=== PATIENT | female | born 1970 | race Two or more races ===

== ENCOUNTER 2020-01-30 10:09 | Outpatient (REF) | payer OTHER, SELFPAY | END 2020-01-30 10:10 | disposition home or self-care (01) | LOC: HO.LAB 10:09 | PROVIDERS: PCP Internal Medicine; Visit Provider Internal Medicine | DX: Z20.828 Contact with and (suspected) exposure to other viral communicable diseases (principal) | CPT/HCPCS: 36415; 87635 ==

== ENCOUNTER 2020-02-19 15:07 | Outpatient (REF) | payer OTHER, SELFPAY | END 2020-02-19 15:08 | disposition home or self-care (01) | LOC: HO.LAB 15:07 | PROVIDERS: Visit Provider Nurse Practitioner Family | DX: N39.0 Urinary tract infection, site not specified (principal); R30.0 Dysuria | CPT/HCPCS: 87086; 87088; 87186 ==

== ENCOUNTER 2020-02-25 12:39 | Outpatient (REF) | payer OTHER, SELFPAY ==
--- NOTE | 2020-02-25 | US_ITS ---
EXAMINATION: US RETROPERITONEAL LIMITED (RENAL ONLY) CLINICAL INFORMATION: Renal stone, renal cyst. COMPARISON: CT abdomen and pelvis 12/18/2019. Renal ultrasound 10/10/2019 and 03/12/2019. TECHNIQUE: Real-time imaging of the kidneys. FINDINGS: RIGHT KIDNEY: 12.4 x 6.3 x 5.4 cm (SAG x AP x TRV). The kidney is normal in size, contour, and echogenicity. Renal cortical thickness is normal. There is mild pelvic fullness. There are numerous anechoic cysts. The largest cyst in the upper pole measuring 4.4 x 3.6 x 3.7 cm and a midpole measures 3.6 x 3.3 x 3.3 cm. There is a complex cyst in the [id number] pole measuring 3.0 x 2.2 x 2.8 cm. There are a few echogenic stones nonobstructive measuring 0.4 x 0.2 cm in midpole and 0.5 x 0.3 cm in the upper pole. LEFT KIDNEY: Surgically absent. US/US renal BI IMPRESSION: Multiple right renal cysts with a complex renal cyst [id number] pole.
== END 2020-02-25 12:40 | disposition home or self-care (01) ==
LOC: HO.US 12:39
PROVIDERS: PCP Internal Medicine; Visit Provider Urology
DX: N20.0 Calculus of kidney (principal); N28.1 Cyst of kidney, acquired
CPT/HCPCS: 76775

== ENCOUNTER → 2020-03-11 08:01 | Outpatient (BNVA) | payer OTHER, SELFPAY | PROVIDERS: PCP Internal Medicine; Referring Provider Internal Medicine; Visit Provider Surgery | DX: Z76.89 Persons encountering health services in other specified circumstances (principal) ==

== ENCOUNTER → 2020-03-13 08:34 | Outpatient (BNVA) | payer OTHER, SELFPAY | PROVIDERS: PCP Internal Medicine; Referring Provider Internal Medicine; Visit Provider Dietitian, Registered | DX: Z76.89 Persons encountering health services in other specified circumstances (principal) ==

== ENCOUNTER 2020-04-17 11:18 | Outpatient (REF) | payer OTHER, SELFPAY ==
[2020-04-17 11:38] LABS: Basophils Absolute Auto 0.1 X10*3/uL (0.0-0.2); Eosinophils Absolute Auto 0.1 X10*3/uL (0.0-0.4); Eosinophils Percent Auto 1.7 % (0-4); Hematocrit 44.2 % (37-47); Hemoglobin 14.9 g/dl (12.0-16.0); Imm Gran Abs Auto 0.01 X10*3/uL (0.00-0.03); Imm Gran Pct Auto 0.2 % (0.0-0.4); Lymphocytes Absolute Auto 2.1 X10*3/uL (1.2-4.9); Lymphocytes Percent Auto 35.2 % (20-40); MANUAL DIFF FLAG NO; Mean Corpuscular HGB Conc 33.7 g/dl (31.0-35.0); Mean Corpuscular Hemoglobin 33.3 pg (27.0-33.0); Mean Corpuscular Volume 98.9 fL (80-98); Mean Platelet Volume 9.6 fL (9.4-12.3); Monocytes Absolute Auto 0.3 X10*3/uL (0.1-1.2); Monocytes Percent Auto 5.5 % (2-11); Neutrophils Absolute Auto 3.3 X10*3/uL (2.0-8.3); Neutrophils Percent Auto 56.4 % (45-73); Platelet Count 278 X10*3/uL (160-400); Red Blood Count 4.47 X10*6/uL (4.20-5.50); Red Cell Distribution Width 11.5 % (11.0-16.0); White Blood Count 5.9 X10*3/uL (4.8-10.8)
[2020-04-17 12:04] LABS: Albumin Level 3.8 g/dL (3.5-5.0); Anion Gap 13 (12-20); Blood Urea Nitrogen 13 mg/dL (9-16); Carbon Dioxide 27 mmol/L (22-29); Chloride 105 mmol/L (96-108); Estimated Glomerular Filt Rate 56; Magnesium 1.8 mg/dL (1.6-2.6); Phosphorus 4.4 mg/dL (2.7-4.5); Potassium 4.6 mmol/l (3.3-5.1); Sodium 140 mmol/L (135-145)
[2020-04-17 12:23] LABS: Glucose Urine UA NEG (NEG); Leukocyte Esterase Urine 1+ (NEG); Nitrite Urine POS (NEG); PH 6.5 (5.0-8.0); Urine Blood TRACE (NEG); Urine Ketones NEG (NEG); Urine Protein NEG (NEG-TRACE)
[2020-04-17 12:25] LABS: Appearance Urine CLOUDY; Color Urine YELLOW
[2020-04-17 12:27] LABS: Vitamin D 25-OH Total 38.2 ng/mL (>30)
[2020-04-17 12:30] LABS: Creatinine Urine 108.79 mg/dL; Microalbum/Creatinine Ratio Ur 21.1 ug/mg cr; Protein/Creatinine Ratio, Ur 0.12 (<0.2); Total Protein Urine Random 13 mg/dL (<12)
[2020-04-17 12:40] LABS: Bacteria Urine 3+ /LPF; Squamous Epithelial Cell Urine 1+ /LPF
[2020-04-17 13:13] LABS: Renal w Reflex Lab Use Only Order verified
[2020-04-20 16:03] LABS: Calcium (PTHI) 9.3 mg/dL (8.6-10.4); PTHI 53 pg/mL (14-64)
== END 2020-04-17 11:19 | disposition home or self-care (01) ==
LOC: HO.LAB 11:18
PROVIDERS: PCP Internal Medicine; Visit Provider Internal Medicine Nephrology
DX: N20.0 Calculus of kidney (principal); I12.9 Hypertensive chronic kidney disease with stage 1 through stage 4 chronic kidney disease, or unspecified chronic kidney disease; N18.30 Chronic kidney disease, stage 3 unspecified
CPT/HCPCS: 36415; 80051; 81001; 81003; 82040; 82043; 82306; 82310; 82565; 83735; 83970; 84100; 84156; 84520; 85025; 87086; 87088; 87186

== ENCOUNTER → 2020-05-07 12:54 | Outpatient (BNVA) | payer OTHER, SELFPAY | PROVIDERS: PCP Internal Medicine; Visit Provider Surgery | DX: L57.4 Cutis laxa senilis (principal) | CPT/HCPCS: 99202 ==

== ENCOUNTER 2020-05-14 10:06 | Outpatient (REF) | payer OTHER, SELFPAY ==
--- NOTE | 2020-05-14 10:10 | US_ITS ---
EXAMINATION: US RETROPERITONEAL LIMITED (RENAL ONLY) CLINICAL INFORMATION: Tubulointerstitial nephritis, not specified is acute or chronic. COMPARISON: Renal ultrasound dated 02/25/2020 and 10/10/2019. CT abdomen and pelvis without contrast dated 12/18/2019. KUB dated 01/26/2017. X-ray abdomen dated 03/05/2013. TECHNIQUE: Real-time imaging of the kidneys. FINDINGS: RIGHT KIDNEY: 12.5 x 4.6 x 5.2 cm (SAG x AP x TRV). The kidney is normal in size, contour, and echogenicity. Renal cortical thickness is normal. No hydronephrosis. There are multiple anechoic cysts. The largest cyst upper pole measures 4.7 x 3.5 x 4.1 cm, midpole cyst measures 3.6 x 3.2 x 3.3 cm. There is a complex lower pole cyst measuring 2.7 x 2.4 x 2.5 cm. There is a central septation within. There are 2 echogenic stones measuring 0.7 in the midpole and 0.3 cm in the lower pole. No caliectasis seen. LEFT KIDNEY: Surgically removed. US/US renal BI IMPRESSION: 1. Multiple renal cysts. There is a lower pole cyst which appears complex with central septation. 2. Nonobstructive echogenic stones in the right kidney. 3. The left kidney has been surgically removed.
== END 2020-05-14 10:07 | disposition home or self-care (01) ==
LOC: HO.US 10:06
PROVIDERS: PCP Internal Medicine; Visit Provider Internal Medicine
DX: N12 Tubulo-interstitial nephritis, not specified as acute or chronic (principal)
CPT/HCPCS: 76775

== ENCOUNTER 2020-05-15 13:22 | Outpatient (REF) | payer OTHER, SELFPAY ==
[2020-05-15 13:29] LABS: MANUAL DIFF FLAG NO
[2020-05-15 14:27] LABS: Basophils Percent Auto 0.8 % (0-2); Eosinophils Percent Auto 0.8 % (0-4); Hematocrit 41.4 % (37-47); Hemoglobin 13.7 g/dl (12.0-16.0); Imm Gran Abs Auto 0.02 X10*3/uL (0.00-0.03); Imm Gran Pct Auto 0.4 % (0.0-0.4); Lymphocytes Absolute Auto 1.7 X10*3/uL (1.2-4.9); Lymphocytes Percent Auto 32.4 % (20-40); Mean Corpuscular HGB Conc 33.1 g/dl (31.0-35.0); Mean Corpuscular Hemoglobin 33.3 pg (27.0-33.0); Mean Corpuscular Volume 100.7 fL (80-98); Mean Platelet Volume 9.5 fL (9.4-12.3); Monocytes Absolute Auto 0.4 X10*3/uL (0.1-1.2); Monocytes Percent Auto 6.8 % (2-11); Neutrophils Percent Auto 58.8 % (45-73); Platelet Count 267 X10*3/uL (160-400); Red Blood Count 4.11 X10*6/uL (4.20-5.50); Red Cell Distribution Width 11.5 % (11.0-16.0); White Blood Count 5.2 X10*3/uL (4.8-10.8)
[2020-05-15 14:29] LABS: Glucose Urine UA NEG (NEG); Leukocyte Esterase Urine 1+ (NEG); Nitrite Urine POS (NEG); Specific Gravity - Urine 1.025 (1.005-1.025); Urine Blood 1+ (NEG); Urine Ketones NEG (NEG); Urine Protein NEG (NEG-TRACE)
[2020-05-15 14:34] LABS: Appearance Urine CLOUDY; Color Urine YELLOW
[2020-05-15 14:55] LABS: Alanine Aminotransferase 28 U/L (0-31); Albumin Level 3.6 g/dL (3.5-5.0); Alkaline Phosphatase 101 U/L (39-117); Anion Gap 13 (12-20); Aspartate Amino Transferase 19 U/L (5-31); Bilirubin Total 0.8 mg/dL (0.0-1.0); Blood Urea Nitrogen 16 mg/dL (9-16); Calcium 8.8 mg/dL (8.4-10.2); Carbon Dioxide 29 mmol/L (22-29); Chloride 106 mmol/L (96-108); Cholesterol 163 mg/dL; Estimated Glomerular Filt Rate 50; Glucose Fasting 98 mg/dL (60-99); HDL Cholesterol 52 mg/dL; LDL Cholesterol Calculated 96 mg/dl; Potassium 4.9 mmol/l (3.3-5.1); Sodium 143 mmol/L (135-145); Total Protein 6.1 g/dL (6.5-8.0); Triglycerides 75 mg/dL
[2020-05-15 15:17] LABS: TSH reflex Free T4 0.82 mIU/mL (0.32-4.0); Vitamin D 25-OH Total 31.3 ng/mL (>30)
[2020-05-15 15:22] LABS: Bacteria Urine 2+ /LPF; RBC Urine 0-2 /HPF (0); Squamous Epithelial Cell Urine TRACE /LPF
[2020-05-15 15:24] LABS: Calcium Oxalate Crystals Urine 1+ /LPF
[2020-05-15 15:45] LABS: Folate 6.5 ng/mL (> or = 4.0)
[2020-05-15 16:38] LABS: Vitamin B12 > 2000 pg/mL (200-900)
== END 2020-05-15 13:23 | disposition home or self-care (01) ==
LOC: HO.LAB 13:22
PROVIDERS: PCP Internal Medicine; Visit Provider Internal Medicine
DX: I10 Essential (primary) hypertension (principal); E78.5 Hyperlipidemia, unspecified; E66.3 Overweight; G57.30 Lesion of lateral popliteal nerve, unspecified lower limb; E55.9 Vitamin D deficiency, unspecified
CPT/HCPCS: 36415; 80053; 80061; 81001; 81003; 82306; 82607; 82746; 84443; 85025; 87086; 87088; 87186

== ENCOUNTER 2020-05-25 15:04 | Outpatient (REF) | payer OTHER, SELFPAY ==
[2020-05-25 16:06] LABS: Glucose Urine UA NEG (NEG); Leukocyte Esterase Urine 1+ (NEG); Nitrite Urine NEG (NEG); UACC Culture Trigger YES; Urine Blood 1+ (NEG); Urine Ketones NEG (NEG); Urine Protein NEG (NEG-TRACE)
[2020-05-25 16:19] LABS: Albumin Level 3.8 g/dL (3.5-5.0); Anion Gap 11 (12-20); Blood Urea Nitrogen 16 mg/dL (9-16); Calcium 8.6 mg/dL (8.4-10.2); Carbon Dioxide 29 mmol/L (22-29); Chloride 106 mmol/L (96-108); Estimated Glomerular Filt Rate > 60; Phosphorus 3.7 mg/dL (2.7-4.5); Potassium 4.8 mmol/l (3.3-5.1); Sodium 141 mmol/L (135-145)
[2020-05-25 16:39] LABS: Appearance Urine CLOUDY; Color Urine YELLOW
[2020-05-25 16:39] LABS: Renal w Reflex Lab Use Only Order verified
[2020-05-25 16:45] LABS: Bacteria Urine 4+ /LPF; Squamous Epithelial Cell Urine 1+ /LPF; WBC Urine 50-75 /HPF (0-4)
== END 2020-05-25 15:05 | disposition home or self-care (01) ==
LOC: HO.LAB 15:04
PROVIDERS: PCP Internal Medicine; Visit Provider Internal Medicine Nephrology
DX: N20.0 Calculus of kidney (principal); I12.9 Hypertensive chronic kidney disease with stage 1 through stage 4 chronic kidney disease, or unspecified chronic kidney disease; N18.30 Chronic kidney disease, stage 3 unspecified; N13.30 Unspecified hydronephrosis; R30.0 Dysuria
CPT/HCPCS: 36415; 80051; 81001; 81003; 82040; 82306; 82310; 82565; 83735; 84100; 84520; 87086; 87088; 87186

== ENCOUNTER 2020-05-27 09:56 | Outpatient (REF) | payer OTHER, SELFPAY ==
[2020-05-27 10:26] LABS: Total Volume 24 Hour Urine 1025 mL
[2020-05-27 11:32] LABS: Creatinine, mg/dL 93.29; Phosphorus mg/dL 44.8 mg/dL; Phosphorus, 24 Hr Urine 0.5 G/Day (0.4-1.3); Sodium 24 Hr Urine 109.7 mmol/Day (40-220)
[2020-05-27 11:54] LABS: Creatinine, mg/dL 93.83; Uric Acid, 24 Hr Urine 324.9 mg/Day (250-750); Uric Acid, mg/dL 31.7 mg/dL
[2020-05-28 16:47] LABS: Calcium, 24 Hr Urine 174 mg/24 h; Calcium/Creatinine Ratio 168 mg/g creat (30-275); Creatinine 24Hr Urine 1.04 g/24 h (0.50-2.15)
[2020-05-31 10:28] LABS: 24hr Urine Total Volume 1025 mL/24 h; Oxalic Acid 24 Urine 18.5 mg/24 h (3.6-38.0)
[2020-06-04 14:22] LABS: 24hr Urine Total Volume 1025 mL; Citric Acid, 24hr Urine 55 mg/24 h (100-1300); Citric Acid/Creat Ratio 24U 53 mg/g creat (180-1070); Creatinine, 24U 1.05 g/24 h (0.50-2.15)
== END 2020-05-27 09:57 | disposition home or self-care (01) ==
LOC: HO.LNP 09:56
PROVIDERS: Visit Provider Internal Medicine Nephrology
DX: I12.9 Hypertensive chronic kidney disease with stage 1 through stage 4 chronic kidney disease, or unspecified chronic kidney disease (principal); N18.30 Chronic kidney disease, stage 3 unspecified; N13.2 Hydronephrosis with renal and ureteral calculous obstruction
CPT/HCPCS: 82340; 82507; 83945; 84105; 84300; 84560

== ENCOUNTER → 2020-06-12 08:34 | Outpatient (BNVA) | payer OTHER, SELFPAY | PROVIDERS: PCP Internal Medicine; Visit Provider Physician Assistant ==

== ENCOUNTER → 2020-06-25 09:56 | Outpatient (BNVA) | payer OTHER, SELFPAY | PROVIDERS: Visit Provider Urology | DX: N20.0 Calculus of kidney (principal) | CPT/HCPCS: 99202 ==

== ENCOUNTER 2020-07-06 11:04 | Day surgery (SDC) | payer OTHER, SELFPAY ==
[2020-07-01 12:39] VITALS: BMI 25.3
--- NOTE | ~2020-07-06 | FL_ITS ---
EXAMINATION: XR FLUOROSCOPY WITH IMAGES CLINICAL INFORMATION: Right retrograde pyelogram COMPARISON: CT 12/18/2019. Ultrasound 05/14/2020. TECHNIQUE: Fluoroscopy performed by Dr. Tomy Richter. Fluoroscopy time: 44.6 seconds Images: 2 FINDINGS: On the provided images there is a right ureteral stent in place. Left pelvic phlebolith. Small amount of contrast in the bladder noted. Right abdominal surgical clips. FL/FL guidance in OR IMPRESSION: Right ureteral stent in place. Please refer to procedural report for further information.
[2020-07-06 13:05] LABS: UPreg QC Valid YES; Urine Pregnancy NEGATIVE (NEGATIVE)
[2020-07-06 13:17] VITALS: BP 115/79; PULSE 63; RESP 18; TEMP 36.2; O2SAT 98
[2020-07-06] MEDS: levoFLOXacin 500 MG TABLET PO (13:25)
[2020-07-06] MEDS: Acetaminophen 325 MG TABLET 650 MG PO (13:25)
[2020-07-06] MEDS: Lactated Ringers 1,000 ML 50 ML IV (13:44)
--- NOTE | 2020-07-06 14:54 | MHC.SHP ---
Pre-Procedural Eval Section A The patient is an INPATIENT: No Changes since office visit: No Cold of Flu in the past 2 weeks, No New Medical Problems, No Changes in Medication and No Patient answered all questions The History & Physical has been completed within 30 days and I have reviewed it.: Yes Section B Chief Complaint: kidney stone Allergies: Allergies Allergy/AdvReac Type Severity Reaction Status Date / Time No Known Allergies Allergy Verified 06/30/20 16:03 Plan Diagnosis/Plan: Unchanged I have reviewed the history and physical and performed a pertinent physical examination on my patient. No changes have occurred unless specified. Right retrograde, ureteroscopy, laser lithotripsy, stent placement
--- NOTE | 2020-07-06 14:54 | HO.ANESPROP2 ---
[facility] Active Problems Active Problems: All Active Problems (Updated 07/01/20 @ 12:35 by Elisabeth Membreno) Urinary tract infection (Acute) Dysuria (Acute) Skin laxity (Acute) Nephrolithiasis (Acute) History of gastric bypass (Acute ~2008) Dyspareunia, female (Acute) Painful sexual intercourse (Acute) Dyspareunia (Acute) Pyelonephritis (Acute) Ingrown toenail (Acute) Iron deficiency anemia (Acute) Overweight (BMI 25.0-29.9) (Acute) Major depression, recurrent (Acute) Anxiety (Acute) Insomnia (Acute) Tremor (Acute) Orthostatic hypotension (Acute) Incisional hernia without obstruction or gangrene (Acute) Avascular necrosis of femoral head (Acute) Bilateral carpal tunnel syndrome (Acute) Peroneal neuropathy (Acute) Lumbar degenerative disc disease (Acute) Vitamin D deficiency (Acute) GERD (gastroesophageal reflux disease) (Acute) Migraine (Acute) Hyperlipidemia (Acute) Past Medical History Medical History (Updated 07/01/20 @ 12:35 by Elisabeth Membreno) Anxiety Avascular necrosis of femoral head Bilateral carpal tunnel syndrome Dyspareunia Dyspareunia, female GERD (gastroesophageal reflux disease) Hx of schizophrenia Hyperlipidemia Incisional hernia without obstruction or gangrene Ingrown toenail Insomnia Iron deficiency anemia Lumbar degenerative disc disease Major depression, recurrent Migraine Orthostatic hypotension MIGUEL (obstructive sleep apnea) Overweight (BMI 25.0-29.9) Painful sexual intercourse Panic attacks Peroneal neuropathy PTSD (post-traumatic stress disorder) Pyelonephritis Tremor Vitamin D deficiency Family History Family History Father Gastric cancer Mother Breast cancer Maternal Grandmother Breast cancer Maternal Aunt Breast cancer Surgical History Surgical History (Updated 07/01/20 @ 12:33 by Elisabeth Membreno) H/O left nephrectomy History of bilateral breast reduction surgery History of bladder repair surgery (~03/2015) History of bladder surgery (~10/2009) History of cholecystectomy History of endoscopy (~06/2016) History of gastric bypass (~2008) History of hernia repair (~03/29/10) History of hysterectomy History of incisional hernia repair (~1999) Hx of umbilical hernia repair (~1999) S/P cystoscopy (~07/30/12) S/P laparoscopic sleeve gastrectomy S/P panniculectomy Social History Social History Alcohol intake: never Smoking Status: Never smoker Advance Directives: No Advance Directives Information Provided: No Advance Directives on File: No Meds Allergies Allergy/AdvReac Type Severity Reaction Status Date / Time No Known Allergies Allergy Verified 06/30/20 16:03 Active Medications: Current Medications Generic Name Dose Route Start Last Admin Trade Name Freq PRN Reason Stop Dose Admin Fentanyl 50 mcg 07/06/20 13:32 Fentanyl Citrate/Pf 100 Mcg/2 Ml Vial IVPUSH Q5M PRN Pain, Severe (Pain Scale 7-10) Lactated Ringer's 1,000 mls @ 50 mls/hr 07/06/20 13:45 07/06/20 13:44 Lr IV 50 mls/hr .Q20H JYOTHI Administration Promethazine HCl 12.5 mg/ 50.5 mls @ 202 mls/hr 07/06/20 13:32 Sodium Chloride IV ONCE PRN Nausea and Vomiting Oxycodone HCl 5 mg 07/06/20 13:32 Oxycodone Hcl Immed Release 5 Mg Tablet PO ONCE PRN Pain, Severe (Pain Scale 7-10) Home Medications Medication Instructions Recorded Confirmed Last Taken Type albuterol sulfate 2.5 mg/0.5 mL 5 mg INHALATION Q4H 02/06/20 06/30/20 Unknown History solution for nebulization benztropine 1 mg tablet 1 mg PO BID PRN 02/06/20 06/30/20 Unknown History calcium citrate 250 mg PO DAILY 02/06/20 06/30/20 Unknown History cholecalciferol (vitamin D3) 25 25 mcg PO DAILY 02/06/20 06/30/20 Unknown History mcg (1,000 unit) capsule clonazepam 0.5 mg tablet 0.5 mg PO TID PRN 02/06/20 06/30/20 07/06/20 History duloxetine 60 mg capsule,delayed 60 mg PO DAILY 02/06/20 06/30/20 Unknown History release fludrocortisone 0.1 mg tablet 0.2 mg PO DAILY 02/06/20 06/30/20 Unknown History haloperidol 10 mg tablet 10 mg PO BEDTIME 02/06/20 06/30/20 07/06/20 History lactulose 10 gram/15 mL oral See Rx Instructions PO BEDTIME PRN 02/06/20 06/30/20 Unknown History solution mecobalamin (vitamin B12) 1,000 1,000 mcg SUBLINGUAL DAILY 02/06/20 06/30/20 Unknown History mcg disintegrating tablet,sublingual trazodone 100 mg tablet 100 mg PO BEDTIME PRN 02/06/20 06/30/20 Unknown History multivitamin 1 tab PO DAILY 06/12/20 06/30/20 Unknown History gabapentin 100 mg capsule 100 mg PO TID 06/25/20 06/30/20 07/06/20 History haloperidol 5 mg tablet 5 mg PO BID 06/25/20 06/30/20 Unknown History midodrine 5 mg tablet 5 mg PO TID 06/25/20 06/30/20 07/06/20 History prazosin 1 mg capsule 1 mg PO BEDTIME 06/25/20 06/30/20 Unknown History sumatriptan succinate 50 mg tablet 50 mg PO BID PRN 06/25/20 06/30/20 Unknown History Exam Exam Date and Time: July 06, 2020 1454 Height,Weight and Vital Signs: Height 5 ft 3 in Weight 64.864 kg Last Vital Signs Temp 97.1 F 07/06/20 13:17 Pulse 63 07/06/20 13:17 Resp 18 07/06/20 13:17 BP 115/79 07/06/20 13:17 Pulse Ox 98 07/06/20 13:17 Pertinent Lab Results Pertinent Lab Results: Laboratory Tests 07/06/20 12:45 Urine Test NEGATIVE Airway Mallampati Class: II TM Dist: >3cm Neck ROM: Full Heart: RRR Lungs: CTA BL Assessment and Plan Assessment Anesthesia Assessment: Anesthesia Plan Discussed and Chart Reviewed Final Anesthetic Review NPO: Yes ASA Class: II Final Preanesthetic Review: No Changes in Pt Med Stat and Consent Obtained/Reviewed Patient Risk: Intermediate Procedure Risk: Intermediate Anesthetic Plan Anesthetic Plan: GA Disposition: Standard PACU
--- NOTE | 2020-07-06 15:28 | PM.OP ---
Brief Operative Note Date of Service: 07/06/20 Pre-op diagnosis: Renal stone Post-op diagnosis: same Procedure: Cystoscopy, right retrograde, dilatation right ureteric orifice under fluoroscopy, right flexible ureteroscopy with stone basketing, right stent placement Implants: Right 6 x 22 cm double-J ureteric stent Surgeon: Tomy Richter MD Anesthesia: GLMA and MAC Estimated blood loss (mL): 0 Pathology: other (stone) Condition: stable Disposition: same day
--- NOTE | 2020-07-06 15:32 | W.PM.OPN ---
Operative Note Operative Note Date of Service: 07/06/20 Narrative: PreOperative Diagnosis: Right renal stone Post Operative Diagnosis: Right renal stone Procedure: - right cystoscopy, retrograde - right dilatation of ureteric orifice under fluoroscopy - right ureteroscopy, stone basketing - stent placement Surgeon: Dr Tomy Richter Anesthesia: General Indications for procedure: The pleasant 49-year-old female. Has stone in her right renal pelvis. Solitary right kidney. Left kidney had been removed previously for stones many years ago. She is aware the risks and benefits. Procedure: After informed consent was verified patient was brought to the operating placed in supine position. Anesthesia was administered per protocol. Patient was placed in modified dorsal lithotomy position and prepped and draped in a sterile fashion. Safety pause time-out and side of surgery confirmed. Antibiotics confirmed. A 22 Mongolian cystoscope was placed per urethra. The bladder was emptied. The right ureteric orifice was seen in normal position. Right ureteric orifice was cannulated retrograde examination performed. No filling defects seen of the ureter or the kidney. A Sensor wire was placed up to the right renal pelvis. The cystoscope was removed. The ureteric orifice cannulated with the inner cannula from a ureteric access sheath. The ureteric access sheath was then placed. The inner cannula was removed. A flexible ureteral scope was placed. The kidney was examined it is entirety. Stone was found in the mid to lower pole. This was able to be basketed out directly without need for laser. Two passes were made in the majority of the stone fragment pieces were removed. After this was completed sensor guidewire was placed back in the renal pelvis. The flexible ureteral scope was removed. The ureteric access sheath was removed. A 6 Mongolian by 22 cm stent with double-J was placed. Good coil was seen within the bladder. The bladder was emptied. She tolerated procedure well was extubated in the operating room and transferred in a stable condition to the recovery area. Pathology: Stone Drains: Ureteric double-J stent
[2020-07-06 15:39] VITALS: BP 122/61; PULSE 70; RESP 16; TEMP 36.5; O2SAT 100
[2020-07-06 15:45] VITALS: BP 113/59; BP 118/66; PULSE 72; PULSE 74; RESP 16; O2SAT 100
[2020-07-06 15:50] VITALS: BP 119/81; PULSE 77; RESP 16; O2SAT 99
[2020-07-06] MEDS: Phenazopyridine HCL 100 MG TABLET PO (15:52)
[2020-07-06 16:10] VITALS: BP 128/70; PULSE 58; RESP 16; TEMP 36.3; O2SAT 99
== END 2020-07-06 16:31 ==
LOC: HO.SSS 11:04
PROVIDERS: Anesthesiology; PCP Internal Medicine; Visit Provider Urology
PROC: (CPT 52356; principal; 2020-07-06 12:00)
DX: N20.0 Calculus of kidney (principal); Z90.5 Acquired absence of kidney; D50.9 Iron deficiency anemia, unspecified; I95.1 Orthostatic hypotension; F32.9 Major depressive disorder, single episode, unspecified; Z98.84 Bariatric surgery status; G47.33 Obstructive sleep apnea (adult) (pediatric); Z79.899 Other long term (current) drug therapy
CPT/HCPCS: 52356; 81025; 82365; 88300; C1758; C1769; C1894; J1100; J2250; J2405; J3010; Q9967

== ENCOUNTER → 2020-07-14 12:50 | Outpatient (BNVA) | payer OTHER, SELFPAY | PROVIDERS: PCP Internal Medicine; Visit Provider Urology | DX: Z46.6 Encounter for fitting and adjustment of urinary device (principal) | CPT/HCPCS: 52310; 99212 ==

== ENCOUNTER → 2020-08-03 07:46 | Outpatient (BNVA) | payer OTHER, SELFPAY | PROVIDERS: PCP Internal Medicine; Visit Provider Advanced Practice Midwife ==

== ENCOUNTER 2020-11-09 08:48 | Outpatient (REF) | payer OTHER, SELFPAY ==
[2020-11-09 09:31] LABS: MANUAL DIFF FLAG NO
[2020-11-09 09:38] LABS: Basophils Percent Auto 0.7 % (0-2); Eosinophils Absolute Auto 0.1 X10*3/uL (0.0-0.4); Eosinophils Percent Auto 1.7 % (0-4); Hematocrit 43.2 % (37-47); Hemoglobin 14.1 g/dl (12.0-16.0); Imm Gran Abs Auto 0.01 X10*3/uL (0.00-0.03); Imm Gran Pct Auto 0.2 % (0.0-0.4); Lymphocytes Absolute Auto 2.1 X10*3/uL (1.2-4.9); Lymphocytes Percent Auto 34.8 % (20-40); Mean Corpuscular HGB Conc 32.6 g/dl (31.0-35.0); Mean Corpuscular Hemoglobin 32.9 pg (27.0-33.0); Mean Corpuscular Volume 100.9 fL (80-98); Mean Platelet Volume 9.5 fL (9.4-12.3); Monocytes Absolute Auto 0.5 X10*3/uL (0.1-1.2); Monocytes Percent Auto 7.7 % (2-11); Neutrophils Absolute Auto 3.3 X10*3/uL (2.0-8.3); Neutrophils Percent Auto 54.9 % (45-73); Platelet Count 242 X10*3/uL (160-400); Red Blood Count 4.28 X10*6/uL (4.20-5.50); Red Cell Distribution Width 12.4 % (11.0-16.0)
[2020-11-09 09:57] LABS: Alanine Aminotransferase 26 U/L (0-31); Albumin Level 3.7 g/dL (3.5-5.0); Alkaline Phosphatase 115 U/L (39-117); Anion Gap 12 (12-20); Aspartate Amino Transferase 23 U/L (5-31); Bilirubin Total 0.6 mg/dL (0.0-1.0); Blood Urea Nitrogen 16 mg/dL (9-16); Carbon Dioxide 28 mmol/L (22-29); Chloride 108 mmol/L (96-108); Cholesterol 183 mg/dL; Estimated Glomerular Filt Rate 53; Glucose Fasting 96 mg/dL (60-99); HDL Cholesterol 70 mg/dL; LDL Cholesterol Calculated 97 mg/dl; Potassium 4.5 mmol/L (3.3-5.1); Sodium 143 mmol/L (135-145); Total Protein 6.4 g/dL (6.5-8.0); Triglycerides 84 mg/dL
[2020-11-09 10:10] LABS: Glucose Urine UA NEG (NEG); Leukocyte Esterase Urine TRACE (NEG); Nitrite Urine POS (NEG); Specific Gravity - Urine 1.025 (1.005-1.025); UACC Culture Trigger YES; Urine Blood NEG (NEG); Urine Ketones NEG (NEG); Urine Protein NEG (NEG-TRACE)
[2020-11-09 10:11] LABS: Color Urine YELLOW
[2020-11-09 10:12] LABS: Appearance Urine HAZY
[2020-11-09 10:19] LABS: TSH reflex Free T4 0.94 uIU/mL (0.32-4.0); Vitamin D 25-OH Total 31.3 ng/mL (>30)
[2020-11-09 10:27] LABS: Bacteria Urine 4+ /LPF; Calcium Oxalate Crystals Urine 1+ /LPF; RBC Urine 0 /HPF (0); Squamous Epithelial Cell Urine 2+ /LPF
== END 2020-11-09 08:49 | disposition home or self-care (01) ==
LOC: HO.LAB 08:48
PROVIDERS: PCP Internal Medicine; Visit Provider Internal Medicine
DX: Z00.00 Encounter for general adult medical examination without abnormal findings (principal); E55.9 Vitamin D deficiency, unspecified; E78.00 Pure hypercholesterolemia, unspecified; E66.3 Overweight; K21.9 Gastro-esophageal reflux disease without esophagitis; K59.00 Constipation, unspecified; M51.36 Other intervertebral disc degeneration, lumbar region
CPT/HCPCS: 36415; 80053; 80061; 81001; 81003; 82306; 84443; 85025; 87086

== ENCOUNTER → 2020-11-11 14:35 | Outpatient (BNVA) | payer OTHER, SELFPAY | PROVIDERS: PCP Internal Medicine; Referring Provider Internal Medicine; Visit Provider Physician Assistant | DX: E66.3 Overweight (principal); Z98.84 Bariatric surgery status; Z68.27 Body mass index [BMI] 27.0-27.9, adult | CPT/HCPCS: 99212 ==

== ENCOUNTER 2020-11-19 12:24 | Outpatient (REF) | payer OTHER, SELFPAY ==
--- NOTE | ~2020-11-19 | MM_ITS ---
EXAMINATION: MM DIAGNOSTIC DIGITAL BREAST TOMOSYNTHESIS, BILATERAL CLINICAL INFORMATION: Due for yearly. Also follow-up probable benign decreasing calcifications 1:00 right breast mid depth. Remote history reduction mammoplasty. Family history breast cancer, sister. The lifetime risk of breast cancer based on the Tyrer-Cuzick Model is 18%. COMPARISON: Mammography: 11/19/2019, 02/01/2019, 08/03/2018, 07/26/2018 (BI-RADS 0), 07/13/2017 TECHNIQUE: Digital breast tomosynthesis is performed in both the craniocaudal and mediolateral oblique views along with computer-aided detection (CAD). Synthesized 2D images are generated from the tomosynthesis. Additional views are obtained: Right CC, magnification right CC, magnification right LM. FINDINGS: There are scattered areas of fibroglandular density (ACR BI-RADS breast composition Category b). Parenchymal pattern is similar to prior exams. No developing density or interval mass or architectural abnormality. Small benign nodule 1:00 right breast is stable. The axilla and skin contours are unremarkable. The right breast calcifications for follow-up 1:00 position are resolved. They were decreasing on prior diagnostic mammography. Other coarse calcifications just posterior to this group are also resolved. There are no suspicious calcifications remaining. Results are provided to the patient at time of visit by the technologist. MM/MM tomosynthesis diagnostic BI IMPRESSION: 1. No mammographic evidence of malignancy. 2. The right breast calcifications under surveillance show continued decrease and are benign. ASSESSMENT: BI-RADS 2: Benign RECOMMENDATION: Routine annual mammography screening. This patient's information was entered into a reminder system with a target due date for their next mammogram.
== END 2020-11-19 12:25 | disposition home or self-care (01) ==
LOC: HO.MAMMO 12:24
PROVIDERS: Visit Provider Internal Medicine
DX: R92.1 Mammographic calcification found on diagnostic imaging of breast (principal)
CPT/HCPCS: 77062; 77066

== ENCOUNTER 2020-12-02 15:13 | Outpatient (REF) | payer OTHER, SELFPAY ==
--- NOTE | ~2020-12-02 | US_ITS ---
EXAMINATION: US RETROPERITONEAL LIMITED (RENAL ONLY) CLINICAL INFORMATION: Calculus of kidney. COMPARISON: Ultrasound renal 05/14/2020 and 02/25/2020. TECHNIQUE: Real-time imaging of the kidneys. FINDINGS: RIGHT KIDNEY: 13.7 x 4.8 x 6.0 cm (SAG x AP x TRV). The kidney is normal in size, contour, and echogenicity. Renal cortical thickness is normal. No renal hydronephrosis. There are multiple anechoic cysts seen. An upper pole cyst measures 4.7 x 3.8 x 4.3 cm. The midpole cyst medially measures 3.8 x 3.6 x 3.5 cm. There is a septated cyst in the lower pole measuring 3.4 x 2.5 x 2.5 cm. A nonobstructive echogenic stone is seen in lower pole measuring 0.8 x 0.5 x 0.9 cm LEFT KIDNEY: Removed. US/US renal BI IMPRESSION: Multiple right renal cysts. There is an echogenic nonobstructive stone lower pole. The right kidney has been surgically removed.
== END 2020-12-02 15:14 | disposition home or self-care (01) ==
LOC: HO.US 15:13
PROVIDERS: Visit Provider Urology
DX: N20.0 Calculus of kidney (principal)
CPT/HCPCS: 76775

== ENCOUNTER → 2020-12-14 13:59 | Outpatient (BNVA) | payer OTHER, SELFPAY | PROVIDERS: PCP Internal Medicine | DX: N20.0 Calculus of kidney (principal) | CPT/HCPCS: 99212 ==

== ENCOUNTER → 2020-12-23 13:37 | Outpatient (BNVA) | payer OTHER, SELFPAY | PROVIDERS: Referring Provider Internal Medicine; Visit Provider Dietitian, Registered | DX: E66.3 Overweight (principal); Z68.26 Body mass index [BMI] 26.0-26.9, adult | CPT/HCPCS: 97803 ==

== ENCOUNTER → 2020-12-30 13:00 | Outpatient (BNVA) | payer OTHER, SELFPAY | PROVIDERS: PCP Internal Medicine; Visit Provider Nurse Practitioner Family | DX: M53.3 Sacrococcygeal disorders, not elsewhere classified (principal); M54.16 Radiculopathy, lumbar region | CPT/HCPCS: 99212 ==

== ENCOUNTER 2021-01-12 12:09 | Outpatient (REF) | payer OTHER, SELFPAY ==
[2021-01-12 13:03] LABS: Appearance Urine HAZY; Color Urine YELLOW; Glucose Urine UA NEG (NEG); Leukocyte Esterase Urine 1+ (NEG); Nitrite Urine NEG (NEG); Specific Gravity - Urine 1.025 (1.005-1.025); UACC Culture Trigger YES; Urine Blood NEG (NEG); Urine Ketones NEG (NEG); Urine Protein NEG (NEG-TRACE)
[2021-01-12 13:19] LABS: Bacteria Urine 4+ /LPF; RBC Urine 0 /HPF (0); Squamous Epithelial Cell Urine 1+ /LPF
== END 2021-01-12 12:10 | disposition home or self-care (01) ==
LOC: HO.LAB 12:09
PROVIDERS: PCP Internal Medicine; Visit Provider Internal Medicine
DX: R82.90 Unspecified abnormal findings in urine (principal)
CPT/HCPCS: 81001; 87086

== ENCOUNTER → 2021-01-13 11:46 | Outpatient (BNVA) | payer OTHER, SELFPAY | PROVIDERS: PCP Internal Medicine; Visit Provider Nurse Practitioner Family | DX: Z12.11 Encounter for screening for malignant neoplasm of colon (principal); K59.03 Drug induced constipation; K21.9 Gastro-esophageal reflux disease without esophagitis | CPT/HCPCS: 99202 ==

== ENCOUNTER → 2021-02-19 12:29 | Outpatient (BNVA) | payer OTHER, SELFPAY | PROVIDERS: PCP Internal Medicine; Referring Provider Internal Medicine; Visit Provider Nurse Practitioner Family | DX: K59.03 Drug induced constipation (principal); R10.13 Epigastric pain; K21.9 Gastro-esophageal reflux disease without esophagitis; D50.9 Iron deficiency anemia, unspecified; E78.5 Hyperlipidemia, unspecified; E55.9 Vitamin D deficiency, unspecified; I10 Essential (primary) hypertension; E78.00 Pure hypercholesterolemia, unspecified; Z90.49 Acquired absence of other specified parts of digestive tract; Z90.3 Acquired absence of stomach [part of] | CPT/HCPCS: 99212 ==

== ENCOUNTER 2021-03-08 08:23 | Outpatient (REF) | payer OTHER, SELFPAY ==
--- NOTE | ~2021-03-08 | US_ITS ---
EXAMINATION: US RETROPERITONEAL LIMITED (RENAL ONLY) CLINICAL INFORMATION: Calculus of kidney. COMPARISON: Renal ultrasound 12/02/2020 and 05/14/2020. CT abdomen and pelvis 12/18/2019. TECHNIQUE: Real-time imaging of the kidneys. FINDINGS: RIGHT KIDNEY: 13.3 x 5.0 x 5.2 cm (SAG x AP x TRV). The kidney is normal in size, contour, and echogenicity. Renal cortical thickness is normal. There are multiple right renal cysts. There is a 3 x 2.5 x 2.9 cm complex cyst in the lower pole with several septations. This was not appreciated on most recent ultrasound November 2020. This measured 2.7 x 2.4 x 2.5 cm on previous ultrasound May 2020 and septations may have increased as well. The remainder of the cysts represent simple cysts. Largest simple cyst measures 4.9 x 3.5 x 1.4 cm in the upper pole. No renal calculi or hydronephrosis. The previously identified right lower pole renal stone(s) is not appreciated on the current exam. LEFT KIDNEY: Surgically absent. US/US renal BI IMPRESSION: Innumerable right renal cysts. There is a 3.0 x 2.5 x 2.9 cm complex cyst in the midpole with several septations. This appears increased in size and septations appear increased compared to previous exam May 2020. The remainder of the cysts represent simple cysts. The previously identified right renal stone(s) is not appreciated.
== END 2021-03-08 08:24 | disposition home or self-care (01) ==
LOC: HO.US 08:23
PROVIDERS: PCP Internal Medicine
DX: N20.0 Calculus of kidney (principal)
CPT/HCPCS: 76775

== ENCOUNTER → 2021-04-02 08:15 | Outpatient (BNVA) | payer OTHER, SELFPAY | PROVIDERS: PCP Internal Medicine | DX: N20.0 Calculus of kidney (principal); N28.1 Cyst of kidney, acquired | CPT/HCPCS: 99212 ==

== ENCOUNTER → 2021-04-14 10:42 | Outpatient (BNVA) | payer OTHER, SELFPAY | PROVIDERS: PCP Internal Medicine; Referring Provider Physician Assistant; Visit Provider Dietitian, Registered | DX: E66.3 Overweight (principal); E63.8 Other specified nutritional deficiencies | CPT/HCPCS: 97803 ==

== ENCOUNTER 2021-04-14 12:54 | Outpatient (REF) | payer OTHER, SELFPAY ==
[2021-04-14 13:31] LABS: COVID-19 Test Negative (Negative)
== END 2021-04-14 12:55 | disposition home or self-care (01) ==
LOC: HO.LAB 12:54
PROVIDERS: Visit Provider Internal Medicine
DX: Z20.822 Contact with and (suspected) exposure to COVID-19 (principal)
CPT/HCPCS: 36415; 87635; C9803

== ENCOUNTER → 2021-04-16 10:49 | Outpatient (BNVA) | payer OTHER, SELFPAY | PROVIDERS: PCP Internal Medicine; Referring Provider Internal Medicine; Visit Provider Nurse Practitioner Family | DX: Z12.11 Encounter for screening for malignant neoplasm of colon (principal); K59.03 Drug induced constipation; K21.9 Gastro-esophageal reflux disease without esophagitis | CPT/HCPCS: 99212 ==

== ENCOUNTER 2021-04-20 11:35 | Outpatient (REF) | payer OTHER, SELFPAY | END 2021-04-20 11:36 | disposition home or self-care (01) | LOC: HO.LNP 11:35 | PROVIDERS: Visit Provider Nurse Practitioner Family | DX: K21.9 Gastro-esophageal reflux disease without esophagitis (principal) | CPT/HCPCS: 87338 ==

== ENCOUNTER 2021-04-20 14:00 | Outpatient (RCR) | payer OTHER, SELFPAY ==
--- NOTE | 2021-05-05 14:49 | MHC.PT.DC ---
[facility] Portal Office [place] Office [place] Office [address] Dimitrios Chandler [address] [phone] F: [phone] F: [phone] F: [phone] F: [phone] Physical Therapy Discharge Report Diagnosis: RIGHT HIP PAIN Date of Surgery: na Date of Evaluation: 03/15/21 Date of Discharge: 05/05/21 Treatments to Date: 10 Cancellations to Date: 0 No Shows to Date: 0 Discharge Status: Patient Elected to Stop Discharge Summary: JEREMÍAS HAD MINIMAL SYMPTOM REDUCTION IN THERAPY. AT LAST ATTENDED VISIT SHE WAS VERY SHAKY, ANXIOUS AND THE TREATING THERAPIST WAS UNABLE TO PROGRESS TREATMENT. JEREMÍAS CHOSE TO NOT SCHEDULE FURTHER VISITS AT THAT TIME. SHE DOES HAVE A HOME PROGRAM OF GENTLE STRETCHES AND STRENGTHENING EXERCISES WHICH SHE MAY CONTINUE INDEPENDENTLY. Electronically signed by: CEZAR DE LOS SANTOS PT, DPT Please sign and return to therapist. Thank you for your referral.
== END 2021-05-05 14:49 | disposition home or self-care (01) ==
LOC: HO.PT 14:00
PROVIDERS: PCP Internal Medicine; Visit Provider Internal Medicine
DX: M51.36 Other intervertebral disc degeneration, lumbar region (principal)
CPT/HCPCS: 97110; 97140; 97162; 97530

== ENCOUNTER → 2021-05-10 14:27 | Outpatient (BNVA) | payer OTHER, SELFPAY | PROVIDERS: PCP Internal Medicine; Visit Provider Anesthesiology | DX: M46.1 Sacroiliitis, not elsewhere classified (principal); M47.816 Spondylosis without myelopathy or radiculopathy, lumbar region | CPT/HCPCS: 99212 ==

== ENCOUNTER → 2021-05-12 10:45 | Outpatient (BNVA) | payer OTHER, SELFPAY | PROVIDERS: PCP Internal Medicine; Referring Provider Physician Assistant; Visit Provider Dietitian, Registered | DX: E66.3 Overweight (principal) | CPT/HCPCS: 97803 ==

== ENCOUNTER → 2021-05-21 10:43 | Outpatient (BNVA) | payer OTHER, SELFPAY | PROVIDERS: PCP Internal Medicine; Referring Provider Internal Medicine; Visit Provider Nurse Practitioner Family | DX: K21.9 Gastro-esophageal reflux disease without esophagitis (principal); K59.09 Other constipation; K64.9 Unspecified hemorrhoids | CPT/HCPCS: 99212 ==

== ENCOUNTER 2021-06-03 10:13 | Outpatient (REF) | payer OTHER, SELFPAY ==
[2021-06-03 10:31] LABS: MANUAL DIFF FLAG NO
[2021-06-03 10:45] LABS: Basophils Absolute Auto 0.1 X10*3/uL (0.0-0.2); Basophils Percent Auto 0.9 % (0-2); Eosinophils Absolute Auto 0.1 X10*3/uL (0.0-0.4); Eosinophils Percent Auto 1.1 % (0-4); Hematocrit 46.6 % (37.0-47.0); Hemoglobin 15.4 g/dl (12.0-16.0); Imm Gran Abs Auto 0.01 X10*3/uL (0.00-0.03); Imm Gran Pct Auto 0.2 % (0.0-0.4); Lymphocytes Absolute Auto 1.7 X10*3/uL (1.2-4.9); Lymphocytes Percent Auto 30.4 % (20-40); Mean Corpuscular Hemoglobin 32.8 pg (27.0-33.0); Mean Corpuscular Volume 99.4 fL (80.0-98.0); Mean Platelet Volume 9.5 fL (9.4-12.3); Monocytes Absolute Auto 0.4 X10*3/uL (0.1-1.2); Neutrophils Absolute Auto 3.3 x10*3/uL (2.0-8.3); Neutrophils Percent Auto 60.4 % (45-73); Platelet Count 269 X10*3/uL (160-400); Red Blood Count 4.69 X10*6/uL (4.20-5.50); Red Cell Distribution Width 11.7 % (11.0-16.0); White Blood Count 5.5 X10*3/uL (4.8-10.8)
[2021-06-03 11:12] LABS: Alanine Aminotransferase 210 U/L (0-31); Albumin Level 4.1 g/dL (3.5-5.0); Alkaline Phosphatase 205 U/L (39-117); Anion Gap 12 (12-20); Aspartate Amino Transferase 118 U/L (5-31); Bilirubin Total 0.7 mg/dL (0.0-1.0); Blood Urea Nitrogen 17 mg/dL (9-16); Calcium 9.5 mg/dL (8.4-10.2); Carbon Dioxide 30 mmol/L (22-29); Chloride 102 mmol/L (96-108); Cholesterol 172 mg/dL; Estimated Glomerular Filt Rate 42; Glucose Fasting 99 mg/dL (60-99); HDL Cholesterol 60 mg/dL; LDL Cholesterol Calculated 93 mg/dl; Potassium 4.4 mmol/L (3.3-5.1); Sodium 140 mmol/L (135-145); Total Protein 7.1 g/dL (6.5-8.0); Triglycerides 95 mg/dL
[2021-06-03 11:18] LABS: Appearance Urine CLOUDY; Color Urine YELLOW; Glucose Urine UA NEG (NEG); Leukocyte Esterase Urine 1+ (NEG); Nitrite Urine NEG (NEG); PH 5.5 (5.0-8.0); Specific Gravity - Urine 1.025 (1.005-1.025); UACC Culture Trigger YES; Urine Blood NEG (NEG); Urine Ketones NEG (NEG); Urine Protein NEG (NEG-TRACE)
[2021-06-03 11:29] LABS: Erythrocyte Sedimentation Rate 7 MM/HR (0-20); Vitamin D 25-OH Total 36.9 ng/mL (>30)
[2021-06-03 11:51] LABS: Bacteria Urine 3+ /LPF; Mucus Urine 1+ /LPF; RBC Urine 0 /HPF (0); Squamous Epithelial Cell Urine 2+ /LPF
[2021-06-03 11:51] LABS: Folate 6.2 ng/mL (> or = 4.0); Vitamin B12 961 pg/mL (200-900)
== END 2021-06-03 10:14 | disposition home or self-care (01) ==
LOC: HO.LAB 10:13
PROVIDERS: Visit Provider Internal Medicine
DX: E78.00 Pure hypercholesterolemia, unspecified (principal); I10 Essential (primary) hypertension; G57.30 Lesion of lateral popliteal nerve, unspecified lower limb; R41.3 Other amnesia; M51.36 Other intervertebral disc degeneration, lumbar region; E55.9 Vitamin D deficiency, unspecified
CPT/HCPCS: 36415; 80053; 80061; 81001; 82306; 82607; 82746; 84443; 85025; 85652; 87086

== ENCOUNTER 2021-06-07 15:21 | Outpatient (REF) | payer OTHER, SELFPAY ==
[2021-06-07 16:41] LABS: Appearance Urine CLEAR; Color Urine YELLOW; Glucose Urine UA NEG (NEG); Leukocyte Esterase Urine TRACE (NEG); Nitrite Urine NEG (NEG); PH 5.5 (5.0-8.0); Specific Gravity - Urine 1.025 (1.005-1.025); UACC Culture Trigger YES; Urine Blood NEG (NEG); Urine Ketones NEG (NEG); Urine Protein NEG (NEG-TRACE)
[2021-06-07 16:59] LABS: Bacteria Urine 3+ /LPF; Hyaline Casts Urine 0-2 /LPF; RBC Urine 0-2 /HPF (0); Squamous Epithelial Cell Urine TRACE /LPF
[2021-06-08 10:08] LABS: HBS Num1 1.81 mIU/mL (0-7.99); HBc Num1 0.11 S/CO (0.00-0.79); HBsAGNum1 0.19 S/CO (0.00-0.99); Hepatitis B Core Antibody Nonreactive (Nonreactive); Hepatitis B Surface Antigen Negative (Negative); ~HepC Num1 0.14 S/CO (0.00-0.79); ~Hepatitis B Surface Antibody NONREACTIVE (Nonreactive); ~Hepatitis C Antibody Nonreactive (Nonreactive)
[2021-06-11 09:17] LABS: Hepatitis A Antibody IgM 0.22 Index (0-0.79); ~Hepatitis A Antibody IgM Nonreactive (Nonreactive)
== END 2021-06-07 15:22 | disposition home or self-care (01) ==
LOC: HO.LAB 15:21
PROVIDERS: PCP Internal Medicine; Visit Provider Internal Medicine
DX: R74.01 Elevation of levels of liver transaminase levels (principal)
CPT/HCPCS: 36415; 81001; 86704; 86706; 86709; 86803; 87086; 87340

== ENCOUNTER → 2021-06-16 08:10 | Outpatient (BNVA) | payer OTHER, SELFPAY | PROVIDERS: Visit Provider Physician Assistant ==

== ENCOUNTER 2021-06-25 09:38 | Outpatient (REF) | payer OTHER, SELFPAY ==
[2021-06-25 12:03] LABS: C Reactive Protein 0.11 mg/dL (< or = 0.50)
[2021-06-25 12:23] LABS: HIV AB/AG Nonreactive (Nonreactive); HIV Num 1 0.13 S/CO (0.00-0.99)
[2021-06-25 12:25] LABS: Ferritin 370 ng/mL (10-250)
[2021-06-28 13:31] LABS: Ceruloplasmin 33 mg/dL (18-53)
[2021-06-29 15:06] LABS: Mitochondrial Antibodies NEGATIVE (NEGATIVE)
[2021-06-30 00:16] LABS: Smooth Muscle Antibody <20 U (<20)
[2021-06-30 00:32] LABS: FIB-ALT 28 U/L (6-29); FIB-Alpha-2-Macroglobulin 216 mg/dL (106-279); FIB-Apolipoprotein A1 175 mg/dL (101-198); FIB-GGT 51 U/L (3-70); FIB-Haptoglobin 140 mg/dL (43-212); FIB-Total Bilirubin 0.5 mg/dL (0.2-1.2); Liver Fibrosis Score 0.18; Liver Fibrosis Stage F0; Nec Inflam Act Grade A0; Nec Inflam Act Score 0.11
[2021-06-30 22:01] LABS: Alk.Phos Iso. Macrohepatic 0 % (<=0); Alk.Phos Isoenzymes Bone 67 % (28-66); Alk.Phos Isoenzymes Intest 0 % (1-24); Alk.Phos Isoenzymes Liver 33 % (25-69); Alk.Phos Isoenzymes Placental 0 % (<=0); Alk.Phos Isoenzymes Total 123 U/L (37-153)
== END 2021-06-25 09:39 | disposition home or self-care (01) ==
LOC: HO.LAB 09:38
PROVIDERS: PCP Internal Medicine; Referring Provider Internal Medicine; Visit Provider Nurse Practitioner Family
DX: Z11.4 Encounter for screening for human immunodeficiency virus [HIV] (principal); R79.89 Other specified abnormal findings of blood chemistry; R74.8 Abnormal levels of other serum enzymes; K58.9 Irritable bowel syndrome, unspecified; K59.03 Drug induced constipation; R74.01 Elevation of levels of liver transaminase levels; K21.9 Gastro-esophageal reflux disease without esophagitis; K58.1 Irritable bowel syndrome with constipation
CPT/HCPCS: 36415; 81596; 82105; 82390; 82728; 84080; 86015; 86140; 86255; 86256; 87389; 99212

== ENCOUNTER 2021-07-08 12:42 | Outpatient (REF) | payer OTHER, SELFPAY ==
--- NOTE | ~2021-07-08 | US_ITS ---
EXAMINATION: US ABDOMEN COMPLETE CLINICAL INFORMATION: Elevation of levels of liver transaminase levels. COMPARISON: US retroperitoneal limited (renal only) 03/08/2021 and 12/02/2020. CT abdomen and pelvis without contrast 12/18/2019. XR abdomen KUB 01/26/2017. X-ray abdomen 03/05/2013. TECHNIQUE: Real-time imaging of the abdominal viscera. FINDINGS: PANCREAS: Normal. ABDOMINAL AORTA: The proximal, mid, and distal segments are normal in caliber. INFERIOR VENA CAVA: Visualized portions are normal. LIVER: The liver is normal in size. The liver contour is normal. Parenchymal echogenicity is normal. In the left lobe there is a septated cyst versus 2 abutting cysts. Together these measure up to 1.3 cm. No suspicious features. There is no intrahepatic biliary duct dilatation seen. GALLBLADDER: Surgically absent. COMMON BILE DUCT: Normal in caliber measuring 0.14 cm in diameter. RIGHT KIDNEY: Multiple cysts are present. Exophytic upper pole cyst measures up to 3.9 cm. Midpole cyst has a septation. This cyst measures 2.9 cm. The septation is thin without Doppler vascularity. Multiple calculi are present. At least 4 stones measuring up to 0.6 cm at the lower pole. No hydronephrosis. The kidney measures 13.6 cm in maximum dimension. LEFT KIDNEY: Surgically removed. SPLEEN: Normal. The spleen measures 9.3 cm in maximum dimension. FREE FLUID: None. US/US abdomen complete IMPRESSION: No suspicious finding of the liver. Hepatic cyst noted. Absent left kidney. Multiple right renal cysts which appear similar to prior. Multiple nonobstructing right renal calculi.
== END 2021-07-08 12:43 | disposition home or self-care (01) ==
LOC: HO.US 12:42
PROVIDERS: PCP Internal Medicine; Visit Provider Internal Medicine
DX: R74.01 Elevation of levels of liver transaminase levels (principal)
CPT/HCPCS: 76700

== ENCOUNTER 2021-07-09 12:24 | Day surgery (SDC) | payer OTHER, SELFPAY ==
[2021-07-05 11:18] VITALS: BMI 25.3
--- NOTE | ~2021-07-09 | FL_ITS ---
EXAMINATION: XR FLUOROSCOPY WITH IMAGES CLINICAL INFORMATION: Right SI joint injection. COMPARISON: None. TECHNIQUE: Fluoroscopy performed by Dr. Brando Smith. Fluoroscopy time: 0.3 minutes DAP: 2.77 mGycm2 Images: 1 FINDINGS: There is needle positioned overlying the right SI joint with contrast opacifying the soft tissues. This second image reveals FL/FL guidance in OR IMPRESSION: Fluoroscopy guidance was provided to referring physician for right SI joint injection.
--- NOTE | 2021-07-09 12:47 | P.CONAN_ITS ---
[facility] Active Problems Active Problems: All Active Problems (Updated 07/09/21 @ 12:38 by Gloria Anna RN) Urinary tract infection (Acute) Dysuria (Acute) Skin laxity (Acute) Nephrolithiasis (Acute) Overweight (Acute) Sacroiliac joint pain (Acute) Left lumbar radiculopathy (Acute) Memory impairment (Acute) Transaminitis (Acute) Spondylosis of lumbar spine (Acute) Sacroiliitis (Acute) Renal cyst (Acute) Dizziness of unknown etiology (Acute) Colon cancer screening (Acute) Chronic constipation (Acute) Constipation (Acute) History of gastric bypass (Acute ~2008) Dyspareunia, female (Acute) Painful sexual intercourse (Acute) Dyspareunia (Acute) Pyelonephritis (Acute) Ingrown toenail (Acute) Iron deficiency anemia (Acute) Overweight (BMI 25.0-29.9) (Acute) Major depression, recurrent (Acute) Anxiety (Acute) Insomnia (Acute) Tremor (Acute) Orthostatic hypotension (Acute) Incisional hernia without obstruction or gangrene (Acute) Avascular necrosis of femoral head (Acute) Bilateral carpal tunnel syndrome (Acute) Peroneal neuropathy (Acute) Lumbar degenerative disc disease (Acute) Vitamin D deficiency (Acute) GERD (gastroesophageal reflux disease) (Acute) Migraine (Acute) Hyperlipidemia (Acute) Past Medical History Medical History (Updated 07/09/21 @ 12:38 by Gloria Anna RN) Anxiety Asthma Avascular necrosis of femoral head Bilateral carpal tunnel syndrome Chronic constipation Colon cancer screening Constipation Dizziness of unknown etiology Dyspareunia Dyspareunia, female GERD (gastroesophageal reflux disease) Hx of schizophrenia Hyperlipidemia Incisional hernia without obstruction or gangrene Ingrown toenail Insomnia Iron deficiency anemia Lumbar degenerative disc disease Major depression, recurrent Migraine Orthostatic hypotension MIGUEL (obstructive sleep apnea) Overweight (BMI 25.0-29.9) Painful sexual intercourse Panic attacks Peroneal neuropathy PTSD (post-traumatic stress disorder) Pyelonephritis Renal cyst Sacroiliitis Spondylosis of lumbar spine Tremor Vitamin D deficiency Family History Family History Father Gastric cancer Mother Breast cancer Maternal Grandmother Breast cancer Maternal Aunt Breast cancer Other Mental health problem Family history of problems with anesthesia: No Surgical History Surgical History H/O left nephrectomy History of bilateral breast reduction surgery History of bladder repair surgery (~03/2015) History of bladder surgery (~10/2009) History of cholecystectomy History of endoscopy (~06/2016) History of gastric bypass (~2008) History of hernia repair (~03/29/10) History of hysterectomy History of incisional hernia repair (~1999) Hx of cystoscopy Hx of umbilical hernia repair (~1999) S/P cystoscopy (~07/30/12) S/P laparoscopic sleeve gastrectomy S/P panniculectomy History of Problems with Anesthesia: No Social History Social History Housing: Apartment Alcohol intake: never Patient Tobacco Use Status: Never used Tobacco Second Hand Smoke Exposure: No Use of substances other than those prescribed or required for medical reasons: No Are you DNR?: No Advance Directives: No Advance Directives Information Provided: Yes service: No Current occupational status: disabled Meds Allergies Allergy/AdvReac Type Severity Reaction Status Date / Time No Known Allergies Allergy Verified 07/09/21 12:43 Active Medications: Current Medications Lactated Ringer's (Lr) 1,000 mls @ 50 mls/hr IVCONT .Q20H JYOTHI Lactated Ringer's (Lr) 1,000 mls @ 50 mls/hr IVCONT .Q20H [facility] Home Medications Medication Instructions Recorded Confirmed Last Taken Type albuterol sulfate 2.5 mg/0.5 mL 5 mg INHALATION Q4H 02/06/20 06/16/21 Unknown History solution for nebulization benztropine 1 mg tablet 1 mg PO BID PRN 02/06/20 06/16/21 Unknown History duloxetine 60 mg capsule,delayed 60 mg PO DAILY 02/06/20 06/16/21 07/09/21 10:00 History release haloperidol 10 mg tablet 10 mg PO BEDTIME 02/06/20 06/07/21 07/06/20 History multivitamin 1 tab PO DAILY 06/12/20 06/16/21 Unknown History prazosin 1 mg capsule 1 mg PO BEDTIME 06/25/20 06/16/21 Unknown History Exam Exam Date and Time: July 09, 2021 1247 Height,Weight and Vital Signs: Height 5 ft 3 in Weight 64.864 kg Airway Mallampati Class: II TM Dist: >3cm Neck ROM: Full Heart: rrr Lungs: cta Assessment and Plan Assessment Anesthesia Assessment: Anesthesia Plan Discussed and Chart Reviewed Final Anesthetic Review Family History of Problems with Anesthesia: No History of Problems with Anesthesia: No NPO: Yes ASA Class: III Final Preanesthetic Review: No Changes in Pt Med Stat, Meds/Allgs Chart Reviewed and Consent Obtained/Reviewed Patient Risk: Intermediate Procedure Risk: Intermediate Anesthetic Plan Anesthetic Plan: MAC: Disposition: Standard PACU
[2021-07-09 12:53] VITALS: BP 128/82; PULSE 66; RESP 16; TEMP 36.4; O2SAT 97
[2021-07-09] MEDS: Lactated Ringers 1,000 ML 50 ML IVCONT (13:06)
--- NOTE | 2021-07-09 13:43 | MHC.SHP ---
Pre-Procedural Eval Section A Date of Service: 07/09/21 Section B Chief Complaint: Sacroiliitis Details of Present Illness: as above Relevant Family History (Specify if Yes): No Relevant Social History: None Present Medications: see Short Stay Collaborative assessment Medical History: No relevant PMH History of Previous Operations: No relevant previous surgery Allergies: Allergies Allergy/AdvReac Type Severity Reaction Status Date / Time No Known Allergies Allergy Verified 07/09/21 12:43 Review of Systems Sugical H&P ROS: Negative: Constitution, Cardiovascular, Respiratory, Neurological, Psychiatric, Hem-Onc, Allergic/Immunologic, Gastrointestinal, Genitourinary, Musculoskeletal, Integumentary, Endocrine and Eyes/Ears/Nose/Throat Exam Surgical H&P Exam: Normal: HEENT, Normal: Heart, Normal: Lungs, Normal: Extremities, Normal: Abdomen, Normal: Skin and Normal: Neurological Plan Diagnosis/Plan: Unchanged I have reviewed the history and physical and performed a pertinent physical examination on my patient. No changes have occurred unless specified.
--- NOTE | 2021-07-09 13:54 | W.PM.OPN ---
Operative Note Operative Note Date of Service: 07/09/21 Narrative: Right SI joint therapeutic injection Informed consent was explained thoroughly to the patient.? All questions about benefits and risks for the procedure were answered. ? ?Patient came to the operating room she was positioned prone on the operating table with the pillow under her pelvis.?ASA monitors were applied and patient was sedated. Her lower back and buttocks was prepped with ChloraPrep and draped with sterile towels.? Sterilely draped C-arm was brought over the operating field and sq picture of patient's pelvis was demonstrated on the screen.? For the right joint tilting C-arm contralateral to the site of the joint and 5? to the foot of the patient the most posterior portion of the joints were clearly delineated on the screen.? Skin was injected in the projection of the joint slightly medial to the location of the joint with 25 gauge 1/2 inch needle using local lidocaine 2% without epinephrine. ? ? ? After that 22 gauge 3 and 1/2 inch needle was driven to the point of interest in tunnel vision fashion.?Thee attempts were made to bring the tip of the needle into the SI joint. When needle entered the joint capsule injection of the contrast was performed demonstrating intra-articular and minimally periarticular spread of the contrast.? After that 4 cc. of bupivacaine 0.5% mixed with kenalog 40 mg was injected into the right joint.? Upon completion of the injections the needle was removed.? Sterile dressing was applied.? Upon completion of the injection patient was taken outside of the operating room to the recovery room where she recovered uneventfully.?
--- NOTE | 2021-07-09 14:22 | PM.OP ---
Brief Operative Note Date of Service: 07/09/21 Pre-op diagnosis: sacroiliitis Post-op diagnosis: same Procedure: Right SI joint steroid injection Surgeon: Brando Smith MD Anesthesia: MAC Was an Beef Cattle Farmer used for this Procedure?: No Estimated blood loss (mL): 2 Pathology: none sent Condition: stable Disposition: PACU
[2021-07-09 14:25] VITALS: BP 105/66; PULSE 72; RESP 10; TEMP 37.7; O2SAT 95
[2021-07-09 14:40] VITALS: BP 121/73; PULSE 60; RESP 16; O2SAT 98
[2021-07-09 14:55] VITALS: BP 117/78; PULSE 70; RESP 16; TEMP 36.7; O2SAT 97
== END 2021-07-09 15:20 | disposition home or self-care (01) ==
PROVIDERS: PCP Internal Medicine; Visit Provider Anesthesiology
PROC: 3E0U33Z Introduction of Anti-inflammatory into Joints, Percutaneous Approach (ICD-10-PCS; CPT 27096; principal; 2021-07-09 13:50)
DX: M46.1 Sacroiliitis, not elsewhere classified (principal); M47.816 Spondylosis without myelopathy or radiculopathy, lumbar region; M54.50 Low back pain, unspecified; G89.29 Other chronic pain; R20.2 Paresthesia of skin; M16.0 Bilateral primary osteoarthritis of hip; D50.9 Iron deficiency anemia, unspecified; G47.33 Obstructive sleep apnea (adult) (pediatric); F32.9 Major depressive disorder, single episode, unspecified; F41.1 Generalized anxiety disorder; E55.9 Vitamin D deficiency, unspecified; Z90.5 Acquired absence of kidney; Z79.899 Other long term (current) drug therapy; Z98.84 Bariatric surgery status; Z98.890 Other specified postprocedural states
CPT/HCPCS: 27096; J2250; J3010; J3300; Q9967

== ENCOUNTER 2021-07-19 08:29 | Day surgery (SDC) | payer OTHER, SELFPAY ==
[2021-07-15 10:19] VITALS: BMI 25.3
--- NOTE | 2021-07-15 13:29 | HO.ANESPROP2 ---
Documented by User: Yanet Brunner NP 07/15/21 13:30 HPI - Anesthesia Eval Consult details Narrative: 50yo F for Upper Endoscopy and Colonoscopy [facility] Active Problems Active Problems: All Active Problems (Updated 07/09/21 @ 12:38 by Gloria Anna, DALILA) Urinary tract infection (Acute) Dysuria (Acute) Skin laxity (Acute) Nephrolithiasis (Acute) Overweight (Acute) Sacroiliac joint pain (Acute) Left lumbar radiculopathy (Acute) Memory impairment (Acute) Transaminitis (Acute) Spondylosis of lumbar spine (Acute) Sacroiliitis (Acute) Renal cyst (Acute) Dizziness of unknown etiology (Acute) Colon cancer screening (Acute) Chronic constipation (Acute) Constipation (Acute) History of gastric bypass (Acute ~2008) Dyspareunia, female (Acute) Painful sexual intercourse (Acute) Dyspareunia (Acute) Pyelonephritis (Acute) Ingrown toenail (Acute) Iron deficiency anemia (Acute) Overweight (BMI 25.0-29.9) (Acute) Major depression, recurrent (Acute) Anxiety (Acute) Insomnia (Acute) Tremor (Acute) Orthostatic hypotension (Acute) Incisional hernia without obstruction or gangrene (Acute) Avascular necrosis of femoral head (Acute) Bilateral carpal tunnel syndrome (Acute) Peroneal neuropathy (Acute) Lumbar degenerative disc disease (Acute) Vitamin D deficiency (Acute) GERD (gastroesophageal reflux disease) (Acute) Migraine (Acute) Hyperlipidemia (Acute) Past Medical History Medical History Anxiety Asthma Avascular necrosis of femoral head Bilateral carpal tunnel syndrome Chronic constipation Colon cancer screening Constipation Dizziness of unknown etiology Dyspareunia Dyspareunia, female GERD (gastroesophageal reflux disease) Hx of schizophrenia Hyperlipidemia Incisional hernia without obstruction or gangrene Ingrown toenail Insomnia Iron deficiency anemia Lumbar degenerative disc disease Major depression, recurrent Migraine Orthostatic hypotension MIGUEL (obstructive sleep apnea) Overweight (BMI 25.0-29.9) Painful sexual intercourse Panic attacks Peroneal neuropathy PTSD (post-traumatic stress disorder) Pyelonephritis Renal cyst Sacroiliitis Spondylosis of lumbar spine Tremor Vitamin D deficiency Family History Family History Father Gastric cancer Mother Breast cancer Maternal Grandmother Breast cancer Maternal Aunt Breast cancer Other Mental health problem Family history of problems with anesthesia: No Surgical History Surgical History (Updated 07/15/21 @ 10:23 by Deneen Bunn RN) H/O left nephrectomy History of bilateral breast reduction surgery History of bladder repair surgery (~03/2015) History of bladder surgery (~10/2009) History of cholecystectomy History of endoscopy (~06/2016) History of gastric bypass (~2008) History of hernia repair (~03/29/10) History of hysterectomy History of incisional hernia repair (~1999) History of surgery Hx of cystoscopy Hx of umbilical hernia repair (~1999) S/P cystoscopy (~07/30/12) S/P laparoscopic sleeve gastrectomy S/P panniculectomy History of Problems with Anesthesia: No Social History Social History Housing: Apartment Alcohol intake: never Patient Tobacco Use Status: Never used Tobacco Second Hand Smoke Exposure: No Use of substances other than those prescribed or required for medical reasons: No Are you DNR?: No Advance Directives: No Advance Directives Information Provided: Yes service: No Current occupational status: disabled Meds Allergies Allergy/AdvReac Type Severity Reaction Status Date / Time No Known Allergies Allergy Verified 07/19/21 09:24 Home Medications Medication Instructions Recorded Confirmed Last Taken Type albuterol sulfate 2.5 mg/0.5 mL 5 mg INHALATION Q4H 02/06/20 07/15/21 Unknown History solution for nebulization benztropine 1 mg tablet 1 mg PO BID PRN 02/06/20 07/15/21 Unknown History duloxetine 60 mg capsule,delayed 60 mg PO DAILY 02/06/20 07/15/21 07/09/21 10:00 History release haloperidol 10 mg tablet 10 mg PO BEDTIME 02/06/20 07/15/21 07/06/20 History multivitamin 1 tab PO DAILY 06/12/20 07/15/21 Unknown History prazosin 1 mg capsule 1 mg PO BEDTIME 06/25/20 07/15/21 Unknown History Exam Exam Date and Time: July 15, 2021 1329 Height,Weight and Vital Signs: Height 5 ft 3 in Weight 64.864 kg Pertinent Lab Results Pertinent Lab Results: Laboratory Tests 06/03/21 06/03/21 10:30 10:30 WBC 5.5 Hgb 15.4 Hct 46.6 Plt Count 269 Sodium 140 Potassium 4.4 Chloride 102 Carbon Dioxide 30 H BUN 17 H Creatinine 1.32 Assessment and Plan Assessment Anesthesia Assessment: Chart Reviewed Final Anesthetic Review Family History of Problems with Anesthesia: No History of Problems with Anesthesia: No Documented by User: Lamar Brown MD 07/19/21 10:01 [facility] Past Medical History Medical History Anxiety Asthma Avascular necrosis of femoral head Bilateral carpal tunnel syndrome Chronic constipation Colon cancer screening Constipation Dizziness of unknown etiology Dyspareunia Dyspareunia, female GERD (gastroesophageal reflux disease) Hx of schizophrenia Hyperlipidemia Incisional hernia without obstruction or gangrene Ingrown toenail Insomnia Iron deficiency anemia Lumbar degenerative disc disease Major depression, recurrent Migraine Orthostatic hypotension MIGUEL (obstructive sleep apnea) Overweight (BMI 25.0-29.9) Painful sexual intercourse Panic attacks Peroneal neuropathy PTSD (post-traumatic stress disorder) Pyelonephritis Renal cyst Sacroiliitis Spondylosis of lumbar spine Tremor Vitamin D deficiency Family History Family History Father Gastric cancer Mother Breast cancer Maternal Grandmother Breast cancer Maternal Aunt Breast cancer Other Mental health problem Surgical History Surgical History (Updated 07/15/21 @ 10:23 by Deneen Bunn RN) H/O left nephrectomy History of bilateral breast reduction surgery History of bladder repair surgery (~03/2015) History of bladder surgery (~10/2009) History of cholecystectomy History of endoscopy (~06/2016) History of gastric bypass (~2008) History of hernia repair (~03/29/10) History of hysterectomy History of incisional hernia repair (~1999) History of surgery Hx of cystoscopy Hx of umbilical hernia repair (~1999) S/P cystoscopy (~07/30/12) S/P laparoscopic sleeve gastrectomy S/P panniculectomy Social History Social History Housing: Apartment Alcohol intake: never Patient Tobacco Use Status: Never used Tobacco Second Hand Smoke Exposure: No Use of substances other than those prescribed or required for medical reasons: No Are you DNR?: No Advance Directives: No Advance Directives Information Provided: Yes service: No Current occupational status: disabled Meds Allergies Allergy/AdvReac Type Severity Reaction Status Date / Time No Known Allergies Allergy Verified 07/19/21 09:24 Home Medications Medication Instructions Recorded Confirmed Last Taken Type albuterol sulfate 2.5 mg/0.5 mL 5 mg INHALATION Q4H 02/06/20 07/15/21 Unknown History solution for nebulization benztropine 1 mg tablet 1 mg PO BID PRN 02/06/20 07/15/21 Unknown History duloxetine 60 mg capsule,delayed 60 mg PO DAILY 02/06/20 07/15/21 07/09/21 10:00 History release haloperidol 10 mg tablet 10 mg PO BEDTIME 02/06/20 07/15/21 07/06/20 History multivitamin 1 tab PO DAILY 06/12/20 07/15/21 Unknown History prazosin 1 mg capsule 1 mg PO BEDTIME 06/25/20 07/15/21 Unknown History Exam Airway Mallampati Class: II TM Dist: >3cm Neck ROM: Full Heart: rrr Lungs: cta Assessment and Plan Assessment Anesthesia Assessment: Anesthesia Plan Discussed and Chart Reviewed Final Anesthetic Review NPO: Yes ASA Class: III Final Preanesthetic Review: No Changes in Pt Med Stat, Meds/Allgs Chart Reviewed and Consent Obtained/Reviewed Patient Risk: Intermediate Procedure Risk: Intermediate Anesthetic Plan Anesthetic Plan: MAC: Disposition: Standard PACU
[2021-07-19 09:42] VITALS: BP 125/84; PULSE 64; RESP 18; TEMP 36.8; O2SAT 99
--- NOTE | 2021-07-19 09:57 | MHC.SHP ---
Pre-Procedural Eval Section A Date of Service: 07/19/21 The patient is an INPATIENT: No Changes since office visit: Yes Patient answered all questions; No Cold of Flu in the past 2 weeks, No New Medical Problems and No Changes in Medication The History & Physical has been completed within 30 days and I have reviewed it.: Yes Section B Chief Complaint: Chronic Constipation, GERD Allergies: Allergies Allergy/AdvReac Type Severity Reaction Status Date / Time No Known Allergies Allergy Verified 07/19/21 09:24 Plan I have reviewed the history and physical and performed a pertinent physical examination on my patient. No changes have occurred unless specified.
--- NOTE | 2021-07-19 09:58 | PM.OP ---
Brief Operative Note Date of Service: 07/19/21 Pre-op diagnosis: Colon cancer screening, GERD, family history of gastric cancer Post-op diagnosis: other (Colon polyps, diverticulosis, hemorrhoids, GERD, Gastritis, Gastric Bypass surgery status) Procedure: FLEXIBLE TRANSORAL UPPER GASTROINTESTINAL ENDOSCOPY WITH BIOPSIES AND COLONOSCOPY TILL CECUM WITH BIOPSIES AND SNARE POLYPECTOMY UPPER ENDOSCOPY Consent: Indications for the procedure and potential complications of bleeding, perforation, reaction to medications and missed diagnosis were discussed with the patient and informed consent was obtained. Instrument: Olympus GIF H 190 mid size upper endoscope Monitoring: Vital signs and clinical assessment, continuous EKG monitoring, Pulse oximetry, Carbon Dioxide monitoring and blood pressure monitoring were done throughout the procedure. Procedure: The patient was placed in the left lateral decubitis position and pre-procedure medications were administered and a bite block was placed. The endoscope was inserted into the mouth and advanced under direct vision to the third part of duodenum. A careful inspection was made as the upper endoscope was withdrawn including a retroflexed examination of the proximal stomach; Findings and interventions are described below. Findings: Larynx: Normal Esophagus: GE junction at 35 cms. No esophagitis or Phillips's. Stomach: Eileen en Y Gastric Bypass anatomy. Normal appearing gastro-jejunal anastomosis at 40 cms. Mild gastric erythema. Biopsies were obtained. Grade 2 flap valve on retroflexed examination of the cardia. Jejunum: Normal mucosa in efferent limb of jejunum Intervention: Biopsies as noted above COLONOSCOPY PROCEDURE NOTE Consent: Indications for the procedure and potential complications of bleeding, perforation, reaction to medications and missed diagnosis were discussed with the patient and informed consent was obtained. Instrument: Olympus PCF H 190 L variable stiffness pediatric colonoscope Monitoring: Vital signs and clinical assessment, intermittent blood pressure monitoring, continuous EKG monitoring, Pulse oximetry and Carbon Dioxide monitoring were done throughout the procedure. Colon withdrawl time was 31 minutes. Procedure: The patient was placed in the left lateral decubitis position and pre-procedure medications were administered. After a digital rectal examination of the ano-rectum, the video colonoscope was inserted into the rectum and advanced through the colon to the cecum. The colonoscope was slowly withdrawn in a retrograde panoramic fashion and the colon mucosa was carefully examined including a retroflexed view of the rectum. Findings and interventions are described below. Procedure Difficulty: : Without difficulty Findings: Terminal Ileum: Not evaluated Cecum: Normal Ascending Colon: Normal Transverse Colon: Two 8 - 10 mm sessile polyps removed with a cold snare Descending Colon: Moderate diverticulosis Sigmoid Colon: Moderate diverticulosis Rectum: Normal Ano-rectum: Moderate internal hemorrhoids Colon preparation: Good after copious irrigation Impression and Post Procedure Diagnosis: Endoscopy Findings: STOMACH: Eileen en Y Gastric Bypass anatomy. Normal appearing gastro-jejunal anastomosis at 40 cms. Mild gastric erythema. Biopsies were obtained. JEJUNUM: Normal efferent limb Colonoscopy Findings: Two medium sized polyps removed Random biopsies were obtained from the right colon to check for microscopic colitis Moderate diverticulosis seen in the left colon Moderate hemorrhoids on retroflexed exam. Plan: Await pathology results Patient has an appointment on 08/03/21 in the GI Clinic with Baylee Gaming FNP-BC. Repeat Colonoscopy interval based on path results - in 3 years if polyps are adenomatous and 10 years if polyps are hyperplastic. GERD, colon polyps and diverticulosis handouts were given in the discharge area Surgeon: Hi Henning MD Anesthesia: MAC (Denisse Pulido CRNA) Was an Director Of Online Education used for this Procedure?: Yes Director Of Online Education: Yovanny Livingston Estimated blood loss (mL): 0 Pathology: other (A- GASTRIC BXS R/O H. B- RIGHT COLON BXS R/O MICROSCOPIC COLITIS C- TRANSVERSE COLON POLYPS) Condition: stable Disposition: PACU
--- NOTE | 2021-07-19 09:59 | P.OP_ITS ---
Operative Note Operative Note Date of Service: 07/19/21 Narrative: Pre-op diagnosis: Colon cancer screening, GERD, family history of gastric cancer Post-op diagnosis:?other (Colon polyps, diverticulosis, hemorrhoids, GERD, Gastritis, Gastric Bypass surgery status) Procedure: FLEXIBLE TRANSORAL UPPER GASTROINTESTINAL ENDOSCOPY WITH BIOPSIES AND COLONOSCOPY TILL CECUM WITH BIOPSIES AND SNARE POLYPECTOMY UPPER ENDOSCOPY Consent:?Indications for the procedure and potential complications of bleeding, perforation, reaction to medications and missed diagnosis were discussed with the patient and informed consent was obtained. Instrument:?Olympus GIF H 190 mid size upper endoscope Monitoring: Vital signs and clinical assessment, continuous EKG monitoring, Pulse oximetry, Carbon Dioxide monitoring and blood pressure monitoring were done throughout the procedure. Procedure:?The patient was placed in the left lateral decubitis position and pre-procedure medications were administered and a bite block was placed. The endoscope was inserted into the mouth and advanced under direct vision to the third part of duodenum. A careful inspection was made as the upper endoscope was withdrawn including a retroflexed examination of the proximal stomach; Findings and interventions are described below. Findings: Larynx:? Normal Esophagus:?GE junction at 35 cms.? No esophagitis or Phillips's. Stomach:?Eileen en Y Gastric Bypass anatomy.? Normal appearing gastro-jejunal anastomosis at 40 cms. Mild gastric erythema. Biopsies were obtained. Grade 2 flap valve on retroflexed examination of the cardia. Jejunum:?Normal mucosa in efferent limb of jejunum Intervention:?Biopsies as noted above COLONOSCOPY PROCEDURE NOTE Consent:?Indications for the procedure and potential complications of bleeding, perforation, reaction to medications and missed diagnosis were discussed with the patient and informed consent was obtained. Instrument:?Olympus PCF H 190 L variable stiffness pediatric colonoscope Monitoring:?Vital signs and clinical assessment, intermittent blood pressure monitoring, continuous EKG monitoring, Pulse oximetry and Carbon Dioxide monitoring were done throughout the procedure. Colon withdrawl time was 31 minutes. Procedure:?The patient was placed in the left lateral decubitis position and pre-procedure medications were administered. After a digital rectal examination of the ano-rectum, the video colonoscope was inserted into the rectum and advanced through the colon to the cecum. The colonoscope was slowly withdrawn in a retrograde panoramic fashion and the colon mucosa was carefully examined including a retroflexed view of the rectum. Findings and interventions are described below. Procedure Difficulty:?: Without difficulty Findings: Terminal Ileum: Not evaluated Cecum:? Normal Ascending Colon:??Normal Transverse Colon:??Two 8 - 10 mm sessile polyps removed with a cold snare Descending Colon:? Moderate diverticulosis Sigmoid Colon:??Moderate diverticulosis Rectum:??Normal Ano-rectum:??Moderate internal hemorrhoids Colon preparation:? Good after copious irrigation Impression and Post Procedure Diagnosis: Endoscopy Findings: STOMACH: Eileen en Y Gastric Bypass anatomy.? Normal appearing gastro-jejunal anastomosis at 40 cms. Mild gastric erythema. Biopsies were obtained. JEJUNUM:? Normal efferent limb Colonoscopy Findings: Two medium sized polyps removed Random biopsies were obtained from the right colon to check for microscopic colitis Moderate diverticulosis seen in the left colon Moderate hemorrhoids on retroflexed exam. Plan: Await pathology results Patient has an appointment on 08/03/21 in the GI Clinic with Baylee Gaming FNP- BC. Repeat Colonoscopy interval based on path results - in 3 years if polyps are adenomatous and 10 years if polyps are hyperplastic. Above findings were reviewed with the patient and GERD, colon polyps and diverticulosis handouts were given in the discharge area Surgeon: Hi Henning MD Anesthesia:?MAC (Denisse Pulido CRNA) Was an Bull Ladle Tender used for this Procedure?:?Yes Bull Ladle Tender:?Yovanny Livingston Estimated blood loss (mL):?0 Pathology:?other (A- GASTRIC BXS? R/O H.? B- RIGHT COLON BXS? R/O MICROSCOPIC COLITIS? C- TRANSVERSE COLON POLYPS) Condition:?stable Disposition:?PACU
[2021-07-19] MEDS: Lactated Ringers 1,000 ML 100 ML IVCONT (10:10)
[2021-07-19 11:17] VITALS: BP 110/65; PULSE 59; RESP 16; TEMP 36.3; O2SAT 100
[2021-07-19 11:32] VITALS: BP 118/72; PULSE 58; RESP 18; TEMP 37.5; O2SAT 100
== END 2021-07-19 12:11 | disposition home or self-care (01) ==
PROVIDERS: PCP Internal Medicine; Visit Provider Internal Medicine Gastroenterology
PROC: (CPT 45385; principal; 2021-07-19 10:00)
DX: Z12.11 Encounter for screening for malignant neoplasm of colon (principal); D12.3 Benign neoplasm of transverse colon; K57.30 Diverticulosis of large intestine without perforation or abscess without bleeding; K64.8 Other hemorrhoids; K58.1 Irritable bowel syndrome with constipation; K59.09 Other constipation; K21.9 Gastro-esophageal reflux disease without esophagitis; Z80.0 Family history of malignant neoplasm of digestive organs; K29.50 Unspecified chronic gastritis without bleeding; Z98.84 Bariatric surgery status; E78.5 Hyperlipidemia, unspecified; D50.9 Iron deficiency anemia, unspecified; G47.33 Obstructive sleep apnea (adult) (pediatric); F33.9 Major depressive disorder, recurrent, unspecified; E55.9 Vitamin D deficiency, unspecified; R25.1 Tremor, unspecified; Z79.899 Other long term (current) drug therapy
CPT/HCPCS: 45385; 45380; 43239; 88305; 88342

== ENCOUNTER 2021-07-21 15:54 | Outpatient (REF) | payer OTHER, SELFPAY ==
[2021-07-21 17:08] LABS: Alanine Aminotransferase 31 U/L (0-31); Albumin Level 3.8 g/dL (3.5-5.0); Alkaline Phosphatase 119 U/L (39-117); Aspartate Amino Transferase 26 U/L (5-31); Bilirubin Direct 0.2 mg/dL (0.0-0.5); Bilirubin Total 0.6 mg/dL (0.0-1.0); Total Protein 6.4 g/dL (6.5-8.0)
== END 2021-07-21 15:55 | disposition home or self-care (01) ==
LOC: HO.LAB 15:54
PROVIDERS: PCP Internal Medicine; Visit Provider Internal Medicine
DX: R79.89 Other specified abnormal findings of blood chemistry (principal)
CPT/HCPCS: 36415; 80076

== ENCOUNTER → 2021-08-03 14:04 | Outpatient (BNVA) | payer OTHER, SELFPAY | PROVIDERS: PCP Internal Medicine; Referring Provider Internal Medicine; Visit Provider Nurse Practitioner Family | DX: K21.9 Gastro-esophageal reflux disease without esophagitis (principal); K59.09 Other constipation; R74.01 Elevation of levels of liver transaminase levels; K57.30 Diverticulosis of large intestine without perforation or abscess without bleeding; K64.8 Other hemorrhoids; Z86.010 Personal history of colon polyps; Z79.899 Other long term (current) drug therapy; Z98.890 Other specified postprocedural states | CPT/HCPCS: 99212 ==

== ENCOUNTER → 2021-08-11 10:31 | Outpatient (BNVA) | payer OTHER, SELFPAY | PROVIDERS: PCP Internal Medicine; Visit Provider Anesthesiology | DX: M46.1 Sacroiliitis, not elsewhere classified (principal); M47.816 Spondylosis without myelopathy or radiculopathy, lumbar region | CPT/HCPCS: 99212 ==

== ENCOUNTER 2021-08-31 13:46 | Outpatient (REF) | payer OTHER, SELFPAY ==
[2021-08-31 15:13] LABS: Blood Urea Nitrogen 13 mg/dL (9-16); Estimated Glomerular Filt Rate 50
== END 2021-08-31 13:47 | disposition home or self-care (01) ==
LOC: HO.MRI 13:46
PROVIDERS: Radiology Diagnostic Radiology
DX: N28.1 Cyst of kidney, acquired (principal)
CPT/HCPCS: 36415; 82565; 84520

== ENCOUNTER 2021-09-02 09:07 | Outpatient (REF) | payer OTHER, SELFPAY ==
[2021-09-02 09:43] LABS: MANUAL DIFF FLAG NO
[2021-09-02 10:04] LABS: Basophils Percent Auto 0.6 % (0-2); Eosinophils Percent Auto 0.6 % (0-4); Hematocrit 43.5 % (37.0-47.0); Imm Gran Abs Auto 0.01 X10*3/uL (0.00-0.03); Imm Gran Pct Auto 0.2 % (0.0-0.4); Lymphocytes Absolute Auto 1.1 X10*3/uL (1.2-4.9); Mean Corpuscular HGB Conc 32.2 g/dl (31.0-35.0); Mean Corpuscular Hemoglobin 33.2 pg (27.0-33.0); Mean Corpuscular Volume 103.1 fL (80.0-98.0); Monocytes Absolute Auto 0.4 X10*3/uL (0.1-1.2); Monocytes Percent Auto 8.8 % (2-11); Neutrophils Absolute Auto 3.1 x10*3/uL (2.0-8.3); Neutrophils Percent Auto 65.8 % (45-73); Platelet Count 273 X10*3/uL (160-400); Red Blood Count 4.22 X10*6/uL (4.20-5.50); Red Cell Distribution Width 12.3 % (11.0-16.0); White Blood Count 4.7 X10*3/uL (4.8-10.8)
[2021-09-02 11:01] LABS: Iron 71 mcg/dL (30-160); Percent Iron Saturation 29 % (15-50); Total Iron Binding Capacity 244 mcg/dL (228-428); Unsaturated Iron Binding 173 ug/dL
[2021-09-02 11:02] LABS: Anion Gap 11 (12-20); Blood Urea Nitrogen 13 mg/dL (9-16); Calcium 8.8 mg/dL (8.4-10.2); Carbon Dioxide 29 mmol/L (22-29); Chloride 104 mmol/L (96-108); Estimated Glomerular Filt Rate 49; Potassium 4.7 mmol/L (3.3-5.1); Sodium 139 mmol/L (135-145)
[2021-09-02 11:05] LABS: Appearance Urine HAZY; Color Urine YELLOW; Glucose Urine UA NEG (NEG); Leukocyte Esterase Urine NEG (NEG); Nitrite Urine POS (NEG); Specific Gravity - Urine 1.025 (1.005-1.025); Urine Blood NEG (NEG); Urine Ketones NEG (NEG); Urine Protein NEG (NEG-TRACE)
[2021-09-02 11:23] LABS: Ferritin 923 ng/mL (10-250)
[2021-09-02 11:49] LABS: Bacteria Urine 4+ /LPF; Squamous Epithelial Cell Urine 2+ /LPF
[2021-09-02 11:50] LABS: RBC Urine 0 /HPF (0); WBC Urine 0-2 /HPF (0-4)
[2021-09-03 12:46] LABS: Calcium (PTHI) 8.5 mg/dL (8.6-10.4); PTHI 108 pg/mL (16-77)
== END 2021-09-02 09:08 | disposition home or self-care (01) ==
LOC: HO.LAB 09:07
PROVIDERS: Absent Provider Internal Medicine Nephrology; PCP Internal Medicine; Visit Provider Nurse Practitioner Family
DX: I10 Essential (primary) hypertension (principal); R74.01 Elevation of levels of liver transaminase levels; R74.8 Abnormal levels of other serum enzymes
CPT/HCPCS: 36415; 80051; 81001; 81003; 82310; 82565; 82728; 83540; 83970; 84520; 84550; 85025

== ENCOUNTER 2021-09-08 13:06 | Outpatient (REF) | payer OTHER, SELFPAY ==
--- NOTE | ~2021-09-08 | MR_ITS ---
EXAMINATION: MR KIDNEY WITHOUT AND WITH CONTRAST CLINICAL INFORMATION: Kidney cysts. COMPARISON: Previous abdominal ultrasounds most recent June [address] of the abdomen and pelvis November 2019. TECHNIQUE: Sagittal, axial and coronal sequences through the kidneys were performed with and without contrast. Patient received 7.5 mL intravenous Gadavist contrast. FINDINGS: The lung bases are clear. The liver is normal in size, shape and signal. There is a small bilobed cyst high in the dome of the liver measuring 1 cm. There is an area of signal loss in the posterior segment of the right lobe of the liver. No corresponding abnormality is seen in this region on previous CT or ultrasound. The gallbladder has been removed. There is no biliary duct dilatation. There is fatty infiltration of the pancreas. The pancreas is otherwise unremarkable. The spleen is unremarkable. The adrenal glands are unremarkable. The left kidney has been removed. There is mild right hydronephrosis. The visualized right ureter does not appear dilated. There are multiple right renal simple cysts. Largest cyst measures 4 cm in the upper pole. There is a 2.6 x 3.1 cm complex cyst in the lower pole with several thin nonenhancing septations. No solid component, mural nodule or enhancement is seen. 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 There are postsurgical changes to the stomach. Visualized bowel is unremarkable. There are postsurgical changes to the left lateral abdominal wall with a bulge. No hernia. Vascular structures are normal. No ascites or adenopathy is seen. There are degenerative changes of the spine. MR/MR kidney wo/w con IMPRESSION: Post left nephrectomy. Multiple right renal simple cysts, largest measuring 4 cm. 2.6 x 3.1 cm minimally complex right lower pole renal cyst with several thin nonenhancing septations. This is suggestive of Bosniak type II-F cyst. Small bilobed cyst in the liver.
--- NOTE | ~2021-09-08 | XR_ITS ---
EXAMINATION: XR ELBOW, BILATERAL XR KNEE AP KNEE STANDING, BILATERAL XR HIP, BILATERAL INCLUDING PELVIS CLINICAL INFORMATION: Pain right knee, right elbow and right hip. COMPARISON: None TECHNIQUE: AP pelvis and bilateral knee 5 views. AP bilateral knees standing one view. 3 views each elbow. FINDINGS: AP BILATERAL KNEE: There is minimal loss of bilateral medial and lateral compartment joint space. No visible acute fracture, dislocation or lytic process seen. RIGHT ELBOW: There is no visible acute fracture, dislocation or subluxation seen. No joint effusion. No bony erosive changes. LEFT ELBOW: There is no visible acute fracture, dislocation or subluxation seen. There is no joint effusion. No bony erosive changes. AP PELVIS AND BILATERAL HIPS: There is normal symmetry of bilateral hip joints and SI joints. No visible acute fracture, dislocation or subluxation seen. AP and frog-leg views of both hips reveal maintained hip joint space. No bony erosive changes. The soft tissues are normal. 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 Unremarkable bilateral elbow exam. Unremarkable AP pelvis and bilateral hip joints.
--- NOTE | ~2021-09-08 | XR_ITS ---
EXAMINATION: XR ELBOW, BILATERAL XR KNEE AP KNEE STANDING, BILATERAL XR HIP, BILATERAL INCLUDING PELVIS CLINICAL INFORMATION: Pain right knee, right elbow and right hip. COMPARISON: None TECHNIQUE: AP pelvis and bilateral knee 5 views. AP bilateral knees standing one view. 3 views each elbow. FINDINGS: AP BILATERAL KNEE: There is minimal loss of bilateral medial and lateral compartment joint space. No visible acute fracture, dislocation or lytic process seen. RIGHT ELBOW: There is no visible acute fracture, dislocation or subluxation seen. No joint effusion. No bony erosive changes. LEFT ELBOW: There is no visible acute fracture, dislocation or subluxation seen. There is no joint effusion. No bony erosive changes. AP PELVIS AND BILATERAL HIPS: There is normal symmetry of bilateral hip joints and SI joints. No visible acute fracture, dislocation or subluxation seen. AP and frog-leg views of both hips reveal maintained hip joint space. No bony erosive changes. The soft tissues are normal. 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 Unremarkable bilateral elbow exam. Unremarkable AP pelvis and bilateral hip joints.
--- NOTE | ~2021-09-08 | XR_ITS ---
EXAMINATION: XR ELBOW, BILATERAL XR KNEE AP KNEE STANDING, BILATERAL XR HIP, BILATERAL INCLUDING PELVIS CLINICAL INFORMATION: Pain right knee, right elbow and right hip. COMPARISON: None TECHNIQUE: AP pelvis and bilateral knee 5 views. AP bilateral knees standing one view. 3 views each elbow. FINDINGS: AP BILATERAL KNEE: There is minimal loss of bilateral medial and lateral compartment joint space. No visible acute fracture, dislocation or lytic process seen. RIGHT ELBOW: There is no visible acute fracture, dislocation or subluxation seen. No joint effusion. No bony erosive changes. LEFT ELBOW: There is no visible acute fracture, dislocation or subluxation seen. There is no joint effusion. No bony erosive changes. AP PELVIS AND BILATERAL HIPS: There is normal symmetry of bilateral hip joints and SI joints. No visible acute fracture, dislocation or subluxation seen. AP and frog-leg views of both hips reveal maintained hip joint space. No bony erosive changes. The soft tissues are normal. 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 Unremarkable bilateral elbow exam. Unremarkable AP pelvis and bilateral hip joints.
--- NOTE | ~2021-09-08 | XR_ITS ---
EXAMINATION: XR ELBOW, BILATERAL XR KNEE AP KNEE STANDING, BILATERAL XR HIP, BILATERAL INCLUDING PELVIS CLINICAL INFORMATION: Pain right knee, right elbow and right hip. COMPARISON: None TECHNIQUE: AP pelvis and bilateral knee 5 views. AP bilateral knees standing one view. 3 views each elbow. FINDINGS: AP BILATERAL KNEE: There is minimal loss of bilateral medial and lateral compartment joint space. No visible acute fracture, dislocation or lytic process seen. RIGHT ELBOW: There is no visible acute fracture, dislocation or subluxation seen. No joint effusion. No bony erosive changes. LEFT ELBOW: There is no visible acute fracture, dislocation or subluxation seen. There is no joint effusion. No bony erosive changes. AP PELVIS AND BILATERAL HIPS: There is normal symmetry of bilateral hip joints and SI joints. No visible acute fracture, dislocation or subluxation seen. AP and frog-leg views of both hips reveal maintained hip joint space. No bony erosive changes. The soft tissues are normal. 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 Unremarkable bilateral elbow exam. Unremarkable AP pelvis and bilateral hip joints.
== END 2021-09-08 13:07 | disposition home or self-care (01) ==
LOC: HO.MRI 13:06
PROVIDERS: Absent Provider Internal Medicine; PCP Internal Medicine
DX: M25.521 Pain in right elbow (principal); M25.522 Pain in left elbow; M25.551 Pain in right hip; M25.552 Pain in left hip; M25.561 Pain in right knee; M25.562 Pain in left knee; N28.1 Cyst of kidney, acquired
CPT/HCPCS: 73080; 73521; 73565; 74181; A9585

== ENCOUNTER 2021-10-01 12:37 | Outpatient (REF) | payer OTHER, SELFPAY | END 2021-10-01 12:38 | disposition home or self-care (01) | LOC: HO.LAB 12:37 | PROVIDERS: PCP Internal Medicine | DX: N39.0 Urinary tract infection, site not specified (principal); N28.1 Cyst of kidney, acquired; Z79.891 Long term (current) use of opiate analgesic; Z90.5 Acquired absence of kidney | CPT/HCPCS: 87086; 99212 ==

== ENCOUNTER → 2021-10-13 13:43 | Outpatient (BNVA) | payer OTHER, SELFPAY | PROVIDERS: PCP Internal Medicine; Visit Provider Physician Assistant Surgical | DX: E66.3 Overweight (principal); Z68.29 Body mass index [BMI] 29.0-29.9, adult; Z98.84 Bariatric surgery status | CPT/HCPCS: 99212 ==

== ENCOUNTER 2021-10-26 06:25 | Outpatient (REF) | payer OTHER, SELFPAY ==
--- NOTE | ~2021-10-26 | FL_ITS ---
EXAMINATION: XR FLUOROSCOPY WITH IMAGES CLINICAL INFORMATION: Sacrococcygeal disorder COMPARISON: July 09, 2021 TECHNIQUE: Fluoroscopy performed by Dr. Brando Smith. Fluoroscopy time: 0.1 minutes DAP: 0.0240 mGycm2 Images: 1 FINDINGS: Contrast and needle seen overlying the left sacroiliac joint. FL/FL guidance in treatment room IMPRESSION: Intraoperative fluoroscopy provided for pain management procedure.
== END 2021-10-26 06:26 | disposition home or self-care (01) ==
LOC: HO.RADIR 06:25
PROVIDERS: Visit Provider Anesthesiology
DX: M53.3 Sacrococcygeal disorders, not elsewhere classified (principal); M46.1 Sacroiliitis, not elsewhere classified; M47.816 Spondylosis without myelopathy or radiculopathy, lumbar region
CPT/HCPCS: 27096

== ENCOUNTER 2021-10-27 13:28 | Outpatient (REF) | payer OTHER, SELFPAY ==
--- NOTE | ~2021-10-27 | MM_ITS ---
EXAMINATION: MM DIAGNOSTIC DIGITAL BREAST TOMOSYNTHESIS, BILATERAL US DIAGNOSTIC ULTRASOUND BREAST, LEFT CLINICAL INFORMATION: Due for yearly. Patient notes palpable grape-size lesion left breast lower inner quadrant for approximately 2 weeks. Personal history bilateral reduction mammoplasty, 2007. Family history breast cancer, sister and mother. The lifetime risk of breast cancer based on the Tyrer-Cuzick Model is 17%. COMPARISON: Mammography: 11/19/2020, 11/19/2019, 02/01/2019, 07/26/2018, 07/13/2017 TECHNIQUE: Digital breast tomosynthesis is performed in both the craniocaudal and mediolateral oblique views along with computer-aided detection (CAD). Synthesized 2D images are generated from the tomosynthesis. Ultrasound left breast is targeted to the area of clinical concern lower inner left breast using grayscale imaging and color Doppler without and with harmonics. Patient is able to point to area of concern at time of imaging. FINDINGS: There are scattered areas of fibroglandular density (ACR BI-RADS breast composition Category b). Parenchymal pattern is similar to prior studies. There is no developing density or interval mass or architectural abnormality. There is minor scarring consistent with the reduction mammoplasty. There are no abnormal calcifications. Some coarse calcifications right breast upper inner quadrant have resolved since 2018. The axilla are unremarkable. The skin contours are smooth. No interval skin thickening. No coarsening of the Andrés's ligaments. There is no mammographic correlate for patient's symptoms lower inner left breast. Ultrasound demonstrates no cystic or solid mass, architectural abnormality, or focal duct ectasia. No skin thickening or edema tracking in the soft tissue planes. Results are discussed with the patient at time of visit, using an hotel receptionist. MM/MM tomosynthesis diagnostic BI IMPRESSION: -No mammographic evidence of malignancy or significant change from prior studies. -Unremarkable targeted left breast ultrasound.. ASSESSMENT: BI-RADS 2: Benign RECOMMENDATION: 1. Patient should be managed based on the clinical impression. If clinically indicated, further evaluation may be considered with surgical consult. Decision to proceed with biopsy should be based on clinical grounds and degree of clinical concern. 2. Otherwise, routine annual screening mammography. This patient's information was entered into a reminder system with a target due date for their next mammogram.
== END 2021-10-27 13:29 | disposition home or self-care (01) ==
LOC: HO.MAMMO 13:28
PROVIDERS: PCP Internal Medicine; Visit Provider Internal Medicine
DX: N63.24 Unspecified lump in the left breast, lower inner quadrant (principal)
CPT/HCPCS: 76642; 77062; 77066

== ENCOUNTER 2021-10-28 20:03 | Inpatient (IN) | payer OTHER, SELFPAY ==
[2021-10-28 20:12] VITALS: BP 108/80; PULSE 78; RESP 18; TEMP 36.3; O2SAT 99; BMI 28.1
[2021-10-28 20:36] LABS: Appearance Urine HAZY; Color Urine YELLOW; Glucose Urine UA NEG (NEG); Leukocyte Esterase Urine 1+ (NEG); Nitrite Urine POS (NEG); PH 5.5 (5.0-8.0); UACC Culture Trigger YES; Urine Blood NEG (NEG); Urine Ketones NEG (NEG); Urine Protein NEG (NEG-TRACE)
[2021-10-28 20:40] LABS: MANUAL DIFF FLAG NO
[2021-10-28 20:42] LABS: Bacteria Urine 4+ /LPF
[2021-10-28 20:44] LABS: Calcium Oxalate Crystals Urine TRACE /LPF; RBC Urine 0-2 /HPF (0); Squamous Epithelial Cell Urine 3+ /LPF
[2021-10-28 20:46] LABS: Basophils Percent Auto 0.6 % (0-2); Eosinophils Percent Auto 0.1 % (0-4); Hemoglobin 14.2 g/dl (12.0-16.0); Imm Gran Abs Auto 0.02 X10*3/uL (0.00-0.03); Imm Gran Pct Auto 0.3 % (0.0-0.4); Lymphocytes Absolute Auto 2.2 X10*3/uL (1.2-4.9); Lymphocytes Percent Auto 31.4 % (20-40); Mean Corpuscular Hemoglobin 32.9 pg (27.0-33.0); Mean Corpuscular Volume 99.8 fL (80.0-98.0); Mean Platelet Volume 8.9 fL (9.4-12.3); Monocytes Absolute Auto 0.7 X10*3/uL (0.1-1.2); Monocytes Percent Auto 9.9 % (2-11); Neutrophils Percent Auto 57.7 % (45-73); Platelet Count 331 X10*3/uL (160-400); Red Blood Count 4.31 X10*6/uL (4.20-5.50); Red Cell Distribution Width 11.6 % (11.0-16.0); White Blood Count 6.9 X10*3/uL (4.8-10.8)
[2021-10-28 20:46] LABS: Amphetamine Screen Urine Not Detected (Not Detect); Barbiturates, Urine Not Detected (Not Detect); Benzodiazepines Screen Urine Not Detected (Not Detect); Cannabinoid Screen Urine Not Detected (Not Detect); Cocaine Screen Urine Not Detected (Not Detect); Fentanyl, urine Not Detected (Not Detect); Opiate Screen Urine Not Detected (Not Detect); Phencyclidine Screen Urine Not Detected (Not Detect)
[2021-10-28 20:56] LABS: COVID-19 Test Negative (Negative)
[2021-10-28 20:57] LABS: Acetaminophen LAB < 1 mcg/mL (<30); Alanine Aminotransferase 161 U/L (0-31); Albumin Level 3.9 g/dL (3.5-5.0); Alkaline Phosphatase 187 U/L (39-117); Anion Gap 11 (12-20); Aspartate Amino Transferase 234 U/L (5-31); Bilirubin Total 0.4 mg/dL (0.0-1.0); Blood Urea Nitrogen 15 mg/dL (9-16); Calcium 8.8 mg/dL (8.4-10.2); Carbon Dioxide 29 mmol/L (22-29); Chloride 103 mmol/L (96-108); Creatinine Clr Calc Pharmacy 57.5; Estimated Glomerular Filt Rate 52; Ethanol < 10 mg/dL; Glucose Random 100 mg/dL (60-115); Potassium 4.8 mmol/L (3.3-5.1); Salicylate < 5.0 mg/dL (15-30); Sodium 138 mmol/L (135-145); Total Protein 6.6 g/dL (6.5-8.0)
--- NOTE | 2021-10-28 21:49 | PHA.MEDREC ---
Pharmacy Consult ? Medication Reconciliation RN has completed the medication reconciliation. Pharmacy reviewed
--- NOTE | 2021-10-28 22:42 | ED_ITS ---
HPI - Psych General Chief Complaint: Psychiatric Symptoms Stated Complaint: crisis Time Seen by Provider: 10/28/21 20:20 Source: patient Mode of arrival: ambulatory Limitations: no limitations History of Present Illness HPI Narrative: 50-year-old female past medical history significant for elevated transaminases, anxiety, anemia, GERD, hyperlipidemia presenting to the emergency department via ambulance from [facility] with suicidal ideation with plan x3 days. Patient tells she does not know what triggered her to feel this way however she tells me she has been suicidal for a while, actively suicidal for the past 3 days with plan to hang herself. Patient tells me that she is hearing voices and seeing people were telling her to kill herself and harm herself and that she should not be here. Denies drugs, alcohol and tobacco. Tells me she is taking all her medications as prescribed. She denies any medical complaints at this time MD complaint: suicidal ideation and feels depressed Related Data Home Medications Medication Instructions Recorded Confirmed atorvastatin 10 mg tablet 1 tab DAILY 10/28/21 10/28/21 benztropine 1 mg tablet 1 tab PO BID 10/28/21 10/28/21 bisacodyl 5 mg tablet,delayed 2 tab PO BEDTIME 10/28/21 10/28/21 release (Laxative (bisacodyl)) cholecalciferol (vitamin D3) 25 1 cap PO DAILY 10/28/21 10/28/21 mcg (1,000 unit) capsule (Vitamin D3) cyanocobalamin (vitamin B-12) 2 tab sublingual DAILY 10/28/21 10/28/21 1,000 mcg sublingual lozenge duloxetine 60 mg capsule,delayed 1 cap PO BEDTIME 10/28/21 10/28/21 release ferrous sulfate 325 mg (65 mg 1 tab PO DAILY 10/28/21 10/28/21 iron) tablet gabapentin 800 mg tablet 1 tab PO TID 10/28/21 10/28/21 haloperidol 5 mg tablet 1 tab PO BID 10/28/21 10/28/21 meclizine 25 mg tablet 1 tab PO TID PRN dizziness 10/28/21 10/28/21 naproxen 500 mg tablet 1 tab PO DAILY PRN Pain 10/28/21 10/28/21 omeprazole 20 mg capsule,delayed 1 cap PO DAILY 10/28/21 10/28/21 release prazosin 1 mg capsule 1 cap PO BEDTIME nightmares 10/28/21 10/28/21 sucralfate 100 mg/mL oral 10 ml PO BEDTIME 10/28/21 10/28/21 suspension sumatriptan succinate 50 mg tablet 1 tab PO BID PRN Migraine Headache 10/28/21 10/28/21 trazodone 50 mg tablet 1 - 2 tab PO BEDTIME PRN insomnia 10/28/21 10/28/21 Previous Rx's Medication Instructions Recorded tramadol 50 mg tablet 100 mg PO Q8H PRN pain (scale 07/21/21 score 4-6) 30 days #180 tabs midodrine 5 mg tablet 5 mg PO TID #270 tabs 09/28/21 albuterol sulfate 90 mcg/actuation 2 puff inhalation Q6H PRN 10/27/21 aerosol inhaler (ProAir HFA) shortness of breath or wheezing 30 days #8.5 grams cefuroxime axetil 250 mg tablet 250 mg PO BID 5 days #10 tabs 10/28/21 Allergies Allergy/AdvReac Type Severity Reaction Status Date / Time No Known Allergies Allergy Verified 10/26/21 09:55 Review of Systems Review of Systems: Constitutional : No Weight loss, No Fever, No Chills, No Fatigue, No Malaise ENT/Mouth : No sore throat, No Rhinorrhea Eyes: No Eye Pain, No Swelling, No Redness Cardiovascular : No Chest Pain, No SOB, No Dyspnea on Exertion, No Orthopnea, No Edema, No Palpitations Respiratory : No Cough, No Sputum, No Wheezing Gastrointestinal : No Nausea, No Vomiting, No Diarrhea, No Constipation, No abdominal Pain, No Hematochezia, No Melena Genitourinary : No Dysuria, No Urinary Frequency, No Hematuria, Musculoskeletal : No joint pain, No Myalgias, No Joint Swelling Skin : No Skin Lesions, No rash Neuro : No Weakness, No Numbness, No Dizziness, No Headache Psych : + Anxiety/Panic, + Depression, + SI, No HI All other systems reviewed and are negative Yes all other systems are reviewed and are negative [facility] Past Medical History Attestation statement: The following information was validated with the patient. Source: old records reviewed and nursing notes reviewed Medical History Anxiety Asthma Avascular necrosis of femoral head Bilateral carpal tunnel syndrome Chronic constipation Colon cancer screening Constipation Diverticulosis Dizziness of unknown etiology Dyspareunia Dyspareunia, female GERD (gastroesophageal reflux disease) Hx of schizophrenia Hyperlipidemia Incisional hernia without obstruction or gangrene Ingrown toenail Insomnia Iron deficiency anemia Lumbar degenerative disc disease Major depression, recurrent Migraine Orthostatic hypotension MIGUEL (obstructive sleep apnea) Overweight (BMI 25.0-29.9) Painful sexual intercourse Panic attacks Peroneal neuropathy PTSD (post-traumatic stress disorder) Pyelonephritis Renal cyst Renal cyst Sacroiliitis Spondylosis of lumbar spine Tremor Tubular adenoma UTI (urinary tract infection) Vitamin D deficiency Surgical History H/O left nephrectomy History of bilateral breast reduction surgery History of bladder repair surgery (~03/2015) History of bladder surgery (~10/2009) History of cholecystectomy History of colonoscopy History of endoscopy (~06/2016) History of gastric bypass (~2008) History of hernia repair (~03/29/10) History of hysterectomy History of incisional hernia repair (~1999) History of surgery Hx of cystoscopy Hx of umbilical hernia repair (~1999) S/P cystoscopy (~07/30/12) S/P laparoscopic sleeve gastrectomy S/P panniculectomy Family History Family History Father Liver cancer Mother Breast cancer Maternal Grandmother Breast cancer Sister Lung cancer Other Mental health problem Social History Social History Housing: Apartment Alcohol intake: never Patient Tobacco Use Status: Never used Tobacco e-Cigarette/Vaping Use: Never Used Second Hand Smoke Exposure: No Advance Directives: No Advance Directives Information Provided: No service: No Current occupational status: disabled Cognitive needs: No Hearing needs: No Vision needs: No Physical Exam Vital Signs: Vital Signs: Last Vital Signs Temp 97.3 F 10/28/21 20:12 Pulse 78 10/28/21 20:12 Resp 18 10/28/21 20:12 BP 108/80 10/28/21 20:12 Pulse Ox 99 10/28/21 20:12 O2 Del Method 10/28/21 20:12 BMI result Body Mass Index 28.1 Vital signs stable. Appearance: Alert.? Oriented X3.? No acute distress.? Head: Normocephalic, atraumatic, no step-offs or deformities Eyes: Pupils equal, round and reactive to light.? Neck: Normal inspection.? Neck supple.? CVS: Normal heart rate and rhythm.? Pulses normal.? Respiratory: No respiratory distress.? Breath sounds normal.? Abdomen: Soft and nontender.? Skin: Skin warm and dry.? Normal skin color.? Normal skin turgor.? Extremities: No lower extremity edema.? No calf ttp. 5/5 strength to bilateral upper and lower extremities Neuro: Oriented X 3.? No motor deficit.? No sensory deficit. CN 2-12 intact Course Reevaluation(s) Reevaluation #1: Patient's CBC appears to be around baseline. Chemistry with no acute electrolyte abnormalities requiring intervention. Patient's transaminases noted to be elevated, she has had elevated transaminases in the past aging back to 2018. Patient has no abdominal tenderness to palpation therefore low suspicion for intra-abdominal concerns such as cholecystitis, choledocholithiasis UA positive for infection. Urine toxicology negative. Negative salicylates, acetaminophen. Negative ethanol. Patient is COVID negative. Patient will be started on antibiotic for UTI Ceftin 250 mg p.o. b.i.d. x5 days. At this time patient will be placed in physician observation to allow more time to be evaluated by the [facility] team. At the time observation started patient common cooperative no acute distress Time: 22:48 MDM - Psych MDM Narrative Medical decision making narrative: [id number] 50-year-old female presents from [facility] with suicidal ideation with plan x3 days. No medical complaints. Physical examination benign. Plan at this time is medical clearance and evaluation by the [facility] health team. Medical Records Attestation: I reviewed the patient's medical records. Lab Data Attestation: I reviewed the patient's lab results. Result diagrams: 10/28/21 20:35 10/28/21 20:35 Labs: Lab Results 10/28/21 10/28/21 10/28/21 Range/Units 20:26 20:26 20:35 WBC 6.9 (4.8-10.8) X10*3/uL RBC 4.31 (4.20-5.50) X10*6/uL Hgb 14.2 (12.0-16.0) g/dl Hct 43.0 (37.0-47.0) % MCV 99.8 H (80.0-98.0) fL MCH 32.9 (27.0-33.0) pg MCHC 33.0 (31.0-35.0) g/dl RDW 11.6 (11.0-16.0) % Plt Count 331 (160-400) X10*3/uL MPV 8.9 L (9.4-12.3) fL Immature Gran % (Auto) 0.3 (0.0-0.4) % Neut % (Auto) 57.7 (45-73) % Lymph % (Auto) 31.4 (20-40) % Centre % (Auto) 9.9 (2-11) % Eos % (Auto) 0.1 (0-4) % Baso % (Auto) 0.6 (0-2) % Lymph # (Auto) 2.2 (1.2-4.9) X10*3/uL Centre # (Auto) 0.7 (0.1-1.2) X10*3/uL Eos # (Auto) 0.0 (0.0-0.4) X10*3/uL Baso # (Auto) 0.0 (0.0-0.2) X10*3/uL Abs Immat Gran (auto) 0.02 (0.00-0.03) X10*3/uL Absolute Neuts (auto) 4.0 (2.0-8.3) x10*3/uL Absolute Nucleated RBC 0.000 (0.0-0.012) X10*3/uL Nucleated RBC % (auto) 0.0 (0.0-0.2) /100WBC Sodium (135-145) mmol/L Potassium (3.3-5.1) mmol/L Chloride (96-108) mmol/L Carbon Dioxide (22-29) mmol/L Anion Gap (12-20) BUN (9-16) mg/dL Creatinine (0.5-1.4) mg/dL Estim Creat Clear Calc Estimated GFR Random Glucose (60-115) mg/dL Calcium (8.4-10.2) mg/dL Magnesium (1.6-2.6) mg/dL Total Bilirubin (0.0-1.0) mg/dL AST (5-31) U/L ALT (0-31) U/L Alkaline Phosphatase (39-117) U/L Total Protein (6.5-8.0) g/dL Albumin (3.5-5.0) g/dL Urine Color YELLOW Urine Appearance HAZY Urine pH 5.5 (5.0-8.0) Ur Specific [place] 1.020 (1.005-1.025) Urine Protein NEG (NEG-TRACE) MG/DL Urine Glucose (UA) NEG (NEG) MG/DL Urine Ketones NEG (NEG) MG/DL Urine Blood NEG (NEG) Urine Nitrite POS H (NEG) Ur Leukocyte Esterase 1+ H (NEG) Urine RBC 0-2 (0) /HPF Urine WBC 10-14 H (0-4) /HPF Ur Squamous Epith Cells 3+ /LPF Calcium Oxalate Crystal TRACE /LPF Urine Bacteria 4+ /LPF Salicylates (15-30) mg/dL Urine Opiates Screen Not Detected (Not Detect) Urine Fentanyl Screen Not Detected (Not Detect) Acetaminophen (<30) mcg/mL Ur Barbiturates Screen Not Detected (Not Detect) Ur Phencyclidine Scrn Not Detected (Not Detect) Ur Amphetamines Screen Not Detected (Not Detect) U Benzodiazepines Scrn Not Detected (Not Detect) Urine Cocaine Screen Not Detected (Not Detect) U Marijuana (THC) Screen Not Detected (Not Detect) Ethyl Alcohol mg/dL COVID-19 (JUANJO) (Negative) COVID-19 Clin Com 10/28/21 10/28/21 Range/Units 20:35 20:35 WBC (4.8-10.8) X10*3/uL RBC (4.20-5.50) X10*6/uL Hgb (12.0-16.0) g/dl Hct (37.0-47.0) % MCV (80.0-98.0) fL MCH (27.0-33.0) pg MCHC (31.0-35.0) g/dl RDW (11.0-16.0) % Plt Count (160-400) X10*3/uL MPV (9.4-12.3) fL Immature Gran % (Auto) (0.0-0.4) % Neut % (Auto) (45-73) % Lymph % (Auto) (20-40) % Centre % (Auto) (2-11) % Eos % (Auto) (0-4) % Baso % (Auto) (0-2) % Lymph # (Auto) (1.2-4.9) X10*3/uL Centre # (Auto) (0.1-1.2) X10*3/uL Eos # (Auto) (0.0-0.4) X10*3/uL Baso # (Auto) (0.0-0.2) X10*3/uL Abs Immat Gran (auto) (0.00-0.03) X10*3/uL Absolute Neuts (auto) (2.0-8.3) x10*3/uL Absolute Nucleated RBC (0.0-0.012) X10*3/uL Nucleated RBC % (auto) (0.0-0.2) /100WBC Sodium 138 (135-145) mmol/L Potassium 4.8 (3.3-5.1) mmol/L Chloride 103 (96-108) mmol/L Carbon Dioxide 29 (22-29) mmol/L Anion Gap 11 L (12-20) BUN 15 (9-16) mg/dL Creatinine 1.10 (0.5-1.4) mg/dL Estim Creat Clear Calc 57.5 Estimated GFR 52 Random Glucose 100 (60-115) mg/dL Calcium 8.8 (8.4-10.2) mg/dL Magnesium 2.0 (1.6-2.6) mg/dL Total Bilirubin 0.4 (0.0-1.0) mg/dL AST 234 H (5-31) U/L ALT 161 H (0-31) U/L Alkaline Phosphatase 187 H D (39-117) U/L Total Protein 6.6 (6.5-8.0) g/dL Albumin 3.9 (3.5-5.0) g/dL Urine Color Urine Appearance Urine pH (5.0-8.0) Ur Specific [place] (1.005-1.025) Urine Protein (NEG-TRACE) MG/DL Urine Glucose (UA) (NEG) MG/DL Urine Ketones (NEG) MG/DL Urine Blood (NEG) Urine Nitrite (NEG) Ur Leukocyte Esterase (NEG) Urine RBC (0) /HPF Urine WBC (0-4) /HPF Ur Squamous Epith Cells /LPF Calcium Oxalate Crystal /LPF Urine Bacteria /LPF Salicylates < 5.0 L (15-30) mg/dL Urine Opiates Screen (Not Detect) Urine Fentanyl Screen (Not Detect) Acetaminophen < 1 (<30) mcg/mL Ur Barbiturates Screen (Not Detect) Ur Phencyclidine Scrn (Not Detect) Ur Amphetamines Screen (Not Detect) U Benzodiazepines Scrn (Not Detect) Urine Cocaine Screen (Not Detect) U Marijuana (THC) Screen (Not Detect) Ethyl Alcohol < 10 mg/dL COVID-19 (JUANJO) Negative (Negative) COVID-19 Clin Com See Note Critical Care Time Critical Care Time Critical Care Time: No Discharge Plan Discharge Clinical Impression: Suicide ideation, UTI (urinary tract infection) Patient Disposition: Still a Patient Additional Instructions: Please discharge this patient on antibiotics for UTI. Was given Ceftin here in the hospital. Prescriptions: New cefuroxime axetil 250 mg tablet 250 mg PO BID 5 Days Qty: 10 0RF No Action midodrine 5 mg tablet 5 mg PO TID Qty: 270 1RF albuterol sulfate [ProAir HFA] 90 mcg/actuation HFA aerosol inhaler 2 puff inhalation Q6H PRN (Reason: shortness of breath or wheezing) 30 Days Qty: 8.5 5RF haloperidol 5 mg tablet 1 tab PO BID trazodone 50 mg tablet 1 - 2 tab PO BEDTIME PRN (Reason: insomnia) atorvastatin 10 mg tablet 1 tab DAILY prazosin 1 mg capsule 1 cap PO BEDTIME sumatriptan succinate 50 mg tablet 1 tab PO BID PRN (Reason: Migraine Headache) meclizine 25 mg tablet 1 tab PO TID PRN (Reason: dizziness) ferrous sulfate 325 mg (65 mg iron) tablet 1 tab PO DAILY benztropine 1 mg tablet 1 tab PO BID bisacodyl [Laxative (bisacodyl)] 5 mg tablet,delayed release (DR/EC) 2 tab PO BEDTIME naproxen 500 mg tablet 1 tab PO DAILY PRN (Reason: Pain) cholecalciferol (vitamin D3) [Vitamin D3] 25 mcg (1,000 unit) capsule 1 cap PO DAILY duloxetine 60 mg capsule,delayed release(DR/EC) 1 cap PO BEDTIME gabapentin 800 mg tablet 1 tab PO TID sucralfate 100 mg/mL suspension 10 ml PO BEDTIME omeprazole 20 mg capsule,delayed release(DR/EC) 1 cap PO DAILY cyanocobalamin (vitamin B-12) 1,000 mcg lozenge 2 tab sublingual DAILY tramadol 50 mg tablet 100 mg PO Q8H PRN (Reason: pain (scale score 4-6)) 30 Days Qty: 180 0RF
[2021-10-29] VITALS: BP 110/80; PULSE 64; RESP 16; TEMP 36.3; O2SAT 99
--- NOTE | 2021-10-29 | ECG_ITS ---
Test Reason : med clearance Blood Pressure : / mmHG Vent. Rate : 072 BPM Atrial Rate : 072 BPM P-R Int : 136 ms QRS Dur : 072 ms QT Int : 392 ms P-R-T Axes : 057 062 036 degrees QTc Int : 429 ms Normal sinus rhythm Low voltage QRS Borderline ECG When compared with ECG of 03-JUL-2019 11:14, No significant change was found Referred By: Halina Peraza Electronically Signed By:KATHARINA PRINGLE
--- NOTE | 2021-10-29 06:40 | PC.NURSE ---
Patient slept through the night, no distress observed/reported, med rec completed/pending provider's approval, behavior appropriate, patient is Yakut speaking mostly, Patient is + for UTI currently being treated with Ceftin 250 mg BID, medication compliant, pending M3 admission, disposition per [facility] is section 12 inpatient bed search, will continue to monitor
--- NOTE | 2021-10-29 08:54 | PC.NURSE ---
Report from Kevan, resting quietly at this time, NAD. Awaiting admission.
[2021-10-29] MEDS: LORazepam 1 MG TABLET 2 MG PO (11:11)
--- NOTE | 2021-10-29 12:45 | PHA.MEDREC ---
Pharmacy Consult ? Medication Reconciliation Pharmacy has completed the medication reconciliation. Verified med rec done by Kevan
--- NOTE | 2021-10-29 13:44 | PC.NURSE ---
Late entry: nurse to nurse given to Alka CONNER
[2021-10-29 14:00] VITALS: BP 113/71; PULSE 95; RESP 18; TEMP 36.4; O2SAT 92
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
--- NOTE | 2021-10-29 17:36 | PC.NURSE ---
Patient is a 50 YO female, admitted from [facility] ED on a CV. DX: Schizophrenia Spectrum, Moderate Depressive Disorder; PTSD. Nursing assessment was completed w/ manufacturing engineer machining present. Patient reports she hs been having command auditory hallucinations telling her to hang herself and, per patient, she attempted to overdose on her medications prior to arrival but her prevented her from doing so. Patient reports she has been medication compliant, and that typically, her medications are helpful. She reports VH of shadows. She states that she is currently having AH and has SI with plan to hang herself but states she can be safe while on the unit and will let staff know if she feels unsafe. Patient has an extensive medical history that includes: gastric bypass, nephrectomy, HTN, hyperthyroidism. Patient denies use of ETOH or other substances. On arrival, patient was dressed in a hospital zackary, affect anxious, she was rocking but able to complete assessment.
[2021-10-29] MEDS: clonazePAM 0.5 MG TABLET PO (18:35)
[2021-10-29] MEDS: DULoxetine HCl 60 MG CAPSULE.DR PO (21:22)
[2021-10-29] MEDS: Prazosin HCL 1 MG CAPSULE PO (21:22)
[2021-10-29] MEDS: Gabapentin 400 MG CAPSULE 800 MG PO (21:23)
[2021-10-29] MEDS: HaloperidoL 5 MG TABLET 10 MG PO (21:23)
[2021-10-29] MEDS: Benztropine Mesylate 1 MG TABLET PO (21:23)
[2021-10-29] MEDS: bisacodyL 5 MG TABLET.DR 10 MG PO (21:23)
[2021-10-29 21:26] VITALS: BP 104/60; PULSE 70; RESP 14; TEMP 36.3; O2SAT 95
[2021-10-30] MEDS: Omeprazole 20 MG CAPSULE.DR PO (06:41)
[2021-10-30 08:41] LABS: Estimated Average Glucose 105 mg/dL; Hemoglobin A1c % 5.3 %
[2021-10-30 08:49] LABS: Alanine Aminotransferase 75 U/L (0-31); Albumin Level 3.6 g/dL (3.5-5.0); Alkaline Phosphatase 145 U/L (39-117); Anion Gap 10 (12-20); Aspartate Amino Transferase 35 U/L (5-31); Bilirubin Total 0.5 mg/dL (0.0-1.0); Blood Urea Nitrogen 16 mg/dL (9-16); Calcium 8.5 mg/dL (8.4-10.2); Carbon Dioxide 31 mmol/L (22-29); Chloride 104 mmol/L (96-108); Cholesterol 233 mg/dL; Creatinine Clr Calc Pharmacy 65.3; Estimated Glomerular Filt Rate > 60; Glucose Fasting 88 mg/dL (60-99); HDL Cholesterol 59 mg/dL; LDL Cholesterol Calculated 154 mg/dl; Potassium 4.6 mmol/L (3.3-5.1); Sodium 140 mmol/L (135-145); Triglycerides 101 mg/dL
[2021-10-30 09:03] LABS: Thyroid Stimulating Hormone 0.77 uIU/mL (0.32-4.0)
[2021-10-30] MEDS: Midodrine HCl 5 MG TABLET PO ×3 (09:44→16:00)
[2021-10-30] MEDS: Atorvastatin Calcium 10 MG TABLET PO (09:45)
[2021-10-30] MEDS: Gabapentin 400 MG CAPSULE 800 MG PO ×3 (09:45→21:09)
[2021-10-30] MEDS: HaloperidoL 5 MG TABLET PO ×2 (09:45→13:43)
[2021-10-30] MEDS: Benztropine Mesylate 1 MG TABLET PO ×2 (09:45→21:10)
[2021-10-30] MEDS: Ferrous Sulfate 324 MG TABLET.DR PO (09:46)
[2021-10-30] MEDS: Cholecalciferol (Vitamin D3) 25 MCG TABLET PO (09:47)
[2021-10-30] MEDS: polyethylene glycoL 3350 17 GM POWD.PACK PO (09:47)
[2021-10-30] MEDS: clonazePAM 0.5 MG TABLET PO ×2 (09:51→21:09)
[2021-10-30 09:56] VITALS: BP 118/70; PULSE 72; RESP 14; O2SAT 97
--- NOTE | 2021-10-30 11:38 | P.PNPSI_ITS ---
Subjective Subjective Date of Service: 10/31/21 Reason For Visit: SI Subjective Notes: [place] Warning and Conditional Voluntary Healthcare Proxy: No Guardianship: No Medical Problems Affecting Mental Status: No Interim History: Patient seen and discussed with team. Patient evaluated today and upon interview she is found sleeping, declines to meet. Medication Compliance: Yes Side effects from medications: No Attending Groups: No Review of Systems Acute medical concerns: No Medical Review of Systems: unchanged Mental Status Exam Mental Status Exam Narrative: A&O. Overweight, in hospital attire, laying down in bed, under blanket. Poor eye contact, attentive. No Tics or Tremors. No abnormal involuntary movements. Calm, cooperative, engaged. Non-pressured speech, non-spontaneous, quiet speech. No prolonged speech latency or dysarthria. Mood is [did not state], affect is constricted. Denies SI today. Denies SIB/HI upon inquiry. Denies CAH today, denies VH or delusional thought content. Thoughts are ruminative. No known cognitive or memory impairment. Insight/ Judgment fair and adequate. Diagnostics Vital Signs (24Hr): Vital Signs - 24 hr 10/29/21 14:00 10/29/21 21:26 10/30/21 09:56 Temperature 97.5 F 97.4 F Pulse Rate 95 70 72 Respiratory Rate 18 14 14 Blood Pressure 113/71 104/60 118/70 Pulse Oximetry 92 95 97 Oxygen Delivery Method Room Air Room Air Room Air BMI result Body Mass Index 28.1 Labs Results: 10/28/21 20:35 10/30/21 07:25 Labs: Laboratory Results - last 48 hr 10/28/21 10/28/21 10/28/21 20:26 20:26 20:35 WBC 6.9 RBC 4.31 Hgb 14.2 Hct 43.0 MCV 99.8 H MCH 32.9 MCHC 33.0 RDW 11.6 Plt Count 331 MPV 8.9 L Immature Gran % (Auto) 0.3 Neut % (Auto) 57.7 Lymph % (Auto) 31.4 [place] % (Auto) 9.9 Eos % (Auto) 0.1 Baso % (Auto) 0.6 Lymph # (Auto) 2.2 [place] # (Auto) 0.7 Eos # (Auto) 0.0 Baso # (Auto) 0.0 Abs Immat Gran (auto) 0.02 Absolute Neuts (auto) 4.0 Absolute Nucleated RBC 0.000 Nucleated RBC % (auto) 0.0 Sodium Potassium Chloride Carbon Dioxide Anion Gap BUN Creatinine Estim Creat Clear Calc Estimated GFR Random Glucose Fasting Glucose Estimat Average Glucose Hemoglobin A1c % Calcium Magnesium Total Bilirubin AST ALT Alkaline Phosphatase Total Protein Albumin Triglycerides Cholesterol LDL Cholesterol, Calc HDL Cholesterol TSH Urine Color YELLOW Urine Appearance HAZY Urine pH 5.5 Ur Specific [place] 1.020 Urine Protein NEG Urine Glucose (UA) NEG Urine Ketones NEG Urine Blood NEG Urine Nitrite POS H Ur Leukocyte Esterase 1+ H Urine RBC 0-2 Urine WBC 10-14 H Ur Squamous Epith Cells 3+ Calcium Oxalate Crystal TRACE Urine Bacteria 4+ Salicylates Urine Opiates Screen Not Detected Urine Fentanyl Screen Not Detected Acetaminophen Ur Barbiturates Screen Not Detected Ur Phencyclidine Scrn Not Detected Ur Amphetamines Screen Not Detected U Benzodiazepines Scrn Not Detected Urine Cocaine Screen Not Detected U Marijuana (THC) Screen Not Detected Ethyl Alcohol COVID-19 ([facility]) COVID-19 Clin Com 10/28/21 10/28/21 10/30/21 20:35 20:35 07:25 WBC RBC Hgb Hct MCV MCH MCHC RDW Plt Count MPV Immature Gran % (Auto) Neut % (Auto) Lymph % (Auto) [place] % (Auto) Eos % (Auto) Baso % (Auto) Lymph # (Auto) [place] # (Auto) Eos # (Auto) Baso # (Auto) Abs Immat Gran (auto) Absolute Neuts (auto) Absolute Nucleated RBC Nucleated RBC % (auto) Sodium 138 140 Potassium 4.8 4.6 Chloride 103 104 Carbon Dioxide 29 31 H Anion Gap 11 L 10 L BUN 15 16 Creatinine 1.10 0.97 Estim Creat Clear Calc 57.5 65.3 Estimated GFR 52 > 60 Random Glucose 100 Fasting Glucose 88 Estimat Average Glucose Hemoglobin A1c % Calcium 8.8 8.5 Magnesium 2.0 Total Bilirubin 0.4 0.5 AST 234 H 35 H D ALT 161 H 75 H Alkaline Phosphatase 187 H D 145 H D Total Protein 6.6 6.0 L Albumin 3.9 3.6 Triglycerides 101 Cholesterol 233 D LDL Cholesterol, Calc 154 HDL Cholesterol 59 TSH 0.77 Urine Color Urine Appearance Urine pH Ur Specific [place] Urine Protein Urine Glucose (UA) Urine Ketones Urine Blood Urine Nitrite Ur Leukocyte Esterase Urine RBC Urine WBC Ur Squamous Epith Cells Calcium Oxalate Crystal Urine Bacteria Salicylates < 5.0 L Urine Opiates Screen Urine Fentanyl Screen Acetaminophen < 1 Ur Barbiturates Screen Ur Phencyclidine Scrn Ur Amphetamines Screen U Benzodiazepines Scrn Urine Cocaine Screen U Marijuana (THC) Screen Ethyl Alcohol < 10 COVID-19 ([facility]) Negative COVID-19 Clin Com See Note 10/30/21 07:25 WBC RBC Hgb Hct MCV MCH MCHC RDW Plt Count MPV Immature Gran % (Auto) Neut % (Auto) Lymph % (Auto) [place] % (Auto) Eos % (Auto) Baso % (Auto) Lymph # (Auto) [place] # (Auto) Eos # (Auto) Baso # (Auto) Abs Immat Gran (auto) Absolute Neuts (auto) Absolute Nucleated RBC Nucleated RBC % (auto) Sodium Potassium Chloride Carbon Dioxide Anion Gap BUN Creatinine Estim Creat Clear Calc Estimated GFR Random Glucose Fasting Glucose Estimat Average Glucose 105 Hemoglobin A1c % 5.3 Calcium Magnesium Total Bilirubin AST ALT Alkaline Phosphatase Total Protein Albumin Triglycerides Cholesterol LDL Cholesterol, Calc HDL Cholesterol TSH Urine Color Urine Appearance Urine pH Ur Specific [place] Urine Protein Urine Glucose (UA) Urine Ketones Urine Blood Urine Nitrite Ur Leukocyte Esterase Urine RBC Urine WBC Ur Squamous Epith Cells Calcium Oxalate Crystal Urine Bacteria Salicylates Urine Opiates Screen Urine Fentanyl Screen Acetaminophen Ur Barbiturates Screen Ur Phencyclidine Scrn Ur Amphetamines Screen U Benzodiazepines Scrn Urine Cocaine Screen U Marijuana (THC) Screen Ethyl Alcohol COVID-19 ([facility]) COVID-19 Clin Com Medications Medications Current Medications Al Hydroxide/Mg Hydroxide (Magnesium Hydrox/Alum Hydrox 30 Ml Oral.Susp) 30 ml PO Q6H PRN PRN Reason: Heartburn/Nausea Albuterol Sulfate (Albuterol Sulfate 90 Mcg 8 Gm Inhaler) 2 puff INHALE Q6H PRN PRN Reason: shortness of breath or wheezing Aripiprazole (Aripiprazole 5 Mg Tablet) 5 mg PO DAILY [facility] Atorvastatin Calcium (Atorvastatin Calcium 10 Mg Tablet) 10 mg PO DAILY [facility] Last Admin: 10/30/21 09:45 Dose: 10 mg Benztropine Mesylate (Benztropine Mesylate 1 Mg Tablet) 1 mg PO BID [facility] Last Admin: 10/30/21 09:45 Dose: 1 mg Bisacodyl (Bisacodyl 5 Mg Tablet.Dr) 10 mg PO BEDTIME [facility] Last Admin: 10/29/21 21:23 Dose: 10 mg Cefuroxime Axetil (Cefuroxime Axetil 250 Mg Tablet) 250 mg PO BID [facility] Stop: 11/02/21 23:59 Last Admin: 10/30/21 09:45 Dose: 250 mg Clonazepam (Clonazepam 0.5 Mg Tablet) 0.5 mg PO BID [facility] Duloxetine HCl (Duloxetine Hcl 60 Mg Capsule.) 60 mg PO BEDTIME [facility] Last Admin: 10/29/21 21:22 Dose: 60 mg Ferrous Sulfate (Ferrous Sulfate 324 Mg Tablet.) 324 mg PO DAILY [facility] Last Admin: 10/30/21 09:46 Dose: 324 mg Gabapentin (Gabapentin 400 Mg Capsule) 800 mg PO TID [facility] Last Admin: 10/30/21 09:45 Dose: 800 mg Haloperidol (Haloperidol 5 Mg Tablet) 5 mg PO BID@0800,1300 [facility] Last Admin: 10/30/21 09:45 Dose: 5 mg Haloperidol (Haloperidol 5 Mg Tablet) 10 mg PO BEDTIME [facility] Last Admin: 10/29/21 21:23 Dose: 10 mg Hydroxyzine HCl (Hydroxyzine Hcl 25 Mg Tablet) 25 mg PO BEDTIME PRN PRN Reason: Anxiety Magnesium Hydroxide (Milk Of Magnesia 30 Ml Oral.Susp) 30 ml PO DAILY PRN PRN Reason: Constipation Meclizine HCl (Meclizine Hcl 25 Mg Tablet) 25 mg PO TID PRN PRN Reason: dizziness Midodrine (Midodrine Hcl 5 Mg Tablet) 5 mg PO TIDWM [facility] Last Admin: 10/30/21 09:44 Dose: 5 mg Non-Formulary Medication (Lubiprostone) 8 mcg PO BID [facility] Omeprazole (Omeprazole 20 Mg Capsule.) 20 mg PO DAILY@0630 [facility] Last Admin: 10/30/21 06:41 Dose: 20 mg Polyethylene Glycol (Polyethylene Glycol 3350 17 Gm Powd.Pack) 17 gm PO DAILY [facility] Last Admin: 10/30/21 09:47 Dose: 17 gm Prazosin HCl (Prazosin Hcl 1 Mg Capsule) 2 mg PO BEDTIME [facility]; Protocol Sucralfate (Sucralfate Oral Suspension 1 Gm/10 Ml Oral.Susp) 1 gm PO BEDTIME [facility] Last Admin: 10/29/21 21:22 Dose: Not Given Sumatriptan Succinate (Sumatriptan Succinate 50 Mg Tablet) 50 mg PO BID PRN PRN Reason: Migraine Headache Tramadol HCl (Tramadol Hcl 50 Mg Tablet) 100 mg PO Q8H PRN PRN Reason: pain (scale score 4-6) Trazodone HCl (Trazodone Hcl 50 Mg Tablet) 50 mg PO BEDTIME PRN PRN Reason: Insomnia Vitamin D (Cholecalciferol (Vitamin D3) 25 Mcg Tablet) 25 mcg PO DAILY [facility] Last Admin: 10/30/21 09:47 Dose: 25 mcg Allergies Allergies Allergy/AdvReac Type Severity Reaction Status Date / Time No Known Allergies Allergy Verified 10/26/21 09:55 Assessment & Plan Assessment & Plan (1) MDD (major depressive disorder), recurrent, severe, with psychosis: Status: Acute Code(s): F33.3 - Major depressive disorder, recurrent, severe with psychotic symptoms (2) Post traumatic stress disorder (PTSD): Status: Acute Code(s): F43.10 - Post-traumatic stress disorder, unspecified Plan Xenia is a 50 y.o. female who carries a dx of MDD with psychotic features and PTSD. Pt presented to [facility] on 10/28/21 via ambulance after her psychiatrist (Dr. Maya Kathleen) sent her for evaluation due to SI with a plan to hang herself or cut herself. She disclosed she held a razor to her wrists but did not cut herself as her took it out of her hands. She endorses CAH telling her to kill herself. Denies illicit substance use, no alcohol abuse. Pt is med adherent. Plan: Consulted with OP psychiatrist who reports pt has reported benefit on haldol for AH and had been stable for some time. She reports concern for pt's depression. Will start lamictal 25 mg QHS for sx of depression, reviewed risks including s/s of SJS or rash. Pt has multiple medical co-morbidities, has hx of simple nephrectomy and transaminase (fatty liver disease? hx of hyperlipidemia). Consideration for choosing med with low SE profile. Q15 min safety checks, CV Monitor response to medications. Monitor for safety in the milieu. Discharge on stabilization. Patient seen. Chart reviewed. Discussed with team. Obtain collateral contact info?as needed I spent minutes with the patient and/or on the patient floor today, great er than?50% of which was spent counseling/coordinating care. Patient educated on: other Reason for contiued inpatient stay Substantial Risk for: harm to self and med/psych decompensation
[2021-10-30 21:07] VITALS: BP 105/65; PULSE 67; TEMP 36.4; O2SAT 93
[2021-10-30] MEDS: lamoTRIgine 25 MG TABLET PO (21:09)
[2021-10-30] MEDS: DULoxetine HCl 60 MG CAPSULE.DR PO (21:09)
[2021-10-30] MEDS: Prazosin HCL 1 MG CAPSULE 2 MG PO (21:09)
[2021-10-30] MEDS: bisacodyL 5 MG TABLET.DR 10 MG PO (21:10)
[2021-10-30] MEDS: HaloperidoL 5 MG TABLET 10 MG PO (21:10)
[2021-10-31] MEDS: Omeprazole 20 MG CAPSULE.DR PO (06:50)
[2021-10-31 09:15] VITALS: BP 107/62; PULSE 73; RESP 16; TEMP 36.4; O2SAT 98
[2021-10-31] MEDS: Gabapentin 400 MG CAPSULE 800 MG PO ×3 (09:29→21:16)
[2021-10-31] MEDS: Midodrine HCl 5 MG TABLET PO ×3 (09:29→17:42)
[2021-10-31] MEDS: Cholecalciferol (Vitamin D3) 25 MCG TABLET PO (09:30)
[2021-10-31] MEDS: Ferrous Sulfate 324 MG TABLET.DR PO (09:30)
[2021-10-31] MEDS: Benztropine Mesylate 1 MG TABLET PO ×2 (09:30→21:16)
[2021-10-31] MEDS: HaloperidoL 5 MG TABLET PO ×2 (09:31→12:56)
[2021-10-31] MEDS: clonazePAM 0.5 MG TABLET PO ×2 (09:31→21:16)
[2021-10-31] MEDS: Atorvastatin Calcium 10 MG TABLET PO (09:31)
--- NOTE | 2021-10-31 11:50 | P.PNPSI_ITS ---
Subjective Subjective Date of Service: 10/31/21 Reason For Visit: SI Subjective Notes: [place] Warning and Conditional Voluntary Healthcare Proxy: No Guardianship: No Medical Problems Affecting Mental Status: No Interim History: Patient seen and discussed with team. Patient evaluated today and upon interview she is found laying down in bed, had been anxious today and utilized PRN hydroxyzine. Says she is sleeping well. Currently denies voices. Mood is regular. Denies having questions or concerns. No s/s of rash. In the milieu, patient is mostly laying down in her room. Says she feels safe. Medication Compliance: Yes Side effects from medications: No Attending Groups: No Review of Systems Acute medical concerns: No Medical Review of Systems: unchanged Mental Status Exam Mental Status Exam Narrative: A&O. Overweight, in hospital attire, laying down in bed, under blanket. Poor eye contact, attentive. No Tics or Tremors. No abnormal involuntary movements. Calm, cooperative, engaged. Non-pressured speech, non-spontaneous, quiet speech. No prolonged speech latency or dysarthria. Mood is ?regular,? affect is constricted. Denies SI today. Denies SIB/HI upon inquiry. Denies CAH today, denies VH or delusional thought content. Thoughts are ruminative. No known cognitive or memory impairment. Insight/ Judgment fair and adequate. Diagnostics Vital Signs (24Hr): Vital Signs - 24 hr 10/30/21 21:07 10/31/21 09:15 Temperature 97.6 F 97.5 F Pulse Rate 67 73 Respiratory Rate 16 Blood Pressure 105/65 107/62 Pulse Oximetry 93 98 Oxygen Delivery Method Room Air Room Air BMI result Body Mass Index 28.1 Labs Results: 10/28/21 20:35 10/30/21 07:25 Labs: Laboratory Results - last 48 hr 10/30/21 10/30/21 07:25 07:25 Sodium 140 Potassium 4.6 Chloride 104 Carbon Dioxide 31 H Anion Gap 10 L BUN 16 Creatinine 0.97 Estim Creat Clear Calc 65.3 Estimated GFR > 60 Fasting Glucose 88 Estimat Average Glucose 105 Hemoglobin A1c % 5.3 Calcium 8.5 Total Bilirubin 0.5 AST 35 H D ALT 75 H Alkaline Phosphatase 145 H D Total Protein 6.0 L Albumin 3.6 Triglycerides 101 Cholesterol 233 D LDL Cholesterol, Calc 154 HDL Cholesterol 59 TSH 0.77 Medications Medications Current Medications Al Hydroxide/Mg Hydroxide (Magnesium Hydrox/Alum Hydrox 30 Ml Oral.Susp) 30 ml PO Q6H PRN PRN Reason: Heartburn/Nausea Albuterol Sulfate (Albuterol Sulfate 90 Mcg 8 Gm Inhaler) 2 puff INHALE Q6H PRN PRN Reason: shortness of breath or wheezing Atorvastatin Calcium (Atorvastatin Calcium 10 Mg Tablet) 10 mg PO DAILY [facility] Last Admin: 10/31/21 09:31 Dose: 10 mg Benztropine Mesylate (Benztropine Mesylate 1 Mg Tablet) 1 mg PO BID [facility] Last Admin: 10/31/21 09:30 Dose: 1 mg Bisacodyl (Bisacodyl 5 Mg Tablet.) 10 mg PO BEDTIME [facility] Last Admin: 10/30/21 21:10 Dose: 10 mg Cefuroxime Axetil (Cefuroxime Axetil 250 Mg Tablet) 250 mg PO BID [facility] Stop: 11/02/21 23:59 Last Admin: 10/31/21 09:29 Dose: 250 mg Clonazepam (Clonazepam 0.5 Mg Tablet) 0.5 mg PO BID [facility] Last Admin: 10/31/21 09:31 Dose: 0.5 mg Duloxetine HCl (Duloxetine Hcl 60 Mg Capsule.) 60 mg PO BEDTIME [facility] Last Admin: 10/30/21 21:09 Dose: 60 mg Ferrous Sulfate (Ferrous Sulfate 324 Mg Tablet.) 324 mg PO DAILY [facility] Last Admin: 10/31/21 09:30 Dose: 324 mg Gabapentin (Gabapentin 400 Mg Capsule) 800 mg PO TID [facility] Last Admin: 10/31/21 09:29 Dose: 800 mg Haloperidol (Haloperidol 5 Mg Tablet) 5 mg PO BID@0800,1300 [facility] Last Admin: 10/31/21 09:31 Dose: 5 mg Haloperidol (Haloperidol 5 Mg Tablet) 10 mg PO BEDTIME [facility] Last Admin: 10/30/21 21:10 Dose: 10 mg Hydroxyzine HCl (Hydroxyzine Hcl 25 Mg Tablet) 25 mg PO BEDTIME PRN PRN Reason: Anxiety Lamotrigine (Lamotrigine 25 Mg Tablet) 25 mg PO BEDTIME [facility] Last Admin: 10/30/21 21:09 Dose: 25 mg Magnesium Hydroxide (Milk Of Magnesia 30 Ml Oral.Susp) 30 ml PO DAILY PRN PRN Reason: Constipation Meclizine HCl (Meclizine Hcl 25 Mg Tablet) 25 mg PO TID PRN PRN Reason: dizziness Midodrine (Midodrine Hcl 5 Mg Tablet) 5 mg PO TIDWM [facility] Last Admin: 10/31/21 09:29 Dose: 5 mg Non-Formulary Medication (Lubiprostone) 8 mcg PO BID [facility] Omeprazole (Omeprazole 20 Mg Capsule.) 20 mg PO DAILY@0630 [facility] Last Admin: 10/31/21 06:50 Dose: 20 mg Polyethylene Glycol (Polyethylene Glycol 3350 17 Gm Powd.Pack) 17 gm PO DAILY [facility] Last Admin: 10/31/21 09:32 Dose: Not Given Prazosin HCl (Prazosin Hcl 1 Mg Capsule) 2 mg PO BEDTIME [facility]; Protocol Last Admin: 10/30/21 21:09 Dose: 2 mg Sucralfate (Sucralfate Oral Suspension 1 Gm/10 Ml Oral.Susp) 1 gm PO BEDTIME [facility] Last Admin: 10/30/21 22:55 Dose: Not Given Sumatriptan Succinate (Sumatriptan Succinate 50 Mg Tablet) 50 mg PO BID PRN PRN Reason: Migraine Headache Tramadol HCl (Tramadol Hcl 50 Mg Tablet) 100 mg PO Q8H PRN PRN Reason: pain (scale score 4-6) Trazodone HCl (Trazodone Hcl 50 Mg Tablet) 50 mg PO BEDTIME PRN PRN Reason: Insomnia Vitamin D (Cholecalciferol (Vitamin D3) 25 Mcg Tablet) 25 mcg PO DAILY [facility] Last Admin: 10/31/21 09:30 Dose: 25 mcg Allergies Allergies Allergy/AdvReac Type Severity Reaction Status Date / Time No Known Allergies Allergy Verified 10/26/21 09:55 Assessment & Plan Assessment & Plan (1) Post traumatic stress disorder (PTSD): Status: Acute Code(s): F43.10 - Post-traumatic stress disorder, unspecified (2) MDD (major depressive disorder), recurrent, severe, with psychosis: Status: Acute Code(s): F33.3 - Major depressive disorder, recurrent, severe with psychotic symptoms Elle Michaels is a 50 y.o. female who carries a dx of MDD with psychotic features and PTSD. Pt presented to [facility] on 10/28/21 via ambulance after her psychiatrist ( Dr. Maya Kathleen) sent her for evaluation due to SI with a plan to hang herself or cut herself. She disclosed she held a razor to her wrists but did not cut herself as her took it out of her hands. She endorses CAH telling her to kill herself. Denies illicit substance use, no alcohol abuse. Pt is med adherent. Plan: Consulted with OP psychiatrist who reports pt has reported benefit on haldol for AH and had been stable for some time. She reports concern for pt's depression. Will start lamictal 25 mg QHS for sx of depression, reviewed risks including s/s of SJS or rash. Pt has multiple medical co-morbidities, has hx of simple nephrectomy and transaminase (fatty liver disease? hx of hyperlipidemia). Consideration for choosing med with low SE profile. Q15 min safety checks, CV Monitor response to medications. Monitor for safety in the milieu. Discharge on stabilization. Patient seen. Chart reviewed. Discussed with team. Obtain collateral contact info?as needed I spent minutes with the patient and/or on the patient floor today, greater than?50% of which was spent counseling/coordinating care. Patient educated on: medication risk/benefits Reason for contiued inpatient stay Substantial Risk for: harm to self, rapid decompensation and med/psych decompensation
[2021-10-31] MEDS: bisacodyL 5 MG TABLET.DR 10 MG PO (12:55)
[2021-10-31] MEDS: hydrOXYzine HCL 25 MG TABLET PO (18:19)
[2021-10-31 21:06] VITALS: BP 119/89; PULSE 70; TEMP 36.3; O2SAT 98
[2021-10-31] MEDS: lamoTRIgine 25 MG TABLET PO (21:15)
[2021-10-31] MEDS: HaloperidoL 5 MG TABLET 10 MG PO (21:15)
[2021-10-31] MEDS: Prazosin HCL 1 MG CAPSULE 2 MG PO (21:15)
[2021-10-31] MEDS: DULoxetine HCl 60 MG CAPSULE.DR PO (21:16)
[2021-11-01] MEDS: Omeprazole 20 MG CAPSULE.DR PO (09:11)
[2021-11-01] MEDS: Cholecalciferol (Vitamin D3) 25 MCG TABLET PO (09:11)
[2021-11-01] MEDS: Atorvastatin Calcium 10 MG TABLET PO (09:12)
[2021-11-01] MEDS: clonazePAM 0.5 MG TABLET PO ×2 (09:12→20:54)
[2021-11-01] MEDS: bisacodyL 5 MG TABLET.DR 10 MG PO (09:12)
[2021-11-01] MEDS: Ferrous Sulfate 324 MG TABLET.DR PO (09:12)
[2021-11-01] MEDS: Benztropine Mesylate 1 MG TABLET PO ×2 (09:13→20:55)
[2021-11-01] MEDS: HaloperidoL 5 MG TABLET PO ×2 (09:14→12:34)
[2021-11-01] MEDS: Gabapentin 400 MG CAPSULE 800 MG PO ×3 (09:14→20:55)
[2021-11-01 09:15] VITALS: BP 110/51; PULSE 74; RESP 18; TEMP 36.6; O2SAT 96
[2021-11-01] MEDS: Midodrine HCl 5 MG TABLET PO ×3 (09:16→17:56)
[2021-11-01] MEDS: HaloperidoL 5 MG TABLET 10 MG PO (20:55)
[2021-11-01] MEDS: Prazosin HCL 1 MG CAPSULE 2 MG PO (20:55)
[2021-11-01] MEDS: DULoxetine HCl 60 MG CAPSULE.DR PO (20:55)
[2021-11-01] MEDS: lamoTRIgine 25 MG TABLET PO (20:55)
[2021-11-01] MEDS: bisacodyL 10 MG SUPP.RECT PR (20:57)
[2021-11-01 21:00] VITALS: BP 110/64; PULSE 81; RESP 16; TEMP 36.3
--- NOTE | 2021-11-01 23:41 | HO.PSYCHPN ---
Subjective Subjective Date of Service: 11/01/21 Reason For Visit: SI Subjective Notes: [place] Warning Interim History: Patient seen and discussed with team. Pt reported issues with constipation, hx of gastric bypass, has had benefit on ducolax [place], will prescribe. Denies pain. Able to eat. Patient evaluated today and upon interview she reports her mood is good, she denies AH. Says her energy is down but her sleep is good. In the milieu, patient is safe but isolative and withdrawn in behavior (per chart, this is baseline for when she is inpatient). Says she feels safe. Medication Compliance: Yes Side effects from medications: No Attending Groups: No Review of Systems Acute medical concerns: No Medical Review of Systems: unchanged Mental Status Exam Mental Status Exam Narrative: A&O. Overweight, in hospital attire, laying down in bed, under blanket. Poor eye contact, attentive. No Tics or Tremors. No abnormal involuntary movements. Calm, cooperative, engaged. Non-pressured speech, non-spontaneous, quiet speech. No prolonged speech latency or dysarthria. Mood is ?good,? affect is constricted. Denies SI today. Denies SIB/HI upon inquiry. Denies CAH today, denies VH or delusional thought content. Thoughts are ruminative. No known cognitive or memory impairment. Insight/ Judgment fair and adequate. Diagnostics Vital Signs (24Hr): Vital Signs - 24 hr 11/01/21 21:00 Temperature 97.3 F Pulse Rate 81 Respiratory Rate 16 Blood Pressure 110/64 BMI result Body Mass Index 28.1 Labs Results: 10/28/21 20:35 10/30/21 07:25 Labs: Laboratory Results - last 48 hr 10/30/21 07:25 Vitamin B12 579 Medications Medications Current Medications Al Hydroxide/Mg Hydroxide (Magnesium Hydrox/Alum Hydrox 30 Ml Oral.Susp) 30 ml PO Q6H PRN PRN Reason: Heartburn/Nausea Albuterol Sulfate (Albuterol Sulfate 90 Mcg 8 Gm Inhaler) 2 puff INHALE Q6H PRN PRN Reason: shortness of breath or wheezing Atorvastatin Calcium (Atorvastatin Calcium 10 Mg Tablet) 10 mg PO DAILY [facility] Last Admin: 11/02/21 09:18 Dose: 10 mg Benztropine Mesylate (Benztropine Mesylate 1 Mg Tablet) 1 mg PO BID [facility] Last Admin: 11/02/21 09:18 Dose: 1 mg Bisacodyl (Bisacodyl 5 Mg Tablet.) 10 mg PO DAILY [facility] Last Admin: 11/02/21 09:17 Dose: 10 mg Bisacodyl (Bisacodyl 10 Mg Supp.Rect) 10 mg [place] DAILY PRN PRN Reason: Constipation Last Admin: 11/01/21 20:57 Dose: 10 mg Cefuroxime Axetil (Cefuroxime Axetil 250 Mg Tablet) 250 mg PO BID JYOT[facility] Stop: 11/02/21 23:59 Last Admin: 11/02/21 09:17 Dose: 250 mg Clonazepam (Clonazepam 0.5 Mg Tablet) 0.5 mg PO BID [facility] Last Admin: 11/02/21 09:18 Dose: 0.5 mg Duloxetine HCl (Duloxetine Hcl 60 Mg Capsule.) 60 mg PO BEDTIME [facility] Last Admin: 11/01/21 20:55 Dose: 60 mg Ferrous Sulfate (Ferrous Sulfate 324 Mg Tablet.) 324 mg PO DAILY [facility] Last Admin: 11/02/21 09:19 Dose: 324 mg Gabapentin (Gabapentin 400 Mg Capsule) 800 mg PO TID [facility] Last Admin: 11/02/21 09:16 Dose: 800 mg Haloperidol (Haloperidol 5 Mg Tablet) 5 mg PO BID@0800,1300 [facility] Last Admin: 11/02/21 09:18 Dose: 5 mg Haloperidol (Haloperidol 5 Mg Tablet) 10 mg PO BEDTIME [facility] Last Admin: 11/01/21 20:55 Dose: 10 mg Hydroxyzine HCl (Hydroxyzine Hcl 25 Mg Tablet) 25 mg PO Q6H PRN PRN Reason: Anxiety Last Admin: 10/31/21 18:19 Dose: 25 mg Lamotrigine (Lamotrigine 25 Mg Tablet) 25 mg PO BEDTIME [facility] Last Admin: 11/01/21 20:55 Dose: 25 mg Magnesium Hydroxide (Milk Of Magnesia 30 Ml Oral.Susp) 30 ml PO DAILY PRN PRN Reason: Constipation Meclizine HCl (Meclizine Hcl 25 Mg Tablet) 25 mg PO TID PRN PRN Reason: dizziness Midodrine (Midodrine Hcl 5 Mg Tablet) 5 mg PO TIDWM [facility] Last Admin: 11/02/21 09:17 Dose: 5 mg Non-Formulary Medication (Lubiprostone) 8 mcg PO BID [facility] Omeprazole (Omeprazole 20 Mg Capsule.) 20 mg PO DAILY@0630 [facility] Last Admin: 11/02/21 09:19 Dose: 20 mg Prazosin HCl (Prazosin Hcl 1 Mg Capsule) 2 mg PO BEDTIME [facility]; Protocol Last Admin: 11/01/21 20:55 Dose: 2 mg Sucralfate (Sucralfate Oral Suspension 1 Gm/10 Ml Oral.Susp) 1 gm PO BEDTIME [facility] Last Admin: 11/01/21 21:03 Dose: Not Given Sumatriptan Succinate (Sumatriptan Succinate 50 Mg Tablet) 50 mg PO BID PRN PRN Reason: Migraine Headache Tramadol HCl (Tramadol Hcl 50 Mg Tablet) 100 mg PO Q8H PRN PRN Reason: pain (scale score 4-6) Trazodone HCl (Trazodone Hcl 50 Mg Tablet) 50 mg PO BEDTIME PRN PRN Reason: Insomnia Vitamin D (Cholecalciferol (Vitamin D3) 25 Mcg Tablet) 25 mcg PO DAILY [facility] Last Admin: 11/02/21 09:17 Dose: 25 mcg Allergies Allergies Allergy/AdvReac Type Severity Reaction Status Date / Time No Known Allergies Allergy Verified 10/26/21 09:55 Assessment & Plan Assessment & Plan (1) MDD (major depressive disorder), recurrent, severe, with psychosis: Status: Acute Code(s): F33.3 - Major depressive disorder, recurrent, severe with psychotic symptoms (2) Post traumatic stress disorder (PTSD): Status: Acute Code(s): F43.10 - Post-traumatic stress disorder, unspecified Plan Xenia is a 50 y.o. female who carries a dx of MDD with psychotic features and PTSD. Pt presented to [facility] [place] [facility] on 10/28/21 via ambulance after her psychiatrist (Dr. Maya Kathleen) sent her for evaluation due to SI with a plan to hang herself or cut herself. She disclosed she held a razor to her wrists but did not cut herself as her took it out of her hands. She endorses CAH telling her to kill herself. Denies illicit substance use, no alcohol abuse. Pt is med adherent. Plan: Consulted with OP psychiatrist who reports pt has reported benefit on haldol for AH and had been stable for some time. She reports concern for pt's depression. Will start lamictal 25 mg QHS for sx of depression, reviewed risks including s/s of SJS or rash. Pt has multiple medical co-morbidities, has hx of simple nephrectomy and transaminase (fatty liver disease? hx of hyperlipidemia). Consideration for choosing med with low SE profile. Q15 min safety checks, CV Monitor response to medications. Monitor for safety in the milieu. Discharge on stabilization. Patient seen. Chart reviewed. Discussed with team. Obtain collateral contact info?as needed I spent minutes with the patient and/or on the patient floor today, greater than?50% of which was spent counseling/coordinating care. Patient educated on: medication risk/benefits Reason for contiued inpatient stay Substantial Risk for: harm to self and med/psych decompensation
[2021-11-02 06:08] LABS: Vitamin B12 579 pg/mL (200-900)
[2021-11-02 09:05] VITALS: BP 119/75; PULSE 82; RESP 18; TEMP 36.6; O2SAT 99
[2021-11-02] MEDS: Gabapentin 400 MG CAPSULE 800 MG PO ×3 (09:16→20:21)
[2021-11-02] MEDS: bisacodyL 5 MG TABLET.DR 10 MG PO (09:17)
[2021-11-02] MEDS: Cholecalciferol (Vitamin D3) 25 MCG TABLET PO (09:17)
[2021-11-02] MEDS: Midodrine HCl 5 MG TABLET PO ×3 (09:17→17:47)
[2021-11-02] MEDS: Benztropine Mesylate 1 MG TABLET PO ×2 (09:18→20:21)
[2021-11-02] MEDS: HaloperidoL 5 MG TABLET PO ×2 (09:18→13:18)
[2021-11-02] MEDS: Atorvastatin Calcium 10 MG TABLET PO (09:18)
[2021-11-02] MEDS: clonazePAM 0.5 MG TABLET PO ×2 (09:18→20:21)
[2021-11-02] MEDS: Ferrous Sulfate 324 MG TABLET.DR PO (09:19)
[2021-11-02] MEDS: Omeprazole 20 MG CAPSULE.DR PO (09:19)
--- NOTE | 2021-11-02 11:29 | PC.NURSE ---
Patient reports no results from suppository taken last night- provider notified.
[2021-11-02] MEDS: Milk of Magnesia 30 ML ORAL.SUSP PO (15:40)
--- NOTE | 2021-11-02 15:47 | HO.PSYCHPN ---
Subjective Subjective Date of Service: 11/02/21 Reason For Visit: SI Interim History: pt seen with vp [employer]. calm, cooperative. denies psychotic Sx or SI. states she is feeling ready to return home. agreeable to allow staff to contact her to assess for nearness to baseline. has not made a BM since admission. usually dulcolax is adequate. dulcolax suppository did not work last night. will try MOM, senna, miralax today and large volume tap water enema tomorrow if that does not work. per staff, not attending groups. very constipated. had dulcolax suppository without relief. CAH to hurt self and daughter. Mental Status Exam Mental Status Exam Narrative: A&O. Overweight, in hospital attire. fair eye contact, attentive. No Tics or Tremors. cud-chewing movement of lower jaw - TD. Calm, cooperative, engaged. Non-pressured speech, non-spontaneous, quiet speech. No prolonged speech latency or dysarthria. Mood is euthymic, affect is constricted. Denies SI today. Denies CAH today, denies VH or delusional thought content. Thoughts are ruminative. No known cognitive or memory impairment. Insight/ Judgment fair and adequate. Diagnostics Vital Signs (24Hr): Vital Signs - 24 hr 11/01/21 21:00 11/02/21 09:05 Temperature 97.3 F 97.8 F Pulse Rate 81 82 Respiratory Rate 16 18 Blood Pressure 110/64 119/75 Pulse Oximetry 99 Oxygen Delivery Method Room Air BMI result Body Mass Index 28.1 Labs Results: 10/28/21 20:35 10/30/21 07:25 Labs: Laboratory Results - last 48 hr 10/30/21 07:25 Vitamin B12 579 Medications Medications Current Medications Al Hydroxide/Mg Hydroxide (Magnesium Hydrox/Alum Hydrox 30 Ml Oral.Susp) 30 ml PO Q6H PRN PRN Reason: Heartburn/Nausea Albuterol Sulfate (Albuterol Sulfate 90 Mcg 8 Gm Inhaler) 2 puff INHALE Q6H PRN PRN Reason: shortness of breath or wheezing Atorvastatin Calcium (Atorvastatin Calcium 10 Mg Tablet) 10 mg PO DAILY [facility] Last Admin: 11/02/21 09:18 Dose: 10 mg Benztropine Mesylate (Benztropine Mesylate 1 Mg Tablet) 1 mg PO BID [facility] Last Admin: 11/02/21 09:18 Dose: 1 mg Bisacodyl (Bisacodyl 5 Mg Tablet.Dr) 10 mg PO DAILY [facility] Last Admin: 11/02/21 09:17 Dose: 10 mg Bisacodyl (Bisacodyl 10 Mg Supp.Rect) 10 mg ME DAILY PRN PRN Reason: Constipation Last Admin: 11/01/21 20:57 Dose: 10 mg Cefuroxime Axetil (Cefuroxime Axetil 250 Mg Tablet) 250 mg PO BID JYOT[facility] Stop: 11/02/21 23:59 Last Admin: 11/02/21 09:17 Dose: 250 mg Clonazepam (Clonazepam 0.5 Mg Tablet) 0.5 mg PO BID [facility] Last Admin: 11/02/21 09:18 Dose: 0.5 mg Duloxetine HCl (Duloxetine Hcl 60 Mg Capsule.) 60 mg PO BEDTIME [facility] Last Admin: 11/01/21 20:55 Dose: 60 mg Ferrous Sulfate (Ferrous Sulfate 324 Mg Tablet.) 324 mg PO DAILY [facility] Last Admin: 11/02/21 09:19 Dose: 324 mg Gabapentin (Gabapentin 400 Mg Capsule) 800 mg PO TID [facility] Last Admin: 11/02/21 14:46 Dose: 800 mg Haloperidol (Haloperidol 5 Mg Tablet) 5 mg PO BID@0800,1300 [facility] Last Admin: 11/02/21 13:18 Dose: 5 mg Haloperidol (Haloperidol 5 Mg Tablet) 10 mg PO BEDTIME [facility] Last Admin: 11/01/21 20:55 Dose: 10 mg Hydroxyzine HCl (Hydroxyzine Hcl 25 Mg Tablet) 25 mg PO Q6H PRN PRN Reason: Anxiety Last Admin: 10/31/21 18:19 Dose: 25 mg Lamotrigine (Lamotrigine 25 Mg Tablet) 25 mg PO BEDTIME [facility] Last Admin: 11/01/21 20:55 Dose: 25 mg Magnesium Hydroxide (Milk Of Magnesia 30 Ml Oral.Susp) 30 ml PO DAILY PRN PRN Reason: Constipation Last Admin: 11/02/21 15:40 Dose: 30 ml Meclizine HCl (Meclizine Hcl 25 Mg Tablet) 25 mg PO TID PRN PRN Reason: dizziness Midodrine (Midodrine Hcl 5 Mg Tablet) 5 mg PO TIDWM [facility] Last Admin: 11/02/21 13:18 Dose: 5 mg Non-Formulary Medication (Lubiprostone) 8 mcg PO BID [facility] Omeprazole (Omeprazole 20 Mg Capsule.) 20 mg PO DAILY@0630 [facility] Last Admin: 11/02/21 09:19 Dose: 20 mg Polyethylene Glycol (Polyethylene Glycol 3350 17 Gm Powd.Pack) 17 gm PO BID [facility] Prazosin HCl (Prazosin Hcl 1 Mg Capsule) 2 mg PO BEDTIME [facility]; Protocol Last Admin: 11/01/21 20:55 Dose: 2 mg Senna (Sennosides 8.6 Mg Tablet) 17.2 mg PO BEDTIME [facility] Sucralfate (Sucralfate Oral Suspension 1 Gm/10 Ml Oral.Susp) 1 gm PO BEDTIME [facility] Last Admin: 11/01/21 21:03 Dose: Not Given Sumatriptan Succinate (Sumatriptan Succinate 50 Mg Tablet) 50 mg PO BID PRN PRN Reason: Migraine Headache Tramadol HCl (Tramadol Hcl 50 Mg Tablet) 100 mg PO Q8H PRN PRN Reason: pain (scale score 4-6) Trazodone HCl (Trazodone Hcl 50 Mg Tablet) 50 mg PO BEDTIME PRN PRN Reason: Insomnia Vitamin D (Cholecalciferol (Vitamin D3) 25 Mcg Tablet) 25 mcg PO DAILY [facility] Last Admin: 11/02/21 09:17 Dose: 25 mcg Allergies Allergies Allergy/AdvReac Type Severity Reaction Status Date / Time No Known Allergies Allergy Verified 10/26/21 09:55 Assessment & Plan Assessment & Plan (1) MDD (major depressive disorder), recurrent, severe, with psychosis: Status: Acute Code(s): F33.3 - Major depressive disorder, recurrent, severe with psychotic symptoms (2) Post traumatic stress disorder (PTSD): Status: Acute Code(s): F43.10 - Post-traumatic stress disorder, unspecified Plan Xenia is a 50 y.o. female who carries a dx of MDD with psychotic features and PTSD. Pt presented to [facility] ED on 10/28/21 via ambulance after her psychiatrist (Dr. Maya Kathleen) sent her for evaluation due to SI with a plan to hang herself or cut herself. She disclosed she held a razor to her wrists but did not cut herself as her took it out of her hands. She endorses CAH telling her to kill herself. Denies illicit substance use, no alcohol abuse. Pt is med adherent. Plan: Consulted with OP psychiatrist who reports pt has reported benefit on haldol for AH and had been stable for some time. She reports concern for pt's depression. Will start lamictal 25 mg QHS for sx of depression, reviewed risks including s/s of SJS or rash. Pt has multiple medical co-morbidities, has hx of simple nephrectomy and transaminase (fatty liver disease? hx of hyperlipidemia). Consideration for choosing med with low SE profile. 11/02: med-compliant, denies Sx, feeling ready for discharge. check in with re baseline. MOM, senna, dulcolax for constipation. large-volume tap water enema tomorrow if no results. I spent ___35___ minutes with the patient and/or on the patient floor today, greater than?50% of which was spent counseling/coordinating care. Reason for contiued inpatient stay Substantial Risk for: harm to self, harm to others, inability to function and rapid decompensation
[2021-11-02] MEDS: Prazosin HCL 1 MG CAPSULE 2 MG PO (20:21)
[2021-11-02] MEDS: polyethylene glycoL 3350 17 GM POWD.PACK PO (20:21)
[2021-11-02] MEDS: HaloperidoL 5 MG TABLET 10 MG PO (20:21)
[2021-11-02] MEDS: Sennosides 8.6 MG TABLET 17.2 MG PO (20:21)
[2021-11-02] MEDS: lamoTRIgine 25 MG TABLET PO (20:22)
[2021-11-02] MEDS: DULoxetine HCl 60 MG CAPSULE.DR PO (20:22)
[2021-11-02] MEDS: Sucralfate Oral Suspension 1 GM/10 ML ORAL.SUSP PO (20:22)
[2021-11-02 20:30] VITALS: BP 107/69; PULSE 65; RESP 18; TEMP 36.2; O2SAT 94
[2021-11-03] MEDS: Omeprazole 20 MG CAPSULE.DR PO (06:08)
[2021-11-03 09:18] VITALS: BP 113/57; PULSE 90; RESP 18; TEMP 36.6; O2SAT 98
[2021-11-03] MEDS: clonazePAM 0.5 MG TABLET PO (09:22)
[2021-11-03] MEDS: Ferrous Sulfate 324 MG TABLET.DR PO (09:22)
[2021-11-03] MEDS: Gabapentin 400 MG CAPSULE 800 MG PO (09:22)
[2021-11-03] MEDS: Benztropine Mesylate 1 MG TABLET PO (09:22)
[2021-11-03] MEDS: Atorvastatin Calcium 10 MG TABLET PO (09:22)
[2021-11-03] MEDS: Cholecalciferol (Vitamin D3) 25 MCG TABLET PO (09:23)
[2021-11-03] MEDS: polyethylene glycoL 3350 17 GM POWD.PACK PO (09:23)
[2021-11-03] MEDS: HaloperidoL 5 MG TABLET PO (09:23)
[2021-11-03] MEDS: bisacodyL 5 MG TABLET.DR 10 MG PO (09:23)
[2021-11-03] MEDS: Midodrine HCl 5 MG TABLET PO (09:23)
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
== END 2021-11-03 12:02 | disposition home or self-care (01) | DRG 751 ==
LOC: HO.ED 22:50 → HO.PADLT16 10-29 12:40
PROVIDERS: Physician Assistant; Social Worker; Admitting Provider Psychiatry & Neurology Psychiatry; Emergency Provider Emergency Medicine; PCP Internal Medicine; Visit Provider Psychiatry & Neurology Psychiatry
DX: F33.3 Major depressive disorder, recurrent, severe with psychotic symptoms (principal); R45.851 Suicidal ideations; N39.0 Urinary tract infection, site not specified; E78.5 Hyperlipidemia, unspecified; F43.10 Post-traumatic stress disorder, unspecified; K21.9 Gastro-esophageal reflux disease without esophagitis; G47.33 Obstructive sleep apnea (adult) (pediatric); Z20.822 Contact with and (suspected) exposure to COVID-19; Z90.5 Acquired absence of kidney; Z98.84 Bariatric surgery status; Z79.899 Other long term (current) drug therapy
CPT/HCPCS: 36415; 80053; 80061; 80143; 80179; 80307; 81001; 82077; 82607; 83036; 83735; 84443; 85025; 87086; 87088; 87186; 87635; 93005; 99285

== ENCOUNTER → 2021-12-21 12:52 | Outpatient (BNVA) | payer OTHER, SELFPAY | PROVIDERS: PCP Internal Medicine; Visit Provider Advanced Practice Midwife | DX: Z71.2 Person consulting for explanation of examination or test findings (principal) | CPT/HCPCS: 99212 ==

== ENCOUNTER 2021-12-24 11:03 | Outpatient (REF) | payer OTHER, SELFPAY ==
[2021-12-24 11:32] LABS: MANUAL DIFF FLAG NO
[2021-12-24 12:05] LABS: Basophils Absolute Auto 0.1 X10*3/uL (0.0-0.2); Basophils Percent Auto 0.9 % (0-2); Eosinophils Absolute Auto 0.1 X10*3/uL (0.0-0.4); Eosinophils Percent Auto 1.2 % (0-4); Hematocrit 44.6 % (37.0-47.0); Hemoglobin 14.5 g/dl (12.0-16.0); Imm Gran Abs Auto 0.02 X10*3/uL (0.00-0.03); Imm Gran Pct Auto 0.3 % (0.0-0.4); Lymphocytes Absolute Auto 1.9 X10*3/uL (1.2-4.9); Lymphocytes Percent Auto 28.5 % (20-40); Mean Corpuscular HGB Conc 32.5 g/dl (31.0-35.0); Mean Corpuscular Hemoglobin 32.9 pg (27.0-33.0); Mean Corpuscular Volume 101.1 fL (80.0-98.0); Mean Platelet Volume 9.1 fL (9.4-12.3); Monocytes Absolute Auto 0.5 X10*3/uL (0.1-1.2); Monocytes Percent Auto 7.4 % (2-11); Neutrophils Absolute Auto 4.2 x10*3/uL (2.0-8.3); Neutrophils Percent Auto 61.7 % (45-73); Platelet Count 320 X10*3/uL (160-400); Red Blood Count 4.41 X10*6/uL (4.20-5.50); Red Cell Distribution Width 12.4 % (11.0-16.0); White Blood Count 6.7 X10*3/uL (4.8-10.8)
[2021-12-24 12:44] LABS: Alanine Aminotransferase 177 U/L (0-31); Albumin Level 3.9 g/dL (3.5-5.0); Alkaline Phosphatase 149 U/L (39-117); Anion Gap 14 (12-20); Aspartate Amino Transferase 143 U/L (5-31); Bilirubin Total 0.5 mg/dL (0.0-1.0); Blood Urea Nitrogen 17 mg/dL (9-16); Calcium 8.6 mg/dL (8.4-10.2); Carbon Dioxide 27 mmol/L (22-29); Chloride 104 mmol/L (96-108); Cholesterol 239 mg/dL; Estimated Glomerular Filt Rate 50; Glucose Fasting 82 mg/dL (60-99); HDL Cholesterol 73 mg/dL; LDL Cholesterol Calculated 145 mg/dl; Potassium 5.1 mmol/L (3.3-5.1); Sodium 140 mmol/L (135-145); Total Protein 6.7 g/dL (6.5-8.0); Triglycerides 108 mg/dL
[2021-12-24 13:06] LABS: TSH reflex Free T4 0.79 uIU/mL (0.32-4.0); Vitamin D 25-OH Total 28.9 ng/mL (>30)
[2021-12-24 13:30] LABS: Appearance Urine Cloudy; Color Urine Yellow; Glucose Urine UA Negative (Negative); Leukocyte Esterase Urine Small (1+) (Negative); Nitrite Urine Negative (Negative); PH 5.5 (5.0-8.0); Urine Blood Negative (Negative); Urine Ketones Trace mg/dL (Negative); Urine Protein Negative (Neg-Trace)
[2021-12-24 13:40] LABS: Bacteria Urine 4+ (None Seen); Calcium Oxalate Crystals Urine Present; UACC Culture Trigger YES; WBC Urine 21-50 /HPF (0-5)
== END 2021-12-24 11:04 | disposition home or self-care (01) ==
LOC: HO.LAB 11:03
PROVIDERS: PCP Internal Medicine; Visit Provider Internal Medicine
DX: E78.00 Pure hypercholesterolemia, unspecified (principal); E55.9 Vitamin D deficiency, unspecified; I10 Essential (primary) hypertension
CPT/HCPCS: 36415; 80053; 80061; 81001; 82306; 84443; 85025; 87086

== ENCOUNTER → 2022-01-12 12:29 | Outpatient (BNVA) | payer OTHER, SELFPAY | PROVIDERS: PCP Internal Medicine; Referring Provider Internal Medicine; Visit Provider Physician Assistant Surgical | DX: E66.9 Obesity, unspecified (principal); Z98.84 Bariatric surgery status; Z68.30 Body mass index [BMI] 30.0-30.9, adult | CPT/HCPCS: 99212 ==

== ENCOUNTER → 2022-01-31 09:11 | Outpatient (BNVA) | payer OTHER, SELFPAY | PROVIDERS: PCP Internal Medicine; Visit Provider Anesthesiology | DX: M46.1 Sacroiliitis, not elsewhere classified (principal); M47.816 Spondylosis without myelopathy or radiculopathy, lumbar region | CPT/HCPCS: 99212 ==

== ENCOUNTER 2022-02-02 13:41 | Outpatient (REF) | payer OTHER, SELFPAY ==
[2022-02-02 14:58] LABS: Alanine Aminotransferase 16 U/L (0-31); Albumin Level 3.8 g/dL (3.5-5.0); Alkaline Phosphatase 107 U/L (39-117); Aspartate Amino Transferase 18 U/L (5-31); Bilirubin Direct 0.2 mg/dL (0.0-0.5); Bilirubin Total 0.4 mg/dL (0.0-1.0); Lipase 16 U/L (8-78); Total Protein 6.3 g/dL (6.5-8.0)
[2022-02-02 15:11] LABS: Ferritin 280 ng/mL (10-250)
[2022-02-04 08:22] LABS: Transglutaminase Ab IgG <1.0 U/mL; Transglutaminase IgA <1.0 U/mL
[2022-02-04 11:22] LABS: Ceruloplasmin 33 mg/dL (18-53)
[2022-02-04 13:41] LABS: Alpha Fetoprotein 1.8 ng/mL
== END 2022-02-02 13:42 | disposition home or self-care (01) ==
LOC: HO.LAB 13:41
PROVIDERS: PCP Internal Medicine; Visit Provider Nurse Practitioner Family
DX: R10.9 Unspecified abdominal pain (principal); R79.89 Other specified abnormal findings of blood chemistry; R74.8 Abnormal levels of other serum enzymes
CPT/HCPCS: 36415; 80076; 82105; 82390; 82728; 83690; 86364; 99212

== ENCOUNTER 2022-02-03 14:34 | Outpatient (REF) | payer OTHER, SELFPAY ==
[2022-02-09 21:13] LABS: Pancreatic Elastase-1 256 mcg/g
== END 2022-02-03 14:35 | disposition home or self-care (01) ==
LOC: HO.LNP 14:34
PROVIDERS: Visit Provider Nurse Practitioner Family
DX: R10.9 Unspecified abdominal pain (principal); K59.00 Constipation, unspecified
CPT/HCPCS: 82656

== ENCOUNTER → 2022-02-09 14:05 | Outpatient (BNVA) | payer OTHER, SELFPAY | PROVIDERS: PCP Internal Medicine; Visit Provider Physician Assistant Surgical | DX: E66.9 Obesity, unspecified (principal); Z68.31 Body mass index [BMI] 31.0-31.9, adult; Z98.84 Bariatric surgery status | CPT/HCPCS: 99212 ==

== ENCOUNTER → 2022-02-28 12:42 | Outpatient (BNVA) | payer OTHER, SELFPAY | PROVIDERS: PCP Internal Medicine; Visit Provider Nurse Practitioner Family | DX: R10.9 Unspecified abdominal pain (principal); R79.89 Other specified abnormal findings of blood chemistry; K59.09 Other constipation; K58.1 Irritable bowel syndrome with constipation | CPT/HCPCS: 99212 ==

== ENCOUNTER 2022-03-09 14:12 | Outpatient (REF) | payer OTHER, SELFPAY ==
--- NOTE | ~2022-03-09 | CT_ITS ---
EXAMINATION: CT ABDOMEN AND PELVIS WITHOUT CONTRAST CLINICAL INFORMATION: Unspecified abdominal pain. COMPARISON: Ultrasound abdomen 07/08/2021. CT abdomen and pelvis 12/18/2019. TECHNIQUE: Multidetector volumetric imaging was performed from the superior aspect of the liver through the pubic symphysis. Sagittal and coronal reformatted images were obtained on the technologist's workstation. This CT examination was performed using dose optimization techniques as appropriate, variously including the following: *Automated exposure control *Adjustment of mA and/or kV according to patient size (this includes techniques or standardized protocols for targeted exams where dose is matched to indication/reason for exam; i.e. extremities or head) *Use of iterative reconstruction technique DLP: 551 mGy-cm FINDINGS: LUNG BASES: The visualized lung bases are unremarkable. LIVER, GALLBLADDER, AND BILIARY TREE: The liver is normal in size, shape, and attenuation. There is a hypodense 1.2 cm lesion left hepatic lobe adjacent to the hemidiaphragm on coronal image 65/4. No additional lesions seen. No intrahepatic ductal dilatation. The gallbladder has been surgically removed. PANCREAS: Mildly atrophic pancreas with fatty replacement present. SPLEEN: Unremarkable. ADRENAL GLANDS: Bilateral adrenal glands are unremarkable. KIDNEYS AND URETERS: The left kidney has been surgically removed. The right kidney is normal size with multiple right renal cysts. The largest upper pole right renal cyst measures 4.3 cm. There is a 1.1 cm radiopaque renal calculi lower pole calyx right kidney without caliectasis. There is no hydronephrosis. BLADDER: Unremarkable. GASTROINTESTINAL TRACT: There are surgical komal surrounding the stomach likely from previous gastric reduction surgery. Oral contrast opacified colon and the small bowel loops are normal caliber. There are no inflammatory changes, free air or free fluid. The appendix is normal caliber. ABDOMINAL WALL: No significant hernia is appreciated. LYMPH NODES: Normal. VASCULAR: Unremarkable. PELVIC VISCERA: There is no free fluid or pelvic mass. The uterus and ovaries are not visualized. OSSEOUS STRUCTURES: No aggressive lytic or sclerotic process seen. CT/CT abdomen pelvis wo IV con IMPRESSION: No acute intra-abdominal process seen. Postsurgical changes in the stomach likely related to previous gastric surgery. Multiple right renal cysts. Total left nephrectomy, stable to previous CT exam 12/18/2019. Fleischner guidelines were followed.
[2022-03-09] MEDS: Barium Sulfate Oral (Berry) 450 ML ORAL.SUSP 900 ML PO (16:28)
== END 2022-03-09 14:13 | disposition home or self-care (01) ==
LOC: HO.CT 14:12
PROVIDERS: PCP Internal Medicine; Visit Provider Nurse Practitioner Family
DX: R10.9 Unspecified abdominal pain (principal)
CPT/HCPCS: 74176

== ENCOUNTER → 2022-03-30 12:51 | Outpatient (BNVA) | payer OTHER, SELFPAY | PROVIDERS: PCP Internal Medicine; Visit Provider Anesthesiology | DX: M46.1 Sacroiliitis, not elsewhere classified (principal); M47.816 Spondylosis without myelopathy or radiculopathy, lumbar region | CPT/HCPCS: 99212 ==

== ENCOUNTER 2022-04-06 13:27 | Emergency (ER) | payer OTHER, SELFPAY ==
--- NOTE | ~2022-04-06 | US_ITS ---
EXAMINATION: US ABDOMEN LIMITED CLINICAL INFORMATION: Right upper quadrant pain. COMPARISON: CT abdomen pelvis earlier today TECHNIQUE: Real-time imaging of the right upper quadrant abdominal viscera. FINDINGS: PANCREAS: Could not be seen as it was obscured by bowel LIVER: The liver is normal in size. The liver contour is normal. Parenchymal echogenicity is normal. A septated 1.2 cm cyst is noted in the left lobe of the liver along with a 1.1 cm echogenic mass suggestive of hemangioma at the tip of the right lobe of the liver. This cyst was seen on the CT scan performed earlier today. A hemangioma can be seen on a CT scan performed on 11/05/2018 measuring 0.9 cm (2:31), although not mentioned in the original report. No other liver masses are seen. There is no intrahepatic biliary duct dilatation seen. GALLBLADDER: Surgically absent. COMMON BILE DUCT: Normal in caliber measuring 0.5 cm in diameter. RIGHT KIDNEY: No hydronephrosis. Multiple renal cysts are noted the largest measuring about 4 cm in size. A single lower pole 4 mm echogenic focus seen consistent with a stone previously seen. The kidney measures 13.7 cm in maximum dimension. FREE FLUID: None. US/US abdomen limited IMPRESSION: 1. A cause for the patient's right upper quadrant pain has not been found. 2. Incidental note made of hepatic and renal cysts and nonobstructing right lower pole renal calculus.
--- NOTE | ~2022-04-06 | CT_ITS ---
EXAMINATION: CT ABDOMEN AND PELVIS WITHOUT CONTRAST CLINICAL INFORMATION: Left sided abdominal pain. History of gastric bypass. COMPARISON: 03/09/2022 TECHNIQUE: Multidetector volumetric imaging was performed from the superior aspect of the liver through the pubic symphysis. Sagittal and coronal reformatted images were obtained on the technologist's workstation. This CT examination was performed using dose optimization techniques as appropriate, variously including the following: *Automated exposure control *Adjustment of mA and/or kV according to patient size (this includes techniques or standardized protocols for targeted exams where dose is matched to indication/reason for exam; i.e. extremities or head) *Use of iterative reconstruction technique DLP: 705 mGy-cm FINDINGS: LUNG BASES: The visualized lung bases are unremarkable. LIVER, GALLBLADDER, AND BILIARY TREE: The liver is normal in size, shape, and attenuation. No focal hepatic lesion or biliary ductal dilatation is present. The gallbladder is surgically absent. PANCREAS: Unremarkable. Partially fatty replaced. SPLEEN: Unremarkable. ADRENAL GLANDS: Unremarkable. KIDNEYS AND URETERS: Left kidney is absent. Several right renal cysts which are of simple fluid density and not significantly changed. There is a 7 mm calculus at the lower pole of the right kidney, unchanged. No ureteral calculi. No hydronephrosis. BLADDER: Unremarkable. GASTROINTESTINAL TRACT: The small and large bowel are unremarkable. The appendix is unremarkable. ABDOMINAL WALL: Left lateral abdomen hernia repair/postsurgical change. Fatty atrophy of the left lateral abdominal muscles. LYMPH NODES: Normal. VASCULAR: Unremarkable. PELVIC VISCERA: Unremarkable. OSSEOUS STRUCTURES: Unremarkable. CT/CT abdomen pelvis wo IV con IMPRESSION: 1. No focal inflammatory process or obstruction. No significant change. 2. Stable right renal cysts and a 7 mm calculus at the lower pole of the right kidney. No hydronephrosis.
[2022-04-06 13:34] VITALS: BP 130/90; PULSE 76; O2SAT 98
[2022-04-06 14:21] VITALS: BP 104/52; PULSE 67; RESP 18; TEMP 36.9; O2SAT 95; BMI 32.1
--- NOTE | 2022-04-06 14:21 | ED.ABDPAIN ---
HPI - Abdominal Pain General Chief Complaint: Abdominal Pain <Ivy Bangura MD - Last Filed: 04/06/22 14:26> Stated Complaint: ABD PAIN, VOMITING <Ivy Bangura MD - Last Filed: 04/06/22 14:26> Time Seen by Provider: 04/06/22 21:20 <Ivy Bangura MD - Last Filed: 04/06/22 14:26> Source: patient <CJ Mancilla - Last Filed: 04/07/22 00:27> Mode of arrival: ambulatory <CJ Mancilla - Last Filed: 04/07/22 00:27> Limitations: no limitations <CJ Mancilla Last Filed: 04/07/22 00:27> History of Present Illness HPI narrative: 31-year-old female past pertinent medical history of hyperlipidemia, status post gastric bypass a few years ago, frequent UTIs, anxiety, pyelonephritis, chronic constipation, renal cyst, , diverticulosis presents to emergency department for two days of right lower quadrant abdominal pain with associated nausea. Patient tells me that she is having severe right lower quadrant pain that is intermittent and sharp in nature, she tells me sometimes she will even feel the pain in her left lower quadrant. Tells me this is never happened to her before. She reports some anorexia. Unable to tell me what makes pain better or worse. Patient reports she is having normal bowel movements and urinating per usual. She denies fevers, chills, chest pain, shortness of breath, vision changes, dizziness, weakness, vomiting, constipation and diarrhea. No recent sick contacts. Patient tells me she has had a hysterectomy and oophorectomy. <CJ Mancilla - Last Filed: 04/07/22 00:27> Related Data Home Medications: Home Medications Medication Instructions Recorded Confirmed benztropine 1 mg tablet 1 tab PO BID 10/28/21 02/09/22 naproxen 500 mg tablet 1 tab PO DAILY PRN Pain 10/28/21 02/09/22 omeprazole 20 mg capsule,delayed 1 cap PO DAILY 10/28/21 02/09/22 release sucralfate 100 mg/mL oral 10 ml PO BEDTIME 10/28/21 02/09/22 suspension trazodone 50 mg tablet 1 tab PO BEDTIME PRN insomnia 10/28/21 02/09/22 clonazepam 0.5 mg tablet 0.5 mg PO BID PRN Anxiety 10/29/21 02/09/22 bisacodyl 5 mg tablet,delayed 10 mg PO BEDTIME 02/02/22 02/09/22 release (Laxative (bisacodyl)) linaclotide 290 mcg capsule 290 mcg PO QAM 02/02/22 02/09/22 (Linzess) sumatriptan succinate 50 mg tablet 50 mg PO BID PRN 02/02/22 02/09/22 duloxetine 30 mg capsule,delayed 30 mg PO DAILY 02/28/22 release haloperidol 5 mg tablet 5 mg PO BID 02/28/22 risperidone 0.5 mg tablet 0.5 mg PO BEDTIME 02/28/22 Previous Rx's Medication Instructions Recorded midodrine 5 mg tablet 5 mg PO TID #270 tabs 09/28/21 albuterol sulfate 90 mcg/actuation 2 puff inhalation Q6H PRN 10/27/21 aerosol inhaler (ProAir HFA) shortness of breath or wheezing 30 days #8.5 grams lamotrigine 25 mg tablet 25 mg PO BEDTIME 30 days #30 tabs 11/03/21 polyethylene glycol 3350 17 gram 17 g PO BID 30 days #60 ea 11/03/21 oral powder packet prazosin 1 mg capsule 2 mg PO BEDTIME 30 days #60 caps 11/03/21 sennosides 8.6 mg tablet (Senna 17.2 mg PO BEDTIME 30 days #60 tabs 11/03/21 Lax) cholecalciferol (vitamin D3) 25 25 mcg PO DAILY #30 caps 11/17/21 mcg (1,000 unit) capsule (Vitamin D3) gabapentin 800 mg tablet 800 mg PO TID 30 days #90 tabs 02/11/22 meclizine 25 mg tablet 25 mg PO TID PRN dizziness #60 tabs 02/11/22 tramadol 50 mg tablet 100 mg PO Q8H PRN pain (scale 02/15/22 score 4-6) 30 days #180 tabs ferrous sulfate 325 mg (65 mg 325 mg PO DAILY #30 tabs 03/07/22 iron) tablet docusate sodium 100 mg capsule 200 mg PO BEDTIME #180 caps 03/15/22 lactulose 10 gram/15 mL oral 10 g (15 mL) PO BEDTIME PRN 03/27/22 solution (Generlac) constipation 7 days #237 mL cefuroxime axetil 250 mg tablet 250 mg PO BID 7 days #14 tabs 04/06/22 phenazopyridine 100 mg tablet 200 mg PO TID 2 days #6 tabs 04/06/22 (Pyridium) <Ivy Bangura MD - Last Filed: 04/06/22 14:26> Allergies/Adverse Reactions: Allergies Allergy/AdvReac Type Severity Reaction Status Date / Time No Known Allergies Allergy Verified 04/06/22 14:21 <Ivy Bangura MD - Last Filed: 04/06/22 14:26> Review of Systems Review of Systems Constitutional : No Weight loss, No Fever, No Chills, No Fatigue, No Malaise ENT/Mouth : No sore throat, No Rhinorrhea Eyes: No Eye Pain, No Swelling, No Redness Cardiovascular : No Chest Pain, No SOB, No Dyspnea on Exertion, No Orthopnea, No Edema, No Palpitations Respiratory : No Cough, No Sputum, No Wheezing Gastrointestinal : + Nausea, No Vomiting, No Diarrhea, No Constipation, + abdominal Pain, No Hematochezia, No Melena Genitourinary : No Dysuria, No Urinary Frequency, No Hematuria, Musculoskeletal : No joint pain, No Myalgias, No Joint Swelling Skin : No Skin Lesions, No rash Neuro : No Weakness, No Numbness, No Dizziness, No Headache Psych : No Anxiety/Panic, No Depression All other systems reviewed and are negative <CJ Mancilla - Last Filed: 04/07/22 00:27> Yes all other systems are reviewed and are negative <CJ Mancilla - Last Filed: 04/07/22 00:27> PMFSH Past Medical History Attestation statement: The following information was validated with the patient. <CJ Mancilla - Last Filed: 04/07/22 00:27> Source: old records reviewed and nursing notes reviewed <CJ Mancilla - Last Filed: 04/07/22 00:27> Medical History: Medical History Anxiety Asthma Avascular necrosis of femoral head Bilateral carpal tunnel syndrome Chronic constipation Colon cancer screening Constipation Diverticulosis Dizziness of unknown etiology Dyspareunia Dyspareunia, female GERD (gastroesophageal reflux disease) Hx of schizophrenia Hyperlipidemia Incisional hernia without obstruction or gangrene Ingrown toenail Insomnia Iron deficiency anemia Lumbar degenerative disc disease Major depression, recurrent Migraine Obesity (BMI 30-39.9) Orthostatic hypotension MIGUEL (obstructive sleep apnea) Overweight (BMI 25.0-29.9) Painful sexual intercourse Panic attacks Peroneal neuropathy PTSD (post-traumatic stress disorder) Pyelonephritis Renal cyst Renal cyst Sacroiliitis Spondylosis of lumbar spine Tremor Tubular adenoma UTI (urinary tract infection) Vitamin D deficiency <Ivy Bangura MD - Last Filed: 04/06/22 14:26> Surgical History: Surgical History H/O left nephrectomy History of bilateral breast reduction surgery History of bladder repair surgery (~03/2015) History of bladder surgery (~10/2009) History of cholecystectomy History of colonoscopy History of endoscopy (~06/2016) History of gastric bypass (~2008) History of hernia repair (~03/29/10) History of hysterectomy History of incisional hernia repair (~1999) History of surgery Hx of cystoscopy Hx of umbilical hernia repair (~1999) S/P cystoscopy (~07/30/12) S/P laparoscopic sleeve gastrectomy S/P panniculectomy <Ivy Bangura MD - Last Filed: 04/06/22 14:26> Family History Family History: Family History Father Liver cancer Mother Breast cancer Maternal Grandmother Breast cancer Sister Lung cancer Other Mental health problem <Ivy Bangura MD - Last Filed: 04/06/22 14:26> Social History Social History: Social History Household Members: Spouse Housing: House Alcohol intake: never Patient Tobacco Use Status: Never used Tobacco e-Cigarette/Vaping Use: Never Used Second Hand Smoke Exposure: No Advance Directives Date on File: 07/12/21 service: No Current occupational status: disabled Sexual orientation: Straight/Heterosexual Cognitive needs: No Hearing needs: No Vision needs: Yes <Ivy Bangura MD - Last Filed: 04/06/22 14:26> Physical Exam ED Vital Signs: Vital Signs - 24 hr 04/06/22 14:21 04/06/22 21:16 04/07/22 00:00 Temperature 98.4 F 98.1 F 98.2 F Pulse Rate 67 61 67 Respiratory Rate 18 16 16 Blood Pressure 104/52 L 125/76 91/49 L Pulse Oximetry 95 99 98 Oxygen Delivery Method Room Air Room Air Room Air BMI result Body Mass Index 32.1 <Ivy Bangura MD - Last Filed: 04/06/22 14:26> Vital Signs - 24 hr 04/06/22 14:21 04/06/22 21:16 04/07/22 00:00 Temperature 98.4 F 98.1 F 98.2 F Pulse Rate 67 61 67 Respiratory Rate 18 16 16 Blood Pressure 104/52 L 125/76 91/49 L Pulse Oximetry 95 99 98 Oxygen Delivery Method Room Air Room Air Room Air BMI result Body Mass Index 32.1 vss <CJ Mancilla - Last Filed: 04/07/22 00:27> Appearance: Alert.? Oriented X3.? No acute distress.? Head: Normocephalic, atraumatic, no step-offs or deformities Eyes: Pupils equal, round and reactive to light.? CVS: Normal heart rate and rhythm.? Pulses normal.? Respiratory: No respiratory distress.? Breath sounds normal.? Abdomen: Soft and tender to palpation in the right and left lower abdominal quadrants. Active bowel sounds all 4 quadrants. Negative Hebert's,. Skin: Skin warm and dry.? Normal skin color.? Normal skin turgor.? Extremities: No lower extremity edema.? No calf ttp. 5/5 strength to bilateral upper and lower extremities Back: No midline tenderness, no C-spine tenderness, full range of motion, no CVA tenderness bilaterally Neuro: Oriented X 3.? No motor deficit.? No sensory deficit. CN 2-12 intact <CJ Mancilla - Last Filed: 04/07/22 00:27> Course Course Course Narrative: Patient is a 51-year-old female with a history urinary tract infection a past status post gastric bypass a few years ago presents today with having abdominal pain. The abdominal pain is over the left side. Associated with nausea vomiting. There is no change in bowel movement. There is no pain on urination. Patient is from home. No cough no congestion upper respiratory symptoms. Patient has not had something similar in the past. Positive history kidney stones in the past. Positive generalized malaise <Ivy Bangura MD - Last Filed: 04/06/22 14:26> Reevaluation(s) Reevaluation #1: Ultrasound unremarkable. CBC appears to be around patient's baseline with a chronically elevated MCV. Chemistry without acute electrolyte abnormalities requiring intervention. Transaminases noted to be elevated, they have been elevated in the past as well. Pain is not localized to the right upper quadrant. Urine with infection. Patient will be given Ceftin. Patient without CVA tenderness on therefore low suspicion for pyelonephritis. CT of the abdomen and pelvis revealing stable right renal cyst and a 7 mm calculus at the lower pole of the right kidney however unlikely causing patient's symptoms as there is no hydronephrosis. It is likely that patient has passed the stone. Suspected that pain is coming from UTI as it is described as bilateral lower abdominal pain. Again low suspicion for ovarian torsion, ectopic . Will give patient medication for pain control reassess that patient will be discharged home with Urology follow-up as she gets recurrent UTIs. Educated patient on worrisome signs and symptoms and when to return. Comfortable discharge home. <CJ Mancilla - Last Filed: 04/07/22 00:27> Time: 00:27 <CJ Mancilla - Last Filed: 04/07/22 00:27> Medical Decision Making Medical Decision Making [facility] Narrative: 2200 51-year-old female presents to the emergency department today with complaints of RLQ abdominal pain associated with nausea X2 days, a/c anorexia history of gastric bypass and hysterectomy with oophorectomy. PE - tender to palpation in the right & left lower abdominal quadrants. Negative Hebert's. Concerns for possible diverticulitis, appendicitis, UTI versus cystitis. Unlikely cholecystitis, pancreatitis, pyelo, small or large bowel obstruction, peptic ulcer disease, ovarian torsion, ectopic . I do not suspect acute abdomen at this time. Plan at this time is labs, imaging, urine, urine hCG. <CJ Mancilla - Last Filed: 04/07/22 00:27> Medications Administered Discontinued Medications Generic Name Dose Route Start Last Admin Trade Name Frenicole PRN Reason Stop Dose Admin Cefuroxime Axetil 250 mg 04/06/22 23:26 04/06/22 23:44 Cefuroxime Axetil 250 Mg Tablet PO 04/06/22 23:27 250 mg ONCE ONE Administration Hydromorphone HCl 0.5 mg 04/06/22 23:22 04/06/22 23:44 Hydromorphone Hcl 0.5 Mg/0.5 Ml Syringe IVPUSH 04/06/22 23:23 0.5 mg ONCE ONE Administration Protocol Sodium Chloride 1,000 mls @ 999 mls/hr 04/06/22 14:30 04/06/22 23:47 Ns IV 04/06/22 15:30 Infused .Q1H1M JYOTHI Infusion Morphine Sulfate 4 mg 04/06/22 21:49 04/06/22 22:47 Morphine Sulfate 4 Mg/Ml Cartridge IVPUSH 04/06/22 21:50 4 mg ONCE ONE Administration Protocol Ondansetron HCl 4 mg 04/06/22 14:26 04/06/22 21:44 Ondansetron Hcl 4 Mg/2 Ml Vial IVPUSH 04/06/22 14:27 4 mg ONCE ONE Administration <Ivy Bangura MD - Last Filed: 04/06/22 14:26> Medications Administered Discontinued Medications Generic Name Dose Route Start Last Admin Trade Name Larry PRN Reason Stop Dose Admin Cefuroxime Axetil 250 mg 04/06/22 23:26 04/06/22 23:44 Cefuroxime Axetil 250 Mg Tablet PO 04/06/22 23:27 250 mg ONCE ONE Administration Hydromorphone HCl 0.5 mg 04/06/22 23:22 04/06/22 23:44 Hydromorphone Hcl 0.5 Mg/0.5 Ml Syringe IVPUSH 04/06/22 23:23 0.5 mg ONCE ONE Administration Protocol Sodium Chloride 1,000 mls @ 999 mls/hr 04/06/22 14:30 04/06/22 23:47 Ns IV 04/06/22 15:30 Infused .Q1H1M JYOTHI Infusion Morphine Sulfate 4 mg 04/06/22 21:49 04/06/22 22:47 Morphine Sulfate 4 Mg/Ml Cartridge IVPUSH 04/06/22 21:50 4 mg ONCE ONE Administration Protocol Ondansetron HCl 4 mg 04/06/22 14:26 04/06/22 21:44 Ondansetron Hcl 4 Mg/2 Ml Vial IVPUSH 04/06/22 14:27 4 mg ONCE ONE Administration <CJ Mancilla - Last Filed: 04/07/22 00:27> Critical Care Time Critical Care Time Critical Care Time: No <CJ Mancilla - Last Filed: 04/07/22 00:27> Discharge Plan Discharge Clinical Impression: Bilateral lower abdominal pain, UTI (urinary tract infection) <Ivy Bangura MD - Last Filed: 04/06/22 14:26> Patient Disposition: Home, Self-Care <Ivy Bangura MD - Last Filed: 04/06/22 14:26> Instructions: Urinary Tract Infection in Women (ED), Abdominal Pain (ED) <Ivy Bangura MD - Last Filed: 04/06/22 14:26> Additional Instructions: Take your medications as prescribed. If you were prescribed antibiotics today, it is important that you take your medication to their entirety, do not skip any doses, do not finish them early. Follow-up with your primary care provider this week. Please follow-up with urology as you get recurrent urinary tract infections. Return to the emergency department with new or worsening symptoms. Such as fevers, chills, chest pain, shortness of breath, nausea, vomiting, dizziness, headache, vision changes, lethargy, inability to eat or drink, worsening pain, changes in quality of pain, migration of pain. In case of emergency call 911 Pyridium is a medication that can make your urine a weird color, this is normal. [place]lsea medicamentos seg?n lo prescrito. Si le recetaron antibi?ticos hoy, es importante que tome wick medicamento en wick totalidad, no se salte ninguna dosis, no los termine antes de tiempo. Seguimiento con wick proveedor de atenci?n primaria esta semana. Corey un seguimiento con urolog?a a medida que tenga infecciones recurrentes del tracto urinario. Regrese al departamento de emergencias con s?ntomas nuevos o que empeoran. Tales princess fiebre, escalofr?os, dolor de pecho, dificultad para respirar, n?useas, v?mitos, mareos, dolor de cruz, cambios en la visi?n, letargo, incapacidad para comer o beber, empeoramiento del dolor, cambios en la calidad del dolor, migraci?n del dolor. En sammi de emergencia llama al 911 Pyridium es un medicamento que puede hacer que wick orina tenga un color extra?o, esto es normal. CT/CT abdomen pelvis wo IV con IMPRESSION: 1.? No focal inflammatory process or obstruction. No significant change. 2.? Stable right renal cysts and a 7 mm calculus at the lower pole of the right kidney. No hydronephrosis. US/US abdomen limited IMPRESSION: 1.? A cause for the patient's right upper quadrant pain has not been found. 2.? Incidental note made of hepatic and renal cysts and nonobstructing right lower pole renal calculus. ? <Ivy Bangura MD - Last Filed: 04/06/22 14:26> Prescriptions: New cefuroxime axetil 250 mg tablet 250 mg PO BID 7 Days Qty: 14 0RF phenazopyridine [Pyridium] 100 mg tablet 200 mg PO TID 2 Days Qty: 6 0RF No Action midodrine 5 mg tablet 5 mg PO TID Qty: 270 1RF albuterol sulfate [ProAir HFA] 90 mcg/actuation HFA aerosol inhaler 2 puff inhalation Q6H PRN (Reason: shortness of breath or wheezing) 30 Days Qty: 8.5 5RF cholecalciferol (vitamin D3) [Vitamin D3] 25 mcg (1,000 unit) capsule 25 mcg PO DAILY Qty: 30 1RF gabapentin 800 mg tablet 800 mg PO TID 30 Days Qty: 90 1RF meclizine 25 mg tablet 25 mg PO TID PRN (Reason: dizziness) Qty: 60 1RF tramadol 50 mg tablet 100 mg PO Q8H PRN (Reason: pain (scale score 4-6)) 30 Days Qty: 180 0RF ferrous sulfate 325 mg (65 mg iron) tablet 325 mg PO DAILY Qty: 30 5RF docusate sodium 100 mg capsule 200 mg PO BEDTIME Qty: 180 3RF lactulose [Generlac] 10 gram/15 mL solution 10 g PO BEDTIME PRN (Reason: constipation) 7 Days Qty: 237 0RF trazodone 50 mg tablet 1 tab PO BEDTIME PRN (Reason: insomnia) benztropine 1 mg tablet 1 tab PO BID naproxen 500 mg tablet 1 tab PO DAILY PRN (Reason: Pain) sucralfate 100 mg/mL suspension 10 ml PO BEDTIME omeprazole 20 mg capsule,delayed release(DR/EC) 1 cap PO DAILY clonazepam 0.5 mg Tablet 0.5 mg PO BID PRN (Reason: Anxiety) sennosides [Senna Lax] 8.6 mg Tablet 17.2 mg PO BEDTIME 30 Days Qty: 60 0RF polyethylene glycol 3350 17 gram Powder In Packet 17 g PO BID 30 Days Qty: 60 0RF prazosin 1 mg Capsule 2 mg PO BEDTIME 30 Days Qty: 60 0RF Protocol: Hold for SBP< HOLD for SBP < : 90 lamotrigine 25 mg Tablet 25 mg PO BEDTIME 30 Days Qty: 30 0RF bisacodyl [Laxative (bisacodyl)] 5 mg tablet,delayed release (DR/EC) 10 mg PO BEDTIME sumatriptan succinate 50 mg tablet 50 mg PO BID PRN Linzess 290 mcg capsule 290 mcg PO QAM haloperidol 5 mg tablet 5 mg PO BID duloxetine 30 mg capsule,delayed release(DR/EC) 30 mg PO DAILY risperidone 0.5 mg tablet 0.5 mg PO BEDTIME <Ivy Bangura MD - Last Filed: 04/06/22 14:26> Referrals: [facility] [Provider Group] - 2 days Hung Montelongo MD [Primary Care Provider] - 2 days <Ivy Bangura MD - Last Filed: 04/06/22 14:26> Stand Alone Forms: Work/School Release <Ivy Bangura MD - Last Filed: 04/06/22 14:26>
[2022-04-06 15:00] LABS: MANUAL DIFF FLAG NO
[2022-04-06 15:01] LABS: Basophils Absolute Auto 0.1 X10*3/uL (0.0-0.2); Basophils Percent Auto 1.2 % (0-2); Eosinophils Absolute Auto 0.1 X10*3/uL (0.0-0.4); Eosinophils Percent Auto 1.6 % (0-4); Hematocrit 42.6 % (37.0-47.0); Hemoglobin 14.3 g/dl (12.0-16.0); Lymphocytes Absolute Auto 1.7 X10*3/uL (1.2-4.9); Lymphocytes Percent Auto 33.5 % (20-40); Mean Corpuscular HGB Conc 33.6 g/dl (31.0-35.0); Mean Corpuscular Hemoglobin 33.3 pg (27.0-33.0); Mean Corpuscular Volume 99.1 fL (80.0-98.0); Mean Platelet Volume 9.1 fL (9.4-12.3); Monocytes Absolute Auto 0.4 X10*3/uL (0.1-1.2); Monocytes Percent Auto 8.4 % (2-11); Neutrophils Absolute Auto 2.8 x10*3/uL (2.0-8.3); Neutrophils Percent Auto 55.3 % (45-73); Platelet Count 278 X10*3/uL (160-400); Red Cell Distribution Width 11.8 % (11.0-16.0)
[2022-04-06 15:20] LABS: Alanine Aminotransferase 265 U/L (0-31); Albumin Level 3.7 g/dL (3.5-5.0); Alkaline Phosphatase 244 U/L (39-117); Anion Gap 13 (12-20); Aspartate Amino Transferase 188 U/L (5-31); Bilirubin Direct 0.2 mg/dL (0.0-0.5); Bilirubin Total 0.6 mg/dL (0.0-1.0); Blood Urea Nitrogen 15 mg/dL (9-16); Calcium 8.8 mg/dL (8.4-10.2); Carbon Dioxide 25 mmol/L (22-29); Chloride 107 mmol/L (96-108); Estimated Glomerular Filt Rate 58; Glucose Random 98 mg/dL (60-115); Lipase 8 U/L (8-78); Potassium 4.9 mmol/L (3.3-5.1); Sodium 140 mmol/L (135-145); Total Protein 6.5 g/dL (6.5-8.0)
[2022-04-06 21:16] VITALS: BP 125/76; PULSE 61; RESP 16; TEMP 36.7; O2SAT 99
[2022-04-06] MEDS: 0.9 % Sodium Chloride 1,000 ML 999 ML IV (21:44)
[2022-04-06] MEDS: ondansetron HCL 4 MG/2 ML VIAL IVPUSH (21:44)
[2022-04-06 21:46] LABS: Appearance Urine Clear; Color Urine Dark Yellow; Glucose Urine UA Negative (Negative); Leukocyte Esterase Urine Moderate (2+) (Negative); Nitrite Urine Positive (Negative); PH 5.5 (5.0-9.0); UMIC TRIGGER UACC YES; Urine Blood Negative (Negative); Urine Ketones Negative (Negative); Urine Protein Negative (Neg-Trace)
[2022-04-06 21:48] LABS: Bacteria Urine 4+ (None Seen); Hyaline Casts Urine 0-2 /LPF (0-2); RBC Urine 0-2 /HPF (0-2); UACC Culture Trigger YES; WBC Urine 21-50 /HPF (0-5)
[2022-04-06 22:02] LABS: HCG Quantitative < 2 mIU/mL
[2022-04-06] MEDS: Morphine Sulfate 4 MG/ML CARTRIDGE IVPUSH (22:47)
[2022-04-06] MEDS: HYDROmorphone HCl 0.5 MG/0.5 ML SYRINGE IVPUSH (23:44)
[2022-04-07] VITALS: BP 91/49; PULSE 67; RESP 16; TEMP 36.8; O2SAT 98
--- NOTE | 2022-04-07 00:37 | PC.NURSE ---
IV removed with no complications. Pt tolerated well. Discharge instructions reviewed with pt. Pt verbalizes understanding.
== END 2022-04-07 00:38 | disposition home or self-care (01) ==
PROVIDERS: Emergency Medicine Emergency Medical Services; Physician Assistant; Emergency Provider Internal Medicine; PCP Internal Medicine
DX: N39.0 Urinary tract infection, site not specified (principal); R10.30 Lower abdominal pain, unspecified; Z79.899 Other long term (current) drug therapy
CPT/HCPCS: 36415; 74176; 76705; 80048; 80076; 81001; 83690; 84702; 85025; 87086; 87088; 87186; 96361; 96374; 96375; 99284; J1170; J2270; J2405

== ENCOUNTER 2022-04-08 11:24 | Outpatient (REF) | payer OTHER, SELFPAY ==
[2022-04-08 12:07] LABS: MANUAL DIFF FLAG NO
[2022-04-08 13:14] LABS: Basophils Absolute Auto 0.1 X10*3/uL (0.0-0.2); Basophils Percent Auto 1.1 % (0-2); Eosinophils Absolute Auto 0.1 X10*3/uL (0.0-0.4); Eosinophils Percent Auto 2.3 % (0-4); Hematocrit 42.4 % (37.0-47.0); Imm Gran Abs Auto 0.02 X10*3/uL (0.00-0.03); Imm Gran Pct Auto 0.4 % (0.0-0.4); Lymphocytes Absolute Auto 1.6 X10*3/uL (1.2-4.9); Lymphocytes Percent Auto 30.6 % (20-40); Mean Corpuscular Hemoglobin 33.3 pg (27.0-33.0); Mean Corpuscular Volume 100.7 fL (80.0-98.0); Mean Platelet Volume 9.5 fL (9.4-12.3); Monocytes Absolute Auto 0.4 X10*3/uL (0.1-1.2); Monocytes Percent Auto 6.7 % (2-11); Neutrophils Absolute Auto 3.1 x10*3/uL (2.0-8.3); Neutrophils Percent Auto 58.9 % (45-73); Platelet Count 319 X10*3/uL (160-400); Red Blood Count 4.21 X10*6/uL (4.20-5.50); Red Cell Distribution Width 11.7 % (11.0-16.0); White Blood Count 5.3 X10*3/uL (4.8-10.8)
[2022-04-08 13:21] LABS: Appearance Urine Hazy; Color Urine ORANGE; Leukocyte Esterase Urine Negative (Negative); Nitrite Urine Positive (Negative); PH 5.5 (5.0-9.0); UMIC TRIGGER UACC YES; Urine Blood Negative (Negative); Urine Ketones Negative (Negative); Urine Protein 30 (1+) mg/dL (Neg-Trace)
[2022-04-08 13:28] LABS: Bacteria Urine 2+ (None Seen); Hyaline Casts Urine 0-2 /LPF (0-2); RBC Urine 0-2 /HPF (0-2); Squamous Epithelial Cell Urine 0-2 /HPF (0-2); UACC Culture Trigger YES; WBC Urine 0-5 /HPF (0-5)
[2022-04-08 13:54] LABS: Erythrocyte Sedimentation Rate 16 MM/HR (0-20)
[2022-04-08 13:55] LABS: Blood Urea Nitrogen 12 mg/dL (9-16); Estimated Glomerular Filt Rate 56; Rheumatoid Factor < 15.0 IU/mL (<15.0)
[2022-04-08 14:44] LABS: Alanine Aminotransferase 239 U/L (0-31); Albumin Level 3.6 g/dL (3.5-5.0); Alkaline Phosphatase 249 U/L (39-117); Anion Gap 9 (12-20); Aspartate Amino Transferase 94 U/L (5-31); Bilirubin Total 0.4 mg/dL (0.0-1.0); Blood Urea Nitrogen 12 mg/dL (9-16); Calcium 8.8 mg/dL (8.4-10.2); Carbon Dioxide 31 mmol/L (22-29); Chloride 103 mmol/L (96-108); Cholesterol 241 mg/dL; Estimated Glomerular Filt Rate 54; Gamma Glutamyl Transpeptidase 186 U/L (7-33); Glucose Fasting 92 mg/dL (60-99); HDL Cholesterol 57 mg/dL; LDL Cholesterol Calculated 164 mg/dl; Potassium 4.7 mmol/L (3.3-5.1); Sodium 138 mmol/L (135-145); TSH reflex Free T4 0.97 uIU/mL (0.32-4.0); Total Protein 6.1 g/dL (6.5-8.0); Triglycerides 100 mg/dL; Vitamin D 25-OH Total 29.8 ng/mL (>30)
[2022-04-11 13:38] LABS: Anti Nuclear Antibody Screen NEGATIVE (NEGATIVE)
[2022-04-11 18:02] LABS: Lyme Abs Screen <0.90 index
== END 2022-04-08 11:25 | disposition home or self-care (01) ==
LOC: HO.LAB 11:24
PROVIDERS: Nurse Practitioner Family; PCP Internal Medicine; Visit Provider Internal Medicine
DX: R10.11 Right upper quadrant pain (principal); M25.521 Pain in right elbow; M25.522 Pain in left elbow; M25.551 Pain in right hip; M25.552 Pain in left hip; M25.561 Pain in right knee; M25.562 Pain in left knee; M79.7 Fibromyalgia; E78.00 Pure hypercholesterolemia, unspecified; E55.9 Vitamin D deficiency, unspecified; R79.89 Other specified abnormal findings of blood chemistry; I10 Essential (primary) hypertension
CPT/HCPCS: 36415; 80053; 80061; 81001; 81256; 82306; 82550; 82565; 82977; 84443; 84520; 85025; 85652; 86038; 86039; 86140; 86431; 86617; 86618; 87086

== ENCOUNTER → 2022-04-15 09:41 | Outpatient (BNVA) | payer OTHER, SELFPAY | PROVIDERS: PCP Internal Medicine; Visit Provider Nurse Practitioner Family | DX: N39.0 Urinary tract infection, site not specified (principal); N20.0 Calculus of kidney; N28.1 Cyst of kidney, acquired; R35.0 Frequency of micturition; R32 Unspecified urinary incontinence | CPT/HCPCS: 51798; 99212 ==

== ENCOUNTER → 2022-04-26 13:09 | Outpatient (BNVA) | payer OTHER, SELFPAY | PROVIDERS: PCP Internal Medicine; Visit Provider Nurse Practitioner Family | DX: K21.9 Gastro-esophageal reflux disease without esophagitis (principal); K59.09 Other constipation; R79.89 Other specified abnormal findings of blood chemistry; Z79.899 Other long term (current) drug therapy | CPT/HCPCS: 99212 ==

== ENCOUNTER 2022-05-03 06:07 | Outpatient (REF) | payer OTHER, SELFPAY ==
--- NOTE | ~2022-05-03 | FL_ITS ---
EXAMINATION: XR FLUOROSCOPY WITH IMAGES CLINICAL INFORMATION: Sacrococcygeal disorder not elsewhere classified. COMPARISON: None. TECHNIQUE: Fluoroscopy Supervised By: Philomena. Fluoroscopy Time: 0.2 minutes. Cumulative Dose: 4.54 mGy. DAP: 1.23 Gycm2. Images: 2. FINDINGS: There are 2 digital images with needle positioned over the SI joints and contrast opacifying the soft tissues. The SI joints spaces maintained normal. FL/FL guidance in treatment room IMPRESSION: Fluoroscopy was provided to referrer for bilateral SI joint injection.
== END 2022-05-03 06:08 | disposition home or self-care (01) ==
LOC: CF 06:07
PROVIDERS: Visit Provider Anesthesiology
DX: M53.3 Sacrococcygeal disorders, not elsewhere classified (principal); M46.1 Sacroiliitis, not elsewhere classified; M47.816 Spondylosis without myelopathy or radiculopathy, lumbar region; E66.9 Obesity, unspecified; L98.7 Excessive and redundant skin and subcutaneous tissue; Z98.84 Bariatric surgery status
CPT/HCPCS: 27096; 99212

== ENCOUNTER → 2022-05-09 16:07 | Outpatient (BNVA) | payer OTHER, SELFPAY | PROVIDERS: PCP Internal Medicine; Visit Provider Anesthesiology | DX: Z13.89 Encounter for screening for other disorder (principal) ==

== ENCOUNTER 2022-05-19 17:17 | Inpatient (IN) | payer OTHER, SELFPAY ==
--- NOTE | ~2022-05-19 | CT_ITS ---
EXAMINATION: CT ABDOMEN WITHOUT CONTRAST CLINICAL INFORMATION: Elevated LFT. COMPARISON: 04/06/2022. TECHNIQUE: Contiguous axial thin section helical images of the abdomen were performed without contrast. The data set was reformatted in the coronal and sagittal planes and reviewed on an independent workstation. This CT examination was performed using dose optimization techniques as appropriate, variously including the following: *Automated exposure control *Adjustment of mA and/or kV according to patient size (this includes techniques or standardized protocols for targeted exams where dose is matched to indication/reason for exam; i.e. extremities or head) *Use of iterative reconstruction technique DLP: 363 mGy-cm FINDINGS: LUNG BASES: No suspicious lung nodules. LIVER, GALLBLADDER, BILIARY TREE: Noncontrast evaluation of the liver appears normal. Hepatic density is similar to splenic density. There is a water density cyst in the dome of the left lobe. No imaging follow-up is recommended. No biliary ductal dilatation. The gallbladder has been removed. The common bile duct is not dilated. No visible choledocholithiasis. PANCREAS: Largely fatty replacement of the pancreas. No discrete pancreatic mass. No ductal dilatation. SPLEEN: Surgical changes adjacent to the spleen but otherwise unremarkable. The spleen is not enlarged. ADRENAL GLANDS AND KIDNEYS: No adrenal mass. Left nephrectomy. No mass in the nephrectomy bed. Multiple simple cysts in the right kidney. No imaging follow-up is recommended. 6 mm nonobstructing calculus in the lower pole the right kidney measuring 850 HU and 9.9 cm from the posterior skin surface. No hydroureteronephrosis. BOWEL LOOPS: Left abdominal wall hernia repair. No visible hernia recurrence. Gastric bypass. No evidence of bowel obstruction. The biliopancreatic limb is not dilated. LYMPH NODES: No lymphadenopathy. VASCULAR: No aortic aneurysm. BONES: Degenerative changes in the spine. No suspicious osseous lesions. CT/CT abdomen wo IV con IMPRESSION: Noncontrast evaluation of the liver is normal. No biliary ductal dilatation. No visible choledocholithiasis. Cholecystectomy. Nonobstructing calculus lower pole right kidney. Fleischner guidelines were followed.
--- NOTE | ~2022-05-19 | XR_ITS ---
EXAMINATION: XR ABDOMEN KUB CLINICAL INDICATION: Constipation COMPARISON: None TECHNIQUE: AP view of the abdomen. FINDINGS: There is scattered stool and gas seen in the colon without distention. There is no organomegaly. There are postsurgical changes in the left epigastric region from previous intervention. Surgical komal in the right upper quadrant from previous cholecystectomy. There are left midabdomen abdominal wall hernia repair changes. Radiopaque calculi are seen in the right kidney with largest one measuring 9 mm in midpole. Bone windows reveal no lytic or sclerotic process. The SI joints are symmetrical. XR/XR KUB IMPRESSION: 1. Mild constipation. 2. Right renal calculi. 3. Postsurgical changes left epigastric region, left midabdomen abdominal wall hernia repair and cholecystectomy.
[2022-05-19 17:26] VITALS: BP 110/78; BP 124/81; PULSE 100; PULSE 58; RESP 18; TEMP 36.6; O2SAT 97; O2SAT 98; BMI 31.5
--- NOTE | 2022-05-19 17:59 | ECG_ITS ---
Test Reason : S/I Blood Pressure : / mmHG Vent. Rate : 062 BPM Atrial Rate : 062 BPM P-R Int : 146 ms QRS Dur : 080 ms QT Int : 436 ms P-R-T Axes : 032 044 020 degrees QTc Int : 442 ms Normal sinus rhythm Normal ECG When compared with ECG of 29-OCT-2021 11:59, No significant change was found Referred By: Debi Murray Electronically Signed By:MALCOLM ARTEAGA MD
[2022-05-19 18:20] LABS: Appearance Urine Cloudy; Color Urine Yellow; Glucose Urine UA Negative (Negative); Leukocyte Esterase Urine Large (3+) (Negative); Nitrite Urine Negative (Negative); Specific Gravity - Urine 1.015 (1.005-1.025); UMIC TRIGGER UACC YES; Urine Blood Small (1+) (Negative); Urine Ketones Negative (Negative); Urine Protein Negative (Neg-Trace)
[2022-05-19 18:33] LABS: Bacteria Urine 4+ (None Seen); Hyaline Casts Urine 0-2 /LPF (0-2); UACC Culture Trigger YES; WBC Urine >50 /HPF (0-5)
[2022-05-19 18:39] LABS: Amphetamine Screen Urine Not Detected (Not Detect); Barbiturates, Urine Not Detected (Not Detect); Benzodiazepines Screen Urine Not Detected (Not Detect); Cannabinoid Screen Urine Not Detected (Not Detect); Cocaine Screen Urine Not Detected (Not Detect); Fentanyl, urine Not Detected (Not Detect); Opiate Screen Urine Not Detected (Not Detect); Phencyclidine Screen Urine POSITIVE (Not Detect)
[2022-05-19 18:56] LABS: Influenza A PCR NEGATIVE (Negative); Influenza B PCR NEGATIVE (Negative); Resp Syncy Virus RNA Qual PCR NEGATIVE (Negative); SARS COV2 PCR INHOUSE NEGATIVE (Negative)
[2022-05-19 19:12] LABS: MANUAL DIFF FLAG NO
[2022-05-19 19:19] LABS: Basophils Absolute Auto 0.1 X10*3/uL (0.0-0.2); Basophils Percent Auto 0.8 % (0-2); Eosinophils Absolute Auto 0.1 X10*3/uL (0.0-0.4); Eosinophils Percent Auto 1.6 % (0-4); Hematocrit 40.3 % (37.0-47.0); Hemoglobin 13.2 g/dl (12.0-16.0); Imm Gran Abs Auto 0.01 X10*3/uL (0.00-0.03); Imm Gran Pct Auto 0.2 % (0.0-0.4); Lymphocytes Absolute Auto 2.1 X10*3/uL (1.2-4.9); Lymphocytes Percent Auto 33.6 % (20-40); Mean Corpuscular HGB Conc 32.8 g/dl (31.0-35.0); Mean Corpuscular Hemoglobin 32.5 pg (27.0-33.0); Mean Corpuscular Volume 99.3 fL (80.0-98.0); Mean Platelet Volume 9.1 fL (9.4-12.3); Monocytes Absolute Auto 0.3 X10*3/uL (0.1-1.2); Monocytes Percent Auto 5.5 % (2-11); Neutrophils Absolute Auto 3.6 x10*3/uL (2.0-8.3); Neutrophils Percent Auto 58.3 % (45-73); Platelet Count 277 X10*3/uL (160-400); Red Blood Count 4.06 X10*6/uL (4.20-5.50); Red Cell Distribution Width 11.6 % (11.0-16.0); White Blood Count 6.2 X10*3/uL (4.8-10.8)
[2022-05-19 19:27] LABS: Prothrombin Time 11.3 SEC (10.0-13.1)
[2022-05-19 19:36] LABS: Alanine Aminotransferase 13 U/L (0-31); Albumin Level 3.4 g/dL (3.5-5.0); Alkaline Phosphatase 117 U/L (39-117); Anion Gap 13 (12-20); Aspartate Amino Transferase 14 U/L (5-31); Bilirubin Total 0.6 mg/dL (0.0-1.0); Blood Urea Nitrogen 13 mg/dL (9-16); Calcium 8.8 mg/dL (8.4-10.2); Carbon Dioxide 26 mmol/L (22-29); Chloride 105 mmol/L (96-108); Creatinine Clr Calc Pharmacy 45.6; Estimated Glomerular Filt Rate 38; Ethanol < 10 mg/dL; Glucose Random 187 mg/dL (60-115); HCG Quantitative < 2 mIU/mL; Lipase 10 U/L (8-78); Magnesium 1.7 mg/dL (1.6-2.6); Potassium 4.6 mmol/L (3.3-5.1); Sodium 139 mmol/L (135-145); Total Protein 5.8 g/dL (6.5-8.0)
--- NOTE | 2022-05-19 19:41 | ED_ITS ---
HPI - Psych General Chief Complaint: Psychiatric Symptoms Stated Complaint: si Time Seen by Provider: 05/19/22 19:18 Source: patient and EMS Mode of arrival: EMS History of Present Illness HPI Narrative: 51-year-old female with a past medical history of anxiety, diverticulosis, GERD, schizophrenia, HLD, anemia, depression, MIGUEL, PTSD, presenting to the ED complaining of auditory and visual hallucinations with suicidal ideations/ increasing depression. Admits to seeing shadows and voices telling her to hurt herself. Admits one of her psych medications was recently increased. also reports dysuria. Denies illicit drugs/ EtOH, CP/SOB, abdominal pain, nausea/vomiting, decreased p.o. intake MD complaint: suicidal ideation and feels depressed Onset (ago): day(s) Related Data Home Medications Medication Instructions Recorded Confirmed benztropine 1 mg tablet 1 tab PO BID 10/28/21 05/19/22 haloperidol 5 mg tablet 5 mg PO BID 02/28/22 05/19/22 atorvastatin 10 mg tablet 10 mg PO BEDTIME 05/03/22 05/19/22 cholecalciferol (vitamin D3) 25 1 cap PO DAILY 05/19/22 05/19/22 mcg (1,000 unit) capsule (Vitamin D3) clonazepam 0.5 mg tablet 0.5 mg PO BID PRN Anxiety 05/19/22 05/19/22 gabapentin 800 mg tablet 1 tab PO TID 05/19/22 05/19/22 meclizine 25 mg tablet 25 mg PO TID PRN dizziness 05/19/22 05/19/22 Previous Rx's Medication Instructions Recorded albuterol sulfate 90 mcg/actuation 2 puff inhalation Q6H PRN 10/27/21 aerosol inhaler (ProAir HFA) shortness of breath or wheezing 30 days #8.5 grams oxybutynin chloride 5 mg 5 mg PO DAILY 90 days #90 tabs 04/15/22 tablet,extended release 24 hr sennosides 8.6 mg tablet (Senna 17.2 mg PO BEDTIME 30 days #60 tabs 04/26/22 Lax) Allergies Allergy/AdvReac Type Severity Reaction Status Date / Time No Known Allergies Allergy Verified 05/09/22 16:08 Review of Systems Review of Systems: Constitutional: No Fever, No Chills, No Fatigue, No Malaise ENT/Mouth: No Ear Pain, No Nasal Congestion, No sore throat, No Rhinorrhea, No Swallowing Difficulty Eyes: No Eye Pain, No Swelling, No Redness Cardiovascular: No Chest Pain, No SOBs Respiratory: No Cough, No Sputum, No Dyspnea Gastrointestinal: No Nausea, No Vomiting, No Diarrhea, No Constipation, No Abdominal pain Genitourinary: + Dysuria, No Urinary Frequency, No Hematuria, No Flank Pain, No Urinary Flow Changes, No Hesitancy Musculoskeletal: No joint pain, No Myalgias, No Joint Swelling Skin: No Skin Lesions, No rash Neuro: No Weakness, No Dizziness, No Headache Psych: No Anxiety/Panic, No Depression, + SI/AH/VH, No HI, No Social Issues Yes all other systems are reviewed and are negative Constitutional: Constitutional: Reports as per [facility] Past Medical History Attestation statement: The following information was validated with the patient. Medical History Anxiety Asthma Avascular necrosis of femoral head Bilateral carpal tunnel syndrome Chronic constipation Colon cancer screening Constipation Diverticulosis Dizziness of unknown etiology Dyspareunia Dyspareunia, female GERD (gastroesophageal reflux disease) Hx of schizophrenia Hyperlipidemia Incisional hernia without obstruction or gangrene Ingrown toenail Insomnia Iron deficiency anemia Lumbar degenerative disc disease Major depression, recurrent Migraine Obesity (BMI 30-39.9) Orthostatic hypotension MIGUEL (obstructive sleep apnea) Overweight (BMI 25.0-29.9) Painful sexual intercourse Panic attacks Peroneal neuropathy PTSD (post-traumatic stress disorder) Pyelonephritis Renal cyst Renal cyst Sacroiliitis Spondylosis of lumbar spine Tremor Tubular adenoma UTI (urinary tract infection) Vitamin D deficiency Surgical History H/O left nephrectomy History of bilateral breast reduction surgery History of bladder repair surgery (~03/2015) History of bladder surgery (~10/2009) History of cholecystectomy History of colonoscopy History of endoscopy (~06/2016) History of gastric bypass (~2008) History of hernia repair (~03/29/10) History of hysterectomy History of incisional hernia repair (~1999) History of surgery Hx of cystoscopy Hx of umbilical hernia repair (~1999) S/P cystoscopy (~07/30/12) S/P laparoscopic sleeve gastrectomy S/P panniculectomy Family History Family History Father Liver cancer Mother Breast cancer Maternal Grandmother Breast cancer Sister Lung cancer Other Mental health problem Social History Social History Household Members: Spouse and Family Housing: House Do you presently have visiting nurse or other home services: Yes Alcohol intake: never Patient Tobacco Use Status: Never used Tobacco e-Cigarette/Vaping Use: Never Used Second Hand Smoke Exposure: No Use of substances other than those prescribed or required for medical reasons: No Have you been hit, kicked, punched, or otherwise hurt by someone within the past year? If so, by whom?: No Do you feel safe in your current relationship?: Yes Is there a partner from a previous relationship who is making you feel unsafe now?: No Are you made to feel afraid or neglected: No Spiritual Healthcare Practices: none identified Pentecostalism Healthcare Practices: none identified Cultural Healthcare Practices: none identified Advance Directives: Yes Advance Directives on File: Yes Advance Directives Date on File: 07/12/21 Do you have thoughts of harming others: None Do you have a plan to hurt others: No Plan Recently lost weight without trying: No How much weight loss: Not applicable Eating poorly because of decreased appetite: No Nutrition screen score: 0 Nutrition Risks: No Nutritional Risk Patient : No : No Poor oral hygiene: No service: No Current occupational status: disabled Sexual orientation: Straight/Heterosexual Cognitive needs: No Hearing needs: No Vision needs: Yes Physical Exam Vital Signs: Vital Signs: Last Vital Signs Temp 97.8 F 05/19/22 17:26 Pulse 100 05/19/22 17:26 Resp 18 05/19/22 17:26 BP 124/81 05/19/22 17:26 Pulse Ox 97 05/19/22 17:26 O2 Del Method 05/19/22 17:26 BMI result Body Mass Index 31.5 Const: General: cooperative, healthy appearing, no acute distress, alert and awake Orientation/consciousness: patient oriented x3 Limitations: no limitations HEENT: Head: Yes normal to inspection and Yes atraumatic Ears: hearing grossly normal bilaterally General nose exam: Normal external nose present Face and sinus: Yes normal facial exam Eyes: General: appearance normal, both eyes and all related structures EOM: EOMs intact bilaterally Neck: Neck: Yes normal visual inspection and Yes no meningeal signs Resp: Effort & Inspection: normal respiratory effort and no respiratory distress Auscultation: clear to auscultation bilaterally, no rhonchi and no wheezes Cardio: Rate: regular rate Heart sounds: S1 normal heart sound present and S2 normal heart sound present GI: Inspection: Yes normal to inspection Palpation (GI): Soft to palpation, nontender, no guarding and not rigid : General: Yes no CVA tenderness Back/Spine/Pelvis: Back: no CVA tenderness Skin: Rashes: no rashes Wounds: no wounds Neuro: General: patient oriented x3, tone normal and no meningeal signs Cranial nerves: Yes CN's II-XII intact bilaterally Extrem: General: Yes normal to inspection Psych: Appearance: grossly normal Thought content: Suicidality present, no homicidality, Hallucination(s) present auditory and visual and Depressive thoughts present Course Course Course Narrative: -- no leukocytosis. Mild EHSAN with a creatinine of 1.45 > will encourage p.o. fluids - UA infected > patient given dose of p.o. Ceftin - tox screen positive for PCP >> patient accepted to [facility] Medications Administered Generic Name Dose Route Start Last Admin Trade Name Freq PRN Reason Stop Dose Admin Cefuroxime Axetil 250 mg 05/19/22 21:00 05/19/22 21:04 Cefuroxime Axetil 250 Mg Tablet PO 250 mg BID JYOTHI Administration Medical Decision Making Medical Decision Making MDM Narrative: 51-year-old female with a past medical history of anxiety, diverticulosis, GERD, schizophrenia, HLD, anemia, depression, MIGUEL, PTSD, presenting to the ED c omplaining of auditory and visual hallucinations with suicidal ideations/ increasing depression. On exam vital signs stable, NAD, nontoxic appearing, depressed and suicidal during evaluation. Physical exam otherwise nonfocal. will rule out organic pathology including metabolic abnormalities and infectious etiology vs Psychiatric illness plan: EKG, Labs, UA, drug screen, CARE team consult Please refer to course for remaining clinical decision making, interpretation of labs/imaging results, and discussions with consultants and/or family members. Differential Diagnosis Differential Diagnoses: The differential diagnosis associated with the presentation includes as above Admission/Observation Consideration of admission/observation: Escalation of care including admission/observation considered Consult Healthcare Provider Management of the patient was discussed with: Behavioral Health Provider Lab Data MDM Lab Attestation statement: I reviewed the patient's lab results. 05/19/22 19:06 05/19/22 19:02 Labs: Lab Results 05/19/22 05/19/22 05/19/22 Range/Units 18:08 18:08 18:08 WBC (4.8-10.8) X10*3/uL RBC (4.20-5.50) X10*6/uL Hgb (12.0-16.0) g/dl Hct (37.0-47.0) % MCV (80.0-98.0) fL MCH (27.0-33.0) pg MCHC (31.0-35.0) g/dl RDW (11.0-16.0) % Plt Count (160-400) X10*3/uL MPV (9.4-12.3) fL Immature Gran % (Auto) (0.0-0.4) % Neut % (Auto) (45-73) % Lymph % (Auto) (20-40) % [place] % (Auto) (2-11) % Eos % (Auto) (0-4) % Baso % (Auto) (0-2) % Lymph # (Auto) (1.2-4.9) X10*3/uL [place] # (Auto) (0.1-1.2) X10*3/uL Eos # (Auto) (0.0-0.4) X10*3/uL Baso # (Auto) (0.0-0.2) X10*3/uL Abs Immat Gran (auto) (0.00-0.03) X10*3/uL Absolute Neuts (auto) (2.0-8.3) x10*3/uL Absolute Nucleated RBC (0.0-0.012) X10*3/uL Nucleated RBC % (auto) (0.0-0.2) /100WBC PT (10.0-13.1) SEC INR (0.9-1.1) Sodium (135-145) mmol/L Potassium (3.3-5.1) mmol/L Chloride (96-108) mmol/L Carbon Dioxide (22-29) mmol/L Anion Gap (12-20) BUN (9-16) mg/dL Creatinine (0.5-1.4) mg/dL Estim Creat Clear Calc Estimated GFR Random Glucose (60-115) mg/dL Calcium (8.4-10.2) mg/dL Magnesium (1.6-2.6) mg/dL Total Bilirubin (0.0-1.0) mg/dL AST (5-31) U/L ALT (0-31) U/L Alkaline Phosphatase (39-117) U/L Total Protein (6.5-8.0) g/dL Albumin (3.5-5.0) g/dL Lipase (8-78) U/L Beta HCG, Quant mIU/mL Urine Color Yellow Urine Appearance Cloudy Urine pH 6.0 (5.0-9.0) Ur Specific [place] 1.015 (1.005-1.025) Urine Protein Negative (Neg-Trace) mg/dL Urine Glucose (UA) Negative (Negative) mg/dL Urine Ketones Negative (Negative) mg/dL Urine Blood Small (1+) H (Negative) Urine Nitrite Negative (Negative) Ur Leukocyte Esterase Large (3+) H (Negative) Urine RBC 3-5 H (0-2) /HPF Urine WBC >50 H (0-5) /HPF Ur Squamous Epith Cells 3-5 (0-2) /HPF Urine Bacteria 4+ (None Seen) Hyaline Casts 0-2 (0-2) /LPF Urine Opiates Screen Not Detected (Not Detect) Urine Fentanyl Screen Not Detected (Not Detect) Ur Barbiturates Screen Not Detected (Not Detect) Ur Phencyclidine Scrn POSITIVE H (Not Detect) Ur Amphetamines Screen Not Detected (Not Detect) U Benzodiazepines Scrn Not Detected (Not Detect) Urine Cocaine Screen Not Detected (Not Detect) U Marijuana (THC) Screen Not Detected (Not Detect) Ethyl Alcohol mg/dL Influenza Type A (PCR) NEGATIVE (Negative) Influenza Type B (PCR) NEGATIVE (Negative) RSV RNA Qual (PCR) NEGATIVE (Negative) SARS-CoV-2 RNA (RT-PCR) NEGATIVE (Negative) 05/19/22 05/19/22 05/19/22 Range/Units 19:02 19:06 19:06 WBC 6.2 (4.8-10.8) X10*3/uL RBC 4.06 L (4.20-5.50) X10*6/uL Hgb 13.2 (12.0-16.0) g/dl Hct 40.3 (37.0-47.0) % MCV 99.3 H (80.0-98.0) fL MCH 32.5 (27.0-33.0) pg MCHC 32.8 (31.0-35.0) g/dl RDW 11.6 (11.0-16.0) % Plt Count 277 (160-400) X10*3/uL MPV 9.1 L (9.4-12.3) fL Immature Gran % (Auto) 0.2 (0.0-0.4) % Neut % (Auto) 58.3 (45-73) % Lymph % (Auto) 33.6 (20-40) % [place] % (Auto) 5.5 (2-11) % Eos % (Auto) 1.6 (0-4) % Baso % (Auto) 0.8 (0-2) % Lymph # (Auto) 2.1 (1.2-4.9) X10*3/uL [place] # (Auto) 0.3 (0.1-1.2) X10*3/uL Eos # (Auto) 0.1 (0.0-0.4) X10*3/uL Baso # (Auto) 0.1 (0.0-0.2) X10*3/uL Abs Immat Gran (auto) 0.01 (0.00-0.03) X10*3/uL Absolute Neuts (auto) 3.6 (2.0-8.3) x10*3/uL Absolute Nucleated RBC 0.000 (0.0-0.012) X10*3/uL Nucleated RBC % (auto) 0.0 (0.0-0.2) /100WBC PT 11.3 (10.0-13.1) SEC INR 1.0 (0.9-1.1) Sodium 139 (135-145) mmol/L Potassium 4.6 (3.3-5.1) mmol/L Chloride 105 (96-108) mmol/L Carbon Dioxide 26 (22-29) mmol/L Anion Gap 13 (12-20) BUN 13 (9-16) mg/dL Creatinine 1.45 H (0.5-1.4) mg/dL Estim Creat Clear Calc 45.6 Estimated GFR 38 Random Glucose 187 H (60-115) mg/dL Calcium 8.8 (8.4-10.2) mg/dL Magnesium 1.7 (1.6-2.6) mg/dL Total Bilirubin 0.6 (0.0-1.0) mg/dL AST 14 (5-31) U/L ALT 13 (0-31) U/L Alkaline Phosphatase 117 (39-117) U/L Total Protein 5.8 L (6.5-8.0) g/dL Albumin 3.4 L (3.5-5.0) g/dL Lipase 10 (8-78) U/L Beta HCG, Quant < 2 mIU/mL Urine Color Urine Appearance Urine pH (5.0-9.0) Ur Specific [place] (1.005-1.025) Urine Protein (Neg-Trace) mg/dL Urine Glucose (UA) (Negative) mg/dL Urine Ketones (Negative) mg/dL Urine Blood (Negative) Urine Nitrite (Negative) Ur Leukocyte Esterase (Negative) Urine RBC (0-2) /HPF Urine WBC (0-5) /HPF Ur Squamous Epith Cells (0-2) /HPF Urine Bacteria (None Seen) Hyaline Casts (0-2) /LPF Urine Opiates Screen (Not Detect) Urine Fentanyl Screen (Not Detect) Ur Barbiturates Screen (Not Detect) Ur Phencyclidine Scrn (Not Detect) Ur Amphetamines Screen (Not Detect) U Benzodiazepines Scrn (Not Detect) Urine Cocaine Screen (Not Detect) U Marijuana (THC) Screen (Not Detect) Ethyl Alcohol < 10 mg/dL Influenza Type A (PCR) (Negative) Influenza Type B (PCR) (Negative) RSV RNA Qual (PCR) (Negative) SARS-CoV-2 RNA (RT-PCR) (Negative) Independent Interpretation I performed an independent interpretation of an: EKG Interpretation: my interpretation: Normal sinus rhythm at a rate of 62. OK interval 146. QTC 442. No STEMI. No significant change when compared to prior External Record Review External record reviewed: Office record, Outpatient record and Prior outpatient labs Discharge Plan Discharge Clinical Impression: Hallucinations, UTI (urinary tract infection), Suicidal ideations Patient Disposition: Admitted As Inpatient Interventions: M[place]ulloch-Suicide Risk Severity Scale Last Done: 05/19/22 17:33 Admission Worksheet (ED) Last Done: 05/19/22 22:29 Discharge Date/Time: 05/19/22 22:30
[2022-05-19 20:10] VITALS: BP 122/76; PULSE 61; TEMP 36.6; O2SAT 97
[2022-05-19 20:15] VITALS: BMI 31.9
[2022-05-20] MEDS: Benztropine Mesylate 1 MG TABLET PO ×3 (01:17→22:22)
[2022-05-20] MEDS: clonazePAM 0.5 MG TABLET PO (01:17)
[2022-05-20] MEDS: traZODone HCL 50 MG TABLET PO (01:17)
[2022-05-20] MEDS: hydrOXYzine HCL 25 MG TABLET PO ×2 (01:17→14:42)
--- NOTE | 2022-05-20 05:01 | PC.ADMIT ---
admission-this one of many inpatient psychiatric hospitalizations at [facility] for this 51 year old female. legal CV, dx: MDD, SI with psychosis. Patient was a referral from the ER after assessment was done by [facility]. nurse to nurse, collateral information obtained. Medication reconciliation and medical clearance done in the ER. No drug and alcohol issues. Presents with c/o increased AH telling patient to self harm. Reports feeling safe in hospital environment. Tolerated assessment, signed HASRH, safety tool completed and treatment plan initiated. New medical issue of UTI. Is now on antibiotic. Has had a flu shot for the season. Is not a smoker. Uses CPAP at and has notified family to bring in. Patient is Amharic speaking and an foreign language interpreter was utilized.
[2022-05-20 08:50] VITALS: BP 105/58; PULSE 56; RESP 16; O2SAT 94
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
[2022-05-20] MEDS: Gabapentin 400 MG CAPSULE 800 MG PO ×3 (09:32→22:22)
[2022-05-20] MEDS: Cholecalciferol (Vitamin D3) 25 MCG TABLET PO (09:32)
[2022-05-20] MEDS: HaloperidoL 5 MG TABLET PO ×2 (09:32→22:22)
[2022-05-20 09:41] LABS: Estimated Average Glucose 105 mg/dL; Hemoglobin A1c % 5.3 %
[2022-05-20 10:08] LABS: Alanine Aminotransferase 13 U/L (0-31); Albumin Level 3.4 g/dL (3.5-5.0); Alkaline Phosphatase 111 U/L (39-117); Anion Gap 9 (12-20); Aspartate Amino Transferase 15 U/L (5-31); Bilirubin Total 0.6 mg/dL (0.0-1.0); Blood Urea Nitrogen 13 mg/dL (9-16); Calcium 8.9 mg/dL (8.4-10.2); Carbon Dioxide 28 mmol/L (22-29); Chloride 107 mmol/L (96-108); Cholesterol 210 mg/dL; Creatinine Clr Calc Pharmacy 58.9; Estimated Glomerular Filt Rate 51; Glucose Fasting 87 mg/dL (60-99); HDL Cholesterol 46 mg/dL; LDL Cholesterol Calculated 142 mg/dl; Potassium 4.8 mmol/L (3.3-5.1); Sodium 139 mmol/L (135-145); Total Protein 5.8 g/dL (6.5-8.0); Triglycerides 112 mg/dL
[2022-05-20 10:22] LABS: Thyroid Stimulating Hormone 1.23 uIU/mL (0.32-4.0)
[2022-05-20 10:30] LABS: Folate 7.3 ng/mL (> or = 4.0); Vitamin B12 422 pg/mL (200-900)
[2022-05-20 22:16] VITALS: BP 94/58; PULSE 62; RESP 16
[2022-05-20] MEDS: Atorvastatin Calcium 10 MG TABLET PO (22:22)
[2022-05-20] MEDS: Sennosides 8.6 MG TABLET 17.2 MG PO (22:22)
[2022-05-21 09:00] VITALS: BP 102/70; PULSE 58; RESP 16; TEMP 36.6; O2SAT 95
[2022-05-21] MEDS: Gabapentin 400 MG CAPSULE 800 MG PO ×3 (09:15→20:55)
[2022-05-21] MEDS: polyethylene glycoL 3350 17 GM POWD.PACK PO (09:16)
[2022-05-21] MEDS: HaloperidoL 5 MG TABLET PO ×2 (09:16→20:55)
[2022-05-21] MEDS: Cholecalciferol (Vitamin D3) 25 MCG TABLET PO (09:16)
[2022-05-21] MEDS: Docusate Sodium 100 MG CAPSULE PO ×2 (09:16→20:55)
[2022-05-21] MEDS: Benztropine Mesylate 1 MG TABLET PO ×2 (09:16→20:55)
--- NOTE | 2022-05-21 09:43 | P.PNPSI_ITS ---
Subjective Subjective Date of Service: 05/21/22 Reason For Visit: Si Subjective Notes: Conditional Voluntary Healthcare Proxy: No Guardianship: No Medical Problems Affecting Mental Status: No Interim History: Patient was seen and discussed in rounds today. Records and labs were reviewed. She continues to be having some self-destructive urges. Eating and sleeping adequately. She is being treated for UTI. Continues to have auditory and visual hallucinations with negative connotations. No complaints or side effects. No changes were made today Medication Compliance: Yes (UTI) Side effects from medications: No Attending Groups: No Review of Systems Acute medical concerns: Yes UTI Review of Systems Review of Systems Except for urinary discomfort secondary to UTI Yes all other systems are reviewed and are negative Mental Status Exam Mental Status Exam Narrative: In today's visit she is alert, pleasant and interactive within her means. Soft- spoken speech. Moderate eye contact. Affect is constricted and subdued. Auditory and visual hallucinations present. Some command hallucinations to hurt herself. Judgment could not be assessed Diagnostics Vital Signs (24Hr): Vital Signs - 24 hr 05/20/22 22:16 05/21/22 09:00 Temperature 97.9 F Pulse Rate 62 58 Respiratory Rate 16 16 Blood Pressure 94/58 L 102/70 Pulse Oximetry 95 Oxygen Delivery Method Room Air BMI result Body Mass Index 31.9 Labs 05/19/22 19:06 05/20/22 08:46 Labs: Laboratory Results - last 48 hr 05/19/22 05/19/22 05/19/22 18:08 18:08 18:08 WBC RBC Hgb Hct MCV MCH MCHC RDW Plt Count MPV Immature Gran % (Auto) Neut % (Auto) Lymph % (Auto) [place] % (Auto) Eos % (Auto) Baso % (Auto) Lymph # (Auto) [place] # (Auto) Eos # (Auto) Baso # (Auto) Abs Immat Gran (auto) Absolute Neuts (auto) Absolute Nucleated RBC Nucleated RBC % (auto) PT INR Sodium Potassium Chloride Carbon Dioxide Anion Gap BUN Creatinine Estim Creat Clear Calc Estimated GFR Random Glucose Fasting Glucose Estimat Average Glucose Hemoglobin A1c % Calcium Magnesium Total Bilirubin AST ALT Alkaline Phosphatase Total Protein Albumin Triglycerides Cholesterol LDL Cholesterol, Calc HDL Cholesterol Lipase Vitamin B12 Folate TSH Beta HCG, Quant Urine Color Yellow Urine Appearance Cloudy Urine pH 6.0 Ur Specific [place] 1.015 Urine Protein Negative Urine Glucose (UA) Negative Urine Ketones Negative Urine Blood Small (1+) H Urine Nitrite Negative Ur Leukocyte Esterase Large (3+) H Urine RBC 3-5 H Urine WBC >50 H Ur Squamous Epith Cells 3-5 Urine Bacteria 4+ Hyaline Casts 0-2 Urine Opiates Screen Not Detected Urine Fentanyl Screen Not Detected Ur Barbiturates Screen Not Detected Ur Phencyclidine Scrn POSITIVE H Ur Amphetamines Screen Not Detected U Benzodiazepines Scrn Not Detected Urine Cocaine Screen Not Detected U Marijuana (THC) Screen Not Detected Ethyl Alcohol Influenza Type A (PCR) NEGATIVE Influenza Type B (PCR) NEGATIVE RSV RNA Qual (PCR) NEGATIVE SARS-CoV-2 RNA (RT-PCR) NEGATIVE 05/19/22 05/19/22 05/19/22 19:02 19:06 19:06 WBC 6.2 RBC 4.06 L Hgb 13.2 Hct 40.3 MCV 99.3 H MCH 32.5 MCHC 32.8 RDW 11.6 Plt Count 277 MPV 9.1 L Immature Gran % (Auto) 0.2 Neut % (Auto) 58.3 Lymph % (Auto) 33.6 [place] % (Auto) 5.5 Eos % (Auto) 1.6 Baso % (Auto) 0.8 Lymph # (Auto) 2.1 [place] # (Auto) 0.3 Eos # (Auto) 0.1 Baso # (Auto) 0.1 Abs Immat Gran (auto) 0.01 Absolute Neuts (auto) 3.6 Absolute Nucleated RBC 0.000 Nucleated RBC % (auto) 0.0 PT 11.3 INR 1.0 Sodium 139 Potassium 4.6 Chloride 105 Carbon Dioxide 26 Anion Gap 13 BUN 13 Creatinine 1.45 H Estim Creat Clear Calc 45.6 Estimated GFR 38 Random Glucose 187 H Fasting Glucose Estimat Average Glucose Hemoglobin A1c % Calcium 8.8 Magnesium 1.7 Total Bilirubin 0.6 AST 14 ALT 13 Alkaline Phosphatase 117 Total Protein 5.8 L Albumin 3.4 L Triglycerides Cholesterol LDL Cholesterol, Calc HDL Cholesterol Lipase 10 Vitamin B12 Folate TSH Beta HCG, Quant < 2 Urine Color Urine Appearance Urine pH Ur Specific [place] Urine Protein Urine Glucose (UA) Urine Ketones Urine Blood Urine Nitrite Ur Leukocyte Esterase Urine RBC Urine WBC Ur Squamous Epith Cells Urine Bacteria Hyaline Casts Urine Opiates Screen Urine Fentanyl Screen Ur Barbiturates Screen Ur Phencyclidine Scrn Ur Amphetamines Screen U Benzodiazepines Scrn Urine Cocaine Screen U Marijuana (THC) Screen Ethyl Alcohol < 10 Influenza Type A (PCR) Influenza Type B (PCR) RSV RNA Qual (PCR) SARS-CoV-2 RNA (RT-PCR) 05/20/22 05/20/22 05/20/22 08:46 08:46 08:46 WBC RBC Hgb Hct MCV MCH MCHC RDW Plt Count MPV Immature Gran % (Auto) Neut % (Auto) Lymph % (Auto) [place] % (Auto) Eos % (Auto) Baso % (Auto) Lymph # (Auto) [place] # (Auto) Eos # (Auto) Baso # (Auto) Abs Immat Gran (auto) Absolute Neuts (auto) Absolute Nucleated RBC Nucleated RBC % (auto) PT INR Sodium 139 Potassium 4.8 Chloride 107 Carbon Dioxide 28 Anion Gap 9 L BUN 13 Creatinine 1.13 Estim Creat Clear Calc 58.9 Estimated GFR 51 Random Glucose Fasting Glucose 87 Estimat Average Glucose 105 Hemoglobin A1c % 5.3 Calcium 8.9 Magnesium Total Bilirubin 0.6 AST 15 ALT 13 Alkaline Phosphatase 111 Total Protein 5.8 L Albumin 3.4 L Triglycerides 112 Cholesterol 210 LDL Cholesterol, Calc 142 HDL Cholesterol 46 Lipase Vitamin B12 422 Folate 7.3 TSH 1.23 Beta HCG, Quant Urine Color Urine Appearance Urine pH Ur Specific [place] Urine Protein Urine Glucose (UA) Urine Ketones Urine Blood Urine Nitrite Ur Leukocyte Esterase Urine RBC Urine WBC Ur Squamous Epith Cells Urine Bacteria Hyaline Casts Urine Opiates Screen Urine Fentanyl Screen Ur Barbiturates Screen Ur Phencyclidine Scrn Ur Amphetamines Screen U Benzodiazepines Scrn Urine Cocaine Screen U Marijuana (THC) Screen Ethyl Alcohol Influenza Type A (PCR) Influenza Type B (PCR) RSV RNA Qual (PCR) SARS-CoV-2 RNA (RT-PCR) Medications Medications Current Medications Acetaminophen (Acetaminophen 325 Mg Tablet) 650 mg PO Q6H PRN PRN Reason: Headache/Pain Mild Scale (1-3) Al Hydroxide/Mg Hydroxide (Magnesium Hydrox/Alum Hydrox 30 Ml Oral.Susp) 30 ml PO Q6H PRN PRN Reason: Heartburn/Nausea Albuterol Sulfate (Albuterol Sulfate 90 Mcg 8 Gm Inhaler) 2 puff INHALE RQ6H PRN PRN Reason: shortness of breath or wheezing Atorvastatin Calcium (Atorvastatin Calcium 10 Mg Tablet) 10 mg PO BEDTIME JYOTHI Last Admin: 05/20/22 22:22 Dose: 10 mg Benztropine Mesylate (Benztropine Mesylate 1 Mg Tablet) 1 mg PO BID [facility] Last Admin: 05/21/22 09:16 Dose: 1 mg Cefuroxime Axetil (Cefuroxime Axetil 250 Mg Tablet) 250 mg PO BID [facility] Last Admin: 05/21/22 09:16 Dose: 250 mg Clonazepam (Clonazepam 0.5 Mg Tablet) 0.5 mg PO BID PRN PRN Reason: Anxiety Last Admin: 05/20/22 01:17 Dose: 0.5 mg Docusate Sodium (Docusate Sodium 100 Mg Capsule) 100 mg PO BID [facility] Last Admin: 05/21/22 09:16 Dose: 100 mg Gabapentin (Gabapentin 400 Mg Capsule) 800 mg PO TID [facility] Last Admin: 05/21/22 09:15 Dose: 800 mg Haloperidol (Haloperidol 5 Mg Tablet) 5 mg PO BID [facility] Last Admin: 05/21/22 09:16 Dose: 5 mg Hydroxyzine HCl (Hydroxyzine Hcl 25 Mg Tablet) 25 mg PO Q6H PRN PRN Reason: Anxiety Last Admin: 05/20/22 14:42 Dose: 25 mg Magnesium Hydroxide (Milk Of Magnesia 30 Ml Oral.Susp) 30 ml PO DAILY PRN PRN Reason: Constipation Meclizine HCl (Meclizine Hcl 25 Mg Tablet) 25 mg PO TID PRN PRN Reason: dizziness Olanzapine (Olanzapine 5 Mg Tablet) 5 mg PO Q6H PRN PRN Reason: agitation/anxiety/psychosis Oxybutynin Chloride (Oxybutynin Chloride Er 5 Mg Tab.Er.24) 5 mg PO DAILY [facility] Last Admin: 05/21/22 09:15 Dose: 5 mg Polyethylene Glycol (Polyethylene Glycol 3350 17 Gm Powd.Pack) 17 gm PO DAILY [facility] Last Admin: 05/21/22 09:16 Dose: 17 gm Senna (Sennosides 8.6 Mg Tablet) 17.2 mg PO BEDTIME [facility] Last Admin: 05/20/22 22:22 Dose: 17.2 mg Trazodone HCl (Trazodone Hcl 50 Mg Tablet) 50 mg PO BEDTIME PRN PRN Reason: Insomnia Last Admin: 05/20/22 01:17 Dose: 50 mg Vitamin D (Cholecalciferol (Vitamin D3) 25 Mcg Tablet) 25 mcg PO DAILY [facility] Last Admin: 05/21/22 09:16 Dose: 25 mcg Allergies Allergies Allergy/AdvReac Type Severity Reaction Status Date / Time No Known Allergies Allergy Verified 05/09/22 16:08 Assessment & Plan Assessment & Plan (1) MDD (major depressive disorder), recurrent, severe, with psychosis: Status: Acute Code(s): F33.3 - Major depressive disorder, recurrent, severe with psychotic symptoms Plan Ms. Siu is a 51 year-old woman with hx of MDD with psychosis versus schizophrenia who was brought to [facility] ED via EMS after being assessed at her home by [facility] crisis team after reported finding pt with metal nail file pointing at her and reporting CAH. Pt is known to this unit and M5 through previous admission for similar presentation. Apparerntly there has not been any medication changes and pt was taking medications as prescribed. PLAN 1. Admit to M3, CV, 15 minutes checks for safety 2. Continue current medications 3. Obtain collateral information- [facility] [phone] 4. Aftercare planning. 05/23: Continue current regimen and plans Reason for contiued inpatient stay Substantial Risk for: harm to self and med/psych decompensation Time Spent With Patient Time: Total time managing care of this patient today ____ minutes.
[2022-05-21] MEDS: traMADoL HCL 50 MG TABLET PO ×2 (12:21→20:55)
[2022-05-21 18:12] VITALS: BP 106/61; PULSE 68; RESP 16; TEMP 36.6; O2SAT 95
[2022-05-21] MEDS: traZODone HCL 50 MG TABLET PO (20:55)
[2022-05-21] MEDS: Sennosides 8.6 MG TABLET 17.2 MG PO (20:55)
[2022-05-21] MEDS: Atorvastatin Calcium 10 MG TABLET PO (20:55)
[2022-05-21] MEDS: hydrOXYzine HCL 25 MG TABLET PO (20:55)
[2022-05-22 08:30] VITALS: BP 99/61; PULSE 58; RESP 16; TEMP 36.6; O2SAT 98
[2022-05-22] MEDS: Cholecalciferol (Vitamin D3) 25 MCG TABLET PO (08:41)
[2022-05-22] MEDS: Benztropine Mesylate 1 MG TABLET PO ×2 (08:41→21:06)
[2022-05-22] MEDS: Docusate Sodium 100 MG CAPSULE PO ×2 (08:42→21:06)
[2022-05-22] MEDS: Gabapentin 400 MG CAPSULE 800 MG PO ×3 (08:42→21:06)
[2022-05-22] MEDS: HaloperidoL 5 MG TABLET PO ×2 (08:42→21:07)
--- NOTE | 2022-05-22 08:59 | P.PNPSI_ITS ---
Subjective Subjective Date of Service: 05/22/22 Reason For Visit: Si Subjective Notes: Conditional Voluntary Healthcare Proxy: No Guardianship: No Medical Problems Affecting Mental Status: No Interim History: Patient was seen and discussed in rounds today. Records and labs were reviewed. She has been more visible. She is medication compliant. Eating and sleeping adequately. Still some AVH and continues to be anxious and depressed. She states that she cannot take Motrin or Tylenol for her menstrual pain. Toradol was ordered but she takes 100 mg. Toradol 100 mg q.8 hours p.r.n. ordered. No other changes were made today Medication Compliance: Yes (UTI) Side effects from medications: No Attending Groups: No Review of Systems Acute medical concerns: Yes UTI Mental Status Exam Mental Status Exam Narrative: In today's visit she is alert, pleasant and interactive within her means. Soft- spoken speech. Moderate eye contact. Affect is constricted and subdued. Auditory and visual hallucinations present. Some command hallucinations to hurt herself. Judgment could not be assessed Diagnostics Vital Signs (24Hr): Vital Signs - 24 hr 05/21/22 09:00 05/21/22 18:12 Temperature 97.9 F 97.9 F Pulse Rate 58 68 Respiratory Rate 16 16 Blood Pressure 102/70 106/61 Pulse Oximetry 95 95 Oxygen Delivery Method Room Air Room Air BMI result Body Mass Index 31.9 Labs 05/19/22 19:06 05/20/22 08:46 Labs: Laboratory Results - last 48 hr 05/20/22 05/20/22 05/20/22 08:46 08:46 08:46 Sodium 139 Potassium 4.8 Chloride 107 Carbon Dioxide 28 Anion Gap 9 L BUN 13 Creatinine 1.13 Estim Creat Clear Calc 58.9 Estimated GFR 51 Fasting Glucose 87 Estimat Average Glucose 105 Hemoglobin A1c % 5.3 Calcium 8.9 Total Bilirubin 0.6 AST 15 ALT 13 Alkaline Phosphatase 111 Total Protein 5.8 L Albumin 3.4 L Triglycerides 112 Cholesterol 210 LDL Cholesterol, Calc 142 HDL Cholesterol 46 Vitamin B12 422 Folate 7.3 TSH 1.23 Medications Medications Current Medications Acetaminophen (Acetaminophen 325 Mg Tablet) 650 mg PO Q6H PRN PRN Reason: Headache/Pain Mild Scale (1-3) Al Hydroxide/Mg Hydroxide (Magnesium Hydrox/Alum Hydrox 30 Ml Oral.Susp) 30 ml PO Q6H PRN PRN Reason: Heartburn/Nausea Albuterol Sulfate (Albuterol Sulfate 90 Mcg 8 Gm Inhaler) 2 puff INHALE RQ6H PRN PRN Reason: shortness of breath or wheezing Atorvastatin Calcium (Atorvastatin Calcium 10 Mg Tablet) 10 mg PO BEDTIME [facility] Last Admin: 05/21/22 20:55 Dose: 10 mg Benztropine Mesylate (Benztropine Mesylate 1 Mg Tablet) 1 mg PO BID [facility] Last Admin: 05/22/22 08:41 Dose: 1 mg Cefuroxime Axetil (Cefuroxime Axetil 250 Mg Tablet) 250 mg PO BID [facility] Last Admin: 05/22/22 08:42 Dose: 250 mg Clonazepam (Clonazepam 0.5 Mg Tablet) 0.5 mg PO BID PRN PRN Reason: Anxiety Last Admin: 05/20/22 01:17 Dose: 0.5 mg Docusate Sodium (Docusate Sodium 100 Mg Capsule) 100 mg PO BID [facility] Last Admin: 05/22/22 08:42 Dose: 100 mg Gabapentin (Gabapentin 400 Mg Capsule) 800 mg PO TID [facility] Last Admin: 05/22/22 08:42 Dose: 800 mg Haloperidol (Haloperidol 5 Mg Tablet) 5 mg PO BID [facility] Last Admin: 05/22/22 08:42 Dose: 5 mg Hydroxyzine HCl (Hydroxyzine Hcl 25 Mg Tablet) 25 mg PO Q6H PRN PRN Reason: Anxiety Last Admin: 05/21/22 20:55 Dose: 25 mg Magnesium Hydroxide (Milk Of Magnesia 30 Ml Oral.Susp) 30 ml PO DAILY PRN PRN Reason: Constipation Meclizine HCl (Meclizine Hcl 25 Mg Tablet) 25 mg PO TID PRN PRN Reason: dizziness Olanzapine (Olanzapine 5 Mg Tablet) 5 mg PO Q6H PRN PRN Reason: agitation/anxiety/psychosis Oxybutynin Chloride (Oxybutynin Chloride Er 5 Mg Tab.Er.24) 5 mg PO DAILY [facility] Last Admin: 05/22/22 08:42 Dose: 5 mg Polyethylene Glycol (Polyethylene Glycol 3350 17 Gm Powd.Pack) 17 gm PO DAILY [facility] Last Admin: 05/21/22 09:16 Dose: 17 gm Senna (Sennosides 8.6 Mg Tablet) 17.2 mg PO BEDTIME [facility] Last Admin: 05/21/22 20:55 Dose: 17.2 mg Tramadol HCl (Tramadol Hcl 50 Mg Tablet) 50 mg PO RQ8H PRN PRN Reason: Pain, Moderate (Pain Scale 4-6 Last Admin: 05/21/22 20:55 Dose: 50 mg Trazodone HCl (Trazodone Hcl 50 Mg Tablet) 50 mg PO BEDTIME PRN PRN Reason: Insomnia Last Admin: 05/21/22 20:55 Dose: 50 mg Vitamin D (Cholecalciferol (Vitamin D3) 25 Mcg Tablet) 25 mcg PO DAILY [facility] Last Admin: 05/22/22 08:41 Dose: 25 mcg Allergies Allergies Allergy/AdvReac Type Severity Reaction Status Date / Time No Known Allergies Allergy Verified 05/09/22 16:08 Assessment & Plan Assessment & Plan (1) MDD (major depressive disorder), recurrent, severe, with psychosis: Status: Acute Code(s): F33.3 - Major depressive disorder, recurrent, severe with psychotic symptoms Plan Ms. Siu is a 51 year-old woman with hx of MDD with psychosis versus schizophrenia who was brought to [facility] via EMS after being assessed at her home by [facility] crisis team after reported finding pt with metal nail file pointing at her and reporting CAH. Pt is known to this unit and M5 through previous admission for similar presentation. Apparerntly there has not been any medication changes and pt was taking medications as prescribed. PLAN 1. Admit to M3, CV, 15 minutes checks for safety 2. Continue current medications 3. Obtain collateral information- [facility] [phone] 4. Aftercare planning. 05/21: Continue current regimen and plans 05/22: Continue current regimen and plans. Increased Toradol to 100 mg q.8 PRN Patient educated on: medication risk/benefits Reason for contiued inpatient stay Substantial Risk for: harm to self and med/psych decompensation Time Spent With Patient Time: Total time managing care of this patient today ____ minutes.
[2022-05-22] MEDS: traMADoL HCL 50 MG TABLET 100 MG PO ×2 (09:37→17:03)
[2022-05-22] MEDS: polyethylene glycoL 3350 17 GM POWD.PACK PO (10:01)
[2022-05-22] MEDS: Atorvastatin Calcium 10 MG TABLET PO (21:06)
[2022-05-22] MEDS: Sennosides 8.6 MG TABLET 17.2 MG PO (21:06)
[2022-05-22] MEDS: traZODone HCL 50 MG TABLET PO (21:07)
[2022-05-22 21:15] VITALS: BP 98/59; PULSE 73; RESP 16; TEMP 36.5; O2SAT 94
--- NOTE | 2022-05-23 04:31 | PC.NURSE ---
0315 - pt having difficulty w/CPAP face mask, air leaking and unable to create a seal. Straps were tightened around face and straps behind head were adjusted from slipping, able to seal mask to face. No further issues.
[2022-05-23 08:30] VITALS: BP 112/70; PULSE 66; RESP 18; TEMP 36.6; O2SAT 98
[2022-05-23] MEDS: Gabapentin 400 MG CAPSULE 800 MG PO ×3 (09:10→20:28)
[2022-05-23] MEDS: Benztropine Mesylate 1 MG TABLET PO ×2 (09:11→20:28)
[2022-05-23] MEDS: HaloperidoL 5 MG TABLET PO ×2 (09:11→20:28)
[2022-05-23] MEDS: Cholecalciferol (Vitamin D3) 25 MCG TABLET PO (09:11)
[2022-05-23] MEDS: Docusate Sodium 100 MG CAPSULE PO ×2 (09:11→20:27)
--- NOTE | 2022-05-23 10:26 | HO.PSYCHPN ---
Subjective Subjective Date of Service: 05/23/22 Reason For Visit: Si Subjective Notes: Conditional Voluntary Interim History: Concern in terms of vaginal bleeding reported by nursing this morning. Pt reports blood was in urine, not vaginal nor rectal. Pt reports hx of hemorroids but states no blood from hemorroids that she has noticed. She reports less voices but these continue to be command in nature. Pt reports no plan or intent to to harm herself but still feeling tormented by AH. Pt reports voices are constant, but sometimes get worse. Per nursing, pt mostly in her room. No behavioral concerns. Review of Systems Review of Systems Except for urinary discomfort secondary to UTI Yes all other systems are reviewed and are negative Constitutional: Reports as per HPI, Reports difficulty sleeping and Reports headache(s) Eyes: Reports no additional eye complaints Reports headache(s) Cardiovascular: Denies chest pain, Denies chest pain at rest, Denies irregular heart rhythm, Denies lightheadedness and Denies dyspnea Respiratory: Denies dyspnea Gastrointestinal: Denies constipation, Denies loose stools, Denies nausea, Denies vomiting and Denies hematemesis Reports headache(s) Mental Status Exam Mental Status Exam Narrative: Appearance: wearing hospital gown, fair hyiene, in NAD behavior: cooperative Speech: clear, mild delayed in response rate, spontaneous Psychomotor: no agitation or retardation noted TP: linear TC: hearing voices, feeling overwhelmed Mood: anxious Affect: constricted, congruent SI: passive, denies any plan or intent HI: none AH: CAH telling her to hurt herself. VH: denies Delusions: paranoid delusions Insight/judgment: fair x 2. Memory/cog: alert, oriented x 3. noticeable gaps in memory, may benefit from MOCA. Diagnostics Vital Signs (24Hr): Vital Signs - 24 hr 05/22/22 21:15 05/23/22 08:30 Temperature 97.7 F 97.8 F Pulse Rate 73 66 Respiratory Rate 16 18 Blood Pressure 98/59 L 112/70 Pulse Oximetry 94 98 Oxygen Delivery Method Room Air Room Air BMI result Body Mass Index 31.9 Labs 05/19/22 19:06 05/20/22 08:46 Medications Medications Current Medications Acetaminophen (Acetaminophen 325 Mg Tablet) 650 mg PO Q6H PRN PRN Reason: Headache/Pain Mild Scale (1-3) Al Hydroxide/Mg Hydroxide (Magnesium Hydrox/Alum Hydrox 30 Ml Oral.Susp) 30 ml PO Q6H PRN PRN Reason: Heartburn/Nausea Albuterol Sulfate (Albuterol Sulfate 90 Mcg 8 Gm Inhaler) 2 puff INHALE RQ6H PRN PRN Reason: shortness of breath or wheezing Atorvastatin Calcium (Atorvastatin Calcium 10 Mg Tablet) 10 mg PO BEDTIME [facility] Last Admin: 05/22/22 21:06 Dose: 10 mg Benztropine Mesylate (Benztropine Mesylate 1 Mg Tablet) 1 mg PO BID [facility] Last Admin: 05/23/22 09:11 Dose: 1 mg Cefuroxime Axetil (Cefuroxime Axetil 250 Mg Tablet) 250 mg PO BID [facility] Last Admin: 05/23/22 09:11 Dose: 250 mg Clonazepam (Clonazepam 0.5 Mg Tablet) 0.5 mg PO BID PRN PRN Reason: Anxiety Last Admin: 05/20/22 01:17 Dose: 0.5 mg Docusate Sodium (Docusate Sodium 100 Mg Capsule) 100 mg PO BID [facility] Last Admin: 05/23/22 09:11 Dose: 100 mg Gabapentin (Gabapentin 400 Mg Capsule) 800 mg PO TID [facility] Last Admin: 05/23/22 09:10 Dose: 800 mg Haloperidol (Haloperidol 5 Mg Tablet) 5 mg PO BID [facility] Last Admin: 05/23/22 09:11 Dose: 5 mg Hydroxyzine HCl (Hydroxyzine Hcl 25 Mg Tablet) 25 mg PO Q6H PRN PRN Reason: Anxiety Last Admin: 05/21/22 20:55 Dose: 25 mg Magnesium Hydroxide (Milk Of Magnesia 30 Ml Oral.Susp) 30 ml PO DAILY PRN PRN Reason: Constipation Meclizine HCl (Meclizine Hcl 25 Mg Tablet) 25 mg PO TID PRN PRN Reason: dizziness Olanzapine (Olanzapine 5 Mg Tablet) 5 mg PO Q6H PRN PRN Reason: agitation/anxiety/psychosis Oxybutynin Chloride (Oxybutynin Chloride Er 5 Mg Tab.Er.24) 5 mg PO DAILY [facility] Last Admin: 05/23/22 09:10 Dose: 5 mg Polyethylene Glycol (Polyethylene Glycol 3350 17 Gm Powd.Pack) 17 gm PO DAILY [facility] Last Admin: 05/23/22 09:12 Dose: Not Given Senna (Sennosides 8.6 Mg Tablet) 17.2 mg PO BEDTIME [facility] Last Admin: 05/22/22 21:06 Dose: 17.2 mg Tramadol HCl (Tramadol Hcl 50 Mg Tablet) 100 mg PO RQ8H PRN PRN Reason: Pain, Moderate (Pain Scale 4-6 Last Admin: 05/22/22 17:03 Dose: 100 mg Trazodone HCl (Trazodone Hcl 50 Mg Tablet) 50 mg PO BEDTIME PRN PRN Reason: Insomnia Last Admin: 05/22/22 21:07 Dose: 50 mg Vitamin D (Cholecalciferol (Vitamin D3) 25 Mcg Tablet) 25 mcg PO DAILY [facility] Last Admin: 05/23/22 09:11 Dose: 25 mcg Allergies Allergies Allergy/AdvReac Type Severity Reaction Status Date / Time No Known Allergies Allergy Verified 05/09/22 16:08 Assessment & Plan Assessment & Plan (1) MDD (major depressive disorder), recurrent, severe, with psychosis: Status: Acute Code(s): F33.3 - Major depressive disorder, recurrent, severe with psychotic symptoms Plan Ms. Siu is a 51 year-old woman with hx of MDD with psychosis versus schizophrenia who was brought to [facility] via EMS after being assessed at her home by [facility] crisis team after reported finding pt with metal nail file pointing at her and reporting CAH. Pt is known to this unit and M5 through previous admission for similar presentation. Apparerntly there has not been any medication changes and pt was taking medications as prescribed. PLAN 1. Admit to M3, CV, 15 minutes checks for safety 2. Continue current medications 3. Obtain collateral information- [facility] [phone] 4. Aftercare planning. 05/21: Continue current regimen and plans 05/22: Continue current regimen and plans. Increased Toradol to 100 mg q.8 PRN 05/23 continue current tx. Reason for contiued inpatient stay Substantial Risk for: inability to function Time Spent With Patient Time: Total time managing care of this patient today ____ minutes.
--- NOTE | 2022-05-23 10:47 | PC.RT ---
I inspected patients home cpap unit. It appears it has some mold in the humidifier filter and also the mask is very dirty. While pt is here, she will be using the hospitals equipment and placed on a Resmed Auto-Cpap as pt does not know here settings.
[2022-05-23 20:20] VITALS: BP 111/77; PULSE 74; RESP 18; TEMP 36.6; O2SAT 96
[2022-05-23] MEDS: Sennosides 8.6 MG TABLET 17.2 MG PO (20:27)
[2022-05-23] MEDS: Atorvastatin Calcium 10 MG TABLET PO (20:27)
[2022-05-23] MEDS: traZODone HCL 50 MG TABLET PO (20:28)
[2022-05-23] MEDS: clonazePAM 0.5 MG TABLET PO (20:30)
[2022-05-23 23:40] VITALS: PULSE 74; RESP 18; O2SAT 96
[2022-05-24 08:00] VITALS: BP 121/73; PULSE 58; TEMP 36.6; O2SAT 98
[2022-05-24] MEDS: Gabapentin 400 MG CAPSULE 800 MG PO ×3 (08:29→20:20)
[2022-05-24] MEDS: Docusate Sodium 100 MG CAPSULE PO ×2 (08:31→20:20)
[2022-05-24] MEDS: HaloperidoL 5 MG TABLET PO ×2 (08:31→20:20)
[2022-05-24] MEDS: Cholecalciferol (Vitamin D3) 25 MCG TABLET PO (08:31)
[2022-05-24] MEDS: Benztropine Mesylate 1 MG TABLET PO ×2 (08:32→20:20)
[2022-05-24] MEDS: traMADoL HCL 50 MG TABLET 100 MG PO ×2 (08:38→16:50)
[2022-05-24] MEDS: LORazepam 1 MG TABLET PO ×2 (10:30→20:20)
--- NOTE | 2022-05-24 11:15 | P.PNPSI_ITS ---
Subjective Subjective Date of Service: 05/24/22 Reason For Visit: Si Subjective Notes: Conditional Voluntary Interim History: Pt reports hearing voices on and off still. She reports intermittent suicidal ideation but denies any plan or intent. She slept through the night. Per nursing, she spent most of the day in bed but was more visible in the afternoon. No behavioral concerns Medication Compliance: Yes Review of Systems Review of Systems Except for urinary discomfort secondary to UTI Yes all other systems are reviewed and are negative Constitutional: Reports as per HPI, Reports difficulty sleeping and Reports headache(s) Eyes: Reports no additional eye complaints Reports headache(s) Cardiovascular: Denies chest pain, Denies chest pain at rest, Denies irregular heart rhythm, Denies lightheadedness and Denies dyspnea Respiratory: Denies dyspnea Gastrointestinal: Denies constipation, Denies loose stools, Denies nausea, De nies vomiting and Denies hematemesis Reports headache(s) Mental Status Exam Mental Status Exam Narrative: Appearance: wearing hospital gown, fair hyiene, in NAD behavior: cooperative Speech: clear, mild delayed in response rate, spontaneous Psychomotor: no agitation or retardation noted TP: linear TC: hearing voices, feeling overwhelmed Mood: anxious Affect: constricted, congruent SI: passive, denies any plan or intent HI: none AH: CAH telling her to hurt herself. VH: denies Delusions: paranoid delusions Insight/judgment: fair x 2. Memory/cog: alert, oriented x 3. noticeable gaps in memory, may benefit from MOCA. Diagnostics Vital Signs (24Hr): Vital Signs - 24 hr 05/26/22 08:40 05/26/22 20:45 Temperature 97.6 F 97.5 F Pulse Rate 63 68 Respiratory Rate 18 18 Blood Pressure 109/62 109/53 L Pulse Oximetry 100 93 Oxygen Delivery Method Room Air Room Air BMI result Body Mass Index 31.9 Labs 05/19/22 19:06 05/20/22 08:46 Medications Medications Current Medications Acetaminophen (Acetaminophen 325 Mg Tablet) 650 mg PO Q6H PRN PRN Reason: Headache/Pain Mild Scale (1-3) Al Hydroxide/Mg Hydroxide (Magnesium Hydrox/Alum Hydrox 30 Ml Oral.Susp) 30 ml PO Q6H PRN PRN Reason: Heartburn/Nausea Albuterol Sulfate (Albuterol Sulfate 90 Mcg 8 Gm Inhaler) 2 puff INHALE RQ6H PRN PRN Reason: shortness of breath or wheezing Atorvastatin Calcium (Atorvastatin Calcium 10 Mg Tablet) 10 mg PO BEDTIME [facility] Last Admin: 05/26/22 21:15 Dose: 10 mg Benztropine Mesylate (Benztropine Mesylate 1 Mg Tablet) 1 mg PO BID [facility] Last Admin: 05/26/22 21:15 Dose: 1 mg Cefuroxime Axetil (Cefuroxime Axetil 250 Mg Tablet) 250 mg PO BID [facility] Last Admin: 05/26/22 21:15 Dose: 250 mg Docusate Sodium (Docusate Sodium 100 Mg Capsule) 100 mg PO BID [facility] Last Admin: 05/26/22 21:15 Dose: 100 mg Gabapentin (Gabapentin 400 Mg Capsule) 800 mg PO TID [facility] Last Admin: 05/26/22 21:15 Dose: 800 mg Haloperidol (Haloperidol 5 Mg Tablet) 5 mg PO BID [facility] Last Admin: 05/26/22 21:15 Dose: 5 mg Hydroxyzine HCl (Hydroxyzine Hcl 25 Mg Tablet) 25 mg PO Q6H PRN PRN Reason: Anxiety Last Admin: 05/21/22 20:55 Dose: 25 mg Lorazepam (Lorazepam 1 Mg Tablet) 1 mg PO BID [facility] Last Admin: 05/26/22 21:15 Dose: 1 mg Magnesium Hydroxide (Milk Of Magnesia 30 Ml Oral.Susp) 30 ml PO DAILY PRN PRN Reason: Constipation Last Admin: 05/25/22 09:07 Dose: 30 ml Meclizine HCl (Meclizine Hcl 25 Mg Tablet) 25 mg PO TID PRN PRN Reason: dizziness Olanzapine (Olanzapine 5 Mg Tablet) 5 mg PO Q6H PRN PRN Reason: agitation/anxiety/psychosis Last Admin: 05/24/22 13:18 Dose: 5 mg Oxybutynin Chloride (Oxybutynin Chloride Er 5 Mg Tab.Er.24) 5 mg PO DAILY [facility] Last Admin: 05/26/22 08:59 Dose: 5 mg Polyethylene Glycol (Polyethylene Glycol 3350 17 Gm Powd.Pack) 17 gm PO BID [facility] Last Admin: 05/26/22 21:18 Dose: 17 gm Pramoxine HCl (Pramoxine Hcl 1 % Rectal Foam 15 Gm) 1 appl [place] BID [facility] Last Admin: 05/27/22 00:21 Dose: Not Given Senna (Sennosides 8.6 Mg Tablet) 17.2 mg PO BEDTIME [facility] Last Admin: 05/26/22 21:15 Dose: 17.2 mg Tramadol HCl (Tramadol Hcl 50 Mg Tablet) 100 mg PO RQ8H PRN PRN Reason: Pain, Moderate (Pain Scale 4-6 Last Admin: 05/26/22 14:39 Dose: 100 mg Trazodone HCl (Trazodone Hcl 50 Mg Tablet) 50 mg PO BEDTIME PRN PRN Reason: Insomnia Last Admin: 05/26/22 21:15 Dose: 50 mg Vitamin D (Cholecalciferol (Vitamin D3) 25 Mcg Tablet) 25 mcg PO DAILY [facility] Last Admin: 05/26/22 09:01 Dose: 25 mcg Allergies Allergies Allergy/AdvReac Type Severity Reaction Status Date / Time No Known Allergies Allergy Verified 05/09/22 16:08 Assessment & Plan Assessment & Plan (1) MDD (major depressive disorder), recurrent, severe, with psychosis: Status: Acute Code(s): F33.3 - Major depressive disorder, recurrent, severe with psychotic symptoms Plan Ms. Siu is a 51 year-old woman with hx of MDD with psychosis versus schizophrenia who was brought to [facility] via EMS after being assessed at her home by [facility] crisis team after reported finding pt with metal nail file pointing at her and reporting CAH. Pt is known to this unit and M5 through previous admission for similar presentation. Apparerntly there has not been any medication changes and pt was taking medications as prescribed. PLAN 1. Admit to M3, CV, 15 minutes checks for safety 2. Continue current medications 3. Obtain collateral information- [facility] [phone] 4. Aftercare planning. 05/21: Continue current regimen and plans 05/22: Continue current regimen and plans. Increased Toradol to 100 mg q.8 PRN 05/23 continue current tx. 05/24 continue tx. Reason for contiued inpatient stay Substantial Risk for: inability to function Time Spent With Patient Time: Total time managing care of this patient today ____ minutes.
[2022-05-24] MEDS: OLANZapine 5 MG TABLET PO (13:18)
[2022-05-24 20:20] VITALS: BP 100/69; PULSE 77; RESP 16; TEMP 36.4; O2SAT 97
[2022-05-24] MEDS: Atorvastatin Calcium 10 MG TABLET PO (20:20)
[2022-05-24] MEDS: traZODone HCL 50 MG TABLET PO (20:20)
[2022-05-24] MEDS: Sennosides 8.6 MG TABLET 17.2 MG PO (20:20)
[2022-05-25] MEDS: Gabapentin 400 MG CAPSULE 800 MG PO ×3 (09:05→20:35)
[2022-05-25] MEDS: polyethylene glycoL 3350 17 GM POWD.PACK PO ×2 (09:05→20:35)
[2022-05-25] MEDS: Benztropine Mesylate 1 MG TABLET PO ×2 (09:05→20:35)
[2022-05-25] MEDS: Cholecalciferol (Vitamin D3) 25 MCG TABLET PO (09:06)
[2022-05-25] MEDS: HaloperidoL 5 MG TABLET PO ×2 (09:06→20:36)
[2022-05-25] MEDS: traMADoL HCL 50 MG TABLET 100 MG PO ×2 (09:06→20:35)
[2022-05-25] MEDS: Docusate Sodium 100 MG CAPSULE PO ×2 (09:06→20:36)
[2022-05-25] MEDS: LORazepam 1 MG TABLET PO ×2 (09:06→20:35)
[2022-05-25] MEDS: Milk of Magnesia 30 ML ORAL.SUSP PO (09:07)
[2022-05-25 09:36] VITALS: BP 113/53; PULSE 94; RESP 16; TEMP 36.2; O2SAT 94
--- NOTE | 2022-05-25 10:17 | P.PNPSI_ITS ---
Subjective Subjective Date of Service: 05/25/22 Reason For Visit: Si Subjective Notes: Conditional Voluntary Interim History: Pt voices are slightly less. She continues report intermittent suicidal ideation but denies any plan or intent. She slept through the night. Per nursing, she spent most of the day in bed but was more visible in the afternoon. No behavioral concerns. She reports feeling less anxious. Medication Compliance: Yes Review of Systems Review of Systems Except for urinary discomfort secondary to UTI Yes all other systems are reviewed and are negative Constitutional: Reports as per HPI, Reports difficulty sleeping and Reports headache(s) Eyes: Reports no additional eye complaints Reports headache(s) Cardiovascular: Denies chest pain, Denies chest pain at rest, Denies irregular heart rhythm, Denies lightheadedness and Denies dyspnea Respiratory: Denies dyspnea Gastrointestinal: Denies constipation, Denies loose stools, Denies nausea, Denies vomiting and Denies hematemesis Reports headache(s) Mental Status Exam Mental Status Exam Narrative: Appearance: wearing hospital gown, fair hyiene, in NAD behavior: cooperative Speech: clear, mild delayed in response rate, spontaneous Psychomotor: no agitation or retardation noted TP: linear TC: hearing voices, feeling overwhelmed Mood: anxious Affect: constricted, congruent SI: passive, denies any plan or intent HI: none AH: CAH telling her to hurt herself. VH: denies Delusions: paranoid delusions Insight/judgment: fair x 2. Memory/cog: alert, oriented x 3. noticeable gaps in memory, may benefit from MOCA. Diagnostics Vital Signs (24Hr): Vital Signs - 24 hr 05/26/22 08:40 05/26/22 20:45 Temperature 97.6 F 97.5 F Pulse Rate 63 68 Respiratory Rate 18 18 Blood Pressure 109/62 109/53 L Pulse Oximetry 100 93 Oxygen Delivery Method Room Air Room Air BMI result Body Mass Index 31.9 Labs 05/19/22 19:06 05/20/22 08:46 Medications Medications Current Medications Acetaminophen (Acetaminophen 325 Mg Tablet) 650 mg PO Q6H PRN PRN Reason: Headache/Pain Mild Scale (1-3) Al Hydroxide/Mg Hydroxide (Magnesium Hydrox/Alum Hydrox 30 Ml Oral.Susp) 30 ml PO Q6H PRN PRN Reason: Heartburn/Nausea Albuterol Sulfate (Albuterol Sulfate 90 Mcg 8 Gm Inhaler) 2 puff INHALE RQ6H PRN PRN Reason: shortness of breath or wheezing Atorvastatin Calcium (Atorvastatin Calcium 10 Mg Tablet) 10 mg PO BEDTIME [facility] Last Admin: 05/26/22 21:15 Dose: 10 mg Benztropine Mesylate (Benztropine Mesylate 1 Mg Tablet) 1 mg PO BID [facility] Last Admin: 05/26/22 21:15 Dose: 1 mg Cefuroxime Axetil (Cefuroxime Axetil 250 Mg Tablet) 250 mg PO BID [facility] Last Admin: 05/26/22 21:15 Dose: 250 mg Docusate Sodium (Docusate Sodium 100 Mg Capsule) 100 mg PO BID [facility] Last Admin: 05/26/22 21:15 Dose: 100 mg Gabapentin (Gabapentin 400 Mg Capsule) 800 mg PO TID [facility] Last Admin: 05/26/22 21:15 Dose: 800 mg Haloperidol (Haloperidol 5 Mg Tablet) 5 mg PO BID [facility] Last Admin: 05/26/22 21:15 Dose: 5 mg Hydroxyzine HCl (Hydroxyzine Hcl 25 Mg Tablet) 25 mg PO Q6H PRN PRN Reason: Anxiety Last Admin: 05/21/22 20:55 Dose: 25 mg Lorazepam (Lorazepam 1 Mg Tablet) 1 mg PO BID [facility] Last Admin: 05/26/22 21:15 Dose: 1 mg Magnesium Hydroxide (Milk Of Magnesia 30 Ml Oral.Susp) 30 ml PO DAILY PRN PRN Reason: Constipation Last Admin: 05/25/22 09:07 Dose: 30 ml Meclizine HCl (Meclizine Hcl 25 Mg Tablet) 25 mg PO TID PRN PRN Reason: dizziness Olanzapine (Olanzapine 5 Mg Tablet) 5 mg PO Q6H PRN PRN Reason: agitation/anxiety/psychosis Last Admin: 05/24/22 13:18 Dose: 5 mg Oxybutynin Chloride (Oxybutynin Chloride Er 5 Mg Tab.Er.24) 5 mg PO DAILY [facility] Last Admin: 05/26/22 08:59 Dose: 5 mg Polyethylene Glycol (Polyethylene Glycol 3350 17 Gm Powd.Pack) 17 gm PO BID [facility] Last Admin: 05/26/22 21:18 Dose: 17 gm Pramoxine HCl (Pramoxine Hcl 1 % Rectal Foam 15 Gm) 1 appl [place] BID [facility] Last Admin: 05/27/22 00:21 Dose: Not Given Senna (Sennosides 8.6 Mg Tablet) 17.2 mg PO BEDTIME [facility] Last Admin: 05/26/22 21:15 Dose: 17.2 mg Tramadol HCl (Tramadol Hcl 50 Mg Tablet) 100 mg PO RQ8H PRN PRN Reason: Pain, Moderate (Pain Scale 4-6 Last Admin: 05/26/22 14:39 Dose: 100 mg Trazodone HCl (Trazodone Hcl 50 Mg Tablet) 50 mg PO BEDTIME PRN PRN Reason: Insomnia Last Admin: 05/26/22 21:15 Dose: 50 mg Vitamin D (Cholecalciferol (Vitamin D3) 25 Mcg Tablet) 25 mcg PO DAILY [facility] Last Admin: 05/26/22 09:01 Dose: 25 mcg Allergies Allergies Allergy/AdvReac Type Severity Reaction Status Date / Time No Known Allergies Allergy Verified 05/09/22 16:08 Assessment & Plan Assessment & Plan (1) MDD (major depressive disorder), recurrent, severe, with psychosis: Status: Acute Code(s): F33.3 - Major depressive disorder, recurrent, severe with psychotic symptoms Plan Ms. Siu is a 51 year-old woman with hx of MDD with psychosis versus schizophrenia who was brought to [facility] via EMS after being assessed at her home by [facility] crisis team after reported finding pt with metal nail file pointing at her and reporting CAH. Pt is known to this unit and M5 through previous admission for similar presentation. Apparerntly there has not been any medication changes and pt was taking medications as prescribed. PLAN 1. Admit to M3, CV, 15 minutes checks for safety 2. Continue current medications 3. Obtain collateral information- [facility] [phone] 4. Aftercare planning. 05/21: Continue current regimen and plans 05/22: Continue current regimen and plans. Increased Toradol to 100 mg q.8 PRN 05/23 continue current tx. 05/24 continue tx. 05/25 continue tx. Reason for contiued inpatient stay Substantial Risk for: inability to function Time Spent With Patient Time: Total time managing care of this patient today ____ minutes.
[2022-05-25 20:20] VITALS: BP 106/61; PULSE 86; RESP 18; TEMP 36.2; O2SAT 96
[2022-05-25] MEDS: Sennosides 8.6 MG TABLET 17.2 MG PO (20:35)
[2022-05-25] MEDS: Atorvastatin Calcium 10 MG TABLET PO (20:36)
[2022-05-25] MEDS: traZODone HCL 50 MG TABLET PO (20:36)
[2022-05-26 08:40] VITALS: BP 109/62; PULSE 63; RESP 18; TEMP 36.4; O2SAT 100
[2022-05-26] MEDS: LORazepam 1 MG TABLET PO ×2 (09:00→21:15)
[2022-05-26] MEDS: Benztropine Mesylate 1 MG TABLET PO ×2 (09:01→21:15)
[2022-05-26] MEDS: Cholecalciferol (Vitamin D3) 25 MCG TABLET PO (09:01)
[2022-05-26] MEDS: Gabapentin 400 MG CAPSULE 800 MG PO ×3 (09:01→21:15)
[2022-05-26] MEDS: Docusate Sodium 100 MG CAPSULE PO ×2 (09:01→21:15)
[2022-05-26] MEDS: HaloperidoL 5 MG TABLET PO ×2 (09:01→21:15)
[2022-05-26] MEDS: polyethylene glycoL 3350 17 GM POWD.PACK PO ×2 (09:10→21:18)
[2022-05-26] MEDS: Pramoxine HCl 1 % Rectal Foam 15 GM 1 APPL PR (12:15)
--- NOTE | 2022-05-26 14:26 | HO.PSYCHPN ---
Subjective Subjective Date of Service: 05/26/22 Reason For Visit: Si Interim History: Pt reports she is feeling slightly better. She still reports hearing voices. She denies SI/HI. She has visible during lunch then went to her bedroom. Review of Systems Review of Systems Except for urinary discomfort secondary to UTI Yes all other systems are reviewed and are negative Constitutional: Reports as per HPI, Reports difficulty sleeping and Reports headache(s) Eyes: Reports no additional eye complaints Reports headache(s) Cardiovascular: Denies chest pain, Denies chest pain at rest, Denies irregular heart rhythm, Denies lightheadedness and Denies dyspnea Respiratory: Denies dyspnea Gastrointestinal: Denies constipation, Denies loose stools, Denies nausea, Denies vomiting and Denies hematemesis Reports headache(s) Mental Status Exam Mental Status Exam Narrative: Appearance: wearing hospital gown, fair hyiene, in NAD behavior: cooperative Speech: clear, mild delayed in response rate, spontaneous Psychomotor: no agitation or retardation noted TP: linear TC: hearing voices, feeling overwhelmed Mood: anxious Affect: constricted, congruent SI: passive, denies any plan or intent HI: none AH: CAH telling her to hurt herself. VH: denies Delusions: paranoid delusions Insight/judgment: fair x 2. Memory/cog: alert, oriented x 3. noticeable gaps in memory, may benefit from MOCA. Diagnostics Vital Signs (24Hr): Vital Signs - 24 hr 05/26/22 08:40 05/26/22 20:45 Temperature 97.6 F 97.5 F Pulse Rate 63 68 Respiratory Rate 18 18 Blood Pressure 109/62 109/53 L Pulse Oximetry 100 93 Oxygen Delivery Method Room Air Room Air BMI result Body Mass Index 31.9 Labs 05/19/22 19:06 05/20/22 08:46 Medications Medications Current Medications Acetaminophen (Acetaminophen 325 Mg Tablet) 650 mg PO Q6H PRN PRN Reason: Headache/Pain Mild Scale (1-3) Al Hydroxide/Mg Hydroxide (Magnesium Hydrox/Alum Hydrox 30 Ml Oral.Susp) 30 ml PO Q6H PRN PRN Reason: Heartburn/Nausea Albuterol Sulfate (Albuterol Sulfate 90 Mcg 8 Gm Inhaler) 2 puff INHALE RQ6H PRN PRN Reason: shortness of breath or wheezing Atorvastatin Calcium (Atorvastatin Calcium 10 Mg Tablet) 10 mg PO BEDTIME [facility] Last Admin: 05/26/22 21:15 Dose: 10 mg Benztropine Mesylate (Benztropine Mesylate 1 Mg Tablet) 1 mg PO BID [facility] Last Admin: 05/26/22 21:15 Dose: 1 mg Cefuroxime Axetil (Cefuroxime Axetil 250 Mg Tablet) 250 mg PO BID [facility] Last Admin: 05/26/22 21:15 Dose: 250 mg Docusate Sodium (Docusate Sodium 100 Mg Capsule) 100 mg PO BID [facility] Last Admin: 05/26/22 21:15 Dose: 100 mg Gabapentin (Gabapentin 400 Mg Capsule) 800 mg PO TID [facility] Last Admin: 05/26/22 21:15 Dose: 800 mg Haloperidol (Haloperidol 5 Mg Tablet) 5 mg PO BID [facility] Last Admin: 05/26/22 21:15 Dose: 5 mg Hydroxyzine HCl (Hydroxyzine Hcl 25 Mg Tablet) 25 mg PO Q6H PRN PRN Reason: Anxiety Last Admin: 05/21/22 20:55 Dose: 25 mg Lorazepam (Lorazepam 1 Mg Tablet) 1 mg PO BID [facility] Last Admin: 05/26/22 21:15 Dose: 1 mg Magnesium Hydroxide (Milk Of Magnesia 30 Ml Oral.Susp) 30 ml PO DAILY PRN PRN Reason: Constipation Last Admin: 05/25/22 09:07 Dose: 30 ml Meclizine HCl (Meclizine Hcl 25 Mg Tablet) 25 mg PO TID PRN PRN Reason: dizziness Olanzapine (Olanzapine 5 Mg Tablet) 5 mg PO Q6H PRN PRN Reason: agitation/anxiety/psychosis Last Admin: 05/24/22 13:18 Dose: 5 mg Oxybutynin Chloride (Oxybutynin Chloride Er 5 Mg Tab.Er.24) 5 mg PO DAILY [facility] Last Admin: 05/26/22 08:59 Dose: 5 mg Polyethylene Glycol (Polyethylene Glycol 3350 17 Gm Powd.Pack) 17 gm PO BID [facility] Last Admin: 05/26/22 21:18 Dose: 17 gm Pramoxine HCl (Pramoxine Hcl 1 % Rectal Foam 15 Gm) 1 appl [place] BID [facility] Last Admin: 05/27/22 00:21 Dose: Not Given Senna (Sennosides 8.6 Mg Tablet) 17.2 mg PO BEDTIME [facility] Last Admin: 05/26/22 21:15 Dose: 17.2 mg Tramadol HCl (Tramadol Hcl 50 Mg Tablet) 100 mg PO RQ8H PRN PRN Reason: Pain, Moderate (Pain Scale 4-6 Last Admin: 05/26/22 14:39 Dose: 100 mg Trazodone HCl (Trazodone Hcl 50 Mg Tablet) 50 mg PO BEDTIME PRN PRN Reason: Insomnia Last Admin: 05/26/22 21:15 Dose: 50 mg Vitamin D (Cholecalciferol (Vitamin D3) 25 Mcg Tablet) 25 mcg PO DAILY [facility] Last Admin: 05/26/22 09:01 Dose: 25 mcg Allergies Allergies Allergy/AdvReac Type Severity Reaction Status Date / Time No Known Allergies Allergy Verified 05/09/22 16:08 Assessment & Plan Assessment & Plan (1) MDD (major depressive disorder), recurrent, severe, with psychosis: Status: Acute Code(s): F33.3 - Major depressive disorder, recurrent, severe with psychotic symptoms Plan Ms. Siu is a 51 year-old woman with hx of MDD with psychosis versus schizophrenia who was brought to [facility] via EMS after being assessed at her home by [facility] crisis team after reported finding pt with metal nail file pointing at her and reporting CAH. Pt is known to this unit and M5 through previous admission for similar presentation. Apparerntly there has not been any medication changes and pt was taking medications as prescribed. PLAN 1. Admit to M3, CV, 15 minutes checks for safety 2. Continue current medications 3. Obtain collateral information- [facility] [phone] 4. Aftercare planning. 05/21: Continue current regimen and plans 05/22: Continue current regimen and plans. Increased Toradol to 100 mg q.8 PRN 05/23 continue current tx. 05/24 continue tx. 05/25 continue tx. 05/26 continue tx. Reason for contiued inpatient stay Substantial Risk for: inability to function Time Spent With Patient Time: Total time managing care of this patient today ____ minutes.
[2022-05-26] MEDS: traMADoL HCL 50 MG TABLET 100 MG PO (14:39)
[2022-05-26 20:45] VITALS: BP 109/53; PULSE 68; RESP 18; TEMP 36.4; O2SAT 93
[2022-05-26] MEDS: Atorvastatin Calcium 10 MG TABLET PO (21:15)
[2022-05-26] MEDS: Sennosides 8.6 MG TABLET 17.2 MG PO (21:15)
[2022-05-26] MEDS: traZODone HCL 50 MG TABLET PO (21:15)
[2022-05-27 08:50] VITALS: BP 118/69; PULSE 89; RESP 18; TEMP 36.7; O2SAT 97
[2022-05-27] MEDS: polyethylene glycoL 3350 17 GM POWD.PACK PO (08:59)
[2022-05-27] MEDS: Docusate Sodium 100 MG CAPSULE PO ×2 (09:00→21:07)
[2022-05-27] MEDS: Gabapentin 400 MG CAPSULE 800 MG PO ×3 (09:00→21:08)
[2022-05-27] MEDS: Benztropine Mesylate 1 MG TABLET PO ×2 (09:01→21:09)
[2022-05-27] MEDS: HaloperidoL 5 MG TABLET PO ×2 (09:01→21:09)
[2022-05-27] MEDS: LORazepam 1 MG TABLET PO ×2 (09:01→21:09)
[2022-05-27] MEDS: Cholecalciferol (Vitamin D3) 25 MCG TABLET PO (09:02)
--- NOTE | 2022-05-27 10:51 | HO.PSYCHPN ---
Subjective Subjective Date of Service: 05/27/22 Reason For Visit: Si Subjective Notes: Conditional Voluntary Interim History: Pt mostly in her room. She reports today not feeling so well. She continues to report hearing voices telling her to harm herself. She reports sleeping and eating well. She denies any plan or intent to harm herself. She reports feeling less anxious. Review of Systems Review of Systems Except for urinary discomfort secondary to UTI Yes all other systems are reviewed and are negative Constitutional: Reports as per HPI, Reports difficulty sleeping and Reports headache(s) Eyes: Reports no additional eye complaints Reports headache(s) Cardiovascular: Denies chest pain, Denies chest pain at rest, Denies irregular heart rhythm, Denies lightheadedness and Denies dyspnea Respiratory: Denies dyspnea Gastrointestinal: Denies constipation, Denies loose stools, Denies nausea, Denies vomiting and Denies hematemesis Reports headache(s) Mental Status Exam Mental Status Exam Narrative: Appearance: wearing hospital gown, fair hyiene, in NAD behavior: cooperative Speech: clear, mild delayed in response rate, spontaneous Psychomotor: no agitation or retardation noted TP: linear TC: hearing voices, feeling overwhelmed Mood: anxious Affect: constricted, congruent SI: passive, denies any plan or intent HI: none AH: CAH telling her to hurt herself. VH: denies Delusions: paranoid delusions Insight/judgment: fair x 2. Memory/cog: alert, oriented x 3. noticeable gaps in memory, may benefit from MOCA. Diagnostics Vital Signs (24Hr): Vital Signs - 24 hr 05/27/22 21:05 05/28/22 08:55 Temperature 97.9 F 98.0 F Pulse Rate 73 62 Respiratory Rate 16 18 Blood Pressure 109/66 109/70 Pulse Oximetry 95 97 Oxygen Delivery Method Room Air Room Air BMI result Body Mass Index 31.9 Labs 05/19/22 19:06 05/20/22 08:46 Medications Medications Current Medications Acetaminophen (Acetaminophen 325 Mg Tablet) 650 mg PO Q6H PRN PRN Reason: Headache/Pain Mild Scale (1-3) Al Hydroxide/Mg Hydroxide (Magnesium Hydrox/Alum Hydrox 30 Ml Oral.Susp) 30 ml PO Q6H PRN PRN Reason: Heartburn/Nausea Albuterol Sulfate (Albuterol Sulfate 90 Mcg 8 Gm Inhaler) 2 puff INHALE RQ6H PRN PRN Reason: shortness of breath or wheezing Atorvastatin Calcium (Atorvastatin Calcium 10 Mg Tablet) 10 mg PO BEDTIME [facility] Last Admin: 05/27/22 21:09 Dose: 10 mg Benztropine Mesylate (Benztropine Mesylate 1 Mg Tablet) 1 mg PO BID [facility] Last Admin: 05/28/22 08:57 Dose: 1 mg Cefuroxime Axetil (Cefuroxime Axetil 250 Mg Tablet) 250 mg PO BID [facility] Last Admin: 05/28/22 08:57 Dose: 250 mg Docusate Sodium (Docusate Sodium 100 Mg Capsule) 100 mg PO BID [facility] Last Admin: 05/28/22 08:57 Dose: 100 mg Gabapentin (Gabapentin 400 Mg Capsule) 800 mg PO TID [facility] Last Admin: 05/28/22 08:57 Dose: 800 mg Haloperidol (Haloperidol 5 Mg Tablet) 5 mg PO BID [facility] Last Admin: 05/28/22 08:57 Dose: 5 mg Hydroxyzine HCl (Hydroxyzine Hcl 25 Mg Tablet) 25 mg PO Q6H PRN PRN Reason: Anxiety Last Admin: 05/21/22 20:55 Dose: 25 mg Lactulose (Lactulose 20 Gm/30 Ml Solution) 10 gm PO DAILY [facility] Last Admin: 05/28/22 08:58 Dose: 10 gm Lorazepam (Lorazepam 1 Mg Tablet) 1 mg PO BID [facility] Last Admin: 05/28/22 08:57 Dose: 1 mg Magnesium Hydroxide (Milk Of Magnesia 30 Ml Oral.Susp) 30 ml PO DAILY PRN PRN Reason: Constipation Last Admin: 05/27/22 13:26 Dose: 30 ml Meclizine HCl (Meclizine Hcl 25 Mg Tablet) 25 mg PO TID PRN PRN Reason: dizziness Olanzapine (Olanzapine 5 Mg Tablet) 5 mg PO Q6H PRN PRN Reason: agitation/anxiety/psychosis Last Admin: 05/27/22 13:30 Dose: 5 mg Oxybutynin Chloride (Oxybutynin Chloride Er 5 Mg Tab.Er.24) 5 mg PO DAILY [facility] Last Admin: 05/28/22 08:57 Dose: 5 mg Polyethylene Glycol (Polyethylene Glycol 3350 17 Gm Powd.Pack) 17 gm PO BID [facility] Last Admin: 05/28/22 08:58 Dose: 17 gm Pramoxine HCl (Pramoxine Hcl 1 % Rectal Foam 15 Gm) 1 appl [place] BID [facility] Last Admin: 05/27/22 21:07 Dose: 1 appl Senna (Sennosides 8.6 Mg Tablet) 17.2 mg PO BEDTIME [facility] Last Admin: 05/27/22 21:08 Dose: 17.2 mg Tramadol HCl (Tramadol Hcl 50 Mg Tablet) 100 mg PO Q8H PRN PRN Reason: Pain, Moderate (Pain Scale 4-6 Last Admin: 05/27/22 15:52 Dose: 100 mg Trazodone HCl (Trazodone Hcl 50 Mg Tablet) 50 mg PO BEDTIME PRN PRN Reason: Insomnia Last Admin: 05/26/22 21:15 Dose: 50 mg Vitamin D (Cholecalciferol (Vitamin D3) 25 Mcg Tablet) 25 mcg PO DAILY [facility] Last Admin: 05/28/22 08:57 Dose: 25 mcg Allergies Allergies Allergy/AdvReac Type Severity Reaction Status Date / Time No Known Allergies Allergy Verified 05/09/22 16:08 Assessment & Plan Assessment & Plan (1) MDD (major depressive disorder), recurrent, severe, with psychosis: Status: Acute Code(s): F33.3 - Major depressive disorder, recurrent, severe with psychotic symptoms Plan Ms. Siu is a 51 year-old woman with hx of MDD with psychosis versus schizophrenia who was brought to [facility] ED via EMS after being assessed at her home by [facility] crisis team after reported finding pt with metal nail file pointing at her and reporting CAH. Pt is known to this unit and M5 through previous admission for similar presentation. Apparerntly there has not been any medication changes and pt was taking medications as prescribed. PLAN 1. Admit to M3, CV, 15 minutes checks for safety 2. Continue current medications 3. Obtain collateral information- [facility] [phone] 4. Aftercare planning. 05/21: Continue current regimen and plans 05/22: Continue current regimen and plans. Increased Toradol to 100 mg q.8 PRN 05/23 continue current tx. 05/24 continue tx. 05/25 continue tx. 05/26 continue tx. 05/27 continue tx. Reason for contiued inpatient stay Substantial Risk for: inability to function Time Spent With Patient Time: Total time managing care of this patient today ____ minutes.
[2022-05-27] MEDS: Pramoxine HCl 1 % Rectal Foam 15 GM 1 APPL PR ×2 (13:26→21:07)
[2022-05-27] MEDS: Milk of Magnesia 30 ML ORAL.SUSP PO (13:26)
[2022-05-27] MEDS: OLANZapine 5 MG TABLET PO (13:30)
[2022-05-27] MEDS: traMADoL HCL 50 MG TABLET 100 MG PO (15:52)
[2022-05-27 21:05] VITALS: BP 109/66; PULSE 73; RESP 16; TEMP 36.6; O2SAT 95
[2022-05-27] MEDS: Sennosides 8.6 MG TABLET 17.2 MG PO (21:08)
[2022-05-27] MEDS: Atorvastatin Calcium 10 MG TABLET PO (21:09)
[2022-05-27] MEDS: Lactulose 20 GM/30 ML SOLUTION 10 GM PO (21:10)
[2022-05-28 08:55] VITALS: BP 109/70; PULSE 62; RESP 18; TEMP 36.7; O2SAT 97
[2022-05-28] MEDS: LORazepam 1 MG TABLET PO ×2 (08:57→21:00)
[2022-05-28] MEDS: Gabapentin 400 MG CAPSULE 800 MG PO ×3 (08:57→21:00)
[2022-05-28] MEDS: Benztropine Mesylate 1 MG TABLET PO ×2 (08:57→21:00)
[2022-05-28] MEDS: Docusate Sodium 100 MG CAPSULE PO ×2 (08:57→21:00)
[2022-05-28] MEDS: HaloperidoL 5 MG TABLET PO ×2 (08:57→21:00)
[2022-05-28] MEDS: Cholecalciferol (Vitamin D3) 25 MCG TABLET PO (08:57)
[2022-05-28] MEDS: Lactulose 20 GM/30 ML SOLUTION 10 GM PO (08:58)
[2022-05-28] MEDS: polyethylene glycoL 3350 17 GM POWD.PACK PO (08:58)
--- NOTE | 2022-05-28 13:10 | HO.PSYCHPN ---
Subjective Subjective Date of Service: 05/28/22 Reason For Visit: Si Interim History: Pt mostly in her room. She reports today that she is fatigued and that she is still depressed. She has anxiety. Complains of AH. However, she says her symptoms are improved since admission. She says her mood is so so She denies SI. She is mostly isolative. Review of Systems Review of Systems Except for urinary discomfort secondary to UTI Yes all other systems are reviewed and are negative Constitutional: Reports as per HPI, Reports difficulty sleeping and Reports headache(s) Eyes: Reports no additional eye complaints Reports headache(s) Cardiovascular: Denies chest pain, Denies chest pain at rest, Denies irregular heart rhythm, Denies lightheadedness and Denies dyspnea Respiratory: Denies dyspnea Gastrointestinal: Denies constipation, Denies loose stools, Denies nausea, Denies vomiting and Denies hematemesis Reports headache(s) Mental Status Exam Mental Status Exam Narrative: Appearance: wearing hospital gown, fair hyiene, in NAD behavior: cooperative Speech: clear, mild delayed in response rate, spontaneous Psychomotor: no agitation or retardation noted TP: linear TC: hearing voices, feeling overwhelmed Mood: soso Affect: constricted, congruent SI: passive, denies any plan or intent HI: none AH: CAH telling her to hurt herself. VH: denies Delusions: paranoid delusions Insight/judgment: fair x 2. Memory/cog: alert, oriented x 3. noticeable gaps in memory, may benefit from MOCA. Diagnostics Vital Signs (24Hr): Vital Signs - 24 hr 05/28/22 08:55 05/28/22 21:05 Temperature 98.0 F 98 F Pulse Rate 62 82 Respiratory Rate 18 14 Blood Pressure 109/70 99/73 Pulse Oximetry 97 95 Oxygen Delivery Method Room Air Room Air BMI result Body Mass Index 31.9 Labs 05/19/22 19:06 05/20/22 08:46 Medications Medications Current Medications Acetaminophen (Acetaminophen 325 Mg Tablet) 650 mg PO Q6H PRN PRN Reason: Headache/Pain Mild Scale (1-3) Al Hydroxide/Mg Hydroxide (Magnesium Hydrox/Alum Hydrox 30 Ml Oral.Susp) 30 ml PO Q6H PRN PRN Reason: Heartburn/Nausea Albuterol Sulfate (Albuterol Sulfate 90 Mcg 8 Gm Inhaler) 2 puff INHALE RQ6H PRN PRN Reason: shortness of breath or wheezing Last Admin: 05/28/22 14:36 Dose: 2 puff Atorvastatin Calcium (Atorvastatin Calcium 10 Mg Tablet) 10 mg PO BEDTIME [facility] Last Admin: 05/28/22 21:02 Dose: 10 mg Benztropine Mesylate (Benztropine Mesylate 1 Mg Tablet) 1 mg PO BID [facility] Last Admin: 05/28/22 21:00 Dose: 1 mg Cefuroxime Axetil (Cefuroxime Axetil 250 Mg Tablet) 250 mg PO BID [facility] Stop: 05/28/22 23:59 Last Admin: 05/28/22 21:01 Dose: 250 mg Docusate Sodium (Docusate Sodium 100 Mg Capsule) 100 mg PO BID [facility] Last Admin: 05/28/22 21:00 Dose: 100 mg Gabapentin (Gabapentin 400 Mg Capsule) 800 mg PO TID [facility] Last Admin: 05/28/22 21:00 Dose: 800 mg Haloperidol (Haloperidol 5 Mg Tablet) 5 mg PO BID [facility] Last Admin: 05/28/22 21:00 Dose: 5 mg Hydroxyzine HCl (Hydroxyzine Hcl 25 Mg Tablet) 25 mg PO Q6H PRN PRN Reason: Anxiety Last Admin: 05/21/22 20:55 Dose: 25 mg Lactulose (Lactulose 20 Gm/30 Ml Solution) 10 gm PO DAILY [facility] Last Admin: 05/28/22 08:58 Dose: 10 gm Lorazepam (Lorazepam 1 Mg Tablet) 1 mg PO BID [facility] Last Admin: 05/28/22 21:00 Dose: 1 mg Magnesium Hydroxide (Milk Of Magnesia 30 Ml Oral.Susp) 30 ml PO DAILY PRN PRN Reason: Constipation Last Admin: 05/27/22 13:26 Dose: 30 ml Meclizine HCl (Meclizine Hcl 25 Mg Tablet) 25 mg PO TID PRN PRN Reason: dizziness Olanzapine (Olanzapine 5 Mg Tablet) 5 mg PO Q6H PRN PRN Reason: agitation/anxiety/psychosis Last Admin: 05/28/22 21:02 Dose: 5 mg Oxybutynin Chloride (Oxybutynin Chloride Er 5 Mg Tab.Er.24) 5 mg PO DAILY [facility] Last Admin: 05/28/22 08:57 Dose: 5 mg Polyethylene Glycol (Polyethylene Glycol 3350 17 Gm Powd.Pack) 17 gm PO BID [facility] Last Admin: 05/28/22 21:06 Dose: Not Given Pramoxine HCl (Pramoxine Hcl 1 % Rectal Foam 15 Gm) 1 appl [place] BID [facility] Last Admin: 05/28/22 21:07 Dose: Not Given Senna (Sennosides 8.6 Mg Tablet) 17.2 mg PO BEDTIME [facility] Last Admin: 05/28/22 21:01 Dose: 17.2 mg Tramadol HCl (Tramadol Hcl 50 Mg Tablet) 100 mg PO Q8H PRN PRN Reason: Pain, Moderate (Pain Scale 4-6 Last Admin: 05/28/22 18:16 Dose: 100 mg Trazodone HCl (Trazodone Hcl 50 Mg Tablet) 50 mg PO BEDTIME PRN PRN Reason: Insomnia Last Admin: 05/26/22 21:15 Dose: 50 mg Vitamin D (Cholecalciferol (Vitamin D3) 25 Mcg Tablet) 25 mcg PO DAILY [facility] Last Admin: 05/28/22 08:57 Dose: 25 mcg Allergies Allergies Allergy/AdvReac Type Severity Reaction Status Date / Time No Known Allergies Allergy Verified 05/09/22 16:08 Assessment & Plan Assessment & Plan (1) MDD (major depressive disorder), recurrent, severe, with psychosis: Status: Acute Code(s): F33.3 - Major depressive disorder, recurrent, severe with psychotic symptoms Plan Ms. Siu is a 51 year-old woman with hx of MDD with psychosis versus schizophrenia who was brought to [facility] via EMS after being assessed at her home by [facility] crisis team after reported finding pt with metal nail file pointing at her and reporting CAH. Pt is known to this unit and M5 through previous admission for similar presentation. Apparerntly there has not been any medication changes and pt was taking medications as prescribed. PLAN 1. Admit to M3, CV, 15 minutes checks for safety 2. Continue current medications 3. Obtain collateral information- [facility] [phone] 4. Aftercare planning. 05/21: Continue current regimen and plans 05/22: Continue current regimen and plans. Increased Toradol to 100 mg q.8 PRN 05/23 continue current tx. 05/24 continue tx. 05/25 continue tx. 05/26 continue tx. 05/27 continue tx. 05/28: Continue current tx plan. Reason for contiued inpatient stay Substantial Risk for: harm to self Time Spent With Patient Time: Total time managing care of this patient today ____ minutes.
[2022-05-28] MEDS: Albuterol Sulfate 90 MCG 8 GM INHALER 2 PUFF INHALE (14:36)
[2022-05-28] MEDS: traMADoL HCL 50 MG TABLET 100 MG PO (18:16)
[2022-05-28] MEDS: Sennosides 8.6 MG TABLET 17.2 MG PO (21:01)
[2022-05-28] MEDS: Atorvastatin Calcium 10 MG TABLET PO (21:02)
[2022-05-28] MEDS: OLANZapine 5 MG TABLET PO (21:02)
[2022-05-28 21:05] VITALS: BP 99/73; PULSE 82; RESP 14; TEMP 36.6; O2SAT 95
[2022-05-29] MEDS: traMADoL HCL 50 MG TABLET 100 MG PO ×3 (03:14→19:03)
[2022-05-29 06:00] VITALS: BP 109/71; PULSE 80; RESP 20; TEMP 36.7; O2SAT 95
[2022-05-29] MEDS: HaloperidoL 5 MG TABLET PO ×2 (09:27→21:49)
[2022-05-29] MEDS: Benztropine Mesylate 1 MG TABLET PO ×2 (09:27→21:48)
[2022-05-29] MEDS: Gabapentin 400 MG CAPSULE 800 MG PO ×3 (09:27→21:49)
[2022-05-29] MEDS: LORazepam 1 MG TABLET PO ×2 (09:27→21:50)
[2022-05-29] MEDS: Docusate Sodium 100 MG CAPSULE PO ×2 (09:27→21:51)
[2022-05-29] MEDS: Cholecalciferol (Vitamin D3) 25 MCG TABLET PO (09:35)
[2022-05-29] MEDS: Lactulose 20 GM/30 ML SOLUTION 10 GM PO (09:44)
[2022-05-29] MEDS: Albuterol Sulfate 90 MCG 8 GM INHALER 2 PUFF INHALE (09:50)
[2022-05-29 10:55] LABS: COVID-19 Test Negative (Negative); IDNOW Serial# 9DB6401D
--- NOTE | 2022-05-29 11:15 | HO.PSYCHPN ---
Subjective Subjective Date of Service: 05/29/22 Reason For Visit: Si Interim History: Pt mostly in her room. She reports today that she is having some sore throat. She was swabbed for COVID and was negative. Some depression and AH continue but lessened from admission. Review of Systems Review of Systems Except for urinary discomfort secondary to UTI Yes all other systems are reviewed and are negative Constitutional: Reports as per HPI, Reports difficulty sleeping and Reports headache(s) Eyes: Reports no additional eye complaints Reports headache(s) Cardiovascular: Denies chest pain, Denies chest pain at rest, Denies irregular heart rhythm, Denies lightheadedness and Denies dyspnea Respiratory: Denies dyspnea Gastrointestinal: Denies constipation, Denies loose stools, Denies nausea, Denies vomiting and Denies hematemesis Reports headache(s) Mental Status Exam Mental Status Exam Narrative: Appearance: wearing hospital gown, fair hyiene, in NAD behavior: cooperative Speech: clear, mild delayed in response rate, spontaneous Psychomotor: no agitation or retardation noted TP: linear TC: hearing voices, feeling overwhelmed Mood: soso Affect: constricted, congruent SI: passive, denies any plan or intent HI: none AH: CAH telling her to hurt herself. VH: denies Delusions: paranoid delusions Insight/judgment: fair x 2. Memory/cog: alert, oriented x 3. noticeable gaps in memory, may benefit from MOCA. Diagnostics Vital Signs (24Hr): Vital Signs - 24 hr 05/29/22 06:00 Temperature 98.0 F Pulse Rate 80 Respiratory Rate 20 Blood Pressure 109/71 Pulse Oximetry 95 Oxygen Delivery Method Room Air BMI result Body Mass Index 31.9 Labs 05/19/22 19:06 05/20/22 08:46 Labs: Laboratory Results - last 48 hr 05/29/22 05/29/22 09:52 21:59 POC Glucose 121 H COVID-19 ([facility]) Negative COVID-19 Clin Com See Note Medications Medications Current Medications Acetaminophen (Acetaminophen 325 Mg Tablet) 650 mg PO Q6H PRN PRN Reason: Headache/Pain Mild Scale (1-3) Al Hydroxide/Mg Hydroxide (Magnesium Hydrox/Alum Hydrox 30 Ml Oral.Susp) 30 ml PO Q6H PRN PRN Reason: Heartburn/Nausea Last Admin: 05/29/22 17:04 Dose: 30 ml Albuterol Sulfate (Albuterol Sulfate 90 Mcg 8 Gm Inhaler) 2 puff INHALE RQ6H PRN PRN Reason: shortness of breath or wheezing Last Admin: 05/29/22 09:50 Dose: 2 puff Atorvastatin Calcium (Atorvastatin Calcium 10 Mg Tablet) 10 mg PO BEDTIME [facility] Last Admin: 05/29/22 21:49 Dose: 10 mg Benztropine Mesylate (Benztropine Mesylate 1 Mg Tablet) 1 mg PO BID [facility] Last Admin: 05/29/22 21:48 Dose: 1 mg Docusate Sodium (Docusate Sodium 100 Mg Capsule) 100 mg PO BID [facility] Last Admin: 05/29/22 21:51 Dose: 100 mg Gabapentin (Gabapentin 400 Mg Capsule) 800 mg PO TID [facility] Last Admin: 05/29/22 21:49 Dose: 800 mg Haloperidol (Haloperidol 5 Mg Tablet) 5 mg PO BID [facility] Last Admin: 05/29/22 21:49 Dose: 5 mg Hydroxyzine HCl (Hydroxyzine Hcl 25 Mg Tablet) 25 mg PO Q6H PRN PRN Reason: Anxiety Last Admin: 05/21/22 20:55 Dose: 25 mg Lactulose (Lactulose 20 Gm/30 Ml Solution) 10 gm PO DAILY [facility] Last Admin: 05/29/22 09:44 Dose: 10 gm Lorazepam (Lorazepam 1 Mg Tablet) 1 mg PO BID [facility] Last Admin: 05/29/22 21:50 Dose: 1 mg Magnesium Hydroxide (Milk Of Magnesia 30 Ml Oral.Susp) 30 ml PO DAILY PRN PRN Reason: Constipation Last Admin: 05/27/22 13:26 Dose: 30 ml Meclizine HCl (Meclizine Hcl 25 Mg Tablet) 25 mg PO TID PRN PRN Reason: dizziness Olanzapine (Olanzapine 5 Mg Tablet) 5 mg PO Q6H PRN PRN Reason: agitation/anxiety/psychosis Last Admin: 05/29/22 19:02 Dose: 5 mg Oxybutynin Chloride (Oxybutynin Chloride Er 5 Mg Tab.Er.24) 5 mg PO DAILY [facility] Last Admin: 05/29/22 09:27 Dose: 5 mg Polyethylene Glycol (Polyethylene Glycol 3350 17 Gm Powd.Pack) 17 gm PO BID [facility] Last Admin: 05/29/22 21:53 Dose: 17 gm Pramoxine HCl (Pramoxine Hcl 1 % Rectal Foam 15 Gm) 1 appl [place] BID [facility] Last Admin: 05/29/22 09:47 Dose: Not Given Senna (Sennosides 8.6 Mg Tablet) 17.2 mg PO BEDTIME [facility] Last Admin: 05/29/22 21:50 Dose: 17.2 mg Tramadol HCl (Tramadol Hcl 50 Mg Tablet) 100 mg PO Q8H PRN PRN Reason: Pain, Moderate (Pain Scale 4-6 Last Admin: 05/29/22 19:03 Dose: 100 mg Trazodone HCl (Trazodone Hcl 50 Mg Tablet) 50 mg PO BEDTIME PRN PRN Reason: Insomnia Last Admin: 05/29/22 21:49 Dose: 50 mg Vitamin D (Cholecalciferol (Vitamin D3) 25 Mcg Tablet) 25 mcg PO DAILY [facility] Last Admin: 05/29/22 09:35 Dose: 25 mcg Allergies Allergies Allergy/AdvReac Type Severity Reaction Status Date / Time No Known Allergies Allergy Verified 05/09/22 16:08 Assessment & Plan Assessment & Plan (1) MDD (major depressive disorder), recurrent, severe, with psychosis: Status: Acute Code(s): F33.3 - Major depressive disorder, recurrent, severe with psychotic symptoms Plan Ms. Siu is a 51 year-old woman with hx of MDD with psychosis versus schizophrenia who [place] [facility] [place] [facility] [place] after being assessed at her home by [facility] crisis team after reported finding pt with metal nail file pointing at her and reporting CAH. Pt is known to this unit and [facility]5 through previous admission for similar presentation. Apparerntly there has not been any medication changes and pt was taking medications as prescribed. PLAN 1. Admit to M3, CV, 15 minutes checks for safety 2. Continue current medications 3. Obtain collateral information- [facility] [phone] 4. Aftercare planning. 05/21: Continue current regimen and plans 05/22: Continue current regimen and plans. Increased Toradol to 100 mg q.8 PRN 05/23 continue current tx. 05/24 continue tx. 05/25 continue tx. 05/26 continue tx. 05/27 continue tx. 05/28: Continue current tx plan. 05/29: Continue current tx plan. Reason for contiued inpatient stay Substantial Risk for: harm to self and rapid decompensation Time Spent With Patient Time: Total time managing care of this patient today ____ minutes.
[2022-05-29] MEDS: OLANZapine 5 MG TABLET PO ×2 (11:54→19:02)
--- NOTE | 2022-05-29 16:54 | PC.NURSE ---
Assessed with fourdrinier tender. Reports her liver is inflamed . The doctor here told me . It has been a while . Reports vomiting x1 today, does not know what time. States Pepto bismol helps, offered Mylanta. Reports voices are the same, tell her to hurt self and others. States her children keep her from acting on voices. States the doctors ran away today . Encouraged to come out into common area although states I like to be isolated .
[2022-05-29] MEDS: Magnesium Hydrox/Alum Hydrox 30 ML ORAL.SUSP PO (17:04)
[2022-05-29 18:00] VITALS: BP 116/83; PULSE 70; RESP 16; TEMP 36.4; O2SAT 93
[2022-05-29] MEDS: traZODone HCL 50 MG TABLET PO (21:49)
[2022-05-29] MEDS: Atorvastatin Calcium 10 MG TABLET PO (21:49)
[2022-05-29] MEDS: Sennosides 8.6 MG TABLET 17.2 MG PO (21:50)
[2022-05-29] MEDS: polyethylene glycoL 3350 17 GM POWD.PACK PO (21:53)
[2022-05-29 22:00] VITALS: BP 134/82; PULSE 80; RESP 16; O2SAT 98
[2022-05-29 22:07] LABS: Glucose, Whole Blood 121 mg/dL (60-115)
--- NOTE | 2022-05-30 00:05 | PC.NURSE ---
on medication pass, pt exited the bed and stood and spoke with me for several minutes. quite suddenly both her knees jolene and the pt began to fall to the floor. fortunately there was a b/p machine which she was able to grab onto and steady herself. i was within arms reached and supported her into a nearby chair. house oracle developer carlos summoned to bedside. pt states that she became dizzy and the room was spinning. at this juncture we checked vital as well serum glucose. b/p 134/82 p 80 rr 16 sao2 98%. poc 121. pt was given 240 ml of OJ and 2 gram crackers. after the snack and resting in the chair, pt stood and ambulated to her bed without incident. she verbalizes pain in her lower spine caused by an injection for pain management several weeks ago. lumbar and sacral areas inspected and no signs of trauma or infection appreciated.
[2022-05-30 08:45] VITALS: BP 118/69; PULSE 71; RESP 20; O2SAT 95
[2022-05-30] MEDS: polyethylene glycoL 3350 17 GM POWD.PACK PO (09:13)
[2022-05-30] MEDS: Lactulose 20 GM/30 ML SOLUTION 10 GM PO (09:14)
[2022-05-30] MEDS: Gabapentin 400 MG CAPSULE 800 MG PO ×3 (09:16→22:18)
[2022-05-30] MEDS: HaloperidoL 5 MG TABLET PO ×2 (09:17→22:17)
[2022-05-30] MEDS: Docusate Sodium 100 MG CAPSULE PO ×2 (09:17→22:17)
[2022-05-30] MEDS: Benztropine Mesylate 1 MG TABLET PO ×2 (09:18→22:17)
[2022-05-30] MEDS: LORazepam 1 MG TABLET PO ×2 (09:18→22:16)
[2022-05-30] MEDS: Cholecalciferol (Vitamin D3) 25 MCG TABLET PO (09:19)
[2022-05-30 10:37] LABS: MANUAL DIFF FLAG NO
[2022-05-30 10:42] LABS: Basophils Percent Auto 0.9 % (0-2); Eosinophils Absolute Auto 0.1 X10*3/uL (0.0-0.4); Eosinophils Percent Auto 2.1 % (0-4); Hematocrit 41.8 % (37.0-47.0); Hemoglobin 13.7 g/dl (12.0-16.0); Imm Gran Abs Auto 0.01 X10*3/uL (0.00-0.03); Imm Gran Pct Auto 0.3 % (0.0-0.4); Lymphocytes Absolute Auto 0.9 X10*3/uL (1.2-4.9); Lymphocytes Percent Auto 25.9 % (20-40); Mean Corpuscular HGB Conc 32.8 g/dl (31.0-35.0); Mean Corpuscular Hemoglobin 33.3 pg (27.0-33.0); Mean Corpuscular Volume 101.5 fL (80.0-98.0); Mean Platelet Volume 9.2 fL (9.4-12.3); Monocytes Absolute Auto 0.3 X10*3/uL (0.1-1.2); Monocytes Percent Auto 8.3 % (2-11); Neutrophils Absolute Auto 2.1 x10*3/uL (2.0-8.3); Neutrophils Percent Auto 62.5 % (45-73); Platelet Count 239 X10*3/uL (160-400); Red Blood Count 4.12 X10*6/uL (4.20-5.50); Red Cell Distribution Width 11.7 % (11.0-16.0); White Blood Count 3.4 X10*3/uL (4.8-10.8)
[2022-05-30 10:45] VITALS: TEMP 36.4
[2022-05-30 10:45] LABS: Ammonia 48 umol/L (13-55)
--- NOTE | 2022-05-30 10:45 | PC.NURSE ---
Late entry: 0915 Patient alert, appears disorganized and confused, not oriented to time, only oriented to person and place. Reports some chronic lower back pain. provider notified through team.
[2022-05-30 11:03] LABS: Alanine Aminotransferase 524 U/L (0-31); Albumin Level 3.3 g/dL (3.5-5.0); Alkaline Phosphatase 304 U/L (39-117); Anion Gap 12 (12-20); Aspartate Amino Transferase 602 U/L (5-31); Bilirubin Total 0.5 mg/dL (0.0-1.0); Blood Urea Nitrogen 12 mg/dL (9-16); Calcium 8.7 mg/dL (8.4-10.2); Carbon Dioxide 28 mmol/L (22-29); Chloride 106 mmol/L (96-108); Creatinine Clr Calc Pharmacy 67.3; Estimated Glomerular Filt Rate 59; Glucose Fasting 171 mg/dL (60-99); Potassium 3.9 mmol/L (3.3-5.1); Sodium 142 mmol/L (135-145); Total Protein 5.6 g/dL (6.5-8.0)
--- NOTE | 2022-05-30 11:11 | PC.NURSE ---
Provider notified of labs : LFT/WBC via priority text.
--- NOTE | 2022-05-30 11:18 | PC.NURSE ---
STAT hospitalist consult sent to [facility].
[2022-05-30 11:45] VITALS: BP 111/75; PULSE 77; RESP 18; O2SAT 94
--- NOTE | 2022-05-30 11:46 | PC.NURSE ---
CT called, pt informed that she will be having additional testing including CT scan. Pt denies nausea, reports only chronic lower back pain, denies any new symptoms at this time.
--- NOTE | 2022-05-30 11:57 | PC.NURSE ---
Pt transported to CT scan
[2022-05-30 12:02] LABS: Lipase 10 U/L (8-78)
--- NOTE | 2022-05-30 12:04 | P.PNPSI_ITS ---
Subjective Subjective Date of Service: 05/30/22 Reason For Visit: Si Subjective Notes: Conditional Voluntary Interim History: Pt in bed. She reports waking up at night, somewhat confused trying to go to the bathroom. She reports left flank pain. No vomiting/loose stool. Labs ordered, hospitalist consult place- labs show elevated LFTs. She reports voices are on and off. She reports yesterday voices were worse and she had intermittent SI. Per nursing, pt appeared increasingly more confused last night. Medication Compliance: Yes Side effects from medications: No Review of Systems Acute medical concerns: No Review of Systems Review of Systems Denies any recent fever chills or decrease in appetite respiratory denies any shortness of breath coverage production cardiovascular Denies chest pain gastrointestinal denies any dysphagia abdominal pain nausea vomiting or diarrhea, reports right flank pain genitourinary denies any dysuria frequency or hematuria musculoskeletal denies any joint pain or swelling neuropsych denies any weakness or seizures all other systems reviewed are negative Yes all other systems are reviewed and are negative Constitutional: Reports as per HPI, Reports difficulty sleeping and Reports headache(s) Eyes: Reports no additional eye complaints Reports headache(s) Cardiovascular: Denies chest pain, Denies chest pain at rest, Denies irregular heart rhythm, Denies lightheadedness and Denies dyspnea Respiratory: Denies dyspnea Gastrointestinal: Denies constipation, Denies loose stools, Denies nausea, Denies vomiting and Denies hematemesis Reports headache(s) Mental Status Exam Mental Status Exam Narrative: Appearance: wearing hospital gown, fair hyiene, in NAD behavior: cooperative Speech: clear, mild delayed in response rate, spontaneous Psychomotor: no agitation or retardation noted TP: linear TC: hearing voices, feeling overwhelmed Mood: so, so Affect: constricted, congruent SI: passive, denies any plan or intent HI: none AH: CAH telling her to hurt herself. VH: denies Delusions: paranoid delusions Insight/judgment: fair x 2. Memory/cog: alert, oriented x 3. noticeable gaps in memory, may benefit from MOCA. Diagnostics Vital Signs (24Hr): Vital Signs - 24 hr 05/30/22 10:45 05/30/22 11:45 05/31/22 02:27 Temperature 97.6 F Pulse Rate 77 Respiratory Rate 18 18 Blood Pressure 111/75 Pulse Oximetry 94 Oxygen Delivery Method Room Air 05/30/22 20:40 Temperature 97.6 F Pulse Rate 83 Respiratory Rate 18 Blood Pressure 100/56 L Pulse Oximetry 96 Oxygen Delivery Method Room Air BMI result Body Mass Index 31.9 Labs 05/30/22 10:32 05/30/22 10:32 Labs: Laboratory Results - last 48 hr 05/29/22 05/29/22 05/30/22 09:52 21:59 10:32 WBC 3.4 L RBC 4.12 L Hgb 13.7 Hct 41.8 MCV 101.5 H MCH 33.3 H MCHC 32.8 RDW 11.7 Plt Count 239 MPV 9.2 L Immature Gran % (Auto) 0.3 Neut % (Auto) 62.5 Lymph % (Auto) 25.9 [place] % (Auto) 8.3 Eos % (Auto) 2.1 Baso % (Auto) 0.9 Lymph # (Auto) 0.9 L [place] # (Auto) 0.3 Eos # (Auto) 0.1 Baso # (Auto) 0.0 Abs Immat Gran (auto) 0.01 Absolute Neuts (auto) 2.1 Absolute Nucleated RBC 0.000 Nucleated RBC % (auto) 0.0 PT INR Sodium Potassium Chloride Carbon Dioxide Anion Gap BUN Creatinine Estim Creat Clear Calc Estimated GFR POC Glucose 121 H Fasting Glucose Calcium Total Bilirubin Direct Bilirubin GGT AST ALT Alkaline Phosphatase Ammonia Lactate Dehydrogenase Total Creatine Kinase Total Protein Albumin Lipase Urine Color Urine Appearance Urine pH Ur Specific [place] Urine Protein Urine Glucose (UA) Urine Ketones Urine Blood Urine Nitrite Ur Leukocyte Esterase Urine RBC Urine WBC Ur Squamous Epith Cells Urine Bacteria Hyaline Casts Acetaminophen COVID-19 ([facility]) Negative COVID-19 Clin Com See Note 05/30/22 05/30/22 05/30/22 10:32 10:32 15:36 WBC RBC Hgb Hct MCV MCH MCHC RDW Plt Count MPV Immature Gran % (Auto) Neut % (Auto) Lymph % (Auto) [place] % (Auto) Eos % (Auto) Baso % (Auto) Lymph # (Auto) [place] # (Auto) Eos # (Auto) Baso # (Auto) Abs Immat Gran (auto) Absolute Neuts (auto) Absolute Nucleated RBC Nucleated RBC % (auto) PT 10.7 INR 0.9 Sodium 142 Potassium 3.9 Chloride 106 Carbon Dioxide 28 Anion Gap 12 BUN 12 Creatinine 0.99 Estim Creat Clear Calc 67.3 Estimated GFR 59 POC Glucose Fasting Glucose 171 H Calcium 8.7 Total Bilirubin 0.5 Direct Bilirubin GGT AST 602 H ALT 524 H Alkaline Phosphatase 304 H Ammonia 48 Lactate Dehydrogenase Total Creatine Kinase Total Protein 5.6 L Albumin 3.3 L Lipase 10 Urine Color Urine Appearance Urine pH Ur Specific [place] Urine Protein Urine Glucose (UA) Urine Ketones Urine Blood Urine Nitrite Ur Leukocyte Esterase Urine RBC Urine WBC Ur Squamous Epith Cells Urine Bacteria Hyaline Casts Acetaminophen COVID-19 ([facility]) COVID-19 [facility] Com 05/30/22 05/30/22 05/30/22 15:36 15:36 16:35 WBC RBC Hgb Hct MCV MCH MCHC RDW Plt Count MPV Immature Gran % (Auto) Neut % (Auto) Lymph % (Auto) [place] % (Auto) Eos % (Auto) Baso % (Auto) Lymph # (Auto) [place] # (Auto) Eos # (Auto) Baso # (Auto) Abs Immat Gran (auto) Absolute Neuts (auto) Absolute Nucleated RBC Nucleated RBC % (auto) PT INR Sodium Potassium Chloride Carbon Dioxide Anion Gap BUN Creatinine Estim Creat Clear Calc Estimated GFR POC Glucose Fasting Glucose Calcium Total Bilirubin 0.7 Direct Bilirubin 0.2 GGT 410 H AST 435 H ALT 530 H Alkaline Phosphatase 335 H Ammonia Lactate Dehydrogenase 514 H Total Creatine Kinase 45 Total Protein 6.5 Albumin 3.8 Lipase Urine Color Yellow Urine Appearance Clear Urine pH 6.5 Ur Specific [place] 1.010 Urine Protein Negative Urine Glucose (UA) Negative Urine Ketones Negative Urine Blood Trace H Urine Nitrite Positive H Ur Leukocyte Esterase Small (1+) H Urine RBC 3-5 H Urine WBC 0-5 Ur Squamous Epith Cells 0-2 Urine Bacteria 4+ Hyaline Casts 0-2 Acetaminophen < 17 COVID-19 ([facility]) COVID-19 Clin Com Imaging Radiology Impressions: ITS Impressions Abdomen CT 05/30/22 12:58 IMPRESSION: Noncontrast evaluation of the liver is normal. No biliary ductal dilatation. No visible choledocholithiasis. Cholecystectomy. Nonobstructing calculus lower pole right kidney. Fleischner guidelines were followed. Medications Medications Current Medications Al Hydroxide/Mg Hydroxide (Magnesium Hydrox/Alum Hydrox 30 Ml Oral.Susp) 30 ml PO Q6H PRN PRN Reason: Heartburn/Nausea Last Admin: 05/29/22 17:04 Dose: 30 ml Albuterol Sulfate (Albuterol Sulfate 90 Mcg 8 Gm Inhaler) 2 puff INHALE RQ6H PRN PRN Reason: shortness of breath or wheezing Last Admin: 05/29/22 09:50 Dose: 2 puff Benztropine Mesylate (Benztropine Mesylate 1 Mg Tablet) 1 mg PO BID [facility] Last Admin: 05/30/22 22:17 Dose: 1 mg Cefuroxime Axetil (Cefuroxime Axetil 500 Mg Tablet) 500 mg PO Q12H [facility] Stop: 06/07/22 07:59 Docusate Sodium (Docusate Sodium 100 Mg Capsule) 100 mg PO BID [facility] Last Admin: 05/30/22 22:17 Dose: 100 mg Gabapentin (Gabapentin 400 Mg Capsule) 800 mg PO TID [facility] Last Admin: 05/30/22 22:18 Dose: 800 mg Haloperidol (Haloperidol 5 Mg Tablet) 5 mg PO BID [facility] Last Admin: 05/30/22 22:17 Dose: 5 mg Hydroxyzine HCl (Hydroxyzine Hcl 25 Mg Tablet) 25 mg PO Q6H PRN PRN Reason: Anxiety Last Admin: 05/21/22 20:55 Dose: 25 mg Lactulose (Lactulose 20 Gm/30 Ml Solution) 10 gm PO DAILY [facility] Last Admin: 05/30/22 09:14 Dose: 10 gm Lorazepam (Lorazepam 1 Mg Tablet) 1 mg PO BID [facility] Last Admin: 05/30/22 22:16 Dose: 1 mg Magnesium Hydroxide (Milk Of Magnesia 30 Ml Oral.Susp) 30 ml PO DAILY PRN PRN Reason: Constipation Last Admin: 05/27/22 13:26 Dose: 30 ml Meclizine HCl (Meclizine Hcl 25 Mg Tablet) 25 mg PO TID PRN PRN Reason: dizziness Olanzapine (Olanzapine 5 Mg Tablet) 5 mg PO Q6H PRN PRN Reason: agitation/anxiety/psychosis Last Admin: 05/29/22 19:02 Dose: 5 mg Oxybutynin Chloride (Oxybutynin Chloride Er 5 Mg Tab.Er.24) 5 mg PO DAILY [facility] Last Admin: 05/30/22 09:15 Dose: 5 mg Polyethylene Glycol (Polyethylene Glycol 3350 17 Gm Powd.Pack) 17 gm PO BID [facility] Last Admin: 05/30/22 22:18 Dose: Not Given Pramoxine HCl (Pramoxine Hcl 1 % Rectal Foam 15 Gm) 1 appl [place] BID [facility] Last Admin: 05/30/22 22:18 Dose: Not Given Senna (Sennosides 8.6 Mg Tablet) 17.2 mg PO BEDTIME [facility] Last Admin: 05/30/22 22:17 Dose: 17.2 mg Tramadol HCl (Tramadol Hcl 50 Mg Tablet) 100 mg PO Q8H PRN PRN Reason: Pain, Moderate (Pain Scale 4-6 Last Admin: 05/30/22 18:57 Dose: 100 mg Trazodone HCl (Trazodone Hcl 50 Mg Tablet) 50 mg PO BEDTIME PRN PRN Reason: Insomnia Last Admin: 05/29/22 21:49 Dose: 50 mg Vitamin D (Cholecalciferol (Vitamin D3) 25 Mcg Tablet) 25 mcg PO DAILY [facility] Last Admin: 05/30/22 09:19 Dose: 25 mcg Allergies Allergies Allergy/AdvReac Type Severity Reaction Status Date / Time No Known Allergies Allergy Verified 05/09/22 16:08 Assessment & Plan Assessment & Plan (1) MDD (major depressive disorder), recurrent, severe, with psychosis: Status: Acute Code(s): F33.3 - Major depressive disorder, recurrent, severe with psychotic symptoms Plan 05/30 continue current medications. hospitalist consult. Patient educated on: diagnosis Reason for contiued inpatient stay Substantial Risk for: inability to function Time Spent With Patient Time: Total time managing care of this patient today _30___ minutes.
--- NOTE | 2022-05-30 15:28 | HO.PM.IMCN ---
History of Present Illness Data of Consult Service Date: 05/30/22 Requesting physician: Patsy Pollard Primary Care Provider: Hung Montelongo MD HPI 51 year old women admitted to adult [facility] for depression developed right flank pain with one episode of vomiting. patient denied fever, chills or recent illness although she did say she was treated for urinary tract infection with last dose being on May 05. Due to her abdominal pain labs were done and showed transaminitis. Normal labs on 05/20/2022. There does not appear to be any new medications that may be causing this or drug use as patient has been admitted for 10 days already. Due to this medical consultation was placed. Review of Systems Review of Systems: Denies any recent fever chills or decrease in appetite respiratory denies any shortness of breath coverage production cardiovascular Denies chest pain gastrointestinal denies any dysphagia abdominal pain nausea vomiting or diarrhea, reports right flank pain genitourinary denies any dysuria frequency or hematuria musculoskeletal denies any joint pain or swelling neuropsych denies any weakness or seizures all other systems reviewed are negative [facility] Medical History (Updated 05/30/22 @ 17:13 by Tiffany Le NP) Anxiety Asthma Avascular necrosis of femoral head Bilateral carpal tunnel syndrome Chronic constipation Diverticulosis Dizziness of unknown etiology Dyspareunia GERD (gastroesophageal reflux disease) Hx of schizophrenia Hyperlipidemia Incisional hernia without obstruction or gangrene Ingrown toenail Insomnia Iron deficiency anemia Lumbar degenerative disc disease Major depression, recurrent Migraine Obesity (BMI 30-39.9) Orthostatic hypotension MIGUEL (obstructive sleep apnea) Panic attacks Peroneal neuropathy PTSD (post-traumatic stress disorder) Pyelonephritis Renal cyst Sacroiliitis Spondylosis of lumbar spine Tremor Tubular adenoma Vitamin D deficiency Family History Father Liver cancer Mother Breast cancer Maternal Grandmother Breast cancer Sister Lung cancer Other Mental health problem Surgical History H/O left nephrectomy History of bilateral breast reduction surgery History of bladder repair surgery (~03/2015) History of bladder surgery (~10/2009) History of cholecystectomy History of colonoscopy History of endoscopy (~06/2016) History of gastric bypass (~2008) History of hernia repair (~03/29/10) History of hysterectomy History of incisional hernia repair (~1999) History of surgery Hx of cystoscopy Hx of umbilical hernia repair (~1999) S/P cystoscopy (~07/30/12) S/P laparoscopic sleeve gastrectomy S/P panniculectomy Social History Household Members: Spouse and Family Housing: House Do you presently have visiting nurse or other home services: Yes Alcohol intake: never Patient Tobacco Use Status: Never used Tobacco e-Cigarette/Vaping Use: Never Used Second Hand Smoke Exposure: No Use of substances other than those prescribed or required for medical reasons: No Currently Displaying Signs/Symptoms of Drug Intoxication Withdrawal: No Have you been hit, kicked, punched, or otherwise hurt by someone within the past year? If so, by whom?: No Do you feel safe in your current relationship?: Yes Is there a partner from a previous relationship who is making you feel unsafe now?: No Are you made to feel afraid or neglected: No Spiritual Healthcare Practices: none identified [facility] Practices: none identified Cultural Healthcare Practices: none identified Advance Directives: Yes Advance Directives on File: Yes Advance Directives Date on File: 07/12/21 Do you have thoughts of harming others: None Do you have a plan to hurt others: No Plan Recently lost weight without trying: No How much weight loss: Not applicable Eating poorly because of decreased appetite: No Nutrition screen score: 0 Nutrition Risks: No Nutritional Risk Patient : No : No Poor oral hygiene: No service: No Current occupational status: disabled Sexual orientation: Straight/Heterosexual Cognitive needs: No Hearing needs: No Vision needs: Yes Meds Allergies Allergy/AdvReac Type Severity Reaction Status Date / Time No Known Allergies Allergy Verified 05/09/22 16:08 Active Medications: Current Medications Al Hydroxide/Mg Hydroxide (Magnesium Hydrox/Alum Hydrox 30 Ml Oral.Susp) 30 ml PO Q6H PRN PRN Reason: Heartburn/Nausea Last Admin: 05/29/22 17:04 Dose: 30 ml Albuterol Sulfate (Albuterol Sulfate 90 Mcg 8 Gm Inhaler) 2 puff INHALE RQ6H PRN PRN Reason: shortness of breath or wheezing Last Admin: 05/29/22 09:50 Dose: 2 puff Benztropine Mesylate (Benztropine Mesylate 1 Mg Tablet) 1 mg PO BID [facility] Last Admin: 05/30/22 09:18 Dose: 1 mg Docusate Sodium (Docusate Sodium 100 Mg Capsule) 100 mg PO BID [facility] Last Admin: 05/30/22 09:17 Dose: 100 mg Gabapentin (Gabapentin 400 Mg Capsule) 800 mg PO TID [facility] Last Admin: 05/30/22 14:55 Dose: 800 mg Haloperidol (Haloperidol 5 Mg Tablet) 5 mg PO BID [facility] Last Admin: 05/30/22 09:17 Dose: 5 mg Hydroxyzine HCl (Hydroxyzine Hcl 25 Mg Tablet) 25 mg PO Q6H PRN PRN Reason: Anxiety Last Admin: 05/21/22 20:55 Dose: 25 mg Lactulose (Lactulose 20 Gm/30 Ml Solution) 10 gm PO DAILY [facility] Last Admin: 05/30/22 09:14 Dose: 10 gm Lorazepam (Lorazepam 1 Mg Tablet) 1 mg PO BID [facility] Last Admin: 05/30/22 09:18 Dose: 1 mg Magnesium Hydroxide (Milk Of Magnesia 30 Ml Oral.Susp) 30 ml PO DAILY PRN PRN Reason: Constipation Last Admin: 05/27/22 13:26 Dose: 30 ml Meclizine HCl (Meclizine Hcl 25 Mg Tablet) 25 mg PO TID PRN PRN Reason: dizziness Olanzapine (Olanzapine 5 Mg Tablet) 5 mg PO Q6H PRN PRN Reason: agitation/anxiety/psychosis Last Admin: 05/29/22 19:02 Dose: 5 mg Oxybutynin Chloride (Oxybutynin Chloride Er 5 Mg Tab.Er.24) 5 mg PO DAILY [facility] Last Admin: 05/30/22 09:15 Dose: 5 mg Polyethylene Glycol (Polyethylene Glycol 3350 17 Gm Powd.Pack) 17 gm PO BID [facility] Last Admin: 05/30/22 09:13 Dose: 17 gm Pramoxine HCl (Pramoxine Hcl 1 % Rectal Foam 15 Gm) 1 appl SD BID [facility] Last Admin: 05/30/22 12:53 Dose: Not Given Senna (Sennosides 8.6 Mg Tablet) 17.2 mg PO BEDTIME [facility] Last Admin: 05/29/22 21:50 Dose: 17.2 mg Tramadol HCl (Tramadol Hcl 50 Mg Tablet) 100 mg PO Q8H PRN PRN Reason: Pain, Moderate (Pain Scale 4-6 Last Admin: 05/29/22 19:03 Dose: 100 mg Trazodone HCl (Trazodone Hcl 50 Mg Tablet) 50 mg PO BEDTIME PRN PRN Reason: Insomnia Last Admin: 05/29/22 21:49 Dose: 50 mg Vitamin D (Cholecalciferol (Vitamin D3) 25 Mcg Tablet) 25 mcg PO DAILY [facility] Last Admin: 05/30/22 09:19 Dose: 25 mcg Home Medications Medication Instructions Recorded Confirmed Last Taken Type benztropine 1 mg tablet 1 tab PO BID 10/28/21 05/19/22 1 Day Ago History ~10/28/21 haloperidol 5 mg tablet 5 mg PO BID 02/28/22 05/19/22 Unknown History atorvastatin 10 mg tablet 10 mg PO BEDTIME 05/03/22 05/19/22 Unknown History cholecalciferol (vitamin D3) 25 1 cap PO DAILY 05/19/22 05/19/22 Unknown History mcg (1,000 unit) capsule (Vitamin D3) clonazepam 0.5 mg tablet 0.5 mg PO BID PRN Anxiety 05/19/22 05/19/22 Unknown History gabapentin 800 mg tablet 1 tab PO TID 05/19/22 05/19/22 Unknown History meclizine 25 mg tablet 25 mg PO TID PRN dizziness 05/19/22 05/19/22 Unknown History Physical Exam Vital Signs and Narrative: Vital Signs: Last Vital Signs Temp 97.6 F 05/30/22 10:45 Pulse 77 05/30/22 11:45 Resp 18 05/30/22 11:45 BP 111/75 05/30/22 11:45 Pulse Ox 94 05/30/22 11:45 O2 Del Method 05/30/22 11:45 BMI result Body Mass Index 31.9 Appearing in no acute distress head is normocephalic atraumatic eyes pupils are PERRLA sclera is anicteric mouth throat mucous membranes are intact and moist neck is supple no lymphadenopathy, no JVD noted lung sounds are clear to auscultation heart regular rate rhythm, clear S1, S2 positive bowel sounds, abdomen is soft, nontender neuro patient is alert x3, no focal deficits Cranial nerves 2-12 are grossly intact without focal deficits Results Labs 05/30/22 10:32 05/30/22 10:32 Labs: Laboratory Results - last 24 hr 05/29/22 05/30/22 05/30/22 21:59 10:32 10:32 MCV 101.5 H MCH 33.3 H MCHC 32.8 RDW 11.7 Plt Count 239 MPV 9.2 L Immature Gran % (Auto) 0.3 Neut % (Auto) 62.5 Lymph % (Auto) 25.9 [place] % (Auto) 8.3 Eos % (Auto) 2.1 Baso % (Auto) 0.9 Lymph # (Auto) 0.9 L [place] # (Auto) 0.3 Eos # (Auto) 0.1 Baso # (Auto) 0.0 Abs Immat Gran (auto) 0.01 Absolute Neuts (auto) 2.1 Absolute Nucleated RBC 0.000 Nucleated RBC % (auto) 0.0 Anion Gap 12 Estim Creat Clear Calc 67.3 Estimated GFR 59 POC Glucose 121 H Fasting Glucose 171 H Calcium 8.7 Total Bilirubin 0.5 AST 602 H ALT 524 H Alkaline Phosphatase 304 H Ammonia Total Protein 5.6 L Albumin 3.3 L Lipase 10 05/30/22 10:32 MCV MCH MCHC RDW Plt Count MPV Immature Gran % (Auto) Neut % (Auto) Lymph % (Auto) [place] % (Auto) Eos % (Auto) Baso % (Auto) Lymph # (Auto) [place] # (Auto) Eos # (Auto) Baso # (Auto) Abs Immat Gran (auto) Absolute Neuts (auto) Absolute Nucleated RBC Nucleated RBC % (auto) Anion Gap Estim Creat Clear Calc Estimated GFR POC Glucose Fasting Glucose Calcium Total Bilirubin AST ALT Alkaline Phosphatase Ammonia 48 Total Protein Albumin Lipase Imaging Radiologist's Impressions: Impressions Abdomen CT 05/30/22 12:58 IMPRESSION: Noncontrast evaluation of the liver is normal. No biliary ductal dilatation. No visible choledocholithiasis. Cholecystectomy. Nonobstructing calculus lower pole right kidney. Fleischner guidelines were followed. Assessment and Plan (1) Transaminitis: Status: Acute Plan 51 year old women admitted to adult psych for depression devloped transaminitis over the course of 10 days Transaminitis unknown etiology at this time c/o right flank pain no encephalopathy no hx of alcohol abuse No acute abnormality of abd CT, no liver process noted stopped statin and tylenol (normal tylenol level) Hep panel, EBV, CMV, UA pending AST 602, ALT 530, Alk phos 335,CK 45, LDH 514, GGT 410, tylenol >17, INR 0.9 ? viral hepatitis vs medication (statin) Repeat LFT in the morning if no improvement consider GI consult will follow Time Spent With Patient Time: Total time managing care of this patient today ____ minutes.
[2022-05-30 15:52] LABS: INTERNATIONAL NORM RATIO 0.9 (0.9-1.1); Prothrombin Time 10.7 SEC (10.0-13.1)
[2022-05-30 16:22] LABS: Acetaminophen LAB < 17 mcg/mL (<30); Gamma Glutamyl Transpeptidase 410 U/L (7-33); Lactate Dehydrogenase 514 U/L (122-220)
[2022-05-30 16:54] LABS: Appearance Urine Clear; Color Urine Yellow; Glucose Urine UA Negative (Negative); Leukocyte Esterase Urine Small (1+) (Negative); Nitrite Urine Positive (Negative); PH 6.5 (5.0-9.0); UMIC TRIGGER UACC YES; Urine Blood Trace (Negative); Urine Ketones Negative (Negative); Urine Protein Negative (Neg-Trace)
[2022-05-30 16:55] LABS: Alanine Aminotransferase 530 U/L (0-31); Albumin Level 3.8 g/dL (3.5-5.0); Alkaline Phosphatase 335 U/L (39-117); Aspartate Amino Transferase 435 U/L (5-31); Bilirubin Direct 0.2 mg/dL (0.0-0.5); Bilirubin Total 0.7 mg/dL (0.0-1.0); Total Protein 6.5 g/dL (6.5-8.0)
[2022-05-30 17:11] LABS: Bacteria Urine 4+ (None Seen); Hyaline Casts Urine 0-2 /LPF (0-2); Squamous Epithelial Cell Urine 0-2 /HPF (0-2); UACC Culture Trigger YES; WBC Urine 0-5 /HPF (0-5)
[2022-05-30] MEDS: traMADoL HCL 50 MG TABLET 100 MG PO (18:57)
[2022-05-30 20:40] VITALS: BP 100/56; PULSE 83; RESP 18; TEMP 36.4; O2SAT 96
[2022-05-30] MEDS: Sennosides 8.6 MG TABLET 17.2 MG PO (22:17)
[2022-05-31 02:27] VITALS: PULSE 78; RESP 18; O2SAT 98
--- NOTE | 2022-05-31 07:29 | PM.EVENT ---
Event Note Date of Service: 05/31/22 Event Note: 51 year old women admitted to adult psych for depression developed right flank pain with one episode of vomiting.? patient denied fever, chills or recent illness although she did say she was treated for urinary tract infection with last dose being on May 05.? Due to her abdominal pain labs were done and showed transaminitis.? Normal labs on 05/20/2022.? There does not appear to be any new medications that may be causing this or drug use as patient has been admitted for 10 days already.? Due to this medical consultation was placed. GNR UTI likely ecoli appears to have had an ecoli UTI that was untreated 05/19/22 Started on Ceftin 500mg BID for 7 days Transaminitis possibly from untreated UTI? c/o right flank pain no encephalopathy no hx of alcohol abuse No acute abnormality of abd CT, no liver process noted stopped statin and tylenol (normal tylenol level) Hep panel, EBV, CMV AST 602, ALT 530, Alk phos 335,CK 45, LDH 514, GGT 410, tylenol >17, INR 0.9 ? viral hepatitis vs medication vs untreated UTI Repeat LFT trending down Time Spent With Patient Time: Total time managing care of this patient today ____ minutes.
[2022-05-31 09:40] VITALS: BP 102/62; PULSE 70; RESP 20; TEMP 36.3; O2SAT 95
[2022-05-31] MEDS: polyethylene glycoL 3350 17 GM POWD.PACK PO (09:44)
[2022-05-31] MEDS: Lactulose 20 GM/30 ML SOLUTION 10 GM PO (09:44)
[2022-05-31] MEDS: Cholecalciferol (Vitamin D3) 25 MCG TABLET PO (09:46)
[2022-05-31] MEDS: HaloperidoL 5 MG TABLET PO ×2 (09:46→21:06)
[2022-05-31] MEDS: Gabapentin 400 MG CAPSULE 800 MG PO ×3 (09:47→21:06)
[2022-05-31] MEDS: Benztropine Mesylate 1 MG TABLET PO ×2 (09:47→21:07)
[2022-05-31] MEDS: Docusate Sodium 100 MG CAPSULE PO ×2 (09:48→21:06)
[2022-05-31] MEDS: LORazepam 1 MG TABLET PO ×2 (09:48→21:07)
[2022-05-31 10:15] LABS: Alanine Aminotransferase 313 U/L (0-31); Albumin Level 3.2 g/dL (3.5-5.0); Alkaline Phosphatase 248 U/L (39-117); Aspartate Amino Transferase 149 U/L (5-31); Bilirubin Direct 0.3 mg/dL (0.0-0.5); Bilirubin Total 0.8 mg/dL (0.0-1.0); Total Protein 5.4 g/dL (6.5-8.0)
--- NOTE | 2022-05-31 12:07 | HO.PSYCHPN ---
Subjective Subjective Date of Service: 05/31/22 Reason For Visit: Si Interim History: Pt reports still has flank pain, starting on antibiotic for UTI. LFT trending down. Pt reports sleeping better. Pt reports hearing voices on and off. She reports intermittent suicidal ideation, feeling depressed and anxious. Pt mostly in bed, followed by hospitalist. Medication Compliance: Yes Side effects from medications: No Attending Groups: No Review of Systems Review of Systems Denies any recent fever chills or decrease in appetite respiratory denies any shortness of breath coverage production cardiovascular Denies chest pain gastrointestinal denies any dysphagia abdominal pain nausea vomiting or diarrhea, reports right flank pain genitourinary denies any dysuria frequency or hematuria musculoskeletal denies any joint pain or swelling neuropsych denies any weakness or seizures all other systems reviewed are negative Yes all other systems are reviewed and are negative Constitutional: Reports as per HPI, Reports difficulty sleeping and Reports headache(s) Eyes: Reports no additional eye complaints Reports headache(s) Cardiovascular: Denies chest pain, Denies chest pain at rest, Denies irregular heart rhythm, Denies lightheadedness and Denies dyspnea Respiratory: Denies dyspnea Gastrointestinal: Denies constipation, Denies loose stools, Denies nausea, Denies vomiting and Denies hematemesis Reports headache(s) Mental Status Exam Mental Status Exam Narrative: Appearance: wearing hospital gown, fair hyiene, in NAD behavior: cooperative Speech: clear, mild delayed in response rate, spontaneous Psychomotor: no agitation or retardation noted TP: linear TC: hearing voices, feeling overwhelmed Mood: so, so Affect: constricted, congruent SI: passive, denies any plan or intent HI: none AH: CAH telling her to hurt herself. VH: denies Delusions: paranoid delusions Insight/judgment: fair x 2. Memory/cog: alert, oriented x 3. noticeable gaps in memory, may benefit from MOCA. Diagnostics Vital Signs (24Hr): Vital Signs - 24 hr 05/31/22 09:40 05/31/22 21:00 06/01/22 06:00 Temperature 97.3 F 97 F 97.8 F Pulse Rate 70 76 82 Respiratory Rate 20 16 16 Blood Pressure 102/62 114/70 112/72 Pulse Oximetry 95 93 95 Oxygen Delivery Method Room Air Room Air Room Air BMI result Body Mass Index 31.9 Labs 05/30/22 10:32 05/30/22 10:32 Labs: Laboratory Results - last 48 hr 05/30/22 05/30/22 05/30/22 10:32 10:32 10:32 WBC 3.4 L RBC 4.12 L Hgb 13.7 Hct 41.8 MCV 101.5 H MCH 33.3 H MCHC 32.8 RDW 11.7 Plt Count 239 MPV 9.2 L Immature Gran % (Auto) 0.3 Neut % (Auto) 62.5 Lymph % (Auto) 25.9 [place] % (Auto) 8.3 Eos % (Auto) 2.1 Baso % (Auto) 0.9 Lymph # (Auto) 0.9 L [place] # (Auto) 0.3 Eos # (Auto) 0.1 Baso # (Auto) 0.0 Abs Immat Gran (auto) 0.01 Absolute Neuts (auto) 2.1 Absolute Nucleated RBC 0.000 Nucleated RBC % (auto) 0.0 PT INR Sodium 142 Potassium 3.9 Chloride 106 Carbon Dioxide 28 Anion Gap 12 BUN 12 Creatinine 0.99 Estim Creat Clear Calc 67.3 Estimated GFR 59 Fasting Glucose 171 H Calcium 8.7 Total Bilirubin 0.5 Direct Bilirubin GGT AST 602 H ALT 524 H Alkaline Phosphatase 304 H Ammonia 48 Lactate Dehydrogenase Total Creatine Kinase Total Protein 5.6 L Albumin 3.3 L Lipase 10 Urine Color Urine Appearance Urine pH Ur Specific [place] Urine Protein Urine Glucose (UA) Urine Ketones Urine Blood Urine Nitrite Ur Leukocyte Esterase Urine RBC Urine WBC Ur Squamous Epith Cells Urine Bacteria Hyaline Casts Acetaminophen EBV Capsid Ag IgG Ab EBV Capsid Ag IgM Index EBV Nuclear Ag IgG Indx EBV Antibody Interp Hepatitis A IgM Ab Hep Bs Antigen Hep Bs Antibody Hep B Core Total Ab Hepatitis C Ab (EIA) 05/30/22 05/30/22 05/30/22 10:32 15:36 15:36 WBC RBC Hgb Hct MCV MCH MCHC RDW Plt Count MPV Immature Gran % (Auto) Neut % (Auto) Lymph % (Auto) [place] % (Auto) Eos % (Auto) Baso % (Auto) Lymph # (Auto) [place] # (Auto) Eos # (Auto) Baso # (Auto) Abs Immat Gran (auto) Absolute Neuts (auto) Absolute Nucleated RBC Nucleated RBC % (auto) PT 10.7 INR 0.9 Sodium Potassium Chloride Carbon Dioxide Anion Gap BUN Creatinine Estim Creat Clear Calc Estimated GFR Fasting Glucose Calcium Total Bilirubin Direct Bilirubin GGT 410 H AST ALT Alkaline Phosphatase Ammonia Lactate Dehydrogenase 514 H Total Creatine Kinase 45 Total Protein Albumin Lipase Urine Color Urine Appearance Urine pH Ur Specific [place] Urine Protein Urine Glucose (UA) Urine Ketones Urine Blood Urine Nitrite Ur Leukocyte Esterase Urine RBC Urine WBC Ur Squamous Epith Cells Urine Bacteria Hyaline Casts Acetaminophen < 17 EBV Capsid Ag IgG Ab EBV Capsid Ag IgM Index EBV Nuclear Ag IgG Indx EBV Antibody Interp Hepatitis A IgM Ab Nonreactive Hep Bs Antigen Negative Hep Bs Antibody NONREACTIVE Hep B Core Total Ab Nonreactive Hepatitis C Ab (EIA) Nonreactive 05/30/22 05/30/22 05/30/22 15:36 15:36 16:35 WBC RBC Hgb Hct MCV MCH MCHC RDW Plt Count MPV Immature Gran % (Auto) Neut % (Auto) Lymph % (Auto) [place] % (Auto) Eos % (Auto) Baso % (Auto) Lymph # (Auto) [place] # (Auto) Eos # (Auto) Baso # (Auto) Abs Immat Gran (auto) Absolute Neuts (auto) Absolute Nucleated RBC Nucleated RBC % (auto) PT INR Sodium Potassium Chloride Carbon Dioxide Anion Gap BUN Creatinine Estim Creat Clear Calc Estimated GFR Fasting Glucose Calcium Total Bilirubin 0.7 Direct Bilirubin 0.2 GGT AST 435 H ALT 530 H Alkaline Phosphatase 335 H Ammonia Lactate Dehydrogenase Total Creatine Kinase Total Protein 6.5 Albumin 3.8 Lipase Urine Color Yellow Urine Appearance Clear Urine pH 6.5 Ur Specific [place] 1.010 Urine Protein Negative Urine Glucose (UA) Negative Urine Ketones Negative Urine Blood Trace H Urine Nitrite Positive H Ur Leukocyte Esterase Small (1+) H Urine RBC 3-5 H Urine WBC 0-5 Ur Squamous Epith Cells 0-2 Urine Bacteria 4+ Hyaline Casts 0-2 Acetaminophen EBV Capsid Ag IgG Ab 202.00 H EBV Capsid Ag IgM Index <36.00 EBV Nuclear Ag IgG Indx 580.00 H EBV Antibody Interp SEE NOTE Hepatitis A IgM Ab Hep Bs Antigen Hep Bs Antibody Hep B Core Total Ab Hepatitis C Ab (EIA) 05/31/22 05/31/22 09:09 09:09 WBC RBC Hgb Hct MCV MCH MCHC RDW Plt Count MPV Immature Gran % (Auto) Neut % (Auto) Lymph % (Auto) [place] % (Auto) Eos % (Auto) Baso % (Auto) Lymph # (Auto) [place] # (Auto) Eos # (Auto) Baso # (Auto) Abs Immat Gran (auto) Absolute Neuts (auto) Absolute Nucleated RBC Nucleated RBC % (auto) PT INR Sodium Potassium Chloride Carbon Dioxide Anion Gap BUN Creatinine Estim Creat Clear Calc Estimated GFR Fasting Glucose Calcium Total Bilirubin 0.8 Cancelled Direct Bilirubin 0.3 Cancelled GGT AST 149 H Cancelled ALT 313 H Cancelled Alkaline Phosphatase 248 H Cancelled Ammonia Lactate Dehydrogenase Total Creatine Kinase Total Protein 5.4 L Cancelled Albumin 3.2 L Cancelled Lipase Urine Color Urine Appearance Urine pH Ur Specific [place] Urine Protein Urine Glucose (UA) Urine Ketones Urine Blood Urine Nitrite Ur Leukocyte Esterase Urine RBC Urine WBC Ur Squamous Epith Cells Urine Bacteria Hyaline Casts Acetaminophen EBV Capsid Ag IgG Ab EBV Capsid Ag IgM Index EBV Nuclear Ag IgG Indx EBV Antibody Interp Hepatitis A IgM Ab Hep Bs Antigen Hep Bs Antibody Hep B Core Total Ab Hepatitis C Ab (EIA) Imaging Radiology Impressions: ITS Impressions KUB X-Ray 05/30/22 10:26 IMPRESSION: 1. Mild constipation. 2. Right renal calculi. 3. Postsurgical changes left epigastric region, left midabdomen abdominal wall hernia repair and cholecystectomy. Abdomen CT 05/30/22 12:58 IMPRESSION: Noncontrast evaluation of the liver is normal. No biliary ductal dilatation. No visible choledocholithiasis. Cholecystectomy. Nonobstructing calculus lower pole right kidney. Fleischner guidelines were followed. Medications Medications Current Medications Al Hydroxide/Mg Hydroxide (Magnesium Hydrox/Alum Hydrox 30 Ml Oral.Susp) 30 ml PO Q6H PRN PRN Reason: Heartburn/Nausea Last Admin: 05/29/22 17:04 Dose: 30 ml Albuterol Sulfate (Albuterol Sulfate 90 Mcg 8 Gm Inhaler) 2 puff INHALE RQ6H PRN PRN Reason: shortness of breath or wheezing Last Admin: 05/29/22 09:50 Dose: 2 puff Benztropine Mesylate (Benztropine Mesylate 1 Mg Tablet) 1 mg PO BID [facility] Last Admin: 06/01/22 08:53 Dose: 1 mg Cefuroxime Axetil (Cefuroxime Axetil 500 Mg Tablet) 500 mg PO Q12H [facility] Stop: 06/07/22 07:59 Last Admin: 06/01/22 08:53 Dose: 500 mg Docusate Sodium (Docusate Sodium 100 Mg Capsule) 100 mg PO BID [facility] Last Admin: 06/01/22 08:52 Dose: 100 mg Gabapentin (Gabapentin 400 Mg Capsule) 800 mg PO TID [facility] Last Admin: 06/01/22 08:53 Dose: 800 mg Haloperidol (Haloperidol 5 Mg Tablet) 5 mg PO BID [facility] Last Admin: 06/01/22 08:53 Dose: 5 mg Hydroxyzine HCl (Hydroxyzine Hcl 25 Mg Tablet) 25 mg PO Q6H PRN PRN Reason: Anxiety Last Admin: 05/31/22 12:40 Dose: 25 mg Lactulose (Lactulose 20 Gm/30 Ml Solution) 10 gm PO DAILY [facility] Last Admin: 06/01/22 08:52 Dose: 10 gm Lorazepam (Lorazepam 1 Mg Tablet) 1 mg PO BID [facility] Last Admin: 06/01/22 08:52 Dose: 1 mg Magnesium Hydroxide (Milk Of Magnesia 30 Ml Oral.Susp) 30 ml PO DAILY PRN PRN Reason: Constipation Last Admin: 05/27/22 13:26 Dose: 30 ml Meclizine HCl (Meclizine Hcl 25 Mg Tablet) 25 mg PO TID PRN PRN Reason: dizziness Olanzapine (Olanzapine 5 Mg Tablet) 5 mg PO Q6H PRN PRN Reason: agitation/anxiety/psychosis Last Admin: 05/29/22 19:02 Dose: 5 mg Oxybutynin Chloride (Oxybutynin Chloride Er 5 Mg Tab.Er.24) 5 mg PO DAILY [facility] Last Admin: 06/01/22 08:53 Dose: 5 mg Polyethylene Glycol (Polyethylene Glycol 3350 17 Gm Powd.Pack) 17 gm PO BID [facility] Last Admin: 06/01/22 08:53 Dose: 17 gm Pramoxine HCl (Pramoxine Hcl 1 % Rectal Foam 15 Gm) 1 appl [place] BID [facility] Last Admin: 05/31/22 21:54 Dose: Not Given Senna (Sennosides 8.6 Mg Tablet) 17.2 mg PO BEDTIME [facility] Last Admin: 05/31/22 21:05 Dose: 17.2 mg Tramadol HCl (Tramadol Hcl 50 Mg Tablet) 100 mg PO Q8H PRN PRN Reason: Pain, Moderate (Pain Scale 4-6 Last Admin: 05/31/22 21:05 Dose: 100 mg Trazodone HCl (Trazodone Hcl 50 Mg Tablet) 50 mg PO BEDTIME PRN PRN Reason: Insomnia Last Admin: 05/31/22 21:05 Dose: 50 mg Vitamin D (Cholecalciferol (Vitamin D3) 25 Mcg Tablet) 25 mcg PO DAILY [facility] Last Admin: 06/01/22 08:53 Dose: 25 mcg Allergies Allergies Allergy/AdvReac Type Severity Reaction Status Date / Time No Known Allergies Allergy Verified 05/09/22 16:08 Assessment & Plan Assessment & Plan (1) MDD (major depressive disorder), recurrent, severe, with psychosis: Status: Acute Code(s): F33.3 - Major depressive disorder, recurrent, severe with psychotic symptoms Plan 05/30 continue current medications. hospitalist consult. 05/31 continue current medications. Reason for contiued inpatient stay Substantial Risk for: inability to function Time Spent With Patient Time: Total time managing care of this patient today ____ minutes.
[2022-05-31] MEDS: hydrOXYzine HCL 25 MG TABLET PO (12:40)
[2022-05-31] MEDS: traMADoL HCL 50 MG TABLET 100 MG PO ×2 (12:40→21:05)
--- NOTE | 2022-05-31 12:44 | PC.NURSE ---
Patient out of room, requesting AM medications, stating that he is anxious and in pain. Pt reports stent is due to be removed tomorrow. Reviewed situation w/ Dr. Sampson- patient may receive AM medications now.
[2022-05-31 21:00] VITALS: BP 114/70; PULSE 76; RESP 16; TEMP 36.1; O2SAT 93
[2022-05-31] MEDS: Sennosides 8.6 MG TABLET 17.2 MG PO (21:05)
[2022-05-31] MEDS: traZODone HCL 50 MG TABLET PO (21:05)
[2022-05-31 22:09] LABS: EBV-VCA IgM Ab <36.00 U/mL
[2022-06-01 04:55] LABS: HBS Num1 1.01 mIU/mL (0-7.99); HBc Num1 0.12 S/CO (0.00-0.79); HBsAGNum1 0.33 S/CO (0.00-0.99); Hepatitis A Antibody IgM 0.19 Index (0-0.79); Hepatitis B Core Antibody Nonreactive (Nonreactive); Hepatitis B Surface Antigen Negative (Negative); ~HepC Num1 0.11 S/CO (0.00-0.79); ~Hepatitis A Antibody IgM Nonreactive (Nonreactive); ~Hepatitis B Surface Antibody NONREACTIVE (Nonreactive); ~Hepatitis C Antibody Nonreactive (Nonreactive)
[2022-06-01 06:00] VITALS: BP 112/72; PULSE 82; RESP 16; TEMP 36.6; O2SAT 95
[2022-06-01] MEDS: Lactulose 20 GM/30 ML SOLUTION 10 GM PO (08:52)
[2022-06-01] MEDS: LORazepam 1 MG TABLET PO ×2 (08:52→20:54)
[2022-06-01] MEDS: Docusate Sodium 100 MG CAPSULE PO ×2 (08:52→20:52)
[2022-06-01] MEDS: Cholecalciferol (Vitamin D3) 25 MCG TABLET PO (08:53)
[2022-06-01] MEDS: Gabapentin 400 MG CAPSULE 800 MG PO ×3 (08:53→20:52)
[2022-06-01] MEDS: polyethylene glycoL 3350 17 GM POWD.PACK PO (08:53)
[2022-06-01] MEDS: HaloperidoL 5 MG TABLET PO ×2 (08:53→20:52)
[2022-06-01] MEDS: Benztropine Mesylate 1 MG TABLET PO ×2 (08:53→20:53)
[2022-06-01] MEDS: traMADoL HCL 50 MG TABLET 100 MG PO ×2 (09:11→18:13)
[2022-06-01 09:55] LABS: Alanine Aminotransferase 236 U/L (0-31); Albumin Level 3.2 g/dL (3.5-5.0); Alkaline Phosphatase 250 U/L (39-117); Aspartate Amino Transferase 89 U/L (5-31); Bilirubin Direct 0.2 mg/dL (0.0-0.5); Bilirubin Total 0.5 mg/dL (0.0-1.0); Total Protein 5.4 g/dL (6.5-8.0)
--- NOTE | 2022-06-01 10:10 | HO.PSYCHPN ---
Subjective Subjective Date of Service: 06/01/22 Reason For Visit: Si Subjective Notes: Conditional Voluntary Interim History: Met with PT and SW Janet. Pt reports sleeping better, still having left flank pain. She reports voices are less. No SI/HI. Seen by hospitalist, LFT trending down. No behavioral concerns. Medication Compliance: Yes Side effects from medications: No Attending Groups: No Mental Status Exam Mental Status Exam Narrative: Appearance: wearing hospital gown, fair hyiene, in NAD behavior: cooperative Speech: clear, mild delayed in response rate, spontaneous Psychomotor: no agitation or retardation noted TP: linear TC: hearing voices, feeling overwhelmed Mood: so, so Affect: constricted, congruent SI: denies any plan or intent HI: none AH: CAH telling her to hurt herself. VH: denies Delusions: paranoid delusions Insight/judgment: fair x 2. Memory/cog: alert, oriented x 3. noticeable gaps in memory, may benefit from MOCA. Diagnostics Vital Signs (24Hr): Vital Signs - 24 hr 05/31/22 21:00 06/01/22 06:00 Temperature 97 F 97.8 F Pulse Rate 76 82 Respiratory Rate 16 16 Blood Pressure 114/70 112/72 Pulse Oximetry 93 95 Oxygen Delivery Method Room Air Room Air BMI result Body Mass Index 31.9 Labs 05/30/22 10:32 05/30/22 10:32 Labs: Laboratory Results - last 48 hr 05/30/22 05/30/22 05/30/22 10:32 10:32 10:32 WBC 3.4 L RBC 4.12 L Hgb 13.7 Hct 41.8 MCV 101.5 H MCH 33.3 H MCHC 32.8 RDW 11.7 Plt Count 239 MPV 9.2 L Immature Gran % (Auto) 0.3 Neut % (Auto) 62.5 Lymph % (Auto) 25.9 Sebastian % (Auto) 8.3 Eos % (Auto) 2.1 Baso % (Auto) 0.9 Lymph # (Auto) 0.9 L Sebastian # (Auto) 0.3 Eos # (Auto) 0.1 Baso # (Auto) 0.0 Abs Immat Gran (auto) 0.01 Absolute Neuts (auto) 2.1 Absolute Nucleated RBC 0.000 Nucleated RBC % (auto) 0.0 PT INR Sodium 142 Potassium 3.9 Chloride 106 Carbon Dioxide 28 Anion Gap 12 BUN 12 Creatinine 0.99 Estim Creat Clear Calc 67.3 Estimated GFR 59 Fasting Glucose 171 H Calcium 8.7 Total Bilirubin 0.5 Direct Bilirubin GGT AST 602 H ALT 524 H Alkaline Phosphatase 304 H Ammonia 48 Lactate Dehydrogenase Total Creatine Kinase Total Protein 5.6 L Albumin 3.3 L Lipase 10 Urine Color Urine Appearance Urine pH Ur Specific [place] Urine Protein Urine Glucose (UA) Urine Ketones Urine Blood Urine Nitrite Ur Leukocyte Esterase Urine RBC Urine WBC Ur Squamous Epith Cells Urine Bacteria Hyaline Casts Acetaminophen EBV Capsid Ag IgG Ab EBV Capsid Ag IgM Index EBV Nuclear Ag IgG Indx EBV Antibody Interp Hepatitis A IgM Ab Hep Bs Antigen Hep Bs Antibody Hep B Core Total Ab Hepatitis C Ab (EIA) 05/30/22 05/30/22 05/30/22 10:32 15:36 15:36 WBC RBC Hgb Hct MCV MCH MCHC RDW Plt Count MPV Immature Gran % (Auto) Neut % (Auto) Lymph % (Auto) Sebastian % (Auto) Eos % (Auto) Baso % (Auto) Lymph # (Auto) Sebastian # (Auto) Eos # (Auto) Baso # (Auto) Abs Immat Gran (auto) Absolute Neuts (auto) Absolute Nucleated RBC Nucleated RBC % (auto) PT 10.7 INR 0.9 Sodium Potassium Chloride Carbon Dioxide Anion Gap BUN Creatinine Estim Creat Clear Calc Estimated GFR Fasting Glucose Calcium Total Bilirubin Direct Bilirubin GGT 410 H AST ALT Alkaline Phosphatase Ammonia Lactate Dehydrogenase 514 H Total Creatine Kinase 45 Total Protein Albumin Lipase Urine Color Urine Appearance Urine pH Ur Specific [place] Urine Protein Urine Glucose (UA) Urine Ketones Urine Blood Urine Nitrite Ur Leukocyte Esterase Urine RBC Urine WBC Ur Squamous Epith Cells Urine Bacteria Hyaline Casts Acetaminophen < 17 EBV Capsid Ag IgG Ab EBV Capsid Ag IgM Index EBV Nuclear Ag IgG Indx EBV Antibody Interp Hepatitis A IgM Ab Nonreactive Hep Bs Antigen Negative Hep Bs Antibody NONREACTIVE Hep B Core Total Ab Nonreactive Hepatitis C Ab (EIA) Nonreactive 05/30/22 05/30/22 05/30/22 15:36 15:36 16:35 WBC RBC Hgb Hct MCV MCH MCHC RDW Plt Count MPV Immature Gran % (Auto) Neut % (Auto) Lymph % (Auto) Sebastian % (Auto) Eos % (Auto) Baso % (Auto) Lymph # (Auto) Sebastian # (Auto) Eos # (Auto) Baso # (Auto) Abs Immat Gran (auto) Absolute Neuts (auto) Absolute Nucleated RBC Nucleated RBC % (auto) PT INR Sodium Potassium Chloride Carbon Dioxide Anion Gap BUN Creatinine Estim Creat Clear Calc Estimated GFR Fasting Glucose Calcium Total Bilirubin 0.7 Direct Bilirubin 0.2 GGT AST 435 H ALT 530 H Alkaline Phosphatase 335 H Ammonia Lactate Dehydrogenase Total Creatine Kinase Total Protein 6.5 Albumin 3.8 Lipase Urine Color Yellow Urine Appearance Clear Urine pH 6.5 Ur Specific [place] 1.010 Urine Protein Negative Urine Glucose (UA) Negative Urine Ketones Negative Urine Blood Trace H Urine Nitrite Positive H Ur Leukocyte Esterase Small (1+) H Urine RBC 3-5 H Urine WBC 0-5 Ur Squamous Epith Cells 0-2 Urine Bacteria 4+ Hyaline Casts 0-2 Acetaminophen EBV Capsid Ag IgG Ab 202.00 H EBV Capsid Ag IgM Index <36.00 EBV Nuclear Ag IgG Indx 580.00 H EBV Antibody Interp SEE NOTE Hepatitis A IgM Ab Hep Bs Antigen Hep Bs Antibody Hep B Core Total Ab Hepatitis C Ab (EIA) 05/31/22 05/31/22 06/01/22 09:09 09:09 08:43 WBC RBC Hgb Hct MCV MCH MCHC RDW Plt Count MPV Immature Gran % (Auto) Neut % (Auto) Lymph % (Auto) Sebastian % (Auto) Eos % (Auto) Baso % (Auto) Lymph # (Auto) Sebastian # (Auto) Eos # (Auto) Baso # (Auto) Abs Immat Gran (auto) Absolute Neuts (auto) Absolute Nucleated RBC Nucleated RBC % (auto) PT INR Sodium Potassium Chloride Carbon Dioxide Anion Gap BUN Creatinine Estim Creat Clear Calc Estimated GFR Fasting Glucose Calcium Total Bilirubin 0.8 Cancelled 0.5 Direct Bilirubin 0.3 Cancelled 0.2 GGT AST 149 H Cancelled 89 H ALT 313 H Cancelled 236 H Alkaline Phosphatase 248 H Cancelled 250 H Ammonia Lactate Dehydrogenase Total Creatine Kinase Total Protein 5.4 L Cancelled 5.4 L Albumin 3.2 L Cancelled 3.2 L Lipase Urine Color Urine Appearance Urine pH Ur Specific [place] Urine Protein Urine Glucose (UA) Urine Ketones Urine Blood Urine Nitrite Ur Leukocyte Esterase Urine RBC Urine WBC Ur Squamous Epith Cells Urine Bacteria Hyaline Casts Acetaminophen EBV Capsid Ag IgG Ab EBV Capsid Ag IgM Index EBV Nuclear Ag IgG Indx EBV Antibody Interp Hepatitis A IgM Ab Hep Bs Antigen Hep Bs Antibody Hep B Core Total Ab Hepatitis C Ab (EIA) Imaging Radiology Impressions: ITS Impressions KUB X-Ray 05/30/22 10:26 IMPRESSION: 1. Mild constipation. 2. Right renal calculi. 3. Postsurgical changes left epigastric region, left midabdomen abdominal wall hernia repair and cholecystectomy. Abdomen CT 05/30/22 12:58 IMPRESSION: Noncontrast evaluation of the liver is normal. No biliary ductal dilatation. No visible choledocholithiasis. Cholecystectomy. Nonobstructing calculus lower pole right kidney. Fleischner guidelines were followed. Medications Medications Current Medications Al Hydroxide/Mg Hydroxide (Magnesium Hydrox/Alum Hydrox 30 Ml Oral.Susp) 30 ml PO Q6H PRN PRN Reason: Heartburn/Nausea Last Admin: 05/29/22 17:04 Dose: 30 ml Albuterol Sulfate (Albuterol Sulfate 90 Mcg 8 Gm Inhaler) 2 puff INHALE RQ6H PRN PRN Reason: shortness of breath or wheezing Last Admin: 05/29/22 09:50 Dose: 2 puff Benztropine Mesylate (Benztropine Mesylate 1 Mg Tablet) 1 mg PO BID [facility] Last Admin: 06/01/22 08:53 Dose: 1 mg Cefuroxime Axetil (Cefuroxime Axetil 500 Mg Tablet) 500 mg PO Q12H [facility] Stop: 06/07/22 07:59 Last Admin: 06/01/22 08:53 Dose: 500 mg Docusate Sodium (Docusate Sodium 100 Mg Capsule) 100 mg PO BID [facility] Last Admin: 06/01/22 08:52 Dose: 100 mg Gabapentin (Gabapentin 400 Mg Capsule) 800 mg PO TID [facility] Last Admin: 06/01/22 08:53 Dose: 800 mg Haloperidol (Haloperidol 5 Mg Tablet) 5 mg PO BID [facility] Last Admin: 06/01/22 08:53 Dose: 5 mg Hydroxyzine HCl (Hydroxyzine Hcl 25 Mg Tablet) 25 mg PO Q6H PRN PRN Reason: Anxiety Last Admin: 05/31/22 12:40 Dose: 25 mg Lactulose (Lactulose 20 Gm/30 Ml Solution) 10 gm PO DAILY [facility] Last Admin: 06/01/22 08:52 Dose: 10 gm Lorazepam (Lorazepam 1 Mg Tablet) 1 mg PO BID [facility] Last Admin: 06/01/22 08:52 Dose: 1 mg Magnesium Hydroxide (Milk Of Magnesia 30 Ml Oral.Susp) 30 ml PO DAILY PRN PRN Reason: Constipation Last Admin: 05/27/22 13:26 Dose: 30 ml Meclizine HCl (Meclizine Hcl 25 Mg Tablet) 25 mg PO TID PRN PRN Reason: dizziness Olanzapine (Olanzapine 5 Mg Tablet) 5 mg PO Q6H PRN PRN Reason: agitation/anxiety/psychosis Last Admin: 05/29/22 19:02 Dose: 5 mg Oxybutynin Chloride (Oxybutynin Chloride Er 5 Mg Tab.Er.24) 5 mg PO DAILY [facility] Last Admin: 06/01/22 08:53 Dose: 5 mg Polyethylene Glycol (Polyethylene Glycol 3350 17 Gm Powd.Pack) 17 gm PO BID [facility] Last Admin: 06/01/22 08:53 Dose: 17 gm Pramoxine HCl (Pramoxine Hcl 1 % Rectal Foam 15 Gm) 1 appl [place] BID [facility] Last Admin: 05/31/22 21:54 Dose: Not Given Senna (Sennosides 8.6 Mg Tablet) 17.2 mg PO BEDTIME [facility] Last Admin: 05/31/22 21:05 Dose: 17.2 mg Tramadol HCl (Tramadol Hcl 50 Mg Tablet) 100 mg PO Q8H PRN PRN Reason: Pain, Moderate (Pain Scale 4-6 Last Admin: 06/01/22 09:11 Dose: 100 mg Trazodone HCl (Trazodone Hcl 50 Mg Tablet) 50 mg PO BEDTIME PRN PRN Reason: Insomnia Last Admin: 05/31/22 21:05 Dose: 50 mg Vitamin D (Cholecalciferol (Vitamin D3) 25 Mcg Tablet) 25 mcg PO DAILY [facility] Last Admin: 06/01/22 08:53 Dose: 25 mcg Allergies Allergies Allergy/AdvReac Type Severity Reaction Status Date / Time No Known Allergies Allergy Verified 05/09/22 16:08 Assessment & Plan Assessment & Plan (1) MDD (major depressive disorder), recurrent, severe, with psychosis: Status: Acute Code(s): F33.3 - Major depressive disorder, recurrent, severe with psychotic symptoms Plan 06/01/22 continue tx. Reason for contiued inpatient stay Substantial Risk for: harm to self Time Spent With Patient Time: Total time managing care of this patient today ____ minutes.
[2022-06-01] MEDS: Cyclobenzaprine HCl 10 MG TABLET PO (13:00)
[2022-06-01] MEDS: Cyanocobalamin (Vitamin B-12) 500 MCG TABLET PO (15:40)
[2022-06-01 20:50] VITALS: BP 101/58; PULSE 90; RESP 16; TEMP 36.8; O2SAT 94
[2022-06-01] MEDS: Sennosides 8.6 MG TABLET 17.2 MG PO (20:53)
[2022-06-01] MEDS: traZODone HCL 50 MG TABLET PO (20:53)
[2022-06-02 06:33] LABS: CMV DNA PCR Qn Source Whole Blood; CMV DNA Qn PCR <2.30 Detected log IU/mL; CMV DNA Qn Real Time PCR <200 Detected IU/mL
[2022-06-02 07:00] VITALS: BMI 32.5
[2022-06-02] MEDS: traMADoL HCL 50 MG TABLET 100 MG PO ×3 (07:05→23:08)
[2022-06-02 08:00] VITALS: BP 99/78; PULSE 100; RESP 18; TEMP 36.7; O2SAT 100
[2022-06-02] MEDS: HaloperidoL 5 MG TABLET PO ×2 (08:33→21:59)
[2022-06-02] MEDS: Gabapentin 400 MG CAPSULE 800 MG PO ×3 (08:34→21:59)
[2022-06-02] MEDS: LORazepam 1 MG TABLET PO ×2 (08:34→21:59)
[2022-06-02] MEDS: Benztropine Mesylate 1 MG TABLET PO ×2 (08:34→21:58)
[2022-06-02] MEDS: Cholecalciferol (Vitamin D3) 25 MCG TABLET PO (08:35)
[2022-06-02] MEDS: Cyanocobalamin (Vitamin B-12) 500 MCG TABLET PO (08:35)
--- NOTE | 2022-06-02 12:33 | P.PNPSI_ITS ---
Subjective Subjective Date of Service: 06/02/22 Reason For Visit: Si Subjective Notes: Conditional Voluntary Interim History: Pt reports sleeping on and off. She reports being worried about CPAP as she needs a new one. Pt reports hearing voices at night, no plan or intent to harm herself. Pt was more visible later in the day. No behavioral concerns. Medication Compliance: Yes Review of Systems Review of Systems Yes all other systems are reviewed and are negative Constitutional: Reports as per HPI, Reports difficulty sleeping and Reports headache(s) Eyes: Reports no additional eye complaints Reports headache(s) Cardiovascular: Denies chest pain, Denies chest pain at rest, Denies irregular heart rhythm, Denies lightheadedness and Denies dyspnea Respiratory: Denies dyspnea Gastrointestinal: Denies constipation, Denies loose stools, Denies nausea, D enies vomiting and Denies hematemesis Reports headache(s) Mental Status Exam Mental Status Exam Narrative: Appearance: wearing hospital gown, fair hyiene, in NAD behavior: cooperative Speech: clear, mild delayed in response rate, spontaneous Psychomotor: no agitation or retardation noted TP: linear TC: hearing voices, feeling overwhelmed Mood: so, so Affect: constricted, congruent SI: denies any plan or intent HI: none AH: CAH telling her to hurt herself. VH: denies Delusions: paranoid delusions Insight/judgment: fair x 2. Memory/cog: alert, oriented x 3. noticeable gaps in memory, may benefit from [place]. Diagnostics Vital Signs (24Hr): Vital Signs - 24 hr 06/02/22 21:00 06/03/22 08:00 Temperature 98.2 F 97.6 F Pulse Rate 86 76 Blood Pressure 112/62 147/69 H Pulse Oximetry 95 98 Oxygen Delivery Method Room Air Room Air BMI result Body Mass Index 32.5 Labs 05/30/22 10:32 05/30/22 10:32 Labs: Laboratory Results - last 48 hr 05/30/22 06/01/22 15:36 08:43 Total Bilirubin 0.5 Direct Bilirubin 0.2 AST 89 H ALT 236 H Alkaline Phosphatase 250 H Total Protein 5.4 L Albumin 3.2 L CMV Specimen Source Whole Blood CMV Qnt PCR IU/mL <200 Detected H CMV Qnt PCR log IU/mL <2.30 Detected H Imaging Radiology Impressions: ITS Impressions KUB X-Ray 05/30/22 10:26 IMPRESSION: 1. Mild constipation. 2. Right renal calculi. 3. Postsurgical changes left epigastric region, left midabdomen abdominal wall hernia repair and cholecystectomy. Abdomen CT 05/30/22 12:58 IMPRESSION: Noncontrast evaluation of the liver is normal. No biliary ductal dilatation. No visible choledocholithiasis. Cholecystectomy. Nonobstructing calculus lower pole right kidney. Fleischner guidelines were followed. Medications Medications Current Medications Al Hydroxide/Mg Hydroxide (Magnesium Hydrox/Alum Hydrox 30 Ml Oral.Susp) 30 ml PO Q6H PRN PRN Reason: Heartburn/Nausea Last Admin: 05/29/22 17:04 Dose: 30 ml Albuterol Sulfate (Albuterol Sulfate 90 Mcg 8 Gm Inhaler) 2 puff INHALE RQ6H PRN PRN Reason: shortness of breath or wheezing Last Admin: 05/29/22 09:50 Dose: 2 puff Benztropine Mesylate (Benztropine Mesylate 1 Mg Tablet) 1 mg PO BID REPLACED BY [facility] Last Admin: 06/03/22 08:30 Dose: 1 mg Cefuroxime Axetil (Cefuroxime Axetil 500 Mg Tablet) 500 mg PO Q12H REPLACED BY [facility] Stop: 06/07/22 07:59 Last Admin: 06/03/22 08:30 Dose: 500 mg Cyanocobalamin (Cyanocobalamin (Vitamin B-12) 500 Mcg Tablet) 500 mcg PO DAILY REPLACED BY [facility] Last Admin: 06/03/22 08:38 Dose: 500 mcg Docusate Sodium (Docusate Sodium 100 Mg Capsule) 100 mg PO BID REPLACED BY [facility] Last Admin: 06/03/22 08:38 Dose: 100 mg Gabapentin (Gabapentin 400 Mg Capsule) 800 mg PO TID REPLACED BY [facility] Last Admin: 06/03/22 08:28 Dose: 800 mg Haloperidol (Haloperidol 5 Mg Tablet) 5 mg PO BID REPLACED BY [facility] Last Admin: 06/03/22 08:38 Dose: 5 mg Hydroxyzine HCl (Hydroxyzine Hcl 25 Mg Tablet) 25 mg PO Q6H PRN PRN Reason: Anxiety Last Admin: 06/02/22 23:09 Dose: 25 mg Lactulose (Lactulose 20 Gm/30 Ml Solution) 10 gm PO DAILY REPLACED BY [facility] Last Admin: 06/03/22 08:39 Dose: Not Given Lorazepam (Lorazepam 1 Mg Tablet) 1 mg PO BID REPLACED BY [facility] Last Admin: 06/03/22 08:38 Dose: 1 mg Magnesium Hydroxide (Milk Of Magnesia 30 Ml Oral.Susp) 30 ml PO DAILY PRN PRN Reason: Constipation Last Admin: 05/27/22 13:26 Dose: 30 ml Meclizine HCl (Meclizine Hcl 25 Mg Tablet) 25 mg PO TID PRN PRN Reason: dizziness Olanzapine (Olanzapine 5 Mg Tablet) 5 mg PO Q6H PRN PRN Reason: agitation/anxiety/psychosis Last Admin: 06/03/22 09:04 Dose: 5 mg Oxybutynin Chloride (Oxybutynin Chloride Er 5 Mg Tab.Er.24) 5 mg PO DAILY REPLACED BY [facility] Last Admin: 06/03/22 08:29 Dose: 5 mg Polyethylene Glycol (Polyethylene Glycol 3350 17 Gm Powd.Pack) 17 gm PO BID REPLACED BY [facility] Last Admin: 06/03/22 08:39 Dose: Not Given Pramoxine HCl (Pramoxine Hcl 1 % Rectal Foam 15 Gm) 1 appl [place] BID REPLACED BY [facility] Last Admin: 06/03/22 08:39 Dose: Not Given Senna (Sennosides 8.6 Mg Tablet) 17.2 mg PO BEDTIME REPLACED BY [facility] Last Admin: 06/02/22 22:00 Dose: 17.2 mg Tramadol HCl (Tramadol Hcl 50 Mg Tablet) 100 mg PO Q8H PRN PRN Reason: Pain, Moderate (Pain Scale 4-6 Last Admin: 06/03/22 08:36 Dose: 100 mg Trazodone HCl (Trazodone Hcl 50 Mg Tablet) 50 mg PO BEDTIME PRN PRN Reason: Insomnia Last Admin: 06/02/22 23:09 Dose: 50 mg Vitamin D (Cholecalciferol (Vitamin D3) 25 Mcg Tablet) 25 mcg PO DAILY REPLACED BY [facility] Last Admin: 06/03/22 08:32 Dose: 25 mcg Allergies Allergies Allergy/AdvReac Type Severity Reaction Status Date / Time No Known Allergies Allergy Verified 05/09/22 16:08 Assessment & Plan Assessment & Plan (1) MDD (major depressive disorder), recurrent, severe, with psychosis: Status: Acute Code(s): F33.3 - Major depressive disorder, recurrent, severe with psychotic symptoms Plan 06/01/22 continue tx. 2/ continue tx. Reason for contiued inpatient stay Substantial Risk for: stable for discharge Time Spent With Patient Time: Total time managing care of this patient today ____ minutes.
[2022-06-02 21:00] VITALS: BP 112/62; PULSE 86; TEMP 36.8; O2SAT 95
[2022-06-02] MEDS: Docusate Sodium 100 MG CAPSULE PO (21:58)
[2022-06-02] MEDS: Sennosides 8.6 MG TABLET 17.2 MG PO (22:00)
[2022-06-02] MEDS: hydrOXYzine HCL 25 MG TABLET PO (23:09)
[2022-06-02] MEDS: traZODone HCL 50 MG TABLET PO (23:09)
[2022-06-03 08:00] VITALS: BP 147/69; PULSE 76; TEMP 36.4; O2SAT 98
[2022-06-03] MEDS: Gabapentin 400 MG CAPSULE 800 MG PO (08:28)
[2022-06-03] MEDS: Benztropine Mesylate 1 MG TABLET PO (08:30)
[2022-06-03] MEDS: Cholecalciferol (Vitamin D3) 25 MCG TABLET PO (08:32)
[2022-06-03] MEDS: traMADoL HCL 50 MG TABLET 100 MG PO (08:36)
[2022-06-03] MEDS: Docusate Sodium 100 MG CAPSULE PO (08:38)
[2022-06-03] MEDS: HaloperidoL 5 MG TABLET PO (08:38)
[2022-06-03] MEDS: Cyanocobalamin (Vitamin B-12) 500 MCG TABLET PO (08:38)
[2022-06-03] MEDS: LORazepam 1 MG TABLET PO (08:38)
[2022-06-03] MEDS: OLANZapine 5 MG TABLET PO (09:04)
--- NOTE | 2022-06-03 09:54 | PC.RT ---
pttobe discharged today per Director of Behavioral. pt has an old [facility] Cpap machine. pt cpap was inspected and was shown it had mold, therefore she was put on the [place] [facility] [employer] [facility] cpap machine. I did receive her sleep study yesterday from [facility] medical records and it showed her last sleep study was in 2014.After discussing with our DME Boby, he stated that she would need a new sleep study in order to get a new cpap machine. I gave the RN Lisa Aivna and she was going to give to Patsy Sherwood so she can fax over to the patients primary MD so they can schedule and outpatient sleep study.
--- NOTE | 2022-06-03 09:56 | PM.PSYDC ---
DS: Providers Provider Date of Service: 06/03/22 Date of admission: 05/19/22 21:20 Primary care physician: Hung Montelongo MD Consults: 05/30/22 11:12 Consult to Hospitalist Stat Consulting Provider: Hospitalist Reason For Exam: LFT elevation, L flank pain DS: Diagnosis Discharge Diagnosis (1) MDD (major depressive disorder), recurrent, severe, with psychosis: Status: Acute DS: Medications Discharge Medications Home Medications: Home Medications Medication Instructions Recorded Confirmed cholecalciferol (vitamin D3) 25 1 cap PO DAILY 05/19/22 05/19/22 mcg (1,000 unit) capsule (Vitamin D3) gabapentin 800 mg tablet 1 tab PO TID 05/19/22 05/19/22 Previous Rx's Medication Instructions Recorded albuterol sulfate 90 mcg/actuation 2 puff inhalation Q6H PRN 10/27/21 aerosol inhaler (ProAir HFA) shortness of breath or wheezing 30 days #8.5 grams benztropine 1 mg tablet 1 mg PO BID #30 tabs 06/03/22 cefuroxime axetil 500 mg tablet 500 mg PO Q12H #10 tabs 06/03/22 cyanocobalamin (vitamin B-12) 500 500 mcg PO DAILY #30 tabs 06/03/22 mcg tablet docusate sodium 100 mg capsule 100 mg PO BID #60 caps 06/03/22 gabapentin 400 mg capsule 800 mg PO TID #0 caps 06/03/22 haloperidol 5 mg tablet 5 mg PO BID #60 tabs 06/03/22 lorazepam 1 mg tablet 1 mg PO BID #60 tabs 06/03/22 polyethylene glycol 3350 17 gram 17 g PO BID #0 ea 06/03/22 oral powder packet sennosides 8.6 mg tablet (Senna 17.2 mg PO BEDTIME #30 tabs 06/03/22 Lax) tramadol 100 mg tablet 100 mg PO Q8H PRN Pain, Moderate 06/03/22 (Pain Scale 4-6 #20 tabs trazodone 50 mg tablet 50 mg PO BEDTIME PRN Insomnia #30 06/03/22 tabs Mental Status Exam Mental Status Exam Narrative: Appearance: wearing hospital gown, fair hyiene, in NAD behavior: cooperative Speech: clear, mild delayed in response rate, spontaneous Psychomotor: no agitation or retardation noted TP: linear TC: hearing voices, feeling overwhelmed Mood: so, so Affect: constricted, congruent SI: denies any plan or intent HI: none AH: CAH telling her to hurt herself. VH: denies Delusions: paranoid delusions Insight/judgment: fair x 2. Memory/cog: alert, oriented x 3. Data Data Completed and Pending Completed studies during hospitalization [Text1]: 05/29/22 05/29/22 05/30/22 09:52 21:59 10:32 WBC 3.4 L RBC 4.12 L Hgb 13.7 Hct 41.8 MCV 101.5 H MCH 33.3 H MCHC 32.8 RDW 11.7 Plt Count 239 MPV 9.2 L Immature Gran % (Auto) 0.3 Neut % (Auto) 62.5 Lymph % (Auto) 25.9 [place] % (Auto) 8.3 Eos % (Auto) 2.1 Baso % (Auto) 0.9 Lymph # (Auto) 0.9 L [place] # (Auto) 0.3 Eos # (Auto) 0.1 Baso # (Auto) 0.0 Abs Immat Gran (auto) 0.01 Absolute Neuts (auto) 2.1 Absolute Nucleated RBC 0.000 Nucleated RBC % (auto) 0.0 PT INR Sodium Potassium Chloride Carbon Dioxide Anion Gap BUN Creatinine Estim Creat Clear Calc Estimated GFR POC Glucose 121 H Fasting Glucose Calcium Total Bilirubin Direct Bilirubin GGT AST ALT Alkaline Phosphatase Ammonia Lactate Dehydrogenase Total Creatine Kinase Total Protein Albumin Lipase Urine Color Urine Appearance Urine pH Ur Specific [place] Urine Protein Urine Glucose (UA) Urine Ketones Urine Blood Urine Nitrite Ur Leukocyte Esterase Urine RBC Urine WBC Ur Squamous Epith Cells Urine Bacteria Hyaline Casts Acetaminophen COVID-19 (JUANJO) Negative COVID-19 Clin Com See Note CMV Specimen Source CMV Qnt PCR IU/mL CMV Qnt PCR log IU/mL EBV Capsid Ag IgG Ab EBV Capsid Ag IgM Index EBV Nuclear Ag IgG Indx EBV Antibody Interp Hepatitis A IgM Ab Hep Bs Antigen Hep Bs Antibody Hep B Core Total Ab Hepatitis C Ab (EIA) 05/30/22 05/30/22 05/30/22 10:32 10:32 10:32 WBC RBC Hgb Hct MCV MCH MCHC RDW Plt Count MPV Immature Gran % (Auto) Neut % (Auto) Lymph % (Auto) [place] % (Auto) Eos % (Auto) Baso % (Auto) Lymph # (Auto) [place] # (Auto) Eos # (Auto) Baso # (Auto) Abs Immat Gran (auto) Absolute Neuts (auto) Absolute Nucleated RBC Nucleated RBC % (auto) PT INR Sodium 142 Potassium 3.9 Chloride 106 Carbon Dioxide 28 Anion Gap 12 BUN 12 Creatinine 0.99 Estim Creat Clear Calc 67.3 Estimated GFR 59 POC Glucose Fasting Glucose 171 H Calcium 8.7 Total Bilirubin 0.5 Direct Bilirubin GGT AST 602 H ALT 524 H Alkaline Phosphatase 304 H Ammonia 48 Lactate Dehydrogenase Total Creatine Kinase Total Protein 5.6 L Albumin 3.3 L Lipase 10 Urine Color Urine Appearance Urine pH Ur Specific [place] Urine Protein Urine Glucose (UA) Urine Ketones Urine Blood Urine Nitrite Ur Leukocyte Esterase Urine RBC Urine WBC Ur Squamous Epith Cells Urine Bacteria Hyaline Casts Acetaminophen COVID-19 (JUANJO) COVID-19 Clin Com CMV Specimen Source CMV Qnt PCR IU/mL CMV Qnt PCR log IU/mL EBV Capsid Ag IgG Ab EBV Capsid Ag IgM Index EBV Nuclear Ag IgG Indx EBV Antibody Interp Hepatitis A IgM Ab Nonreactive Hep Bs Antigen Negative Hep Bs Antibody NONREACTIVE Hep B Core Total Ab Nonreactive Hepatitis C Ab (EIA) Nonreactive 05/30/22 05/30/22 05/30/22 15:36 15:36 15:36 WBC RBC Hgb Hct MCV MCH MCHC RDW Plt Count MPV Immature Gran % (Auto) Neut % (Auto) Lymph % (Auto) [place] % (Auto) Eos % (Auto) Baso % (Auto) Lymph # (Auto) [place] # (Auto) Eos # (Auto) Baso # (Auto) Abs Immat Gran (auto) Absolute Neuts (auto) Absolute Nucleated RBC Nucleated RBC % (auto) PT 10.7 INR 0.9 Sodium Potassium Chloride Carbon Dioxide Anion Gap BUN Creatinine Estim Creat Clear Calc Estimated GFR POC Glucose Fasting Glucose Calcium Total Bilirubin Direct Bilirubin GGT 410 H AST ALT Alkaline Phosphatase Ammonia Lactate Dehydrogenase 514 H Total Creatine Kinase 45 Total Protein Albumin Lipase Urine Color Urine Appearance Urine pH Ur Specific [place] Urine Protein Urine Glucose (UA) Urine Ketones Urine Blood Urine Nitrite Ur Leukocyte Esterase Urine RBC Urine WBC Ur Squamous Epith Cells Urine Bacteria Hyaline Casts Acetaminophen < 17 COVID-19 (JUANJO) COVID-19 Clin Com CMV Specimen Source CMV Qnt PCR IU/mL CMV Qnt PCR log IU/mL EBV Capsid Ag IgG Ab 202.00 H EBV Capsid Ag IgM Index <36.00 EBV Nuclear Ag IgG Indx 580.00 H EBV Antibody Interp SEE NOTE Hepatitis A IgM Ab Hep Bs Antigen Hep Bs Antibody Hep B Core Total Ab Hepatitis C Ab (EIA) 05/30/22 05/30/22 05/30/22 15:36 15:36 16:35 WBC RBC Hgb Hct MCV MCH MCHC RDW Plt Count MPV Immature Gran % (Auto) Neut % (Auto) Lymph % (Auto) [place] % (Auto) Eos % (Auto) Baso % (Auto) Lymph # (Auto) [place] # (Auto) Eos # (Auto) Baso # (Auto) Abs Immat Gran (auto) Absolute Neuts (auto) Absolute Nucleated RBC Nucleated RBC % (auto) PT INR Sodium Potassium Chloride Carbon Dioxide Anion Gap BUN Creatinine Estim Creat Clear Calc Estimated GFR POC Glucose Fasting Glucose Calcium Total Bilirubin 0.7 Direct Bilirubin 0.2 GGT AST 435 H ALT 530 H Alkaline Phosphatase 335 H Ammonia Lactate Dehydrogenase Total Creatine Kinase Total Protein 6.5 Albumin 3.8 Lipase Urine Color Yellow Urine Appearance Clear Urine pH 6.5 Ur Specific [place] 1.010 Urine Protein Negative Urine Glucose (UA) Negative Urine Ketones Negative Urine Blood Trace H Urine Nitrite Positive H Ur Leukocyte Esterase Small (1+) H Urine RBC 3-5 H Urine WBC 0-5 Ur Squamous Epith Cells 0-2 Urine Bacteria 4+ Hyaline Casts 0-2 Acetaminophen COVID-19 (JUANJO) COVID-19 Clin Com CMV Specimen Source Whole Blood CMV Qnt PCR IU/mL <200 Detected H CMV Qnt PCR log IU/mL <2.30 Detected H EBV Capsid Ag IgG Ab EBV Capsid Ag IgM Index EBV Nuclear Ag IgG Indx EBV Antibody Interp Hepatitis A IgM Ab Hep Bs Antigen Hep Bs Antibody Hep B Core Total Ab Hepatitis C Ab (EIA) 05/31/22 05/31/22 06/01/22 09:09 09:09 08:43 WBC RBC Hgb Hct MCV MCH MCHC RDW Plt Count MPV Immature Gran % (Auto) Neut % (Auto) Lymph % (Auto) [place] % (Auto) Eos % (Auto) Baso % (Auto) Lymph # (Auto) [place] # (Auto) Eos # (Auto) Baso # (Auto) Abs Immat Gran (auto) Absolute Neuts (auto) Absolute Nucleated RBC Nucleated RBC % (auto) PT INR Sodium Potassium Chloride Carbon Dioxide Anion Gap BUN Creatinine Estim Creat Clear Calc Estimated GFR POC Glucose Fasting Glucose Calcium Total Bilirubin 0.8 Cancelled 0.5 Direct Bilirubin 0.3 Cancelled 0.2 GGT AST 149 H Cancelled 89 H ALT 313 H Cancelled 236 H Alkaline Phosphatase 248 H Cancelled 250 H Ammonia Lactate Dehydrogenase Total Creatine Kinase Total Protein 5.4 L Cancelled 5.4 L Albumin 3.2 L Cancelled 3.2 L Lipase Urine Color Urine Appearance Urine pH Ur Specific [place] Urine Protein Urine Glucose (UA) Urine Ketones Urine Blood Urine Nitrite Ur Leukocyte Esterase Urine RBC Urine WBC Ur Squamous Epith Cells Urine Bacteria Hyaline Casts Acetaminophen COVID-19 (JUANJO) COVID-19 Clin Com CMV Specimen Source CMV Qnt PCR IU/mL CMV Qnt PCR log IU/mL EBV Capsid Ag IgG Ab EBV Capsid Ag IgM Index EBV Nuclear Ag IgG Indx EBV Antibody Interp Hepatitis A IgM Ab Hep Bs Antigen Hep Bs Antibody Hep B Core Total Ab Hepatitis C Ab (EIA) 05/30/22 17:00 Urine clean catch - Urine bautista top Urine Culture - Final Escherichia coli 05/19/22 Unknown Urine clean catch - Urine bautista top Urine Culture - Final Escherichia coli Imaging Diagnostic Imaging Impressions KUB X-Ray 05/30/22 10:26 IMPRESSION: 1. Mild constipation. 2. Right renal calculi. 3. Postsurgical changes left epigastric region, left midabdomen abdominal wall hernia repair and cholecystectomy. Abdomen CT 05/30/22 12:58 IMPRESSION: Noncontrast evaluation of the liver is normal. No biliary ductal dilatation. No visible choledocholithiasis. Cholecystectomy. Nonobstructing calculus lower pole right kidney. Fleischner guidelines were followed. DS: Summary Hospital Course Hospital Course: Subjective Notes: [place] Warning (given and shows understanding) and Conditional Voluntary Narrative: Mrs. Siu is a 51 year-old woman with hx of MDD with psychosis versus schizophrenia who was assessed in her home by [facility] after her contacted crisis after finding pt holding metal nail file pointed at herself and reporting command auditory hallucinations telling her to harm herself. In the ED- utox is negative. Pt is known to this unit and M5 through previous admission with similar presentation. Per [facility] report, pt's son recently was deployed to [place] in 03/2022 and this has been difficult for pt. On the unit, pt reports feeling very anxious. She reports voices increasing in the past few days telling her to harm herself. Pt denies any intent to do so but does note that at home she wouldn't stop herself as she just wanted the voices to stop. She reports poor sleep. She reports fair appetite. She reports taking medications as prescribed which have not been changed recently. Pt reports she can't remember what medications she takes and asks this music writer to speak with her for further information. Past Psychiatric History: -Pt has OP psych services at [facility], psychiatrist is Dr. Maya Kathleen -Hx of? multiple psych admissions since 2008. Multiple previous admissions to [facility]. -Hx of presenting to crisis due to SI, CAH -Hx of SI and SIB via superficial cutting. Her dispenses her medications due to long hx of SI with plan to OD on meds (pt has endorsed several plans in the past) -Per chart, pt has long hx of chronic CAH but she has been able to manage them with medication and support. -Past med trials: venlafaxine (d/c at hospital), Abilify (not effective), seroquel, latuda ([place] not covered) HOSPITAL COURSE On the unit, pt was admitted on a CV and placed on 15 minutes checks for safety. Pt reported hearing voices, feeling anxious, intermittent SI. No plan or intent. We discussed risks, benefits and alternative treatment options, pt was continued on haldol 5mg po BID. Clonazepam was switched to ativan. Her affect gradually presented as brighter. Pt was sleeping and eating well. No SI/HI. She reported intermittent auditory hallucinations but with less intensity. Pt had elevated LFTs, followed up by hospitalist while on the unit- it appeared could have been related to restarting atorvastatin, which apparently had been discontinued. She had UTI- started on ceftin. Also, pt used hospital CPAP as her own has mold. Pt has follow up appointment with her PCP for new sleep study. This music writer communicated this information to Dr. Montelongo. Time spent discussing smoking cessation with patient: 3 to 10 minutes Status at Discharge Cognitive/behavioral status at discharge: Pt with brighter, still constricted affect. No SI/HI. Less voices. No overt delusions. No signs of aggression towards self or others. Pt future oriented, looking forward to see family and continue OP treatment. Functional status at discharge: independent ambulation Overall status at discharge: patient is progressing back to baseline Time Spent with Patient Time attestation: Total time managing care of this patient today ____ minutes. Discharge Plan Discharge Anticipated Discharge Date/Time: 06/03/22 09:35 Patient Disposition: Home, Self-Care Discharge Diagnosis: MDD with psychosis Referrals: [facility] [Other] - 06/06/22 1:15 pm (Therapy appointment in person) [facility] [Other] - 07/04/22 1:45 pm (Psychiatry appointment in person) Hung Montelongo MD [Primary Care Provider] - 06/16/22 9:00 am Discharge Medications: New haloperidol 5 mg Tablet 5 mg PO BID Qty: 60 0RF trazodone 50 mg Tablet 50 mg PO BEDTIME PRN (Reason: Insomnia) Qty: 30 0RF gabapentin 400 mg Capsule 800 mg PO TID Qty: 0 0RF benztropine 1 mg Tablet 1 mg PO BID Qty: 30 0RF lorazepam 1 mg Tablet 1 mg PO BID Qty: 60 0RF cefuroxime axetil 500 mg Tablet 500 mg PO Q12H Qty: 10 0RF tramadol 100 mg tablet 100 mg PO Q8H PRN (Reason: Pain, Moderate (Pain Scale 4-6) Qty: 20 0RF sennosides [Senna Lax] 8.6 mg Tablet 17.2 mg PO BEDTIME Qty: 30 0RF polyethylene glycol 3350 17 gram Powder In Packet 17 g PO BID Qty: 0 0RF cyanocobalamin (vitamin B-12) 500 mcg Tablet 500 mcg PO DAILY Qty: 30 0RF docusate sodium 100 mg Capsule 100 mg PO BID Qty: 60 0RF Continued albuterol sulfate [ProAir HFA] 90 mcg/actuation HFA aerosol inhaler 2 puff inhalation Q6H PRN (Reason: shortness of breath or wheezing) 30 Days Qty: 8.5 5RF gabapentin 800 mg tablet 1 tab PO TID cholecalciferol (vitamin D3) [Vitamin D3] 25 mcg (1,000 unit) capsule 1 cap PO DAILY Discontinued benztropine 1 mg tablet 1 tab PO BID clonazepam 0.5 mg tablet 0.5 mg PO BID PRN (Reason: Anxiety) meclizine 25 mg tablet 25 mg PO TID PRN (Reason: dizziness) sennosides [Senna Lax] 8.6 mg tablet 17.2 mg PO BEDTIME 30 Days Qty: 60 4RF haloperidol 5 mg tablet 5 mg PO BID atorvastatin 10 mg tablet 10 mg PO BEDTIME oxybutynin chloride 5 mg tablet extended release 24hr 5 mg PO DAILY 90 Days Qty: 90 1RF Discharge Orders: Discharge Order (Routine); Ordered 06/03/22 Ordered By: Patsy Pollard Diet: Regular diet Activity on Discharge: As tolerated Stand Alone Forms: Patient Portal Discharge page Care Plan Goals: 1. Maintain mood 2. No SI/HI 3. Less voices. Health Concerns: Pt had elevated LFTs, trending down. UTI. Needs new CPAP, first new sleep study. This music writer sent message to Dr. Montelongo with update. Plan of Treatment: 1. Take medications as prescribed. 2. Go to nearest ED or call 911 in event of emergency. Assessment: Pt with slightly brighter, but constricted affect. No SI/HI. Less AH/VH. Pt future oriented looking forward to continue tx and see family. No signs of aggression towards self or others.
== END 2022-06-03 11:03 | disposition home or self-care (01) | DRG 751 ==
LOC: HO.ED 21:09 → HO.PADLT16 21:30
PROVIDERS: Nurse Practitioner Acute Care; Physician Assistant Medical; Psychiatry & Neurology Psychiatry; Admitting Provider Social Worker; Emergency Provider Emergency Medicine; PCP Internal Medicine; Visit Provider Social Worker
DX: F33.3 Major depressive disorder, recurrent, severe with psychotic symptoms (principal); R45.851 Suicidal ideations; B96.20 Unspecified Escherichia coli [E. coli] as the cause of diseases classified elsewhere; N39.0 Urinary tract infection, site not specified; F43.11 Post-traumatic stress disorder, acute; G47.33 Obstructive sleep apnea (adult) (pediatric); Z20.822 Contact with and (suspected) exposure to COVID-19; Z90.5 Acquired absence of kidney; Z98.84 Bariatric surgery status; Z79.899 Other long term (current) drug therapy
CPT/HCPCS: 0241U; 36415; 74018; 74150; 80053; 80061; 80076; 80143; 80307; 81001; 82077; 82140; 82550; 82607; 82746; 82947; 82977; 83036; 83615; 83690; 83735; 84443; 84702; 85025; 85610; 86664; 86665; 86704; 86706; 86709; 86803; 87086; 87088; 87186; 87340; 87497; 87635; 93005; 94660; 99285

== ENCOUNTER → 2022-06-13 13:16 | Outpatient (BNVA) | payer OTHER, SELFPAY | PROVIDERS: PCP Internal Medicine; Visit Provider Physician Assistant Surgical | DX: E66.9 Obesity, unspecified (principal); Z98.84 Bariatric surgery status; Z68.30 Body mass index [BMI] 30.0-30.9, adult | CPT/HCPCS: 99212 ==

== ENCOUNTER 2022-06-16 13:07 | Outpatient (REF) | payer OTHER, SELFPAY | END 2022-06-16 13:08 | disposition home or self-care (01) | LOC: HO.LAB 13:07 | PROVIDERS: PCP Internal Medicine; Visit Provider Nurse Practitioner Family | DX: R35.0 Frequency of micturition (principal); N39.0 Urinary tract infection, site not specified; N28.1 Cyst of kidney, acquired; N20.0 Calculus of kidney | CPT/HCPCS: 51798; 87086; 87088; 87186; 99212 ==

== ENCOUNTER 2022-06-27 12:38 | Outpatient (REF) | payer OTHER, SELFPAY ==
[2022-06-27 14:59] LABS: Ferritin 575 ng/mL (10-250); Gamma Glutamyl Transpeptidase 67 U/L (7-33)
[2022-06-27 15:06] LABS: Alanine Aminotransferase 15 U/L (0-31); Albumin Level 3.7 g/dL (3.5-5.0); Alkaline Phosphatase 116 U/L (39-117); Aspartate Amino Transferase 15 U/L (5-31); Bilirubin Direct < 0.2 mg/dL (0.0-0.5); Bilirubin Total 0.5 mg/dL (0.0-1.0); Iron 65 mcg/dL (30-160); Lipase 13 U/L (8-78); Percent Iron Saturation 32 % (15-50); Total Iron Binding Capacity 205 mcg/dL (228-428); Total Protein 6.2 g/dL (6.5-8.0); Unsaturated Iron Binding 140 ug/dL
[2022-06-27 15:14] LABS: Folate 8.5 ng/mL (> or = 4.0); Vitamin B12 1474 pg/mL (200-900); Vitamin D 25-OH Total 32.6 ng/mL (>30)
[2022-06-28 13:58] LABS: Alpha Fetoprotein 2.1 ng/mL
[2022-06-29 17:24] LABS: Zinc 55 mcg/dL (60-130)
[2022-06-30 04:34] LABS: Vitamin A 53 mcg/dL (38-98)
[2022-06-30 10:29] LABS: Ceruloplasmin 30 mg/dL (18-53)
[2022-07-01 18:59] LABS: FIB-ALT 15 U/L (6-29); FIB-Alpha-2-Macroglobulin 192 mg/dL (106-279); FIB-Apolipoprotein A1 161 mg/dL (101-198); FIB-GGT 51 U/L (3-70); FIB-Haptoglobin 163 mg/dL (43-212); FIB-Total Bilirubin 0.4 mg/dL (0.2-1.2); Liver Fibrosis Score 0.14; Liver Fibrosis Stage F0; Nec Inflam Act Grade A0; Nec Inflam Act Score 0.04
[2022-07-02 10:14] LABS: Vitamin B1 12 nmol/L (8-30)
== END 2022-06-27 12:39 | disposition home or self-care (01) ==
LOC: HO.LAB 12:38
PROVIDERS: Physician Assistant Surgical; PCP Internal Medicine; Referring Provider Internal Medicine; Visit Provider Nurse Practitioner Family
DX: R74.8 Abnormal levels of other serum enzymes (principal); R10.9 Unspecified abdominal pain; K92.2 Gastrointestinal hemorrhage, unspecified; R74.01 Elevation of levels of liver transaminase levels; K59.09 Other constipation; K21.9 Gastro-esophageal reflux disease without esophagitis; R79.89 Other specified abnormal findings of blood chemistry; Z98.84 Bariatric surgery status
CPT/HCPCS: 36415; 80076; 81596; 82105; 82306; 82390; 82607; 82728; 82746; 82977; 83540; 83690; 84134; 84425; 84590; 84630; 99212

== ENCOUNTER → 2022-07-06 14:30 | Outpatient (BNVA) | payer OTHER, SELFPAY | PROVIDERS: PCP Internal Medicine; Visit Provider Anesthesiology ==

== ENCOUNTER 2022-07-13 05:50 | Day surgery (SDC) | payer OTHER, SELFPAY ==
[2022-07-07 14:11] VITALS: BMI 31.5
--- NOTE | 2022-07-12 13:40 | HO.ANESPROP2 ---
Documented by User: Yanet Brunner NP 07/12/22 13:42 HPI - Anesthesia Eval Consult details Narrative: 51yo F for Right ESWL PMFSH Active Problems Active Problems: All Active Problems (Updated 06/16/22 @ 14:00 by ANNA Hughes) Overweight (BMI 25.0-29.9) (Acute) Urinary tract infection (Acute) Dysuria (Acute) Skin laxity (Acute) Painful sexual intercourse (Acute) Dyspareunia, female (Acute) Nephrolithiasis (Acute) Constipation (Acute) Colon cancer screening (Acute) Overweight (Acute) Sacroiliac joint pain (Acute) Left lumbar radiculopathy (Acute) Memory impairment (Acute) Renal cyst (Acute) Transaminitis (Acute) Elevated LFTs (Acute) Abdominal wall mass (Acute) Annual physical exam (Acute) Bilateral elbow joint pain (Acute) Hip pain, bilateral (Acute) Knee pain, bilateral (Acute) Arthralgia (Acute) UTI (urinary tract infection) (Acute) Post traumatic stress disorder (PTSD) (Acute) MDD (major depressive disorder), recurrent, severe, with psychosis (Acute) Encounter to discuss test results (Acute) Urinary frequency (Acute) Urinary incontinence (Acute) Excess skin (Acute) Renal calculus, right (Acute) MIGUEL (obstructive sleep apnea) (Acute) Obesity (BMI 30-39.9) (Acute) Renal cyst (Acute) Diverticulosis (Acute) Tubular adenoma (Acute) Spondylosis of lumbar spine (Acute) Sacroiliitis (Acute) Dizziness of unknown etiology (Acute) Chronic constipation (Acute) History of gastric bypass (Acute ~2008) Dyspareunia (Acute) Pyelonephritis (Acute) Ingrown toenail (Acute) Iron deficiency anemia (Acute) Major depression, recurrent (Acute) Anxiety (Acute) Insomnia (Acute) Tremor (Acute) Orthostatic hypotension (Acute) Incisional hernia without obstruction or gangrene (Acute) Avascular necrosis of femoral head (Acute) Bilateral carpal tunnel syndrome (Acute) Peroneal neuropathy (Acute) Lumbar degenerative disc disease (Acute) Vitamin D deficiency (Acute) GERD (gastroesophageal reflux disease) (Acute) Migraine (Acute) Hyperlipidemia (Acute) Past Medical History Medical History (Updated 06/16/22 @ 14:00 by ANNA Hughes) Anxiety Asthma Avascular necrosis of femoral head Bilateral carpal tunnel syndrome Chronic constipation Diverticulosis Dizziness of unknown etiology Dyspareunia GERD (gastroesophageal reflux disease) Hx of schizophrenia Hyperlipidemia Incisional hernia without obstruction or gangrene Ingrown toenail Insomnia Iron deficiency anemia Lumbar degenerative disc disease Major depression, recurrent Migraine Obesity (BMI 30-39.9) Orthostatic hypotension MIGUEL (obstructive sleep apnea) Panic attacks Peroneal neuropathy PTSD (post-traumatic stress disorder) Pyelonephritis Renal cyst Sacroiliitis Spondylosis of lumbar spine Tremor Tubular adenoma Vitamin D deficiency Family History Family History Father Liver cancer Mother Breast cancer Maternal Grandmother Breast cancer Sister Lung cancer Other Mental health problem Family history of problems with anesthesia: No Surgical History Surgical History (Updated 07/07/22 @ 14:00 by Deneen Bunn RN) H/O left nephrectomy History of bilateral breast reduction surgery History of bladder repair surgery (~03/2015) History of bladder surgery (~10/2009) History of cholecystectomy History of colonoscopy History of endoscopy (~06/2016) History of gastric bypass (~2008) History of hernia repair (~03/29/10) History of hysterectomy History of incisional hernia repair (~1999) History of surgery Hx of cystoscopy Hx of umbilical hernia repair (~1999) S/P cystoscopy (~07/30/12) S/P laparoscopic sleeve gastrectomy S/P panniculectomy History of Problems with Anesthesia: No Social History Social History Household Members: Spouse and Family Housing: House Do you presently have visiting nurse or other home services: Yes Alcohol intake: never Patient Tobacco Use Status: Never used Tobacco e-Cigarette/Vaping Use: Never Used Second Hand Smoke Exposure: No Use of substances other than those prescribed or required for medical reasons: No Are you DNR?: No Advance Directives: Yes Advance Directives Information Provided: No Advance Directives on File: Yes Advance Directives Date on File: 07/12/21 service: No Current occupational status: disabled Sexual orientation: Straight/Heterosexual Cognitive needs: No Hearing needs: No Vision needs: Yes Meds Allergies Allergy/AdvReac Type Severity Reaction Status Date / Time acetaminophen AdvReac Unknown Unknown Verified 06/27/22 12:51 Home Medications Medication Instructions Recorded Confirmed Last Taken Type cholecalciferol (vitamin D3) 25 1 cap PO DAILY 05/19/22 07/13/22 Unknown History mcg (1,000 unit) capsule (Vitamin D3) clonazepam 0.5 mg tablet 0.5 mg PO BID 06/13/22 07/13/22 07/13/22 History haloperidol 5 mg tablet 5 mg PO BID 06/27/22 07/13/22 07/13/22 History lamotrigine 25 mg tablet 25 mg PO BEDTIME 06/27/22 07/13/22 Unknown History naproxen 500 mg tablet 500 mg PO BID 06/27/22 07/13/22 Unknown History prazosin 1 mg capsule 1 mg PO BEDTIME nightmares 06/27/22 07/13/22 Unknown History risperidone 1 mg tablet 1 mg PO BEDTIME 06/27/22 07/13/22 Unknown History Exam Exam Date and Time: July 12, 2022 1340 Height,Weight and Vital Signs: Height 5 ft 3 in Weight 80.739 kg Pertinent Lab Results Pertinent Lab Results: Laboratory Tests 05/30/22 05/30/22 10:32 10:32 WBC 3.4 L Hgb 13.7 Hct 41.8 Plt Count 239 Sodium 142 Potassium 3.9 Chloride 106 Carbon Dioxide 28 BUN 12 Creatinine 0.99 Narrative Narrative: EKG 05/2022 Normal sinus rhythm Normal ECG When compared with ECG of 29-OCT-2021 11:59, No significant change was found Assessment and Plan Assessment Anesthesia Assessment: Chart Reviewed Final Anesthetic Review Family History of Problems with Anesthesia: No History of Problems with Anesthesia: No Documented by User: Ambrocio Taylor MD 07/13/22 08:00 [facility] Past Medical History Medical History (Updated 06/16/22 @ 14:00 by ANNA Hughes) Anxiety Asthma Avascular necrosis of femoral head Bilateral carpal tunnel syndrome Chronic constipation Diverticulosis Dizziness of unknown etiology Dyspareunia GERD (gastroesophageal reflux disease) Hx of schizophrenia Hyperlipidemia Incisional hernia without obstruction or gangrene Ingrown toenail Insomnia Iron deficiency anemia Lumbar degenerative disc disease Major depression, recurrent Migraine Obesity (BMI 30-39.9) Orthostatic hypotension MIGUEL (obstructive sleep apnea) Panic attacks Peroneal neuropathy PTSD (post-traumatic stress disorder) Pyelonephritis Renal cyst Sacroiliitis Spondylosis of lumbar spine Tremor Tubular adenoma Vitamin D deficiency Family History Family History Father Liver cancer Mother Breast cancer Maternal Grandmother Breast cancer Sister Lung cancer Other Mental health problem Surgical History Surgical History (Updated 07/07/22 @ 14:00 by Deneen Bunn RN) H/O left nephrectomy History of bilateral breast reduction surgery History of bladder repair surgery (~03/2015) History of bladder surgery (~10/2009) History of cholecystectomy History of colonoscopy History of endoscopy (~06/2016) History of gastric bypass (~2008) History of hernia repair (~03/29/10) History of hysterectomy History of incisional hernia repair (~1999) History of surgery Hx of cystoscopy Hx of umbilical hernia repair (~1999) S/P cystoscopy (~07/30/12) S/P laparoscopic sleeve gastrectomy S/P panniculectomy Social History Social History Household Members: Spouse and Family Housing: House Do you presently have visiting nurse or other home services: Yes Alcohol intake: never Patient Tobacco Use Status: Never used Tobacco e-Cigarette/Vaping Use: Never Used Second Hand Smoke Exposure: No Use of substances other than those prescribed or required for medical reasons: No Are you DNR?: No Advance Directives: Yes Advance Directives Information Provided: No Advance Directives on File: Yes Advance Directives Date on File: 07/12/21 service: No Current occupational status: disabled Sexual orientation: Straight/Heterosexual Cognitive needs: No Hearing needs: No Vision needs: Yes Meds Allergies Allergy/AdvReac Type Severity Reaction Status Date / Time acetaminophen AdvReac Unknown Unknown Verified 06/27/22 12:51 Home Medications Medication Instructions Recorded Confirmed Last Taken Type cholecalciferol (vitamin D3) 25 1 cap PO DAILY 05/19/22 07/13/22 Unknown History mcg (1,000 unit) capsule (Vitamin D3) clonazepam 0.5 mg tablet 0.5 mg PO BID 06/13/22 07/13/22 07/13/22 History haloperidol 5 mg tablet 5 mg PO BID 06/27/22 07/13/22 07/13/22 History lamotrigine 25 mg tablet 25 mg PO BEDTIME 06/27/22 07/13/22 Unknown History naproxen 500 mg tablet 500 mg PO BID 06/27/22 07/13/22 Unknown History prazosin 1 mg capsule 1 mg PO BEDTIME nightmares 06/27/22 07/13/22 Unknown History risperidone 1 mg tablet 1 mg PO BEDTIME 06/27/22 07/13/22 Unknown History Exam Airway Mallampati Class: II TM Dist: <=3cm Neck ROM: Full Loose/Missing/Broken Teeth: Yes Heart: ok Lungs: ok Assessment and Plan Assessment Anesthesia Assessment: Anesthesia Plan Discussed and Chart Reviewed Final Anesthetic Review NPO: Yes ASA Class: III Final Preanesthetic Review: No Changes in Pt Med Stat, Meds/Allgs Chart Reviewed, Consent Obtained/Reviewed and Anes Risks/Benef Reviewed Patient Risk: Intermediate Procedure Risk: Low Anesthetic Plan Anesthetic Plan: MAC: and Agree w/ Assess. and Plan Disposition: Standard PACU
--- NOTE | ~2022-07-13 | XR_ITS ---
EXAMINATION: XR ABDOMEN KUB CLINICAL INDICATION: Preoperative evaluation for lithotripsy. COMPARISON: CT abdomen dated 05/30/2022 TECHNIQUE: 2 views of the abdomen. FINDINGS: There is a 1.1 x 0.7 cm stone in the lower pole of the right kidney as seen on the prior CT. No additional urinary calculi are evident. Nonobstructive bowel gas pattern. Mild constipation. No acute osseous abnormalities. XR/XR KUB IMPRESSION: 1.1 x 0.7 cm stone in the lower pole of the right kidney.
[2022-07-13 06:35] VITALS: BP 112/67; PULSE 63; RESP 16; TEMP 36.3; O2SAT 97
[2022-07-13] MEDS: Lactated Ringers 1,000 ML 999 ML IV (06:43)
--- NOTE | 2022-07-13 07:50 | MHC.SHP ---
Pre-Procedural Eval Section A Date of Service: 07/13/22 The patient is an INPATIENT: No Changes since office visit: No Cold of Flu in the past 2 weeks, No New Medical Problems, No Changes in Medication and No Patient answered all questions The History & Physical has been completed within 30 days and I have reviewed it.: Yes Section B Chief Complaint: Calculus of kidney Allergies: Allergies Allergy/AdvReac Type Severity Reaction Status Date / Time acetaminophen AdvReac Unknown Unknown Verified 06/27/22 12:51 Review of Systems Sugical H&P ROS: Negative: Constitution, Cardiovascular, Respiratory, Neurological, Psychiatric, Hem-Onc, Allergic/Immunologic, Gastrointestinal, Genitourinary, Musculoskeletal, Integumentary, Endocrine and Eyes/Ears/Nose/Throat Exam Surgical H&P Exam: Normal: HEENT, Normal: Heart, Normal: Lungs, Normal: Extremities, Normal: Abdomen, Normal: Skin and Normal: Neurological Plan Diagnosis/Plan: Unchanged (right ESWL) I have reviewed the history and physical and performed a pertinent physical examination on my patient. No changes have occurred unless specified. Time Spent With Patient Time: Total time managing care of this patient today ____ minutes.
--- NOTE | 2022-07-13 07:59 | W.PM.OPN ---
Operative Note Operative Note Date of Service: 07/13/22 Narrative: PreOperative Diagnosis: right Renal stones Post Operative Diagnosis: right Renal stones Procedure: right ESWL Surgeon: Dr Tomy Richter Anesthesia: mac/sedation Indications for procedure: The patient understands ESWL may be a staged procedure and subsequent intervention may be required based on imaging after ESWL. Quoted stone clearance rates for a solitary procedure are in the 70-80% range based primarily on stone location. They also understand there is a risk of bleeding to the kidney, infection, damage to adjacent organs, and stone migration following the procedure. - Imaging 8mm right lower pole Procedure: After informed consent was verified the patient was brought to the operating room and placed in a supine position. Anesthesia was performed per protocol. Safety pause time-out was performed. Imaging was displayed in the room and laterality confirmed. ESWL was performed. The 1st 500 shocks were performed at 60 hertz. These were performed with increasing power. Once maximum power was reached the rate was increased to 180 hertz. Lasix 10mg IV given A total of 2500 shocks were given. Targeted imaging with ultrasound/fluoroscopy showed stone smudging suggestive of disintegration. The patient tolerated the procedure well and was transferred to the recovery area upon completion. Post procedure imaging will be organized. There was no evidence for flank discoloration.
[2022-07-13 08:31] VITALS: BP 109/74; PULSE 56; RESP 14; TEMP 36.1; O2SAT 97
[2022-07-13 08:45] VITALS: BP 97/59; PULSE 57; RESP 16; O2SAT 98
[2022-07-13 08:57] VITALS: BP 107/67; PULSE 57; RESP 16; TEMP 36.2; O2SAT 98
== END 2022-07-13 09:37 | disposition home or self-care (01) ==
PROVIDERS: PCP Internal Medicine; Visit Provider Urology
PROC: (CPT 50590; principal; 2022-07-13 07:30)
DX: N20.0 Calculus of kidney (principal); Z90.5 Acquired absence of kidney; Z87.442 Personal history of urinary calculi; J45.909 Unspecified asthma, uncomplicated; G47.33 Obstructive sleep apnea (adult) (pediatric); E78.5 Hyperlipidemia, unspecified; D50.9 Iron deficiency anemia, unspecified; F43.10 Post-traumatic stress disorder, unspecified; E55.9 Vitamin D deficiency, unspecified; Z99.89 Dependence on other enabling machines and devices; Z79.899 Other long term (current) drug therapy; Z88.8 Allergy status to other drugs, medicaments and biological substances; Z90.49 Acquired absence of other specified parts of digestive tract; Z98.84 Bariatric surgery status; Z98.890 Other specified postprocedural states
CPT/HCPCS: 50590; 74018; J1940; J2250; J3010

== ENCOUNTER 2022-07-19 09:33 | Outpatient (REF) | payer OTHER, SELFPAY ==
[2022-07-19 09:55] LABS: MANUAL DIFF FLAG NO
[2022-07-19 10:36] LABS: Basophils Absolute Auto 0.1 X10*3/uL (0.0-0.2); Eosinophils Absolute Auto 0.1 X10*3/uL (0.0-0.4); Eosinophils Percent Auto 1.7 % (0-4); Hematocrit 42.9 % (37.0-47.0); Hemoglobin 14.2 g/dl (12.0-16.0); Imm Gran Abs Auto 0.01 X10*3/uL (0.00-0.03); Imm Gran Pct Auto 0.2 % (0.0-0.4); Lymphocytes Absolute Auto 2.2 X10*3/uL (1.2-4.9); Lymphocytes Percent Auto 35.3 % (20-40); Mean Corpuscular HGB Conc 33.1 g/dl (31.0-35.0); Mean Corpuscular Hemoglobin 32.7 pg (27.0-33.0); Mean Corpuscular Volume 98.8 fL (80.0-98.0); Mean Platelet Volume 9.5 fL (9.4-12.3); Monocytes Absolute Auto 0.5 X10*3/uL (0.1-1.2); Monocytes Percent Auto 7.2 % (2-11); Neutrophils Absolute Auto 3.4 x10*3/uL (2.0-8.3); Neutrophils Percent Auto 54.6 % (45-73); Platelet Count 305 X10*3/uL (160-400); Red Blood Count 4.34 X10*6/uL (4.20-5.50); Red Cell Distribution Width 11.8 % (11.0-16.0); White Blood Count 6.3 X10*3/uL (4.8-10.8)
[2022-07-19 11:59] LABS: Alanine Aminotransferase 17 U/L (0-31); Albumin Level 3.6 g/dL (3.5-5.0); Alkaline Phosphatase 128 U/L (39-117); Anion Gap 12 (12-20); Aspartate Amino Transferase 14 U/L (5-31); Bilirubin Total 0.5 mg/dL (0.0-1.0); Blood Urea Nitrogen 18 mg/dL (9-16); Calcium 8.7 mg/dL (8.4-10.2); Carbon Dioxide 27 mmol/L (22-29); Chloride 106 mmol/L (96-108); Cholesterol 242 mg/dL; Estimated Glomerular Filt Rate 47; Glucose Fasting 91 mg/dL (60-99); HDL Cholesterol 52 mg/dL; LDL Cholesterol Calculated 172 mg/dl; Potassium 4.4 mmol/L (3.3-5.1); Sodium 141 mmol/L (135-145); Total Protein 6.1 g/dL (6.5-8.0); Triglycerides 90 mg/dL
[2022-07-19 12:06] LABS: TSH reflex Free T4 0.95 uIU/mL (0.32-4.0); Vitamin D 25-OH Total 35.9 ng/mL (>30)
[2022-07-19 16:25] LABS: Appearance Urine Cloudy; Color Urine Yellow; Glucose Urine UA Negative (Negative); Leukocyte Esterase Urine Large (3+) (Negative); Nitrite Urine Positive (Negative); UMIC TRIGGER UACC YES; Urine Blood Negative (Negative); Urine Ketones Negative (Negative); Urine Protein Negative (Neg-Trace)
[2022-07-19 16:49] LABS: Bacteria Urine 4+ (None Seen); Hyaline Casts Urine 0-2 /LPF (0-2); RBC Urine 0-2 /HPF (0-2); UACC Culture Trigger YES; WBC Urine >50 /HPF (0-5)
== END 2022-07-19 09:34 | disposition home or self-care (01) ==
LOC: HO.LAB 09:33
PROVIDERS: PCP Internal Medicine; Visit Provider Internal Medicine
DX: I10 Essential (primary) hypertension (principal); E78.00 Pure hypercholesterolemia, unspecified; E55.9 Vitamin D deficiency, unspecified; Z98.84 Bariatric surgery status; R30.0 Dysuria
CPT/HCPCS: 36415; 80053; 80061; 81001; 82306; 84443; 85025; 87086; 87088; 87186

== ENCOUNTER 2022-07-28 13:06 | Outpatient (REF) | payer OTHER, SELFPAY ==
--- NOTE | ~2022-07-28 | US_ITS ---
EXAMINATION: US RETROPERITONEAL LIMITED (RENAL ONLY) CLINICAL INFORMATION: Calculus of kidney. COMPARISON: X-ray abdomen KUB 07/13/2022 and 05/30/2022. CT abdomen without contrast 05/30/2022. Ultrasound abdomen limited 04/06/2022. MR kidney without and with contrast 09/08/2021. Ultrasound abdomen complete 07/08/2021. TECHNIQUE: Real-time imaging of the kidneys. FINDINGS: RIGHT KIDNEY: 13.7 x 5.8 x 6.6 cm (SAG x AP x TRV). The kidney is normal in size, contour, and echogenicity. Renal cortical thickness is normal. No hydronephrosis. Redemonstration of multiple simple cysts largest in the upper pole measuring 4.8 cm, for which no imaging follow-up is recommended. Nonobstructive 1.1 cm calculus in the lower pole. LEFT KIDNEY: Surgically absent. US/US renal BI IMPRESSION: Nonobstructive 1.1 cm calculus in the lower pole of the right kidney. Multiple simple cysts are redemonstrated in the right kidney.
== END 2022-07-28 13:07 | disposition home or self-care (01) ==
LOC: HO.US 13:06
PROVIDERS: PCP Internal Medicine; Visit Provider Urology
DX: N20.0 Calculus of kidney (principal)
CPT/HCPCS: 76775

== ENCOUNTER → 2022-08-02 12:47 | Outpatient (BNVA) | payer OTHER, SELFPAY | PROVIDERS: PCP Internal Medicine; Visit Provider Physician Assistant Surgical | DX: E66.9 Obesity, unspecified (principal); Z68.30 Body mass index [BMI] 30.0-30.9, adult; Z90.49 Acquired absence of other specified parts of digestive tract; Z90.3 Acquired absence of stomach [part of]; Z98.84 Bariatric surgery status | CPT/HCPCS: 99212 ==

== ENCOUNTER → 2022-08-10 13:44 | Outpatient (BNVA) | payer OTHER, SELFPAY | PROVIDERS: PCP Internal Medicine; Visit Provider Anesthesiology | DX: M46.1 Sacroiliitis, not elsewhere classified (principal); M47.816 Spondylosis without myelopathy or radiculopathy, lumbar region | CPT/HCPCS: 99212 ==

== ENCOUNTER → 2022-08-19 07:47 | Outpatient (BNVA) | payer OTHER, SELFPAY | PROVIDERS: PCP Internal Medicine; Visit Provider Nurse Practitioner Family | DX: E66.9 Obesity, unspecified (principal); G47.33 Obstructive sleep apnea (adult) (pediatric); Z68.30 Body mass index [BMI] 30.0-30.9, adult | CPT/HCPCS: 99202 ==

== ENCOUNTER 2022-08-23 13:04 | Outpatient (AMB) | payer OTHER, SELFPAY ==
--- NOTE | 2022-08-23 14:02 | A.OFFVIS_ITS ---
Intake Intake Visit Reasons: 6W US(set) Intake Note: Patient is present for Ultrasound Urology Med: Oxybutynin, Antibiotic Allergy: None Blood Thinner: none Urine will be sent for culture Allergies acetaminophen Adverse Reaction (Unknown, Verified 12/21/22 13:51) Unknown HPI HPI Comments History of Present Illness Details Xenia is a pleasant female. She is a patient of . She seen for the following urologic conditions - nephrolithiasis - recurrent urinary tract infections - genitourinary syndrome of menopause Cook Islander translation performed by qualified medical office technician Follow-up for ESWL Noting recurrent UTIs Initiate Vagifem Nephrolithiasis They are here for -follow-up after procedure Urolithiasis was diagnosed - a number of years ago The patient previously had kidney stones whose composition w - unknown Laboratory investigations include - no recent labs 24 Hour urine evaluation - none on file Prior treatment(s) include - June 2020 right kidney ureteroscopy laser lithotripsy - 07/21 Right ESWL Prior imaging includes - 06/[address] - stone protocol - surgically absent left kidney, right kidney multiple cysts, 2 6 mm stones Current therapeutic plan will be - imaging surveillance Recurring urinary tract infection Vagifem Surgical menopause 2017 hysterectomy with oophorectomy PFSH Medical History Anxiety Asthma Avascular necrosis of femoral head Bilateral carpal tunnel syndrome Chronic constipation Diverticulosis Dizziness of unknown etiology Dyspareunia GERD (gastroesophageal reflux disease) Hx of schizophrenia Hyperlipidemia Incisional hernia without obstruction or gangrene Ingrown toenail Insomnia Iron deficiency anemia Lumbar degenerative disc disease Major depression, recurrent Migraine Obesity (BMI 30-39.9) Orthostatic hypotension MIGUEL (obstructive sleep apnea) Panic attacks Peroneal neuropathy PTSD (post-traumatic stress disorder) Pyelonephritis Renal cyst Sacroiliitis Spondylosis of lumbar spine Tremor Tubular adenoma Vitamin D deficiency Surgical History H/O left nephrectomy History of bilateral breast reduction surgery History of bladder repair surgery (~03/2015) History of bladder surgery (~10/2009) History of cholecystectomy History of colonoscopy History of endoscopy (~06/2016) History of gastric bypass (~2008) History of hernia repair (~03/29/10) History of hysterectomy History of incisional hernia repair (~1999) History of surgery Hx of cystoscopy Hx of umbilical hernia repair (~1999) S/P cystoscopy (~07/30/12) S/P laparoscopic sleeve gastrectomy S/P panniculectomy Family History Father Liver cancer Mother Breast cancer Sister Lung cancer Other Mental health problem Social History (Updated 12/21/22 @ 13:55 by Charlette Felton CMA) Household Members: Spouse and Family Housing: House Do you presently have visiting nurse or other home services: Yes Alcohol intake: never Patient Tobacco Use Status: Never used Tobacco e-Cigarette/Vaping Use: Never Used Second Hand Smoke Exposure: No Advance Directives Date on File: 07/12/21 service: No Current occupational status: disabled Sexual orientation: Straight/Heterosexual Cognitive needs: No Hearing needs: No Vision needs: Yes Female Reproductive History Menstrual Age of Menarche: 13 Review of Systems Const Denies chills and Denies fever(s) Card Reports no additional complaints and Denies syncope Resp Denies cough GI Denies abdominal pain and Denies heartburn Reports as per HPI and Denies change in libido Neuro Denies syncope Psych Denies change in libido Endo Denies change in libido Physical Exam Const General: cooperative, healthy appearing, comfortable and no acute distress Orientation/consciousness: patient oriented x3 HEENT Face and sinus: Yes normal facial exam Mouth: moist mucous membranes Neck Neck: Yes normal visual inspection, Yes full ROM and Yes trachea midline Chest Chest palpation & inspection: normal inspection of the chest Resp Effort & Inspection: normal respiratory effort, able to speak in complete sentences and no respiratory distress GI Inspection: Yes normal to inspection Back/Spine/Pelvis Cervical Spine: normal cervical lordosis Thoracic/Lumbar Spine: thoracic and lumbar spine normal to inspection Skin General skin exam: no rashes or lesions noted Neuro General: patient oriented x3, gait normal, tone normal and moves all extremities Extrem General: Yes normal to inspection and Yes capillary refill normal Results AMB Urinalysis, Automated UA Leukoctes 125 Asad/uL Last Edit by ADONIS Howard on 08/23/22 14:10 UA Nitrite Positive Last Edit by ADONIS Howard on 08/23/22 14:10 UA Urobilinogen 0.2 mg/dL Last Edit by RUBÉN HowardA on 08/23/22 14:1 0 UA Protein 15 mg/dL Last Edit by Sandy Zarate, RMA on 08/23/22 14:10 UA pH 6.0 Last Edit by Sandy Zarate, RMA on 08/23/22 14:10 UA Blood 10 [place]/uL Last Edit by Sandy Zarate, RMA on 08/23/22 14:10 UA Specific [place] 1.015 Last Edit by Sandy Zarate, RMA on 08/23/22 14: 10 UA Ketone Negative Last Edit by Sandy Zarate, RMA on 08/23/22 14:10 UA Bilirubin 1 mg/dL Last Edit by Sandy Zarate, RMA on 08/23/22 14:10 UA Glucose 0 mg/dL Last Edit by Sandy Zarate, RMA on 08/23/22 14:10 Results Reviewed Results Reviewed: Laboratory Last Values Urine pH (Auto) 6.0 08/23/22 14:08 Specific [place] (Auto) 1.015 08/23/22 14:08 Urine Protein (Auto) 15 mg/dL 08/23/22 14:08 Glucose (UA)(Auto) 0 mg/dL 08/23/22 14:08 Urine Ketones (Auto) Negative 08/23/22 14:08 Urine Blood (Auto) 10 [place]/uL 08/23/22 14:08 Urine Nitrite (Auto) Positive 08/23/22 14:08 Urine Bilirubin (Auto) 1 mg/dL 08/23/22 14:08 Urine Urobilinogen (Auto) 0.2 mg/dL 08/23/22 14:08 Leukocyte Esterase (Auto) 125 [place]ad/uL 08/23/22 14:08 Assessment & Plan Assessment & Plan (1) Urinary tract infection: Code(s): N39.0 - Urinary tract infection, site not specified Qualifiers: Hematuria presence: without hematuria Urinary tract infection type: site unspecified Qualified Code(s): N39.0 - Urinary tract infection, site not specified Plan Initiate Vagifem Orders: Orders Urine Culture 08/23/22 N39.0 - Urinary tract infection, site not specified XR KUB 6 Months N20.0 - Calculus of kidney AMB Urinalysis Automated 04/25/23 Z13.9 - Encounter for screening, unspecified Surgical 08/23/22 N20.0 - Calculus of kidney Medications: New estradiol (Yuvafem) 10 mcg vaginal 2XW 8 tabs 6RF 28 days N20.0 - Calculus of kidney, N95.8 - Other specified menopausal and perimenopausal disorders Patient Instructions: Imaging studies, laboratory and physical exam results were discussed and reviewed in detail. No major barriers to patient understanding were identified. An opportunity to ask questions regarding the treatment plan was provided. All questions were answered. The patient expressed understanding and agreement with the above treatment plan. The patient is aware they should contact our office by phone for worsening of their current condition or the appearance of new urologic symptoms. Compliance is encouraged with any medications and followup testing that is ordered. It is a privilege to participate in the urologic care of your patient. If you have any questions or concerns regarding treatment for the above conditions, or other urologic issues, please do not hesitate to contact me. The office telephone contact is [phone]. This note is constructed using voice recognition software. While every effort has been made to ensure accuracy building coordinator errors may have been included. Yours sincerely, Dr Tomy Richter MD, [facility] - Urology Providers of Expert, Compassionate Care for the Genitourinary System Coding Level of Care Code Est Pt Level 4 (38186) Diagnoses Urinary tract infection N39.0 Hematuria presence: without hematuria Urinary tract infection type: site unspecified
== END 2022-08-23 15:08 | disposition home or self-care (01) ==
LOC: HO.HUSH 13:04
PROVIDERS: PCP Internal Medicine; Visit Provider Urology
DX: N39.0 Urinary tract infection, site not specified (principal)
CPT/HCPCS: 99024

== ENCOUNTER 2022-08-23 13:04 | Outpatient (REF) | payer OTHER, SELFPAY ==
[2022-08-31 19:08] LABS: Stone Source KIDNEY STONE
== END 2022-08-23 13:05 | disposition home or self-care (01) ==
LOC: HO.LAB 13:04
PROVIDERS: PCP Internal Medicine; Visit Provider Urology
DX: N20.0 Calculus of kidney (principal); N39.0 Urinary tract infection, site not specified
CPT/HCPCS: 82365; 87086; 87088; 87186; 88300; 99212

== ENCOUNTER → 2022-08-31 10:32 | Outpatient (REF) | payer OTHER, SELFPAY | LOC: HO.SL 10:32 | PROVIDERS: PCP Internal Medicine; Visit Provider Nurse Practitioner Family | DX: G47.33 Obstructive sleep apnea (adult) (pediatric) (principal) | CPT/HCPCS: 95806 ==

== ENCOUNTER 2022-09-05 13:31 | Outpatient (REF) | payer OTHER, SELFPAY | END 2022-09-05 13:32 | disposition home or self-care (01) | LOC: HO.LAB 13:31 | PROVIDERS: PCP Internal Medicine; Visit Provider Physician Assistant Surgical | DX: Z98.84 Bariatric surgery status (principal) | CPT/HCPCS: 36415; 82040 ==

== ENCOUNTER → 2022-09-08 14:04 | Outpatient (BNVA) | payer OTHER, SELFPAY | PROVIDERS: PCP Internal Medicine; Referring Provider Internal Medicine; Visit Provider Physician Assistant Surgical | DX: L98.7 Excessive and redundant skin and subcutaneous tissue (principal); E66.3 Overweight; R30.0 Dysuria; E55.9 Vitamin D deficiency, unspecified; Z68.29 Body mass index [BMI] 29.0-29.9, adult; Z90.49 Acquired absence of other specified parts of digestive tract; Z90.3 Acquired absence of stomach [part of]; Z98.84 Bariatric surgery status | CPT/HCPCS: 99212 ==

== ENCOUNTER 2022-09-20 07:44 | Outpatient (REF) | payer OTHER, SELFPAY ==
[2022-09-20 07:59] LABS: MANUAL DIFF FLAG NO
[2022-09-20 08:30] LABS: Basophils Absolute Auto 0.1 X10*3/uL (0.0-0.2); Basophils Percent Auto 1.1 % (0-2); Eosinophils Percent Auto 0.4 % (0-4); Hematocrit 41.8 % (37.0-47.0); Hemoglobin 13.7 g/dl (12.0-16.0); Imm Gran Abs Auto 0.02 X10*3/uL (0.00-0.03); Imm Gran Pct Auto 0.4 % (0.0-0.4); Lymphocytes Absolute Auto 1.9 X10*3/uL (1.2-4.9); Lymphocytes Percent Auto 34.2 % (20-40); Mean Corpuscular HGB Conc 32.8 g/dl (31.0-35.0); Mean Corpuscular Hemoglobin 33.6 pg (27.0-33.0); Mean Corpuscular Volume 102.5 fL (80.0-98.0); Mean Platelet Volume 8.9 fL (9.4-12.3); Monocytes Absolute Auto 0.3 X10*3/uL (0.1-1.2); Monocytes Percent Auto 5.7 % (2-11); Neutrophils Absolute Auto 3.3 x10*3/uL (2.0-8.3); Neutrophils Percent Auto 58.2 % (45-73); Platelet Count 352 X10*3/uL (160-400); Red Blood Count 4.08 X10*6/uL (4.20-5.50); Red Cell Distribution Width 12.2 % (11.0-16.0); White Blood Count 5.6 X10*3/uL (4.8-10.8)
[2022-09-20 09:02] LABS: Alanine Aminotransferase 36 U/L (0-31); Albumin Level 3.7 g/dL (3.5-5.0); Alkaline Phosphatase 114 U/L (39-117); Anion Gap 12 (12-20); Aspartate Amino Transferase 55 U/L (5-31); Bilirubin Total 0.9 mg/dL (0.0-1.0); Blood Urea Nitrogen 11 mg/dL (9-16); Carbon Dioxide 29 mmol/L (22-29); Chloride 106 mmol/L (96-108); Cholesterol 222 mg/dL; Estimated Glomerular Filt Rate 47; Glucose Fasting 91 mg/dL (60-99); HDL Cholesterol 57 mg/dL; LDL Cholesterol Calculated 145 mg/dl; Potassium 4.8 mmol/L (3.3-5.1); Sodium 142 mmol/L (135-145); Total Protein 6.3 g/dL (6.5-8.0); Triglycerides 104 mg/dL
[2022-09-20 09:21] LABS: TSH reflex Free T4 2.01 uIU/mL (0.32-4.0); Vitamin D 25-OH Total 34.6 ng/mL (>30)
[2022-09-20 09:43] LABS: Appearance Urine Cloudy; Color Urine Yellow; Glucose Urine UA Negative (Negative); Leukocyte Esterase Urine Small (1+) (Negative); Nitrite Urine Positive (Negative); UMIC TRIGGER UACC YES; Urine Blood Negative (Negative); Urine Ketones Negative (Negative); Urine Protein Negative (Neg-Trace)
[2022-09-20 09:51] LABS: Bacteria Urine 4+ (None Seen); Hyaline Casts Urine 0-2 /LPF (0-2); RBC Urine 0-2 /HPF (0-2); UACC Culture Trigger YES; WBC Urine 21-50 /HPF (0-5)
== END 2022-09-20 07:45 | disposition home or self-care (01) ==
LOC: HO.LAB 07:44
PROVIDERS: PCP Internal Medicine; Visit Provider Internal Medicine
DX: K59.03 Drug induced constipation (principal); R79.89 Other specified abnormal findings of blood chemistry; K21.9 Gastro-esophageal reflux disease without esophagitis; G24.01 Drug induced subacute dyskinesia; E78.00 Pure hypercholesterolemia, unspecified; I10 Essential (primary) hypertension; E55.9 Vitamin D deficiency, unspecified
CPT/HCPCS: 36415; 80053; 80061; 81001; 82306; 84443; 85025; 87086; 87088; 87186; 99212

== ENCOUNTER 2022-10-12 13:00 | Outpatient (RCR) | payer OTHER, SELFPAY ==
--- NOTE | 2022-11-25 13:32 | MHC.PT.DC ---
[facility] [place] Office [place] Office [place] Office [address] Dimitrios Chandler 140 [facility] [phone] F: [phone] F: [phone] F: [phone] F: [phone] Physical Therapy Discharge Report Diagnosis: bilateral leg weakness (MD Dx) low back pain with bilateral radiculopathy (PT Dx) Date of Surgery: Date of Evaluation: 09/12/22 Date of Discharge: 11/25/22 Treatments to Date: 3 Cancellations to Date: 1 No Shows to Date: 1 Discharge Status: Independent with HEP Patient Elected to Stop Discharge Summary: Patient ceased attending PT on her own accord and is discharged from PT at this time. Electronically signed by: Chelsie Hall, PT, DPT Please sign and return to therapist. Thank you for your referral.
== END 2022-11-25 13:32 | disposition home or self-care (01) ==
LOC: HO.PT 13:00
PROVIDERS: PCP Internal Medicine; Visit Provider Internal Medicine
DX: R29.898 Other symptoms and signs involving the musculoskeletal system (principal)
CPT/HCPCS: 97110; 97162

== ENCOUNTER 2022-10-25 12:32 | Emergency (ER) | payer OTHER, SELFPAY ==
--- NOTE | ~2022-10-25 | XR_ITS ---
EXAMINATION: XR CHEST CLINICAL INFORMATION: Chest pain, dyspnea. COMPARISON: 07/01/2019 chest radiographs. TECHNIQUE: 2 views of the chest were obtained. FINDINGS: No significant abnormality is noted involving the heart, lungs, mediastinum, bony thorax or soft tissues. XR/XR chest 2V IMPRESSION: No acute cardiopulmonary process.
--- NOTE | ~2022-10-25 | US_ITS ---
EXAMINATION: US ABDOMEN LIMITED CLINICAL INFORMATION: Right upper quadrant pain. COMPARISON: None available. TECHNIQUE: Real-time imaging of the right upper quadrant abdominal viscera. FINDINGS: PANCREAS: Obscured by overlying bowel gas LIVER: Limited views but where the liver as seen is grossly normal in size. The visualized liver contour is normal. Parenchymal echogenicity is normal. No focal hepatic lesion. There is no intrahepatic biliary duct dilatation seen. GALLBLADDER: Surgically absent. COMMON BILE DUCT: Normal in caliber measuring 0.4 cm in diameter. RIGHT KIDNEY: Multiple. Renal cysts are seen largest of which measures up to 4.9 cm in size in the upper pole. No further evaluation of these cysts would be needed. No hydronephrosis. No renal calculi or focal parenchymal lesions. The kidney measures 12.1 cm in maximum dimension. FREE FLUID: None. US/US abdomen limited IMPRESSION: No acute abnormality seen in the right upper quadrant.
[2022-10-25 12:48] VITALS: BP 106/73; PULSE 78; RESP 18; TEMP 35.9; O2SAT 99; BMI 29.9
--- NOTE | 2022-10-25 12:50 | ED.GENADULT ---
HPI - General Adult General Chief complaint: Chest Pain Stated complaint: L Side Pain Time Seen by Provider: 10/25/22 19:49 Source: patient and language interpreter Mode of arrival: ambulatory History of Present Illness HPI narrative: 51-year-old female with reports of chest pain yesterday while laying down that was associated with some dizziness and shortness of breath and she reports left upper extremity discomfort as well as a headache but has otherwise been tolerating food and water although she reports decrease paste appetite. Patient states she has not had chest pain like this previously and denies any falls. Related Data Home Medications Medication Instructions Recorded Confirmed haloperidol 5 mg tablet 5 mg PO BID 06/27/22 09/16/22 naproxen 500 mg tablet 500 mg PO BID 06/27/22 09/16/22 atorvastatin 10 mg tablet 10 mg PO BEDTIME 08/19/22 09/16/22 furosemide 40 mg tablet 40 mg PO QAM 08/19/22 09/16/22 haloperidol 10 mg tablet 10 mg PO BEDTIME 08/19/22 09/16/22 lactulose 10 gram/15 mL (15 mL) 10 g PO .prn 08/19/22 09/16/22 oral solution lamotrigine 25 mg tablet 50 mg PO DAILY 08/19/22 09/16/22 meclizine 25 mg tablet 25 mg PO TID 08/19/22 09/16/22 midodrine 5 mg tablet 5 mg PO TID 08/19/22 09/16/22 omeprazole 20 mg tablet,delayed 20 mg PO DAILY 08/19/22 09/16/22 release oxybutynin chloride 5 mg 5 mg PO DAILY 08/19/22 09/16/22 tablet,extended release 24 hr polyethylene glycol 3350 17 gram 17 g PO DAILY 08/19/22 09/16/22 oral powder packet (Miralax) prazosin 1 mg capsule 1 mg PO BEDTIME 08/19/22 09/16/22 risperidone 1 mg tablet 0.5 mg PO BEDTIME 08/19/22 09/16/22 sumatriptan succinate 50 mg tablet See Rx Instructions PO .COMPLEX 08/19/22 09/16/22 clonazepam 0.5 mg tablet 0.5 mg PO BID 09/15/22 09/16/22 Previous Rx's Medication Instructions Recorded albuterol sulfate 90 mcg/actuation 2 puff inhalation Q6H PRN 10/27/21 aerosol inhaler (ProAir HFA) shortness of breath or wheezing 30 days #8.5 grams CPAP device and all related #1 ea 06/03/22 supplies benztropine 1 mg tablet 1 mg PO BID #30 tabs 06/03/22 cyanocobalamin (vitamin B-12) 500 500 mcg PO DAILY #30 tabs 06/03/22 mcg tablet docusate sodium 100 mg capsule 100 mg PO BID #60 caps 06/03/22 sennosides 8.6 mg tablet (Senna 17.2 mg PO BEDTIME #30 tabs 06/03/22 Lax) trazodone 50 mg tablet 50 mg PO BEDTIME PRN Insomnia #30 06/03/22 tabs tramadol 50 mg tablet 100 mg PO Q8H PRN severe pain 30 07/01/22 days #180 tabs zinc gluconate 10 mg lozenges 10 mg PO DAILY #100 ea 07/11/22 tamsulosin 0.4 mg capsule 0.4 mg PO BEDTIME 14 days #14 caps 07/13/22 gabapentin 400 mg capsule 800 mg PO TID 30 days #180 caps 08/15/22 estradiol 10 mcg vaginal tablet 10 mcg vaginal 2XW 28 days #8 tabs 08/23/22 (Yuvafem) cholecalciferol (vitamin D3) 25 25 mcg PO DAILY 90 days #90 caps 08/24/22 mcg (1,000 unit) capsule (Vitamin D3) clotrimazole 1 % topical cream 1 appl topical BID #45 grams 09/08/22 nitrofurantoin 100 mg PO Q12H 5 days #10 caps 10/25/22 monohydrate/macrocrystals 100 mg capsule (Macrobid) Allergies Allergy/AdvReac Type Severity Reaction Status Date / Time acetaminophen AdvReac Unknown Unknown Verified 09/20/22 12:50 Review of Systems Review of Systems: Pertinent positives and negatives as stated in [facility] Past Medical History Source: nursing notes reviewed Medical History Anxiety Asthma Avascular necrosis of femoral head Bilateral carpal tunnel syndrome Chronic constipation Diverticulosis Dizziness of unknown etiology Dyspareunia GERD (gastroesophageal reflux disease) Hx of schizophrenia Hyperlipidemia Incisional hernia without obstruction or gangrene Ingrown toenail Insomnia Iron deficiency anemia Lumbar degenerative disc disease Major depression, recurrent Migraine Obesity (BMI 30-39.9) Orthostatic hypotension MIGUEL (obstructive sleep apnea) Panic attacks Peroneal neuropathy PTSD (post-traumatic stress disorder) Pyelonephritis Renal cyst Sacroiliitis Spondylosis of lumbar spine Tremor Tubular adenoma Vitamin D deficiency Surgical History H/O left nephrectomy History of bilateral breast reduction surgery History of bladder repair surgery (~03/2015) History of bladder surgery (~10/2009) History of cholecystectomy History of colonoscopy History of endoscopy (~06/2016) History of gastric bypass (~2008) History of hernia repair (~03/29/10) History of hysterectomy History of incisional hernia repair (~1999) History of surgery Hx of cystoscopy Hx of umbilical hernia repair (~1999) S/P cystoscopy (~07/30/12) S/P laparoscopic sleeve gastrectomy S/P panniculectomy Family History Family History Father Liver cancer Mother Breast cancer Sister Lung cancer Other Mental health problem Social History Social History Household Members: Spouse and Family Housing: House Do you presently have visiting nurse or other home services: Yes Alcohol intake: never Patient Tobacco Use Status: Never used Tobacco Smoked in Last 30 Days: No e-Cigarette/Vaping Use: Never Used Second Hand Smoke Exposure: No Use of substances other than those prescribed or required for medical reasons: No Advance Directives: Yes Advance Directives on File: Yes Advance Directives Date on File: 07/12/21 Patient : No service: No Current occupational status: disabled Sexual orientation: Straight/Heterosexual Cognitive needs: No Hearing needs: No Vision needs: Yes Physical Exam ED Vital Signs: Vital Signs - 24 hr 10/25/22 12:48 10/25/22 17:23 10/25/22 20:51 Temperature 96.7 F L 96.8 F 98.6 F Pulse Rate 78 65 55 Respiratory Rate 18 16 17 Blood Pressure 106/73 112/82 112/64 Pulse Oximetry 99 100 98 Oxygen Delivery Method Room Air Room Air Room Air BMI result Body Mass Index 29.9 VITAL SIGNS: Reviewed. GENERAL: Well developed, well nourished, in no acute distress. HEAD: Normocephalic/atraumatic EYES: PERRLA, EOMI EARS: Ext canals without abnormality NOSE: Nares patent bilateral OROPHARYNX: no oral lesions noted, posterior pharynx clear NECK: Supple, no adenopathy LUNGS: Normal breath sounds. No adventitious sounds or accessory muscle use. SpO2<100> CARDIOVASCULAR: Regular rate and rhythm without noted murmurs ABDOMEN: Soft, right upper quadrant discomfort on palpation, non-distended with bowel sounds. MUSCULOSKELETAL: No tenderness, deformities, or effusions noted on gross inspection. EXTREMITIES: No cyanosis, clubbing or edema. SKIN: Inspection of the skin reveals no rashes NEUROLOGIC: Alert and oriented x 4. Strength and sensation to light touch were grossly intact x 4. Course Course Course Narrative: This is an RME: Additional HPI, ROS, PE not included below will be deferred to primary provider. Patient is a 51-year-old Guatemalan-speaking female with history of HLD, symptomatic abdominal panniculus, obesity, gastric bypass, nephrolithiasis, renal cyst, left lumbar radiculopathy presenting to the emergency department with left sided chest pain for two days radiating to the left neck and head. Pain comes and goes, associated shortness of breath. Denies nausea, abdominal pain. Reports anxiety related to pain. Plan: EKG, labs, CXR Medical Decision Making Medical Decision Making MDM Narrative: 51-year-old female without focal findings, right upper quadrant discomfort and on review of all investigations although inconsistent with reports of left-sided chest discomfort there are noted derangements of the LFTs and will pursue ultrasound of the right upper quadrant. Otherwise, patient is afebrile and on review of chest x-ray no evidence to suggest underlying pneumonia, troponin and EKG without acute findings. Review of all investigations as well as imaging studies, I was notified by the zinc miner blasting that patient is status post cholecystectomy which patient had informed me she still had. There are no acute findings to better explain patient's presentation and suspect she may have component of gastritis/acid reflux. She is otherwise given a GI cocktail and discharged home in stable condition. Differential Diagnosis Please see the discussion above Lab Data Please see the discussion above 10/25/22 13:06 10/25/22 13:06 Labs: Lab Results 06/27/23 06/27/23 06/27/23 Range/Units 12:53 12:53 13:06 WBC 6.5 (4.8-10.8) X10*3/uL RBC 4.46 (4.20-5.50) X10*6/uL Hgb 14.7 (12.0-16.0) g/dl Hct 44.8 (37.0-47.0) % MCV 100.4 H (80.0-98.0) fL MCH 33.0 (27.0-33.0) pg MCHC 32.8 (31.0-35.0) g/dl RDW 12.0 (11.0-16.0) % Plt Count 268 (160-400) X10*3/uL MPV 9.5 (9.4-12.3) fL Immature Gran % (Auto) 0.2 (0.0-0.4) % Neut % (Auto) 67.0 (45-73) % Lymph % (Auto) 27.9 (20-40) % [place] % (Auto) 4.3 (2-11) % Eos % (Auto) 0.3 (0-4) % Baso % (Auto) 0.3 (0-2) % Lymph # (Auto) 1.8 (1.2-4.9) X10*3/uL [place] # (Auto) 0.3 (0.1-1.2) X10*3/uL Eos # (Auto) 0.0 (0.0-0.4) X10*3/uL Baso # (Auto) 0.0 (0.0-0.2) X10*3/uL Abs Immat Gran (auto) 0.01 (0.00-0.03) X10*3/uL Absolute Neuts (auto) 4.4 (2.0-8.3) x10*3/uL Absolute Nucleated RBC 0.000 (0.0-0.012) X10*3/uL Nucleated RBC % (auto) 0.0 (0.0-0.2) /100WBC PT 10.5 (10.0-13.1) SEC INR 0.9 (0.9-1.1) Sodium (135-145) mmol/L Potassium (3.3-5.1) mmol/L Chloride (96-108) mmol/L Carbon Dioxide (22-29) mmol/L Anion Gap (12-20) BUN (9-16) mg/dL Creatinine (0.5-1.4) mg/dL Estim Creat Clear Calc Estimated GFR Random Glucose (60-115) mg/dL Calcium (8.4-10.2) mg/dL Magnesium (1.6-2.6) mg/dL Total Bilirubin (0.0-1.0) mg/dL AST (5-31) U/L ALT (0-31) U/L Alkaline Phosphatase (39-117) U/L Troponin I High Sens (<3.5-17.0) ng/L Total Protein (6.5-8.0) g/dL Albumin (3.5-5.0) g/dL Lipase (8-78) U/L Beta HCG, Quant < 2 mIU/mL Urine Color Urine Appearance Urine pH (5.0-9.0) Ur Specific [place] (1.005-1.025) Urine Protein (Neg-Trace) mg/dL Urine Glucose (UA) (Negative) mg/dL Urine Ketones (Negative) mg/dL Urine Blood (Negative) Urine Nitrite (Negative) Ur Leukocyte Esterase (Negative) 10/25/22 10/25/22 10/25/22 Range/Units 13:06 13:06 22:26 WBC (4.8-10.8) X10*3/uL RBC (4.20-5.50) X10*6/uL Hgb (12.0-16.0) g/dl Hct (37.0-47.0) % MCV (80.0-98.0) fL MCH (27.0-33.0) pg MCHC (31.0-35.0) g/dl RDW (11.0-16.0) % Plt Count (160-400) X10*3/uL MPV (9.4-12.3) fL Immature Gran % (Auto) (0.0-0.4) % Neut % (Auto) (45-73) % Lymph % (Auto) (20-40) % [place] % (Auto) (2-11) % Eos % (Auto) (0-4) % Baso % (Auto) (0-2) % Lymph # (Auto) (1.2-4.9) X10*3/uL [place] # (Auto) (0.1-1.2) X10*3/uL Eos # (Auto) (0.0-0.4) X10*3/uL Baso # (Auto) (0.0-0.2) X10*3/uL Abs Immat Gran (auto) (0.00-0.03) X10*3/uL Absolute Neuts (auto) (2.0-8.3) x10*3/uL Absolute Nucleated RBC (0.0-0.012) X10*3/uL Nucleated RBC % (auto) (0.0-0.2) /100WBC PT (10.0-13.1) SEC INR (0.9-1.1) Sodium 141 (135-145) mmol/L Potassium 4.5 (3.3-5.1) mmol/L Chloride 108 (96-108) mmol/L Carbon Dioxide 25 (22-29) mmol/L Anion Gap 13 (12-20) BUN 16 (9-16) mg/dL Creatinine 1.09 (0.5-1.4) mg/dL Estim Creat Clear Calc 59.2 Estimated GFR 53 Random Glucose 139 H (60-115) mg/dL Calcium 9.3 (8.4-10.2) mg/dL Magnesium 1.7 (1.6-2.6) mg/dL Total Bilirubin 1.4 H (0.0-1.0) mg/dL AST 438 H (5-31) U/L ALT 129 H (0-31) U/L Alkaline Phosphatase 265 H (39-117) U/L Troponin I High Sens < 2.7 (<3.5-17.0) ng/L Total Protein 6.6 (6.5-8.0) g/dL Albumin 3.6 (3.5-5.0) g/dL Lipase 23 (8-78) U/L Beta HCG, Quant mIU/mL Urine Color Dark Yellow Urine Appearance Cloudy Urine pH 7.5 (5.0-9.0) Ur Specific [place] 1.015 (1.005-1.025) Urine Protein Trace (Neg-Trace) mg/dL Urine Glucose (UA) Negative (Negative) mg/dL Urine Ketones Negative (Negative) mg/dL Urine Blood Negative (Negative) Urine Nitrite Negative (Negative) Ur Leukocyte Esterase Large (3+) H (Negative) Independent Interpretation I performed an independent interpretation of an: EKG Interpretation: Normal sinus rhythm, HR-83, no STEMI, VA/QRS/QTC is within normal limits. Radiology Impression Radiologist Impression: My interpretation is in agreement with radiology's impression Discharge Plan Discharge Clinical Impression: Gastritis, UTI (urinary tract infection) Patient Disposition: Home, Self-Care Instructions: Gastritis (ED), Urinary Tract Infection in Women (ED), Diet for Stomach Ulcers and Gastritis (ED) Additional Instructions: 1. Reanudar todos los medicamentos caseros seg?n lo prescrito. 2. Recomiende un seguimiento con wick proveedor de atenci?n primaria en los pr?ximos 1 a 2 d?as para matesu evaluaci?n adicional del reflujo ?cido. Regrese a la nathan de emergencias si los s?ntomas empeoran. 1. Resume all home medications as prescribed. 2. Recommend follow-up with your primary care provider in the next 1-2 days for further evaluation of acid reflux. Return to the ER for any worsening symptoms. Prescriptions: New nitrofurantoin monohyd/m-cryst [Macrobid] 100 mg capsule 100 mg PO Q12H 5 Days Qty: 10 0RF Rx Instructions: must administer with a meal/food No Action albuterol sulfate [ProAir HFA] 90 mcg/actuation HFA aerosol inhaler 2 puff inhalation Q6H PRN (Reason: shortness of breath or wheezing) 30 Days Qty: 8.5 5RF (DME) CPAP device and all related supplies See Rx Instructions .Route .MEDSUPPLY Qty: 1 0RF Rx Instructions: As directed tramadol 50 mg tablet 100 mg PO Q8H PRN (Reason: severe pain) 30 Days Qty: 180 0RF zinc gluconate 10 mg lozenge 10 mg PO DAILY Qty: 100 3RF gabapentin 400 mg capsule 800 mg PO TID 30 Days Qty: 180 2RF cholecalciferol (vitamin D3) [Vitamin D3] 25 mcg (1,000 unit) capsule 25 mcg PO DAILY 90 Days Qty: 90 3RF trazodone 50 mg Tablet 50 mg PO BEDTIME PRN (Reason: Insomnia) Qty: 30 0RF benztropine 1 mg Tablet 1 mg PO BID Qty: 30 0RF sennosides [Senna Lax] 8.6 mg Tablet 17.2 mg PO BEDTIME Qty: 30 0RF cyanocobalamin (vitamin B-12) 500 mcg Tablet 500 mcg PO DAILY Qty: 30 0RF docusate sodium 100 mg Capsule 100 mg PO BID Qty: 60 0RF tamsulosin 0.4 mg capsule 0.4 mg PO BEDTIME 14 Days Qty: 14 0RF clonazepam 0.5 mg tablet 0.5 mg PO BID haloperidol 5 mg tablet 5 mg PO BID Rx Instructions: 5 mg bid and 10 mg at bedtime naproxen 500 mg tablet 500 mg PO BID risperidone 1 mg tablet 0.5 mg PO BEDTIME clotrimazole 1 % cream 1 appl topical BID Qty: 45 3RF lamotrigine 25 mg tablet 50 mg PO DAILY oxybutynin chloride 5 mg tablet extended release 24hr 5 mg PO DAILY haloperidol 10 mg tablet 10 mg PO BEDTIME prazosin 1 mg capsule 1 mg PO BEDTIME midodrine 5 mg tablet 5 mg PO TID Rx Instructions: do not give last dose of day after 6PM or within 4 hrs of bedtime meclizine 25 mg tablet 25 mg PO TID polyethylene glycol 3350 [Miralax] 17 gram powder in packet 17 g PO DAILY omeprazole 20 mg tablet,delayed release (DR/EC) 20 mg PO DAILY lactulose 10 gram/15 mL (15 mL) solution 10 g PO .prn furosemide 40 mg tablet 40 mg PO QAM atorvastatin 10 mg tablet 10 mg PO BEDTIME sumatriptan succinate 50 mg tablet See Rx Instructions PO .COMPLEX Rx Instructions: take 1 tab at onset of headache; if no relief may repeat 1 tab after at least 2 hrs; max = 4 tabs/24 hr PO estradiol [Yuvafem] 10 mcg tablet 10 mcg vaginal 2XW 28 Days Qty: 8 6RF Referrals: Hung Montelongo MD [Primary Care Provider] - Print Language: Guatemalan
--- NOTE | 2022-10-25 12:52 | ECG_ITS ---
Test Reason : cp Blood Pressure : / mmHG Vent. Rate : 083 BPM Atrial Rate : 083 BPM P-R Int : 128 ms QRS Dur : 084 ms QT Int : 386 ms P-R-T Axes : 049 055 027 degrees QTc Int : 453 ms Normal sinus rhythm Low voltage QRS Borderline ECG When compared to the previous EKG of No significant changes seen Referred By: Lee Ann Clancy Electronically Signed By:Renny Rothman
[2022-10-25 13:14] LABS: MANUAL DIFF FLAG NO
[2022-10-25 13:15] LABS: Basophils Percent Auto 0.3 % (0-2); Eosinophils Percent Auto 0.3 % (0-4); Hematocrit 44.8 % (37.0-47.0); Hemoglobin 14.7 g/dl (12.0-16.0); Imm Gran Abs Auto 0.01 X10*3/uL (0.00-0.03); Imm Gran Pct Auto 0.2 % (0.0-0.4); Lymphocytes Absolute Auto 1.8 X10*3/uL (1.2-4.9); Lymphocytes Percent Auto 27.9 % (20-40); Mean Corpuscular HGB Conc 32.8 g/dl (31.0-35.0); Mean Corpuscular Volume 100.4 fL (80.0-98.0); Mean Platelet Volume 9.5 fL (9.4-12.3); Monocytes Absolute Auto 0.3 X10*3/uL (0.1-1.2); Monocytes Percent Auto 4.3 % (2-11); Neutrophils Absolute Auto 4.4 x10*3/uL (2.0-8.3); Platelet Count 268 X10*3/uL (160-400); Red Blood Count 4.46 X10*6/uL (4.20-5.50); White Blood Count 6.5 X10*3/uL (4.8-10.8)
[2022-10-25 13:21] LABS: INTERNATIONAL NORM RATIO 0.9 (0.9-1.1); Prothrombin Time 10.5 SEC (10.0-13.1)
[2022-10-25 13:31] LABS: Alanine Aminotransferase 129 U/L (0-31); Albumin Level 3.6 g/dL (3.5-5.0); Alkaline Phosphatase 265 U/L (39-117); Anion Gap 13 (12-20); Aspartate Amino Transferase 438 U/L (5-31); Bilirubin Total 1.4 mg/dL (0.0-1.0); Blood Urea Nitrogen 16 mg/dL (9-16); Calcium 9.3 mg/dL (8.4-10.2); Carbon Dioxide 25 mmol/L (22-29); Chloride 108 mmol/L (96-108); Creatinine Clr Calc Pharmacy 59.2; Estimated Glomerular Filt Rate 53; Glucose Random 139 mg/dL (60-115); Potassium 4.5 mmol/L (3.3-5.1); Sodium 141 mmol/L (135-145); Total Protein 6.6 g/dL (6.5-8.0)
[2022-10-25 13:44] LABS: Troponin-I High Sensitivity < 2.7 ng/L (<3.5-17.0)
[2022-10-25 13:44] LABS: HCG Quantitative < 2 mIU/mL
[2022-10-25 17:23] VITALS: BP 112/82; PULSE 65; RESP 16; TEMP 36; O2SAT 100
[2022-10-25 18:02] LABS: Magnesium 1.7 mg/dL (1.6-2.6)
[2022-10-25 18:26] LABS: Lipase 23 U/L (8-78)
[2022-10-25 20:51] VITALS: BP 112/64; PULSE 55; RESP 17; TEMP 37; O2SAT 98
--- NOTE | 2022-10-25 21:44 | PC.NURSE ---
patient in the bed with eyes open patient stated she has pai9n 01/08 patient stated she has had this pain for 2 days patient stated she takes tramadol at home patient vitals are stable patient encouraged to give a urine specimen patient will continue to be monitored for safety
[2022-10-25 22:33] LABS: Appearance Urine Cloudy; Color Urine Dark Yellow; Glucose Urine UA Negative (Negative); Leukocyte Esterase Urine Large (3+) (Negative); Nitrite Urine Negative (Negative); PH 7.5 (5.0-9.0); Specific Gravity - Urine 1.015 (1.005-1.025); UMIC TRIGGER UACC YES; Urine Blood Negative (Negative); Urine Ketones Negative (Negative); Urine Protein Trace mg/dL (Neg-Trace)
[2022-10-25 22:36] LABS: Bacteria Urine 4+ (None Seen); Hyaline Casts Urine 0-2 /LPF (0-2); RBC Urine 0-2 /HPF (0-2); UACC Culture Trigger YES; WBC Urine 21-50 /HPF (0-5)
[2022-10-25] MEDS: Magnesium Hydrox/Alum Hydrox 30 ML ORAL.SUSP PO (23:09)
[2022-10-25] MEDS: Nitrofurantoin Monohyd/M-Cryst 100 MG CAPSULE PO (23:09)
--- NOTE | 2022-10-25 23:12 | PC.NURSE ---
patient in the process of being discharged patient is aware
== END 2022-10-25 23:14 | disposition home or self-care (01) ==
PROVIDERS: Registered Nurse Emergency; Emergency Provider Student in an Organized Health Care Education/Training Program; PCP Internal Medicine
DX: K29.70 Gastritis, unspecified, without bleeding (principal); N39.0 Urinary tract infection, site not specified; R07.89 Other chest pain; R06.02 Shortness of breath; R42 Dizziness and giddiness; Z79.899 Other long term (current) drug therapy
CPT/HCPCS: 36415; 71046; 76705; 80053; 81001; 83690; 83735; 84484; 84702; 85025; 85610; 87086; 87088; 87186; 93005; 99284; 99285

== ENCOUNTER 2022-10-27 15:12 | Outpatient (REF) | payer OTHER, SELFPAY | END 2022-10-27 15:13 | disposition home or self-care (01) | LOC: HO.MAMMO 15:12 | PROVIDERS: PCP Internal Medicine; Visit Provider Internal Medicine | DX: Z13.89 Encounter for screening for other disorder (principal) ==

== ENCOUNTER 2022-11-08 12:34 | Outpatient (AMB) | payer OTHER, SELFPAY ==
--- NOTE | 2022-11-08 12:38 | A.OFFVIS_ITS ---
Intake VS Expanded 11/08/22 13:00 Height 5 ft 2.5 in Weight 162 lb 9.6 oz BMI 29.3 BP 114/63 Blood Pressure Location Rt brachial Blood Pressure Position Sitting Pulse 69 Pulse Source Pulse Oximeter Temp 97.5 F Temperature Source Temporal Artery Scan Pulse Oximetry 99 Oxygen Delivery Method Room Air Body Fat 64.8 Body Fat Percentage 39.9 Free Fat Mass 97.6 Muscle Mass 92.6 Visceral Mass 9.0 Water Mass 69.4 BMR 1,354 Intake Visit Reasons: (OV) PO LRYGB 06/16/16 Allergies acetaminophen Adverse Reaction (Unknown, Verified 11/08/22 12:59) Unknown Medication List - Last Reconciled 11/08/22 by CJ Cheng albuterol sulfate 90 mcg/actuation (ProAir HFA) 2 puffs inhalation Q6H PRN 30 days atorvastatin 10 mg PO BEDTIME benztropine 1 mg PO BID cholecalciferol (vitamin D3) (Vitamin D3) 25 mcg PO DAILY 90 days clotrimazole 1% 1 appl topical BID [CPAP device and all related supplies As directed] cyanocobalamin (vitamin B-12) 500 mcg PO DAILY diphenhydramine HCl (Banophen) 25 mg PO TID PRN docusate sodium 100 mg PO BID estradiol (Yuvafem) 10 mcg vaginal 2XW 28 days ferrous sulfate 325 mg PO DAILY furosemide 40 mg PO QAM gabapentin 800 mg (2 x 400 mg) PO TID 30 days haloperidol 5 mg PO BID haloperidol 10 mg PO BEDTIME lactulose 10 grams PO .prn lamotrigine 100 mg PO DAILY lamotrigine 50 mg PO DAILY lorazepam 1 mg PO BID PRN lorazepam 1 mg PO BID PRN meclizine 25 mg PO TID PRN 30 days midodrine 5 mg PO TID naproxen 500 mg PO BID nitrofurantoin monohyd/m-cryst 100 mg (Macrobid) 100 mg PO Q12H 5 days omeprazole 20 mg PO DAILY oxybutynin chloride ER 5 mg PO DAILY 90 days polyethylene glycol 3350 (Miralax) 17 grams PO DAILY potassium citrate ER 0 mEq PO prazosin 1 mg PO BEDTIME sennosides (Senna Lax) 17.2 mg (2 x 8.6 mg) PO BEDTIME sumatriptan succinate take 1 tab at onset of headache; if no relief may repeat 1 tab after at least 2 hrs; max = 4 tabs/24 hr PO tamsulosin 0.4 mg PO BEDTIME 14 days tramadol 100 mg (2 x 50 mg) PO Q8H PRN 30 days trazodone 50 mg PO BEDTIME PRN zinc gluconate 10 mg PO DAILY HPI HPI Comments History of Present Illness Details This?is a?51?yo female who is s/p RYGB 06/16/2016. Weight at last visit on 08/11/2022 was 167 pounds with a BMI of 29.6, weight today is 162.6 pounds, representing a 3.4 pound weight loss with a BMI today of 29.3.? No complaints of nausea, emesis, abdominal pain or reflux. Pt reports her psychiatrist is adjusting her regimen to try to figure out what is causing her tardive dyskinesia. Has been having jaw movement/pain. Present meal plan includes: 1 scoop Pure Protein in 8oz 1% milk- 33g Pure Protein bar- 20g- OR has been having fish for lunch, perhaps 3oz, with salad Dinner of 3oz protein (21g)- has been having salad and salmon or chicken or beef will drink water and zero calorie flavor enhancer Goal of 70g/day. Exercise routine includes: recommended Sit and Be Fit or MM videos, trying to do 3x/week has been doing some [employer] classes still having some leg weakness Pt continues to complain of issues of excess skin of abdomen. Of note, she has had a previous panniculectomy with Dr. Barraza at [facility]. She gets rashes at scar line and has some discomfort on left side from excess skin rubbing against clothing. When moisture collects in skin fold she notices an unpleasant odor. She has to wear a binder when she exercises at the gym to prevent discomfort. She has tried clotimazole ointment but this has not completely resolved her issues. Pt reports she spoke to PCP and he was willing to clear her for surgery; reports a document was sent to us. [facility] Medical History Anxiety Asthma Avascular necrosis of femoral head Bilateral carpal tunnel syndrome Chronic constipation Diverticulosis Dizziness of unknown etiology Dyspareunia GERD (gastroesophageal reflux disease) Hx of schizophrenia Hyperlipidemia Incisional hernia without obstruction or gangrene Ingrown toenail Insomnia Iron deficiency anemia Lumbar degenerative disc disease Major depression, recurrent Migraine Obesity (BMI 30-39.9) Orthostatic hypotension MIGUEL (obstructive sleep apnea) Panic attacks Peroneal neuropathy PTSD (post-traumatic stress disorder) Pyelonephritis Renal cyst Sacroiliitis Spondylosis of lumbar spine Tremor Tubular adenoma Vitamin D deficiency Surgical History H/O left nephrectomy History of bilateral breast reduction surgery History of bladder repair surgery (~03/2015) History of bladder surgery (~10/2009) History of cholecystectomy History of colonoscopy History of endoscopy (~06/2016) History of gastric bypass (~2008) History of hernia repair (~03/29/10) History of hysterectomy History of incisional hernia repair (~1999) History of surgery Hx of cystoscopy Hx of umbilical hernia repair (~1999) S/P cystoscopy (~07/30/12) S/P laparoscopic sleeve gastrectomy S/P panniculectomy Family History Father Liver cancer Mother Breast cancer Sister Lung cancer Other Mental health problem Social History Household Members: Spouse and Family Housing: House Do you presently have visiting nurse or other home services: Yes Alcohol intake: never Patient Tobacco Use Status: Never used Tobacco e-Cigarette/Vaping Use: Never Used Second Hand Smoke Exposure: No Advance Directives Date on File: 07/12/21 service: No Current occupational status: disabled Sexual orientation: Straight/Heterosexual Cognitive needs: No Hearing needs: No Vision needs: Yes Female Reproductive History Menstrual Age of Menarche: 13 Assessment & Plan Assessment & Plan (1) Overweight (BMI 25.0-29.9): Code(s): E66.3 - Overweight (2) Symptomatic abdominal panniculus: Code(s): E65 - Localized adiposity (3) History of gastric bypass: Onset Date: ~2008 Comment: revision of GBP Jun 2016 Code(s): Z98.84 - Bariatric surgery status Plan Pt is doing well on current meal plan, getting adequate protein; has also increased exercise and is losing weight. Pt would possibly be a candidate for panniculectomy but would need to be determined after Dr. Moody reviews all records, once she meets BMI goal. Will discuss pt's case with him to determine candidacy for skin removal surgery and any other needed workup. Per pt, PCP has cleared her for skin removal surgery; will contact office for documentation. Continue clotrimazole ointment for issues of ongoing rashes of skin folds. Pt will continue to focus on weight loss with goal of additional 5-10lbs weight loss. Will set up next visit after speaking with Dr. Moody. Patient is overweight and with ongoing issues of excess skin, and is not considered stable at this time. I spent a total of 30 minutes reviewing/updating records, examining the patient and counseling the patient on weight management as detailed above. Coding Level of Care Code Est Pt Level 4 (15617) Diagnoses Overweight (BMI 25.0-29.9) E66.3 Symptomatic abdominal panniculus E65 History of gastric bypass Z98.84
[2022-11-08 13:00] VITALS: BP 114/63; PULSE 69; TEMP 36.4; O2SAT 99; BMI 29.3
== END 2022-11-08 13:18 | disposition home or self-care (01) ==
PROVIDERS: PCP Internal Medicine; Visit Provider Physician Assistant Surgical
DX: E66.3 Overweight (principal); Z68.29 Body mass index [BMI] 29.0-29.9, adult; E65 Localized adiposity; Z98.84 Bariatric surgery status
CPT/HCPCS: 99214

== ENCOUNTER → 2022-11-08 12:34 | Outpatient (BNVA) | payer OTHER, SELFPAY | PROVIDERS: PCP Internal Medicine; Visit Provider Physician Assistant Surgical | DX: E66.3 Overweight (principal); E65 Localized adiposity; Z98.84 Bariatric surgery status; Z68.29 Body mass index [BMI] 29.0-29.9, adult | CPT/HCPCS: 99212 ==

== ENCOUNTER 2022-11-24 14:55 | Outpatient (REF) | payer OTHER, SELFPAY ==
--- NOTE | ~2022-11-24 | MM_ITS ---
EXAMINATION: MM SCREENING DIGITAL BREAST TOMOSYNTHESIS, BILATERAL CLINICAL INFORMATION: Screening. Asymptomatic. The lifetime risk of breast cancer based on the Tyrer-Cuzick Model is 17.8%. COMPARISON: Mammography: 10/27/2021, and dating back to 2018. TECHNIQUE: Digital breast tomosynthesis is performed in both the craniocaudal and mediolateral oblique views along with computer-aided detection (CAD). Synthesized 2D images are generated from the tomosynthesis. In addition bilateral 3-D full-field CC nipple in profile views were obtained. FINDINGS: There are scattered areas of fibroglandular density (ACR BI-RADS breast composition Category b). There are no suspicious masses, suspicious grouped calcifications, or areas of architectural distortion. The parenchymal pattern is stable from prior exams. Area of parenchymal asymmetry in the anterior upper 12:00 right breast is unchanged from numerous exams and benign. Previously seen dystrophic breast calcifications have all resolved. Retroareolar slightly medial tiny circumscribed nodule has remained unchanged over numerous prior exams and is benign. Its position appears to change slightly when the nipple is in profile and when the nipple is not. Nevertheless, this is the same entity. Previously this was calcified, and is likely a benign fibroadenoma. MM/MM tomosynthesis screening BI IMPRESSION: No mammographic evidence of malignancy. Stable benign findings. ASSESSMENT: BI-RADS BI-RADS 2 - Benign Findings RECOMMENDATION: Routine annual mammography screening. 1 year F/U This examination should not preclude the clinical evaluation of a suspicious palpable abnormality. This patient's information was entered into a reminder system with a target due date for their next mammogram.
== END 2022-11-24 14:56 | disposition home or self-care (01) ==
LOC: HO.MAMMO 14:55
PROVIDERS: PCP Internal Medicine; Visit Provider Internal Medicine
DX: Z12.31 Encounter for screening mammogram for malignant neoplasm of breast (principal)
CPT/HCPCS: 77063; 77067

== ENCOUNTER → 2022-11-24 15:45 | Outpatient (BNV) | payer OTHER, SELFPAY | PROVIDERS: PCP Internal Medicine; Visit Provider Radiology Diagnostic Radiology | DX: Z12.31 Encounter for screening mammogram for malignant neoplasm of breast (principal) | CPT/HCPCS: 77063; 77067 ==

== ENCOUNTER 2022-12-21 13:41 | Outpatient (AMB) | payer OTHER, SELFPAY ==
--- NOTE | 2022-12-21 13:50 | MHC.OFFVIS ---
Intake Vital Signs 12/21/22 13:55 Weight 165 lb 4 oz BP 110/68 Blood Pressure Location Lt brachial Position Sitting Pulse 64 Pulse Source Pulse Oximeter Pulse Oximetry (%) 97 Oxygen Delivery Method Room Air Intake Visit Reasons: 4m f/u MIGUEL - Confirmed Inspector Packer Glass Container Required: Yes Inspector Packer Glass Container Name: Willy [id number] Allergies acetaminophen Adverse Reaction (Unknown, Verified 12/21/22 13:51) Unknown HPI HPI Comments History of Present Illness Details 52 y/o female patient presents for follow up of sleep study. 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 The home sleep study result was significant for mild degree of sleep apnea. The AHI was 5/hr and oxygen mitul was 81%. Pt started APAP [id number]. The compliance and therapy response(11/09/22-12/08/22) reviewed. The usage days 80% and the average usage hours 5 hrs and 30 min. The mean pressure is 7.7 and the AHI was 4.2/hr. Pt reports she sleeps well with CPAP, but did use CPAP every night due to nasal congestion and cold. However, she feels refreshed in the morning and has more energy during daytime. FORMERLY [facility], [facility]–1983 Medical History Anxiety Asthma Avascular necrosis of femoral head Bilateral carpal tunnel syndrome Chronic constipation Diverticulosis Dizziness of unknown etiology Dyspareunia GERD (gastroesophageal reflux disease) Hx of schizophrenia Hyperlipidemia Incisional hernia without obstruction or gangrene Ingrown toenail Insomnia Iron deficiency anemia Lumbar degenerative disc disease Major depression, recurrent Migraine Obesity (BMI 30-39.9) Orthostatic hypotension MIGUEL (obstructive sleep apnea) Panic attacks Peroneal neuropathy PTSD (post-traumatic stress disorder) Pyelonephritis Renal cyst Sacroiliitis Spondylosis of lumbar spine Tremor Tubular adenoma Vitamin D deficiency Surgical History H/O left nephrectomy History of bilateral breast reduction surgery History of bladder repair surgery (~03/2015) History of bladder surgery (~10/2009) History of cholecystectomy History of colonoscopy History of endoscopy (~06/2016) History of gastric bypass (~2008) History of hernia repair (~03/29/10) History of hysterectomy History of incisional hernia repair (~1999) History of surgery Hx of cystoscopy Hx of umbilical hernia repair (~1999) S/P cystoscopy (~07/30/12) S/P laparoscopic sleeve gastrectomy S/P panniculectomy Family History Father Liver cancer Mother Breast cancer Sister Lung cancer Other Mental health problem Social History (Updated 12/21/22 @ 13:55 by Charlette Felton CMA) Household Members: Spouse and Family Housing: House Do you presently have visiting nurse or other home services: Yes Alcohol intake: never Patient Tobacco Use Status: Never used Tobacco e-Cigarette/Vaping Use: Never Used Second Hand Smoke Exposure: No Advance Directives Date on File: 07/12/21 service: No Current occupational status: disabled Sexual orientation: Straight/Heterosexual Cognitive needs: No Hearing needs: No Vision needs: Yes Female Reproductive History Menstrual Age of Menarche: 13 Review of Systems Const All systems reviewed & are unremarkable except as noted in HPI and below ENT Reports Normal hearing present Neuro Reports Normal hearing present Physical Exam Vital Signs: Last Vital Signs Pulse 64 12/21/22 13:55 BP 110/68 12/21/22 13:55 Pulse Ox 97 12/21/22 13:55 Oxygen Delivery Method Room Air 12/21/22 13:55 Const General: cooperative Nutritional Appearance: obese Orientation/consciousness: patient oriented x3 Limitations: language barrier (Panamanian speaking only) Neck Neck: Yes full ROM and Yes supple Resp Effort & Inspection: normal respiratory effort and able to speak in complete sentences Neuro Other: mouth tardive dyskinesia General: patient oriented x3, moves all extremities and no focal motor deficits Cranial nerves: Yes Bilaterally intact EOM present, Yes Midline tongue present, Yes Symmetric palate elevation present, Yes Normal hearing present, Yes Ability to bilaterally rotate head present and Yes Ability to bilaterally elevate shoulders present Cognition (Neuro): normal cognition Psych Appearance: grossly normal Mental Status: mental status grossly normal Affect: normal affect Attitude: cooperative Assessment & Plan Assessment & Plan (1) MIGUEL (obstructive sleep apnea): Comment: mild degree of sleep apnea. The AHI was 5/hr and oxygen mitul was 81%. Code(s): G47.33 - Obstructive sleep apnea (adult) (pediatric) Plan Continue to use APAP [id number] as patient experiences good clinical effects. Stressed compliance, use CPAP nightly and more than 4hrs. Clean mask and tubing regularly. Coding Level of Care Code Est Pt Level 3 (24986) Diagnoses MIGUEL (obstructive sleep apnea) G47.33
[2022-12-21 13:55] VITALS: BP 110/68; PULSE 64; O2SAT 97
== END 2022-12-21 14:09 | disposition home or self-care (01) ==
PROVIDERS: Visit Provider Nurse Practitioner Family
DX: G47.33 Obstructive sleep apnea (adult) (pediatric) (principal)
CPT/HCPCS: 99213

== ENCOUNTER → 2022-12-21 13:41 | Outpatient (BNVA) | payer OTHER, SELFPAY | PROVIDERS: Visit Provider Nurse Practitioner Family | DX: G47.33 Obstructive sleep apnea (adult) (pediatric) (principal) | CPT/HCPCS: 99212 ==

== ENCOUNTER 2023-01-23 08:38 | Outpatient (REF) | payer OTHER, SELFPAY ==
[2023-01-23 11:39] LABS: MANUAL DIFF FLAG NO
[2023-01-23 12:13] LABS: Basophils Absolute Auto 0.1 X10*3/uL (0.0-0.2); Basophils Percent Auto 0.7 % (0-2); Eosinophils Absolute Auto 0.1 X10*3/uL (0.0-0.4); Hematocrit 47.3 % (37.0-47.0); Hemoglobin 15.6 g/dl (12.0-16.0); Imm Gran Abs Auto 0.02 X10*3/uL (0.00-0.03); Imm Gran Pct Auto 0.3 % (0.0-0.4); Lymphocytes Absolute Auto 1.9 X10*3/uL (1.2-4.9); Mean Corpuscular Hemoglobin 33.5 pg (27.0-33.0); Mean Corpuscular Volume 101.5 fL (80.0-98.0); Mean Platelet Volume 10.2 fL (9.4-12.3); Monocytes Absolute Auto 0.4 X10*3/uL (0.1-1.2); Monocytes Percent Auto 5.7 % (2-11); Neutrophils Absolute Auto 4.4 x10*3/uL (2.0-8.3); Neutrophils Percent Auto 64.3 % (45-73); Platelet Count 301 X10*3/uL (160-400); Red Blood Count 4.66 X10*6/uL (4.20-5.50); Red Cell Distribution Width 12.3 % (11.0-16.0); White Blood Count 6.8 X10*3/uL (4.8-10.8)
[2023-01-23 12:20] LABS: Estimated Average Glucose 103 mg/dL; Hemoglobin A1c % 5.2 % (<6.0)
[2023-01-23 13:06] LABS: Alanine Aminotransferase 100 U/L (0-31); Albumin Level 3.8 g/dL (3.5-5.0); Alkaline Phosphatase 161 U/L (39-117); Anion Gap 14 (12-20); Aspartate Amino Transferase 39 U/L (5-31); Bilirubin Total 0.7 mg/dL (0.0-1.0); Blood Urea Nitrogen 15 mg/dL (9-16); Calcium 9.5 mg/dL (8.4-10.2); Carbon Dioxide 22 mmol/L (22-29); Chloride 110 mmol/L (96-108); Cholesterol 259 mg/dL (<200); Estimated Glomerular Filt Rate 57; Free T4 (Free Thyroxine) 0.87 ng/dL (0.71-1.85); Glucose Random 92 mg/dL (60-115); HDL Cholesterol 60 mg/dL (>40); LDL Cholesterol Calculated 181 mg/dL (<100); Potassium 4.4 mmol/L (3.3-5.1); Sodium 142 mmol/L (135-145); Thyroid Stimulating Hormone 0.55 uIU/mL (0.32-4.0); Triglycerides 93 mg/dL (<150)
== END 2023-01-23 08:39 | disposition home or self-care (01) ==
LOC: HO.HHCL 08:38
PROVIDERS: Visit Provider Psychiatry & Neurology Psychiatry
DX: Z79.899 Other long term (current) drug therapy (principal)
CPT/HCPCS: 36415; 80053; 80061; 83036; 84439; 84443; 85025

== ENCOUNTER 2023-02-17 10:29 | Outpatient (REF) | payer OTHER, SELFPAY ==
[2023-02-18 11:56] LABS: BV Int Neg Control Negative (Negative); BV Int Pos Control Positive (Positive)
== END 2023-02-17 10:30 | disposition home or self-care (01) ==
LOC: HO.LNP 10:29
PROVIDERS: Visit Provider Advanced Practice Midwife
DX: Z01.411 Encounter for gynecological examination (general) (routine) with abnormal findings (principal); R30.0 Dysuria; N89.8 Other specified noninflammatory disorders of vagina
CPT/HCPCS: 81002; 87086; 87088; 87186; 87480; 87510; 87660; 99396

== ENCOUNTER 2023-02-17 10:29 | Outpatient (AMB) | payer OTHER, SELFPAY ==
--- NOTE | 2023-02-17 10:37 | MHC.OFFVIS ---
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 Scribed for JILL Lipscomb by Delia Ruiz remote medical coder, on 02/17/2023 at 11:03 am EST. Batteryman Required: Yes Batteryman Language: Manager Room Name: [facility] L[facility] Information Interpreted: non-clinical & clinical Fire Inspector: Fire Inspector Present (Amber LAMB) Accompanied by: Self / Same As Patient Allergies acetaminophen Adverse Reaction (Unknown, Verified 02/17/23 10:46) Unknown Post menopausal: Yes HPI HPI Comments History of Present Illness Details She is a postmenopausal woman presenting for annual exam. Doing well with no melter clerk concerns. Patient admits she tries to eat a healthy diet including Calcium and Vitamin D. She stays active with exercise. Currently not sexually active. Reports some current itching. Denies family hx of colon and ovarian cancer. Last pap smear 02/13/12 Last mammogram UTD on colonoscopy. [facility] Medical History Obesity (BMI 30-39.9) Renal cyst Diverticulosis Tubular adenoma Asthma Spondylosis of lumbar spine Sacroiliitis Dizziness of unknown etiology Chronic constipation Hx of schizophrenia Panic attacks PTSD (post-traumatic stress disorder) MIGUEL (obstructive sleep apnea) Dyspareunia Pyelonephritis Ingrown toenail Iron deficiency anemia Major depression, recurrent Anxiety Insomnia Tremor Orthostatic hypotension Incisional hernia without obstruction or gangrene Avascular necrosis of femoral head Bilateral carpal tunnel syndrome Peroneal neuropathy Lumbar degenerative disc disease Vitamin D deficiency GERD (gastroesophageal reflux disease) Migraine Hyperlipidemia Surgical History History of colonoscopy History of surgery Hx of cystoscopy History of bilateral breast reduction surgery History of hysterectomy History of cholecystectomy History of endoscopy (~06/2016) History of bladder repair surgery (~03/2015) S/P cystoscopy (~07/30/12) S/P panniculectomy History of hernia repair (~03/29/10) History of bladder surgery (~10/2009) History of gastric bypass (~2008) History of incisional hernia repair (~1999) Hx of umbilical hernia repair (~1999) H/O left nephrectomy S/P laparoscopic sleeve gastrectomy Family History Father Liver cancer Mother Breast cancer Sister Lung cancer Other Mental health problem Social History Household Members: Spouse and Family Housing: House Do you presently have visiting nurse or other home services: Yes Alcohol intake: never Patient Tobacco Use Status: Never used Tobacco e-Cigarette/Vaping Use: Never Used Second Hand Smoke Exposure: No Advance Directives Date on File: 07/12/21 service: No Current occupational status: disabled Sexual orientation: Straight/Heterosexual Cognitive needs: No Hearing needs: No Vision needs: Yes Female Reproductive History Menstrual Age of Menarche: 13 Menopause type: surgical Total pregnancies: 4 Full term: 4 Date of last pap smear: 02/13/12 Date of Mammogram: 11/24/22 Physical Exam Vital Signs: Last Vital Signs BP 114/66 02/17/23 10:38 BMI result Body Mass Index 28.9 Const General: cooperative, healthy appearing, no acute distress, well developed and alert Orientation/consciousness: patient oriented x3 HEENT Head: Yes normal to inspection Eyes General: appearance normal, both eyes and all related structures Neck Neck: Yes normal visual inspection Thyroid: Thyroid normal Chest Other: breast reduction scarring Chest palpation & inspection: normal inspection of the chest Breast/axilla inspection: normal inspection of the breasts (no puckering, dimpling, peau de orange, retraction, discharge, masses) Breast/axilla palpation: normal palpation of the breasts Resp Effort & Inspection: normal respiratory effort GI Other: abdominoplasty scarring Inspection: Yes normal to inspection Palpation (GI): Soft to palpation (to palpation) Rectal Exam - Female: deferred General: Yes bladder normal to inspection External Female Exam: normal external appearance and normal appearance of the urethra Speculum Exam - Vagina: normal appearance of the vagina, normal palpation and normal vaginal discharge Speculum Exam - Cervix: Cervix absent Bimanual exam- vagina & uterus: normal palpation, uterus absent and other (vag cuff; no lesions no nodules) Bimanual Exam- Adnexa, other: normal adnexae and no masses Skin General skin exam: no rashes or lesions noted Neuro General: patient oriented x3 Cognition (Neuro): normal cognition Extrem General: Yes normal to inspection Psych Attitude: cooperative Thought process: Normal thought process present Results AMB Urinalysis Dipstick UR Leukocytes Moderate Last Edit by Amber Bird CMA on 02/17/23 11:02 UR Nitrite Positive Last Edit by Amber Bird, HUNTER on 02/17/23 11:02 UR Urobilinogen Normal Last Edit by Amber Bird CMA on 02/17/23 11:02 UR Protein Negative Last Edit by Amber Bird, AUTO BODY REPAIR TEACHER on 02/17/23 11:02 UR Ph 6.0 Last Edit by Amber Bird, AUTO BODY REPAIR TEACHER on 02/17/23 11:02 UR Blood Negative Last Edit by Amber Bird, AUTO BODY REPAIR TEACHER on 02/17/23 11:02 UR Specific [place] 1.020 Last Edit by Amber Bird, HUNTER on 02/17/23 11:02 UR Ketone Negative Last Edit by Amber Bird, HUNTER on 02/17/23 11:02 UR Bilirubin Negative Last Edit by Amber Bird, HUNTER on 02/17/23 11:02 UR Glucose Negative Last Edit by Amber Bird CMA on 02/17/23 11:02 Results Reviewed Results Reviewed: Laboratory Last Values Urine pH (Clinic) 6.0 02/17/23 11:00 Specific [place] (Clinic) 1.020 02/17/23 11:00 Ur Protein (Clinic) Negative 02/17/23 11:00 Ur Ketones (Clinic) Negative 02/17/23 11:00 Urine Blood (Clinic) Negative 02/17/23 11:00 Urine Nitrite Positive 02/17/23 11:00 Urine Bilirubin (Clinic) Negative 02/17/23 11:00 Urobilinogen (Clinic) Normal 02/17/23 11:00 Leukocyte Esterase (Clinic) Moderate 02/17/23 11:00 Urine Glucose (Clinic) Negative 02/17/23 11:00 Assessment & Plan Assessment & Plan (1) Encounter for well woman exam: Code(s): Z01.419 - Encounter for gynecological examination (general) (routine) without abnormal findings Plan: Discussed: Current recommendations for pap smears per ASCCP guidelines. Breast awareness and periodic self breast exams. Encouraged yearly mammograms. Maintaining a healthy lifestyle including a well balanced diet including Calcium and Vitamin D and routine exercise. All of her questions and concerns were addressed to the best of my ability. RTO in 1 year for AG. (2) Dysuria: Code(s): R30.0 - Dysuria Plan: Hydrate well with water. Rx sent to pharmacy. Orders: Orders Urine Culture Today N39.0 - Urinary tract infection, site not specified, R30.0 - Dysuria AMB Urinalysis Dipstick Today N39.0 - Urinary tract infection, site not specified, R30.0 - Dysuria Bacterial Vaginosis Panel Today N89.8 - Other specified noninflammatory disorders of vagina Medications: New nitrofurantoin monohyd/m-cryst 100 mg (Macrobid) must administer with a meal/food 100 mg PO BID 10 caps 0RF UTI 5 days Coding Level of Care Code Est Pt Prev Care 40-64y(87726) Diagnoses Encounter for well woman exam Z01.419 Dysuria R30.0
[2023-02-17 10:38] VITALS: BP 114/66; BMI 28.9
== END 2023-02-17 11:14 | disposition home or self-care (01) ==
PROVIDERS: Visit Provider Advanced Practice Midwife
DX: Z01.419 Encounter for gynecological examination (general) (routine) without abnormal findings (principal); R30.0 Dysuria; N39.0 Urinary tract infection, site not specified
CPT/HCPCS: 99396

== ENCOUNTER 2023-02-20 08:27 | Outpatient (REF) | payer OTHER, SELFPAY ==
[2023-02-20 08:54] LABS: MANUAL DIFF FLAG NO
[2023-02-20 09:42] LABS: Basophils Percent Auto 0.7 % (0-2); Eosinophils Absolute Auto 0.1 X10*3/uL (0.0-0.4); Hematocrit 46.2 % (37.0-47.0); Hemoglobin 15.6 g/dl (12.0-16.0); Imm Gran Abs Auto 0.01 X10*3/uL (0.00-0.03); Imm Gran Pct Auto 0.2 % (0.0-0.4); Lymphocytes Absolute Auto 1.6 X10*3/uL (1.2-4.9); Lymphocytes Percent Auto 25.6 % (20-40); Mean Corpuscular HGB Conc 33.8 g/dl (31.0-35.0); Mean Corpuscular Hemoglobin 33.4 pg (27.0-33.0); Mean Corpuscular Volume 98.9 fL (80.0-98.0); Mean Platelet Volume 9.3 fL (9.4-12.3); Monocytes Absolute Auto 0.3 X10*3/uL (0.1-1.2); Monocytes Percent Auto 5.2 % (2-11); Neutrophils Absolute Auto 4.1 x10*3/uL (2.0-8.3); Neutrophils Percent Auto 67.3 % (45-73); Platelet Count 318 X10*3/uL (160-400); Red Blood Count 4.67 X10*6/uL (4.20-5.50); Red Cell Distribution Width 11.9 % (11.0-16.0); White Blood Count 6.1 X10*3/uL (4.8-10.8)
[2023-02-20 09:43] LABS: Appearance Urine Cloudy; Color Urine Dark Yellow; Glucose Urine UA Negative (Negative); Leukocyte Esterase Urine Trace (Negative); Nitrite Urine Negative (Negative); PH 7.5 (5.0-9.0); Specific Gravity - Urine 1.015 (1.005-1.025); UMIC TRIGGER UACC YES; Urine Blood Negative (Negative); Urine Ketones Trace mg/dL (Negative); Urine Protein Negative (Neg-Trace)
[2023-02-20 09:46] LABS: Bacteria Urine Trace (None Seen); Hyaline Casts Urine 0-2 /LPF (0-2); Squamous Epithelial Cell Urine 0-2 /HPF (0-2); WBC Urine 0-5 /HPF (0-5)
[2023-02-20 10:37] LABS: Alanine Aminotransferase 16 U/L (0-31); Alkaline Phosphatase 148 U/L (39-117); Anion Gap 13 (12-20); Aspartate Amino Transferase 16 U/L (5-31); Bilirubin Total 0.6 mg/dL (0.0-1.0); Blood Urea Nitrogen 13 mg/dL (9-16); Calcium 9.8 mg/dL (8.4-10.2); Carbon Dioxide 22 mmol/L (22-29); Chloride 110 mmol/L (96-108); Cholesterol 260 mg/dL (<200); Estimated Glomerular Filt Rate 53; Glucose Fasting 109 mg/dL (60-99); HDL Cholesterol 56 mg/dL (>40); Potassium 4.4 mmol/L (3.3-5.1); Sodium 141 mmol/L (135-145); Total Protein 7.2 g/dL (6.5-8.0)
[2023-02-20 10:46] LABS: LDL Cholesterol Calculated 184 mg/dL (<100); Triglycerides 102 mg/dL (<150)
[2023-02-20 10:53] LABS: Vitamin D 25-OH Total 43.8 ng/mL (>30)
== END 2023-02-20 08:28 | disposition home or self-care (01) ==
LOC: HO.LAB 08:27
PROVIDERS: PCP Internal Medicine; Visit Provider Internal Medicine
DX: E55.9 Vitamin D deficiency, unspecified (principal); E78.00 Pure hypercholesterolemia, unspecified; I10 Essential (primary) hypertension; R30.0 Dysuria
CPT/HCPCS: 36415; 80053; 80061; 81001; 82306; 84443; 85025

== ENCOUNTER 2023-02-21 15:15 | Outpatient (AMB) | payer OTHER, SELFPAY ==
[2023-02-21 15:20] VITALS: BP 102/86; PULSE 87; O2SAT 98; BMI 28.5
--- NOTE | 2023-02-21 15:20 | MHC.PC.OV ---
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 Accompanied by: Self / Same As Patient Allergies acetaminophen Adverse Reaction (Unknown, Verified 07/14/23 16:02) Unknown atorvastatin Adverse Reaction (Severe, Uncoded 07/14/23 16:02) elevated liver enzymes Medication List - Last Reconciled 02/21/23 by Hung Montelongo MD albuterol sulfate 90 mcg/actuation (ProAir HFA) 2 puffs inhalation Q6H PRN 30 days atorvastatin 10 mg PO BEDTIME benztropine 1 mg PO BID cholecalciferol (vitamin D3) (Vitamin D3) 25 mcg PO DAILY 90 days clotrimazole 1% 1 appl topical BID [CPAP device and all related supplies As directed] cyanocobalamin (vitamin B-12) 500 mcg PO DAILY diphenhydramine HCl (Banophen) 25 mg PO TID PRN docusate sodium 100 mg PO BID estradiol (Yuvafem) 10 mcg vaginal 2XW 28 days ferrous sulfate 325 mg PO DAILY furosemide 40 mg PO QAM gabapentin 800 mg (2 x 400 mg) PO TID 30 days haloperidol 10 mg PO BEDTIME lactulose 10 grams PO .prn lamotrigine 100 mg PO DAILY lorazepam 1 mg PO BID PRN meclizine 25 mg PO TID PRN 30 days midodrine 5 mg PO TID naproxen 500 mg PO BID nitrofurantoin monohyd/m-cryst 100 mg (Macrobid) 100 mg PO BID 5 days omeprazole 20 mg PO DAILY oxybutynin chloride ER 5 mg PO DAILY 90 days polyethylene glycol 3350 (Miralax) 17 grams PO DAILY potassium citrate ER 0 mEq PO prazosin 1 mg PO BEDTIME sennosides (Senna Lax) 17.2 mg (2 x 8.6 mg) PO BEDTIME sumatriptan succinate take 1 tab at onset of headache; if no relief may repeat 1 tab after at least 2 hrs; max = 4 tabs/24 hr PO tramadol 100 mg (2 x 50 mg) PO Q8H PRN 30 days trazodone 50 mg PO BEDTIME PRN zinc gluconate 10 mg PO DAILY Tobacco use date assessed: 02/21/23 Dental Screening Dental Screen Date: 02/21/23 Did you have a dental visit in the last 12 months?: Yes Did you have a dental problem in the last 6 months where you did not have access to dental care?: No Was dental information given to patient?: Patient has dentist HPI hyperlipidemia, elevated LFTs HPI Details Patient comes in today for her follow up visit States that she feels okay She continues to experience on and off dizziness but denies any headaches Denies any chest pains, no increased SOB (+) on and off nausea but she denies any vomiting; (+) on and off abdominal pain No change in bowel habits noted Patient continues to struggle with chronic low back pain and is seeing pain management for this regularly Had her follow up labs done yesterday - to discuss her results [facility] Medical History (Updated 07/17/23 @ 01:47 by Hung Montelongo MD) Chronic kidney disease, stage III (moderate) Obesity (BMI 30-39.9) Renal cyst Diverticulosis Tubular adenoma Asthma Spondylosis of lumbar spine Sacroiliitis Dizziness of unknown etiology Chronic constipation Hx of schizophrenia Panic attacks PTSD (post-traumatic stress disorder) MIGUEL (obstructive sleep apnea) Dyspareunia Pyelonephritis Ingrown toenail Iron deficiency anemia Major depression, recurrent Anxiety Insomnia Tremor Orthostatic hypotension Incisional hernia without obstruction or gangrene Avascular necrosis of femoral head Bilateral carpal tunnel syndrome Peroneal neuropathy Lumbar degenerative disc disease Vitamin D deficiency GERD (gastroesophageal reflux disease) Migraine Hyperlipidemia Surgical History History of left nephrectomy (~1999) History of colonoscopy History of surgery Hx of cystoscopy History of bilateral breast reduction surgery History of hysterectomy History of cholecystectomy History of endoscopy (~06/2016) History of bladder repair surgery (~03/2015) S/P cystoscopy (~07/30/12) S/P panniculectomy History of hernia repair (~03/29/10) History of bladder surgery (~10/2009) History of gastric bypass (~2008) History of incisional hernia repair (~1999) Hx of umbilical hernia repair (~1999) H/O left nephrectomy S/P laparoscopic sleeve gastrectomy Family History Father Liver cancer Mother Breast cancer Sister Lung cancer Other Mental health problem Social History Household Members: Spouse and Family Housing: House Do you presently have visiting nurse or other home services: Yes Alcohol intake: never Patient Tobacco Use Status: Never used Tobacco e-Cigarette/Vaping Use: Never Used Second Hand Smoke Exposure: No Advance Directives Date on File: 07/12/21 service: No Current occupational status: disabled Sexual orientation: Straight/Heterosexual Cognitive needs: No Hearing needs: No Vision needs: Yes Female Reproductive History Menstrual Age of Menarche: 13 Questionnaire PHQ-9 Over the last 2 weeks, how often have you been bothered by any of the following problems? 1. Little interest or pleasure in doing things: several days 2. Feeling down, depressed, or hopeless: several days 3. Trouble falling or staying asleep, or sleeping too much: several days 4. Feeling tired or having little energy: several days 5. Poor appetite or overeating: several days 6. Feeling bad about yourself - or that you are a failure or have let yourself or your family down: not at all 7. Trouble concentrating on things, such as reading the newspaper or watching television: not at all 8. Moving or speaking so slowly that other people could have noticed. Or the opposite - being so fidgety or restless that you have been moving around a lot more than usual: not at all 9. Thoughts that you would be better off or of hurting yourself in some way: not at all Total score: 5 Depression Screening Interpretation: Positive Depression Screening Follow-up: Existing condition and In treatment Depression Screening Done: Yes 87851 - PHQ-9 Billing: Yes Source: Developed by Drs. Vincenzo Mayo, Beverly Hernandez, Angel Vogel and colleagues, with an educational juan antonio from [employer]. Thrive Questionnaire Date Thrive assessed: 02/21/23 I am a: Patient What is your living situation today?: I have a steady place to live Within the past 12 months, did the food you bought not last and you didn't have the money to get more?: Never true Within the past 12 months, did you worry whether your food would run out before you got money to buy more?: Never true Do you have trouble paying for medicines?: No Do you have trouble getting transportation to medical appointments?: No Do you have trouble paying your heating and electricity bill?: No Do you have trouble taking care of your child, family member or friend?: No Do you have trouble with day-to-day activities such as bathing, preparing meals, shopping, managing finances, etc.?: No Are you currently unemployed and looking for a job?: No Are you interested in more education?: No Please select the resources that you would like help with: None Currently or been in a relationship where the following occur: no concerns reported AUDIT C Alcohol Use Questionnaire (AUDIT-C) 1. How often do you have a drink containing alcohol?: Never 3. How often do you have six or more drinks on one occasion?: Never Total Score: 0 Score Reviewed/Action Taken: Yes JAMIE-7 AMB Questionnaire JAMIE-7 Date JAMIE - 7 assessed: 02/21/23 Feeling nervous, anxious, or on edge: 0 = Not at all Not being able to stop or control worryin = Not at all Worrying too much about different things: 0 = Not at all Trouble relaxin = Not at all Being so restless that it is hard to sit still: 0 = Not at all Becoming easily annoyed or irritable: 0 = Not at all Feeling afraid as if something awful might happen: 0 = Not at all Total JAMIE-7 score (0-4 normal; 5-9 mild; 10-14 moderate; 15-21 severe): 0 Source: Developed by Drs. Vincenzo Mayo, Beverly Hernandez, Angel Vogel and colleagues, with an educational juan antonio from [employer]. Review of Systems Const Denies chills, Reports fatigue, Denies fever(s) and Denies headache(s) ENT Denies dysphagia, Reports dizziness (on and off), Denies headache(s), Denies neck pain, Denies odynophagia and Denies sore throat Card Denies chest pain, Denies palpitations and Denies dyspnea Resp Denies cough, Denies dyspnea and Denies wheezing GI Reports abdominal pain (on and off over the right upper quadrant and upper abdomen), Reports constipation (chronic - better controlled lately), Denies dysphagia, Denies heartburn, Denies diarrhea, Reports nausea (on and off), Denies odynophagia and Denies vomiting Denies nocturia, Denies dysuria and Denies urinary urgency Musc Reports back pain (over the lower back - chronic), Reports arthralgias (involving multiple joints) and Denies neck pain Skin/Breast Denies rash Neuro Reports dizziness (on and off) and Denies headache(s) Psych Denies anxiety and Reports depression Endo Reports fatigue and Denies palpitations Aller/Immun Denies wheezing Physical exam (Primary Care) Vital Signs: Last Vital Signs Pulse 87 02/21/23 15:20 BP 102/86 02/21/23 15:20 Pulse Ox 98 02/21/23 15:20 Oxygen Delivery Method Room Air 02/21/23 15:20 BMI result Body Mass Index 28.5 Tobacco/Smoking Status: Tobacco use Status Tobacco use date assessed 02/21/23 02/21/23 15:23 Patient Tobacco Use Status Never used Tobacco 02/21/23 15:23 e-Cigarette/Vaping Use Never Used 02/21/23 15:23 PHQ-9: PHQ-9 Score PHQ-9: Total score 5 07/17/23 21:12 Depression Screening Interpretation: Positive Depression Screening Follow-up: Existing condition and In treatment Thrive Assessment: Date of Thrive Assessment Date Thrive assessed 02/21/23 02/21/23 15:23 Currently or been in a relationship where the following occur: no concerns reported Const General: no acute distress and alert HENMT Ears: TM's normal bilaterally and EAC's normal Throat: Yes posterior oropharynx normal and Yes tonsils normal Neck Neck: Yes no lymphadenopathy and Yes supple Thyroid: Thyroid normal Resp Auscultation: clear to auscultation bilaterally, no rales and no wheezes Cardio Rate: regular rate Rhythm: regular rhythm Heart sounds: no murmurs GI Palpation (GI): Soft to palpation, Tenderness to palpation present (GI) (mild) in the epigastrum and in the RUQ, no guarding and No Rebound tenderness present Back/Spine/Pelvis Thoracic/Lumbar Spine: paraspinal muscle tenderness (over the lumbar region) on the right greater than left and lumbar spinal tenderness Skin Rashes: no rashes Extrem General: Yes no clubbing, cyanosis or edema Results Reviewed Results Reviewed: Laboratory Tests 02/20/23 02/20/23 02/20/23 08:53 08:53 09:30 WBC 6.1 Hgb 15.6 Hct 46.2 Plt Count 318 Sodium 141 Potassium 4.4 Creatinine 1.08 Estimated GFR 53 Fasting Glucose 109 H Calcium 9.8 AST 16 ALT 16 Triglycerides 102 Cholesterol 260 H LDL Cholesterol, Calc 184 H HDL Cholesterol 56 25-OH Vitamin D Total 43.8 TSH 0.50 Ur Specific [place] 1.015 Urine Protein Urine Glucose (UA) Urine Blood Urine Nitrite Ur Leukocyte Esterase 02/20/23 06/29/23 09:30 14:24 WBC Hgb Hct Plt Count Sodium Potassium Creatinine Estimated GFR Fasting Glucose Calcium AST ALT Triglycerides Cholesterol LDL Cholesterol, Calc HDL Cholesterol 25-OH Vitamin D Total TSH Ur Specific [place] Urine Protein Negative Urine Glucose (UA) Negative Urine Blood Negative Negative Urine Nitrite Negative Ur Leukocyte Esterase Trace H Assessment and Plan Assessment & Plan (1) Hyperlipidemia: Code(s): E78.5 - Hyperlipidemia, unspecified Qualifiers: Hyperlipidemia type: pure hypercholesterolemia Qualified Code(s): E78.00 - Pure hypercholesterolemia, unspecified Plan: Results of her labs done yesterday reviewed and discussed with patient - patient's cholesterol levels have remained elevated since she was taken off Atorvastatin a few months ago due to her elevated LFTs Advised that her numbers are still high on her recent labs and have recommended that she try some other cholesterol medications at this time as her LFTs have just now come back down to normal Reinforced low cholesterol diet Will start her on a trial of low dose Rosuvastatin 5 mg QD Will have her recheck her fasting lipids and labs in 1 month for follow up, in case her LFTs start rising again with the addition of Rosuvastatin to her medication regimen She is advised that if she also cannot tolerate low dose Rosuvastatin, then we may need to consider treating her with one of the newer PCSK9 inhibitors Will otherwise have her recheck her labs and fasting lipids again in 3 months prior to her next follow up appt (2) Transaminitis: Code(s): R74.01 - Elevation of levels of liver transaminase levels Plan: Patient's liver enzymes have finally come back down to normal on her follow up labs done yesterday Her LFTs went up again significantly on her labs done back in September 2022, with ALT at 438 and AST at 129; Alk Phos was at 265 and she was immediately taken off her Atorvastatin Abdominal ultrasound done back in June 2021 and again more recently a couple of months ago BOTH came out normal; patient also tested negative for hepatitis, CMV and EBV earlier this year (3) MIGUEL (obstructive sleep apnea): Comment: mild degree of sleep apnea. The AHI was 5/hr and oxygen mitul was 81%. Code(s): G47.33 - Obstructive sleep apnea (adult) (pediatric) Plan: Continue using her CPAP device when sleeping at night daily Follow up with Sleep Medicine as scheduled (4) Chronic constipation: Code(s): K59.09 - Other constipation Plan: Encouraged increased oral fluids and dietary fiber Continue Linzess 145 mcg QD, Docusate 100 mg BID and Miralax 17 gm QD Had EGD and colonoscopy done in 2021 - (+) tubular adenoma; colonoscopy was otherwise normal Follow up with GI as scheduled (5) GERD (gastroesophageal reflux disease): Code(s): K21.9 - Gastro-esophageal reflux disease without esophagitis Qualifiers: Esophagitis presence: without esophagitis Qualified Code(s): K21.9 - Gastro-esophageal reflux disease without esophagitis Plan: Dietary restrictions reinforced (6) Lumbar degenerative disc disease: Code(s): M51.36 - Other intervertebral disc degeneration, lumbar region Plan: Reinforced activity and weight lifting restrictions Continue Gabapentin 800 mg 3 times a day, Tramadol 50 mg 1-2 tablets every 8 hours as needed She underwent physical therapy last year without any significant relief Was seen by [facility] and had a diagnostic SI joint injection under fluoroscopic guidance back in September 2021 and started seeing them again recently; has been scheduled for bilateral therapeutic sacroiliac joint injection under sedation Follow up with [facility] as scheduled (7) Arthralgia: Code(s): M25.50 - Pain in unspecified joint Qualifiers: Joint pain location: other joint Qualified Code(s): M25.59 - Pain in other specified joint Plan: Involving multiple joints, especially over both hips, both elbows and both knees lately X-rays of the knees done back in August 2021 revealed (+) mild OA changes in both knees; hip and elbow x-rays came out normal Continue Gabapentin 800 mg TID and Tramadol 50 mg TID PRN for pain (8) Orthostatic hypotension: Code(s): I95.1 - Orthostatic hypotension Plan: She continues to complain of frequent dizzy spells especially with changes of position Will increase her Midodrine to 10 mg TID She used to see cardiology but has not been seen in a while Will refer her back to cardiology for further evaluation and continuing management of her recurrent orthostasis/hypotension (9) Migraine: Code(s): G43.909 - Migraine, unspecified, not intractable, without status migrainosus Qualifiers: Migraine type: unspecified Status migrainosus presence: without status migrainosus Intractability: not intractable Qualified Code(s): G43.909 - Migraine, unspecified, not intractable, without status migrainosus Plan: Stable lately Continue Sumatriptan 50 mg PRN (10) Vitamin D deficiency: Code(s): E55.9 - Vitamin D deficiency, unspecified Plan: Continue Vitamin D3 1000 units QD (11) Memory impairment: Code(s): R41.3 - Other amnesia Plan: Was referred to and seen by neurology - advised that her memory issues are multifactorial although she was diagnosed with frontotemporal lobe degeneration and dementia as well Follow up with neurology as scheduled (12) Insomnia: Code(s): G47.00 - Insomnia, unspecified Qualifiers: Insomnia type: primary Qualified Code(s): F51.01 - Primary insomnia Plan: Sleep hygiene reinforced Continue Trazodone 50 mg Q HS PRN and Prazosin 1 mg Q HS (13) Anxiety: Code(s): F41.9 - Anxiety disorder, unspecified Plan: Continue Lorazepam 1 mg BID PRN (14) Major depression, recurrent: Code(s): F33.9 - Major depressive disorder, recurrent, unspecified Qualifiers: Active/Remission status: currently active Major depression episode severity: unspecified Qualified Code(s): F33.9 - Major depressive disorder, recurrent, unspecified Plan: Continue Benztropine 1 mg BID, Lamictal 100 mg QD and Haldol 10 mg Q HS Follow-up with Psychiatry as scheduled (15) Overweight (BMI 25.0-29.9): Code(s): E66.3 - Overweight Plan: Reinforced diet; exercise is unrealistic given patient's multiple medical and psychiatric morbidities Plan Follow up in 3 months Orders: Orders Comprehensive [place]. Panel Fast 1 Month E78.00 - Pure hypercholesterolemia, unspecified Complete Blood Count Auto Diff 3 Months I10 - Essential (primary) hypertension Comprehensive [place]. Panel Fast 3 Months E78.00 - Pure hypercholesterolemia, unspecified Vitamin D 25-OH Total 3 Months E55.9 - Vitamin D deficiency, unspecified Lipid Panel 1 Month E78.00 - Pure hypercholesterolemia, unspecified Lipid Panel 3 Months E78.00 - Pure hypercholesterolemia, unspecified TSH reflex Free T4 3 Months E78.00 - Pure hypercholesterolemia, unspecified UA CC w/rflx Micro + Cult 3 Months R30.0 - Dysuria Referrals Cardiology Referral I95.9 - Hypotension, unspecified, R42 - Dizziness and giddiness Medications: New rosuvastatin 5 mg PO DAILY 30 tabs 2RF Changed From midodrine do not give last dose of day after 6PM or within 4 hrs of bedtime 5 mg PO TID 90 tabs 0RF To midodrine do not give last dose of day after 6PM or within 4 hrs of bedtime 10 mg PO TID 30 tabs 0RF Coding Level of Care Code Est Pt Level 4 (44919) Diagnoses Pure hypercholesterolemia E78.00 Hyperlipidemia type: pure hypercholesterolemia Transaminitis R74.01 MIGUEL (obstructive sleep apnea) G47.33 Chronic constipation K59.09 Gastroesophageal reflux disease without esophagitis K21.9 Esophagitis presence: without esophagitis Lumbar degenerative disc disease M51.36 Pain in other joint M25.59 Joint pain location: other joint Orthostatic hypotension I95.1 Migraine without status migrainosus, not intractable, unspecified migraine type G43.909 Migraine type: unspecified Status migrainosus presence: without status migrainosus Intractability: not intractable Vitamin D deficiency E55.9 Memory impairment R41.3 Primary insomnia F51.01 Insomnia type: primary Anxiety F41.9 Episode of recurrent major depressive disorder, unspecified depression episode severity F33.9 Active/Remission status: currently active Major depression episode severity: unspecified Overweight (BMI 25.0-29.9) E66.3
== END 2023-02-21 16:46 | disposition home or self-care (01) ==
PROVIDERS: PCP Internal Medicine; Visit Provider Internal Medicine
DX: E78.00 Pure hypercholesterolemia, unspecified (principal); R74.01 Elevation of levels of liver transaminase levels; G47.33 Obstructive sleep apnea (adult) (pediatric); K59.09 Other constipation; K21.9 Gastro-esophageal reflux disease without esophagitis; M51.36 Other intervertebral disc degeneration, lumbar region; M25.59 Pain in other specified joint; I95.1 Orthostatic hypotension; G43.909 Migraine, unspecified, not intractable, without status migrainosus; E55.9 Vitamin D deficiency, unspecified; F33.9 Major depressive disorder, recurrent, unspecified; R41.3 Other amnesia
CPT/HCPCS: 99214

== ENCOUNTER 2023-02-22 13:06 | Outpatient (AMB) | payer OTHER, SELFPAY ==
--- NOTE | 2023-02-22 13:31 | MHC.OFFVIS ---
Intake Vital Signs 02/22/23 13:32 Height 5 ft 2 in Weight 156 lb BMI 28.5 BP 98/68 Intake Visit Reasons: 6m follow up/KUB Educational Sign Language Interpreter Required: Yes Educational Sign Language Interpreter Name: Deb Allergies acetaminophen Adverse Reaction (Unknown, Verified 02/22/23 21:44) Unknown Medication List - Last Reconciled 02/22/23 by ANNA Hughes albuterol sulfate 90 mcg/actuation (ProAir HFA) 2 puffs inhalation Q6H PRN 30 days atorvastatin 10 mg PO BEDTIME benztropine 1 mg PO BID cholecalciferol (vitamin D3) (Vitamin D3) 25 mcg PO DAILY 90 days clotrimazole 1% 1 appl topical BID [CPAP device and all related supplies As directed] cyanocobalamin (vitamin B-12) 500 mcg PO DAILY diphenhydramine HCl (Banophen) 25 mg PO TID PRN docusate sodium 100 mg PO BID estradiol (Yuvafem) 10 mcg vaginal 2XW 28 days ferrous sulfate 325 mg PO DAILY furosemide 40 mg PO QAM gabapentin 800 mg (2 x 400 mg) PO TID 30 days haloperidol 10 mg PO BEDTIME lactulose 10 grams PO .prn lamotrigine 100 mg PO DAILY lorazepam 1 mg PO BID PRN meclizine 25 mg PO TID PRN 30 days midodrine 10 mg PO TID naproxen 500 mg PO BID nitrofurantoin monohyd/m-cryst 100 mg (Macrobid) 100 mg PO BID 5 days omeprazole 20 mg PO DAILY oxybutynin chloride ER 5 mg PO DAILY 90 days polyethylene glycol 3350 (Miralax) 17 grams PO DAILY potassium citrate ER 0 mEq PO prazosin 1 mg PO BEDTIME rosuvastatin 5 mg PO DAILY sennosides (Senna Lax) 17.2 mg (2 x 8.6 mg) PO BEDTIME sumatriptan succinate take 1 tab at onset of headache; if no relief may repeat 1 tab after at least 2 hrs; max = 4 tabs/24 hr PO tramadol 100 mg (2 x 50 mg) PO Q8H PRN 30 days trazodone 50 mg PO BEDTIME PRN zinc gluconate 10 mg PO DAILY HPI HPI Comments History of Present Illness Details Xenia is a very pleasant Amharic-speaking female patient of Dr. Montelongo. She has a past medical history of obesity, renal cysts, diverticulosis, asthma, spondylosis of lumbar spine, dizziness of unknown etiology, chronic constipation, schizophrenia, panic attacks, PTSD, obstructive sleep apnea, major depression, anxiety, insomnia, tremors, vitamin-D deficiency, GERD, migraines, and hyperlipidemia. She presents to the office today for follow-up of her nephrolithiasis and recurrent urinary tract infections. Patient reports feeling dizzy. She reports following up with her PCP yesterday as this has been an ongoing issue for her. BP taken in office 98/. Patient discusses following up with portable router operator recently amd although she did not have any UTI like symptoms at the time she states her in office urinalysis at portable router operator office noted to have an infection. She reports being prescribed antibiotic therapy and is due to complete therapy today. In review of patient's chart it appears urine culture grew out E coli and patient was prescribed Macrobid b.i.d. x5 days which per culture is sensitive. In office urinalysis results reviewed with the patient today. She currently denies any bothersome urinary issues or concerns. She reports to be compliant with Vagifem 2 times per week typically on Sundays and Wednesdays. It appears patient was to have KUB prior to appointment today however this was not completed. Most recent abdominal ultrasound from September noting right kidney with multiple renal cyst seen with largest measuring up to 4.9 cm in size in the upper pole. No further evaluation of the cyst would be needed per radiology report. No hydronephrosis or calculi noted. Patient with left kidney surgically absent. Patient discusses having had surgical menopause in 2018 with a hysterectomy with oophorectomy. When asked she denies urinary urgency, urinary frequency, incontinence, nocturia, hematuria, dysuria, foul smelling urine, changes to urinary stream, flank pain, fever, and or chills. She is happy with her current voiding parameters on 5mg of oxybutynin daily. She otherwise offers no other issues or concerns at this time. COUNT INCLUDES [facility] Medical History Obesity (BMI 30-39.9) Renal cyst Diverticulosis Tubular adenoma Asthma Spondylosis of lumbar spine Sacroiliitis Dizziness of unknown etiology Chronic constipation Hx of schizophrenia Panic attacks PTSD (post-traumatic stress disorder) MIGUEL (obstructive sleep apnea) Dyspareunia Pyelonephritis Ingrown toenail Iron deficiency anemia Major depression, recurrent Anxiety Insomnia Tremor Orthostatic hypotension Incisional hernia without obstruction or gangrene Avascular necrosis of femoral head Bilateral carpal tunnel syndrome Peroneal neuropathy Lumbar degenerative disc disease Vitamin D deficiency GERD (gastroesophageal reflux disease) Migraine Hyperlipidemia Surgical History History of colonoscopy History of surgery Hx of cystoscopy History of bilateral breast reduction surgery History of hysterectomy History of cholecystectomy History of endoscopy (~06/2016) History of bladder repair surgery (~03/2015) S/P cystoscopy (~07/30/12) S/P panniculectomy History of hernia repair (~03/29/10) History of bladder surgery (~10/2009) History of gastric bypass (~2008) History of incisional hernia repair (~1999) Hx of umbilical hernia repair (~1999) H/O left nephrectomy S/P laparoscopic sleeve gastrectomy Family History Father Liver cancer Mother Breast cancer Sister Lung cancer Other Mental health problem Social History Household Members: Spouse and Family Housing: House Do you presently have visiting nurse or other home services: Yes Alcohol intake: never Patient Tobacco Use Status: Never used Tobacco e-Cigarette/Vaping Use: Never Used Second Hand Smoke Exposure: No Advance Directives Date on File: 07/12/21 service: No Current occupational status: disabled Sexual orientation: Straight/Heterosexual Cognitive needs: No Hearing needs: No Vision needs: Yes Female Reproductive History Menstrual Age of Menarche: 13 Review of Systems Const Reports no additional complaints Eyes Reports no additional complaints ENT Reports no additional complaints Card Reports as per HPI Resp Reports as per HPI GI Reports as per HPI Reports as per HPI Musc Reports as per HPI Neuro Reports as per HPI Psych Reports as per HPI Physical Exam Vital Signs: Last Vital Signs BP 98/68 02/22/23 13:32 BMI result Body Mass Index 28.5 Const General: cooperative, comfortable, no acute distress, well developed, alert and awake Orientation/consciousness: patient oriented x3 HEENT Head: Yes normal to inspection, Yes normocephalic and Yes atraumatic Ears: hearing grossly normal bilaterally Eyes General: appearance normal, both eyes and all related structures Neck Neck: Yes normal visual inspection and Yes trachea midline Chest Chest palpation & inspection: normal inspection of the chest Resp Effort & Inspection: normal respiratory effort and able to speak in complete sentences Cardio Rate: regular rate GI Inspection: Yes normal to inspection General: Yes no CVA tenderness Back/Spine/Pelvis Back: no CVA tenderness Skin General skin exam: no rashes or lesions noted Neuro General: patient oriented x3 Extrem General: Yes normal to inspection Psych Appearance: grossly normal and well kempt Mental Status: mental status grossly normal Speech and movement: Normal speech and movement present and Clear speech present Affect: normal affect Attitude: cooperative Thought process: Normal thought process present Thought content: Normal thought content present Insight: Fair insight present (Psych) Judgement: Fair judgement present (Psych) Results AMB Urinalysis, Automated UA Leukoctes 0 Asad/uL Last Edit by Jordan Miner on 02/22/23 13:38 UA Nitrite Negative Last Edit by Jordan Miner on 02/22/23 13:38 UA Urobilinogen 0.2 mg/dL Last Edit by Jordan Miner on 02/22/23 13:38 UA Protein 15 mg/dL Last Edit by Jordan Miner on 02/22/23 13:38 UA pH 7.0 Last Edit by Jordan Miner on 02/22/23 13:38 UA Blood 0 Montrell/uL Last Edit by Jordan Miner on 02/22/23 13:38 UA Specific [place] 1.010 Last Edit by Jordan Miner on 02/22/23 13:38 UA Ketone Positive Last Edit by Jordan Miner on 02/22/23 13:38 UA Bilirubin 0 mg/dL Last Edit by Jordan Miner on 02/22/23 13:38 UA Glucose 0 mg/dL Last Edit by Jordan Miner on 02/22/23 13:38 Results Reviewed Results Reviewed: Laboratory Last Values Urine pH (Auto) 7.0 02/22/23 13:34 Specific [place] (Auto) 1.010 02/22/23 13:34 Urine Protein (Auto) 15 mg/dL 02/22/23 13:34 Glucose (UA)(Auto) 0 mg/dL 02/22/23 13:34 Urine Ketones (Auto) Positive 02/22/23 13:34 Urine Blood (Auto) 0 [place]/uL 02/22/23 13:34 Urine Nitrite (Auto) Negative 02/22/23 13:34 Urine Bilirubin (Auto) 0 mg/dL 02/22/23 13:34 Urine Urobilinogen (Auto) 0.2 mg/dL 02/22/23 13:34 Leukocyte Esterase (Auto) 0 Asad/uL 02/22/23 13:34 Assessment & Plan Assessment & Plan (1) Nephrolithiasis: Code(s): N20.0 - Calculus of kidney (2) Solitary kidney, acquired: Code(s): Z90.5 - Acquired absence of kidney (3) Renal cyst: Code(s): N28.1 - Cyst of kidney, acquired (4) Recurrent urinary tract infection: Code(s): N39.0 - Urinary tract infection, site not specified Plan In office urinalysis results reviewed with the patient today; as noted above. PVR 2 mL. Continue Vagifem as discussed and prescribed. Discussed UTI prevention with D mannose supplement, vitamin-C, increasing fluid intake, behavioral therapy with timed voiding, perineal hygiene and postcoital voiding, and management of constipation with stool softeners and increased fiber intake. Previous imaging reviewed with the patient today; as noted above. Patient denies any bothersome urinary issues or concerns at this time. KUB in 6 months Follow-up in 6 months with PVR and imaging to be completed prior; or sooner with any issues, concerns, and or questions. Orders: Orders AMB Post Void Residual by ultrasound 02/22/23 R32 - Unspecified urinary incontinence AMB Urinalysis Automated 02/22/23 Z13.9 - Encounter for screening, unspecified XR KUB 6 Months N20.0 - Calculus of kidney Medications: Discontinued nitrofurantoin monohyd/m-cryst 100 mg (Macrobid) must administer with a meal/food Discontinued Reason: Doctor's Order 100 mg PO BID 5 days 10 caps 0RF UTI Patient Instructions: The patient had an opportunity to ask questions regarding the treatment plan. All questions were answered. Physical exam, labs, and imaging were discussed and reviewed in detail. As well as risks, benefits, and discussion of treatment choices. No major barriers to understanding were identified. The patient expressed understanding and agreement with the above treatment plan. The patient was made aware they should contact our office by phone for worsening of their current condition, the appearance of new symptoms, or with any questions or concerns. Compliance is encouraged with any medications and follow up testing that is ordered. It is a privilege to be allowed the opportunity to participate in? your urological care.? Again, if you have any questions or concerns If you have any questions or concerns please do not hesitate to contact me. The office is [phone]. This note is constructed using voice recognition software. While every effort has been made to ensure accuracy rubber and pounder errors may have been included. Yours sincerely, GOOD Hughes-NAZIA Coding Level of Care Code Est Pt Level 3 (93919) Diagnoses Nephrolithiasis N20.0 Solitary kidney, acquired Z90.5 Renal cyst N28.1 Recurrent urinary tract infection N39.0
[2023-02-22 13:32] VITALS: BP 98/68; BMI 28.5
== END 2023-02-22 14:02 | disposition home or self-care (01) ==
PROVIDERS: Visit Provider Nurse Practitioner Family
DX: N20.0 Calculus of kidney (principal); Z90.5 Acquired absence of kidney; N28.1 Cyst of kidney, acquired; N39.0 Urinary tract infection, site not specified
CPT/HCPCS: 99213

== ENCOUNTER → 2023-02-22 13:06 | Outpatient (BNVA) | payer OTHER, SELFPAY | PROVIDERS: Visit Provider Nurse Practitioner Family | DX: N20.0 Calculus of kidney (principal); N28.1 Cyst of kidney, acquired; N39.0 Urinary tract infection, site not specified; Z90.5 Acquired absence of kidney | CPT/HCPCS: 81003; 99212 ==

== ENCOUNTER 2023-03-02 07:38 | Outpatient (REF) | payer OTHER, SELFPAY ==
[2023-03-02 08:25] LABS: Alanine Aminotransferase 18 U/L (0-31); Albumin Level 3.6 g/dL (3.5-5.0); Alkaline Phosphatase 137 U/L (39-117); Anion Gap 11 (12-20); Aspartate Amino Transferase 17 U/L (5-31); Bilirubin Total 0.6 mg/dL (0.0-1.0); Blood Urea Nitrogen 11 mg/dL (9-16); Carbon Dioxide 25 mmol/L (22-29); Chloride 110 mmol/L (96-108); Cholesterol 254 mg/dL (<200); Estimated Glomerular Filt Rate 56; Glucose Fasting 105 mg/dL (60-99); HDL Cholesterol 48 mg/dL (>40); LDL Cholesterol Calculated 181 mg/dL (<100); Potassium 3.9 mmol/L (3.3-5.1); Sodium 142 mmol/L (135-145); Total Protein 6.5 g/dL (6.5-8.0); Triglycerides 125 mg/dL (<150)
[2023-03-02 08:59] LABS: Appearance Urine Clear; Color Urine Yellow; Glucose Urine UA Negative (Negative); Leukocyte Esterase Urine Negative (Negative); Nitrite Urine Negative (Negative); PH 5.5 (5.0-9.0); Urine Blood Negative (Negative); Urine Ketones Negative (Negative); Urine Protein Negative (Neg-Trace)
== END 2023-03-02 07:39 | disposition home or self-care (01) ==
LOC: HO.LAB 07:38
PROVIDERS: PCP Internal Medicine; Visit Provider Internal Medicine
DX: R30.0 Dysuria (principal); E78.00 Pure hypercholesterolemia, unspecified
CPT/HCPCS: 36415; 80053; 80061; 81003

== ENCOUNTER 2023-03-22 11:47 | Outpatient (AMB) | payer OTHER, SELFPAY ==
--- NOTE | 2023-03-22 11:48 | A.OFFVIS_ITS ---
Intake Vital Signs 03/22/23 11:55 Height 5 ft 2 in Weight 152 lb 1.903 oz BMI 27.8 BP 111/73 Blood Pressure Location Lt brachial Position Sitting Pulse 80 Intake Visit Reasons: 6 mnth follow up Intake Note: Xenia presents in the office as a 6 month follow up. CC: Her BP is going down a lot she states. She was confused of the medication that she takes. Dump Truck Driver Required: Yes Dump Truck Driver Name: [id number] Chilel Allergies acetaminophen Adverse Reaction (Unknown, Verified 04/11/23 16:50) Unknown Medication List - Last Reconciled 03/22/23 by JOLIE RoyalP- albuterol sulfate 90 mcg/actuation (ProAir HFA) 2 puffs inhalation Q6H PRN 30 days benztropine 1 mg PO BID benztropine 1 mg PO BID cholecalciferol (vitamin D3) (Vitamin D3) 25 mcg PO DAILY 90 days clotrimazole 1% 1 appl topical BID [CPAP device and all related supplies As directed] cyanocobalamin (vitamin B-12) 500 mcg PO DAILY diphenhydramine HCl (Banophen) 25 mg PO TID PRN docusate sodium 100 mg PO BID estradiol (Yuvafem) 10 mcg vaginal 2XW 28 days ferrous sulfate 325 mg PO DAILY furosemide 40 mg PO QAM gabapentin 800 mg (2 x 400 mg) PO TID 30 days lorazepam 1 mg PO BID PRN meclizine 25 mg PO TID PRN 30 days melatonin 3 mg PO BEDTIME midodrine 10 mg PO TID polyethylene glycol 3350 (Miralax) 17 grams PO DAILY potassium citrate ER 0 mEq PO prazosin 1 mg PO BEDTIME sertraline 25 mg PO DAILY sumatriptan succinate take 1 tab at onset of headache; if no relief may repeat 1 tab after at least 2 hrs; max = 4 tabs/24 hr PO tramadol 100 mg (2 x 50 mg) PO Q8H PRN 30 days trazodone 50 mg PO BEDTIME PRN zinc gluconate 10 mg PO DAILY HPI 6 mnth follow up HPI Details LAST VISIT: Constipation Continue Colace and senna. Discussed with patient the importance of drinking plenty fluids. Patient currently is doing well and moving her bowels daily. Elevated LFTs Patient's LFTs continue to go up and down. Most likely related to her medications. Discussed with patient the importance of bringing her medications to her next appointment so we can go over that. Patient has appointment with her psychiatrist next Monday and she will discuss the medications with him GERD (gastroesophageal reflux disease) Continue omeprazole daily. Discussed with patient avoiding dietary triggers like the snacking. Staying upright for minimal 3 hours after meals discussed with patient. Tardive dyskinesia Patient has developed tardive dyskinesia after being placed on antipsychotic medication. Patient stopped the medications few days ago. She continues to have symptoms. Patient reports that this bothers her a lot as she is developing pain in her jaw. She will discuss and will go over her medication with her psychiatrist. I will see patient in 6 months, sooner on as needed basis he is agreeable to this plan and verbalizes understanding of instructions. She was given the opportunity to ask questions and all questions answered. ? TODAY'S VISIT: Patient is here today for follow-up. Patient reports that she has been doing better. Continues to have orofacial dyskinesia. Patient continues to be off her antipsychotic medications. Currently was diagnosed with hypertension and started on midodrine. Patient reports that she has good appetite. Denies any abdominal pain or discomfort. She continues to take Colace and MiraLax to help her move her bowels. Patient denies any dyspepsia, dysphagia or odynophagia. Patient denies any melena, hematochezia, unintentional weight loss or ribbon like stools. Patient denies any GI concerning symptoms today. [facility] Medical History Obesity (BMI 30-39.9) Renal cyst Diverticulosis Tubular adenoma Asthma Spondylosis of lumbar spine Sacroiliitis Dizziness of unknown etiology Chronic constipation Hx of schizophrenia Panic attacks PTSD (post-traumatic stress disorder) MIGUEL (obstructive sleep apnea) Dyspareunia Pyelonephritis Ingrown toenail Iron deficiency anemia Major depression, recurrent Anxiety Insomnia Tremor Orthostatic hypotension Incisional hernia without obstruction or gangrene Avascular necrosis of femoral head Bilateral carpal tunnel syndrome Peroneal neuropathy Lumbar degenerative disc disease Vitamin D deficiency GERD (gastroesophageal reflux disease) Migraine Hyperlipidemia Surgical History History of colonoscopy History of surgery Hx of cystoscopy History of bilateral breast reduction surgery History of hysterectomy History of cholecystectomy History of endoscopy (~06/2016) History of bladder repair surgery (~03/2015) S/P cystoscopy (~07/30/12) S/P panniculectomy History of hernia repair (~03/29/10) History of bladder surgery (~10/2009) History of gastric bypass (~2008) History of incisional hernia repair (~1999) Hx of umbilical hernia repair (~1999) H/O left nephrectomy S/P laparoscopic sleeve gastrectomy Family History Father Liver cancer Mother Breast cancer Sister Lung cancer Other Mental health problem Social History Household Members: Spouse and Family Housing: House Do you presently have visiting nurse or other home services: Yes Alcohol intake: never Patient Tobacco Use Status: Never used Tobacco e-Cigarette/Vaping Use: Never Used Second Hand Smoke Exposure: No Advance Directives Date on File: 07/12/21 service: No Current occupational status: disabled Sexual orientation: Straight/Heterosexual Cognitive needs: No Hearing needs: No Vision needs: Yes Female Reproductive History Menstrual Age of Menarche: 13 Review of Systems Const Denies weight gain and Denies weight loss ENT Reports no additional complaints, Denies dysphagia and Denies odynophagia Card Reports no additional complaints Resp Reports no additional complaints GI Denies abdominal pain, Denies belching, Denies melena, Denies bloating, Denies change in bowel habits, Denies dysphagia, Denies excessive flatus, Denies dyspepsia, Denies heartburn, Denies diarrhea, Denies loose stools, Denies nausea, Denies odynophagia and Denies vomiting Musc Reports no additional complaints Neuro Reports no additional complaints Psych Reports no additional complaints Endo Reports no additional complaints Physical Exam Vital Signs: Last Vital Signs Pulse 80 03/22/23 11:55 BP 111/73 03/22/23 11:55 BMI result Body Mass Index 27.8 Const General: healthy appearing, no acute distress and well developed Nutritional Appearance: well nourished Orientation/consciousness: patient oriented x3 HEENT Head: Yes normal to inspection, Yes normocephalic and Yes atraumatic Face and sinus: Yes normal facial exam Mouth: Normal oral and palatal mucosa present Throat: Yes posterior oropharynx normal, Yes tonsils normal and Yes uvula midline Eyes General: appearance normal, both eyes and all related structures Neck Neck: Yes normal visual inspection, Yes full ROM and Yes trachea midline Thyroid: Thyroid normal Resp Effort & Inspection: normal respiratory effort, able to speak in complete sentences, no tracheal deviation and symmetric chest movement Auscultation: clear to auscultation bilaterally Cardio Rate: regular rate GI Inspection: Yes normal to inspection and No distended Palpation (GI): Soft to palpation, not firm, nontender and No hepatosplenomegaly present Auscultation: normal bowel sounds General: Yes no CVA tenderness Back/Spine/Pelvis Back: no CVA tenderness Skin General skin exam: elasticity normal, turgor normal and dry skin Neuro General: patient oriented x3 Psych Other: Tremors Appearance: grossly normal Mental Status: mental status grossly normal Assessment & Plan Assessment & Plan (1) Constipation: Code(s): K59.00 - Constipation, unspecified Qualifiers: Constipation type: drug induced constipation Qualified Code(s): K59.03 - Drug induced constipation (2) Diverticulosis: Code(s): K57.90 - Diverticulosis of intestine, part unspecified, without perforation or abscess without bleeding (3) GERD (gastroesophageal reflux disease): Code(s): K21.9 - Gastro-esophageal reflux disease without esophagitis Qualifiers: Esophagitis presence: without esophagitis Qualified Code(s): K21.9 - Gastro-esophageal reflux disease without esophagitis Plan Patient will continue avoiding dietary triggers. Continue Colace and MiraLax. Patient was encouraged to increase activity to promote better bowel motility. I will see her in 6 months, sooner on as needed basis. Patient is agreeable to this plan and verbalizes understanding of instructions. She was given the opportunity to ask questions and all questions answered. Thank you for allowing me to participate in her care Medications: New benztropine 1 mg PO BID Coding Level of Care Code Est Pt Level 3 (80776) Diagnoses Drug-induced constipation K59.03 Constipation type: drug induced constipation Diverticulosis K57.90 Gastroesophageal reflux disease without esophagitis K21.9 Esophagitis presence: without esophagitis Time Spent (min) 25 Comment 15 minutes spent with patient and additional 10 minutes spent reviewing her records
[2023-03-22 11:55] VITALS: BP 111/73; PULSE 80; BMI 27.8
== END 2023-03-22 14:29 | disposition home or self-care (01) ==
PROVIDERS: PCP Internal Medicine; Visit Provider Nurse Practitioner Family
DX: K59.03 Drug induced constipation (principal); K57.90 Diverticulosis of intestine, part unspecified, without perforation or abscess without bleeding; K21.9 Gastro-esophageal reflux disease without esophagitis
CPT/HCPCS: 99213

== ENCOUNTER → 2023-03-22 11:47 | Outpatient (BNVA) | payer OTHER, SELFPAY | PROVIDERS: PCP Internal Medicine; Visit Provider Nurse Practitioner Family | DX: K59.03 Drug induced constipation (principal); K21.9 Gastro-esophageal reflux disease without esophagitis; K57.90 Diverticulosis of intestine, part unspecified, without perforation or abscess without bleeding | CPT/HCPCS: 99212 ==

== ENCOUNTER 2023-04-10 12:09 | Outpatient (AMB) | payer OTHER, SELFPAY ==
--- NOTE | 2023-04-10 12:15 | A.OFFVIS_ITS ---
Intake VS Expanded 04/10/23 12:35 BP 95/55 L Blood Pressure Location Rt brachial Blood Pressure Position Sitting Pulse 71 Pulse Source Pulse Oximeter Temp 96.9 F Temperature Source Tympanic Pulse Oximetry 93 Oxygen Delivery Method Room Air Height 5 ft 2.5 in Weight 152 lb 12.8 oz BMI 27.5 Body Fat % 37.2 Body Fat Mass 56.8 Fat Free Mass 96.0 Visceral Fat Rating 8.0 Body Water % 37.2 Body Water Mass 68.2 Muscle Mass/Score 91.0 Basal Metabolic Rate/Score 1,319 Intake Visit Reasons: (OV) PO LRYGB 06/16/16 Sexual Abuse Counsellor Required: Yes Sexual Abuse Counsellor Language: Avionics Shop Supervisor Name: [id number] Allergies acetaminophen Adverse Reaction (Unknown, Verified 03/22/23 11:55) Unknown Medication List - Last Reviewed 04/10/23 by Sandy Philip CMA albuterol sulfate 90 mcg/actuation (ProAir HFA) 2 puffs inhalation Q6H PRN 30 days benztropine 1 mg PO BID cholecalciferol (vitamin D3) (Vitamin D3) 25 mcg PO DAILY 90 days clotrimazole 1% 1 appl topical BID [CPAP device and all related supplies As directed] cyanocobalamin (vitamin B-12) 500 mcg PO DAILY diphenhydramine HCl (Banophen) 25 mg PO TID PRN docusate sodium 100 mg PO BID estradiol (Yuvafem) 10 mcg vaginal 2XW 28 days ferrous sulfate 325 mg PO DAILY furosemide 40 mg PO QAM gabapentin 800 mg (2 x 400 mg) PO TID 30 days lorazepam 1 mg PO BID PRN meclizine 25 mg PO TID PRN 30 days melatonin 3 mg PO BEDTIME midodrine 10 mg PO TID polyethylene glycol 3350 (Miralax) 17 grams PO DAILY potassium citrate ER 0 mEq PO prazosin 1 mg PO BEDTIME sertraline 25 mg PO DAILY sumatriptan succinate take 1 tab at onset of headache; if no relief may repeat 1 tab after at least 2 hrs; max = 4 tabs/24 hr PO tramadol 100 mg (2 x 50 mg) PO Q8H PRN 30 days trazodone 50 mg PO BEDTIME PRN zinc gluconate 10 mg PO DAILY HPI HPI Comments History of Present Illness Details This?is a?52?yo female who is s/p RYGB 06/16/2016. Presents for 6 year 9 month post op visit. Weight at last visit on 11/08/2022 was 162.6 pounds with a BMI of 29.3, weight today is 152.8 pounds, representing a 9.8 pound weight loss with a BMI today of 28.? No complaints of nausea, emesis, abdominal pain or reflux, or constipation. Her low BP is noted. She reports that her PCP is aware and is managing her prescriptions. Pt was unaware that I had discussed her case with Dr. Moody and he had not felt that any additional operation would be indicated for her. Present meal plan includes: 1 scoop Pure Protein in 8oz 1% milk- 33g Pure Protein bar- 20g- OR has been having fish for lunch, perhaps 3oz, with salad Dinner of 3oz protein (21g)- has been having salad and salmon or chicken or beef will drink water and zero calorie flavor enhancer Goal of 70g/day. Exercise routine includes: recommended Sit and Be Fit or MM videos, trying to do 3x/week has been doing some Kushal classes leg weakness has improved, has been walking on treadmill REPLACED BY [facility] Medical History Obesity (BMI 30-39.9) Renal cyst Diverticulosis Tubular adenoma Asthma Spondylosis of lumbar spine Sacroiliitis Dizziness of unknown etiology Chronic constipation Hx of schizophrenia Panic attacks PTSD (post-traumatic stress disorder) MIGUEL (obstructive sleep apnea) Dyspareunia Pyelonephritis Ingrown toenail Iron deficiency anemia Major depression, recurrent Anxiety Insomnia Tremor Orthostatic hypotension Incisional hernia without obstruction or gangrene Avascular necrosis of femoral head Bilateral carpal tunnel syndrome Peroneal neuropathy Lumbar degenerative disc disease Vitamin D deficiency GERD (gastroesophageal reflux disease) Migraine Hyperlipidemia Surgical History History of colonoscopy History of surgery Hx of cystoscopy History of bilateral breast reduction surgery History of hysterectomy History of cholecystectomy History of endoscopy (~06/2016) History of bladder repair surgery (~03/2015) S/P cystoscopy (~07/30/12) S/P panniculectomy History of hernia repair (~03/29/10) History of bladder surgery (~10/2009) History of gastric bypass (~2008) History of incisional hernia repair (~1999) Hx of umbilical hernia repair (~1999) H/O left nephrectomy S/P laparoscopic sleeve gastrectomy Family History Father Liver cancer Mother Breast cancer Sister Lung cancer Other Mental health problem Social History Household Members: Spouse and Family Housing: House Do you presently have visiting nurse or other home services: Yes Alcohol intake: never Patient Tobacco Use Status: Never used Tobacco e-Cigarette/Vaping Use: Never Used Second Hand Smoke Exposure: No Advance Directives Date on File: 07/12/21 service: No Current occupational status: disabled Sexual orientation: Straight/Heterosexual Cognitive needs: No Hearing needs: No Vision needs: Yes Female Reproductive History Menstrual Age of Menarche: 13 Assessment & Plan Assessment & Plan (1) Overweight (BMI 25.0-29.9): Code(s): E66.3 - Overweight (2) History of gastric bypass: Onset Date: ~2008 Comment: revision of GBP Jun 2016 Code(s): Z98.84 - Bariatric surgery status Plan Via twister hand, explained that Dr. Moody did not feel that any additional operation was indicated by our practice for her abdominal skin. I suggested contacting other plastic surgery groups to discuss the revision that she desires but cautioned that it may be considered cosmetic and not covered by insurance. Provided the phone number of [facility] as that is where pt had her previous panniculectomy by Dr. Barraza. Otherwise she will continue same meal plan and exercise regimen. Will be due for labs in June, RTC at that time. Patient is overweight and is not considered stable at this time. I spent a total of 30 minutes reviewing/updating records, examining the patient and counseling the patient on weight management as detailed above. Coding Level of Care Code Est Pt Level 4 (58884) Diagnoses Overweight (BMI 25.0-29.9) E66.3 History of gastric bypass Z98.84
[2023-04-10 12:35] VITALS: BP 95/55; PULSE 71; TEMP 36.1; O2SAT 93; BMI 27.5
== END 2023-04-10 12:57 | disposition home or self-care (01) ==
PROVIDERS: PCP Internal Medicine; Visit Provider Physician Assistant Surgical
DX: E66.3 Overweight (principal); Z68.27 Body mass index [BMI] 27.0-27.9, adult; Z98.84 Bariatric surgery status
CPT/HCPCS: 99214

== ENCOUNTER → 2023-04-10 12:09 | Outpatient (BNVA) | payer OTHER, SELFPAY | PROVIDERS: PCP Internal Medicine; Visit Provider Physician Assistant Surgical | DX: E66.3 Overweight (principal); Z98.84 Bariatric surgery status; Z68.27 Body mass index [BMI] 27.0-27.9, adult | CPT/HCPCS: 99212 ==

== ENCOUNTER 2023-04-11 16:33 | Outpatient (AMB) | payer OTHER, SELFPAY ==
--- NOTE | 2023-04-11 16:34 | MHC.PC.OV ---
Vital Signs 04/11/23 16:35 Height 5 ft 2.5 in Weight 152 lb BMI 27.4 BP 104/70 Blood Pressure Location Lt brachial Position Sitting Pulse 97 Pulse Source Pulse Oximeter Pulse Oximetry (%) 67 L Oxygen Delivery Method Room Air Intake Visit Reasons: depression Chainman Required: No Accompanied by: Self / Same As Patient Allergies acetaminophen Adverse Reaction (Unknown, Verified 04/11/23 16:50) Unknown Medication List - Last Reconciled 04/11/23 by Hung Montelongo MD albuterol sulfate 90 mcg/actuation (ProAir HFA) 2 puffs inhalation Q6H PRN 30 days benztropine 1 mg PO BID cholecalciferol (vitamin D3) (Vitamin D3) 25 mcg PO DAILY 90 days clotrimazole 1% 1 appl topical BID [CPAP device and all related supplies As directed] cyanocobalamin (vitamin B-12) 500 mcg PO DAILY diphenhydramine HCl (Banophen) 25 mg PO TID PRN docusate sodium 100 mg PO BID estradiol (Yuvafem) 10 mcg vaginal 2XW 28 days ferrous sulfate 325 mg PO DAILY furosemide 40 mg PO QAM gabapentin 800 mg (2 x 400 mg) PO TID 30 days lorazepam 1 mg PO BID PRN meclizine 25 mg PO TID PRN 30 days melatonin 3 mg PO BEDTIME midodrine 10 mg PO TID polyethylene glycol 3350 (Miralax) 17 grams PO DAILY potassium citrate ER 0 mEq PO prazosin 1 mg PO BEDTIME sertraline 25 mg PO DAILY sumatriptan succinate take 1 tab at onset of headache; if no relief may repeat 1 tab after at least 2 hrs; max = 4 tabs/24 hr PO tramadol 100 mg (2 x 50 mg) PO Q8H PRN 30 days trazodone 50 mg PO BEDTIME PRN zinc gluconate 10 mg PO DAILY Tobacco use date assessed: 04/11/23 Dental Screening Dental Screen Date: 04/11/23 Did you have a dental visit in the last 12 months?: Yes Did you have a dental problem in the last 6 months where you did not have access to dental care?: No Was dental information given to patient?: Patient has dentist HPI depression HPI Details Patient comes in today mainly to request for a medical letter to help in her request for accommodation for a 2 bedroom apartment unit States that she was advised that she needs to get letter from both PCP and her psychiatrist to help state her case as to why she needs a 2 bedroom apartment unit Patient relates that she has sleep apnea and uses a CPAP device when she sleeps at night and her has to sleep in another room has he cannot sleep with to ongoing noise from her device Adds that she was diagnosed with frontotemporal lobar degeneration by neurology and she has been experiencing some memory issues lately She also has a diagnosis of severe depression, with several suicide attempts in the past, and has been advised that she should not be left alone on her own and needs to have someone with her at all times - states that she has already requested a letter from her psychiatrist regarding this and was advised that they will provide her with one at her appointment with them tomorrow Patient states that she currently feels okay She denies any headaches or dizziness Denies any chest pains, no shortness of breath No nausea/vomiting, no abdominal pain No change in bowel habits noted Would also like to get her flu shot today [facility] Medical History Obesity (BMI 30-39.9) Renal cyst Diverticulosis Tubular adenoma Asthma Spondylosis of lumbar spine Sacroiliitis Dizziness of unknown etiology Chronic constipation Hx of schizophrenia Panic attacks PTSD (post-traumatic stress disorder) MIGUEL (obstructive sleep apnea) Dyspareunia Pyelonephritis Ingrown toenail Iron deficiency anemia Major depression, recurrent Anxiety Insomnia Tremor Orthostatic hypotension Incisional hernia without obstruction or gangrene Avascular necrosis of femoral head Bilateral carpal tunnel syndrome Peroneal neuropathy Lumbar degenerative disc disease Vitamin D deficiency GERD (gastroesophageal reflux disease) Migraine Hyperlipidemia Surgical History History of colonoscopy History of surgery Hx of cystoscopy History of bilateral breast reduction surgery History of hysterectomy History of cholecystectomy History of endoscopy (~06/2016) History of bladder repair surgery (~03/2015) S/P cystoscopy (~07/30/12) S/P panniculectomy History of hernia repair (~03/29/10) History of bladder surgery (~10/2009) History of gastric bypass (~2008) History of incisional hernia repair (~1999) Hx of umbilical hernia repair (~1999) H/O left nephrectomy S/P laparoscopic sleeve gastrectomy Family History Father Liver cancer Mother Breast cancer Sister Lung cancer Other Mental health problem Social History Household Members: Spouse and Family Housing: House Do you presently have visiting nurse or other home services: Yes Alcohol intake: never Patient Tobacco Use Status: Never used Tobacco e-Cigarette/Vaping Use: Never Used Second Hand Smoke Exposure: No Advance Directives Date on File: 07/12/21 service: No Current occupational status: disabled Sexual orientation: Straight/Heterosexual Cognitive needs: No Hearing needs: No Vision needs: Yes Female Reproductive History Menstrual Age of Menarche: 13 Questionnaire PHQ-9 Over the last 2 weeks, how often have you been bothered by any of the following problems? 1. Little interest or pleasure in doing things: several days 2. Feeling down, depressed, or hopeless: several days 3. Trouble falling or staying asleep, or sleeping too much: several days 4. Feeling tired or having little energy: several days 5. Poor appetite or overeating: several days 6. Feeling bad about yourself - or that you are a failure or have let yourself or your family down: not at all 7. Trouble concentrating on things, such as reading the newspaper or watching television: not at all 8. Moving or speaking so slowly that other people could have noticed. Or the opposite - being so fidgety or restless that you have been moving around a lot more than usual: not at all 9. Thoughts that you would be better off or of hurting yourself in some way: not at all Total score: 5 Depression Screening Interpretation: Positive Depression Screening Follow-up: Existing condition and In treatment Depression Screening Done: Yes 77350 - PHQ-9 Billing: Yes Source: Developed by Drs. Vincenzo Mayo, Beverly Hernandez, Angel Vogel and colleagues, with an educational juan antonio from [employer]. Thrive Questionnaire Date Thrive assessed: 04/11/23 I am a: Patient What is your living situation today?: I have a steady place to live Within the past 12 months, did the food you bought not last and you didn't have the money to get more?: Never true Within the past 12 months, did you worry whether your food would run out before you got money to buy more?: Never true Do you have trouble paying for medicines?: No Do you have trouble getting transportation to medical appointments?: No Do you have trouble paying your heating and electricity bill?: No Do you have trouble taking care of your child, family member or friend?: No Do you have trouble with day-to-day activities such as bathing, preparing meals, shopping, managing finances, etc.?: No Are you currently unemployed and looking for a job?: No Are you interested in more education?: No Please select the resources that you would like help with: None Currently or been in a relationship where the following occur: no concerns reported AUDIT C Alcohol Use Questionnaire (AUDIT-C) 1. How often do you have a drink containing alcohol?: Never 3. How often do you have six or more drinks on one occasion?: Never Total Score: 0 Score Reviewed/Action Taken: Yes JAMIE-7 AMB Questionnaire JAMIE-7 Date JAMIE - 7 assessed: 04/11/23 Feeling nervous, anxious, or on edge: 0 = Not at all Not being able to stop or control worryin = Not at all Worrying too much about different things: 0 = Not at all Trouble relaxin = Not at all Being so restless that it is hard to sit still: 0 = Not at all Becoming easily annoyed or irritable: 0 = Not at all Feeling afraid as if something awful might happen: 0 = Not at all Total JAMIE-7 score (0-4 normal; 5-9 mild; 10-14 moderate; 15-21 severe): 0 Source: Developed by Drs. Vincenzo Mayo, Beverly Hernandez, Angel Vogel and colleagues, with an educational juan antonio from [employer]. Review of Systems Const Denies chills, Reports difficulty sleeping, Reports fatigue, Denies fever(s) and Denies headache(s) ENT Denies dysphagia, Denies dizziness, Denies otalgia, Denies headache(s), Denies neck pain, Denies odynophagia and Denies sore throat Card Denies chest pain, Denies palpitations and Denies dyspnea Resp Denies cough, Denies dyspnea and Denies wheezing GI Reports abdominal pain (on and off over the right upper quadrant and upper abdomen), Reports constipation (chronic - better controlled lately), Denies dysphagia, Denies heartburn, Denies diarrhea, Reports nausea (occasionally), Denies odynophagia and Denies vomiting Musc Reports back pain (over the lower back - chronic), Reports arthralgias (involving multiple joints) and Denies neck pain Neuro Denies dizziness, Denies headache(s) and Reports memory loss Psych Denies anxiety, Reports depression and Reports memory loss Endo Reports fatigue and Denies palpitations Aller/Immun Denies wheezing Physical exam (Primary Care) Vital Signs: Last Vital Signs Pulse 97 04/11/23 16:35 BP 104/70 04/11/23 16:35 Pulse Ox 67 L 04/11/23 16:35 Oxygen Delivery Method Room Air 04/11/23 16:35 BMI result Body Mass Index 27.4 Tobacco/Smoking Status: Tobacco use Status Tobacco use date assessed 04/11/23 04/11/23 16:40 Patient Tobacco Use Status Never used Tobacco 04/11/23 16:40 e-Cigarette/Vaping Use Never Used 04/11/23 16:40 PHQ-9: PHQ-9 Score PHQ-9: Total score 5 04/11/23 17:11 Depression Screening Interpretation: Positive Depression Screening Follow-up: Existing condition and In treatment Thrive Assessment: Date of Thrive Assessment Date Thrive assessed 04/11/23 04/11/23 16:40 Currently or been in a relationship where the following occur: no concerns reported Const General: no acute distress and alert Neck Neck: Yes no lymphadenopathy and Yes supple Resp Auscultation: clear to auscultation bilaterally, no rales and no wheezes Cardio Rate: regular rate Rhythm: regular rhythm Heart sounds: no murmurs GI Palpation (GI): Soft to palpation, Tenderness to palpation present (GI) (mild) in the epigastrum and in the RUQ, no guarding and No Rebound tenderness present Back/Spine/Pelvis Thoracic/Lumbar Spine: paraspinal muscle tenderness (over the lumbar region) on the right greater than left and lumbar spinal tenderness Extrem General: Yes no clubbing, cyanosis or edema Office Procedures Flu Questionnaire Does the patient have a severe egg allergy?: No Does the patient have severe life threatening allergies?: No Does the patient have a fever or illness today?: No Has the patient ever had Guillain-Levelock Syndrome?: No Has the patient ever had any past reaction to a flu shot?: No Immunizations flu vacc [id number] 6mos up(PF) 60 mcg(15 mcgx4)/0.5 mL IM syringe Performing Provider: Hung Montelongo MD [facility] Administered by: Delmar Bishop on 04/11/23 17:09 Dose Route Admin Location Dispensed Lot Number Expiration Date NDC Nutrition Services Aide 0.5 mL IM Left Deltoid 0.5 mL [id number] 10/29/23 17460-248-36 [place] VIS Given Date VIS Provided VIS Publication Date 04/11/23 Single Vaccine 20 Eligibility Eligibility Date Funding Source Not [facility] Eligible 04/11/23 Private Assessment and Plan Assessment & Plan (1) Hyperlipidemia: Code(s): E78.5 - Hyperlipidemia, unspecified Qualifiers: Hyperlipidemia type: pure hypercholesterolemia Qualified Code(s): E78.00 - Pure hypercholesterolemia, unspecified Plan: Patient's cholesterol levels have remained elevated since she was taken off Atorvastatin months ago due to her elevated LFTs Reinforced low cholesterol diet Will recheck her fasting lipids as scheduled next month for follow up and if her cholesterol levels are still significantly elevated, may need to consider treating her with the newer PCSK9 inhibitors (2) MIGUEL (obstructive sleep apnea): Comment: mild degree of sleep apnea. The AHI was 5/hr and oxygen mitul was 81%. Code(s): G47.33 - Obstructive sleep apnea (adult) (pediatric) Plan: Continue using her CPAP device when sleeping at night daily Follow up with Sleep Medicine as scheduled (3) Chronic constipation: Code(s): K59.09 - Other constipation Plan: Encouraged increased oral fluids and dietary fiber States that Lactulose and Docusate have not helped much lately; is also taking OTC Miralax, which she states helps minimally Was tried by GI on Linzess and Trulance as well recently - states that both Rx did not help Had EGD and colonoscopy done a few months ago - (+) tubular adenoma; colonoscopy was otherwise normal Follow up with GI as scheduled (4) GERD (gastroesophageal reflux disease): Code(s): K21.9 - Gastro-esophageal reflux disease without esophagitis Qualifiers: Esophagitis presence: without esophagitis Qualified Code(s): K21.9 - Gastro-esophageal reflux disease without esophagitis Plan: Dietary restrictions reinforced (5) Lumbar degenerative disc disease: Code(s): M51.36 - Other intervertebral disc degeneration, lumbar region Plan: Reinforced activity and weight lifting restrictions Continue Gabapentin 800 mg 3 times a day, Tramadol 50 mg 1-2 tablets every 8 hours as needed Underwent physical therapy last year without any significant relief Was seen by [facility] and had a diagnostic SI joint injection under fluoroscopic guidance back in September 2021 and started seeing them again recently; has been scheduled for bilateral therapeutic sacroiliac joint injection under sedation Follow up with [facility] as scheduled (6) Arthralgia: Code(s): M25.50 - Pain in unspecified joint Qualifiers: Joint pain location: other joint Qualified Code(s): M25.59 - Pain in other specified joint Plan: Involving multiple joints, especially over both hips, both elbows and both knees lately X-rays of the knees done back in August 2021 revealed (+) mild OA changes in both knees; hip and elbow x-rays came out normal (7) Orthostatic hypotension: Code(s): I95.1 - Orthostatic hypotension Plan: Continue Midodrine 10 mg TID Follow up with cardiology as scheduled (8) Migraine: Code(s): G43.909 - Migraine, unspecified, not intractable, without status migrainosus Qualifiers: Migraine type: unspecified Status migrainosus presence: without status migrainosus Intractability: not intractable Qualified Code(s): G43.909 - Migraine, unspecified, not intractable, without status migrainosus Plan: Stable lately Continue Sumatriptan 50 mg PRN (9) Memory impairment: Code(s): R41.3 - Other amnesia Plan: Was referred to and seen by neurology - advised that her memory issues are multifactorial although she was diagnosed with frontotemporal lobe degeneration and dementia as well Follow up with neurology as scheduled (10) Insomnia: Code(s): G47.00 - Insomnia, unspecified Qualifiers: Insomnia type: primary Qualified Code(s): F51.01 - Primary insomnia Plan: Sleep hygiene reinforced Continue Trazodone 50 mg daily at bedtime as needed and Prazosin 1 mg Q HS (11) Anxiety: Code(s): F41.9 - Anxiety disorder, unspecified Plan: Continue Lorazepam 1 mg BID PRN (12) Major depression, recurrent: Code(s): F33.9 - Major depressive disorder, recurrent, unspecified Qualifiers: Active/Remission status: currently active Major depression episode severity: unspecified Qualified Code(s): F33.9 - Major depressive disorder, recurrent, unspecified Plan: Continue Benztropine 1 mg BID and Sertraline 25 mg QD Was admitted to [facility] a few months ago for psychiatric decompensation and suicidal ideation Follow-up with Psychiatry as scheduled (13) Overweight (BMI 25.0-29.9): Code(s): E66.3 - Overweight Plan: Reinforced diet; exercise is unrealistic given patient's multiple medical and psychiatric morbidities Plan Flu vaccine given today Requested medical letter provided to patient today Follow up as scheduled next month Orders: Orders Influenza [id number] Immunization 04/11/23 Z23 - Encounter for immunization Coding Level of Care Code Est Pt Level 3 (81364) Diagnoses Pure hypercholesterolemia E78.00 Hyperlipidemia type: pure hypercholesterolemia MIGUEL (obstructive sleep apnea) G47.33 Chronic constipation K59.09 Gastroesophageal reflux disease without esophagitis K21.9 Esophagitis presence: without esophagitis Lumbar degenerative disc disease M51.36 Pain in other joint M25.59 Joint pain location: other joint Orthostatic hypotension I95.1 Migraine without status migrainosus, not intractable, unspecified migraine type G43.909 Migraine type: unspecified Status migrainosus presence: without status migrainosus Intractability: not intractable Memory impairment R41.3 Primary insomnia F51.01 Insomnia type: primary Anxiety F41.9 Episode of recurrent major depressive disorder, unspecified depression episode severity F33.9 Active/Remission status: currently active Major depression episode severity: unspecified Overweight (BMI 25.0-29.9) E66.3
[2023-04-11 16:35] VITALS: BP 104/70; PULSE 97; O2SAT 67; BMI 27.4
== END 2023-04-11 17:10 | disposition home or self-care (01) ==
PROVIDERS: PCP Internal Medicine; Visit Provider Internal Medicine
DX: Z23 Encounter for immunization (principal)
CPT/HCPCS: 90471; 90686; 99213

== ENCOUNTER 2023-05-18 09:03 | Outpatient (REF) | payer OTHER, SELFPAY ==
[2023-05-18 10:38] LABS: MANUAL DIFF FLAG NO
[2023-05-18 11:01] LABS: Appearance Urine Clear; Color Urine Yellow; Glucose Urine UA Negative (Negative); Leukocyte Esterase Urine Negative (Negative); Nitrite Urine Negative (Negative); PH 7.5 (5.0-9.0); Urine Blood Negative (Negative); Urine Ketones Negative (Negative); Urine Protein Negative (Neg-Trace)
[2023-05-18 11:02] LABS: Basophils Absolute Auto 0.1 X10*3/uL (0.0-0.2); Basophils Percent Auto 0.7 % (0-2); Eosinophils Absolute Auto 0.1 X10*3/uL (0.0-0.4); Eosinophils Percent Auto 1.1 % (0-4); Hematocrit 42.6 % (37.0-47.0); Hemoglobin 14.5 g/dl (12.0-16.0); Imm Gran Abs Auto 0.01 X10*3/uL (0.00-0.03); Imm Gran Pct Auto 0.1 % (0.0-0.4); Lymphocytes Absolute Auto 2.3 X10*3/uL (1.2-4.9); Mean Platelet Volume 9.4 fL (9.4-12.3); Monocytes Absolute Auto 0.4 X10*3/uL (0.1-1.2); Neutrophils Absolute Auto 4.3 x10*3/uL (2.0-8.3); Neutrophils Percent Auto 60.1 % (45-73); Platelet Count 307 X10*3/uL (160-400); Red Blood Count 4.26 X10*6/uL (4.20-5.50); Red Cell Distribution Width 11.9 % (11.0-16.0); White Blood Count 7.1 X10*3/uL (4.8-10.8)
[2023-05-18 11:34] LABS: Alanine Aminotransferase 22 U/L (0-31); Albumin Level 3.7 g/dL (3.5-5.0); Alkaline Phosphatase 125 U/L (39-117); Anion Gap 10 (12-20); Aspartate Amino Transferase 18 U/L (5-31); Bilirubin Total 0.6 mg/dL (0.0-1.0); Blood Urea Nitrogen 15 mg/dL (9-16); Calcium 9.2 mg/dL (8.4-10.2); Carbon Dioxide 25 mmol/L (22-29); Chloride 111 mmol/L (96-108); Cholesterol 236 mg/dL (<200); Estimated Glomerular Filt Rate 54; Glucose Fasting 97 mg/dL (60-99); HDL Cholesterol 49 mg/dL (>40); LDL Cholesterol Calculated 166 mg/dL (<100); Potassium 4.4 mmol/L (3.3-5.1); Sodium 142 mmol/L (135-145); Total Protein 6.7 g/dL (6.5-8.0); Triglycerides 106 mg/dL (<150)
[2023-05-18 11:50] LABS: TSH reflex Free T4 0.64 uIU/mL (0.32-4.0); Vitamin D 25-OH Total 34.8 ng/mL (>30)
== END 2023-05-18 09:04 | disposition home or self-care (01) ==
LOC: HO.LAB 09:03
PROVIDERS: PCP Internal Medicine; Visit Provider Internal Medicine
DX: R30.0 Dysuria (principal); E78.00 Pure hypercholesterolemia, unspecified; E55.9 Vitamin D deficiency, unspecified; I10 Essential (primary) hypertension
CPT/HCPCS: 36415; 80053; 80061; 81003; 82306; 84443; 85025

== ENCOUNTER 2023-05-30 14:56 | Outpatient (AMB) | payer OTHER, SELFPAY ==
[2023-05-30 15:09] VITALS: BP 100/68; PULSE 77; O2SAT 97; BMI 27.9
--- NOTE | 2023-05-30 15:09 | A.OFFPC_ITS ---
Vital Signs 05/30/23 15:09 Height 5 ft 2.5 in Weight 155 lb 0.4 oz BMI 27.9 BP 100/68 Blood Pressure Location Lt brachial Position Sitting Pulse 77 Pulse Source Pulse Oximeter Pulse Oximetry (%) 97 Oxygen Delivery Method Room Air Intake Visit Reasons: 3mth f/u Other Spatial Scientist Required: Yes Accompanied by: Self / Same As Patient Allergies acetaminophen Adverse Reaction (Unknown, Verified 07/14/23 16:02) Unknown atorvastatin Adverse Reaction (Severe, Uncoded 07/14/23 16:02) elevated liver enzymes Medication List - Last Reconciled 05/30/23 by Hung Montelongo MD albuterol sulfate 90 mcg/actuation (ProAir HFA) 2 puffs inhalation Q6H PRN 30 days benztropine 1 mg PO BID cholecalciferol (vitamin D3) (Vitamin D3) 25 mcg PO DAILY 90 days clotrimazole 1% 1 appl topical BID [CPAP device and all related supplies As directed] cyanocobalamin (vitamin B-12) 500 mcg PO DAILY diphenhydramine HCl (Banophen) 25 mg PO TID PRN docusate sodium 100 mg PO BID estradiol (Yuvafem) 10 mcg vaginal 2XW 28 days ferrous sulfate 325 mg PO DAILY furosemide 40 mg PO QAM gabapentin 800 mg (2 x 400 mg) PO TID 30 days lorazepam 1 mg PO BID PRN meclizine 25 mg PO TID PRN 30 days melatonin 3 mg PO BEDTIME midodrine 10 mg PO TID oxybutynin chloride ER 5 mg PO DAILY 90 days polyethylene glycol 3350 (Miralax) 17 grams PO DAILY potassium citrate ER 0 mEq PO prazosin 1 mg PO BEDTIME sertraline 25 mg PO DAILY sumatriptan succinate take 1 tab at onset of headache; if no relief may repeat 1 tab after at least 2 hrs; max = 4 tabs/24 hr PO tramadol 100 mg (2 x 50 mg) PO Q8H PRN 30 days trazodone 50 mg PO BEDTIME PRN zinc gluconate 10 mg PO DAILY Tobacco use date assessed: 05/30/23 Dental Screening Dental Screen Date: 05/30/23 Did you have a dental visit in the last 12 months?: Yes Did you have a dental problem in the last 6 months where you did not have access to dental care?: No Was dental information given to patient?: Patient has dentist HPI 3mth f/u HPI Details Patient comes in today for her follow up visit States that she continues to experience recurrent dizziness; denies any headaches She denies any chest pains, no increased SOB (+) recurrent nausea but has not thrown up lately; still has on and off epigastric, RUQ and LUQ abdominal pain and discomfort No change in bowel habits noted Still has chronic low back pain - states that her current Rx help somewhat Needs a couple of her Rx refilled Had her follow up labs done a couple of weeks ago - to discuss her results [facility] Medical History (Updated 07/17/23 @ 01:47 by Hung Montelongo MD) Chronic kidney disease, stage III (moderate) Obesity (BMI 30-39.9) Renal cyst Diverticulosis Tubular adenoma Asthma Spondylosis of lumbar spine Sacroiliitis Dizziness of unknown etiology Chronic constipation Hx of schizophrenia Panic attacks PTSD (post-traumatic stress disorder) MIGUEL (obstructive sleep apnea) Dyspareunia Pyelonephritis Ingrown toenail Iron deficiency anemia Major depression, recurrent Anxiety Insomnia Tremor Orthostatic hypotension Incisional hernia without obstruction or gangrene Avascular necrosis of femoral head Bilateral carpal tunnel syndrome Peroneal neuropathy Lumbar degenerative disc disease Vitamin D deficiency GERD (gastroesophageal reflux disease) Migraine Hyperlipidemia Surgical History History of left nephrectomy (~1999) History of colonoscopy History of surgery Hx of cystoscopy History of bilateral breast reduction surgery History of hysterectomy History of cholecystectomy History of endoscopy (~06/2016) History of bladder repair surgery (~03/2015) S/P cystoscopy (~07/30/12) S/P panniculectomy History of hernia repair (~03/29/10) History of bladder surgery (~10/2009) History of gastric bypass (~2008) History of incisional hernia repair (~1999) Hx of umbilical hernia repair (~1999) H/O left nephrectomy S/P laparoscopic sleeve gastrectomy Family History Father Liver cancer Mother Breast cancer Sister Lung cancer Other Mental health problem Social History Household Members: Spouse and Family Housing: House Do you presently have visiting nurse or other home services: Yes Alcohol intake: never Patient Tobacco Use Status: Never used Tobacco e-Cigarette/Vaping Use: Never Used Second Hand Smoke Exposure: No Advance Directives Date on File: 07/12/21 service: No Current occupational status: disabled Sexual orientation: Straight/Heterosexual Cognitive needs: No Hearing needs: No Vision needs: Yes Female Reproductive History Menstrual Age of Menarche: 13 Questionnaire PHQ-9 Over the last 2 weeks, how often have you been bothered by any of the following problems? 1. Little interest or pleasure in doing things: several days 2. Feeling down, depressed, or hopeless: several days 3. Trouble falling or staying asleep, or sleeping too much: several days 4. Feeling tired or having little energy: several days 5. Poor appetite or overeating: several days 6. Feeling bad about yourself - or that you are a failure or have let yourself or your family down: not at all 7. Trouble concentrating on things, such as reading the newspaper or watching television: not at all 8. Moving or speaking so slowly that other people could have noticed. Or the opposite - being so fidgety or restless that you have been moving around a lot more than usual: not at all 9. Thoughts that you would be better off or of hurting yourself in some way: not at all Total score: 5 Depression Screening Interpretation: Positive Depression Screening Follow-up: Existing condition and In treatment Depression Screening Done: Yes 46244 - PHQ-9 Billing: Yes Source: Developed by Drs. Vincenzo Mayo, Beverly Hernandez, Angel Vogel and colleagues, with an educational juan antonio from [employer]. Thrive Questionnaire Date Thrive assessed: 05/30/23 I am a: Patient What is your living situation today?: I have a steady place to live Within the past 12 months, did the food you bought not last and you didn't have the money to get more?: Never true Within the past 12 months, did you worry whether your food would run out before you got money to buy more?: Never true Do you have trouble paying for medicines?: No Do you have trouble getting transportation to medical appointments?: No Do you have trouble paying your heating and electricity bill?: No Do you have trouble taking care of your child, family member or friend?: No Do you have trouble with day-to-day activities such as bathing, preparing meals, shopping, managing finances, etc.?: No Are you currently unemployed and looking for a job?: No Are you interested in more education?: No Please select the resources that you would like help with: None Currently or been in a relationship where the following occur: no concerns reported THRIVE Score: 0 AUDIT C Alcohol Use Questionnaire (AUDIT-C) 1. How often do you have a drink containing alcohol?: Never 3. How often do you have six or more drinks on one occasion?: Never Total Score: 0 Score Reviewed/Action Taken: Yes JAMIE-7 AMB Questionnaire JAMIE-7 Date JAMIE - 7 assessed: 05/30/23 Feeling nervous, anxious, or on edge: 0 = Not at all Not being able to stop or control worryin = Not at all Worrying too much about different things: 0 = Not at all Trouble relaxin = Not at all Being so restless that it is hard to sit still: 0 = Not at all Becoming easily annoyed or irritable: 0 = Not at all Feeling afraid as if something awful might happen: 0 = Not at all Total JAMIE-7 score (0-4 normal; 5-9 mild; 10-14 moderate; 15-21 severe): 0 Source: Developed by Drs. Vincenzo Mayo, Beverly Hernandez, Angel Vogel and colleagues, with an educational juan antonio from [employer]. Review of Systems Const Denies chills, Reports difficulty sleeping, Reports fatigue, Denies fever(s) and Denies headache(s) ENT Denies dysphagia, Reports dizziness (on and off), Denies headache(s), Denies neck pain, Denies odynophagia and Denies sore throat Card Denies chest pain, Denies palpitations and Denies dyspnea Resp Denies cough, Denies dyspnea and Denies wheezing GI Reports abdominal pain (on and off over the right upper quadrant and upper abdomen), Reports constipation (chronic - better controlled lately), Denies dysphagia, Denies heartburn, Denies diarrhea, Reports nausea (on and off), Denies odynophagia and Denies vomiting Denies nocturia, Denies dysuria and Denies urinary urgency Musc Reports back pain (over the lower back - chronic), Reports arthralgias (involving multiple joints), Denies neck pain, Reports numbness (generalized, on and off) and Reports tingling (on and off, generalized) Skin/Breast Denies rash Neuro Reports dizziness (on and off), Denies headache(s), Reports memory loss, Reports numbness (generalized, on and off) and Reports tingling (on and off, generalized) Psych Denies anxiety, Reports depression and Reports memory loss Endo Reports fatigue and Denies palpitations Aller/Immun Denies wheezing Physical exam (Primary Care) Vital Signs: Last Vital Signs Pulse 77 05/30/23 15:09 BP 100/68 05/30/23 15:09 Pulse Ox 97 05/30/23 15:09 Oxygen Delivery Method Room Air 05/30/23 15:09 BMI result Body Mass Index 27.9 Tobacco/Smoking Status: Tobacco use Status Tobacco use date assessed 05/30/23 05/30/23 15:12 Patient Tobacco Use Status Never used Tobacco 05/30/23 15:12 e-Cigarette/Vaping Use Never Used 05/30/23 15:12 PHQ-9: PHQ-9 Score PHQ-9: Total score 5 05/30/23 16:30 Depression Screening Interpretation: Positive Depression Screening Follow-up: Existing condition and In treatment Thrive Assessment: Date of Thrive Assessment Date Thrive assessed 05/30/23 05/30/23 15:12 Currently or been in a relationship where the following occur: no concerns reported Const General: no acute distress and alert HENMT Ears: TM's normal bilaterally and EAC's normal Throat: Yes posterior oropharynx normal and Yes tonsils normal Neck Neck: Yes no lymphadenopathy and Yes supple Thyroid: Thyroid normal Resp Auscultation: clear to auscultation bilaterally, no rales and no wheezes Cardio Rate: regular rate Rhythm: regular rhythm Heart sounds: no murmurs GI Palpation (GI): Soft to palpation, Tenderness to palpation present (GI) (mild) in the epigastrum and in the RUQ, no guarding and No Rebound tenderness present Back/Spine/Pelvis Thoracic/Lumbar Spine: paraspinal muscle tenderness (over the lumbar region) on the right greater than left and lumbar spinal tenderness Skin Rashes: no rashes Extrem General: Yes no clubbing, cyanosis or edema Results Reviewed Results Reviewed: Laboratory Tests 01/23/23 02/20/23 02/20/23 08:43 08:53 08:53 WBC 6.1 Hgb 15.6 Hct 46.2 Plt Count 318 Sodium 141 Potassium 4.4 Creatinine 1.08 Estimated GFR 53 Fasting Glucose 109 H Calcium 9.8 AST 16 ALT 16 Triglycerides 102 Cholesterol 260 H LDL Cholesterol, Calc 184 H HDL Cholesterol 56 25-OH Vitamin D Total 43.8 TSH 0.50 Free T4 0.87 Ur Specific [place] Urine Protein Urine Glucose (UA) Urine Blood Urine Nitrite Ur Leukocyte Esterase 02/20/23 05/18/23 05/18/23 09:30 10:32 10:36 WBC 7.1 Hgb 14.5 Hct 42.6 Plt Count 307 Sodium 142 Potassium 4.4 Creatinine 1.07 Estimated GFR 54 Fasting Glucose 97 Calcium 9.2 AST 18 ALT 22 Triglycerides 106 Cholesterol 236 H LDL Cholesterol, Calc 166 H HDL Cholesterol 49 25-OH Vitamin D Total 34.8 TSH 0.64 Free T4 Ur Specific [place] 1.015 1.020 Urine Protein Negative Negative Urine Glucose (UA) Negative Negative Urine Blood Negative Negative Urine Nitrite Negative Ur Leukocyte Esterase Negative 06/29/23 14:23 WBC 7.9 Hgb 13.8 Hct 39.7 Plt Count 255 Sodium Potassium Creatinine Estimated GFR Fasting Glucose Calcium AST ALT Triglycerides Cholesterol LDL Cholesterol, Calc HDL Cholesterol 25-OH Vitamin D Total TSH Free T4 Ur Specific [place] Urine Protein Urine Glucose (UA) Urine Blood Urine Nitrite Ur Leukocyte Esterase Assessment and Plan Assessment & Plan (1) Hyperlipidemia: Code(s): E78.5 - Hyperlipidemia, unspecified Qualifiers: Hyperlipidemia type: pure hypercholesterolemia Qualified Code(s): E78.00 - Pure hypercholesterolemia, unspecified Plan: Results of her labs done a couple of weeks ago reviewed and discussed with patient - patient's cholesterol levels have remained elevated since she was taken off Atorvastatin months ago due to her elevated LFTs Advised that her numbers are still high on her recent labs and recommend that she try some other cholesterol medications at this time Reinforced low cholesterol diet Will start her on a trial of low dose Rosuvastatin 5 mg QD Will recheck her fasting lipids and labs in 3 months for follow up - advised that if her cholesterol levels are still significantly elevated at her next appt OR she also could not tolerate low dose Rosuvastatin, then we may need to consider treating her with the newer PCSK9 inhibitors (2) MIGUEL (obstructive sleep apnea): Comment: mild degree of sleep apnea. The AHI was 5/hr and oxygen mitul was 81%. Code(s): G47.33 - Obstructive sleep apnea (adult) (pediatric) Plan: Continue using her CPAP device when sleeping at night daily Follow up with Sleep Medicine as scheduled (3) Chronic constipation: Code(s): K59.09 - Other constipation Plan: Encouraged increased oral fluids and dietary fiber States that Lactulose and Docusate 100 mg BID have not helped much previously; is also taking OTC Miralax, which she states helps minimally Was tried by GI on Linzess and Trulance as well recently - states that both Rx did not help Is currently on a combination regimen of Linzess 145 mcg QD, Docusate 100 mg BID and Miralax 17 gm QD Had EGD and colonoscopy done last year - (+) tubular adenoma; colonoscopy was otherwise normal Follow up with GI as scheduled (4) GERD (gastroesophageal reflux disease): Code(s): K21.9 - Gastro-esophageal reflux disease without esophagitis Qualifiers: Esophagitis presence: without esophagitis Qualified Code(s): K21.9 - Gastro-esophageal reflux disease without esophagitis Plan: Dietary restrictions reinforced (5) Lumbar degenerative disc disease: Code(s): M51.36 - Other intervertebral disc degeneration, lumbar region Plan: Reinforced activity and weight lifting restrictions Continue Gabapentin 800 mg 3 times a day, Tramadol 50 mg 1-2 tablets every 8 hours as needed Underwent physical therapy last year without any significant relief Was seen by [facility] and had a diagnostic SI joint injection under fluoroscopic guidance back in September 2021 and started seeing them again recently; has been scheduled for bilateral therapeutic sacroiliac joint injection under sedation Follow up with [facility] as scheduled (6) Arthralgia: Code(s): M25.50 - Pain in unspecified joint Qualifiers: Joint pain location: other joint Qualified Code(s): M25.59 - Pain in other specified joint Plan: Involving multiple joints, especially over both hips, both elbows and both knees lately X-rays of the knees done back in August 2021 revealed (+) mild OA changes in both knees; hip and elbow x-rays came out normal Continue Gabapentin 800 mg TID and Tramadol 50 mg TID PRN for pain (7) Orthostatic hypotension: Code(s): I95.1 - Orthostatic hypotension Plan: Continue Midodrine 10 mg TID Follow up with cardiology as scheduled (8) Migraine: Code(s): G43.909 - Migraine, unspecified, not intractable, without status migrainosus Qualifiers: Migraine type: unspecified Status migrainosus presence: without status migrainosus Intractability: not intractable Qualified Code(s): G43.909 - Migraine, unspecified, not intractable, without status migrainosus Plan: Stable lately Continue Sumatriptan 50 mg PRN (9) Memory impairment: Code(s): R41.3 - Other amnesia Plan: Was referred to and seen by neurology - advised that her memory issues are multifactorial although she was diagnosed with frontotemporal lobe degeneration and dementia as well Follow up with neurology as scheduled (10) Insomnia: Code(s): G47.00 - Insomnia, unspecified Qualifiers: Insomnia type: primary Qualified Code(s): F51.01 - Primary insomnia Plan: Sleep hygiene reinforced Was taking Trazodone 50 mg daily at bedtime as needed and Prazosin 1 mg Q HS in the past but currently appears to be only taking Melatonin 5 mg Q HS Is also on Aripiprazole 5 mg Q HS (11) Anxiety: Code(s): F41.9 - Anxiety disorder, unspecified Plan: Continue Lorazepam 1 mg BID PRN (12) Major depression, recurrent: Code(s): F33.9 - Major depressive disorder, recurrent, unspecified Qualifiers: Active/Remission status: currently active Major depression episode severity: unspecified Qualified Code(s): F33.9 - Major depressive disorder, recurrent, unspecified Plan: Continue Benztropine 1 mg BID and Sertraline 25 mg QD Was admitted to [facility] a few months ago for psychiatric decompensation and suicidal ideation Follow-up with Psychiatry as scheduled (13) Overweight (BMI 25.0-29.9): Code(s): E66.3 - Overweight Plan: Reinforced diet; exercise is unrealistic given patient's multiple medical and psychiatric morbidities Plan Follow up in 3 months Orders: Orders Complete Blood Count Auto Diff 3 Months D64.9 - Anemia, unspecified Lipid Panel 3 Months E78.00 - Pure hypercholesterolemia, unspecified Comprehensive [place]. Panel Fast 3 Months E78.00 - Pure hypercholesterolemia, unspecified Medications: New rosuvastatin 5 mg PO DAILY 30 tabs 3RF 30 days Refilled midodrine do not give last dose of day after 6PM or within 4 hrs of bedtime 10 mg PO TID 30 tabs 0RF meclizine 25 mg PO TID PRN 90 tabs 1RF dizziness 30 days Coding Level of Care Code Est Pt Level 4 (59123) Diagnoses Pure hypercholesterolemia E78.00 Hyperlipidemia type: pure hypercholesterolemia MIGUEL (obstructive sleep apnea) G47.33 Chronic constipation K59.09 Gastroesophageal reflux disease without esophagitis K21.9 Esophagitis presence: without esophagitis Lumbar degenerative disc disease M51.36 Pain in other joint M25.59 Joint pain location: other joint Orthostatic hypotension I95.1 Migraine without status migrainosus, not intractable, unspecified migraine type G43.909 Migraine type: unspecified Status migrainosus presence: without status migrainosus Intractability: not intractable Memory impairment R41.3 Primary insomnia F51.01 Insomnia type: primary Anxiety F41.9 Episode of recurrent major depressive disorder, unspecified depression episode severity F33.9 Active/Remission status: currently active Major depression episode severity: unspecified Overweight (BMI 25.0-29.9) E66.3
== END 2023-05-30 16:36 | disposition home or self-care (01) ==
PROVIDERS: PCP Internal Medicine; Visit Provider Internal Medicine
DX: E78.00 Pure hypercholesterolemia, unspecified (principal); F33.9 Major depressive disorder, recurrent, unspecified; G47.33 Obstructive sleep apnea (adult) (pediatric); K59.09 Other constipation; K21.9 Gastro-esophageal reflux disease without esophagitis; M51.36 Other intervertebral disc degeneration, lumbar region; M25.59 Pain in other specified joint; I95.1 Orthostatic hypotension; G43.909 Migraine, unspecified, not intractable, without status migrainosus; R41.3 Other amnesia; F51.01 Primary insomnia; F41.9 Anxiety disorder, unspecified
CPT/HCPCS: 99214

== ENCOUNTER 2023-06-09 09:51 | Outpatient (REF) | payer OTHER, SELFPAY ==
--- NOTE | ~2023-06-09 | XR_ITS ---
EXAMINATION: XR ABDOMEN KUB CLINICAL INDICATION: Calculus of kidney COMPARISON: Worsening abdomen from 10/25/2022, KUB radiograph from 07/13/2022 TECHNIQUE: AP view of the abdomen. FINDINGS: 3 mm calculus overlying the right renal lower pole shadow. No radiopaque patient overlying the left renal shadow or bilateral ureteral paths. Pelvic phleboliths are visualized. Bowel gas is nonobstructive. Left abdominal wall hernia mesh noted. Surgical clips in the bilateral upper abdomen and right lower abdomen. Suture material in the left upper abdomen. Degenerative changes of the thoracolumbar spine and bilateral acetabular joints. Soft tissues are unremarkable. XR/XR KUB IMPRESSION: 1. 3 mm calculus overlying the right renal lower pole shadow. 2. No radiopaque patient overlying the left renal shadow or bilateral ureteral paths.
== END 2023-06-09 09:52 | disposition home or self-care (01) ==
LOC: HO.XRAY 09:51
PROVIDERS: PCP Internal Medicine; Visit Provider Nurse Practitioner Family
DX: N20.0 Calculus of kidney (principal)
CPT/HCPCS: 74018

== ENCOUNTER 2023-06-13 08:05 | Outpatient (AMB) | payer OTHER, SELFPAY ==
--- NOTE | 2023-06-13 08:58 | A.OFFVIS_ITS ---
Intake Vital Signs 06/13/23 08:59 06/13/23 09:15 06/13/23 09:17 Height 5 ft 2.5 in Weight 152 lb 1.903 oz BMI 27.4 BP 107/74 112/78 110/86 Blood Pressure Location Lt brachial Lt brachial Lt brachial Position Supine Sitting Standing Pulse 65 67 81 Intake Visit Reasons: COYOTE HUNTER/Reginald/HoTN Intake Note: New patient for hypertension c/o blurry vision and itchiness, bruising and spinning Supervisor Shaving And Splitting Required: Yes Supervisor Shaving And Splitting Name: [facility] [place] Allergies acetaminophen Adverse Reaction (Unknown, Verified 05/30/23 16:27) Unknown atorvastatin Adverse Reaction (Severe, Uncoded 05/30/23 16:35) elevated liver enzymes Medication List - Last Reconciled 06/13/23 by Anderson Vargas MD albuterol sulfate 90 mcg/actuation (ProAir HFA) 2 puffs inhalation Q6H PRN 30 days aripiprazole 5 mg PO DAILY cholecalciferol (vitamin D3) (Vitamin D3) 25 mcg PO DAILY 90 days clotrimazole 1% 1 appl topical BID [CPAP device and all related supplies As directed] cyanocobalamin (vitamin B-12) 500 mcg PO DAILY diphenhydramine HCl (Banophen) 25 mg PO TID PRN docusate sodium 100 mg PO BID estradiol (Yuvafem) 10 mcg vaginal 2XW 28 days ferrous sulfate 325 mg PO DAILY gabapentin 800 mg (2 x 400 mg) PO TID 30 days lorazepam 1 mg PO BID PRN meclizine 25 mg PO TID PRN 30 days melatonin 3 mg PO BEDTIME midodrine 10 mg PO TID oxybutynin chloride ER 5 mg PO DAILY 90 days polyethylene glycol 3350 (Miralax) 17 grams PO DAILY potassium citrate ER 5 mEq PO DAILY rosuvastatin 5 mg PO DAILY 30 days tramadol 100 mg (2 x 50 mg) PO Q8H PRN 30 days HPI HPI Comments History of Present Illness Details Xenia was referred here for evaluation of lightheadedness. History was obtained with help of a certified associate professor of chemistry in the room. Despite the associate professor of chemistry patient is not a good historian. Patient has longstanding history and has been seen by me in the past for orthostatic lightheadedness. Patient is on multiple medication including psychotropic medications. The list of the medicines was then reconcile with help of the pharmacy. Patient is currently not on furosemide therapy and says that this was stopped about 2 years ago. Although this was still on the list. Patient status post bariatric surgery for weight loss and has lost weight. Suffers from significant anxiety disorder and and depression. Patient however is referred here because she has been having symptoms of lightheadedness. She has been on midodrine 5 mg t.i.d. in the past. She continues to have symptoms with walking of lightheadedness and feels like she is going to faint and has cloudy vision. She usually then sits down. Symptoms then resolved. She said she had a syncopal episode about 2 days ago. She had seen her PCP about 2 weeks ago and midodrine was increased to 10 mg t.i.d.. Despite that she continues to have these symptoms. She also says she gets panic attacks and associated with that she gets rapid heart rate and then feels itchy and prickly all over. She has not had a syncopal episode with that. She denies any chest pain or shortness of breath. However she is very concerned about her symptoms. She does not have adequate oral intake of water as well as does not use salt in her diet. She denies any heart failure symptoms. Patient also complains of symptoms of lightheadedness which she describes as the world spinning when she is lying down. The symptoms do not happen in upright positioning. [facility] Medical History Obesity (BMI 30-39.9) Renal cyst Diverticulosis Tubular adenoma Asthma Spondylosis of lumbar spine Sacroiliitis Dizziness of unknown etiology Chronic constipation Hx of schizophrenia Panic attacks PTSD (post-traumatic stress disorder) MIGUEL (obstructive sleep apnea) Dyspareunia Pyelonephritis Ingrown toenail Iron deficiency anemia Major depression, recurrent Anxiety Insomnia Tremor Orthostatic hypotension Incisional hernia without obstruction or gangrene Avascular necrosis of femoral head Bilateral carpal tunnel syndrome Peroneal neuropathy Lumbar degenerative disc disease Vitamin D deficiency GERD (gastroesophageal reflux disease) Migraine Hyperlipidemia Surgical History History of colonoscopy History of surgery Hx of cystoscopy History of bilateral breast reduction surgery History of hysterectomy History of cholecystectomy History of endoscopy (~06/2016) History of bladder repair surgery (~03/2015) S/P cystoscopy (~07/30/12) S/P panniculectomy History of hernia repair (~03/29/10) History of bladder surgery (~10/2009) History of gastric bypass (~2008) History of incisional hernia repair (~1999) Hx of umbilical hernia repair (~1999) H/O left nephrectomy S/P laparoscopic sleeve gastrectomy Family History Father Liver cancer Mother Breast cancer Sister Lung cancer Other Mental health problem Social History Household Members: Spouse and Family Housing: House Do you presently have visiting nurse or other home services: Yes Alcohol intake: never Patient Tobacco Use Status: Never used Tobacco e-Cigarette/Vaping Use: Never Used Second Hand Smoke Exposure: No Advance Directives Date on File: 07/12/21 service: No Current occupational status: disabled Sexual orientation: Straight/Heterosexual Cognitive needs: No Hearing needs: No Vision needs: Yes Female Reproductive History Menstrual Age of Menarche: 13 Review of Systems Const Denies chills, Denies daytime sleepiness, Denies fatigue, Denies fever(s), Denies frequent falls, Denies poor appetite, Denies snoring, Denies stops breathing during sleep, Denies weakness, Denies weight gain and Denies weight loss Eyes Denies loss of vision ENT Denies dizziness and Denies hearing loss Card Denies chest pain, Denies claudication, Denies leg edema, Denies lightheadedness, Denies palpitations, Denies dyspnea, Denies dyspnea on exertion and Denies orthopnea Resp Denies cough, Denies excessive phlegm production, Denies dyspnea, Denies dyspnea on exertion, Denies snoring and Denies wheezing GI Denies abdominal pain, Denies hematochezia, Denies change in bowel habits, Denies nausea and Denies vomiting Denies urinary frequency and Denies dysuria Musc Denies arthralgias, Denies muscle weakness, Denies numbness and Denies other (frequent falls) Skin/Breast Denies nail changes and Denies rash Neuro Denies Abnormal speech present, Denies dizziness, Denies frequent falls, Denies loss of vision, Denies memory loss, Denies numbness and Denies weakness Psych Denies depression and Denies memory loss Endo Denies fatigue and Denies palpitations Catarino/Lymph Reports easy bruising and Reports other (anemia) Aller/Immun Denies wheezing Physical Exam Vital Signs: Last Vital Signs Pulse 81 06/13/23 09:17 BP 110/86 06/13/23 09:17 BMI result Body Mass Index 27.4 Const General: cooperative, comfortable, no acute distress, alert, awake and anxious Nutritional Appearance: average body habitus Orientation/consciousness: patient oriented x3 Limitations: no limitations HEENT Head: Yes normocephalic and Yes atraumatic Neck Neck: Yes trachea midline, Yes supple and Yes no JVD Resp Effort & Inspection: normal respiratory effort Auscultation: clear to auscultation bilaterally Cardio Jugular venous distension: no JVD Palpation: normal PMI Rate: regular rate Rhythm: regular rhythm Heart sounds: S1 normal heart sound present, S2 normal heart sound present, no click, no gallops, no murmurs and no rubs GI Auscultation: normal bowel sounds Skin General skin exam: no rashes or lesions noted Neuro General: patient oriented x3 and no focal motor deficits Speech: No Abnormal speech present Extrem General: Yes no clubbing, cyanosis or edema Psych Appearance: grossly normal Affect: Anxious affect present Office Procedures EKG Details: EKG shows normal sinus rhythm with normal EKG [id number], Complete Assessment & Plan Assessment & Plan (1) Orthostatic dizziness: Code(s): R42 - Dizziness and giddiness Plan: Patient with symptoms of orthostatic dizziness, although blood pressure today appears to be well controlled and within normal range. She is on full dose of midodrine at this point time although she does not hydrate herself well and also does not have adequate salt intake. Had a very detailed discussion about nature of orthostatic lightheadedness. Although she continues to have symptoms on full-dose midodrine, will suggest her to have a tilt-table test done. Have advised her to liberalize her water and salt intake. If she continues to have symptoms and/or has orthostatic hypotension with full hydration and midodrine th kari may need to add other agents such as Florinef and/or consider compression stockings. Orthostatic precautions were discussed advised to seek sitting or supine position she says she really symptomatic. Will also obtain cardiac event monitor to assess for any arrhythmias with symptoms of palpitations although they appear to be more related to anxiety/panic attack. Also suggest echocardiogram to evaluate for cardiac structure and function. Will follow up in the clinic after above-mentioned test. Thank you for allowing me to partake in the care Coding Level of Care Code New Pt Level 4 (79534) Diagnoses Orthostatic dizziness R42 CPT Codes EKG - CPT: 47414-[id number], Complete ([id number])
[2023-06-13 08:59] VITALS: BP 107/74; PULSE 65; BMI 27.4
[2023-06-13 09:15] VITALS: BP 112/78; PULSE 67
[2023-06-13 09:17] VITALS: BP 110/86; PULSE 81
== END 2023-06-13 09:55 | disposition home or self-care (01) ==
PROVIDERS: PCP Internal Medicine; Visit Provider Internal Medicine Cardiovascular Disease
DX: R42 Dizziness and giddiness (principal)
CPT/HCPCS: 93010; 99203

== ENCOUNTER → 2023-06-13 08:05 | Outpatient (BNVA) | payer OTHER, SELFPAY | PROVIDERS: PCP Internal Medicine; Visit Provider Internal Medicine Cardiovascular Disease | DX: E66.3 Overweight (principal); R42 Dizziness and giddiness; Z98.84 Bariatric surgery status; Z68.27 Body mass index [BMI] 27.0-27.9, adult | CPT/HCPCS: 93005; 99202 ==

== ENCOUNTER 2023-06-13 12:46 | Outpatient (AMB) | payer OTHER, SELFPAY ==
--- NOTE | 2023-06-13 12:39 | MHC.OFFVISWM ---
Intake Intake Visit Reasons: (TELEPHONE) PO LRYGB 06/16/16 Automation Machine Operator Required: Yes Allergies acetaminophen Adverse Reaction (Unknown, Verified 05/30/23 16:27) Unknown atorvastatin Adverse Reaction (Severe, Uncoded 05/30/23 16:35) elevated liver enzymes Medication List - Last Reconciled 06/13/23 by CJ Cheng albuterol sulfate 90 mcg/actuation (ProAir HFA) 2 puffs inhalation Q6H PRN 30 days aripiprazole 5 mg PO DAILY cholecalciferol (vitamin D3) (Vitamin D3) 25 mcg PO DAILY 90 days clotrimazole 1% 1 appl topical BID [CPAP device and all related supplies As directed] cyanocobalamin (vitamin B-12) 500 mcg PO DAILY diphenhydramine HCl (Banophen) 25 mg PO TID PRN docusate sodium 100 mg PO BID estradiol (Yuvafem) 10 mcg vaginal 2XW 28 days ferrous sulfate 325 mg PO DAILY gabapentin 800 mg (2 x 400 mg) PO TID 30 days lorazepam 1 mg PO BID PRN meclizine 25 mg PO TID PRN 30 days melatonin 3 mg PO BEDTIME midodrine 10 mg PO TID oxybutynin chloride ER 5 mg PO DAILY 90 days polyethylene glycol 3350 (Miralax) 17 grams PO DAILY potassium citrate ER 5 mEq PO DAILY rosuvastatin 5 mg PO DAILY 30 days tramadol 100 mg (2 x 50 mg) PO Q8H PRN 30 days HPI HPI Comments History of Present Illness Details This?is a?52?yo female who is s/p RYGB 06/16/2016. Presents for 7 year post op visit. Weight has remained stable since last visit. No complaints of nausea, vomiting, abdominal pain. She asks about an area of her private part where she is experiencing some discomfort due to skin rubbing. She again asks about skin removal surgery. Present meal plan includes: 1 scoop Pure Protein in 8oz 1% milk- 33g Pure Protein bar- 20g- OR has been having fish for lunch, perhaps 3oz, with salad Dinner of 3oz protein (21g)- has been having salad and salmon or chicken or beef will drink water and zero calorie flavor enhancer Goal of 70g/day. Exercise routine includes: recommended Sit and Be Fit or MM videos, trying to do 3x/week has been doing some Kushal classes leg weakness has improved, has been walking on treadmill PFSH Medical History Obesity (BMI 30-39.9) Renal cyst Diverticulosis Tubular adenoma Asthma Spondylosis of lumbar spine Sacroiliitis Dizziness of unknown etiology Chronic constipation Hx of schizophrenia Panic attacks PTSD (post-traumatic stress disorder) MIGUEL (obstructive sleep apnea) Dyspareunia Pyelonephritis Ingrown toenail Iron deficiency anemia Major depression, recurrent Anxiety Insomnia Tremor Orthostatic hypotension Incisional hernia without obstruction or gangrene Avascular necrosis of femoral head Bilateral carpal tunnel syndrome Peroneal neuropathy Lumbar degenerative disc disease Vitamin D deficiency GERD (gastroesophageal reflux disease) Migraine Hyperlipidemia Surgical History History of colonoscopy History of surgery Hx of cystoscopy History of bilateral breast reduction surgery History of hysterectomy History of cholecystectomy History of endoscopy (~06/2016) History of bladder repair surgery (~03/2015) S/P cystoscopy (~07/30/12) S/P panniculectomy History of hernia repair (~03/29/10) History of bladder surgery (~10/2009) History of gastric bypass (~2008) History of incisional hernia repair (~1999) Hx of umbilical hernia repair (~1999) H/O left nephrectomy S/P laparoscopic sleeve gastrectomy Family History Father Liver cancer Mother Breast cancer Sister Lung cancer Other Mental health problem Social History Household Members: Spouse and Family Housing: House Do you presently have visiting nurse or other home services: Yes Alcohol intake: never Patient Tobacco Use Status: Never used Tobacco e-Cigarette/Vaping Use: Never Used Second Hand Smoke Exposure: No Advance Directives Date on File: 07/12/21 service: No Current occupational status: disabled Sexual orientation: Straight/Heterosexual Cognitive needs: No Hearing needs: No Vision needs: Yes Female Reproductive History Menstrual Age of Menarche: 13 Assessment & Plan Assessment & Plan (1) Overweight (BMI 25.0-29.9): Code(s): E66.3 - Overweight (2) History of gastric bypass: Onset Date: ~2008 Comment: revision of GBP Jun 2016 Code(s): Z98.84 - Bariatric surgery status Plan Once again provided contact info for [facility] to discuss options for soft tissue/skin procedures. Will continue same meal plan as she is happy with it. Pt recently had bloodwork done, will order vitamin labs RTC 1 year or sooner for any new issues. Patient is overweight and is not considered stable at this time. I spent a total of 30 minutes reviewing/updating records, examining the patient and counseling the patient on weight management as detailed above. Orders: Orders Vitamin B12 and Folate Today E66.3 - Overweight, Z98.84 - Bariatric surgery status Zinc Today E66.3 - Overweight, Z98.84 - Bariatric surgery status Vitamin A Today E66.3 - Overweight, Z98.84 - Bariatric surgery status Vitamin B1 Today E66.3 - Overweight, Z98.84 - Bariatric surgery status Coding Level of Care Code Tele Est Pt Level 4 (84239) Diagnoses Overweight (BMI 25.0-29.9) E66.3 History of gastric bypass Z98.84
== END 2023-06-13 12:57 | disposition home or self-care (01) ==
LOC: HO.HBS 12:46
PROVIDERS: PCP Internal Medicine; Visit Provider Physician Assistant Surgical
DX: E66.3 Overweight (principal); Z98.84 Bariatric surgery status
CPT/HCPCS: 99214

== ENCOUNTER 2023-06-21 14:49 | Outpatient (AMB) | payer OTHER, SELFPAY ==
[2023-06-21 15:08] VITALS: BP 103/63; PULSE 74; BMI 27.9
--- NOTE | 2023-06-21 15:08 | A.OFFVIS_ITS ---
Intake Vital Signs 06/21/23 15:08 Height 5 ft 2.5 in Weight 154 lb 12.232 oz BMI 27.9 BP 103/63 Blood Pressure Location Rt brachial Position Sitting Pulse 74 Pulse Source Pulse Oximeter Intake Visit Reasons: 3 month follow up Intake Note: Pt presents to the office today for a 3 month follow up for constipation. Pt states she needs to push a lot to move her bowels and states they are hard. Pt states that when she wipes there is bright red blood. She states she has about 2 bowel movements a week. Pt denies any N/V but states she does have abdominal pain when she hasnt had a bowel movement in a few days. Accompanied by: Daughter Allergies acetaminophen Adverse Reaction (Unknown, Verified 06/21/23 15:10) Unknown atorvastatin Adverse Reaction (Severe, Uncoded 06/21/23 15:10) elevated liver enzymes HPI 3 month follow up HPI Details LAST VISIT Constipation Diverticulosis GERD (gastroesophageal reflux disease) Plan Patient will continue avoiding dietary triggers. Continue Colace and MiraLax. Patient was encouraged to increase activity to promote better bowel motility. I will see her in 6 months, sooner on as needed basis. Patient is agreeable to this plan and verbalizes understanding of instructions. She was given the opportunity to ask questions and all questions answered. ? Thank you for allowing me to participate in her care Medications New benztropine 1 mg PO BID TODAY'S VISIT: Patient is here today for follow-up. Patient is accompanied by her daughter. Patient reports that she continues to have trouble moving her bowels. Patient states that she was taking senna Dulcolax in the past and it was not helping. 1-2 minutes a week. Patient states that when she is having bowel movement he she has to push in order for her to go to the bathroom. Occasional blood after bowel movement when wiping. Patient denies actual melena, hematochezia, unintentional weight loss or ribbon like stools. Patient reports occasional dyspepsia without dysphagia or odynophagia. Patient reports that her mouth feels sore especially towards the end of the day. Patient states that she saw dentist and he gave her oral rinse, however her symptoms did not get better after. Patient denies any nausea or vomiting. [facility] Medical History Obesity (BMI 30-39.9) Renal cyst Diverticulosis Tubular adenoma Asthma Spondylosis of lumbar spine Sacroiliitis Dizziness of unknown etiology Chronic constipation Hx of schizophrenia Panic attacks PTSD (post-traumatic stress disorder) MIGUEL (obstructive sleep apnea) Dyspareunia Pyelonephritis Ingrown toenail Iron deficiency anemia Major depression, recurrent Anxiety Insomnia Tremor Orthostatic hypotension Incisional hernia without obstruction or gangrene Avascular necrosis of femoral head Bilateral carpal tunnel syndrome Peroneal neuropathy Lumbar degenerative disc disease Vitamin D deficiency GERD (gastroesophageal reflux disease) Migraine Hyperlipidemia Surgical History History of colonoscopy History of surgery Hx of cystoscopy History of bilateral breast reduction surgery History of hysterectomy History of cholecystectomy History of endoscopy (~06/2016) History of bladder repair surgery (~03/2015) S/P cystoscopy (~07/30/12) S/P panniculectomy History of hernia repair (~03/29/10) History of bladder surgery (~10/2009) History of gastric bypass (~2008) History of incisional hernia repair (~1999) Hx of umbilical hernia repair (~1999) H/O left nephrectomy S/P laparoscopic sleeve gastrectomy Family History Father Liver cancer Mother Breast cancer Sister Lung cancer Other Mental health problem Social History Household Members: Spouse and Family Housing: House Do you presently have visiting nurse or other home services: Yes Alcohol intake: never Patient Tobacco Use Status: Never used Tobacco e-Cigarette/Vaping Use: Never Used Second Hand Smoke Exposure: No Advance Directives Date on File: 07/12/21 service: No Current occupational status: disabled Sexual orientation: Straight/Heterosexual Cognitive needs: No Hearing needs: No Vision needs: Yes Female Reproductive History Menstrual Age of Menarche: 13 Review of Systems Const Denies weight gain and Denies weight loss ENT Reports no additional complaints, Denies dysphagia and Denies odynophagia Card Reports no additional complaints Resp Reports no additional complaints GI Denies abdominal pain, Denies belching, Denies melena, Denies bloating, Denies change in bowel habits, Reports constipation, Denies dysphagia, Denies excessive flatus, Denies dyspepsia, Denies heartburn, Denies diarrhea, Denies loose stools, Denies nausea, Denies odynophagia, Denies vomiting and Reports other (mouth pain) Reports no additional complaints Musc Reports no additional complaints Neuro Reports no additional complaints Psych Reports no additional complaints Endo Reports no additional complaints Physical Exam Vital Signs: Last Vital Signs Pulse 74 06/21/23 15:08 BP 103/63 06/21/23 15:08 BMI result Body Mass Index 27.9 Const General: healthy appearing, no acute distress and well developed Nutritional Appearance: well nourished Orientation/consciousness: patient oriented x3 HEENT Mouth: other (Thrush) Resp Effort & Inspection: normal respiratory effort, able to speak in complete sentences, no tracheal deviation and symmetric chest movement Auscultation: clear to auscultation bilaterally Cardio Rate: regular rate GI Inspection: Yes normal to inspection and No distended Palpation (GI): Soft to palpation, not firm, nontender and No hepatosplenomegaly present Auscultation: normal bowel sounds General: Yes no CVA tenderness Back/Spine/Pelvis Back: no CVA tenderness Skin General skin exam: elasticity normal, turgor normal and dry skin Neuro General: patient oriented x3 Psych Appearance: grossly normal Mental Status: mental status grossly normal Assessment & Plan Assessment & Plan (1) Constipation: Code(s): K59.00 - Constipation, unspecified Qualifiers: Constipation type: drug induced constipation Qualified Code(s): K59.03 - Drug induced constipation (2) Diverticulosis: Code(s): K57.90 - Diverticulosis of intestine, part unspecified, without perforation or abscess without bleeding (3) GERD (gastroesophageal reflux disease): Code(s): K21.9 - Gastro-esophageal reflux disease without esophagitis Qualifiers: Esophagitis presence: without esophagitis Qualified Code(s): K21.9 - Gastro-esophageal reflux disease without esophagitis (4) Transaminitis: Code(s): R74.01 - Elevation of levels of liver transaminase levels Plan Will start patient on Linzess. Patient was encouraged to increase fluid intake and activity to promote better bowel motility. Continue taking stool softeners at night time. Will send her script for nystatin swish and swallow. Direction on how to take it given to patient and her daughter. I will see patient in 5 weeks, sooner on as needed basis. Patient is agreeable to this plan and verbalizes understanding of instructions. She was given the opportunity to ask questions and all questions answered. Thank for allowing me to participate in her care Medications: New nystatin swish and swallow 1 mL PO TID 10 days 30 mL 0RF linaclotide (Linzess) 145 mcg PO DAILY 30 caps 2RF Coding Level of Care Code Est Pt Level 4 (28690) Diagnoses Drug-induced constipation K59.03 Constipation type: drug induced constipation Diverticulosis K57.90 Gastroesophageal reflux disease without esophagitis K21.9 Esophagitis presence: without esophagitis Transaminitis R74.01 Time Spent (min) 35 Comment 25 minutes spent with patient and additional 10 minutes spent reviewing her records
== END 2023-06-21 15:43 | disposition home or self-care (01) ==
PROVIDERS: PCP Internal Medicine; Visit Provider Nurse Practitioner Family
DX: K59.03 Drug induced constipation (principal); K57.90 Diverticulosis of intestine, part unspecified, without perforation or abscess without bleeding; K21.9 Gastro-esophageal reflux disease without esophagitis; R74.01 Elevation of levels of liver transaminase levels
CPT/HCPCS: 99214

== ENCOUNTER → 2023-06-21 14:49 | Outpatient (BNVA) | payer OTHER, SELFPAY | PROVIDERS: PCP Internal Medicine; Visit Provider Nurse Practitioner Family | DX: K59.03 Drug induced constipation (principal); K57.90 Diverticulosis of intestine, part unspecified, without perforation or abscess without bleeding; K21.9 Gastro-esophageal reflux disease without esophagitis; R74.01 Elevation of levels of liver transaminase levels | CPT/HCPCS: 99212 ==

== ENCOUNTER 2023-06-26 12:41 | Outpatient (AMB) | payer OTHER, SELFPAY ==
--- NOTE | 2023-06-26 13:20 | MHC.OFFVIS ---
Intake Vital Signs 06/26/23 13:29 Height 5 ft 2.3 in Weight 156 lb 8 oz BMI 28.3 BP 115/70 Blood Pressure Location Rt brachial Position Sitting Pulse 64 Pulse Source Pulse Oximeter Pulse Oximetry (%) 100 Oxygen Delivery Method Room Air Intake Visit Reasons: 6m follow up MIGUEL-Confirmed Intake Note: Patient presents for 6 month f/u. the machine is not functioning apropiately. Water keeps flowing up the nose Allergies acetaminophen Adverse Reaction (Unknown, Verified 06/29/23 13:47) Unknown atorvastatin Adverse Reaction (Severe, Uncoded 06/29/23 13:47) elevated liver enzymes HPI HPI Comments History of Present Illness Details 52 y/o female patient presents for follow up of sleep apnea. The home sleep study result was significant for mild degree of sleep apnea. The AHI was 5/hr and oxygen mitul was 81%. Pt started APAP [id number]. The compliance and therapy response(11/24/22-02/21/23) reviewed. Pt reports she stopped using CPAP because the CPAP water reservoir broken, and water flows to the tubing and she can't use it. Her home care company is [employer]. She contacted to [facility], they send new tubing and mask, but still the water flows back to tubing. Pt reports she slept well with CPAP, and felt refreshed in the morning and has more energy during daytime. Pt wants to restart using it if she can fix the CPAP. [facility] Medical History Obesity (BMI 30-39.9) Renal cyst Diverticulosis Tubular adenoma Asthma Spondylosis of lumbar spine Sacroiliitis Dizziness of unknown etiology Chronic constipation Hx of schizophrenia Panic attacks PTSD (post-traumatic stress disorder) MIGUEL (obstructive sleep apnea) Dyspareunia Pyelonephritis Ingrown toenail Iron deficiency anemia Major depression, recurrent Anxiety Insomnia Tremor Orthostatic hypotension Incisional hernia without obstruction or gangrene Avascular necrosis of femoral head Bilateral carpal tunnel syndrome Peroneal neuropathy Lumbar degenerative disc disease Vitamin D deficiency GERD (gastroesophageal reflux disease) Migraine Hyperlipidemia Surgical History History of colonoscopy History of surgery Hx of cystoscopy History of bilateral breast reduction surgery History of hysterectomy History of cholecystectomy History of endoscopy (~06/2016) History of bladder repair surgery (~03/2015) S/P cystoscopy (~07/30/12) S/P panniculectomy History of hernia repair (~03/29/10) History of bladder surgery (~10/2009) History of gastric bypass (~2008) History of incisional hernia repair (~1999) Hx of umbilical hernia repair (~1999) H/O left nephrectomy S/P laparoscopic sleeve gastrectomy Family History Father Liver cancer Mother Breast cancer Sister Lung cancer Other Mental health problem Social History Household Members: Spouse and Family Housing: House Do you presently have visiting nurse or other home services: Yes Alcohol intake: never Patient Tobacco Use Status: Never used Tobacco e-Cigarette/Vaping Use: Never Used Second Hand Smoke Exposure: No Advance Directives: Yes Advance Directives on File: Yes Advance Directives Date on File: 07/12/21 service: No Current occupational status: disabled Sexual orientation: Straight/Heterosexual Cognitive needs: No Hearing needs: No Vision needs: Yes Female Reproductive History Menstrual Age of Menarche: 13 Review of Systems Const All systems reviewed & are unremarkable except as noted in HPI and below ENT Reports Normal hearing present Neuro Reports Normal hearing present Physical Exam Vital Signs: Last Vital Signs Pulse 64 06/26/23 13:29 BP 115/70 06/26/23 13:29 Pulse Ox 100 06/26/23 13:29 Oxygen Delivery Method Room Air 06/26/23 13:29 BMI result Body Mass Index 28.3 Const General: cooperative Nutritional Appearance: obese Orientation/consciousness: patient oriented x3 Limitations: language barrier (Congolese speaking only) Neck Neck: Yes full ROM and Yes supple Resp Effort & Inspection: normal respiratory effort and able to speak in complete sentences Neuro Other: mouth tardive dyskinesia General: patient oriented x3, moves all extremities and no focal motor deficits Cranial nerves: Yes Bilaterally intact EOM present, Yes Midline tongue present, Yes Symmetric palate elevation present, Yes Normal hearing present, Yes Ability to bilaterally rotate head present and Yes Ability to bilaterally elevate shoulders present Cognition (Neuro): normal cognition Psych Appearance: grossly normal Mental Status: mental status grossly normal Affect: normal affect Attitude: cooperative Assessment & Plan Assessment & Plan (1) MIGUEL (obstructive sleep apnea): Comment: mild degree of sleep apnea. The AHI was 5/hr and oxygen mitul was 81%. Code(s): G47.33 - Obstructive sleep apnea (adult) (pediatric) Plan Advised patient to bring her CPAP to [facility] to fix it. She will call if her CPAP can't be fixed, and I will send a new CPAP prescription. Continue to use APAP [id number] as patient experiences good clinical effects. Stressed compliance, use CPAP nightly and more than 4hrs. Coding Level of Care Code Est Pt Level 3 (74617) Diagnoses MIGUEL (obstructive sleep apnea) G47.33
[2023-06-26 13:29] VITALS: BP 115/70; PULSE 64; O2SAT 100; BMI 28.3
== END 2023-06-26 13:43 | disposition home or self-care (01) ==
PROVIDERS: PCP Internal Medicine; Visit Provider Nurse Practitioner Family
DX: G47.33 Obstructive sleep apnea (adult) (pediatric) (principal)
CPT/HCPCS: 99213

== ENCOUNTER → 2023-06-26 12:41 | Outpatient (BNVA) | payer OTHER, SELFPAY | PROVIDERS: PCP Internal Medicine; Visit Provider Nurse Practitioner Family | DX: G47.33 Obstructive sleep apnea (adult) (pediatric) (principal) | CPT/HCPCS: 99212 ==

== ENCOUNTER 2023-06-29 13:12 | Emergency (ER) | payer OTHER, SELFPAY ==
--- NOTE | ~2023-06-29 | CT_ITS ---
EXAMINATION: CT HEAD WITHOUT CONTRAST CLINICAL INFORMATION: Altered mental status. COMPARISON: 05/31/2017 TECHNIQUE: Contiguous axial imaging was performed from the skull base to vertex without intravenous administration of contrast. This CT examination was performed using dose optimization techniques as appropriate, variously including the following: *Automated exposure control *Adjustment of mA and/or kV according to patient size (this includes techniques or standardized protocols for targeted exams where dose is matched to indication/reason for exam; i.e. extremities or head) *Use of iterative reconstruction technique DLP: 602 mGy-cm FINDINGS: There is no evidence of acute intracranial hemorrhage or territorial infarction. No mass effect or midline shift is seen. Mckeon to white matter differentiation is preserved. No extra-axial fluid collections are identified. The ventricles are normal in size. The osseous structures and soft tissues are normal. The mastoid air cells and visualized portions of the paranasal sinuses are well aerated. CT/CT head/brain wo IV con IMPRESSION: No acute intracranial pathology.
--- NOTE | 2023-06-29 13:30 | ECG_ITS ---
Test Reason : Numbness Blood Pressure : / mmHG Vent. Rate : 051 BPM Atrial Rate : 051 BPM P-R Int : 130 ms QRS Dur : 074 ms QT Int : 480 ms P-R-T Axes : 027 050 036 degrees QTc Int : 442 ms Sinus bradycardia with sinus arrhythmia Otherwise normal ECG When compared with ECG of 25-OCT-2022 12:53, Vent. rate has decreased BY 32 BPM Referred By: Froylan Gaytan Electronically Signed By:KATHARINA PRINGLE
[2023-06-29 13:47] VITALS: BP 121/70; PULSE 50; RESP 18; O2SAT 99; BMI 27.1
--- NOTE | 2023-06-29 13:58 | ED.GENADULT ---
HPI - General Adult General Chief complaint: General Medical Stated complaint: WEAK PER EMS Time Seen by Provider: 06/29/23 13:29 History of Present Illness HPI narrative: The patient is a 52-year-old woman who is primarily Nepali speaking. She lives at home. She has a complex medical and psychiatric history. She has a history of major depressive disorder with psychosis. She has had multiple psychiatric hospitalizations. According to old records the patient is medical problems include anxiety, asthma, avascular necrosis of the femoral head, hyperlipidemia, migraines, obstructive sleep apnea, as well as other conditions. An ambulance was called by her family today because of altered mental status. Apparently she had been complaining of body numbness that started last night. Related Data Home Medications Medication Instructions Recorded Confirmed polyethylene glycol 3350 17 gram 17 g PO DAILY 08/19/22 06/13/23 oral powder packet (Miralax) lorazepam 1 mg tablet 1 mg PO BID PRN 11/02/22 06/13/23 ferrous sulfate 325 mg (65 mg 325 mg PO DAILY 11/08/22 06/13/23 iron) tablet melatonin 3 mg tablet 3 mg PO BEDTIME 03/22/23 06/13/23 aripiprazole 5 mg tablet 5 mg PO DAILY 06/13/23 06/13/23 potassium citrate 5 mEq (540 mg) 5 meq PO DAILY 06/13/23 06/13/23 tablet,extended release Previous Rx's Medication Instructions Recorded CPAP device and all related #1 ea 06/03/22 supplies cyanocobalamin (vitamin B-12) 500 500 mcg PO DAILY #30 tabs 06/03/22 mcg tablet docusate sodium 100 mg capsule 100 mg PO BID #60 caps 06/03/22 cholecalciferol (vitamin D3) 25 25 mcg PO DAILY 90 days #90 caps 08/24/22 mcg (1,000 unit) capsule (Vitamin D3) clotrimazole 1 % topical cream 1 appl topical BID #45 grams 09/08/22 albuterol sulfate 90 mcg/actuation 2 puff inhalation Q6H PRN 01/22/23 aerosol inhaler (ProAir HFA) shortness of breath or wheezing 30 days #8.5 grams estradiol 10 mcg vaginal tablet 10 mcg vaginal 2XW 28 days #8 tabs 02/07/23 (Yuvafem) diphenhydramine HCl 25 mg capsule 25 mg PO TID PRN allergy symptoms 04/10/23 (Banophen) #90 caps oxybutynin chloride 5 mg 5 mg PO DAILY 90 days #90 tabs 05/02/23 tablet,extended release 24 hr gabapentin 400 mg capsule 800 mg (2 x 400 mg) PO TID 30 days 05/04/23 #180 caps meclizine 25 mg tablet 25 mg PO TID PRN dizziness 30 days 05/30/23 #90 tabs midodrine 10 mg tablet 10 mg PO TID #30 tabs 05/30/23 rosuvastatin 5 mg tablet 5 mg PO DAILY 30 days #30 tabs 05/30/23 tramadol 50 mg tablet 100 mg (2 x 50 mg) PO Q8H PRN 05/30/23 severe pain 30 days #180 tabs linaclotide 145 mcg capsule 145 mcg PO DAILY #30 caps 06/21/23 (Linzess) nystatin 100,000 unit/mL oral 1 ml PO TID 10 days #30 mL 06/21/23 suspension Allergies Allergy/AdvReac Type Severity Reaction Status Date / Time acetaminophen AdvReac Unknown Unknown Verified 06/29/23 13:47 atorvastatin AdvReac Severe elevated Uncoded 06/29/23 13:47 liver enzymes [facility] Past Medical History Medical History Obesity (BMI 30-39.9) Renal cyst Diverticulosis Tubular adenoma Asthma Spondylosis of lumbar spine Sacroiliitis Dizziness of unknown etiology Chronic constipation Hx of schizophrenia Panic attacks PTSD (post-traumatic stress disorder) MIGUEL (obstructive sleep apnea) Dyspareunia Pyelonephritis Ingrown toenail Iron deficiency anemia Major depression, recurrent Anxiety Insomnia Tremor Orthostatic hypotension Incisional hernia without obstruction or gangrene Avascular necrosis of femoral head Bilateral carpal tunnel syndrome Peroneal neuropathy Lumbar degenerative disc disease Vitamin D deficiency GERD (gastroesophageal reflux disease) Migraine Hyperlipidemia Surgical History History of colonoscopy History of surgery Hx of cystoscopy History of bilateral breast reduction surgery History of hysterectomy History of cholecystectomy History of endoscopy (~06/2016) History of bladder repair surgery (~03/2015) S/P cystoscopy (~07/30/12) S/P panniculectomy History of hernia repair (~11/29/10) History of bladder surgery (~10/2009) History of gastric bypass (~2008) History of incisional hernia repair (~1999) Hx of umbilical hernia repair (~1999) H/O left nephrectomy S/P laparoscopic sleeve gastrectomy Family History Family History Father Liver cancer Mother Breast cancer Sister Lung cancer Other Mental health problem Social History Social History Household Members: Spouse and Family Housing: House Do you presently have visiting nurse or other home services: Yes Alcohol intake: never Patient Tobacco Use Status: Never used Tobacco e-Cigarette/Vaping Use: Never Used Second Hand Smoke Exposure: No Advance Directives: Yes Advance Directives on File: Yes Advance Directives Date on File: 07/12/21 service: No Current occupational status: disabled Sexual orientation: Straight/Heterosexual Cognitive needs: No Hearing needs: No Vision needs: Yes Physical Exam ED Vital Signs: Vital Signs - 24 hr 06/29/23 13:47 Pulse Rate 50 Respiratory Rate 18 Blood Pressure 121/70 Pulse Oximetry 99 Oxygen Delivery Method Room Air BMI result Body Mass Index 27.1 Const Other: I saw the patient when she first arrived. She was on the ambulance stretcher. Her eyes were closed. She did not respond to verbal stimuli. She seemed diffusely weak and only very minimally followed commands. HENMT Other: Face was symmetrical. The tongue was midline. Eyes Other: Pupils were round equal, lateral gaze was intact bilaterally. Neck Other: No JVD, the neck was supple. Resp Effort & Inspection: normal respiratory effort Auscultation: clear to auscultation bilaterally Cardio Rate: regular rate Rhythm: regular rhythm Heart sounds: S1 normal heart sound present and S2 normal heart sound present GI Other: Abdomen was soft and nontender Skin Other: Skin was dry and unremarkable Neuro Other: Initially the patient seemed almost unresponsive. She moaned in response to verbal stimuli and moves minimally in response to commands. However her movements were all symmetrical. She spoke very quietly but without dysarthria. She has not have any lateralizing findings. Later she was awake, alert, and appropriate. Cranial nerves were intact. She moved her extremities symmetrically. Extrem Other: No peripheral edema. No calf swelling or tenderness. Medications Administered Discontinued Medications Generic Name Dose Route Start Last Admin Trade Name Freq PRN Reason Stop Dose Admin Acetaminophen 975 mg 06/29/23 15:27 06/29/23 15:43 Acetaminophen 325 Mg Tablet PO 06/29/23 15:28 975 mg ONCE ONE Administration Lorazepam 1 mg 06/29/23 15:23 06/29/23 15:44 Lorazepam 1 Mg Tablet PO 06/29/23 15:24 1 mg ONCE ONE Administration Medical Decision Making Medical Decision Making [facility] Narrative: The patient is a 52-year-old with extensive psychiatric and medical problems who arrived by ambulance having complained of facial and generalized body numbness and tingling starting last night. This morning she seemed quite weak and her called 911. Paramedics said that when they found the patient. She seemed lethargic but did not seem to have any focal findings. After arriving in the emergency room they were concerned that she might have facial droop. I saw the patient promptly while still on the ambulance stretcher. I did not appreciate any facial asymmetry or any other focal neurological deficit or lateralizing finding. She seemed diffusely weak and I had an impression that there might be some volitional component to the patient's weakness. The patient's vital signs were unremarkable. A workup including a head CT, EKG, urinalysis, CBC, BMP, LFTs, VBG, BNP, troponin showed very little of concern. Her CBC was unremarkable. Venous blood gas showed a pH of 7.42, pCO2 23. Chemistries showed a mild metabolic acidosis with a carbon dioxide of 17. Her anion gap is normal at 14. BUN mildly elevated at 18. The patient's renal function is mildly abnormal. Her creatinine is 1.14. Her GFR today is 50. This is not very different from previous values. Her troponin is undetectable. Her CRP is normal at 0.10. Her BNP is mildly elevated at 128. The significance of this finding is uncertain. Urinalysis is normal. Urine tox screen is negative. ETOH is negative. Viral serologies negative for RSV, COVID, and influenza. Clinically the patient seemed to improve without specific treatment. I re-examined her quite some time after my initial evaluation on the ambulance stretcher. When I next evaluated her she was awake and alert with a normal mental status and an intact neurological exam. She was complaining of generalized body numbness. She was given a dose of acetaminophen and a dose of lorazepam. I again re-examined her sometime after that and she was feeling better and felt comfortable being discharged. The patient is renal function is somewhat chronically abnormal. She has only 1 kidney. I believe that the patient takes regular prescription naproxen. I advised her to avoid naproxen and other NSAIDs in the future. She was told to only use acetaminophen as needed for discomfort. Lab Data 06/29/23 14:23 06/29/23 14:23 Labs: Lab Results 06/29/23 06/29/23 06/29/23 Range/Units 14:23 14: 14:29 WBC 7.9 (4.8-10.8) X10*3/uL RBC 4.06 L (4.20-5.50) X10*6/uL Hgb 13.8 (12.0-16.0) g/dl Hct 39.7 (37.0-47.0) % MCV 97.8 (80.0-98.0) fL MCH 34.0 H (27.0-33.0) pg MCHC 34.8 (31.0-35.0) g/dl RDW 11.8 (11.0-16.0) % Plt Count 255 (160-400) X10*3/uL MPV 9.3 L (9.4-12.3) fL Immature Gran % (Auto) 0.3 (0.0-0.4) % Neut % (Auto) 68.6 (45-73) % Lymph % (Auto) 23.2 (20-40) % Cole % (Auto) 7.0 (2-11) % Eos % (Auto) 0.4 (0-4) % Baso % (Auto) 0.5 (0-2) % Lymph # (Auto) 1.8 (1.2-4.9) X10*3/uL Cole # (Auto) 0.6 (0.1-1.2) X10*3/uL Eos # (Auto) 0.0 (0.0-0.4) X10*3/uL Baso # (Auto) 0.0 (0.0-0.2) X10*3/uL Abs Immat Gran (auto) 0.02 (0.00-0.03) X10*3/uL Absolute Neuts (auto) 5.4 (2.0-8.3) x10*3/uL Absolute Nucleated RBC 0.000 (0.0-0.012) X10*3/uL Nucleated RBC % (auto) 0.0 (0.0-0.2) /100WBC PT 11.7 (11.1-13.3) SEC INR 1.0 (0.9-1.1) VBG pH 7.42 (7.32-7.43) VBG pCO2 23 mmHg VBG pO2 65 mmHg VBG HCO3 15 L (22-26) mmol/L VBG O2 Saturation 91.0 % VBG Base Excess -6.5 mmol/L Sodium 143 (135-145) mmol/L Potassium 3.6 (3.3-5.1) mmol/L Chloride 116 H (96-108) mmol/L Carbon Dioxide 17 L (22-29) mmol/L Anion Gap 14 (12-20) BUN 18 H (9-16) mg/dL Creatinine 1.14 (0.5-1.4) mg/dL Estim Creat Clear Calc 53.3 Estimated GFR 50 Random Glucose 103 (60-115) mg/dL Calcium 8.7 (8.4-10.2) mg/dL Magnesium 1.8 (1.6-2.6) mg/dL Total Bilirubin 0.5 (0.0-1.0) mg/dL Direct Bilirubin 0.2 (0.0-0.5) mg/dL AST 17 (5-31) U/L ALT 14 (0-31) U/L Alkaline Phosphatase 108 (39-117) U/L Troponin I High Sens < 2.7 (<3.5-17.0) ng/L C-Reactive Protein 0.10 (< or = 0.50) mg/dL B-Natriuretic Peptide 128 H (<100) pg/mL Total Protein 6.4 L (6.5-8.0) g/dL Albumin 3.6 (3.5-5.0) g/dL Beta HCG, Quant < 2 mIU/mL Urine Color Yellow Urine Appearance Cloudy Urine pH 8.0 (5.0-9.0) Ur Specific [place] 1.015 (1.005-1.025) Urine Protein Negative (Neg-Trace) mg/dL Urine Glucose (UA) Negative (Negative) mg/dL Urine Ketones 15 (Negative) mg/dL Urine Blood Negative (Negative) Urine Nitrite Negative (Negative) Ur Leukocyte Esterase Negative (Negative) Urine Opiates Screen Not Detected (Not Detect) Urine Fentanyl Screen Not Detected (Not Detect) Ur Barbiturates Screen Not Detected (Not Detect) Ur Phencyclidine Scrn Not Detected (Not Detect) Ur Amphetamines Screen Not Detected (Not Detect) U Benzodiazepines Scrn Not Detected (Not Detect) Urine Cocaine Screen Not Detected (Not Detect) U Marijuana (THC) Screen Not Detected (Not Detect) Ethyl Alcohol < 10 mg/dL Influenza Type A (PCR) NEGATIVE (Negative) Influenza Type B (PCR) NEGATIVE (Negative) RSV RNA Qual (PCR) NEGATIVE (Negative) SARS-CoV-2 RNA (RT-PCR) NEGATIVE (Negative) Discharge Plan Discharge Clinical Impression: Numbness and tingling, Weakness Patient Disposition: Home, Self-Care Additional Instructions: Your testing in the emergency room today is reassuring. No acutely dangerous process is apparent. Please plan on following up soon with your regular doctor to discuss this episode further. You have been prescribed naproxen in the past. At this point I would recommend against using naproxen in the future. Your kidney function is very mildly abnormal and naproxen can be hard on the kidneys. Return to the emergency room if you are significantly worse. Prescriptions: No Action (DME) CPAP device and all related supplies See Rx Instructions .Route .MEDSUPPLY Qty: 1 0RF Rx Instructions: As directed cholecalciferol (vitamin D3) [Vitamin D3] 25 mcg (1,000 unit) capsule 25 mcg PO DAILY 90 Days Qty: 90 3RF albuterol sulfate [ProAir HFA] 90 mcg/actuation HFA aerosol inhaler 2 puff inhalation Q6H PRN (Reason: shortness of breath or wheezing) 30 Days Qty: 8.5 5RF estradiol [Yuvafem] 10 mcg tablet 10 mcg vaginal 2XW 28 Days Qty: 8 6RF diphenhydramine HCl [Banophen] 25 mg capsule 25 mg PO TID PRN (Reason: allergy symptoms) Qty: 90 2RF oxybutynin chloride 5 mg tablet extended release 24hr 5 mg PO DAILY 90 Days Qty: 90 1RF gabapentin 400 mg capsule 800 mg PO TID 30 Days Qty: 180 0RF tramadol 50 mg tablet 100 mg PO Q8H PRN (Reason: severe pain) 30 Days Qty: 180 0RF cyanocobalamin (vitamin B-12) 500 mcg Tablet 500 mcg PO DAILY Qty: 30 0RF docusate sodium 100 mg Capsule 100 mg PO BID Qty: 60 0RF lorazepam 1 mg tablet 1 mg PO BID PRN meclizine 25 mg tablet 25 mg PO TID PRN (Reason: dizziness) 30 Days Qty: 90 1RF midodrine 10 mg tablet 10 mg PO TID Qty: 30 0RF Rx Instructions: do not give last dose of day after 6PM or within 4 hrs of bedtime rosuvastatin 5 mg tablet 5 mg PO DAILY 30 Days Qty: 30 3RF clotrimazole 1 % cream 1 appl topical BID Qty: 45 3RF polyethylene glycol 3350 [Miralax] 17 gram powder in packet 17 g PO DAILY melatonin 3 mg tablet 3 mg PO BEDTIME Linzess 145 mcg capsule 145 mcg PO DAILY Qty: 30 2RF nystatin 100,000 unit/mL suspension 1 ml PO TID 10 Days Qty: 30 0RF Rx Instructions: swish and swallow aripiprazole 5 mg tablet 5 mg PO DAILY ferrous sulfate 325 mg (65 mg iron) tablet 325 mg PO DAILY potassium citrate 5 mEq (540 mg) tablet extended release 5 meq PO DAILY Referrals: Hung Montelongo MD [Primary Care Provider] - (Episode of altered mental status, total body numbness)
[2023-06-29 14:30] LABS: MANUAL DIFF FLAG NO
[2023-06-29 14:32] LABS: Basophils Percent Auto 0.5 % (0-2); Eosinophils Percent Auto 0.4 % (0-4); Hematocrit 39.7 % (37.0-47.0); Hemoglobin 13.8 g/dl (12.0-16.0); Imm Gran Abs Auto 0.02 X10*3/uL (0.00-0.03); Imm Gran Pct Auto 0.3 % (0.0-0.4); Lymphocytes Absolute Auto 1.8 X10*3/uL (1.2-4.9); Lymphocytes Percent Auto 23.2 % (20-40); Mean Corpuscular HGB Conc 34.8 g/dl (31.0-35.0); Mean Corpuscular Volume 97.8 fL (80.0-98.0); Mean Platelet Volume 9.3 fL (9.4-12.3); Monocytes Absolute Auto 0.6 X10*3/uL (0.1-1.2); Neutrophils Absolute Auto 5.4 x10*3/uL (2.0-8.3); Neutrophils Percent Auto 68.6 % (45-73); Platelet Count 255 X10*3/uL (160-400); Red Blood Count 4.06 X10*6/uL (4.20-5.50); Red Cell Distribution Width 11.8 % (11.0-16.0); White Blood Count 7.9 X10*3/uL (4.8-10.8)
[2023-06-29 14:34] LABS: Venous Blood Gas Refer to POC result
[2023-06-29 14:34] LABS: VBG Base Excess -6.5 mmol/L; VBG HCO3 15 mmol/L (22-26); VBG pCO2 23 mmHg; VBG pH 7.42 (7.32-7.43); VBG pO2 65 mmHg
[2023-06-29 14:41] LABS: Prothrombin Time 11.7 SEC (11.1-13.3)
[2023-06-29 14:50] LABS: Amphetamine Screen Urine Not Detected (Not Detect); Barbiturates, Urine Not Detected (Not Detect); Benzodiazepines Screen Urine Not Detected (Not Detect); Cannabinoid Screen Urine Not Detected (Not Detect); Cocaine Screen Urine Not Detected (Not Detect); Fentanyl, urine Not Detected (Not Detect); Opiate Screen Urine Not Detected (Not Detect); Phencyclidine Screen Urine Not Detected (Not Detect)
[2023-06-29 14:52] LABS: B Type Natriuretic Peptide 128 pg/mL (<100)
[2023-06-29 14:54] LABS: Troponin-I High Sensitivity < 2.7 ng/L (<3.5-17.0)
[2023-06-29 14:55] LABS: Alanine Aminotransferase 14 U/L (0-31); Albumin Level 3.6 g/dL (3.5-5.0); Alkaline Phosphatase 108 U/L (39-117); Anion Gap 14 (12-20); Aspartate Amino Transferase 17 U/L (5-31); Bilirubin Direct 0.2 mg/dL (0.0-0.5); Bilirubin Total 0.5 mg/dL (0.0-1.0); Blood Urea Nitrogen 18 mg/dL (9-16); Calcium 8.7 mg/dL (8.4-10.2); Carbon Dioxide 17 mmol/L (22-29); Chloride 116 mmol/L (96-108); Creatinine Clr Calc Pharmacy 53.3; Estimated Glomerular Filt Rate 50; Ethanol < 10 mg/dL; Glucose Random 103 mg/dL (60-115); HCG Quantitative < 2 mIU/mL; Magnesium 1.8 mg/dL (1.6-2.6); Potassium 3.6 mmol/L (3.3-5.1); Sodium 143 mmol/L (135-145); Total Protein 6.4 g/dL (6.5-8.0)
[2023-06-29 15:00] LABS: Appearance Urine Cloudy; Color Urine Yellow; Glucose Urine UA Negative (Negative); Leukocyte Esterase Urine Negative (Negative); Nitrite Urine Negative (Negative); Specific Gravity - Urine 1.015 (1.005-1.025); Urine Blood Negative (Negative); Urine Ketones 15 mg/dL (Negative); Urine Protein Negative (Neg-Trace)
[2023-06-29] MEDS: Acetaminophen 325 MG TABLET 975 MG PO (15:43)
[2023-06-29] MEDS: LORazepam 1 MG TABLET PO (15:44)
[2023-06-29 15:47] LABS: Influenza A PCR NEGATIVE (Negative); Influenza B PCR NEGATIVE (Negative); Resp Syncy Virus RNA Qual PCR NEGATIVE (Negative); SARS COV2 PCR INHOUSE NEGATIVE (Negative)
[2023-06-29 16:00] VITALS: BP 122/74; PULSE 52; RESP 16; TEMP 36.7; O2SAT 96
== END 2023-06-29 17:26 | disposition home or self-care (01) ==
PROVIDERS: Emergency Provider Emergency Medicine; PCP Internal Medicine
DX: R20.0 Anesthesia of skin (principal); R41.82 Altered mental status, unspecified; F29 Unspecified psychosis not due to a substance or known physiological condition; R00.1 Bradycardia, unspecified; F33.1 Major depressive disorder, recurrent, moderate; R06.02 Shortness of breath; Z11.52 Encounter for screening for COVID-19; Z20.822 Contact with and (suspected) exposure to COVID-19; Z79.899 Other long term (current) drug therapy
CPT/HCPCS: 0241U; 70450; 80048; 80076; 80307; 81003; 82803; 83735; 83880; 84484; 84702; 85025; 85610; 86140; 93005; 99284

== ENCOUNTER → 2023-06-29 13:30 | Outpatient (BNV) | payer OTHER, SELFPAY | PROVIDERS: Emergency Provider Emergency Medicine; PCP Internal Medicine; Visit Provider Internal Medicine | DX: R00.1 Bradycardia, unspecified (principal) | CPT/HCPCS: 93010 ==

== ENCOUNTER → 2023-07-11 12:29 | Outpatient (REF) | payer OTHER, SELFPAY ==
--- NOTE | 2023-07-11 12:37 | HM_ITS ---
Cardiac event monitor Indication: Dizziness and giddiness Technique: Patient was hooked up to cardiac event monitor on 07/11/2023 for total period of 30 days with compliance rate of about 96%. 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 Peak heart rate of 131 beats per minute in his sinus tachycardia. There were no significant pauses noted. There were 2 brief episodes of PSVT noted. Rare PACs and PVCs noted. Patient reported total of 9 events where to were marked on the device which correlated with sinus tachycardia with no associated symptoms reported. Conclusion: 1. Baseline was normal sinus rhythm with no significant pauses 2. Rare PACs and PVCs noted with 2 short episodes PSVT noted 3. Patient reported 9 events, 2 of which were marked correlated with sinus tachycardia MTDD
--- NOTE | 2023-07-11 12:37 | CA_ITS ---
Transthoracic Echocardiogram Patient (Last, First, Middle): Xenia Graves E Gender: Female Date of : 1970 Age: 52 Procedure Date: 07/11/2023 Procedure Type: Transthoracic Echocardiogram Location: OP Height: 160.02 cm Weight: 68.95 kg BSA: 1.72 m2 Heart Rate: bpm BP: 110 / 70 mmHg Video Library Assistant: TO Referring MD: Anderson Vargas MD Reticle Printer: Anderson Vargas MD Symptoms: R42 - Dizziness and giddiness Study Quality: Fair/Contrast ECG Rhythm: Sinus Conclusions: - Essentially normal study Findings Procedure Information Contrast agent, definity, is being given per protocol without apparent complications. Left Ventricle Normal left ventricular size, thickness, and systolic function. The visually estimated ejection fraction is between 60-65%. Spectral Doppler is indicative of a normal filling pattern. Right Ventricle Normal right ventricular cavity size and systolic function. Atria Both atria are normal in size. There is no evidence of interatrial shunt. Aortic Valve Normal aortic valve structure and function. There is no aortic valve stenosis. There is no aortic valve regurgitation. Mitral Valve Normal mitral valve structure and function. There is trace mitral valve regurgitation. There is no mitral valve stenosis. Pulmonic Valve The pulmonic valve is likely normal. Tricuspid Valve Normal tricuspid valve structure. There is trace tricuspid valve regurgitation. The right ventricular systolic pressure is normal. The right ventricular systolic pressure is 19 mmHg. Normal right atrial pressure. There is no evidence of pulmonary hypertension. Great Vessels All visible segments of the aorta are normal in size. The pulmonary artery was not well visualized. There is no dilatation of the ascending aorta measuring 3.10 cm. Venous The inferior vena cava is normal in size and collapses greater than 50% with inspiration. Pericardium/Pleural There is no evidence of pericardial effusion. Measurements 2D Linear Measurements IVSd: 1.08 0.6-0.9/0.6-1.0 cm LVIDd: 4.32 3.9-5.3/4.2-5.9 cm LVIDd Index: 2.51 2.4-3.2/2.2-3.1 cm/m2 LVIDs: 2.40 2.0-3.6 cm LVPWd: 0.95 0.7-1.1 cm LA Diam: 3.80 2.7-3.8/3.0-4.0 cm LAIDs Index: 2.21 1.5-2.3 cm/m2 LV Mass: 182.57 67-162/88-224 g LV Mass Index: 106.14 43-95/49-115 g/m2 LVOT Diam: 2.00 3.0+(-)1.3 cm 2D Systolic Function EF 4C: 65.00 >55% EF 2C: 66.20 >55% EF BiP: 65.70 >55% Mitral Valve MV Pk E: 0.66 MV PK A: 0.48 MV Decel Time: 228.00 E/A: 1.40 E'Lateral: 10.20 E'Medial: 7.62 E/E' Med: 8.60 E/E' Lat: 6.40 PHT: 67.00 MVA PHT: 3.28 Decel [place]: 2.87 Aortic Valve AoV Pk Oscar: 1.21 AoV Mn Oscar: 0.72 AoV VTI: 0.27 AoV Pk Grad: 6.00 Aov Mn Grad: 3.00 DREW Cont.VTI: 2.31 LVOT LVOT Pk Oscar: 0.89 LVOT Mn Oscar: 0.55 LVOT VTI: 0.20 LVOT Pk Grad: 3.00 LVOT Mn Grad: 1.00 LVOT Diam: 2.00 LVOT Area: 3.14 Diastolic Function MV Pk E: 0.66 MV Pk A: 0.48 E/A: 1.40 E'Medial: 7.62 E/E' Med: 8.60 E' Laterial: 10.20 E/E' Lat: 6.40 Tricuspid Valve TR Pk Oscar: 2.00 TR Pk Grad: 16.00 RA Press: 3.00 RVSP: 19.00 Great Vessels Aorta Ao Asc: 3.10 2.1-3.4 cm Updated in Other Vendor System with Status of Final Anderson Vargas MD electronically signed on 07/12/2023 4:18:08 PM with status of Final
== END ==
LOC: HO.CARD 12:29
PROVIDERS: PCP Internal Medicine; Visit Provider Internal Medicine Cardiovascular Disease
DX: R42 Dizziness and giddiness (principal)
CPT/HCPCS: 93270; 93306; Q9957

== ENCOUNTER → 2023-07-11 12:37 | Outpatient (BNV) | payer OTHER, SELFPAY | PROVIDERS: PCP Internal Medicine; Visit Provider Internal Medicine Cardiovascular Disease | DX: R00.0 Tachycardia, unspecified (principal); I49.1 Atrial premature depolarization; I49.3 Ventricular premature depolarization | CPT/HCPCS: 93272; 93306 ==

== ENCOUNTER 2023-07-14 15:35 | Outpatient (AMB) | payer OTHER, SELFPAY ==
--- NOTE | 2023-07-14 15:36 | A.OFFPC_ITS ---
Vital Signs 07/14/23 15:39 Height 5 ft 2.5 in Weight 152 lb 6 oz BMI 27.4 BP 118/60 Blood Pressure Location Lt brachial Position Sitting Pulse 72 Pulse Source Pulse Oximeter Pulse Oximetry (%) 96 Oxygen Delivery Method Room Air Intake Visit Reasons: [facility] [place] Numbness all over body/referral Intake Note: Patient is here to follow-up after a visit the emergency department at [facility] on 06/29/23. Athletic Scout Required: Yes Athletic Scout Language: Linoleum Installer Name: Giovani Ramirez ([id number]) Information Interpreted: non-clinical & clinical Encoding Clerk: Not Required per policy Accompanied by: Self / Same As Patient Allergies acetaminophen Adverse Reaction (Unknown, Verified 07/14/23 16:02) Unknown atorvastatin Adverse Reaction (Severe, Uncoded 07/14/23 16:02) elevated liver enzymes Medication List - Last Reconciled 07/14/23 by Hung Montelongo MD albuterol sulfate 90 mcg/actuation (ProAir HFA) 2 puffs inhalation Q6H PRN 30 days aripiprazole 5 mg PO DAILY blood pressure monitor As directed cholecalciferol (vitamin D3) (Vitamin D3) 25 mcg PO DAILY 90 days clotrimazole 1% 1 appl topical BID [CPAP device and all related supplies As directed] cyanocobalamin (vitamin B-12) 500 mcg PO DAILY diphenhydramine HCl (Banophen) 25 mg PO TID PRN docusate sodium 100 mg PO BID estradiol (Yuvafem) 10 mcg vaginal 2XW 28 days ferrous sulfate 325 mg PO DAILY gabapentin 800 mg (2 x 400 mg) PO TID 30 days linaclotide (Linzess) 145 mcg PO DAILY lorazepam 1 mg PO BID PRN meclizine 25 mg PO TID PRN 30 days melatonin 5 mg PO BEDTIME PRN midodrine 10 mg PO TID nystatin 1 mL PO TID 10 days oxybutynin chloride ER 5 mg PO DAILY 90 days polyethylene glycol 3350 (Miralax) 17 grams PO DAILY potassium citrate ER 5 mEq PO DAILY rosuvastatin 5 mg PO DAILY 30 days tramadol 100 mg (2 x 50 mg) PO Q8H PRN 30 days Tobacco use date assessed: 07/14/23 Dental Screening Dental Screen Date: 07/14/23 Did you have a dental visit in the last 12 months?: Yes Did you have a dental problem in the last 6 months where you did not have access to dental care?: No Was dental information given to patient?: Patient has dentist HPI [facility] [place] Numbness all over body/referral HPI Details Patient comes in today for her HDF follow up visit She was brought to the ER by ambulance a couple of weeks ago on 06/29/2023 when her family called 911 after they noticed increased lethargy and patient appeared unresponsive when they were calling out to her Patient has apparently been experiencing increased numbness and tingling sensation that she claims affected her entire body from head to toe since the night before Physical exam and labs done at the ER all came back negative Her head CT done also came back with no acute findings Her symptoms seem to have gradually improved after she was observed in the ER for a while; she was also given some Lorazepam at one point that she felt helped with her symptoms She was also advised to stop taking Naproxen and all NSAIDs when her labs showed findings of renal insufficiency Patient states that she currently still has the sensation of on and off generalized numbness and tingling sensation She denies any increased headaches but still reports (+) on and off dizziness Denies any chest pains, no increased SOB (+) recurrent nausea but she denies any vomiting, no abdominal pain No change in bowel habits noted [facility] Medical History (Updated 07/17/23 @ 01:47 by Hung Montelongo MD) Chronic kidney disease, stage III (moderate) Obesity (BMI 30-39.9) Renal cyst Diverticulosis Tubular adenoma Asthma Spondylosis of lumbar spine Sacroiliitis Dizziness of unknown etiology Chronic constipation Hx of schizophrenia Panic attacks PTSD (post-traumatic stress disorder) MIGUEL (obstructive sleep apnea) Dyspareunia Pyelonephritis Ingrown toenail Iron deficiency anemia Major depression, recurrent Anxiety Insomnia Tremor Orthostatic hypotension Incisional hernia without obstruction or gangrene Avascular necrosis of femoral head Bilateral carpal tunnel syndrome Peroneal neuropathy Lumbar degenerative disc disease Vitamin D deficiency GERD (gastroesophageal reflux disease) Migraine Hyperlipidemia Surgical History History of left nephrectomy (~1999) History of colonoscopy History of surgery Hx of cystoscopy History of bilateral breast reduction surgery History of hysterectomy History of cholecystectomy History of endoscopy (~06/2016) History of bladder repair surgery (~03/2015) S/P cystoscopy (~07/30/12) S/P panniculectomy History of hernia repair (~03/29/10) History of bladder surgery (~10/2009) History of gastric bypass (~2008) History of incisional hernia repair (~1999) Hx of umbilical hernia repair (~1999) H/O left nephrectomy S/P laparoscopic sleeve gastrectomy Family History Father Liver cancer Mother Breast cancer Sister Lung cancer Other Mental health problem Social History Household Members: Spouse and Family Housing: House Do you presently have visiting nurse or other home services: Yes Alcohol intake: never Patient Tobacco Use Status: Never used Tobacco e-Cigarette/Vaping Use: Never Used Second Hand Smoke Exposure: No Advance Directives Date on File: 07/12/21 service: No Current occupational status: disabled Sexual orientation: Straight/Heterosexual Cognitive needs: No Hearing needs: No Vision needs: Yes Female Reproductive History Menstrual Age of Menarche: 13 Questionnaire PHQ-9 Over the last 2 weeks, how often have you been bothered by any of the following problems? Depression Screening Interpretation: Positive Depression Screening Follow-up: Existing condition and In treatment Depression Screening Done: Yes Source: Developed by Drs. Vincenzo Mayo, Angel Oneil and colleagues, with an educational juan antonio from [employer]. Thrive Questionnaire Date Thrive assessed: 05/30/23 Currently or been in a relationship where the following occur: no concerns reported THRIVE Score: 0 JAMIE-7 AMB Questionnaire JAMIE-7 Date JAMIE - 7 assessed: 05/30/23 Source: Developed by Drs. Vincenzo Mayo, Angel Oneil and colleagues, with an educational juan antonio from [employer]. Review of Systems Const Denies chills, Reports difficulty sleeping, Reports fatigue, Denies fever(s) and Denies headache(s) ENT Denies dysphagia, Reports dizziness (on and off), Denies otalgia, Denies headache(s), Denies neck pain, Denies odynophagia and Denies sore throat Card Denies chest pain, Denies palpitations and Denies dyspnea Resp Denies cough, Denies dyspnea and Denies wheezing GI Reports abdominal pain (on and off over the right upper quadrant and upper abdomen), Reports constipation (chronic - better controlled lately), Denies dysphagia, Denies heartburn, Denies diarrhea, Reports nausea (on and off), Denies odynophagia and Denies vomiting Denies nocturia, Denies dysuria and Denies urinary urgency Musc Reports back pain (over the lower back - chronic), Reports arthralgias (involving multiple joints), Denies neck pain, Reports numbness (generalized, on and off) and Reports tingling (on and off, generalized) Skin/Breast Denies rash Neuro Reports dizziness (on and off), Denies headache(s), Reports memory loss, Reports numbness (generalized, on and off) and Reports tingling (on and off, generalized) Psych Denies anxiety, Reports depression and Reports memory loss Endo Reports fatigue and Denies palpitations Aller/Immun Denies wheezing Physical exam (Primary Care) Vital Signs: Last Vital Signs Pulse 72 07/14/23 15:39 BP 118/60 07/14/23 15:39 Pulse Ox 96 07/14/23 15:39 Oxygen Delivery Method Room Air 07/14/23 15:39 BMI result Body Mass Index 27.4 Tobacco/Smoking Status: Tobacco use Status Tobacco use date assessed 07/14/23 07/14/23 15:48 Patient Tobacco Use Status Never used Tobacco 07/14/23 15:48 e-Cigarette/Vaping Use Never Used 07/14/23 15:48 Depression Screening Interpretation: Positive Depression Screening Follow-up: Existing condition and In treatment Thrive Assessment: Date of Thrive Assessment Date Thrive assessed 05/30/23 07/14/23 15:48 Currently or been in a relationship where the following occur: no concerns reported Const General: no acute distress and alert HENMT Ears: TM's normal bilaterally and EAC's normal Throat: Yes posterior oropharynx normal and Yes tonsils normal Neck Neck: Yes no lymphadenopathy and Yes supple Thyroid: Thyroid normal Resp Auscultation: clear to auscultation bilaterally, no rales and no wheezes Cardio Rate: regular rate Rhythm: regular rhythm Heart sounds: no murmurs GI Palpation (GI): Soft to palpation, Tenderness to palpation present (GI) (mild) in the epigastrum and in the RUQ, no guarding and No Rebound tenderness present Back/Spine/Pelvis Thoracic/Lumbar Spine: paraspinal muscle tenderness (over the lumbar region) on the right greater than left and lumbar spinal tenderness Skin Rashes: no rashes Extrem General: Yes no clubbing, cyanosis or edema Assessment and Plan Assessment & Plan (1) Paresthesia: Code(s): R20.2 - Paresthesia of skin Plan: She is advised that her recent work ups done in the ER, including her labs and head CT, all came back unrevealing Discussed that this may also be related to her anxiety as she did feel better after spending some time in the ER and when she was given some Lorazepam Is also advised that these may be due to her neuropathy May need to see neurology for further evaluation and management if her symptoms persist or get worse (2) Chronic kidney disease, stage III (moderate): Code(s): N18.30 - Chronic kidney disease, stage 3 unspecified Qualifiers: Chronic kidney disease stage 3 subtype: stage 3a (GFR 45-59) Qualified Code(s): N18.31 - Chronic kidney disease, stage 3a Plan: S/P total left nephrectomy sometime in 1999 - patient recalls that the surgery was done due to some kidney stones obstructing her left kidney Follow up with nephrology as scheduled (3) MIGUEL (obstructive sleep apnea): Comment: mild degree of sleep apnea. The AHI was 5/hr and oxygen mitul was 81%. Code(s): G47.33 - Obstructive sleep apnea (adult) (pediatric) Plan: Continue using her CPAP device when sleeping at night daily Follow up with Sleep Medicine as scheduled (4) GERD (gastroesophageal reflux disease): Code(s): K21.9 - Gastro-esophageal reflux disease without esophagitis Qualifiers: Esophagitis presence: without esophagitis Qualified Code(s): K21.9 - Gastro-esophageal reflux disease without esophagitis Plan: Dietary restrictions reinforced (5) Lumbar degenerative disc disease: Code(s): M51.36 - Other intervertebral disc degeneration, lumbar region Plan: Reinforced activity and weight lifting restrictions Continue Gabapentin 800 mg TID and Tramadol 50 mg 1-2 tablets Q 8 hours as needed She underwent physical therapy last year without any significant relief/improvement Was seen by [facility] Pain Management and had a diagnostic SI joint injection under f luoroscopic guidance back in September 2021 and started seeing them again recently; has been scheduled for bilateral therapeutic sacroiliac joint injection under sedation Follow up with [facility] Pain Management as scheduled (6) Arthralgia: Code(s): M25.50 - Pain in unspecified joint Qualifiers: Joint pain location: other joint Qualified Code(s): M25.59 - Pain in other specified joint Plan: Involving multiple joints, especially over both hips, both elbows and both knees lately X-rays of the knees done back in August 2021 revealed (+) mild OA changes in both knees; hip and elbow x-rays came out normal (7) Orthostatic hypotension: Code(s): I95.1 - Orthostatic hypotension Plan: Continue Midodrine 10 mg TID Follow up with cardiology as scheduled (8) Migraine: Code(s): G43.909 - Migraine, unspecified, not intractable, without status migrainosus Qualifiers: Migraine type: unspecified Status migrainosus presence: without status migrainosus Intractability: not intractable Qualified Code(s): G43.909 - Migraine, unspecified, not intractable, without status migrainosus Plan: Stable lately Continue Sumatriptan 50 mg PRN (9) Memory impairment: Code(s): R41.3 - Other amnesia Plan: Was referred to and seen by neurology - advised that her memory issues are multifactorial although she was diagnosed with frontotemporal lobe degeneration and dementia as well Follow up with neurology as scheduled Plan To return as scheduled next month for her annual physical examination Coding Level of Care Code Est Pt Level 3 (33923) Diagnoses Paresthesia R20.2 Stage 3a chronic kidney disease N18.31 Chronic kidney disease stage 3 subtype: stage 3a (GFR 45-59) MIGUEL (obstructive sleep apnea) G47.33 Gastroesophageal reflux disease without esophagitis K21.9 Esophagitis presence: without esophagitis Lumbar degenerative disc disease M51.36 Pain in other joint M25.59 Joint pain location: other joint Orthostatic hypotension I95.1 Migraine without status migrainosus, not intractable, unspecified migraine type G43.909 Migraine type: unspecified Status migrainosus presence: without status migrainosus Intractability: not intractable Memory impairment R41.3
[2023-07-14 15:39] VITALS: BP 118/60; PULSE 72; O2SAT 96; BMI 27.4
== END 2023-07-14 16:30 | disposition home or self-care (01) ==
PROVIDERS: PCP Internal Medicine; Visit Provider Internal Medicine
DX: R20.2 Paresthesia of skin (principal); N18.31 Chronic kidney disease, stage 3a; G47.33 Obstructive sleep apnea (adult) (pediatric); K21.9 Gastro-esophageal reflux disease without esophagitis; M51.36 Other intervertebral disc degeneration, lumbar region; M25.59 Pain in other specified joint; I95.1 Orthostatic hypotension; G43.909 Migraine, unspecified, not intractable, without status migrainosus; R41.3 Other amnesia
CPT/HCPCS: 99213

== ENCOUNTER 2023-07-18 10:27 | Outpatient (AMB) | payer OTHER, SELFPAY ==
--- NOTE | 2023-07-18 10:36 | A.OFFVIS_ITS ---
Intake VS Expanded 07/18/23 10:45 BP 129/69 Blood Pressure Location Rt brachial Blood Pressure Position Sitting Pulse 73 Pulse Source Pulse Oximeter Temp 96.9 F Temperature Source Tympanic Pulse Oximetry 96 Oxygen Delivery Method Room Air Height 5 ft 2.5 in Weight 147 lb 3.2 oz BMI 26.5 Body Fat % 36.7 Body Fat Mass 54.0 Fat Free Mass 93.0 Visceral Fat Rating 8.0 Body Water % 44.8 Body Water Mass 66.0 Muscle Mass/Score 88.2 Basal Metabolic Rate/Score 1,281 Intake Visit Reasons: (OV) PO LRYGB 06/16/16 Allergies acetaminophen Adverse Reaction (Unknown, Verified 07/18/23 10:49) Unknown atorvastatin Adverse Reaction (Severe, Uncoded 07/18/23 10:49) elevated liver enzymes Medication List - Last Reconciled 07/18/23 by CJ Cheng albuterol sulfate 90 mcg/actuation (ProAir HFA) 2 puffs inhalation Q6H PRN 30 days aripiprazole 5 mg PO DAILY blood pressure monitor As directed cholecalciferol (vitamin D3) (Vitamin D3) 25 mcg PO DAILY 90 days clotrimazole 1% 1 appl topical BID [CPAP device and all related supplies As directed] cyanocobalamin (vitamin B-12) 500 mcg PO DAILY diphenhydramine HCl (Banophen) 25 mg PO TID PRN docusate sodium 100 mg PO BID estradiol (Yuvafem) 10 mcg vaginal 2XW 28 days ferrous sulfate 325 mg PO DAILY gabapentin 800 mg (2 x 400 mg) PO TID 30 days linaclotide (Linzess) 145 mcg PO DAILY lorazepam 1 mg PO BID PRN meclizine 25 mg PO TID PRN 30 days melatonin 5 mg PO BEDTIME PRN midodrine 10 mg PO TID nystatin 1 mL PO TID 10 days oxybutynin chloride ER 5 mg PO DAILY 90 days polyethylene glycol 3350 (Miralax) 17 grams PO DAILY potassium citrate ER 5 mEq PO DAILY rosuvastatin 5 mg PO DAILY 30 days tramadol 100 mg (2 x 50 mg) PO Q8H PRN 30 days HPI HPI Comments History of Present Illness Details This?is a?52?yo female who is s/p RYGB 06/16/2016. Weight loss of 5.5lbs since last recorded weight 3 months ago. No complaints of nausea, vomiting, abdominal pain. She continues to have some discomfort due to skin rubbing in lower abdomen. She thinks it is larger. She again asks about skin removal surgery. She requested today's visit to be scheduled. Present meal plan includes: 1 scoop Pure Protein in 8oz 1% milk- 33g Pure Protein bar- 20g- OR has been having fish for lunch, perhaps 3oz, with salad Dinner of 3oz protein (21g)- has been having salad and salmon or chicken or beef will drink water and zero calorie flavor enhancer Goal of 70g/day. Exercise routine includes: recommended Sit and Be Fit or MM videos, trying to do 3x/week has been doing some Kushal classes leg weakness has improved, has been walking on treadmill [facility] Medical History (Updated 07/17/23 @ 01:47 by Hung Montelongo MD) Chronic kidney disease, stage III (moderate) Obesity (BMI 30-39.9) Renal cyst Diverticulosis Tubular adenoma Asthma Spondylosis of lumbar spine Sacroiliitis Dizziness of unknown etiology Chronic constipation Hx of schizophrenia Panic attacks PTSD (post-traumatic stress disorder) MIGUEL (obstructive sleep apnea) Dyspareunia Pyelonephritis Ingrown toenail Iron deficiency anemia Major depression, recurrent Anxiety Insomnia Tremor Orthostatic hypotension Incisional hernia without obstruction or gangrene Avascular necrosis of femoral head Bilateral carpal tunnel syndrome Peroneal neuropathy Lumbar degenerative disc disease Vitamin D deficiency GERD (gastroesophageal reflux disease) Migraine Hyperlipidemia Surgical History History of left nephrectomy (~1999) History of colonoscopy History of surgery Hx of cystoscopy History of bilateral breast reduction surgery History of hysterectomy History of cholecystectomy History of endoscopy (~06/2016) History of bladder repair surgery (~03/2015) S/P cystoscopy (~07/30/12) S/P panniculectomy History of hernia repair (~03/29/10) History of bladder surgery (~10/2009) History of gastric bypass (~2008) History of incisional hernia repair (~1999) Hx of umbilical hernia repair (~1999) H/O left nephrectomy S/P laparoscopic sleeve gastrectomy Family History Father Liver cancer Mother Breast cancer Sister Lung cancer Other Mental health problem Social History Household Members: Spouse and Family Housing: House Do you presently have visiting nurse or other home services: Yes Alcohol intake: never Patient Tobacco Use Status: Never used Tobacco e-Cigarette/Vaping Use: Never Used Second Hand Smoke Exposure: No Advance Directives Date on File: 07/12/21 service: No Current occupational status: disabled Sexual orientation: Straight/Heterosexual Cognitive needs: No Hearing needs: No Vision needs: Yes Female Reproductive History Menstrual Age of Menarche: 13 Assessment & Plan Assessment & Plan (1) Overweight (BMI 25.0-29.9): Code(s): E66.3 - Overweight (2) History of gastric bypass: Onset Date: ~2008 Comment: revision of GBP Jun 2016 Code(s): Z98.84 - Bariatric surgery status Plan Will investigate other plastic surgery options for pt. Her insurance seems to have changed recently so will try to find a provider in her network. Continue same meal plan. Pt recently had bloodwork done, vitamin labs still need to be drawn. RTC 1 year or sooner for any new issues. Patient is overweight and is not considered stable at this time. I spent a total of 30 minutes reviewing/updating records, examining the patient and counseling the patient on weight management as detailed above. Coding Level of Care Code Est Pt Level 4 (55550) Diagnoses Overweight (BMI 25.0-29.9) E66.3 History of gastric bypass Z98.84
[2023-07-18 10:45] VITALS: BP 129/69; PULSE 73; TEMP 36.1; O2SAT 96; BMI 26.5
== END 2023-07-18 11:05 | disposition home or self-care (01) ==
PROVIDERS: PCP Internal Medicine; Visit Provider Physician Assistant Surgical
DX: E66.3 Overweight (principal); Z68.25 Body mass index [BMI] 25.0-25.9, adult; Z98.84 Bariatric surgery status
CPT/HCPCS: 99214

== ENCOUNTER → 2023-07-18 10:27 | Outpatient (BNVA) | payer OTHER, SELFPAY | PROVIDERS: PCP Internal Medicine; Visit Provider Physician Assistant Surgical | DX: Z98.84 Bariatric surgery status (principal); E66.3 Overweight; Z68.26 Body mass index [BMI] 26.0-26.9, adult | CPT/HCPCS: 99212 ==

== ENCOUNTER 2023-07-26 11:24 | Outpatient (AMB) | payer OTHER, SELFPAY ==
--- NOTE | 2023-07-26 11:26 | MHC.OFFVIS ---
Intake Vital Signs 07/26/23 11:27 Height 5 ft 2 in Weight 142 lb BMI 26.0 BP 112/57 L Blood Pressure Location Lt brachial Position Sitting Pulse 73 Pulse Source Pulse Oximeter Pulse Oximetry (%) 99 Oxygen Delivery Method Room Air Intake Visit Reasons: 5 week follow up gerd, cic Intake Note: pt here for 5 weeks follow up gerd, pt reports still abdominal pain, dizziness and nausea, no vomiting Keying Machine Operator Required: Yes Keying Machine Operator Language: Swedish Information Interpreted: non-clinical & clinical Accompanied by: Self / Same As Patient Allergies acetaminophen Adverse Reaction (Unknown, Verified 07/26/23 11:30) Unknown atorvastatin Adverse Reaction (Severe, Uncoded 07/26/23 11:30) elevated liver enzymes HPI 5 week follow up gerd, cic HPI Details LAST VISIT Constipation Diverticulosis GERD (gastroesophageal reflux disease) Transaminitis Plan Will start patient on Linzess. Patient was encouraged to increase fluid intake and activity to promote better bowel motility. Continue taking stool softeners at night time. Will send her script for nystatin swish and swallow. Direction on how to take it given to patient and her daughter. I will see patient in 5 weeks, sooner on as needed basis. Patient is agreeable to this plan and verbalizes understanding of instructions. She was given the opportunity to ask questions and all questions answered. ? Thank for allowing me to participate in her care Medications New nystatin swish and swallow 1 mL PO TID 10 days 30 mL 0RF linaclotide (Linzess) 145 mcg PO DAILY 30 caps 2RF TODAY'S VISIT Patient is here today for follow-up. Patient reports that she is taking Linzess and is able to move her bowels. Patient continues to have postprandial epigastric discomfort with dyspepsia without dysphagia or odynophagia. Patient reports that occasionally in the morning she will wake up feeling nauseous. Patient states that she feels like she empties her bowels patient reports that oral thrush went away after using nystatin swish and swallow. Patient denies any diarrhea. Denies melena, hematochezia, unintentional weight loss or ribbon like stools. Colonoscopy will be due in June of 2024. [facility] Medical History Chronic kidney disease, stage III (moderate) Obesity (BMI 30-39.9) Renal cyst Diverticulosis Tubular adenoma Asthma Spondylosis of lumbar spine Sacroiliitis Dizziness of unknown etiology Chronic constipation Hx of schizophrenia Panic attacks PTSD (post-traumatic stress disorder) MIGUEL (obstructive sleep apnea) Dyspareunia Pyelonephritis Ingrown toenail Iron deficiency anemia Major depression, recurrent Anxiety Insomnia Tremor Orthostatic hypotension Incisional hernia without obstruction or gangrene Avascular necrosis of femoral head Bilateral carpal tunnel syndrome Peroneal neuropathy Lumbar degenerative disc disease Vitamin D deficiency GERD (gastroesophageal reflux disease) Migraine Hyperlipidemia Surgical History History of left nephrectomy (~1999) History of colonoscopy History of surgery Hx of cystoscopy History of bilateral breast reduction surgery History of hysterectomy History of cholecystectomy History of endoscopy (~06/2016) History of bladder repair surgery (~03/2015) S/P cystoscopy (~07/30/12) S/P panniculectomy History of hernia repair (~03/29/10) History of bladder surgery (~10/2009) History of gastric bypass (~2008) History of incisional hernia repair (~1999) Hx of umbilical hernia repair (~1999) H/O left nephrectomy S/P laparoscopic sleeve gastrectomy Family History Father Liver cancer Mother Breast cancer Sister Lung cancer Other Mental health problem Social History Household Members: Spouse and Family Housing: House Do you presently have visiting nurse or other home services: Yes Alcohol intake: never Patient Tobacco Use Status: Never used Tobacco e-Cigarette/Vaping Use: Never Used Second Hand Smoke Exposure: No Advance Directives Date on File: 07/12/21 service: No Current occupational status: disabled Sexual orientation: Straight/Heterosexual Cognitive needs: No Hearing needs: No Vision needs: Yes Female Reproductive History Menstrual Age of Menarche: 13 Review of Systems Const Denies weight gain and Denies weight loss ENT Reports no additional complaints, Denies dysphagia and Denies odynophagia Card Reports no additional complaints Resp Reports no additional complaints GI Reports abdominal pain (Epigastric), Denies belching, Denies melena, Reports bloating, Denies change in bowel habits, Denies dysphagia, Denies excessive flatus, Reports dyspepsia, Reports heartburn, Denies diarrhea, Denies loose stools, Reports nausea, Denies odynophagia and Denies vomiting Reports no additional complaints Musc Reports no additional complaints Neuro Reports no additional complaints Psych Reports no additional complaints Endo Reports no additional complaints Physical Exam Vital Signs: Last Vital Signs Pulse 73 07/26/23 11:27 BP 112/57 L 07/26/23 11:27 Pulse Ox 99 07/26/23 11:27 Oxygen Delivery Method Room Air 07/26/23 11:27 BMI result Body Mass Index 26.0 Const General: healthy appearing, no acute distress and well developed Nutritional Appearance: well nourished Orientation/consciousness: patient oriented x3 Resp Effort & Inspection: normal respiratory effort, able to speak in complete sentences, no tracheal deviation and symmetric chest movement Auscultation: clear to auscultation bilaterally Cardio Rate: regular rate GI Inspection: Yes normal to inspection and No distended Palpation (GI): Soft to palpation, not firm, nontender and No hepatosplenomegaly present Auscultation: normal bowel sounds General: Yes no CVA tenderness Back/Spine/Pelvis Back: no CVA tenderness Skin General skin exam: elasticity normal, turgor normal and dry skin Neuro General: patient oriented x3 Psych Appearance: grossly normal Mental Status: mental status grossly normal Assessment & Plan Assessment & Plan (1) Constipation: Code(s): K59.00 - Constipation, unspecified Qualifiers: Constipation type: drug induced constipation Qualified Code(s): K59.03 - Drug induced constipation (2) Diverticulosis: Code(s): K57.90 - Diverticulosis of intestine, part unspecified, without perforation or abscess without bleeding (3) GERD (gastroesophageal reflux disease): Code(s): K21.9 - Gastro-esophageal reflux disease without esophagitis Qualifiers: Esophagitis presence: without esophagitis Qualified Code(s): K21.9 - Gastro-esophageal reflux disease without esophagitis (4) Transaminitis: Code(s): R74.01 - Elevation of levels of liver transaminase levels (5) Nausea: Code(s): R11.0 - Nausea (6) Postprandial epigastric pain: Code(s): R10.13 - Epigastric pain Plan Will order H pylori breath test. Will treat empirically if positive. Patient can start taking omeprazole 20 mg half an hour before breakfast. Avoid dietary triggers and late night snacking. Staying upright for minimum 3 hours after meals discussed with patient. Patient will start taking Citrucel to help her bulk stools. She can take on as needed basis stool softener in the evening to help her move her bowels better. Can continue Linzess for now. Patient had normal liver enzymes and February. Patient had normal ultrasound that showed normal liver. Patient is status post cholecystectomy. Continue low fat diet. Avoid carbs. I will see patient in 5 weeks, sooner on as needed basis. Patient is agreeable to this plan and verbalizes understanding of instructions. She was given the opportunity to ask questions and all questions answered. Thank you for allowing me to participate in her care Orders: Orders H Pylori Breath Test 07/26/23 K21.9 - Gastro-esophageal reflux disease without esophagitis Lipase 07/26/23 R10.9 - Unspecified abdominal pain Medications: New methylcellulose (laxative) (Citrucel) 500 mg PO DAILY 30 tabs 2RF K59.00 - Constipation, unspecified omeprazole 20 mg PO DAILY 30 caps 3RF K21.9 - Gastro-esophageal reflux disease without esophagitis Changed From docusate sodium 100 mg PO BID 60 caps 0RF To docusate sodium 100 mg PO DAILY 30 caps 3RF Coding Level of Care Code Est Pt Level 4 (42961) Diagnoses Drug-induced constipation K59.03 Constipation type: drug induced constipation Diverticulosis K57.90 Gastroesophageal reflux disease without esophagitis K21.9 Esophagitis presence: without esophagitis Transaminitis R74.01 Nausea R11.0 Postprandial epigastric pain R10.13 Time Spent (min) 35 Comment 20 minutes spent with patient and additional 15 minutes spent reviewing her records
[2023-07-26 11:27] VITALS: BP 112/57; PULSE 73; O2SAT 99; BMI 26.0
== END 2023-07-26 12:44 | disposition home or self-care (01) ==
PROVIDERS: PCP Internal Medicine; Visit Provider Nurse Practitioner Family
DX: K59.03 Drug induced constipation (principal); K57.90 Diverticulosis of intestine, part unspecified, without perforation or abscess without bleeding; K21.9 Gastro-esophageal reflux disease without esophagitis; R74.01 Elevation of levels of liver transaminase levels; R11.0 Nausea; R10.13 Epigastric pain
CPT/HCPCS: 99214

== ENCOUNTER 2023-07-26 11:24 | Outpatient (REF) | payer OTHER, SELFPAY ==
[2023-07-27 09:32] LABS: H Pylori Breath Test Negative (Negative)
== END 2023-07-26 11:25 | disposition home or self-care (01) ==
LOC: HO.LNP 11:24
PROVIDERS: PCP Internal Medicine; Visit Provider Nurse Practitioner Family
DX: K21.9 Gastro-esophageal reflux disease without esophagitis (principal); R42 Dizziness and giddiness; R11.0 Nausea; K59.03 Drug induced constipation; K57.90 Diverticulosis of intestine, part unspecified, without perforation or abscess without bleeding; R74.01 Elevation of levels of liver transaminase levels; R10.13 Epigastric pain; Z79.899 Other long term (current) drug therapy
CPT/HCPCS: 83013; 99212

== ENCOUNTER 2023-07-27 09:20 | Outpatient (REF) | payer OTHER, SELFPAY ==
[2023-07-27 09:33] LABS: MANUAL DIFF FLAG NO
[2023-07-27 11:02] LABS: Basophils Percent Auto 0.8 % (0-2); Eosinophils Percent Auto 0.8 % (0-4); Hematocrit 42.4 % (37.0-47.0); Hemoglobin 14.1 g/dl (12.0-16.0); Imm Gran Abs Auto 0.01 X10*3/uL (0.00-0.03); Imm Gran Pct Auto 0.2 % (0.0-0.4); Lymphocytes Absolute Auto 1.5 X10*3/uL (1.2-4.9); Lymphocytes Percent Auto 31.1 % (20-40); Mean Corpuscular HGB Conc 33.3 g/dl (31.0-35.0); Mean Corpuscular Hemoglobin 33.7 pg (27.0-33.0); Mean Corpuscular Volume 101.4 fL (80.0-98.0); Mean Platelet Volume 10.1 fL (9.4-12.3); Monocytes Absolute Auto 0.3 X10*3/uL (0.1-1.2); Monocytes Percent Auto 6.4 % (2-11); Neutrophils Absolute Auto 2.9 x10*3/uL (2.0-8.3); Neutrophils Percent Auto 60.7 % (45-73); Platelet Count 265 X10*3/uL (160-400); Red Blood Count 4.18 X10*6/uL (4.20-5.50); Red Cell Distribution Width 11.9 % (11.0-16.0); White Blood Count 4.9 X10*3/uL (4.8-10.8)
[2023-07-27 11:03] LABS: Appearance Urine Clear; Color Urine Yellow; Glucose Urine UA Negative (Negative); Leukocyte Esterase Urine Negative (Negative); Nitrite Urine Negative (Negative); PH 6.5 (5.0-9.0); Specific Gravity - Urine 1.015 (1.005-1.025); Urine Blood Negative (Negative); Urine Ketones Negative (Negative); Urine Protein Negative (Neg-Trace)
[2023-07-27 11:52] LABS: Alanine Aminotransferase 19 U/L (0-31); Alkaline Phosphatase 119 U/L (39-117); Anion Gap 14 (12-20); Aspartate Amino Transferase 20 U/L (5-31); Bilirubin Total 0.7 mg/dL (0.0-1.0); Blood Urea Nitrogen 14 mg/dL (9-16); Calcium 9.2 mg/dL (8.4-10.2); Carbon Dioxide 22 mmol/L (22-29); Chloride 111 mmol/L (96-108); Cholesterol 168 mg/dL (<200); Estimated Glomerular Filt Rate 49; Glucose Fasting 87 mg/dL (60-99); HDL Cholesterol 65 mg/dL (>40); LDL Cholesterol Calculated 85 mg/dL (<100); Potassium 3.7 mmol/L (3.3-5.1); Sodium 143 mmol/L (135-145); Total Protein 6.8 g/dL (6.5-8.0); Triglycerides 91 mg/dL (<150)
[2023-07-27 12:01] LABS: TSH reflex Free T4 1.19 uIU/mL (0.32-4.0); Vitamin D 25-OH Total 32.4 ng/mL (>30)
== END 2023-07-27 09:21 | disposition home or self-care (01) ==
LOC: HO.LAB 09:20
PROVIDERS: PCP Internal Medicine; Visit Provider Internal Medicine
DX: R30.0 Dysuria (principal); E78.00 Pure hypercholesterolemia, unspecified; D64.9 Anemia, unspecified; E55.9 Vitamin D deficiency, unspecified
CPT/HCPCS: 36415; 80053; 80061; 81003; 82306; 84443; 85025

== ENCOUNTER 2023-08-14 14:25 | Outpatient (AMB) | payer OTHER, SELFPAY ==
--- NOTE | 2023-08-14 14:36 | A.OFFPC_ITS ---
Vital Signs 08/14/23 14:37 Height 5 ft 2 in Weight 150 lb 8 oz BMI 27.5 BP 110/70 Blood Pressure Location Lt brachial Position Sitting Pulse 71 Pulse Source Pulse Oximeter Pulse Oximetry (%) 70 L Oxygen Delivery Method Room Air Intake Visit Reasons: Annual exam/ Intake Note: Patient is here today for a physical. Machine Repairer Required: Yes Machine Repairer Language: Director Strategy Name: Diana ([id number]) Information Interpreted: non-clinical & clinical Senior Devops Engineer: Not Required per policy Accompanied by: Self / Same As Patient Allergies acetaminophen Adverse Reaction (Unknown, Verified 08/14/23 15:36) Unknown atorvastatin Adverse Reaction (Severe, Uncoded 08/14/23 15:36) elevated liver enzymes Medication List - Last Reconciled 08/14/23 by Hung Montelongo MD albuterol sulfate 90 mcg/actuation (ProAir HFA) 2 puffs inhalation Q6H PRN 30 days aripiprazole 5 mg PO DAILY blood pressure monitor As directed cholecalciferol (vitamin D3) (Vitamin D3) 25 mcg PO DAILY 90 days clotrimazole 1% 1 appl topical BID [CPAP device and all related supplies As directed] cyanocobalamin (vitamin B-12) 500 mcg PO DAILY diphenhydramine HCl (Banophen) 25 mg PO TID PRN docusate sodium 100 mg PO DAILY estradiol (Yuvafem) 10 mcg vaginal 2XW 28 days ferrous sulfate 325 mg PO DAILY gabapentin 800 mg (2 x 400 mg) PO TID 30 days linaclotide (Linzess) 145 mcg PO DAILY lorazepam 1 mg PO BID PRN meclizine 25 mg PO TID PRN 30 days melatonin 5 mg PO BEDTIME PRN methylcellulose (laxative) (Citrucel) 500 mg PO DAILY midodrine 10 mg PO TID nystatin 1 mL PO TID 10 days omeprazole 20 mg PO DAILY oxybutynin chloride ER 5 mg PO DAILY 90 days polyethylene glycol 3350 (Miralax) 17 grams PO DAILY potassium citrate ER 5 mEq PO DAILY rosuvastatin 5 mg PO DAILY 30 days tramadol 100 mg (2 x 50 mg) PO Q8H PRN 30 days Tobacco use date assessed: 08/14/23 Dental Screening Dental Screen Date: 07/14/23 HPI Annual exam/ HPI Details Patient comes in today for her annual physical examination Patient continues to complain of chronic low back pain and on and pain over her left side/flank area were she had previous hernia repair surgeries done She denies any increased headaches but still reports (+) on and off dizziness Denies any chest pains, no increased SOB (+) recurrent nausea but she denies any vomiting, no abdominal pain No change in bowel habits noted Patient denies any acute urinary symptoms She had her follow-up labs done a few weeks ago - to discuss her results She had her colonoscopy last done on 07/19/2021, with (+) tubular adenoma and she was recommended to have a repeat colonoscopy done in 3 years She had her (normal) mammogram last done in October 2022 and she is scheduled to see Gynecology in January 2024 for her annual gynecologic exam and Pap smear [facility] Medical History (Updated 08/15/23 @ 05:26 by Hung Montelongo MD) Chronic kidney disease, stage III (moderate) Obesity (BMI 30-39.9) Renal cyst Diverticulosis Tubular adenoma Asthma Spondylosis of lumbar spine Sacroiliitis Dizziness of unknown etiology Chronic constipation Hx of schizophrenia Panic attacks PTSD (post-traumatic stress disorder) MIGUEL (obstructive sleep apnea) Dyspareunia Pyelonephritis Ingrown toenail Iron deficiency anemia Major depression, recurrent Anxiety Insomnia Tremor Orthostatic hypotension Incisional hernia without obstruction or gangrene Avascular necrosis of femoral head Bilateral carpal tunnel syndrome Peroneal neuropathy Lumbar degenerative disc disease Vitamin D deficiency GERD (gastroesophageal reflux disease) Migraine Hyperlipidemia Surgical History (Updated 08/15/23 @ 04:23 by Hung Montelongo MD) History of left nephrectomy (~1999) History of colonoscopy History of surgery Hx of cystoscopy History of bilateral breast reduction surgery History of hysterectomy History of cholecystectomy History of endoscopy (~06/2016) History of bladder repair surgery (~03/2015) S/P cystoscopy (~07/30/12) S/P panniculectomy History of hernia repair (~03/29/10) History of bladder surgery (~10/2009) History of gastric bypass (~2008) History of incisional hernia repair (~1999) Hx of umbilical hernia repair (~1999) H/O left nephrectomy S/P laparoscopic sleeve gastrectomy Family History Father Liver cancer Mother Breast cancer Sister Lung cancer Other Mental health problem Social History Household Members: Spouse and Family Housing: House Do you presently have visiting nurse or other home services: Yes Alcohol intake: never Patient Tobacco Use Status: Never used Tobacco e-Cigarette/Vaping Use: Never Used Second Hand Smoke Exposure: No Advance Directives Date on File: 07/12/21 service: No Current occupational status: disabled Sexual orientation: Straight/Heterosexual Cognitive needs: No Hearing needs: No Vision needs: Yes Female Reproductive History Menstrual Age of Menarche: 13 Questionnaire PHQ-9 Over the last 2 weeks, how often have you been bothered by any of the following problems? Depression Screening Interpretation: Positive Depression Screening Follow-up: Existing condition and In treatment Depression Screening Done: Yes Source: Developed by Drs. Vincenzo Mayo, Beverly Hernandez, Angel Vogel and colleagues, with an educational juan antonio from [employer]. Thrive Questionnaire Date Thrive assessed: 05/30/23 Currently or been in a relationship where the following occur: no concerns reported THRIVE Score: 0 JAMIE-7 AMB Questionnaire JAMIE-7 Date JAMIE - 7 assessed: 05/30/23 Source: Developed by Drs. Vincenzo Mayo, Beverly Hernandez, Angel Vogel and colleagues, with an educational juan antonio from [employer]. Review of Systems Const Denies chills, Reports fatigue, Denies fever(s), Denies headache(s) and Denies malaise Eyes Denies blurry vision, Denies change in vision, Denies irritation and Denies itchy eyes ENT Denies dysphagia, Reports dizziness (on and off), Denies otalgia, Denies headache(s), Denies nasal congestion, Denies neck pain, Denies odynophagia, Denies sinus pain and Denies sore throat Card Denies chest pain, Denies rapid heart rate, Denies irregular heart rhythm, Denies palpitations and Denies dyspnea Resp Denies chest congestion, Denies cough, Denies dyspnea and Denies wheezing GI Denies abdominal pain, Denies bloating, Denies constipation, Denies dysphagia, Denies heartburn, Denies diarrhea, Reports nausea (on and off), Denies odynophagia and Denies vomiting Denies hematuria, Denies urinary frequency, Denies dysuria, Denies urinary incontinence and Denies urinary urgency Musc Reports back pain (over the lower back - chronic), Denies arthralgias, Denies joint swelling, Denies muscle weakness and Denies neck pain Skin/Breast Denies breast pain, Denies breast mass, Denies change in pigmentation, Denies lesions, Denies rash and Denies unusual bruising Neuro Reports dizziness (on and off), Denies headache(s) and Denies paresthesias Psych Denies anxiety and Denies depression Endo Reports fatigue and Denies palpitations Catarino/Lymph Denies easy bruising Aller/Immun Denies itchy eyes and Denies wheezing Physical exam (Primary Care) Vital Signs: Last Vital Signs Pulse 71 08/14/23 14:37 BP 110/70 08/14/23 14:37 Pulse Ox 70 L 08/14/23 14:37 Oxygen Delivery Method Room Air 08/14/23 14:37 BMI result Body Mass Index 27.5 Tobacco/Smoking Status: Tobacco use Status Tobacco use date assessed 08/14/23 08/14/23 14:40 Patient Tobacco Use Status Never used Tobacco 08/14/23 14:40 e-Cigarette/Vaping Use Never Used 08/14/23 14:40 Depression Screening Interpretation: Positive Depression Screening Follow-up: Existing condition and In treatment Thrive Assessment: Date of Thrive Assessment Date Thrive assessed 05/30/23 08/14/23 14:40 Currently or been in a relationship where the following occur: no concerns reported Const General: no acute distress and alert Orientation/consciousness: patient oriented x3 HENMT Head: Yes normocephalic and Yes atraumatic Ears: TM's normal bilaterally and EAC's normal General nose exam: No nasal discharge present Face and sinus: Yes normal facial exam and Yes sinuses nontender Teeth and gingiva: dentition normal Throat: Yes posterior oropharynx normal and Yes tonsils normal Eyes Eyelids: Yes eyelids normal Conjunctivae: conjunctivae normal Pupils: Equal, round and reactive pupils present EOM: EOMs intact bilaterally Neck Neck: Yes no lymphadenopathy and Yes supple Thyroid: Thyroid normal Resp Auscultation: clear to auscultation bilaterally, no rales and no wheezes Cardio Rate: regular rate Rhythm: regular rhythm Heart sounds: no murmurs GI Palpation (GI): Soft to palpation, nontender, no guarding and No Rebound tenderness present Auscultation: normal bowel sounds General: Yes no CVA tenderness Back/Spine/Pelvis Back: no CVA tenderness Thoracic/Lumbar Spine: paraspinal muscle tenderness (over the lumbar region) on the right greater than left and lumbar spinal tenderness Skin Lesions: no lesions Rashes: no rashes Neuro General: patient oriented x3, moves all extremities, no focal motor deficits and CN's II-XI intact bilaterally Cranial nerves: Yes Equal, round and reactive pupils present Cognition (Neuro): normal cognition Gait exam (Neuro): Normal gait present Extrem General: Yes no clubbing, cyanosis or edema Results Reviewed Results Reviewed: Laboratory Tests 07/27/23 07/27/23 09:28 09:31 WBC 4.9 Hgb 14.1 Hct 42.4 Plt Count 265 Sodium 143 Potassium 3.7 Creatinine 1.16 Estimated GFR 49 Fasting Glucose 87 Calcium 9.2 AST 20 ALT 19 Triglycerides 91 Cholesterol 168 LDL Cholesterol, Calc 85 HDL Cholesterol 65 25-OH Vitamin D Total 32.4 TSH 1.19 Ur Specific [place] 1.015 Urine Protein Negative Urine Glucose (UA) Negative Urine Blood Negative Urine Nitrite Negative Ur Leukocyte Esterase Negative Assessment and Plan Assessment & Plan (1) Annual physical exam: Code(s): Z00.00 - Encounter for general adult medical examination without abnormal findings Plan: Results of her labs done a few weeks ago reviewed and discussed with patient She is up-to-date with all of her cancer screenings - she had her colonoscopy last done on 07/19/2021, with (+) tubular adenoma and she was recommended to have a repeat colonoscopy done in 3 years She had her (normal) mammogram last done in October 2022 and she is scheduled to see Gynecology in January 2024 for her annual gynecologic exam and Pap smear (2) Hyperlipidemia: Code(s): E78.5 - Hyperlipidemia, unspecified Qualifiers: Hyperlipidemia type: pure hypercholesterolemia Qualified Code(s): E78.00 - Pure hypercholesterolemia, unspecified Plan: She is advised that her cholesterol levels have improved significantly from previous Reinforced low cholesterol diet Continue Rosuvastatin 5 mg QD - she has been able to tolerate the medication without any problems so far (LFTs went up significantly while on Atorvastatin in the past) Will recheck her fasting lipids and labs in 3 months for follow up (3) MIGUEL (obstructive sleep apnea): Comment: mild degree of sleep apnea. The AHI was 5/hr and oxygen mitul was 81%. Code(s): G47.33 - Obstructive sleep apnea (adult) (pediatric) Plan: Continue using her CPAP device when sleeping at night daily Follow up with Sleep Medicine as scheduled (4) Chronic constipation: Code(s): K59.09 - Other constipation Plan: Encouraged increased oral fluids and dietary fiber States that Lactulose and Docusate 100 mg BID have not helped much previously; is also taking OTC Miralax, which she states helps minimally Was tried by GI on Linzess and Trulance as well recently - states that both Rx did not help Is currently on a combination regimen of Linzess 145 mcg QD, Docusate 100 mg BID and Miralax 17 gm QD Had EGD and colonoscopy done a couple of years ago - (+) tubular adenoma; colonoscopy was otherwise normal Follow up with GI as scheduled (5) GERD (gastroesophageal reflux disease): Code(s): K21.9 - Gastro-esophageal reflux disease without esophagitis Qualifiers: Esophagitis presence: without esophagitis Qualified Code(s): K21.9 - Gastro-esophageal reflux disease without esophagitis Plan: Dietary restrictions reinforced (6) Lumbar degenerative disc disease: Code(s): M51.36 - Other intervertebral disc degeneration, lumbar region Plan: Reinforced activity and weight lifting restrictions Continue Gabapentin 800 mg 3 times a day, Tramadol 50 mg 1-2 tablets every 8 h ours as needed Underwent physical therapy last year without any significant relief Was seen by [facility] and had a diagnostic SI joint injection under fluoroscopic guidance back in September 2021 and started seeing them again recently; has been scheduled for bilateral therapeutic sacroiliac joint injection under sedation Follow up with [facility] as scheduled (7) Arthralgia: Code(s): M25.50 - Pain in unspecified joint Qualifiers: Joint pain location: other joint Qualified Code(s): M25.59 - Pain in other specified joint Plan: Involving multiple joints, especially over both hips, both elbows and both knees lately X-rays of the knees done back in August 2021 revealed (+) mild OA changes in both knees; hip and elbow x-rays came out normal Continue Gabapentin 800 mg TID and Tramadol 50 mg TID PRN for pain (8) Orthostatic hypotension: Code(s): I95.1 - Orthostatic hypotension Plan: Continue Midodrine 10 mg TID - Rx refilled Follow up with cardiology as scheduled (9) Migraine: Code(s): G43.909 - Migraine, unspecified, not intractable, without status migrainosus Qualifiers: Intractability: not intractable Migraine type: unspecified Status migrainosus presence: without status migrainosus Qualified Code(s): G43.909 - Migraine, unspecified, not intractable, without status migrainosus Plan: Stable lately Continue Sumatriptan 50 mg PRN (10) Memory impairment: Code(s): R41.3 - Other amnesia Plan: Was referred to and seen by neurology - advised that her memory issues are multifactorial although she was diagnosed with frontotemporal lobe degeneration and dementia as well Follow up with neurology as scheduled (11) Insomnia: Code(s): G47.00 - Insomnia, unspecified Qualifiers: Insomnia type: primary Qualified Code(s): F51.01 - Primary insomnia Plan: Sleep hygiene reinforced Was taking Trazodone 50 mg daily at bedtime as needed and Prazosin 1 mg Q HS in the past but currently appears to be only taking Melatonin 5 mg Q HS Is also on Aripiprazole 5 mg Q HS (12) Anxiety: Code(s): F41.9 - Anxiety disorder, unspecified Plan: Continue Lorazepam 1 mg BID PRN (13) Major depression, recurrent: Code(s): F33.9 - Major depressive disorder, recurrent, unspecified Qualifiers: Active/Remission status: currently active Major depression episode severity: unspecified Qualified Code(s): F33.9 - Major depressive disorder, recurrent, unspecified Plan: Continue Benztropine 1 mg BID and Sertraline 25 mg QD and Aripiprazole 5 mg Q HS Was admitted to [facility] a few months ago for psychiatric decompensation and suicidal ideation Follow-up with Psychiatry as scheduled (14) Overweight (BMI 25.0-29.9): Code(s): E66.3 - Overweight Plan: Reinforced diet; exercise is unrealistic given patient's multiple medical and psychiatric morbidities (15) Osteoporosis screening: Code(s): Z13.820 - Encounter for screening for osteoporosis Plan: Will send patient for BMD for osteoporosis screening Plan Follow up in 3 months Orders: Orders Complete Blood Count Auto Diff 3 Months D64.9 - Anemia, unspecified Comprehensive [place]. Panel Fast 3 Months E78.00 - Pure hypercholesterolemia, unspecified TSH reflex Free T4 3 Months E78.00 - Pure hypercholesterolemia, unspecified XR DEXA axial skeleton 24 Z78.0 - Asymptomatic menopausal state Lipid Panel 3 Months E78.00 - Pure hypercholesterolemia, unspecified UA CC w/rflx Micro + Cult 3 Months R30.0 - Dysuria Vitamin D 25-OH Total 3 Months E55.9 - Vitamin D deficiency, unspecified Medications: Refilled midodrine do not give last dose of day after 6PM or within 4 hrs of bedtime 10 mg PO TID 30 tabs 1RF Coding Level of Care Code Est Pt Prev Care 40-64y([id number]) Diagnoses Annual physical exam Z00.00 Pure hypercholesterolemia E78.00 Hyperlipidemia type: pure hypercholesterolemia MIGUEL (obstructive sleep apnea) G47.33 Chronic constipation K59.09 Gastroesophageal reflux disease without esophagitis K21.9 Esophagitis presence: without esophagitis Lumbar degenerative disc disease M51.36 Pain in other joint M25.59 Joint pain location: other joint Orthostatic hypotension I95.1 Migraine without status migrainosus, not intractable, unspecified migraine type G43.909 Intractability: not intractable Migraine type: unspecified Status migrainosus presence: without status migrainosus Memory impairment R41.3 Primary insomnia F51.01 Insomnia type: primary Anxiety F41.9 Episode of recurrent major depressive disorder, unspecified depression episode severity F33.9 Active/Remission status: currently active Major depression episode severity: unspecified Overweight (BMI 25.0-29.9) E66.3 Osteoporosis screening Z13.820
[2023-08-14 14:37] VITALS: BP 110/70; PULSE 71; O2SAT 70; BMI 27.5
== END 2023-08-14 15:50 | disposition home or self-care (01) ==
PROVIDERS: PCP Internal Medicine; Visit Provider Internal Medicine
DX: Z00.00 Encounter for general adult medical examination without abnormal findings (principal); F33.9 Major depressive disorder, recurrent, unspecified; E78.00 Pure hypercholesterolemia, unspecified; G47.33 Obstructive sleep apnea (adult) (pediatric); K59.09 Other constipation; K21.9 Gastro-esophageal reflux disease without esophagitis; M51.36 Other intervertebral disc degeneration, lumbar region; M25.59 Pain in other specified joint; I95.1 Orthostatic hypotension; G43.909 Migraine, unspecified, not intractable, without status migrainosus; R41.3 Other amnesia; F51.01 Primary insomnia
CPT/HCPCS: 99396

== ENCOUNTER 2023-08-24 13:09 | Outpatient (REF) | payer OTHER, SELFPAY | END 2023-08-24 13:10 | disposition home or self-care (01) | LOC: HO.LAB 13:09 | PROVIDERS: PCP Internal Medicine; Visit Provider Nurse Practitioner Family | DX: N39.0 Urinary tract infection, site not specified (principal); N20.0 Calculus of kidney; R39.9 Unspecified symptoms and signs involving the genitourinary system | CPT/HCPCS: 51798; 81003; 87086; 87088; 87186; 99212 ==

== ENCOUNTER 2023-08-24 13:09 | Outpatient (AMB) | payer OTHER, SELFPAY ==
--- NOTE | 2023-08-24 13:37 | MHC.OFFVIS ---
Intake Visit Reasons: 6 month pvr/xray Intake Note: Patient is Present for PVR/ Urology Med: Patient states she is not taking any urological medications Antibiotic Allergy: None Blood Thinner: None Todays PVR: 0 Table Games Manager Required: Yes Table Games Manager Name: TARA GAMEZLADY Allergies acetaminophen Adverse Reaction (Unknown, Verified 08/24/23 21:23) Unknown atorvastatin Adverse Reaction (Severe, Uncoded 08/24/23 21:23) elevated liver enzymes Medication List - Last Reconciled 08/24/23 by ANNA Hughes albuterol sulfate 90 mcg/actuation (ProAir HFA) 2 puffs inhalation Q6H PRN 30 days aripiprazole 5 mg PO DAILY blood pressure monitor As directed cholecalciferol (vitamin D3) (Vitamin D3) 25 mcg PO DAILY 90 days clotrimazole 1% 1 appl topical BID [CPAP device and all related supplies As directed] cyanocobalamin (vitamin B-12) 500 mcg PO DAILY diphenhydramine HCl (Banophen) 25 mg PO TID PRN diphenhydramine HCl (Banophen) 50 mg PO BEDTIME docusate sodium 100 mg PO DAILY estradiol 0.01%(0.1mg/gram) vaginally 3 times a week; pea sized amount to urethra 3 times a week 30 days ferrous sulfate 325 mg PO DAILY gabapentin 800 mg (2 x 400 mg) PO TID 30 days linaclotide (Linzess) 145 mcg PO DAILY lorazepam 1 mg PO BID PRN meclizine 25 mg PO TID PRN 30 days melatonin 5 mg PO BEDTIME PRN methylcellulose (laxative) (Citrucel) 500 mg PO DAILY midodrine 10 mg PO TID mirtazapine 7.5 mg PO BEDTIME nitrofurantoin monohyd/m-cryst 100 mg (Macrobid) 100 mg PO Q12H 10 days nystatin 1 mL PO TID 10 days omeprazole 20 mg PO DAILY polyethylene glycol 3350 (Miralax) 17 grams PO DAILY potassium citrate ER 5 mEq PO DAILY rosuvastatin 5 mg PO DAILY 30 days topiramate 50 mg PO DAILY tramadol 100 mg (2 x 50 mg) PO Q8H PRN 30 days HPI Comments Details: Xenia is a very pleasant 52-year-old Beninese-speaking female patient of Dr. Montelongo. She has a past medical history of obesity, renal cysts, diverticulosis, asthma, spondylosis of lumbar spine, dizziness of unknown etiology, chronic constipation, schizophrenia, stage 3 chronic kidney disease, panic attacks, PTSD, obstructive sleep apnea, major depression, anxiety, insomnia, tremors, vitamin-D deficiency, GERD, migraines, and hyperlipidemia. She presents to the office today for follow-up of her nephrolithiasis and recurrent urinary tract infections. Recent KUB results reviewed with the patient today. 3 mm stone overlying the right renal lower pole shadow. No radiopaque calculi noted overlying the left renal kidney or bilateral ureteral path. When asked she reports noting urinary urgency, urinary frequency, and foul-smelling urine over the last 4-6 weeks. When asked she otherwise denies incontinence, nocturia, hematuria, dysuria, urine, changes to urinary stream, flank pain, fever, and or chills. In office urinalysis results reviewed with the patient today positive nitrates. PVR 0ml's. When asked she reports compliance with vitamin B6 and drinking plenty of water daily. When asked she denies above taking oxybutynin and Vagifem as ordered. Discussed and stressed the importance of taking medications as prescribed. Patient with a history of surgical menopause in 2018 with a hysterectomy with oophorectomy. In review of patient's chart it appears last urinary tract infection/positive urine culture 02/20. She otherwise offers no other issues or concerns at this time. [facility] Medical History Chronic kidney disease, stage III (moderate) Obesity (BMI 30-39.9) Renal cyst Diverticulosis Tubular adenoma Asthma Spondylosis of lumbar spine Sacroiliitis Dizziness of unknown etiology Chronic constipation Hx of schizophrenia Panic attacks PTSD (post-traumatic stress disorder) MIGUEL (obstructive sleep apnea) Dyspareunia Pyelonephritis Ingrown toenail Iron deficiency anemia Major depression, recurrent Anxiety Insomnia Tremor Orthostatic hypotension Incisional hernia without obstruction or gangrene Avascular necrosis of femoral head Bilateral carpal tunnel syndrome Peroneal neuropathy Lumbar degenerative disc disease Vitamin D deficiency GERD (gastroesophageal reflux disease) Migraine Hyperlipidemia Surgical History (Updated 08/15/23 @ 04:23 by Hung Montelongo MD) History of left nephrectomy (~1999) History of colonoscopy History of surgery Hx of cystoscopy History of bilateral breast reduction surgery History of hysterectomy History of cholecystectomy History of endoscopy (~06/2016) History of bladder repair surgery (~03/2015) S/P cystoscopy (~07/30/12) S/P panniculectomy History of hernia repair (~03/29/10) History of bladder surgery (~10/2009) History of gastric bypass (~2008) History of incisional hernia repair (~1999) Hx of umbilical hernia repair (~1999) H/O left nephrectomy S/P laparoscopic sleeve gastrectomy Family History Father Liver cancer Mother Breast cancer Sister Lung cancer Other Mental health problem Social History Household Members: Spouse and Family Housing: House Do you presently have visiting nurse or other home services: Yes Alcohol intake: never Patient Tobacco Use Status: Never used Tobacco e-Cigarette/Vaping Use: Never Used Second Hand Smoke Exposure: No Advance Directives Date on File: 07/12/21 service: No Current occupational status: disabled Sexual orientation: Straight/Heterosexual Cognitive needs: No Hearing needs: No Vision needs: Yes Female Reproductive History Menstrual Age of Menarche: 13 Review of Systems Const Reports no additional complaints Eyes Reports no additional complaints ENT Reports no additional complaints Card Reports as per [facility] Resp Reports as per [facility] GI Reports as per [facility] Reports as per [facility] Musc Reports as per [facility] Neuro Reports as per [facility] Psych Reports as per [facility] Office Procedures Post Void Residual Post Residual Void Post Void Residual (PVR): 2 [id number] Void Residual by ultrasound Results AMB Urinalysis, Automated UA Leukoctes 0 Asad/uL Last Edit by ADONIS Howard on 08/24/23 13:47 UA Nitrite Positive Last Edit by ADONIS Howard on 08/24/23 13:47 UA Urobilinogen 0.2 mg/dL Last Edit by ADONIS Howard on 08/24/23 13:47 UA Protein 0 mg/dL Last Edit by ADONIS Howard on 08/24/23 13:47 UA pH 6.0 Last Edit by ADONIS Howard on 08/24/23 13:47 UA Blood 0 Montrell/uL Last Edit by RUBÉN HowardA on 08/24/23 13:47 UA Specific [place] 1.010 Last Edit by Sandy Zarate RMA on 08/24/23 13:47 UA Ketone Negative Last Edit by Sandy Zarate, RMA on 08/24/23 13:47 UA Bilirubin 0 mg/dL Last Edit by Sandy Zarate, RMA on 08/24/23 13:47 UA Glucose 0 mg/dL Last Edit by Sandy Zarate A on 08/24/23 13:47 Results Reviewed Results Reviewed: Laboratory Last Values Urine pH (Auto) 6.0 08/24/23 13:44 Specific [place] (Auto) 1.010 08/24/23 13:44 Urine Protein (Auto) 0 mg/dL 08/24/23 13:44 Glucose (UA)(Auto) 0 mg/dL 08/24/23 13:44 Urine Ketones (Auto) Negative 08/24/23 13:44 Urine Blood (Auto) 0 Montrell/uL 08/24/23 13:44 Urine Nitrite (Auto) Positive 08/24/23 13:44 Urine Bilirubin (Auto) 0 mg/dL 08/24/23 13:44 Urine Urobilinogen (Auto) 0.2 mg/dL 08/24/23 13:44 Leukocyte Esterase (Auto) 0 Asad/uL 08/24/23 13:44 Date of Service: 06/09/23 EXAMINATION: XR ABDOMEN KUB FINDINGS: 3 mm calculus overlying the right renal lower pole shadow. No radiopaque patient overlying the left renal shadow or bilateral ureteral paths. Pelvic phleboliths are visualized. Bowel gas is nonobstructive. Left abdominal wall hernia mesh noted. Surgical clips in the bilateral upper abdomen and right lower abdomen. Suture material in the left upper abdomen. Degenerative changes of the thoracolumbar spine and bilateral acetabular joints. Soft tissues are unremarkable. IMPRESSION: 1. 3 mm calculus overlying the right renal lower pole shadow. 2. No radiopaque patient overlying the left renal shadow or bilateral ureteral paths. Assessment & Plan Assessment & Plan (1) Recurrent urinary tract infection: Code(s): N39.0 - Urinary tract infection, site not specified Category: Medical (2) Complicated urinary tract infection: Code(s): N39.0 - Urinary tract infection, site not specified Category: Medical (3) Nephrolithiasis: Code(s): N20.0 - Calculus of kidney Category: Medical (4) Lower urinary tract symptoms: Code(s): R39.9 - Unspecified symptoms and signs involving the genitourinary system Category: Medical Plan In office urinalysis results reviewed with the patient today; as noted above; will send for urine culture. Recent KUB results reviewed with the patient today; as noted above. Discussed, educated, and stressed the importance of taking medications as prescribed. Discussed, educated, and stressed the importance of drinking plenty of water daily. Discussed UTI prevention with D mannose supplement, vitamin-C, increasing fluid intake, behavioral therapy with timed voiding, perineal hygiene and postcoital voiding, and management of constipation with stool softeners and increased fiber intake. Start Estrace cream as discussed and prescribed. PVR 0 mL. Start Macrobid as discussed and prescribed. Discussed possible near future in office cystoscopy for further assessment evaluation. Discussed sending urine for possible microgen. Follow-up in 1 month with PVR; or sooner with any issues, concerns, and or questions. Orders: Orders AMB Urinalysis Automated Today Z13.9 - Encounter for screening, unspecified AMB Post Void Residual by ultrasound Today N39.0 - Urinary tract infection, site not specified Urine Culture Today N39.0 - Urinary tract infection, site not specified Medications: New nitrofurantoin monohyd/m-cryst 100 mg (Macrobid) must administer with a meal/food 100 mg PO Q12H 10 days 20 caps 0RF estradiol 0.01%(0.1mg/gram) vaginally 3 times a week; pea sized amount to urethra 3 times a week 30 days 42.5 grams 0RF Discontinued oxybutynin chloride ER Discontinued Reason: Patient no longer taking 5 mg PO DAILY 90 days 90 tabs 1RF estradiol (Yuvafem) Discontinued Reason: Doctor's Order 10 mcg vaginal 2XW 28 days 8 tabs 6RF N20.0 - Calculus of kidney, N95.8 - Other specified menopausal and perimenopausal disorders Patient Instructions: The patient had an opportunity to ask questions regarding the treatment plan. All questions were answered. Physical exam, labs, and imaging were discussed and reviewed in detail. As well as risks, benefits, and discussion of treatment choices. No major barriers to understanding were identified. The patient expressed understanding and agreement with the above treatment plan. The patient was made aware they should contact our office by phone for worsening of their current condition, the appearance of new symptoms, or with any questions or concerns. Compliance is encouraged with any medications and follow up testing that is ordered. It is a privilege to be allowed the opportunity to participate in? your urological care.? Again, if you have any questions or concerns If you have any questions or concerns please do not hesitate to contact me. The office is [phone]. This note is constructed using voice recognition software. While every effort has been made to ensure accuracy clay maker errors may have been included. Yours sincerely, ANNA Hughes Coding Level of Care Code Est Pt Level 4 (77863) Diagnoses Recurrent urinary tract infection N39.0 Complicated urinary tract infection N39.0 Nephrolithiasis N20.0 Lower urinary tract symptoms R39.9 CPT Codes Post Residual Void - PVR CPT Code: 66110-Cgma Void Residual by ultrasound ([id number])
== END 2023-08-24 14:17 | disposition home or self-care (01) ==
PROVIDERS: PCP Internal Medicine; Visit Provider Nurse Practitioner Family
DX: N39.0 Urinary tract infection, site not specified (principal); N20.0 Calculus of kidney; R39.9 Unspecified symptoms and signs involving the genitourinary system
CPT/HCPCS: 99214

== ENCOUNTER 2023-08-29 08:04 | Outpatient (REF) | payer OTHER, SELFPAY ==
[2023-08-29 09:21] LABS: Lipase 15 U/L (8-78)
== END 2023-08-29 08:05 | disposition home or self-care (01) ==
LOC: HO.LAB 08:04
PROVIDERS: PCP Internal Medicine; Visit Provider Nurse Practitioner Family
DX: R10.9 Unspecified abdominal pain (principal)
CPT/HCPCS: 36415; 83690

== ENCOUNTER 2023-08-30 11:27 | Outpatient (AMB) | payer OTHER, SELFPAY ==
--- NOTE | 2023-08-30 12:03 | MHC.OFFVIS ---
Vital Signs 08/30/23 12:09 Height 5 ft 2 in Weight 149 lb BMI 27.2 BP 119/61 Blood Pressure Location Lt brachial Position Sitting Pulse 49 L Intake Visit Reasons: 5 week follow up Intake Note: Patient 5 week follow up for abdominal pain and lab results Patient cc: dizziness, abdominal pain,GERD, constipation with hemorrhoids and poor appetite. Chief Diversity Officer Required: Yes Chief Diversity Officer Name: Deya GRIFFIN Accompanied by: Self / Same As Patient Allergies acetaminophen Adverse Reaction (Unknown, Verified 08/30/23 12:02) Unknown atorvastatin Adverse Reaction (Severe, Uncoded 08/24/23 21:23) elevated liver enzymes HPI HPI 5 week follow up: Details: LAST VISIT: Constipation Diverticulosis GERD (gastroesophageal reflux disease) Transaminitis Nausea Postprandial epigastric pain Plan Will order H pylori breath test. Will treat empirically if positive. Patient can start taking omeprazole 20 mg half an hour before breakfast. Avoid dietary triggers and late night snacking. Staying upright for minimum 3 hours after meals discussed with patient. Patient will start taking Citrucel to help her bulk stools. She can take on as needed basis stool softener in the evening to help her move her bowels better. Can continue Linzess for now. Patient had normal liver enzymes and February. Patient had normal ultrasound that showed normal liver. Patient is status post cholecystectomy. Continue low fat diet. Avoid carbs. I will see patient in 5 weeks, sooner on as needed basis. Patient is agreeable to this plan and verbalizes understanding of instructions. She was given the opportunity to ask questions and all questions answered. ? Thank you for allowing me to participate in her care Orders Orders H Pylori Breath Test 07/26/23 K21.9 Lipase 07/26/23 R10.9 Medications New methylcellulose (laxative) (Citrucel) 500 mg PO DAILY 30 tabs 2RF K59.00 omeprazole 20 mg PO DAILY 30 caps 3RF K21.9 Changed Changed From docusate sodium 100 mg PO BID 60 caps 0RF Changed To docusate sodium 100 mg PO DAILY 30 caps 3RF TODAY'S VISIT Patient is here today for follow-up. Patient reports that she continues to be constipated. She takes Linzess in the morning and she does not have a bowel movement sometimes for 2-3 days. Patient tried using Colace without much of results. Patient states that she is drinking water. Denies any melena, hematochezia, unintentional weight loss or ribbon like stools. Patient reports occasional dyspepsia. Lipase normal and negative H pylori. Patient is taking omeprazole daily and for the most part reports that her symptoms are suppressed. Patient does admit that she does not have much appetite. Patient is following up with her psychiatrist. Patient denies any dyspepsia, dysphagia or odynophagia [facility] Medical History Chronic kidney disease, stage III (moderate) Obesity (BMI 30-39.9) Renal cyst Diverticulosis Tubular adenoma Asthma Spondylosis of lumbar spine Sacroiliitis Dizziness of unknown etiology Chronic constipation Hx of schizophrenia Panic attacks PTSD (post-traumatic stress disorder) MIGUEL (obstructive sleep apnea) Dyspareunia Pyelonephritis Ingrown toenail Iron deficiency anemia Major depression, recurrent Anxiety Insomnia Tremor Orthostatic hypotension Incisional hernia without obstruction or gangrene Avascular necrosis of femoral head Bilateral carpal tunnel syndrome Peroneal neuropathy Lumbar degenerative disc disease Vitamin D deficiency GERD (gastroesophageal reflux disease) Migraine Hyperlipidemia Surgical History History of left nephrectomy (~1999) History of colonoscopy History of surgery Hx of cystoscopy History of bilateral breast reduction surgery History of hysterectomy History of cholecystectomy History of endoscopy (~06/2016) History of bladder repair surgery (~03/2015) S/P cystoscopy (~07/30/12) S/P panniculectomy History of hernia repair (~03/29/10) History of bladder surgery (~10/2009) History of gastric bypass (~2008) History of incisional hernia repair (~1999) Hx of umbilical hernia repair (~1999) H/O left nephrectomy S/P laparoscopic sleeve gastrectomy Family History Father Liver cancer Mother Breast cancer Sister Lung cancer Other Mental health problem Social History Household Members: Spouse and Family Housing: House Do you presently have visiting nurse or other home services: Yes Alcohol intake: never Patient Tobacco Use Status: Never used Tobacco e-Cigarette/Vaping Use: Never Used Second Hand Smoke Exposure: No Advance Directives Date on File: 07/12/21 service: No Current occupational status: disabled Sexual orientation: Straight/Heterosexual Cognitive needs: No Hearing needs: No Vision needs: Yes Female Reproductive History Menstrual Age of Menarche: 13 Review of Systems Const Denies weight gain and Denies weight loss ENT Reports no additional complaints, Denies dysphagia and Denies odynophagia Card Reports no additional complaints Resp Reports no additional complaints GI Reports abdominal pain (Occasional, epigastric and LLQ), Denies belching, Denies melena, Reports bloating, Denies change in bowel habits, Reports constipation, Denies dysphagia, Denies excessive flatus, Denies dyspepsia, Reports heartburn (Occasional), Denies diarrhea, Denies loose stools, Denies nausea, Denies odynophagia and Denies vomiting Reports no additional complaints Musc Reports no additional complaints Neuro Reports no additional complaints Psych Reports no additional complaints Endo Reports no additional complaints Physical Exam Vital Signs: Last Vital Signs Pulse 49 L 08/30/23 12:09 BP 119/61 08/30/23 12:09 BMI result Body Mass Index 27.2 Const General: healthy appearing, no acute distress and well developed Nutritional Appearance: well nourished Orientation/consciousness: patient oriented x3 Resp Effort & Inspection: normal respiratory effort, able to speak in complete sentences, no tracheal deviation and symmetric chest movement Auscultation: clear to auscultation bilaterally Cardio Rate: regular rate (58 apical, checked with stethoscope) GI Inspection: Yes normal to inspection and No distended Palpation (GI): Soft to palpation, not firm, nontender and No hepatosplenomegaly present Auscultation: normal bowel sounds General: Yes no CVA tenderness Back/Spine/Pelvis Back: no CVA tenderness Skin General skin exam: elasticity normal, turgor normal and dry skin Neuro General: patient oriented x3 Psych Appearance: grossly normal Mental Status: mental status grossly normal Results Reviewed Results Reviewed: Laboratory Tests 07/26/23 08/29/23 12:43 08:23 Lipase 15 H. pylori Breath Test Negative Assessment & Plan Assessment & Plan (1) Constipation: Code(s): K59.00 - Constipation, unspecified Category: Medical Qualifiers: Constipation type: drug induced constipation Qualified Code(s): K59.03 - Drug induced constipation (2) Diverticulosis: Code(s): K57.90 - Diverticulosis of intestine, part unspecified, without perforation or abscess without bleeding Category: Medical (3) GERD (gastroesophageal reflux disease): Code(s): K21.9 - Gastro-esophageal reflux disease without esophagitis Category: Medical Qualifiers: Esophagitis presence: without esophagitis Qualified Code(s): K21.9 - Gastro-esophageal reflux disease without esophagitis (4) Transaminitis: Code(s): R74.01 - Elevation of levels of liver transaminase levels Category: Medical (5) Nausea: Code(s): R11.0 - Nausea (6) Postprandial epigastric pain: Code(s): R10.13 - Epigastric pain Plan Continue omeprazole daily. Avoid dietary triggers and late night snacking. Staying upright for minimal 3 hours after meals discussed with patient. Patient will increase fluid intake and activity to promote better bowel motility. Continue Linzess in the morning and Dulcolax in the evening. Patient will return to the office in 3 months, sooner on as needed basis. Patient is agreeable to this plan and verbalizes understanding of instructions. She was given the opportunity to ask questions and all questions answered. Thank you for allowing me to participate in her care Medications: New bisacodyl (Dulcolax (bisacodyl)) 10 mg (2 x 5 mg) PO BEDTIME 180 tabs 4RF Coding Level of Care Code Est Pt Level 3 (83168) Diagnoses Drug-induced constipation K59.03 Constipation type: drug induced constipation Diverticulosis K57.90 Gastroesophageal reflux disease without esophagitis K21.9 Esophagitis presence: without esophagitis Transaminitis R74.01 Nausea R11.0 Postprandial epigastric pain R10.13 Time Spent (min) 30 Comment 20 minutes spent with patient and additional 10 minutes spent reviewing her records
[2023-08-30 12:09] VITALS: BP 119/61; PULSE 49; BMI 27.2
== END 2023-08-30 12:21 | disposition home or self-care (01) ==
PROVIDERS: PCP Internal Medicine; Visit Provider Nurse Practitioner Family
DX: K59.03 Drug induced constipation (principal); K57.90 Diverticulosis of intestine, part unspecified, without perforation or abscess without bleeding; K21.9 Gastro-esophageal reflux disease without esophagitis; R74.01 Elevation of levels of liver transaminase levels; R11.0 Nausea; R10.13 Epigastric pain
CPT/HCPCS: 99213

== ENCOUNTER → 2023-08-30 11:27 | Outpatient (BNVA) | payer OTHER, SELFPAY | PROVIDERS: PCP Internal Medicine; Visit Provider Nurse Practitioner Family | DX: K64.9 Unspecified hemorrhoids (principal); K21.9 Gastro-esophageal reflux disease without esophagitis; K59.03 Drug induced constipation; K57.90 Diverticulosis of intestine, part unspecified, without perforation or abscess without bleeding; R10.9 Unspecified abdominal pain; R42 Dizziness and giddiness; R74.01 Elevation of levels of liver transaminase levels; R11.0 Nausea; R10.13 Epigastric pain | CPT/HCPCS: 99212 ==

== ENCOUNTER 2023-09-05 10:19 | Outpatient (REF) | payer OTHER, SELFPAY ==
[2023-09-05 10:37] LABS: MANUAL DIFF FLAG NO
[2023-09-05 11:08] LABS: Basophils Absolute Auto 0.1 X10*3/uL (0.0-0.2); Eosinophils Absolute Auto 0.1 X10*3/uL (0.0-0.4); Eosinophils Percent Auto 1.1 % (0-4); Hematocrit 42.2 % (37.0-47.0); Hemoglobin 13.9 g/dl (12.0-16.0); Imm Gran Abs Auto 0.01 X10*3/uL (0.00-0.03); Imm Gran Pct Auto 0.2 % (0.0-0.4); Lymphocytes Absolute Auto 1.9 X10*3/uL (1.2-4.9); Lymphocytes Percent Auto 36.6 % (20-40); Mean Corpuscular HGB Conc 32.9 g/dl (31.0-35.0); Mean Corpuscular Hemoglobin 33.7 pg (27.0-33.0); Mean Corpuscular Volume 102.2 fL (80.0-98.0); Mean Platelet Volume 9.8 fL (9.4-12.3); Monocytes Absolute Auto 0.3 X10*3/uL (0.1-1.2); Monocytes Percent Auto 6.3 % (2-11); Neutrophils Absolute Auto 2.9 x10*3/uL (2.0-8.3); Neutrophils Percent Auto 54.8 % (45-73); Platelet Count 253 X10*3/uL (160-400); Red Blood Count 4.13 X10*6/uL (4.20-5.50); White Blood Count 5.2 X10*3/uL (4.8-10.8)
[2023-09-05 11:52] LABS: Parathyroid Hormone Intact 115.6 pg/mL (8.7-77.1)
[2023-09-05 11:54] LABS: Anion Gap 13 (12-20); Blood Urea Nitrogen 13 mg/dL (9-16); Calcium 9.2 mg/dL (8.4-10.2); Carbon Dioxide 22 mmol/L (22-29); Chloride 113 mmol/L (96-108); Estimated Glomerular Filt Rate > 60; Potassium 4.1 mmol/L (3.3-5.1); Sodium 144 mmol/L (135-145)
[2023-09-05 12:19] LABS: Appearance Urine Turbid; Color Urine Yellow; Glucose Urine UA Negative (Negative); Leukocyte Esterase Urine Negative (Negative); Nitrite Urine Negative (Negative); Specific Gravity - Urine 1.015 (1.005-1.025); Urine Blood Negative (Negative); Urine Ketones Negative (Negative); Urine Protein Negative (Neg-Trace)
[2023-09-05 12:54] LABS: Creatinine Urine 105.89 mg/dL; Microalbum/Creatinine Ratio Ur 9.4 ug/mg cr (<30); Total Protein Urine Random < 7 mg/dL (<12)
== END 2023-09-05 10:20 | disposition home or self-care (01) ==
LOC: HO.LAB 10:19
PROVIDERS: PCP Internal Medicine; Visit Provider Internal Medicine
DX: N18.2 Chronic kidney disease, stage 2 (mild) (principal)
CPT/HCPCS: 36415; 80051; 81003; 82043; 82306; 82310; 82565; 82570; 83970; 84156; 84520; 84550; 85025

== ENCOUNTER 2023-10-19 14:06 | Outpatient (AMB) | payer OTHER, SELFPAY ==
--- NOTE | 2023-10-19 14:27 | MHC.OFFVIS ---
Intake Visit Reasons: 8W Follow-up Intake Note: Patient presents today for follow up on: Recurrent UTI Urology Medications: Estrace Cream Antibiotic Allergy: None Blood Thinner: None PVR: 0ml's Communication Consultant Required: Yes Communication Consultant Name: Dequan [id number] Allergies acetaminophen Adverse Reaction (Unknown, Verified 10/19/23 14:45) Unknown atorvastatin Adverse Reaction (Severe, Uncoded 10/19/23 14:45) elevated liver enzymes Medication List - Last Reconciled 10/19/23 by ANNA Hughes albuterol sulfate 90 mcg/actuation (ProAir HFA) 2 puffs inhalation Q6H PRN 30 days aripiprazole 5 mg PO DAILY bisacodyl (Dulcolax (bisacodyl)) 10 mg (2 x 5 mg) PO BEDTIME blood pressure monitor As directed cholecalciferol (vitamin D3) (Vitamin D3) 25 mcg PO DAILY 90 days clotrimazole 1% 1 appl topical BID [CPAP device and all related supplies As directed] cyanocobalamin (vitamin B-12) 500 mcg PO DAILY diphenhydramine HCl (Banophen) 25 mg PO TID PRN diphenhydramine HCl (Banophen) 50 mg PO BEDTIME docusate sodium 100 mg PO DAILY estradiol 0.01%(0.1mg/gram) vaginally 3 times a week; pea sized amount to urethra 3 times a week 30 days ferrous sulfate 325 mg PO DAILY gabapentin 800 mg (2 x 400 mg) PO TID 30 days linaclotide (Linzess) 145 mcg PO DAILY lorazepam 1 mg PO BID PRN lurasidone 20 mg PO DAILY meclizine 25 mg PO TID PRN 30 days melatonin 5 mg PO BEDTIME PRN methylcellulose (laxative) (Citrucel) 500 mg PO DAILY midodrine 10 mg PO TID mirtazapine 7.5 mg PO BEDTIME nystatin 1 mL PO TID 10 days omeprazole 20 mg PO DAILY polyethylene glycol 3350 (Miralax) 17 grams PO DAILY potassium citrate ER 5 mEq PO DAILY rosuvastatin 5 mg PO DAILY topiramate 50 mg PO DAILY 30 days tramadol 100 mg (2 x 50 mg) PO Q8H PRN 30 days HPI Comments Details: Xenia is a very pleasant 52-year-old Irish-speaking female patient of Dr. Montelongo. She has a past medical history of obesity, renal cysts, diverticulosis, asthma, spondylosis of lumbar spine, dizziness of unknown etiology, chronic constipation, schizophrenia, stage 3 chronic kidney disease, panic attacks, PTSD, obstructive sleep apnea, major depression, anxiety, insomnia, tremors, vitamin-D deficiency, GERD, migraines, and hyperlipidemia. She presents to the office today for follow-up of her nephrolithiasis and recurrent urinary tract infections. Of note, patient was seen approximately 2 months ago at which time she was treated for a positive urine culture of Klebsiella pneumoniae. In discussion with the patient today she reports having completed antibiotic therapy as prescribed. She currently denies any bothersome urinary issues or concerns. She reports urinary urgency, urinary frequency, and follow smelling urine has since subsided. She currently denies urinary urgency, urinary frequency, incontinence, nocturia, hematuria, dysuria, foul smelling urine, changes to urinary stream, flank pain, fever, and or chills. She is happy with her current voiding parameters. In office urinalysis results reviewed with the patient today. PVR 0 mL. Previous workup has included a KUB 06/24 that noted 3 mm stone overlying the right renal lower pole shadow. When asked she reports compliance with vitamin B6 and drinking plenty of water daily. She also reports compliance with Vagifem as prescribed. She otherwise offers no other issues or concerns at this time. [facility] Medical History Chronic kidney disease, stage III (moderate) Obesity (BMI 30-39.9) Renal cyst Diverticulosis Tubular adenoma Asthma Spondylosis of lumbar spine Sacroiliitis Dizziness of unknown etiology Chronic constipation Hx of schizophrenia Panic attacks PTSD (post-traumatic stress disorder) MIGUEL (obstructive sleep apnea) Dyspareunia Pyelonephritis Ingrown toenail Iron deficiency anemia Major depression, recurrent Anxiety Insomnia Tremor Orthostatic hypotension Incisional hernia without obstruction or gangrene Avascular necrosis of femoral head Bilateral carpal tunnel syndrome Peroneal neuropathy Lumbar degenerative disc disease Vitamin D deficiency GERD (gastroesophageal reflux disease) Migraine Hyperlipidemia Surgical History History of left nephrectomy (~1999) History of colonoscopy History of surgery Hx of cystoscopy History of bilateral breast reduction surgery History of hysterectomy History of cholecystectomy History of endoscopy (~06/2016) History of bladder repair surgery (~03/2015) S/P cystoscopy (~07/30/12) S/P panniculectomy History of hernia repair (~03/29/10) History of bladder surgery (~10/2009) History of gastric bypass (~2008) History of incisional hernia repair (~1999) Hx of umbilical hernia repair (~1999) H/O left nephrectomy S/P laparoscopic sleeve gastrectomy Family History Father Liver cancer Mother Breast cancer Sister Lung cancer Other Mental health problem Social History Household Members: Spouse and Family Housing: House Do you presently have visiting nurse or other home services: Yes Alcohol intake: never Patient Tobacco Use Status: Never used Tobacco e-Cigarette/Vaping Use: Never Used Second Hand Smoke Exposure: No Advance Directives Date on File: 07/12/21 service: No Current occupational status: disabled Sexual orientation: Straight/Heterosexual Cognitive needs: No Hearing needs: No Vision needs: Yes Female Reproductive History Menstrual Age of Menarche: 13 Review of Systems Const Reports no additional complaints Eyes Reports no additional complaints ENT Reports no additional complaints Card Reports as per HPI Resp Reports as per HPI GI Reports as per HPI Reports as per HPI Musc Reports as per HPI Neuro Reports as per HPI Psych Reports as per HPI Physical Exam Const General: cooperative, healthy appearing, comfortable, no acute distress, well developed, alert and awake Orientation/consciousness: patient oriented x3 Limitations: no limitations HEENT Head: Yes normal to inspection, Yes normocephalic and Yes atraumatic Ears: hearing grossly normal bilaterally Eyes General: appearance normal, both eyes and all related structures Neck Neck: Yes normal visual inspection and Yes trachea midline Chest Chest palpation & inspection: normal inspection of the chest Resp Effort & Inspection: normal respiratory effort and able to speak in complete sentences Cardio Rate: regular rate GI Inspection: Yes normal to inspection General: Yes no CVA tenderness Back/Spine/Pelvis Back: no CVA tenderness Skin General skin exam: no rashes or lesions noted Neuro General: patient oriented x3 Extrem General: Yes normal to inspection Psych Appearance: grossly normal and well kempt Mental Status: mental status grossly normal Speech and movement: Normal speech and movement present and Clear speech present Affect: normal affect Attitude: cooperative Thought process: Normal thought process present Thought content: Normal thought content present Insight: Fair insight present (Psych) Judgement: Fair judgement present (Psych) Office Procedures Post Void Residual Post Residual Void Post Void Residual (PVR): 0 [id number]-[id number] Void Residual by ultrasound Results AMB Urinalysis, Automated UA Leukoctes 0 Asad/uL Last Edit by [employer] on 10/19/23 14:42 UA Nitrite Negative Last Edit by [employer] on 10/19/23 14:42 UA Urobilinogen 0.2 mg/dL Last Edit by [employer] on 10/19/23 14:42 UA Protein 0 mg/dL Last Edit by [employer] on 10/19/23 14:42 UA pH 6.0 Last Edit by [employer] on 10/19/23 14:42 UA Blood 0 Montrell/uL Last Edit by [employer] on 10/19/23 14:42 UA Specific Mellott 1.015 Last Edit by [employer] on 10/19/23 14:42 UA Ketone Negative Last Edit by [employer] on 10/19/23 14:42 UA Bilirubin 0 mg/dL Last Edit by [employer] on 10/19/23 14:42 UA Glucose 0 mg/dL Last Edit by [employer] on 10/19/23 14:42 Results Reviewed Results Reviewed: Laboratory Last Values Urine pH (Auto) 6.0 10/19/23 14:40 Specific Mellott (Auto) 1.015 10/19/23 14:40 Urine Protein (Auto) 0 mg/dL 10/19/23 14:40 Glucose (UA)(Auto) 0 mg/dL 10/19/23 14:40 Urine Ketones (Auto) Negative 10/19/23 14:40 Urine Blood (Auto) 0 Montrell/uL 10/19/23 14:40 Urine Nitrite (Auto) Negative 10/19/23 14:40 Urine Bilirubin (Auto) 0 mg/dL 10/19/23 14:40 Urine Urobilinogen (Auto) 0.2 mg/dL 10/19/23 14:40 Leukocyte Esterase (Auto) 0 Asad/uL 10/19/23 14:40 Assessment & Plan Assessment & Plan (1) Recurrent urinary tract infection: Code(s): N39.0 - Urinary tract infection, site not specified Category: Medical (2) Solitary kidney, acquired: Code(s): Z90.5 - Acquired absence of kidney Category: Medical (3) Nephrolithiasis: Code(s): N20.0 - Calculus of kidney Category: Medical Plan In office urinalysis results reviewed with the patient today; as noted above. PVR 0 mL. Patient currently denies any bothersome urinary issues or concerns. She reports be happy with current voiding parameters. Discussed UTI prevention with D mannose supplement, vitamin-C, increasing fluid intake, behavioral therapy with timed voiding, perineal hygiene and postcoital voiding, and management of constipation with stool softeners and increased fiber intake. Continue Vagifem as discussed and prescribed. Continue vitamin B6 as discussed and prescribed. Follow-up in 3 months with PVR; or sooner with any issues, concerns, and or questions. Orders: Orders AMB Urinalysis Automated Today Z13.9 - Encounter for screening, unspecified AMB Post Void Residual by ultrasound Today R39.9 - Unspecified symptoms and signs involving the genitourinary system Patient Instructions: The patient had an opportunity to ask questions regarding the treatment plan. All questions were answered. Physical exam, labs, and imaging were discussed and reviewed in detail. As well as risks, benefits, and discussion of treatment choices. No major barriers to understanding were identified. The patient expressed understanding and agreement with the above treatment plan. The patient was made aware they should contact our office by phone for worsening of their current condition, the appearance of new symptoms, or with any questions or concerns. Compliance is encouraged with any medications and follow up testing that is ordered. It is a privilege to be allowed the opportunity to participate in? your urological care.? Again, if you have any questions or concerns If you have any questions or concerns please do not hesitate to contact me. The office is [phone]. This note is constructed using voice recognition software. While every effort has been made to ensure accuracy refrigeration brazer/solderer errors may have been included. Yours sincerely, ANNA Hughes Coding Level of Care Code Est Pt Level 3 (61480) Complex EM visit Add On G2211 Diagnoses Recurrent urinary tract infection N39.0 Solitary kidney, acquired Z90.5 Nephrolithiasis N20.0 CPT Codes Post Residual Void - PVR CPT Code: 18228-[id number] Void Residual by ultrasound ([id number])
== END 2023-10-19 14:45 | disposition home or self-care (01) ==
PROVIDERS: PCP Internal Medicine; Visit Provider Nurse Practitioner Family
DX: N39.0 Urinary tract infection, site not specified (principal); Z90.5 Acquired absence of kidney; N20.0 Calculus of kidney; Z13.9 Encounter for screening, unspecified
CPT/HCPCS: 99213; G2211

== ENCOUNTER → 2023-10-19 14:06 | Outpatient (BNVA) | payer OTHER, SELFPAY | PROVIDERS: PCP Internal Medicine; Visit Provider Nurse Practitioner Family | DX: N39.0 Urinary tract infection, site not specified (principal); N20.0 Calculus of kidney; Z90.5 Acquired absence of kidney | CPT/HCPCS: 51798; 81003; 99212 ==

== ENCOUNTER 2023-10-23 14:41 | Outpatient (AMB) | payer OTHER, SELFPAY ==
--- NOTE | 2023-10-23 14:42 | A.OFFVIS_ITS ---
Vital Signs 10/23/23 14:43 Height 5 ft 2 in Weight 160 lb 14.999 oz BMI 29.4 BP 90/62 Blood Pressure Location Lt brachial Position Sitting Pulse 76 Pulse Source Pulse Oximeter Intake Visit Reasons: F/U after Tilt / Testing Tieing Machine Operator Required: Yes Tieing Machine Operator Language: House Principal Name: isidro ernandez [id number] Allergies acetaminophen Adverse Reaction (Unknown, Verified 10/23/23 14:46) Unknown atorvastatin Adverse Reaction (Severe, Uncoded 10/23/23 14:46) elevated liver enzymes Medication List - Last Reconciled 10/23/23 by ALISE Bauman albuterol sulfate 90 mcg/actuation (ProAir HFA) 2 puffs inhalation Q6H PRN 30 days aripiprazole 5 mg PO DAILY bisacodyl (Dulcolax (bisacodyl)) 10 mg (2 x 5 mg) PO BEDTIME blood pressure monitor As directed cholecalciferol (vitamin D3) (Vitamin D3) 25 mcg PO DAILY 90 days clotrimazole 1% 1 appl topical BID [CPAP device and all related supplies As directed] cyanocobalamin (vitamin B-12) 500 mcg PO DAILY diphenhydramine HCl (Banophen) 25 mg PO TID PRN diphenhydramine HCl (Banophen) 50 mg PO BEDTIME docusate sodium 100 mg PO DAILY estradiol 0.01%(0.1mg/gram) vaginally 3 times a week; pea sized amount to urethra 3 times a week 30 days ferrous sulfate 325 mg PO DAILY gabapentin 800 mg (2 x 400 mg) PO TID 30 days linaclotide (Linzess) 145 mcg PO DAILY lorazepam 1 mg PO BID PRN lurasidone 20 mg PO DAILY meclizine 25 mg PO TID PRN 30 days melatonin 5 mg PO BEDTIME PRN methylcellulose (laxative) (Citrucel) 500 mg PO DAILY midodrine 10 mg PO TID mirtazapine 7.5 mg PO BEDTIME nystatin 1 mL PO TID 10 days omeprazole 20 mg PO DAILY polyethylene glycol 3350 (Miralax) 17 grams PO DAILY potassium citrate ER 5 mEq PO DAILY rosuvastatin 5 mg PO DAILY topiramate 50 mg PO DAILY 30 days tramadol 100 mg (2 x 50 mg) PO Q8H PRN 30 days HPI HPI F/U after Tilt / Testing: Details: Xenia as a 52-year-old female with past medical history of obesity status post bariatric surgery, anxiety/depression, orthostatic hypotension, syncope who presents for follow-up after cardiac evaluation including cardiac event monitor, echocardiogram and tilt-table test. Today she reports that she continues to have lightheadedness when standing. She describes having 2-3 syncopal episodes since her last visit here in very. She tells me that her vision becomes cloudy and head is spinning then her body goes week. She says this has happened with her standing as well as sitting. She reports taking the midodrine 3 times daily as directed. She drinks 4-5 water bottles per day. She is not wearing compression stockings. She has not increase the salt in her diet. She has no chest discomfort, shortness of breath, PND, orthopnea, edema. She reports only light activities in the home. Her helps her climb the stairs. [facility] Medical History Chronic kidney disease, stage III (moderate) Obesity (BMI 30-39.9) Renal cyst Diverticulosis Tubular adenoma Asthma Spondylosis of lumbar spine Sacroiliitis Dizziness of unknown etiology Chronic constipation Hx of schizophrenia Panic attacks PTSD (post-traumatic stress disorder) MIGUEL (obstructive sleep apnea) Dyspareunia Pyelonephritis Ingrown toenail Iron deficiency anemia Major depression, recurrent Anxiety Insomnia Tremor Orthostatic hypotension Incisional hernia without obstruction or gangrene Avascular necrosis of femoral head Bilateral carpal tunnel syndrome Peroneal neuropathy Lumbar degenerative disc disease Vitamin D deficiency GERD (gastroesophageal reflux disease) Migraine Hyperlipidemia Surgical History History of left nephrectomy (~1999) History of colonoscopy History of surgery Hx of cystoscopy History of bilateral breast reduction surgery History of hysterectomy History of cholecystectomy History of endoscopy (~06/2016) History of bladder repair surgery (~03/2015) S/P cystoscopy (~07/30/12) S/P panniculectomy History of hernia repair (~03/29/10) History of bladder surgery (~10/2009) History of gastric bypass (~2008) History of incisional hernia repair (~1999) Hx of umbilical hernia repair (~1999) H/O left nephrectomy S/P laparoscopic sleeve gastrectomy Family History Father Liver cancer Mother Breast cancer Sister Lung cancer Other Mental health problem Social History Household Members: Spouse and Family Housing: House Do you presently have visiting nurse or other home services: Yes Alcohol intake: never Patient Tobacco Use Status: Never used Tobacco e-Cigarette/Vaping Use: Never Used Second Hand Smoke Exposure: No Advance Directives Date on File: 07/12/21 service: No Current occupational status: disabled Sexual orientation: Straight/Heterosexual Cognitive needs: No Hearing needs: No Vision needs: Yes Female Reproductive History Menstrual Age of Menarche: 13 Review of Systems Const All systems reviewed & are unremarkable except as noted in HPI and below ENT Reports dizziness Card Denies chest pain, Denies chest pain at rest, Denies chest pain with activity, Denies rapid heart rate, Denies pedal edema, Denies edema, Denies leg edema, Reports lightheadedness, Denies palpitations, Denies dyspnea, Denies dyspnea on exertion and Denies orthopnea Resp Denies cough, Denies dyspnea and Denies dyspnea on exertion GI Denies hematochezia and Denies change in stool character Musc Denies abnormal gait, Denies limited range of motion, Denies muscle cramps, Denies muscle weakness, Denies numbness, Denies radiating pain into limb, Denies stiffness and Denies tingling Neuro Denies abnormal gait, Reports dizziness, Denies numbness and Denies tingling Endo Denies palpitations Physical Exam Vital Signs: Last Vital Signs Pulse 76 10/23/23 14:43 BP 90/62 10/23/23 14:43 BMI result Body Mass Index 29.4 Const General: cooperative, healthy appearing, comfortable and no acute distress Orientation/consciousness: patient oriented x3 Neck Neck: Yes normal visual inspection and Yes no JVD Resp Effort & Inspection: normal respiratory effort Auscultation: clear to auscultation bilaterally, no crackles, no rales, no rhonchi and no wheezes Cardio Jugular venous distension: no JVD Rate: regular rate Rhythm: regular rhythm Heart sounds: S1 normal heart sound present, S2 normal heart sound present, no murmurs and no rubs Neuro General: patient oriented x3 Extrem General: Yes normal to inspection and No no pedal edema Psych Appearance: grossly normal Mental Status: mental status grossly normal Speech and movement: Normal speech and movement present Assessment & Plan Assessment & Plan (1) Orthostatic dizziness: Code(s): R42 - Dizziness and giddiness Category: Medical Plan: Reports of orthostatic lightheadedness. She does run a low blood pressure and midodrine was added then dose increased due to ongoing hypotension. She is currently on 10 mg t.i.d. and reports compliance. She states she has had 2-3 syncopal episodes since her last visit in June. A cardiac event monitor was done on 07/11/2023 for 30 days showing sinus rhythm with heart rate range 36 to 131, 2 brief paroxysmal SVT episodes, rare PACs and PVCs. Two symptom events correlated with sinus tach. An echocardiogram was done 07/11/2023 which was normal study. An tilt-table test done on 10/17/2023 showed appropriate heart rate and blood pressure response to tilt. Blood pressures today are not orthostatic when checked by me. Blood pressure sitting and standing are both 98/62. She currently reports drinking 4-5 water bottles per day. She has not increased her salt and is not using compression stockings. Will have her increase the salt in her diet. Suggested chicken soup, Gatorade, potato chips as food items with salt. I gave her a pair of compression stockings from our office stock. Instructed on physical activity as tolerated and using caution when going sitting to standing. Sit or lay down if she becomes symptomatic. She will continue midodrine 3 times daily. If blood pressures remain low and symptomatic with increased salt in her diet and compression stocking use then will add Florinef going forward. (2) Hypotension: Code(s): I95.9 - Hypotension, unspecified Category: Medical Plan: As above Plan Time spent on chart review, documentation, interview and assessment Coding Level of Care Code Est Pt Level 3 (20130) Diagnoses Orthostatic dizziness R42 Hypotension I95.9 Time Spent (min) 24
[2023-10-23 14:43] VITALS: BP 90/62; PULSE 76; BMI 29.4
== END 2023-10-23 15:14 | disposition home or self-care (01) ==
PROVIDERS: PCP Internal Medicine; Visit Provider Nurse Practitioner Family
DX: R42 Dizziness and giddiness (principal); I95.9 Hypotension, unspecified
CPT/HCPCS: 99213

== ENCOUNTER → 2023-10-23 14:41 | Outpatient (BNVA) | payer OTHER, SELFPAY | PROVIDERS: PCP Internal Medicine; Visit Provider Nurse Practitioner Family | DX: R42 Dizziness and giddiness (principal); I95.9 Hypotension, unspecified; Z79.899 Other long term (current) drug therapy | CPT/HCPCS: 99212 ==

== ENCOUNTER 2023-10-24 12:29 | Outpatient (AMB) | payer OTHER, SELFPAY ==
--- NOTE | 2023-10-24 12:51 | A.OFFVIS_ITS ---
Vital Signs 10/24/23 13:03 Height 5 ft 2 in Weight 160 lb BMI 29.3 BP 100/64 Blood Pressure Location Rt brachial Position Sitting Pulse 55 Pulse Source Pulse Oximeter Pulse Oximetry (%) 100 Oxygen Delivery Method Room Air Intake Visit Reasons: 4 mo f/u-CONF Intake Note: Patient presents for 4 months f/u. Hot air is coming out the CPAP machine. Watch Dial Printer Required: Yes Watch Dial Printer Services: Watch Dial Printer Present Watch Dial Printer Name: Ivana Rey Allergies acetaminophen Adverse Reaction (Unknown, Verified 10/24/23 13:02) Unknown atorvastatin Adverse Reaction (Severe, Uncoded 10/23/23 14:46) elevated liver enzymes Medication List - Last Reconciled 10/24/23 by GOOD Fuentes albuterol sulfate 90 mcg/actuation (ProAir HFA) 2 puffs inhalation Q6H PRN 30 days aripiprazole 5 mg PO DAILY bisacodyl (Dulcolax (bisacodyl)) 10 mg (2 x 5 mg) PO BEDTIME blood pressure monitor As directed cholecalciferol (vitamin D3) (Vitamin D3) 25 mcg PO DAILY 90 days clotrimazole 1% 1 appl topical BID [CPAP device and all related supplies As directed] cyanocobalamin (vitamin B-12) 500 mcg PO DAILY diphenhydramine HCl (Banophen) 25 mg PO TID PRN diphenhydramine HCl (Banophen) 50 mg PO BEDTIME docusate sodium 100 mg PO DAILY estradiol 0.01%(0.1mg/gram) vaginally 3 times a week; pea sized amount to urethra 3 times a week 30 days ferrous sulfate 325 mg PO DAILY gabapentin 800 mg (2 x 400 mg) PO TID 30 days linaclotide (Linzess) 145 mcg PO DAILY lorazepam 1 mg PO BID PRN lurasidone 20 mg PO DAILY meclizine 25 mg PO TID PRN 30 days melatonin 5 mg PO BEDTIME PRN methylcellulose (laxative) (Citrucel) 500 mg PO DAILY midodrine 10 mg PO TID mirtazapine 7.5 mg PO BEDTIME nystatin 1 mL PO TID 10 days omeprazole 20 mg PO DAILY polyethylene glycol 3350 (Miralax) 17 grams PO DAILY potassium citrate ER 5 mEq PO DAILY rosuvastatin 5 mg PO DAILY topiramate 50 mg PO DAILY 30 days tramadol 100 mg (2 x 50 mg) PO Q8H PRN 30 days HPI Comments Details: 52-yr-old female presents for f/u visit for mild obstructive sleep apnea Pt denies any significant interval medical changes. During the visit, pt became teary and visibly saddened, which only subsided momentarily during physical exam. States that she is depressed, worried about her family. Endorses SI a veces . States no specific reason for feeling so sad and depressed right now. Denies any specific health concern of her own or any specific thing topic we addressed today. Her partner drove her here, but she declined allowing us to update him on he rstatus. She did agree to us calling her [facility] therapist, Wilber. However we could not reach her therapist and was directed towards [facility] crisis. Pt did consent to having crisis call her cell phone once she returned home- around 4-:4:30pm. Pt states she has not been able to use her APAP machine, as it is blowing hot air. She did speak w/ [employer], who made some adjustments to her machine however the air is still blowing hot air. She would like to use her PAP machine as she states she sleeps better with use. While reviewing pt's interval history- pt noted that she does have orthostatic lightheadedness, had recent tilt table test- which was normal, however pt states she did take all of her medications the morning of the study. She also reports tremor over the last 6 months and poor memory. She also endorses a h/o talking/crying in her sleep, leg cramps, drooling, neck tightness- prone to right laterocollis, falls d/t tripping or losing ehr balance She denies h/o hypsomia, rigiidty. [facility] Medical History Chronic kidney disease, stage III (moderate) Obesity (BMI 30-39.9) Renal cyst Diverticulosis Tubular adenoma Asthma Spondylosis of lumbar spine Sacroiliitis Dizziness of unknown etiology Chronic constipation Hx of schizophrenia Panic attacks PTSD (post-traumatic stress disorder) MIGUEL (obstructive sleep apnea) Dyspareunia Pyelonephritis Ingrown toenail Iron deficiency anemia Major depression, recurrent Anxiety Insomnia Tremor Orthostatic hypotension Incisional hernia without obstruction or gangrene Avascular necrosis of femoral head Bilateral carpal tunnel syndrome Peroneal neuropathy Lumbar degenerative disc disease Vitamin D deficiency GERD (gastroesophageal reflux disease) Migraine Hyperlipidemia Surgical History History of left nephrectomy (~1999) History of colonoscopy History of surgery Hx of cystoscopy History of bilateral breast reduction surgery History of hysterectomy History of cholecystectomy History of endoscopy (~06/2016) History of bladder repair surgery (~03/2015) S/P cystoscopy (~07/30/12) S/P panniculectomy History of hernia repair (~03/29/10) History of bladder surgery (~10/2009) History of gastric bypass (~2008) History of incisional hernia repair (~1999) Hx of umbilical hernia repair (~1999) H/O left nephrectomy S/P laparoscopic sleeve gastrectomy Family History Father Liver cancer Mother Breast cancer Sister Lung cancer Other Mental health problem Social History Household Members: Spouse and Family Housing: House Do you presently have visiting nurse or other home services: Yes Alcohol intake: never Patient Tobacco Use Status: Never used Tobacco e-Cigarette/Vaping Use: Never Used Second Hand Smoke Exposure: No Advance Directives Date on File: 07/12/21 service: No Current occupational status: disabled Sexual orientation: Straight/Heterosexual Cognitive needs: No Hearing needs: No Vision needs: Yes Female Reproductive History Menstrual Age of Menarche: 13 Physical Exam Vital Signs: Last Vital Signs Pulse 55 10/24/23 13:03 BP 100/64 10/24/23 13:03 Pulse Ox 100 10/24/23 13:03 Oxygen Delivery Method Room Air 10/24/23 13:03 BMI result Body Mass Index 29.3 Const General: cooperative and no acute distress Orientation/consciousness: patient oriented x3 Resp Effort & Inspection: normal respiratory effort and able to speak in complete sentences Neuro Other: A&O w/ STM lapses. Decreased expression. Sad affect. Teary. Right laterocolllis. Bilateral posterior cervical tightness BUE L > R postural tremor. Very slight decrease in LUE ARA, Left FFM and foot taps. No arm swing, but steady gait. General: patient oriented x3 Cranial nerves: Yes CN's II-XII intact bilaterally Psych Appearance: grossly normal Mental Status: mental status grossly normal Affect: normal affect Attitude: cooperative Assessment & Plan Assessment & Plan (1) MIGUEL (obstructive sleep apnea): Comment: mild degree of sleep apnea. The AHI was 5/hr and oxygen mitul was 81%. Code(s): G47.33 - Obstructive sleep apnea (adult) (pediatric) Category: Medical (2) Depression: Code(s): F32.A - Depression, unspecified Category: Medical Plan Pt sat in exam room for extended time w/ provider and/or MA until crisis was contacted, plan made, and ride home was available. As above- reached out to [facility], transferred to [facility] crisis. Pt consented to having [facility] call her today once she has returned home. Contact numbers for [facility] and [facility] crisis centers given to pt. Pt does have a therapy appt w/ Regla on 10/30/23. Will also reach out to [facility] to ask that pt's machine be checked- as pt states it is blowing hot air. Note MIGUEL is mild, however pt feels she sleeps betetr with use, so will continue to help pt to use her APAP with goal of APAP 5-15 cmH2O. Monitor tremor. will f/u w/ pt and plan for in-clinic f/u visit in 6 months or sooner prn. Coding Level of Care Code Est Pt Level 4 (96967) Diagnoses MIGUEL (obstructive sleep apnea) G47.33 Depression F32.A Time Spent (min) 70
[2023-10-24 13:03] VITALS: BP 100/64; PULSE 55; O2SAT 100; BMI 29.3
== END 2023-10-24 14:41 | disposition home or self-care (01) ==
PROVIDERS: PCP Internal Medicine; Visit Provider Nurse Practitioner Family
DX: G47.33 Obstructive sleep apnea (adult) (pediatric) (principal); F32.A Depression, unspecified
CPT/HCPCS: 99214

== ENCOUNTER → 2023-10-24 12:29 | Outpatient (BNVA) | payer OTHER, SELFPAY | PROVIDERS: PCP Internal Medicine; Visit Provider Nurse Practitioner Family | DX: G47.33 Obstructive sleep apnea (adult) (pediatric) (principal); F32.A Depression, unspecified | CPT/HCPCS: 99212 ==

== ENCOUNTER 2023-11-15 10:28 | Outpatient (REF) | payer OTHER, SELFPAY ==
[2023-11-15 10:45] LABS: MANUAL DIFF FLAG NO
[2023-11-15 10:56] LABS: Basophils Absolute Auto 0.1 X10*3/uL (0.0-0.2); Basophils Percent Auto 1.1 % (0-2); Eosinophils Absolute Auto 0.1 X10*3/uL (0.0-0.4); Eosinophils Percent Auto 0.9 % (0-4); Hematocrit 42.2 % (37.0-47.0); Imm Gran Abs Auto 0.02 X10*3/uL (0.00-0.03); Imm Gran Pct Auto 0.4 % (0.0-0.4); Lymphocytes Absolute Auto 1.5 X10*3/uL (1.2-4.9); Lymphocytes Percent Auto 26.5 % (20-40); Mean Corpuscular HGB Conc 33.2 g/dl (31.0-35.0); Mean Corpuscular Hemoglobin 34.1 pg (27.0-33.0); Mean Corpuscular Volume 102.9 fL (80.0-98.0); Mean Platelet Volume 9.5 fL (9.4-12.3); Monocytes Absolute Auto 0.4 X10*3/uL (0.1-1.2); Monocytes Percent Auto 6.3 % (2-11); Neutrophils Absolute Auto 3.7 x10*3/uL (2.0-8.3); Neutrophils Percent Auto 64.8 % (45-73); Platelet Count 250 X10*3/uL (160-400); White Blood Count 5.7 X10*3/uL (4.8-10.8)
[2023-11-15 12:04] LABS: Alanine Aminotransferase 53 U/L (0-31); Albumin Level 3.9 g/dL (3.5-5.0); Alkaline Phosphatase 140 U/L (39-117); Anion Gap 12 (12-20); Aspartate Amino Transferase 34 U/L (5-31); Bilirubin Total 0.6 mg/dL (0.0-1.0); Blood Urea Nitrogen 14 mg/dL (9-16); Calcium 9.1 mg/dL (8.4-10.2); Carbon Dioxide 22 mmol/L (22-29); Chloride 112 mmol/L (96-108); Cholesterol 169 mg/dL (<200); Estimated Glomerular Filt Rate 54; Glucose Fasting 97 mg/dL (60-99); HDL Cholesterol 71 mg/dL (>40); LDL Cholesterol Calculated 81 mg/dL (<100); Potassium 4.7 mmol/L (3.3-5.1); Sodium 141 mmol/L (135-145); TSH reflex Free T4 1.31 uIU/mL (0.32-4.0); Total Protein 6.8 g/dL (6.5-8.0); Triglycerides 89 mg/dL (<150); Vitamin D 25-OH Total 31.4 ng/mL (>30)
== END 2023-11-15 10:29 | disposition home or self-care (01) ==
LOC: HO.LAB 10:28
PROVIDERS: PCP Internal Medicine; Visit Provider Internal Medicine
DX: D64.9 Anemia, unspecified (principal); E78.00 Pure hypercholesterolemia, unspecified; E55.9 Vitamin D deficiency, unspecified
CPT/HCPCS: 36415; 80053; 80061; 82306; 84443; 85025

== ENCOUNTER 2023-11-17 15:31 | Outpatient (AMB) | payer OTHER, SELFPAY ==
--- NOTE | 2023-11-17 15:34 | A.OFFPC_ITS ---
Vital Signs 11/17/23 15:36 Height 5 ft 2 in Weight 159 lb 8 oz BMI 29.2 BP 90/68 Blood Pressure Location Lt brachial Position Sitting Pulse 70 Pulse Source Pulse Oximeter Pulse Oximetry (%) 96 Oxygen Delivery Method Room Air Intake Visit Reasons: 3mth f/u Intake Note: Patient is here to follow up on CKD, MDD, HLD, MIGUEL . Director Of Career Resources Required: Yes Director Of Career Resources Language: Administrative Assistant Front Desk Name: Ryan ([id number]) Information Interpreted: non-clinical & clinical Community Service Aide: Not Required per policy Accompanied by: Self / Same As Patient Allergies acetaminophen Adverse Reaction (Unknown, Verified 11/17/23 16:23) Unknown atorvastatin Adverse Reaction (Severe, Uncoded 11/17/23 16:23) elevated liver enzymes Medication List - Last Reconciled 11/17/23 by Hung Montelongo MD albuterol sulfate 90 mcg/actuation (ProAir HFA) 2 puffs inhalation Q6H PRN 30 days aripiprazole 5 mg PO DAILY bisacodyl (Dulcolax (bisacodyl)) 10 mg (2 x 5 mg) PO BEDTIME blood pressure monitor As directed cholecalciferol (vitamin D3) (Vitamin D3) 25 mcg PO DAILY 90 days clotrimazole 1% 1 appl topical BID [CPAP device and all related supplies As directed] cyanocobalamin (vitamin B-12) 500 mcg PO DAILY diphenhydramine HCl (Banophen) 25 mg PO TID PRN diphenhydramine HCl (Banophen) 50 mg PO BEDTIME docusate sodium 100 mg PO DAILY estradiol 0.01%(0.1mg/gram) vaginally 3 times a week; pea sized amount to urethra 3 times a week 30 days ferrous sulfate 325 mg PO DAILY gabapentin 800 mg (2 x 400 mg) PO TID 30 days linaclotide (Linzess) 145 mcg PO DAILY lorazepam 1 mg PO BID PRN lurasidone 20 mg PO DAILY meclizine 25 mg PO TID PRN 30 days melatonin 5 mg PO BEDTIME PRN methylcellulose (laxative) (Citrucel) 500 mg PO DAILY midodrine 10 mg PO TID mirtazapine 7.5 mg PO BEDTIME nystatin 1 mL PO TID 10 days omeprazole 20 mg PO DAILY polyethylene glycol 3350 (Miralax) 17 grams PO DAILY potassium citrate ER 5 mEq PO DAILY rosuvastatin 5 mg PO DAILY topiramate 50 mg PO DAILY 30 days tramadol 100 mg (2 x 50 mg) PO Q8H PRN 30 days Tobacco use date assessed: 11/17/23 Dental Screening Dental Screen Date: 07/14/23 HPI 3mth f/u HPI Details Patient comes in today for her follow up visit She continues to complain of increased chronic pains over her lower back and is again asking for something more effective than she is currently on for pain She is also requesting for a referral to see Dr. Yariel Corey, plastic surgeon, to see about getting corrective surgery done - states that she has redundant skin folds over her lower abdomen that is encroaching often into her suprapubic area and is causing her to experience frequent pain and irritation there She relates still (+) on and off headaches; denies any dizziness lately She denies any chest pains, no increased SOB Still (+) on and off nausea but no vomiting, no abdominal pain No change in bowel habits noted She had her follow up labs done a couple of days ago - to discuss her results [facility] Medical History Chronic kidney disease, stage III (moderate) Obesity (BMI 30-39.9) Renal cyst Diverticulosis Tubular adenoma Asthma Spondylosis of lumbar spine Sacroiliitis Dizziness of unknown etiology Chronic constipation Hx of schizophrenia Panic attacks PTSD (post-traumatic stress disorder) MIGUEL (obstructive sleep apnea) Dyspareunia Pyelonephritis Ingrown toenail Iron deficiency anemia Major depression, recurrent Anxiety Insomnia Tremor Orthostatic hypotension Incisional hernia without obstruction or gangrene Avascular necrosis of femoral head Bilateral carpal tunnel syndrome Peroneal neuropathy Lumbar degenerative disc disease Vitamin D deficiency GERD (gastroesophageal reflux disease) Migraine Hyperlipidemia Surgical History History of left nephrectomy (~1999) History of colonoscopy History of surgery Hx of cystoscopy History of bilateral breast reduction surgery History of hysterectomy History of cholecystectomy History of endoscopy (~06/2016) History of bladder repair surgery (~03/2015) S/P cystoscopy (~07/30/12) S/P panniculectomy History of hernia repair (~03/29/10) History of bladder surgery (~10/2009) History of gastric bypass (~2008) History of incisional hernia repair (~1999) Hx of umbilical hernia repair (~1999) H/O left nephrectomy S/P laparoscopic sleeve gastrectomy Family History Father Liver cancer Mother Breast cancer Sister Lung cancer Other Mental health problem Social History Household Members: Spouse and Family Housing: House Do you presently have visiting nurse or other home services: Yes Alcohol intake: never Patient Tobacco Use Status: Never used Tobacco e-Cigarette/Vaping Use: Never Used Second Hand Smoke Exposure: No Advance Directives Date on File: 07/12/21 service: No Current occupational status: disabled Sexual orientation: Straight/Heterosexual Cognitive needs: No Hearing needs: No Vision needs: Yes Female Reproductive History Menstrual Age of Menarche: 13 Questionnaire Thrive Questionnaire Date Thrive assessed: 05/30/23 JAMIE-7 AMB Questionnaire JAMIE-7 Date JAMIE - 7 assessed: 05/30/23 Source: Developed by Drs. Vincenzo Mayo, Beverly Hernandez, Angel Vogel and colleagues, with an educational juan antonio from [employer]. Review of Systems Const Denies chills, Reports fatigue, Denies fever(s) and Denies headache(s) ENT Denies dysphagia, Reports dizziness (on and off), Denies otalgia, Denies headache(s), Denies neck pain, Denies odynophagia and Denies sore throat Card Denies chest pain, Denies irregular heart rhythm, Denies palpitations and Denies dyspnea Resp Denies chest congestion, Denies cough, Denies dyspnea and Denies wheezing GI Denies abdominal pain, Denies constipation, Denies dysphagia, Denies heartburn, Denies diarrhea, Reports nausea (on and off), Denies odynophagia and Denies vomiting Denies hematuria, Denies urinary frequency, Denies dysuria and Denies urinary incontinence Musc Reports back pain (over the lower back - chronic), Denies arthralgias and Denies neck pain Skin/Breast Denies rash Neuro Reports dizziness (on and off), Denies headache(s) and Denies paresthesias Psych Reports anxiety and Reports depression Endo Reports fatigue and Denies palpitations Catarino/Lymph Denies easy bruising Aller/Immun Denies wheezing Physical exam (Primary Care) Vital Signs: Last Vital Signs Pulse 70 11/17/23 15:36 BP 90/68 11/17/23 15:36 Pulse Ox 96 11/17/23 15:36 Oxygen Delivery Method Room Air 11/17/23 15:36 BMI result Body Mass Index 29.2 Tobacco/Smoking Status: Tobacco use Status Tobacco use date assessed 11/17/23 11/17/23 15:41 Patient Tobacco Use Status Never used Tobacco 11/17/23 15:41 e-Cigarette/Vaping Use Never Used 11/17/23 15:41 Thrive Assessment: Date of Thrive Assessment Date Thrive assessed 05/30/23 11/17/23 15:41 Const General: no acute distress and alert HENMT Ears: TM's normal bilaterally and EAC's normal Throat: Yes posterior oropharynx normal and Yes tonsils normal Neck Neck: Yes no lymphadenopathy and Yes supple Thyroid: Thyroid normal Resp Auscultation: clear to auscultation bilaterally, no rales and no wheezes Cardio Rate: regular rate Rhythm: regular rhythm Heart sounds: no murmurs GI Palpation (GI): Soft to palpation and nontender Auscultation: normal bowel sounds General: Yes no CVA tenderness Back/Spine/Pelvis Back: no CVA tenderness Thoracic/Lumbar Spine: paraspinal muscle tenderness (over the lumbar region) on the right greater than left and lumbar spinal tenderness Skin Rashes: no rashes Extrem General: Yes no clubbing, cyanosis or edema Results Reviewed Results Reviewed: Laboratory Tests 09/05/23 11/15/23 10:36 10:43 WBC 5.7 Hgb 14.0 Hct 42.2 Plt Count 250 Sodium 141 Potassium 4.7 Creatinine 1.07 Estimated GFR 54 Fasting Glucose 97 Calcium 9.1 AST 34 H ALT 53 H Triglycerides 89 Cholesterol 169 LDL Cholesterol, Calc 81 HDL Cholesterol 71 25-OH Vitamin D Total 31.4 TSH 1.31 PTH Intact 115.6 H Assessment and Plan Assessment & Plan (1) Hyperlipidemia: Code(s): E78.5 - Hyperlipidemia, unspecified Qualifiers: Hyperlipidemia type: pure hypercholesterolemia Qualified Code(s): E78.00 - Pure hypercholesterolemia, unspecified Plan: Results of her labs done a couple of days ago reviewed and discussed with patient Reinforced low cholesterol diet Continue Rosuvastatin 5 mg QD - she has been able to tolerate the medication without any problems so far (LFTs went up significantly while on Atorvastatin in the past) Will recheck her fasting lipids and labs in 3 months for follow up (2) MIGUEL (obstructive sleep apnea): Comment: mild degree of sleep apnea. The AHI was 5/hr and oxygen mitul was 81%. Code(s): G47.33 - Obstructive sleep apnea (adult) (pediatric) Plan: Continue using her CPAP device when sleeping at night daily Follow up with Sleep Medicine as scheduled (3) Solitary kidney, acquired: Code(s): Z90.5 - Acquired absence of kidney Plan: Follow up with nephrology as scheduled (4) Chronic constipation: Code(s): K59.09 - Other constipation Plan: Encouraged increased oral fluids and dietary fiber States that Lactulose and Docusate 100 mg BID have not helped much previously; is also taking OTC Miralax, which she states helps minimally Was tried by GI on Linzess and Trulance as well recently - states that both Rx did not help Is currently on a combination regimen of Linzess 145 mcg QD, Docusate 100 mg BID and Miralax 17 gm QD Had EGD and colonoscopy done a couple of years ago - (+) tubular adenoma; colonoscopy was otherwise normal Follow up with GI as scheduled (5) GERD (gastroesophageal reflux disease): Code(s): K21.9 - Gastro-esophageal reflux disease without esophagitis Qualifiers: Esophagitis presence: without esophagitis Qualified Code(s): K21.9 - Gastro-esophageal reflux disease without esophagitis Plan: Dietary restrictions reinforced Continue Omeprazole 20 mg QD (6) Lumbar degenerative disc disease: Code(s): M51.36 - Other intervertebral disc degeneration, lumbar region Plan: Reinforced activity and weight lifting restrictions Continue Gabapentin 800 mg 3 times a day, Tramadol 50 mg 1-2 tablets every 8 hours as needed She went to physical therapy last year without any significant relief She was seen by [facility] and had a diagnostic SI joint injection under fluoroscopic guidance back in September 2021 and started seeing them again recently; has been scheduled for bilateral therapeutic sacroiliac joint injection under sedation but it looks like she stopped going to pain management afterwards - unclear at this time why and patient herself cannot recall the reason she stopped going - thinks the she was never given any follow up appts since Will refer her back to [facility] Pain management for interventional Tx to help with her chronic pain Have reminded patient that we are not going to be prescribing her any opioids for her chronic pain (7) Arthralgia: Code(s): M25.50 - Pain in unspecified joint Qualifiers: Joint pain location: other joint Qualified Code(s): M25.59 - Pain in other specified joint Plan: Involving multiple joints, especially over both hips, both elbows and both knees lately X-rays of the knees done back in August 2021 revealed (+) mild OA changes in both knees; hip and elbow x-rays came out normal Continue Gabapentin 800 mg TID and Tramadol 50 mg TID PRN for pain (8) Orthostatic hypotension: Code(s): I95.1 - Orthostatic hypotension Plan: Continue Midodrine 10 mg TID Follow up with cardiology as scheduled (9) Migraine: Code(s): G43.909 - Migraine, unspecified, not intractable, without status migrainosus Qualifiers: Intractability: not intractable Migraine type: unspecified Status migrainosus presence: without status migrainosus Qualified Code(s): G43.909 - Migraine, unspecified, not intractable, without status migrainosus Plan: Stable lately Continue Topiramate 50 mg QD for LANZA prophylaxis and Sumatriptan 50 mg PRN (10) Vitamin D deficiency: Code(s): E55.9 - Vitamin D deficiency, unspecified Plan: Continue Vitamin D3 1000 units QD (11) Abdominal pannus: Code(s): E65 - Localized adiposity Plan: Per request, will refer her to plastic surgery (Dr. Yariel Corey) for consideration for panniculectomy (12) Memory impairment: Code(s): R41.3 - Other amnesia Plan: She was referred to and seen by neurology and was advised that her memory issues are multifactorial although she was diagnosed with frontotemporal lobe degeneration and dementia as well Follow up with neurology as scheduled (13) Insomnia: Code(s): G47.00 - Insomnia, unspecified Qualifiers: Insomnia type: primary Qualified Code(s): F51.01 - Primary insomnia Plan: Sleep hygiene reinforced She was taking Trazodone 50 mg daily at bedtime as needed and Prazosin 1 mg Q HS in the past but currently appears to be only taking Melatonin 5 mg Q HS Is also on Aripiprazole 5 mg Q HS (14) Anxiety: Code(s): F41.9 - Anxiety disorder, unspecified Plan: Continue Lorazepam 1 mg BID PRN adn Diphenhydramine 50 mg Q HS (15) Major depression, recurrent: Code(s): F33.9 - Major depressive disorder, recurrent, unspecified Qualifiers: Active/Remission status: currently active Major depression episode severity: unspecified Qualified Code(s): F33.9 - Major depressive disorder, recurrent, unspecified Plan: Continue Lurasidone 20 mg QD, Mirtazapine 7.5 mg Q HS and Aripiprazole 5 mg Q HS Was admitted to [facility] a few months ago for psychiatric decompensation and suicidal ideation Follow-up with Psychiatry as scheduled (16) Overweight (BMI 25.0-29.9): Code(s): E66.3 - Overweight Plan: Reinforced diet; exercise is unrealistic given patient's multiple medical and psychiatric morbidities Plan Follow up in 3 months Orders: Orders Lipid Panel 3 Months E78.00 - Pure hypercholesterolemia, unspecified UA CC w/rflx Micro + Cult 3 Months R30.0 - Dysuria Complete Blood Count Auto Diff 3 Months D64.9 - Anemia, unspecified Comprehensive [place]. Panel Fast 3 Months E78.00 - Pure hypercholesterolemia, unspecified TSH reflex Free T4 3 Months E78.00 - Pure hypercholesterolemia, unspecified Vitamin D 25-OH Total 3 Months E55.9 - Vitamin D deficiency, unspecified Referrals 2 Plastic Surgery Referral E65 - Localized adiposity Pain Management Referral M46.1 - Sacroiliitis, not elsewhere classified, M47.816 - Spondylosis without myelopathy or radiculopathy, lumbar region, M54.50 - Low back pain, unspecified Coding Level of Care Code Est Pt Level 4 (98612) Diagnoses Pure hypercholesterolemia E78.00 Hyperlipidemia type: pure hypercholesterolemia MIGUEL (obstructive sleep apnea) G47.33 Solitary kidney, acquired Z90.5 Chronic constipation K59.09 Gastroesophageal reflux disease without esophagitis K21.9 Esophagitis presence: without esophagitis Lumbar degenerative disc disease M51.36 Pain in other joint M25.59 Joint pain location: other joint Orthostatic hypotension I95.1 Migraine without status migrainosus, not intractable, unspecified migraine type G43.909 Intractability: not intractable Migraine type: unspecified Status migrainosus presence: without status migrainosus Vitamin D deficiency E55.9 Abdominal pannus E65 Memory impairment R41.3 Primary insomnia F51.01 Insomnia type: primary Anxiety F41.9 Episode of recurrent major depressive disorder, unspecified depression episode severity F33.9 Active/Remission status: currently active Major depression episode severity: unspecified Overweight (BMI 25.0-29.9) E66.3
[2023-11-17 15:36] VITALS: BP 90/68; PULSE 70; O2SAT 96; BMI 29.2
== END 2023-11-17 16:35 | disposition home or self-care (01) ==
PROVIDERS: PCP Internal Medicine; Visit Provider Internal Medicine
DX: E78.00 Pure hypercholesterolemia, unspecified (principal); F33.9 Major depressive disorder, recurrent, unspecified; G47.33 Obstructive sleep apnea (adult) (pediatric); Z90.5 Acquired absence of kidney; K59.09 Other constipation; K21.9 Gastro-esophageal reflux disease without esophagitis; M51.36 Other intervertebral disc degeneration, lumbar region; M25.59 Pain in other specified joint; I95.1 Orthostatic hypotension; G43.909 Migraine, unspecified, not intractable, without status migrainosus; E55.9 Vitamin D deficiency, unspecified; E65 Localized adiposity; R41.3 Other amnesia
CPT/HCPCS: 99214

== ENCOUNTER 2023-11-27 14:40 | Outpatient (AMB) | payer OTHER, SELFPAY ==
[2023-11-27 14:41] VITALS: BP 114/80; PULSE 62; O2SAT 98; BMI 29.6
--- NOTE | 2023-11-27 14:41 | MHC.OFFVIS ---
Vital Signs 11/27/23 14:41 Height 5 ft 2 in Weight 162 lb BMI 29.6 BP 114/80 Blood Pressure Location Rt brachial Position Sitting Pulse 62 Pulse Source Pulse Oximeter Pulse Oximetry (%) 98 Oxygen Delivery Method Room Air Intake Visit Reasons: M54.50 - Low back pain, unspecified Science Faculty Member Required: Yes Science Faculty Member Name: [id number] Allergies acetaminophen Adverse Reaction (Unknown, Verified 11/27/23 14:47) Unknown atorvastatin Adverse Reaction (Severe, Uncoded 11/27/23 14:47) elevated liver enzymes HPI Comments Details: Xenia is very pleasant 53 years old female who presents today in my office after 1 year of absence. She was under care of Joanna with sacroiliac joint problem and after that she was under my care, she received therapeutic sacroiliac joint injection on the right which gave her 50% pain improvement in 2021. After that she received diagnostic bilateral sacroiliac joint injection and unfortunately she was lost for the follow-up. Due to mental health crisis she was admitted to psychiatric facility and was not able to receive any injections. Now she is back requesting me to perform therapeutic sacroiliac joint injection. I will schedule her for therapeutic sacroiliac joint injection under sedation. This will be a bilateral procedure. [facility] Medical History Chronic kidney disease, stage III (moderate) Obesity (BMI 30-39.9) Renal cyst Diverticulosis Tubular adenoma Asthma Spondylosis of lumbar spine Sacroiliitis Dizziness of unknown etiology Chronic constipation Hx of schizophrenia Panic attacks PTSD (post-traumatic stress disorder) MIGUEL (obstructive sleep apnea) Dyspareunia Pyelonephritis Ingrown toenail Iron deficiency anemia Major depression, recurrent Anxiety Insomnia Tremor Orthostatic hypotension Incisional hernia without obstruction or gangrene Avascular necrosis of femoral head Bilateral carpal tunnel syndrome Peroneal neuropathy Lumbar degenerative disc disease Vitamin D deficiency GERD (gastroesophageal reflux disease) Migraine Hyperlipidemia Surgical History History of left nephrectomy (~1999) History of colonoscopy History of surgery Hx of cystoscopy History of bilateral breast reduction surgery History of hysterectomy History of cholecystectomy History of endoscopy (~06/2016) History of bladder repair surgery (~03/2015) S/P cystoscopy (~07/30/12) S/P panniculectomy History of hernia repair (~03/29/10) History of bladder surgery (~10/2009) History of gastric bypass (~2008) History of incisional hernia repair (~1999) Hx of umbilical hernia repair (~1999) H/O left nephrectomy S/P laparoscopic sleeve gastrectomy Family History Father Liver cancer Mother Breast cancer Sister Lung cancer Other Mental health problem Social History Household Members: Spouse and Family Housing: House Do you presently have visiting nurse or other home services: Yes Alcohol intake: never Patient Tobacco Use Status: Never used Tobacco e-Cigarette/Vaping Use: Never Used Second Hand Smoke Exposure: No Advance Directives Date on File: 07/12/21 service: No Current occupational status: disabled Sexual orientation: Straight/Heterosexual Cognitive needs: No Hearing needs: No Vision needs: Yes Female Reproductive History Menstrual Age of Menarche: 13 Review of Systems Const All systems reviewed & are unremarkable except as noted in HPI and below Physical Exam Vital Signs: Last Vital Signs Pulse 62 11/27/23 14:41 BP 114/80 11/27/23 14:41 Pulse Ox 98 11/27/23 14:41 Oxygen Delivery Method Room Air 11/27/23 14:41 BMI result Body Mass Index 29.6 Const General: comfortable, no acute distress, well developed, alert and awake Eyes Pupils: Equal, round and reactive pupils present EOM: EOMs intact bilaterally Chest Chest palpation & inspection: normal inspection of the chest Resp Effort & Inspection: normal respiratory effort, able to speak in complete sentences, normal respiratory pattern, no audible wheezes and no cough Cardio Jugular venous distension: no JVD Back/Spine/Pelvis Other: ? SACROILIAC JOINT?tenderness to palpation right SIJ, + glenny, Delphine finger,Gaenslen's,Compression/distraction positive on right.? INSPECTION:?normal curvature of spine.? RANGE OF MOTION?decreased side bending on right.? PALPATION:?no vertebral spine tenderness,sacroiliac joint tenderness on right.? STRAIGHT LEG RAISING TEST:?positive at 45 degrees on right in L4/5 distribution.? MOTOR SYSTEM:?5/5 bilateral lower extremities.? SENSORY EXAM:?normal to light touch and pinprick in C5-T1 and L2-S1,no dysethesias, reported paresthesias right L4/5 distribution.? REFLEXES:?symmetrical 2+.? GAIT:?favoring affected side.? Neuro Cranial nerves: Yes Equal, round and reactive pupils present Assessment & Plan Assessment & Plan (1) Sacroiliitis: Code(s): M46.1 - Sacroiliitis, not elsewhere classified Category: Medical (2) Spondylosis of lumbar spine: Code(s): M47.816 - Spondylosis without myelopathy or radiculopathy, lumbar region Category: Medical (3) Sacroiliac joint dysfunction of both sides: Code(s): M53.3 - Sacrococcygeal disorders, not elsewhere classified Category: Medical Plan The plan of care as above. I will schedule this patient for bilateral therapeutic sacroiliac joint injection under sedation. Next appointment is after the procedure for the follow-up. Coding Level of Care Code Est Pt Level 3 (47805) Diagnoses Sacroiliitis M46.1 Spondylosis of lumbar spine M47.816 Sacroiliac joint dysfunction of both sides M53.3
== END 2023-11-27 15:08 | disposition home or self-care (01) ==
PROVIDERS: PCP Internal Medicine; Visit Provider Anesthesiology
DX: M46.1 Sacroiliitis, not elsewhere classified (principal); M47.816 Spondylosis without myelopathy or radiculopathy, lumbar region; M53.3 Sacrococcygeal disorders, not elsewhere classified
CPT/HCPCS: 99214

== ENCOUNTER → 2023-11-27 14:40 | Outpatient (BNVA) | payer OTHER, SELFPAY | PROVIDERS: PCP Internal Medicine; Visit Provider Anesthesiology | DX: M46.1 Sacroiliitis, not elsewhere classified (principal); M47.816 Spondylosis without myelopathy or radiculopathy, lumbar region; M53.3 Sacrococcygeal disorders, not elsewhere classified | CPT/HCPCS: 99212 ==

== ENCOUNTER 2023-11-30 09:52 | Outpatient (REF) | payer OTHER, SELFPAY ==
--- NOTE | ~2023-11-30 | MM_ITS ---
EXAMINATION: MM SCREENING DIGITAL BREAST TOMOSYNTHESIS, BILATERAL CLINICAL INFORMATION: Screening. Asymptomatic. COMPARISON: Mammography: This study is compared with prior exams dating back to 2020. TECHNIQUE: Digital breast tomosynthesis is performed in both the craniocaudal and mediolateral oblique views along with computer-aided detection (CAD). Synthesized 2D images are generated from the tomosynthesis. FINDINGS: The breasts are almost entirely fatty (ACR BI-RADS breast composition Category a). There are no significant masses, abnormal calcifications, or other abnormalities. MM/MM tomosynthesis screening BI IMPRESSION: No mammographic evidence of malignancy. ASSESSMENT: BI-RADS BI-RADS 1 - Negative RECOMMENDATION: Routine annual mammography screening. 1 year F/U This examination should not preclude the clinical evaluation of a suspicious palpable abnormality. This patient's information was entered into a reminder system with a target due date for their next mammogram. Electronically signed by: Shu Roque MD 12/27/2023 11:59 AM EDT
--- NOTE | ~2023-11-30 | MM_ITS ---
EXAMINATION: BONE DENSITOMETRY CLINICAL INDICATION: Asymptomatic menopausal state. COMPARISON: This is the patient's baseline examination. TECHNIQUE: Using a [employer]fe DXA System (software version: 13.1) manufactured by [employer], dual-energy x-ray absorptiometry was performed of the lumbar spine and left hip. The images are of good technical quality. Summary results are attached. FINDINGS: LEFT FEMUR, NECK: BMD 0.637 g/cm2, Z-score -2.0, T-score -2.9, osteoporosis. LEFT FEMUR, TOTAL: BMD 0.693 g/cm2, Z-score -2.0, T-score -2.5, osteoporosis. AP SPINE L1-L4: BMD 0.827 g/cm2, Z-score -2.4, T-score -2.9, osteoporosis. IDENTIFIED RISK FACTORS: Menopause, hysterectomy, bilateral oophorectomy, dementia, parental hip fracture, glucocorticoids, low calcium intake, recurrent falls, secondary osteoporosis (partial gastrectomy). HISTORY OF FRACTURE: None listed. MEDICATIONS: Vitamin D. MM/XR DEXA axial skeleton IMPRESSION: 1. DIAGNOSIS: Osteoporosis based on the lowest T-score value of -2.9 in the lumbar spine and femoral neck applying World Health Organization criteria. 2. 10-YEAR FRACTURE RISK PREDICTION, FRAX: According to the guidelines, FRAX calculation should only be performed on patients in the osteopenia bone density category. Therefore, FRAX was not performed on this patient. 3. Treatment Recommendations: NOF guidelines recommend consideration for treatment in postmenopausal women and men age 50 and older presenting with the following: -A hip or vertebral (clinical or morphometric) fracture. -T-score less than or equal to -2.5 at the femoral neck or spine after appropriate evaluation to exclude secondary causes. -Low bone mass at the hip or spine and a 10-year fracture probability by FRAX of greater than or equal to 3% for hip fracture or greater than or equal to 20% for major osteoporotic fracture based on the [place] adapted WHO algorithm. 4. Other Recommendations: All treatment decisions require clinical judgment and consideration of individual patient factors, including patient preferences, comorbidities, previous drug use, risk factors not captured in the FRAX model (e.g. frailty, falls, vitamin D deficiency, increased bone turnover, interval significant decline in bone density) and possible under or overestimation of fracture risk by FRAX. Additional medical evaluation for secondary cause of low bone mineral density may be appropriate. FUTURE SCAN RECOMMENDATION: People with diagnosed cases of osteoporosis or at high risk for fracture should have regular bone mineral density tests. For patients eligible for Medicare, routine testing is allowed once every 2 years. The testing frequency can be increased to one year for patients who have rapidly progressing disease, those who are receiving or discontinuing medical therapy to restore bone mass, or have additional risk factors.
== END 2023-11-30 09:53 | disposition home or self-care (01) ==
LOC: HO.MAMMO 09:52
PROVIDERS: PCP Internal Medicine; Visit Provider Internal Medicine
DX: Z12.31 Encounter for screening mammogram for malignant neoplasm of breast (principal); Z13.820 Encounter for screening for osteoporosis; Z78.0 Asymptomatic menopausal state
CPT/HCPCS: 77063; 77067; 77080

== ENCOUNTER → 2023-11-30 10:45 | Outpatient (BNV) | payer OTHER, SELFPAY | PROVIDERS: PCP Internal Medicine; Visit Provider Radiology Diagnostic Radiology | DX: Z12.31 Encounter for screening mammogram for malignant neoplasm of breast (principal) | CPT/HCPCS: 77063; 77067 ==

== ENCOUNTER 2023-12-05 11:22 | Outpatient (AMB) | payer OTHER, SELFPAY ==
--- NOTE | 2023-12-05 11:41 | MHC.OFFVIS ---
Vital Signs 12/05/23 11:44 Height 5 ft 2 in Weight 160 lb BMI 29.3 BP 106/55 L Blood Pressure Location Rt radial Position Sitting Pulse 47 L Intake Visit Reasons: 3 month follow up Intake Note: Xenia presents in the office as a 3 month follow up. CC: She states that she is having pains in the stomach and she is having constipation. Insurance Law Specialist Required: Yes Insurance Law Specialist Name: Mariusz Landry Allergies acetaminophen Adverse Reaction (Unknown, Verified 12/05/23 11:45) Unknown atorvastatin Adverse Reaction (Severe, Uncoded 12/05/23 11:45) elevated liver enzymes HPI HPI 3 month follow up: Details: LAST VISIT: Constipation Diverticulosis GERD (gastroesophageal reflux disease) Transaminitis Nausea Postprandial epigastric pain Plan Continue omeprazole daily. Avoid dietary triggers and late night snacking. Staying upright for minimal 3 hours after meals discussed with patient. Patient will increase fluid intake and activity to promote better bowel motility. Continue Linzess in the morning and Dulcolax in the evening. Patient will return to the office in 3 months, sooner on as needed basis. Patient is agreeable to this plan and verbalizes understanding of instructions. She was given the opportunity to ask questions and all questions answered. ? Thank you for allowing me to participate in her care Medications New bisacodyl (Dulcolax (bisacodyl)) 10 mg (2 x 5 mg) PO BEDTIME 180 tabs 4RF TODAY'S VISIT Patient is here today for follow-up. Patient reports that she continues to have acid reflux and abdominal pain and bloating. Patient reports that she is moving her bowels, however she does not feel like she empties her bowels completely. Postprandial epigastric pain. Currently on omeprazole feels like it is not working. Patient denies any nausea or vomiting. Reports occasional dyspepsia without dysphagia or odynophagia. Patient denies any melena, hematochezia. Patient reports that she notice increased pain in the middle of her abdomen just around the umbilical area. Patient denies any fever or chills. Denies any other GI concerning symptoms. [facility] Medical History Chronic kidney disease, stage III (moderate) Obesity (BMI 30-39.9) Renal cyst Diverticulosis Tubular adenoma Asthma Spondylosis of lumbar spine Sacroiliitis Dizziness of unknown etiology Chronic constipation Hx of schizophrenia Panic attacks PTSD (post-traumatic stress disorder) MIGUEL (obstructive sleep apnea) Dyspareunia Pyelonephritis Ingrown toenail Iron deficiency anemia Major depression, recurrent Anxiety Insomnia Tremor Orthostatic hypotension Incisional hernia without obstruction or gangrene Avascular necrosis of femoral head Bilateral carpal tunnel syndrome Peroneal neuropathy Lumbar degenerative disc disease Vitamin D deficiency GERD (gastroesophageal reflux disease) Migraine Hyperlipidemia Surgical History History of left nephrectomy (~1999) History of colonoscopy History of surgery Hx of cystoscopy History of bilateral breast reduction surgery History of hysterectomy History of cholecystectomy History of endoscopy (~06/2016) History of bladder repair surgery (~03/2015) S/P cystoscopy (~07/30/12) S/P panniculectomy History of hernia repair (~03/29/10) History of bladder surgery (~10/2009) History of gastric bypass (~2008) History of incisional hernia repair (~1999) Hx of umbilical hernia repair (~1999) H/O left nephrectomy S/P laparoscopic sleeve gastrectomy Family History Father Liver cancer Mother Breast cancer Sister Lung cancer Other Mental health problem Social History Household Members: Spouse and Family Housing: House Do you presently have visiting nurse or other home services: Yes Alcohol intake: never Patient Tobacco Use Status: Never used Tobacco e-Cigarette/Vaping Use: Never Used Second Hand Smoke Exposure: No Advance Directives Date on File: 07/12/21 service: No Current occupational status: disabled Sexual orientation: Straight/Heterosexual Cognitive needs: No Hearing needs: No Vision needs: Yes Female Reproductive History Menstrual Age of Menarche: 13 Review of Systems Const Denies weight gain and Denies weight loss ENT Reports no additional complaints, Denies dysphagia and Denies odynophagia Card Reports no additional complaints Resp Reports no additional complaints GI Reports abdominal pain (Occasional, epigastric and LLQ periumbilical), Denies belching, Denies melena, Reports bloating, Denies change in bowel habits, Reports constipation, Denies dysphagia, Denies excessive flatus, Denies dyspepsia, Reports heartburn (Occasional), Denies diarrhea, Denies loose stools, Denies nausea, Denies odynophagia and Denies vomiting Reports no additional complaints Musc Reports no additional complaints Neuro Reports no additional complaints Psych Reports no additional complaints Endo Reports no additional complaints Physical Exam Vital Signs: Last Vital Signs Pulse 47 L 12/05/23 11:44 BP 106/55 L 12/05/23 11:44 BMI result Body Mass Index 29.3 Const General: healthy appearing, no acute distress and well developed Nutritional Appearance: well nourished Orientation/consciousness: patient oriented x3 Resp Effort & Inspection: normal respiratory effort, able to speak in complete sentences, no tracheal deviation and symmetric chest movement Auscultation: clear to auscultation bilaterally Cardio Rate: regular rate (58 apical, checked with stethoscope) GI Inspection: Yes normal to inspection and No distended Palpation (GI): Soft to palpation, not firm, Tenderness to palpation present (GI) (Periumbilical area) and Hernia present umbilical Auscultation: normal bowel sounds General: Yes no CVA tenderness Back/Spine/Pelvis Back: no CVA tenderness Skin General skin exam: elasticity normal, turgor normal and dry skin Neuro General: patient oriented x3 Psych Appearance: grossly normal Mental Status: mental status grossly normal Assessment & Plan Assessment & Plan (1) Constipation: Code(s): K59.00 - Constipation, unspecified Category: Medical Qualifiers: Constipation type: drug induced constipation Qualified Code(s): K59.03 - Drug induced constipation (2) Diverticulosis: Code(s): K57.90 - Diverticulosis of intestine, part unspecified, without perforation or abscess without bleeding Category: Medical (3) GERD (gastroesophageal reflux disease): Code(s): K21.9 - Gastro-esophageal reflux disease without esophagitis Category: Medical Qualifiers: Esophagitis presence: without esophagitis Qualified Code(s): K21.9 - Gastro-esophageal reflux disease without esophagitis (4) Transaminitis: Code(s): R74.01 - Elevation of levels of liver transaminase levels Category: Medical (5) Nausea: Code(s): R11.0 - Nausea (6) Postprandial epigastric pain: Code(s): R10.13 - Epigastric pain (7) Umbilical hernia: Code(s): K42.9 - Umbilical hernia without obstruction or gangrene Qualifiers: Obstruction and gangrene presence: without obstruction or gangrene Qualified Code(s): K42.9 - Umbilical hernia without obstruction or gangrene Plan Patient will stop taking omeprazole. Will start pantoprazole half an hour before breakfast. Avoid dietary triggers and late night snacking. Staying upright for minimum 3 hours after meals discussed with patient. Continue Linzess and Dulcolax. Increase fluid intake and activity to promote better bowel motility. Patient has small umbilical hernia referral to General surgery. Patient will call the office if she will have increase pain nausea or vomiting. Orders: Referrals General Surgery Referral K42.9 - Umbilical hernia without obstruction or gangrene Medications: New pantoprazole take one tablet half an hour before breakfast 40 mg PO DAILY 90 tabs 2RF K21.9 - Gastro-esophageal reflux disease without esophagitis Discontinued omeprazole Discontinued Reason: Doctor's Order 20 mg PO DAILY 90 caps 3RF K21.9 - Gastro-esophageal reflux disease without esophagitis Coding Level of Care Code Est Pt Level 4 (56319) Diagnoses Drug-induced constipation K59.03 Constipation type: drug induced constipation Diverticulosis K57.90 Gastroesophageal reflux disease without esophagitis K21.9 Esophagitis presence: without esophagitis Transaminitis R74.01 Nausea R11.0 Postprandial epigastric pain R10.13 Umbilical hernia without obstruction and without gangrene K42.9 Obstruction and gangrene presence: without obstruction or gangrene Time Spent (min) 35 Comment 20 minutes spent with patient and additional 15 minutes spent reviewing her records
[2023-12-05 11:44] VITALS: BP 106/55; PULSE 47; BMI 29.3
== END 2023-12-05 12:24 | disposition home or self-care (01) ==
PROVIDERS: PCP Internal Medicine; Visit Provider Nurse Practitioner Family
DX: K59.03 Drug induced constipation (principal); K57.90 Diverticulosis of intestine, part unspecified, without perforation or abscess without bleeding; K21.9 Gastro-esophageal reflux disease without esophagitis; R74.01 Elevation of levels of liver transaminase levels; R11.0 Nausea; R10.13 Epigastric pain; K42.9 Umbilical hernia without obstruction or gangrene
CPT/HCPCS: 99214

== ENCOUNTER → 2023-12-05 11:22 | Outpatient (BNVA) | payer OTHER, SELFPAY | PROVIDERS: PCP Internal Medicine; Visit Provider Nurse Practitioner Family | DX: K59.03 Drug induced constipation (principal); K57.90 Diverticulosis of intestine, part unspecified, without perforation or abscess without bleeding; K21.9 Gastro-esophageal reflux disease without esophagitis; K42.9 Umbilical hernia without obstruction or gangrene; R74.01 Elevation of levels of liver transaminase levels; R11.0 Nausea; R10.13 Epigastric pain | CPT/HCPCS: 99212 ==

== ENCOUNTER 2023-12-13 08:45 | Outpatient (AMB) | payer OTHER, SELFPAY ==
--- NOTE | 2023-12-13 08:47 | A.OFFVIS_ITS ---
Vital Signs 12/13/23 08:53 Height 5 ft 2 in Weight 163 lb BMI 29.8 BP 112/70 Blood Pressure Location Rt brachial Position Sitting Pulse 59 Intake Visit Reasons: umbilical hernia w/o obstruction or gangrene Intake Note: Patient referred by Baylee CARRERO for umbilical hernia. Present for months. Patient c/o: painful to touch. 2nd concern big mass on lt flank area present for yrs. Becoming painful, enlarging. Technician Support Association Required: Yes Technician Support Association Name: Anusha LAMB Accompanied by: Self / Same As Patient Allergies acetaminophen Adverse Reaction (Unknown, Verified 12/13/23 08:51) Unknown atorvastatin Adverse Reaction (Severe, Uncoded 12/13/23 08:51) elevated liver enzymes Medication List - Last Reconciled 12/13/23 by Gary Mcgill MD albuterol sulfate 90 mcg/actuation (ProAir HFA) 2 puffs inhalation Q6H PRN 30 days aripiprazole 5 mg PO DAILY bisacodyl (Dulcolax (bisacodyl)) 10 mg (2 x 5 mg) PO BEDTIME blood pressure monitor As directed cholecalciferol (vitamin D3) (Vitamin D3) 25 mcg PO DAILY 90 days clotrimazole 1% 1 appl topical BID [CPAP device and all related supplies As directed] cyanocobalamin (vitamin B-12) 500 mcg PO DAILY diphenhydramine HCl (Banophen) 25 mg PO TID PRN diphenhydramine HCl (Banophen) 50 mg PO BEDTIME docusate sodium 100 mg PO DAILY estradiol 0.01%(0.1mg/gram) vaginally 3 times a week; pea sized amount to urethra 3 times a week 30 days ferrous sulfate 325 mg PO DAILY gabapentin 800 mg (2 x 400 mg) PO TID 30 days linaclotide (Linzess) 145 mcg PO DAILY lorazepam 1 mg PO BID PRN lurasidone 20 mg PO DAILY meclizine 25 mg PO TID PRN 30 days melatonin 5 mg PO BEDTIME PRN methylcellulose (laxative) (Citrucel) 500 mg PO DAILY midodrine 10 mg PO TID mirtazapine 15 mg PO BEDTIME mometasone 0.1% 1 appl topical DAILY PRN naproxen 500 mg PO DAILY nystatin 1 mL PO TID 10 days pantoprazole 40 mg PO DAILY polyethylene glycol 3350 (Miralax) 17 grams PO DAILY potassium citrate ER 5 mEq PO DAILY rosuvastatin 5 mg PO DAILY sumatriptan succinate mg PO topiramate 100 mg PO DAILY tramadol 100 mg (2 x 50 mg) PO Q8H PRN 30 days HPI Comments Details: Patient presents for evaluation of what she thinks are a ventral and left flank hernia. She has had longstanding history of pain and discomfort in these areas. Because of progression of symptoms, patient presents here for further evaluation. She has no other GI issues or complaints. She is tolerating diet. Having regular bowel habits. No significant heavy lifting. Chart was reviewed and patient evaluated [facility] Medical History Chronic kidney disease, stage III (moderate) Obesity (BMI 30-39.9) Renal cyst Diverticulosis Tubular adenoma Asthma Spondylosis of lumbar spine Sacroiliitis Dizziness of unknown etiology Chronic constipation Hx of schizophrenia Panic attacks PTSD (post-traumatic stress disorder) MIGUEL (obstructive sleep apnea) Dyspareunia Pyelonephritis Ingrown toenail Iron deficiency anemia Major depression, recurrent Anxiety Insomnia Tremor Orthostatic hypotension Incisional hernia without obstruction or gangrene Avascular necrosis of femoral head Bilateral carpal tunnel syndrome Peroneal neuropathy Lumbar degenerative disc disease Vitamin D deficiency GERD (gastroesophageal reflux disease) Migraine Hyperlipidemia Surgical History History of left nephrectomy (~1999) History of colonoscopy History of surgery Hx of cystoscopy History of bilateral breast reduction surgery History of hysterectomy History of cholecystectomy History of endoscopy (~06/2016) History of bladder repair surgery (~03/2015) S/P cystoscopy (~07/30/12) S/P panniculectomy History of hernia repair (~03/29/10) History of bladder surgery (~10/2009) History of gastric bypass (~2008) History of incisional hernia repair (~1999) Hx of umbilical hernia repair (~1999) H/O left nephrectomy S/P laparoscopic sleeve gastrectomy Family History Father Liver cancer Mother Breast cancer Sister Lung cancer Other Mental health problem Social History Household Members: Spouse and Family Housing: House Do you presently have visiting nurse or other home services: Yes Alcohol intake: never Patient Tobacco Use Status: Never used Tobacco e-Cigarette/Vaping Use: Never Used Second Hand Smoke Exposure: No Advance Directives Date on File: 07/12/21 service: No Current occupational status: disabled Sexual orientation: Straight/Heterosexual Cognitive needs: No Hearing needs: No Vision needs: Yes Female Reproductive History Menstrual Age of Menarche: 13 Physical Exam Vital Signs: Last Vital Signs Pulse 59 12/13/23 08:53 BP 112/70 12/13/23 08:53 BMI result Body Mass Index 29.8 GI Other: Patient was examined both supine and standing with Valsalva. Very corpulent abdomen. Proximally 2-3 cm irreducible umbilical hernia. ?question of a small left flank hernia. Exam is somewhat limited because of the patient's large size. Assessment & Plan Assessment & Plan (1) Ventral hernia: Code(s): K43.9 - Ventral hernia without obstruction or gangrene Category: Surgical Plan: Ever current plan is to arrange for CT scan of the abdomen pelvis to look for any hernias and direct further interventions studies based on these. Patient understands and all questions answered. Patient will see me after the above- mentioned radiological study. (2) Flank hernia: Code(s): K45.8 - Other specified abdominal hernia without obstruction or gangrene Category: Surgical Plan: See above Orders: Orders CT abdomen pelvis wo/w IV con Today K43.9 - Ventral hernia without obstruction or gangrene, K45.8 - Other specified abdominal hernia without obstruction or gangrene Coding Level of Care Code New Pt Level 4 (26218) Diagnoses Ventral hernia K43.9 Flank hernia K45.8
[2023-12-13 08:53] VITALS: BP 112/70; PULSE 59; BMI 29.8
== END 2023-12-13 08:57 | disposition home or self-care (01) ==
PROVIDERS: PCP Internal Medicine; Referring Provider Nurse Practitioner Family; Visit Provider Surgery
DX: K43.9 Ventral hernia without obstruction or gangrene (principal); K45.8 Other specified abdominal hernia without obstruction or gangrene
CPT/HCPCS: 99203

== ENCOUNTER → 2023-12-13 08:45 | Outpatient (BNVA) | payer OTHER, SELFPAY | PROVIDERS: PCP Internal Medicine; Referring Provider Nurse Practitioner Family; Visit Provider Surgery | DX: K43.9 Ventral hernia without obstruction or gangrene (principal); K45.8 Other specified abdominal hernia without obstruction or gangrene | CPT/HCPCS: 99202 ==

== ENCOUNTER 2023-12-28 12:35 | Outpatient (REF) | payer OTHER, SELFPAY ==
[2023-12-28 13:41] LABS: Blood Urea Nitrogen 19 mg/dL (9-16); Estimated Glomerular Filt Rate 49
== END 2023-12-28 12:36 | disposition home or self-care (01) ==
LOC: HO.LAB 12:35
PROVIDERS: PCP Internal Medicine; Visit Provider Surgery
DX: K43.9 Ventral hernia without obstruction or gangrene (principal)
CPT/HCPCS: 36415; 82565; 84520

== ENCOUNTER 2024-01-04 16:13 | Emergency (ER) | payer OTHER, SELFPAY ==
--- NOTE | ~2024-01-04 | CT_ITS ---
EXAMINATION: CT HEAD WITHOUT CONTRAST CLINICAL INFORMATION: Change in mental status. COMPARISON: CT head dated 06/29/2023. TECHNIQUE: Contiguous axial imaging was performed from the skull base to vertex without intravenous administration of contrast. This CT examination was performed using dose optimization techniques as appropriate, variously including the following: *Automated exposure control *Adjustment of mA and/or kV according to patient size (this includes techniques or standardized protocols for targeted exams where dose is matched to indication/reason for exam; i.e. extremities or head) *Use of iterative reconstruction technique DLP: 604 mGy-cm FINDINGS: There is no acute intracranial hemorrhage. There is no evidence of acute/subacute cerebral or cerebellar infarction. There is no midline shift or mass effect. No extra-axial fluid collection. The ventricles are normal in size. The orbits are symmetric and within normal limits. The calvarium is intact. The mastoid air cells are clear. Visualized paranasal sinuses are clear. CT/CT head/brain wo IV con IMPRESSION: No acute intracranial pathology. Electronically signed by: Felipe Marroquin DO 01/04/2024 06:14 PM EDT
[2024-01-04 16:25] VITALS: BP 118/82; BP 123/72; PULSE 60; PULSE 68; RESP 22; TEMP 36.8; O2SAT 100; O2SAT 99; BMI 26.0
--- NOTE | 2024-01-04 16:29 | ECG_ITS ---
Test Reason : ams Blood Pressure : / mmHG Vent. Rate : 049 BPM Atrial Rate : 049 BPM P-R Int : 124 ms QRS Dur : 078 ms QT Int : 490 ms P-R-T Axes : 057 068 046 degrees QTc Int : 442 ms Sinus bradycardia Low voltage QRS Borderline ECG When compared with ECG of 29-JUN-2023 14:15, No significant change was found Referred By: Deneen Boothe Electronically Signed By:TRISTAN NAM
[2024-01-04 16:34] LABS: Glucose, Whole Blood 77 mg/dL (60-115)
--- NOTE | 2024-01-04 16:38 | PC.NURSE ---
patient alert now, responding appropriately to questions. complaining of dizziness and numbness in her fingers. assisted onto the bedpan w/out incident, patient able to roll onto her side without assistance
[2024-01-04 16:50] LABS: MANUAL DIFF FLAG NO
[2024-01-04 16:53] LABS: Basophils Absolute Auto 0.1 X10*3/uL (0.0-0.2); Basophils Percent Auto 0.6 % (0-2); Eosinophils Absolute Auto 0.1 X10*3/uL (0.0-0.4); Eosinophils Percent Auto 0.8 % (0-4); Hematocrit 44.2 % (37.0-47.0); Hemoglobin 15.1 g/dl (12.0-16.0); Imm Gran Abs Auto 0.02 X10*3/uL (0.00-0.03); Imm Gran Pct Auto 0.2 % (0.0-0.4); Lymphocytes Absolute Auto 2.9 X10*3/uL (1.2-4.9); Lymphocytes Percent Auto 33.3 % (20-40); Mean Corpuscular HGB Conc 34.2 g/dl (31.0-35.0); Mean Corpuscular Hemoglobin 33.7 pg (27.0-33.0); Mean Corpuscular Volume 98.7 fL (80.0-98.0); Mean Platelet Volume 9.3 fL (9.4-12.3); Monocytes Absolute Auto 0.6 X10*3/uL (0.1-1.2); Monocytes Percent Auto 6.6 % (2-11); Neutrophils Absolute Auto 5.1 x10*3/uL (2.0-8.3); Neutrophils Percent Auto 58.5 % (45-73); Platelet Count 269 X10*3/uL (160-400); Red Blood Count 4.48 X10*6/uL (4.20-5.50); Red Cell Distribution Width 11.4 % (11.0-16.0); White Blood Count 8.8 X10*3/uL (4.8-10.8)
[2024-01-04 17:03] LABS: Ethanol < 10 mg/dL
[2024-01-04 17:13] LABS: Alanine Aminotransferase 28 U/L (0-31); Albumin Level 3.9 g/dL (3.5-5.0); Alkaline Phosphatase 129 U/L (39-117); Anion Gap 16 (12-20); Aspartate Amino Transferase 24 U/L (5-31); Bilirubin Total 0.6 mg/dL (0.0-1.0); Blood Urea Nitrogen 16 mg/dL (9-16); Calcium 9.5 mg/dL (8.4-10.2); Carbon Dioxide 16 mmol/L (22-29); Chloride 115 mmol/L (96-108); Creatinine Clr Calc Pharmacy 55.2; Estimated Glomerular Filt Rate 51; Glucose Random 88 mg/dL (60-115); Magnesium 2.1 mg/dL (1.6-2.6); Potassium 4.6 mmol/L (3.3-5.1); Sodium 142 mmol/L (135-145); Total Protein 6.8 g/dL (6.5-8.0)
--- NOTE | 2024-01-04 17:42 | PC.NURSE ---
unable to obtain urine sample d/t patient being unable to urinate in the bedpan and incontinence of urine.
[2024-01-04 18:04] VITALS: BP 113/46; PULSE 53; RESP 18; TEMP 36.9; O2SAT 100
[2024-01-04 18:12] LABS: Appearance Urine Cloudy; Color Urine Yellow; Glucose Urine UA Negative (Negative); Leukocyte Esterase Urine Small (1+) (Negative); Nitrite Urine Positive (Negative); PH 7.5 (5.0-9.0); Specific Gravity - Urine 1.015 (1.005-1.025); UMIC TRIGGER UACC YES; Urine Blood Negative (Negative); Urine Ketones 80 mg/dL (Negative); Urine Protein Negative (Neg-Trace)
[2024-01-04 18:18] LABS: Bacteria Urine 4+ (None Seen); Hyaline Casts Urine 0-2 /LPF (0-2); RBC Urine 0-2 /HPF (0-2); Squamous Epithelial Cell Urine 0-2 /HPF (0-2); UACC Culture Trigger YES
--- NOTE | 2024-01-04 18:25 | ED.AMS ---
HPI - Altered Mental Status General Chief Complaint: Altered Mental Status Stated Complaint: BI LAT WEAKNESS, LKWT 8PM LAST NIGHT, STROKE ALERT Time Seen by Provider: 01/04/24 16:19 Source: patient, family and EMS Limitations: language barrier History of Present Illness ED Provider: Deneen Boothe PA-C HPI narrative: 53-year-old female with history of HLD, Chronic kidney disease, chronic pain, anxiety, depression, PTSD, prior psychosis requiring psychiatric admission, presents as a stroke alert. Patient began to complain of dizziness at home. She stated, ?my whole body is numb and tingly?. Family called EMS to the scene. EMS states that when they arrived, the patient stopped talking and would not engage in conversation. Upon arrival, patient continues to not engage in conversation, she will not speak, she will shake her head yes and no, she will not look at me directly. Construction Contractor is at bedside, she will look at the state wildlife officer and answer their questions, by shaking her head ?yes and no?. The daughter is here as well, she denies that her mother is under any new psychosocial stressors, has not been recently ill, no fevers, no cough or cold symptoms. They deny that she has an alcohol abuse history, she does not use illicit substances. Related Data Home Medications ?Medication ?Instructions ?Recorded ?Confirmed polyethylene glycol 3350 17 gram 17 g PO DAILY 08/19/22 12/13/23 oral powder packet (Miralax) lorazepam 1 mg tablet 1 mg PO BID PRN 11/02/22 12/13/23 aripiprazole 5 mg tablet 5 mg PO DAILY 06/13/23 12/13/23 potassium citrate 5 mEq (540 mg) 5 meq PO DAILY 06/13/23 12/13/23 tablet,extended release melatonin 5 mg tablet 5 mg PO BEDTIME PRN 07/14/23 12/13/23 diphenhydramine HCl 50 mg capsule 50 mg PO BEDTIME 08/24/23 12/13/23 (Banophen) lurasidone 20 mg tablet 20 mg PO DAILY 10/19/23 12/13/23 mirtazapine 15 mg tablet 15 mg PO BEDTIME 12/05/23 12/13/23 naproxen 500 mg tablet 500 mg PO DAILY 12/05/23 12/13/23 sumatriptan succinate 50 mg tablet mg PO 12/05/23 12/13/23 topiramate 100 mg tablet 100 mg PO DAILY 12/05/23 12/13/23 Previous Rx's ?Medication ?Instructions ?Recorded CPAP device and all related #1 ea 06/03/22 supplies cyanocobalamin (vitamin B-12) 500 500 mcg PO DAILY #30 tabs 06/03/22 mcg tablet clotrimazole 1 % topical cream 1 appl topical BID #45 grams 09/08/22 albuterol sulfate 90 mcg/actuation 2 puff inhalation Q6H PRN 01/22/23 aerosol inhaler (ProAir HFA) shortness of breath or wheezing 30 days #8.5 grams linaclotide 145 mcg capsule 145 mcg PO DAILY #30 caps 06/21/23 (Linzess) nystatin 100,000 unit/mL oral 1 ml PO TID 10 days #30 mL 06/21/23 suspension blood pressure monitor #1 ea 07/13/23 docusate sodium 100 mg capsule 100 mg PO DAILY #30 caps 07/26/23 methylcellulose (laxative) 500 mg 500 mg PO DAILY #30 tabs 07/26/23 tablet (Citrucel) bisacodyl 5 mg tablet,delayed 10 mg (2 x 5 mg) PO BEDTIME #180 08/30/23 release (Dulcolax (bisacodyl)) tabs rosuvastatin 5 mg tablet 5 mg PO DAILY #90 tabs 08/31/23 cholecalciferol (vitamin D3) 25 25 mcg PO DAILY 90 days #90 caps 09/27/23 mcg (1,000 unit) capsule (Vitamin D3) diphenhydramine HCl 25 mg capsule 25 mg PO TID PRN allergy symptoms 10/03/23 (Banophen) #90 caps estradiol 0.01% (0.1 mg/gram) See Rx Instructions vaginal 3XW 30 10/04/23 vaginal cream days #42.5 grams tramadol 50 mg tablet 100 mg (2 x 50 mg) PO Q8H PRN 11/13/23 severe pain 30 days #180 tabs mometasone 0.1 % topical cream 1 appl topical DAILY PRN rash #45 11/30/23 grams pantoprazole 40 mg tablet,delayed 40 mg PO DAILY #90 tabs 12/05/23 release ferrous sulfate 325 mg (65 mg 325 mg PO DAILY #90 tabs 12/31/23 iron) tablet gabapentin 400 mg capsule 800 mg (2 x 400 mg) PO TID 30 days 01/03/24 #180 caps cephalexin 500 mg capsule 500 mg PO BID #14 caps 01/04/24 meclizine 25 mg tablet 25 mg PO TID PRN dizziness 30 days 01/04/24 #90 tabs midodrine 10 mg tablet 10 mg PO TID #30 tabs 01/04/24 Allergies Allergy/AdvReac Type Severity Reaction Status Date / Time acetaminophen AdvReac Unknown Unknown Verified 01/04/24 16:27 atorvastatin AdvReac Severe elevated Uncoded 12/13/23 08:51 liver enzymes Review of Systems Review of Systems: Yes all other systems are reviewed and are negative Constitutional: Constitutional: Denies fever(s) Cardiovascular: Cardiovascular: Denies chest pain and Denies dyspnea Respiratory: Respiratory: Denies cough and Denies dyspnea Gastrointestinal: Gastrointestinal: Denies diarrhea, Denies nausea and Denies vomiting Musculoskeletal: Musculoskeletal: Reports numbness and Reports tingling Neurologic: Reports numbness and Reports tingling PMFSH Past Medical History Attestation statement: The following information was validated with the patient. Medical History Chronic kidney disease, stage III (moderate) Obesity (BMI 30-39.9) Renal cyst Diverticulosis Tubular adenoma Asthma Spondylosis of lumbar spine Sacroiliitis Dizziness of unknown etiology Chronic constipation Hx of schizophrenia Panic attacks PTSD (post-traumatic stress disorder) MIGUEL (obstructive sleep apnea) Dyspareunia Pyelonephritis Ingrown toenail Iron deficiency anemia Major depression, recurrent Anxiety Insomnia Tremor Orthostatic hypotension Incisional hernia without obstruction or gangrene Avascular necrosis of femoral head Bilateral carpal tunnel syndrome Peroneal neuropathy Lumbar degenerative disc disease Vitamin D deficiency GERD (gastroesophageal reflux disease) Migraine Hyperlipidemia Surgical History History of left nephrectomy (~1999) History of colonoscopy History of surgery Hx of cystoscopy History of bilateral breast reduction surgery History of hysterectomy History of cholecystectomy History of endoscopy (~06/2016) History of bladder repair surgery (~03/2015) S/P cystoscopy (~07/30/12) S/P panniculectomy History of hernia repair (~03/29/10) History of bladder surgery (~10/2009) History of gastric bypass (~2008) History of incisional hernia repair (~1999) Hx of umbilical hernia repair (~1999) H/O left nephrectomy S/P laparoscopic sleeve gastrectomy Family History Family History Father Liver cancer Mother Breast cancer Sister Lung cancer Other Mental health problem Social History Social History Household Members: Spouse and Family Housing: House Do you presently have visiting nurse or other home services: Yes Alcohol intake: never Patient Tobacco Use Status: Never used Tobacco e-Cigarette/Vaping Use: Never Used Second Hand Smoke Exposure: No Advance Directives: Yes Advance Directives on File: Yes Advance Directives Date on File: 07/12/21 Do you have a plan to hurt others: No Plan service: No Current occupational status: disabled Sexual orientation: Straight/Heterosexual Cognitive needs: No Hearing needs: No Vision needs: Yes Physical Exam ED Vital Signs: Vital Signs - 24 hr 01/04/24 20:23 01/04/24 21:04 Temperature 99.1 F 99.1 F Pulse Rate 77 77 Respiratory Rate 19 19 Blood Pressure 107/63 107/63 Pulse Oximetry 97 97 Oxygen Delivery Method Room Air Room Air BMI result Body Mass Index 26.0 Const Other: Alert Orientation/consciousness: patient oriented x3 Eyes Other: Extraocular eye movements intact, no gaze deviation Resp Other: Nonlabored respiration Cardio Other: Normal peripheral perfusion Skin Other: Warm dry no rash Neuro Other: Patient began interacting with staff and state wildlife officer completely shortly after being placed into a room. Strength 5/5 bilateral upper and lower extremities, she is ambulating with normal steady gait, no ataxia noted General: patient oriented x3, gait normal, tone normal, no focal motor deficits and CN's II-XI intact bilaterally Psych Other: Flat affect Medications Administered Discontinued Medications Generic Name Dose Route Start Last Admin Trade Name Freq PRN Reason Stop Dose Admin Cephalexin HCl 500 mg 01/04/24 18:28 01/04/24 18:45 Cephalexin 500 Mg Capsule PO 01/04/24 18:29 500 mg ONCE ONE Administration Medical Decision Making Medical Decision Making MDM Narrative: 53-year-old female with history of HLD, Chronic kidney disease, chronic pain, anxiety, depression, PTSD, prior psychosis requiring psychiatric admission, presents as a stroke alert. Patient began to complain of dizziness at home. She stated, ?my whole body is numb and tingly?. Family called EMS to the scene. EMS states that when they arrived, the patient stopped talking and would not engage in conversation. Upon arrival, patient continues to not engage in conversation, she will not speak, she will shake her head yes and no, she will not look at me directly. Construction Contractor is at bedside, she will look at the state wildlife officer and answer their questions, by shaking her head ?yes and no?. The daughter is here as well, she denies that her mother is under any new psychosocial stressors, has not been recently ill, no fevers, no cough or cold symptoms. They deny that she has an alcohol abuse history, she does not use illicit substances. Problem: Psychiatric illness, age, hyperlipidemia and chronic kidney disease History: Per patient's daughter and EMS I have considered the following differential diagnoses: CVA, conversion disorder, new psychosis, drug/alcohol intoxication Plan: This is not a stroke. When patient arrives, she is purposely not making eye contact with me, she will look at the state wildlife officer and engage in conversation by shaking her head. Furthermore, when I attempt to move her extremities, she is tensing against each activity I attempt to perform. She then spontaneously returned to her baseline. I feel that this is completely behavioral. I will obtain a CT of the brain, I am considering this more of an altered mental status, it will rule out tumor burden, I have absolutely no suspicion for intracranial hemorrhage. We will screen basic labs, serum ethanol and U tox, this may be substance induced. We will obtain a urinalysis as well, perhaps she has a UTI. I have independently reviewed the following tests: Labs: No leukocytosis, not anemic, no electrolyte abnormality, serum ethanol negative, urine infected .... We will treat with Keflex EKG: Sinus bradycardia, rate of 59, no ischemic changes no ectopy, QTC 442, CT brain:ECHNIQUE: Contiguous axial imaging was performed from the skull base to vertex without intravenous administration of contrast. This CT examination was performed using dose optimization techniques as appropriate, variously including the following: *Automated exposure control *Adjustment of mA and/or kV according to patient size (this includes techniques or standardized protocols for targeted exams where dose is matched to indication/reason for exam; i.e. extremities or head) *Use of iterative reconstruction technique DLP: 604 mGy-cm FINDINGS: There is no acute intracranial hemorrhage. There is no evidence of acute/subacute cerebral or cerebellar infarction. There is no midline shift or mass effect. No extra-axial fluid collection. The ventricles are normal in size. The orbits are symmetric and within normal limits. The calvarium is intact. The mastoid air cells are clear. Visualized paranasal sinuses are clear. CT/CT head/brain wo IV con IMPRESSION: No acute intracranial pathology. Electronically signed by: Felipe Marroquin DO 01/04/2024 06:14 PM EDT RP Lab Data 01/04/24 16:46 01/04/24 16:46 Labs: Lab Results 01/04/24 01/04/24 01/04/24 Range/Units 16:29 16:46 18:00 WBC 8.8 (4.8-10.8) X10*3/uL RBC 4.48 (4.20-5.50) X10*6/uL Hgb 15.1 (12.0-16.0) g/dl Hct 44.2 (37.0-47.0) % MCV 98.7 H (80.0-98.0) fL MCH 33.7 H (27.0-33.0) pg MCHC 34.2 (31.0-35.0) g/dl RDW 11.4 (11.0-16.0) % Plt Count 269 (160-400) X10*3/uL MPV 9.3 L (9.4-12.3) fL Immature Gran % (Auto) 0.2 (0.0-0.4) % Neut % (Auto) 58.5 (45-73) % Lymph % (Auto) 33.3 (20-40) % [place] % (Auto) 6.6 (2-11) % Eos % (Auto) 0.8 (0-4) % Baso % (Auto) 0.6 (0-2) % Lymph # (Auto) 2.9 (1.2-4.9) X10*3/uL [place] # (Auto) 0.6 (0.1-1.2) X10*3/uL Eos # (Auto) 0.1 (0.0-0.4) X10*3/uL Baso # (Auto) 0.1 (0.0-0.2) X10*3/uL Abs Immat Gran (auto) 0.02 (0.00-0.03) X10*3/uL Absolute Neuts (auto) 5.1 (2.0-8.3) x10*3/uL Absolute Nucleated RBC 0.000 (0.0-0.012) X10*3/uL Nucleated RBC % (auto) 0.0 (0.0-0.2) /100WBC Sodium 142 (135-145) mmol/L Potassium 4.6 (3.3-5.1) mmol/L Chloride 115 H (96-108) mmol/L Carbon Dioxide 16 L (22-29) mmol/L Anion Gap 16 (12-20) BUN 16 (9-16) mg/dL Creatinine 1.11 (0.5-1.4) mg/dL Estim Creat Clear Calc 55.2 Estimated GFR 51 POC Glucose 77 (60-115) mg/dL Random Glucose 88 (60-115) mg/dL Calcium 9.5 (8.4-10.2) mg/dL Magnesium 2.1 (1.6-2.6) mg/dL Total Bilirubin 0.6 (0.0-1.0) mg/dL AST 24 (5-31) U/L ALT 28 (0-31) U/L Alkaline Phosphatase 129 H (39-117) U/L Total Protein 6.8 (6.5-8.0) g/dL Albumin 3.9 (3.5-5.0) g/dL TSH 0.90 (0.32-4.0) uIU/mL Urine Color Yellow Urine Appearance Cloudy Urine pH 7.5 (5.0-9.0) Ur Specific [place] 1.015 (1.005-1.025) Urine Protein Negative (Neg-Trace) mg/dL Urine Glucose (UA) Negative (Negative) mg/dL Urine Ketones 80 (Negative) mg/dL Urine Blood Negative (Negative) Urine Nitrite Positive H (Negative) Ur Leukocyte Esterase Small (1+) H (Negative) Urine RBC 0-2 (0-2) /HPF Urine WBC 6-10 H (0-5) /HPF Ur Squamous Epith Cells 0-2 (0-2) /HPF Urine Bacteria 4+ (None Seen) Hyaline Casts 0-2 (0-2) /LPF Urine Opiates Screen Not Detected (Not Detect) Ur Buprenorphine Scrn Not Detected (Not Detect) ng/mL Ur Oxycodone Screen Not Detected (Not Detect) ng/mL Urine Methadone Screen Not Detected (Not Detect) ng/mL Urine Fentanyl Screen Not Detected (Not Detect) Ur Barbiturates Screen Not Detected (Not Detect) Ur Phencyclidine Scrn Not Detected (Not Detect) Ur Amphetamines Screen Not Detected (Not Detect) U Benzodiazepines Scrn Not Detected (Not Detect) Urine Cocaine Screen Not Detected (Not Detect) U Marijuana (THC) Screen Not Detected (Not Detect) Ethyl Alcohol < 10 mg/dL Discharge Plan Discharge Clinical Impression: Urinary tract infection Patient Disposition: Home, Self-Care Instructions: Urinary Tract Infection in Women (ED) Additional Instructions: You were found to have a urinary tract infection. The remainder of your labs were normal, there were no abnormalities noted on the CT scan of your brain. I do feel that your anxiety is contributing to your symptoms, if you do not already have a therapist, you should seek counseling. Follow up with your primary care provider as needed. Take the cephalexin as directed, you do not require any additional antibiotic until tomorrow. Prescriptions: New cephalexin 500 mg capsule 500 mg PO BID Qty: 14 0RF No Action (DME) CPAP device and all related supplies See Rx Instructions .Route .MEDSUPPLY Qty: 1 0RF Rx Instructions: As directed albuterol sulfate [ProAir HFA] 90 mcg/actuation HFA aerosol inhaler 2 puff inhalation Q6H PRN (Reason: shortness of breath or wheezing) 30 Days Qty: 8.5 5RF (DME) blood pressure monitor Kit See Rx Instructions .ROUTE .MEDSUPPLY Qty: 1 0RF Rx Instructions: As directed rosuvastatin 5 mg tablet 5 mg PO DAILY Qty: 90 1RF cholecalciferol (vitamin D3) [Vitamin D3] 25 mcg (1,000 unit) capsule 25 mcg PO DAILY 90 Days Qty: 90 3RF diphenhydramine HCl [Banophen] 25 mg capsule 25 mg PO TID PRN (Reason: allergy symptoms) Qty: 90 2RF estradiol 0.01 % (0.1 mg/gram) cream See Rx Instructions vaginal 3XW 30 Days Qty: 42.5 0RF Rx Instructions: vaginally 3 times a week; pea sized amount to urethra 3 times a week tramadol 50 mg tablet 100 mg PO Q8H PRN (Reason: severe pain) 30 Days Qty: 180 0RF mometasone 0.1 % cream 1 appl topical DAILY PRN (Reason: rash) Qty: 45 1RF ferrous sulfate 325 mg (65 mg iron) tablet 325 mg PO DAILY Qty: 90 0RF gabapentin 400 mg capsule 800 mg PO TID 30 Days Qty: 180 0RF midodrine 10 mg tablet 10 mg PO TID Qty: 30 1RF Rx Instructions: do not give last dose of day after 6PM or within 4 hrs of bedtime meclizine 25 mg tablet 25 mg PO TID PRN (Reason: dizziness) 30 Days Qty: 90 1RF cyanocobalamin (vitamin B-12) 500 mcg Tablet 500 mcg PO DAILY Qty: 30 0RF melatonin 5 mg tablet 5 mg PO BEDTIME PRN lorazepam 1 mg tablet 1 mg PO BID PRN clotrimazole 1 % cream 1 appl topical BID Qty: 45 3RF polyethylene glycol 3350 [Miralax] 17 gram powder in packet 17 g PO DAILY diphenhydramine HCl [Banophen] 50 mg capsule 50 mg PO BEDTIME Linzess 145 mcg capsule 145 mcg PO DAILY Qty: 30 2RF nystatin 100,000 unit/mL suspension 1 ml PO TID 10 Days Qty: 30 0RF Rx Instructions: swish and swallow aripiprazole 5 mg tablet 5 mg PO DAILY Citrucel 500 mg tablet 500 mg PO DAILY Qty: 30 2RF docusate sodium 100 mg capsule 100 mg PO DAILY Qty: 30 3RF bisacodyl [Dulcolax (bisacodyl)] 5 mg tablet,delayed release (DR/EC) 10 mg PO BEDTIME Qty: 180 4RF lurasidone 20 mg tablet 20 mg PO DAILY topiramate 100 mg tablet 100 mg PO DAILY mirtazapine 15 mg tablet 15 mg PO BEDTIME sumatriptan succinate 50 mg tablet PO naproxen 500 mg tablet 500 mg PO DAILY pantoprazole 40 mg tablet,delayed release (DR/EC) 40 mg PO DAILY Qty: 90 2RF Rx Instructions: take one tablet half an hour before breakfast potassium citrate 5 mEq (540 mg) tablet extended release 5 meq PO DAILY Interventions: ED Discharge Assessment Last Done: 01/04/24 21:04 Discharge Date/Time: 01/04/24 21:04 Print Language: Moroccan
--- NOTE | 2024-01-04 18:35 | PC.NURSE ---
previously ambulated w/ pct to the bathroom to provide urine sample, one assist needed
[2024-01-04] MEDS: cephALEXin 500 MG CAPSULE PO (18:45)
[2024-01-04 19:54] LABS: Amphetamine Screen Urine Not Detected (Not Detect); Barbiturates, Urine Not Detected (Not Detect); Benzodiazepines Screen Urine Not Detected (Not Detect); Buprenorphine Scr Not Detected (Not Detect); Cannabinoid Screen Urine Not Detected (Not Detect); Cocaine Screen Urine Not Detected (Not Detect); Fentanyl, urine Not Detected (Not Detect); Methadone Screen, Urine Not Detected (Not Detect); Opiate Screen Urine Not Detected (Not Detect); Oxycodone Screen Urine Not Detected (Not Detect); Phencyclidine Screen Urine Not Detected (Not Detect)
[2024-01-04 20:23] VITALS: BP 107/63; PULSE 77; RESP 19; TEMP 37.3; O2SAT 97
[2024-01-04 21:04] VITALS: BP 107/63; PULSE 77; RESP 19; TEMP 37.3; O2SAT 97
== END 2024-01-04 21:04 | disposition home or self-care (01) ==
PROVIDERS: Physician Assistant Medical; Emergency Provider Emergency Medicine; PCP Internal Medicine
DX: N39.0 Urinary tract infection, site not specified (principal); B96.20 Unspecified Escherichia coli [E. coli] as the cause of diseases classified elsewhere; R00.1 Bradycardia, unspecified; Z79.899 Other long term (current) drug therapy
CPT/HCPCS: 36415; 51701; 70450; 80053; 80307; 81001; 82947; 83735; 84443; 85025; 87086; 87088; 87186; 93005; 99284; 99285

== ENCOUNTER 2024-01-09 08:02 | Outpatient (REF) | payer OTHER, SELFPAY ==
[2024-01-09 09:54] LABS: Folate 6.9 ng/mL (> or = 4.0); Vitamin B12 311 pg/mL (200-900)
[2024-01-12 05:08] LABS: Zinc 63 mcg/dL (60-130)
[2024-01-13 12:09] LABS: Vitamin B1 10 nmol/L (8-30)
[2024-01-13 17:54] LABS: Vitamin A 53 mcg/dL (38-98)
== END 2024-01-09 08:03 | disposition home or self-care (01) ==
LOC: HO.LAB 08:02
PROVIDERS: PCP Internal Medicine; Visit Provider Physician Assistant Surgical
DX: E66.3 Overweight (principal); Z98.84 Bariatric surgery status
CPT/HCPCS: 36415; 82607; 82746; 84425; 84590; 84630

== ENCOUNTER 2024-01-15 15:02 | Outpatient (REF) | payer OTHER, SELFPAY | END 2024-01-15 15:03 | disposition home or self-care (01) | LOC: HO.LNP 15:02 | PROVIDERS: PCP Internal Medicine; Visit Provider Nurse Practitioner Family | DX: N39.0 Urinary tract infection, site not specified (principal); N20.0 Calculus of kidney; R39.9 Unspecified symptoms and signs involving the genitourinary system; N18.30 Chronic kidney disease, stage 3 unspecified; Z79.899 Other long term (current) drug therapy | CPT/HCPCS: 51798; 81003; 99212 ==

== ENCOUNTER 2024-01-15 15:02 | Outpatient (AMB) | payer OTHER, SELFPAY ==
--- NOTE | 2024-01-15 15:28 | A.OFFVIS_ITS ---
Intake Visit Reasons: 3m/PVR Intake Note: Patient presents today for follow up on: Recurrent UTI Urology Medications: Estrace Cream Antibiotic Allergy: None Blood Thinner: None PVR: 16ml's Spray Operator Required: Yes Spray Operator Name: Karina [id number] Accompanied by: Self / Same As Patient Allergies acetaminophen Adverse Reaction (Unknown, Verified 01/15/24 16:13) Unknown atorvastatin Adverse Reaction (Severe, Uncoded 01/15/24 16:13) elevated liver enzymes Medication List - Last Reconciled 01/15/24 by ANNA Hughes albuterol sulfate 90 mcg/actuation (ProAir HFA) 2 puffs inhalation Q6H PRN 30 days aripiprazole 5 mg PO DAILY bisacodyl (Dulcolax (bisacodyl)) 10 mg (2 x 5 mg) PO BEDTIME blood pressure monitor As directed cholecalciferol (vitamin D3) (Vitamin D3) 25 mcg PO DAILY 90 days clotrimazole 1% 1 appl topical BID [CPAP device and all related supplies As directed] cyanocobalamin (vitamin B-12) 500 mcg PO DAILY diphenhydramine HCl (Banophen) 25 mg PO TID PRN diphenhydramine HCl (Banophen) 50 mg PO BEDTIME docusate sodium 100 mg PO DAILY estradiol 0.01%(0.1mg/gram) vaginally 3 times a week; pea sized amount to urethra 3 times a week 30 days ferrous sulfate 325 mg PO DAILY gabapentin 800 mg (2 x 400 mg) PO TID 30 days linaclotide (Linzess) 145 mcg PO DAILY lorazepam 1 mg PO BID PRN lurasidone 20 mg PO DAILY meclizine 25 mg PO TID PRN 30 days melatonin 5 mg PO BEDTIME PRN methylcellulose (laxative) (Citrucel) 500 mg PO DAILY midodrine 10 mg PO TID mirtazapine 15 mg PO BEDTIME mometasone 0.1% 1 appl topical DAILY PRN naproxen 500 mg PO DAILY nitrofurantoin monohyd/m-cryst 100 mg (Macrobid) 100 mg PO Q12H 14 days nystatin 1 mL PO TID 10 days pantoprazole 40 mg PO DAILY polyethylene glycol 3350 (Miralax) 17 grams PO DAILY potassium citrate ER 5 mEq PO DAILY rosuvastatin 5 mg PO DAILY sumatriptan succinate mg PO topiramate 100 mg PO DAILY tramadol 100 mg (2 x 50 mg) PO Q8H PRN 30 days HPI Comments Details: Xenia is a very pleasant 53-year-old Thai-speaking female patient of Dr. Montelongo. She has a past medical history of obesity, renal cysts, diverticulosis, asthma, spondylosis of lumbar spine, dizziness of unknown etiology, chronic constipation, schizophrenia, stage 3 chronic kidney disease, panic attacks, PTSD, obstructive sleep apnea, major depression, anxiety, insomnia, tremors, vitamin-D deficiency, GERD, migraines, and hyperlipidemia. She presents to the office today for follow-up of her nephrolithiasis and recurrent urinary tract infections. She reports recently seeking emergency room care approximately approximately 2 weeks ago for body numbness and tingling at which time she was noted to have a urinary tract infection and has since completed antibiotic therapy as prescribed by ER physician. In office urinalysis results reviewed with the patient today. 1+ leukocytes positive nitrates. She has a longstanding history of recurrent urinary tract infections. 02/17, 04/19, 05/21, 10/20, 04/21, 05/23, 06/23, 08/21, 10/21, and 02/20: Positive for E coli 08/22: Positive for Klebsiella pneumoniae 01/22: Posisitve for E.Coli When asked she does report compliance with Estrace cream as prescribed. During last office visit approximately 3 months ago patient was started on methenamine and vitamin-C. She reports compliance with this as prescribed. We discussed gap in urinary tract infection from July to December. When asked she does reports a longstanding history of constipation with hemorrhoids. She does report being on a bowel regimen however does continue with constipation. We discussed at length correlation of constipation and recurrent urinary tract infections as well as lower urinary tract symptoms. She continue with bladder pressure, urinary urgency, and urinary frequency. She otherwise denies incontinence, nocturia, hematuria, dysuria, foul smelling urine, changes to urinary stream, flank pain, fever, and or chills. PVR 16 mL. Discussed obtaining retroperitoneal ultrasound for further assessment evaluation as well as sending urine for microgen for further assessment evaluation. Discussed possible near future in office cystoscopy for further assessment evaluation. She otherwise offers no other issues or concerns at this time. [facility] Medical History Chronic kidney disease, stage III (moderate) Obesity (BMI 30-39.9) Renal cyst Diverticulosis Tubular adenoma Asthma Spondylosis of lumbar spine Sacroiliitis Dizziness of unknown etiology Chronic constipation Hx of schizophrenia Panic attacks PTSD (post-traumatic stress disorder) MIGUEL (obstructive sleep apnea) Dyspareunia Pyelonephritis Ingrown toenail Iron deficiency anemia Major depression, recurrent Anxiety Insomnia Tremor Orthostatic hypotension Incisional hernia without obstruction or gangrene Avascular necrosis of femoral head Bilateral carpal tunnel syndrome Peroneal neuropathy Lumbar degenerative disc disease Vitamin D deficiency GERD (gastroesophageal reflux disease) Migraine Hyperlipidemia Surgical History History of left nephrectomy (~1999) History of colonoscopy History of surgery Hx of cystoscopy History of bilateral breast reduction surgery History of hysterectomy History of cholecystectomy History of endoscopy (~06/2016) History of bladder repair surgery (~03/2015) S/P cystoscopy (~07/30/12) S/P panniculectomy History of hernia repair (~03/29/10) History of bladder surgery (~10/2009) History of gastric bypass (~2008) History of incisional hernia repair (~1999) Hx of umbilical hernia repair (~1999) H/O left nephrectomy S/P laparoscopic sleeve gastrectomy Family History Father Liver cancer Mother Breast cancer Sister Lung cancer Other Mental health problem Social History Household Members: Spouse and Family Housing: House Do you presently have visiting nurse or other home services: Yes Alcohol intake: never Patient Tobacco Use Status: Never used Tobacco e-Cigarette/Vaping Use: Never Used Second Hand Smoke Exposure: No Advance Directives Date on File: 07/12/21 service: No Current occupational status: disabled Sexual orientation: Straight/Heterosexual Cognitive needs: No Hearing needs: No Vision needs: Yes Female Reproductive History Menstrual Age of Menarche: 13 Review of Systems Const Reports no additional complaints Eyes Reports no additional complaints ENT Reports no additional complaints Card Reports as per HPI Resp Reports as per HPI GI Reports as per HPI Reports as per HPI Musc Reports as per HPI Neuro Reports as per HPI Psych Reports as per HPI Physical Exam Const General: cooperative, healthy appearing, comfortable, no acute distress, well developed, alert and awake Orientation/consciousness: patient oriented x3 Limitations: no limitations HEENT Head: Yes normal to inspection, Yes normocephalic and Yes atraumatic Ears: hearing grossly normal bilaterally Eyes General: appearance normal, both eyes and all related structures Neck Neck: Yes normal visual inspection and Yes trachea midline Chest Chest palpation & inspection: normal inspection of the chest Resp Effort & Inspection: normal respiratory effort and able to speak in complete sentences Cardio Rate: regular rate GI Inspection: Yes normal to inspection General: Yes no CVA tenderness Back/Spine/Pelvis Back: no CVA tenderness Skin General skin exam: no rashes or lesions noted Neuro General: patient oriented x3 Extrem General: Yes normal to inspection Psych Appearance: grossly normal and well kempt Mental Status: mental status grossly normal Speech and movement: Normal speech and movement present and Clear speech present Affect: normal affect Attitude: cooperative Thought process: Normal thought process present Thought content: Normal thought content present Insight: Fair insight present (Psych) Judgement: Fair judgement present (Psych) Office Procedures Post Void Residual Post Residual Void Post Void Residual (PVR): 16 [id number] Void Residual by ultrasound Results AMB Urinalysis, Automated UA Leukoctes 70 Asad/uL Last Edit by [employer] on 01/15/24 15:45 UA Nitrite Positive Last Edit by [employer] on 01/15/24 15:45 UA Urobilinogen 0.2 mg/dL Last Edit by [employer] on 01/15/24 15:45 UA Protein 0 mg/dL Last Edit by [employer] on 01/15/24 15:45 UA pH 6.0 Last Edit by [employer] on 01/15/24 15:45 UA Blood 25 Montrell/uL Last Edit by [employer] on 01/15/24 15:45 UA Specific Sawyer 1.025 Last Edit by [employer] on 01/15/24 15:45 UA Ketone Last Edit by [employer] on 01/15/24 15:45 UA Bilirubin 0 mg/dL Last Edit by [employer] ElizabethYoomba on 01/15/24 15:45 UA Glucose 0 mg/dL Last Edit by [employer] on 01/15/24 15:45 Results Reviewed Results Reviewed: Laboratory Last Values Urine pH (Auto) 6.0 01/15/24 15:33 Specific Sawyer (Auto) 1.025 01/15/24 15:33 Urine Protein (Auto) 0 mg/dL 01/15/24 15:33 Glucose (UA)(Auto) 0 mg/dL 01/15/24 15:33 Urine Blood (Auto) 25 Montrell/uL 01/15/24 15:33 Urine Nitrite (Auto) Positive 01/15/24 15:33 Urine Bilirubin (Auto) 0 mg/dL 01/15/24 15:33 Urine Urobilinogen (Auto) 0.2 mg/dL 01/15/24 15:33 Leukocyte Esterase (Auto) 70 Asad/uL 01/15/24 15:33 Assessment & Plan Assessment & Plan (1) Recurrent urinary tract infection: Code(s): N39.0 - Urinary tract infection, site not specified Category: Medical (2) Lower urinary tract symptoms: Code(s): R39.9 - Unspecified symptoms and signs involving the genitourinary system Category: Medical (3) Complicated urinary tract infection: Code(s): N39.0 - Urinary tract infection, site not specified Category: Medical Plan In office urinalysis results reviewed with the patient today; will send for microgen; will await results. PVR 16 mL. Start Macrobid as discussed and prescribed. Will obtain retroperitoneal ultrasound for further assessment evaluation. Discussed UTI prevention with D mannose supplement, vitamin-C, increasing fluid intake, behavioral therapy with timed voiding, perineal hygiene and postcoital voiding, and management of constipation with stool softeners and increased fiber intake. Discussed holding methenamine and vitamin-C while on treatment for urinary tract infection. Continue Estrace cream as discussed and prescribed. Discussed possible near future in office cystoscopy if symptoms continue for further assessment evaluation. Follow-up in 3 months with imaging and PVR; or sooner with any issues, concerns, and or questions. Orders: Orders Urine Culture Today R39.9 - Unspecified symptoms and signs involving the genitourinary system US retroperitoneal comp Today N39.0 - Urinary tract infection, site not specified AMB Urinalysis Automated Today Z13.9 - Encounter for screening, unspecified AMB Post Void Residual by ultrasound Today R39.9 - Unspecified symptoms and signs involving the genitourinary system Medications: New nitrofurantoin monohyd/m-cryst 100 mg (Macrobid) must administer with a meal/food 100 mg PO Q12H 14 days 28 caps 0RF Patient Instructions: The patient had an opportunity to ask questions regarding the treatment plan. All questions were answered. Physical exam, labs, and imaging were discussed and reviewed in detail. As well as risks, benefits, and discussion of treatment choices. No major barriers to understanding were identified. The patient expressed understanding and agreement with the above treatment plan. The patient was made aware they should contact our office by phone for worsening of their current condition, the appearance of new symptoms, or with any questions or concerns. Compliance is encouraged with any medications and follow up testing that is ordered. It is a privilege to be allowed the opportunity to participate in? your urological care.? Again, if you have any questions or concerns If you have any questions or concerns please do not hesitate to contact me. The office is [phone]. This note is constructed using voice recognition software. While every effort has been made to ensure accuracy home appliance tech errors may have been included. Yours sincerely, ANNA Hughes Coding Level of Care Code Est Pt Level 4 (66389) Complex EM visit Add On G2211 Diagnoses Recurrent urinary tract infection N39.0 Lower urinary tract symptoms R39.9 Complicated urinary tract infection N39.0 CPT Codes Post Residual Void - PVR CPT Code: 86429-Vtog Void Residual by ultrasound ([id number])
== END 2024-01-15 16:13 | disposition home or self-care (01) ==
PROVIDERS: PCP Internal Medicine; Visit Provider Nurse Practitioner Family
DX: N39.0 Urinary tract infection, site not specified (principal); R39.9 Unspecified symptoms and signs involving the genitourinary system; Z13.9 Encounter for screening, unspecified
CPT/HCPCS: 99214; G2211

== ENCOUNTER 2024-01-16 13:18 | Outpatient (AMB) | payer OTHER, SELFPAY ==
--- NOTE | 2024-01-16 14:00 | MHC.OFFVIS ---
Vital Signs 01/16/24 14:01 Height 5 ft 4 in Weight 160 lb 7.944 oz BMI 27.5 BP 100/72 Blood Pressure Location Lt brachial Position Sitting Pulse 58 Pulse Source Pulse Oximeter Intake Visit Reasons: 3 mth f/up Motion Picture Actor Required: Yes Motion Picture Actor Name: isidro [id number] kemar Allergies acetaminophen Adverse Reaction (Unknown, Verified 01/16/24 14:02) Unknown atorvastatin Adverse Reaction (Severe, Uncoded 01/16/24 14:02) elevated liver enzymes Medication List - Last Reconciled 01/16/24 by ALISE Bauman albuterol sulfate 90 mcg/actuation (ProAir HFA) 2 puffs inhalation Q6H PRN 30 days aripiprazole 5 mg PO DAILY bisacodyl (Dulcolax (bisacodyl)) 10 mg (2 x 5 mg) PO BEDTIME blood pressure monitor As directed cholecalciferol (vitamin D3) (Vitamin D3) 25 mcg PO DAILY 90 days clotrimazole 1% 1 appl topical BID [CPAP device and all related supplies As directed] cyanocobalamin (vitamin B-12) 500 mcg PO DAILY diphenhydramine HCl (Banophen) 25 mg PO TID PRN diphenhydramine HCl (Banophen) 50 mg PO BEDTIME docusate sodium 100 mg PO DAILY estradiol 0.01%(0.1mg/gram) vaginally 3 times a week; pea sized amount to urethra 3 times a week 30 days ferrous sulfate 325 mg PO DAILY gabapentin 800 mg (2 x 400 mg) PO TID 30 days linaclotide (Linzess) 145 mcg PO DAILY lorazepam 1 mg PO BID PRN lurasidone 20 mg PO DAILY meclizine 25 mg PO TID PRN 30 days melatonin 5 mg PO BEDTIME PRN methylcellulose (laxative) (Citrucel) 500 mg PO DAILY midodrine 10 mg PO TID mirtazapine 15 mg PO BEDTIME mometasone 0.1% 1 appl topical DAILY PRN naproxen 500 mg PO DAILY nitrofurantoin monohyd/m-cryst 100 mg (Macrobid) 100 mg PO Q12H 14 days nystatin 1 mL PO TID 10 days pantoprazole 40 mg PO DAILY potassium citrate ER 5 mEq PO DAILY rosuvastatin 5 mg PO DAILY sumatriptan succinate mg PO topiramate 100 mg PO DAILY tramadol 100 mg (2 x 50 mg) PO Q8H PRN 30 days HPI HPI 3 mth f/up: Details: Xenia as a 53-year-old female with past medical history of obesity status post bariatric surgery, anxiety/depression, orthostatic hypotension, syncope who presents for follow-up. Today she reports that she continues to have lightheadedness at times when standing. She has not had any recurrent syncopal events since her last visit here in September. She tells me that she does not drink much liquid. She has not increase the salt in her diet. She reports taking the midodrine 3 times daily as directed. She is not wearing compression stockings. She has no chest discomfort, shortness of breath, PND, orthopnea, edema. She reports only light activities in the home. Her helps her climb the stairs. Certified site interpreter used. [facility] Medical History Chronic kidney disease, stage III (moderate) Obesity (BMI 30-39.9) Renal cyst Diverticulosis Tubular adenoma Asthma Spondylosis of lumbar spine Sacroiliitis Dizziness of unknown etiology Chronic constipation Hx of schizophrenia Panic attacks PTSD (post-traumatic stress disorder) MIGUEL (obstructive sleep apnea) Dyspareunia Pyelonephritis Ingrown toenail Iron deficiency anemia Major depression, recurrent Anxiety Insomnia Tremor Orthostatic hypotension Incisional hernia without obstruction or gangrene Avascular necrosis of femoral head Bilateral carpal tunnel syndrome Peroneal neuropathy Lumbar degenerative disc disease Vitamin D deficiency GERD (gastroesophageal reflux disease) Migraine Hyperlipidemia Surgical History History of left nephrectomy (~1999) History of colonoscopy History of surgery Hx of cystoscopy History of bilateral breast reduction surgery History of hysterectomy History of cholecystectomy History of endoscopy (~06/2016) History of bladder repair surgery (~03/2015) S/P cystoscopy (~07/30/12) S/P panniculectomy History of hernia repair (~03/29/10) History of bladder surgery (~10/2009) History of gastric bypass (~2008) History of incisional hernia repair (~1999) Hx of umbilical hernia repair (~1999) H/O left nephrectomy S/P laparoscopic sleeve gastrectomy Family History Father Liver cancer Mother Breast cancer Sister Lung cancer Other Mental health problem Social History Household Members: Spouse and Family Housing: House Do you presently have visiting nurse or other home services: Yes Alcohol intake: never Patient Tobacco Use Status: Never used Tobacco e-Cigarette/Vaping Use: Never Used Second Hand Smoke Exposure: No Advance Directives Date on File: 07/12/21 service: No Current occupational status: disabled Sexual orientation: Straight/Heterosexual Cognitive needs: No Hearing needs: No Vision needs: Yes Female Reproductive History Menstrual Age of Menarche: 13 Review of Systems Const All systems reviewed & are unremarkable except as noted in HPI and below ENT Reports dizziness Card Denies chest pain, Denies chest pain at rest, Denies chest pain with activity, Denies rapid heart rate, Denies pedal edema, Denies edema, Denies leg edema, Denies lightheadedness, Denies palpitations, Denies dyspnea, Denies dyspnea on exertion and Denies orthopnea Resp Denies cough, Denies dyspnea and Denies dyspnea on exertion GI Denies hematochezia and Denies change in stool character Musc Denies abnormal gait, Denies limited range of motion, Denies muscle cramps, Denies muscle weakness, Denies numbness, Denies radiating pain into limb, Denies stiffness and Denies tingling Neuro Denies abnormal gait, Reports dizziness, Denies numbness and Denies tingling Endo Denies palpitations Physical Exam Vital Signs: Last Vital Signs Pulse 58 01/16/24 14:01 BP 100/72 01/16/24 14:01 BMI result Body Mass Index 27.5 Const General: cooperative, healthy appearing, comfortable and no acute distress Orientation/consciousness: patient oriented x3 Neck Neck: Yes normal visual inspection and Yes no JVD Resp Effort & Inspection: normal respiratory effort Auscultation: clear to auscultation bilaterally, no crackles, no rales, no rhonchi and no wheezes Cardio Jugular venous distension: no JVD Rate: regular rate Rhythm: regular rhythm Heart sounds: S1 normal heart sound present, S2 normal heart sound present, no murmurs and no rubs Neuro General: patient oriented x3 Extrem General: Yes normal to inspection and No no pedal edema Psych Appearance: grossly normal Mental Status: mental status grossly normal Speech and movement: Normal speech and movement present Assessment & Plan Assessment & Plan (1) Orthostatic dizziness: Code(s): R42 - Dizziness and giddiness Category: Medical Plan: Reports of orthostatic lightheadedness. She does run a low blood pressure and midodrine was added then dose increased due to ongoing hypotension. She is currently on 10 mg t.i.d. and reports compliance. She has had syncope in the past however none since June 2023. A cardiac event monitor was done on 07/11/2023 for 30 days showing sinus rhythm with heart rate range 36 to 131, 2 brief paroxysmal SVT episodes, rare PACs and PVCs. Two symptom events correlated with sinus tach. An echocardiogram was done 07/11/2023 which was normal study. An tilt-table test done on 10/17/2023 showed appropriate heart rate and blood pressure response to tilt. Today she is still reporting episodes of lightheadedness in a standing position. Her blood pressure today is 100/72. On last visit she reported drinking 4-5 water bottles per day. Today she tells me she does not drink much liquid at all. She has a small amount with each meal and that is it. She did not increase her salt as previously directed. Spent time again going over the benefits of increasing her fluids recommending at least 48 -60 oz daily. Increase the salt in her diet by eating foods such as chicken soup, Gatorade, potato chips as food items with salt. She was previously given a pair of compression stockings from our office stock. I again instructed her on their use. Instructed on physical activity as tolerated and using caution when going sitting to standing. Sit or lay down if she becomes symptomatic. She will continue midodrine 3 times daily. Will plan follow-up in 4 months, sooner if needed. (2) Hypotension: Code(s): I95.9 - Hypotension, unspecified Category: Medical Plan: As above Plan Time spent on chart review, documentation, interview and assessment Coding Level of Care Code Est Pt Level 3 (87439) Diagnoses Orthostatic dizziness R42 Hypotension I95.9 Time Spent (min) 24
[2024-01-16 14:01] VITALS: BP 100/72; PULSE 58; BMI 27.5
== END 2024-01-16 14:55 | disposition home or self-care (01) ==
PROVIDERS: PCP Internal Medicine; Visit Provider Nurse Practitioner Family
DX: R42 Dizziness and giddiness (principal); I95.9 Hypotension, unspecified
CPT/HCPCS: 99213

== ENCOUNTER → 2024-01-16 13:18 | Outpatient (BNVA) | payer OTHER, SELFPAY | PROVIDERS: PCP Internal Medicine; Visit Provider Nurse Practitioner Family | DX: I95.9 Hypotension, unspecified (principal); R42 Dizziness and giddiness; Z98.84 Bariatric surgery status | CPT/HCPCS: 99212 ==

== ENCOUNTER 2024-01-22 08:40 | Inpatient (IN) | payer OTHER, SELFPAY ==
[2024-01-22] VITALS (9 sets, daily range): BP systolic 105–164; BP diastolic 64–102; PULSE 50–93; RESP 16–24; TEMP 36.4–36.9; O2SAT 98–100; BMI 30.6
--- NOTE | ~2024-01-22 | CT_ITS ---
EXAMINATION: CT HEAD WITHOUT CONTRAST (STROKE PROTOCOL) CLINICAL INFORMATION: Stroke protocol. Sided weakness COMPARISON: Head CT January 04, 2024 TECHNIQUE: Contiguous axial imaging was performed from the skull base to vertex without intravenous administration of contrast. This CT examination was performed using dose optimization techniques as appropriate, variously including the following: *Automated exposure control *Adjustment of mA and/or kV according to patient size (this includes techniques or standardized protocols for targeted exams where dose is matched to indication/reason for exam; i.e. extremities or head) *Use of iterative reconstruction technique DLP: 590 mGy-cm FINDINGS: There is no evidence of acute intracranial hemorrhage or territorial infarction. No abnormal mass effect or midline shift is appreciated. Mckeon-white differentiation is well preserved. No extra-axial fluid collections. The ventricular system and cortical sulci are normal in size. The osseous structures and soft tissues are normal. There is mild mucosal thickening of the sphenoid sinus. The other visualized paranasal sinuses and mastoid air cells are well aerated. CT/CT head for stroke IMPRESSION: No acute intracranial pathology. Attempts were made to urgently contact the ordering clinician about this stroke CT starting at 2:36 PM, however, the physician computer support specialist was placed on hold until 2:48 PM, despite relaying the urgency of this communication. This critical result was ultimately discussed with Trudy at 2:48 PM hours on February 04, 2024. It was ascertained that the content and urgency of the report was understood at the time of direct communication. Electronically signed by: Pedro Astudillo MD 02/04/2024 02:49 PM EDT
--- NOTE | ~2024-01-22 | CT_ITS ---
Clear. Bones: No acute osseous abnormality. No lytic or blastic osseous lesions. EXAMINATION: CTA head and neck with and without contrast CLINICAL INFORMATION: Dizziness, numbness to face, lower extremity weakness COMPARISON: None available. TECHNIQUE: Test bolus sequences followed by intravenous administration of 70 mL of Omnipaque 350 contrast. Helical imaging was performed in the axial plane from the skull vertex to the thoracic inlet. Delayed postcontrast imaging of the head was also performed. The data was processed at the robotics technologist workstation for generation of MIP sequences. Angled MIPs and volume rendered reformatted images were also generated at an offline 3D workstation. Stenoses are assessed in accordance with NASCET criteria unless otherwise indicated. This CT examination was performed using dose optimization techniques as appropriate, variously including the following: *Automated exposure control *Adjustment of mA and/or kV according to patient size (this includes techniques or standardized protocols for targeted exams where dose is matched to indication/reason for exam; i.e. extremities or head) *Use of iterative reconstruction technique DLP: 2109 mGy-cm FINDINGS: BRAIN: No acute intracranial hemorrhage or infarct. The bautista-white matter differentiation is preserved. No midline shift or hydrocephalus. No acute extra-axial fluid collections. The osseous structures are unremarkable. No orbital pathology. Partially empty sella. Mild mucosal thickening of the bilateral maxillary and right sphenoid sinuses. The mastoid air cells are clear. CTA NECK: Common origin of the innominate and left common carotid artery, normal variant. Aberrant right subclavian artery, also normal variant. The innominate and bilateral subclavian arteries are patent. The origins and cervical segments of the common carotid arteries as well as the common carotid artery bifurcations are patent bilaterally. The cervical segments of the internal carotid arteries are also patent bilaterally. The origins and cervical segments of the vertebral arteries are patent bilaterally. No hemodynamically significant stenosis, dissection, or aneurysm. The visualized branches of the external carotid arteries are unremarkable. CTA HEAD: Anterior circulation: The petrous, cavernous, and supraclinoid segments of the internal carotid arteries are patent bilaterally. The major branches of the anterior and middle cerebral arteries as well as anterior communicating artery complex are patent. No large vessel occlusion, saccular aneurysm, dissection. Posterior circulation: The intracranial vertebral arteries are patent bilaterally. The basilar artery is normal in course and caliber. The posterior cerebral and superior cerebellar arteries arise normally from the basilar summit. No aneurysm. On delayed imaging, the venous structures demonstrate normal contrast opacification. No filling defect. No abnormal intraparenchymal enhancement. Soft tissues: There is a hypoattenuating nodule in the left thyroid lobe measuring up to 1.9 cm. There is thinning of the bony coverage of the superior semicircular canals bilaterally, worse on the right. No suspicious neck mass or cervical adenopathy. Lungs: Clear. Bones: No acute osseous abnormality. No lytic or blastic osseous lesions. CT/CT angio head neck IMPRESSION: -No acute intracranial hemorrhage or edematous infarct. -No hemodynamically significant stenosis in the major arteries of the neck or intracranial circulation. -Incidentally noted thinning of the superior semicircular canals bilaterally, worse on the right with suggestion of dehiscence. If there is concern for semicircular canal dehiscence, recommend further characterization with dedicated CT of the temporal bones. -A 1.9 cm hypoattenuating nodule in the left thyroid lobe. Based on the recommendations of the ACR Incidental Thyroid Findings Committee (JACR 2015 Jun; 12(2):143-50), further evaluation by thyroid ultrasound is recommended for solitary incidental thyroid nodules greater than or equal to 1.5 cm in largest axial dimension in patients age 35 years and older who do not have limited life expectancy or significant morbidities, unless clinically warranted. Electronically signed by: Luis Armando Smith MD 01/22/2024 02:45 PM EDT
--- NOTE | ~2024-01-22 | CT_ITS ---
EXAMINATION: CT CHEST WITHOUT CONTRAST CLINICAL INFORMATION: Chest pain COMPARISON: Chest radiograph 10/25/2022 TECHNIQUE: Multidetector volumetric CT imaging of the chest was done. Axial MIP volume rendering provided. Sagittal and coronal reformatted images were obtained. This CT examination was performed using dose optimization techniques as appropriate, variously including the following: *Automated exposure control *Adjustment of mA and/or kV according to patient size (this includes techniques or standardized protocols for targeted exams where dose is matched to indication/reason for exam; i.e. extremities or head) *Use of iterative reconstruction technique DLP: 152 mGy-cm FINDINGS: LUNGS: There is mild emphysema and bronchial thickening. There is a groundglass nodular density in the right middle lobe abutting the fissure measuring 3.2 x 1.3 x 1.1 cm (5:279 and 7:78). There is a right lower lobe perifissural nodular density measuring 7.1 x 2.4 x 3.6 mm (5:319 and 7:84). This has increased in size when compared to the 01/25/2024 study (prior 4:34). A few tiny punctate granulomas are present (see saved lyons images). The lungs are otherwise clear. MEDIASTINUM: The mediastinum is normal. CORONARY ARTERY CALCIFICATION: None visualized on this study. PLEURA: There is no pleural effusion. No pleural mass or thickening. AXILLA: No lymphadenopathy. UPPER ABDOMEN: There is been surgery at the GE junction with gastric bypass. A tiny hiatal hernia is present . Status post cholecystectomy. Left kidney absent. A benign right upper pole 5.2 cm Bosniak class I renal cyst is noted which requires no additional imaging or follow up. There is subcortical splenic granulomas. There is evidence of a left lateral abdominal wall hernia repair OSSEOUS STRUCTURES: Unremarkable. CT/CT chest wo IV con IMPRESSION: 1. There is a 3.2 cm groundglass nodular density in the right middle lobe. 2. There is a 7.1 mm right lower lobe perifissural nodule which has increased in size when compared to the 01/25/2024 study. 3. Other incidental findings as described above. 6. A 6 months follow-up chest CT scan recommended to document the stability of the pulmonary nodules. This is what would be recommended if the patient was in a lung screening program. Fleischner guidelines were followed. Electronically signed by: Diego Oconnell MD 02/01/2024 11:30 AM EDT RP
--- NOTE | ~2024-01-22 | CT_ITS ---
EXAMINATION: CT ANGIOGRAM OF THE CHEST WITH AND WITHOUT CONTRAST (CT PULMONARY ANGIOGRAM FOR PE) CLINICAL INFORMATION: Chest pain. COMPARISON: CT chest performed earlier at 8:53 AM. TECHNIQUE: Prior to contrast administration, noncontrast localization images were obtained. Subsequently, multidetector volumetric imaging was performed of the chest following the administration of 65 mL Omnipaque 350 intravenous contrast. No contrast reaction reported Sagittal, coronal, and MIP oblique sagittal (through the chest only) reformatted images were obtained on the CT workstation, uploaded to PACS, and reviewed. Total exam dose-length product 327 mGy-cm This CT examination was performed using dose optimization techniques as appropriate, variously including the following: *Automated exposure control *Adjustment of mA and/or kV according to patient size (this includes techniques or standardized protocols for targeted exams where dose is matched to indication/reason for exam; i.e. extremities or head) *Use of iterative reconstruction technique FINDINGS: QUALITY OF STUDY/CONTRAST BOLUS: Suboptimal. PULMONARY ARTERIES: Limited evaluation secondary to motion. Pulmonary emboli are noted in the right main pulmonary artery and segmental branches of the right lower lobe. THORACIC AORTA: Aberrant right subclavian artery. Normal caliber of the thoracic aorta. LUNG: Limited evaluation due to respiratory motion. Low lung volumes. Increased mosaic attenuation of lung parenchyma compared to earlier today. No dense consolidation. Central airways are patent. Pulmonary nodules are better visualized on the CT chest from earlier today in view of the limitations of motion of the current study, please refer to the prior examination for management recommendations. PLEURA: No pleural effusion or pneumothorax. MEDIASTINUM: Normal heart size. No pericardial effusion. No evidence of septal bowing. No mediastinal or hilar lymphadenopathy. Asymmetric enlargement of the left lobe of the thyroid along with mild heterogeneity. CHEST WALL/AXILLA: Simple fluid attenuating 0.9 cm nodule in the right breast (6:235). No axillary lymphadenopathy. UPPER ABDOMEN: Mild reflux of contrast into the hepatic veins. Partially seen postsurgical changes from gastric bypass. Cholecystectomy. OSSEOUS STRUCTURES: No acute or suspicious osseous abnormality. CT/CT angio chest PE protocol IMPRESSION: 1. Pulmonary emboli in the right main pulmonary artery and segmental branches of the right lower lobe. 2. Mild reflux of contrast into the hepatic veins that could indicate elevated right-sided heart pressures. 3. Increased mosaic attenuation of the lung parenchyma compared to earlier today which could be related with air trapping in the setting of small airways disease. 4. Pulmonary nodules are better visualized on the CT chest from earlier today in view of the limitations of motion of the current study, please refer to the prior examination for management recommendations. 5. Simple fluid attenuating 0.9 cm nodule in the right breast, possibly a cyst. Recommend correlation with recent priors dedicated breast imaging and if the patient is due further evaluation with outpatient dedicated breast imaging. 6. Asymmetric enlargement of the left lobe of the thyroid with mild heterogeneity. Recommend further evaluation with outpatient thyroid ultrasound. VTE: positive. This critical result was discussed with Dr. Simms at 02/01/2024 7:27 PM CDT and it was ascertained that the content and urgency of the report was understood at the time of direct communication. Electronically signed by: Ivory Titus MD 02/01/2024 08:27 PM EDT
--- NOTE | ~2024-01-22 | US_ITS ---
EXAMINATION: US TRIPLEX LOWER EXTREMITY, BILATERAL CLINICAL INFORMATION: PE, rule out DVT COMPARISON: None available. TECHNIQUE: Color-flow triplex imaging with spectral analysis and compression Doppler were performed on the bilateral lower extremities. FINDINGS: Respiratory variation, normal compression and augmented flow are noted throughout the bilateral lower extremities. The visualized common femoral vein, superficial femoral vein, profunda femoral vein, popliteal vein and midcalf peroneal and posterior tibial venous segments show no evidence of deep venous thrombosis bilaterally. Solid hypoechoic nodule in the left groin measuring 0.5 x 0.3 x 0.4 cm with no internal vascularity, likely a sebaceous cyst. US/US venous duplex LE BI IMPRESSION: No evidence of deep venous thrombosis involving the bilateral lower extremities. Electronically signed by: French Gore MD 02/02/2024 02:48 PM EDT
--- NOTE | ~2024-01-22 | CT_ITS ---
EXAMINATION: CT ABDOMEN AND PELVIS WITHOUT CONTRAST CLINICAL INFORMATION: Right abdominal pain. Question constipation. COMPARISON: CT scans dating between May 30, 2022 and December 30, 2011. TECHNIQUE: Multidetector volumetric imaging was performed from the superior aspect of the liver through the pubic symphysis. Sagittal and coronal reformatted images were obtained on the technologist's workstation. This CT examination was performed using dose optimization techniques as appropriate, variously including the following: *Automated exposure control *Adjustment of mA and/or kV according to patient size (this includes techniques or standardized protocols for targeted exams where dose is matched to indication/reason for exam; i.e. extremities or head) *Use of iterative reconstruction technique DLP: 615 mGy-cm FINDINGS: LUNG BASES: The lung bases appear clear, with no evidence of inflammation or nodules. LIVER, GALLBLADDER, AND BILIARY TREE: The liver appears unremarkable in size, shape, and attenuation. No focal hepatic lesion or biliary ductal dilatation is appreciated. Status post cholecystectomy. PANCREAS: Unremarkable SPLEEN: Unremarkable ADRENAL GLANDS: Unremarkable KIDNEYS AND URETERS: Status post left nephrectomy, unchanged. Multiple, approximately 5.5 cm or less, round, smooth, hypodense right renal lesions, not otherwise characterized on this noncontrast study. There is a question of an internal septations involving an approximately 3.8 x 2.8 cm right lower pole such lesion. On May 30, 2022 this lesion may have measured approximately 3.7 x 2.5 cm, therefore probably benign. The right kidney otherwise appears unremarkable in size, shape, and attenuation. Approximately 0.7 cm, nonobstructing right lower pole collecting system stone. No evidence of hydronephrosis or hydroureter. BLADDER: Unremarkable GASTROINTESTINAL TRACT: Status post gastric bypass. Question small hiatus hernia. Small amount of fluid within the esophagus, raising suspicion for an element of reflux and/or dysmotility. Fluid throughout distal small bowel as well as the ascending and transverse colon. Small to moderate amount of stool within the descending and sigmoid colon. Normal-appearing distal ileum. ABDOMINAL WALL: Postsurgical changes and surgical mesh placement associated with presumed partial resection of the left lateral abdominal wall, not significantly changed compared with most recent prior. No significant hernia is appreciated. LYMPH NODES: No evidence of adenopathy by size criteria. VASCULAR: Unremarkable PELVIC VISCERA: Status post hysterectomy. OSSEOUS STRUCTURES: Unremarkable CT/CT abdomen pelvis wo IV con IMPRESSION: Fluid throughout distal small bowel as well as the ascending and transverse colon, suggesting an element of hypersecretion. Small to moderate amount of stool within the descending and sigmoid colon. Postsurgical changes as above. Additional findings as above. Electronically signed by: Shravan Slaughter MD 01/26/2024 07:38 AM EDT
--- NOTE | ~2024-01-22 | CT_ITS ---
EXAMINATION: CT angio head neck stroke CLINICAL INFORMATION: Left-sided weakness. COMPARISON: CT head 02/04/2024. CT angiogram head and neck 01/22/2024. TECHNIQUE: [employer] images were obtained. A CT angiogram of the head and neck was performed in the arterial phase after the intravenous administration of 70 mL Omnipaque 350. Pre and delayed postcontrast images of the head were also obtained. 3D images were processed on an independent workstation under concurrent supervision. Arterial stenoses are measured in accordance with NASCET criteria or similar method if applicable. This CT examination was performed using dose optimization techniques as appropriate, including one or more of the following: Automated exposure control, iterative reconstruction, and adjustment of technique factors (mA and/or kVp) according to patient size (this includes techniques or standardized protocols for targeted exams where dose is matched to indication/reason for exam). Fleischner Society criteria for the followup of incidental pulmonary nodules was implemented if appropriate. Total exam dose-length product 1408 mGy-cm FINDINGS: Head: There is a tiny developmental venous anomaly traversing the left frontal lobe. Postcontrast images reveal no abnormal intracranial mass or enhancement. There is no intracranial mass effect or midline shift. Lateral and third ventricles are normal. No hydrocephalus. Mckeon-white matter differentiation is preserved and there is no evidence of acute territorial infarct. The calvarium and skull base are intact. No mastoid or middle ear effusion. No active paranasal sinus disease. CT angiogram neck: There is an aberrant right subclavian artery. Origins of the major aortic branches are otherwise patent. Common carotid arteries are normal and the carotid bifurcations are normal. No stenosis of the extracranial internal carotid arteries. The cervical segments of the vertebral arteries are widely patent. CT angiogram head: The intracranial internal carotid arteries are normal. The intradural vertebral artery segments and basilar artery are normal. Anterior, middle, and posterior cerebral artery complexes are normal. No intracranial large vessel occlusion. No identifiable aneurysm or high flow vascular lesion. Other: There is a multinodular thyroid gland. Soft tissues of the neck are otherwise unremarkable. Grossly no pathologically enlarged cervical lymph nodes. Visualized lung apices are clear. No acute osseous finding. CT/CT angio head neck stroke IMPRESSION: Unremarkable examination in that there is no stenosis of the cervical carotid or vertebral arteries. No intracranial large vessel occlusion. No evidence of acute territorial infarct or hemorrhage. No abnormal intracranial mass or enhancement. This critical result was discussed with Dr. Obregon at 3:02 PM on 02/04/2024 and it was ascertained that the content and urgency of the report was understood at the time of direct communication. Electronically signed by: Vincenzo Brizuela MD 02/04/2024 03:04 PM EDT
--- NOTE | 2024-01-22 09:04 | ECG_ITS ---
Test Reason : dizzy Blood Pressure : / mmHG Vent. Rate : 046 BPM Atrial Rate : 046 BPM P-R Int : 136 ms QRS Dur : 086 ms QT Int : 510 ms P-R-T Axes : 034 050 042 degrees QTc Int : 446 ms Sinus bradycardia Otherwise normal ECG When compared with ECG of 04-JAN-2024 16:46, No significant change was found Referred By: Generic ED Physician Electronically Signed By:TRISTAN NAM
[2024-01-22 09:19] LABS: MANUAL DIFF FLAG NO
[2024-01-22 09:26] LABS: Basophils Percent Auto 0.4 % (0-2); Eosinophils Percent Auto 0.2 % (0-4); Hematocrit 40.1 % (37.0-47.0); Hemoglobin 13.9 g/dl (12.0-16.0); Imm Gran Abs Auto 0.01 X10*3/uL (0.00-0.03); Imm Gran Pct Auto 0.2 % (0.0-0.4); Lymphocytes Absolute Auto 1.1 X10*3/uL (1.2-4.9); Lymphocytes Percent Auto 25.2 % (20-40); Mean Corpuscular HGB Conc 34.7 g/dl (31.0-35.0); Mean Corpuscular Hemoglobin 34.3 pg (27.0-33.0); Mean Platelet Volume 9.4 fL (9.4-12.3); Monocytes Absolute Auto 0.2 X10*3/uL (0.1-1.2); Monocytes Percent Auto 5.1 % (2-11); Neutrophils Absolute Auto 3.1 x10*3/uL (2.0-8.3); Neutrophils Percent Auto 68.9 % (45-73); Platelet Count 261 X10*3/uL (160-400); Red Blood Count 4.05 X10*6/uL (4.20-5.50); Red Cell Distribution Width 11.7 % (11.0-16.0); White Blood Count 4.5 X10*3/uL (4.8-10.8)
[2024-01-22 09:35] LABS: Alanine Aminotransferase 28 U/L (0-31); Albumin Level 3.9 g/dL (3.5-5.0); Alkaline Phosphatase 119 U/L (39-117); Anion Gap 14 (12-20); Aspartate Amino Transferase 21 U/L (5-31); Bilirubin Total 0.8 mg/dL (0.0-1.0); Blood Urea Nitrogen 11 mg/dL (9-16); Calcium 9.1 mg/dL (8.4-10.2); Carbon Dioxide 16 mmol/L (22-29); Chloride 116 mmol/L (96-108); Creatinine Clr Calc Pharmacy 69.3; Estimated Glomerular Filt Rate > 60; Glucose Random 118 mg/dL (60-115); Magnesium 1.8 mg/dL (1.6-2.6); Potassium 3.5 mmol/L (3.3-5.1); Sodium 142 mmol/L (135-145)
[2024-01-22 10:06] LABS: Influenza A PCR NEGATIVE (Negative); Influenza B PCR NEGATIVE (Negative); Resp Syncy Virus RNA Qual PCR NEGATIVE (Negative); SARS COV2 PCR INHOUSE NEGATIVE (Negative)
--- NOTE | 2024-01-22 11:58 | ED.GENADULT ---
HPI - General Adult General Chief complaint: General Medical Stated complaint: flu symptons Time Seen by Provider: 01/22/24 11:34 Source: patient and family Mode of arrival: ambulatory Limitations: language barrier History of Present Illness ED Provider: Margarita HPI narrative: 53yo F PMHx nephrectomy, orthostatic hypotension, panniculitis, b/l leg weakness, MILI, gastric bypass, GERD, HLD presenting with a 4-day history of weakness, dizziness ( room spinning), dry cough, chills, nausea, and diarrhea. Symptoms have been progressively worsening. At home COVID test was negative. Reports shes on Macrobid but doesnt know why. Denies fevers, chills, nausea, vomiting, cp, sob, sick contacts, recent travel. Related Data Home Medications ?Medication ?Instructions ?Recorded ?Confirmed lorazepam 1 mg tablet 1 mg PO BID PRN Anxiety 11/02/22 01/23/24 potassium citrate 5 mEq (540 mg) 5 meq PO DAILY 06/13/23 01/23/24 tablet,extended release melatonin 5 mg tablet 5 mg PO BEDTIME PRN Insomnia 07/14/23 01/23/24 mirtazapine 15 mg tablet 15 mg PO BEDTIME 12/05/23 01/23/24 naproxen 500 mg tablet 500 mg PO DAILY 12/05/23 01/23/24 topiramate 100 mg tablet 100 mg PO DAILY 12/05/23 01/23/24 nitrofurantoin 1 cap PO BID 01/22/24 01/23/24 monohydrate/macrocrystals 100 mg capsule albuterol sulfate 90 mcg/actuation 2 puff inhalation Q6H PRN wheezing 01/23/24 01/23/24 aerosol inhaler (Ventolin HFA) diphenhydramine HCl 25 mg capsule 25 mg PO TID PRN allergies 01/23/24 01/23/24 (Banophen) lurasidone 40 mg tablet 40 mg PO DAILY 01/23/24 01/23/24 pantoprazole 40 mg tablet,delayed 40 mg PO DAILY@0630 01/23/24 01/23/24 release sumatriptan succinate 50 mg tablet 50 mg PO BID PRN Migraine Headache 01/23/24 01/23/24 Previous Rx's ?Medication ?Instructions ?Recorded CPAP device and all related #1 ea 06/03/22 supplies cyanocobalamin (vitamin B-12) 500 500 mcg PO DAILY #30 tabs 06/03/22 mcg tablet nystatin 100,000 unit/mL oral 1 ml PO TID 10 days #30 mL 06/21/23 suspension blood pressure monitor #1 ea 07/13/23 docusate sodium 100 mg capsule 100 mg PO DAILY #30 caps 07/26/23 bisacodyl 5 mg tablet,delayed 10 mg (2 x 5 mg) PO BEDTIME #180 08/30/23 release (Dulcolax (bisacodyl)) tabs rosuvastatin 5 mg tablet 5 mg PO DAILY #90 tabs 08/31/23 cholecalciferol (vitamin D3) 25 25 mcg PO DAILY 90 days #90 caps 09/27/23 mcg (1,000 unit) capsule (Vitamin D3) tramadol 50 mg tablet 100 mg (2 x 50 mg) PO Q8H PRN 11/13/23 severe pain 30 days #180 tabs mometasone 0.1 % topical cream 1 appl topical DAILY PRN rash #45 11/30/23 grams ferrous sulfate 325 mg (65 mg 325 mg PO DAILY #90 tabs 12/31/23 iron) tablet gabapentin 400 mg capsule 800 mg (2 x 400 mg) PO TID 30 days 01/03/24 #180 caps meclizine 25 mg tablet 25 mg PO TID PRN dizziness 30 days 01/04/24 #90 tabs midodrine 10 mg tablet 10 mg PO TID #30 tabs 01/04/24 Allergies Allergy/AdvReac Type Severity Reaction Status Date / Time acetaminophen AdvReac Unknown Unknown Verified 01/22/24 09:01 atorvastatin AdvReac Severe elevated Uncoded 01/22/24 09:01 liver enzymes Review of Systems Review of Systems: Yes all other systems are reviewed and are negative PMFSH Past Medical History Attestation statement: The following information was validated with the patient. Source: old records reviewed, obtained from family and nursing notes reviewed Medical History Chronic kidney disease, stage III (moderate) Obesity (BMI 30-39.9) Renal cyst Diverticulosis Tubular adenoma Asthma Spondylosis of lumbar spine Sacroiliitis Dizziness of unknown etiology Chronic constipation Hx of schizophrenia Panic attacks PTSD (post-traumatic stress disorder) MIGUEL (obstructive sleep apnea) Dyspareunia Pyelonephritis Ingrown toenail Iron deficiency anemia Major depression, recurrent Anxiety Insomnia Tremor Orthostatic hypotension Incisional hernia without obstruction or gangrene Avascular necrosis of femoral head Bilateral carpal tunnel syndrome Peroneal neuropathy Lumbar degenerative disc disease Vitamin D deficiency GERD (gastroesophageal reflux disease) Migraine Hyperlipidemia Surgical History History of left nephrectomy (~1999) History of colonoscopy History of surgery Hx of cystoscopy History of bilateral breast reduction surgery History of hysterectomy History of cholecystectomy History of endoscopy (~06/2016) History of bladder repair surgery (~03/2015) S/P cystoscopy (~07/30/12) S/P panniculectomy History of hernia repair (~03/29/10) History of bladder surgery (~10/2009) History of gastric bypass (~2008) History of incisional hernia repair (~1999) Hx of umbilical hernia repair (~1999) H/O left nephrectomy S/P laparoscopic sleeve gastrectomy Family History Family History Father Liver cancer Mother Breast cancer Sister Lung cancer Other Mental health problem Social History Social History Household Members: Family Housing: House Do you presently have visiting nurse or other home services: No Alcohol intake: never Patient Tobacco Use Status: Never used Tobacco Smoked in Last 30 Days: No e-Cigarette/Vaping Use: Never Used Second Hand Smoke Exposure: No Use of substances other than those prescribed or required for medical reasons: No Have you been hit, kicked, punched, or otherwise hurt by someone within the past year? If so, by whom?: No Do you feel safe in your current relationship?: Yes Is there a partner from a previous relationship who is making you feel unsafe now?: No Are you made to feel afraid or neglected: No Advance Directives: Yes Advance Directives on File: Yes Advance Directives Date on File: 07/12/21 Do you have a plan to hurt others: No Plan Recently lost weight without trying: No Patient : No : No Poor oral hygiene: No service: No Current occupational status: disabled Sexual orientation: Straight/Heterosexual Cognitive needs: No Hearing needs: No Vision needs: Yes Physical Exam ED Vital Signs: Vital Signs - 24 hr 01/22/24 22:55 01/23/24 00:00 01/23/24 02:00 Temperature 97.6 F 99.0 F 98.1 F Pulse Rate 73 71 52 Respiratory Rate 18 19 19 Blood Pressure 105/64 107/62 128/71 Pulse Oximetry 99 100 100 Oxygen Delivery Method Room Air Room Air Room Air 01/23/24 04:06 01/23/24 06:15 01/23/24 07:05 Temperature 98.3 F Pulse Rate 65 85 Respiratory Rate 16 16 18 Blood Pressure 125/79 116/70 Pulse Oximetry 97 Oxygen Delivery Method Room Air BMI result Body Mass Index 30.6 VSS Appearance: Alert.? Oriented X3.? No acute distress.?Appears fatigued and weak Head: Normocephalic, atraumatic Eyes: Pupils equal, round and reactive to light.? CVS: Bradycardic in the 50s with regular rhythm? Pulses normal.? Respiratory: No respiratory distress.? Breath sounds normal.? Abdomen: Soft and nontender.?Hypoactive bowel sounds Skin: Skin warm and dry.? Normal skin color.? Normal skin turgor.? Extremities: No lower extremity edema.? No calf ttp. 4/5 strength to bilateral upper and lower extremities Neuro: Oriented X 3.? No motor deficit.? No sensory deficit. CN 2-12 intact . Normal finger to nose, ambulating w/ slow steady gait normal coordination. Course Reevaluation(s) Reevaluation #1: CBC with slight leukopenia this is likely nonspecific or could be secondary to viral illness. Chemistry no acute findings necessitating intervention. Trop negative, EKG non ischemic. UA, imaging pending as well as orthostatic vitals. Time: 13:30 Reevaluation #2: Patient began hyperventilating and telling me she is anxious, depressed and suicidal. No particular plan. Time: 14:24 Reevaluation #3: ENT Dr. Ruiz states that dehiscence of semilunar canal is likely transient, unlikely causing patient's symptoms. NIHSS- 0 i do not suspect posterior stroke, her symptoms have improved in terms of dizziness. Time: 15:37 Additional Reevaluation(s): 1545 UA, orthostats, revaluation pending. Sign out to Oumar GUZMAN Medications Administered Generic Name Dose Route Start Last Admin Trade Name Freq PRN Reason Stop Dose Admin Al Hydroxide/Mg Hydroxide 30 ml 01/23/24 14:18 01/23/24 20:02 Magnesium Hydrox/Alum Hydrox 30 Ml Oral.Susp PO 30 ml Q6H PRN Administration Heartburn/Nausea Aripiprazole 5 mg 01/23/24 09:00 01/23/24 09:05 Aripiprazole 5 Mg Tablet PO 5 mg DAILY JYOTHI Administration Bisacodyl 10 mg 01/23/24 01:30 01/23/24 19:58 Bisacodyl 5 Mg Tablet. PO 10 mg BEDTIME JYOTHI Administration Cyanocobalamin 500 mcg 01/23/24 09:00 01/23/24 09:20 Cyanocobalamin (Vitamin B-12) 500 Mcg Tablet PO 500 mcg DAILY JYOTHI Administration Diphenhydramine HCl 50 mg 01/23/24 01:30 01/23/24 19:58 Diphenhydramine Hcl 25 Mg Capsule PO 50 mg BEDTIME JYOTHI Administration Docusate Sodium 100 mg 01/23/24 09:00 01/23/24 09:12 Docusate Sodium 100 Mg Capsule PO Not Given DAILY JYOTHI Ferrous Sulfate 324 mg 01/23/24 09:00 01/23/24 09:05 Ferrous Sulfate 324 Mg Tablet. PO 324 mg DAILY JYOTHI Administration Gabapentin 800 mg 01/23/24 01:30 01/23/24 19:58 Gabapentin 400 Mg Capsule PO 800 mg TID JYOTHI Administration Lurasidone HCl 20 mg 01/23/24 08:00 01/23/24 09:20 Lurasidone Hcl 20 Mg Tablet PO 20 mg DAILY@0800 JYOTHI Administration Meclizine HCl 25 mg 01/23/24 01:21 01/23/24 17:23 Meclizine Hcl 25 Mg Tablet PO 25 mg TID PRN Administration dizziness Melatonin 6 mg 01/23/24 01:21 01/23/24 20:07 Melatonin 3 Mg Tablet PO 6 mg BEDTIME PRN Administration Insomnia Midodrine 10 mg 01/23/24 01:30 01/23/24 18:41 Midodrine Hcl 10 Mg Tablet PO Not Given TID@0800,1300,1800 JYOTHI Mirtazapine 15 mg 01/23/24 01:30 09/24/24 19:58 Mirtazapine 15 Mg Tablet PO 15 mg BEDTIME JYOTHI Administration Nitrofurantoin Macrocrystals 100 mg 01/22/24 21:45 01/23/24 19:58 Nitrofurantoin Monohyd/M-Cryst 100 Mg Capsule PO 100 mg BID JYOTHI Administration Psyllium Hydrophilic Mucilloid 3.7 gm 01/23/24 09:00 01/23/24 09:26 Psyllium Seed 3.7 Gm Packet PO Not Given DAILY JYOTHI Topiramate 100 mg 01/23/24 09:00 01/23/24 09:05 Topiramate 100 Mg Tablet PO 100 mg DAILY JYOTHI Administration Trazodone HCl 50 mg 01/23/24 14:18 01/23/24 20:07 Trazodone Hcl 50 Mg Tablet PO 50 mg BEDTIME MRX1 PRN Administration Insomnia Vitamin D 25 mcg 01/23/24 09:00 01/23/24 09:05 Cholecalciferol (Vitamin D3) 25 Mcg Tablet PO 25 mcg DAILY JYOTHI Administration Discontinued Medications Generic Name Dose Route Start Last Admin Trade Name Gerardoq PRN Reason Stop Dose Admin Sodium Chloride 1,000 mls @ 999 mls/hr 01/22/24 15:45 01/22/24 19:17 Ns IV 01/22/24 16:45 Infused .Q1H1M JYOTHI Infusion Iohexol 100 ml 01/22/24 13:02 01/22/24 13:03 Iohexol 350 Mg/Ml 100 Ml Infus..Btl IV 01/22/24 13:03 70 ml ONCE ONE Administration Lorazepam 0.5 mg 01/22/24 14:14 01/22/24 14:24 Lorazepam 0.5 Mg Tablet PO 01/22/24 14:15 Not Given ONCE ONE Lorazepam 1 mg 01/22/24 14:20 01/22/24 14:24 Lorazepam 2 Mg/Ml Vial IVPUSH 01/22/24 14:21 1 mg ONCE ONE Administration Lorazepam 1 mg 01/22/24 15:14 01/22/24 15:17 Lorazepam 2 Mg/Ml Vial IVPUSH 01/22/24 15:15 1 mg STAT STA Administration Lorazepam 1 mg 01/22/24 19:16 01/22/24 19:19 Lorazepam 2 Mg/Ml Vial IVPUSH 01/22/24 19:17 1 mg STAT STA Administration Lorazepam 1 mg 01/23/24 08:50 01/23/24 09:05 Lorazepam 1 Mg Tablet PO 01/23/24 08:51 1 mg ONCE ONE Administration Meclizine HCl 25 mg 01/22/24 12:31 01/22/24 13:15 Meclizine Hcl 25 Mg Tablet PO 01/22/24 12:32 25 mg ONCE ONE Administration Melatonin 6 mg 01/23/24 00:38 01/23/24 01:03 Melatonin 3 Mg Tablet PO 01/23/24 00:39 Not Given ONCE ONE Melatonin 6 mg 01/23/24 02:14 01/23/24 02:55 Melatonin 3 Mg Tablet PO 01/23/24 02:15 6 mg ONCE ONE Administration Midodrine 5 mg 01/23/24 18:38 01/23/24 18:46 Midodrine Hcl 5 Mg Tablet PO 01/23/24 18:39 5 mg ONCE ONE Administration Ondansetron HCl 4 mg 01/23/24 10:05 01/23/24 10:09 Ondansetron Odt 4 Mg Tab.Rapdis TRANSLINGU 01/23/24 10:06 4 mg ONCE ONE Administration Medical Decision Making Medical Decision Making MDM Narrative: 53yo F presents with a 4-day history of weakness, dizziness, cough, chills, nausea, and diarrhea. PE: Bradycardic in the 50s with regular rhythm. 3/5 strength to bilateral upper and lower extremities Hx and PE concerning for viral illness vs dehydration vs gi bleed vs metabolic derangement. Less likely, CVA, [place], arrhythmia, multiple myeloma, posterior stroke, ich Plan: orthostatics, labs, serology 5:54pm: Orthostatics negative. Patient had normal gait walked to the bathroom with walker which is baseline. 2:29am; patient is awaiting evaluation by care team for SI severe anxiety. Patient states when she has panic attacks usually gets contraction of the hands and feet. Patient takes Ativan at home. Reconcile med started. Physician observation began. 01/03/2024, 16:34: The patient has been stable in physician observation in our psychiatric unit in the emergency department. The patient has been accepted for psychiatric hospitalization on an inpatient unit. The patient therefore be taken out of physician observation and admitted as an inpatient. The patient has been stable. Froylan Gaytan Differential Diagnosis Differential Diagnoses: The differential diagnosis associated with the presentation includes (Hx and PE concerning for viral illness vs dehydration vs GIB vs metabolic derangement. Less likely, CVA, [place], arrhythmia, multiple myeloma. ) Admission/Observation Consideration of admission/observation: Escalation of care including admission/observation considered Possible Lab Data MDM Lab Attestation statement: I reviewed the patient's lab results. 01/22/24 09:14 01/22/24 09:14 Labs: Lab Results 01/22/24 01/22/24 01/23/24 Range/Units 09:14 17:51 01:26 WBC 4.5 L (4.8-10.8) X10*3/uL RBC 4.05 L (4.20-5.50) X10*6/uL Hgb 13.9 (12.0-16.0) g/dl Hct 40.1 (37.0-47.0) % MCV 99.0 H (80.0-98.0) fL MCH 34.3 H (27.0-33.0) pg MCHC 34.7 (31.0-35.0) g/dl RDW 11.7 (11.0-16.0) % Plt Count 261 (160-400) X10*3/uL MPV 9.4 (9.4-12.3) fL Immature Gran % (Auto) 0.2 (0.0-0.4) % Neut % (Auto) 68.9 (45-73) % Lymph % (Auto) 25.2 (20-40) % [place] % (Auto) 5.1 (2-11) % Eos % (Auto) 0.2 (0-4) % Baso % (Auto) 0.4 (0-2) % Lymph # (Auto) 1.1 L (1.2-4.9) X10*3/uL [place] # (Auto) 0.2 (0.1-1.2) X10*3/uL Eos # (Auto) 0.0 (0.0-0.4) X10*3/uL Baso # (Auto) 0.0 (0.0-0.2) X10*3/uL Abs Immat Gran (auto) 0.01 (0.00-0.03) X10*3/uL Absolute Neuts (auto) 3.1 (2.0-8.3) x10*3/uL Absolute Nucleated RBC 0.000 (0.0-0.012) X10*3/uL Nucleated RBC % (auto) 0.0 (0.0-0.2) /100WBC Sodium 142 (135-145) mmol/L Potassium 3.5 D (3.3-5.1) mmol/L Chloride 116 H (96-108) mmol/L Carbon Dioxide 16 L (22-29) mmol/L Anion Gap 14 (12-20) BUN 11 (9-16) mg/dL Creatinine 0.92 (0.5-1.4) mg/dL Estim Creat Clear Calc 69.3 Estimated GFR > 60 Random Glucose 118 H (60-115) mg/dL Calcium 9.1 (8.4-10.2) mg/dL Magnesium 1.8 (1.6-2.6) mg/dL Total Bilirubin 0.8 (0.0-1.0) mg/dL AST 21 (5-31) U/L ALT 28 (0-31) U/L Alkaline Phosphatase 119 H (39-117) U/L Troponin I High Sens < 2.7 (<3.5-17.0) ng/L Total Protein 7.0 (6.5-8.0) g/dL Albumin 3.9 (3.5-5.0) g/dL Urine Color Yellow Urine Appearance Clear Urine pH 7.0 (5.0-9.0) Ur Specific [place] >= 1.030 H (1.005-1.025) Urine Protein Negative (Neg-Trace) mg/dL Urine Glucose (UA) Negative (Negative) mg/dL Urine Ketones 40 (Negative) mg/dL Urine Blood Small (1+) H (Negative) Urine Nitrite Negative (Negative) Ur Leukocyte Esterase Negative (Negative) Urine RBC >20 H (0-2) /HPF Urine WBC 0-5 (0-5) /HPF Ur Squamous Epith Cells 0-2 (0-2) /HPF Urine Bacteria None Seen (None Seen) Hyaline Casts 0-2 (0-2) /LPF Urine Opiates Screen Not Detected (Not Detect) Ur Buprenorphine Scrn Not Detected (Not Detect) ng/mL Ur Oxycodone Screen Not Detected (Not Detect) ng/mL Urine Methadone Screen Not Detected (Not Detect) ng/mL Urine Fentanyl Screen Not Detected (Not Detect) Ur Barbiturates Screen Not Detected (Not Detect) Ur Phencyclidine Scrn Not Detected (Not Detect) Ur Amphetamines Screen Not Detected (Not Detect) U Benzodiazepines Scrn Not Detected (Not Detect) Urine Cocaine Screen Not Detected (Not Detect) U Marijuana (THC) Screen Not Detected (Not Detect) Influenza Type A (PCR) NEGATIVE (Negative) Influenza Type B (PCR) NEGATIVE (Negative) RSV RNA Qual (PCR) NEGATIVE (Negative) SARS-CoV-2 RNA (RT-PCR) NEGATIVE (Negative) Independent Interpretation I performed an independent interpretation of an: EKG (Vent. Rate : 046 BPM Atrial Rate : 046 BPM P-R Int : 136 ms QRS Dur : 086 ms QT Int : 510 ms P-R-T Axes : 034 050 042 degrees QTc Int : 446 ms Sinus bradycardia Otherwise normal ECG When compared with ECG of 04-JAN-2024 16:46, No significant change was found) Radiology Impression Discussion of test interpretation with radiology: I have reviewed the radiologist's reading. External Record Review External record reviewed: Inpatient record, Office record, Outpatient record, Prior outpatient labs, Prior outpatient radiology, Primary care record and Outside ED record Chronic Conditions Patient?s care impacted by: Other (see hpi ) Critical Care Time Critical Care Time Critical Care Time: Yes Total Critical Care Time: 35 Attestation: I attest to this time spent taking care of the patient, obtaining history, physical, reviewing labs, imaging, treatment of patients condition +/- specialist/hospitalist consult Discharge Plan Discharge Clinical Impression: URI (upper respiratory infection), Dizziness, Depression with suicidal ideation Patient Disposition: Still a Patient Interventions: Admission Worksheet (ED) Last Done: 01/23/24 16:20 Discharge Date/Time: 01/23/24 16:34
[2024-01-22 12:15] LABS: Troponin-I High Sensitivity < 2.7 ng/L (<3.5-17.0)
[2024-01-22] MEDS: iohexoL 350 MG/ML 100 ML INFUS..BTL IV (13:03)
[2024-01-22] MEDS: Meclizine HCl 25 MG TABLET PO (13:15)
[2024-01-22] MEDS: LORazepam 2 MG/ML VIAL 1 MG IVPUSH ×3 (14:24→19:19)
--- NOTE | 2024-01-22 14:25 | PC.NURSE ---
patient reports panic attack and hyperventilating and hands contracted and feet stiff. Pt alert and oriented anwsering questions. Pt endorses severe depression and anxiety. MD at bedside to re-assess.
--- NOTE | 2024-01-22 15:54 | MHC.EDTECH ---
Walked patient to bathroom with walker
[2024-01-22] MEDS: 0.9 % Sodium Chloride 1,000 ML 999 ML IV (16:03)
[2024-01-22 18:01] LABS: Appearance Urine Clear; Color Urine Yellow; Glucose Urine UA Negative (Negative); Leukocyte Esterase Urine Negative (Negative); Nitrite Urine Negative (Negative); Specific Gravity - Urine >= 1.030 (1.005-1.025); UMIC TRIGGER UACC YES; Urine Blood Small (1+) (Negative); Urine Ketones 40 mg/dL (Negative); Urine Protein Negative (Neg-Trace)
[2024-01-22 18:06] LABS: Bacteria Urine None Seen (None Seen); Hyaline Casts Urine 0-2 /LPF (0-2); RBC Urine >20 /HPF (0-2); Squamous Epithelial Cell Urine 0-2 /HPF (0-2); WBC Urine 0-5 /HPF (0-5)
--- NOTE | 2024-01-22 19:22 | PC.NURSE ---
Patient reports numbness to face and contractures to hands and feet. Pt alert and oriented and speaking through epsiodes. MD made aware and reassess at bedside. vitals wnl
[2024-01-22] MEDS: Nitrofurantoin Monohyd/M-Cryst 100 MG CAPSULE PO (22:17)
[2024-01-23] VITALS (9 sets, daily range): BP systolic 107–140; BP diastolic 62–87; PULSE 52–85; RESP 14–20; TEMP 36.7–37.2; O2SAT 97–100; BMI 27.8
--- NOTE | 2024-01-23 00:39 | PC.NURSE ---
Addendum entered by Tasneem Aleman 01/23/24 03:06: Pt upset that provider will not give her IV ativan. Pt redirected and educated on reasons. Original Note: This automobile and property underwriter assumed care of this Pt at 2300. Pt A&Ox3, reports having a panic attack, hand noted to be contracted. Provider Zen made aware, no new orders at this time. Pt speaking in full sentences. Med rec done, Pt able to verbalize home meds.
--- NOTE | 2024-01-23 00:54 | PC.NURSE ---
Pt reports increase depression, more life stresses and SI with plan of jumping out in front of car. Pt changed over by t/w and medical dermatologist, belonging in C6.
[2024-01-23 01:55] LABS: Amphetamine Screen Urine Not Detected (Not Detect); Barbiturates, Urine Not Detected (Not Detect); Benzodiazepines Screen Urine Not Detected (Not Detect); Buprenorphine Scr Not Detected (Not Detect); Cannabinoid Screen Urine Not Detected (Not Detect); Cocaine Screen Urine Not Detected (Not Detect); Fentanyl, urine Not Detected (Not Detect); Methadone Screen, Urine Not Detected (Not Detect); Opiate Screen Urine Not Detected (Not Detect); Oxycodone Screen Urine Not Detected (Not Detect); Phencyclidine Screen Urine Not Detected (Not Detect)
--- NOTE | 2024-01-23 02:38 | PC.NURSE ---
Pt ambulated to the BR with steady gait, no assistive devices.
[2024-01-23] MEDS: Melatonin 3 MG TABLET 6 MG PO ×2 (02:55→20:07)
[2024-01-23] MEDS: diphenhydrAMINE HCL 25 MG CAPSULE 50 MG PO ×2 (02:55→19:58)
--- NOTE | 2024-01-23 03:10 | PC.NURSE ---
Report given to RN. Pt will be brought over to pod. Pt aware of plan.
[2024-01-23] MEDS: Meclizine HCl 25 MG TABLET PO ×3 (04:07→17:23)
--- NOTE | 2024-01-23 07:10 | PC.NURSE ---
Addendum entered by Cecil Mullen RN 01/23/24 07:27: MD with orders. Give another dose of Meclizine 25mg PO now. Original Note: Assumed care of patient at 0645. At this time the patient is resting quietly in their bed. No signs of distress observed. Patient did c/o of dizziness. Patient received Meclizine 25mg PO at 0407. VS signs obtained and WNL. made aware.
[2024-01-23] MEDS: ARIPiprazole 5 MG TABLET PO (09:05)
[2024-01-23] MEDS: Gabapentin 400 MG CAPSULE 800 MG PO ×3 (09:05→19:58)
[2024-01-23] MEDS: Nitrofurantoin Monohyd/M-Cryst 100 MG CAPSULE PO ×2 (09:05→19:58)
[2024-01-23] MEDS: Midodrine HCl 10 MG TABLET PO ×2 (09:05→14:59)
[2024-01-23] MEDS: Topiramate 100 MG TABLET PO (09:05)
[2024-01-23] MEDS: Cholecalciferol (Vitamin D3) 25 MCG TABLET PO (09:05)
[2024-01-23] MEDS: LORazepam 1 MG TABLET PO (09:05)
[2024-01-23] MEDS: Ferrous Sulfate 324 MG TABLET.DR PO (09:05)
[2024-01-23] MEDS: Cyanocobalamin (Vitamin B-12) 500 MCG TABLET PO (09:20)
[2024-01-23] MEDS: Lurasidone HCl 20 MG TABLET PO (09:20)
[2024-01-23] MEDS: Ondansetron ODT 4 MG TAB.RAPDIS TRANSLINGU (10:09)
--- NOTE | 2024-01-23 11:18 | PHA.MEDREC ---
Addendum entered by Jude Pollack RPh 01/23/24 11:48: Reviewed by [facility]. Original Note: Pharmacy Consult ? Medication Reconciliation Pharmacy has completed the medication reconciliation. Spoke to patients Daughter over the phone and she was able to confirm with her mother. daughter states she is on bot Omeprazole 20 , last fill 10/23/23 for 90 days mg and Pantoprazole 40 mg 12/05/23 for 90 days , left on most recent fill. Lurasidone is 40 mg .
--- NOTE | 2024-01-23 18:09 | PC.ADMIT ---
Pt is a 53-year-old, Cymro speaking, female admitted to on a CV at 1625 from [facility] for increased anxiety/depression, and AH/VH. 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 Pt has a history of schizophrenia, depression, and anxiety. Pt reported she stopped taking her medications approximately one month ago after not being able to refill medications. Pt also complained of dizziness and URI symptoms that began several days ago. COVID/RSV/Flu negative in ED. CT head/neck obtained in ED. Pt has lengthy medical hx that includes CPAP at , as well as currently on antibiotic for UTI. Pt lives with , who pt reported is a good support. Pt stated she was doing well, but over past few weeks she has experienced command AH to harm self, as well as VH of a man and shadow figures. Pt reported AVH was frightening to her, and became tearful when she discussed it during the admission process. Pt was actively hallucinating during admission assessment, telling creative writer ?I see him standing right behind you.? Pt denied any thoughts/desires to harm self, and reported feeling very bothered by the command AH.? Pt help seeking, and hopeful to get back to baseline. Pt struggles with high anxiety with reported frequent panic attacks that cause temporary ?paralysis? of limbs. Pt is connected to mental health providers at [facility]/ [facility]. Pt denied nicotine use, denied ETOH use, and denied substance. UTOX negative. Pt placed on 15 minutes checks.
[2024-01-23] MEDS: Midodrine HCl 5 MG TABLET PO (18:46)
[2024-01-23] MEDS: Mirtazapine 15 MG TABLET PO (19:58)
[2024-01-23] MEDS: bisacodyL 5 MG TABLET.DR 10 MG PO (19:58)
[2024-01-23] MEDS: Magnesium Hydrox/Alum Hydrox 30 ML ORAL.SUSP PO (20:02)
[2024-01-23] MEDS: traZODone HCL 50 MG TABLET PO (20:07)
[2024-01-24 08:00] VITALS: BP 111/61; PULSE 60; RESP 14; TEMP 36.5; O2SAT 98
[2024-01-24 08:17] VITALS: BP 111/61
[2024-01-24] MEDS: Psyllium seed 3.7 GM PACKET PO (08:17)
[2024-01-24] MEDS: Midodrine HCl 10 MG TABLET PO ×3 (08:17→17:26)
[2024-01-24] MEDS: Docusate Sodium 100 MG CAPSULE PO (08:18)
[2024-01-24] MEDS: Cyanocobalamin (Vitamin B-12) 500 MCG TABLET PO (08:18)
[2024-01-24] MEDS: Topiramate 100 MG TABLET PO (08:18)
[2024-01-24] MEDS: Ferrous Sulfate 324 MG TABLET.DR PO (08:18)
[2024-01-24] MEDS: Gabapentin 400 MG CAPSULE 800 MG PO ×3 (08:18→20:42)
[2024-01-24] MEDS: ARIPiprazole 5 MG TABLET PO (08:18)
[2024-01-24] MEDS: Nitrofurantoin Monohyd/M-Cryst 100 MG CAPSULE PO ×2 (08:18→20:42)
[2024-01-24] MEDS: Cholecalciferol (Vitamin D3) 25 MCG TABLET PO (08:18)
[2024-01-24] MEDS: Lurasidone HCl 20 MG TABLET PO (08:18)
[2024-01-24 08:48] LABS: Estimated Average Glucose 103 mg/dL; Hemoglobin A1C 113.6196 umol/L; Hemoglobin A1c % 5.2 % (<6.0); Total Hemoglobin (HGBA1C) 3401.2593 umol/L
[2024-01-24] MEDS: Meclizine HCl 25 MG TABLET PO ×2 (08:50→14:29)
[2024-01-24 09:07] LABS: Cholesterol 208 mg/dL (<200); HDL Cholesterol 62 mg/dL (>40); LDL Cholesterol Calculated 129 mg/dL (<100); Triglycerides 85 mg/dL (<150)
[2024-01-24 09:21] LABS: TSH reflex Free T4 0.82 uIU/mL (0.32-4.0)
[2024-01-24] MEDS: Flu Vacc TS2024-25(6mos up)/PF 0.5 ML SYRINGE IM (09:27)
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
[2024-01-24 13:26] VITALS: BP 136/78
[2024-01-24] MEDS: hydrOXYzine HCL 25 MG TABLET PO (15:25)
[2024-01-24 17:26] VITALS: BP 141/73
[2024-01-24] MEDS: Cariprazine HCl 1.5 MG CAPSULE PO (19:53)
[2024-01-24 20:00] VITALS: BP 124/58; PULSE 58; TEMP 36.7; O2SAT 100
[2024-01-24] MEDS: bisacodyL 5 MG TABLET.DR 10 MG PO (20:39)
[2024-01-24] MEDS: diphenhydrAMINE HCL 25 MG CAPSULE 50 MG PO (20:42)
[2024-01-24] MEDS: ROSUVASTATIN 5 MG 5 EACH PO (20:42)
[2024-01-24] MEDS: Mirtazapine 15 MG TABLET PO (20:43)
[2024-01-24] MEDS: Melatonin 3 MG TABLET 6 MG PO (20:48)
[2024-01-24] MEDS: traZODone HCL 50 MG TABLET PO (20:48)
[2024-01-25] VITALS (7 sets, daily range): BP systolic 112–142; BP diastolic 62–78; PULSE 58–65; RESP 14–18; TEMP 36.6–36.9; O2SAT 96–99
[2024-01-25] MEDS: Gabapentin 400 MG CAPSULE 800 MG PO ×3 (08:55→20:57)
[2024-01-25] MEDS: Cariprazine HCl 1.5 MG CAPSULE PO (08:55)
[2024-01-25] MEDS: Topiramate 100 MG TABLET PO (08:55)
[2024-01-25] MEDS: Cyanocobalamin (Vitamin B-12) 500 MCG TABLET PO (08:55)
[2024-01-25] MEDS: Midodrine HCl 10 MG TABLET PO ×3 (08:56→17:56)
[2024-01-25] MEDS: Docusate Sodium 100 MG CAPSULE PO (08:56)
[2024-01-25] MEDS: Cholecalciferol (Vitamin D3) 25 MCG TABLET PO (08:56)
[2024-01-25] MEDS: Nitrofurantoin Monohyd/M-Cryst 100 MG CAPSULE PO ×2 (08:56→20:57)
[2024-01-25] MEDS: Meclizine HCl 25 MG TABLET PO ×2 (08:56→14:37)
[2024-01-25] MEDS: Psyllium seed 3.7 GM PACKET PO (08:56)
[2024-01-25] MEDS: Ferrous Sulfate 324 MG TABLET.DR PO (08:56)
[2024-01-25] MEDS: Magnesium Hydrox/Alum Hydrox 30 ML ORAL.SUSP PO (09:02)
--- NOTE | 2024-01-25 11:12 | HO.ECTCONS_ITS ---
History of Present Illness Data of Consult Service Date: 01/25/24 Primary Care Provider: Hung Montelongo MD [facility] Reason for consult: ECT risk stratification Patient is a 53-year-old female with a PMH significant for as asthma, HLD, orthostatic hypotension, hx of nephrectomy, gastric bypass, hernia repair, migraines, GERD, anxiety, depression, and schizophrenia who was admitted to Psychiatric unit for increasing depression and SI. Hospitalist consult for ECT risk stratification. Patient initially presented to the ED here at [facility] with a 4-day history of multiple complaints, including weakness, dizziness, cough, chills, nausea, and diarrhea. Patient had a CTA of head and neck which was negative for stroke, but did show thinning of superior semicircular canals bilaterally, worse on right with suggestion of dehiscence. ED contacted ENT provider who said was likely transient and not responsible for patient's symptoms. Patient seen and evaluated on the unit where she continues to endorse multiple complaints, including continued lightheadedness and dizziness, nausea, lower abdominal pain, constipation, chest tightness, occasional shaking, blurriness of vision, chest tightness, constipation, and shortness a breath. Patient is overall a rather vague and imprecise historian and sometimes it is unclear as to the duration of symptoms. However patient states she has been experiencing lightheadedness and dizziness for many years, appears around baseline. Reports she has not been using her albuterol inhaler while on the unit, though previously was using usually once a a day/night. States he has not had a bowel movement in the past 5 days. No fever, chills. Denies chest pain/pressure, palpitations. Patient denies history of stroke, TBI, or intracranial mass. Denies history of smoking, COPD, or ILD. No past difficulties with anesthesia. No known bleeding disorders or issues with uncontrolled bleeding. Denies any significant cardiac history. Denies ever undergoing ECT in the past. EKG reviewed showing sinus bradycardia 46c with QT of 446 and no evidence of ST elevations or depressions. Current vitals stable and WNL. Review of Systems 2 Review of Systems: Negative except for that stated in the HPI [facility] Medical History Chronic kidney disease, stage III (moderate) Obesity (BMI 30-39.9) Renal cyst Diverticulosis Tubular adenoma Asthma Spondylosis of lumbar spine Sacroiliitis Dizziness of unknown etiology Chronic constipation Hx of schizophrenia Panic attacks PTSD (post-traumatic stress disorder) Dyspareunia Pyelonephritis Ingrown toenail Iron deficiency anemia Major depression, recurrent Anxiety Insomnia Tremor Orthostatic hypotension Incisional hernia without obstruction or gangrene Avascular necrosis of femoral head Bilateral carpal tunnel syndrome Peroneal neuropathy Lumbar degenerative disc disease Vitamin D deficiency GERD (gastroesophageal reflux disease) Migraine Hyperlipidemia Family History Father Liver cancer Mother Breast cancer Sister Lung cancer Other Mental health problem Surgical History History of left nephrectomy (~1999) History of colonoscopy History of surgery Hx of cystoscopy History of bilateral breast reduction surgery History of hysterectomy History of cholecystectomy History of endoscopy (~06/2016) History of bladder repair surgery (~03/2015) S/P cystoscopy (~07/30/12) S/P panniculectomy History of hernia repair (~03/29/10) History of bladder surgery (~10/2009) History of gastric bypass (~2008) History of incisional hernia repair (~1999) Hx of umbilical hernia repair (~1999) H/O left nephrectomy S/P laparoscopic sleeve gastrectomy Social History Household Members: Family Housing: House Do you presently have visiting nurse or other home services: No Alcohol intake: never Patient Tobacco Use Status: Never used Tobacco e-Cigarette/Vaping Use: Never Used Second Hand Smoke Exposure: No Advance Directives Date on File: 07/12/21 service: No Current occupational status: disabled Sexual orientation: Straight/Heterosexual Cognitive needs: No Hearing needs: No Vision needs: Yes Meds Allergies Allergy/AdvReac Type Severity Reaction Status Date / Time acetaminophen AdvReac Unknown Unknown Verified 01/22/24 09:01 atorvastatin AdvReac Severe elevated Uncoded 01/22/24 09:01 liver enzymes Active Medications: Current Medications Al Hydroxide/Mg Hydroxide (Magnesium Hydrox/Alum Hydrox 30 Ml Oral.Susp) 30 ml PO Q6H PRN PRN Reason: Heartburn/Nausea Last Admin: 01/25/24 09:02 Dose: 30 ml Albuterol Sulfate (Albuterol Sulfate 90 Mcg 8 Gm Inhaler) 2 puff INHALE Q6H PRN PRN Reason: Shortness of Breath/Wheezing Bisacodyl (Bisacodyl 5 Mg Tablet.Dr) 10 mg PO BEDTIME [facility] Last Admin: 01/24/24 20:39 Dose: 10 mg Cariprazine (Cariprazine Hcl 1.5 Mg Capsule) 1.5 mg PO DAILY [facility] Last Admin: 01/25/24 08:55 Dose: 1.5 mg Cyanocobalamin (Cyanocobalamin (Vitamin B-12) 500 Mcg Tablet) 500 mcg PO DAILY [facility] Last Admin: 01/25/24 08:55 Dose: 500 mcg Diphenhydramine HCl (Diphenhydramine Hcl 25 Mg Capsule) 50 mg PO BEDTIME [facility] Last Admin: 01/24/24 20:42 Dose: 50 mg Docusate Sodium (Docusate Sodium 100 Mg Capsule) 100 mg PO DAILY [facility] Last Admin: 01/25/24 08:56 Dose: 100 mg Ferrous Sulfate (Ferrous Sulfate 324 Mg Tablet.) 324 mg PO DAILY [facility] Last Admin: 01/25/24 08:56 Dose: 324 mg Gabapentin (Gabapentin 400 Mg Capsule) 800 mg PO TID [facility] Last Admin: 01/25/24 08:55 Dose: 800 mg Hydroxyzine HCl (Hydroxyzine Hcl 25 Mg Tablet) 25 mg PO Q6H PRN PRN Reason: Anxiety Last Admin: 01/24/24 15:25 Dose: 25 mg Magnesium Hydroxide (Milk Of Magnesia 30 Ml Oral.Susp) 30 ml PO DAILY PRN PRN Reason: Constipation Meclizine HCl (Meclizine Hcl 25 Mg Tablet) 25 mg PO TID PRN PRN Reason: dizziness Last Admin: 01/25/24 08:56 Dose: 25 mg Melatonin (Melatonin 3 Mg Tablet) 6 mg PO BEDTIME PRN PRN Reason: Insomnia Last Admin: 01/24/24 20:48 Dose: 6 mg Midodrine (Midodrine Hcl 10 Mg Tablet) 10 mg PO TID@0800,1300,1800 [facility] Last Admin: 01/25/24 08:56 Dose: 10 mg Mirtazapine (Mirtazapine 15 Mg Tablet) 15 mg PO BEDTIME [facility] Last Admin: 01/24/24 20:43 Dose: 15 mg Nicotine (Nicotine 21 Mg Patch.Td24) 21 mg TRANSDERMA DAILY PRN PRN Reason: smoking cessation Nicotine Polacrilex (Nicotine Polacrilex 2 Mg Gum) 4 mg BUCCAL Q2H PRN PRN Reason: Nicotine Cravings Nitrofurantoin Macrocrystals (Nitrofurantoin Monohyd/M-Cryst 100 Mg Capsule) 100 mg PO BID [facility] Last Admin: 01/25/24 08:56 Dose: 100 mg Pt Own (Rosuvastatin (5 Mg Tablet)) 5 mg PO BEDTIME [facility] Last Admin: 01/24/24 20:42 Dose: 5 mg Psyllium Hydrophilic Mucilloid (Psyllium Seed 3.7 Gm Packet) 3.7 gm PO DAILY [facility] Last Admin: 01/25/24 08:56 Dose: 3.7 gm Topiramate (Topiramate 100 Mg Tablet) 100 mg PO DAILY [facility] Last Admin: 01/25/24 08:55 Dose: 100 mg Trazodone HCl (Trazodone Hcl 50 Mg Tablet) 50 mg PO BEDTIME MRX1 PRN PRN Reason: Insomnia Last Admin: 01/24/24 20:48 Dose: 50 mg Vitamin D (Cholecalciferol (Vitamin D3) 25 Mcg Tablet) 25 mcg PO DAILY [facility] Last Admin: 01/25/24 08:56 Dose: 25 mcg Home Medications ?Medication ?Instructions ?Recorded ?Confirmed ?Last Taken ?Type lorazepam 1 mg tablet 1 mg PO BID PRN Anxiety 11/02/22 01/23/24 Unknown History potassium citrate 5 mEq (540 mg) 5 meq PO DAILY 06/13/23 01/23/24 01/21/24 History tablet,extended release melatonin 5 mg tablet 5 mg PO BEDTIME PRN Insomnia 07/14/23 01/23/24 Unknown History mirtazapine 15 mg tablet 15 mg PO BEDTIME 12/05/23 01/23/24 01/21/24 History naproxen 500 mg tablet 500 mg PO DAILY 12/05/23 01/23/24 01/21/24 History topiramate 100 mg tablet 100 mg PO DAILY 12/05/23 01/23/24 Unknown History nitrofurantoin 1 cap PO BID 01/22/24 01/23/24 01/21/24 History monohydrate/macrocrystals 100 mg 100 mg capsule albuterol sulfate 90 mcg/actuation 2 puff inhalation Q6H PRN wheezing 01/23/24 01/23/24 Unknown History aerosol inhaler (Ventolin HFA) diphenhydramine HCl 25 mg capsule 25 mg PO TID PRN allergies 01/23/24 01/23/24 Unknown History (Banophen) lurasidone 40 mg tablet 40 mg PO DAILY 01/23/24 01/23/24 01/21/24 History pantoprazole 40 mg tablet,delayed 40 mg PO DAILY@0630 01/23/24 01/23/24 01/21/24 History release sumatriptan succinate 50 mg tablet 50 mg PO BID PRN Migraine Headache 01/23/24 01/23/24 Unknown History Physical Exam 2 Vital Signs and Narrative: Vital Signs: Last Vital Signs Temp 97.8 F 01/25/24 08:00 Pulse 58 01/25/24 08:00 Resp 16 01/25/24 08:00 BP 112/62 01/25/24 08:56 Pulse Ox 98 01/25/24 08:00 O2 Del Method Room Air 01/24/24 20:00 BMI result Body Mass Index 27.8 General: AOx3, no acute distress Resp: CTA bilaterally CVS: S1, S2, RRR GI: +BS, no distention, suprapubic tenderness Skin: Warm, dry Neuro: Cranial nerves II-XII grossly intact bilaterally. Motor grossly intact bilaterally. Symmetric global weakness of upper and lower extremities noted Extremities: No edema Results Labs 01/22/24 09:14 01/22/24 09:14 Assessment and Plan (1) Preoperative examination: Status: Acute Plan Patient is a 53-year-old female with a PMH significant for as asthma, HLD, orthostatic hypotension, hx of nephrectomy, gastric bypass, hernia repair, migraines, GERD, anxiety, depression, and schizophrenia who was admitted to [facility] Psychiatric unit for increasing depression and SI. Hospitalist consult for ECT risk stratification. ECT risk stratification Based on stated PMH and exam, there are no apparent medical contraindications to the planned procedure Patient with negative stroke workup in the ED prior to admission EKG without ischemic changes or prolonged QTc No previous problems with anesthesia, multiple surgeries in the past RCRI class 1 risk with 0 point Orthostatic hypotension Pt with continued, lightheadedness and dizziness, ongoing for many years Continue midodrine CTA showing possible with thinning of semicircular canals bilaterally with question of dehiscence ED contacted ENT who said is likely transient No additional workup or treatment necessary at this time Can follow up outpatient with ENT Thyroid nodule CTA found 1.9 cm left thyroid nodule Outpatient follow-up with thyroid ultrasound Constipation Reports last bowel movement 5 days ago Will give lactulose 30 mg p.o. x1 dose Continue current bowel regimen Thank you for allowing us to participate in the care of this patient. Will sign off for now. Please re-consult if any acute issue or need arises.
[2024-01-25] MEDS: Ondansetron ODT 4 MG TAB.RAPDIS TRANSLINGU (13:00)
[2024-01-25] MEDS: Lactulose 20 GM/30 ML SOLUTION 30 GM PO (14:37)
--- NOTE | 2024-01-25 14:39 | P.PNPSI_ITS ---
Subjective Subjective Date of Service: 01/25/24 Reason For Visit: depression Subjective Notes: Conditional Voluntary Interim History: Pt slept most of the night. She complaints of severe abdominal pain on right side. she has also been constipated. discuss with hospitalist order CT of abdomen/pelvis r/o acute pathology. Diagnostics Vital Signs (24Hr): Vital Signs - 24 hr 01/24/24 17:26 01/24/24 20:00 01/25/24 00:02 Temperature 98.1 F Pulse Rate 58 Respiratory Rate 14 Blood Pressure 141/73 H 124/58 L Pulse Oximetry 100 Oxygen Delivery Method Room Air 01/25/24 08:00 01/25/24 08:56 01/25/24 13:00 Temperature 97.8 F Pulse Rate 58 Respiratory Rate 16 Blood Pressure 112/62 112/62 118/74 Pulse Oximetry 98 Oxygen Delivery Method BMI result Body Mass Index 27.8 Labs 01/22/24 09:14 01/22/24 09:14 Labs: Laboratory Results - last 48 hr 01/24/24 08:14 Estimat Average Glucose 103 Hemoglobin A1c % 5.2 Triglycerides 85 Cholesterol 208 H LDL Cholesterol, Calc 129 H HDL Cholesterol 62 TSH 0.82 Hold Yellow Top See Note Imaging Radiology Impressions: ITS Impressions Head/Neck CTA 01/22/24 12:43 IMPRESSION: -No acute intracranial hemorrhage or edematous infarct. -No hemodynamically significant stenosis in the major arteries of the neck or intracranial circulation. -Incidentally noted thinning of the superior semicircular canals bilaterally, worse on the right with suggestion of dehiscence. If there is concern for semicircular canal dehiscence, recommend further characterization with dedicated CT of the temporal bones. -A 1.9 cm hypoattenuating nodule in the left thyroid lobe. Based on the recommendations of the ACR Incidental Thyroid Findings Committee (JACR 2015 Jun; 12(2):143-50), further evaluation by thyroid ultrasound is recommended for solitary incidental thyroid nodules greater than or equal to 1.5 cm in largest axial dimension in patients age 35 years and older who do not have limited life expectancy or significant morbidities, unless clinically warranted. Electronically signed by: Luis Armando Smith MD 01/22/2024 02:45 PM EDT Medications Medications Current Medications Al Hydroxide/Mg Hydroxide (Magnesium Hydrox/Alum Hydrox 30 Ml Oral.Susp) 30 ml PO Q6H PRN PRN Reason: Heartburn/Nausea Last Admin: 01/25/24 09:02 Dose: 30 ml Albuterol Sulfate (Albuterol Sulfate 90 Mcg 8 Gm Inhaler) 2 puff INHALE Q6H PRN PRN Reason: Shortness of Breath/Wheezing Albuterol Sulfate (Albuterol Sulfate 90 Mcg 8 Gm Inhaler) 2 puff INHALE RQ6H PRN PRN Reason: wheeze Bisacodyl (Bisacodyl 5 Mg Tablet.Dr) 10 mg PO BEDTIME [facility] Last Admin: 01/24/24 20:39 Dose: 10 mg Cariprazine (Cariprazine Hcl 1.5 Mg Capsule) 1.5 mg PO DAILY [facility] Last Admin: 01/25/24 08:55 Dose: 1.5 mg Cyanocobalamin (Cyanocobalamin (Vitamin B-12) 500 Mcg Tablet) 500 mcg PO DAILY [facility] Last Admin: 01/25/24 08:55 Dose: 500 mcg Diphenhydramine HCl (Diphenhydramine Hcl 25 Mg Capsule) 50 mg PO BEDTIME [facility] Last Admin: 01/24/24 20:42 Dose: 50 mg Docusate Sodium (Docusate Sodium 100 Mg Capsule) 100 mg PO DAILY [facility] Last Admin: 01/25/24 08:56 Dose: 100 mg Ferrous Sulfate (Ferrous Sulfate 324 Mg Tablet.Dr) 324 mg PO DAILY [facility] Last Admin: 01/25/24 08:56 Dose: 324 mg Gabapentin (Gabapentin 400 Mg Capsule) 800 mg PO TID [facility] Last Admin: 01/25/24 08:55 Dose: 800 mg Hydroxyzine HCl (Hydroxyzine Hcl 25 Mg Tablet) 25 mg PO Q6H PRN PRN Reason: Anxiety Last Admin: 01/24/24 15:25 Dose: 25 mg Magnesium Hydroxide (Milk Of Magnesia 30 Ml Oral.Susp) 30 ml PO DAILY PRN PRN Reason: Constipation Meclizine HCl (Meclizine Hcl 25 Mg Tablet) 25 mg PO TID PRN PRN Reason: dizziness Last Admin: 01/25/24 08:56 Dose: 25 mg Melatonin (Melatonin 3 Mg Tablet) 6 mg PO BEDTIME PRN PRN Reason: Insomnia Last Admin: 01/24/24 20:48 Dose: 6 mg Midodrine (Midodrine Hcl 10 Mg Tablet) 10 mg PO TID@0800,1300,1800 [facility] Last Admin: 01/25/24 13:00 Dose: 10 mg Mirtazapine (Mirtazapine 15 Mg Tablet) 15 mg PO BEDTIME [facility] Last Admin: 01/24/24 20:43 Dose: 15 mg Nicotine (Nicotine 21 Mg Patch.Td24) 21 mg TRANSDERMA DAILY PRN PRN Reason: smoking cessation Nicotine Polacrilex (Nicotine Polacrilex 2 Mg Gum) 4 mg BUCCAL Q2H PRN PRN Reason: Nicotine Cravings Nitrofurantoin Macrocrystals (Nitrofurantoin Monohyd/M-Cryst 100 Mg Capsule) 100 mg PO BID [facility] Last Admin: 01/25/24 08:56 Dose: 100 mg Pt Own (Rosuvastatin (5 Mg Tablet)) 5 mg PO BEDTIME [facility] Last Admin: 01/24/24 20:42 Dose: 5 mg Ondansetron HCl (Ondansetron Odt 4 Mg Tab.Rapdis) 4 mg TRANSLINGU Q8H PRN PRN Reason: Nausea and Vomiting Last Admin: 01/25/24 13:00 Dose: 4 mg Psyllium Hydrophilic Mucilloid (Psyllium Seed 3.7 Gm Packet) 3.7 gm PO DAILY [facility] Last Admin: 01/25/24 08:56 Dose: 3.7 gm Topiramate (Topiramate 100 Mg Tablet) 100 mg PO DAILY [facility] Last Admin: 01/25/24 08:55 Dose: 100 mg Trazodone HCl (Trazodone Hcl 50 Mg Tablet) 50 mg PO BEDTIME MRX1 PRN PRN Reason: Insomnia Last Admin: 01/24/24 20:48 Dose: 50 mg Vitamin D (Cholecalciferol (Vitamin D3) 25 Mcg Tablet) 25 mcg PO DAILY [facility] Last Admin: 01/25/24 08:56 Dose: 25 mcg Allergies Allergies Allergy/AdvReac Type Severity Reaction Status Date / Time acetaminophen AdvReac Unknown Unknown Verified 01/22/24 09:01 atorvastatin AdvReac Severe elevated Uncoded 01/22/24 09:01 liver enzymes Assessment & Plan Assessment & Plan (1) MDD (major depressive disorder), recurrent, severe, with psychosis: Status: Acute Code(s): F33.3 - Major depressive disorder, recurrent, severe with psychotic symptoms Plan Patient is a 53-year-old female with a PMH significant for as asthma, HLD, orthostatic hypotension, hx of nephrectomy, gastric bypass, hernia repair, migraines, GERD, anxiety, depression, and schizophrenia who was admitted to [facility] for increasing depression and SI. Hospitalist consult for ECT risk stratification. ECT risk stratification Based on stated PMH and exam, there are no apparent medical contraindications to the planned procedure Patient with negative stroke workup in the ED prior to admission EKG without ischemic changes or prolonged QTc No previous problems with anesthesia, multiple surgeries in the past RCRI class 1 risk with 0 point Orthostatic hypotension Pt with continued, lightheadedness and dizziness, ongoing for many years Continue midodrine CTA showing possible with thinning of semicircular canals bilaterally with question of dehiscence ED contacted ENT who said is likely transient No additional workup or treatment necessary at this time Can follow up outpatient with ENT Thyroid nodule CTA found 1.9 cm left thyroid nodule Outpatient follow-up with thyroid ultrasound Constipation Reports last bowel movement 5 days ago Will give lactulose 30 mg p.o. x1 dose Continue current bowel regimen PSYCH 01/25 acute abdominal pain on right side, discussed with hospitalist. ordered CT abdomen/pelvic Reason for continued inpatient stay Substantial Risk for: inability to function Time Spent With Patient Time: Total time managing care of this patient today ____ minutes.
[2024-01-25] MEDS: Mineral OiL enema 133 ML ENEMA PR (18:48)
--- NOTE | 2024-01-25 19:17 | PC.NURSE ---
late entry for 1700. Xenia was in visibly crying and in pain on the toilet trying to stool. She was given a warm pack in a pillowcase for comfort with instructions to use over her pajama top. Efren Singh [employer] informed and orders placed. Naina Pollard [employer] on unit inquiring about the pain level she is having. Xenia returned to bed, no BM yet. Her abdomen is flat and soft, bowel sounds are wnl x 4quads, she has tenderness right lower quad. Reported to Naina Pollard NP, orders given. Sent for Abd CT as ordered.
[2024-01-25] MEDS: diphenhydrAMINE HCL 25 MG CAPSULE 50 MG PO (20:56)
[2024-01-25] MEDS: Mirtazapine 15 MG TABLET PO (20:56)
[2024-01-25] MEDS: bisacodyL 5 MG TABLET.DR 10 MG PO (20:57)
[2024-01-25] MEDS: traZODone HCL 50 MG TABLET PO (20:58)
[2024-01-25] MEDS: Melatonin 3 MG TABLET 6 MG PO (21:00)
[2024-01-26 08:00] VITALS: BP 126/60; PULSE 66; RESP 18; TEMP 36.8; O2SAT 99
[2024-01-26] MEDS: Psyllium seed 3.7 GM PACKET PO (09:16)
[2024-01-26] MEDS: Docusate Sodium 100 MG CAPSULE PO (09:17)
[2024-01-26] MEDS: Cholecalciferol (Vitamin D3) 25 MCG TABLET PO (09:17)
[2024-01-26] MEDS: Cariprazine HCl 1.5 MG CAPSULE PO ×2 (09:17→11:49)
[2024-01-26] MEDS: Gabapentin 400 MG CAPSULE 800 MG PO ×3 (09:17→20:32)
[2024-01-26] MEDS: Midodrine HCl 10 MG TABLET PO ×2 (09:17→16:06)
[2024-01-26] MEDS: Cyanocobalamin (Vitamin B-12) 500 MCG TABLET PO (09:17)
[2024-01-26] MEDS: Nitrofurantoin Monohyd/M-Cryst 100 MG CAPSULE PO ×2 (09:17→20:33)
[2024-01-26] MEDS: Ferrous Sulfate 324 MG TABLET.DR PO (09:18)
[2024-01-26] MEDS: Topiramate 100 MG TABLET PO (09:18)
[2024-01-26] MEDS: Meclizine HCl 25 MG TABLET PO (09:59)
[2024-01-26] MEDS: hydrOXYzine HCL 25 MG TABLET PO ×2 (09:59→20:51)
--- NOTE | 2024-01-26 10:13 | HO.PSYCHPN ---
Subjective Subjective Date of Service: 01/26/24 Reason For Visit: depression Interim History: With customs entry writer Met with patient; discussed with team Patient reports that auditory hallucinations are less however depression remains. Discussed at length ECT and gave her literature and [place]ian to review. Patient agrees with proceeding with ECT as well as increasing Vraylar. Mental Status Exam Mental Status Exam Narrative: Pt is alert and oriented; behavior is cooperative, downcast; patient is not in distress; dressed in casual attire with adequate grooming; mood is described as Depressed and affect congruent, downcast; eye contact limited but a little more improved; Speech remained soft volume, slowed rate normal rate; normal prosody; psychomotor retardation present; thought process is organized and goal directed; Thought content is on misery of symptoms, tx; otherwise pertinent to relevant topics and without any delusional content, paranoid ideations or grandiosity; currently no SI; no HI; she reports continued AH, however little less Patients insight and judgment impaired Diagnostics Vital Signs (24Hr): Vital Signs - 24 hr 01/25/24 13:00 01/25/24 17:56 01/25/24 20:30 Temperature 98.4 F Pulse Rate 65 Respiratory Rate 18 Blood Pressure 118/74 112/67 142/78 H Pulse Oximetry 99 Oxygen Delivery Method Room Air 01/25/24 23:30 01/26/24 08:00 Temperature 98.2 F Pulse Rate 66 Respiratory Rate 17 18 Blood Pressure 126/60 Pulse Oximetry 99 Oxygen Delivery Method Room Air BMI result Body Mass Index 27.8 Labs 01/26/24 10:40 01/26/24 10:41 Imaging Radiology Impressions: ITS Impressions Head/Neck CTA 01/22/24 12:43 IMPRESSION: -No acute intracranial hemorrhage or edematous infarct. -No hemodynamically significant stenosis in the major arteries of the neck or intracranial circulation. -Incidentally noted thinning of the superior semicircular canals bilaterally, worse on the right with suggestion of dehiscence. If there is concern for semicircular canal dehiscence, recommend further characterization with dedicated CT of the temporal bones. -A 1.9 cm hypoattenuating nodule in the left thyroid lobe. Based on the recommendations of the ACR Incidental Thyroid Findings Committee (JACR 2014; 12(2):143-50), further evaluation by thyroid ultrasound is recommended for solitary incidental thyroid nodules greater than or equal to 1.5 cm in largest axial dimension in patients age 35 years and older who do not have limited life expectancy or significant morbidities, unless clinically warranted. Electronically signed by: Luis Armando Smith MD 01/22/2024 02:45 PM EDT RP Abdomen/Pelvis CT 01/25/24 18:13 IMPRESSION: Fluid throughout distal small bowel as well as the ascending and transverse colon, suggesting an element of hypersecretion. Small to moderate amount of stool within the descending and sigmoid colon. Postsurgical changes as above. Additional findings as above. Electronically signed by: Shravan Slaughter MD 01/26/2024 07:38 AM EDT RP Medications Medications Current Medications Al Hydroxide/Mg Hydroxide (Magnesium Hydrox/Alum Hydrox 30 Ml Oral.Susp) 30 ml PO Q6H PRN PRN Reason: Heartburn/Nausea Last Admin: 01/25/24 09:02 Dose: 30 ml Albuterol Sulfate (Albuterol Sulfate 90 Mcg 8 Gm Inhaler) 2 puff INHALE Q6H PRN PRN Reason: Shortness of Breath/Wheezing Albuterol Sulfate (Albuterol Sulfate 90 Mcg 8 Gm Inhaler) 2 puff INHALE RQ6H PRN PRN Reason: wheeze Bisacodyl (Bisacodyl 5 Mg Tablet.) 10 mg PO BEDTIME [facility] Last Admin: 01/25/24 20:57 Dose: 10 mg Cariprazine (Cariprazine Hcl 1.5 Mg Capsule) 1.5 mg PO DAILY [facility] Last Admin: 01/26/24 09:17 Dose: 1.5 mg Cyanocobalamin (Cyanocobalamin (Vitamin B-12) 500 Mcg Tablet) 500 mcg PO DAILY [facility] Last Admin: 01/26/24 09:17 Dose: 500 mcg Diphenhydramine HCl (Diphenhydramine Hcl 25 Mg Capsule) 50 mg PO BEDTIME [facility] Last Admin: 01/25/24 20:56 Dose: 50 mg Docusate Sodium (Docusate Sodium 100 Mg Capsule) 100 mg PO DAILY [facility] Last Admin: 01/26/24 09:17 Dose: 100 mg Ferrous Sulfate (Ferrous Sulfate 324 Mg Tablet.) 324 mg PO DAILY [facility] Last Admin: 01/26/24 09:18 Dose: 324 mg Gabapentin (Gabapentin 400 Mg Capsule) 800 mg PO TID [facility] Last Admin: 01/26/24 09:17 Dose: 800 mg Hydroxyzine HCl (Hydroxyzine Hcl 25 Mg Tablet) 25 mg PO Q6H PRN PRN Reason: Anxiety Last Admin: 01/26/24 09:59 Dose: 25 mg Magnesium Hydroxide (Milk Of Magnesia 30 Ml Oral.Susp) 30 ml PO DAILY PRN PRN Reason: Constipation Meclizine HCl (Meclizine Hcl 25 Mg Tablet) 25 mg PO TID PRN PRN Reason: dizziness Last Admin: 01/26/24 09:59 Dose: 25 mg Melatonin (Melatonin 3 Mg Tablet) 6 mg PO BEDTIME PRN PRN Reason: Insomnia Last Admin: 01/25/24 21:00 Dose: 6 mg Midodrine (Midodrine Hcl 10 Mg Tablet) 10 mg PO TID@0800,1300,1800 [facility] Last Admin: 01/26/24 09:17 Dose: 10 mg Mirtazapine (Mirtazapine 15 Mg Tablet) 15 mg PO BEDTIME [facility] Last Admin: 01/25/24 20:56 Dose: 15 mg Nicotine (Nicotine 21 Mg Patch.Td24) 21 mg TRANSDERMA DAILY PRN PRN Reason: smoking cessation Nicotine Polacrilex (Nicotine Polacrilex 2 Mg Gum) 4 mg BUCCAL Q2H PRN PRN Reason: Nicotine Cravings Nitrofurantoin Macrocrystals (Nitrofurantoin Monohyd/M-Cryst 100 Mg Capsule) 100 mg PO BID [facility] Last Admin: 01/26/24 09:17 Dose: 100 mg Pt Own (Rosuvastatin (5 Mg Tablet)) 5 mg PO BEDTIME [facility] Last Admin: 01/26/24 01:23 Dose: Not Given Ondansetron HCl (Ondansetron Odt 4 Mg Tab.Rapdis) 4 mg TRANSLINGU Q8H PRN PRN Reason: Nausea and Vomiting Last Admin: 01/25/24 13:00 Dose: 4 mg Psyllium Hydrophilic Mucilloid (Psyllium Seed 3.7 Gm Packet) 3.7 gm PO DAILY [facility] Last Admin: 01/26/24 09:16 Dose: 3.7 gm Topiramate (Topiramate 100 Mg Tablet) 100 mg PO DAILY [facility] Last Admin: 01/26/24 09:18 Dose: 100 mg Trazodone HCl (Trazodone Hcl 50 Mg Tablet) 50 mg PO BEDTIME MRX1 PRN PRN Reason: Insomnia Last Admin: 01/25/24 20:58 Dose: 50 mg Vitamin D (Cholecalciferol (Vitamin D3) 25 Mcg Tablet) 25 mcg PO DAILY [facility] Last Admin: 01/26/24 09:17 Dose: 25 mcg Allergies Allergies Allergy/AdvReac Type Severity Reaction Status Date / Time acetaminophen AdvReac Unknown Unknown Verified 01/22/24 09:01 atorvastatin AdvReac Severe elevated Uncoded 01/22/24 09:01 liver enzymes Assessment & Plan Assessment & Plan (1) MDD (major depressive disorder), recurrent, severe, with psychosis: Status: Acute Code(s): F33.3 - Major depressive disorder, recurrent, severe with psychotic symptoms (2) PTSD (post-traumatic stress disorder): Status: Acute Code(s): F43.10 - Post-traumatic stress disorder, unspecified Plan Patient is a 53-year-old female with history of MDD with psychotic features (r/o schizoaffective disorder, depressed type) PTSD, borderline traits, kidney cancer (one kidney) who presents for worsening depression and AH. Patient reports that she was feeling overall good enough until about 4 months ago. Without any obvious trigger, and despite continued adherence to medication regimen, she reports that her mood started to decline and AH (which is present independent of mood) became worse. Patient said she started having bad thoughts.. At which she became tearful and would not disclose them. She said her mood got worse and worse and voices told her to hurt herself; she started seeing shadow figures and having horrific nightmares where sometimes she can tell if she was awake or asleep but saw a ball of fire and things burning. AH worsened this past week and so patient self presented. She denies any history of manic type behaviors; ongoing PTSD symptoms. Patient does not remember history of med trials Formulaton/clinical reasoning: Ingot Weigher discussed case with patient's outpatient psychiatric provider Dr. Kathleen who has known patient for years. She reports that Patient has long history of depression, frequently severe, intermixed with PTSD symptoms, emotional reactivity; although patient endorses continue AH, Dr. Kathleen does not think necessarily an organic psychotic illness and only symptom is AH (no history of delusional thinking, no disorganized speech or behavior). Pt has had numerous medication trials with only partial response. Discussed treatment approaches and provider agrees that ECT trial is warranted; no benefit from Latuda thus far and although was only at 20 mg, agree to start Vraylar instead which maybe a little more robust in dealing with AH. Patient amenable to changing medications. [place]? only one kidney so hesitant. Also considerations are OCD/JAMIE Hospital course: 01/24 acute abdominal pain on right side, discussed with hospitalist. ordered CT abdomen/pelvic 01/25 patient had bowel movement however still some right-sided abdominal pain; entry writer ordered labs and discussed with hospitalist PA who said they would follow-up -elevated LFTs/GGT -agrees with increasing Vraylar and undergoing ECT; consent signed PLAN: CV q15 min DC Latuda Increase Vraylar to 3 mg daily Proceed with ECT Topimax 100mg qhs; only used to prevent weight gain; will likely hold prior to ECT Numerous Med trials: Haldol: got tremor abilify: wt gain Medical problems: Orthostatic hypotension Pt with continued, lightheadedness and dizziness, ongoing for many years Continue midodrine CTA showing possible with thinning of semicircular canals bilaterally with question of dehiscence ED contacted ENT who said is likely transient No additional workup or treatment necessary at this time Can follow up outpatient with ENT Thyroid nodule CTA found 1.9 cm left thyroid nodule Outpatient follow-up with thyroid ultrasound Constipation Reports last bowel movement 5 days ago Will give lactulose 30 mg p.o. x1 dose Continue current bowel regimen Patient educated on: diagnosis, medication risk/benefits, ECT and medical condition Informed Consent: understands Reason for continued inpatient stay Substantial Risk for: inability to function Time Spent With Patient Time: Total time managing care of this patient today ____ minutes.
[2024-01-26 10:48] LABS: MANUAL DIFF FLAG NO
[2024-01-26] MEDS: Dicyclomine HCl 10 MG CAPSULE PO (10:52)
[2024-01-26 10:54] LABS: Basophils Percent Auto 0.8 % (0-2); Eosinophils Absolute Auto 0.1 X10*3/uL (0.0-0.4); Eosinophils Percent Auto 1.6 % (0-4); Hematocrit 41.3 % (37.0-47.0); Hemoglobin 13.5 g/dl (12.0-16.0); Imm Gran Abs Auto 0.01 X10*3/uL (0.00-0.03); Imm Gran Pct Auto 0.2 % (0.0-0.4); Lymphocytes Absolute Auto 1.2 X10*3/uL (1.2-4.9); Lymphocytes Percent Auto 24.5 % (20-40); Mean Corpuscular HGB Conc 32.7 g/dl (31.0-35.0); Mean Corpuscular Hemoglobin 33.9 pg (27.0-33.0); Mean Corpuscular Volume 103.8 fL (80.0-98.0); Mean Platelet Volume 9.5 fL (9.4-12.3); Monocytes Absolute Auto 0.4 X10*3/uL (0.1-1.2); Monocytes Percent Auto 8.2 % (2-11); Neutrophils Absolute Auto 3.3 x10*3/uL (2.0-8.3); Neutrophils Percent Auto 64.7 % (45-73); Platelet Count 246 X10*3/uL (160-400); Red Blood Count 3.98 X10*6/uL (4.20-5.50)
[2024-01-26 10:58] LABS: Ammonia 29 umol/L (13-55)
[2024-01-26 11:16] LABS: Alanine Aminotransferase 82 U/L (0-31); Albumin Level 3.9 g/dL (3.5-5.0); Alkaline Phosphatase 159 U/L (39-117); Anion Gap 11 (12-20); Aspartate Amino Transferase 72 U/L (5-31); Bilirubin Total 0.4 mg/dL (0.0-1.0); Blood Urea Nitrogen 13 mg/dL (9-16); Calcium 9.4 mg/dL (8.4-10.2); Carbon Dioxide 22 mmol/L (22-29); Chloride 115 mmol/L (96-108); Estimated Glomerular Filt Rate 48; Gamma Glutamyl Transpeptidase 131 U/L (7-33); Glucose Random 90 mg/dL (60-115); Lipase 49 U/L (8-78); Potassium 4.3 mmol/L (3.3-5.1); Sodium 144 mmol/L (135-145); Total Protein 6.8 g/dL (6.5-8.0)
[2024-01-26 11:47] LABS: Erythrocyte Sedimentation Rate 14 MM/HR (0-20)
[2024-01-26 16:06] VITALS: BP 119/66
--- NOTE | 2024-01-26 19:53 | PM.EVENT ---
Event Note Date of Service: 01/26/24 Event Note: The patient is a 53-year-old female with a PMH significant for asthma, HLD, orthostatic hypotension, IBS, GERD, migraines, hx of nephrectomy, hx of gastric bypass, hx hernia repair, anxiety, depression, and schizophrenia who was admitted to [facility] for increasing depression and SI. Follow-up for abdominal pain and constipation. CT of abdomen and pelvis from last evening found small to moderate amount of stool within the descending and sigmoid colon. Liver appeared unremarkable in shape, size, and attenuation without focal hepatic lesion or biliary ductal dilation. Patient is s/p cholecystectomy. CMP remarkable for transaminitis with GGT 131, AST 72, ALT 82, and alk-phos 159. Bilirubin WNL at 0.4. Does not appear to be an obstructing pattern. Transaminitis similar to previous labs, especially alk-phos which is chronically elevated. She follows with GI closely outpatient and has already seen them 4 times this year. According to last GI note on 12/04 she is supposed to be on Linzess 125 mcg daily for IBS constipation type, however this is not part of her med reconciliation and, unfortunately, we do not carry this on formulary. Pt did have large bowel movement yesterday, though reports none today. Continues to report RLQ pain she rates an 8/10, though improved from yesterday. Given relatively benign CT of abdomen/pelvis and the fact she had a large bowel movement yesterday, do not feel that there is any additional workup indicated at this time. Patient should continue to be treated symptomatically with analgesics and continue bowel regimen. For IBS, patient should carefully chews her diet to include more fiber, especially that found and beans, fruit, and O2 products, as well as vegetables and whole grain products. If patient's symptoms persist worsen, would recommend considering GI consult. Thank you for allowing us to participate in the care of this patient. Will sign off for now. Please re-consult if any acute issue or need arises. Time Spent With Patient Time: Total time managing care of this patient today ____ minutes.
[2024-01-26 20:00] VITALS: BP 125/68; PULSE 53; RESP 15; TEMP 36.5; O2SAT 98
[2024-01-26] MEDS: diphenhydrAMINE HCL 25 MG CAPSULE 50 MG PO (20:32)
[2024-01-26] MEDS: Mirtazapine 15 MG TABLET PO (20:33)
[2024-01-26] MEDS: bisacodyL 5 MG TABLET.DR 10 MG PO (20:33)
[2024-01-26] MEDS: traZODone HCL 50 MG TABLET PO (20:51)
[2024-01-26] MEDS: ROSUVASTATIN 5 MG 5 EACH PO (20:52)
[2024-01-26] MEDS: Melatonin 3 MG TABLET 9 MG PO (21:48)
[2024-01-26 23:48] VITALS: PULSE 77; RESP 18; O2SAT 96
[2024-01-27] MEDS: traZODone HCL 50 MG TABLET PO ×2 (01:47→21:40)
[2024-01-27 08:00] VITALS: BP 114/68; PULSE 57; RESP 16; TEMP 36.4; O2SAT 99
[2024-01-27] MEDS: Docusate Sodium 100 MG CAPSULE PO (09:52)
[2024-01-27] MEDS: Cholecalciferol (Vitamin D3) 25 MCG TABLET PO (09:52)
[2024-01-27 09:53] VITALS: BP 114/68
[2024-01-27] MEDS: Cariprazine HCl 3 MG CAPSULE PO (09:53)
[2024-01-27] MEDS: Gabapentin 400 MG CAPSULE 800 MG PO ×3 (09:53→21:16)
[2024-01-27] MEDS: Cyanocobalamin (Vitamin B-12) 500 MCG TABLET PO (09:53)
[2024-01-27] MEDS: Midodrine HCl 10 MG TABLET PO ×3 (09:53→18:08)
[2024-01-27] MEDS: hydrOXYzine HCL 25 MG TABLET PO ×2 (09:53→16:19)
[2024-01-27] MEDS: Topiramate 100 MG TABLET PO (09:53)
[2024-01-27] MEDS: Psyllium seed 3.7 GM PACKET PO (09:57)
[2024-01-27] MEDS: Nitrofurantoin Monohyd/M-Cryst 100 MG CAPSULE PO ×2 (09:57→21:16)
[2024-01-27] MEDS: Ferrous Sulfate 324 MG TABLET.DR PO (09:58)
[2024-01-27 13:28] VITALS: BP 118/66
[2024-01-27] MEDS: Ibuprofen 400 MG TABLET PO (13:34)
--- NOTE | 2024-01-27 15:26 | HO.PSYCHPN ---
Subjective Subjective Date of Service: 01/27/24 Reason For Visit: depression Interim History: With paraprofessional interpreter Met with patient; discussed with team Patient reports that auditory hallucinations are less however depression remains. She was reading information about ECT in [place] and feels she is well informed. Patient agrees with proceeding with ECT as well as increasing Vraylar. Review of Systems Review of Systems Negative except for that stated in the HPI Yes all other systems are reviewed and are negative Mental Status Exam Mental Status Exam Narrative: Pt is alert and oriented; behavior is cooperative, downcast; patient is not in distress; dressed in casual attire with adequate grooming; mood is described as Depressed and affect congruent, downcast; eye contact limited but a little more improved; Speech remained soft volume, slowed rate normal rate; normal prosody; psychomotor retardation present; thought process is organized and goal directed; Thought content is on misery of symptoms, tx; otherwise pertinent to relevant topics and without any delusional content, paranoid ideations or grandiosity; currently no SI; no HI; she reports continued AH, however little less Patients insight and judgment impaired Diagnostics Vital Signs (24Hr): Vital Signs - 24 hr 01/26/24 16:06 01/26/24 20:00 01/26/24 23:48 Temperature 97.7 F Pulse Rate 53 Respiratory Rate 15 18 Blood Pressure 119/66 125/68 Pulse Oximetry 98 Oxygen Delivery Method 01/27/24 08:00 01/27/24 09:53 01/27/24 13:28 Temperature 97.5 F Pulse Rate 57 Respiratory Rate 16 Blood Pressure 114/68 114/68 118/66 Pulse Oximetry 99 Oxygen Delivery Method Room Air BMI result Body Mass Index 27.8 Labs 01/26/24 10:40 01/26/24 10:41 Labs: Laboratory Results - last 48 hr 01/26/24 01/26/24 10:40 10:41 WBC 5.0 RBC 3.98 L Hgb 13.5 Hct 41.3 MCV 103.8 H MCH 33.9 H MCHC 32.7 RDW 12.0 Plt Count 246 MPV 9.5 Immature Gran % (Auto) 0.2 Neut % (Auto) 64.7 Lymph % (Auto) 24.5 [place] % (Auto) 8.2 Eos % (Auto) 1.6 Baso % (Auto) 0.8 Lymph # (Auto) 1.2 [place] # (Auto) 0.4 Eos # (Auto) 0.1 Baso # (Auto) 0.0 Abs Immat Gran (auto) 0.01 Absolute Neuts (auto) 3.3 Absolute Nucleated RBC 0.000 Nucleated RBC % (auto) 0.0 ESR 14 Sodium 144 Potassium 4.3 D Chloride 115 H Carbon Dioxide 22 Anion Gap 11 L BUN 13 Creatinine 1.17 Estim Creat Clear Calc 52.0 Estimated GFR 48 Random Glucose 90 Calcium 9.4 Total Bilirubin 0.4 GGT 131 H AST 72 H ALT 82 H Alkaline Phosphatase 159 H Ammonia 29 Total Protein 6.8 Albumin 3.9 Lipase 49 Imaging Radiology Impressions: ITS Impressions Head/Neck CTA 01/22/24 12:43 IMPRESSION: -No acute intracranial hemorrhage or edematous infarct. -No hemodynamically significant stenosis in the major arteries of the neck or intracranial circulation. -Incidentally noted thinning of the superior semicircular canals bilaterally, worse on the right with suggestion of dehiscence. If there is concern for semicircular canal dehiscence, recommend further characterization with dedicated CT of the temporal bones. -A 1.9 cm hypoattenuating nodule in the left thyroid lobe. Based on the recommendations of the ACR Incidental Thyroid Findings Committee (JACR 2015 Jun; 12(2):143-50), further evaluation by thyroid ultrasound is recommended for solitary incidental thyroid nodules greater than or equal to 1.5 cm in largest axial dimension in patients age 35 years and older who do not have limited life expectancy or significant morbidities, unless clinically warranted. Electronically signed by: Luis Armando Smith MD 01/22/2024 02:45 PM EDT Abdomen/Pelvis CT 01/25/24 18:13 IMPRESSION: Fluid throughout distal small bowel as well as the ascending and transverse colon, suggesting an element of hypersecretion. Small to moderate amount of stool within the descending and sigmoid colon. Postsurgical changes as above. Additional findings as above. Electronically signed by: Shravan Slaughter MD 01/26/2024 07:38 AM EDT RP Medications Medications Current Medications Al Hydroxide/Mg Hydroxide (Magnesium Hydrox/Alum Hydrox 30 Ml Oral.Susp) 30 ml PO Q6H PRN PRN Reason: Heartburn/Nausea Last Admin: 01/25/24 09:02 Dose: 30 ml Albuterol Sulfate (Albuterol Sulfate 90 Mcg 8 Gm Inhaler) 2 puff INHALE Q6H PRN PRN Reason: Shortness of Breath/Wheezing Albuterol Sulfate (Albuterol Sulfate 90 Mcg 8 Gm Inhaler) 2 puff INHALE RQ6H PRN PRN Reason: wheeze Bisacodyl (Bisacodyl 5 Mg Tablet.) 10 mg PO BEDTIME [facility] Last Admin: 01/26/24 20:33 Dose: 10 mg Cariprazine (Cariprazine Hcl 3 Mg Capsule) 3 mg PO DAILY [facility] Last Admin: 01/27/24 09:53 Dose: 3 mg Cyanocobalamin (Cyanocobalamin (Vitamin B-12) 500 Mcg Tablet) 500 mcg PO DAILY [facility] Last Admin: 01/27/24 09:53 Dose: 500 mcg Diphenhydramine HCl (Diphenhydramine Hcl 25 Mg Capsule) 50 mg PO BEDTIME [facility] Last Admin: 01/26/24 20:32 Dose: 50 mg Docusate Sodium (Docusate Sodium 100 Mg Capsule) 100 mg PO DAILY [facility] Last Admin: 01/27/24 09:52 Dose: 100 mg Ferrous Sulfate (Ferrous Sulfate 324 Mg Tablet.) 324 mg PO DAILY [facility] Last Admin: 01/27/24 09:58 Dose: 324 mg Gabapentin (Gabapentin 400 Mg Capsule) 800 mg PO TID [facility] Last Admin: 01/27/24 14:17 Dose: 800 mg Hydroxyzine HCl (Hydroxyzine Hcl 25 Mg Tablet) 25 mg PO Q6H PRN PRN Reason: Anxiety Last Admin: 01/27/24 09:53 Dose: 25 mg Ibuprofen (Ibuprofen 400 Mg Tablet) 400 mg PO Q6H PRN PRN Reason: Pain, Moderate(Pain Scale 4-6) Last Admin: 01/27/24 13:34 Dose: 400 mg Magnesium Hydroxide (Milk Of Magnesia 30 Ml Oral.Susp) 30 ml PO DAILY PRN PRN Reason: Constipation Meclizine HCl (Meclizine Hcl 25 Mg Tablet) 25 mg PO TID PRN PRN Reason: dizziness Last Admin: 01/26/24 09:59 Dose: 25 mg Melatonin (Melatonin 3 Mg Tablet) 9 mg PO BEDTIME PRN PRN Reason: Insomnia Last Admin: 01/26/24 21:48 Dose: 9 mg Midodrine (Midodrine Hcl 10 Mg Tablet) 10 mg PO TID@0800,1300,1800 [facility] Last Admin: 01/27/24 13:28 Dose: 10 mg Mirtazapine (Mirtazapine 15 Mg Tablet) 15 mg PO BEDTIME [facility] Last Admin: 01/26/24 20:33 Dose: 15 mg Nicotine (Nicotine 21 Mg Patch.Td24) 21 mg TRANSDERMA DAILY PRN PRN Reason: smoking cessation Nicotine Polacrilex (Nicotine Polacrilex 2 Mg Gum) 4 mg BUCCAL Q2H PRN PRN Reason: Nicotine Cravings Nitrofurantoin Macrocrystals (Nitrofurantoin Monohyd/M-Cryst 100 Mg Capsule) 100 mg PO BID [facility] Last Admin: 01/27/24 09:57 Dose: 100 mg Pt Own (Rosuvastatin (5 Mg Tablet)) 5 mg PO BEDTIME [facility] Last Admin: 01/26/24 20:52 Dose: 5 mg Ondansetron HCl (Ondansetron Odt 4 Mg Tab.Rapdis) 4 mg TRANSLINGU Q8H PRN PRN Reason: Nausea and Vomiting Last Admin: 01/25/24 13:00 Dose: 4 mg Psyllium Hydrophilic Mucilloid (Psyllium Seed 3.7 Gm Packet) 3.7 gm PO DAILY [facility] Last Admin: 01/27/24 09:57 Dose: 3.7 gm Topiramate (Topiramate 100 Mg Tablet) 100 mg PO DAILY [facility] Last Admin: 01/27/24 09:53 Dose: 100 mg Trazodone HCl (Trazodone Hcl 50 Mg Tablet) 50 mg PO BEDTIME MRX1 PRN PRN Reason: Insomnia Last Admin: 01/27/24 01:47 Dose: 50 mg Vitamin D (Cholecalciferol (Vitamin D3) 25 Mcg Tablet) 25 mcg PO DAILY [facility] Last Admin: 01/27/24 09:52 Dose: 25 mcg Allergies Allergies Allergy/AdvReac Type Severity Reaction Status Date / Time acetaminophen AdvReac Unknown Unknown Verified 01/22/24 09:01 atorvastatin AdvReac Severe elevated Uncoded 01/22/24 09:01 liver enzymes Assessment & Plan Assessment & Plan (1) MDD (major depressive disorder), recurrent, severe, with psychosis: Status: Acute Code(s): F33.3 - Major depressive disorder, recurrent, severe with psychotic symptoms (2) PTSD (post-traumatic stress disorder): Status: Acute Code(s): F43.10 - Post-traumatic stress disorder, unspecified Plan Patient is a 53-year-old female with history of MDD with psychotic features (r/o schizoaffective disorder, depressed type) PTSD, borderline traits, kidney cancer (one kidney) who presents for worsening depression and AH. Patient reports that she was feeling overall good enough until about 4 months ago. Without any obvious trigger, and despite continued adherence to medication regimen, she reports that her mood started to decline and AH (which is present independent of mood) became worse. Patient said she started having bad thoughts.. At which she became tearful and would not disclose them. She said her mood got worse and worse and voices told her to hurt herself; she started seeing shadow figures and having horrific nightmares where sometimes she can tell if she was awake or asleep but saw a ball of fire and things burning. AH worsened this past week and so patient self presented. She denies any history of manic type behaviors; ongoing PTSD symptoms. Patient does not remember history of med trials Formulaton/clinical reasoning: Health And Safety Advisor discussed case with patient's outpatient psychiatric provider Dr. Kathleen who has known patient for years. She reports that Patient has long history of depression, frequently severe, intermixed with PTSD symptoms, emotional reactivity; although patient endorses continue AH, Dr. Kathleen does not think necessarily an organic psychotic illness and only symptom is AH (no history of delusional thinking, no disorganized speech or behavior). Pt has had numerous medication trials with only partial response. Discussed treatment approaches and provider agrees that ECT trial is warranted; no benefit from Latuda thus far and although was only at 20 mg, agree to start Vraylar instead which maybe a little more robust in dealing with AH. Patient amenable to changing medications. [place]? only one kidney so hesitant. Also considerations are OCD/JAMIE Hospital course: 01/24 acute abdominal pain on right side, discussed with hospitalist. ordered CT abdomen/pelvic 01/25 patient had bowel movement however still some right-sided abdominal pain; commercial loan underwriter ordered labs and discussed with hospitalist CJ who said they would follow-up -elevated LFTs/GGT -agrees with increasing Vraylar and undergoing ECT; consent signed 01/26: Continue current management and treatment plan. PLAN: CV q15 min DC Latuda Increase Vraylar to 3 mg daily Proceed with ECT Topimax 100mg qhs; only used to prevent weight gain; will likely hold prior to ECT Numerous Med trials: Haldol: got tremor abilify: wt gain Medical problems: Orthostatic hypotension Pt with continued, lightheadedness and dizziness, ongoing for many years Continue midodrine CTA showing possible with thinning of semicircular canals bilaterally with question of dehiscence ED contacted ENT who said is likely transient No additional workup or treatment necessary at this time Can follow up outpatient with ENT Thyroid nodule CTA found 1.9 cm left thyroid nodule Outpatient follow-up with thyroid ultrasound Constipation Reports last bowel movement 5 days ago Will give lactulose 30 mg p.o. x1 dose Continue current bowel regimen Reason for continued inpatient stay Substantial Risk for: harm to self, inability to function and rapid decompensation Time Spent With Patient Time: Total time managing care of this patient today ____ minutes.
[2024-01-27] MEDS: Meclizine HCl 25 MG TABLET PO (16:18)
[2024-01-27 18:08] VITALS: BP 122/70
[2024-01-27 20:00] VITALS: BP 132/63; PULSE 60; RESP 16; TEMP 36.8; O2SAT 100
[2024-01-27] MEDS: Mirtazapine 15 MG TABLET PO (21:16)
[2024-01-27] MEDS: diphenhydrAMINE HCL 25 MG CAPSULE 50 MG PO (21:16)
[2024-01-27] MEDS: bisacodyL 5 MG TABLET.DR 10 MG PO (21:16)
[2024-01-27] MEDS: Milk of Magnesia 30 ML ORAL.SUSP PO (21:39)
[2024-01-27] MEDS: Melatonin 3 MG TABLET 9 MG PO (21:40)
[2024-01-27] MEDS: ROSUVASTATIN 5 MG 5 EACH PO (21:54)
[2024-01-28 00:01] VITALS: RESP 16
[2024-01-28] MEDS: traZODone HCL 50 MG TABLET PO ×2 (02:49→21:17)
[2024-01-28] MEDS: Topiramate 100 MG TABLET PO (08:38)
[2024-01-28] MEDS: Psyllium seed 3.7 GM PACKET PO (08:39)
[2024-01-28] MEDS: Gabapentin 400 MG CAPSULE 800 MG PO ×3 (08:39→21:16)
[2024-01-28] MEDS: Midodrine HCl 10 MG TABLET PO ×3 (08:39→17:04)
[2024-01-28] MEDS: Cholecalciferol (Vitamin D3) 25 MCG TABLET PO (08:39)
[2024-01-28] MEDS: Cyanocobalamin (Vitamin B-12) 500 MCG TABLET PO (08:39)
[2024-01-28] MEDS: Cariprazine HCl 3 MG CAPSULE PO (08:39)
[2024-01-28] MEDS: Ferrous Sulfate 324 MG TABLET.DR PO (08:39)
[2024-01-28] MEDS: Docusate Sodium 100 MG CAPSULE PO (08:39)
[2024-01-28] MEDS: Nitrofurantoin Monohyd/M-Cryst 100 MG CAPSULE PO ×2 (08:39→21:17)
[2024-01-28 08:52] VITALS: BP 106/62; PULSE 64; RESP 18; TEMP 36.9; O2SAT 99
[2024-01-28] MEDS: hydrOXYzine HCL 25 MG TABLET PO ×3 (09:47→21:17)
[2024-01-28] MEDS: Ibuprofen 400 MG TABLET PO (09:47)
--- NOTE | 2024-01-28 09:53 | P.PNPSI_ITS ---
Subjective Subjective Date of Service: 01/28/24 Reason For Visit: depression Interim History: With mri technologist Met with patient; discussed with team. She reports doing well. She is asking about ECT timing. Patient reports she is still depressed and sad. Auditory hallucinations are less. No SI. Review of Systems Review of Systems Negative except for that stated in the HPI Yes all other systems are reviewed and are negative Mental Status Exam Mental Status Exam Narrative: Pt is alert and oriented; behavior is cooperative, downcast; patient is not in distress; dressed in casual attire with adequate grooming; mood is described as Depressed and affect congruent, downcast; eye contact limited but a little more improved; Speech remained soft volume, slowed rate normal rate; normal prosody; psychomotor retardation present; thought process is organized and goal directed; Thought content is on misery of symptoms, tx; otherwise pertinent to relevant topics and without any delusional content, paranoid ideations or grandiosity; currently no SI; no HI; she reports continued AH, however little less Patients insight and judgment impaired Diagnostics Vital Signs (24Hr): Vital Signs - 24 hr 01/27/24 13:28 01/27/24 18:08 01/27/24 20:00 Temperature 98.2 F Pulse Rate 60 Respiratory Rate 16 Blood Pressure 118/66 122/70 132/63 Pulse Oximetry 100 Oxygen Delivery Method 01/28/24 00:01 01/28/24 08:52 Temperature 98.4 F Pulse Rate 64 Respiratory Rate 16 18 Blood Pressure 106/62 Pulse Oximetry 99 Oxygen Delivery Method Room Air BMI result Body Mass Index 27.8 Labs 01/26/24 10:40 01/26/24 10:41 Labs: Laboratory Results - last 48 hr 01/26/24 01/26/24 10:40 10:41 WBC 5.0 RBC 3.98 L Hgb 13.5 Hct 41.3 MCV 103.8 H MCH 33.9 H MCHC 32.7 RDW 12.0 Plt Count 246 MPV 9.5 Immature Gran % (Auto) 0.2 Neut % (Auto) 64.7 Lymph % (Auto) 24.5 [place] % (Auto) 8.2 Eos % (Auto) 1.6 Baso % (Auto) 0.8 Lymph # (Auto) 1.2 [place] # (Auto) 0.4 Eos # (Auto) 0.1 Baso # (Auto) 0.0 Abs Immat Gran (auto) 0.01 Absolute Neuts (auto) 3.3 Absolute Nucleated RBC 0.000 Nucleated RBC % (auto) 0.0 ESR 14 Sodium 144 Potassium 4.3 D Chloride 115 H Carbon Dioxide 22 Anion Gap 11 L BUN 13 Creatinine 1.17 Estim Creat Clear Calc 52.0 Estimated GFR 48 Random Glucose 90 Calcium 9.4 Total Bilirubin 0.4 GGT 131 H AST 72 H ALT 82 H Alkaline Phosphatase 159 H Ammonia 29 Total Protein 6.8 Albumin 3.9 Lipase 49 Imaging Radiology Impressions: ITS Impressions Head/Neck CTA 01/22/24 12:43 IMPRESSION: -No acute intracranial hemorrhage or edematous infarct. -No hemodynamically significant stenosis in the major arteries of the neck or intracranial circulation. -Incidentally noted thinning of the superior semicircular canals bilaterally, worse on the right with suggestion of dehiscence. If there is concern for semicircular canal dehiscence, recommend further characterization with dedicated CT of the temporal bones. -A 1.9 cm hypoattenuating nodule in the left thyroid lobe. Based on the recommendations of the ACR Incidental Thyroid Findings Committee (JACR 2015 Jun; 12(2):143-50), further evaluation by thyroid ultrasound is recommended for solitary incidental thyroid nodules greater than or equal to 1.5 cm in largest axial dimension in patients age 35 years and older who do not have limited life expectancy or significant morbidities, unless clinically warranted. Electronically signed by: Luis Armando Smith MD 01/22/2024 02:45 PM EDT Abdomen/Pelvis CT 01/25/24 18:13 IMPRESSION: Fluid throughout distal small bowel as well as the ascending and transverse colon, suggesting an element of hypersecretion. Small to moderate amount of stool within the descending and sigmoid colon. Postsurgical changes as above. Additional findings as above. Electronically signed by: Shravan Slaughter MD 01/26/2024 07:38 AM EDT RP Medications Medications Current Medications Al Hydroxide/Mg Hydroxide (Magnesium Hydrox/Alum Hydrox 30 Ml Oral.Susp) 30 ml PO Q6H PRN PRN Reason: Heartburn/Nausea Last Admin: 01/25/24 09:02 Dose: 30 ml Albuterol Sulfate (Albuterol Sulfate 90 Mcg 8 Gm Inhaler) 2 puff INHALE Q6H PRN PRN Reason: Shortness of Breath/Wheezing Albuterol Sulfate (Albuterol Sulfate 90 Mcg 8 Gm Inhaler) 2 puff INHALE RQ6H PRN PRN Reason: wheeze Bisacodyl (Bisacodyl 5 Mg Tablet.Dr) 10 mg PO BEDTIME [facility] Last Admin: 01/27/24 21:16 Dose: 10 mg Cariprazine (Cariprazine Hcl 3 Mg Capsule) 3 mg PO DAILY [facility] Last Admin: 01/28/24 08:39 Dose: 3 mg Cyanocobalamin (Cyanocobalamin (Vitamin B-12) 500 Mcg Tablet) 500 mcg PO DAILY [facility] Last Admin: 01/28/24 08:39 Dose: 500 mcg Diphenhydramine HCl (Diphenhydramine Hcl 25 Mg Capsule) 50 mg PO BEDTIME [facility] Last Admin: 01/27/24 21:16 Dose: 50 mg Docusate Sodium (Docusate Sodium 100 Mg Capsule) 100 mg PO DAILY [facility] Last Admin: 01/28/24 08:39 Dose: 100 mg Ferrous Sulfate (Ferrous Sulfate 324 Mg Tablet.Dr) 324 mg PO DAILY [facility] Last Admin: 01/28/24 08:39 Dose: 324 mg Gabapentin (Gabapentin 400 Mg Capsule) 800 mg PO TID [facility] Last Admin: 01/28/24 08:39 Dose: 800 mg Hydroxyzine HCl (Hydroxyzine Hcl 25 Mg Tablet) 25 mg PO Q6H PRN PRN Reason: Anxiety Last Admin: 01/28/24 09:47 Dose: 25 mg Ibuprofen (Ibuprofen 400 Mg Tablet) 400 mg PO Q6H PRN PRN Reason: Pain, Moderate(Pain Scale 4-6) Last Admin: 01/28/24 09:47 Dose: 400 mg Magnesium Hydroxide (Milk Of Magnesia 30 Ml Oral.Susp) 30 ml PO DAILY PRN PRN Reason: Constipation Last Admin: 01/27/24 21:39 Dose: 30 ml Meclizine HCl (Meclizine Hcl 25 Mg Tablet) 25 mg PO TID PRN PRN Reason: dizziness Last Admin: 01/27/24 16:18 Dose: 25 mg Melatonin (Melatonin 3 Mg Tablet) 9 mg PO BEDTIME PRN PRN Reason: Insomnia Last Admin: 01/27/24 21:40 Dose: 9 mg Midodrine (Midodrine Hcl 10 Mg Tablet) 10 mg PO TID@0800,1300,1800 [facility] Last Admin: 01/28/24 08:39 Dose: 10 mg Mirtazapine (Mirtazapine 15 Mg Tablet) 15 mg PO BEDTIME [facility] Last Admin: 01/27/24 21:16 Dose: 15 mg Nicotine (Nicotine 21 Mg Patch.Td24) 21 mg TRANSDERMA DAILY PRN PRN Reason: smoking cessation Nicotine Polacrilex (Nicotine Polacrilex 2 Mg Gum) 4 mg BUCCAL Q2H PRN PRN Reason: Nicotine Cravings Nitrofurantoin Macrocrystals (Nitrofurantoin Monohyd/M-Cryst 100 Mg Capsule) 100 mg PO BID [facility] Last Admin: 01/28/24 08:39 Dose: 100 mg Pt Own (Rosuvastatin (5 Mg Tablet)) 5 mg PO BEDTIME [facility] Last Admin: 01/27/24 21:54 Dose: 5 mg Ondansetron HCl (Ondansetron Odt 4 Mg Tab.Rapdis) 4 mg TRANSLINGU Q8H PRN PRN Reason: Nausea and Vomiting Last Admin: 01/25/24 13:00 Dose: 4 mg Psyllium Hydrophilic Mucilloid (Psyllium Seed 3.7 Gm Packet) 3.7 gm PO DAILY [facility] Last Admin: 01/28/24 08:39 Dose: 3.7 gm Topiramate (Topiramate 100 Mg Tablet) 100 mg PO DAILY [facility] Last Admin: 01/28/24 08:38 Dose: 100 mg Trazodone HCl (Trazodone Hcl 50 Mg Tablet) 50 mg PO BEDTIME MRX1 PRN PRN Reason: Insomnia Last Admin: 01/28/24 02:49 Dose: 50 mg Vitamin D (Cholecalciferol (Vitamin D3) 25 Mcg Tablet) 25 mcg PO DAILY [facility] Last Admin: 01/28/24 08:39 Dose: 25 mcg Allergies Allergies Allergy/AdvReac Type Severity Reaction Status Date / Time acetaminophen AdvReac Unknown Unknown Verified 01/22/24 09:01 atorvastatin AdvReac Severe elevated Uncoded 01/22/24 09:01 liver enzymes Assessment & Plan Assessment & Plan (1) MDD (major depressive disorder), recurrent, severe, with psychosis: Status: Acute Code(s): F33.3 - Major depressive disorder, recurrent, severe with psychotic symptoms (2) PTSD (post-traumatic stress disorder): Status: Acute Code(s): F43.10 - Post-traumatic stress disorder, unspecified Plan Patient is a 53-year-old female with history of MDD with psychotic features (r/o schizoaffective disorder, depressed type) PTSD, borderline traits, kidney cancer (one kidney) who presents for worsening depression and AH. Patient reports that she was feeling overall good enough until about 4 months ago. Without any obvious trigger, and despite continued adherence to medication regimen, she reports that her mood started to decline and AH (which is present independent of mood) became worse. Patient said she started having bad thoughts.. At which she became tearful and would not disclose them. She said her mood got worse and worse and voices told her to hurt herself; she started seeing shadow figures and having horrific nightmares where sometimes she can tell if she was awake or asleep but saw a ball of fire and things burning. AH worsened this past week and so patient self presented. She denies any history of manic type behaviors; ongoing PTSD symptoms. Patient does not remember history of med trials Formulaton/clinical reasoning: Glass Designer discussed case with patient's outpatient psychiatric provider Dr. Kathleen who has known patient for years. She reports that Patient has long history of depression, frequently severe, intermixed with PTSD symptoms, emotional reactivity; although patient endorses continue AH, Dr. Kathleen does not think necessarily an organic psychotic illness and only symptom is AH (no history of delusional thinking, no disorganized speech or behavior). Pt has had numerous medication trials with only partial response. Discussed treatment approaches and provider agrees that ECT trial is warranted; no benefit from Latuda thus far and although was only at 20 mg, agree to start Vraylar instead which maybe a little more robust in dealing with AH. Patient amenable to changing medications. [place]? only one kidney so hesitant. Also considerations are OCD/JAMIE Hospital course: 01/24 acute abdominal pain on right side, discussed with hospitalist. ordered CT abdomen/pelvic 01/25 patient had bowel movement however still some right-sided abdominal pain; insurance writer ordered labs and discussed with hospitalist CJ who said they would follow-up -elevated LFTs/GGT -agrees with increasing Vraylar and undergoing ECT; consent signed 01/26: Continue current management and treatment plan. 01/27: Continue current management and treatment plan. PLAN: CV q15 min DC Latuda Increase Vraylar to 3 mg daily Proceed with ECT Topimax 100mg qhs; only used to prevent weight gain; will likely hold prior to ECT Numerous Med trials: Haldol: got tremor abilify: wt gain Medical problems: Orthostatic hypotension Pt with continued, lightheadedness and dizziness, ongoing for many years Continue midodrine CTA showing possible with thinning of semicircular canals bilaterally with question of dehiscence ED contacted ENT who said is likely transient No additional workup or treatment necessary at this time Can follow up outpatient with ENT Thyroid nodule CTA found 1.9 cm left thyroid nodule Outpatient follow-up with thyroid ultrasound Constipation Reports last bowel movement 5 days ago Will give lactulose 30 mg p.o. x1 dose Continue current bowel regimen Reason for continued inpatient stay Substantial Risk for: harm to self, inability to function and rapid decompensation Time Spent With Patient Time: Total time managing care of this patient today ____ minutes.
[2024-01-28 13:54] VITALS: BP 118/58
[2024-01-28 17:05] VITALS: BP 107/55; PULSE 52
[2024-01-28 20:00] VITALS: BP 120/56; PULSE 55; RESP 15; TEMP 36.5; O2SAT 99
[2024-01-28] MEDS: ROSUVASTATIN 5 MG 5 EACH PO (21:16)
[2024-01-28] MEDS: Melatonin 3 MG TABLET 9 MG PO (21:17)
[2024-01-28] MEDS: diphenhydrAMINE HCL 25 MG CAPSULE 50 MG PO (21:17)
[2024-01-28] MEDS: Mirtazapine 15 MG TABLET PO (21:18)
[2024-01-28] MEDS: bisacodyL 5 MG TABLET.DR 10 MG PO (21:18)
[2024-01-28 23:23] VITALS: PULSE 75; RESP 17; O2SAT 98
[2024-01-29] MEDS: hydrOXYzine HCL 25 MG TABLET PO (04:43)
[2024-01-29 08:00] VITALS: BP 90/51; PULSE 51; RESP 18; TEMP 36.1; O2SAT 99
[2024-01-29] MEDS: Cholecalciferol (Vitamin D3) 25 MCG TABLET PO (09:19)
[2024-01-29] MEDS: Topiramate 100 MG TABLET PO (09:19)
[2024-01-29] MEDS: Docusate Sodium 100 MG CAPSULE PO (09:19)
[2024-01-29] MEDS: Ferrous Sulfate 324 MG TABLET.DR PO (09:19)
[2024-01-29] MEDS: Gabapentin 400 MG CAPSULE 800 MG PO ×3 (09:20→20:54)
[2024-01-29] MEDS: Nitrofurantoin Monohyd/M-Cryst 100 MG CAPSULE PO ×2 (09:20→20:53)
[2024-01-29] MEDS: Midodrine HCl 10 MG TABLET PO ×3 (09:20→17:21)
[2024-01-29] MEDS: Cariprazine HCl 3 MG CAPSULE PO (09:20)
[2024-01-29] MEDS: Psyllium seed 3.7 GM PACKET PO (09:20)
[2024-01-29] MEDS: Cyanocobalamin (Vitamin B-12) 500 MCG TABLET PO (09:20)
--- NOTE | 2024-01-29 10:11 | HO.PSYCHPN ---
Subjective Subjective Date of Service: 01/29/24 Reason For Visit: depression Interim History: met with patient; discussed with team\ Patient reports continued depression with congruent affect; continues with AH which remain problematic. Patient discussed ECT with radio news writer and wants to continue with this plan. Patient reporting right lower quadrant abdominal pain which she said started about 2 days ago and has been Ebbing and flowing but increasing in pain which is an 8/10. Point tenderness with some rebound tenderness as well, but no guarding. Patient is only eating a little bit but continues drinking. Also 1 bowel movement a week ago which was small and otherwise only 1 very small 1 today. -no history of appendectomy; denies any history of cholecystectomy -will order CBC and monitor progress; patient will report to staff if pain worsens -will also treat for constipation Mental Status Exam Mental Status Exam Narrative: Pt is alert and oriented; behavior is cooperative, downcast; patient is not in distress; dressed in casual attire with adequate grooming; mood is described as Depressed and affect congruent, downcast; eye contact limited but a little more improved; Speech remained soft volume, slowed rate normal rate; normal prosody; psychomotor retardation present; thought process is organized and goal directed; Thought content is on misery of symptoms, tx; otherwise pertinent to relevant topics and without any delusional content, paranoid ideations or grandiosity; currently no SI; no HI; she reports continued AH, however little less Patients insight and judgment impaired Diagnostics Vital Signs (24Hr): Vital Signs - 24 hr 01/28/24 13:54 01/28/24 17:05 01/28/24 20:00 Temperature 97.7 F Pulse Rate 52 55 Respiratory Rate 15 Blood Pressure 118/58 L 107/55 L 120/56 L Pulse Oximetry 99 Oxygen Delivery Method 01/28/24 23:23 01/29/24 08:00 Temperature 97.0 F Pulse Rate 51 Respiratory Rate 17 18 Blood Pressure 90/51 L Pulse Oximetry 99 Oxygen Delivery Method Room Air BMI result Body Mass Index 27.8 Labs 01/26/24 10:40 01/26/24 10:41 Imaging Radiology Impressions: ITS Impressions Head/Neck CTA 01/22/24 12:43 IMPRESSION: -No acute intracranial hemorrhage or edematous infarct. -No hemodynamically significant stenosis in the major arteries of the neck or intracranial circulation. -Incidentally noted thinning of the superior semicircular canals bilaterally, worse on the right with suggestion of dehiscence. If there is concern for semicircular canal dehiscence, recommend further characterization with dedicated CT of the temporal bones. -A 1.9 cm hypoattenuating nodule in the left thyroid lobe. Based on the recommendations of the ACR Incidental Thyroid Findings Committee (JACR 2014; 12(2):143-50), further evaluation by thyroid ultrasound is recommended for solitary incidental thyroid nodules greater than or equal to 1.5 cm in largest axial dimension in patients age 35 years and older who do not have limited life expectancy or significant morbidities, unless clinically warranted. Electronically signed by: Luis Armando Smith MD 01/22/2024 02:45 PM EDT RP Abdomen/Pelvis CT 01/25/24 18:13 IMPRESSION: Fluid throughout distal small bowel as well as the ascending and transverse colon, suggesting an element of hypersecretion. Small to moderate amount of stool within the descending and sigmoid colon. Postsurgical changes as above. Additional findings as above. Electronically signed by: Shravan Slaughter MD 01/26/2024 07:38 AM EDT RP Medications Medications Current Medications Al Hydroxide/Mg Hydroxide (Magnesium Hydrox/Alum Hydrox 30 Ml Oral.Susp) 30 ml PO Q6H PRN PRN Reason: Heartburn/Nausea Last Admin: 01/25/24 09:02 Dose: 30 ml Albuterol Sulfate (Albuterol Sulfate 90 Mcg 8 Gm Inhaler) 2 puff INHALE Q6H PRN PRN Reason: Shortness of Breath/Wheezing Albuterol Sulfate (Albuterol Sulfate 90 Mcg 8 Gm Inhaler) 2 puff INHALE RQ6H PRN PRN Reason: wheeze Bisacodyl (Bisacodyl 5 Mg Tablet.Dr) 10 mg PO BEDTIME JYOTHI Last Admin: 01/28/24 21:18 Dose: 10 mg Cariprazine (Cariprazine Hcl 3 Mg Capsule) 3 mg PO DAILY JYOTHI Last Admin: 01/29/24 09:20 Dose: 3 mg Cyanocobalamin (Cyanocobalamin (Vitamin B-12) 500 Mcg Tablet) 500 mcg PO DAILY JYOTHI Last Admin: 01/29/24 09:20 Dose: 500 mcg Diphenhydramine HCl (Diphenhydramine Hcl 25 Mg Capsule) 50 mg PO BEDTIME JYOTHI Last Admin: 01/28/24 21:17 Dose: 50 mg Docusate Sodium (Docusate Sodium 100 Mg Capsule) 100 mg PO DAILY [facility] Last Admin: 01/29/24 09:19 Dose: 100 mg Ferrous Sulfate (Ferrous Sulfate 324 Mg Tablet.Dr) 324 mg PO DAILY [facility] Last Admin: 01/29/24 09:19 Dose: 324 mg Gabapentin (Gabapentin 400 Mg Capsule) 800 mg PO TID [facility] Last Admin: 01/29/24 09:20 Dose: 800 mg Hydroxyzine HCl (Hydroxyzine Hcl 25 Mg Tablet) 25 mg PO Q6H PRN PRN Reason: Anxiety Last Admin: 01/29/24 04:43 Dose: 25 mg Ibuprofen (Ibuprofen 400 Mg Tablet) 400 mg PO Q6H PRN PRN Reason: Pain, Moderate(Pain Scale 4-6) Last Admin: 01/28/24 09:47 Dose: 400 mg Magnesium Hydroxide (Milk Of Magnesia 30 Ml Oral.Susp) 30 ml PO DAILY PRN PRN Reason: Constipation Last Admin: 01/27/24 21:39 Dose: 30 ml Meclizine HCl (Meclizine Hcl 25 Mg Tablet) 25 mg PO TID PRN PRN Reason: dizziness Last Admin: 01/27/24 16:18 Dose: 25 mg Melatonin (Melatonin 3 Mg Tablet) 9 mg PO BEDTIME PRN PRN Reason: Insomnia Last Admin: 01/28/24 21:17 Dose: 9 mg Midodrine (Midodrine Hcl 10 Mg Tablet) 10 mg PO TID@0800,1300,1800 [facility] Last Admin: 01/29/24 09:20 Dose: 10 mg Mirtazapine (Mirtazapine 15 Mg Tablet) 15 mg PO BEDTIME [facility] Last Admin: 01/28/24 21:18 Dose: 15 mg Nicotine (Nicotine 21 Mg Patch.Td24) 21 mg TRANSDERMA DAILY PRN PRN Reason: smoking cessation Nicotine Polacrilex (Nicotine Polacrilex 2 Mg Gum) 4 mg BUCCAL Q2H PRN PRN Reason: Nicotine Cravings Nitrofurantoin Macrocrystals (Nitrofurantoin Monohyd/M-Cryst 100 Mg Capsule) 100 mg PO BID [facility] Last Admin: 01/29/24 09:20 Dose: 100 mg Pt Own (Rosuvastatin (5 Mg Tablet)) 5 mg PO BEDTIME [facility] Last Admin: 01/28/24 21:16 Dose: 5 mg Ondansetron HCl (Ondansetron Odt 4 Mg Tab.Rapdis) 4 mg TRANSLINGU Q8H PRN PRN Reason: Nausea and Vomiting Last Admin: 01/25/24 13:00 Dose: 4 mg Psyllium Hydrophilic Mucilloid (Psyllium Seed 3.7 Gm Packet) 3.7 gm PO DAILY JYOTHI Last Admin: 01/29/24 09:20 Dose: 3.7 gm Topiramate (Topiramate 100 Mg Tablet) 100 mg PO DAILY JYOTHI Last Admin: 01/29/24 09:19 Dose: 100 mg Trazodone HCl (Trazodone Hcl 50 Mg Tablet) 50 mg PO BEDTIME MRX1 PRN PRN Reason: Insomnia Last Admin: 01/28/24 21:17 Dose: 50 mg Vitamin D (Cholecalciferol (Vitamin D3) 25 Mcg Tablet) 25 mcg PO DAILY [facility] Last Admin: 01/29/24 09:19 Dose: 25 mcg Allergies Allergies Allergy/AdvReac Type Severity Reaction Status Date / Time acetaminophen AdvReac Unknown Unknown Verified 01/22/24 09:01 atorvastatin AdvReac Severe elevated Uncoded 01/22/24 09:01 liver enzymes Assessment & Plan Assessment & Plan (1) MDD (major depressive disorder), recurrent, severe, with psychosis: Status: Acute Code(s): F33.3 - Major depressive disorder, recurrent, severe with psychotic symptoms (2) PTSD (post-traumatic stress disorder): Status: Acute Code(s): F43.10 - Post-traumatic stress disorder, unspecified Plan Patient is a 53-year-old female with history of MDD with psychotic features (r/o schizoaffective disorder, depressed type) PTSD, borderline traits, kidney cancer (one kidney) who presents for worsening depression and AH. Patient reports that she was feeling overall good enough until about 4 months ago. Without any obvious trigger, and despite continued adherence to medication regimen, she reports that her mood started to decline and AH (which is present independent of mood) became worse. Patient said she started having bad thoughts.. At which she became tearful and would not disclose them. She said her mood got worse and worse and voices told her to hurt herself; she started seeing shadow figures and having horrific nightmares where sometimes she can tell if she was awake or asleep but saw a ball of fire and things burning. AH worsened this past week and so patient self presented. She denies any history of manic type behaviors; ongoing PTSD symptoms. Patient does not remember history of med trials Formulaton/clinical reasoning: Price Economist discussed case with patient's outpatient psychiatric provider Dr. Kathleen who has known patient for years. She reports that Patient has long history of depression, frequently severe, intermixed with PTSD symptoms, emotional reactivity; although patient endorses continue AH, Dr. Kathleen does not think necessarily an organic psychotic illness and only symptom is AH (no history of delusional thinking, no disorganized speech or behavior). Pt has had numerous medication trials with only partial response. Discussed treatment approaches and provider agrees that ECT trial is warranted; no benefit from Latuda thus far and although was only at 20 mg, agree to start Vraylar instead which maybe a little more robust in dealing with AH. Patient amenable to changing medications. [place]? only one kidney so hesitant. Also considerations are OCD/JAMIE Hospital course: 01/24 acute abdominal pain on right side, discussed with hospitalist. ordered CT abdomen/pelvic 01/25 patient had bowel movement however still some right-sided abdominal pain; radio news writer ordered labs and discussed with hospitalist CJ who said they would follow-up -elevated LFTs/GGT -agrees with increasing Vraylar and undergoing ECT; consent signed 01/28 Patient reporting right lower quadrant abdominal pain which she said started about 2 days ago and has been Ebbing and flowing but increasing in pain which is an 8/10. Point tenderness with some rebound tenderness as well, but no guarding. Patient is only eating a little bit but continues drinking. Also 1 bowel movement a week ago which was small and otherwise only 1 very small 1 today. -vitals WNL and afebrile -no history of appendectomy; denies any history of cholecystectomy -will order CBC and monitor progress; patient will report to staff if pain worsens -will also treat for constipation PLAN: CV q15 min DC Latuda Continue Vraylar to 3 mg daily Proceed with ECT Topimax 100mg qhs; only used to prevent weight gain; will likely hold prior to ECT Numerous failed Med trials: Haldol: got tremor abilify: wt gain risperidone Geodon Cymbalta, Effexor, Lexapro, Pristiq mirtazapine lamictal Medical problems: Orthostatic hypotension Pt with continued, lightheadedness and dizziness, ongoing for many years Continue midodrine CTA showing possible with thinning of semicircular canals bilaterally with question of dehiscence ED contacted ENT who said is likely transient No additional workup or treatment necessary at this time Can follow up outpatient with ENT Thyroid nodule CTA found 1.9 cm left thyroid nodule Outpatient follow-up with thyroid ultrasound Constipation Reports last bowel movement 5 days ago Will give lactulose 30 mg p.o. x1 dose Continue current bowel regimen Patient educated on: diagnosis, medication risk/benefits, ECT and medical condition Informed Consent: understands Reason for continued inpatient stay Substantial Risk for: rapid decompensation Time Spent With Patient Time: Total time managing care of this patient today ____ minutes.
[2024-01-29 13:29] VITALS: BP 129/62; PULSE 62; O2SAT 98
[2024-01-29] MEDS: polyethylene glycoL 3350 17 GM POWD.PACK PO ×2 (15:13→19:32)
[2024-01-29 15:17] VITALS: BP 119/68; PULSE 62; RESP 16; TEMP 36.6; O2SAT 99
[2024-01-29 17:16] LABS: MANUAL DIFF FLAG NO
[2024-01-29 17:21] VITALS: BP 111/63
[2024-01-29] MEDS: Ibuprofen 400 MG TABLET PO (17:22)
[2024-01-29 17:23] VITALS: BP 111/63; PULSE 55; O2SAT 100
[2024-01-29 17:29] LABS: Basophils Absolute Auto 0.1 X10*3/uL (0.0-0.2); Basophils Percent Auto 0.7 % (0-2); Eosinophils Absolute Auto 0.1 X10*3/uL (0.0-0.4); Eosinophils Percent Auto 1.1 % (0-4); Hematocrit 39.5 % (37.0-47.0); Imm Gran Abs Auto 0.02 X10*3/uL (0.00-0.03); Imm Gran Pct Auto 0.3 % (0.0-0.4); Lymphocytes Absolute Auto 2.4 X10*3/uL (1.2-4.9); Mean Corpuscular HGB Conc 32.9 g/dl (31.0-35.0); Mean Corpuscular Hemoglobin 33.9 pg (27.0-33.0); Mean Corpuscular Volume 102.9 fL (80.0-98.0); Mean Platelet Volume 9.6 fL (9.4-12.3); Monocytes Absolute Auto 0.5 X10*3/uL (0.1-1.2); Monocytes Percent Auto 7.2 % (2-11); Neutrophils Absolute Auto 4.2 x10*3/uL (2.0-8.3); Neutrophils Percent Auto 57.7 % (45-73); Platelet Count 280 X10*3/uL (160-400); Red Blood Count 3.84 X10*6/uL (4.20-5.50); Red Cell Distribution Width 11.9 % (11.0-16.0); White Blood Count 7.2 X10*3/uL (4.8-10.8)
[2024-01-29 17:30] LABS: Alanine Aminotransferase 30 U/L (0-31); Albumin Level 3.7 g/dL (3.5-5.0); Alkaline Phosphatase 139 U/L (39-117); Aspartate Amino Transferase 20 U/L (5-31); Bilirubin Direct < 0.2 mg/dL (0.0-0.5); Bilirubin Total 0.2 mg/dL (0.0-1.0); Total Protein 6.5 g/dL (6.5-8.0)
[2024-01-29 20:00] VITALS: BP 121/57; PULSE 60; RESP 18; TEMP 36.4; O2SAT 97
[2024-01-29] MEDS: ROSUVASTATIN 5 MG 5 EACH PO (20:53)
[2024-01-29] MEDS: traZODone HCL 50 MG TABLET PO (20:53)
[2024-01-29] MEDS: diphenhydrAMINE HCL 25 MG CAPSULE 50 MG PO (20:54)
[2024-01-29] MEDS: Mirtazapine 15 MG TABLET PO (20:54)
[2024-01-29] MEDS: bisacodyL 5 MG TABLET.DR 10 MG PO (20:54)
[2024-01-29] MEDS: Melatonin 3 MG TABLET 9 MG PO (20:54)
[2024-01-30 00:17] VITALS: RESP 18
[2024-01-30] MEDS: traZODone HCL 50 MG TABLET PO ×2 (03:08→21:12)
[2024-01-30] MEDS: hydrOXYzine HCL 25 MG TABLET PO (03:08)
[2024-01-30 08:40] VITALS: BP 96/52; PULSE 63; RESP 16; TEMP 36.8; O2SAT 100
[2024-01-30] MEDS: Cariprazine HCl 3 MG CAPSULE PO (08:42)
[2024-01-30] MEDS: Docusate Sodium 100 MG CAPSULE PO (08:42)
[2024-01-30] MEDS: Topiramate 100 MG TABLET PO (08:42)
[2024-01-30] MEDS: Cholecalciferol (Vitamin D3) 25 MCG TABLET PO (08:42)
[2024-01-30] MEDS: Nitrofurantoin Monohyd/M-Cryst 100 MG CAPSULE PO ×2 (08:42→21:07)
[2024-01-30] MEDS: Gabapentin 400 MG CAPSULE 800 MG PO ×2 (08:42→15:07)
[2024-01-30] MEDS: Ferrous Sulfate 324 MG TABLET.DR PO (08:42)
[2024-01-30] MEDS: Midodrine HCl 10 MG TABLET PO ×3 (08:42→17:37)
[2024-01-30] MEDS: Cyanocobalamin (Vitamin B-12) 500 MCG TABLET PO (08:42)
[2024-01-30] MEDS: polyethylene glycoL 3350 17 GM POWD.PACK PO ×3 (10:36→21:12)
--- NOTE | 2024-01-30 10:58 | P.PNPSI_ITS ---
Subjective Subjective Date of Service: 01/30/24 Reason For Visit: depression Interim History: Met with patient and staff interpreter; discussed with team Patient initially says that she is doing good and that depression and AH are less. However with further inquiry, she reverts back to saying not so good and that she remains just as depressed and with bothersome AH. Patient can not say why she initially said otherwise. Patient said that voices are telling her throughout the day to hit... Hit her referring to female peers. Patient said voice repeats this over and over so she went got headphones to drown it out. She has no plans intentions or urges to hit anyone. Patient asked about clozapine; discussed medication management options and for now She agrees to increasing Vraylar and to going forward with ECT. Pain in abdomen remains but is less;WBC WNL; remains Afebrile and thus low concern for appendicitis will continue treating for constipation Mental Status Exam Mental Status Exam Narrative: Pt is alert and oriented; behavior is cooperative, downcast; patient is not in distress; dressed in casual attire with adequate grooming; mood is described as Depressed and affect congruent, downcast; eye contact limited; Speech remained soft volume, slowed rate; normal prosody; psychomotor retardation present; thought process is with thought blocking and some speech latency; otherwise goal directed; Thought content is on misery of symptoms, tx; otherwise pertinent to relevant topics and without any delusional content, paranoid ideations or grandiosity; currently no SI; no HI; patient internally preoccupied; she reports continued AH which is very problematic. Patients insight and judgment impaired Diagnostics Vital Signs (24Hr): Vital Signs - 24 hr 01/29/24 13:29 01/29/24 15:17 01/29/24 17:21 Temperature 97.8 F Pulse Rate 62 62 Respiratory Rate 16 Blood Pressure 129/62 119/68 111/63 Pulse Oximetry 98 99 Oxygen Delivery Method Room Air Room Air 01/29/24 17:23 01/29/24 20:00 01/30/24 00:17 Temperature 97.5 F Pulse Rate 55 60 Respiratory Rate 18 18 Blood Pressure 111/63 121/57 L Pulse Oximetry 100 97 Oxygen Delivery Method Room Air Room Air 01/30/24 08:40 Temperature 98.2 F Pulse Rate 63 Respiratory Rate 16 Blood Pressure 96/52 L Pulse Oximetry 100 Oxygen Delivery Method Room Air BMI result Body Mass Index 27.8 Labs 01/29/24 17:11 01/26/24 10:41 Labs: Laboratory Results - last 48 hr 01/29/24 17:11 WBC 7.2 RBC 3.84 L Hgb 13.0 Hct 39.5 MCV 102.9 H MCH 33.9 H MCHC 32.9 RDW 11.9 Plt Count 280 MPV 9.6 Immature Gran % (Auto) 0.3 Neut % (Auto) 57.7 Lymph % (Auto) 33.0 [place] % (Auto) 7.2 Eos % (Auto) 1.1 Baso % (Auto) 0.7 Lymph # (Auto) 2.4 [place] # (Auto) 0.5 Eos # (Auto) 0.1 Baso # (Auto) 0.1 Abs Immat Gran (auto) 0.02 Absolute Neuts (auto) 4.2 Absolute Nucleated RBC 0.000 Nucleated RBC % (auto) 0.0 Total Bilirubin 0.2 Direct Bilirubin < 0.2 AST 20 ALT 30 Alkaline Phosphatase 139 H Total Protein 6.5 Albumin 3.7 Imaging Radiology Impressions: ITS Impressions Head/Neck CTA 01/22/24 12:43 IMPRESSION: -No acute intracranial hemorrhage or edematous infarct. -No hemodynamically significant stenosis in the major arteries of the neck or intracranial circulation. -Incidentally noted thinning of the superior semicircular canals bilaterally, worse on the right with suggestion of dehiscence. If there is concern for semicircular canal dehiscence, recommend further characterization with dedicated CT of the temporal bones. -A 1.9 cm hypoattenuating nodule in the left thyroid lobe. Based on the recommendations of the ACR Incidental Thyroid Findings Committee (JACR 2015 b; 12(2):143-50), further evaluation by thyroid ultrasound is recommended for solitary incidental thyroid nodules greater than or equal to 1.5 cm in largest axial dimension in patients age 35 years and older who do not have limited life expectancy or significant morbidities, unless clinically warranted. Electronically signed by: Luis Armando Smith MD 01/22/2024 02:45 PM EDT RP Abdomen/Pelvis CT 01/25/24 18:13 IMPRESSION: Fluid throughout distal small bowel as well as the ascending and transverse colon, suggesting an element of hypersecretion. Small to moderate amount of stool within the descending and sigmoid colon. Postsurgical changes as above. Additional findings as above. Electronically signed by: Shravan Slaughter MD 01/26/2024 07:38 AM EDT Medications Medications Current Medications Al Hydroxide/Mg Hydroxide (Magnesium Hydrox/Alum Hydrox 30 Ml Oral.Susp) 30 ml PO Q6H PRN PRN Reason: Heartburn/Nausea Last Admin: 01/25/24 09:02 Dose: 30 ml Albuterol Sulfate (Albuterol Sulfate 90 Mcg 8 Gm Inhaler) 2 puff INHALE Q6H PRN PRN Reason: Shortness of Breath/Wheezing Bisacodyl (Bisacodyl 5 Mg Tablet.) 10 mg PO BEDTIME [facility] Last Admin: 01/29/24 20:54 Dose: 10 mg Cariprazine (Cariprazine Hcl 3 Mg Capsule) 3 mg PO DAILY [facility] Last Admin: 01/30/24 08:42 Dose: 3 mg Cyanocobalamin (Cyanocobalamin (Vitamin B-12) 500 Mcg Tablet) 500 mcg PO DAILY [facility] Last Admin: 01/30/24 08:42 Dose: 500 mcg Diphenhydramine HCl (Diphenhydramine Hcl 25 Mg Capsule) 50 mg PO BEDTIME [facility] Last Admin: 01/29/24 20:54 Dose: 50 mg Docusate Sodium (Docusate Sodium 100 Mg Capsule) 100 mg PO DAILY [facility] Last Admin: 01/30/24 08:42 Dose: 100 mg Ferrous Sulfate (Ferrous Sulfate 324 Mg Tablet.) 324 mg PO DAILY [facility] Last Admin: 01/30/24 08:42 Dose: 324 mg Gabapentin (Gabapentin 400 Mg Capsule) 800 mg PO TID [facility] Last Admin: 01/30/24 08:42 Dose: 800 mg Hydroxyzine HCl (Hydroxyzine Hcl 25 Mg Tablet) 25 mg PO Q6H PRN PRN Reason: Anxiety Last Admin: 01/30/24 03:08 Dose: 25 mg Ibuprofen (Ibuprofen 400 Mg Tablet) 400 mg PO Q6H PRN PRN Reason: Pain, Moderate(Pain Scale 4-6) Last Admin: 01/29/24 17:22 Dose: 400 mg Magnesium Hydroxide (Milk Of Magnesia 30 Ml Oral.Susp) 30 ml PO DAILY PRN PRN Reason: Constipation Last Admin: 01/27/24 21:39 Dose: 30 ml Meclizine HCl (Meclizine Hcl 25 Mg Tablet) 25 mg PO TID PRN PRN Reason: dizziness Last Admin: 01/27/24 16:18 Dose: 25 mg Melatonin (Melatonin 3 Mg Tablet) 9 mg PO BEDTIME PRN PRN Reason: Insomnia Last Admin: 01/29/24 20:54 Dose: 9 mg Midodrine (Midodrine Hcl 10 Mg Tablet) 10 mg PO TID@0800,1300,1800 [facility] Last Admin: 01/30/24 08:42 Dose: 10 mg Mirtazapine (Mirtazapine 15 Mg Tablet) 15 mg PO BEDTIME [facility] Last Admin: 01/29/24 20:54 Dose: 15 mg Nicotine (Nicotine 21 Mg Patch.Td24) 21 mg TRANSDERMA DAILY PRN PRN Reason: smoking cessation Nicotine Polacrilex (Nicotine Polacrilex 2 Mg Gum) 4 mg BUCCAL Q2H PRN PRN Reason: Nicotine Cravings Nitrofurantoin Macrocrystals (Nitrofurantoin Monohyd/M-Cryst 100 Mg Capsule) 100 mg PO BID [facility] Last Admin: 01/30/24 08:42 Dose: 100 mg Pt Own (Rosuvastatin (5 Mg Tablet)) 5 mg PO BEDTIME [facility] Last Admin: 01/29/24 20:53 Dose: 5 mg Ondansetron HCl (Ondansetron Odt 4 Mg Tab.Rapdis) 4 mg TRANSLINGU Q8H PRN PRN Reason: Nausea and Vomiting Last Admin: 01/25/24 13:00 Dose: 4 mg Polyethylene Glycol (Polyethylene Glycol 3350 17 Gm Powd.Pack) 17 gm PO QID PRN PRN Reason: Constipation Last Admin: 01/29/24 19:32 Dose: 17 gm Polyethylene Glycol (Polyethylene Glycol 3350 17 Gm Powd.Pack) 17 gm PO DAILY [facility] Last Admin: 01/30/24 10:36 Dose: 17 gm Sodium Biphosphate/Sodium Phosphate (Sodium Phosphate,[place]-Dibasic 133 Ml Enema) 133 ml CO ONCE PRN PRN Reason: continued constipation Topiramate (Topiramate 100 Mg Tablet) 100 mg PO DAILY [facility] Last Admin: 01/30/24 08:42 Dose: 100 mg Trazodone HCl (Trazodone Hcl 50 Mg Tablet) 50 mg PO BEDTIME MRX1 PRN PRN Reason: Insomnia Last Admin: 01/30/24 03:08 Dose: 50 mg Vitamin D (Cholecalciferol (Vitamin D3) 25 Mcg Tablet) 25 mcg PO DAILY [facility] Last Admin: 01/30/24 08:42 Dose: 25 mcg Allergies Allergies Allergy/AdvReac Type Severity Reaction Status Date / Time acetaminophen AdvReac Unknown Unknown Verified 01/22/24 09:01 atorvastatin AdvReac Severe elevated Uncoded 01/22/24 09:01 liver enzymes Assessment & Plan Assessment & Plan (1) MDD (major depressive disorder), recurrent, severe, with psychosis: Status: Acute Code(s): F33.3 - Major depressive disorder, recurrent, severe with psychotic symptoms (2) PTSD (post-traumatic stress disorder): Status: Acute Code(s): F43.10 - Post-traumatic stress disorder, unspecified Plan Patient is a 53-year-old female with history of MDD with psychotic features (r/o schizoaffective disorder, depressed type) PTSD, borderline traits, kidney cancer (one kidney) who presents for worsening depression and AH. Patient reports that she was feeling overall good enough until about 4 months ago. Without any obvious trigger, and despite continued adherence to medication regimen, she reports that her mood started to decline and AH (which is present independent of mood) became worse. Patient said she started having bad thoughts.. At which she became tearful and would not disclose them. She said her mood got worse and worse and voices told her to hurt herself; she started seeing shadow figures and having horrific nightmares where sometimes she can tell if she was awake or asleep but saw a ball of fire and things burning. AH worsened this past week and so patient self presented. She denies any history of manic type behaviors; ongoing PTSD symptoms. 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 Kathleen who has known patient for years. She reports that Patient has long history of depression, frequently severe, intermixed with PTSD symptoms, emotional reactivity; although patient endorses continue AH, Dr. Kathleen does not think necessarily an organic psychotic illness and only symptom is AH (no history of delusional thinking, no disorganized speech or behavior). Pt has had numerous medication trials with only partial response. Discussed treatment approaches and provider agrees that ECT trial is warranted; no benefit from Latuda thus far and although was only at 20 mg, agree to start Vraylar instead which maybe a little more robust in dealing with AH. Patient amenable to changing medications. [place]? only one kidney so hesitant. Also considerations are OCD/JAMIE Hospital course: 01/24 acute abdominal pain on right side, discussed with hospitalist. 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 Point tenderness with some rebound tenderness as well, but no guarding. Patient is only eating a little bit but continues drinking. Also 1 bowel movement a week ago which was small and otherwise only 1 very small 1 today. -vitals WNL and afebrile -no history of appendectomy; denies any history of cholecystectomy -will order CBC and monitor progress; patient will report to staff if pain worsens -will also treat for constipation 01/29with bothersome AH. Patient can not say why she initially said otherwise. Patient said that voices are telling her throughout the day to hit... Hit her referring to female peers. Patient said voice repeats this over and over so she went got headphones to drown it out. She has no plans intentions or urges to hit anyone. Patient asked about clozapine; discussed medication management options and for now She agrees to increasing Vraylar and to going forward with ECT. -Pain in abdomen remains but is less;WBC WNL; remains Afebrile and thus low concern for appendicitis will continue treating for constipation PLAN: CV q15 min DC Latuda Increase to Vraylar to 4.5 mg daily ECT #1 01/30 -NPO -hold bedtime Gabapentin -Lower Topimax to 50mg qhs (down from 100mg); only used to prevent weight gain; will lower and consider holding prior to Numerous failed Med trials: Haldol: got tremor abilify: wt gain risperidone Geodon Cymbalta, Effexor, Lexapro, Pristiq mirtazapine lamictal Medical problems: Orthostatic hypotension Pt with continued, lightheadedness and dizziness, ongoing for many years Continue midodrine CTA showing possible with thinning of semicircular canals bilaterally with question of dehiscence ED contacted ENT who said is likely transient No additional workup or treatment necessary at this time Can follow up outpatient with ENT Thyroid nodule CTA found 1.9 cm left thyroid nodule Outpatient follow-up with thyroid ultrasound Constipation Reports last bowel movement 5 days ago Will give lactulose 30 mg p.o. x1 dose Continue current bowel regimen Patient educated on: diagnosis, medication risk/benefits, ECT and medical condition Informed Consent: understands Reason for continued inpatient stay Substantial Risk for: inability to function Time Spent With Patient Time: Total time managing care of this patient today ____ minutes.
[2024-01-30 12:45] VITALS: BP 129/74; PULSE 58
[2024-01-30 17:37] VITALS: BP 126/60
[2024-01-30 20:07] VITALS: BP 127/79; PULSE 66; RESP 18; TEMP 36.5; O2SAT 99
[2024-01-30] MEDS: diphenhydrAMINE HCL 25 MG CAPSULE 50 MG PO (21:04)
[2024-01-30] MEDS: Mirtazapine 15 MG TABLET PO (21:04)
[2024-01-30] MEDS: Melatonin 3 MG TABLET 9 MG PO (21:07)
[2024-01-30] MEDS: bisacodyL 5 MG TABLET.DR 10 MG PO (21:07)
[2024-01-30] MEDS: ROSUVASTATIN 5 MG 5 EACH PO (21:15)
[2024-01-31] VITALS (10 sets, daily range): BP systolic 100–140; BP diastolic 52–78; PULSE 50–69; RESP 16–18; TEMP 36.1–37.1; O2SAT 96–100
[2024-01-31] MEDS: traZODone HCL 50 MG TABLET PO (03:11)
[2024-01-31] MEDS: Gabapentin 400 MG CAPSULE 800 MG PO ×3 (03:50→21:46)
--- NOTE | 2024-01-31 07:07 | MHC.SHP ---
Pre-Procedural Eval Section A - 24 Hr Update-Section A only Date of Service: 01/31/24 The patient is an INPATIENT: Yes Changes since office visit: No Cold of Flu in the past 2 weeks, No New Medical Problems, No Changes in Medication and No Patient answered all questions The patient has been examined within 24 hours of the surgical procedure. The History & Physical has been completed within 30 days and I have reviewed it.: Yes Section B - Complete if H&P > 30 days Chief Complaint: depression Details of Present Illness: Long hx of depression, failed several trials, currently inpatient due to exacerbation of depression. Never had ECT in the past Relevant Family History (Specify if Yes): No Relevant Social History: None Present Medications: see Short Stay Collaborative assessment Medical History: No relevant PMH History of Previous Operations: No relevant previous surgery Allergies: Allergies Allergy/AdvReac Type Severity Reaction Status Date / Time acetaminophen AdvReac Unknown Unknown Verified 01/22/24 09:01 atorvastatin AdvReac Severe elevated Uncoded 01/22/24 09:01 liver enzymes Review of Systems Sugical H&P ROS: Negative: Constitution, Cardiovascular, Respiratory, Neurological, Psychiatric, Hem-Onc, Allergic/Immunologic, Gastrointestinal, Genitourinary, Musculoskeletal, Integumentary, Endocrine and Eyes/Ears/Nose/Throat Exam Surgical H&P Exam: Normal: HEENT, Normal: Heart, Normal: Lungs, Normal: Extremities, Normal: Abdomen, Normal: Skin and Normal: Neurological Plan Diagnosis/Plan: Unchanged I have reviewed the history and physical and performed a pertinent physical examination on my patient. No changes have occurred unless specified. Time Spent With Patient Time: Total time managing care of this patient today __15__ minutes.
--- NOTE | 2024-01-31 08:07 | HO.ANESPROP2 ---
HPI - Anesthesia Eval Consult details Narrative: for ECT PMFSH Active Problems Active Problems: All Active Problems PTSD (post-traumatic stress disorder) (Acute) Depression with suicidal ideation (Acute) Dizziness (Acute) URI (upper respiratory infection) (Acute) Ventral hernia (Acute) Flank hernia (Acute) Sacroiliac joint dysfunction of both sides (Acute) Abdominal pannus (Acute) Depression (Acute) Hypotension (Acute) Lower urinary tract symptoms (Acute) Complicated urinary tract infection (Acute) Osteoporosis screening (Acute) Chronic kidney disease, stage III (moderate) (Acute) Paresthesia (Acute) Recurrent urinary tract infection (Acute) Solitary kidney, acquired (Acute) Orthostatic dizziness (Acute) Symptomatic abdominal panniculus (Acute) Panniculitis (Acute) Preoperative examination (Acute) Bilateral leg weakness (Acute) Obesity (Acute) Overweight (BMI 25.0-29.9) (Acute) Urinary tract infection (Acute) Dysuria (Acute) Skin laxity (Acute) Painful sexual intercourse (Acute) Dyspareunia, female (Acute) Nephrolithiasis (Acute) Constipation (Acute) Colon cancer screening (Acute) Overweight (Acute) Sacroiliac joint pain (Acute) Left lumbar radiculopathy (Acute) Memory impairment (Acute) Renal cyst (Acute) Transaminitis (Acute) Elevated LFTs (Acute) Abdominal wall mass (Acute) Annual physical exam (Acute) Bilateral elbow joint pain (Acute) Hip pain, bilateral (Acute) Knee pain, bilateral (Acute) Arthralgia (Acute) UTI (urinary tract infection) (Acute) Post traumatic stress disorder (PTSD) (Acute) MDD (major depressive disorder), recurrent, severe, with psychosis (Acute) Encounter to discuss test results (Acute) Urinary frequency (Acute) Urinary incontinence (Acute) Excess skin (Acute) Renal calculus, right (Acute) MIGUEL (obstructive sleep apnea) (Acute) Obesity (BMI 30-39.9) (Acute) Renal cyst (Acute) Diverticulosis (Acute) Tubular adenoma (Acute) Spondylosis of lumbar spine (Acute) Sacroiliitis (Acute) Dizziness of unknown etiology (Acute) Chronic constipation (Acute) History of gastric bypass (Acute ~2008) Dyspareunia (Acute) Pyelonephritis (Acute) Ingrown toenail (Acute) Iron deficiency anemia (Acute) Major depression, recurrent (Acute) Anxiety (Acute) Insomnia (Acute) Tremor (Acute) Orthostatic hypotension (Acute) Incisional hernia without obstruction or gangrene (Acute) Avascular necrosis of femoral head (Acute) Bilateral carpal tunnel syndrome (Acute) Peroneal neuropathy (Acute) Lumbar degenerative disc disease (Acute) Vitamin D deficiency (Acute) GERD (gastroesophageal reflux disease) (Acute) Migraine (Acute) Hyperlipidemia (Acute) Past Medical History Medical History Chronic kidney disease, stage III (moderate) Obesity (BMI 30-39.9) Renal cyst Diverticulosis Tubular adenoma Asthma Spondylosis of lumbar spine Sacroiliitis Dizziness of unknown etiology Chronic constipation Hx of schizophrenia Panic attacks PTSD (post-traumatic stress disorder) Dyspareunia Pyelonephritis Ingrown toenail Iron deficiency anemia Major depression, recurrent Anxiety Insomnia Tremor Orthostatic hypotension Incisional hernia without obstruction or gangrene Avascular necrosis of femoral head Bilateral carpal tunnel syndrome Peroneal neuropathy Lumbar degenerative disc disease Vitamin D deficiency GERD (gastroesophageal reflux disease) Migraine Hyperlipidemia Family History Family History Father Liver cancer Mother Breast cancer Sister Lung cancer Other Mental health problem Family history of problems with anesthesia: No Surgical History Surgical History History of left nephrectomy (~1999) History of colonoscopy History of surgery Hx of cystoscopy History of bilateral breast reduction surgery History of hysterectomy History of cholecystectomy History of endoscopy (~06/2016) History of bladder repair surgery (~03/2015) S/P cystoscopy (~07/30/12) S/P panniculectomy History of hernia repair (~03/29/10) History of bladder surgery (~10/2009) History of gastric bypass (~2008) History of incisional hernia repair (~1999) Hx of umbilical hernia repair (~1999) H/O left nephrectomy S/P laparoscopic sleeve gastrectomy History of Problems with Anesthesia: No Social History Social History Household Members: Family Housing: House Do you presently have visiting nurse or other home services: No Alcohol intake: never Patient Tobacco Use Status: Never used Tobacco e-Cigarette/Vaping Use: Never Used Second Hand Smoke Exposure: No Advance Directives Date on File: 07/12/21 service: No Current occupational status: disabled Sexual orientation: Straight/Heterosexual Cognitive needs: No Hearing needs: No Vision needs: Yes Meds Allergies Allergy/AdvReac Type Severity Reaction Status Date / Time acetaminophen AdvReac Unknown Unknown Verified 01/22/24 09:01 atorvastatin AdvReac Severe elevated Uncoded 01/22/24 09:01 liver enzymes Active Medications: Current Medications Al Hydroxide/Mg Hydroxide (Magnesium Hydrox/Alum Hydrox 30 Ml Oral.Susp) 30 ml PO Q6H PRN PRN Reason: Heartburn/Nausea Last Admin: 01/25/24 09:02 Dose: 30 ml Albuterol Sulfate (Albuterol Sulfate 90 Mcg 8 Gm Inhaler) 2 puff INHALE Q6H PRN PRN Reason: Shortness of Breath/Wheezing Bisacodyl (Bisacodyl 5 Mg Tablet.) 10 mg PO BEDTIME [facility] Last Admin: 01/30/24 21:07 Dose: 10 mg Cariprazine (Cariprazine Hcl 1.5 Mg Capsule) 4.5 mg PO DAILY [facility] Cyanocobalamin (Cyanocobalamin (Vitamin B-12) 500 Mcg Tablet) 500 mcg PO DAILY [facility] Last Admin: 01/30/24 08:42 Dose: 500 mcg Diphenhydramine HCl (Diphenhydramine Hcl 25 Mg Capsule) 50 mg PO BEDTIME [facility] Last Admin: 01/30/24 21:04 Dose: 50 mg Docusate Sodium (Docusate Sodium 100 Mg Capsule) 100 mg PO DAILY [facility] Last Admin: 01/30/24 08:42 Dose: 100 mg Ferrous Sulfate (Ferrous Sulfate 324 Mg Tablet.) 324 mg PO DAILY [facility] Last Admin: 01/30/24 08:42 Dose: 324 mg Gabapentin (Gabapentin 400 Mg Capsule) 800 mg PO TID [facility] Last Admin: 01/30/24 21:24 Dose: Not Given Hydroxyzine HCl (Hydroxyzine Hcl 25 Mg Tablet) 25 mg PO Q6H PRN PRN Reason: Anxiety Last Admin: 01/30/24 03:08 Dose: 25 mg Ibuprofen (Ibuprofen 400 Mg Tablet) 400 mg PO Q6H PRN PRN Reason: Pain, Moderate(Pain Scale 4-6) Last Admin: 01/29/24 17:22 Dose: 400 mg Magnesium Hydroxide (Milk Of Magnesia 30 Ml Oral.Susp) 30 ml PO DAILY PRN PRN Reason: Constipation Last Admin: 01/27/24 21:39 Dose: 30 ml Meclizine HCl (Meclizine Hcl 25 Mg Tablet) 25 mg PO TID PRN PRN Reason: dizziness Last Admin: 01/27/24 16:18 Dose: 25 mg Melatonin (Melatonin 3 Mg Tablet) 9 mg PO BEDTIME PRN PRN Reason: Insomnia Last Admin: 01/30/24 21:07 Dose: 9 mg Midodrine (Midodrine Hcl 10 Mg Tablet) 10 mg PO TID@0800,1300,1800 [facility] Last Admin: 01/30/24 17:37 Dose: 10 mg Mirtazapine (Mirtazapine 15 Mg Tablet) 15 mg PO BEDTIME [facility] Last Admin: 01/30/24 21:04 Dose: 15 mg Nicotine (Nicotine 21 Mg Patch.Td24) 21 mg TRANSDERMA DAILY PRN PRN Reason: smoking cessation Nicotine Polacrilex (Nicotine Polacrilex 2 Mg Gum) 4 mg BUCCAL Q2H PRN PRN Reason: Nicotine Cravings Nitrofurantoin Macrocrystals (Nitrofurantoin Monohyd/M-Cryst 100 Mg Capsule) 100 mg PO BID [facility] Last Admin: 01/30/24 21:07 Dose: 100 mg Pt Own (Rosuvastatin (5 Mg Tablet)) 5 mg PO BEDTIME [facility] Last Admin: 01/30/24 21:15 Dose: 5 mg Ondansetron HCl (Ondansetron Odt 4 Mg Tab.Rapdis) 4 mg TRANSLINGU Q8H PRN PRN Reason: Nausea and Vomiting Last Admin: 01/25/24 13:00 Dose: 4 mg Polyethylene Glycol (Polyethylene Glycol 3350 17 Gm Powd.Pack) 17 gm PO QID PRN PRN Reason: Constipation Last Admin: 01/29/24 19:32 Dose: 17 gm Polyethylene Glycol (Polyethylene Glycol 3350 17 Gm Powd.Pack) 17 gm PO DAILY [facility] Last Admin: 01/30/24 10:36 Dose: 17 gm Polyethylene Glycol (Polyethylene Glycol 3350 17 Gm Powd.Pack) 17 gm PO QID [facility] Last Admin: 01/30/24 21:12 Dose: 17 gm Sodium Biphosphate/Sodium Phosphate (Sodium Phosphate,[place]-Dibasic 133 Ml Enema) 133 ml UT ONCE PRN PRN Reason: continued constipation Topiramate (Topiramate 100 Mg Tablet) 100 mg PO DAILY [facility] Last Admin: 01/30/24 08:42 Dose: 100 mg Trazodone HCl (Trazodone Hcl 50 Mg Tablet) 50 mg PO BEDTIME MRX1 PRN PRN Reason: Insomnia Last Admin: 01/31/24 03:11 Dose: 50 mg Vitamin D (Cholecalciferol (Vitamin D3) 25 Mcg Tablet) 25 mcg PO DAILY [facility] Last Admin: 01/30/24 08:42 Dose: 25 mcg Home Medications ?Medication ?Instructions ?Recorded ?Confirmed ?Last Taken ?Type lorazepam 1 mg tablet 1 mg PO BID PRN Anxiety 11/02/22 01/23/24 Unknown History potassium citrate 5 mEq (540 mg) 5 meq PO DAILY 06/13/23 01/23/24 01/21/24 History tablet,extended release melatonin 5 mg tablet 5 mg PO BEDTIME PRN Insomnia 07/14/23 01/23/24 Unknown History mirtazapine 15 mg tablet 15 mg PO BEDTIME 12/05/23 01/23/24 01/21/24 History naproxen 500 mg tablet 500 mg PO DAILY 12/05/23 01/23/24 01/21/24 History topiramate 100 mg tablet 100 mg PO DAILY 12/05/23 01/23/24 Unknown History nitrofurantoin 1 cap PO BID 01/22/24 01/23/24 01/21/24 History monohydrate/macrocrystals 100 mg 100 mg capsule albuterol sulfate 90 mcg/actuation 2 puff inhalation Q6H PRN wheezing 01/23/24 01/23/24 Unknown History aerosol inhaler (Ventolin HFA) diphenhydramine HCl 25 mg capsule 25 mg PO TID PRN allergies 01/23/24 01/23/24 Unknown History (Banophen) lurasidone 40 mg tablet 40 mg PO DAILY 01/23/24 01/23/24 01/21/24 History pantoprazole 40 mg tablet,delayed 40 mg PO DAILY@0630 01/23/24 01/23/24 01/21/24 History release sumatriptan succinate 50 mg tablet 50 mg PO BID PRN Migraine Headache 01/23/24 01/23/24 Unknown History Exam Height,Weight and Vital Signs: Height 5 ft 3 in Weight 71.271 kg Last Vital Signs Temp 96.9 F 01/31/24 07:16 Pulse 50 01/31/24 07:16 Resp 16 01/31/24 07:16 BP 125/65 01/31/24 07:16 Pulse Ox 99 01/31/24 07:16 O2 Del Method Room Air 01/31/24 07:16 Pertinent Lab Results Pertinent Lab Results: Laboratory Tests 01/22/24 01/22/24 01/23/24 09:14 17:51 01:26 WBC 4.5 L RBC 4.05 L Hgb 13.9 Hct 40.1 MCV 99.0 H MCH 34.3 H MCHC 34.7 RDW 11.7 Plt Count 261 MPV 9.4 Immature Gran % (Auto) 0.2 Neut % (Auto) 68.9 Lymph % (Auto) 25.2 [place] % (Auto) 5.1 Eos % (Auto) 0.2 Baso % (Auto) 0.4 Lymph # (Auto) 1.1 L [place] # (Auto) 0.2 Eos # (Auto) 0.0 Baso # (Auto) 0.0 Abs Immat Gran (auto) 0.01 Absolute Neuts (auto) 3.1 Absolute Nucleated RBC 0.000 Nucleated RBC % (auto) 0.0 ESR Sodium 142 Potassium 3.5 D Chloride 116 H Carbon Dioxide 16 L Anion Gap 14 BUN 11 Creatinine 0.92 Estim Creat Clear Calc 69.3 Estimated GFR > 60 Random Glucose 118 H Estimat Average Glucose Hemoglobin A1c % Calcium 9.1 Magnesium 1.8 Total Bilirubin 0.8 Direct Bilirubin GGT AST 21 ALT 28 Alkaline Phosphatase 119 H Ammonia Troponin I High Sens < 2.7 Total Protein 7.0 Albumin 3.9 Triglycerides Cholesterol LDL Cholesterol, Calc HDL Cholesterol Lipase TSH Hold Yellow Top Urine Color Yellow Urine Appearance Clear Urine pH 7.0 Ur Specific [place] >= 1.030 H Urine Protein Negative Urine Glucose (UA) Negative Urine Ketones 40 Urine Blood Small (1+) H Urine Nitrite Negative Ur Leukocyte Esterase Negative Urine RBC >20 H Urine WBC 0-5 Ur Squamous Epith Cells 0-2 Urine Bacteria None Seen Hyaline Casts 0-2 Urine Opiates Screen Not Detected Ur Buprenorphine Scrn Not Detected Ur Oxycodone Screen Not Detected Urine Methadone Screen Not Detected Urine Fentanyl Screen Not Detected Ur Barbiturates Screen Not Detected Ur Phencyclidine Scrn Not Detected Ur Amphetamines Screen Not Detected U Benzodiazepines Scrn Not Detected Urine Cocaine Screen Not Detected U Marijuana (THC) Screen Not Detected Influenza Type A (PCR) NEGATIVE Influenza Type B (PCR) NEGATIVE RSV RNA Qual (PCR) NEGATIVE SARS-CoV-2 RNA (RT-PCR) NEGATIVE 01/24/24 01/26/24 01/26/24 08:14 10:40 10:41 WBC 5.0 RBC 3.98 L Hgb 13.5 Hct 41.3 MCV 103.8 H MCH 33.9 H MCHC 32.7 RDW 12.0 Plt Count 246 MPV 9.5 Immature Gran % (Auto) 0.2 Neut % (Auto) 64.7 Lymph % (Auto) 24.5 [place] % (Auto) 8.2 Eos % (Auto) 1.6 Baso % (Auto) 0.8 Lymph # (Auto) 1.2 [place] # (Auto) 0.4 Eos # (Auto) 0.1 Baso # (Auto) 0.0 Abs Immat Gran (auto) 0.01 Absolute Neuts (auto) 3.3 Absolute Nucleated RBC 0.000 Nucleated RBC % (auto) 0.0 ESR 14 Sodium 144 Potassium 4.3 D Chloride 115 H Carbon Dioxide 22 Anion Gap 11 L BUN 13 Creatinine 1.17 Estim Creat Clear Calc 52.0 Estimated GFR 48 Random Glucose 90 Estimat Average Glucose 103 Hemoglobin A1c % 5.2 Calcium 9.4 Magnesium Total Bilirubin 0.4 Direct Bilirubin GGT 131 H AST 72 H ALT 82 H Alkaline Phosphatase 159 H Ammonia 29 Troponin I High Sens Total Protein 6.8 Albumin 3.9 Triglycerides 85 Cholesterol 208 H LDL Cholesterol, Calc 129 H HDL Cholesterol 62 Lipase 49 TSH 0.82 Hold Yellow Top See Note Urine Color Urine Appearance Urine pH Ur Specific [place] Urine Protein Urine Glucose (UA) Urine Ketones Urine Blood Urine Nitrite Ur Leukocyte Esterase Urine RBC Urine WBC Ur Squamous Epith Cells Urine Bacteria Hyaline Casts Urine Opiates Screen Ur Buprenorphine Scrn Ur Oxycodone Screen Urine Methadone Screen Urine Fentanyl Screen Ur Barbiturates Screen Ur Phencyclidine Scrn Ur Amphetamines Screen U Benzodiazepines Scrn Urine Cocaine Screen U Marijuana (THC) Screen Influenza Type A (PCR) Influenza Type B (PCR) RSV RNA Qual (PCR) SARS-CoV-2 RNA (RT-PCR) 01/29/24 17:11 WBC 7.2 RBC 3.84 L Hgb 13.0 Hct 39.5 MCV 102.9 H MCH 33.9 H MCHC 32.9 RDW 11.9 Plt Count 280 MPV 9.6 Immature Gran % (Auto) 0.3 Neut % (Auto) 57.7 Lymph % (Auto) 33.0 [place] % (Auto) 7.2 Eos % (Auto) 1.1 Baso % (Auto) 0.7 Lymph # (Auto) 2.4 [place] # (Auto) 0.5 Eos # (Auto) 0.1 Baso # (Auto) 0.1 Abs Immat Gran (auto) 0.02 Absolute Neuts (auto) 4.2 Absolute Nucleated RBC 0.000 Nucleated RBC % (auto) 0.0 ESR Sodium Potassium Chloride Carbon Dioxide Anion Gap BUN Creatinine Estim Creat Clear Calc Estimated GFR Random Glucose Estimat Average Glucose Hemoglobin A1c % Calcium Magnesium Total Bilirubin 0.2 Direct Bilirubin < 0.2 GGT AST 20 ALT 30 Alkaline Phosphatase 139 H Ammonia Troponin I High Sens Total Protein 6.5 Albumin 3.7 Triglycerides Cholesterol LDL Cholesterol, Calc HDL Cholesterol Lipase TSH Hold Yellow Top Urine Color Urine Appearance Urine pH Ur Specific [place] Urine Protein Urine Glucose (UA) Urine Ketones Urine Blood Urine Nitrite Ur Leukocyte Esterase Urine RBC Urine WBC Ur Squamous Epith Cells Urine Bacteria Hyaline Casts Urine Opiates Screen Ur Buprenorphine Scrn Ur Oxycodone Screen Urine Methadone Screen Urine Fentanyl Screen Ur Barbiturates Screen Ur Phencyclidine Scrn Ur Amphetamines Screen U Benzodiazepines Scrn Urine Cocaine Screen U Marijuana (THC) Screen Influenza Type A (PCR) Influenza Type B (PCR) RSV RNA Qual (PCR) SARS-CoV-2 RNA (RT-PCR) Airway Mallampati Class: II TM Dist: <=3cm Neck ROM: Full Loose/Missing/Broken Teeth: No Heart: ok Lungs: ok Assessment and Plan Assessment Anesthesia Assessment: Anesthesia Plan Discussed and Chart Reviewed Final Anesthetic Review Family History of Problems with Anesthesia: No History of Problems with Anesthesia: No NPO: Yes ASA Class: III Final Preanesthetic Review: No Changes in Pt Med Stat, Meds/Allgs Chart Reviewed, Consent Obtained/Reviewed and Anes Risks/Benef Reviewed Patient Risk: Intermediate Procedure Risk: Intermediate Anesthetic Plan Anesthetic Plan: GA and Agree w/ Assess. and Plan Disposition: Standard PACU
--- NOTE | 2024-01-31 08:29 | HO.ECTPROC ---
ECT Procedure Note Diagnosis/Treatment Date of Service: 01/31/24 Diagnosis: Major Depressive Disorder Current Treatment Number: 1 Treatment: Series Interval Clinical Notes: The patient reported depression, no previous ECT done. ECT done right unilateral, at 0.25 at 100% with a long seizure that resolved by itself. Woke up well. Time: Total time managing care of this patient today ____ minutes. ECT Settings Device: THYMATRON DGx Electrode Placement: Right Unilateral Program/Pulse Width: 0.25 Energy Percent: 100 Seizure Duration By EEG (in seconds): 72 By Motor Observation (in seconds): 22 Medications Administration General Anesthetic: Etomidate (10) Muscle Relaxant: Succinylcholine (80) Airway Management Airway Management: Bag Mask Ventilation Treatment Recommendations Electrode Placement: Right Unilateral Program/Pulse Width: 0.25 Energy Percent: 80 Notes: Lower the stimuli next ECT Pt Tolerated Procedure w/o Issue: Yes
[2024-01-31] MEDS: Cholecalciferol (Vitamin D3) 25 MCG TABLET PO (09:38)
[2024-01-31] MEDS: Midodrine HCl 10 MG TABLET PO ×3 (09:38→17:58)
[2024-01-31] MEDS: Docusate Sodium 100 MG CAPSULE PO (09:38)
[2024-01-31] MEDS: Ferrous Sulfate 324 MG TABLET.DR PO (09:38)
[2024-01-31] MEDS: Nitrofurantoin Monohyd/M-Cryst 100 MG CAPSULE PO ×2 (09:38→21:46)
[2024-01-31] MEDS: Cyanocobalamin (Vitamin B-12) 500 MCG TABLET PO (09:39)
[2024-01-31] MEDS: Cariprazine HCl 1.5 MG CAPSULE 4.5 MG PO (09:39)
[2024-01-31] MEDS: polyethylene glycoL 3350 17 GM POWD.PACK PO ×3 (10:47→15:58)
[2024-01-31] MEDS: Topiramate 25 MG TABLET 100 MG PO (10:50)
[2024-01-31] MEDS: Ibuprofen 400 MG TABLET PO (10:51)
--- NOTE | 2024-01-31 16:57 | P.PNPSI_ITS ---
Subjective Subjective Date of Service: 01/31/24 Reason For Visit: depression Interim History: Met with patient; discussed with team; discussed with Dr. Flores Patient returns from ECT which she said was okay however has a headache; says she is allergic to Tylenol; agreed to aspirin and caffeine to increase fluid intake. She remains depressed with intermittent AH. She wants to continue with ECT Mental Status Exam Mental Status Exam Narrative: Pt is alert and oriented; behavior is cooperative, downcast; patient is not in distress; dressed in casual attire with adequate grooming; mood is described as Depressed and affect congruent, downcast; eye contact limited; Speech remained soft volume, slowed rate; normal prosody; psychomotor retardation present; thought process is with thought blocking and some speech latency; otherwise goal directed; Thought content is on misery of symptoms, tx; otherwise pertinent to relevant topics and without any delusional content, paranoid ideations or grandiosity; currently no SI; no HI; patient internally preoccupied; she reports continued AH which is very problematic. Patients insight and judgment impaired Diagnostics Vital Signs (24Hr): Vital Signs - 24 hr 01/30/24 17:37 01/30/24 20:07 01/31/24 07:16 Temperature 97.7 F 96.9 F Pulse Rate 66 50 Respiratory Rate 18 16 Blood Pressure 126/60 127/79 125/65 Pulse Oximetry 99 99 Oxygen Delivery Method Room Air Room Air Oxygen Flow Rate 01/31/24 08:40 01/31/24 08:45 01/31/24 08:50 Temperature 98.8 F Pulse Rate 69 65 61 Respiratory Rate 16 16 16 Blood Pressure 129/74 125/75 140/78 H Pulse Oximetry 96 99 100 Oxygen Delivery Method Nasal Cannula with ETCO2 Nasal Cannula with ETCO2 Nasal Cannula with ETCO2 Oxygen Flow Rate 2 2 2 01/31/24 08:55 01/31/24 09:10 01/31/24 09:22 Temperature 98.0 F 97.5 F Pulse Rate 60 66 57 Respiratory Rate 16 18 18 Blood Pressure 140/78 H 132/74 129/59 L Pulse Oximetry 100 97 97 Oxygen Delivery Method Nasal Cannula with ETCO2 Room Air Oxygen Flow Rate 35 01/31/24 13:28 Temperature Pulse Rate Respiratory Rate Blood Pressure 102/52 L Pulse Oximetry Oxygen Delivery Method Oxygen Flow Rate BMI result Body Mass Index 27.8 Labs 01/29/24 17:11 01/26/24 10:41 Labs: Laboratory Results - last 48 hr 01/29/24 17:11 WBC 7.2 RBC 3.84 L Hgb 13.0 Hct 39.5 MCV 102.9 H MCH 33.9 H MCHC 32.9 RDW 11.9 Plt Count 280 MPV 9.6 Immature Gran % (Auto) 0.3 Neut % (Auto) 57.7 Lymph % (Auto) 33.0 [place] % (Auto) 7.2 Eos % (Auto) 1.1 Baso % (Auto) 0.7 Lymph # (Auto) 2.4 [place] # (Auto) 0.5 Eos # (Auto) 0.1 Baso # (Auto) 0.1 Abs Immat Gran (auto) 0.02 Absolute Neuts (auto) 4.2 Absolute Nucleated RBC 0.000 Nucleated RBC % (auto) 0.0 Total Bilirubin 0.2 Direct Bilirubin < 0.2 AST 20 ALT 30 Alkaline Phosphatase 139 H Total Protein 6.5 Albumin 3.7 Imaging Radiology Impressions: ITS Impressions Head/Neck CTA 01/22/24 12:43 IMPRESSION: -No acute intracranial hemorrhage or edematous infarct. -No hemodynamically significant stenosis in the major arteries of the neck or intracranial circulation. -Incidentally noted thinning of the superior semicircular canals bilaterally, worse on the right with suggestion of dehiscence. If there is concern for semicircular canal dehiscence, recommend further characterization with dedicated CT of the temporal bones. -A 1.9 cm hypoattenuating nodule in the left thyroid lobe. Based on the recommendations of the ACR Incidental Thyroid Findings Committee (JACR 2015 Jun; 12(2):143-50), further evaluation by thyroid ultrasound is recommended for solitary incidental thyroid nodules greater than or equal to 1.5 cm in largest axial dimension in patients age 35 years and older who do not have limited life expectancy or significant morbidities, unless clinically warranted. Electronically signed by: Luis Armando Smith MD 01/22/2024 02:45 PM EDT Abdomen/Pelvis CT 01/25/24 18:13 IMPRESSION: Fluid throughout distal small bowel as well as the ascending and transverse colon, suggesting an element of hypersecretion. Small to moderate amount of stool within the descending and sigmoid colon. Postsurgical changes as above. Additional findings as above. Electronically signed by: Shravan Slaughter MD 01/26/2024 07:38 AM EDT Medications Medications Current Medications Al Hydroxide/Mg Hydroxide (Magnesium Hydrox/Alum Hydrox 30 Ml Oral.Susp) 30 ml PO Q6H PRN PRN Reason: Heartburn/Nausea Last Admin: 01/25/24 09:02 Dose: 30 ml Albuterol Sulfate (Albuterol Sulfate 90 Mcg 8 Gm Inhaler) 2 puff INHALE Q6H PRN PRN Reason: Shortness of Breath/Wheezing Bisacodyl (Bisacodyl 5 Mg Tablet.) 10 mg PO BEDTIME [facility] Last Admin: 01/30/24 21:07 Dose: 10 mg Cariprazine (Cariprazine Hcl 1.5 Mg Capsule) 4.5 mg PO DAILY [facility] Last Admin: 01/31/24 09:39 Dose: 4.5 mg Cyanocobalamin (Cyanocobalamin (Vitamin B-12) 500 Mcg Tablet) 500 mcg PO DAILY [facility] Last Admin: 01/31/24 09:39 Dose: 500 mcg Diphenhydramine HCl (Diphenhydramine Hcl 25 Mg Capsule) 50 mg PO BEDTIME [facility] Last Admin: 01/30/24 21:04 Dose: 50 mg Docusate Sodium (Docusate Sodium 100 Mg Capsule) 100 mg PO DAILY [facility] Last Admin: 01/31/24 09:38 Dose: 100 mg Ferrous Sulfate (Ferrous Sulfate 324 Mg Tablet.) 324 mg PO DAILY [facility] Last Admin: 01/31/24 09:38 Dose: 324 mg Gabapentin (Gabapentin 400 Mg Capsule) 800 mg PO TID [facility] Last Admin: 01/31/24 09:38 Dose: 800 mg Hydroxyzine HCl (Hydroxyzine Hcl 25 Mg Tablet) 25 mg PO Q6H PRN PRN Reason: Anxiety Last Admin: 01/30/24 03:08 Dose: 25 mg Ibuprofen (Ibuprofen 400 Mg Tablet) 400 mg PO Q6H PRN PRN Reason: Pain, Moderate(Pain Scale 4-6) Last Admin: 01/31/24 10:51 Dose: 400 mg Magnesium Hydroxide (Milk Of Magnesia 30 Ml Oral.Susp) 30 ml PO DAILY PRN PRN Reason: Constipation Last Admin: 01/27/24 21:39 Dose: 30 ml Meclizine HCl (Meclizine Hcl 25 Mg Tablet) 25 mg PO TID PRN PRN Reason: dizziness Last Admin: 01/27/24 16:18 Dose: 25 mg Melatonin (Melatonin 3 Mg Tablet) 9 mg PO BEDTIME PRN PRN Reason: Insomnia Last Admin: 01/30/24 21:07 Dose: 9 mg Midodrine (Midodrine Hcl 10 Mg Tablet) 10 mg PO TID@0800,1300,1800 [facility] Last Admin: 01/31/24 13:28 Dose: 10 mg Mirtazapine (Mirtazapine 15 Mg Tablet) 15 mg PO BEDTIME [facility] Last Admin: 01/30/24 21:04 Dose: 15 mg Naloxone HCl (Naloxone Hcl 0.4 Mg/Ml Vial) 0.04 mg IVPUSH Q5M PRN PRN Reason: Excessive sedation or RR < 8 Nicotine (Nicotine 21 Mg Patch.Td24) 21 mg TRANSDERMA DAILY PRN PRN Reason: smoking cessation Nicotine Polacrilex (Nicotine Polacrilex 2 Mg Gum) 4 mg BUCCAL Q2H PRN PRN Reason: Nicotine Cravings Nitrofurantoin Macrocrystals (Nitrofurantoin Monohyd/M-Cryst 100 Mg Capsule) 100 mg PO BID [facility] Last Admin: 01/31/24 09:38 Dose: 100 mg Pt Own (Rosuvastatin (5 Mg Tablet)) 5 mg PO BEDTIME [facility] Last Admin: 01/30/24 21:15 Dose: 5 mg Ondansetron HCl (Ondansetron Odt 4 Mg Tab.Rapdis) 4 mg TRANSLINGU Q8H PRN PRN Reason: Nausea and Vomiting Last Admin: 01/25/24 13:00 Dose: 4 mg Polyethylene Glycol (Polyethylene Glycol 3350 17 Gm Powd.Pack) 17 gm PO DAILY [facility] Last Admin: 01/31/24 09:44 Dose: Not Given Polyethylene Glycol (Polyethylene Glycol 3350 17 Gm Powd.Pack) 17 gm PO QID [facility] Last Admin: 01/31/24 15:58 Dose: 17 gm Sodium Biphosphate/Sodium Phosphate (Sodium Phosphate,Fillmore-Dibasic 133 Ml Enema) 133 ml DC ONCE PRN PRN Reason: continued constipation Sodium Biphosphate/Sodium Phosphate (Sodium Phosphate,Fill[place]-Dibasic 133 Ml Enema) 133 ml DC ONCE PRN PRN Reason: continued constipation Sodium Biphosphate/Sodium Phosphate (Sodium Phosphate,[place]-Dibasic 133 Ml Enema) 133 ml DC DAILY PRN PRN Reason: continued constipation Topiramate (Topiramate 25 Mg Tablet) 100 mg PO DAILY [facility] Last Admin: 01/31/24 10:50 Dose: 100 mg Trazodone HCl (Trazodone Hcl 50 Mg Tablet) 50 mg PO BEDTIME MRX1 PRN PRN Reason: Insomnia Last Admin: 01/31/24 03:11 Dose: 50 mg Vitamin D (Cholecalciferol (Vitamin D3) 25 Mcg Tablet) 25 mcg PO DAILY [facility] Last Admin: 01/31/24 09:38 Dose: 25 mcg Allergies Allergies Allergy/AdvReac Type Severity Reaction Status Date / Time acetaminophen AdvReac Unknown Unknown Verified 01/22/24 09:01 atorvastatin AdvReac Severe elevated Uncoded 01/22/24 09:01 liver enzymes Assessment & Plan Assessment & Plan (1) MDD (major depressive disorder), recurrent, severe, with psychosis: Status: Acute Code(s): F33.3 - Major depressive disorder, recurrent, severe with psychotic symptoms (2) PTSD (post-traumatic stress disorder): Status: Acute Code(s): F43.10 - Post-traumatic stress disorder, unspecified Plan Patient is a 53-year-old female with history of MDD with psychotic features (r/o schizoaffective disorder, depressed type) PTSD, borderline traits, kidney cancer (one kidney) who presents for worsening depression and AH. Patient reports that she was feeling overall good enough until about 4 months ago. Without any obvious trigger, and despite continued adherence to medication regimen, she reports that her mood started to decline and AH (which is present independent of mood) became worse. Patient said she started having bad thoughts.. At which she became tearful and would not disclose them. She said her mood got worse and worse and voices told her to hurt herself; she started seeing shadow figures and having horrific nightmares where sometimes she can tell if she was awake or asleep but saw a ball of fire and things burning. AH worsened this past week and so patient self presented. She denies any history of manic type behaviors; ongoing PTSD symptoms. 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 Kathleen who has known patient for years. She reports that Patient has long history of depression, frequently severe, intermixed with PTSD symptoms, emotional reactivity; although patient endorses continue AH, Dr. Kathleen does not think necessarily an organic psychotic illness and only symptom is AH (no history of delusional thinking, no disorganized speech or behavior). Pt has had numerous medication trials with only partial response. Discussed treatment approaches and provider agrees that ECT trial is warranted; no benefit from Latuda thus far and although was only at 20 mg, agree to start Vraylar instead which maybe a little more robust in dealing with AH. Patient amenable to changing medications. [place]? only one kidney so hesitant. Also considerations are OCD/JAMIE Hospital course: 01/24 acute abdominal pain on right side, discussed with hospitalist. 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 Point tenderness with some rebound tenderness as well, but no guarding. Patient is only eating a little bit but continues drinking. Also 1 bowel movement a week ago which was small and otherwise only 1 very small 1 today. -vitals WNL and afebrile -no history of appendectomy; denies any history of cholecystectomy -will order CBC and monitor progress; patient will report to staff if pain worsens -will also treat for constipation 01/29with bothersome AH. Patient can not say why she initially said otherwise. Patient said that voices are telling her throughout the day to hit... Hit her referring to female peers. Patient said voice repeats this over and over so she went got headphones to drown it out. She has no plans intentions or urges to hit anyone. Patient asked about clozapine; discussed medication management options and for now She agrees to increasing Vraylar and to going forward with ECT. -Pain in abdomen remains but is less;WBC WNL; remains Afebrile and thus low concern for appendicitis will continue treating for constipation / post ECT, patient quiet, with headache; otherwise said procedure was fine and no problems; wants to continue; remains depressed with AH PLAN: CV q15 min DC Latuda Increase to Vraylar to 4.5 mg daily ECT #2 pending 02/01 -NPO -hold bedtime Gabapentin -continue Topimax 100mg qhs (discussed with Dr. Flores who reports patient had a good seizure; although Topamax started to help with weight gain from medication side effect, it may also be helping with mood to some degree so will leave for now Numerous failed Med trials: Haldol: got tremor abilify: wt gain risperidone Geodon Cymbalta, Effexor, Lexapro, Pristiq mirtazapine lamictal Medical problems: Orthostatic hypotension Pt with continued, lightheadedness and dizziness, ongoing for many years Continue midodrine CTA showing possible with thinning of semicircular canals bilaterally with question of dehiscence ED contacted ENT who said is likely transient No additional workup or treatment necessary at this time Can follow up outpatient with ENT Thyroid nodule CTA found 1.9 cm left thyroid nodule Outpatient follow-up with thyroid ultrasound Constipation Reports last bowel movement 5 days ago Will give lactulose 30 mg p.o. x1 dose Continue current bowel regimen Patient educated on: diagnosis, medication risk/benefits, ECT and medical condition Informed Consent: understands Reason for continued inpatient stay Substantial Risk for: inability to function Time Spent With Patient Time: Total time managing care of this patient today ____ minutes.
[2024-01-31] MEDS: Aspirin Enteric Coated 325 MG TABLET.DR PO (17:58)
[2024-01-31] MEDS: Sodium Phosphate,Mono-Dibasic 133 ML ENEMA PR (18:00)
[2024-01-31] MEDS: bisacodyL 5 MG TABLET.DR 10 MG PO (21:46)
[2024-01-31] MEDS: Mirtazapine 15 MG TABLET PO (21:46)
[2024-01-31] MEDS: diphenhydrAMINE HCL 25 MG CAPSULE 50 MG PO (21:46)
[2024-01-31] MEDS: hydrOXYzine HCL 25 MG TABLET PO (21:54)
[2024-01-31] MEDS: ROSUVASTATIN 5 MG 5 EACH PO (21:59)
[2024-02-01] VITALS (7 sets, daily range): BP systolic 106–145; BP diastolic 64–71; PULSE 53–62; RESP 18–21; TEMP 36.4–36.9; O2SAT 97–100; BMI 28.0
--- NOTE | 2024-02-01 07:46 | ECG_ITS ---
Test Reason : Chest Pain Blood Pressure : / mmHG Vent. Rate : 050 BPM Atrial Rate : 050 BPM P-R Int : 142 ms QRS Dur : 078 ms QT Int : 478 ms P-R-T Axes : 044 056 061 degrees QTc Int : 435 ms Sinus bradycardia Otherwise normal ECG When compared with ECG of 22-JAN-2024 09:02, No significant change was found Referred By: Roby Flores Electronically Signed By:TRISTAN NAM
--- NOTE | 2024-02-01 07:53 | PC.NURSE ---
@ 0725 pt reports chest pain, back pain, and left shoulder pain. Upon further assessment pt having pain with inspiration and feels that the left side of face is sore and drooping. Pt also indicates hip pain. BP 112/64, HR 53, RR 20, temp 98.4 temporal. Pt denies Nausea, vomiting, dizziness, weakness, SOB. Provider contacted via [place] text, EKG and chest CT ordered over phone due to provider driving. Hospitalist aware.
--- NOTE | 2024-02-01 09:10 | P.PNPSI_ITS ---
Subjective Subjective Date of Service: 02/01/24 Reason For Visit: depression Interim History: Met with patient; discussed with team Reports continued depression, anxiety and AH which she says is a little worse today. That said, patient seems more relaxed, is smiling more and engaged more, going to groups, talking more spontaneously; no other complaints Mental Status Exam Mental Status Exam Narrative: Pt is alert and oriented; behavior is cooperative, calm, more engaged; patient is not in distress; dressed in casual attire with adequate grooming; mood is described as Depressed... More anxious though affect seems a little brighter and more relaxed; eye contact improved; Speech remains soft volume, slowed rate but is more spontaneous; normal prosody; psychomotor retardation present; thought process is goal oriented; Thought content is on symptoms, tx; otherwise pertinent to relevant topics and without any delusional content, paranoid ideations or grandiosity; no SI; no HI; patient intermittently internally preoccupied; she reports continued AH which is very problematic. Patients insight and judgment impaired Diagnostics Vital Signs (24Hr): Vital Signs - 24 hr 01/31/24 09:22 01/31/24 13:28 01/31/24 18:00 Temperature 97.5 F Pulse Rate 57 66 Respiratory Rate 18 Blood Pressure 129/59 L 102/52 L 100/61 Pulse Oximetry 97 Oxygen Delivery Method 01/31/24 21:15 02/01/24 00:31 02/01/24 07:25 Temperature 97.7 F 98.4 F Pulse Rate 57 53 Respiratory Rate 18 18 20 Blood Pressure 107/63 112/64 Pulse Oximetry 98 99 Oxygen Delivery Method Room Air Room Air BMI result Body Mass Index 27.8 Labs 02/01/24 13:18 02/01/24 13:18 Imaging Radiology Impressions: ITS Impressions Head/Neck CTA 01/22/24 12:43 IMPRESSION: -No acute intracranial hemorrhage or edematous infarct. -No hemodynamically significant stenosis in the major arteries of the neck or intracranial circulation. -Incidentally noted thinning of the superior semicircular canals bilaterally, worse on the right with suggestion of dehiscence. If there is concern for semicircular canal dehiscence, recommend further characterization with dedicated CT of the temporal bones. -A 1.9 cm hypoattenuating nodule in the left thyroid lobe. Based on the recommendations of the ACR Incidental Thyroid Findings Committee (JACR 2015 Jun; 12(2):143-50), further evaluation by thyroid ultrasound is recommended for solitary incidental thyroid nodules greater than or equal to 1.5 cm in largest axial dimension in patients age 35 years and older who do not have limited life expectancy or significant morbidities, unless clinically warranted. Electronically signed by: Luis Armando Smith MD 01/22/2024 02:45 PM EDT RP Abdomen/Pelvis CT 01/25/24 18:13 IMPRESSION: Fluid throughout distal small bowel as well as the ascending and transverse colon, suggesting an element of hypersecretion. Small to moderate amount of stool within the descending and sigmoid colon. Postsurgical changes as above. Additional findings as above. Electronically signed by: Shravan Slaughter MD 01/26/2024 07:38 AM EDT RP Medications Medications Current Medications Al Hydroxide/Mg Hydroxide (Magnesium Hydrox/Alum Hydrox 30 Ml Oral.Susp) 30 ml PO Q6H PRN PRN Reason: Heartburn/Nausea Last Admin: 01/25/24 09:02 Dose: 30 ml Albuterol Sulfate (Albuterol Sulfate 90 Mcg 8 Gm Inhaler) 2 puff INHALE Q6H PRN PRN Reason: Shortness of Breath/Wheezing Bisacodyl (Bisacodyl 5 Mg Tablet.) 10 mg PO BEDTIME [facility] Last Admin: 01/31/24 21:46 Dose: 10 mg Cariprazine (Cariprazine Hcl 1.5 Mg Capsule) 4.5 mg PO DAILY [facility] Last Admin: 01/31/24 09:39 Dose: 4.5 mg Cyanocobalamin (Cyanocobalamin (Vitamin B-12) 500 Mcg Tablet) 500 mcg PO DAILY [facility] Last Admin: 01/31/24 09:39 Dose: 500 mcg Diphenhydramine HCl (Diphenhydramine Hcl 25 Mg Capsule) 50 mg PO BEDTIME [facility] Last Admin: 01/31/24 21:46 Dose: 50 mg Docusate Sodium (Docusate Sodium 100 Mg Capsule) 100 mg PO DAILY [facility] Last Admin: 01/31/24 09:38 Dose: 100 mg Ferrous Sulfate (Ferrous Sulfate 324 Mg Tablet.) 324 mg PO DAILY [facility] Last Admin: 01/31/24 09:38 Dose: 324 mg Gabapentin (Gabapentin 400 Mg Capsule) 800 mg PO TID [facility] Last Admin: 01/31/24 21:46 Dose: 800 mg Hydroxyzine HCl (Hydroxyzine Hcl 25 Mg Tablet) 25 mg PO Q6H PRN PRN Reason: Anxiety Last Admin: 01/31/24 21:54 Dose: 25 mg Ibuprofen (Ibuprofen 400 Mg Tablet) 400 mg PO Q6H PRN PRN Reason: Pain, Moderate(Pain Scale 4-6) Last Admin: 01/31/24 10:51 Dose: 400 mg Magnesium Hydroxide (Milk Of Magnesia 30 Ml Oral.Susp) 30 ml PO DAILY PRN PRN Reason: Constipation Last Admin: 01/27/24 21:39 Dose: 30 ml Meclizine HCl (Meclizine Hcl 25 Mg Tablet) 25 mg PO TID PRN PRN Reason: dizziness Last Admin: 01/27/24 16:18 Dose: 25 mg Melatonin (Melatonin 3 Mg Tablet) 9 mg PO BEDTIME PRN PRN Reason: Insomnia Last Admin: 01/30/24 21:07 Dose: 9 mg Midodrine (Midodrine Hcl 10 Mg Tablet) 10 mg PO TID@0800,1300,1800 [facility] Last Admin: 01/31/24 17:58 Dose: 10 mg Mirtazapine (Mirtazapine 15 Mg Tablet) 15 mg PO BEDTIME [facility] Last Admin: 01/31/24 21:46 Dose: 15 mg Naloxone HCl (Naloxone Hcl 0.4 Mg/Ml Vial) 0.04 mg IVPUSH Q5M PRN PRN Reason: Excessive sedation or RR < 8 Nicotine (Nicotine 21 Mg Patch.Td24) 21 mg TRANSDERMA DAILY PRN PRN Reason: smoking cessation Nicotine Polacrilex (Nicotine Polacrilex 2 Mg Gum) 4 mg BUCCAL Q2H PRN PRN Reason: Nicotine Cravings Nitrofurantoin Macrocrystals (Nitrofurantoin Monohyd/M-Cryst 100 Mg Capsule) 100 mg PO BID [facility] Last Admin: 01/31/24 21:46 Dose: 100 mg Pt Own (Rosuvastatin (5 Mg Tablet)) 5 mg PO BEDTIME [facility] Last Admin: 01/31/24 21:59 Dose: 5 mg Ondansetron HCl (Ondansetron Odt 4 Mg Tab.Rapdis) 4 mg TRANSLINGU Q8H PRN PRN Reason: Nausea and Vomiting Last Admin: 01/25/24 13:00 Dose: 4 mg Polyethylene Glycol (Polyethylene Glycol 3350 17 Gm Powd.Pack) 17 gm PO DAILY [facility] Last Admin: 01/31/24 09:44 Dose: Not Given Polyethylene Glycol (Polyethylene Glycol 3350 17 Gm Powd.Pack) 17 gm PO QID [facility] Last Admin: 01/31/24 22:25 Dose: Not Given Sodium Biphosphate/Sodium Phosphate (Sodium Phosphate,Dewey-Dibasic 133 Ml Enema) 133 ml LA ONCE PRN PRN Reason: continued constipation Last Admin: 01/31/24 18:00 Dose: 133 ml Sodium Biphosphate/Sodium Phosphate (Sodium Phosphate,Dewey-Dibasic 133 Ml Enema) 133 ml LA ONCE PRN PRN Reason: continued constipation Sodium Biphosphate/Sodium Phosphate (Sodium Phosphate,Dewey-Dibasic 133 Ml Enema) 133 ml LA DAILY PRN PRN Reason: continued constipation Topiramate (Topiramate 25 Mg Tablet) 100 mg PO DAILY [facility] Last Admin: 01/31/24 10:50 Dose: 100 mg Trazodone HCl (Trazodone Hcl 50 Mg Tablet) 50 mg PO BEDTIME MRX1 PRN PRN Reason: Insomnia Last Admin: 01/31/24 03:11 Dose: 50 mg Vitamin D (Cholecalciferol (Vitamin D3) 25 Mcg Tablet) 25 mcg PO DAILY [facility] Last Admin: 01/31/24 09:38 Dose: 25 mcg Allergies Allergies Allergy/AdvReac Type Severity Reaction Status Date / Time acetaminophen AdvReac Unknown Unknown Verified 01/22/24 09:01 atorvastatin AdvReac Severe elevated Uncoded 01/22/24 09:01 liver enzymes Assessment & Plan Assessment & Plan (1) MDD (major depressive disorder), recurrent, severe, with psychosis: Status: Acute Code(s): F33.3 - Major depressive disorder, recurrent, severe with psychotic symptoms (2) PTSD (post-traumatic stress disorder): Status: Acute Code(s): F43.10 - Post-traumatic stress disorder, unspecified Plan Patient is a 53-year-old female with history of MDD with psychotic features (r/o schizoaffective disorder, depressed type) PTSD, borderline traits, kidney cancer (one kidney) who presents for worsening depression and AH. Patient reports that she was feeling overall good enough until about 4 months ago. Without any obvious trigger, and despite continued adherence to medication regimen, she reports that her mood started to decline and AH (which is present independent of mood) became worse. Patient said she started having bad thoughts.. At which she became tearful and would not disclose them. She said her mood got worse and worse and voices told her to hurt herself; she started seeing shadow figures and having horrific nightmares where sometimes she can tell if she was awake or asleep but saw a ball of fire and things burning. AH worsened this past week and so patient self presented. She denies any history of manic type behaviors; ongoing PTSD symptoms. Patient does not remember history of med trials Formulaton/clinical reasoning: Plaque Maker discussed case with patient's outpatient psychiatric provider Dr. Kathleen who has known patient for years. She reports that Patient has long history of depression, frequently severe, intermixed with PTSD symptoms, emotional reactivity; although patient endorses continue AH, Dr. Kathleen does not think necessarily an organic psychotic illness and only symptom is AH (no history of delusional thinking, no disorganized speech or behavior). Pt has had numerous medication trials with only partial response. Discussed treatment approaches and provider agrees that ECT trial is warranted; no benefit from Latuda thus far and although was only at 20 mg, agree to start Vraylar instead which maybe a little more robust in dealing with AH. Patient amenable to changing medications. [place]? only one kidney so hesitant. Also considerations are OCD/JAMIE Hospital course: 01/24 acute abdominal pain on right side, discussed with hospitalist. ordered CT abdomen/pelvic 01/25 patient had bowel movement however still some right-sided abdominal pain; television writer ordered labs and discussed with hospitalist CJ who said they would follow-up -elevated LFTs/GGT -agrees with increasing Vraylar and undergoing ECT; consent signed 01/28 Patient reporting right lower quadrant abdominal pain which she said started about 2 days ago and has been Ebbing and flowing but increasing in pain which is an /. Point tenderness with some rebound tenderness as well, but no guarding. Patient is only eating a little bit but continues drinking. Also 1 bowel movement a week ago which was small and otherwise only 1 very small 1 today. -vitals WNL and afebrile -no history of appendectomy; denies any history of cholecystectomy -will order CBC and monitor progress; patient will report to staff if pain worsens -will also treat for constipation 01/29with bothersome AH. Patient can not say why she initially said otherwise. Patient said that voices are telling her throughout the day to hit... Hit her referring to female peers. Patient said voice repeats this over and over so she went got headphones to drown it out. She has no plans intentions or urges to hit anyone. Patient asked about clozapine; discussed medication management options and for now She agrees to increasing Vraylar and to going forward with ECT. -Pain in abdomen remains but is less;WBC WNL; remains Afebrile and thus low concern for appendicitis will continue treating for constipation 01/30 post ECT, patient quiet, with headache; otherwise said procedure was fine and no problems; wants to continue; remains depressed with AH 01/31 Reports continued depression, anxiety and AH which she says is a little worse today. That said, patient seems more relaxed, is smiling more and engaged more, going to groups, talking more spontaneously; no other complaints. Discussed ECT and patient wants to continue. -continue current treatment plan PLAN: CV q15 min DC Latuda Increase to Vraylar to 4.5 mg daily ECT #2 pending 02/01 -NPO -hold bedtime Gabapentin -continue Topimax 100mg qhs (discussed with Dr. Flores who reports patient had a good seizure; although Topamax started to help with weight gain from medication side effect, it may also be helping with mood to some degree so will leave for now Numerous failed Med trials: Haldol: got tremor abilify: wt gain risperidone Geodon Cymbalta, Effexor, Lexapro, Pristiq mirtazapine lamictal Medical problems: Orthostatic hypotension Pt with continued, lightheadedness and dizziness, ongoing for many years Continue midodrine CTA showing possible with thinning of semicircular canals bilaterally with question of dehiscence ED contacted ENT who said is likely transient No additional workup or treatment necessary at this time Can follow up outpatient with ENT Thyroid nodule CTA found 1.9 cm left thyroid nodule Outpatient follow-up with thyroid ultrasound Constipation Reports last bowel movement 5 days ago Will give lactulose 30 mg p.o. x1 dose Continue current bowel regimen Patient educated on: diagnosis, medication risk/benefits and ECT Informed Consent: understands Reason for continued inpatient stay Substantial Risk for: inability to function Time Spent With Patient Time: Total time managing care of this patient today ____ minutes.
[2024-02-01] MEDS: Gabapentin 400 MG CAPSULE 800 MG PO ×2 (09:42→14:23)
[2024-02-01] MEDS: polyethylene glycoL 3350 17 GM POWD.PACK PO (09:42)
[2024-02-01] MEDS: Ferrous Sulfate 324 MG TABLET.DR PO (09:42)
[2024-02-01] MEDS: Nitrofurantoin Monohyd/M-Cryst 100 MG CAPSULE PO (09:42)
[2024-02-01] MEDS: Topiramate 25 MG TABLET 100 MG PO (09:42)
[2024-02-01] MEDS: Ondansetron ODT 4 MG TAB.RAPDIS TRANSLINGU (09:42)
[2024-02-01] MEDS: Cariprazine HCl 1.5 MG CAPSULE 4.5 MG PO (09:42)
[2024-02-01] MEDS: Cholecalciferol (Vitamin D3) 25 MCG TABLET PO (09:43)
[2024-02-01] MEDS: Midodrine HCl 10 MG TABLET PO ×3 (09:43→20:45)
[2024-02-01] MEDS: Cyanocobalamin (Vitamin B-12) 500 MCG TABLET PO (09:44)
--- NOTE | 2024-02-01 10:24 | P.PNIM_ITS ---
Subjective Subjective Date of Service: 02/01/24 Interval History: 53 yo F with a pmhx of asthma, HLD, orthostatic hypotension, IBS, GERD, migraines, hx of nephrectomy, hx of gastric bypass, hx hernia repair, anxiety, depression, and schizophrenia who was [facility] for increasing depression and SI c/o pleuritic chest pain starting last night. had her first ECT yesterday. pain travels to her shoulders and low back. tightness, worse with inspiration. slightly cough and nasal congestion. night sweats last night. has a hx of asthma and has not tried her albuterol inhaler, but this does not feel similar to previous asthma attacks. also pain with palpation of the chest. no constipation, diarrhea, nausea, vomiting or hx of seasonal allergies. Constitutional Constitutional: Reports body ache(s) and Reports night sweats Eyes Eyes: Denies change in vision ENT Ears, Nose, Mouth, and Throat: Reports nasal congestion and Reports sore throat Cardiovascular Cardiovascular: Reports chest pain and Reports dyspnea Respiratory Respiratory: Reports pain on inspiration, Reports pain with cough and Reports dyspnea Gastrointestinal Gastrointestinal: Denies constipation, Denies diarrhea, Denies nausea and Denies vomiting Genitourinary Genitourinary: Denies dysuria Musculoskeletal Musculoskeletal: Reports back pain Integumentary/Breasts Skin/Breast: Denies rash Physical Exam 2 Vital Signs: Vital Signs: Last Vital Signs Temp 97.8 F 02/01/24 08:50 Pulse 54 02/01/24 08:50 Resp 20 02/01/24 08:50 BP 106/69 02/01/24 08:50 Pulse Ox 99 02/01/24 08:50 O2 Del Method Room Air 02/01/24 08:50 O2 Flow Rate 35 01/31/24 08:55 BMI result Body Mass Index 27.8 General: AOx3, no acute distress Resp: CTA bilaterally, pain with inspiration CVS: S1, S2, RRR GI: +BS, NT, no distention Skin: Warm, dry Extremities: No edema Psych: Appropriate affect Objective Data Active Medications Al Hydroxide/Mg Hydroxide (Magnesium Hydrox/Alum Hydrox 30 Ml Oral.Susp) 30 ml PO Q6H PRN PRN Reason: Heartburn/Nausea Last Admin: 01/25/24 09:02 Dose: 30 ml Documented By: NICOLIM Albuterol Sulfate (Albuterol Sulfate 90 Mcg 8 Gm Inhaler) 2 puff INHALE Q6H PRN PRN Reason: Shortness of Breath/Wheezing Bisacodyl (Bisacodyl 5 Mg Tablet.) 10 mg PO BEDTIME [facility] Last Admin: 01/31/24 21:46 Dose: 10 mg Documented By: GISELLA Cariprazine (Cariprazine Hcl 1.5 Mg Capsule) 4.5 mg PO DAILY [facility] Last Admin: 02/01/24 09:42 Dose: 4.5 mg Documented By: FLORES Cyanocobalamin (Cyanocobalamin (Vitamin B-12) 500 Mcg Tablet) 500 mcg PO DAILY [facility] Last Admin: 02/01/24 09:44 Dose: 500 mcg Documented By: FLORES Diphenhydramine HCl (Diphenhydramine Hcl 25 Mg Capsule) 50 mg PO BEDTIME [facility] Last Admin: 01/31/24 21:46 Dose: 50 mg Documented By: GISELLA Docusate Sodium (Docusate Sodium 100 Mg Capsule) 100 mg PO DAILY [facility] Last Admin: 02/01/24 09:54 Dose: Not Given Documented By: FLORES Non-Admin Reason: Patient Refused Ferrous Sulfate (Ferrous Sulfate 324 Mg Tablet.) 324 mg PO DAILY [facility] Last Admin: 02/01/24 09:42 Dose: 324 mg Documented By: FLORES Gabapentin (Gabapentin 400 Mg Capsule) 800 mg PO TID [facility] Last Admin: 02/01/24 09:42 Dose: 800 mg Documented By: FLORES Hydroxyzine HCl (Hydroxyzine Hcl 25 Mg Tablet) 25 mg PO Q6H PRN PRN Reason: Anxiety Last Admin: 01/31/24 21:54 Dose: 25 mg Documented By: GISELLA Ibuprofen (Ibuprofen 400 Mg Tablet) 400 mg PO Q6H PRN PRN Reason: Pain, Moderate(Pain Scale 4-6) Last Admin: 01/31/24 10:51 Dose: 400 mg Documented By: TRACEY Magnesium Hydroxide (Milk Of Magnesia 30 Ml Oral.Susp) 30 ml PO DAILY PRN PRN Reason: Constipation Last Admin: 01/27/24 21:39 Dose: 30 ml Documented By: VALERI Meclizine HCl (Meclizine Hcl 25 Mg Tablet) 25 mg PO TID PRN PRN Reason: dizziness Last Admin: 01/27/24 16:18 Dose: 25 mg Documented By: RAVI Melatonin (Melatonin 3 Mg Tablet) 9 mg PO BEDTIME PRN PRN Reason: Insomnia Last Admin: 01/30/24 21:07 Dose: 9 mg Documented By: GISELLA Midodrine (Midodrine Hcl 10 Mg Tablet) 10 mg PO TID@0800,1300,1800 [facility] Last Admin: 02/01/24 09:43 Dose: 10 mg Documented By: FLORSE Mirtazapine (Mirtazapine 15 Mg Tablet) 15 mg PO BEDTIME [facility] Last Admin: 01/31/24 21:46 Dose: 15 mg Documented By: GISELLA Naloxone HCl (Naloxone Hcl 0.4 Mg/Ml Vial) 0.04 mg IVPUSH Q5M PRN PRN Reason: Excessive sedation or RR < 8 Nicotine (Nicotine 21 Mg Patch.Td24) 21 mg TRANSDERMA DAILY PRN PRN Reason: smoking cessation Nicotine Polacrilex (Nicotine Polacrilex 2 Mg Gum) 4 mg BUCCAL Q2H PRN PRN Reason: Nicotine Cravings Nitrofurantoin Macrocrystals (Nitrofurantoin Monohyd/M-Cryst 100 Mg Capsule) 100 mg PO BID [facility] Last Admin: 02/01/24 09:42 Dose: 100 mg Documented By: FLORES Pt Own (Rosuvastatin (5 Mg Tablet)) 5 mg PO BEDTIME [facility] Last Admin: 01/31/24 21:59 Dose: 5 mg Documented By: GISELLA Ondansetron HCl (Ondansetron Odt 4 Mg Tab.Rapdis) 4 mg TRANSLINGU Q8H PRN PRN Reason: Nausea and Vomiting Last Admin: 02/01/24 09:42 Dose: 4 mg Documented By: FLORES Polyethylene Glycol (Polyethylene Glycol 3350 17 Gm Powd.Pack) 17 gm PO DAILY [facility] Last Admin: 02/01/24 09:42 Dose: 17 gm Documented By: FLORES Polyethylene Glycol (Polyethylene Glycol 3350 17 Gm Powd.Pack) 17 gm PO QID [facility] Last Admin: 02/01/24 09:53 Dose: Not Given Documented By: FLORES Non-Admin Reason: Patient Refused Sodium Biphosphate/Sodium Phosphate (Sodium Phosphate,Yell-Dibasic 133 Ml Enema) 133 ml MO ONCE PRN PRN Reason: continued constipation Last Admin: 01/31/24 18:00 Dose: 133 ml Documented By: TRACEY Sodium Biphosphate/Sodium Phosphate (Sodium Phosphate,Yell-Dibasic 133 Ml Enema) 133 ml MO ONCE PRN PRN Reason: continued constipation Sodium Biphosphate/Sodium Phosphate (Sodium Phosphate,Yell-Dibasic 133 Ml Enema) 133 ml MO DAILY PRN PRN Reason: continued constipation Topiramate (Topiramate 25 Mg Tablet) 100 mg PO DAILY [facility] Last Admin: 02/01/24 09:42 Dose: 100 mg Documented By: FLORES Trazodone HCl (Trazodone Hcl 50 Mg Tablet) 50 mg PO BEDTIME MRX1 PRN PRN Reason: Insomnia Last Admin: 01/31/24 03:11 Dose: 50 mg Documented By: GISELLA Vitamin D (Cholecalciferol (Vitamin D3) 25 Mcg Tablet) 25 mcg PO DAILY [facility] Last Admin: 02/01/24 09:43 Dose: 25 mcg Documented By: FLORES Labs 01/29/24 17:11 01/26/24 10:[address] scan - chest: Radiologist's impression: Impressions Chest CT 02/01/24 08:51 IMPRESSION: 1. There is a 3.2 cm groundglass nodular density in the right middle lobe. 2. There is a 7.1 mm right lower lobe perifissural nodule which has increased in size when compared to the 01/25/2024 study. 3. Other incidental findings as described above. 6. A 6 months follow-up chest CT scan recommended to document the stability of the pulmonary nodules. This is what would be recommended if the patient was in a lung screening program. Fleischner guidelines were followed. Electronically signed by: Diego Oconnell MD 02/01/2024 11:30 AM EDT Assessment and Plan (1) Chest pain: Status: Acute (2) Cough: Status: Acute (3) Shortness of breath: Status: Acute Plan pleuritic chest pain starting last night with new mild cough and SOB. likely viral illness but further w/u to r/o GA, PE or electrolyte abnormality - hx of asthma - no wheezing on auscultation. encouraged pt to use PRN albuterol inhaler - EKG - sinus micheal, no acute infarction - ordered stat troponins, CMP, CBC, D dimer and respiratory panel - chest CT - 3.2 cm groundglass nodular density in the right middle lobe and 7.1 mm right lower lobe perifissural nodule which has increased in size when compared to the 01/25/2024 study. - not likely the cause for her pain. if pain persists and above w/u negative consider pulmonary consult. f/u CT in 6 months to assess stability. Quality Stroke Does the patient have a stroke diagnosis?: No VTE Prior VTE?: No VTE Risk Level:: Medical - low VTE Device Contraindication: Treatment Not Indicated VTE Drug Contraindication: Treatment Not Indicated
[2024-02-01] MEDS: hydrOXYzine HCL 25 MG TABLET PO (12:51)
[2024-02-01 13:27] LABS: MANUAL DIFF FLAG NO
[2024-02-01 13:38] LABS: Basophils Absolute Auto 0.1 X10*3/uL (0.0-0.2); Basophils Percent Auto 0.7 % (0-2); Eosinophils Absolute Auto 0.1 X10*3/uL (0.0-0.4); Hematocrit 42.1 % (37.0-47.0); Hemoglobin 13.7 g/dl (12.0-16.0); Imm Gran Abs Auto 0.03 X10*3/uL (0.00-0.03); Imm Gran Pct Auto 0.4 % (0.0-0.4); Lymphocytes Absolute Auto 1.9 X10*3/uL (1.2-4.9); Mean Corpuscular HGB Conc 32.5 g/dl (31.0-35.0); Mean Corpuscular Volume 104.5 fL (80.0-98.0); Mean Platelet Volume 9.7 fL (9.4-12.3); Monocytes Absolute Auto 0.6 X10*3/uL (0.1-1.2); Monocytes Percent Auto 6.8 % (2-11); Neutrophils Absolute Auto 5.4 x10*3/uL (2.0-8.3); Neutrophils Percent Auto 67.1 % (45-73); Platelet Count 281 X10*3/uL (160-400); Red Blood Count 4.03 X10*6/uL (4.20-5.50); White Blood Count 8.1 X10*3/uL (4.8-10.8)
[2024-02-01 13:39] LABS: D Dimer High Sensitivity 781 NG/ML
[2024-02-01 13:49] LABS: Alanine Aminotransferase 28 U/L (0-31); Albumin Level 3.9 g/dL (3.5-5.0); Alkaline Phosphatase 136 U/L (39-117); Anion Gap 11 (12-20); Aspartate Amino Transferase 20 U/L (5-31); Bilirubin Total 0.3 mg/dL (0.0-1.0); Blood Urea Nitrogen 17 mg/dL (9-16); Calcium 9.2 mg/dL (8.4-10.2); Carbon Dioxide 20 mmol/L (22-29); Chloride 117 mmol/L (96-108); Creatinine Clr Calc Pharmacy 56.4; Estimated Glomerular Filt Rate 53; Glucose Random 96 mg/dL (60-115); Potassium 3.9 mmol/L (3.3-5.1); Sodium 144 mmol/L (135-145); Total Protein 6.9 g/dL (6.5-8.0)
[2024-02-01 13:59] LABS: Troponin-I High Sensitivity < 2.7 ng/L (<3.5-17.0)
--- NOTE | 2024-02-01 14:15 | PM.EVENT ---
Event Note Date of Service: 02/01/24 Event Note: CC/HPI : 53 yo F with pleuritic chest pain back pain and left shoulder pain starting last night. Had ECT yesterday. Describes chest tightness worse with inspiration and coughing. Very mild cough. Bilateral shoulder pain and pain with palpation. Also low back pain. Complains of night sweats last night. Also feels congested. No history of previous symptoms but does have history of asthma and feels this is different. Has not used her albuterol yet. Denies any diarrhea nausea or constipation. Denies a history of seasonal allergies. Exam: General: AOx3, no acute distress Resp: CTA bilaterally, could not take deep breaths without pain CVS: S1, S2, RRR GI: +BS, NT, no distention Skin: Warm, dry Extremities: No edema Psych: Appropriate affect A/P: Likely viral illness. Consider asthma exacerbation, [place], PE, electrolyte abnormality. Pleuritic chest pain - EKG sinus bradycardia - chest CT negative aside from pulmonary nodules. No acute processes. Recommend follow-up CT in 6 months to assure stability of nodules. - troponin negative, CMP ok - D-dimer elevated - respiratory panel pending - encouraged patient to use albuterol inhaler as needed - CT angiography to rule out PE Time Spent With Patient Time: Total time managing care of this patient today ____ minutes.
[2024-02-01 15:34] LABS: Adenovirus PCR Not Detected (Not Detect.); Bordetella parapertussis PCR Not Detected (Not Detect.); Bordetella pertussis PCR Not Detected (Not Detect.); Chlamydia pneumoniae PCR Not Detected (Not Detect.); Coronavirus 229E PCR Not Detected (Not Detect.); Coronavirus HKU1 PCR Not Detected (Not Detect.); Coronavirus NL63 PCR Not Detected (Not Detect.); Coronavirus OC43 PCR Not Detected (Not Detect.); Human metapneumovirus PCR Not Detected (Not Detect.); Influenza A PCR Not Detected (Not Detect.); Influenza B PCR Not Detected (Not Detect.); Mycoplasma pneumoniae PCR Not Detected (Not Detect.); Parainfluenza 1 PCR Not Detected (Not Detect.); Parainfluenza 2 PCR Not Detected (Not Detect.); Parainfluenza 3 PCR Not Detected (Not Detect.); Parainfluenza 4 PCR Not Detected (Not Detect.); RSV PCR Not Detected (Not Detect.); Rhino/Enterovirus PCR Not Detected (Not Detect.)
[2024-02-01 16:01] LABS: SARS-CoV-2 PCR Not Detected (Not Detect.)
[2024-02-01] MEDS: iohexoL 350 MG/ML 100 ML INFUS..BTL IV (18:47)
[2024-02-01] MEDS: Melatonin 3 MG TABLET 9 MG PO (20:43)
[2024-02-01] MEDS: bisacodyL 5 MG TABLET.DR 10 MG PO (20:43)
[2024-02-01] MEDS: Ibuprofen 400 MG TABLET PO (20:44)
[2024-02-01] MEDS: ROSUVASTATIN 5 MG 5 EACH PO (20:44)
[2024-02-01] MEDS: Mirtazapine 15 MG TABLET PO (20:44)
[2024-02-01] MEDS: diphenhydrAMINE HCL 25 MG CAPSULE 50 MG PO (20:47)
[2024-02-01] MEDS: traZODone HCL 50 MG TABLET PO (20:47)
[2024-02-01] MEDS: Enoxaparin Sodium 80 MG/0.8 ML SYRINGE 70 MG SUBCUT (21:22)
--- NOTE | 2024-02-01 21:32 | PM.EVENT ---
Event Note Date of Service: 02/01/24 Event Note: 8:25 PM - contacted by radiologist to report patient's chest CTA is positive for PE. I evaluated patient and informed her about the results. She undertands and agrees with plan. She is still having some pleuritic mid-chest pain and has dypsnea w/ exertion. VS are stable (normal O2 sat on RA). It seems PE is unprovoked. We will start tx with Lovenox 70 mg SC bid and will need to be transitioned to PO anticoagulation. She was adviced to avoid NSAIDs such ibuprofen (motrin), naproxen while taking anticoagulation as this will increase her risk of bleeding. We will also obtain TTE in am. Time Spent With Patient Time: Total time managing care of this patient today ____ minutes.
[2024-02-01] MEDS: oxyCODONE HCl Immed Release 5 MG TABLET PO (23:06)
[2024-02-02] VITALS (7 sets, daily range): BP systolic 87–126; BP diastolic 50–74; PULSE 57–70; RESP 16–18; TEMP 36.4; O2SAT 96–98; BMI 28.0
[2024-02-02] MEDS: traZODone HCL 50 MG TABLET PO (02:05)
[2024-02-02] MEDS: oxyCODONE HCl Immed Release 5 MG TABLET PO ×5 (02:05→22:18)
--- NOTE | 2024-02-02 07:00 | CA_ITS ---
Transthoracic Echocardiogram Patient (Last, First, Middle): Xenia Graves E Gender: Female Date of : 1970 Age: 53 Procedure Date: 02/02/2024 Procedure Type: Transthoracic Echocardiogram Location: [address] UN[address] Height: 160.02 cm Weight: 71.67 kg BSA: 1.75 m2 Heart Rate: bpm BP: 87 / 50 mmHg Referring MD: Reese Arceo MD Symptoms: R main pulmonary artery PE Study Quality: Adequate ECG Rhythm: Sinus Conclusions: - Normal left ventricular cavity size. There is mildly increased left ventricular wall thickness. The left ventricular systolic function is hyperdynamic. The visually estimated ejection fraction is >70%. There is no evidence of regional wall motion abnormalities. Diastolic function is normal for age. - Mildly increased right ventricular cavity size. There is normal right ventricular systolic function. - Normal right atrial pressure. There is no evidence of pulmonary hypertension. Findings Left Ventricle Normal left ventricular cavity size. There is mildly increased left ventricular wall thickness. The left ventricular systolic function is hyperdynamic. The visually estimated ejection fraction is >70%. There is no evidence of regional wall motion abnormalities. Diastolic function is normal for age. Right Ventricle Mildly increased right ventricular cavity size. There is normal right ventricular systolic function. Atria The left atrium is normal in size. The right atrium is normal in size. Aortic Valve Normal aortic valve structure and function. There is no aortic valve stenosis. There is no aortic valve regurgitation. Mitral Valve Normal mitral valve structure and function. There is no mitral valve regurgitation. There is no mitral valve stenosis. Pulmonic Valve The pulmonic valve is likely normal. Tricuspid Valve Normal tricuspid valve structure. There is trace tricuspid valve regurgitation. The right ventricular systolic pressure is 32 mmHg. Normal right atrial pressure. There is no evidence of pulmonary hypertension. Great Vessels All visible segments of the aorta are normal in size. Venous The inferior vena cava is normal in size and collapses greater than 50% with inspiration. Pericardium/Pleural There is no evidence of pericardial effusion. Measurements 2D Linear Measurements IVSd: 1.05 0.6-0.9/0.6-1.0 cm LVIDd: 4.53 3.9-5.3/4.2-5.9 cm LVIDd Index: 2.59 2.4-3.2/2.2-3.1 cm/m2 LVIDs: 2.87 2.0-3.6 cm LVPWd: 1.04 0.7-1.1 cm Ao Root: 2.90 2.1-3.5 cm LA Diam: 3.70 2.7-3.8/3.0-4.0 cm LAIDs Index: 2.11 1.5-2.3 cm/m2 LV Mass: 205.04 67-162/88-224 g LV Mass Index: 117.17 43-95/49-115 g/m2 LVOT Diam: 1.90 3.0+(-)1.3 cm 2D Systolic Function EF 4C: 58.30 >55% EF 2C: 74.60 >55% EF BiP: 64.90 >55% Mitral Valve MV Pk E: 0.76 MV PK A: 0.60 MV Decel Time: 344.00 E/A: 1.30 E'Lateral: 12.30 E'Medial: 8.49 E/E' Med: 9.00 E/E' Lat: 6.20 PHT: 101.00 MVA PHT: 2.18 Decel [place]: 2.22 Aortic Valve AoV Pk Oscar: 1.41 AoV Mn Oscar: 0.91 AoV VTI: 0.35 AoV Pk Grad: 8.00 Aov Mn Grad: 4.00 DREW Cont.VTI: 2.05 LVOT LVOT Pk Oscar: 1.07 LVOT Mn Oscar: 0.67 LVOT VTI: 0.25 LVOT Pk Grad: 5.00 LVOT Mn Grad: 2.00 LVOT Diam: 1.90 LVOT Area: 2.84 Diastolic Function MV Pk E: 0.76 MV Pk A: 0.60 E/A: 1.30 E'Medial: 8.49 E/E' Med: 9.00 E' Laterial: 12.30 E/E' Lat: 6.20 Right Ventricle TAPSE (mm): 27.00 Tricuspid Valve TR Pk Oscar: 2.66 TR Pk Grad: 28.00 RA Press: 3.00 RVSP: 32.00 Great Vessels Aorta Ao Root-2D: 2.90 2.0-3.7 cm Ao Asc: 2.90 2.1-3.4 cm Pulmonary Valve PV Pk Oscar: 0.82 Peak PV Grad: 3.00 Updated in Other Vendor System with Status of Final Renny Rothman MD electronically signed on 02/02/2024 3:46:28 PM with status of Final
--- NOTE | 2024-02-02 08:48 | HO.PSYCHPN ---
Subjective Subjective Date of Service: 02/02/24 Reason For Visit: depression Interim History: Met with patient; discussed with team; discussed with hospitalist and ECT team remains depressed with AH; says continued CP last night pt c/o pleuritic chest pain back pain and left shoulder pain starting last night. Had ECT yesterday. Describes chest tightness worse with inspiration and coughing. Very mild cough. Bilateral shoulder pain and pain with palpation. Also low back pain. Complains of night sweats last night. Also feels congested. No history of previous symptoms but does have history of asthma and feels this is different. Has not used her albuterol yet. Denies any diarrhea nausea or constipation. Denies a history of seasonal allergies. patient's chest CTA is positive for PE. I evaluated patient and informed her about the results. She undertands and agrees with plan. She is still having some pleuritic mid-chest pain and has dypsnea w/ exertion. VS are stable (normal O2 sat on RA). It seems PE is unprovoked. We will start tx with Lovenox 70 mg SC bid and will need to be transitioned to PO anticoagulation. She was adviced to avoid NSAIDs such ibuprofen (motrin), naproxen while taking anticoagulation as this will increase her risk of bleeding. We will also obtain TTE in am. Mental Status Exam Mental Status Exam Narrative: Pt is alert and oriented; behavior is cooperative, calm, more engaged; patient is not in distress; dressed in casual attire with adequate grooming; mood is described as Depressed... More anxious though affect seems a little brighter and more relaxed; eye contact improved; Speech remains soft volume, slowed rate but is more spontaneous; normal prosody; psychomotor retardation present; thought process is goal oriented; Thought content is on symptoms, tx; otherwise pertinent to relevant topics and without any delusional content, paranoid ideations or grandiosity; no SI; no HI; patient intermittently internally preoccupied; she reports continued AH which is very problematic. Patients insight and judgment impaired Diagnostics Vital Signs (24Hr): Vital Signs - 24 hr 02/01/24 08:50 02/01/24 14:00 02/01/24 20:00 Temperature 97.8 F 97.8 F Pulse Rate 54 60 Respiratory Rate 20 Blood Pressure 106/69 108/66 145/71 H Pulse Oximetry 99 100 Oxygen Delivery Method Room Air 10/03/24 20:45 02/01/24 20:45 02/01/24 23:50 Temperature 97.5 F Pulse Rate 62 Respiratory Rate 21 H Blood Pressure 129/71 129/71 Pulse Oximetry 98 Oxygen Delivery Method Room Air 02/02/24 01:45 02/02/24 02:50 Temperature 97.6 F 97.6 F Pulse Rate 58 59 Respiratory Rate Blood Pressure 115/71 87/50 L Pulse Oximetry 98 98 Oxygen Delivery Method Room Air Room Air BMI result Body Mass Index 28.0 Labs 02/01/24 13:18 02/01/24 13:18 Labs: Laboratory Results - last 48 hr 02/01/24 02/01/24 13:18 Unknown WBC 8.1 RBC 4.03 L Hgb 13.7 Hct 42.1 MCV 104.5 H MCH 34.0 H MCHC 32.5 RDW 12.0 Plt Count 281 MPV 9.7 Immature Gran % (Auto) 0.4 Neut % (Auto) 67.1 Lymph % (Auto) 24.0 [place] % (Auto) 6.8 Eos % (Auto) 1.0 Baso % (Auto) 0.7 Lymph # (Auto) 1.9 [place] # (Auto) 0.6 Eos # (Auto) 0.1 Baso # (Auto) 0.1 Abs Immat Gran (auto) 0.03 Absolute Neuts (auto) 5.4 Absolute Nucleated RBC 0.000 Nucleated RBC % (auto) 0.0 D-Dimer High Sensitivty 781 Sodium 144 Potassium 3.9 Chloride 117 H Carbon Dioxide 20 L Anion Gap 11 L BUN 17 H Creatinine 1.08 Estim Creat Clear Calc 56.4 Estimated GFR 53 Random Glucose 96 Calcium 9.2 Total Bilirubin 0.3 AST 20 ALT 28 Alkaline Phosphatase 136 H Troponin I High Sens < 2.7 Total Protein 6.9 Albumin 3.9 Respiratory Panel [place] See Note Adenovirus (Rapid PCR) Not Detected B.pert (TEM-PCR) Not Detected B.parapertussis DNA PCR Not Detected C. pneumoniae DNA (PCR) Not Detected Coronavirus OC43 (PCR) Not Detected Coronavirus HKU1 (PCR) Not Detected Coronavirus 229E (PCR) Not Detected Coronavirus NL63 (PCR) Not Detected Human Metapneumovir PCR Not Detected Influenza A (RT-PCR) Not Detected Influenza B (RT-PCR) Not Detected M. pneumoniae (PCR) Not Detected Parainfluenza 1 (PCR) Not Detected Parainfluenza 2 (PCR) Not Detected Parainfluenza 3 (PCR) Not Detected Parainfluenza 4 (PCR) Not Detected RSV (PCR) Not Detected Entero/Rhino (PCR) Not Detected SARS-CoV-2 RNA (RT-PCR) Not Detected Imaging Radiology Impressions: ITS Impressions Head/Neck CTA 01/22/24 12:43 IMPRESSION: -No acute intracranial hemorrhage or edematous infarct. -No hemodynamically significant stenosis in the major arteries of the neck or intracranial circulation. -Incidentally noted thinning of the superior semicircular canals bilaterally, worse on the right with suggestion of dehiscence. If there is concern for semicircular canal dehiscence, recommend further characterization with dedicated CT of the temporal bones. -A 1.9 cm hypoattenuating nodule in the left thyroid lobe. Based on the recommendations of the ACR Incidental Thyroid Findings Committee (JACR 2014; 12(2):143-50), further evaluation by thyroid ultrasound is recommended for solitary incidental thyroid nodules greater than or equal to 1.5 cm in largest axial dimension in patients age 35 years and older who do not have limited life expectancy or significant morbidities, unless clinically warranted. Electronically signed by: Luis Armando Smith MD 01/22/2024 02:45 PM EDT RP Abdomen/Pelvis CT 01/25/24 18:13 IMPRESSION: Fluid throughout distal small bowel as well as the ascending and transverse colon, suggesting an element of hypersecretion. Small to moderate amount of stool within the descending and sigmoid colon. Postsurgical changes as above. Additional findings as above. Electronically signed by: Shravan Slaughter MD 01/26/2024 07:38 AM EDT RP Chest CT 02/01/24 08:51 IMPRESSION: 1. There is a 3.2 cm groundglass nodular density in the right middle lobe. 2. There is a 7.1 mm right lower lobe perifissural nodule which has increased in size when compared to the 01/25/2024 study. 3. Other incidental findings as described above. 6. A 6 months follow-up chest CT scan recommended to document the stability of the pulmonary nodules. This is what would be recommended if the patient was in a lung screening program. Fleischner guidelines were followed. Electronically signed by: Diego Oconnell MD 02/01/2024 11:30 AM EDT RP Chest CTA 02/01/24 18:34 IMPRESSION: 1. Pulmonary emboli in the right main pulmonary artery and segmental branches of the right lower lobe. 2. Mild reflux of contrast into the hepatic veins that could indicate elevated right-sided heart pressures. 3. Increased mosaic attenuation of the lung parenchyma compared to earlier today which could be related with air trapping in the setting of small airways disease. 4. Pulmonary nodules are better visualized on the CT chest from earlier today in view of the limitations of motion of the current study, please refer to the prior examination for management recommendations. 5. Simple fluid attenuating 0.9 cm nodule in the right breast, possibly a cyst. Recommend correlation with recent priors dedicated breast imaging and if the patient is due further evaluation with outpatient dedicated breast imaging. 6. Asymmetric enlargement of the left lobe of the thyroid with mild heterogeneity. Recommend further evaluation with outpatient thyroid ultrasound. VTE: positive. This critical result was discussed with Dr. Simms at 02/01/2024 7:27 PM CDT and it was ascertained that the content and urgency of the report was understood at the time of direct communication. Electronically signed by: Ivory Titus MD 02/01/2024 08:27 PM EDT RP Medications Medications Current Medications Al Hydroxide/Mg Hydroxide (Magnesium Hydrox/Alum Hydrox 30 Ml Oral.Susp) 30 ml PO Q6H PRN PRN Reason: Heartburn/Nausea Last Admin: 01/25/24 09:02 Dose: 30 ml Albuterol Sulfate (Albuterol Sulfate 90 Mcg 8 Gm Inhaler) 2 puff INHALE Q6H PRN PRN Reason: Shortness of Breath/Wheezing Bisacodyl (Bisacodyl 5 Mg Tablet.) 10 mg PO BEDTIME [facility] Last Admin: 02/01/24 20:43 Dose: 10 mg Cariprazine (Cariprazine Hcl 1.5 Mg Capsule) 4.5 mg PO DAILY [facility] Last Admin: 02/01/24 09:42 Dose: 4.5 mg Cyanocobalamin (Cyanocobalamin (Vitamin B-12) 500 Mcg Tablet) 500 mcg PO DAILY [facility] Last Admin: 02/01/24 09:44 Dose: 500 mcg Diphenhydramine HCl (Diphenhydramine Hcl 25 Mg Capsule) 50 mg PO BEDTIME [facility] Last Admin: 02/01/24 20:47 Dose: 50 mg Docusate Sodium (Docusate Sodium 100 Mg Capsule) 100 mg PO DAILY [facility] Last Admin: 02/01/24 09:54 Dose: Not Given Enoxaparin Sodium (Enoxaparin Sodium 80 Mg/0.8 Ml Syringe) 70 mg 1 mg/kg (70 mg) SUBCUT Q12H [facility] Last Admin: 02/01/24 21:22 Dose: 70 mg Ferrous Sulfate (Ferrous Sulfate 324 Mg Tablet.Dr) 324 mg PO DAILY [facility] Last Admin: 02/01/24 09:42 Dose: 324 mg Gabapentin (Gabapentin 400 Mg Capsule) 800 mg PO TID [facility] Last Admin: 02/01/24 20:48 Dose: Not Given Hydroxyzine HCl (Hydroxyzine Hcl 25 Mg Tablet) 25 mg PO Q6H PRN PRN Reason: Anxiety Last Admin: 02/01/24 12:51 Dose: 25 mg Magnesium Hydroxide (Milk Of Magnesia 30 Ml Oral.Susp) 30 ml PO DAILY PRN PRN Reason: Constipation Last Admin: 01/27/24 21:39 Dose: 30 ml Meclizine HCl (Meclizine Hcl 25 Mg Tablet) 25 mg PO TID PRN PRN Reason: dizziness Last Admin: 01/27/24 16:18 Dose: 25 mg Melatonin (Melatonin 3 Mg Tablet) 9 mg PO BEDTIME PRN PRN Reason: Insomnia Last Admin: 02/01/24 20:43 Dose: 9 mg Midodrine (Midodrine Hcl 10 Mg Tablet) 10 mg PO TID@0800,1300,1800 [facility] Last Admin: 02/01/24 20:45 Dose: 10 mg Mirtazapine (Mirtazapine 15 Mg Tablet) 15 mg PO BEDTIME [facility] Last Admin: 02/01/24 20:44 Dose: 15 mg Naloxone HCl (Naloxone Hcl 0.4 Mg/Ml Vial) 0.04 mg IVPUSH Q5M PRN PRN Reason: Excessive sedation or RR < 8 Nicotine (Nicotine 21 Mg Patch.Td24) 21 mg TRANSDERMA DAILY PRN PRN Reason: smoking cessation Nicotine Polacrilex (Nicotine Polacrilex 2 Mg Gum) 4 mg BUCCAL Q2H PRN PRN Reason: Nicotine Cravings Pt Own (Rosuvastatin (5 Mg Tablet)) 5 mg PO BEDTIME [facility] Last Admin: 02/01/24 20:44 Dose: 5 mg Ondansetron HCl (Ondansetron Odt 4 Mg Tab.Rapdis) 4 mg TRANSLINGU Q8H PRN PRN Reason: Nausea and Vomiting Last Admin: 02/01/24 09:42 Dose: 4 mg Oxycodone HCl (Oxycodone Hcl Immed Release 5 Mg Tablet) 5 mg PO Q4H PRN PRN Reason: Pain, Severe (Pain Scale 7-10) Last Admin: 02/02/24 02:05 Dose: 5 mg Polyethylene Glycol (Polyethylene Glycol 3350 17 Gm Powd.Pack) 17 gm PO DAILY [facility] Last Admin: 02/01/24 09:42 Dose: 17 gm Polyethylene Glycol (Polyethylene Glycol 3350 17 Gm Powd.Pack) 17 gm PO QID [facility] Last Admin: 02/01/24 20:48 Dose: Not Given Sodium Biphosphate/Sodium Phosphate (Sodium Phosphate,[place]-Dibasic 133 Ml Enema) 133 ml [place] ONCE PRN PRN Reason: continued constipation Last Admin: 01/31/24 18:00 Dose: 133 ml Sodium Biphosphate/Sodium Phosphate (Sodium Phosphate,[place]-Dibasic 133 Ml Enema) 133 ml [place] ONCE PRN PRN Reason: continued constipation Sodium Biphosphate/Sodium Phosphate (Sodium Phosphate,[place]-Dibasic 133 Ml Enema) 133 ml [place] DAILY PRN PRN Reason: continued constipation Topiramate (Topiramate 25 Mg Tablet) 100 mg PO DAILY [facility] Last Admin: 02/01/24 09:42 Dose: 100 mg Trazodone HCl (Trazodone Hcl 50 Mg Tablet) 50 mg PO BEDTIME MRX1 PRN PRN Reason: Insomnia Last Admin: 02/02/24 02:05 Dose: 50 mg Vitamin D (Cholecalciferol (Vitamin D3) 25 Mcg Tablet) 25 mcg PO DAILY [facility] Last Admin: 02/01/24 09:43 Dose: 25 mcg Allergies Allergies Allergy/AdvReac Type Severity Reaction Status Date / Time acetaminophen AdvReac Unknown Unknown Verified 01/22/24 09:01 atorvastatin AdvReac Severe elevated Uncoded 01/22/24 09:01 liver enzymes Assessment & Plan Assessment & Plan (1) MDD (major depressive disorder), recurrent, severe, with psychosis: Status: Acute Code(s): F33.3 - Major depressive disorder, recurrent, severe with psychotic symptoms (2) PTSD (post-traumatic stress disorder): Status: Acute Code(s): F43.10 - Post-traumatic stress disorder, unspecified Plan Patient is a 53-year-old female with history of MDD with psychotic features (r/o schizoaffective disorder, depressed type) PTSD, borderline traits, kidney cancer (one kidney) who presents for worsening depression and AH. Patient reports that she was feeling overall good enough until about 4 months ago. Without any obvious trigger, and despite continued adherence to medication regimen, she reports that her mood started to decline and AH (which is present independent of mood) became worse. Patient said she started having bad thoughts.. At which she became tearful and would not disclose them. She said her mood got worse and worse and voices told her to hurt herself; she started seeing shadow figures and having horrific nightmares where sometimes she can tell if she was awake or asleep but saw a ball of fire and things burning. AH worsened this past week and so patient self presented. She denies any history of manic type behaviors; ongoing PTSD symptoms. Patient does not remember history of med trials Formulaton/clinical reasoning: Manager [employer] discussed case with patient's outpatient psychiatric provider Dr. Kathleen who has known patient for years. She reports that Patient has long history of depression, frequently severe, intermixed with PTSD symptoms, emotional reactivity; although patient endorses continue AH, Dr. Kathleen does not think necessarily an organic psychotic illness and only symptom is AH (no history of delusional thinking, no disorganized speech or behavior). Pt has had numerous medication trials with only partial response. Discussed treatment approaches and provider agrees that ECT trial is warranted; no benefit from Latuda thus far and although was only at 20 mg, agree to start Vraylar instead which maybe a little more robust in dealing with AH. Patient amenable to changing medications. [place]? only one kidney so hesitant. Also considerations are OCD/JAMIE Hospital course: 01/24 acute abdominal pain on right side, discussed with hospitalist. ordered CT abdomen/pelvic 01/25 patient had bowel movement however still some right-sided abdominal pain; property underwriter ordered labs and discussed with hospitalist CJ who said they would follow-up -elevated LFTs/GGT -agrees with increasing Vraylar and undergoing ECT; consent signed 01/28 Patient reporting right lower quadrant abdominal pain which she said started about 2 days ago and has been Ebbing and flowing but increasing in pain which is an 8/10. Point tenderness with some rebound tenderness as well, but no guarding. Patient is only eating a little bit but continues drinking. Also 1 bowel movement a week ago which was small and otherwise only 1 very small 1 today. -vitals WNL and afebrile -no history of appendectomy; denies any history of cholecystectomy -will order CBC and monitor progress; patient will report to staff if pain worsens -will also treat for constipation 01/29with bothersome AH. Patient can not say why she initially said otherwise. Patient said that voices are telling her throughout the day to hit... Hit her referring to female peers. Patient said voice repeats this over and over so she went got headphones to drown it out. She has no plans intentions or urges to hit anyone. Patient asked about clozapine; discussed medication management options and for now She agrees to increasing Vraylar and to going forward with ECT. -Pain in abdomen remains but is less;WBC WNL; remains Afebrile and thus low concern for appendicitis will continue treating for constipation 01/30 post ECT, patient quiet, with headache; otherwise said procedure was fine and no problems; wants to continue; remains depressed with AH 01/31 Reports continued depression, anxiety and AH which she says is a little worse today. That said, patient seems more relaxed, is smiling more and engaged more, going to groups, talking more spontaneously; no other complaints. Discussed ECT and patient wants to continue. -continue current treatment plan 02/01 remains depressed with AH; says continued CP last night Hospitalist: pt c/o pleuritic chest pain back pain and left shoulder pain starting last night. Had ECT yesterday. Describes chest tightness worse with inspiration and coughing. Very mild cough. Bilateral shoulder pain and pain with palpation. Also low back pain. Complains of night sweats last night. Also feels congested. No history of previous symptoms but does have history of asthma and feels this is different. Has not used her albuterol yet. Denies any diarrhea nausea or constipation. Denies a history of seasonal allergies. patient's chest CTA is positive for PE. I evaluated patient and informed her about the results. She undertands and agrees with plan. She is still having some pleuritic mid-chest pain and has dypsnea w/ exertion. VS are stable (normal O2 sat on RA). It seems PE is unprovoked. We will start tx with Lovenox 70 mg SC bid and will need to be transitioned to PO anticoagulation. She was adviced to avoid NSAIDs such ibuprofen (motrin), naproxen while taking anticoagulation as this will increase her risk of bleeding. We will also obtain TTE in am. PLAN: CV q15 min DC Latuda Increased to Vraylar to 4.5 mg daily Cancelled ECT #2 due to new Onset PE Pt started on anticoag -continue Gabapentin -continue Topimax 100mg qhs (discussed with Dr. Flores who reports patient had a good seizure; although Topamax started to help with weight gain from medication side effect, it may also be helping with mood to some degree so will leave for now Numerous failed Med trials: Haldol: got tremor abilify: wt gain risperidone Geodon Cymbalta, Effexor, Lexapro, Pristiq mirtazapine lamictal Medical problems: Orthostatic hypotension Pt with continued, lightheadedness and dizziness, ongoing for many years Continue midodrine CTA showing possible with thinning of semicircular canals bilaterally with question of dehiscence ED contacted ENT who said is likely transient No additional workup or treatment necessary at this time Can follow up outpatient with ENT Thyroid nodule CTA found 1.9 cm left thyroid nodule Outpatient follow-up with thyroid ultrasound Constipation Reports last bowel movement 5 days ago Will give lactulose 30 mg p.o. x1 dose Continue current bowel regimen Patient educated on: diagnosis, medication risk/benefits and medical condition Informed Consent: understands Reason for continued inpatient stay Substantial Risk for: rapid decompensation Time Spent With Patient Time: Total time managing care of this patient today ____ minutes.
[2024-02-02] MEDS: Midodrine HCl 10 MG TABLET PO ×3 (09:03→18:30)
[2024-02-02] MEDS: Docusate Sodium 100 MG CAPSULE PO (09:03)
[2024-02-02] MEDS: Meclizine HCl 25 MG TABLET PO ×2 (09:03→14:04)
[2024-02-02] MEDS: Gabapentin 400 MG CAPSULE 800 MG PO ×3 (09:03→21:50)
[2024-02-02] MEDS: Cariprazine HCl 1.5 MG CAPSULE 4.5 MG PO (09:03)
[2024-02-02] MEDS: Ondansetron ODT 4 MG TAB.RAPDIS TRANSLINGU (09:07)
[2024-02-02] MEDS: polyethylene glycoL 3350 17 GM POWD.PACK PO (09:08)
[2024-02-02] MEDS: Topiramate 25 MG TABLET 100 MG PO (09:10)
--- NOTE | 2024-02-02 10:00 | PM.EVENT ---
Event Note Date of Service: 02/02/24 Event Note: 53 yo F with new PE dx'd yesterday due to pleuritic CP , +D-dimer and CTA with embolism in R main pulmonary artery and segmental branches. EKG, Troponin, CBC and respiratory panel normal started on lovenox last night. still with chest pain, worse with inspiration. c/o headache since ECT, taking oxycodone as ibuprofen contraindicated and no relief with tylenol. describes it as tightness in the occipital region. also with chronic dizziness but has vertigo and takes meclizine. exam: const: A+Ox3, full time staff interpreter present, no acute distress cardio: RRR, no M, no LE edema pulm: CTA bilat. no use of accessory muscles. difficult to auscultate due to pain with inspiration neuro: decreased sensation right side of face. no facial droop, tongue and uvula midline. EOM intact. pupils ERRL. CN II-XII intact. motor 5/5 throughout. speech clear. unable to perform pronator drift due to balance issues. msk: no LE edema. no significant warmth or erythema. negative guero's sign. a/p: Discussed dx of PE with pt and further w/u and treatment. Given that her neuro exam did not show any focal deficits and she complained of a LANZA after ECT will continue to monitor LANZA and and any changes neurologically. PE - continue lovenox SQ Q12H - hold ibuprofen - waiting on TTE and BLE dopplar US - consider hematology consult - hold ECT and will get pulmonary consult prior to restarting Headache - neuro exam normal - continue to monitor - oxycodone for pain relief Time Spent With Patient Time: Total time managing care of this patient today ____ minutes.
[2024-02-02] MEDS: Enoxaparin Sodium 80 MG/0.8 ML SYRINGE 70 MG SUBCUT ×2 (10:33→21:48)
--- NOTE | 2024-02-02 13:28 | PC.NURSE ---
Addendum entered by Kayla Nolen, RN 02/02/24 20:28: 1400 late entry Xenia was transported without incident to US department and Cardiology department for ordered exams. After the tests, she immediately went to sleep. She woke for dinner but returned to bed shortly afterward. Original Note: Xenia is not feeling well today. She met with the CJ Villanueva and the electronic lab technician this morning. Thorough exam done. Orders placed. She was scheduled for a LE U/S today, it was supposed to be done early this am, it will not be done untill 1400. This nurse notified Kay CORONA. She is complaining of head/neck ache, taking oxycodone with desired effect.
[2024-02-02] MEDS: diphenhydrAMINE HCL 25 MG CAPSULE 50 MG PO (21:50)
[2024-02-02] MEDS: Mirtazapine 15 MG TABLET PO (21:50)
[2024-02-02] MEDS: bisacodyL 5 MG TABLET.DR 10 MG PO (21:50)
[2024-02-02] MEDS: ROSUVASTATIN 5 MG 5 EACH PO (21:55)
[2024-02-02] MEDS: hydrOXYzine HCL 25 MG TABLET PO (22:18)
[2024-02-03 00:43] VITALS: PULSE 69; RESP 20; O2SAT 96
[2024-02-03] MEDS: oxyCODONE HCl Immed Release 5 MG TABLET PO ×5 (03:31→21:39)
[2024-02-03] MEDS: traZODone HCL 50 MG TABLET PO (03:32)
[2024-02-03] MEDS: Enoxaparin Sodium 80 MG/0.8 ML SYRINGE 70 MG SUBCUT ×2 (07:54→21:36)
[2024-02-03] MEDS: Ferrous Sulfate 324 MG TABLET.DR PO (07:56)
[2024-02-03] MEDS: Topiramate 25 MG TABLET 100 MG PO (07:56)
[2024-02-03] MEDS: Cholecalciferol (Vitamin D3) 25 MCG TABLET PO (07:57)
[2024-02-03] MEDS: Cariprazine HCl 1.5 MG CAPSULE 4.5 MG PO (07:57)
[2024-02-03] MEDS: Cyanocobalamin (Vitamin B-12) 500 MCG TABLET PO (07:57)
[2024-02-03 07:58] VITALS: BP 104/63
[2024-02-03] MEDS: Midodrine HCl 10 MG TABLET PO ×2 (07:58→12:20)
[2024-02-03] MEDS: Gabapentin 400 MG CAPSULE 800 MG PO ×3 (07:58→21:38)
[2024-02-03] MEDS: Meclizine HCl 25 MG TABLET PO ×2 (07:59→21:38)
[2024-02-03 08:00] VITALS: BP 104/63; PULSE 56; TEMP 36.8; O2SAT 97
--- NOTE | 2024-02-03 09:28 | P.PNPSI_ITS ---
Subjective Subjective Date of Service: 02/03/24 Reason For Visit: depression Interim History: Met With patient; discussed with team Patient remains depressed, however says a H is lower which is a new report. Uncomfortable with continued intermittent chest pain; has a headache Mental Status Exam Mental Status Exam Narrative: Pt is alert and oriented; behavior is cooperative, calm, more engaged; patient is not in distress; dressed in casual attire with adequate grooming; mood is described as Depressed.. though affect seems a little brighter and more relaxed; eye contact improved; Speech remains soft volume, slowed rate but is more spontaneous; normal prosody; psychomotor retardation present; thought process is goal oriented; Thought content is on symptoms, tx; otherwise pertinent to relevant topics and without any delusional content, paranoid ideations or grandiosity; no SI; no HI; reports AH is less. Patients insight and judgment impaired Diagnostics Vital Signs (24Hr): Vital Signs - 24 hr 02/02/24 13:50 02/02/24 18:30 02/02/24 20:00 Temperature 97.6 F Pulse Rate 70 Respiratory Rate 18 Blood Pressure 116/74 124/70 126/64 Pulse Oximetry 96 Oxygen Delivery Method Room Air 02/03/24 00:43 02/03/24 07:58 02/03/24 08:00 Temperature 98.2 F Pulse Rate 56 Respiratory Rate 20 Blood Pressure 104/63 104/63 Pulse Oximetry 97 Oxygen Delivery Method Room Air BMI result Body Mass Index 28.0 Labs 02/01/24 13:18 02/01/24 13:18 Labs: Laboratory Results - last 48 hr 02/01/24 02/01/24 13:18 Unknown WBC 8.1 RBC 4.03 L Hgb 13.7 Hct 42.1 MCV 104.5 H MCH 34.0 H MCHC 32.5 RDW 12.0 Plt Count 281 MPV 9.7 Immature Gran % (Auto) 0.4 Neut % (Auto) 67.1 Lymph % (Auto) 24.0 [place] % (Auto) 6.8 Eos % (Auto) 1.0 Baso % (Auto) 0.7 Lymph # (Auto) 1.9 [place] # (Auto) 0.6 Eos # (Auto) 0.1 Baso # (Auto) 0.1 Abs Immat Gran (auto) 0.03 Absolute Neuts (auto) 5.4 Absolute Nucleated RBC 0.000 Nucleated RBC % (auto) 0.0 D-Dimer High Sensitivty 781 Sodium 144 Potassium 3.9 Chloride 117 H Carbon Dioxide 20 L Anion Gap 11 L BUN 17 H Creatinine 1.08 Estim Creat Clear Calc 56.4 Estimated GFR 53 Random Glucose 96 Calcium 9.2 Total Bilirubin 0.3 AST 20 ALT 28 Alkaline Phosphatase 136 H Troponin I High Sens < 2.7 Total Protein 6.9 Albumin 3.9 Respiratory Panel [place] See Note Adenovirus (Rapid PCR) Not Detected B.pert (TEM-PCR) Not Detected B.parapertussis DNA PCR Not Detected C. pneumoniae DNA (PCR) Not Detected Coronavirus OC43 (PCR) Not Detected Coronavirus HKU1 (PCR) Not Detected Coronavirus 229E (PCR) Not Detected Coronavirus NL63 (PCR) Not Detected Human Metapneumovir PCR Not Detected Influenza A (RT-PCR) Not Detected Influenza B (RT-PCR) Not Detected M. pneumoniae (PCR) Not Detected Parainfluenza 1 (PCR) Not Detected Parainfluenza 2 (PCR) Not Detected Parainfluenza 3 (PCR) Not Detected Parainfluenza 4 (PCR) Not Detected RSV (PCR) Not Detected Entero/Rhino (PCR) Not Detected SARS-CoV-2 RNA (RT-PCR) Not Detected Imaging Radiology Impressions: ITS Impressions Head/Neck CTA 01/22/24 12:43 IMPRESSION: -No acute intracranial hemorrhage or edematous infarct. -No hemodynamically significant stenosis in the major arteries of the neck or intracranial circulation. -Incidentally noted thinning of the superior semicircular canals bilaterally, worse on the right with suggestion of dehiscence. If there is concern for semicircular canal dehiscence, recommend further characterization with dedicated CT of the temporal bones. -A 1.9 cm hypoattenuating nodule in the left thyroid lobe. Based on the recommendations of the ACR Incidental Thyroid Findings Committee (JACR 2015 Jun; 12(2):143-50), further evaluation by thyroid ultrasound is recommended for solitary incidental thyroid nodules greater than or equal to 1.5 cm in largest axial dimension in patients age 35 years and older who do not have limited life expectancy or significant morbidities, unless clinically warranted. Electronically signed by: Luis Armando Smith MD 01/22/2024 02:45 PM EDT RP Abdomen/Pelvis CT 01/25/24 18:13 IMPRESSION: Fluid throughout distal small bowel as well as the ascending and transverse colon, suggesting an element of hypersecretion. Small to moderate amount of stool within the descending and sigmoid colon. Postsurgical changes as above. Additional findings as above. Electronically signed by: Shravan Slaughter MD 01/26/2024 07:38 AM EDT RP Chest CT 02/01/24 08:51 IMPRESSION: 1. There is a 3.2 cm groundglass nodular density in the right middle lobe. 2. There is a 7.1 mm right lower lobe perifissural nodule which has increased in size when compared to the 01/25/2024 study. 3. Other incidental findings as described above. 6. A 6 months follow-up chest CT scan recommended to document the stability of the pulmonary nodules. This is what would be recommended if the patient was in a lung screening program. Fleischner guidelines were followed. Electronically signed by: Diego Oconnell MD 02/01/2024 11:30 AM EDT RP Chest CTA 02/01/24 18:34 IMPRESSION: 1. Pulmonary emboli in the right main pulmonary artery and segmental branches of the right lower lobe. 2. Mild reflux of contrast into the hepatic veins that could indicate elevated right-sided heart pressures. 3. Increased mosaic attenuation of the lung parenchyma compared to earlier today which could be related with air trapping in the setting of small airways disease. 4. Pulmonary nodules are better visualized on the CT chest from earlier today in view of the limitations of motion of the current study, please refer to the prior examination for management recommendations. 5. Simple fluid attenuating 0.9 cm nodule in the right breast, possibly a cyst. Recommend correlation with recent priors dedicated breast imaging and if the patient is due further evaluation with outpatient dedicated breast imaging. 6. Asymmetric enlargement of the left lobe of the thyroid with mild heterogeneity. Recommend further evaluation with outpatient thyroid ultrasound. VTE: positive. This critical result was discussed with Dr. Simms at 02/01/2024 7:27 PM CDT and it was ascertained that the content and urgency of the report was understood at the time of direct communication. Electronically signed by: Ivory Titus MD 02/01/2024 08:27 PM EDT RP Venous Duplex 02/02/24 14:07 IMPRESSION: No evidence of deep venous thrombosis involving the bilateral lower extremities. Electronically signed by: French Gore MD 02/02/2024 02:48 PM EDT Medications Medications Current Medications Al Hydroxide/Mg Hydroxide (Magnesium Hydrox/Alum Hydrox 30 Ml Oral.Susp) 30 ml PO Q6H PRN PRN Reason: Heartburn/Nausea Last Admin: 01/25/24 09:02 Dose: 30 ml Albuterol Sulfate (Albuterol Sulfate 90 Mcg 8 Gm Inhaler) 2 puff INHALE Q6H PRN PRN Reason: Shortness of Breath/Wheezing Bisacodyl (Bisacodyl 5 Mg Tablet.) 10 mg PO BEDTIME [facility] Last Admin: 02/02/24 21:50 Dose: 10 mg Cariprazine (Cariprazine Hcl 1.5 Mg Capsule) 4.5 mg PO DAILY [facility] Last Admin: 02/03/24 07:57 Dose: 4.5 mg Cyanocobalamin (Cyanocobalamin (Vitamin B-12) 500 Mcg Tablet) 500 mcg PO DAILY [facility] Last Admin: 02/03/24 07:57 Dose: 500 mcg Diphenhydramine HCl (Diphenhydramine Hcl 25 Mg Capsule) 50 mg PO BEDTIME [facility] Last Admin: 02/02/24 21:50 Dose: 50 mg Docusate Sodium (Docusate Sodium 100 Mg Capsule) 100 mg PO DAILY [facility] Last Admin: 02/03/24 08:47 Dose: Not Given Enoxaparin Sodium (Enoxaparin Sodium 80 Mg/0.8 Ml Syringe) 70 mg 1 mg/kg (70 mg) SUBCUT Q12H [facility] Last Admin: 02/03/24 07:54 Dose: 70 mg Ferrous Sulfate (Ferrous Sulfate 324 Mg Tablet.Dr) 324 mg PO DAILY [facility] Last Admin: 02/03/24 07:56 Dose: 324 mg Gabapentin (Gabapentin 400 Mg Capsule) 800 mg PO TID [facility] Last Admin: 02/03/24 07:58 Dose: 800 mg Hydroxyzine HCl (Hydroxyzine Hcl 25 Mg Tablet) 25 mg PO Q6H PRN PRN Reason: Anxiety Last Admin: 02/02/24 22:18 Dose: 25 mg Magnesium Hydroxide (Milk Of Magnesia 30 Ml Oral.Susp) 30 ml PO DAILY PRN PRN Reason: Constipation Last Admin: 01/27/24 21:39 Dose: 30 ml Meclizine HCl (Meclizine Hcl 25 Mg Tablet) 25 mg PO TID PRN PRN Reason: dizziness Last Admin: 02/03/24 07:59 Dose: 25 mg Melatonin (Melatonin 3 Mg Tablet) 9 mg PO BEDTIME PRN PRN Reason: Insomnia Last Admin: 02/01/24 20:43 Dose: 9 mg Midodrine (Midodrine Hcl 10 Mg Tablet) 10 mg PO TID@0800,1300,1800 [facility] Last Admin: 02/03/24 07:58 Dose: 10 mg Mirtazapine (Mirtazapine 15 Mg Tablet) 15 mg PO BEDTIME [facility] Last Admin: 02/02/24 21:50 Dose: 15 mg Naloxone HCl (Naloxone Hcl 0.4 Mg/Ml Vial) 0.04 mg IVPUSH Q5M PRN PRN Reason: Excessive sedation or RR < 8 Nicotine (Nicotine 21 Mg Patch.Td24) 21 mg TRANSDERMA DAILY PRN PRN Reason: smoking cessation Nicotine Polacrilex (Nicotine Polacrilex 2 Mg Gum) 4 mg BUCCAL Q2H PRN PRN Reason: Nicotine Cravings Pt Own (Rosuvastatin (5 Mg Tablet)) 5 mg PO BEDTIME [facility] Last Admin: 02/02/24 21:55 Dose: 5 mg Ondansetron HCl (Ondansetron Odt 4 Mg Tab.Rapdis) 4 mg TRANSLINGU Q8H PRN PRN Reason: Nausea and Vomiting Last Admin: 02/02/24 09:07 Dose: 4 mg Oxycodone HCl (Oxycodone Hcl Immed Release 5 Mg Tablet) 5 mg PO Q4H PRN PRN Reason: Pain, Severe (Pain Scale 7-10) Last Admin: 02/03/24 07:58 Dose: 5 mg Polyethylene Glycol (Polyethylene Glycol 3350 17 Gm Powd.Pack) 17 gm PO DAILY [facility] Last Admin: 02/03/24 08:48 Dose: Not Given Sodium Biphosphate/Sodium Phosphate (Sodium Phosphate,[place]-Dibasic 133 Ml Enema) 133 ml RI ONCE PRN PRN Reason: continued constipation Last Admin: 01/31/24 18:00 Dose: 133 ml Sodium Biphosphate/Sodium Phosphate (Sodium Phosphate,[place]-Dibasic 133 Ml Enema) 133 ml RI ONCE PRN PRN Reason: continued constipation Sodium Biphosphate/Sodium Phosphate (Sodium Phosphate,[place]-Dibasic 133 Ml Enema) 133 ml RI DAILY PRN PRN Reason: continued constipation Topiramate (Topiramate 25 Mg Tablet) 100 mg PO DAILY [facility] Last Admin: 02/03/24 07:56 Dose: 100 mg Trazodone HCl (Trazodone Hcl 50 Mg Tablet) 50 mg PO BEDTIME MRX1 PRN PRN Reason: Insomnia Last Admin: 02/03/24 03:32 Dose: 50 mg Vitamin D (Cholecalciferol (Vitamin D3) 25 Mcg Tablet) 25 mcg PO DAILY [facility] Last Admin: 02/03/24 07:57 Dose: 25 mcg Allergies Allergies Allergy/AdvReac Type Severity Reaction Status Date / Time acetaminophen AdvReac Unknown Unknown Verified 01/22/24 09:01 atorvastatin AdvReac Severe elevated Uncoded 01/22/24 09:01 liver enzymes Assessment & Plan Assessment & Plan (1) MDD (major depressive disorder), recurrent, severe, with psychosis: Status: Acute Code(s): F33.3 - Major depressive disorder, recurrent, severe with psychotic symptoms (2) PTSD (post-traumatic stress disorder): Status: Acute Code(s): F43.10 - Post-traumatic stress disorder, unspecified Plan Patient is a 53-year-old female with history of MDD with psychotic features (r/o schizoaffective disorder, depressed type) PTSD, borderline traits, kidney cancer (one kidney) who presents for worsening depression and AH. Patient reports that she was feeling overall good enough until about 4 months ago. Without any obvious trigger, and despite continued adherence to medication regimen, she reports that her mood started to decline and AH (which is present independent of mood) became worse. Patient said she started having bad thoughts.. At which she became tearful and would not disclose them. She said her mood got worse and worse and voices told her to hurt herself; she started seeing shadow figures and having horrific nightmares where sometimes she can tell if she was awake or asleep but saw a ball of fire and things burning. AH worsened this past week and so patient self presented. She denies any history of manic type behaviors; ongoing PTSD symptoms. Patient does not remember history of med trials Formulaton/clinical reasoning: Prizer Hand discussed case with patient's outpatient psychiatric provider Dr. Kathleen who has known patient for years. She reports that Patient has long history of depression, frequently severe, intermixed with PTSD symptoms, emotional reactivity; although patient endorses continue AH, Dr. Kathlene does not think necessarily an organic psychotic illness and only symptom is AH (no history of delusional thinking, no disorganized speech or behavior). Pt has had numerous medication trials with only partial response. Discussed treatment approaches and provider agrees that ECT trial is warranted; no benefit from Latuda thus far and although was only at 20 mg, agree to start Vraylar instead which maybe a little more robust in dealing with AH. Patient amenable to changing medications. [place]? only one kidney so hesitant. Also considerations are OCD/JAMIE Hospital course: 01/24 acute abdominal pain on right side, discussed with hospitalist. ordered CT abdomen/pelvic 01/25 patient had bowel movement however still some right-sided abdominal pain; underwriter mortgage loan ordered labs and discussed with hospitalist CJ who said they would follow-up -elevated LFTs/GGT -agrees with increasing Vraylar and undergoing ECT; consent signed 01/28 Patient reporting right lower quadrant abdominal pain which she said started about 2 days ago and has been Ebbing and flowing but increasing in pain which is an 8/10. Point tenderness with some rebound tenderness as well, but no guarding. Patient is only eating a little bit but continues drinking. Also 1 bowel movement a week ago which was small and otherwise only 1 very small 1 today. -vitals WNL and afebrile -no history of appendectomy; denies any history of cholecystectomy -will order CBC and monitor progress; patient will report to staff if pain worsens -will also treat for constipation 01/29with bothersome AH. Patient can not say why she initially said otherwise. Patient said that voices are telling her throughout the day to hit... Hit her referring to female peers. Patient said voice repeats this over and over so she went got headphones to drown it out. She has no plans intentions or urges to hit anyone. Patient asked about clozapine; discussed medication management options and for now She agrees to increasing Vraylar and to going forward with ECT. -Pain in abdomen remains but is less;WBC WNL; remains Afebrile and thus low concern for appendicitis will continue treating for constipation 01/30 post ECT, patient quiet, with headache; otherwise said procedure was fine and no problems; wants to continue; remains depressed with AH 01/31 Reports continued depression, anxiety and AH which she says is a little worse today. That said, patient seems more relaxed, is smiling more and engaged more, going to groups, talking more spontaneously; no other complaints. Discussed ECT and patient wants to continue. -continue current treatment plan 02/01 remains depressed with AH; says continued CP last night (01/31) Hospitalist: pt c/o pleuritic chest pain back pain and left shoulder pain starting last night. Had ECT yesterday. Describes chest tightness worse with inspiration and coughing. Very mild cough. Bilateral shoulder pain and pain with palpation. Also low back pain. Complains of night sweats last night. Also feels congested. No history of previous symptoms but does have history of asthma and feels this is different. Has not used her albuterol yet. Denies any diarrhea nausea or constipation. Denies a history of seasonal allergies. patient's chest CTA is positive for PE. I evaluated patient and informed her about the results. She undertands and agrees with plan. She is still having some pleuritic mid-chest pain and has dypsnea w/ exertion. VS are stable (normal O2 sat on RA). It seems PE is unprovoked. We will start tx with Lovenox 70 mg SC bid and will need to be transitioned to PO anticoagulation. She was adviced to avoid NSAIDs such ibuprofen (motrin), naproxen while taking anticoagulation as this will increase her risk of bleeding. We will also obtain TTE in am. 02/01 -of note, staff who have known patient throughout the years report that she currently seems to be doing better than she has in the past admissions. It was also explained that patient may have a very hard time acknowledging when she is doing better. 02/02 continue current treatment plan; will order ibuprofen for headache; patient understands ECT is being held for the time being PLAN: CV q15 min DC Latuda Increased to Vraylar to 4.5 mg daily Cancelled ECT #2 due to new Onset PE Pt started on anticoag -continue Gabapentin -continue Topimax 100mg qhs (discussed with Dr. Flores who reports patient had a good seizure; although Topamax started to help with weight gain from medication side effect, it may also be helping with mood to some degree so will leave for now Numerous failed Med trials: Haldol: got tremor abilify: wt gain risperidone Geodon Cymbalta, Effexor, Lexapro, Pristiq mirtazapine lamictal Medical problems: Orthostatic hypotension Pt with continued, lightheadedness and dizziness, ongoing for many years Continue midodrine CTA showing possible with thinning of semicircular canals bilaterally with question of dehiscence ED contacted ENT who said is likely transient No additional workup or treatment necessary at this time Can follow up outpatient with ENT Thyroid nodule CTA found 1.9 cm left thyroid nodule Outpatient follow-up with thyroid ultrasound Constipation Reports last bowel movement 5 days ago Will give lactulose 30 mg p.o. x1 dose Continue current bowel regimen Patient educated on: diagnosis, medication risk/benefits and ECT Informed Consent: understands Reason for continued inpatient stay Substantial Risk for: rapid decompensation Time Spent With Patient Time: Total time managing care of this patient today ____ minutes.
[2024-02-03] MEDS: Ondansetron ODT 4 MG TAB.RAPDIS TRANSLINGU (12:19)
[2024-02-03 12:20] VITALS: BP 110/68
[2024-02-03] MEDS: hydrOXYzine HCL 25 MG TABLET PO ×2 (12:21→21:40)
[2024-02-03 20:00] VITALS: BP 133/82; PULSE 71; RESP 18; TEMP 36.6; O2SAT 97
[2024-02-03] MEDS: Mirtazapine 15 MG TABLET PO (21:36)
[2024-02-03] MEDS: diphenhydrAMINE HCL 25 MG CAPSULE 50 MG PO (21:38)
[2024-02-03] MEDS: Melatonin 3 MG TABLET 9 MG PO (21:38)
[2024-02-03] MEDS: bisacodyL 5 MG TABLET.DR 10 MG PO (21:39)
[2024-02-03] MEDS: ROSUVASTATIN 5 MG 5 EACH PO (21:40)
[2024-02-04 00:05] VITALS: PULSE 59; RESP 20; O2SAT 94
[2024-02-04] MEDS: oxyCODONE HCl Immed Release 5 MG TABLET PO ×2 (02:18→12:48)
[2024-02-04] MEDS: traZODone HCL 50 MG TABLET PO (02:19)
[2024-02-04 08:43] VITALS: BP 100/59; PULSE 56; RESP 16; TEMP 36.8; O2SAT 97
[2024-02-04] MEDS: Enoxaparin Sodium 80 MG/0.8 ML SYRINGE 70 MG SUBCUT (08:45)
[2024-02-04] MEDS: Topiramate 25 MG TABLET 100 MG PO (09:00)
[2024-02-04] MEDS: Gabapentin 400 MG CAPSULE 800 MG PO (09:01)
[2024-02-04] MEDS: Ferrous Sulfate 324 MG TABLET.DR PO (09:01)
[2024-02-04] MEDS: Docusate Sodium 100 MG CAPSULE PO (09:01)
[2024-02-04] MEDS: Cariprazine HCl 1.5 MG CAPSULE 4.5 MG PO (09:01)
[2024-02-04] MEDS: Cyanocobalamin (Vitamin B-12) 500 MCG TABLET PO (09:01)
[2024-02-04] MEDS: Cholecalciferol (Vitamin D3) 25 MCG TABLET PO (09:01)
[2024-02-04] MEDS: Midodrine HCl 10 MG TABLET PO ×2 (09:02→12:49)
[2024-02-04] MEDS: polyethylene glycoL 3350 17 GM POWD.PACK PO (09:53)
--- NOTE | 2024-02-04 10:19 | P.PNPSI_ITS ---
Subjective Subjective Date of Service: 02/04/24 Reason For Visit: depression Interim History: Met with patient with manager basketball; discussed with team On approach, patient lying in bed, awake/Alert x4. She reports that she felt that her left side of her face was drooping and that she had left arm and leg weakness and decreased sensation on both left hand and leg Focused neuro exam showed No AMS EOMI; pupils equally round and reactive to accommodation facial asymetry with mild left sided facial droop reduced strength left arm/hand grasp 4/5 reduced strength left lower limb 3/5 decreased senstation to touch left arm and leg reduced strength left foot flexion 3/5 Senior Business Architect contacted hospitalist , stat head/neck CT plus angiogram ordered and patient transferred medical service Mental Status Exam Mental Status Exam Narrative: Pt is alert and oriented; behavior is cooperative, calm, more engaged; patient is not in distress; dressed in casual attire with adequate grooming; mood is described as Depressed.. affect downcast; eye contact appropriate; Speech remains soft volume, slowed rate but is more spontaneous; normal prosody; psychomotor retardation present; thought process is goal oriented; Thought content is on symptoms, tx; otherwise pertinent to relevant topics and without any delusional content, paranoid ideations or grandiosity; no SI; no HI; reports AH is less. Patients insight and judgment impaired Diagnostics Vital Signs (24Hr): Vital Signs - 24 hr 02/03/24 12:20 02/03/24 20:00 02/04/24 00:05 Temperature 97.8 F Pulse Rate 71 Respiratory Rate 18 20 Blood Pressure 110/68 133/82 Pulse Oximetry 97 Oxygen Delivery Method Room Air 02/04/24 08:43 Temperature 98.2 F Pulse Rate 56 Respiratory Rate 16 Blood Pressure 100/59 L Pulse Oximetry 97 Oxygen Delivery Method Room Air BMI result Body Mass Index 28.0 Labs 02/01/24 13:18 02/01/24 13:18 Imaging Radiology Impressions: ITS Impressions Head/Neck CTA 01/22/24 12:43 IMPRESSION: -No acute intracranial hemorrhage or edematous infarct. -No hemodynamically significant stenosis in the major arteries of the neck or intracranial circulation. -Incidentally noted thinning of the superior semicircular canals bilaterally, worse on the right with suggestion of dehiscence. If there is concern for semicircular canal dehiscence, recommend further characterization with dedicated CT of the temporal bones. -A 1.9 cm hypoattenuating nodule in the left thyroid lobe. Based on the recommendations of the ACR Incidental Thyroid Findings Committee (JACR 2015 Jun; 12(2):143-50), further evaluation by thyroid ultrasound is recommended for solitary incidental thyroid nodules greater than or equal to 1.5 cm in largest axial dimension in patients age 35 years and older who do not have limited life expectancy or significant morbidities, unless clinically warranted. Electronically signed by: Luis Armando Smith MD 01/22/2024 02:45 PM EDT RP Abdomen/Pelvis CT 01/25/24 18:13 IMPRESSION: Fluid throughout distal small bowel as well as the ascending and transverse colon, suggesting an element of hypersecretion. Small to moderate amount of stool within the descending and sigmoid colon. Postsurgical changes as above. Additional findings as above. Electronically signed by: Shravan Slaughter MD 01/26/2024 07:38 AM EDT RP Chest CT 02/01/24 08:51 IMPRESSION: 1. There is a 3.2 cm groundglass nodular density in the right middle lobe. 2. There is a 7.1 mm right lower lobe perifissural nodule which has increased in size when compared to the 01/25/2024 study. 3. Other incidental findings as described above. 6. A 6 months follow-up chest CT scan recommended to document the stability of the pulmonary nodules. This is what would be recommended if the patient was in a lung screening program. Fleischner guidelines were followed. Electronically signed by: Diego Oconnell MD 02/01/2024 11:30 AM EDT RP Chest CTA 02/01/24 18:34 IMPRESSION: 1. Pulmonary emboli in the right main pulmonary artery and segmental branches of the right lower lobe. 2. Mild reflux of contrast into the hepatic veins that could indicate elevated right-sided heart pressures. 3. Increased mosaic attenuation of the lung parenchyma compared to earlier today which could be related with air trapping in the setting of small airways disease. 4. Pulmonary nodules are better visualized on the CT chest from earlier today in view of the limitations of motion of the current study, please refer to the prior examination for management recommendations. 5. Simple fluid attenuating 0.9 cm nodule in the right breast, possibly a cyst. Recommend correlation with recent priors dedicated breast imaging and if the patient is due further evaluation with outpatient dedicated breast imaging. 6. Asymmetric enlargement of the left lobe of the thyroid with mild heterogeneity. Recommend further evaluation with outpatient thyroid ultrasound. VTE: positive. This critical result was discussed with Dr. Simms at 02/01/2024 7:27 PM CDT and it was ascertained that the content and urgency of the report was understood at the time of direct communication. Electronically signed by: Ivory Titus MD 02/01/2024 08:27 PM EDT RP Venous Duplex 02/02/24 14:07 IMPRESSION: No evidence of deep venous thrombosis involving the bilateral lower extremities. Electronically signed by: French Gore MD 02/02/2024 02:48 PM EDT RP Medications Medications Current Medications Al Hydroxide/Mg Hydroxide (Magnesium Hydrox/Alum Hydrox 30 Ml Oral.Susp) 30 ml PO Q6H PRN PRN Reason: Heartburn/Nausea Last Admin: 01/25/24 09:02 Dose: 30 ml Albuterol Sulfate (Albuterol Sulfate 90 Mcg 8 Gm Inhaler) 2 puff INHALE Q6H PRN PRN Reason: Shortness of Breath/Wheezing Bisacodyl (Bisacodyl 5 Mg Tablet.) 10 mg PO BEDTIME [facility] Last Admin: 02/03/24 21:39 Dose: 10 mg Cariprazine (Cariprazine Hcl 1.5 Mg Capsule) 4.5 mg PO DAILY [facility] Last Admin: 02/04/24 09:01 Dose: 4.5 mg Cyanocobalamin (Cyanocobalamin (Vitamin B-12) 500 Mcg Tablet) 500 mcg PO DAILY [facility] Last Admin: 02/04/24 09:01 Dose: 500 mcg Diphenhydramine HCl (Diphenhydramine Hcl 25 Mg Capsule) 50 mg PO BEDTIME [facility] Last Admin: 02/03/24 21:38 Dose: 50 mg Docusate Sodium (Docusate Sodium 100 Mg Capsule) 100 mg PO DAILY [facility] Last Admin: 02/04/24 09:01 Dose: 100 mg Enoxaparin Sodium (Enoxaparin Sodium 80 Mg/0.8 Ml Syringe) 70 mg 1 mg/kg (70 mg) SUBCUT Q12H [facility] Last Admin: 02/04/24 08:45 Dose: 70 mg Ferrous Sulfate (Ferrous Sulfate 324 Mg Tablet.Dr) 324 mg PO DAILY [facility] Last Admin: 02/04/24 09:01 Dose: 324 mg Gabapentin (Gabapentin 400 Mg Capsule) 800 mg PO TID [facility] Last Admin: 02/04/24 09:01 Dose: 800 mg Hydroxyzine HCl (Hydroxyzine Hcl 25 Mg Tablet) 25 mg PO Q6H PRN PRN Reason: Anxiety Last Admin: 02/03/24 21:40 Dose: 25 mg Magnesium Hydroxide (Milk Of Magnesia 30 Ml Oral.Susp) 30 ml PO DAILY PRN PRN Reason: Constipation Last Admin: 01/27/24 21:39 Dose: 30 ml Meclizine HCl (Meclizine Hcl 25 Mg Tablet) 25 mg PO TID PRN PRN Reason: dizziness Last Admin: 02/03/24 21:38 Dose: 25 mg Melatonin (Melatonin 3 Mg Tablet) 9 mg PO BEDTIME PRN PRN Reason: Insomnia Last Admin: 02/03/24 21:38 Dose: 9 mg Midodrine (Midodrine Hcl 10 Mg Tablet) 10 mg PO TID@0800,1300,1800 [facility] Last Admin: 02/04/24 09:02 Dose: 10 mg Mirtazapine (Mirtazapine 15 Mg Tablet) 15 mg PO BEDTIME [facility] Last Admin: 02/03/24 21:36 Dose: 15 mg Naloxone HCl (Naloxone Hcl 0.4 Mg/Ml Vial) 0.04 mg IVPUSH Q5M PRN PRN Reason: Excessive sedation or RR < 8 Nicotine (Nicotine 21 Mg Patch.Td24) 21 mg TRANSDERMA DAILY PRN PRN Reason: smoking cessation Nicotine Polacrilex (Nicotine Polacrilex 2 Mg Gum) 4 mg BUCCAL Q2H PRN PRN Reason: Nicotine Cravings Pt Own (Rosuvastatin (5 Mg Tablet)) 5 mg PO BEDTIME [facility] Last Admin: 02/03/24 21:40 Dose: 5 mg Ondansetron HCl (Ondansetron Odt 4 Mg Tab.Rapdis) 4 mg TRANSLINGU Q8H PRN PRN Reason: Nausea and Vomiting Last Admin: 02/03/24 12:19 Dose: 4 mg Oxycodone HCl (Oxycodone Hcl Immed Release 5 Mg Tablet) 5 mg PO Q4H PRN PRN Reason: Pain, Severe (Pain Scale 7-10) Last Admin: 02/04/24 02:18 Dose: 5 mg Polyethylene Glycol (Polyethylene Glycol 3350 17 Gm Powd.Pack) 17 gm PO DAILY [facility] Last Admin: 02/04/24 09:53 Dose: 17 gm Sodium Biphosphate/Sodium Phosphate (Sodium Phosphate,Sutter-Dibasic 133 Ml Enema) 133 ml OK ONCE PRN PRN Reason: continued constipation Last Admin: 01/31/24 18:00 Dose: 133 ml Sodium Biphosphate/Sodium Phosphate (Sodium Phosphate,Sutter-Dibasic 133 Ml Enema) 133 ml OK ONCE PRN PRN Reason: continued constipation Sodium Biphosphate/Sodium Phosphate (Sodium Phosphate,Sutter-Dibasic 133 Ml Enema) 133 ml OK DAILY PRN PRN Reason: continued constipation Topiramate (Topiramate 25 Mg Tablet) 100 mg PO DAILY [facility] Last Admin: 02/04/24 09:00 Dose: 100 mg Trazodone HCl (Trazodone Hcl 50 Mg Tablet) 50 mg PO BEDTIME MRX1 PRN PRN Reason: Insomnia Last Admin: 02/04/24 02:19 Dose: 50 mg Vitamin D (Cholecalciferol (Vitamin D3) 25 Mcg Tablet) 25 mcg PO DAILY [facility] Last Admin: 02/04/24 09:01 Dose: 25 mcg Allergies Allergies Allergy/AdvReac Type Severity Reaction Status Date / Time acetaminophen AdvReac Unknown Unknown Verified 01/22/24 09:01 atorvastatin AdvReac Severe elevated Uncoded 01/22/24 09:01 liver enzymes Assessment & Plan Assessment & Plan (1) MDD (major depressive disorder), recurrent, severe, with psychosis: Status: Acute Code(s): F33.3 - Major depressive disorder, recurrent, severe with psychotic symptoms (2) PTSD (post-traumatic stress disorder): Status: Acute Code(s): F43.10 - Post-traumatic stress disorder, unspecified Plan Patient is a 53-year-old female with history of MDD with psychotic features (r/o schizoaffective disorder, depressed type) PTSD, borderline traits, kidney cancer (one kidney) who presents for worsening depression and AH. Patient reports that she was feeling overall good enough until about 4 months ago. Without any obvious trigger, and despite continued adherence to medication regimen, she reports that her mood started to decline and AH (which is present independent of mood) became worse. Patient said she started having bad thoughts.. At which she became tearful and would not disclose them. She said her mood got worse and worse and voices told her to hurt herself; she started seeing shadow figures and having horrific nightmares where sometimes she can tell if she was awake or asleep but saw a ball of fire and things burning. AH worsened this past week and so patient self presented. She denies any history of manic type behaviors; ongoing PTSD symptoms. Patient does not remember history of med trials Formulaton/clinical reasoning: Senior Business Architect discussed case with patient's outpatient psychiatric provider Dr. Kathleen who has known patient for years. She reports that Patient has long history of depression, frequently severe, intermixed with PTSD symptoms, emotional reactivity; although patient endorses continue AH, Dr. Kathleen does not think necessarily an organic psychotic illness and only symptom is AH (no history of delusional thinking, no disorganized speech or behavior). Pt has had numerous medication trials with only partial response. Discussed treatment approaches and provider agrees that ECT trial is warranted; no benefit from Latuda thus far and although was only at 20 mg, agree to start Vraylar instead which maybe a little more robust in dealing with AH. Patient amenable to changing medications. [place]? only one kidney so hesitant. Also considerations are OCD/JAMIE Hospital course: 01/24 acute abdominal pain on right side, discussed with hospitalist. ordered CT abdomen/pelvic 01/25 patient had bowel movement however still some right-sided abdominal pain; bond writer ordered labs and discussed with hospitalist CJ who said they would follow-up -elevated LFTs/GGT -agrees with increasing Vraylar and undergoing ECT; consent signed 01/28 Patient reporting right lower quadrant abdominal pain which she said started about 2 days ago and has been Ebbing and flowing but increasing in pain which is an 8/10. Point tenderness with some rebound tenderness as well, but no guarding. Patient is only eating a little bit but continues drinking. Also 1 bowel movement a week ago which was small and otherwise only 1 very small 1 today. -vitals WNL and afebrile -no history of appendectomy; denies any history of cholecystectomy -will order CBC and monitor progress; patient will report to staff if pain worsens -will also treat for constipation 01/29with bothersome AH. Patient can not say why she initially said otherwise. Patient said that voices are telling her throughout the day to hit... Hit her referring to female peers. Patient said voice repeats this over and over so she went got headphones to drown it out. She has no plans intentions or urges to hit anyone. Patient asked about clozapine; discussed medication management options and for now She agrees to increasing Vraylar and to going forward with ECT. -Pain in abdomen remains but is less;WBC WNL; remains Afebrile and thus low concern for appendicitis will continue treating for constipation 01/30 post ECT, patient quiet, with headache; otherwise said procedure was fine and no problems; wants to continue; remains depressed with AH 01/31 Reports continued depression, anxiety and AH which she says is a little worse today. That said, patient seems more relaxed, is smiling more and engaged more, going to groups, talking more spontaneously; no other complaints. Discussed ECT and patient wants to continue. -continue current treatment plan 02/01 remains depressed with AH; says continued CP last night (01/31) Hospitalist: pt c/o pleuritic chest pain back pain and left shoulder pain starting last night. Had ECT yesterday. Describes chest tightness worse with inspiration and coughing. Very mild cough. Bilateral shoulder pain and pain with palpation. Also low back pain. Complains of night sweats last night. Also feels congested. No history of previous symptoms but does have history of asthma and feels this is different. Has not used her albuterol yet. Denies any diarrhea nausea or constipation. Denies a history of seasonal allergies. patient's chest CTA is positive for PE. I evaluated patient and informed her about the results. She undertands and agrees with plan. She is still having some pleuritic mid-chest pain and has dypsnea w/ exertion. VS are stable (normal O2 sat on RA). It seems PE is unprovoked. We will start tx with Lovenox 70 mg SC bid and will need to be transitioned to PO anticoagulation. She was adviced to avoid NSAIDs such ibuprofen (motrin), naproxen while taking anticoagulation as this will increase her risk of bleeding. We will also obtain TTE in am. 02/01 -of note, staff who have known patient throughout the years report that she currently seems to be doing better than she has in the past admissions. It was also explained that patient may have a very hard time acknowledging when she is doing better. 02/02 continue current treatment plan; will order ibuprofen for headache; patient understands ECT is being held for the time being 02/03 On approach, patient lying in bed, awake/Alert x4. She reports that she felt that her left side of her face was drooping and that she had left arm and leg weakness and decreased sensation on both left hand and leg. Patient said this is been happening for the past several days but thought maybe it was normal; however today she dropped a utensil while trying to eat which was worse so she decided to say something Focused neuro exam showed No AMS EOMI; pupils equally round and reactive to accommodation facial asymetry with mild left sided facial droop reduced strength left arm/hand grasp 4/5 reduced strength left lower limb 3/5 decreased senstation to touch left arm and leg Decreased sensation left side of face and forehead reduced strength left foot flexion 3/5 Senior Business Architect contacted hospitalist , stat head/neck CT plus angiogram ordered and patient transferred medical service PLAN: CV q15 min DC Latuda Increased to Vraylar to 4.5 mg daily Cancelled ECT #2 due to new Onset PE Pt started on anticoag -continue Gabapentin -continue Topimax 100mg qhs (discussed with Dr. Flores who reports patient had a good seizure; although Topamax started to help with weight gain from medication side effect, it may also be helping with mood to some degree so will leave for now Numerous failed Med trials: Haldol: got tremor abilify: wt gain risperidone Geodon Cymbalta, Effexor, Lexapro, Pristiq mirtazapine lamictal Medical problems: Orthostatic hypotension Pt with continued, lightheadedness and dizziness, ongoing for many years Continue midodrine CTA showing possible with thinning of semicircular canals bilaterally with question of dehiscence ED contacted ENT who said is likely transient No additional workup or treatment necessary at this time Can follow up outpatient with ENT Thyroid nodule CTA found 1.9 cm left thyroid nodule Outpatient follow-up with thyroid ultrasound Constipation Reports last bowel movement 5 days ago Will give lactulose 30 mg p.o. x1 dose Continue current bowel regimen Patient educated on: diagnosis, medication risk/benefits and medical condition Informed Consent: understands Reason for continued inpatient stay Substantial Risk for: inability to function Time Spent With Patient Time: Total time managing care of this patient today ____ minutes.
[2024-02-04 12:49] VITALS: BP 106/57
[2024-02-04] MEDS: hydrOXYzine HCL 25 MG TABLET PO (12:49)
--- NOTE | 2024-02-04 14:14 | P.DS_ITS ---
DS: Providers Provider Date of Service: 02/04/24 Date of admission: 01/23/24 14:18 Date of discharge: 02/04/24 Primary care physician: Hung Montelongo MD Admitting clinician: Umang Lau Consults: 01/24/24 17:56 Consult to Hospitalist Routine Comment: Consulting Provider: Hospitalist Reason For Exam: risk stratification for ECT 02/04/24 13:45 Consult to Hospitalist Routine Comment: Consulting Provider: Hospitalist Reason For Exam: new lft side factial droop/lft arm/leg weakness Attending physician on discharge: Umang Lau DS: Diagnosis Discharge Diagnosis (1) MDD (major depressive disorder), recurrent, severe, with psychosis: Status: Acute (2) PTSD (post-traumatic stress disorder): Status: Acute DS: Medications Discharge Medications Home Medications: Home Medications ?Medication ?Instructions ?Recorded ?Confirmed lorazepam 1 mg tablet 1 mg PO BID PRN Anxiety 11/02/22 01/23/24 potassium citrate 5 mEq (540 mg) 5 meq PO DAILY 06/13/23 01/23/24 tablet,extended release melatonin 5 mg tablet 5 mg PO BEDTIME PRN Insomnia 07/14/23 01/23/24 mirtazapine 15 mg tablet 15 mg PO BEDTIME 12/05/23 01/23/24 naproxen 500 mg tablet 500 mg PO DAILY 12/05/23 01/23/24 topiramate 100 mg tablet 100 mg PO DAILY 12/05/23 01/23/24 albuterol sulfate 90 mcg/actuation 2 puff inhalation Q6H PRN wheezing 01/23/24 01/23/24 aerosol inhaler (Ventolin HFA) diphenhydramine HCl 25 mg capsule 25 mg PO TID PRN allergies 01/23/24 01/23/24 (Banophen) lurasidone 40 mg tablet 40 mg PO DAILY 01/23/24 01/23/24 pantoprazole 40 mg tablet,delayed 40 mg PO DAILY@0630 01/23/24 01/23/24 release sumatriptan succinate 50 mg tablet 50 mg PO BID PRN Migraine Headache 01/23/24 01/23/24 Previous Rx's ?Medication ?Instructions ?Recorded CPAP device and all related #1 ea 06/03/22 supplies cyanocobalamin (vitamin B-12) 500 500 mcg PO DAILY #30 tabs 02/03/23 mcg tablet nystatin 100,000 unit/mL oral 1 ml PO TID 10 days #30 mL 06/21/23 suspension blood pressure monitor #1 ea 07/13/23 docusate sodium 100 mg capsule 100 mg PO DAILY #30 caps 07/26/23 bisacodyl 5 mg tablet,delayed 10 mg (2 x 5 mg) PO BEDTIME #180 08/30/23 release (Dulcolax (bisacodyl)) tabs rosuvastatin 5 mg tablet 5 mg PO DAILY #90 tabs 08/31/23 cholecalciferol (vitamin D3) 25 25 mcg PO DAILY 90 days #90 caps 09/27/23 mcg (1,000 unit) capsule (Vitamin D3) tramadol 50 mg tablet 100 mg (2 x 50 mg) PO Q8H PRN 11/13/23 severe pain 30 days #180 tabs mometasone 0.1 % topical cream 1 appl topical DAILY PRN rash #45 11/30/23 grams ferrous sulfate 325 mg (65 mg 325 mg PO DAILY #90 tabs 12/31/23 iron) tablet gabapentin 400 mg capsule 800 mg (2 x 400 mg) PO TID 30 days 01/03/24 #180 caps meclizine 25 mg tablet 25 mg PO TID PRN dizziness 30 days 01/04/24 #90 tabs midodrine 10 mg tablet 10 mg PO TID #30 tabs 01/04/24 Mental Status Exam Mental Status Exam Narrative: Pt is alert and oriented; behavior is cooperative, calm, more engaged; patient is not in distress; dressed in casual attire with adequate grooming; mood is described as Depressed.. affect downcast; eye contact appropriate; Speech remains soft volume, slowed rate but is more spontaneous; normal prosody; psychomotor retardation present; thought process is goal oriented; Thought content is on symptoms, tx; otherwise pertinent to relevant topics and without any delusional content, paranoid ideations or grandiosity; no SI; no HI; reports AH is less. Patients insight and judgment impaired Data Data Completed and Pending Completed studies during hospitalization [Text1]: 01/29/24 02/01/24 02/01/24 17:11 13:18 Unknown WBC 7.2 8.1 RBC 3.84 L 4.03 L Hgb 13.0 13.7 Hct 39.5 42.1 MCV 102.9 H 104.5 H MCH 33.9 H 34.0 H MCHC 32.9 32.5 RDW 11.9 12.0 Plt Count 280 281 MPV 9.6 9.7 Immature Gran % (Auto) 0.3 0.4 Neut % (Auto) 57.7 67.1 Lymph % (Auto) 33.0 24.0 Reeves % (Auto) 7.2 6.8 Eos % (Auto) 1.1 1.0 Baso % (Auto) 0.7 0.7 Lymph # (Auto) 2.4 1.9 Reeves # (Auto) 0.5 0.6 Eos # (Auto) 0.1 0.1 Baso # (Auto) 0.1 0.1 Abs Immat Gran (auto) 0.02 0.03 Absolute Neuts (auto) 4.2 5.4 Absolute Nucleated RBC 0.000 0.000 Nucleated RBC % (auto) 0.0 0.0 D-Dimer High Sensitivty 781 Sodium 144 Potassium 3.9 Chloride 117 H Carbon Dioxide 20 L Anion Gap 11 L BUN 17 H Creatinine 1.08 Estim Creat Clear Calc 56.4 Estimated GFR 53 Random Glucose 96 Calcium 9.2 Total Bilirubin 0.2 0.3 Direct Bilirubin < 0.2 AST 20 20 ALT 30 28 Alkaline Phosphatase 139 H 136 H Troponin I High Sens < 2.7 Total Protein 6.5 6.9 Albumin 3.7 3.9 Respiratory Panel [place]co See Note Adenovirus (Rapid PCR) Not Detected B.pert (TEM-PCR) Not Detected B.parapertussis DNA PCR Not Detected C. pneumoniae DNA (PCR) Not Detected Coronavirus OC43 (PCR) Not Detected Coronavirus HKU1 (PCR) Not Detected Coronavirus 229E (PCR) Not Detected Coronavirus NL63 (PCR) Not Detected Human Metapneumovir PCR Not Detected Influenza A (RT-PCR) Not Detected Influenza B (RT-PCR) Not Detected M. pneumoniae (PCR) Not Detected Parainfluenza 1 (PCR) Not Detected Parainfluenza 2 (PCR) Not Detected Parainfluenza 3 (PCR) Not Detected Parainfluenza 4 (PCR) Not Detected RSV (PCR) Not Detected Entero/Rhino (PCR) Not Detected SARS-CoV-2 RNA (RT-PCR) Not Detected Imaging Diagnostic Imaging Impressions Head/Neck CTA 09/23/24 12:43 IMPRESSION: -No acute intracranial hemorrhage or edematous infarct. -No hemodynamically significant stenosis in the major arteries of the neck or intracranial circulation. -Incidentally noted thinning of the superior semicircular canals bilaterally, worse on the right with suggestion of dehiscence. If there is concern for semicircular canal dehiscence, recommend further characterization with dedicated CT of the temporal bones. -A 1.9 cm hypoattenuating nodule in the left thyroid lobe. Based on the recommendations of the ACR Incidental Thyroid Findings Committee (JACR 2015 Jun; 12(2):143-50), further evaluation by thyroid ultrasound is recommended for solitary incidental thyroid nodules greater than or equal to 1.5 cm in largest axial dimension in patients age 35 years and older who do not have limited life expectancy or significant morbidities, unless clinically warranted. Electronically signed by: Luis Armando Smith MD 01/22/2024 02:45 PM EDT RP Abdomen/Pelvis CT 01/25/24 18:13 IMPRESSION: Fluid throughout distal small bowel as well as the ascending and transverse colon, suggesting an element of hypersecretion. Small to moderate amount of stool within the descending and sigmoid colon. Postsurgical changes as above. Additional findings as above. Electronically signed by: Shravan Slaughter MD 01/26/2024 07:38 AM EDT RP Chest CT 02/01/24 08:51 IMPRESSION: 1. There is a 3.2 cm groundglass nodular density in the right middle lobe. 2. There is a 7.1 mm right lower lobe perifissural nodule which has increased in size when compared to the 01/25/2024 study. 3. Other incidental findings as described above. 6. A 6 months follow-up chest CT scan recommended to document the stability of the pulmonary nodules. This is what would be recommended if the patient was in a lung screening program. Fleischner guidelines were followed. Electronically signed by: Diego Oconnell MD 02/01/2024 11:30 AM EDT RP Chest CTA 02/01/24 18:34 IMPRESSION: 1. Pulmonary emboli in the right main pulmonary artery and segmental branches of the right lower lobe. 2. Mild reflux of contrast into the hepatic veins that could indicate elevated right-sided heart pressures. 3. Increased mosaic attenuation of the lung parenchyma compared to earlier today which could be related with air trapping in the setting of small airways disease. 4. Pulmonary nodules are better visualized on the CT chest from earlier today in view of the limitations of motion of the current study, please refer to the prior examination for management recommendations. 5. Simple fluid attenuating 0.9 cm nodule in the right breast, possibly a cyst. Recommend correlation with recent priors dedicated breast imaging and if the patient is due further evaluation with outpatient dedicated breast imaging. 6. Asymmetric enlargement of the left lobe of the thyroid with mild heterogeneity. Recommend further evaluation with outpatient thyroid ultrasound. VTE: positive. This critical result was discussed with Dr. Simms at 02/01/2024 7:27 PM CDT and it was ascertained that the content and urgency of the report was understood at the time of direct communication. Electronically signed by: Ivory Titus MD 02/01/2024 08:27 PM EDT RP Venous Duplex 02/02/24 14:07 IMPRESSION: No evidence of deep venous thrombosis involving the bilateral lower extremities. Electronically signed by: French Gore MD 02/02/2024 02:48 PM EDT RP DS: Summary Hospital Course Hospital Course: Patient is a 53-year-old female with history of MDD with psychotic features (r/o schizoaffective disorder, depressed type) PTSD, borderline traits, kidney cancer (one kidney) who presents for worsening depression and AH. Patient reports that she was feeling overall good enough until about 4 months ago. Without any obvious trigger, and despite continued adherence to medication regimen, she reports that her mood started to decline and AH (which is present independent of mood) became worse. Patient said she started having bad thoughts.. At which she became tearful and would not disclose them. She said her mood got worse and worse and voices told her to hurt herself; she started seeing shadow figures and having horrific nightmares where sometimes she can tell if she was awake or asleep but saw a ball of fire and things burning. AH worsened this past week and so patient self presented. She denies any history of manic type behaviors; ongoing PTSD symptoms. Patient does not remember history of med trials Formulaton/clinical reasoning: Food Service Utility Worker discussed case with patient's outpatient psychiatric provider Dr. Kathleen who has known patient for years. She reports that Patient has long history of depression, frequently severe, intermixed with PTSD symptoms, emotional reactivity; although patient endorses continue AH, Dr. Kathleen does not think necessarily an organic psychotic illness and only symptom is AH (no history of delusional thinking, no disorganized speech or behavior). Pt has had numerous medication trials with only partial response. Discussed treatment approaches and provider agrees that ECT trial is warranted; no benefit from Latuda thus far and although was only at 20 mg, agree to start Vraylar instead which maybe a little more robust in dealing with AH. Patient amenable to changing medications. Fellows? only one kidney so hesitant. Also considerations are OCD/JAMIE Numerous failed Med trials: Haldol: got tremor abilify: wt gain risperidone Geodon Cymbalta, Effexor, Lexapro, Pristiq mirtazapine lamictal Hospital course: 01/24 acute abdominal pain on right side, discussed with hospitalist. ordered CT abdomen/pelvic 01/25 patient had bowel movement however still some right-sided abdominal pain; internal communications writer ordered labs and discussed with hospitalist CJ who said they would follow-up -elevated LFTs/GGT -agrees with increasing Vraylar and undergoing ECT; consent signed 01/28 Patient reporting right lower quadrant abdominal pain which she said started about 2 days ago and has been Ebbing and flowing but increasing in pain which is an 8/10. Point tenderness with some rebound tenderness as well, but no guarding. Patient is only eating a little bit but continues drinking. Also 1 bowel movement a week ago which was small and otherwise only 1 very small 1 today. -vitals WNL and afebrile -no history of appendectomy; denies any history of cholecystectomy -will order CBC and monitor progress; patient will report to staff if pain worsens -will also treat for constipation 01/29with bothersome AH. Patient can not say why she initially said otherwise. Patient said that voices are telling her throughout the day to hit... Hit her referring to female peers. Patient said voice repeats this over and over so she went got headphones to drown it out. She has no plans intentions or urges to hit anyone. Patient asked about clozapine; discussed medication management options and for now She agrees to increasing Vraylar and to going forward with ECT. -Pain in abdomen remains but is less;WBC WNL; remains Afebrile and thus low concern for appendicitis will continue treating for constipation 01/30 post ECT, patient quiet, with headache; otherwise said procedure was fine and no problems; wants to continue; remains depressed with AH 01/31 Reports continued depression, anxiety and AH which she says is a little worse today. That said, patient seems more relaxed, is smiling more and engaged more, going to groups, talking more spontaneously; no other complaints. Discussed ECT and patient wants to continue. -continue current treatment plan 02/01 remains depressed with AH; says continued CP Pulmonary embolism: last night (01/31) Hospitalist: pt c/o pleuritic chest pain back pain and left shoulder pain starting last night. Had ECT yesterday. Describes chest tightness worse with inspiration and coughing. Very mild cough. Bilateral shoulder pain and pain with palpation. Also low back pain. Complains of night sweats last night. Also feels congested. No history of previous symptoms but does have history of asthma and feels this is different. Has not used her albuterol yet. Denies any diarrhea nausea or constipation. Denies a history of seasonal allergies. patient's chest CTA is positive for PE. I evaluated patient and informed her about the results. She undertands and agrees with plan. She is still having some pleuritic mid-chest pain and has dypsnea w/ exertion. VS are stable (normal O2 sat on RA). It seems PE is unprovoked. We will start tx with Lovenox 70 mg SC bid and will need to be transitioned to PO anticoagulation. She was adviced to avoid NSAIDs such ibuprofen (motrin), naproxen while taking anticoagulation as this will increase her risk of bleeding. We will also obtain TTE in am. 02/01 -of note, staff who have known patient throughout the years report that she currently seems to be doing better than she has in the past admissions. It was also explained that patient may have a very hard time acknowledging when she is doing better. 02/02 continue current treatment plan; will order ibuprofen for headache; patient understands ECT is being held for the time being Transferred to medical floor: 02/03 On approach, patient lying in bed, awake/Alert x4. She reports that she felt that her left side of her face was drooping and that she had left arm and leg weakness and decreased sensation on both left hand and leg. Patient said this is been happening for the past several days but thought maybe it was normal; however today she dropped a utensil while trying to eat which was worse so she decided to say something Focused neuro exam showed No AMS EOMI; pupils equally round and reactive to accommodation facial asymetry with mild left sided facial droop reduced strength left arm/hand grasp 4/5 reduced strength left lower limb 3/5 decreased senstation to touch left arm and leg Decreased sensation left side of face and forehead reduced strength left foot flexion 3/5 Food Service Utility Worker contacted hospitalist , stat head/neck CT plus angiogram ordered and patient transferred medical service Time spent discussing smoking cessation with patient: 3 to 10 minutes Status at Discharge Functional status at discharge: independent ambulation Overall status at discharge: patient is not back to baseline Time Spent with Patient Time attestation: Total time managing care of this patient today _50___ minutes. Time spent: Greater than 30 minutes Specific discharge activities: Met with patient; discussed with team; exam, transfer patient to ED, charting Discharge Plan Discharge Anticipated Discharge Date/Time: 02/04/24 14:14 Patient Disposition: Xfer Other Discharge Diagnosis: MDD Referrals: Hung Montelongo MD [Primary Care Provider] - 1 Week Discharge Medications: Continued (DME) CPAP device and all related supplies See Rx Instructions .Route .MEDSUPPLY Qty: 1 0RF Rx Instructions: As directed (DME) blood pressure monitor Kit See Rx Instructions .ROUTE .MEDSUPPLY Qty: 1 0RF Rx Instructions: As directed rosuvastatin 5 mg tablet 5 mg PO DAILY Qty: 90 1RF cholecalciferol (vitamin D3) [Vitamin D3] 25 mcg (1,000 unit) capsule 25 mcg PO DAILY 90 Days Qty: 90 3RF tramadol 50 mg tablet 100 mg PO Q8H PRN (Reason: severe pain) 30 Days Qty: 180 0RF mometasone 0.1 % cream 1 appl topical DAILY PRN (Reason: rash) Qty: 45 1RF ferrous sulfate 325 mg (65 mg iron) tablet 325 mg PO DAILY Qty: 90 0RF gabapentin 400 mg capsule 800 mg PO TID 30 Days Qty: 180 0RF midodrine 10 mg tablet 10 mg PO TID Qty: 30 1RF Rx Instructions: do not give last dose of day after 6PM or within 4 hrs of bedtime meclizine 25 mg tablet 25 mg PO TID PRN (Reason: dizziness) 30 Days Qty: 90 1RF cyanocobalamin (vitamin B-12) 500 mcg Tablet 500 mcg PO DAILY Qty: 30 0RF pantoprazole 40 mg tablet,delayed release (DR/EC) 40 mg PO DAILY@0630 diphenhydramine HCl [Banophen] 25 mg capsule 25 mg PO TID PRN (Reason: allergies) lurasidone 40 mg tablet 40 mg PO DAILY sumatriptan succinate 50 mg tablet 50 mg PO BID PRN (Reason: Migraine Headache) albuterol sulfate [Ventolin HFA] 90 mcg/actuation HFA aerosol inhaler 2 puff inhalation Q6H PRN (Reason: wheezing) melatonin 5 mg tablet 5 mg PO BEDTIME PRN (Reason: Insomnia) lorazepam 1 mg tablet 1 mg PO BID PRN (Reason: Anxiety) nystatin 100,000 unit/mL suspension 1 ml PO TID 10 Days Qty: 30 0RF Rx Instructions: swish and swallow docusate sodium 100 mg capsule 100 mg PO DAILY Qty: 30 3RF bisacodyl [Dulcolax (bisacodyl)] 5 mg tablet,delayed release (DR/EC) 10 mg PO BEDTIME Qty: 180 4RF topiramate 100 mg tablet 100 mg PO DAILY mirtazapine 15 mg tablet 15 mg PO BEDTIME naproxen 500 mg tablet 500 mg PO DAILY potassium citrate 5 mEq (540 mg) tablet extended release 5 meq PO DAILY Discontinued nitrofurantoin monohyd/m-cryst 100 mg capsule 1 cap PO BID Patient Comments: patient took this morning. needs to take tonight Discharge Orders: Discharge Order (Routine); Ordered 02/04/24 Ordered By: Umang Lau Diet: deferred Activity on Discharge: As tolerated Stand Alone Forms: Patient Portal Discharge page Print Language: Occitan Care Plan Goals: transferred to medical floor Health Concerns: transferred to medical floor Plan of Treatment: transferred to medical floor Assessment: transferred to medical floor
[2024-02-04] MEDS: iohexoL 350 MG/ML 100 ML INFUS..BTL 65 ML IV (14:38)
--- NOTE | 2024-02-04 15:00 | PC.NURSE ---
At approximately 13:[address] Lau that she's been experiencing facial numbness and left sided weakness. Dr Lau called the covering hospitalist, Racheal Obregon. Hospitalist entered orders for Head CT for stroke STAT.
--- NOTE | 2024-02-04 15:13 | PC.NURSE ---
14:25 --Consent for IV contrast was reviewed/signed with patient and market research specialist. Patient was transported to CT Scan at approximately 14:25.
--- NOTE | 2024-02-04 15:24 | PC.NURSE ---
14:14 --electrical installation supervisor gave a name of receiving RN Nasreen on [facility]. 14:25 --This movie writer attempted to call report at 14:25 and was told they were not expecting this patient. Finisher Polisher requested that RN please call [facility] for report when they get the info. 14:50 --Director Of Marketing [employer] states that [facility] is ready for report. Report called at 14:51 to DALILA Downey on [facility].
== END 2024-02-04 14:30 | disposition other institution (70) | DRG 751 ==
LOC: HO.ED 01-23 03:10 → HO.PM5 01-23 14:44
PROVIDERS: Physician Assistant; Psychiatry & Neurology Psychiatry; Admitting Provider Psychiatry & Neurology Psychiatry; Emergency Provider Emergency Medicine Emergency Medical Services; PCP Internal Medicine; Visit Provider Psychiatry & Neurology Psychiatry
PROC: GZB4ZZZ Other Electroconvulsive Therapy (ICD-10-PCS; CPT 90870; principal; 2024-01-31 07:00)
DX: F33.3 Major depressive disorder, recurrent, severe with psychotic symptoms (principal); I26.99 Other pulmonary embolism without acute cor pulmonale; E04.1 Nontoxic single thyroid nodule; F43.10 Post-traumatic stress disorder, unspecified; G47.33 Obstructive sleep apnea (adult) (pediatric); J45.909 Unspecified asthma, uncomplicated; I95.1 Orthostatic hypotension; K59.00 Constipation, unspecified; Z98.84 Bariatric surgery status; Z90.5 Acquired absence of kidney; Z20.822 Contact with and (suspected) exposure to COVID-19; Z79.899 Other long term (current) drug therapy
CPT/HCPCS: 0241U; 36415; 70450; 70496; 70498; 71250; 71275; 74176; 80053; 80061; 80076; 80307; 81001; 82140; 82977; 83036; 83690; 83735; 84443; 84484; 85025; 85379; 85652; 87633; 90656; 90870; 93005; 93306; 93970; 94660; 99285; 99499; J0330; J1650; J2060; Q9967; S9485

== ENCOUNTER 2024-01-23 14:18 | Outpatient (BNV) | payer OTHER, SELFPAY | END 2024-02-02 07:00 | PROVIDERS: Admitting Provider Psychiatry & Neurology Psychiatry; Emergency Provider Emergency Medicine Emergency Medical Services; PCP Internal Medicine; Visit Provider Internal Medicine Cardiovascular Disease | DX: I26.99 Other pulmonary embolism without acute cor pulmonale (principal) | CPT/HCPCS: 93306 ==

== ENCOUNTER → 2024-01-23 14:18 | Outpatient (BNV) | payer OTHER, SELFPAY | PROVIDERS: Admitting Provider Psychiatry & Neurology Psychiatry; Emergency Provider Emergency Medicine Emergency Medical Services; PCP Internal Medicine; Visit Provider Psychiatry & Neurology Psychiatry | DX: F33.3 Major depressive disorder, recurrent, severe with psychotic symptoms (principal); F43.10 Post-traumatic stress disorder, unspecified | CPT/HCPCS: 90792; 90870; 99231; 99232; 99239; 99499 ==

== ENCOUNTER → 2024-01-23 14:18 | Outpatient (BNV) | payer OTHER, SELFPAY | PROVIDERS: Admitting Provider Psychiatry & Neurology Psychiatry; Emergency Provider Emergency Medicine Emergency Medical Services; PCP Internal Medicine; Visit Provider Student in an Organized Health Care Education/Training Program | DX: Z00.8 Encounter for other general examination (principal) | CPT/HCPCS: 99221; 99429; 99499 ==

== ENCOUNTER 2024-02-04 14:18 | Inpatient (IN) | payer OTHER, SELFPAY ==
--- NOTE | ~2024-02-04 | MR_ITS ---
EXAMINATION: MR BRAIN WITHOUT CONTRAST CLINICAL INFORMATION: Left-sided deficits. Cerebrovascular accident. COMPARISON: CT head and neck from 02/04/2024. TECHNIQUE: MRI of the brain was obtained using routine sequences without contrast. FINDINGS: No focal restricted diffusion is demonstrated to suggest acute or subacute cerebral ischemia. No evidence of acute or chronic hemorrhagic products on heme-sensitive imaging. Scattered periventricular and deep white matter T2 FLAIR hyperintensities most commonly seen with mild underlying microangiopathy. The ventricles are normal in morphology and size. No abnormal mass effect. No midline shift. Normal appearance of the pituitary gland. Normal positioning of the cerebellar tonsils. Normal arterial and venous vascular flow voids are present. Normal, homogeneous marrow signal. Mild mucosal thickening of the paranasal sinuses. No signal abnormalities within the mastoids. MR/MR head/brain wo con IMPRESSION: 1. No acute intracranial abnormalities. 2. Mild nonspecific white matter changes most commonly seen with mild underlying microangiopathy. Electronically signed by: Godfrey Harden DO 02/04/2024 07:18 PM EDT
--- NOTE | ~2024-02-04 | US_ITS ---
EXAMINATION: US ABDOMEN LIMITED CLINICAL INFORMATION: Elevated LFTs.. COMPARISON: Collated to CT abdomen dated January 25, 2024. TECHNIQUE: Real-time imaging of the right upper quadrant abdominal viscera using grayscale and color Doppler technique.. FINDINGS: Exam submitted for interpretation on February 26, 2024. LIVER: Liver has coarse echotexture. There is a 1 cm hyperechoic lesion in the periphery of the right hepatic lobe . The main portal vein is patent with normal hepatopedal flow direction. The interrogated hepatic veins are patent with normal hepatofugal flow direction.. Main hepatic artery is patent. Systolic velocity measures 103 cm/s. No intrahepatic biliary ductal dilatation. Spleen measures 8 cm. The interrogated main splenic vessels are patent. No ascites. There is a 5.2 cm septated the exophytic anechoic lesion, upper pole right kidney. US/US duplex arterial venous comp IMPRESSION: Normal patency and flow directions of the interlobar vessels, liver and spleen. No ascites. 5.2 cm septated exophytic cystic lesion, right kidney. Limited examination. Electronically signed by: Ta Flynn MD 02/26/2024 01:11 PM EDT
--- NOTE | ~2024-02-04 | US_ITS ---
EXAMINATION: US ABDOMEN LIMITED CLINICAL INFORMATION: Elevated LFTs.. COMPARISON: Collated to CT abdomen dated January 25, 2024. TECHNIQUE: Real-time imaging of the right upper quadrant abdominal viscera using grayscale and color Doppler technique.. FINDINGS: Exam submitted for interpretation on February 26, 2024. LIVER: Liver has coarse echotexture. There is a 1 cm hyperechoic lesion in the periphery of the right hepatic lobe . The main portal vein is patent with normal hepatopedal flow direction. The interrogated hepatic veins are patent with normal hepatofugal flow direction.. Main hepatic artery is patent. Systolic velocity measures 103 cm/s. No intrahepatic biliary ductal dilatation. Spleen measures 8 cm. The interrogated main splenic vessels are patent. No ascites. There is a 5.2 cm septated the exophytic anechoic lesion, upper pole right kidney. US/US abdomen limited IMPRESSION: Normal patency and flow directions of the interlobar vessels, liver and spleen. No ascites. 5.2 cm septated exophytic cystic lesion, right kidney. Limited examination. Electronically signed by: Ta Flynn MD 02/26/2024 01:11 PM EDT
--- NOTE | 2024-02-04 14:51 | P.HPHOSP_ITS ---
History of Present Illness Date of Service: 02/04/24 Attending physician on admission: Abhishek Yates Chief Complaint: Left-sided numbness and weakness, ?CVA Pt is a 53-year-old Dominican-speaking female with a PMH significant for asthma, HLD, orthostatic hypotension, hx of nephrectomy, gastric bypass, hernia repair, migraines, GERD, anxiety, depression, and schizophrenia who was admitted to Psychiatric unit for increasing depression and SI. Pt has been seen and evaluated by medicine multiple times since on the unit, initially for ECT risk stratification. After first ECT pt complained of chest pain and SOB, and CTA of chest was positive for pulmonary emboli in the right main pulmonary artery and segmental branches of right lower lobe on 01/31. Was started on therapeutic Lovenox 70 mg subq b.i.d. Today hospitalist consult was placed for left-sided numbness, weakness, and facial droop. Patient reports has been experiencing left-sided numbness and weakness of face, upper extremity, and lower extremity for the past 2-3 days. States yesterday she was having difficulty holding onto items such as her milk or spoon which she kept dropping. Also reports having difficulty swallowing, blurriness of vision, shortness of breath, pleuritic chest pain, nonproductive cough, chills, and occipital headache during this time period, as well as difficulty speaking and moments of confusion. Patient will be admitted to the medical services for treatment and additional workup for left-sided deficits concerning for CVA versus complex migraine. Review of Systems 2 Review of Systems: Numerous complaints as listed above [facility] Medical History Chronic kidney disease, stage III (moderate) Obesity (BMI 30-39.9) Renal cyst Diverticulosis Tubular adenoma Asthma Spondylosis of lumbar spine Sacroiliitis Dizziness of unknown etiology Chronic constipation Hx of schizophrenia Panic attacks PTSD (post-traumatic stress disorder) Dyspareunia Pyelonephritis Ingrown toenail Iron deficiency anemia Major depression, recurrent Anxiety Insomnia Tremor Orthostatic hypotension Incisional hernia without obstruction or gangrene Avascular necrosis of femoral head Bilateral carpal tunnel syndrome Peroneal neuropathy Lumbar degenerative disc disease Vitamin D deficiency GERD (gastroesophageal reflux disease) Migraine Hyperlipidemia Family History Father Liver cancer Mother Breast cancer Sister Lung cancer Other Mental health problem Surgical History History of left nephrectomy (~1999) History of colonoscopy History of surgery Hx of cystoscopy History of bilateral breast reduction surgery History of hysterectomy History of cholecystectomy History of endoscopy (~06/2016) History of bladder repair surgery (~03/2015) S/P cystoscopy (~07/30/12) S/P panniculectomy History of hernia repair (~03/29/10) History of bladder surgery (~10/2009) History of gastric bypass (~2008) History of incisional hernia repair (~1999) Hx of umbilical hernia repair (~1999) H/O left nephrectomy S/P laparoscopic sleeve gastrectomy Social History Household Members: Spouse Housing: House Do you presently have visiting nurse or other home services: No Alcohol intake: never Comment: sitter @ bedside Patient Tobacco Use Status: Never used Tobacco e-Cigarette/Vaping Use: Never Used Second Hand Smoke Exposure: No Use of substances other than those prescribed or required for medical reasons: No Currently Displaying Signs/Symptoms of Drug Intoxication Withdrawal: No Have you been hit, kicked, punched, or otherwise hurt by someone within the past year? If so, by whom?: No Do you feel safe in your current relationship?: Yes Is there a partner from a previous relationship who is making you feel unsafe now?: No Are you made to feel afraid or neglected: No Advance Directives: Yes Advance Directives on File: Yes Advance Directives Date on File: 07/12/21 Do you have a plan to hurt others: No Plan Recently lost weight without trying: No How much weight loss: Not applicable Eating poorly because of decreased appetite: No Nutrition screen score: 0 Nutrition Risks: No Nutritional Risk Patient : No : No Poor oral hygiene: No service: No Current occupational status: disabled Sexual orientation: Straight/Heterosexual Cognitive needs: No Hearing needs: No Vision needs: Yes Meds Allergies Allergy/AdvReac Type Severity Reaction Status Date / Time acetaminophen AdvReac Unknown Unknown Verified 01/22/24 09:01 atorvastatin AdvReac Severe elevated Uncoded 01/22/24 09:01 liver enzymes Active Medications: Current Medications Benzonatate (Benzonatate 100 Mg Capsule) 100 mg PO TID PRN PRN Reason: Cough Calcium Carbonate (Calcium Carbonate 750 Mg Tab.Chew) 750 mg PO Q4H PRN PRN Reason: Heartburn Magnesium Hydroxide (Milk Of Magnesia 30 Ml Oral.Susp) 30 ml PO DAILY PRN PRN Reason: Constipation Melatonin (Melatonin 3 Mg Tablet) 6 mg PO BEDTIME PRN PRN Reason: Insomnia Ondansetron HCl (Ondansetron Hcl 4 Mg/2 Ml Vial) 4 mg IVPUSH Q8H PRN PRN Reason: Nausea and Vomiting Pravastatin Sodium (Pravastatin Sodium 40 Mg Tablet) 40 mg PO DAILY [facility] Sodium Chloride (0.9 % Sodium Chloride Flush 3 Ml Syringe) 3 ml [facility]USH [facility] Medications ?Medication ?Instructions ?Recorded ?Confirmed ?Last Taken ?Type lorazepam 1 mg tablet 1 mg PO BID PRN Anxiety 11/02/22 02/04/24 Unknown History potassium citrate 5 mEq (540 mg) 5 meq PO DAILY 06/13/23 02/04/24 01/21/24 History tablet,extended release melatonin 5 mg tablet 5 mg PO BEDTIME PRN Insomnia 07/14/23 02/04/24 Unknown History mirtazapine 15 mg tablet 15 mg PO BEDTIME 12/05/23 02/04/24 01/21/24 History naproxen 500 mg tablet 500 mg PO DAILY 12/05/23 02/04/24 01/21/24 History topiramate 100 mg tablet 100 mg PO DAILY 12/05/23 02/04/24 Unknown History albuterol sulfate 90 mcg/actuation 2 puff inhalation Q6H PRN wheezing 01/23/24 02/04/24 Unknown History aerosol inhaler (Ventolin HFA) diphenhydramine HCl 25 mg capsule 25 mg PO TID PRN allergies 01/23/24 02/04/24 Unknown History (Banophen) lurasidone 40 mg tablet 40 mg PO DAILY 01/23/24 02/04/24 01/21/24 History pantoprazole 40 mg tablet,delayed 40 mg PO DAILY@0630 01/23/24 02/04/24 01/21/24 History release sumatriptan succinate 50 mg tablet 50 mg PO BID PRN Migraine Headache 01/23/24 02/04/24 Unknown History Physical Exam 2 Vital Signs and Narrative: General: AOx3, no acute distress Resp: CTA bilaterally CVS: S1, S2, RRR GI: +BS, NT, no distention Skin: Warm, dry Neuro: Motor grossly intact bilaterally, though with noted left-sided upper and lower extremity weakness. Reduced sensation to light touch of left face, upper and lower extremity. No pronator drift. No slurred speech. No clear facial droop. Extremities: No edema Psych: Flat affect Results Labs 02/04/24 17:04 02/05/24 05:35 Assessment and Plan (1) Left-sided weakness: Status: Acute Plan Pt is a 53-year-old Dominican-speaking female with a PMH significant for asthma, HLD, orthostatic hypotension, hx of nephrectomy, gastric bypass, hernia repair, migraines, GERD, anxiety, depression, and schizophrenia who was admitted to [facility] unit for increasing depression and SI. Patient will be admitted to the medical services for treatment and additional workup for left-sided deficits concerning for CVA versus complex migraine. Left-sided deficits Pt with left-sided numbness and weakness of face, upper and lower extremities x2-3 days Also complains of blurriness, difficulty swallowing and speaking, fogginess of thinking CT of head and CTA of head/neck negative for acute stenosis or intracranial abnormality Concerning for CVA vs complex migraine Will get MRI of head/brain Lipid profile from 01/23 shows mildly elevated cholesterol of 208 and LDL of 129 Pravastatin while in the hospital Echo bubble study PT/OT evaluation Neurology consult Cardiac diet Monitor on telemetry Pulmonary emboli PE in right main pulmonary artery and segmental branches of right lower lobe identified on 01/31 Continue therapeutic Lovenox b.i.d. Transaminitis AST 181, ALT 525, alk-phos 172 LFTs have been chronically elevated in the past Unclear etiology Patient currently denies abdominal pain Abd US GI consult Trend LFTs Hyperkalemia, mild Potassium 5.4 with slight hemolysis Will repeat potassium Lokelma as necessary Orthostatic hypotension Pt with continued lightheadedness and dizziness, ongoing for many years Continue midodrine CTA showing possible with thinning of semicircular canals bilaterally with question of dehiscence ED contacted ENT who said is likely transient No additional workup or treatment necessary at this time Can follow up outpatient with ENT Thyroid nodule CTA found 1.9 cm left thyroid nodule Outpatient follow-up with thyroid ultrasound Chronic constipation/IBS Continue current bowel regimen Follows with GI outpatient Asthma Not in acute exacerbation Continue home inhaler Migraines Continue sumatriptan and topiramate MIGUEL CPAP at night Mood disorder Continue home meds Full Code Attending:?Dr. Yates DVT Prophylaxis: On therapeutic Lovenox Pt will require a hospitalization of at least two nights for treatment of?left- sided deficits concerning for acute CVA versus complex migraine. Patient require additional workup and imaging, as well as close monitoring of cardiac function and specialist consultation with Neurology. Quality Stroke Does the patient have a stroke diagnosis?: No VTE Prior VTE?: No VTE Risk Level:: Medical - moderate - high VTE Device Contraindication: Treatment Not Indicated VTE Drug Contraindication: N/A - Med Ordered
[2024-02-04 15:26] VITALS: BMI 29.5
[2024-02-04 15:32] VITALS: BP 148/69; PULSE 56; RESP 12; TEMP 36.1; O2SAT 98
[2024-02-04 15:34] VITALS: BP 148/69; PULSE 56; RESP 14; TEMP 36; O2SAT 98
[2024-02-04 16:43] VITALS: BMI 29.5
[2024-02-04 16:47] LABS: Alanine Aminotransferase 525 U/L (0-31); Albumin Level 3.3 g/dL (3.5-5.0); Alkaline Phosphatase 172 U/L (39-117); Anion Gap 12 (12-20); Aspartate Amino Transferase 181 U/L (5-31); Bilirubin Total 0.3 mg/dL (0.0-1.0); Blood Urea Nitrogen 20 mg/dL (9-16); Calcium 9.1 mg/dL (8.4-10.2); Carbon Dioxide 20 mmol/L (22-29); Chloride 114 mmol/L (96-108); Creatinine Clr Calc Pharmacy 55.3; Estimated Glomerular Filt Rate 50; Glucose Random 103 mg/dL (60-115); Potassium 5.4 mmol/L (3.3-5.1); Sodium 141 mmol/L (135-145); Total Protein 6.3 g/dL (6.5-8.0)
--- NOTE | 2024-02-04 17:08 | PHA.MEDREC ---
Pharmacy Consult ? Medication Reconciliation Pharmacy has completed the medication reconciliation. UTILIZED DISCHARGE PACKET FROM TODAY (02/04/24)
[2024-02-04 17:13] LABS: Hematocrit 39.6 % (37.0-47.0); Hemoglobin 13.1 g/dl (12.0-16.0); Mean Corpuscular HGB Conc 33.1 g/dl (31.0-35.0); Mean Corpuscular Hemoglobin 34.1 pg (27.0-33.0); Mean Corpuscular Volume 103.1 fL (80.0-98.0); Mean Platelet Volume 10.4 fL (9.4-12.3); PLT CLUMP 1; Red Blood Count 3.84 X10*6/uL (4.20-5.50); Red Cell Distribution Width 12.1 % (11.0-16.0)
[2024-02-04] MEDS: Midodrine HCl 10 MG TABLET PO (17:21)
[2024-02-04] MEDS: 0.9 % Sodium Chloride Flush 3 ML SYRINGE IVFLUSH (17:22)
[2024-02-04] MEDS: SUMAtriptan succinate 50 MG TABLET PO (17:24)
[2024-02-04] MEDS: Benzonatate 100 MG CAPSULE PO (17:24)
[2024-02-04] MEDS: oxyCODONE HCl Immed Release 5 MG TABLET PO (17:27)
[2024-02-04 17:37] LABS: Platelet Count 210 X10*3/uL (160-400); White Blood Count 7.4 X10*3/uL (4.8-10.8)
[2024-02-04 18:04] LABS: INTERNATIONAL NORM RATIO 0.9 (0.9-1.1); Prothrombin Time 10.7 SEC (10.9-12.4)
--- NOTE | 2024-02-04 18:19 | PC.NURSE ---
Patient transferred from via wheelchair. Admission assessment completed with in person ironworker apprentice. sitter at bedside for thoughts of SI/HI per pt Sometimes voices in my head tell me to harm myself or other people 20G in L AC. Tele monitor ordered and on, Sinus micheal on tele. Pt complaint of migraine headache, abd pain, and cough. Pt medicated per JUN.
[2024-02-04 19:29] VITALS: BP 131/69; PULSE 54; RESP 18; TEMP 36.8; O2SAT 95
[2024-02-04] MEDS: traMADoL HCL 50 MG TABLET 100 MG PO (19:44)
[2024-02-04 20:54] LABS: Potassium 4.6 mmol/L (3.3-5.1)
[2024-02-04] MEDS: diphenhydrAMINE HCL 25 MG CAPSULE 50 MG PO (21:11)
[2024-02-04] MEDS: Gabapentin 400 MG CAPSULE 800 MG PO (21:12)
[2024-02-04] MEDS: Enoxaparin Sodium 80 MG/0.8 ML SYRINGE 70 MG SUBCUT (21:12)
[2024-02-04] MEDS: Mirtazapine 15 MG TABLET PO (21:12)
[2024-02-04] MEDS: bisacodyL 5 MG TABLET.DR 10 MG PO (21:12)
[2024-02-04] MEDS: hydrOXYzine HCL 25 MG TABLET PO (21:17)
[2024-02-04 22:27] VITALS: PULSE 56; RESP 14; O2SAT 98
[2024-02-04 23:10] VITALS: BP 105/67; PULSE 57; RESP 16; TEMP 36.5; O2SAT 98
[2024-02-05] MEDS: Meclizine HCl 25 MG TABLET PO (00:03)
[2024-02-05] MEDS: oxyCODONE HCl Immed Release 5 MG TABLET PO ×5 (02:08→21:04)
[2024-02-05] MEDS: Melatonin 3 MG TABLET 9 MG PO ×2 (02:09→21:28)
[2024-02-05] MEDS: 0.9 % Sodium Chloride Flush 3 ML SYRINGE IVFLUSH ×3 (02:09→16:13)
[2024-02-05 02:15] VITALS: BP 108/62; PULSE 55; RESP 16; TEMP 36.2; O2SAT 96
[2024-02-05] MEDS: Milk of Magnesia 30 ML ORAL.SUSP PO (06:27)
[2024-02-05] MEDS: hydrOXYzine HCL 25 MG TABLET PO ×2 (06:27→18:06)
[2024-02-05 06:46] LABS: Alanine Aminotransferase 467 U/L (0-31); Albumin Level 3.4 g/dL (3.5-5.0); Alkaline Phosphatase 183 U/L (39-117); Anion Gap 8 (12-20); Aspartate Amino Transferase 142 U/L (5-31); Bilirubin Total 0.4 mg/dL (0.0-1.0); Blood Urea Nitrogen 16 mg/dL (9-16); Calcium 8.7 mg/dL (8.4-10.2); Carbon Dioxide 24 mmol/L (22-29); Chloride 113 mmol/L (96-108); Creatinine Clr Calc Pharmacy 66.6; Estimated Glomerular Filt Rate > 60; Glucose Random 90 mg/dL (60-115); Potassium 4.3 mmol/L (3.3-5.1); Sodium 141 mmol/L (135-145); Total Protein 6.1 g/dL (6.5-8.0)
--- NOTE | 2024-02-05 07:00 | CA_ITS ---
Transthoracic Echocardiogram Patient (Last, First, Middle): Xenia Graves E Gender: Female Date of : 1970 Age: 53 Procedure Date: 02/05/2024 Procedure Type: Transthoracic Echocardiogram Location: [facility] Height: 160.02 cm Weight: 75.3 kg BSA: 1.79 m2 Heart Rate: 56 bpm BP: 148 / 69 mmHg Corporate Development Intern: JAROD Arnold MD: Racheal CORONA Fly Fishing Guide: Anderson Vargas MD Symptoms: Left-sided defecits, ?CVA, need bubble Study Quality: Fair, Limited by order ECG Rhythm: Bradycardia Conclusions: - No clear evidence of PFO on this study Findings [facility] There is no evidence of interatrial shunt by agitated saline. There is no evidence of a patent foramen ovale. Updated in Other Vendor System with Status of Final Anderson Vargas MD electronically signed on 02/05/2024 11:53:14 AM with status of Final
--- NOTE | 2024-02-05 07:09 | P.CNGI_ITS ---
History of Present Illness Data of Consult Service Date: 02/05/24 Primary Care Provider: Unknown Physician HPI Reason for consult: abn LFT 53-year-old Armenian-speaking female with a PMH significant for asthma, HLD, orthostatic hypotension, hx of nephrectomy, gastric bypass, hernia repair, migraines, GERD, anxiety, depression, and schizophrenia who I am seeing for assessment for abn LFT. Patient was initially admitted to [facility] for increasing depression and SI. she had aso been diagnosed with recent PTE 01/31 and placed on rx. Overnight she was c/o 2-3 d of worsening numbness of whole left side of body and was transferred to medical floor. Other symptoms were reported such as difficulty swallowing, blurriness of vision, shortness of breath, pleuritic chest pain, nonproductive cough, chills, and occipital headache. she also noted arthrlagia with lower back pain for 5-6 d with urine hesitancy but no dysuria. During assessment, LFT noted to be elevated with ASt, ALT in low hundreds and mild alk phos elevation. Reviewing prior results she has had waxing and waning LFT with epiosdes of nml LFT in between. denies jaundice, dark urine or itching, illicit drug use. CT and MRI head--no acute findings, nodular thyroid gland noted Review of Systems 2 Review of Systems: Constitutional : No Weight loss, No Fever, No Chills ENT/Mouth : No sore throat, No Rhinorrhea Eyes: No Swelling, No Redness Cardiovascular : No Chest Pain, No SOB, No Edema Respiratory : No Cough, No Sputum, No Wheezing Gastrointestinal : see HPI Genitourinary : NO Dysuria, No Urinary Frequency, No Hematuria, No Urgency Musculoskeletal : + joint pain, No Myalgias, No Joint Swelling Skin : No Skin Lesions, No rash Neuro : + Weakness, + Numbness, No Dizziness, + Headache Psych : No Anxiety/Panic, No Depression Heme/Lymph: No Bruising, No Lymphadenopathy Endocrine : No Polyuria, No Polydipsia All other systems reviewed and are negative. [facility] Past Medical History Medical History Chronic kidney disease, stage III (moderate) Obesity (BMI 30-39.9) Renal cyst Diverticulosis Tubular adenoma Asthma Spondylosis of lumbar spine Sacroiliitis Dizziness of unknown etiology Chronic constipation Hx of schizophrenia Panic attacks PTSD (post-traumatic stress disorder) Dyspareunia Pyelonephritis Ingrown toenail Iron deficiency anemia Major depression, recurrent Anxiety Insomnia Tremor Orthostatic hypotension Incisional hernia without obstruction or gangrene Avascular necrosis of femoral head Bilateral carpal tunnel syndrome Peroneal neuropathy Lumbar degenerative disc disease Vitamin D deficiency GERD (gastroesophageal reflux disease) Migraine Hyperlipidemia Family History Family History Father Liver cancer Mother Breast cancer Sister Lung cancer Other Mental health problem Surgical History Surgical History History of left nephrectomy (~1999) History of colonoscopy History of surgery Hx of cystoscopy History of bilateral breast reduction surgery History of hysterectomy History of cholecystectomy History of endoscopy (~06/2016) History of bladder repair surgery (~03/2015) S/P cystoscopy (~07/30/12) S/P panniculectomy History of hernia repair (~03/29/10) History of bladder surgery (~10/2009) History of gastric bypass (~2008) History of incisional hernia repair (~1999) Hx of umbilical hernia repair (~1999) H/O left nephrectomy S/P laparoscopic sleeve gastrectomy Social History Social History Household Members: Spouse Housing: House Do you presently have visiting nurse or other home services: No Alcohol intake: never Comment: sitter @ bedside Patient Tobacco Use Status: Never used Tobacco e-Cigarette/Vaping Use: Never Used Second Hand Smoke Exposure: No Use of substances other than those prescribed or required for medical reasons: No Currently Displaying Signs/Symptoms of Drug Intoxication Withdrawal: No Have you been hit, kicked, punched, or otherwise hurt by someone within the past year? If so, by whom?: No Do you feel safe in your current relationship?: Yes Is there a partner from a previous relationship who is making you feel unsafe now?: No Are you made to feel afraid or neglected: No Advance Directives: Yes Advance Directives on File: Yes Advance Directives Date on File: 07/12/21 Do you have a plan to hurt others: No Plan Recently lost weight without trying: No How much weight loss: Not applicable Eating poorly because of decreased appetite: No Nutrition screen score: 0 Nutrition Risks: No Nutritional Risk Patient : No : No Poor oral hygiene: No service: No Current occupational status: disabled Sexual orientation: Straight/Heterosexual Cognitive needs: No Hearing needs: No Vision needs: Yes Meds Allergies Allergy/AdvReac Type Severity Reaction Status Date / Time acetaminophen AdvReac Unknown Unknown Verified 01/22/24 09:01 atorvastatin AdvReac Severe elevated Uncoded 01/22/24 09:01 liver enzymes Active Medications: Current Medications Al Hydroxide/Mg Hydroxide (Magnesium Hydrox/Alum Hydrox 30 Ml Oral.Susp) 30 ml PO Q6H PRN PRN Reason: Heartburn/Nausea Albuterol Sulfate (Albuterol Sulfate 90 Mcg 8 Gm Inhaler) 2 puff INHALE Q6H PRN PRN Reason: Shortness of Breath/Wheezing Benzonatate (Benzonatate 100 Mg Capsule) 100 mg PO TID PRN PRN Reason: Cough Last Admin: 02/04/24 17:24 Dose: 100 mg Bisacodyl (Bisacodyl 5 Mg Tablet.) 10 mg PO BEDTIME [facility] Last Admin: 02/04/24 21:12 Dose: 10 mg Calcium Carbonate (Calcium Carbonate 750 Mg Tab.Chew) 750 mg PO Q4H PRN PRN Reason: Heartburn Cariprazine (Cariprazine Hcl 1.5 Mg Capsule) 4.5 mg PO DAILY [facility] Cyanocobalamin (Cyanocobalamin (Vitamin B-12) 500 Mcg Tablet) 500 mcg PO DAILY [facility] Diphenhydramine HCl (Diphenhydramine Hcl 25 Mg Capsule) 50 mg PO BEDTIME [facility] Last Admin: 02/04/24 21:11 Dose: 50 mg Diphenhydramine HCl (Diphenhydramine Hcl 25 Mg Capsule) 25 mg PO TID PRN PRN Reason: allergies Docusate Sodium (Docusate Sodium 100 Mg Capsule) 100 mg PO DAILY [facility] Enoxaparin Sodium (Enoxaparin Sodium 80 Mg/0.8 Ml Syringe) 70 mg 1 mg/kg (70 mg) SUBCUT Q12H [facility] Last Admin: 02/04/24 21:12 Dose: 70 mg Ferrous Sulfate (Ferrous Sulfate 324 Mg Tablet.) 324 mg PO DAILY [facility] Gabapentin (Gabapentin 400 Mg Capsule) 800 mg PO TID [facility] Last Admin: 02/04/24 21:12 Dose: 800 mg Hydroxyzine HCl (Hydroxyzine Hcl 25 Mg Tablet) 25 mg PO Q6H PRN PRN Reason: Anxiety Last Admin: 02/05/24 06:27 Dose: 25 mg Lorazepam (Lorazepam 1 Mg Tablet) 1 mg PO BID PRN PRN Reason: Anxiety Lurasidone HCl (Lurasidone Hcl 40 Mg Tablet) 40 mg PO DAILY [facility] Magnesium Hydroxide (Milk Of Magnesia 30 Ml Oral.Susp) 30 ml PO DAILY PRN PRN Reason: Constipation Last Admin: 02/05/24 06:27 Dose: 30 ml Meclizine HCl (Meclizine Hcl 25 Mg Tablet) 25 mg PO TID PRN PRN Reason: dizziness Last Admin: 02/05/24 00:03 Dose: 25 mg Melatonin (Melatonin 3 Mg Tablet) 9 mg PO BEDTIME PRN PRN Reason: Insomnia Last Admin: 02/05/24 02:09 Dose: 9 mg Midodrine (Midodrine Hcl 10 Mg Tablet) 10 mg PO TID@0800,1300,1800 [facility] Last Admin: 02/04/24 17:21 Dose: 10 mg Mirtazapine (Mirtazapine 15 Mg Tablet) 15 mg PO BEDTIME [facility] Last Admin: 02/04/24 21:12 Dose: 15 mg Naloxone HCl (Naloxone Hcl 0.4 Mg/Ml Vial) 0.04 mg IVPUSH Q5M PRN PRN Reason: Excessive sedation or RR < 8 Nicotine (Nicotine 21 Mg Patch.Td24) 21 mg TRANSDERMA DAILY PRN PRN Reason: smoking cessation Nicotine Polacrilex (Nicotine Polacrilex 2 Mg Gum) 4 mg BUCCAL Q2H PRN PRN Reason: Nicotine Cravings Ondansetron HCl (Ondansetron Hcl 4 Mg/2 Ml Vial) 4 mg IVPUSH Q8H PRN PRN Reason: Nausea and Vomiting Ondansetron HCl (Ondansetron Odt 4 Mg Tab.Rapdis) 4 mg TRANSLINGU Q8H PRN PRN Reason: Nausea and Vomiting Oxycodone HCl (Oxycodone Hcl Immed Release 5 Mg Tablet) 5 mg PO Q4H PRN PRN Reason: Pain, Severe (Pain Scale 7-10) Last Admin: 02/05/24 02:08 Dose: 5 mg Polyethylene Glycol (Polyethylene Glycol 3350 17 Gm Powd.Pack) 17 gm PO DAILY [facility] Sodium Biphosphate/Sodium Phosphate (Sodium Phosphate,[place]-Dibasic 133 Ml Enema) 133 ml [place] DAILY PRN PRN Reason: continued constipation Sodium Biphosphate/Sodium Phosphate (Sodium Phosphate,[place]-Dibasic 133 Ml Enema) 133 ml [place] ONCE PRN PRN Reason: continued constipation Sodium Chloride (0.9 % Sodium Chloride Flush 3 Ml Syringe) 3 ml IVFLUSH QSHIFT [facility] Last Admin: 02/05/24 02:09 Dose: 3 ml Sumatriptan Succinate (Sumatriptan Succinate 50 Mg Tablet) 50 mg PO BID PRN PRN Reason: Migraine Headache Last Admin: 02/04/24 17:24 Dose: 50 mg Topiramate (Topiramate 25 Mg Tablet) 100 mg PO DAILY [facility] Tramadol HCl (Tramadol Hcl 50 Mg Tablet) 100 mg PO Q8H PRN PRN Reason: severe pain Last Admin: 02/04/24 19:44 Dose: 100 mg Trazodone HCl (Trazodone Hcl 50 Mg Tablet) 50 mg PO BEDTIME MRX1 PRN PRN Reason: Insomnia Triamcinolone Acetonide (Triamcinolone Acet 0.1 % Cream 15 Gm Tube) 1 appl TOPICAL DAILY PRN PRN Reason: rash Vitamin D (Cholecalciferol (Vitamin D3) 25 Mcg Tablet) 25 mcg PO DAILY [facility] Home Medications ?Medication ?Instructions ?Recorded ?Confirmed ?Last Taken ?Type lorazepam 1 mg tablet 1 mg PO BID PRN Anxiety 11/02/22 02/04/24 Unknown History potassium citrate 5 mEq (540 mg) 5 meq PO DAILY 06/13/23 02/04/24 01/21/24 History tablet,extended release melatonin 5 mg tablet 5 mg PO BEDTIME PRN Insomnia 07/14/23 02/04/24 Unknown History mirtazapine 15 mg tablet 15 mg PO BEDTIME 12/05/23 02/04/24 01/21/24 History naproxen 500 mg tablet 500 mg PO DAILY 12/05/23 02/04/24 01/21/24 History topiramate 100 mg tablet 100 mg PO DAILY 12/05/23 02/04/24 Unknown History albuterol sulfate 90 mcg/actuation 2 puff inhalation Q6H PRN wheezing 01/23/24 02/04/24 Unknown History aerosol inhaler (Ventolin HFA) diphenhydramine HCl 25 mg capsule 25 mg PO TID PRN allergies 01/23/24 02/04/24 Unknown History (Banophen) lurasidone 40 mg tablet 40 mg PO DAILY 01/23/24 02/04/24 01/21/24 History pantoprazole 40 mg tablet,delayed 40 mg PO DAILY@0630 01/23/24 02/04/24 01/21/24 History release sumatriptan succinate 50 mg tablet 50 mg PO BID PRN Migraine Headache 01/23/24 02/04/24 Unknown History Physical Exam 2 Vital Signs: Vital Signs: Last Vital Signs Temp 97.1 F 02/05/24 02:15 Pulse 55 02/05/24 02:15 Resp 16 02/05/24 02:15 BP 108/62 02/05/24 02:15 Pulse Ox 96 02/05/24 02:15 O2 Del Method CPAP 02/05/24 02:15 BMI result Body Mass Index 29.5 EXAM: GENERAL: The patient is well developed and nontoxic. VITAL SIGNS:see workflow HEENT: Nonicteric sclerae, PERRLA, EOMI. Oropharynx clear. Moist mucous membranes. Conjunctivae appear well perfused. No thyroid mass. CHEST: Chest wall is nontender. HEART: Regular rate and rhythm without murmurs. LUNGS: Clear to auscultation bilaterally. ABDOMEN: Soft, positive bowel sounds, nontender, no organomegaly.no flank tenderness SKIN: No rash, no excessive bruising, petechiae, or purpura. NEUROLOGIC: Cranial nerves II-XII intact without motor/sensory deficit. reduced strength left side Psych: normal affect Results Labs 02/04/24 17:04 02/05/24 05:35 Labs: Short CBC 02/04/24 Range/Units 17:04 WBC 7.4 (4.8-10.8) X10*3/uL Hgb 13.1 (12.0-16.0) g/dl Hct 39.6 (37.0-47.0) % Plt Count 210 D (160-400) X10*3/uL BMP 02/04/24 02/04/24 02/05/24 16:25 20:22 05:35 Sodium 141 141 Potassium 5.4 H D 4.6 4.3 Chloride 114 H 113 H Carbon Dioxide 20 L 24 BUN 20 H 16 Creatinine 1.13 0.94 Calcium 9.1 8.7 Liver Function 02/04/24 02/05/24 Range/Units 16:25 05:35 Total Bilirubin 0.3 0.4 (0.0-1.0) mg/dL AST 181 H 142 H (5-31) U/L ALT 525 H 467 H (0-31) U/L Alkaline Phosphatase 172 H 183 H (39-117) U/L Albumin 3.3 L 3.4 L (3.5-5.0) g/dL Assessment and Plan (1) Abnormal LFTs: Status: Acute Plan 1/ Waxing and waning LFt over the years, with macrocytosis with left sided weakness and non specific sx, could be SOD, vs other autoimmune, metabolic process. b12 was nml, TFT were low normal, imaging with nodular goiter. LFT could also be from [facility]. PLAN: 1/ recheck serologies, CPK, TSH 2/ US liver, pending 3/ can try bentyl if no CI, can help with SOD and any abdominal component of her sx. 4/ if ongoing may need liver bx Procedures Date of Service Date of Service: 02/05/24
[2024-02-05] MEDS: polyethylene glycoL 3350 17 GM POWD.PACK PO ×2 (07:23→21:03)
[2024-02-05] MEDS: Lurasidone HCl 40 MG TABLET PO (07:23)
[2024-02-05] MEDS: Cariprazine HCl 1.5 MG CAPSULE 4.5 MG PO (07:23)
[2024-02-05] MEDS: Topiramate 25 MG TABLET 100 MG PO (07:24)
[2024-02-05] MEDS: Docusate Sodium 100 MG CAPSULE PO (07:24)
[2024-02-05] MEDS: Ferrous Sulfate 324 MG TABLET.DR PO (07:24)
[2024-02-05] MEDS: Enoxaparin Sodium 80 MG/0.8 ML SYRINGE 70 MG SUBCUT (07:24)
[2024-02-05] MEDS: Gabapentin 400 MG CAPSULE 800 MG PO ×3 (07:24→21:04)
[2024-02-05] MEDS: Midodrine HCl 10 MG TABLET PO ×3 (07:24→18:04)
[2024-02-05] MEDS: Cyanocobalamin (Vitamin B-12) 500 MCG TABLET PO (07:25)
[2024-02-05] MEDS: Cholecalciferol (Vitamin D3) 25 MCG TABLET PO (07:25)
[2024-02-05 08:00] VITALS: BP 114/58; PULSE 52; RESP 16; TEMP 36.6; O2SAT 91
--- NOTE | 2024-02-05 08:45 | P.CNNE_ITS ---
History of Present Illness Data of Consult Service Date: 02/05/24 Primary Care Provider: Unknown Physician HPI Reason for consult: Left-sided weakness 53 years old woman with complicated neuropsychiatric history including treatment for psychotic disease with ECT, pulmonary embolism being treated with Lovenox, and migraine headaches. She was on psychiatric floor when she complain of left- sided weakness that started a day or 2 before that and she was brought downstairs for possibility of stroke and had multiple investigations. She also was having a headache associated with it. Her brain imaging did not reveal any acute lesion. When I saw her she was taking her breakfast and was comfortable. She was still saying that there was some right-sided occipital headache. Review of Systems 2 Review of Systems: No recent trauma or cold or flu-like illness or seizure-like episode [facility] Past Medical History Medical History Chronic kidney disease, stage III (moderate) Obesity (BMI 30-39.9) Renal cyst Diverticulosis Tubular adenoma Asthma Spondylosis of lumbar spine Sacroiliitis Dizziness of unknown etiology Chronic constipation Hx of schizophrenia Panic attacks PTSD (post-traumatic stress disorder) Dyspareunia Pyelonephritis Ingrown toenail Iron deficiency anemia Major depression, recurrent Anxiety Insomnia Tremor Orthostatic hypotension Incisional hernia without obstruction or gangrene Avascular necrosis of femoral head Bilateral carpal tunnel syndrome Peroneal neuropathy Lumbar degenerative disc disease Vitamin D deficiency GERD (gastroesophageal reflux disease) Migraine Hyperlipidemia Family History Family History Father Liver cancer Mother Breast cancer Sister Lung cancer Other Mental health problem Surgical History Surgical History History of left nephrectomy (~1999) History of colonoscopy History of surgery Hx of cystoscopy History of bilateral breast reduction surgery History of hysterectomy History of cholecystectomy History of endoscopy (~06/2016) History of bladder repair surgery (~03/2015) S/P cystoscopy (~07/30/12) S/P panniculectomy History of hernia repair (~03/29/10) History of bladder surgery (~10/2009) History of gastric bypass (~2008) History of incisional hernia repair (~1999) Hx of umbilical hernia repair (~1999) H/O left nephrectomy S/P laparoscopic sleeve gastrectomy Social History Social History Household Members: Spouse Housing: House Do you presently have visiting nurse or other home services: No Alcohol intake: never Comment: adrianna @ bedside Patient Tobacco Use Status: Never used Tobacco e-Cigarette/Vaping Use: Never Used Second Hand Smoke Exposure: No Use of substances other than those prescribed or required for medical reasons: No Currently Displaying Signs/Symptoms of Drug Intoxication Withdrawal: No Have you been hit, kicked, punched, or otherwise hurt by someone within the past year? If so, by whom?: No Do you feel safe in your current relationship?: Yes Is there a partner from a previous relationship who is making you feel unsafe now?: No Are you made to feel afraid or neglected: No Advance Directives: Yes Advance Directives on File: Yes Advance Directives Date on File: 07/12/21 Do you have a plan to hurt others: No Plan Recently lost weight without trying: No How much weight loss: Not applicable Eating poorly because of decreased appetite: No Nutrition screen score: 0 Nutrition Risks: No Nutritional Risk Patient : No : No Poor oral hygiene: No service: No Current occupational status: disabled Sexual orientation: Straight/Heterosexual Cognitive needs: No Hearing needs: No Vision needs: Yes Meds Allergies Allergy/AdvReac Type Severity Reaction Status Date / Time acetaminophen AdvReac Unknown Unknown Verified 01/22/24 09:01 atorvastatin AdvReac Severe elevated Uncoded 01/22/24 09:01 liver enzymes Active Medications: Current Medications Al Hydroxide/Mg Hydroxide (Magnesium Hydrox/Alum Hydrox 30 Ml Oral.Susp) 30 ml PO Q6H PRN PRN Reason: Heartburn/Nausea Albuterol Sulfate (Albuterol Sulfate 90 Mcg 8 Gm Inhaler) 2 puff INHALE Q6H PRN PRN Reason: Shortness of Breath/Wheezing Benzonatate (Benzonatate 100 Mg Capsule) 100 mg PO TID PRN PRN Reason: Cough Last Admin: 02/04/24 17:24 Dose: 100 mg Bisacodyl (Bisacodyl 5 Mg Tablet.Dr) 10 mg PO BEDTIME [facility] Last Admin: 02/04/24 21:12 Dose: 10 mg Calcium Carbonate (Calcium Carbonate 750 Mg Tab.Chew) 750 mg PO Q4H PRN PRN Reason: Heartburn Cariprazine (Cariprazine Hcl 1.5 Mg Capsule) 4.5 mg PO DAILY [facility] Last Admin: 02/05/24 07:23 Dose: 4.5 mg Cyanocobalamin (Cyanocobalamin (Vitamin B-12) 500 Mcg Tablet) 500 mcg PO DAILY [facility] Last Admin: 02/05/24 07:25 Dose: 500 mcg Diphenhydramine HCl (Diphenhydramine Hcl 25 Mg Capsule) 50 mg PO BEDTIME [facility] Last Admin: 02/04/24 21:11 Dose: 50 mg Diphenhydramine HCl (Diphenhydramine Hcl 25 Mg Capsule) 25 mg PO TID PRN PRN Reason: allergies Docusate Sodium (Docusate Sodium 100 Mg Capsule) 100 mg PO DAILY [facility] Last Admin: 02/05/24 07:24 Dose: 100 mg Enoxaparin Sodium (Enoxaparin Sodium 80 Mg/0.8 Ml Syringe) 70 mg 1 mg/kg (70 mg) SUBCUT Q12H [facility] Last Admin: 02/05/24 07:24 Dose: 70 mg Ferrous Sulfate (Ferrous Sulfate 324 Mg Tablet.Dr) 324 mg PO DAILY [facility] Last Admin: 02/05/24 07:24 Dose: 324 mg Gabapentin (Gabapentin 400 Mg Capsule) 800 mg PO TID [facility] Last Admin: 02/05/24 07:24 Dose: 800 mg Hydroxyzine HCl (Hydroxyzine Hcl 25 Mg Tablet) 25 mg PO Q6H PRN PRN Reason: Anxiety Last Admin: 02/05/24 06:27 Dose: 25 mg Lorazepam (Lorazepam 1 Mg Tablet) 1 mg PO BID PRN PRN Reason: Anxiety Lurasidone HCl (Lurasidone Hcl 40 Mg Tablet) 40 mg PO DAILY [facility] Last Admin: 02/05/24 07:23 Dose: 40 mg Magnesium Hydroxide (Milk Of Magnesia 30 Ml Oral.Susp) 30 ml PO DAILY PRN PRN Reason: Constipation Last Admin: 02/05/24 06:27 Dose: 30 ml Meclizine HCl (Meclizine Hcl 25 Mg Tablet) 25 mg PO TID PRN PRN Reason: dizziness Last Admin: 02/05/24 00:03 Dose: 25 mg Melatonin (Melatonin 3 Mg Tablet) 9 mg PO BEDTIME PRN PRN Reason: Insomnia Last Admin: 02/05/24 02:09 Dose: 9 mg Midodrine (Midodrine Hcl 10 Mg Tablet) 10 mg PO TID@0800,1300,1800 [facility] Last Admin: 02/05/24 07:24 Dose: 10 mg Mirtazapine (Mirtazapine 15 Mg Tablet) 15 mg PO BEDTIME [facility] Last Admin: 02/04/24 21:12 Dose: 15 mg Naloxone HCl (Naloxone Hcl 0.4 Mg/Ml Vial) 0.04 mg IVPUSH Q5M PRN PRN Reason: Excessive sedation or RR < 8 Nicotine (Nicotine 21 Mg Patch.Td24) 21 mg TRANSDERMA DAILY PRN PRN Reason: smoking cessation Nicotine Polacrilex (Nicotine Polacrilex 2 Mg Gum) 4 mg BUCCAL Q2H PRN PRN Reason: Nicotine Cravings Ondansetron HCl (Ondansetron Hcl 4 Mg/2 Ml Vial) 4 mg IVPUSH Q8H PRN PRN Reason: Nausea and Vomiting Ondansetron HCl (Ondansetron Odt 4 Mg Tab.Rapdis) 4 mg TRANSLINGU Q8H PRN PRN Reason: Nausea and Vomiting Oxycodone HCl (Oxycodone Hcl Immed Release 5 Mg Tablet) 5 mg PO Q4H PRN PRN Reason: Pain, Severe (Pain Scale 7-10) Last Admin: 02/05/24 07:23 Dose: 5 mg Polyethylene Glycol (Polyethylene Glycol 3350 17 Gm Powd.Pack) 17 gm PO DAILY [facility] Last Admin: 02/05/24 07:23 Dose: 17 gm Sodium Biphosphate/Sodium Phosphate (Sodium Phosphate,[place]-Dibasic 133 Ml Enema) 133 ml [place] DAILY PRN PRN Reason: continued constipation Sodium Biphosphate/Sodium Phosphate (Sodium Phosphate,[place]-Dibasic 133 Ml Enema) 133 ml [place] ONCE PRN PRN Reason: continued constipation Sodium Chloride (0.9 % Sodium Chloride Flush 3 Ml Syringe) 3 ml IVFLUSH QSHIFT [facility] Last Admin: 02/05/24 07:23 Dose: 3 ml Sumatriptan Succinate (Sumatriptan Succinate 50 Mg Tablet) 50 mg PO BID PRN PRN Reason: Migraine Headache Last Admin: 02/04/24 17:24 Dose: 50 mg Topiramate (Topiramate 25 Mg Tablet) 100 mg PO DAILY [facility] Last Admin: 02/05/24 07:24 Dose: 100 mg Tramadol HCl (Tramadol Hcl 50 Mg Tablet) 100 mg PO Q8H PRN PRN Reason: severe pain Last Admin: 02/04/24 19:44 Dose: 100 mg Trazodone HCl (Trazodone Hcl 50 Mg Tablet) 50 mg PO BEDTIME MRX1 PRN PRN Reason: Insomnia Triamcinolone Acetonide (Triamcinolone Acet 0.1 % Cream 15 Gm Tube) 1 appl TOPICAL DAILY PRN PRN Reason: rash Vitamin D (Cholecalciferol (Vitamin D3) 25 Mcg Tablet) 25 mcg PO DAILY [facility] Last Admin: 02/05/24 07:25 Dose: 25 mcg Home Medications ?Medication ?Instructions ?Recorded ?Confirmed ?Last Taken ?Type lorazepam 1 mg tablet 1 mg PO BID PRN Anxiety 11/02/22 02/04/24 Unknown History potassium citrate 5 mEq (540 mg) 5 meq PO DAILY 06/13/23 02/04/24 01/21/24 History tablet,extended release melatonin 5 mg tablet 5 mg PO BEDTIME PRN Insomnia 07/14/23 02/04/24 Unknown History mirtazapine 15 mg tablet 15 mg PO BEDTIME 12/05/23 02/04/24 01/21/24 History naproxen 500 mg tablet 500 mg PO DAILY 12/05/23 02/04/24 01/21/24 History topiramate 100 mg tablet 100 mg PO DAILY 12/05/23 02/04/24 Unknown History albuterol sulfate 90 mcg/actuation 2 puff inhalation Q6H PRN wheezing 01/23/24 02/04/24 Unknown History aerosol inhaler (Ventolin HFA) diphenhydramine HCl 25 mg capsule 25 mg PO TID PRN allergies 01/23/24 02/04/24 Unknown History (Banophen) lurasidone 40 mg tablet 40 mg PO DAILY 01/23/24 02/04/24 01/21/24 History pantoprazole 40 mg tablet,delayed 40 mg PO DAILY@0630 01/23/24 02/04/24 01/21/24 History release sumatriptan succinate 50 mg tablet 50 mg PO BID PRN Migraine Headache 01/23/24 02/04/24 Unknown History Physical Exam 2 Vital Signs: Vital Signs: Last Vital Signs Temp 97.8 F 02/05/24 08:00 Pulse 52 02/05/24 08:00 Resp 16 02/05/24 08:00 BP 114/58 L 02/05/24 08:00 Pulse Ox 91 L 02/05/24 08:00 O2 Del Method Room Air 02/05/24 08:00 BMI result Body Mass Index 29.5 Neuro: Other: She is alert and awake with normal spontaneity of speech fluency comprehension and affect. Face is symmetrical. There is no focal weakness. Results Labs 02/04/24 17:04 02/05/24 05:35 Labs: Short CBC 02/04/24 Range/Units 17:04 WBC 7.4 (4.8-10.8) X10*3/uL Hgb 13.1 (12.0-16.0) g/dl Hct 39.6 (37.0-47.0) % Plt Count 210 D (160-400) X10*3/uL BMP 02/04/24 02/04/24 02/05/24 16:25 20:22 05:35 Sodium 141 141 Potassium 5.4 H D 4.6 4.3 Chloride 114 H 113 H Carbon Dioxide 20 L 24 BUN 20 H 16 Creatinine 1.13 0.94 Calcium 9.1 8.7 Liver Function 02/04/24 02/05/24 Range/Units 16:25 05:35 Total Bilirubin 0.3 0.4 (0.0-1.0) mg/dL AST 181 H 142 H (5-31) U/L ALT 525 H 467 H (0-31) U/L Alkaline Phosphatase 172 H 183 H (39-117) U/L Albumin 3.3 L 3.4 L (3.5-5.0) g/dL Noncontrast MRI of brain did not reveal any significant chronic or acute lesion. CTA of brain and neck did not reveal any vascular lesion. Assessment and Plan (1) Left-sided weakness: Status: Acute 53 years old woman who likely had migraine related left-sided numbness and weakness. Imaging did not reveal any chronic or acute significant lesion. She was having about 3 headaches in a month. My recommendation is to continue topiramate in use as needed Fioricet 2 tablets. Sumatriptan type of medicines or relatively contraindicated in this type of migraine. Procedures Date of Service Date of Service: 02/05/24
--- NOTE | 2024-02-05 11:43 | HO.PM.IMPN ---
Subjective Subjective Date of Service: 02/05/24 Interval History: R-sided LANZA improved no facial droop; c/o L leg numbness but weakness resolved no RUQ pain This history was taken in Kiswahili from the patient. Review of Systems Review of Systems: Yes all other systems are reviewed and are negative Physical Exam Vital Signs: Vital Signs: Last Vital Signs Temp 97.8 F 02/05/24 08:00 Pulse 52 02/05/24 08:00 Resp 16 02/05/24 08:00 BP 114/58 L 02/05/24 08:00 Pulse Ox 91 L 02/05/24 08:00 O2 Del Method Room Air 02/05/24 08:00 BMI result Body Mass Index 29.5 Gen: in no acute distress HEENT: sclera anicteric, moist mucus membranes Neck: supple Lungs: clear to auscultation bilaterally Heart: regular rate and rhythm, no murmurs Abd: soft, non-tender, non-distended Ext: no edema Skin: warm/well-perfused Neuro: alert and oriented x3, no focal findings Psych: appropriate affect Objective Data Active Medications Al Hydroxide/Mg Hydroxide (Magnesium Hydrox/Alum Hydrox 30 Ml Oral.Susp) 30 ml PO Q6H PRN PRN Reason: Heartburn/Nausea Albuterol Sulfate (Albuterol Sulfate 90 Mcg 8 Gm Inhaler) 2 puff INHALE Q6H PRN PRN Reason: Shortness of Breath/Wheezing Benzonatate (Benzonatate 100 Mg Capsule) 100 mg PO TID PRN PRN Reason: Cough Last Admin: 02/04/24 17:24 Dose: 100 mg Documented By: COTADILSON Bisacodyl (Bisacodyl 5 Mg Tablet.Dr) 10 mg PO BEDTIME [facility] Last Admin: 02/04/24 21:12 Dose: 10 mg Documented By: HEATHER-ZADRUvaldo Calcium Carbonate (Calcium Carbonate 750 Mg Tab.Chew) 750 mg PO Q4H PRN PRN Reason: Heartburn Cariprazine (Cariprazine Hcl 1.5 Mg Capsule) 4.5 mg PO DAILY [facility] Last Admin: 02/05/24 07:23 Dose: 4.5 mg Documented By: ABHISHEK Cyanocobalamin (Cyanocobalamin (Vitamin B-12) 500 Mcg Tablet) 500 mcg PO DAILY [facility] Last Admin: 02/05/24 07:25 Dose: 500 mcg Documented By: ABHISHEK Diphenhydramine HCl (Diphenhydramine Hcl 25 Mg Capsule) 50 mg PO BEDTIME [facility] Last Admin: 02/04/24 21:11 Dose: 50 mg Documented By: LEEANN Diphenhydramine HCl (Diphenhydramine Hcl 25 Mg Capsule) 25 mg PO TID PRN PRN Reason: allergies Docusate Sodium (Docusate Sodium 100 Mg Capsule) 100 mg PO DAILY [facility] Last Admin: 02/05/24 07:24 Dose: 100 mg Documented By: ABHISHEK Enoxaparin Sodium (Enoxaparin Sodium 80 Mg/0.8 Ml Syringe) 70 mg 1 mg/kg (70 mg) SUBCUT Q12H [facility] Last Admin: 02/05/24 07:24 Dose: 70 mg Documented By: ABHISHEK Ferrous Sulfate (Ferrous Sulfate 324 Mg Tablet.Dr) 324 mg PO DAILY [facility] Last Admin: 02/05/24 07:24 Dose: 324 mg Documented By: ABHISHEK Gabapentin (Gabapentin 400 Mg Capsule) 800 mg PO TID [facility] Last Admin: 02/05/24 07:24 Dose: 800 mg Documented By: ABHISHEK Hydroxyzine HCl (Hydroxyzine Hcl 25 Mg Tablet) 25 mg PO Q6H PRN PRN Reason: Anxiety Last Admin: 02/05/24 06:27 Dose: 25 mg Documented By: LEEANN Lorazepam (Lorazepam 1 Mg Tablet) 1 mg PO BID PRN PRN Reason: Anxiety Lurasidone HCl (Lurasidone Hcl 40 Mg Tablet) 40 mg PO DAILY [facility] Last Admin: 02/05/24 07:23 Dose: 40 mg Documented By: ABHISHEK Magnesium Hydroxide (Milk Of Magnesia 30 Ml Oral.Susp) 30 ml PO DAILY PRN PRN Reason: Constipation Last Admin: 02/05/24 06:27 Dose: 30 ml Documented By: LEEANN Meclizine HCl (Meclizine Hcl 25 Mg Tablet) 25 mg PO TID PRN PRN Reason: dizziness Last Admin: 02/05/24 00:03 Dose: 25 mg Documented By: LEEANN Melatonin (Melatonin 3 Mg Tablet) 9 mg PO BEDTIME PRN PRN Reason: Insomnia Last Admin: 02/05/24 02:09 Dose: 9 mg Documented By: LEEANN Midodrine (Midodrine Hcl 10 Mg Tablet) 10 mg PO TID@0800,1300,1800 [facility] Last Admin: 02/05/24 07:24 Dose: 10 mg Documented By: ABHISHEK Mirtazapine (Mirtazapine 15 Mg Tablet) 15 mg PO BEDTIME [facility] Last Admin: 02/04/24 21:12 Dose: 15 mg Documented By: LEEANN Naloxone HCl (Naloxone Hcl 0.4 Mg/Ml Vial) 0.04 mg IVPUSH Q5M PRN PRN Reason: Excessive sedation or RR < 8 Nicotine (Nicotine 21 Mg Patch.Td24) 21 mg TRANSDERMA DAILY PRN PRN Reason: smoking cessation Nicotine Polacrilex (Nicotine Polacrilex 2 Mg Gum) 4 mg BUCCAL Q2H PRN PRN Reason: Nicotine Cravings Ondansetron HCl (Ondansetron Hcl 4 Mg/2 Ml Vial) 4 mg IVPUSH Q8H PRN PRN Reason: Nausea and Vomiting Ondansetron HCl (Ondansetron Odt 4 Mg Tab.Rapdis) 4 mg TRANSLINGU Q8H PRN PRN Reason: Nausea and Vomiting Oxycodone HCl (Oxycodone Hcl Immed Release 5 Mg Tablet) 5 mg PO Q4H PRN PRN Reason: Pain, Severe (Pain Scale 7-10) Last Admin: 02/05/24 11:05 Dose: 5 mg Documented By: ABHISHEK Polyethylene Glycol (Polyethylene Glycol 3350 17 Gm Powd.Pack) 17 gm PO DAILY [facility] Last Admin: 02/05/24 07:23 Dose: 17 gm Documented By: ABHISHEK Sodium Biphosphate/Sodium Phosphate (Sodium Phosphate,[place]-Dibasic 133 Ml Enema) 133 ml VA DAILY PRN PRN Reason: continued constipation Sodium Biphosphate/Sodium Phosphate (Sodium Phosphate,[place]-Dibasic 133 Ml Enema) 133 ml VA ONCE PRN PRN Reason: continued constipation Sodium Chloride (0.9 % Sodium Chloride Flush 3 Ml Syringe) 3 ml IVFLUSH QSHIFT [facility] Last Admin: 02/05/24 07:23 Dose: 3 ml Documented By: ABHISHEK Sumatriptan Succinate (Sumatriptan Succinate 50 Mg Tablet) 50 mg PO BID PRN PRN Reason: Migraine Headache Last Admin: 02/04/24 17:24 Dose: 50 mg Documented By: COTADILSON Topiramate (Topiramate 25 Mg Tablet) 100 mg PO DAILY [facility] Last Admin: 02/05/24 07:24 Dose: 100 mg Documented By: ABHISHEK Tramadol HCl (Tramadol Hcl 50 Mg Tablet) 100 mg PO Q8H PRN PRN Reason: severe pain Last Admin: 02/04/24 19:44 Dose: 100 mg Documented By: HEATHER-ZADRUvaldo Trazodone HCl (Trazodone Hcl 50 Mg Tablet) 50 mg PO BEDTIME MRX1 PRN PRN Reason: Insomnia Triamcinolone Acetonide (Triamcinolone Acet 0.1 % Cream 15 Gm Tube) 1 appl TOPICAL DAILY PRN PRN Reason: rash Vitamin D (Cholecalciferol (Vitamin D3) 25 Mcg Tablet) 25 mcg PO DAILY [facility] Last Admin: 02/05/24 07:25 Dose: 25 mcg Documented By: ABHISHEK Labs 02/04/24 17:04 02/05/24 05:35 Labs: Laboratory Results - last 24 hr 02/04/24 02/04/24 02/04/24 16:25 17:04 17:50 MCV 103.1 H MCH 34.1 H MCHC 33.1 RDW 12.1 Plt Count 210 D MPV 10.4 Absolute Nucleated RBC 0.000 Nucleated RBC % (auto) 0.0 Hold Purple Top PT 10.7 L INR 0.9 Anion Gap 12 Estim Creat Clear Calc 55.3 Estimated GFR 50 Random Glucose 103 Calcium 9.1 Total Bilirubin 0.3 AST 181 H ALT 525 H Alkaline Phosphatase 172 H Total Protein 6.3 L Albumin 3.3 L 02/05/24 05:35 MCV MCH MCHC RDW Plt Count MPV Absolute Nucleated RBC Nucleated RBC % (auto) Hold Purple Top SEE NOTE PT INR Anion Gap 8 L Estim Creat Clear Calc 66.6 Estimated GFR > 60 Random Glucose 90 Calcium 8.7 Total Bilirubin 0.4 AST 142 H ALT 467 H Alkaline Phosphatase 183 H Total Protein 6.1 L Albumin 3.4 L ITS Impressions Brain MRI 02/04/24 18:14 IMPRESSION: 1. No acute intracranial abnormalities. 2. Mild nonspecific white matter changes most commonly seen with mild underlying microangiopathy. Electronically signed by: Godfrey Harden DO 02/04/2024 07:18 PM EDT RP Assessment and Plan (1) Migraine: Status: Acute Plan d2 53yo F with asthma, HLD, orthostatic hypotension, hx nephrectomy, hx gastric bypass, migraines, GERD, MIGUEL on CPAP anxiety, depression, schizophrenia admitted to for depression with SI, transferred to hospitalist service due to L-sided weakness that the pt noted 3-4d ago in association with throbbing headache L-sided weakness, transient complex migraine - Neuro consulted, likely complex migraine rather than CVA/TIA. Sumatriptan contraindicated; use Fioricet prn; continue topiramate transaminasemia - has been a recurrent problem in past; US with Dopplers + GI cosult pending; LFTs improving; repeat in AM recently diagnosed PE 01/31 [R main PA + segmental branches of RLL] - was started on therapeutic enoxaparin; transition to apixaban hyperK - was due to hemolysis, repeat normal orthostatic hypotension, chronic - continue midodrine possible thinning of semicircular canals bilaterally with question of dehiscence noted on CTA, incidental - ED contacted ENT, compa rivas, follow up as outpt, no further workup at this time thyroid nodule, incidentally noted on CTA, 1.9 cm left - outpt f/u with thyroid US IBS-C - bowel regimen, outpt GI f/u asthma not in acute exac - prn albuterol MIGUEL - CPAP at night depression with SI schizophrenia - on cariprazine, mirtazapine, lurasidone, trazodone, lorazepam; sitter dispo - anticipate return to , likely tomorrow In my clinical judgment, the patient requires continued inpatient hospitalization for the following reasons: transaminasemia, neuro workup Total time managing care of this patient today: 35 minutes. Quality Stroke Does the patient have a stroke diagnosis?: No VTE Prior VTE?: No VTE Risk Level:: Medical - moderate - high VTE Device Contraindication: Treatment Not Indicated VTE Drug Contraindication: N/A - Med Ordered
[2024-02-05 15:32] VITALS: BP 121/70; PULSE 59; RESP 20; TEMP 36.3; O2SAT 93
--- NOTE | 2024-02-05 15:34 | MHC.CM.PN ---
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 BUT SHE DOES NOT KNOW THE AGENCY PT USES A CPAP HCP ON FILE PCP: AMARILIS HERNÁNDEZ DCP: [facility] VS HOME WITH RESUMPTION OF SERVICES PENDING CARE TEAM ASSESSMENT
[2024-02-05] MEDS: LORazepam 1 MG TABLET PO (16:08)
[2024-02-05] MEDS: traMADoL HCL 50 MG TABLET 100 MG PO (16:12)
[2024-02-05 16:28] LABS: TSH reflex Free T4 0.48 uIU/mL (0.32-4.0)
[2024-02-05] MEDS: Lidocaine 4 % Patch ADH..PATCH 1 PATCH TRANSDERMA (18:04)
[2024-02-05] MEDS: Sodium Phosphate,Mono-Dibasic 133 ML ENEMA PR (18:06)
[2024-02-05 18:19] LABS: Folate 10.7 ng/mL (> or = 4.0); Vitamin B12 1193 pg/mL (200-900)
[2024-02-05 20:00] VITALS: BP 116/75; PULSE 65; RESP 16; O2SAT 98
[2024-02-05] MEDS: diphenhydrAMINE HCL 25 MG CAPSULE 50 MG PO (21:03)
[2024-02-05] MEDS: Mirtazapine 15 MG TABLET PO (21:04)
[2024-02-05] MEDS: Apixaban 5 MG TABLET 10 MG PO (21:04)
[2024-02-05] MEDS: bisacodyL 5 MG TABLET.DR 10 MG PO (21:04)
--- NOTE | 2024-02-05 21:30 | PC.NURSE ---
Reports no BM for 5 days. Received prn milk of mag this AM. Is also on scheduled miralax, colace, dulcolax. PRN fleets given pre order. No results but passing a lot of gas. Dr. Yates notified and ordered lactulose, which pt refused, and increased miralax to bid. Pt took all scheduled meds as ordered.
[2024-02-05 23:13] VITALS: BP 122/77; PULSE 62; RESP 16; TEMP 36.9; O2SAT 97
[2024-02-06 01:11] VITALS: PULSE 64; RESP 16; O2SAT 97
[2024-02-06 03:07] VITALS: BP 110/68; PULSE 55; RESP 16; TEMP 36.9; O2SAT 97
[2024-02-06 04:29] LABS: HIV AB/AG Nonreactive (Nonreactive); HIV Num 1 0.08 S/CO (0.00-0.99)
[2024-02-06 07:03] LABS: Alanine Aminotransferase 324 U/L (0-31); Albumin Level 3.3 g/dL (3.5-5.0); Alkaline Phosphatase 176 U/L (39-117); Anion Gap 9 (12-20); Aspartate Amino Transferase 79 U/L (5-31); Bilirubin Total 0.4 mg/dL (0.0-1.0); Blood Urea Nitrogen 15 mg/dL (9-16); Calcium 8.6 mg/dL (8.4-10.2); Carbon Dioxide 24 mmol/L (22-29); Chloride 113 mmol/L (96-108); Creatinine Clr Calc Pharmacy 63.2; Estimated Glomerular Filt Rate 58; Glucose Random 89 mg/dL (60-115); Sodium 142 mmol/L (135-145); Total Protein 6.2 g/dL (6.5-8.0)
[2024-02-06] MEDS: 0.9 % Sodium Chloride Flush 3 ML SYRINGE IVFLUSH ×2 (07:08→14:22)
[2024-02-06 07:09] VITALS: BP 123/64; PULSE 55; RESP 17; TEMP 36.6; O2SAT 95
[2024-02-06] MEDS: Lidocaine 4 % Patch ADH..PATCH 1 PATCH TRANSDERMA (07:16)
[2024-02-06 07:17] LABS: TSH reflex Free T4 0.97 uIU/mL (0.32-4.0)
[2024-02-06] MEDS: Cariprazine HCl 1.5 MG CAPSULE 4.5 MG PO (07:17)
[2024-02-06] MEDS: Docusate Sodium 100 MG CAPSULE PO (07:17)
[2024-02-06] MEDS: polyethylene glycoL 3350 17 GM POWD.PACK PO (07:17)
[2024-02-06] MEDS: Ferrous Sulfate 324 MG TABLET.DR PO (07:17)
[2024-02-06] MEDS: Gabapentin 400 MG CAPSULE 800 MG PO ×2 (07:17→14:21)
[2024-02-06] MEDS: Topiramate 25 MG TABLET 100 MG PO (07:18)
[2024-02-06] MEDS: Cholecalciferol (Vitamin D3) 25 MCG TABLET PO (07:18)
[2024-02-06] MEDS: Apixaban 5 MG TABLET 10 MG PO (07:18)
[2024-02-06] MEDS: Cyanocobalamin (Vitamin B-12) 500 MCG TABLET PO (07:18)
[2024-02-06] MEDS: Midodrine HCl 10 MG TABLET PO ×2 (07:19→12:07)
[2024-02-06] MEDS: Lurasidone HCl 40 MG TABLET PO (07:19)
[2024-02-06] MEDS: LORazepam 1 MG TABLET PO (08:07)
[2024-02-06] MEDS: Butalb/Acetamin/Caff 50/325/40 TABLET 2 TAB PO (08:07)
--- NOTE | 2024-02-06 10:45 | MHC.CARE ---
CARE Team met with patient. Patient will be an IPLOC.
[2024-02-06 11:28] LABS: Alpha 1 Anti-trypsin 158 mg/dL (83-199)
[2024-02-06 11:53] LABS: IgA 164 mg/dL (47-310); IgG 1038 mg/dL (600-1640); IgM 90 mg/dL (50-300)
[2024-02-06 12:00] VITALS: BP 122/66; PULSE 63; RESP 17; TEMP 37.3; O2SAT 97
--- NOTE | 2024-02-06 12:39 | P.DS_ITS ---
DS: Providers Provider Date of Service: 02/06/24 Date of admission: 02/04/24 14:18 Date of discharge: 02/06/24 Primary care physician: Hung Montelongo MD Consults: 02/04/24 14:31 Consult to Neurology Routine Consulting Provider: [facility] Reason for consultation: Left-sided deficits, ?CVA 02/04/24 17:19 Consult to Gastroenterology Routine Consulting Provider[place] [facility] Reason for consultation: elevated LFTs 02/05/24 12:04 Consult for Sitter Routine Reason for consultation: si 02/06/24 08:23 Consult to Care Team Routine Comment: Reason for consultation: Medically cleared to return to DS: Diagnosis Discharge Diagnosis (1) Abnormal LFTs: Status: Acute (2) Major depression, recurrent: Status: Acute (3) Depression with suicidal ideation: Status: Acute (4) Migraine: Status: Acute (5) Pulmonary embolism: Status: Acute DS: Summary Hospital Course Hospital Course: From the history and physical by the admitting hospitalist, CJ Yousif, 02/04/24: Pt is a 53-year-old Finnish-speaking female with a PMH significant for asthma, HLD, orthostatic hypotension, hx of nephrectomy, gastric bypass, hernia repair, migraines, GERD, anxiety, depression, and schizophrenia who was admitted to Psychiatric unit for increasing depression and SI. Pt has been seen and evaluated by medicine multiple times since on the unit, initially for ECT risk stratification. After first ECT pt complained of chest pain and SOB, and CTA of chest was positive for pulmonary emboli in the right main pulmonary artery and segmental branches of right lower lobe on 01/31. Was started on therapeutic Lovenox 70 mg subq b.i.d. Today hospitalist consult was placed for left-sided numbness, weakness, and facial droop. Patient reports has been experiencing left-sided numbness and weakness of face, upper extremity, and lower extremity for the past 2-3 days. States yesterday she was having difficulty holding onto items such as her milk or spoon which she kept dropping. Also reports having difficulty swallowing, blurriness of vision, shortness of breath, pleuritic chest pain, nonproductive cough, chills, and occipital headache during this time period, as well as difficulty speaking and moments of confusion. Patient will be admitted to the medical services for treatment and additional workup for left-sided deficits concerning for CVA versus complex migraine. 53yo F with asthma, HLD, orthostatic hypotension, hx nephrectomy, hx gastric bypass, migraines, GERD, MIGUEL on CPAP anxiety, depression, schizophrenia admitted to on 01/24/24for depression with SI. On 02/04/24, she was transferred to the hospitalist service due to L-sided weakness that the patient had noted 3-4d ago in association with throbbing headache. CT of the head and CTA of the head and neck was negative for acute stroke, bleed, or large vessel occlusion. Weakness resolved but she had persistent paresthesias on her left leg. Neurology was consulted and the patient was thought to have a complex/hemiplegic migraine rather than CVA or TIA. Sumatriptan was stopped and prn Fioricet was recommended for acute treatment. Topiramate was continued for migraine prevention. She was seen by PT and OT and home services were recommended. Transaminasemia was noted; this has been a recurrent problem in the past. GI consulted and serologies were sent and pending at the time of transfer; she can follow up with GI in 1-2 weeks. LFTs should be repeated in 1 week. As for a recently diagnosed PE on 02/01/24 involving the R main PA and segmental branches of the RLL, she had no dyspnea or hypoxic. Therapeutic enoxaparin was transitioned to apixaban and she should take 10 mg bid until 02/12/24, then change to 5 mg bid. She was transferred back to for resumption of inpatient psychiatric care. Incidental findings on her admission CTA were: possible thinning of semicircular canals bilaterally with question of dehiscence: ED contacted ENT, likely transient; to follow up as outpt, no further workup at this time left thyroid nodule, 1.9 cm: outpt f/u with thyroid US Time Attestation Discharge Coordination Time (in mins): 35 Quality: Safe Use of Opioids Does Pt have an Active Cancer Diagnosis on the Problem List?: No Quality: Stroke Does the patient have a stroke diagnosis?: No Physical Exam Vital Signs: Vital Signs: Last Vital Signs Temp 99.2 F 02/06/24 12:00 Pulse 63 02/06/24 12:00 Resp 17 02/06/24 12:00 BP 122/66 02/06/24 12:00 Pulse Ox 97 02/06/24 12:00 O2 Del Method Room Air 02/06/24 12:00 BMI result Body Mass Index 29.5 Gen: in no acute distress HEENT: sclera anicteric, moist mucus membranes Neck: supple Lungs: clear to auscultation bilaterally Heart: regular rate and rhythm, no murmurs Abd: soft, non-tender, non-distended Ext: no edema Skin: warm/well-perfused Neuro: alert and oriented x3, no focal findings Psych: appropriate affect DS: Data Data Completed and Pending Completed studies during hospitalization [Text1]: Laboratory Results WBC 7.4 X10*3/uL (4.8-10.8) 02/04/24 17:04 RBC 3.84 X10*6/uL (4.20-5.50) L 02/04/24 17:04 Hgb 13.1 g/dl (12.0-16.0) 02/04/24 17:04 Hct 39.6 % (37.0-47.0) 02/04/24 17:04 MCV 103.1 fL (80.0-98.0) H 02/04/24 17:04 MCH 34.1 pg (27.0-33.0) H 02/04/24 17:04 MCHC 33.1 g/dl (31.0-35.0) 02/04/24 17:04 RDW 12.1 % (11.0-16.0) 02/04/24 17:04 Plt Count 210 X10*3/uL (160-400) D 02/04/24 17:04 MPV 10.4 fL (9.4-12.3) 02/04/24 17:04 Absolute Nucleated RBC 0.000 X10*3/uL (0.0-0.012) 02/04/24 17:04 Nucleated RBC % (auto) 0.0 /100WBC (0.0-0.2) 02/04/24 17:04 Hold Purple Top SEE NOTE 02/06/24 05:33 PT 10.7 SEC (10.9-12.4) L 02/04/24 17:50 INR 0.9 (0.9-1.1) 02/04/24 17:50 Sodium 142 mmol/L (135-145) 02/06/24 05:33 Potassium 4.0 mmol/L (3.3-5.1) 02/06/24 05:33 Chloride 113 mmol/L (96-108) H 02/06/24 05:33 Carbon Dioxide 24 mmol/L (22-29) 02/06/24 05:33 Anion Gap 9 (12-20) L 02/06/24 05:33 BUN 15 mg/dL (9-16) 02/06/24 05:33 Creatinine 0.99 mg/dL (0.5-1.4) 02/06/24 05:33 Estim Creat Clear Calc 63.2 02/06/24 05:33 Estimated GFR 58 02/06/24 05:33 Random Glucose 89 mg/dL (60-115) 02/06/24 05:33 Calcium 8.6 mg/dL (8.4-10.2) 02/06/24 05:33 Total Bilirubin 0.4 mg/dL (0.0-1.0) 02/06/24 05:33 AST 79 U/L (5-31) H 02/06/24 05:33 ALT 324 U/L (0-31) H 02/06/24 05:33 Alkaline Phosphatase 176 U/L (39-117) H 02/06/24 05:33 Total Creatine Kinase 33 U/L (26-140) 02/05/24 15:44 Total Protein 6.2 g/dL (6.5-8.0) L 02/06/24 05:33 Albumin 3.3 g/dL (3.5-5.0) L 02/06/24 05:33 Dnysk-0-Flfxgmblmzl 158 mg/dL (83-199) 02/05/24 15:44 Vitamin B12 1193 pg/mL (200-900) H 02/05/24 15:44 Folate 10.7 ng/mL (> or = 4.0) 02/05/24 15:44 TSH 0.97 uIU/mL (0.32-4.0) 02/06/24 05:33 IgG Total 1038 mg/dL (600-1640) 02/05/24 15:44 IgA Total 164 mg/dL (47-310) 02/05/24 15:44 IgM 90 mg/dL (50-300) 02/05/24 15:44 HIV 1&2 Ab/P24 Ag 4thGn Nonreactive (Nonreactive) 02/05/24 15:44 Ref Lab Test Result Cancelled 02/05/24 15:44 Impressions Brain MRI 02/04/24 18:14 IMPRESSION: 1. No acute intracranial abnormalities. 2. Mild nonspecific white matter changes most commonly seen with mild underlying microangiopathy. Electronically signed by: Godfrey Harden DO 02/04/2024 07:18 PM EDT RP Discharge Plan Discharge Patient Disposition: Xfer Psychiatric Hosp Discharge Diagnosis: complex/hemiplegic migraine pulmonary embolism elevated liver enzymes depression Referrals: Hung Montelongo MD [Primary Care Provider] - 1 Week Seymour Rosario MD [Physician] - 2 Weeks Discharge Medications: New nicotine (polacrilex) 2 mg Gum 4 mg buccal Q2H PRN (Reason: Nicotine Cravings) Qty: 1 0RF nicotine 21 mg/24 hr Patch 24 Hour 21 mg transdermal DAILY PRN (Reason: smoking cessation) Qty: 1 0RF Eliquis 5 mg Tablet 5 mg PO BID Qty: 1 0RF Eliquis 5 mg Tablet 10 mg PO BID Qty: 1 0RF Vraylar 1.5 mg Capsule 4.5 mg PO DAILY Qty: 1 0RF eqrogucwfg-aawmmvvbddxcd-ztmy 50-325-40 mg Tablet 2 tab PO Q6H PRN (Reason: Migraine Headache) Qty: 1 0RF hydroxyzine HCl 25 mg Tablet 25 mg PO Q6H PRN (Reason: Anxiety) Qty: 1 0RF Continued (DME) CPAP device and all related supplies See Rx Instructions .Route .MEDSUPPLY Qty: 1 0RF Rx Instructions: As directed (DME) blood pressure monitor Kit See Rx Instructions .ROUTE .MEDSUPPLY Qty: 1 0RF Rx Instructions: As directed rosuvastatin 5 mg tablet 5 mg PO DAILY Qty: 90 1RF cholecalciferol (vitamin D3) [Vitamin D3] 25 mcg (1,000 unit) capsule 25 mcg PO DAILY 90 Days Qty: 90 3RF tramadol 50 mg tablet 100 mg PO Q8H PRN (Reason: severe pain) 30 Days Qty: 180 0RF mometasone 0.1 % cream 1 appl topical DAILY PRN (Reason: rash) Qty: 45 1RF ferrous sulfate 325 mg (65 mg iron) tablet 325 mg PO DAILY Qty: 90 0RF gabapentin 400 mg capsule 800 mg PO TID 30 Days Qty: 180 0RF midodrine 10 mg tablet 10 mg PO TID Qty: 30 1RF Rx Instructions: do not give last dose of day after 6PM or within 4 hrs of bedtime meclizine 25 mg tablet 25 mg PO TID PRN (Reason: dizziness) 30 Days Qty: 90 1RF cyanocobalamin (vitamin B-12) 500 mcg Tablet 500 mcg PO DAILY Qty: 30 0RF pantoprazole 40 mg tablet,delayed release (DR/EC) 40 mg PO DAILY@0630 diphenhydramine HCl [Banophen] 25 mg capsule 25 mg PO TID PRN (Reason: allergies) lurasidone 40 mg tablet 40 mg PO DAILY albuterol sulfate [Ventolin HFA] 90 mcg/actuation HFA aerosol inhaler 2 puff inhalation Q6H PRN (Reason: wheezing) melatonin 5 mg tablet 5 mg PO BEDTIME PRN (Reason: Insomnia) lorazepam 1 mg tablet 1 mg PO BID PRN (Reason: Anxiety) nystatin 100,000 unit/mL suspension 1 ml PO TID 10 Days Qty: 30 0RF Rx Instructions: swish and swallow docusate sodium 100 mg capsule 100 mg PO DAILY Qty: 30 3RF bisacodyl [Dulcolax (bisacodyl)] 5 mg tablet,delayed release (DR/EC) 10 mg PO BEDTIME Qty: 180 4RF topiramate 100 mg tablet 100 mg PO DAILY mirtazapine 15 mg tablet 15 mg PO BEDTIME naproxen 500 mg tablet 500 mg PO DAILY potassium citrate 5 mEq (540 mg) tablet extended release 5 meq PO DAILY Discontinued sumatriptan succinate 50 mg tablet 50 mg PO BID PRN (Reason: Migraine Headache) Discharge Orders: Discharge Order (Routine); Ordered 02/06/24 Ordered By: Abhishek Yates Diet: Advance to usual diet Activity on Discharge: As tolerated Stand Alone Forms: Patient Portal Discharge page Print Language: Finnish Other Ambulatory Orders: Liver Panel (Routine) Timeframe: 1 Week Facility: [facility] - Location: Laboratory Ordered By: Abhishek Yates Care Plan Goals: control of migraines mental health Health Concerns: complex/hemiplegic migraine pulmonary embolism elevated liver enzymes depression Plan of Treatment: stop sumatriptan; use Fioricet as needed for migraines; continue topiramate change from enoxaparin injection to apixaban, 10 mg twice daily until 02/11, then change to 5 mg twice daily repeat LFTs in 1 week and follow up with Dr Rosario [place] return to Psychiatry for ongoing care Assessment: See Discharge Summary.
--- NOTE | 2024-02-06 13:06 | MHC.CM.PN ---
DP: PT HAS BEEN MEDICALLY CLEARED TO RETURN TO IP PSYCH
[2024-02-06] MEDS: hydrOXYzine HCL 25 MG TABLET PO (13:55)
[2024-02-06] MEDS: traMADoL HCL 50 MG TABLET 100 MG PO (14:21)
[2024-02-06 18:09] LABS: Ceruloplasmin 32 mg/dL (14-48)
[2024-02-07 07:54] LABS: Transglutaminase Ab IgG <1.0 U/mL
[2024-02-07 11:14] LABS: Anti Nuclear Antibody Screen NEGATIVE (NEGATIVE)
[2024-02-08 18:28] LABS: Smooth Muscle Antibody <20 U (<20)
[2024-02-09 14:33] LABS: Soluble Liver Ag Autoantibody <20.1 U (0.0-20.0)
[2024-02-12 11:37] LABS: Phosphatidylethanol 16:0-18:1 NEGATIVE; Phosphatidylethanol 16:0-18:2 NEGATIVE
== END 2024-02-06 15:08 | DRG 54 ==
PROVIDERS: Internal Medicine Gastroenterology; Psychiatry & Neurology Psychiatry; Student in an Organized Health Care Education/Training Program; Admitting Provider Family Medicine; PCP Internal Medicine; Visit Provider Family Medicine
DX: G43.409 Hemiplegic migraine, not intractable, without status migrainosus (principal); R45.851 Suicidal ideations; E87.5 Hyperkalemia; F20.9 Schizophrenia, unspecified; I95.1 Orthostatic hypotension; K58.1 Irritable bowel syndrome with constipation; F32.A Depression, unspecified; J45.909 Unspecified asthma, uncomplicated; G47.33 Obstructive sleep apnea (adult) (pediatric); Z90.5 Acquired absence of kidney; Z98.84 Bariatric surgery status; Z79.899 Other long term (current) drug therapy
CPT/HCPCS: 36415; 70551; 76705; 80053; 80321; 82103; 82390; 82550; 82607; 82746; 82784; 83520; 84132; 84443; 85027; 85610; 86015; 86038; 86364; 87389; 93308; 93975; 94660; 97116; 97162; 97166; J1650; S9485

== ENCOUNTER 2024-02-04 14:18 | Outpatient (BNV) | payer OTHER, SELFPAY | END 2024-02-05 07:00 | PROVIDERS: Admitting Provider Family Medicine; PCP Internal Medicine; Visit Provider Internal Medicine Cardiovascular Disease | DX: I63.9 Cerebral infarction, unspecified (principal) | CPT/HCPCS: 93308 ==

== ENCOUNTER 2024-02-04 14:18 | Outpatient (BNV) | payer OTHER, SELFPAY | END 2024-02-05 10:19 | PROVIDERS: Admitting Provider Family Medicine; PCP Internal Medicine; Visit Provider Radiology Diagnostic Radiology | DX: R79.89 Other specified abnormal findings of blood chemistry (principal) | CPT/HCPCS: 76705; 93975 ==

== ENCOUNTER → 2024-02-04 14:18 | Outpatient (BNV) | payer OTHER, SELFPAY | PROVIDERS: Admitting Provider Family Medicine; PCP Internal Medicine; Visit Provider Internal Medicine Gastroenterology | DX: R79.89 Other specified abnormal findings of blood chemistry (principal) | CPT/HCPCS: 99222 ==

== ENCOUNTER → 2024-02-04 14:18 | Outpatient (BNV) | payer OTHER, SELFPAY | PROVIDERS: Admitting Provider Family Medicine; Visit Provider Psychiatry & Neurology Neurology | DX: G81.94 Hemiplegia, unspecified affecting left nondominant side (principal) | CPT/HCPCS: 99222 ==

== ENCOUNTER → 2024-02-04 14:18 | Outpatient (BNV) | payer OTHER, SELFPAY | PROVIDERS: Admitting Provider Family Medicine; PCP Internal Medicine; Visit Provider Student in an Organized Health Care Education/Training Program | DX: I26.99 Other pulmonary embolism without acute cor pulmonale (principal); F33.9 Major depressive disorder, recurrent, unspecified; R79.89 Other specified abnormal findings of blood chemistry; G43.909 Migraine, unspecified, not intractable, without status migrainosus | CPT/HCPCS: 99223; 99232; 99239 ==

== ENCOUNTER 2024-02-06 14:15 | Inpatient (IN) | payer OTHER, SELFPAY ==
--- NOTE | ~2024-02-06 | US_ITS ---
EXAMINATION: US ABDOMEN LIMITED CLINICAL INFORMATION: Abdominal discomfort, right lower quadrant. COMPARISON: Limited abdominal ultrasound 02/05/2024 and 10/25/2022. CT abdomen and pelvis 01/25/2024. TECHNIQUE: Real-time imaging of the right upper quadrant abdominal viscera. FINDINGS: PANCREAS: Largely obscured by overlapping bowel gas. LIVER: The liver is normal in size. The liver contour is normal. There is heterogeneous liver parenchymal echogenicity. No focal hepatic lesion. There is no intrahepatic biliary duct dilatation seen. GALLBLADDER: Not visualized. COMMON BILE DUCT: Normal in caliber measuring 0.4 cm in diameter. RIGHT KIDNEY: No hydronephrosis or renal calculi. The kidney measures 14.3 cm in maximum dimension. Multiple simple cyst is seen, the largest at the upper pole measuring 5.4 cm. These require no imaging follow-up. FREE FLUID: None. US/US abdomen limited IMPRESSION: 1. There is coarsened hepatic echotexture, consistent with fatty infiltration or hepatocellular disease. Please correlate clinically. No focal hepatic mass or intrahepatic biliary dilatation is seen. 2. The gallbladder is surgically absent. 3. Technically limited ultrasound examination of the pancreas. Electronically signed by: Alfred Jenkins MD 02/27/2024 05:57 PM EDT
[2024-02-06 16:35] VITALS: BP 119/65; PULSE 78; RESP 18; TEMP 36.3; O2SAT 97
--- NOTE | 2024-02-06 17:40 | PC.NURSE ---
called nursing jose @ [phone] to request CPAP for pt. TW spoke to Earnestine. Earnestine verified pt room# and responded OK
[2024-02-06] MEDS: LORazepam 1 MG TABLET PO (17:56)
--- NOTE | 2024-02-06 18:28 | PC.ADMIT ---
Pt re-admitted at 1530 from [place] [id number]. Pt continues to endorse high depression, anxiety, pain. Pt does not report SI at this time, but states she does not feel safe to discharge until she complete the remainder of her ECT treatments. Pt has had eliquis added to her MAR during her time on [facility] 3. Pt resigned releases. Participated in admission, no complaints at this time.
[2024-02-06 20:00] VITALS: BP 121/71; PULSE 71; RESP 16; TEMP 36.8; O2SAT 97
[2024-02-06] MEDS: bisacodyL 5 MG TABLET.DR 10 MG PO (20:59)
[2024-02-06] MEDS: Apixaban 5 MG TABLET 10 MG PO (20:59)
[2024-02-06] MEDS: Mirtazapine 15 MG TABLET PO (20:59)
[2024-02-06] MEDS: Gabapentin 400 MG CAPSULE 800 MG PO (20:59)
[2024-02-06] MEDS: Melatonin 3 MG TABLET 6 MG PO (21:18)
[2024-02-06] MEDS: diphenhydrAMINE HCL 25 MG CAPSULE PO (21:18)
[2024-02-06] MEDS: traZODone HCL 50 MG TABLET PO (21:24)
[2024-02-06] MEDS: Melatonin 3 MG TABLET 9 MG PO (21:52)
[2024-02-07] MEDS: Omeprazole 20 MG CAPSULE.DR PO (06:34)
[2024-02-07] MEDS: traMADoL HCL 50 MG TABLET 100 MG PO ×2 (06:37→20:26)
[2024-02-07] MEDS: Lurasidone HCl 40 MG TABLET PO (08:37)
[2024-02-07] MEDS: Cholecalciferol (Vitamin D3) 25 MCG TABLET PO (08:37)
[2024-02-07] MEDS: Topiramate 100 MG TABLET PO (08:37)
[2024-02-07] MEDS: Cariprazine HCl 1.5 MG CAPSULE 4.5 MG PO (08:37)
[2024-02-07] MEDS: Docusate Sodium 100 MG CAPSULE PO (08:37)
[2024-02-07] MEDS: Gabapentin 400 MG CAPSULE 800 MG PO ×3 (08:37→20:26)
[2024-02-07] MEDS: Cyanocobalamin (Vitamin B-12) 500 MCG TABLET PO (08:37)
[2024-02-07] MEDS: ROSUVASTATIN 5 MG 5 EACH PO (08:38)
[2024-02-07] MEDS: Ferrous Sulfate 324 MG TABLET.DR PO (08:38)
[2024-02-07] MEDS: Midodrine HCl 10 MG TABLET PO ×3 (08:38→17:45)
[2024-02-07] MEDS: Apixaban 5 MG TABLET 10 MG PO ×2 (08:38→20:26)
[2024-02-07 09:34] VITALS: BP 113/53; PULSE 54; RESP 18; TEMP 36.8; O2SAT 95
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
[2024-02-07] MEDS: LORazepam 1 MG TABLET PO ×2 (12:55→17:49)
[2024-02-07 12:56] VITALS: BP 109/73
[2024-02-07] MEDS: hydrOXYzine HCL 25 MG TABLET PO (14:47)
[2024-02-07 17:45] VITALS: BP 136/90
[2024-02-07 20:00] VITALS: BP 163/72; PULSE 97; RESP 16; O2SAT 97
[2024-02-07] MEDS: diphenhydrAMINE HCL 25 MG CAPSULE PO (20:26)
[2024-02-07] MEDS: bisacodyL 5 MG TABLET.DR 10 MG PO (20:26)
[2024-02-07] MEDS: Melatonin 3 MG TABLET 9 MG PO (20:26)
[2024-02-07] MEDS: traZODone HCL 50 MG TABLET PO (20:26)
[2024-02-07] MEDS: Mirtazapine 15 MG TABLET PO (20:52)
[2024-02-08] MEDS: traZODone HCL 50 MG TABLET PO ×2 (01:54→21:20)
[2024-02-08] MEDS: hydrOXYzine HCL 25 MG TABLET PO ×2 (01:59→08:25)
[2024-02-08 02:10] VITALS: RESP 16
[2024-02-08] MEDS: Omeprazole 20 MG CAPSULE.DR PO (06:45)
[2024-02-08 08:00] VITALS: BP 91/53; PULSE 58; RESP 18; TEMP 36.8; O2SAT 96
[2024-02-08] MEDS: Topiramate 100 MG TABLET PO (08:14)
[2024-02-08] MEDS: Gabapentin 400 MG CAPSULE 800 MG PO ×3 (08:15→21:16)
[2024-02-08] MEDS: Docusate Sodium 100 MG CAPSULE PO (08:15)
[2024-02-08] MEDS: Cyanocobalamin (Vitamin B-12) 500 MCG TABLET PO (08:16)
[2024-02-08] MEDS: Ferrous Sulfate 324 MG TABLET.DR PO (08:16)
[2024-02-08] MEDS: Cholecalciferol (Vitamin D3) 25 MCG TABLET PO (08:17)
[2024-02-08] MEDS: Cariprazine HCl 1.5 MG CAPSULE 4.5 MG PO (08:17)
[2024-02-08] MEDS: Apixaban 5 MG TABLET 10 MG PO ×2 (08:18→21:17)
[2024-02-08] MEDS: Midodrine HCl 10 MG TABLET PO ×3 (08:19→17:04)
[2024-02-08] MEDS: ROSUVASTATIN 5 MG 5 EACH PO (08:25)
--- NOTE | 2024-02-08 08:54 | PM.CNPUL ---
History of Present Illness History of Present Illness Consult date: 02/08/24 Chief complaint: Depression Narrative: This is an inpatient pulmonary consultation. The patient is a 53yo F with asthma, HLD, orthostatic hypotension, hx nephrectomy, hx gastric bypass, migraines, GERD, MIGUEL on CPAP anxiety, depression, schizophrenia admitted to on 01/24/24for depression with SI. On 02/04/24, she was transferred to the hospitalist service due to L-sided weakness that the patient had noted 3-4d ago in association with throbbing headache and chest pains. CT of the head and CTA of the head and neck was negative for acute stroke, bleed, or large vessel occlusion. As for a recently diagnosed PE on 02/01/24 involving the R main PA and segmental branches of the RLL, she had no dyspnea or hypoxic. Therapeutic enoxaparin was transitioned to apixaban and she should take 10 mg bid until 02/12/24, then change to 5 mg bid. She was transferred back to for resumption of inpatient psychiatric care. The patient is tolerating the anticoagulation. Review of Systems Constitutional: Constitutional: Denies fever(s) ENT: Reports system reviewed and no additional complaints, except as documented Cardiovascular: Cardiovascular: Denies chest pain and Denies dyspnea Respiratory: Respiratory: Denies dyspnea and Denies wheezing Gastrointestinal: Gastrointestinal: Reports no additional gastrointestinal complaints Genitourinary: Genitourinary: Reports no additional female genitourinary complaints Musculoskeletal: Musculoskeletal: Reports no additional musculoskeletal complaints Psychiatric: Psychiatric: Reports as per HPI Hematologic/Lymphatic: Hematologic/Lymphatic: Reports no additional hematologic/lymphatic complaints Allergic/Immunologic: Allergic/Immunologic: Denies wheezing ON LICENSE OF [facility] Past Medical History Medical History Chronic kidney disease, stage III (moderate) Obesity (BMI 30-39.9) Renal cyst Diverticulosis Tubular adenoma Asthma Spondylosis of lumbar spine Sacroiliitis Dizziness of unknown etiology Chronic constipation Hx of schizophrenia Panic attacks PTSD (post-traumatic stress disorder) Dyspareunia Pyelonephritis Ingrown toenail Iron deficiency anemia Major depression, recurrent Anxiety Insomnia Tremor Orthostatic hypotension Incisional hernia without obstruction or gangrene Avascular necrosis of femoral head Bilateral carpal tunnel syndrome Peroneal neuropathy Lumbar degenerative disc disease Vitamin D deficiency GERD (gastroesophageal reflux disease) Migraine Hyperlipidemia Family History Family History Father Liver cancer Mother Breast cancer Sister Lung cancer Other Mental health problem Surgical History Surgical History History of left nephrectomy (~1999) History of colonoscopy History of surgery Hx of cystoscopy History of bilateral breast reduction surgery History of hysterectomy History of cholecystectomy History of endoscopy (~06/2016) History of bladder repair surgery (~03/2015) S/P cystoscopy (~07/30/12) S/P panniculectomy History of hernia repair (~03/29/10) History of bladder surgery (~10/2009) History of gastric bypass (~2008) History of incisional hernia repair (~1999) Hx of umbilical hernia repair (~1999) H/O left nephrectomy S/P laparoscopic sleeve gastrectomy Social History Social History Household Members: Spouse and Family Housing: House Do you presently have visiting nurse or other home services: No Alcohol intake: never Comment: 1:1 Patient Tobacco Use Status: Never used Tobacco e-Cigarette/Vaping Use: Never Used Second Hand Smoke Exposure: No Advance Directives Date on File: 07/12/21 service: No Current occupational status: disabled Sexual orientation: Straight/Heterosexual Cognitive needs: No Hearing needs: No Vision needs: Yes Meds Allergies Allergy/AdvReac Type Severity Reaction Status Date / Time acetaminophen AdvReac Unknown Unknown Verified 01/22/24 09:01 atorvastatin AdvReac Severe elevated Uncoded 01/22/24 09:01 liver enzymes Active Medications: Current Medications Acetaminophen/Butalbital/Caffeine (Butalb/Acetamin/Caff 50/325/40 Tablet) 2 tab PO Q6H PRN PRN Reason: Migraine Headache Al Hydroxide/Mg Hydroxide (Magnesium Hydrox/Alum Hydrox 30 Ml Oral.Susp) 30 ml PO Q6H PRN PRN Reason: Heartburn/Nausea Albuterol Sulfate (Albuterol Sulfate 90 Mcg 8 Gm Inhaler) 2 puff INHALE RQ6H PRN PRN Reason: wheezing Apixaban (Apixaban 5 Mg Tablet) 5 mg PO BID JYOTHI Apixaban (Apixaban 5 Mg Tablet) 10 mg PO BID JYOTHI Stop: 02/12/24 23:59 Last Admin: 02/08/24 08:18 Dose: 10 mg Bisacodyl (Bisacodyl 5 Mg Tablet.Dr) 10 mg PO BEDTIME [facility] Last Admin: 02/07/24 20:26 Dose: 10 mg Cariprazine (Cariprazine Hcl 1.5 Mg Capsule) 4.5 mg PO DAILY [facility] Last Admin: 02/08/24 08:17 Dose: 4.5 mg Cyanocobalamin (Cyanocobalamin (Vitamin B-12) 500 Mcg Tablet) 500 mcg PO DAILY [facility] Last Admin: 02/08/24 08:16 Dose: 500 mcg Diphenhydramine HCl (Diphenhydramine Hcl 25 Mg Capsule) 25 mg PO TID PRN PRN Reason: allergies Last Admin: 02/07/24 20:26 Dose: 25 mg Docusate Sodium (Docusate Sodium 100 Mg Capsule) 100 mg PO DAILY [facility] Last Admin: 02/08/24 08:15 Dose: 100 mg Ferrous Sulfate (Ferrous Sulfate 324 Mg Tablet.Dr) 324 mg PO DAILY [facility] Last Admin: 02/08/24 08:16 Dose: 324 mg Gabapentin (Gabapentin 400 Mg Capsule) 800 mg PO TID [facility] Last Admin: 02/08/24 08:15 Dose: 800 mg Hydroxyzine HCl (Hydroxyzine Hcl 25 Mg Tablet) 25 mg PO Q6H PRN PRN Reason: Anxiety Last Admin: 02/08/24 08:25 Dose: 25 mg Lorazepam (Lorazepam 1 Mg Tablet) 1 mg PO BID PRN PRN Reason: Anxiety Last Admin: 02/07/24 17:49 Dose: 1 mg Lurasidone HCl (Lurasidone Hcl 20 Mg Tablet) 60 mg PO DAILY@1800 [facility] Magnesium Hydroxide (Milk Of Magnesia 30 Ml Oral.Susp) 30 ml PO DAILY PRN PRN Reason: Constipation Meclizine HCl (Meclizine Hcl 25 Mg Tablet) 25 mg PO TID PRN PRN Reason: dizziness Melatonin (Melatonin 3 Mg Tablet) 9 mg PO BEDTIME PRN PRN Reason: Insomnia Last Admin: 02/07/24 20:26 Dose: 9 mg Midodrine (Midodrine Hcl 10 Mg Tablet) 10 mg PO TID@0900,1300,1800 [facility] Last Admin: 02/08/24 08:19 Dose: 10 mg Mirtazapine (Mirtazapine 15 Mg Tablet) 15 mg PO BEDTIME [facility] Last Admin: 02/07/24 20:52 Dose: 15 mg Nicotine Polacrilex (Nicotine Polacrilex 2 Mg Gum) 4 mg BUCCAL Q2H PRN PRN Reason: Nicotine Cravings Non-Formulary Medication (Potassium Citrate) 5 meq PO DAILY [facility] Pt Own (Rosuvastatin (5 Mg Tablet)) 5 mg PO DAILY [facility] Last Admin: 02/08/24 08:25 Dose: 5 mg Omeprazole (Omeprazole 20 Mg Capsule.Dr) 20 mg PO DAILY@0630 [facility] Last Admin: 02/08/24 06:45 Dose: 20 mg Topiramate (Topiramate 100 Mg Tablet) 100 mg PO DAILY [facility] Last Admin: 02/08/24 08:14 Dose: 100 mg Tramadol HCl (Tramadol Hcl 50 Mg Tablet) 100 mg PO Q8H PRN PRN Reason: severe pain Last Admin: 02/07/24 20:26 Dose: 100 mg Trazodone HCl (Trazodone Hcl 50 Mg Tablet) 50 mg PO BEDTIME MRX1 PRN PRN Reason: Insomnia Last Admin: 02/08/24 01:54 Dose: 50 mg Triamcinolone Acetonide (Triamcinolone Acet 0.1 % Cream 15 Gm Tube) 1 appl TOPICAL DAILY PRN PRN Reason: rash Vitamin D (Cholecalciferol (Vitamin D3) 25 Mcg Tablet) 25 mcg PO DAILY [facility] Last Admin: 02/08/24 08:17 Dose: 25 mcg Home Medications ?Medication ?Instructions ?Recorded ?Confirmed ?Last Taken ?Type lorazepam 1 mg tablet 1 mg PO BID PRN Anxiety 11/02/22 02/06/24 Unknown History potassium citrate 5 mEq (540 mg) 5 meq PO DAILY 06/13/23 02/06/24 01/21/24 History tablet,extended release melatonin 5 mg tablet 5 mg PO BEDTIME PRN Insomnia 07/14/23 02/06/24 Unknown History mirtazapine 15 mg tablet 15 mg PO BEDTIME 12/05/23 02/06/24 01/21/24 History naproxen 500 mg tablet 500 mg PO DAILY 12/05/23 02/06/24 01/21/24 History topiramate 100 mg tablet 100 mg PO DAILY 12/05/23 02/06/24 Unknown History albuterol sulfate 90 mcg/actuation 2 puff inhalation Q6H PRN wheezing 01/23/24 02/06/24 Unknown History aerosol inhaler (Ventolin HFA) diphenhydramine HCl 25 mg capsule 25 mg PO TID PRN allergies 01/23/24 02/06/24 Unknown History (Banophen) lurasidone 40 mg tablet 40 mg PO DAILY 01/23/24 02/06/24 01/21/24 History pantoprazole 40 mg tablet,delayed 40 mg PO DAILY@0630 01/23/24 02/06/24 01/21/24 History release Physical Exam Vital Signs: Vital Signs: Last Vital Signs Temp 98.3 F 02/08/24 08:00 Pulse 58 02/08/24 08:00 Resp 18 02/08/24 08:00 BP 91/53 L 02/08/24 08:00 Pulse Ox 96 02/08/24 08:00 O2 Del Method Room Air 02/08/24 08:00 Const: General: comfortable HEENT: Head: Yes normocephalic Neck: Neck: Yes supple Chest: Chest palpation & inspection: normal inspection of the chest Resp: Effort & Inspection: normal respiratory effort and able to speak in complete sentences Cardio: Heart sounds: S1 normal heart sound present and S2 normal heart sound present Skin: General skin exam: no rashes or lesions noted Extrem: General: No edema Assessment and Plan (1) Pulmonary embolism: Qualifiers: Pulmonary embolism type: multiple subsegmental (without acute cor pulmonale) Qualified Code(s): I26.94 - Multiple subsegmental thrombotic pulmonary emboli without acute cor pulmonale Status: Acute (2) Pre-op chest exam: Status: Acute Plan The patient is presenting with acute pulmonary emboli while being hospitalized after ECT. Therefore, will be reasonable to consider to be a provoked event. She will require anticoagulation with Eliquis for 3 months. During that time the patient will be reassess as an outpatient to make sure that the clot burden scan. As of now she still has blood clots since the anticoagulation she is going to keep the clots propagating and will take her body around 6-8 weeks to really clear the clots. It will take 2-3 weeks to stabilize the clot on the medicine at this point. Therefore so close to her recent diagnosis it is still on safe to stop the Eliquis. Recommendations: Continue the Eliquis 5 mg b.i.d. for a couple more weeks without interruption. Therefore, if she needs ECT in his she needs to be off the anticoagulation for the anesthesia part then would suggest waiting couple more weeks to stabilize the clot to minimize risk of further clot propagation. Consider bridging with Lovenox after the 2 weeks for any procedures. The patient will need follow-up as an outpatient to further discuss duration of therapy risk factors Procedures Date of Service Date of Service: 02/08/24
[2024-02-08 12:28] VITALS: BP 98/57
[2024-02-08] MEDS: risperiDONE 1 MG TABLET PO ×3 (12:30→21:16)
[2024-02-08] MEDS: LORazepam 1 MG TABLET PO ×2 (16:00→21:18)
[2024-02-08] MEDS: traMADoL HCL 50 MG TABLET 100 MG PO (16:00)
--- NOTE | 2024-02-08 16:07 | HO.PSYCHPN ---
Subjective Subjective Date of Service: 02/08/24 Reason For Visit: Depression Interim History: met with pt; discussed with team; discussed case with Anesthesiologist and pulm. pt remains very depressed, tearful and struggling worsening AH that tells her to kill self. Pt crying in room alone, but willing to come into day room and be around others with writers encouragement. Pt given Risperdal PRN to see if could help w/ AH (was on in past, though not remembered to be effective). She said it did help for a few hours, but then AH returned. Agreed to have it scheduled. Pt very much wants ECT Mental Status Exam Mental Status Exam Narrative: Pt is alert and oriented; behavior is cooperative, calm, tearful; dressed in casual pajamas with adequate grooming; mood is described as Depressed.. affect downcast, tearful; eye contact appropriate; Speech remains soft volume, slowed rate; normal prosody; psychomotor retardation present; thought process is goal oriented; Thought content is on symptoms, AH, tx; otherwise pertinent to relevant topics and without any delusional content, paranoid ideations or grandiosity; no SI; no HI; reports command AH. Patients insight and judgment impaired Diagnostics Vital Signs (24Hr): Vital Signs - 24 hr 02/07/24 17:45 02/07/24 20:00 02/08/24 02:10 Temperature Pulse Rate 97 Respiratory Rate 16 16 Blood Pressure 136/90 H 163/72 H Pulse Oximetry 97 Oxygen Delivery Method Room Air 02/08/24 08:00 02/08/24 12:28 Temperature 98.3 F Pulse Rate 58 Respiratory Rate 18 Blood Pressure 91/53 L 98/57 L Pulse Oximetry 96 Oxygen Delivery Method Room Air Medications Medications Current Medications Acetaminophen/Butalbital/Caffeine (Butalb/Acetamin/Caff 50/325/40 Tablet) 2 tab PO Q6H PRN PRN Reason: Migraine Headache Al Hydroxide/Mg Hydroxide (Magnesium Hydrox/Alum Hydrox 30 Ml Oral.Susp) 30 ml PO Q6H PRN PRN Reason: Heartburn/Nausea Albuterol Sulfate (Albuterol Sulfate 90 Mcg 8 Gm Inhaler) 2 puff INHALE RQ6H PRN PRN Reason: wheezing Apixaban (Apixaban 5 Mg Tablet) 5 mg PO BID JYOTHI Apixaban (Apixaban 5 Mg Tablet) 10 mg PO BID JYOTHI Stop: 02/12/24 23:59 Last Admin: 02/08/24 08:18 Dose: 10 mg Bisacodyl (Bisacodyl 5 Mg Tablet.Dr) 10 mg PO BEDTIME [facility] Last Admin: 02/07/24 20:26 Dose: 10 mg Cariprazine (Cariprazine Hcl 1.5 Mg Capsule) 4.5 mg PO DAILY [facility] Last Admin: 02/08/24 08:17 Dose: 4.5 mg Cyanocobalamin (Cyanocobalamin (Vitamin B-12) 500 Mcg Tablet) 500 mcg PO DAILY [facility] Last Admin: 02/08/24 08:16 Dose: 500 mcg Diphenhydramine HCl (Diphenhydramine Hcl 25 Mg Capsule) 25 mg PO TID PRN PRN Reason: allergies Last Admin: 02/07/24 20:26 Dose: 25 mg Docusate Sodium (Docusate Sodium 100 Mg Capsule) 100 mg PO DAILY [facility] Last Admin: 02/08/24 08:15 Dose: 100 mg Ferrous Sulfate (Ferrous Sulfate 324 Mg Tablet.) 324 mg PO DAILY [facility] Last Admin: 02/08/24 08:16 Dose: 324 mg Gabapentin (Gabapentin 400 Mg Capsule) 800 mg PO TID [facility] Last Admin: 02/08/24 15:20 Dose: 800 mg Hydroxyzine HCl (Hydroxyzine Hcl 25 Mg Tablet) 25 mg PO Q6H PRN PRN Reason: Anxiety Last Admin: 02/08/24 08:25 Dose: 25 mg Lorazepam (Lorazepam 1 Mg Tablet) 1 mg PO BID PRN PRN Reason: Anxiety Last Admin: 02/08/24 16:00 Dose: 1 mg Lurasidone HCl (Lurasidone Hcl 20 Mg Tablet) 60 mg PO DAILY@1800 [facility] Magnesium Hydroxide (Milk Of Magnesia 30 Ml Oral.Susp) 30 ml PO DAILY PRN PRN Reason: Constipation Meclizine HCl (Meclizine Hcl 25 Mg Tablet) 25 mg PO TID PRN PRN Reason: dizziness Melatonin (Melatonin 3 Mg Tablet) 9 mg PO BEDTIME PRN PRN Reason: Insomnia Last Admin: 02/07/24 20:26 Dose: 9 mg Midodrine (Midodrine Hcl 10 Mg Tablet) 10 mg PO TID@0900,1300,1800 [facility] Last Admin: 02/08/24 12:28 Dose: 10 mg Mirtazapine (Mirtazapine 15 Mg Tablet) 15 mg PO BEDTIME [facility] Last Admin: 02/07/24 20:52 Dose: 15 mg Nicotine Polacrilex (Nicotine Polacrilex 2 Mg Gum) 4 mg BUCCAL Q2H PRN PRN Reason: Nicotine Cravings Non-Formulary Medication (Potassium Citrate) 5 meq PO DAILY [facility] Pt Own (Rosuvastatin (5 Mg Tablet)) 5 mg PO DAILY [facility] Last Admin: 02/08/24 08:25 Dose: 5 mg Omeprazole (Omeprazole 20 Mg Capsule.Dr) 20 mg PO DAILY@0630 [facility] Last Admin: 02/08/24 06:45 Dose: 20 mg Risperidone (Risperidone 1 Mg Tablet) 1 mg PO BID PRN PRN Reason: AH Last Admin: 02/08/24 12:30 Dose: 1 mg Risperidone (Risperidone 1 Mg Tablet) 1 mg PO TID [facility] Topiramate (Topiramate 100 Mg Tablet) 100 mg PO DAILY [facility] Last Admin: 02/08/24 08:14 Dose: 100 mg Tramadol HCl (Tramadol Hcl 50 Mg Tablet) 100 mg PO Q8H PRN PRN Reason: severe pain Last Admin: 02/08/24 16:00 Dose: 100 mg Trazodone HCl (Trazodone Hcl 50 Mg Tablet) 50 mg PO BEDTIME MRX1 PRN PRN Reason: Insomnia Last Admin: 02/08/24 01:54 Dose: 50 mg Triamcinolone Acetonide (Triamcinolone Acet 0.1 % Cream 15 Gm Tube) 1 appl TOPICAL DAILY PRN PRN Reason: rash Vitamin D (Cholecalciferol (Vitamin D3) 25 Mcg Tablet) 25 mcg PO DAILY [facility] Last Admin: 02/08/24 08:17 Dose: 25 mcg Allergies Allergies Allergy/AdvReac Type Severity Reaction Status Date / Time acetaminophen AdvReac Unknown Unknown Verified 01/22/24 09:01 atorvastatin AdvReac Severe elevated Uncoded 01/22/24 09:01 liver enzymes Assessment & Plan Assessment & Plan (1) MDD (major depressive disorder), recurrent, severe, with psychosis: Status: Acute Code(s): F33.3 - Major depressive disorder, recurrent, severe with psychotic symptoms (2) Post traumatic stress disorder (PTSD): Status: Acute Code(s): F43.10 - Post-traumatic stress disorder, unspecified (3) Pulmonary embolism: Qualifiers: Pulmonary embolism type: multiple subsegmental (without acute cor pulmonale) Qualified Code(s): I26.94 - Multiple subsegmental thrombotic pulmonary emboli without acute cor pulmonale Status: Acute Code(s): I26.99 - Other pulmonary embolism without acute cor pulmonale (4) Chronic kidney disease, stage III (moderate): Qualifiers: Chronic kidney disease stage 3 subtype: stage 3a (GFR 45-59) Qualified Code(s): N18.31 - Chronic kidney disease, stage 3a Status: Acute Code(s): N18.30 - Chronic kidney disease, stage 3 unspecified Plan HPI: Patient is a 53-year-old female with history of MDD with psychotic features (r/o schizoaffective disorder, depressed type) PTSD, borderline traits, kidney cancer (one kidney). She first presented for admission for worsening depression and AH. Patient was feeling overall good enough until about 4 months ago. Without any obvious trigger, and despite continued adherence to medication regimen, she reports that her mood started to decline and AH (which is present independent of mood) became worse. Patient said she started having bad thoughts.. At which she became tearful and would not disclose them. She said her mood got worse and worse and voices told her to hurt herself; she started seeing shadow figures and having horrific nightmares where sometimes she can tell if she was awake or asleep but saw a ball of fire and things burning. AH worsened this past week and so patient self presented. She denies any history of manic type behaviors; ongoing PTSD symptoms. Patient does not remember history of med trials On M5, patient was started on Vraylar and ECT. She only received 2 ECT trials when she developed a pulmonary embolism; patient started on anticoagulation however ECT held. A few days later patient reported left-sided weakness which was evident on exam; she was transferred to medical floor, with head/neck CT/angiogram and then MRI; patient was diagnosed with complex migraine that can mimic a stroke; patient was stabilized and returned to the unit. There were some incidental findings which included thyroid nodules that medical team thought could be followed up as an outpatient. Now stabilized, patient returns to for continued treatment for depression. Patient reports she remains very depressed and continues to have AH which are very bothersome. Patient adamantly requests to restart ECT which she was hopeful would be helpful. Formulaton/clinical reasoning: Kiln Transfer Operator discussed case with patient's outpatient psychiatric provider Dr. Kathleen who has known patient for years. She reports that Patient has long history of depression, frequently severe, intermixed with PTSD symptoms, emotional reactivity; although patient endorses continue AH, Dr. Kathleen does not think necessarily an organic psychotic illness and only symptom is AH (no history of delusional thinking, no disorganized speech or behavior). Pt has had numerous medication trials with only partial response. Discussed treatment approaches and provider agrees that ECT trial is warranted; no benefit from Latuda thus far and although was only at 20 mg, agree to start Vraylar instead which maybe a little more robust in dealing with AH. Patient amenable to changing medications. Foyil? only one kidney so hesitant. Also considerations are OCD/[facility]: 02/07 complaining of worsened command AH to kill self; tearfu. Risperdal worked as PRN for few hours so she agreed to restart (failed in past). 1.continues on Vraylar 4.5mg daily: maybe helped with depression some, but AH remained 2.returned from Medical floor on Latuda (which was did not seem to help in past), but since so depressed and not sure if will get ECT, left it since monotherapy has not been effective (will leave for now, but likey dc) 3.Started on Risperdal 1mg TID since prn risperdal took away AH for a few hours 4. Currently on 3 antipsychotics but will likely dc some of them. -Regarding ECT, Discussed with Binder Stripper Hand Dr. Guthrie who reports pt does not need O2 and From a pulmonary standpoint, the patient is doing well, stable. She may proceed with anesthesia and ECT at this time as long as she can the anticoagulation without interruptions. -Discussed with Anesthesiologis Dr. Willett who agrees that pulm recs are sufficient to proceed with ECT and that pt can remain on anticoagulation PLAN: CV Q 15 minute checks Will restart ECT currently on Vraylar, Latuda and recently started on Risperdal. This is temporary and will continue to fine tune. Numerous failed Med trials: Haldol: got tremor abilify: wt gain risperidone Geodon Cymbalta, Effexor, Lexapro, Pristiq mirtazapine lamictal Medical comorbidities: 1. L-sided weakness: Resolved, transient: complex migraine; Neuro consulted, likely complex migraine rather than CVA/TIA. Sumatriptan contraindicated; use Fioricet prn; continue topiramate 2. transaminasemia - has been a recurrent problem in past; US with Dopplers + GI cosult pending; LFTs improving; 3. recently diagnosed PE 01/31 [R main PA + segmental branches of RLL] - was started on therapeutic enoxaparin; transitioned to apixaban 4.orthostatic hypotension, chronic; - continue midodrine 5. Incidental finding on CTA: possible thinning of semicircular canals bilaterally with question of dehiscence noted on CTA, incidental (ED contacted ENT) likely transient, follow up as outpt, no further workup at this time 6. Incidental finding on CTA: thyroid nodule, incidentally noted on CTA, 1.9 cm left; outpt f/u with thyroid US 7. IBS-C; bowel regimen, outpt GI f/u 8. asthma not in acute exac; prn albuterol 9. MIGUEL; CPAP at night Patient educated on: diagnosis, medication risk/benefits, ECT, therapeutic strategies and medical condition Informed Consent: understands Reason for continued inpatient stay Substantial Risk for: inability to function Time Spent With Patient Time: Total time managing care of this patient today ____ minutes.
[2024-02-08] MEDS: Lurasidone HCl 20 MG TABLET 60 MG PO (17:03)
[2024-02-08 17:04] VITALS: BP 94/63
[2024-02-08 20:00] VITALS: BP 94/53; PULSE 70; TEMP 36.4; O2SAT 98
[2024-02-08] MEDS: bisacodyL 5 MG TABLET.DR 10 MG PO (21:17)
[2024-02-08] MEDS: diphenhydrAMINE HCL 25 MG CAPSULE PO (21:18)
[2024-02-08] MEDS: Melatonin 3 MG TABLET 9 MG PO (21:19)
[2024-02-08] MEDS: Mirtazapine 15 MG TABLET PO (21:19)
[2024-02-09 02:06] VITALS: RESP 18
[2024-02-09] MEDS: Omeprazole 20 MG CAPSULE.DR PO (07:25)
[2024-02-09 08:00] VITALS: BP 89/53; PULSE 58; RESP 18; TEMP 36.9; O2SAT 97
--- NOTE | 2024-02-09 08:09 | P.PNPSI_ITS ---
Documented by User: Benigno Broussard MD 02/09/24 23:21 Subjective Subjective Date of Service: 02/09/24 Reason For Visit: Depression Guardianship: No Interim History: Pt seen chart reviewed case reviewed in treatment planning patient depressed withdrawn chronic hallucinations chronic intermittent SI question some improvement with recent medication denies active SI in this setting Patient is on a combination of Latuda Vraylar and Risperdal p.r.n. Mental Status Exam Mental Status Exam Narrative: Patient seen with aid of landfill gas technician Pt is alert and oriented; behavior is cooperative, calm, flat in appearance; dressed in casual pajamas with adequate grooming; mood is described as Depressed. Affect constricted blunted; eye contact appropriate; Speech remains soft volume, slowed rate; normal prosody; psychomotor retardation present; thought process is goal oriented; some poverty of content, at times intrusive hallucinations telling her to harm herself at times to harm others does not act on this paranoid ideations or grandiosity; no SI; no HI; reports command AH. Patients insight and judgment impaired Diagnostics Vital Signs (24Hr): Vital Signs - 24 hr 02/08/24 12:28 02/08/24 17:04 02/08/24 20:00 Temperature 97.6 F Pulse Rate 70 Respiratory Rate Blood Pressure 98/57 L 94/63 94/53 L Pulse Oximetry 98 Oxygen Delivery Method Room Air 02/09/24 02:06 Temperature Pulse Rate Respiratory Rate 18 Blood Pressure Pulse Oximetry Oxygen Delivery Method Medications Medications Current Medications Acetaminophen/Butalbital/Caffeine (Butalb/Acetamin/Caff 50/325/40 Tablet) 2 tab PO Q6H PRN PRN Reason: Migraine Headache Al Hydroxide/Mg Hydroxide (Magnesium Hydrox/Alum Hydrox 30 Ml Oral.Susp) 30 ml PO Q6H PRN PRN Reason: Heartburn/Nausea Albuterol Sulfate (Albuterol Sulfate 90 Mcg 8 Gm Inhaler) 2 puff INHALE RQ6H PRN PRN Reason: wheezing Apixaban (Apixaban 5 Mg Tablet) 5 mg PO BID JYOTHI Apixaban (Apixaban 5 Mg Tablet) 10 mg PO BID JYOTHI Stop: 02/12/24 23:59 Last Admin: 02/08/24 21:17 Dose: 10 mg Bisacodyl (Bisacodyl 5 Mg Tablet.Dr) 10 mg PO BEDTIME JYOTHI Last Admin: 02/08/24 21:17 Dose: 10 mg Cariprazine (Cariprazine Hcl 1.5 Mg Capsule) 4.5 mg PO DAILY [facility] Last Admin: 02/08/24 08:17 Dose: 4.5 mg Cyanocobalamin (Cyanocobalamin (Vitamin B-12) 500 Mcg Tablet) 500 mcg PO DAILY [facility] Last Admin: 02/08/24 08:16 Dose: 500 mcg Diphenhydramine HCl (Diphenhydramine Hcl 25 Mg Capsule) 25 mg PO TID PRN PRN Reason: allergies Last Admin: 02/08/24 21:18 Dose: 25 mg Docusate Sodium (Docusate Sodium 100 Mg Capsule) 100 mg PO DAILY [facility] Last Admin: 02/08/24 08:15 Dose: 100 mg Ferrous Sulfate (Ferrous Sulfate 324 Mg Tablet.Dr) 324 mg PO DAILY [facility] Last Admin: 02/08/24 08:16 Dose: 324 mg Gabapentin (Gabapentin 400 Mg Capsule) 800 mg PO TID [facility] Last Admin: 02/08/24 21:16 Dose: 800 mg Hydroxyzine HCl (Hydroxyzine Hcl 25 Mg Tablet) 25 mg PO Q6H PRN PRN Reason: Anxiety Last Admin: 02/08/24 08:25 Dose: 25 mg Lorazepam (Lorazepam 1 Mg Tablet) 1 mg PO BID PRN PRN Reason: Anxiety Last Admin: 02/08/24 21:18 Dose: 1 mg Lurasidone HCl (Lurasidone Hcl 20 Mg Tablet) 60 mg PO DAILY@1800 [facility] Last Admin: 02/08/24 17:03 Dose: 60 mg Magnesium Hydroxide (Milk Of Magnesia 30 Ml Oral.Susp) 30 ml PO DAILY PRN PRN Reason: Constipation Meclizine HCl (Meclizine Hcl 25 Mg Tablet) 25 mg PO TID PRN PRN Reason: dizziness Melatonin (Melatonin 3 Mg Tablet) 9 mg PO BEDTIME PRN PRN Reason: Insomnia Last Admin: 02/08/24 21:19 Dose: 9 mg Midodrine (Midodrine Hcl 10 Mg Tablet) 10 mg PO TID@0900,1300,1800 [facility] Last Admin: 02/08/24 17:04 Dose: 10 mg Mirtazapine (Mirtazapine 15 Mg Tablet) 15 mg PO BEDTIME [facility] Last Admin: 02/08/24 21:19 Dose: 15 mg Nicotine Polacrilex (Nicotine Polacrilex 2 Mg Gum) 4 mg BUCCAL Q2H PRN PRN Reason: Nicotine Cravings Non-Formulary Medication (Potassium Citrate) 5 meq PO DAILY [facility] Pt Own (Rosuvastatin (5 Mg Tablet)) 5 mg PO DAILY [facility] Last Admin: 02/08/24 08:25 Dose: 5 mg Omeprazole (Omeprazole 20 Mg Capsule.Dr) 20 mg PO DAILY@0630 [facility] Last Admin: 02/09/24 07:25 Dose: 20 mg Risperidone (Risperidone 1 Mg Tablet) 1 mg PO BID PRN PRN Reason: AH Last Admin: 02/08/24 12:30 Dose: 1 mg Risperidone (Risperidone 1 Mg Tablet) 1 mg PO TID [facility] Last Admin: 02/08/24 21:16 Dose: 1 mg Topiramate (Topiramate 100 Mg Tablet) 100 mg PO DAILY [facility] Last Admin: 02/08/24 08:14 Dose: 100 mg Tramadol HCl (Tramadol Hcl 50 Mg Tablet) 100 mg PO Q8H PRN PRN Reason: severe pain Last Admin: 02/08/24 16:00 Dose: 100 mg Trazodone HCl (Trazodone Hcl 50 Mg Tablet) 50 mg PO BEDTIME MRX1 PRN PRN Reason: Insomnia Last Admin: 02/08/24 21:20 Dose: 50 mg Triamcinolone Acetonide (Triamcinolone Acet 0.1 % Cream 15 Gm Tube) 1 appl TOPICAL DAILY PRN PRN Reason: rash Vitamin D (Cholecalciferol (Vitamin D3) 25 Mcg Tablet) 25 mcg PO DAILY [facility] Last Admin: 02/08/24 08:17 Dose: 25 mcg Allergies Allergies Allergy/AdvReac Type Severity Reaction Status Date / Time acetaminophen AdvReac Unknown Unknown Verified 01/22/24 09:01 atorvastatin AdvReac Severe elevated Uncoded 01/22/24 09:01 liver enzymes Assessment & Plan Assessment & Plan (1) MDD (major depressive disorder), recurrent, severe, with psychosis: Status: Acute Code(s): F33.3 - Major depressive disorder, recurrent, severe with psychotic symptoms (2) Post traumatic stress disorder (PTSD): Status: Acute Code(s): F43.10 - Post-traumatic stress disorder, unspecified (3) Pulmonary embolism: Qualifiers: Pulmonary embolism type: multiple subsegmental (without acute cor pulmonale) Qualified Code(s): I26.94 - Multiple subsegmental thrombotic pulmonary emboli without acute cor pulmonale Status: Acute Code(s): I26.99 - Other pulmonary embolism without acute cor pulmonale (4) MIGUEL (obstructive sleep apnea): Status: Acute Code(s): G47.33 - Obstructive sleep apnea (adult) (pediatric) (5) Chronic kidney disease, stage III (moderate): Qualifiers: Chronic kidney disease stage 3 subtype: stage 3a (GFR 45-59) Qualified Code(s): N18.31 - Chronic kidney disease, stage 3a Status: Acute Code(s): N18.30 - Chronic kidney disease, stage 3 unspecified Plan HPI: Patient is a 53-year-old female with history of MDD with psychotic features (r/o schizoaffective disorder, depressed type) PTSD, borderline traits, kidney cancer (one kidney). She first presented for admission for worsening depression and AH. Patient was feeling overall good enough until about 4 months ago. Without any obvious trigger, and despite continued adherence to medication regimen, she reports that her mood started to decline and AH (which is present independent of mood) became worse. Patient said she started having bad thoughts.. At which she became tearful and would not disclose them. She said her mood got worse and worse and voices told her to hurt herself; she started seeing shadow figures and having horrific nightmares where sometimes she can tell if she was awake or asleep but saw a ball of fire and things burning. AH worsened this past week and so patient self presented. She denies any history of manic type behaviors; ongoing PTSD symptoms. Patient does not remember history of med trials On M5, patient was started on Vraylar and ECT. She only received 2 ECT trials when she developed a pulmonary embolism; patient started on anticoagulation however ECT held. A few days later patient reported left-sided weakness which was evident on exam; she was transferred to medical floor, with head/neck C T/angiogram and then MRI; patient was diagnosed with complex migraine that can mimic a stroke; patient was stabilized and returned to the unit. There were some incidental findings which included thyroid nodules that medical team thought could be followed up as an outpatient. Now stabilized, patient returns to for continued treatment for depression. Patient reports she remains very depressed and continues to have AH which are very bothersome. Patient adamantly requests to restart ECT which she was hopeful would be helpful. Formulaton/clinical reasoning: Credit Rating Inspector discussed case with patient's outpatient psychiatric provider Dr. Kathleen who has known patient for years. She reports that Patient has long history of depression, frequently severe, intermixed with PTSD symptoms, emotional reactivity; although patient endorses continue AH, Dr. Kathleen does not think necessarily an organic psychotic illness and only symptom is AH (no history of delusional thinking, no disorganized speech or behavior). Pt has had numerous medication trials with only partial response. Discussed treatment approaches and provider agrees that ECT trial is warranted; no benefit from Latuda thus far and although was only at 20 mg, agree to start Vraylar instead which maybe a little more robust in dealing with AH. Patient amenable to changing medications. [place]? only one kidney so hesitant. Also considerations are OCD/JAMIE regarding dx, although pt has AH (which IS independent of mood), she has no other psychotic symptoms HOSPITAL COURSE: 02/07 complaining of worsened command AH to kill self; tearful. Risperdal worked as PRN for few hours so she agreed to restart (failed in past). 1.continues on Vraylar 4.5mg daily: maybe helped with depression some, but AH remained 2.returned from Medical floor on Latuda (which was did not seem to help in past), but since so depressed and not sure if will get ECT, left it since monotherapy has not been effective (will leave for now, but likey dc) 3.Started on Risperdal 1mg TID since prn risperdal took away AH for a few hours 4. Currently on 3 antipsychotics but will likely dc some of them. -Regarding ECT, Discussed with Relay Tester Dr. Guthrie who reports pt does not need O2 and From a pulmonary standpoint, the patient is doing well, stable. She may proceed with anesthesia and ECT at this time as long as she can the anticoagulation without interruptions. -Discussed with Anesthesiologis Dr. Willett who agrees that pulm recs are sufficient to proceed with ECT and that pt can remain on anticoagulation dx, although pt has AH (which IS independent of mood), she has no other psychotic symptoms 02/09/24 Discussed with pt sx with interpetr hx chronic hills depression hx depression ptsd ? dissociative hills would taper latuda ect when available next few days if remains unchanged some aspects of sx are chronic with recent exacerbation pt has been able to mainsafety no sob noted PLAN: CV Q 15 minute checks Will restart ECT currently on Vraylar, Latuda and recently started on Risperdal. This is temporary and will continue to fine tune. Numerous failed Med trials: Haldol: got tremor abilify: wt gain risperidone Geodon Cymbalta, Effexor, Lexapro, Pristiq mirtazapine lamictal Medical comorbidities: 1. L-sided weakness: Resolved, transient: complex migraine; Neuro consulted, likely complex migraine rather than CVA/TIA. Sumatriptan contraindicated; use Fioricet prn; continue topiramate 2. transaminasemia - has been a recurrent problem in past; US with Dopplers + GI cosult pending; LFTs improving; 3. recently diagnosed PE 01/31 [R main PA + segmental branches of RLL] - was started on therapeutic enoxaparin; transitioned to apixaban 4.orthostatic hypotension, chronic; - continue midodrine 5. Incidental finding on CTA: possible thinning of semicircular canals bilaterally with question of dehiscence noted on CTA, incidental (ED contacted ENT) likely transient, follow up as outpt, no further workup at this time 6. Incidental finding on CTA: thyroid nodule, incidentally noted on CTA, 1.9 cm left; outpt f/u with thyroid US 7. IBS-C; bowel regimen, outpt GI f/u 8. asthma not in acute exac; prn albuterol 9. MIGUEL; CPAP at night Reason for continued inpatient stay Substantial Risk for: harm to self, inability to function and rapid decompensation Time Spent With Patient Time: Total time managing care of this patient today ____ minutes. Documented by User: Umang Lau MD 02/13/24 23:13 Subjective Subjective Reason For Visit: Depression Assessment & Plan Assessment & Plan (1) MDD (major depressive disorder), recurrent, severe, with psychosis: Status: Acute Code(s): F33.3 - Major depressive disorder, recurrent, severe with psychotic symptoms (2) Post traumatic stress disorder (PTSD): Status: Acute Code(s): F43.10 - Post-traumatic stress disorder, unspecified (3) Pulmonary embolism: Qualifiers: Pulmonary embolism type: multiple subsegmental (without acute cor pulmonale) Qualified Code(s): I26.94 - Multiple subsegmental thrombotic pulmonary emboli without acute cor pulmonale Status: Acute Code(s): I26.99 - Other pulmonary embolism without acute cor pulmonale (4) MIGUEL (obstructive sleep apnea): Status: Acute Code(s): G47.33 - Obstructive sleep apnea (adult) (pediatric) (5) Chronic kidney disease, stage III (moderate): Qualifiers: Chronic kidney disease stage 3 subtype: stage 3a (GFR 45-59) Qualified Code(s): N18.31 - Chronic kidney disease, stage 3a Status: Acute Code(s): N18.30 - Chronic kidney disease, stage 3 unspecified Plan HPI: Patient is a 53-year-old female with history of MDD with psychotic features (r/o schizoaffective disorder, depressed type) PTSD, borderline traits, kidney cancer (one kidney). She first presented for admission for worsening depression and AH. Patient was feeling overall good enough until about 4 months ago. Without any obvious trigger, and despite continued adherence to medication regimen, she reports that her mood started to decline and AH (which is present independent of mood) became worse. Patient said she started having bad thoughts.. At which she became tearful and would not disclose them. She said her mood got worse and worse and voices told her to hurt herself; she started seeing shadow figures and having horrific nightmares where sometimes she can tell if she was awake or asleep but saw a ball of fire and things burning. AH worsened this past week and so patient self presented. She denies any history of manic type behaviors; ongoing PTSD symptoms. Patient does not remember history of med trials On M5, patient was started on Vraylar and ECT. She only received 2 ECT trials when she developed a pulmonary embolism; patient started on anticoagulation [place] ECT held. A few days later patient reported left-sided weakness which was evident on exam; she was transferred to medical floor, with head/neck CT/angiogram and then MRI; patient was diagnosed with complex migraine that can mimic a stroke; patient was stabilized and returned to the unit. There were some incidental findings which included thyroid nodules that medical team thought could be followed up as an outpatient. Now stabilized, patient returns to for continued treatment for depression. Patient reports she remains very depressed and continues to have AH which are very bothersome. Patient adamantly requests to restart ECT which she was hopeful would be helpful. Formulaton/clinical reasoning: Credit Rating Inspector discussed case with patient's outpatient psychiatric provider Dr. Kathleen who has known patient for years. She reports that Patient has long history of depression, frequently severe, intermixed with PTSD symptoms, emotional reactivity; although patient endorses continue AH, Dr. Kathleen does not think necessarily an organic psychotic illness and only symptom is AH (no history of delusional thinking, no disorganized speech or behavior). Pt has had numerous medication trials with only partial response. Discussed treatment approaches and provider agrees that ECT trial is warranted; no benefit from Latuda thus far and although was only at 20 mg, agree to start Vraylar instead which maybe a little more robust in dealing with AH. Patient amenable to changing medications. [place]? only one kidney so hesitant. Also considerations are OCD/JAMIE regarding dx, although pt has AH (which IS independent of mood), she has no other psychotic symptoms HOSPITAL COURSE: 02/07 complaining of worsened command AH to kill self; tearful. Risperdal worked as PRN for few hours so she agreed to restart (failed in past). 1.continues on Vraylar 4.5mg daily: maybe helped with depression some, but AH remained 2.returned from Medical floor on Latuda (which was did not seem to help in past), but since so depressed and not sure if will get ECT, left it since monotherapy has not been effective (will leave for now, but likey dc) 3.Started on Risperdal 1mg TID since prn risperdal took away AH for a few hours 4. Currently on 3 antipsychotics but will likely dc some of them. -Regarding ECT, Discussed with Relay Tester Dr. Guthrie who reports pt does not need O2 and From a pulmonary standpoint, the patient is doing well, stable. She may proceed with anesthesia and ECT at this time as long as she can the anticoagulation without interruptions. -Discussed with Anesthesiologis Dr. Willett who agrees that pulm recs are sufficient to proceed with ECT and that pt can remain on anticoagulation dx, although pt has AH (which IS independent of mood), she has no other psychotic symptoms PLAN: CV Q 15 minute checks Will restart ECT currently on Vraylar, Latuda and recently started on Risperdal. This is temporary and will continue to fine tune. Numerous failed Med trials: Haldol: got tremor abilify: wt gain risperidone Geodon Cymbalta, Effexor, Lexapro, Pristiq mirtazapine lamictal Medical comorbidities: 1. L-sided weakness: Resolved, transient: complex migraine; Neuro consulted, likely complex migraine rather than CVA/TIA. Sumatriptan contraindicated; use Fioricet prn; continue topiramate 2. transaminasemia - has been a recurrent problem in past; US with Dopplers + GI cosult pending; LFTs improving; 3. recently diagnosed PE 01/31 [R main PA + segmental branches of RLL] - was started on therapeutic enoxaparin; transitioned to apixaban 4.orthostatic hypotension, chronic; - continue midodrine 5. Incidental finding on CTA: possible thinning of semicircular canals bilaterally with question of dehiscence noted on CTA, incidental (ED contacted ENT) likely transient, follow up as outpt, no further workup at this time 6. Incidental finding on CTA: thyroid nodule, incidentally noted on CTA, 1.9 cm left; outpt f/u with thyroid US 7. IBS-C; bowel regimen, outpt GI f/u 8. asthma not in acute exac; prn albuterol 9. MIGUEL; CPAP at night
[2024-02-09] MEDS: Docusate Sodium 100 MG CAPSULE PO (09:31)
[2024-02-09] MEDS: Apixaban 5 MG TABLET 10 MG PO ×2 (09:34→20:28)
[2024-02-09] MEDS: Midodrine HCl 10 MG TABLET PO ×3 (09:35→17:34)
[2024-02-09] MEDS: Ferrous Sulfate 324 MG TABLET.DR PO (09:36)
[2024-02-09] MEDS: Topiramate 100 MG TABLET PO (09:36)
[2024-02-09] MEDS: risperiDONE 1 MG TABLET PO ×3 (09:36→20:30)
[2024-02-09] MEDS: Gabapentin 400 MG CAPSULE 800 MG PO ×3 (09:36→20:29)
[2024-02-09] MEDS: Cyanocobalamin (Vitamin B-12) 500 MCG TABLET PO (09:36)
[2024-02-09] MEDS: Cholecalciferol (Vitamin D3) 25 MCG TABLET PO (09:36)
[2024-02-09] MEDS: Cariprazine HCl 1.5 MG CAPSULE 4.5 MG PO (09:37)
[2024-02-09] MEDS: ROSUVASTATIN 5 MG 5 EACH PO (09:40)
[2024-02-09 12:58] VITALS: BP 115/68; PULSE 84; O2SAT 99
[2024-02-09 16:40] VITALS: BP 103/62; PULSE 74; RESP 18; O2SAT 98
[2024-02-09 17:31] VITALS: BP 112/80; PULSE 74; RESP 18; O2SAT 100
[2024-02-09] MEDS: Lurasidone HCl 20 MG TABLET 60 MG PO (17:34)
[2024-02-09 20:00] VITALS: BP 121/79; PULSE 87; RESP 18; TEMP 36.4; O2SAT 96
[2024-02-09] MEDS: Melatonin 3 MG TABLET 9 MG PO (20:29)
[2024-02-09] MEDS: Mirtazapine 15 MG TABLET PO (20:29)
[2024-02-09] MEDS: diphenhydrAMINE HCL 25 MG CAPSULE PO (20:29)
[2024-02-09] MEDS: bisacodyL 5 MG TABLET.DR 10 MG PO (20:30)
[2024-02-09] MEDS: traZODone HCL 50 MG TABLET PO (20:30)
[2024-02-10 00:31] VITALS: RESP 18
[2024-02-10] MEDS: traZODone HCL 50 MG TABLET PO (02:07)
[2024-02-10 08:37] VITALS: BP 104/56; PULSE 61; RESP 20; TEMP 36.5; O2SAT 96
[2024-02-10] MEDS: Omeprazole 20 MG CAPSULE.DR PO ×2 (09:23)
[2024-02-10] MEDS: Cyanocobalamin (Vitamin B-12) 500 MCG TABLET PO (09:24)
[2024-02-10] MEDS: Cariprazine HCl 1.5 MG CAPSULE 4.5 MG PO (09:24)
[2024-02-10] MEDS: Apixaban 5 MG TABLET 10 MG PO ×2 (09:25→20:31)
[2024-02-10] MEDS: Gabapentin 400 MG CAPSULE 800 MG PO ×3 (09:26→20:31)
[2024-02-10] MEDS: Docusate Sodium 100 MG CAPSULE PO (09:26)
[2024-02-10] MEDS: Ferrous Sulfate 324 MG TABLET.DR PO (09:26)
[2024-02-10] MEDS: Midodrine HCl 10 MG TABLET PO ×3 (09:27→16:59)
[2024-02-10] MEDS: Cholecalciferol (Vitamin D3) 25 MCG TABLET PO (09:28)
[2024-02-10] MEDS: Topiramate 100 MG TABLET PO (09:30)
[2024-02-10] MEDS: ROSUVASTATIN 5 MG 5 EACH PO (09:31)
[2024-02-10] MEDS: risperiDONE 1 MG TABLET PO ×3 (09:32→20:31)
--- NOTE | 2024-02-10 10:42 | P.PNPSI_ITS ---
Subjective Subjective Date of Service: 02/10/24 Reason For Visit: Depression Subjective Notes: Conditional Voluntary Interim History: Patient was seen and discussed in rounds today. Records and plans were reviewed. She was started on Risperdal. No complaints or side effects reported. ECT is being considered. Passive suicidal ideations reported. No dangerous behaviors. Continues to have somatic complaints. Review of Systems Review of Systems Yes all other systems are reviewed and are negative Mental Status Exam Mental Status Exam Narrative: Alert, pleasant and interactive. Normal speech. Moderate eye contact. Affect is constricted and subdued. No active SI but has had passive SI. Cognitively appears grossly intact. Able to move all limbs. No abnormalities of gait Diagnostics Vital Signs (24Hr): Vital Signs - 24 hr 02/09/24 12:58 02/09/24 16:40 02/09/24 17:31 Temperature Pulse Rate 84 74 74 Respiratory Rate 18 18 Blood Pressure 115/68 103/62 112/80 Pulse Oximetry 99 98 100 Oxygen Delivery Method Room Air Room Air Room Air 02/09/24 20:00 02/10/24 00:31 02/10/24 08:37 Temperature 97.6 F 97.7 F Pulse Rate 87 61 Respiratory Rate 18 18 20 Blood Pressure 121/79 104/56 L Pulse Oximetry 96 96 Oxygen Delivery Method Room Air Room Air Medications Medications Current Medications Acetaminophen/Butalbital/Caffeine (Butalb/Acetamin/Caff 50/325/40 Tablet) 2 tab PO Q6H PRN PRN Reason: Migraine Headache Al Hydroxide/Mg Hydroxide (Magnesium Hydrox/Alum Hydrox 30 Ml Oral.Susp) 30 ml PO Q6H PRN PRN Reason: Heartburn/Nausea Albuterol Sulfate (Albuterol Sulfate 90 Mcg 8 Gm Inhaler) 2 puff INHALE RQ6H PRN PRN Reason: wheezing Apixaban (Apixaban 5 Mg Tablet) 5 mg PO BID [facility] Apixaban (Apixaban 5 Mg Tablet) 10 mg PO BID [facility] Stop: 02/12/24 23:59 Last Admin: 02/10/24 09:25 Dose: 10 mg Bisacodyl (Bisacodyl 5 Mg Tablet.) 10 mg PO BEDTIME [facility] Last Admin: 02/09/24 20:30 Dose: 10 mg Cariprazine (Cariprazine Hcl 1.5 Mg Capsule) 4.5 mg PO DAILY [facility] Last Admin: 02/10/24 09:24 Dose: 4.5 mg Cyanocobalamin (Cyanocobalamin (Vitamin B-12) 500 Mcg Tablet) 500 mcg PO DAILY [facility] Last Admin: 02/10/24 09:24 Dose: 500 mcg Diphenhydramine HCl (Diphenhydramine Hcl 25 Mg Capsule) 25 mg PO TID PRN PRN Reason: allergies Last Admin: 02/09/24 20:29 Dose: 25 mg Docusate Sodium (Docusate Sodium 100 Mg Capsule) 100 mg PO DAILY [facility] Last Admin: 02/10/24 09:26 Dose: 100 mg Ferrous Sulfate (Ferrous Sulfate 324 Mg Tablet.Dr) 324 mg PO DAILY [facility] Last Admin: 02/10/24 09:26 Dose: 324 mg Gabapentin (Gabapentin 400 Mg Capsule) 800 mg PO TID [facility] Last Admin: 02/10/24 09:26 Dose: 800 mg Hydroxyzine HCl (Hydroxyzine Hcl 25 Mg Tablet) 25 mg PO Q6H PRN PRN Reason: Anxiety Last Admin: 02/08/24 08:25 Dose: 25 mg Lorazepam (Lorazepam 1 Mg Tablet) 1 mg PO BID PRN PRN Reason: Anxiety Last Admin: 02/08/24 21:18 Dose: 1 mg Lurasidone HCl (Lurasidone Hcl 20 Mg Tablet) 60 mg PO DAILY@1800 [facility] Last Admin: 02/09/24 17:34 Dose: 60 mg Magnesium Hydroxide (Milk Of Magnesia 30 Ml Oral.Susp) 30 ml PO DAILY PRN PRN Reason: Constipation Meclizine HCl (Meclizine Hcl 25 Mg Tablet) 25 mg PO TID PRN PRN Reason: dizziness Melatonin (Melatonin 3 Mg Tablet) 9 mg PO BEDTIME PRN PRN Reason: Insomnia Last Admin: 02/09/24 20:29 Dose: 9 mg Midodrine (Midodrine Hcl 10 Mg Tablet) 10 mg PO TID@0900,1300,1800 [facility] Last Admin: 02/10/24 09:27 Dose: 10 mg Mirtazapine (Mirtazapine 15 Mg Tablet) 15 mg PO BEDTIME [facility] Last Admin: 02/09/24 20:29 Dose: 15 mg Nicotine Polacrilex (Nicotine Polacrilex 2 Mg Gum) 4 mg BUCCAL Q2H PRN PRN Reason: Nicotine Cravings Non-Formulary Medication (Potassium Citrate) 5 meq PO DAILY [facility] Pt Own (Rosuvastatin (5 Mg Tablet)) 5 mg PO DAILY [facility] Last Admin: 02/10/24 09:31 Dose: 5 mg Omeprazole (Omeprazole 20 Mg Capsule.Dr) 20 mg PO DAILY@0630 [facility] Last Admin: 02/10/24 09:23 Dose: 20 mg Risperidone (Risperidone 1 Mg Tablet) 1 mg PO BID PRN PRN Reason: AH Last Admin: 02/08/24 12:30 Dose: 1 mg Risperidone (Risperidone 1 Mg Tablet) 1 mg PO TID [facility] Last Admin: 02/10/24 09:32 Dose: 1 mg Topiramate (Topiramate 100 Mg Tablet) 100 mg PO DAILY [facility] Last Admin: 02/10/24 09:30 Dose: 100 mg Tramadol HCl (Tramadol Hcl 50 Mg Tablet) 100 mg PO Q8H PRN PRN Reason: severe pain Last Admin: 02/08/24 16:00 Dose: 100 mg Trazodone HCl (Trazodone Hcl 50 Mg Tablet) 50 mg PO BEDTIME MRX1 PRN PRN Reason: Insomnia Last Admin: 02/10/24 02:07 Dose: 50 mg Triamcinolone Acetonide (Triamcinolone Acet 0.1 % Cream 15 Gm Tube) 1 appl TOPICAL DAILY PRN PRN Reason: rash Vitamin D (Cholecalciferol (Vitamin D3) 25 Mcg Tablet) 25 mcg PO DAILY [facility] Last Admin: 02/10/24 09:28 Dose: 25 mcg Allergies Allergies Allergy/AdvReac Type Severity Reaction Status Date / Time acetaminophen AdvReac Unknown Unknown Verified 01/22/24 09:01 atorvastatin AdvReac Severe elevated Uncoded 01/22/24 09:01 liver enzymes Assessment & Plan Assessment & Plan (1) MDD (major depressive disorder), recurrent, severe, with psychosis: Status: Acute Code(s): F33.3 - Major depressive disorder, recurrent, severe with psychotic symptoms (2) Post traumatic stress disorder (PTSD): Status: Acute Code(s): F43.10 - Post-traumatic stress disorder, unspecified (3) Pulmonary embolism: Qualifiers: Pulmonary embolism type: multiple subsegmental (without acute cor pulmonale) Qualified Code(s): I26.94 - Multiple subsegmental thrombotic pulmonary emboli without acute cor pulmonale Status: Acute Code(s): I26.99 - Other pulmonary embolism without acute cor pulmonale (4) MIGUEL (obstructive sleep apnea): Status: Acute Code(s): G47.33 - Obstructive sleep apnea (adult) (pediatric) (5) Chronic kidney disease, stage III (moderate): Qualifiers: Chronic kidney disease stage 3 subtype: stage 3a (GFR 45-59) Qualified Code(s): N18.31 - Chronic kidney disease, stage 3a Status: Acute Code(s): N18.30 - Chronic kidney disease, stage 3 unspecified Plan HPI: Patient is a 53-year-old female with history of MDD with psychotic features (r/o schizoaffective disorder, depressed type) PTSD, borderline traits, kidney cancer (one kidney). She first presented for admission for worsening depression and AH. Patient was feeling overall good enough until about 4 months ago. Without any obvious trigger, and despite continued adherence to medication regimen, she reports that her mood started to decline and AH (which is present independent of mood) became worse. Patient said she started having bad thoughts.. At which she became tearful and would not disclose them. She said her mood got worse and worse and voices told her to hurt herself; she started seeing shadow figures and having horrific nightmares where sometimes she can tell if she was awake or asleep but saw a ball of fire and things burning. AH worsened this past week and so patient self presented. She denies any history of manic type behaviors; ongoing PTSD symptoms. Patient does not remember history of med trials On M5, patient was started on Vraylar and ECT. She only received 2 ECT trials when she developed a pulmonary embolism; patient started on anticoagulation however ECT held. A few days later patient reported left-sided weakness which was evident on exam; she was transferred to medical floor, with head/neck CT/angiogram and then MRI; patient was diagnosed with complex migraine that can mimic a stroke; patient was stabilized and returned to the unit. There were some incidental findings which included thyroid nodules that medical team thought could be followed up as an outpatient. Now stabilized, patient returns to for continued treatment for depression. Patient reports she remains very depressed and continues to have AH which are very bothersome. Patient adamantly requests to restart ECT which she was hopeful would be helpful. Formulaton/clinical reasoning: Insurance Claim Auditor discussed case with patient's outpatient psychiatric provider Dr. Kathleen who has known patient for years. She reports that Patient has long history of depression, frequently severe, intermixed with PTSD symptoms, emotional reactivity; although patient endorses continue AH, Dr. Kathleen does not think necessarily an organic psychotic illness and only symptom is AH (no hi story of delusional thinking, no disorganized speech or behavior). Pt has had numerous medication trials with only partial response. Discussed treatment approaches and provider agrees that ECT trial is warranted; no benefit from Latuda thus far and although was only at 20 mg, agree to start Vraylar instead which maybe a little more robust in dealing with AH. Patient amenable to changing medications. [place]? only one kidney so hesitant. Also considerations are OCD/JAMIE regarding dx, although pt has AH (which IS independent of mood), she has no other psychotic symptoms HOSPITAL COURSE: 02/07 complaining of worsened command AH to kill self; tearful. Risperdal worked as PRN for few hours so she agreed to restart (failed in past). 1.continues on Vraylar 4.5mg daily: maybe helped with depression some, but AH remained 2.returned from Medical floor on Latuda (which was did not seem to help in past), but since so depressed and not sure if will get ECT, left it since monotherapy has not been effective (will leave for now, but likey dc) 3.Started on Risperdal 1mg TID since prn risperdal took away AH for a few hours 4. Currently on 3 antipsychotics but will likely dc some of them. -Regarding ECT, Discussed with Forming Machine Operator Dr. Guthrie who reports pt does not need O2 and From a pulmonary standpoint, the patient is doing well, stable. She may proceed with anesthesia and ECT at this time as long as she can the anticoagulation without interruptions. -Discussed with Anesthesiologis Dr. Willett who agrees that pulm recs are sufficient to proceed with ECT and that pt can remain on anticoagulation dx, although pt has AH (which IS independent of mood), she has no other psychotic symptoms 02/09/24 Discussed with pt sx with interpetr hx chronic hills depression hx depression ptsd ? dissociative hills would taper latuda ect when available next few days if remains unchanged some aspects of sx are chronic with recent exacerbation pt has been able to mainsafety no sob noted 02/09: Continue current regimen and plans PLAN: CV Q 15 minute checks Will restart ECT currently on Vraylar, Latuda and recently started on Risperdal. This is temporary and will continue to fine tune. Numerous failed Med trials: Haldol: got tremor abilify: wt gain risperidone Geodon Cymbalta, Effexor, Lexapro, Pristiq mirtazapine lamictal Medical comorbidities: 1. L-sided weakness: Resolved, transient: complex migraine; Neuro consulted, likely complex migraine rather than CVA/TIA. Sumatriptan contraindicated; use Fioricet prn; continue topiramate 2. transaminasemia - has been a recurrent problem in past; US with Dopplers + GI cosult pending; LFTs improving; 3. recently diagnosed PE 01/31 [R main PA + segmental branches of RLL] - was started on therapeutic enoxaparin; transitioned to apixaban 4.orthostatic hypotension, chronic; - continue midodrine 5. Incidental finding on CTA: possible thinning of semicircular canals bilaterally with question of dehiscence noted on CTA, incidental (ED contacted ENT) likely transient, follow up as outpt, no further workup at this time 6. Incidental finding on CTA: thyroid nodule, incidentally noted on CTA, 1.9 cm left; outpt f/u with thyroid US 7. IBS-C; bowel regimen, outpt GI f/u 8. asthma not in acute exac; prn albuterol 9. MIGUEL; CPAP at night Reason for continued inpatient stay Substantial Risk for: harm to self and med/psych decompensation Time Spent With Patient Time: Total time managing care of this patient today ____ minutes.
[2024-02-10 12:23] VITALS: BP 117/60
[2024-02-10] MEDS: Hydrocortisone 2.5 % Rectal Cr 30 GM TUBE 1 APPL PR (14:21)
[2024-02-10 16:59] VITALS: BP 123/68
[2024-02-10] MEDS: Lurasidone HCl 20 MG TABLET 60 MG PO (17:05)
[2024-02-10 20:30] VITALS: BP 110/64; PULSE 66; RESP 16; TEMP 36.6; O2SAT 98
[2024-02-10] MEDS: Melatonin 3 MG TABLET 9 MG PO (20:30)
[2024-02-10] MEDS: diphenhydrAMINE HCL 25 MG CAPSULE PO (20:30)
[2024-02-10] MEDS: Mirtazapine 15 MG TABLET PO (20:31)
[2024-02-10] MEDS: bisacodyL 5 MG TABLET.DR 10 MG PO (20:31)
[2024-02-11 00:37] VITALS: RESP 16
[2024-02-11] MEDS: Docusate Sodium 100 MG CAPSULE PO (08:29)
[2024-02-11] MEDS: Omeprazole 20 MG CAPSULE.DR PO (08:29)
[2024-02-11] MEDS: Topiramate 100 MG TABLET PO (08:29)
[2024-02-11] MEDS: Ferrous Sulfate 324 MG TABLET.DR PO (08:29)
[2024-02-11] MEDS: Cariprazine HCl 1.5 MG CAPSULE 4.5 MG PO (08:29)
[2024-02-11] MEDS: Apixaban 5 MG TABLET 10 MG PO ×2 (08:29→20:42)
[2024-02-11] MEDS: Cholecalciferol (Vitamin D3) 25 MCG TABLET PO (08:29)
[2024-02-11] MEDS: Midodrine HCl 10 MG TABLET PO ×3 (08:29→16:54)
[2024-02-11] MEDS: Gabapentin 400 MG CAPSULE 800 MG PO ×3 (08:30→20:43)
[2024-02-11] MEDS: Cyanocobalamin (Vitamin B-12) 500 MCG TABLET PO (08:30)
[2024-02-11] MEDS: risperiDONE 1 MG TABLET PO ×3 (08:30→20:44)
[2024-02-11] MEDS: Hydrocortisone 2.5 % Rectal Cr 30 GM TUBE 1 APPL PR ×2 (08:35→20:43)
[2024-02-11] MEDS: ROSUVASTATIN 5 MG 5 EACH PO (08:35)
[2024-02-11 09:11] VITALS: BP 127/58; PULSE 58; RESP 16; TEMP 36.4; O2SAT 99
--- NOTE | 2024-02-11 09:38 | HO.PSYCHPN ---
Subjective Subjective Date of Service: 02/11/24 Reason For Visit: Depression Subjective Notes: Conditional Voluntary Interim History: Patient was seen and discussed in rounds today. Records and plans were reviewed. She was seen with an chargeback specialist. She has been isolative and continues to endorse depression and anxiety. Some decrease in auditory hallucinations. She states that she discovered a small blob on her right lower abdomen. To touch it appears to be a 1-2 cm hard, probably fat globule. No SI. No changes were made today Review of Systems Review of Systems Small fat globule Yes all other systems are reviewed and are negative Mental Status Exam Mental Status Exam Narrative: Alert, pleasant and interactive. Normal speech. Moderate eye contact. Affect is constricted but a little brighter. No active SI but has had passive SI. Cognitively appears grossly intact. Able to move all limbs. No abnormalities of gait Diagnostics Vital Signs (24Hr): Vital Signs - 24 hr 02/10/24 12:23 02/10/24 16:59 02/10/24 20:30 Temperature 97.9 F Pulse Rate 66 Respiratory Rate 16 Blood Pressure 117/60 123/68 110/64 Pulse Oximetry 98 Oxygen Delivery Method Room Air 02/11/24 00:37 02/11/24 09:11 Temperature 97.6 F Pulse Rate 58 Respiratory Rate 16 16 Blood Pressure 127/58 L Pulse Oximetry 99 Oxygen Delivery Method Room Air Medications Medications Current Medications Acetaminophen/Butalbital/Caffeine (Butalb/Acetamin/Caff 50/325/40 Tablet) 2 tab PO Q6H PRN PRN Reason: Migraine Headache Al Hydroxide/Mg Hydroxide (Magnesium Hydrox/Alum Hydrox 30 Ml Oral.Susp) 30 ml PO Q6H PRN PRN Reason: Heartburn/Nausea Albuterol Sulfate (Albuterol Sulfate 90 Mcg 8 Gm Inhaler) 2 puff INHALE RQ6H PRN PRN Reason: wheezing Apixaban (Apixaban 5 Mg Tablet) 5 mg PO BID JYOTHI Apixaban (Apixaban 5 Mg Tablet) 10 mg PO BID [facility] Stop: 02/12/24 23:59 Last Admin: 02/11/24 08:29 Dose: 10 mg Bisacodyl (Bisacodyl 5 Mg Tablet.Dr) 10 mg PO BEDTIME [facility] Last Admin: 02/10/24 20:31 Dose: 10 mg Cariprazine (Cariprazine Hcl 1.5 Mg Capsule) 4.5 mg PO DAILY [facility] Last Admin: 02/11/24 08:29 Dose: 4.5 mg Cyanocobalamin (Cyanocobalamin (Vitamin B-12) 500 Mcg Tablet) 500 mcg PO DAILY [facility] Last Admin: 02/11/24 08:30 Dose: 500 mcg Diphenhydramine HCl (Diphenhydramine Hcl 25 Mg Capsule) 25 mg PO TID PRN PRN Reason: allergies Last Admin: 02/10/24 20:30 Dose: 25 mg Docusate Sodium (Docusate Sodium 100 Mg Capsule) 100 mg PO DAILY [facility] Last Admin: 02/11/24 08:29 Dose: 100 mg Ferrous Sulfate (Ferrous Sulfate 324 Mg Tablet.Dr) 324 mg PO DAILY [facility] Last Admin: 02/11/24 08:29 Dose: 324 mg Gabapentin (Gabapentin 400 Mg Capsule) 800 mg PO TID [facility] Last Admin: 02/11/24 08:30 Dose: 800 mg Hydrocortisone (Hydrocortisone 2.5 % Rectal Cr 30 Gm Tube) 1 appl MN BID [facility] Last Admin: 02/11/24 08:35 Dose: 1 appl Hydroxyzine HCl (Hydroxyzine Hcl 25 Mg Tablet) 25 mg PO Q6H PRN PRN Reason: Anxiety Last Admin: 02/08/24 08:25 Dose: 25 mg Lorazepam (Lorazepam 1 Mg Tablet) 1 mg PO BID PRN PRN Reason: Anxiety Last Admin: 02/08/24 21:18 Dose: 1 mg Lurasidone HCl (Lurasidone Hcl 20 Mg Tablet) 60 mg PO DAILY@1800 [facility] Last Admin: 02/10/24 17:05 Dose: 60 mg Magnesium Hydroxide (Milk Of Magnesia 30 Ml Oral.Susp) 30 ml PO DAILY PRN PRN Reason: Constipation Meclizine HCl (Meclizine Hcl 25 Mg Tablet) 25 mg PO TID PRN PRN Reason: dizziness Melatonin (Melatonin 3 Mg Tablet) 9 mg PO BEDTIME PRN PRN Reason: Insomnia Last Admin: 02/10/24 20:30 Dose: 9 mg Midodrine (Midodrine Hcl 10 Mg Tablet) 10 mg PO TID@0900,1300,1800 [facility] Last Admin: 02/11/24 08:29 Dose: 10 mg Mirtazapine (Mirtazapine 15 Mg Tablet) 15 mg PO BEDTIME [facility] Last Admin: 02/10/24 20:31 Dose: 15 mg Nicotine Polacrilex (Nicotine Polacrilex 2 Mg Gum) 4 mg BUCCAL Q2H PRN PRN Reason: Nicotine Cravings Non-Formulary Medication (Potassium Citrate) 5 meq PO DAILY [facility] Pt Own (Rosuvastatin (5 Mg Tablet)) 5 mg PO DAILY [facility] Last Admin: 02/11/24 08:35 Dose: 5 mg Omeprazole (Omeprazole 20 Mg Capsule.Dr) 20 mg PO DAILY@0630 [facility] Last Admin: 02/11/24 08:29 Dose: 20 mg Risperidone (Risperidone 1 Mg Tablet) 1 mg PO BID PRN PRN Reason: AH Last Admin: 02/08/24 12:30 Dose: 1 mg Risperidone (Risperidone 1 Mg Tablet) 1 mg PO TID [facility] Last Admin: 02/11/24 08:30 Dose: 1 mg Topiramate (Topiramate 100 Mg Tablet) 100 mg PO DAILY [facility] Last Admin: 02/11/24 08:29 Dose: 100 mg Tramadol HCl (Tramadol Hcl 50 Mg Tablet) 100 mg PO Q8H PRN PRN Reason: severe pain Last Admin: 02/08/24 16:00 Dose: 100 mg Trazodone HCl (Trazodone Hcl 50 Mg Tablet) 50 mg PO BEDTIME MRX1 PRN PRN Reason: Insomnia Last Admin: 02/10/24 02:07 Dose: 50 mg Triamcinolone Acetonide (Triamcinolone Acet 0.1 % Cream 15 Gm Tube) 1 appl TOPICAL DAILY PRN PRN Reason: rash Vitamin D (Cholecalciferol (Vitamin D3) 25 Mcg Tablet) 25 mcg PO DAILY [facility] Last Admin: 02/11/24 08:29 Dose: 25 mcg Allergies Allergies Allergy/AdvReac Type Severity Reaction Status Date / Time acetaminophen AdvReac Unknown Unknown Verified 01/22/24 09:01 atorvastatin AdvReac Severe elevated Uncoded 01/22/24 09:01 liver enzymes Assessment & Plan Assessment & Plan (1) MDD (major depressive disorder), recurrent, severe, with psychosis: Status: Acute Code(s): F33.3 - Major depressive disorder, recurrent, severe with psychotic symptoms (2) Post traumatic stress disorder (PTSD): Status: Acute Code(s): F43.10 - Post-traumatic stress disorder, unspecified (3) Pulmonary embolism: Qualifiers: Pulmonary embolism type: multiple subsegmental (without acute cor pulmonale) Qualified Code(s): I26.94 - Multiple subsegmental thrombotic pulmonary emboli without acute cor pulmonale Status: Acute Code(s): I26.99 - Other pulmonary embolism without acute cor pulmonale (4) MIGUEL (obstructive sleep apnea): Status: Acute Code(s): G47.33 - Obstructive sleep apnea (adult) (pediatric) (5) Chronic kidney disease, stage III (moderate): Qualifiers: Chronic kidney disease stage 3 subtype: stage 3a (GFR 45-59) Qualified Code(s): N18.31 - Chronic kidney disease, stage 3a Status: Acute Code(s): N18.30 - Chronic kidney disease, stage 3 unspecified Plan HPI: Patient is a 53-year-old female with history of MDD with psychotic features (r/o schizoaffective disorder, depressed type) PTSD, borderline traits, kidney cancer (one kidney). She first presented for admission for worsening depression and AH. Patient was feeling overall good enough until about 4 months ago. Without any obvious trigger, and despite continued adherence to medication regimen, she reports that her mood started to decline and AH (which is present independent of mood) became worse. Patient said she started having bad thoughts.. At which she became tearful and would not disclose them. She said her mood got worse and worse and voices told her to hurt herself; she started seeing shadow figures and having horrific nightmares where sometimes she can tell if she was awake or asleep but saw a ball of fire and things burning. AH worsened this past week and so patient self presented. She denies any history of manic type behaviors; ongoing PTSD symptoms. Patient does not remember history of med trials On M5, patient was started on Vraylar and ECT. She only received 2 ECT trials when she developed a pulmonary embolism; patient started on anticoagulation however ECT held. A few days later patient reported left-sided weakness which was evident on exam; she was transferred to medical floor, with head/neck CT/angiogram and then MRI; patient was diagnosed with complex migraine that can mimic a stroke; patient was stabilized and returned to the unit. There were some incidental findings which included thyroid nodules that medical team thought could be followed up as an outpatient. Now stabilized, patient returns to for continued treatment for depression. Patient reports she remains very depressed and continues to have AH which are very bothersome. Patient adamantly requests to restart ECT which she was hopeful would be helpful. Formulaton/clinical reasoning: Development Technical Lead discussed case with patient's outpatient psychiatric provider Dr. Kathleen who has known patient for years. She reports that Patient has long history of depression, frequently severe, intermixed with PTSD symptoms, emotional reactivity; although patient endorses continue AH, Dr. Kathleen does not think necessarily an organic psychotic illness and only symptom is AH (no history of delusional thinking, no disorganized speech or behavior). Pt has had numerous medication trials with only partial response. Discussed treatment approaches and provider agrees that ECT trial is warranted; no benefit from Latuda thus far and although was only at 20 mg, agree to start Vraylar instead which maybe a little more robust in dealing with AH. Patient amenable to changing medications. Dunn? only one kidney so hesitant. Also considerations are OCD/JAMIE regarding dx, although pt has AH (which IS independent of mood), she has no other psychotic symptoms HOSPITAL COURSE: 02/07 complaining of worsened command AH to kill self; tearful. Risperdal worked as PRN for few hours so she agreed to restart (failed in past). 1.continues on Vraylar 4.5mg daily: maybe helped with depression some, but AH remained 2.returned from Medical floor on Latuda (which was did not seem to help in past), but since so depressed and not sure if will get ECT, left it since monotherapy has not been effective (will leave for now, but likey dc) 3.Started on Risperdal 1mg TID since prn risperdal took away AH for a few hours 4. Currently on 3 antipsychotics but will likely dc some of them. -Regarding ECT, Discussed with Supervisor [place] Dr. Guthrie who reports pt does not need O2 and From a pulmonary standpoint, the patient is doing well, stable. She may proceed with anesthesia and ECT at this time as long as she can the anticoagulation without interruptions. -Discussed with Anesthesiologis Dr. Willett who agrees that pulm recs are sufficient to proceed with ECT and that pt can remain on anticoagulation dx, although pt has AH (which IS independent of mood), she has no other psychotic symptoms 02/09/24 Discussed with pt sx with interpetr hx chronic hills depression hx depression ptsd ? dissociative hills would taper latuda ect when available next few days if remains unchanged some aspects of sx are chronic with recent exacerbation pt has been able to mainsafety no sob noted 02/09: Continue current regimen and plans 02/10: Continue current regimen and plans PLAN: CV Q 15 minute checks Will restart ECT currently on Vraylar, Latuda and recently started on Risperdal. This is temporary and will continue to fine tune. Numerous failed Med trials: Haldol: got tremor abilify: wt gain risperidone Geodon Cymbalta, Effexor, Lexapro, Pristiq mirtazapine lamictal Medical comorbidities: 1. L-sided weakness: Resolved, transient: complex migraine; Neuro consulted, likely complex migraine rather than CVA/TIA. Sumatriptan contraindicated; use Fioricet prn; continue topiramate 2. transaminasemia - has been a recurrent problem in past; US with Dopplers + GI cosult pending; LFTs improving; 3. recently diagnosed PE 01/31 [R main PA + segmental branches of RLL] - was started on therapeutic enoxaparin; transitioned to apixaban 4.orthostatic hypotension, chronic; - continue midodrine 5. Incidental finding on CTA: possible thinning of semicircular canals bilaterally with question of dehiscence noted on CTA, incidental (ED contacted ENT) likely transient, follow up as outpt, no further workup at this time 6. Incidental finding on CTA: thyroid nodule, incidentally noted on CTA, 1.9 cm left; outpt f/u with thyroid US 7. IBS-C; bowel regimen, outpt GI f/u 8. asthma not in acute exac; prn albuterol 9. MIGUEL; CPAP at night Reason for continued inpatient stay Substantial Risk for: med/psych decompensation Time Spent With Patient Time: Total time managing care of this patient today ____ minutes.
[2024-02-11 12:30] VITALS: BP 133/65
[2024-02-11] MEDS: traMADoL HCL 50 MG TABLET 100 MG PO ×2 (12:32→20:45)
[2024-02-11 16:54] VITALS: BP 116/73
[2024-02-11] MEDS: Lurasidone HCl 20 MG TABLET 60 MG PO (16:54)
[2024-02-11 20:00] VITALS: BP 109/69; PULSE 77; RESP 18; TEMP 36.6; O2SAT 97
[2024-02-11] MEDS: Apixaban 5 MG TABLET PO (20:41)
[2024-02-11] MEDS: bisacodyL 5 MG TABLET.DR 10 MG PO (20:43)
[2024-02-11] MEDS: Mirtazapine 15 MG TABLET PO (20:44)
[2024-02-11] MEDS: Melatonin 3 MG TABLET 9 MG PO (20:45)
[2024-02-11] MEDS: diphenhydrAMINE HCL 25 MG CAPSULE PO (20:45)
[2024-02-11] MEDS: traZODone HCL 50 MG TABLET PO (20:45)
[2024-02-11] MEDS: LORazepam 1 MG TABLET PO (20:45)
[2024-02-12] MEDS: hydrOXYzine HCL 25 MG TABLET PO (02:15)
[2024-02-12] MEDS: traZODone HCL 50 MG TABLET PO ×2 (02:15→21:18)
[2024-02-12] MEDS: Omeprazole 20 MG CAPSULE.DR PO (07:12)
[2024-02-12] MEDS: Topiramate 100 MG TABLET PO (08:53)
[2024-02-12] MEDS: Cholecalciferol (Vitamin D3) 25 MCG TABLET PO (08:53)
[2024-02-12] MEDS: Apixaban 5 MG TABLET 10 MG PO ×2 (08:53→21:17)
[2024-02-12] MEDS: risperiDONE 1 MG TABLET PO ×3 (08:53→21:20)
[2024-02-12] MEDS: Cariprazine HCl 1.5 MG CAPSULE 4.5 MG PO (08:53)
[2024-02-12] MEDS: Docusate Sodium 100 MG CAPSULE PO (08:53)
[2024-02-12] MEDS: Gabapentin 400 MG CAPSULE 800 MG PO ×3 (08:53→21:18)
[2024-02-12] MEDS: Midodrine HCl 10 MG TABLET PO ×3 (08:54→17:57)
[2024-02-12] MEDS: Ferrous Sulfate 324 MG TABLET.DR PO (08:54)
[2024-02-12] MEDS: Cyanocobalamin (Vitamin B-12) 500 MCG TABLET PO (08:54)
--- NOTE | 2024-02-12 09:05 | P.PNPSI_ITS ---
Subjective Subjective Date of Service: 02/12/24 Reason For Visit: Depression Subjective Notes: Conditional Voluntary Interim History: Patient was seen and discussed in rounds today. Records and plans were reviewed. She was seen with an park interpreter. She continues to have somatic preoccupations. She is isolative. Using PRNs with some benefits. Continues to have auditory hallucinations. No SI. No side effects or other complaints today. No changes were made today Review of Systems Review of Systems Yes all other systems are reviewed and are negative Mental Status Exam Mental Status Exam Narrative: Alert, pleasant and interactive. Normal speech. Moderate eye contact. Affect is constricted but a little brighter. No active SI but has had passive SI. Cognitively appears grossly intact. Able to move all limbs. No abnormalities of gait Diagnostics Vital Signs (24Hr): Vital Signs - 24 hr 02/11/24 09:11 02/11/24 12:30 02/11/24 16:54 Temperature 97.6 F Pulse Rate 58 Respiratory Rate 16 Blood Pressure 127/58 L 133/65 116/73 Pulse Oximetry 99 Oxygen Delivery Method Room Air 02/11/24 20:00 Temperature 97.8 F Pulse Rate 77 Respiratory Rate 18 Blood Pressure 109/69 Pulse Oximetry 97 Oxygen Delivery Method Room Air Medications Medications Current Medications Acetaminophen/Butalbital/Caffeine (Butalb/Acetamin/Caff 50/325/40 Tablet) 2 tab PO Q6H PRN PRN Reason: Migraine Headache Al Hydroxide/Mg Hydroxide (Magnesium Hydrox/Alum Hydrox 30 Ml Oral.Susp) 30 ml PO Q6H PRN PRN Reason: Heartburn/Nausea Albuterol Sulfate (Albuterol Sulfate 90 Mcg 8 Gm Inhaler) 2 puff INHALE RQ6H PRN PRN Reason: wheezing Apixaban (Apixaban 5 Mg Tablet) 5 mg PO BID [facility] Last Admin: 02/11/24 20:41 Dose: 5 mg Apixaban (Apixaban 5 Mg Tablet) 10 mg PO BID [facility] Stop: 02/12/24 23:59 Last Admin: 02/11/24 20:42 Dose: 10 mg Bisacodyl (Bisacodyl 5 Mg Tablet.) 10 mg PO BEDTIME [facility] Last Admin: 02/11/24 20:43 Dose: 10 mg Cariprazine (Cariprazine Hcl 1.5 Mg Capsule) 4.5 mg PO DAILY [facility] Last Admin: 02/11/24 08:29 Dose: 4.5 mg Cyanocobalamin (Cyanocobalamin (Vitamin B-12) 500 Mcg Tablet) 500 mcg PO DAILY [facility] Last Admin: 02/11/24 08:30 Dose: 500 mcg Diphenhydramine HCl (Diphenhydramine Hcl 25 Mg Capsule) 25 mg PO TID PRN PRN Reason: allergies Last Admin: 02/11/24 20:45 Dose: 25 mg Docusate Sodium (Docusate Sodium 100 Mg Capsule) 100 mg PO DAILY [facility] Last Admin: 02/11/24 08:29 Dose: 100 mg Ferrous Sulfate (Ferrous Sulfate 324 Mg Tablet.Dr) 324 mg PO DAILY [facility] Last Admin: 02/11/24 08:29 Dose: 324 mg Gabapentin (Gabapentin 400 Mg Capsule) 800 mg PO TID [facility] Last Admin: 02/11/24 20:43 Dose: 800 mg Hydrocortisone (Hydrocortisone 2.5 % Rectal Cr 30 Gm Tube) 1 appl VT BID [facility] Last Admin: 02/11/24 20:43 Dose: 1 appl Hydroxyzine HCl (Hydroxyzine Hcl 25 Mg Tablet) 25 mg PO Q6H PRN PRN Reason: Anxiety Last Admin: 02/12/24 02:15 Dose: 25 mg Lorazepam (Lorazepam 1 Mg Tablet) 1 mg PO BID PRN PRN Reason: Anxiety Last Admin: 02/11/24 20:45 Dose: 1 mg Lurasidone HCl (Lurasidone Hcl 20 Mg Tablet) 60 mg PO DAILY@1800 [facility] Last Admin: 02/11/24 16:54 Dose: 60 mg Magnesium Hydroxide (Milk Of Magnesia 30 Ml Oral.Susp) 30 ml PO DAILY PRN PRN Reason: Constipation Meclizine HCl (Meclizine Hcl 25 Mg Tablet) 25 mg PO TID PRN PRN Reason: dizziness Melatonin (Melatonin 3 Mg Tablet) 9 mg PO BEDTIME PRN PRN Reason: Insomnia Last Admin: 02/11/24 20:45 Dose: 9 mg Midodrine (Midodrine Hcl 10 Mg Tablet) 10 mg PO TID@0900,1300,1800 [facility] Last Admin: 02/11/24 16:54 Dose: 10 mg Mirtazapine (Mirtazapine 15 Mg Tablet) 15 mg PO BEDTIME [facility] Last Admin: 02/11/24 20:44 Dose: 15 mg Nicotine Polacrilex (Nicotine Polacrilex 2 Mg Gum) 4 mg BUCCAL Q2H PRN PRN Reason: Nicotine Cravings Non-Formulary Medication (Potassium Citrate) 5 meq PO DAILY [facility] Pt Own (Rosuvastatin (5 Mg Tablet)) 5 mg PO DAILY [facility] Last Admin: 02/11/24 08:35 Dose: 5 mg Omeprazole (Omeprazole 20 Mg Capsule.Dr) 20 mg PO DAILY@0630 [facility] Last Admin: 02/12/24 07:12 Dose: 20 mg Risperidone (Risperidone 1 Mg Tablet) 1 mg PO BID PRN PRN Reason: AH Last Admin: 02/08/24 12:30 Dose: 1 mg Risperidone (Risperidone 1 Mg Tablet) 1 mg PO TID [facility] Last Admin: 02/11/24 20:44 Dose: 1 mg Topiramate (Topiramate 100 Mg Tablet) 100 mg PO DAILY [facility] Last Admin: 02/11/24 08:29 Dose: 100 mg Tramadol HCl (Tramadol Hcl 50 Mg Tablet) 100 mg PO Q8H PRN PRN Reason: severe pain Last Admin: 02/11/24 20:45 Dose: 100 mg Trazodone HCl (Trazodone Hcl 50 Mg Tablet) 50 mg PO BEDTIME MRX1 PRN PRN Reason: Insomnia Last Admin: 02/12/24 02:15 Dose: 50 mg Triamcinolone Acetonide (Triamcinolone Acet 0.1 % Cream 15 Gm Tube) 1 appl TOPICAL DAILY PRN PRN Reason: rash Vitamin D (Cholecalciferol (Vitamin D3) 25 Mcg Tablet) 25 mcg PO DAILY [facility] Last Admin: 02/11/24 08:29 Dose: 25 mcg Allergies Allergies Allergy/AdvReac Type Severity Reaction Status Date / Time acetaminophen AdvReac Unknown Unknown Verified 01/22/24 09:01 atorvastatin AdvReac Severe elevated Uncoded 01/22/24 09:01 liver enzymes Assessment & Plan Assessment & Plan (1) MDD (major depressive disorder), recurrent, severe, with psychosis: Status: Acute Code(s): F33.3 - Major depressive disorder, recurrent, severe with psychotic symptoms (2) Post traumatic stress disorder (PTSD): Status: Acute Code(s): F43.10 - Post-traumatic stress disorder, unspecified (3) Pulmonary embolism: Qualifiers: Pulmonary embolism type: multiple subsegmental (without acute cor pulmonale) Qualified Code(s): I26.94 - Multiple subsegmental thrombotic pulmonary emboli without acute cor pulmonale Status: Acute Code(s): I26.99 - Other pulmonary embolism without acute cor pulmonale (4) MIGUEL (obstructive sleep apnea): Status: Acute Code(s): G47.33 - Obstructive sleep apnea (adult) (pediatric) (5) Chronic kidney disease, stage III (moderate): Qualifiers: Chronic kidney disease stage 3 subtype: stage 3a (GFR 45-59) Qualified Code(s): N18.31 - Chronic kidney disease, stage 3a Status: Acute Code(s): N18.30 - Chronic kidney disease, stage 3 unspecified Plan HPI: Patient is a 53-year-old female with history of MDD with psychotic features (r/o schizoaffective disorder, depressed type) PTSD, borderline traits, kidney cancer (one kidney). She first presented for admission for worsening depression and AH. Patient was feeling overall good enough until about 4 months ago. Without any obvious trigger, and despite continued adherence to medication regimen, she reports that her mood started to decline and AH (which is present independent of mood) became worse. Patient said she started having bad thoughts.. At which she became tearful and would not disclose them. She said her mood got worse and worse and voices told her to hurt herself; she started seeing shadow figures and having horrific nightmares where sometimes she can tell if she was awake or asleep but saw a ball of fire and things burning. AH worsened this past week and so patient self presented. She denies any history of manic type behaviors; ongoing PTSD symptoms. Patient does not remember history of med trials On M5, patient was started on Vraylar and ECT. She only received 2 ECT trials when she developed a pulmonary embolism; patient started on anticoagulation ho wever ECT held. A few days later patient reported left-sided weakness which was evident on exam; she was transferred to medical floor, with head/neck CT/angiogram and then MRI; patient was diagnosed with complex migraine that can mimic a stroke; patient was stabilized and returned to the unit. There were some incidental findings which included thyroid nodules that medical team thought could be followed up as an outpatient. Now stabilized, patient returns to for continued treatment for depression. Patient reports she remains very depressed and continues to have AH which are very bothersome. Patient adamantly requests to restart ECT which she was hopeful would be helpful. Formulaton/clinical reasoning: Cork Molder discussed case with patient's outpatient psychiatric provider Dr. Kathleen who has known patient for years. She reports that Patient has long history of depression, frequently severe, intermixed with PTSD symptoms, emotional reactivity; although patient endorses continue AH, Dr. Kathleen does not think necessarily an organic psychotic illness and only symptom is AH (no history of delusional thinking, no disorganized speech or behavior). Pt has had numerous medication trials with only partial response. Discussed treatment approaches and provider agrees that ECT trial is warranted; no benefit from Latuda thus far and although was only at 20 mg, agree to start Vraylar instead which maybe a little more robust in dealing with AH. Patient amenable to changing medications. [place]? only one kidney so hesitant. Also considerations are OCD/JAMIE regarding dx, although pt has AH (which IS independent of mood), she has no other psychotic symptoms HOSPITAL COURSE: 02/07 complaining of worsened command AH to kill self; tearful. Risperdal worked as PRN for few hours so she agreed to restart (failed in past). 1.continues on Vraylar 4.5mg daily: maybe helped with depression some, but AH remained 2.returned from Medical floor on Latuda (which was did not seem to help in past), but since so depressed and not sure if will get ECT, left it since monotherapy has not been effective (will leave for now, but likey dc) 3.Started on Risperdal 1mg TID since prn risperdal took away AH for a few hours 4. Currently on 3 antipsychotics but will likely dc some of them. -Regarding ECT, Discussed with Assistant Professor Of Sociology Dr. Guthrie who reports pt does not need O2 and From a pulmonary standpoint, the patient is doing well, stable. She may proceed with anesthesia and ECT at this time as long as she can the anticoagulation without interruptions. -Discussed with Anesthesiologis Dr. Willett who agrees that pulm recs are sufficient to proceed with ECT and that pt can remain on anticoagulation dx, although pt has AH (which IS independent of mood), she has no other psychotic symptoms 02/09/24 Discussed with pt sx with interpetr hx chronic hills depression hx depression ptsd ? dissociative hills would taper latuda ect when available next few days if remains unchanged some aspects of sx are chronic with recent exacerbation pt has been able to mainsafety no sob noted 02/09: Continue current regimen and plans 02/10: Continue current regimen and plans 02/11: Continue current plans and regimen PLAN: CV Q 15 minute checks Will restart ECT currently on Vraylar, Latuda and recently started on Risperdal. This is temporary and will continue to fine tune. Numerous failed Med trials: Haldol: got tremor abilify: wt gain risperidone Geodon Cymbalta, Effexor, Lexapro, Pristiq mirtazapine lamictal Medical comorbidities: 1. L-sided weakness: Resolved, transient: complex migraine; Neuro consulted, likely complex migraine rather than CVA/TIA. Sumatriptan contraindicated; use Fioricet prn; continue topiramate 2. transaminasemia - has been a recurrent problem in past; US with Dopplers + GI cosult pending; LFTs improving; 3. recently diagnosed PE 01/31 [R main PA + segmental branches of RLL] - was started on therapeutic enoxaparin; transitioned to apixaban 4.orthostatic hypotension, chronic; - continue midodrine 5. Incidental finding on CTA: possible thinning of semicircular canals bilaterally with question of dehiscence noted on CTA, incidental (ED contacted ENT) likely transient, follow up as outpt, no further workup at this time 6. Incidental finding on CTA: thyroid nodule, incidentally noted on CTA, 1.9 cm left; outpt f/u with thyroid US 7. IBS-C; bowel regimen, outpt GI f/u 8. asthma not in acute exac; prn albuterol 9. MIGUEL; CPAP at night Reason for continued inpatient stay Substantial Risk for: harm to self and rapid decompensation Time Spent With Patient Time: Total time managing care of this patient today ____ minutes.
[2024-02-12] MEDS: ROSUVASTATIN 5 MG 5 EACH PO (09:16)
[2024-02-12 10:20] VITALS: BP 112/57; PULSE 60; RESP 16; TEMP 36.5; O2SAT 99
[2024-02-12 13:03] VITALS: BP 116/60
[2024-02-12] MEDS: traMADoL HCL 50 MG TABLET 100 MG PO (15:04)
[2024-02-12 17:57] VITALS: BP 114/56
[2024-02-12] MEDS: Lurasidone HCl 20 MG TABLET 60 MG PO (17:58)
[2024-02-12 20:00] VITALS: BP 117/74; PULSE 71; TEMP 36.4; O2SAT 98
[2024-02-12] MEDS: bisacodyL 5 MG TABLET.DR 10 MG PO (21:18)
[2024-02-12] MEDS: Mirtazapine 15 MG TABLET PO (21:19)
[2024-02-12] MEDS: Melatonin 3 MG TABLET 9 MG PO (21:26)
[2024-02-12] MEDS: LORazepam 1 MG TABLET PO (21:26)
[2024-02-12] MEDS: diphenhydrAMINE HCL 25 MG CAPSULE PO (21:27)
[2024-02-13 00:32] VITALS: RESP 16
[2024-02-13] MEDS: hydrOXYzine HCL 25 MG TABLET PO (04:26)
[2024-02-13] MEDS: LORazepam 1 MG TABLET PO ×2 (04:27→21:24)
[2024-02-13] MEDS: Omeprazole 20 MG CAPSULE.DR PO (07:34)
[2024-02-13 08:00] VITALS: BP 102/59; PULSE 64; RESP 18; TEMP 36.9; O2SAT 97
[2024-02-13] MEDS: Cariprazine HCl 1.5 MG CAPSULE 4.5 MG PO (08:55)
[2024-02-13] MEDS: Gabapentin 400 MG CAPSULE 800 MG PO ×2 (08:55→14:26)
[2024-02-13] MEDS: Apixaban 5 MG TABLET PO ×2 (08:57→21:24)
[2024-02-13] MEDS: Topiramate 100 MG TABLET PO (08:57)
[2024-02-13] MEDS: Midodrine HCl 10 MG TABLET PO ×2 (08:57→13:22)
[2024-02-13] MEDS: Cyanocobalamin (Vitamin B-12) 500 MCG TABLET PO (08:58)
[2024-02-13] MEDS: Cholecalciferol (Vitamin D3) 25 MCG TABLET PO (08:58)
[2024-02-13] MEDS: Docusate Sodium 100 MG CAPSULE PO (08:58)
[2024-02-13] MEDS: risperiDONE 1 MG TABLET PO ×4 (08:58→21:24)
[2024-02-13] MEDS: Ferrous Sulfate 324 MG TABLET.DR PO (08:59)
[2024-02-13] MEDS: ROSUVASTATIN 5 MG 5 EACH PO (09:02)
[2024-02-13] MEDS: Hydrocortisone 2.5 % Rectal Cr 30 GM TUBE 1 APPL PR (09:02)
[2024-02-13 13:22] VITALS: BP 99/60
[2024-02-13] MEDS: Lurasidone HCl 40 MG TABLET PO (19:41)
[2024-02-13 20:00] VITALS: BP 113/78; PULSE 74; RESP 18; TEMP 36.6; O2SAT 98
[2024-02-13] MEDS: bisacodyL 5 MG TABLET.DR 10 MG PO (21:24)
[2024-02-13] MEDS: diphenhydrAMINE HCL 25 MG CAPSULE PO (21:24)
[2024-02-13] MEDS: Melatonin 3 MG TABLET 9 MG PO (21:24)
[2024-02-13] MEDS: Mirtazapine 15 MG TABLET PO (21:24)
[2024-02-13] MEDS: traZODone HCL 50 MG TABLET PO (21:24)
--- NOTE | 2024-02-13 23:13 | HO.PSYCHPN ---
Subjective Subjective Date of Service: 02/13/24 Reason For Visit: Depression Interim History: met with patient; discussed with team; reviewed chart pt remains depressed but says Risperdal helps when she takes it; says this morning, AH command, upsetting but dissipated with scheduled and prn risperdal. Discussed ECT and pt wants to continue Mental Status Exam Mental Status Exam Narrative: Pt is alert and oriented; behavior is cooperative, calm; dressed in casual pajamas with adequate grooming; mood is described as Depressed.. affect downcast; eye contact appropriate; Speech remains soft volume, slowed rate; normal prosody; psychomotor retardation present; thought process is goal oriented; Thought content is on symptoms, AH, tx; otherwise pertinent to relevant topics and without any delusional content, paranoid ideations or grandiosity; no SI; no HI; reports intermittent command AH. Patients insight and judgment impaired Diagnostics Vital Signs (24Hr): Vital Signs - 24 hr 02/13/24 00:32 02/13/24 08:00 02/13/24 13:22 Temperature 98.4 F Pulse Rate 64 Respiratory Rate 16 18 Blood Pressure 102/59 L 99/60 Pulse Oximetry 97 Oxygen Delivery Method Room Air 02/13/24 20:00 Temperature 97.9 F Pulse Rate 74 Respiratory Rate 18 Blood Pressure 113/78 Pulse Oximetry 98 Oxygen Delivery Method Room Air Medications Medications Current Medications Acetaminophen/Butalbital/Caffeine (Butalb/Acetamin/Caff 50/325/40 Tablet) 2 tab PO Q6H PRN PRN Reason: Migraine Headache Al Hydroxide/Mg Hydroxide (Magnesium Hydrox/Alum Hydrox 30 Ml Oral.Susp) 30 ml PO Q6H PRN PRN Reason: Heartburn/Nausea Albuterol Sulfate (Albuterol Sulfate 90 Mcg 8 Gm Inhaler) 2 puff INHALE RQ6H PRN PRN Reason: wheezing Apixaban (Apixaban 5 Mg Tablet) 5 mg PO BID [facility] Last Admin: 02/13/24 21:24 Dose: 5 mg Bisacodyl (Bisacodyl 5 Mg Tablet.Dr) 10 mg PO BEDTIME [facility] Last Admin: 02/13/24 21:24 Dose: 10 mg Cariprazine (Cariprazine Hcl 1.5 Mg Capsule) 4.5 mg PO DAILY [facility] Last Admin: 02/13/24 08:55 Dose: 4.5 mg Cyanocobalamin (Cyanocobalamin (Vitamin B-12) 500 Mcg Tablet) 500 mcg PO DAILY [facility] Last Admin: 02/13/24 08:58 Dose: 500 mcg Diphenhydramine HCl (Diphenhydramine Hcl 25 Mg Capsule) 25 mg PO TID PRN PRN Reason: allergies Last Admin: 02/13/24 21:24 Dose: 25 mg Docusate Sodium (Docusate Sodium 100 Mg Capsule) 100 mg PO DAILY [facility] Last Admin: 02/13/24 08:58 Dose: 100 mg Ferrous Sulfate (Ferrous Sulfate 324 Mg Tablet.Dr) 324 mg PO DAILY [facility] Last Admin: 02/13/24 08:59 Dose: 324 mg Gabapentin (Gabapentin 400 Mg Capsule) 800 mg PO TID [facility] Last Admin: 02/13/24 21:30 Dose: Not Given Hydrocortisone (Hydrocortisone 2.5 % Rectal Cr 30 Gm Tube) 1 appl MI BID [facility] Last Admin: 02/13/24 21:30 Dose: Not Given Hydroxyzine HCl (Hydroxyzine Hcl 25 Mg Tablet) 25 mg PO Q6H PRN PRN Reason: Anxiety Last Admin: 02/13/24 04:26 Dose: 25 mg Lorazepam (Lorazepam 1 Mg Tablet) 1 mg PO BID PRN PRN Reason: Anxiety Last Admin: 02/13/24 21:24 Dose: 1 mg Lurasidone HCl (Lurasidone Hcl 40 Mg Tablet) 40 mg PO DAILY@1800 [facility] Last Admin: 02/13/24 19:41 Dose: 40 mg Magnesium Hydroxide (Milk Of Magnesia 30 Ml Oral.Susp) 30 ml PO DAILY PRN PRN Reason: Constipation Meclizine HCl (Meclizine Hcl 25 Mg Tablet) 25 mg PO TID PRN PRN Reason: dizziness Melatonin (Melatonin 3 Mg Tablet) 9 mg PO BEDTIME PRN PRN Reason: Insomnia Last Admin: 02/13/24 21:24 Dose: 9 mg Midodrine (Midodrine Hcl 10 Mg Tablet) 10 mg PO TID@0900,1300,1800 [facility] Last Admin: 02/13/24 19:40 Dose: Not Given Mirtazapine (Mirtazapine 15 Mg Tablet) 15 mg PO BEDTIME [facility] Last Admin: 02/13/24 21:24 Dose: 15 mg Nicotine Polacrilex (Nicotine Polacrilex 2 Mg Gum) 4 mg BUCCAL Q2H PRN PRN Reason: Nicotine Cravings Pt Own (Rosuvastatin (5 Mg Tablet)) 5 mg PO DAILY [facility] Last Admin: 02/13/24 09:02 Dose: 5 mg Omeprazole (Omeprazole 20 Mg Capsule.Dr) 20 mg PO DAILY@0630 [facility] Last Admin: 02/13/24 07:34 Dose: 20 mg Risperidone (Risperidone 1 Mg Tablet) 1 mg PO BID PRN PRN Reason: AH Last Admin: 02/13/24 10:05 Dose: 1 mg Risperidone (Risperidone 1 Mg Tablet) 1 mg PO TID [facility] Last Admin: 02/13/24 21:24 Dose: 1 mg Topiramate (Topiramate 100 Mg Tablet) 100 mg PO DAILY [facility] Last Admin: 02/13/24 08:57 Dose: 100 mg Tramadol HCl (Tramadol Hcl 50 Mg Tablet) 100 mg PO Q8H PRN PRN Reason: severe pain Last Admin: 02/12/24 15:04 Dose: 100 mg Trazodone HCl (Trazodone Hcl 50 Mg Tablet) 50 mg PO BEDTIME MRX1 PRN PRN Reason: Insomnia Last Admin: 02/13/24 21:24 Dose: 50 mg Triamcinolone Acetonide (Triamcinolone Acet 0.1 % Cream 15 Gm Tube) 1 appl TOPICAL DAILY PRN PRN Reason: rash Vitamin D (Cholecalciferol (Vitamin D3) 25 Mcg Tablet) 25 mcg PO DAILY [facility] Last Admin: 02/13/24 08:58 Dose: 25 mcg Allergies Allergies Allergy/AdvReac Type Severity Reaction Status Date / Time acetaminophen AdvReac Unknown Unknown Verified 01/22/24 09:01 atorvastatin AdvReac Severe elevated Uncoded 01/22/24 09:01 liver enzymes Assessment & Plan Assessment & Plan (1) MDD (major depressive disorder), recurrent, severe, with psychosis: Status: Acute Code(s): F33.3 - Major depressive disorder, recurrent, severe with psychotic symptoms (2) Post traumatic stress disorder (PTSD): Status: Acute Code(s): F43.10 - Post-traumatic stress disorder, unspecified (3) Pulmonary embolism: Qualifiers: Pulmonary embolism type: multiple subsegmental (without acute cor pulmonale) Qualified Code(s): I26.94 - Multiple subsegmental thrombotic pulmonary emboli without acute cor pulmonale Status: Acute Code(s): I26.99 - Other pulmonary embolism without acute cor pulmonale (4) MIGUEL (obstructive sleep apnea): Status: Acute Code(s): G47.33 - Obstructive sleep apnea (adult) (pediatric) (5) Chronic kidney disease, stage III (moderate): Qualifiers: Chronic kidney disease stage 3 subtype: stage 3a (GFR 45-59) Qualified Code(s): N18.31 - Chronic kidney disease, stage 3a Status: Acute Code(s): N18.30 - Chronic kidney disease, stage 3 unspecified Plan HPI: Patient is a 53-year-old female with history of MDD with psychotic features (r/o schizoaffective disorder, depressed type) PTSD, borderline traits, kidney cancer (one kidney). She first presented for admission for worsening depression and AH. Patient was feeling overall good enough until about 4 months ago. Without any obvious trigger, and despite continued adherence to medication regimen, she reports that her mood started to decline and AH (which is present independent of mood) became worse. Patient said she started having bad thoughts.. At which she became tearful and would not disclose them. She said her mood got worse and worse and voices told her to hurt herself; she started seeing shadow figures and having horrific nightmares where sometimes she can tell if she was awake or asleep but saw a ball of fire and things burning. AH worsened this past week and so patient self presented. She denies any history of manic type behaviors; ongoing PTSD symptoms. Patient does not remember history of med trials On M5, patient was started on Vraylar and ECT. She only received 2 ECT trials when she developed a pulmonary embolism; patient started on anticoagulation however ECT held. A few days later patient reported left-sided weakness which was evident on exam; she was transferred to medical floor, with head/neck CT/angiogram and then MRI; patient was diagnosed with complex migraine that can mimic a stroke; patient was stabilized and returned to the unit. There were some incidental findings which included thyroid nodules that medical team thought could be followed up as an outpatient. Now stabilized, patient returns to for continued treatment for depression. Patient reports she remains very depressed and continues to have AH which are very bothersome. Patient adamantly requests to restart ECT which she was hopeful would be helpful. Formulaton/clinical reasoning: [employer]ism[employer] discussed case with patient's outpatient psychiatric provider Dr. Kathleen who has known patient for years. She reports that Patient has long history of depression, frequently severe, intermixed with PTSD symptoms, emotional reactivity; although patient endorses continue AH, Dr. Kathleen does not think necessarily an organic psychotic illness and only symptom is AH (no history of delusional thinking, no disorganized speech or behavior). Pt has had numerous medication trials with only partial response. Discussed treatment approaches and provider agrees that ECT trial is warranted; no benefit from Latuda thus far and although was only at 20 mg, agree to start Vraylar instead which maybe a little more robust in dealing with AH. Patient amenable to changing medications. [place]? only one kidney so hesitant. Also considerations are OCD/JAMIE regarding dx, although pt has AH (which IS independent of mood), she has no other psychotic symptoms HOSPITAL COURSE: 02/07 complaining of worsened command AH to kill self; tearful. Risperdal worked as PRN for few hours so she agreed to restart (failed in past). 1.continues on Vraylar 4.5mg daily: maybe helped with depression some, but AH remained 2.returned from Medical floor on Latuda (which was did not seem to help in past), but since so depressed and not sure if will get ECT, left it since monotherapy has not been effective (will leave for now, but likey dc) 3.Started on Risperdal 1mg TID since prn risperdal took away AH for a few hours 4. Currently on 3 antipsychotics but will likely dc some of them. -Regarding ECT, Discussed with Industrial Relations Officer Dr. Guthrie who reports pt does not need O2 and From a pulmonary standpoint, the patient is doing well, stable. She may proceed with anesthesia and ECT at this time as long as she can the anticoagulation without interruptions. -Discussed with Anesthesiologis Dr. Willett who agrees that pulm recs are sufficient to proceed with ECT and that pt can remain on anticoagulation dx, although pt has AH (which IS independent of mood), she has no other psychotic symptoms 02/09/24 Discussed with pt sx with interpetr hx chronic hills depression hx depression ptsd ? dissociative hills would taper latuda ect when available next few days if remains unchanged some aspects of sx are chronic with recent exacerbation pt has been able to mainsafety no sob noted 02/12 pt remains depressed but says Risperdal helps when she takes it; says this morning, AH command, upsetting but dissipated with scheduled and prn risperdal. Discussed ECT and pt wants to continue PLAN: CV Q 15 minute checks ECT #3 Taper off Latuda Continue Risperdal 1mg TID for AH continue vryaler 4.5mg for depression currently on Vraylar, Latuda and recently started on Risperdal. This is temporary and will continue to fine tune. Numerous failed Med trials: Haldol: got tremor abilify: wt gain risperidone Geodon Cymbalta, Effexor, Lexapro, Pristiq mirtazapine lamictal Medical comorbidities: 1. L-sided weakness: Resolved, transient: complex migraine; Neuro consulted, likely complex migraine rather than CVA/TIA. Sumatriptan contraindicated; use Fioricet prn; continue topiramate 2. transaminasemia - has been a recurrent problem in past; US with Dopplers + GI cosult pending; LFTs improving; 3. recently diagnosed PE 01/31 [R main PA + segmental branches of RLL] - was started on therapeutic enoxaparin; transitioned to apixaban 4.orthostatic hypotension, chronic; - continue midodrine 5. Incidental finding on CTA: possible thinning of semicircular canals bilaterally with question of dehiscence noted on CTA, incidental (ED contacted ENT) likely transient, follow up as outpt, no further workup at this time 6. Incidental finding on CTA: thyroid nodule, incidentally noted on CTA, 1.9 cm left; outpt f/u with thyroid US 7. IBS-C; bowel regimen, outpt GI f/u 8. asthma not in acute exac; prn albuterol 9. MIGUEL; CPAP at night Patient educated on: diagnosis, medication risk/benefits and ECT Informed Consent: understands Reason for continued inpatient stay Substantial Risk for: rapid decompensation Time Spent With Patient Time: Total time managing care of this patient today ____ minutes.
[2024-02-14] VITALS (14 sets, daily range): BP systolic 104–127; BP diastolic 56–88; PULSE 60–80; RESP 14–18; TEMP 36.2–36.9; O2SAT 97–100
[2024-02-14] MEDS: traZODone HCL 50 MG TABLET PO ×2 (01:26→23:01)
[2024-02-14] MEDS: hydrOXYzine HCL 25 MG TABLET PO ×2 (01:26→23:00)
--- NOTE | 2024-02-14 07:11 | P.CONAN_ITS ---
[facility] Active Problems Active Problems: All Active Problems Pre-op chest exam (Acute) Pulmonary embolism (Acute) Abnormal LFTs (Acute) Left-sided weakness (Acute) Shortness of breath (Acute) Cough (Acute) Chest pain (Acute) PTSD (post-traumatic stress disorder) (Acute) Depression with suicidal ideation (Acute) Dizziness (Acute) Ventral hernia (Acute) Flank hernia (Acute) Sacroiliac joint dysfunction of both sides (Acute) Abdominal pannus (Acute) Depression (Acute) Hypotension (Acute) Lower urinary tract symptoms (Acute) Complicated urinary tract infection (Acute) Osteoporosis screening (Acute) Chronic kidney disease, stage III (moderate) (Acute) Paresthesia (Acute) Recurrent urinary tract infection (Acute) Solitary kidney, acquired (Acute) Orthostatic dizziness (Acute) Symptomatic abdominal panniculus (Acute) Panniculitis (Acute) Bilateral leg weakness (Acute) Obesity (Acute) Overweight (BMI 25.0-29.9) (Acute) Urinary tract infection (Acute) Dysuria (Acute) Skin laxity (Acute) Painful sexual intercourse (Acute) Dyspareunia, female (Acute) Nephrolithiasis (Acute) Constipation (Acute) Colon cancer screening (Acute) Overweight (Acute) Sacroiliac joint pain (Acute) Left lumbar radiculopathy (Acute) Memory impairment (Acute) Renal cyst (Acute) Transaminitis (Acute) Elevated LFTs (Acute) Abdominal wall mass (Acute) Annual physical exam (Acute) Bilateral elbow joint pain (Acute) Hip pain, bilateral (Acute) Knee pain, bilateral (Acute) Arthralgia (Acute) UTI (urinary tract infection) (Acute) Post traumatic stress disorder (PTSD) (Acute) MDD (major depressive disorder), recurrent, severe, with psychosis (Acute) Encounter to discuss test results (Acute) Urinary frequency (Acute) Urinary incontinence (Acute) Excess skin (Acute) Renal calculus, right (Acute) MIGUEL (obstructive sleep apnea) (Acute) Obesity (BMI 30-39.9) (Acute) Renal cyst (Acute) Diverticulosis (Acute) Tubular adenoma (Acute) Spondylosis of lumbar spine (Acute) Sacroiliitis (Acute) Dizziness of unknown etiology (Acute) Chronic constipation (Acute) History of gastric bypass (Acute ~2008) Dyspareunia (Acute) Pyelonephritis (Acute) Ingrown toenail (Acute) Iron deficiency anemia (Acute) Major depression, recurrent (Acute) Anxiety (Acute) Insomnia (Acute) Tremor (Acute) Orthostatic hypotension (Acute) Incisional hernia without obstruction or gangrene (Acute) Avascular necrosis of femoral head (Acute) Bilateral carpal tunnel syndrome (Acute) Peroneal neuropathy (Acute) Lumbar degenerative disc disease (Acute) Vitamin D deficiency (Acute) GERD (gastroesophageal reflux disease) (Acute) Migraine (Acute) Hyperlipidemia (Acute) Past Medical History Medical History (Updated 02/12/24 @ 00:01 by Background Daemon) Chronic kidney disease, stage III (moderate) Obesity (BMI 30-39.9) Renal cyst Diverticulosis Tubular adenoma Asthma Spondylosis of lumbar spine Sacroiliitis Dizziness of unknown etiology Chronic constipation Hx of schizophrenia Panic attacks PTSD (post-traumatic stress disorder) Dyspareunia Pyelonephritis Ingrown toenail Iron deficiency anemia Major depression, recurrent Anxiety Insomnia Tremor Orthostatic hypotension Incisional hernia without obstruction or gangrene Avascular necrosis of femoral head Bilateral carpal tunnel syndrome Peroneal neuropathy Lumbar degenerative disc disease Vitamin D deficiency GERD (gastroesophageal reflux disease) Migraine Hyperlipidemia Family History Family History Father Liver cancer Mother Breast cancer Sister Lung cancer Other Mental health problem Family history of problems with anesthesia: No Surgical History Surgical History (Updated 02/12/24 @ 00:01 by Background Daemon) History of left nephrectomy (~1999) History of colonoscopy History of surgery Hx of cystoscopy History of bilateral breast reduction surgery History of hysterectomy History of cholecystectomy History of endoscopy (~06/2016) History of bladder repair surgery (~03/2015) S/P cystoscopy (~07/30/12) S/P panniculectomy History of hernia repair (~03/29/10) History of bladder surgery (~10/2009) History of gastric bypass (~2008) History of incisional hernia repair (~1999) Hx of umbilical hernia repair (~1999) H/O left nephrectomy S/P laparoscopic sleeve gastrectomy History of Problems with Anesthesia: No Social History Social History Household Members: Spouse and Family Housing: House Do you presently have visiting nurse or other home services: No Alcohol intake: never Comment: 1:1 Patient Tobacco Use Status: Never used Tobacco e-Cigarette/Vaping Use: Never Used Second Hand Smoke Exposure: No Use of substances other than those prescribed or required for medical reasons: No Currently Displaying Signs/Symptoms of Drug Intoxication Withdrawal: No Have you been hit, kicked, punched, or otherwise hurt by someone within the past year? If so, by whom?: No Do you feel safe in your current relationship?: Yes Is there a partner from a previous relationship who is making you feel unsafe now?: No Are you made to feel afraid or neglected: No Spiritual Healthcare Practices: n/a Adventism Healthcare Practices: n/a Cultural Healthcare Practices: n/a Advance Directives: Yes Advance Directives on File: Yes Advance Directives Date on File: 07/12/21 Do you have thoughts of harming others: None Do you have a plan to hurt others: No Plan Recently lost weight without trying: No How much weight loss: Not applicable Eating poorly because of decreased appetite: No Nutrition screen score: 0 Nutrition Risks: No Nutritional Risk Patient : No : No Poor oral hygiene: No service: No Current occupational status: disabled Sexual orientation: Straight/Heterosexual Cognitive needs: No Hearing needs: No Vision needs: Yes Meds Allergies Allergy/AdvReac Type Severity Reaction Status Date / Time acetaminophen AdvReac Unknown Unknown Verified 01/22/24 09:01 atorvastatin AdvReac Severe elevated Uncoded 01/22/24 09:01 liver enzymes Active Medications: Current Medications Acetaminophen/Butalbital/Caffeine (Butalb/Acetamin/Caff 50/325/40 Tablet) 2 tab PO Q6H PRN PRN Reason: Migraine Headache Al Hydroxide/Mg Hydroxide (Magnesium Hydrox/Alum Hydrox 30 Ml Oral.Susp) 30 ml PO Q6H PRN PRN Reason: Heartburn/Nausea Albuterol Sulfate (Albuterol Sulfate 90 Mcg 8 Gm Inhaler) 2 puff INHALE RQ6H PRN PRN Reason: wheezing Apixaban (Apixaban 5 Mg Tablet) 5 mg PO BID [facility] Last Admin: 02/13/24 21:24 Dose: 5 mg Bisacodyl (Bisacodyl 5 Mg Tablet.Dr) 10 mg PO BEDTIME [facility] Last Admin: 02/13/24 21:24 Dose: 10 mg Cariprazine (Cariprazine Hcl 1.5 Mg Capsule) 4.5 mg PO DAILY [facility] Last Admin: 02/13/24 08:55 Dose: 4.5 mg Cyanocobalamin (Cyanocobalamin (Vitamin B-12) 500 Mcg Tablet) 500 mcg PO DAILY [facility] Last Admin: 02/13/24 08:58 Dose: 500 mcg Diphenhydramine HCl (Diphenhydramine Hcl 25 Mg Capsule) 25 mg PO TID PRN PRN Reason: allergies Last Admin: 02/13/24 21:24 Dose: 25 mg Docusate Sodium (Docusate Sodium 100 Mg Capsule) 100 mg PO DAILY [facility] Last Admin: 02/13/24 08:58 Dose: 100 mg Ferrous Sulfate (Ferrous Sulfate 324 Mg Tablet.Dr) 324 mg PO DAILY [facility] Last Admin: 02/13/24 08:59 Dose: 324 mg Gabapentin (Gabapentin 400 Mg Capsule) 800 mg PO TID [facility] Last Admin: 02/13/24 21:30 Dose: Not Given Hydrocortisone (Hydrocortisone 2.5 % Rectal Cr 30 Gm Tube) 1 appl [place] BID [facility] Last Admin: 02/13/24 21:30 Dose: Not Given Hydroxyzine HCl (Hydroxyzine Hcl 25 Mg Tablet) 25 mg PO Q6H PRN PRN Reason: Anxiety Last Admin: 02/14/24 01:26 Dose: 25 mg Lorazepam (Lorazepam 1 Mg Tablet) 1 mg PO BID PRN PRN Reason: Anxiety Last Admin: 02/13/24 21:24 Dose: 1 mg Lurasidone HCl (Lurasidone Hcl 40 Mg Tablet) 40 mg PO DAILY@1800 [facility] Last Admin: 02/13/24 19:41 Dose: 40 mg Magnesium Hydroxide (Milk Of Magnesia 30 Ml Oral.Susp) 30 ml PO DAILY PRN PRN Reason: Constipation Meclizine HCl (Meclizine Hcl 25 Mg Tablet) 25 mg PO TID PRN PRN Reason: dizziness Melatonin (Melatonin 3 Mg Tablet) 9 mg PO BEDTIME PRN PRN Reason: Insomnia Last Admin: 02/13/24 21:24 Dose: 9 mg Midodrine (Midodrine Hcl 10 Mg Tablet) 10 mg PO TID@0900,1300,1800 [facility] Last Admin: 02/13/24 19:40 Dose: Not Given Mirtazapine (Mirtazapine 15 Mg Tablet) 15 mg PO BEDTIME [facility] Last Admin: 02/13/24 21:24 Dose: 15 mg Nicotine Polacrilex (Nicotine Polacrilex 2 Mg Gum) 4 mg BUCCAL Q2H PRN PRN Reason: Nicotine Cravings Pt Own (Rosuvastatin (5 Mg Tablet)) 5 mg PO DAILY [facility] Last Admin: 02/13/24 09:02 Dose: 5 mg Omeprazole (Omeprazole 20 Mg Capsule.Dr) 20 mg PO DAILY@0630 [facility] Last Admin: 02/13/24 07:34 Dose: 20 mg Risperidone (Risperidone 1 Mg Tablet) 1 mg PO BID PRN PRN Reason: AH Last Admin: 02/13/24 10:05 Dose: 1 mg Risperidone (Risperidone 1 Mg Tablet) 1 mg PO TID [facility] Last Admin: 02/13/24 21:24 Dose: 1 mg Topiramate (Topiramate 100 Mg Tablet) 100 mg PO DAILY [facility] Last Admin: 02/13/24 08:57 Dose: 100 mg Tramadol HCl (Tramadol Hcl 50 Mg Tablet) 100 mg PO Q8H PRN PRN Reason: severe pain Last Admin: 02/12/24 15:04 Dose: 100 mg Trazodone HCl (Trazodone Hcl 50 Mg Tablet) 50 mg PO BEDTIME MRX1 PRN PRN Reason: Insomnia Last Admin: 02/14/24 01:26 Dose: 50 mg Triamcinolone Acetonide (Triamcinolone Acet 0.1 % Cream 15 Gm Tube) 1 appl TOPICAL DAILY PRN PRN Reason: rash Vitamin D (Cholecalciferol (Vitamin D3) 25 Mcg Tablet) 25 mcg PO DAILY [facility] Last Admin: 02/13/24 08:58 Dose: 25 mcg Home Medications ?Medication ?Instructions ?Recorded ?Confirmed ?Last Taken ?Type lorazepam 1 mg tablet 1 mg PO BID PRN Anxiety 11/02/22 02/06/24 Unknown History potassium citrate 5 mEq (540 mg) 5 meq PO DAILY 06/13/23 02/06/24 01/21/24 History tablet,extended release melatonin 5 mg tablet 5 mg PO BEDTIME PRN Insomnia 07/14/23 02/06/24 Unknown History mirtazapine 15 mg tablet 15 mg PO BEDTIME 12/05/23 02/06/24 01/21/24 History naproxen 500 mg tablet 500 mg PO DAILY 12/05/23 02/06/24 01/21/24 History topiramate 100 mg tablet 100 mg PO DAILY 12/05/23 02/06/24 Unknown History albuterol sulfate 90 mcg/actuation 2 puff inhalation Q6H PRN wheezing 01/23/24 02/06/24 Unknown History aerosol inhaler (Ventolin HFA) diphenhydramine HCl 25 mg capsule 25 mg PO TID PRN allergies 01/23/24 02/06/24 Unknown History (Banophen) lurasidone 40 mg tablet 40 mg PO DAILY 01/23/24 02/06/24 01/21/24 History pantoprazole 40 mg tablet,delayed 40 mg PO DAILY@0630 01/23/24 02/06/24 01/21/24 History release Exam Height,Weight and Vital Signs: Weight 73.7 kg Last Vital Signs Temp 97.5 F 02/14/24 06:15 Pulse 66 02/14/24 06:15 Resp 16 02/14/24 06:15 BP 106/71 02/14/24 06:15 Pulse Ox 97 02/14/24 06:15 O2 Del Method Room Air 02/13/24 20:00 Airway Mallampati Class: II TM Dist: >3cm Neck ROM: Full Heart: rrr Lungs: cta Assessment and Plan Assessment Anesthesia Assessment: Anesthesia Plan Discussed and Chart Reviewed Final Anesthetic Review Family History of Problems with Anesthesia: No History of Problems with Anesthesia: No NPO: Yes ASA Class: III Final Preanesthetic Review: No Changes in Pt Med Stat, Meds/Allgs Chart Reviewed and Consent Obtained/Reviewed Patient Risk: Intermediate Procedure Risk: Low Anesthetic Plan Anesthetic Plan: GA Disposition: Standard PACU
--- NOTE | 2024-02-14 07:47 | MHC.SHP ---
Pre-Procedural Eval Section A - 24 Hr Update-Section A only Date of Service: 02/14/24 The patient is an INPATIENT: Yes Changes since office visit: Yes New Medical Problems, Yes Changes in Medication and Yes Patient answered all questions; No Cold of Flu in the past 2 weeks The patient has been examined within 24 hours of the surgical procedure. The History & Physical has been completed within 30 days and I have reviewed it.: Yes Section B - Complete if H&P > 30 days Chief Complaint: Depression Allergies: Allergies Allergy/AdvReac Type Severity Reaction Status Date / Time acetaminophen AdvReac Unknown Unknown Verified 01/22/24 09:01 atorvastatin AdvReac Severe elevated Uncoded 01/22/24 09:01 liver enzymes Plan I have reviewed the history and physical and performed a pertinent physical examination on my patient. No changes have occurred unless specified. Time Spent With Patient Time: Total time managing care of this patient today ____ minutes.
--- NOTE | 2024-02-14 07:48 | HO.ECTPROC ---
ECT Procedure Note Diagnosis/Treatment Date of Service: 02/14/24 Diagnosis: Major Depressive Disorder Previous ECT Date: 01/31/24 Current Treatment Number: 2 Treatment: Series Interval Clinical Notes: The patient reported depression, but burnette affect questions answered again gave consent . Hosp notes pulm reviewed , case reviewed with anesthesia prior to treatment. ECT done right unilateral, at 0.25 at 80 % Time: Total time managing care of this patient today _35___ minutes. ECT Settings Device: THYMATRON DGx Electrode Placement: Right Unilateral Program/Pulse Width: 0.25 Energy Percent: 80 Seizure Duration By EEG (in seconds): 65 Medications Administration General Anesthetic: Etomidate (10) Muscle Relaxant: Succinylcholine (80) Airway Management Airway Management: Bag Mask Ventilation Treatment Recommendations Electrode Placement: Right Unilateral Program/Pulse Width: 0.25 Energy Percent: 80 Notes: Postop headache add Toradol next treatment preop Pt Tolerated Procedure w/o Issue: Yes
[2024-02-14] MEDS: Gabapentin 400 MG CAPSULE 800 MG PO ×3 (09:03→23:01)
[2024-02-14] MEDS: Topiramate 100 MG TABLET PO (09:03)
[2024-02-14] MEDS: Apixaban 5 MG TABLET PO ×2 (09:03→23:01)
[2024-02-14] MEDS: Omeprazole 20 MG CAPSULE.DR PO (09:03)
[2024-02-14] MEDS: Docusate Sodium 100 MG CAPSULE PO (09:03)
[2024-02-14] MEDS: Ferrous Sulfate 324 MG TABLET.DR PO (09:03)
[2024-02-14] MEDS: Midodrine HCl 10 MG TABLET PO ×3 (09:03→17:56)
[2024-02-14] MEDS: Cariprazine HCl 1.5 MG CAPSULE 4.5 MG PO (09:03)
[2024-02-14] MEDS: Cyanocobalamin (Vitamin B-12) 500 MCG TABLET PO (09:04)
[2024-02-14] MEDS: risperiDONE 1 MG TABLET PO (09:04)
[2024-02-14] MEDS: Cholecalciferol (Vitamin D3) 25 MCG TABLET PO (09:04)
[2024-02-14] MEDS: ROSUVASTATIN 5 MG 5 EACH PO (09:05)
[2024-02-14] MEDS: Hydrocortisone 2.5 % Rectal Cr 30 GM TUBE 1 APPL PR (09:06)
--- NOTE | 2024-02-14 10:02 | P.PNPSI_ITS ---
Subjective Subjective Date of Service: 02/14/24 Reason For Visit: Depression Interim History: Met with patient; discussed with team Patient had ECT this morning and reports that she has a headache and asked for medication and was given another dose of Fioricet. She denies any AH today for which she is relieved. Discussed medication management and she agrees to increase Risperdal for now and wants to continue with ECT Mental Status Exam Mental Status Exam Narrative: Pt is alert and oriented; behavior is cooperative, calm; dressed in casual pajamas with adequate grooming; mood is described as Depressed.. affect downcast; eye contact appropriate; Speech remains soft volume, slowed rate; normal prosody; psychomotor retardation present; thought process is goal orie nted; Thought content is on symptoms, tx; otherwise pertinent to relevant topics and without any delusional content, paranoid ideations or grandiosity; no SI; no HI; denies AH today Patients insight and judgment impaired Diagnostics Vital Signs (24Hr): Vital Signs - 24 hr 02/13/24 13:22 02/13/24 20:00 02/14/24 00:12 Temperature 97.9 F Pulse Rate 74 Respiratory Rate 18 18 Blood Pressure 99/60 113/78 Pulse Oximetry 98 Oxygen Delivery Method Room Air Oxygen Flow Rate 02/14/24 06:15 02/14/24 07:17 02/14/24 08:00 Temperature 97.5 F 97.1 F Pulse Rate 66 60 73 Respiratory Rate 16 14 18 Blood Pressure 106/71 114/75 117/63 Pulse Oximetry 97 100 97 Oxygen Delivery Method Room Air Room Air Oxygen Flow Rate 02/14/24 08:06 02/14/24 08:10 02/14/24 08:15 Temperature 97.7 F Pulse Rate 73 80 77 Respiratory Rate 17 17 18 Blood Pressure 126/78 127/87 124/88 Pulse Oximetry 98 98 98 Oxygen Delivery Method Nasal Cannula Nasal Cannula Nasal Cannula Oxygen Flow Rate 2 2 2 02/14/24 08:20 02/14/24 08:35 02/14/24 09:03 Temperature Pulse Rate 80 71 Respiratory Rate 18 18 Blood Pressure 124/88 121/78 117/63 Pulse Oximetry 98 98 Oxygen Delivery Method Nasal Cannula Room Air Oxygen Flow Rate 2 02/14/24 09:19 Temperature Pulse Rate 73 Respiratory Rate 18 Blood Pressure 117/63 Pulse Oximetry 97 Oxygen Delivery Method Oxygen Flow Rate Medications Medications Current Medications Acetaminophen/Butalbital/Caffeine (Butalb/Acetamin/Caff 50/325/40 Tablet) 2 tab PO Q6H PRN PRN Reason: Migraine Headache Al Hydroxide/Mg Hydroxide (Magnesium Hydrox/Alum Hydrox 30 Ml Oral.Susp) 30 ml PO Q6H PRN PRN Reason: Heartburn/Nausea Albuterol Sulfate (Albuterol Sulfate 90 Mcg 8 Gm Inhaler) 2 puff INHALE RQ6H PRN PRN Reason: wheezing Apixaban (Apixaban 5 Mg Tablet) 5 mg PO BID REPLACED BY [facility] Last Admin: 02/14/24 09:03 Dose: 5 mg Bisacodyl (Bisacodyl 5 Mg Tablet.) 10 mg PO BEDTIME REPLACED BY [facility] Last Admin: 02/13/24 21:24 Dose: 10 mg Cariprazine (Cariprazine Hcl 1.5 Mg Capsule) 4.5 mg PO DAILY REPLACED BY [facility] Last Admin: 02/14/24 09:03 Dose: 4.5 mg Cyanocobalamin (Cyanocobalamin (Vitamin B-12) 500 Mcg Tablet) 500 mcg PO DAILY REPLACED BY [facility] Last Admin: 02/14/24 09:04 Dose: 500 mcg Diphenhydramine HCl (Diphenhydramine Hcl 25 Mg Capsule) 25 mg PO TID PRN PRN Reason: allergies Last Admin: 02/13/24 21:24 Dose: 25 mg Docusate Sodium (Docusate Sodium 100 Mg Capsule) 100 mg PO DAILY REPLACED BY [facility] Last Admin: 02/14/24 09:03 Dose: 100 mg Ferrous Sulfate (Ferrous Sulfate 324 Mg Tablet.) 324 mg PO DAILY REPLACED BY [facility] Last Admin: 02/14/24 09:03 Dose: 324 mg Gabapentin (Gabapentin 400 Mg Capsule) 800 mg PO TID REPLACED BY [facility] Last Admin: 02/14/24 09:03 Dose: 800 mg Hydrocortisone (Hydrocortisone 2.5 % Rectal Cr 30 Gm Tube) 1 appl IA BID REPLACED BY [facility] Last Admin: 02/14/24 09:06 Dose: 1 appl Hydroxyzine HCl (Hydroxyzine Hcl 25 Mg Tablet) 25 mg PO Q6H PRN PRN Reason: Anxiety Last Admin: 02/14/24 01:26 Dose: 25 mg Lorazepam (Lorazepam 1 Mg Tablet) 1 mg PO BID PRN PRN Reason: Anxiety Last Admin: 02/13/24 21:24 Dose: 1 mg Lurasidone HCl (Lurasidone Hcl 40 Mg Tablet) 40 mg PO DAILY@1800 REPLACED BY [facility] Last Admin: 02/13/24 19:41 Dose: 40 mg Magnesium Hydroxide (Milk Of Magnesia 30 Ml Oral.Susp) 30 ml PO DAILY PRN PRN Reason: Constipation Meclizine HCl (Meclizine Hcl 25 Mg Tablet) 25 mg PO TID PRN PRN Reason: dizziness Melatonin (Melatonin 3 Mg Tablet) 9 mg PO BEDTIME PRN PRN Reason: Insomnia Last Admin: 02/13/24 21:24 Dose: 9 mg Midodrine (Midodrine Hcl 10 Mg Tablet) 10 mg PO TID@0900,1300,1800 REPLACED BY [facility] Last Admin: 02/14/24 09:03 Dose: 10 mg Mirtazapine (Mirtazapine 15 Mg Tablet) 15 mg PO BEDTIME REPLACED BY [facility] Last Admin: 02/13/24 21:24 Dose: 15 mg Nicotine Polacrilex (Nicotine Polacrilex 2 Mg Gum) 4 mg BUCCAL Q2H PRN PRN Reason: Nicotine Cravings Pt Own (Rosuvastatin (5 Mg Tablet)) 5 mg PO DAILY REPLACED BY [facility] Last Admin: 02/14/24 09:05 Dose: 5 mg Omeprazole (Omeprazole 20 Mg Capsule.Dr) 20 mg PO DAILY@0630 REPLACED BY [facility] Last Admin: 02/14/24 09:03 Dose: 20 mg Risperidone (Risperidone 1 Mg Tablet) 1 mg PO BID PRN PRN Reason: AH Last Admin: 02/13/24 10:05 Dose: 1 mg Risperidone (Risperidone 1 Mg Tablet) 1 mg PO TID REPLACED BY [facility] Last Admin: 02/14/24 09:04 Dose: 1 mg Topiramate (Topiramate 100 Mg Tablet) 100 mg PO DAILY REPLACED BY [facility] Last Admin: 02/14/24 09:03 Dose: 100 mg Tramadol HCl (Tramadol Hcl 50 Mg Tablet) 100 mg PO Q8H PRN PRN Reason: severe pain Last Admin: 02/12/24 15:04 Dose: 100 mg Trazodone HCl (Trazodone Hcl 50 Mg Tablet) 50 mg PO BEDTIME MRX1 PRN PRN Reason: Insomnia Last Admin: 02/14/24 01:26 Dose: 50 mg Triamcinolone Acetonide (Triamcinolone Acet 0.1 % Cream 15 Gm Tube) 1 appl TOPICAL DAILY PRN PRN Reason: rash Vitamin D (Cholecalciferol (Vitamin D3) 25 Mcg Tablet) 25 mcg PO DAILY JYOTHI Last Admin: 02/14/24 09:04 Dose: 25 mcg Allergies Allergies Allergy/AdvReac Type Severity Reaction Status Date / Time acetaminophen AdvReac Unknown Unknown Verified 01/22/24 09:01 atorvastatin AdvReac Severe elevated Uncoded 01/22/24 09:01 liver enzymes Assessment & Plan Assessment & Plan (1) MDD (major depressive disorder), recurrent, severe, with psychosis: Status: Acute Code(s): F33.3 - Major depressive disorder, recurrent, severe with psychotic symptoms (2) Post traumatic stress disorder (PTSD): Status: Acute Code(s): F43.10 - Post-traumatic stress disorder, unspecified (3) Pulmonary embolism: Qualifiers: Pulmonary embolism type: multiple subsegmental (without acute cor pulmonale) Qualified Code(s): I26.94 - Multiple subsegmental thrombotic pulmonary emboli without acute cor pulmonale Status: Acute Code(s): I26.99 - Other pulmonary embolism without acute cor pulmonale (4) MIGUEL (obstructive sleep apnea): Status: Acute Code(s): G47.33 - Obstructive sleep apnea (adult) (pediatric) (5) Chronic kidney disease, stage III (moderate): Qualifiers: Chronic kidney disease stage 3 subtype: stage 3a (GFR 45-59) Qualified Code(s): N18.31 - Chronic kidney disease, stage 3a Status: Acute Code(s): N18.30 - Chronic kidney disease, stage 3 unspecified Plan HPI: Patient is a 53-year-old female with history of MDD with psychotic features (r/o schizoaffective disorder, depressed type) PTSD, borderline traits, kidney cancer (one kidney). She first presented for admission for worsening depression and AH. Patient was feeling overall good enough until about 4 months ago. Without any obvious trigger, and despite continued adherence to medication regimen, she reports that her mood started to decline and AH (which is present independent of mood) became worse. Patient said she started having bad thoughts.. At which she became tearful and would not disclose them. She said her mood got worse and worse and voices told her to hurt herself; she started seeing shadow figures and having horrific nightmares where sometimes she can tell if she was awake or asleep but saw a ball of fire and things burning. AH worsened this past week and so hema lee presented. She denies any history of manic type behaviors; ongoing PTSD symptoms. Patient does not remember history of med trials On M5, patient was started on Vraylar and ECT. She only received 2 ECT trials when she developed a pulmonary embolism; patient started on anticoagulation however ECT held. A few days later patient reported left-sided weakness which was evident on exam; she was transferred to medical floor, with head/neck CT/angiogram and then MRI; patient was diagnosed with complex migraine that can mimic a stroke; patient was stabilized and returned to the unit. There were some incidental findings which included thyroid nodules that medical team thought could be followed up as an outpatient. Now stabilized, patient returns to for continued treatment for depression. Patient reports she remains very depressed and continues to have AH which are very bothersome. Patient adamantly requests to restart ECT which she was hopeful would be helpful. Formulaton/clinical reasoning: Work From Home discussed case with patient's outpatient psychiatric provider Dr. Kathleen who has known patient for years. She reports that Patient has long history of depression, frequently severe, intermixed with PTSD symptoms, emotional reactivity; although patient endorses continue AH, Dr. Kathleen does not think necessarily an organic psychotic illness and only symptom is AH (no history of delusional thinking, no disorganized speech or behavior). Pt has had numerous medication trials with only partial response. Discussed treatment approaches and provider agrees that ECT trial is warranted; no benefit from Latuda thus far and although was only at 20 mg, agree to start Vraylar instead which maybe a little more robust in dealing with AH. Patient amenable to changing medications. [place]? only one kidney so hesitant. Also considerations are OCD/JAMIE regarding dx, although pt has AH (which IS independent of mood), she has no other psychotic symptoms HOSPITAL COURSE: 02/07 complaining of worsened command AH to kill self; tearful. Risperdal worked as PRN for few hours so she agreed to restart (failed in past). 1.continues on Vraylar 4.5mg daily: maybe helped with depression some, but AH remained 2.returned from Medical floor on Latuda (which was did not seem to help in past), but since so depressed and not sure if will get ECT, left it since monotherapy has not been effective (will leave for now, but likey dc) 3.Started on Risperdal 1mg TID since prn risperdal took away AH for a few hours 4. Currently on 3 antipsychotics but will likely dc some of them. -Regarding ECT, Discussed with Principal Law Clerk Dr. Guthrie who reports pt does not need O2 and From a pulmonary standpoint, the patient is doing well, stable. She may proceed with anesthesia and ECT at this time as long as she can the anticoagulation without interruptions. -Discussed with Anesthesiologis Dr. Willett who agrees that pulm recs are sufficient to proceed with ECT and that pt can remain on anticoagulation dx, although pt has AH (which IS independent of mood), she has no other psychotic symptoms 02/09/24 Discussed with pt sx with interpetr hx chronic hills depression hx depression ptsd ? dissociative hills would taper latuda ect when available next few days if remains unchanged some aspects of sx are chronic with recent exacerbation pt has been able to mainsafety no sob noted 02/12 pt remains depressed but says Risperdal helps when she takes it; says this morning, AH command, upsetting but dissipated with scheduled and prn risperdal. Discussed ECT and pt wants to continue 02/13 Patient had ECT this morning and reports that she has a headache and asked for medication and was given another dose of Fioricet. She denies any AH today for which she is relieved. Discussed medication management and she agrees to increase Risperdal for now and wants to continue with ECT PLAN: CV Q 15 minute checks ECT #3 pending 02/15 NPO Taper off Latuda Increased to Risperdal 2mg BID for continued AH (up from 1mg TID) continue vryaler 4.5mg for depression currently on Vraylar, Latuda and recently started on Risperdal. This is temporary and will continue to fine tune. Numerous failed Med trials: Haldol: got tremor abilify: wt gain risperidone Geodon Cymbalta, Effexor, Lexapro, Pristiq mirtazapine lamictal Medical comorbidities: 1. L-sided weakness: Resolved, transient: complex migraine; Neuro consulted, likely complex migraine rather than CVA/TIA. Sumatriptan contraindicated; use Fioricet prn; continue topiramate 2. transaminasemia - has been a recurrent problem in past; US with Dopplers + GI cosult pending; LFTs improving; 3. recently diagnosed PE 01/31 [R main PA + segmental branches of RLL] - was started on therapeutic enoxaparin; transitioned to apixaban 4.orthostatic hypotension, chronic; - continue midodrine 5. Incidental finding on CTA: possible thinning of semicircular canals bilaterally with question of dehiscence noted on CTA, incidental (ED contacted ENT) likely transient, follow up as outpt, no further workup at this time 6. Incidental finding on CTA: thyroid nodule, incidentally noted on CTA, 1.9 cm left; outpt f/u with thyroid US 7. IBS-C; bowel regimen, outpt GI f/u 8. asthma not in acute exac; prn albuterol 9. MIGUEL; CPAP at night Patient educated on: diagnosis Guardian/Caregiver educated on: medication risk/benefits, ECT and medical condition Informed Consent: understands Reason for continued inpatient stay Substantial Risk for: rapid decompensation Time Spent With Patient Time: Total time managing care of this patient today ____ minutes.
[2024-02-14] MEDS: Butalb/Acetamin/Caff 50/325/40 TABLET 2 TAB PO ×4 (11:40→23:06)
[2024-02-14] MEDS: Lurasidone HCl 40 MG TABLET PO (17:56)
[2024-02-14] MEDS: bisacodyL 5 MG TABLET.DR 10 MG PO (23:00)
[2024-02-14] MEDS: Mirtazapine 15 MG TABLET PO (23:00)
[2024-02-14] MEDS: Melatonin 3 MG TABLET 9 MG PO (23:00)
[2024-02-14] MEDS: diphenhydrAMINE HCL 25 MG CAPSULE PO (23:01)
[2024-02-14] MEDS: risperiDONE 2 MG TABLET PO (23:01)
[2024-02-15] MEDS: traMADoL HCL 50 MG TABLET 100 MG PO (05:00)
[2024-02-15] MEDS: Butalb/Acetamin/Caff 50/325/40 TABLET 2 TAB PO ×3 (07:16→20:59)
--- NOTE | 2024-02-15 08:01 | HO.POSTANES ---
Post Anesthesia Evaluation Post Anesthesia Evaluation Date of Service: 02/14/24 Vital Signs: Vital Signs Temp Pulse Resp BP Pulse Ox O2 Del Method 02/14/24 20:37 98.4 F 71 18 104/56 L 98 Room Air Anesthesia: General Mental Status: Awake Pain Control: Satisfactory Nausea/Vomiting: None Hydration: Adequate Anesthesia-Related Issues: No Anes. Related Issues
[2024-02-15] MEDS: Gabapentin 400 MG CAPSULE 800 MG PO ×2 (08:53→14:31)
[2024-02-15] MEDS: Cholecalciferol (Vitamin D3) 25 MCG TABLET PO (08:53)
[2024-02-15] MEDS: ROSUVASTATIN 5 MG 5 EACH PO (08:53)
[2024-02-15] MEDS: Omeprazole 20 MG CAPSULE.DR PO (08:53)
[2024-02-15] MEDS: Ferrous Sulfate 324 MG TABLET.DR PO (08:53)
[2024-02-15] MEDS: Cariprazine HCl 1.5 MG CAPSULE 4.5 MG PO (08:53)
[2024-02-15] MEDS: Docusate Sodium 100 MG CAPSULE PO (08:53)
[2024-02-15] MEDS: Cyanocobalamin (Vitamin B-12) 500 MCG TABLET PO (08:53)
[2024-02-15] MEDS: Apixaban 5 MG TABLET PO ×2 (08:53→20:55)
[2024-02-15] MEDS: risperiDONE 2 MG TABLET PO ×2 (08:53→20:55)
[2024-02-15] MEDS: Midodrine HCl 10 MG TABLET PO ×3 (08:53→17:48)
[2024-02-15] MEDS: Topiramate 100 MG TABLET PO (08:53)
[2024-02-15 09:04] VITALS: BP 92/52; PULSE 57; RESP 16; TEMP 35.9; O2SAT 98
--- NOTE | 2024-02-15 09:42 | P.PNPSI_ITS ---
Subjective Subjective Date of Service: 02/15/24 Reason For Visit: Depression Interim History: met with patient; discussed with team Patient reports that her mood is so-so which is the best it has been since she got here. Also says no AH which makes 2 days now enroll. Patient discussed medications and ECT and wants to continue with both. Discussed how it is unclear if AH is resolving because of ECT or Risperdal but because she is doing better will continue with this medication for now Mental Status Exam Mental Status Exam Narrative: Pt is alert and oriented; behavior is cooperative, calm; dressed in casual pajamas with adequate grooming; mood is described as so-so. affect downcast but perhaps a little brighter; eye contact appropriate; Speech remains soft vo lume, slowed rate; normal prosody; psychomotor retardation present; thought process is goal oriented; Thought content is on symptoms, tx; otherwise pertinent to relevant topics and without any delusional content, paranoid ideations or grandiosity; no SI; no HI; denies AH today Patients insight and judgment impaired Diagnostics Vital Signs (24Hr): Vital Signs - 24 hr 02/14/24 11:41 02/14/24 17:56 02/14/24 20:37 Temperature 98.4 F Pulse Rate 71 Respiratory Rate 18 Blood Pressure 108/67 105/56 L 104/56 L Pulse Oximetry 98 Oxygen Delivery Method Room Air 02/15/24 09:04 Temperature 96.6 F L Pulse Rate 57 Respiratory Rate 16 Blood Pressure 92/52 L Pulse Oximetry 98 Oxygen Delivery Method Room Air Medications Medications Current Medications Acetaminophen/Butalbital/Caffeine (Butalb/Acetamin/Caff 50/325/40 Tablet) 2 tab PO Q6H PRN PRN Reason: Migraine Headache Last Admin: 02/15/24 07:16 Dose: 2 tab Al Hydroxide/Mg Hydroxide (Magnesium Hydrox/Alum Hydrox 30 Ml Oral.Susp) 30 ml PO Q6H PRN PRN Reason: Heartburn/Nausea Albuterol Sulfate (Albuterol Sulfate 90 Mcg 8 Gm Inhaler) 2 puff INHALE RQ6H PRN PRN Reason: wheezing Apixaban (Apixaban 5 Mg Tablet) 5 mg PO BID [facility] Last Admin: 02/15/24 08:53 Dose: 5 mg Bisacodyl (Bisacodyl 5 Mg Tablet.) 10 mg PO BEDTIME [facility] Last Admin: 02/14/24 23:00 Dose: 10 mg Cariprazine (Cariprazine Hcl 1.5 Mg Capsule) 4.5 mg PO DAILY [facility] Last Admin: 02/15/24 08:53 Dose: 4.5 mg Cyanocobalamin (Cyanocobalamin (Vitamin B-12) 500 Mcg Tablet) 500 mcg PO DAILY [facility] Last Admin: 02/15/24 08:53 Dose: 500 mcg Diphenhydramine HCl (Diphenhydramine Hcl 25 Mg Capsule) 25 mg PO TID PRN PRN Reason: allergies Last Admin: 02/14/24 23:01 Dose: 25 mg Docusate Sodium (Docusate Sodium 100 Mg Capsule) 100 mg PO DAILY [facility] Last Admin: 02/15/24 08:53 Dose: 100 mg Ferrous Sulfate (Ferrous Sulfate 324 Mg Tablet.Dr) 324 mg PO DAILY [facility] Last Admin: 02/15/24 08:53 Dose: 324 mg Gabapentin (Gabapentin 400 Mg Capsule) 800 mg PO TID [facility] Last Admin: 02/15/24 08:53 Dose: 800 mg Hydrocortisone (Hydrocortisone 2.5 % Rectal Cr 30 Gm Tube) 1 appl DE BID [facility] Last Admin: 02/15/24 09:05 Dose: Not Given Hydroxyzine HCl (Hydroxyzine Hcl 25 Mg Tablet) 25 mg PO Q6H PRN PRN Reason: Anxiety Last Admin: 02/14/24 23:00 Dose: 25 mg Lorazepam (Lorazepam 1 Mg Tablet) 1 mg PO BID PRN PRN Reason: Anxiety Last Admin: 02/13/24 21:24 Dose: 1 mg Magnesium Hydroxide (Milk Of Magnesia 30 Ml Oral.Susp) 30 ml PO DAILY PRN PRN Reason: Constipation Meclizine HCl (Meclizine Hcl 25 Mg Tablet) 25 mg PO TID PRN PRN Reason: dizziness Melatonin (Melatonin 3 Mg Tablet) 9 mg PO BEDTIME PRN PRN Reason: Insomnia Last Admin: 02/14/24 23:00 Dose: 9 mg Midodrine (Midodrine Hcl 10 Mg Tablet) 10 mg PO TID@0900,1300,1800 [facility] Last Admin: 02/15/24 08:53 Dose: 10 mg Mirtazapine (Mirtazapine 15 Mg Tablet) 15 mg PO BEDTIME [facility] Last Admin: 02/14/24 23:00 Dose: 15 mg Nicotine Polacrilex (Nicotine Polacrilex 2 Mg Gum) 4 mg BUCCAL Q2H PRN PRN Reason: Nicotine Cravings Pt Own (Rosuvastatin (5 Mg Tablet)) 5 mg PO DAILY [facility] Last Admin: 02/15/24 08:53 Dose: 5 mg Omeprazole (Omeprazole 20 Mg Capsule.Dr) 20 mg PO DAILY@0630 [facility] Last Admin: 02/15/24 08:53 Dose: 20 mg Risperidone (Risperidone 1 Mg Tablet) 1 mg PO BID PRN PRN Reason: AH Last Admin: 02/13/24 10:05 Dose: 1 mg Risperidone (Risperidone 2 Mg Tablet) 2 mg PO BID [facility] Last Admin: 02/15/24 08:53 Dose: 2 mg Topiramate (Topiramate 100 Mg Tablet) 100 mg PO DAILY [facility] Last Admin: 02/15/24 08:53 Dose: 100 mg Tramadol HCl (Tramadol Hcl 50 Mg Tablet) 100 mg PO Q8H PRN PRN Reason: severe pain Last Admin: 02/15/24 05:00 Dose: 100 mg Trazodone HCl (Trazodone Hcl 50 Mg Tablet) 50 mg PO BEDTIME MRX1 PRN PRN Reason: Insomnia Last Admin: 02/14/24 23:01 Dose: 50 mg Triamcinolone Acetonide (Triamcinolone Acet 0.1 % Cream 15 Gm Tube) 1 appl TOPICAL DAILY PRN PRN Reason: rash Vitamin D (Cholecalciferol (Vitamin D3) 25 Mcg Tablet) 25 mcg PO DAILY [facility] Last Admin: 02/15/24 08:53 Dose: 25 mcg Allergies Allergies Allergy/AdvReac Type Severity Reaction Status Date / Time acetaminophen AdvReac Unknown Unknown Verified 01/22/24 09:01 atorvastatin AdvReac Severe elevated Uncoded 01/22/24 09:01 liver enzymes Assessment & Plan Assessment & Plan (1) MDD (major depressive disorder), recurrent, severe, with psychosis: Status: Acute Code(s): F33.3 - Major depressive disorder, recurrent, severe with psychotic symptoms (2) Post traumatic stress disorder (PTSD): Status: Acute Code(s): F43.10 - Post-traumatic stress disorder, unspecified (3) Pulmonary embolism: Qualifiers: Pulmonary embolism type: multiple subsegmental (without acute cor pulmonale) Qualified Code(s): I26.94 - Multiple subsegmental thrombotic pulmonary emboli without acute cor pulmonale Status: Acute Code(s): I26.99 - Other pulmonary embolism without acute cor pulmonale (4) MIGUEL (obstructive sleep apnea): Status: Acute Code(s): G47.33 - Obstructive sleep apnea (adult) (pediatric) (5) Chronic kidney disease, stage III (moderate): Qualifiers: Chronic kidney disease stage 3 subtype: stage 3a (GFR 45-59) Qualified Code(s): N18.31 - Chronic kidney disease, stage 3a Status: Acute Code(s): N18.30 - Chronic kidney disease, stage 3 unspecified Plan HPI: Patient is a 53-year-old female with history of MDD with psychotic features (r/o schizoaffective disorder, depressed type) PTSD, borderline traits, kidney cancer (one kidney). She first presented for admission for worsening depression and AH. Patient was feeling overall good enough until about 4 months ago. Without any obvious trigger, and despite continued adherence to medication regimen, she reports that her mood started to decline and AH (which is present independent of mood) became worse. Patient said she started having bad thoughts.. At which she became tearful and would not disclose them. She said her mood got worse and worse and voices told her to hurt herself; she started seeing shadow figures and having horrific nightmares where sometimes she can tell if she was awake or asleep but saw a ball of fire and things burning. AH worsened this past week and so patient self presented. She denies any history of manic type behaviors; ongoing PTSD symptoms. Patient does not remember history of med trials On M5, patient was started on Vraylar and ECT. She only received 2 ECT trials when she developed a pulmonary embolism; patient started on anticoagulation however ECT held. A few days later patient reported left-sided weakness which was evident on exam; she was transferred to medical floor, with head/neck CT/angiogram and then MRI; patient was diagnosed with complex migraine that can mimic a stroke; patient was stabilized and returned to the unit. There were some incidental findings which included thyroid nodules that medical team thought could be followed up as an outpatient. Now stabilized, patient returns to for continued treatment for depression. Patient reports she remains very depressed and continues to have AH which are very bothersome. Patient adamantly requests to restart ECT which she was hopeful would be helpful. Formulaton/clinical reasoning: [employer] discussed case with patient's outpatient psychiatric provider Dr. Kathleen who has known patient for years. She reports that Patient has long history of depression, frequently severe, intermixed with PTSD symptoms, emotional reactivity; although patient endorses continue AH, Dr. Kathleen does not think necessarily an organic psychotic illness and only symptom is AH (no history of delusional thinking, no disorganized speech or behavior). Pt has had numerous medication trials with only partial response. Discussed treatment approaches and provider agrees that ECT trial is warranted; no benefit from Latuda thus far and although was only at 20 mg, agree to start Vraylar instead which maybe a little more robust in dealing with AH. Patient amenable to changing medications. [place]ner? only one kidney so hesitant. Also considerations are OCD/JAMIE regarding dx, although pt has AH (which IS independent of mood), she has no other psychotic symptoms HOSPITAL COURSE: 02/07 complaining of worsened command AH to kill self; tearful. Risperdal worked as PRN for few hours so she agreed to restart (failed in past). 1.continues on Vraylar 4.5mg daily: maybe helped with depression some, but AH remained 2.returned from Medical floor on Latuda (which was did not seem to help in past), but since so depressed and not sure if will get ECT, left it since monotherapy has not been effective (will leave for now, but likey dc) 3.Started on Risperdal 1mg TID since prn risperdal took away AH for a few hours 4. Currently on 3 antipsychotics but will likely dc some of them. -Regarding ECT, Discussed with Manager Rehab Dr. Guthrie who reports pt does not need O2 and From a pulmonary standpoint, the patient is doing well, stable. She may proceed with anesthesia and ECT at this time as long as she can the anticoagulation without interruptions. -Discussed with Anesthesiologis Dr. Willett who agrees that pulm recs are sufficient to proceed with ECT and that pt can remain on anticoagulation dx, although pt has AH (which IS independent of mood), she has no other psychotic symptoms 02/09/24 Discussed with pt sx with interpetr hx chronic hills depression hx depression ptsd ? dissociative hills would taper latuda ect when available next few days if remains unchanged some aspects of sx are chronic with recent exacerbation pt has been able to mainsafety no sob noted 02/12 pt remains depressed but says Risperdal helps when she takes it; says this morning, AH command, upsetting but dissipated with scheduled and prn risperdal. Discussed ECT and pt wants to continue 02/13 Patient had ECT this morning and reports that she has a headache and asked for medication and was given another dose of Fioricet. She denies any AH today for which she is relieved. Discussed medication management and she agrees to increase Risperdal for now and wants to continue with ECT 02/14 Patient reports that her mood is so-so which is the best it has been since she got here. Also says no AH which makes 2 days now enroll. Patient discussed medications and ECT and wants to continue with both. 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 This is temporary and will continue to fine tune. Numerous failed Med trials: Haldol: got tremor abilify: wt gain risperidone Geodon Cymbalta, Effexor, Lexapro, Pristiq mirtazapine lamictal Medical comorbidities: 1. L-sided weakness: Resolved, transient: complex migraine; Neuro consulted, likely complex migraine rather than CVA/TIA. Sumatriptan contraindicated; use Fioricet prn; continue topiramate 2. transaminasemia - has been a recurrent problem in past; US with Dopplers + GI cosult pending; LFTs improving; 3. recently diagnosed PE 01/31 [R main PA + segmental branches of RLL] - was started on therapeutic enoxaparin; transitioned to apixaban 4.orthostatic hypotension, chronic; - continue midodrine 5. Incidental finding on CTA: possible thinning of semicircular canals bilaterally with question of dehiscence noted on CTA, incidental (ED contacted ENT) likely transient, follow up as outpt, no further workup at this time 6. Incidental finding on CTA: thyroid nodule, incidentally noted on CTA, 1.9 cm left; outpt f/u with thyroid US 7. IBS-C; bowel regimen, outpt GI f/u 8. asthma not in acute exac; prn albuterol 9. MIGUEL; CPAP at night Patient educated on: diagnosis, medication risk/benefits, ECT and medical condition Informed Consent: understands Reason for continued inpatient stay Substantial Risk for: rapid decompensation Time Spent With Patient Time: Total time managing care of this patient today ____ minutes.
[2024-02-15 12:49] VITALS: BP 109/57; PULSE 70
[2024-02-15 17:48] VITALS: BP 110/56
[2024-02-15 20:00] VITALS: BP 96/64; PULSE 73; RESP 16; TEMP 36.4; O2SAT 98
[2024-02-15] MEDS: Mirtazapine 15 MG TABLET PO (20:55)
[2024-02-15] MEDS: bisacodyL 5 MG TABLET.DR 10 MG PO (20:55)
[2024-02-15] MEDS: Melatonin 3 MG TABLET 9 MG PO (20:59)
[2024-02-15] MEDS: diphenhydrAMINE HCL 25 MG CAPSULE PO (20:59)
[2024-02-15 23:21] VITALS: RESP 16
[2024-02-16] VITALS (11 sets, daily range): BP systolic 94–172; BP diastolic 55–79; PULSE 52–81; RESP 16–21; TEMP 35.8–36.8; O2SAT 97–99
[2024-02-16] MEDS: Omeprazole 20 MG CAPSULE.DR PO (06:56)
[2024-02-16] MEDS: Midodrine HCl 10 MG TABLET PO ×3 (08:33→17:37)
--- NOTE | 2024-02-16 09:31 | MHC.SHP ---
Pre-Procedural Eval Section A - 24 Hr Update-Section A only Date of Service: 02/16/24 The patient is an INPATIENT: Yes Changes since office visit: Yes New Medical Problems, Yes Changes in Medication and Yes Patient answered all questions; No Cold of Flu in the past 2 weeks The patient has been examined within 24 hours of the surgical procedure. The History & Physical has been completed within 30 days and I have reviewed it.: Yes Section B - Complete if H&P > 30 days Chief Complaint: Depression Allergies: Allergies Allergy/AdvReac Type Severity Reaction Status Date / Time acetaminophen AdvReac Unknown Unknown Verified 01/22/24 09:01 atorvastatin AdvReac Severe elevated Uncoded 01/22/24 09:01 liver enzymes Plan I have reviewed the history and physical and performed a pertinent physical examination on my patient. No changes have occurred unless specified. Time Spent With Patient Time: Total time managing care of this patient today ____ minutes.
--- NOTE | 2024-02-16 09:34 | HO.ANESPROP2 ---
[facility] Active Problems Active Problems: All Active Problems Pre-op chest exam (Acute) Pulmonary embolism (Acute) Abnormal LFTs (Acute) Left-sided weakness (Acute) Shortness of breath (Acute) Cough (Acute) Chest pain (Acute) PTSD (post-traumatic stress disorder) (Acute) Depression with suicidal ideation (Acute) Dizziness (Acute) Ventral hernia (Acute) Flank hernia (Acute) Sacroiliac joint dysfunction of both sides (Acute) Abdominal pannus (Acute) Depression (Acute) Hypotension (Acute) Lower urinary tract symptoms (Acute) Complicated urinary tract infection (Acute) Osteoporosis screening (Acute) Chronic kidney disease, stage III (moderate) (Acute) Paresthesia (Acute) Recurrent urinary tract infection (Acute) Solitary kidney, acquired (Acute) Orthostatic dizziness (Acute) Symptomatic abdominal panniculus (Acute) Panniculitis (Acute) Bilateral leg weakness (Acute) Obesity (Acute) Overweight (BMI 25.0-29.9) (Acute) Urinary tract infection (Acute) Dysuria (Acute) Skin laxity (Acute) Painful sexual intercourse (Acute) Dyspareunia, female (Acute) Nephrolithiasis (Acute) Constipation (Acute) Colon cancer screening (Acute) Overweight (Acute) Sacroiliac joint pain (Acute) Left lumbar radiculopathy (Acute) Memory impairment (Acute) Renal cyst (Acute) Transaminitis (Acute) Elevated LFTs (Acute) Abdominal wall mass (Acute) Annual physical exam (Acute) Bilateral elbow joint pain (Acute) Hip pain, bilateral (Acute) Knee pain, bilateral (Acute) Arthralgia (Acute) UTI (urinary tract infection) (Acute) Post traumatic stress disorder (PTSD) (Acute) MDD (major depressive disorder), recurrent, severe, with psychosis (Acute) Encounter to discuss test results (Acute) Urinary frequency (Acute) Urinary incontinence (Acute) Excess skin (Acute) Renal calculus, right (Acute) MIGUEL (obstructive sleep apnea) (Acute) Obesity (BMI 30-39.9) (Acute) Renal cyst (Acute) Diverticulosis (Acute) Tubular adenoma (Acute) Spondylosis of lumbar spine (Acute) Sacroiliitis (Acute) Dizziness of unknown etiology (Acute) Chronic constipation (Acute) History of gastric bypass (Acute ~2008) Dyspareunia (Acute) Pyelonephritis (Acute) Ingrown toenail (Acute) Iron deficiency anemia (Acute) Major depression, recurrent (Acute) Anxiety (Acute) Insomnia (Acute) Tremor (Acute) Orthostatic hypotension (Acute) Incisional hernia without obstruction or gangrene (Acute) Avascular necrosis of femoral head (Acute) Bilateral carpal tunnel syndrome (Acute) Peroneal neuropathy (Acute) Lumbar degenerative disc disease (Acute) Vitamin D deficiency (Acute) GERD (gastroesophageal reflux disease) (Acute) Migraine (Acute) Hyperlipidemia (Acute) Past Medical History Medical History (Updated 02/12/24 @ 00:01 by Background Daemon) Chronic kidney disease, stage III (moderate) Obesity (BMI 30-39.9) Renal cyst Diverticulosis Tubular adenoma Asthma Spondylosis of lumbar spine Sacroiliitis Dizziness of unknown etiology Chronic constipation Hx of schizophrenia Panic attacks PTSD (post-traumatic stress disorder) Dyspareunia Pyelonephritis Ingrown toenail Iron deficiency anemia Major depression, recurrent Anxiety Insomnia Tremor Orthostatic hypotension Incisional hernia without obstruction or gangrene Avascular necrosis of femoral head Bilateral carpal tunnel syndrome Peroneal neuropathy Lumbar degenerative disc disease Vitamin D deficiency GERD (gastroesophageal reflux disease) Migraine Hyperlipidemia Family History Family History Father Liver cancer Mother Breast cancer Sister Lung cancer Other Mental health problem Family history of problems with anesthesia: No Surgical History Surgical History (Updated 02/12/24 @ 00:01 by Background Daemon) History of left nephrectomy (~1999) History of colonoscopy History of surgery Hx of cystoscopy History of bilateral breast reduction surgery History of hysterectomy History of cholecystectomy History of endoscopy (~06/2016) History of bladder repair surgery (~03/2015) S/P cystoscopy (~07/30/12) S/P panniculectomy History of hernia repair (~03/29/10) History of bladder surgery (~10/2009) History of gastric bypass (~2008) History of incisional hernia repair (~1999) Hx of umbilical hernia repair (~1999) H/O left nephrectomy S/P laparoscopic sleeve gastrectomy History of Problems with Anesthesia: No Social History Social History Household Members: Spouse and Family Housing: House Do you presently have visiting nurse or other home services: No Alcohol intake: never Comment: 1:1 Patient Tobacco Use Status: Never used Tobacco e-Cigarette/Vaping Use: Never Used Second Hand Smoke Exposure: No Advance Directives Date on File: 07/12/21 service: No Current occupational status: disabled Sexual orientation: Straight/Heterosexual Cognitive needs: No Hearing needs: No Vision needs: Yes Meds Allergies Allergy/AdvReac Type Severity Reaction Status Date / Time acetaminophen AdvReac Unknown Unknown Verified 01/22/24 09:01 atorvastatin AdvReac Severe elevated Uncoded 01/22/24 09:01 liver enzymes Active Medications: Current Medications Acetaminophen/Butalbital/Caffeine (Butalb/Acetamin/Caff 50/325/40 Tablet) 2 tab PO Q6H PRN PRN Reason: Migraine Headache Last Admin: 02/15/24 20:59 Dose: 2 tab Al Hydroxide/Mg Hydroxide (Magnesium Hydrox/Alum Hydrox 30 Ml Oral.Susp) 30 ml PO Q6H PRN PRN Reason: Heartburn/Nausea Albuterol Sulfate (Albuterol Sulfate 90 Mcg 8 Gm Inhaler) 2 puff INHALE RQ6H PRN PRN Reason: wheezing Apixaban (Apixaban 5 Mg Tablet) 5 mg PO BID [facility] Last Admin: 02/15/24 20:55 Dose: 5 mg Bisacodyl (Bisacodyl 5 Mg Tablet.) 10 mg PO BEDTIME [facility] Last Admin: 02/15/24 20:55 Dose: 10 mg Cariprazine (Cariprazine Hcl 1.5 Mg Capsule) 4.5 mg PO DAILY [facility] Last Admin: 02/15/24 08:53 Dose: 4.5 mg Cyanocobalamin (Cyanocobalamin (Vitamin B-12) 500 Mcg Tablet) 500 mcg PO DAILY [facility] Last Admin: 02/15/24 08:53 Dose: 500 mcg Diphenhydramine HCl (Diphenhydramine Hcl 25 Mg Capsule) 25 mg PO TID PRN PRN Reason: allergies Last Admin: 02/15/24 20:59 Dose: 25 mg Docusate Sodium (Docusate Sodium 100 Mg Capsule) 100 mg PO DAILY [facility] Last Admin: 02/15/24 08:53 Dose: 100 mg Ferrous Sulfate (Ferrous Sulfate 324 Mg Tablet.) 324 mg PO DAILY [facility] Last Admin: 02/15/24 08:53 Dose: 324 mg Gabapentin (Gabapentin 400 Mg Capsule) 800 mg PO TID [facility] Last Admin: 02/15/24 20:23 Dose: Not Given Hydrocortisone (Hydrocortisone 2.5 % Rectal Cr 30 Gm Tube) 1 appl DE BID [facility] Last Admin: 02/15/24 21:03 Dose: Not Given Hydroxyzine HCl (Hydroxyzine Hcl 25 Mg Tablet) 25 mg PO Q6H PRN PRN Reason: Anxiety Last Admin: 02/14/24 23:00 Dose: 25 mg Lorazepam (Lorazepam 1 Mg Tablet) 1 mg PO BID PRN PRN Reason: Anxiety Last Admin: 02/13/24 21:24 Dose: 1 mg Magnesium Hydroxide (Milk Of Magnesia 30 Ml Oral.Susp) 30 ml PO DAILY PRN PRN Reason: Constipation Meclizine HCl (Meclizine Hcl 25 Mg Tablet) 25 mg PO TID PRN PRN Reason: dizziness Melatonin (Melatonin 3 Mg Tablet) 9 mg PO BEDTIME PRN PRN Reason: Insomnia Last Admin: 02/15/24 20:59 Dose: 9 mg Midodrine (Midodrine Hcl 10 Mg Tablet) 10 mg PO TID@0900,1300,1800 [facility] Last Admin: 02/16/24 08:33 Dose: 10 mg Mirtazapine (Mirtazapine 15 Mg Tablet) 15 mg PO BEDTIME [facility] Last Admin: 02/15/24 20:55 Dose: 15 mg Naloxone HCl (Naloxone Hcl 0.4 Mg/Ml Vial) 0.04 mg IVPUSH Q5M PRN PRN Reason: Excessive sedation or RR < 8 Nicotine Polacrilex (Nicotine Polacrilex 2 Mg Gum) 4 mg BUCCAL Q2H PRN PRN Reason: Nicotine Cravings Pt Own (Rosuvastatin (5 Mg Tablet)) 5 mg PO DAILY [facility] Last Admin: 02/15/24 08:53 Dose: 5 mg Omeprazole (Omeprazole 20 Mg Capsule.Dr) 20 mg PO DAILY@0630 [facility] Last Admin: 02/16/24 06:56 Dose: 20 mg Risperidone (Risperidone 1 Mg Tablet) 1 mg PO BID PRN PRN Reason: AH Last Admin: 02/13/24 10:05 Dose: 1 mg Risperidone (Risperidone 2 Mg Tablet) 2 mg PO BID [facility] Last Admin: 02/15/24 20:55 Dose: 2 mg Topiramate (Topiramate 100 Mg Tablet) 100 mg PO DAILY [facility] Last Admin: 02/15/24 08:53 Dose: 100 mg Tramadol HCl (Tramadol Hcl 50 Mg Tablet) 100 mg PO Q8H PRN PRN Reason: severe pain Last Admin: 02/15/24 05:00 Dose: 100 mg Trazodone HCl (Trazodone Hcl 50 Mg Tablet) 50 mg PO BEDTIME MRX1 PRN PRN Reason: Insomnia Last Admin: 02/14/24 23:01 Dose: 50 mg Triamcinolone Acetonide (Triamcinolone Acet 0.1 % Cream 15 Gm Tube) 1 appl TOPICAL DAILY PRN PRN Reason: rash Vitamin D (Cholecalciferol (Vitamin D3) 25 Mcg Tablet) 25 mcg PO DAILY JYOTHI Last Admin: 02/15/24 08:53 Dose: 25 mcg Home Medications ?Medication ?Instructions ?Recorded ?Confirmed ?Last Taken ?Type lorazepam 1 mg tablet 1 mg PO BID PRN Anxiety 11/02/22 02/06/24 Unknown History potassium citrate 5 mEq (540 mg) 5 meq PO DAILY 06/13/23 02/06/24 01/21/24 History tablet,extended release melatonin 5 mg tablet 5 mg PO BEDTIME PRN Insomnia 07/14/23 02/06/24 Unknown History mirtazapine 15 mg tablet 15 mg PO BEDTIME 12/05/23 02/06/24 01/21/24 History naproxen 500 mg tablet 500 mg PO DAILY 12/05/23 02/06/24 01/21/24 History topiramate 100 mg tablet 100 mg PO DAILY 12/05/23 02/06/24 Unknown History albuterol sulfate 90 mcg/actuation 2 puff inhalation Q6H PRN wheezing 01/23/24 02/06/24 Unknown History aerosol inhaler (Ventolin HFA) diphenhydramine HCl 25 mg capsule 25 mg PO TID PRN allergies 01/23/24 02/06/24 Unknown History (Banophen) lurasidone 40 mg tablet 40 mg PO DAILY 01/23/24 02/06/24 01/21/24 History pantoprazole 40 mg tablet,delayed 40 mg PO DAILY@0630 01/23/24 02/06/24 01/21/24 History release Exam Height,Weight and Vital Signs: Weight 73.3 kg Last Vital Signs Temp 96.4 F L 02/16/24 08:52 Pulse 52 02/16/24 08:52 Resp 20 02/16/24 08:52 BP 114/63 02/16/24 08:52 Pulse Ox 99 02/16/24 08:52 O2 Del Method Room Air 02/16/24 08:52 O2 Flow Rate 2 02/14/24 08:20 Airway Mallampati Class: II TM Dist: >3cm Neck ROM: Full Heart: rrr Lungs: cta Assessment and Plan Assessment Anesthesia Assessment: Anesthesia Plan Discussed and Chart Reviewed Final Anesthetic Review Family History of Problems with Anesthesia: No History of Problems with Anesthesia: No NPO: Yes ASA Class: III Final Preanesthetic Review: No Changes in Pt Med Stat, Meds/Allgs Chart Reviewed and Consent Obtained/Reviewed Patient Risk: Intermediate Procedure Risk: Intermediate Anesthetic Plan Anesthetic Plan: GA Disposition: Standard PACU
--- NOTE | 2024-02-16 09:50 | HO.ECTPROC ---
ECT Procedure Note Diagnosis/Treatment Date of Service: 02/16/24 Diagnosis: Schizoaffective Disorder Previous ECT Date: 02/14/24 Current Treatment Number: 3 Treatment: Series Interval Clinical Notes: No significant complaints some s/e LANZA generally tolerating tx completed rul had shorter sz no toradol given since pt on eloquis Time: Total time managing care of this patient today ____ minutes. ECT Settings Device: THYMATRON DGx Electrode Placement: Right Unilateral Program/Pulse Width: 0.25 Energy Percent: 80 Seizure Duration By EEG (in seconds): 20 Medications Administration General Anesthetic: Etomidate (10) Muscle Relaxant: Succinylcholine (80) Airway Management Airway Management: Bag Mask Ventilation Treatment Recommendations Energy Percent: 100 Notes: make sure anti sz meds held nite prior avoid lorazepam nite prior
--- NOTE | 2024-02-16 10:23 | P.PNPSI_ITS ---
Subjective Subjective Date of Service: 02/16/24 Reason For Visit: Depression Interim History: Met with patient; discussed with team Less headache this time after eCT. Mood is again so-so which remains better; no AH which is 3 days now. Disccussed treatement, ECT, medications and pt wants to continue. Mental Status Exam Mental Status Exam Narrative: Pt is alert and oriented; behavior is cooperative, calm; dressed in casual pajamas with adequate grooming; mood is described as so-so. affect downcast but perhaps a little brighter; eye contact appropriate; Speech remains soft volume, slowed rate; normal prosody; psychomotor retardation present; thought process is goal oriented; Thought content is on symptoms, tx; otherwise pertinent to relevant topics and without any delusional content, paranoid ideations or grandiosity; no SI; no HI; No AH Patients insight and judgment improving Diagnostics Vital Signs (24Hr): Vital Signs - 24 hr 02/15/24 12:49 02/15/24 17:48 02/15/24 20:00 Temperature 97.6 F Pulse Rate 70 73 Respiratory Rate 16 Blood Pressure 109/57 L 110/56 L 96/64 Pulse Oximetry 98 Oxygen Delivery Method Room Air 02/15/24 23:21 02/16/24 08:29 02/16/24 08:52 Temperature 97.5 F 96.4 F L Pulse Rate 59 52 Respiratory Rate 16 16 20 Blood Pressure 94/55 L 114/63 Pulse Oximetry 99 99 Oxygen Delivery Method Room Air 02/16/24 09:52 02/16/24 09:55 02/16/24 10:00 Temperature 97.8 F Pulse Rate 81 64 61 Respiratory Rate 21 H 18 18 Blood Pressure 172/79 H 142/75 H 118/71 Pulse Oximetry 97 99 99 Oxygen Delivery Method Room Air Room Air Room Air 02/16/24 10:05 Temperature Pulse Rate 62 Respiratory Rate 18 Blood Pressure 126/71 Pulse Oximetry 99 Oxygen Delivery Method Room Air Medications Medications Current Medications Acetaminophen/Butalbital/Caffeine (Butalb/Acetamin/Caff 50/325/40 Tablet) 2 tab PO Q6H PRN PRN Reason: Migraine Headache Last Admin: 02/15/24 20:59 Dose: 2 tab Al Hydroxide/Mg Hydroxide (Magnesium Hydrox/Alum Hydrox 30 Ml Oral.Susp) 30 ml PO Q6H PRN PRN Reason: Heartburn/Nausea Albuterol Sulfate (Albuterol Sulfate 90 Mcg 8 Gm Inhaler) 2 puff INHALE RQ6H PRN PRN Reason: wheezing Apixaban (Apixaban 5 Mg Tablet) 5 mg PO BID [facility] Last Admin: 02/15/24 20:55 Dose: 5 mg Bisacodyl (Bisacodyl 5 Mg Tablet.) 10 mg PO BEDTIME [facility] Last Admin: 02/15/24 20:55 Dose: 10 mg Cariprazine (Cariprazine Hcl 1.5 Mg Capsule) 4.5 mg PO DAILY [facility] Last Admin: 02/15/24 08:53 Dose: 4.5 mg Cyanocobalamin (Cyanocobalamin (Vitamin B-12) 500 Mcg Tablet) 500 mcg PO DAILY [facility] Last Admin: 02/15/24 08:53 Dose: 500 mcg Diphenhydramine HCl (Diphenhydramine Hcl 25 Mg Capsule) 25 mg PO TID PRN PRN Reason: allergies Last Admin: 02/15/24 20:59 Dose: 25 mg Docusate Sodium (Docusate Sodium 100 Mg Capsule) 100 mg PO DAILY [facility] Last Admin: 02/15/24 08:53 Dose: 100 mg Ferrous Sulfate (Ferrous Sulfate 324 Mg Tablet.) 324 mg PO DAILY [facility] Last Admin: 02/15/24 08:53 Dose: 324 mg Gabapentin (Gabapentin 400 Mg Capsule) 800 mg PO TID [facility] Last Admin: 02/15/24 20:23 Dose: Not Given Hydrocortisone (Hydrocortisone 2.5 % Rectal Cr 30 Gm Tube) 1 appl RI BID [facility] Last Admin: 02/15/24 21:03 Dose: Not Given Hydroxyzine HCl (Hydroxyzine Hcl 25 Mg Tablet) 25 mg PO Q6H PRN PRN Reason: Anxiety Last Admin: 02/14/24 23:00 Dose: 25 mg Lactated Ringer's (Lr) 1,000 mls @ 50 mls/hr IVCONT .Q20H [facility] Lorazepam (Lorazepam 1 Mg Tablet) 1 mg PO BID PRN PRN Reason: Anxiety Last Admin: 02/13/24 21:24 Dose: 1 mg Magnesium Hydroxide (Milk Of Magnesia 30 Ml Oral.Susp) 30 ml PO DAILY PRN PRN Reason: Constipation Meclizine HCl (Meclizine Hcl 25 Mg Tablet) 25 mg PO TID PRN PRN Reason: dizziness Melatonin (Melatonin 3 Mg Tablet) 9 mg PO BEDTIME PRN PRN Reason: Insomnia Last Admin: 02/15/24 20:59 Dose: 9 mg Midodrine (Midodrine Hcl 10 Mg Tablet) 10 mg PO TID@0900,1300,1800 [facility] Last Admin: 02/16/24 08:33 Dose: 10 mg Mirtazapine (Mirtazapine 15 Mg Tablet) 15 mg PO BEDTIME [facility] Last Admin: 02/15/24 20:55 Dose: 15 mg Naloxone HCl (Naloxone Hcl 0.4 Mg/Ml Vial) 0.04 mg IVPUSH Q5M PRN PRN Reason: Excessive sedation or RR < 8 Nicotine Polacrilex (Nicotine Polacrilex 2 Mg Gum) 4 mg BUCCAL Q2H PRN PRN Reason: Nicotine Cravings Pt Own (Rosuvastatin (5 Mg Tablet)) 5 mg PO DAILY [facility] Last Admin: 02/15/24 08:53 Dose: 5 mg Omeprazole (Omeprazole 20 Mg Capsule.Dr) 20 mg PO DAILY@0630 [facility] Last Admin: 02/16/24 06:56 Dose: 20 mg Risperidone (Risperidone 1 Mg Tablet) 1 mg PO BID PRN PRN Reason: AH Last Admin: 02/13/24 10:05 Dose: 1 mg Risperidone (Risperidone 2 Mg Tablet) 2 mg PO BID [facility] Last Admin: 02/15/24 20:55 Dose: 2 mg Topiramate (Topiramate 100 Mg Tablet) 100 mg PO DAILY [facility] Last Admin: 02/15/24 08:53 Dose: 100 mg Tramadol HCl (Tramadol Hcl 50 Mg Tablet) 100 mg PO Q8H PRN PRN Reason: severe pain Last Admin: 02/15/24 05:00 Dose: 100 mg Trazodone HCl (Trazodone Hcl 50 Mg Tablet) 50 mg PO BEDTIME MRX1 PRN PRN Reason: Insomnia Last Admin: 02/14/24 23:01 Dose: 50 mg Triamcinolone Acetonide (Triamcinolone Acet 0.1 % Cream 15 Gm Tube) 1 appl TOPICAL DAILY PRN PRN Reason: rash Vitamin D (Cholecalciferol (Vitamin D3) 25 Mcg Tablet) 25 mcg PO DAILY [facility] Last Admin: 02/15/24 08:53 Dose: 25 mcg Allergies Allergies Allergy/AdvReac Type Severity Reaction Status Date / Time acetaminophen AdvReac Unknown Unknown Verified 01/22/24 09:01 atorvastatin AdvReac Severe elevated Uncoded 01/22/24 09:01 liver enzymes Assessment & Plan Assessment & Plan (1) MDD (major depressive disorder), recurrent, severe, with psychosis: Status: Acute Code(s): F33.3 - Major depressive disorder, recurrent, severe with psychotic symptoms (2) Post traumatic stress disorder (PTSD): Status: Acute Code(s): F43.10 - Post-traumatic stress disorder, unspecified (3) Pulmonary embolism: Qualifiers: Pulmonary embolism type: multiple subsegmental (without acute cor pulmonale) Qualified Code(s): I26.94 - Multiple subsegmental thrombotic pulmonary emboli without acute cor pulmonale Status: Acute Code(s): I26.99 - Other pulmonary embolism without acute cor pulmonale (4) MIGEUL (obstructive sleep apnea): Status: Acute Code(s): G47.33 - Obstructive sleep apnea (adult) (pediatric) (5) Chronic kidney disease, stage III (moderate): Qualifiers: Chronic kidney disease stage 3 subtype: stage 3a (GFR 45-59) Qualified Code(s): N18.31 - Chronic kidney disease, stage 3a Status: Acute Code(s): N18.30 - Chronic kidney disease, stage 3 unspecified Plan HPI: Patient is a 53-year-old female with history of MDD with psychotic features (r/o schizoaffective disorder, depressed type) PTSD, borderline traits, kidney cancer (one kidney). She first presented for admission for worsening depression and AH. Patient was feeling overall good enough until about 4 months ago. Without any obvious trigger, and despite continued adherence to medication regimen, she reports that her mood started to decline and AH (which is present independent of mood) became worse. Patient said she started having bad thoughts.. At which she became tearful and would not disclose them. She said her mood got worse and worse and voices told her to hurt herself; she started seeing shadow figures and having horrific nightmares where sometimes she can tell if she was awake or asleep but saw a ball of fire and things burning. AH worsened this past week and so patient self presented. She denies any history of manic type behaviors; ongoing PTSD symptoms. Patient does not remember history of med trials On M5, patient was started on Vraylar and ECT. She only received 2 ECT trials when she developed a pulmonary embolism; patient started on anticoagulation however ECT held. A few days later patient reported left-sided weakness which was evident on exam; she was transferred to medical floor, with head/neck CT/angiogram and then MRI; patient was diagnosed with complex migraine that can mimic a stroke; patient was stabilized and returned to the unit. There were some incidental findings which included thyroid nodules that medical team thought could be followed up as an outpatient. Now stabilized, patient returns to for continued treatment for depression. Patient reports she remains very depressed and continues to have AH which are very bothersome. Patient adamantly requests to restart ECT which she was hopeful would be helpful. Formulaton/clinical reasoning: Bench Scientist discussed case with patient's outpatient psychiatric provider Dr. Kathleen who has known patient for years. She reports that Patient has long history of depression, frequently severe, intermixed with PTSD symptoms, emotional reactivity; although patient endorses continue AH, Dr. Kathleen does not think necessarily an organic psychotic illness and only symptom is AH (no history of delusional thinking, no disorganized speech or behavior). Pt has had numerous medication trials with only partial response. Discussed treatment approaches and provider agrees that ECT trial is warranted; no benefit from Latuda thus far and although was only at 20 mg, agree to start Vraylar instead which maybe a little more robust in dealing with AH. Patient amenable to changing medications. [place]? only one kidney so hesitant. Also considerations are OCD/JAMEI regarding dx, although pt has AH (which IS independent of mood), she has no other psychotic symptoms HOSPITAL COURSE: 02/07 complaining of worsened command AH to kill self; tearful. Risperdal worked as PRN for few hours so she agreed to restart (failed in past). 1.continues on Vraylar 4.5mg daily: maybe helped with depression some, but AH remained 2.returned from Medical floor on Latuda (which was did not seem to help in past), but since so depressed and not sure if will get ECT, left it since monotherapy has not been effective (will leave for now, but likey dc) 3.Started on Risperdal 1mg TID since prn risperdal took away AH for a few hours 4. Currently on 3 antipsychotics but will likely dc some of them. -Regarding ECT, Discussed with Head Bellhop Captain Dr. Guthrie who reports pt does not need O2 and From a pulmonary standpoint, the patient is doing well, stable. She may proceed with anesthesia and ECT at this time as long as she can the anticoagulation without interruptions. -Discussed with Anesthesiologis Dr. Willett who agrees that pulm recs are sufficient to proceed with ECT and that pt can remain on anticoagulation dx, although pt has AH (which IS independent of mood), she has no other psychotic symptoms 02/09/24 Discussed with pt sx with interpetr hx chronic hills depression hx depression ptsd ? dissociative hills would taper latuda ect when available next few days if remains unchanged some aspects of sx are chronic with recent exacerbation pt has been able to mainsafety no sob noted 02/12 pt remains depressed but says Risperdal helps when she takes it; says this morning, AH command, upsetting but dissipated with scheduled and prn risperdal. Discussed ECT and pt wants to continue 02/13 Patient had ECT this morning and reports that she has a headache and asked for medication and was given another dose of Fioricet. She denies any AH today for which she is relieved. Discussed medication management and she agrees to increase Risperdal for now and wants to continue with ECT 02/14 Patient reports that her mood is so-so which is the best it has been since she got here. Also says no AH which makes 2 days now enroll. Patient discussed medications and ECT and wants to continue with both. Discussed how it is unclear if AH is resolving because of ECT or Risperdal but because she is doing better will continue with this medication for now -patient asked about pulmonary embolisms and contract technical writer provided education 02/15 no AH today; mood remains a little better; continue with tx plan PLAN: CV Q 15 minute checks ECT #4 pending 02/18 NPO Taper off Latuda Increased to Risperdal 2mg BID for continued AH (up from 1mg TID) continue vryaler 4.5mg for depression currently on Vraylar, Latuda and recently started on Risperdal. This is temporary and will continue to fine tune. Numerous failed Med trials: Haldol: got tremor abilify: wt gain risperidone Geodon Cymbalta, Effexor, Lexapro, Pristiq mirtazapine lamictal Medical comorbidities: 1. L-sided weakness: Resolved, transient: complex migraine; Neuro consulted, likely complex migraine rather than CVA/TIA. Sumatriptan contraindicated; use Fioricet prn; continue topiramate 2. transaminasemia - has been a recurrent problem in past; US with Dopplers + GI cosult pending; LFTs improving; 3. recently diagnosed PE 01/31 [R main PA + segmental branches of RLL] - was started on therapeutic enoxaparin; transitioned to apixaban 4.orthostatic hypotension, chronic; - continue midodrine 5. Incidental finding on CTA: possible thinning of semicircular canals bilaterally with question of dehiscence noted on CTA, incidental (ED contacted ENT) likely transient, follow up as outpt, no further workup at this time 6. Incidental finding on CTA: thyroid nodule, incidentally noted on CTA, 1.9 cm left; outpt f/u with thyroid US 7. IBS-C; bowel regimen, outpt GI f/u 8. asthma not in acute exac; prn albuterol 9. MIGUEL; CPAP at night Patient educated on: diagnosis, medication risk/benefits, ECT and medical condition Informed Consent: understands Reason for continued inpatient stay Substantial Risk for: rapid decompensation Time Spent With Patient Time: Total time managing care of this patient today ____ minutes.
[2024-02-16] MEDS: Cholecalciferol (Vitamin D3) 25 MCG TABLET PO (11:24)
[2024-02-16] MEDS: Butalb/Acetamin/Caff 50/325/40 TABLET 2 TAB PO ×2 (11:24→19:56)
[2024-02-16] MEDS: Topiramate 100 MG TABLET PO (11:24)
[2024-02-16] MEDS: Cyanocobalamin (Vitamin B-12) 500 MCG TABLET PO (11:25)
[2024-02-16] MEDS: risperiDONE 2 MG TABLET PO ×2 (11:25→21:41)
[2024-02-16] MEDS: Apixaban 5 MG TABLET PO ×2 (11:25→21:41)
[2024-02-16] MEDS: Docusate Sodium 100 MG CAPSULE PO (11:25)
[2024-02-16] MEDS: Ferrous Sulfate 324 MG TABLET.DR PO (11:25)
[2024-02-16] MEDS: Gabapentin 400 MG CAPSULE 800 MG PO ×3 (11:25→21:41)
[2024-02-16] MEDS: Cariprazine HCl 1.5 MG CAPSULE 4.5 MG PO (11:28)
[2024-02-16] MEDS: Hydrocortisone 2.5 % Rectal Cr 30 GM TUBE 1 APPL PR (11:29)
[2024-02-16] MEDS: ROSUVASTATIN 5 MG 5 EACH PO (11:29)
[2024-02-16] MEDS: Meclizine HCl 25 MG TABLET PO (13:13)
[2024-02-16] MEDS: bisacodyL 5 MG TABLET.DR 10 MG PO (21:41)
[2024-02-16] MEDS: Mirtazapine 15 MG TABLET PO (21:41)
[2024-02-16] MEDS: diphenhydrAMINE HCL 25 MG CAPSULE PO (21:41)
[2024-02-16] MEDS: Melatonin 3 MG TABLET 9 MG PO (21:41)
[2024-02-17] MEDS: Butalb/Acetamin/Caff 50/325/40 TABLET 2 TAB PO ×3 (05:53→21:04)
[2024-02-17] MEDS: Omeprazole 20 MG CAPSULE.DR PO (05:53)
[2024-02-17 08:00] VITALS: BP 105/59; PULSE 55; TEMP 36.8; O2SAT 98
--- NOTE | 2024-02-17 08:55 | HO.PSYCHPN ---
Subjective Subjective Date of Service: 02/17/24 Reason For Visit: Depression Interim History: Pt appears a bit brighter. On the phone, singing with headphones in bed, appears more interactive. No concerns about her plan of care today she reports. Next ECT 02/18. Medication Compliance: Yes Side effects from medications: No Review of Systems Medical Review of Systems: unchanged Review of Systems Review of Systems Yes all other systems are reviewed and are negative Mental Status Exam Mental Status Exam Patient Appearance: Fatigued Patient Orientation: Person, Place and Situation Level of Consciousness: Alert Patient Behavior: Appropriate Mood Description: Constricted Affect Description: Constricted Ability to Follow Directions: Good Speech Pattern: Spontaneous Speech Thought Content: positive for Circumstantial Judgement: Fair Diagnostics Vital Signs (24Hr): Vital Signs - 24 hr 02/16/24 09:52 02/16/24 09:55 02/16/24 10:00 Temperature 97.8 F Pulse Rate 81 64 61 Respiratory Rate 21 H 18 18 Blood Pressure 172/79 H 142/75 H 118/71 Pulse Oximetry 97 99 99 Oxygen Delivery Method Room Air Room Air Room Air 02/16/24 10:05 02/16/24 10:20 02/16/24 10:40 Temperature 98.2 F Pulse Rate 62 61 60 Respiratory Rate 18 18 16 Blood Pressure 126/71 121/64 133/75 Pulse Oximetry 99 98 99 Oxygen Delivery Method Room Air Room Air Room Air 02/16/24 10:40 02/16/24 13:08 02/16/24 17:37 Temperature 98.2 F Pulse Rate 60 Respiratory Rate 16 Blood Pressure 133/75 111/57 L 123/65 Pulse Oximetry 99 Oxygen Delivery Method 02/16/24 20:00 02/17/24 08:00 Temperature 98.1 F 98.2 F Pulse Rate 60 55 Respiratory Rate 16 Blood Pressure 107/63 105/59 L Pulse Oximetry 98 98 Oxygen Delivery Method Room Air Room Air Medications Medications Current Medications Acetaminophen/Butalbital/Caffeine (Butalb/Acetamin/Caff 50/325/40 Tablet) 2 tab PO Q6H PRN PRN Reason: Migraine Headache Last Admin: 02/17/24 05:53 Dose: 2 tab Al Hydroxide/Mg Hydroxide (Magnesium Hydrox/Alum Hydrox 30 Ml Oral.Susp) 30 ml PO Q6H PRN PRN Reason: Heartburn/Nausea Albuterol Sulfate (Albuterol Sulfate 90 Mcg 8 Gm Inhaler) 2 puff INHALE RQ6H PRN PRN Reason: wheezing Apixaban (Apixaban 5 Mg Tablet) 5 mg PO BID [facility] Last Admin: 02/16/24 21:41 Dose: 5 mg Bisacodyl (Bisacodyl 5 Mg Tablet.Dr) 10 mg PO BEDTIME [facility] Last Admin: 02/16/24 21:41 Dose: 10 mg Cariprazine (Cariprazine Hcl 1.5 Mg Capsule) 4.5 mg PO DAILY [facility] Last Admin: 02/16/24 11:28 Dose: 4.5 mg Cyanocobalamin (Cyanocobalamin (Vitamin B-12) 500 Mcg Tablet) 500 mcg PO DAILY [facility] Last Admin: 02/16/24 11:25 Dose: 500 mcg Diphenhydramine HCl (Diphenhydramine Hcl 25 Mg Capsule) 25 mg PO TID PRN PRN Reason: allergies Last Admin: 02/16/24 21:41 Dose: 25 mg Docusate Sodium (Docusate Sodium 100 Mg Capsule) 100 mg PO DAILY [facility] Last Admin: 02/16/24 11:25 Dose: 100 mg Ferrous Sulfate (Ferrous Sulfate 324 Mg Tablet.Dr) 324 mg PO DAILY [facility] Last Admin: 02/16/24 11:25 Dose: 324 mg Gabapentin (Gabapentin 400 Mg Capsule) 800 mg PO TID [facility] Last Admin: 02/16/24 21:41 Dose: 800 mg Hydrocortisone (Hydrocortisone 2.5 % Rectal Cr 30 Gm Tube) 1 appl [place] BID [facility] Last Admin: 02/16/24 21:13 Dose: Not Given Hydroxyzine HCl (Hydroxyzine Hcl 25 Mg Tablet) 25 mg PO Q6H PRN PRN Reason: Anxiety Last Admin: 02/14/24 23:00 Dose: 25 mg Lactated Ringer's (Lr) 1,000 mls @ 50 mls/hr IVCONT .Q20H [facility] Last Admin: 02/17/24 04:58 Dose: Not Given Lorazepam (Lorazepam 1 Mg Tablet) 1 mg PO BID PRN PRN Reason: Anxiety Last Admin: 02/13/24 21:24 Dose: 1 mg Magnesium Hydroxide (Milk Of Magnesia 30 Ml Oral.Susp) 30 ml PO DAILY PRN PRN Reason: Constipation Meclizine HCl (Meclizine Hcl 25 Mg Tablet) 25 mg PO TID PRN PRN Reason: dizziness Last Admin: 02/16/24 13:13 Dose: 25 mg Melatonin (Melatonin 3 Mg Tablet) 9 mg PO BEDTIME PRN PRN Reason: Insomnia Last Admin: 02/16/24 21:41 Dose: 9 mg Midodrine (Midodrine Hcl 10 Mg Tablet) 10 mg PO TID@0900,1300,1800 [facility] Last Admin: 02/16/24 17:37 Dose: 10 mg Mirtazapine (Mirtazapine 15 Mg Tablet) 15 mg PO BEDTIME [facility] Last Admin: 02/16/24 21:41 Dose: 15 mg Naloxone HCl (Naloxone Hcl 0.4 Mg/Ml Vial) 0.04 mg IVPUSH Q5M PRN PRN Reason: Excessive sedation or RR < 8 Nicotine Polacrilex (Nicotine Polacrilex 2 Mg Gum) 4 mg BUCCAL Q2H PRN PRN Reason: Nicotine Cravings Pt Own (Rosuvastatin (5 Mg Tablet)) 5 mg PO DAILY [facility] Last Admin: 02/16/24 11:29 Dose: 5 mg Omeprazole (Omeprazole 20 Mg Capsule.Dr) 20 mg PO DAILY@0630 [facility] Last Admin: 02/17/24 05:53 Dose: 20 mg Risperidone (Risperidone 1 Mg Tablet) 1 mg PO BID PRN PRN Reason: AH Last Admin: 02/13/24 10:05 Dose: 1 mg Risperidone (Risperidone 2 Mg Tablet) 2 mg PO BID [facility] Last Admin: 02/16/24 21:41 Dose: 2 mg Topiramate (Topiramate 100 Mg Tablet) 100 mg PO DAILY [facility] Last Admin: 02/16/24 11:24 Dose: 100 mg Tramadol HCl (Tramadol Hcl 50 Mg Tablet) 100 mg PO Q8H PRN PRN Reason: severe pain Last Admin: 02/15/24 05:00 Dose: 100 mg Trazodone HCl (Trazodone Hcl 50 Mg Tablet) 50 mg PO BEDTIME MRX1 PRN PRN Reason: Insomnia Last Admin: 02/14/24 23:01 Dose: 50 mg Triamcinolone Acetonide (Triamcinolone Acet 0.1 % Cream 15 Gm Tube) 1 appl TOPICAL DAILY PRN PRN Reason: rash Vitamin D (Cholecalciferol (Vitamin D3) 25 Mcg Tablet) 25 mcg PO DAILY [facility] Last Admin: 02/16/24 11:24 Dose: 25 mcg Allergies Allergies Allergy/AdvReac Type Severity Reaction Status Date / Time acetaminophen AdvReac Unknown Unknown Verified 01/22/24 09:01 atorvastatin AdvReac Severe elevated Uncoded 01/22/24 09:01 liver enzymes Assessment & Plan Assessment & Plan (1) MDD (major depressive disorder), recurrent, severe, with psychosis: Status: Acute Code(s): F33.3 - Major depressive disorder, recurrent, severe with psychotic symptoms (2) Post traumatic stress disorder (PTSD): Status: Acute Code(s): F43.10 - Post-traumatic stress disorder, unspecified (3) Pulmonary embolism: Qualifiers: Pulmonary embolism type: multiple subsegmental (without acute cor pulmonale) Qualified Code(s): I26.94 - Multiple subsegmental thrombotic pulmonary emboli without acute cor pulmonale Status: Acute Code(s): I26.99 - Other pulmonary embolism without acute cor pulmonale (4) MIGUEL (obstructive sleep apnea): Status: Acute Code(s): G47.33 - Obstructive sleep apnea (adult) (pediatric) (5) Chronic kidney disease, stage III (moderate): Qualifiers: Chronic kidney disease stage 3 subtype: stage 3a (GFR 45-59) Qualified Code(s): N18.31 - Chronic kidney disease, stage 3a Status: Acute Code(s): N18.30 - Chronic kidney disease, stage 3 unspecified Plan HPI: Patient is a 53-year-old female with history of MDD with psychotic features (r/o schizoaffective disorder, depressed type) PTSD, borderline traits, kidney cancer (one kidney). She first presented for admission for worsening depression and AH. Patient was feeling overall good enough until about 4 months ago. Without any obvious trigger, and despite continued adherence to medication regimen, she reports that her mood started to decline and AH (which is present independent of mood) became worse. Patient said she started having bad thoughts.. At which she became tearful and would not disclose them. She said her mood got worse and worse and voices told her to hurt herself; she started seeing shadow figures and having horrific nightmares where sometimes she can tell if she was awake or asleep but saw a ball of fire and things burning. AH worsened this past week and so patient self presented. She denies any history of manic type behaviors; ongoing PTSD symptoms. Patient does not remember history of med trials On M5, patient was started on Vraylar and ECT. She only received 2 ECT trials when she developed a pulmonary embolism; patient started on anticoagulation however ECT held. A few days later patient reported left-sided weakness which was evident on exam; she was transferred to medical floor, with head/neck CT/angiogram and then MRI; patient was diagnosed with complex migraine that can mimic a stroke; patient was stabilized and returned to the unit. There were some incidental findings which included thyroid nodules that medical team thought could be followed up as an outpatient. Now stabilized, patient returns to for continued treatment for depression. Patient reports she remains very depressed and continues to have AH which are very bothersome. Patient adamantly requests to restart ECT which she was hopeful would be helpful. Formulaton/clinical reasoning: Unified Communications Architect discussed case with patient's outpatient psychiatric provider Dr. Kathleen who has known patient for years. She reports that Patient has long history of depression, frequently severe, intermixed with PTSD symptoms, emotional reactivity; although patient endorses continue AH, Dr. Kathleen does not think necessarily an organic psychotic illness and only symptom is AH (no history of delusional thinking, no disorganized speech or behavior). Pt has had numerous medication trials with only partial response. Discussed treatment approaches and provider agrees that ECT trial is warranted; no benefit from Latuda thus far and although was only at 20 mg, agree to start Vraylar instead which maybe a little more robust in dealing with AH. Patient amenable to changing medications. [place]? only one kidney so hesitant. Also considerations are OCD/JAMIE regarding dx, although pt has AH (which IS independent of mood), she has no other psychotic symptoms HOSPITAL COURSE: 02/07 complaining of worsened command AH to kill self; tearful. Risperdal worked as PRN for few hours so she agreed to restart (failed in past). 1.continues on Vraylar 4.5mg daily: maybe helped with depression some, but AH remained 2.returned from Medical floor on Latuda (which was did not seem to help in past), but since so depressed and not sure if will get ECT, left it since monotherapy has not been effective (will leave for now, but likey dc) 3.Started on Risperdal 1mg TID since prn risperdal took away AH for a few hours 4. Currently on 3 antipsychotics but will likely dc some of them. -Regarding ECT, Discussed with Gamemaster Dr. Guthrie who reports pt does not need O2 and From a pulmonary standpoint, the patient is doing well, stable. She may proceed with anesthesia and ECT at this time as long as she can the anticoagulation without interruptions. -Discussed with Anesthesiologis Dr. Willett who agrees that pulm recs are sufficient to proceed with ECT and that pt can remain on anticoagulation dx, although pt has AH (which IS independent of mood), she has no other psychotic symptoms 02/09/24 Discussed with pt sx with interpetr hx chronic hills depression hx depression ptsd ? dissociative hills would taper latuda ect when available next few days if remains unchanged some aspects of sx are chronic with recent exacerbation pt has been able to mainsafety no sob noted 02/12 pt remains depressed but says Risperdal helps when she takes it; says this morning, AH command, upsetting but dissipated with scheduled and prn risperdal. Discussed ECT and pt wants to continue 02/13 Patient had ECT this morning and reports that she has a headache and asked for medication and was given another dose of Fioricet. She denies any AH today for which she is relieved. Discussed medication management and she agrees to increase Risperdal for now and wants to continue with ECT 02/14 Patient reports that her mood is so-so which is the best it has been since she got here. Also says no AH which makes 2 days now enroll. Patient discussed medications and ECT and wants to continue with both. Discussed how it is unclear if AH is resolving because of ECT or Risperdal but because she is doing better will continue with this medication for now -patient asked about pulmonary embolisms and policy writer sales provided education 02/16: Continue plan of care PLAN: CV Q 15 minute checks ECT #3 pending 02/15 NPO Taper off Latuda Increased to Risperdal 2mg BID for continued AH (up from 1mg TID) continue vryaler 4.5mg for depression currently on Vraylar, Latuda and recently started on Risperdal. This is temporary and will continue to fine tune. Numerous failed Med trials: Haldol: got tremor abilify: wt gain risperidone Geodon Cymbalta, Effexor, Lexapro, Pristiq mirtazapine lamictal Medical comorbidities: 1. L-sided weakness: Resolved, transient: complex migraine; Neuro consulted, likely complex migraine rather than CVA/TIA. Sumatriptan contraindicated; use Fioricet prn; continue topiramate 2. transaminasemia - has been a recurrent problem in past; US with Dopplers + GI cosult pending; LFTs improving; 3. recently diagnosed PE 01/31 [R main PA + segmental branches of RLL] - was started on therapeutic enoxaparin; transitioned to apixaban 4.orthostatic hypotension, chronic; - continue midodrine 5. Incidental finding on CTA: possible thinning of semicircular canals bilaterally with question of dehiscence noted on CTA, incidental (ED contacted ENT) likely transient, follow up as outpt, no further workup at this time 6. Incidental finding on CTA: thyroid nodule, incidentally noted on CTA, 1.9 cm left; outpt f/u with thyroid US 7. IBS-C; bowel regimen, outpt GI f/u 8. asthma not in acute exac; prn albuterol 9. MIGUEL; CPAP at night Reason for continued inpatient stay Substantial Risk for: rapid decompensation Time Spent With Patient Time: Total time managing care of this patient today ____ minutes.
[2024-02-17] MEDS: Cyanocobalamin (Vitamin B-12) 500 MCG TABLET PO (09:46)
[2024-02-17] MEDS: Cariprazine HCl 1.5 MG CAPSULE 4.5 MG PO (09:46)
[2024-02-17] MEDS: Topiramate 100 MG TABLET PO (09:47)
[2024-02-17] MEDS: Cholecalciferol (Vitamin D3) 25 MCG TABLET PO (09:47)
[2024-02-17] MEDS: Ferrous Sulfate 324 MG TABLET.DR PO (09:47)
[2024-02-17] MEDS: Docusate Sodium 100 MG CAPSULE PO (09:47)
[2024-02-17] MEDS: Apixaban 5 MG TABLET PO ×2 (09:48→20:55)
[2024-02-17] MEDS: Gabapentin 400 MG CAPSULE 800 MG PO ×3 (09:48→20:55)
[2024-02-17] MEDS: risperiDONE 2 MG TABLET PO ×2 (09:48→20:56)
[2024-02-17] MEDS: ROSUVASTATIN 5 MG 5 EACH PO (10:18)
[2024-02-17] MEDS: Midodrine HCl 10 MG TABLET PO ×3 (10:18→18:59)
[2024-02-17 14:54] VITALS: BP 116/57
[2024-02-17 20:00] VITALS: BP 127/73; PULSE 58; RESP 16; TEMP 36.4; O2SAT 99
[2024-02-17] MEDS: Mirtazapine 15 MG TABLET PO (20:55)
[2024-02-17] MEDS: bisacodyL 5 MG TABLET.DR 10 MG PO (20:56)
[2024-02-17] MEDS: Melatonin 3 MG TABLET 9 MG PO (20:56)
[2024-02-17] MEDS: diphenhydrAMINE HCL 25 MG CAPSULE PO (20:56)
[2024-02-18] MEDS: traMADoL HCL 50 MG TABLET 100 MG PO (03:46)
[2024-02-18] MEDS: Omeprazole 20 MG CAPSULE.DR PO (06:45)
[2024-02-18 08:00] VITALS: BP 91/59; PULSE 60; RESP 14; TEMP 36.6; O2SAT 95
[2024-02-18] MEDS: ROSUVASTATIN 5 MG 5 EACH PO (08:37)
[2024-02-18] MEDS: Gabapentin 400 MG CAPSULE 800 MG PO ×2 (08:38→15:26)
[2024-02-18] MEDS: Cholecalciferol (Vitamin D3) 25 MCG TABLET PO (08:38)
[2024-02-18] MEDS: Midodrine HCl 10 MG TABLET PO ×3 (08:38→17:49)
[2024-02-18] MEDS: Apixaban 5 MG TABLET PO ×2 (08:39→20:22)
[2024-02-18] MEDS: Cyanocobalamin (Vitamin B-12) 500 MCG TABLET PO (08:39)
[2024-02-18] MEDS: risperiDONE 2 MG TABLET PO ×2 (08:39→20:24)
[2024-02-18] MEDS: Topiramate 100 MG TABLET PO (08:40)
[2024-02-18] MEDS: Cariprazine HCl 3 MG CAPSULE PO (08:40)
[2024-02-18] MEDS: Cariprazine HCl 1.5 MG CAPSULE PO (08:40)
[2024-02-18] MEDS: Docusate Sodium 100 MG CAPSULE PO (08:41)
[2024-02-18] MEDS: Ferrous Sulfate 324 MG TABLET.DR PO (08:41)
[2024-02-18] MEDS: Butalb/Acetamin/Caff 50/325/40 TABLET 2 TAB PO ×2 (09:00→20:30)
--- NOTE | 2024-02-18 09:02 | HO.PSYCHPN ---
Subjective Subjective Date of Service: 02/18/24 Reason For Visit: Depression Subjective Notes: Conditional Voluntary Interim History: Reports to team UTI sx for 72 hours with pain and urgency q 1-3 hours. Urine culture ordered. Pt using fiorcet for migraine. NPO for ECT on 02/18. Spending most of her time on the telephone or in bed today. Interactive when approached. Medication Compliance: Yes Side effects from medications: No Attending Groups: No Review of Systems as noted above Review of Systems Review of Systems UTI sx Mental Status Exam Mental Status Exam Patient Appearance: Fatigued Patient Orientation: Person, Place and Situation Level of Consciousness: Alert Patient Behavior: Appropriate Mood Description: Constricted Affect Description: Constricted Ability to Follow Directions: Good Speech Pattern: Spontaneous Speech Thought Content: positive for Circumstantial Judgement: Fair Diagnostics Vital Signs (24Hr): Vital Signs - 24 hr 02/17/24 14:54 02/17/24 20:00 Temperature 97.5 F Pulse Rate 58 Respiratory Rate 16 Blood Pressure 116/57 L 127/73 Pulse Oximetry 99 Oxygen Delivery Method Room Air Medications Medications Current Medications Acetaminophen/Butalbital/Caffeine (Butalb/Acetamin/Caff 50/325/40 Tablet) 2 tab PO Q6H PRN PRN Reason: Migraine Headache Last Admin: 02/18/24 09:00 Dose: 2 tab Al Hydroxide/Mg Hydroxide (Magnesium Hydrox/Alum Hydrox 30 Ml Oral.Susp) 30 ml PO Q6H PRN PRN Reason: Heartburn/Nausea Albuterol Sulfate (Albuterol Sulfate 90 Mcg 8 Gm Inhaler) 2 puff INHALE RQ6H PRN PRN Reason: wheezing Apixaban (Apixaban 5 Mg Tablet) 5 mg PO BID [facility] Last Admin: 02/18/24 08:39 Dose: 5 mg Bisacodyl (Bisacodyl 5 Mg Tablet.Dr) 10 mg PO BEDTIME [facility] Last Admin: 02/17/24 20:56 Dose: 10 mg Cariprazine (Cariprazine Hcl 1.5 Mg Capsule) 1.5 mg PO DAILY [facility] Last Admin: 02/18/24 08:40 Dose: 1.5 mg Cariprazine (Cariprazine Hcl 3 Mg Capsule) 3 mg PO DAILY [facility] Last Admin: 02/18/24 08:40 Dose: 3 mg Cyanocobalamin (Cyanocobalamin (Vitamin B-12) 500 Mcg Tablet) 500 mcg PO DAILY [facility] Last Admin: 02/18/24 08:39 Dose: 500 mcg Diphenhydramine HCl (Diphenhydramine Hcl 25 Mg Capsule) 25 mg PO TID PRN PRN Reason: allergies Last Admin: 02/17/24 20:56 Dose: 25 mg Docusate Sodium (Docusate Sodium 100 Mg Capsule) 100 mg PO DAILY [facility] Last Admin: 02/18/24 08:41 Dose: 100 mg Ferrous Sulfate (Ferrous Sulfate 324 Mg Tablet.Dr) 324 mg PO DAILY [facility] Last Admin: 02/18/24 08:41 Dose: 324 mg Gabapentin (Gabapentin 400 Mg Capsule) 800 mg PO TID [facility] Last Admin: 02/18/24 08:38 Dose: 800 mg Hydrocortisone (Hydrocortisone 2.5 % Rectal Cr 30 Gm Tube) 1 appl FL BID [facility] Last Admin: 02/18/24 08:44 Dose: Not Given Hydroxyzine HCl (Hydroxyzine Hcl 25 Mg Tablet) 25 mg PO Q6H PRN PRN Reason: Anxiety Last Admin: 02/14/24 23:00 Dose: 25 mg Lactated Ringer's (Lr) 1,000 mls @ 50 mls/hr IVCONT .Q20H [facility] Last Admin: 02/18/24 02:56 Dose: Not Given Lorazepam (Lorazepam 1 Mg Tablet) 1 mg PO BID PRN PRN Reason: Anxiety Last Admin: 02/13/24 21:24 Dose: 1 mg Magnesium Hydroxide (Milk Of Magnesia 30 Ml Oral.Susp) 30 ml PO DAILY PRN PRN Reason: Constipation Meclizine HCl (Meclizine Hcl 25 Mg Tablet) 25 mg PO TID PRN PRN Reason: dizziness Last Admin: 02/16/24 13:13 Dose: 25 mg Melatonin (Melatonin 3 Mg Tablet) 9 mg PO BEDTIME PRN PRN Reason: Insomnia Last Admin: 02/17/24 20:56 Dose: 9 mg Midodrine (Midodrine Hcl 10 Mg Tablet) 10 mg PO TID@0900,1300,1800 [facility] Last Admin: 02/18/24 08:38 Dose: 10 mg Mirtazapine (Mirtazapine 15 Mg Tablet) 15 mg PO BEDTIME [facility] Last Admin: 02/17/24 20:55 Dose: 15 mg Naloxone HCl (Naloxone Hcl 0.4 Mg/Ml Vial) 0.04 mg IVPUSH Q5M PRN PRN Reason: Excessive sedation or RR < 8 Nicotine Polacrilex (Nicotine Polacrilex 2 Mg Gum) 4 mg BUCCAL Q2H PRN PRN Reason: Nicotine Cravings Pt Own (Rosuvastatin (5 Mg Tablet)) 5 mg PO DAILY [facility] Last Admin: 02/18/24 08:37 Dose: 5 mg Omeprazole (Omeprazole 20 Mg Capsule.Dr) 20 mg PO DAILY@0630 [facility] Last Admin: 02/18/24 06:45 Dose: 20 mg Risperidone (Risperidone 1 Mg Tablet) 1 mg PO BID PRN PRN Reason: AH Last Admin: 02/13/24 10:05 Dose: 1 mg Risperidone (Risperidone 2 Mg Tablet) 2 mg PO BID [facility] Last Admin: 02/18/24 08:39 Dose: 2 mg Topiramate (Topiramate 100 Mg Tablet) 100 mg PO DAILY [facility] Last Admin: 02/18/24 08:40 Dose: 100 mg Tramadol HCl (Tramadol Hcl 50 Mg Tablet) 100 mg PO Q8H PRN PRN Reason: severe pain Last Admin: 02/18/24 03:46 Dose: 100 mg Trazodone HCl (Trazodone Hcl 50 Mg Tablet) 50 mg PO BEDTIME MRX1 PRN PRN Reason: Insomnia Last Admin: 02/14/24 23:01 Dose: 50 mg Triamcinolone Acetonide (Triamcinolone Acet 0.1 % Cream 15 Gm Tube) 1 appl TOPICAL DAILY PRN PRN Reason: rash Vitamin D (Cholecalciferol (Vitamin D3) 25 Mcg Tablet) 25 mcg PO DAILY [facility] Last Admin: 02/18/24 08:38 Dose: 25 mcg Allergies Allergies Allergy/AdvReac Type Severity Reaction Status Date / Time acetaminophen AdvReac Unknown Unknown Verified 01/22/24 09:01 atorvastatin AdvReac Severe elevated Uncoded 01/22/24 09:01 liver enzymes Assessment & Plan Assessment & Plan (1) MDD (major depressive disorder), recurrent, severe, with psychosis: Status: Acute Code(s): F33.3 - Major depressive disorder, recurrent, severe with psychotic symptoms (2) Post traumatic stress disorder (PTSD): Status: Acute Code(s): F43.10 - Post-traumatic stress disorder, unspecified (3) Pulmonary embolism: Qualifiers: Pulmonary embolism type: multiple subsegmental (without acute cor pulmonale) Qualified Code(s): I26.94 - Multiple subsegmental thrombotic pulmonary emboli without acute cor pulmonale Status: Acute Code(s): I26.99 - Other pulmonary embolism without acute cor pulmonale (4) MIGUEL (obstructive sleep apnea): Status: Acute Code(s): G47.33 - Obstructive sleep apnea (adult) (pediatric) (5) Chronic kidney disease, stage III (moderate): Qualifiers: Chronic kidney disease stage 3 subtype: stage 3a (GFR 45-59) Qualified Code(s): N18.31 - Chronic kidney disease, stage 3a Status: Acute Code(s): N18.30 - Chronic kidney disease, stage 3 unspecified Plan HPI: Patient is a 53-year-old female with history of MDD with psychotic features (r/o schizoaffective disorder, depressed type) PTSD, borderline traits, kidney cancer (one kidney). She first presented for admission for worsening depression and AH. Patient was feeling overall good enough until about 4 months ago. Without any obvious trigger, and despite continued adherence to medication regimen, she reports that her mood started to decline and AH (which is present independent of mood) became worse. Patient said she started having bad thoughts.. At which she became tearful and would not disclose them. She said her mood got worse and worse and voices told her to hurt herself; she started seeing shadow figures and having horrific nightmares where sometimes she can tell if she was awake or asleep but saw a ball of fire and things burning. AH worsened this past week and so patient self presented. She denies any history of manic type behaviors; ongoing PTSD symptoms. Patient does not remember history of med trials On M5, patient was started on Vraylar and ECT. She only received 2 ECT trials when she developed a pulmonary embolism; patient started on anticoagulation however ECT held. A few days later patient reported left-sided weakness which was evident on exam; she was transferred to medical floor, with head/neck CT/angiogram and then MRI; patient was diagnosed with complex migraine that can mimic a stroke; patient was stabilized and returned to the unit. There were some incidental findings which included thyroid nodules that medical team thought could be followed up as an outpatient. Now stabilized, patient returns to for continued treatment for depression. Patient reports she remains very depressed and continues to have AH which are very bothersome. Patient adamantly requests to restart ECT which she was hopeful would be helpful. Formulaton/clinical reasoning: Contact Clerk discussed case with patient's outpatient psychiatric provider Dr. Kathleen who has known patient for years. She reports that Patient has long history of depression, frequently severe, intermixed with PTSD symptoms, emotional reactivity; although patient endorses continue AH, Dr. Kathleen does not think necessarily an organic psychotic illness and only symptom is AH (no history of delusional thinking, no disorganized speech or behavior). Pt has had numerous medication trials with only partial response. Discussed treatment approaches and provider agrees that ECT trial is warranted; no benefit from Latuda thus far and although was only at 20 mg, agree to start Vraylar instead which maybe a little more robust in dealing with AH. Patient amenable to changing medications. Beltrami? only one kidney so hesitant. Also considerations are OCD/JAMIE regarding dx, although pt has AH (which IS independent of mood), she has no other psychotic symptoms HOSPITAL COURSE: 02/07 complaining of worsened command AH to kill self; tearful. Risperdal worked as PRN for few hours so she agreed to restart (failed in past). 1.continues on Vraylar 4.5mg daily: maybe helped with depression some, but AH remained 2.returned from Medical floor on Latuda (which was did not seem to help in past), but since so depressed and not sure if will get ECT, left it since monotherapy has not been effective (will leave for now, but likey dc) 3.Started on Risperdal 1mg TID since prn risperdal took away AH for a few hours 4. Currently on 3 antipsychotics but will likely dc some of them. -Regarding ECT, Discussed with Stone Crusher Operator Dr. Guthrie who reports pt does not need O2 and From a pulmonary standpoint, the patient is doing well, stable. She may proceed with anesthesia and ECT at this time as long as she can the anticoagulation without interruptions. -Discussed with Anesthesiologis Dr. Willett who agrees that pulm recs are sufficient to proceed with ECT and that pt can remain on anticoagulation dx, although pt has AH (which IS independent of mood), she has no other psychotic symptoms 02/09/24 Discussed with pt sx with interpetr hx chronic hills depression hx depression ptsd ? dissociative hills would taper latuda ect when available next few days if remains unchanged some aspects of sx are chronic with recent exacerbation pt has been able to mainsafety no sob noted 02/12 pt remains depressed but says Risperdal helps when she takes it; says this morning, AH command, upsetting but dissipated with scheduled and prn risperdal. Discussed ECT and pt wants to continue 02/13 Patient had ECT this morning and reports that she has a headache and asked for medication and was given another dose of Fioricet. She denies any AH today for which she is relieved. Discussed medication management and she agrees to increase Risperdal for now and wants to continue with ECT 02/14 Patient reports that her mood is so-so which is the best it has been since she got here. Also says no AH which makes 2 days now enroll. Patient discussed medications and ECT and wants to continue with both. Discussed how it is unclear if AH is resolving because of ECT or Risperdal but because she is doing better will continue with this medication for now -patient asked about pulmonary embolisms and consumer loan underwriter provided education 02/16: Continue plan of care 02/17: Continue plan of care Urine culture pending. PLAN: CV Q 15 minute checks ECT #3 pending 02/15 NPO Taper off Latuda Increased to Risperdal 2mg BID for continued AH (up from 1mg TID) continue vryaler 4.5mg for depression currently on Vraylar, Latuda and recently started on Risperdal. This is temporary and will continue to fine tune. Numerous failed Med trials: Haldol: got tremor abilify: wt gain risperidone Geodon Cymbalta, Effexor, Lexapro, Pristiq mirtazapine lamictal Medical comorbidities: 1. L-sided weakness: Resolved, transient: complex migraine; Neuro consulted, likely complex migraine rather than CVA/TIA. Sumatriptan contraindicated; use Fioricet prn; continue topiramate 2. transaminasemia - has been a recurrent problem in past; US with Dopplers + GI cosult pending; LFTs improving; 3. recently diagnosed PE 01/31 [R main PA + segmental branches of RLL] - was started on therapeutic enoxaparin; transitioned to apixaban 4.orthostatic hypotension, chronic; - continue midodrine 5. Incidental finding on CTA: possible thinning of semicircular canals bilaterally with question of dehiscence noted on CTA, incidental (ED contacted ENT) likely transient, follow up as outpt, no further workup at this time 6. Incidental finding on CTA: thyroid nodule, incidentally noted on CTA, 1.9 cm left; outpt f/u with thyroid US 7. IBS-C; bowel regimen, outpt GI f/u 8. asthma not in acute exac; prn albuterol 9. MIGUEL; CPAP at night Informed Consent: understands Reason for continued inpatient stay Substantial Risk for: rapid decompensation and med/psych decompensation Time Spent With Patient Time: Total time managing care of this patient today ____ minutes.
[2024-02-18 12:19] VITALS: BP 106/61
[2024-02-18 17:49] VITALS: BP 129/74
[2024-02-18 20:00] VITALS: BP 106/57; PULSE 85; TEMP 36.4; O2SAT 98
[2024-02-18] MEDS: Melatonin 3 MG TABLET 9 MG PO (20:22)
[2024-02-18] MEDS: diphenhydrAMINE HCL 25 MG CAPSULE PO (20:23)
[2024-02-18] MEDS: Mirtazapine 15 MG TABLET PO (20:23)
[2024-02-18] MEDS: bisacodyL 5 MG TABLET.DR 10 MG PO (20:25)
[2024-02-19] VITALS (11 sets, daily range): BP systolic 104–124; BP diastolic 53–87; PULSE 62–81; RESP 14–18; TEMP 36.1–36.4; O2SAT 96–100; BMI 28.6
--- NOTE | 2024-02-19 09:34 | HO.PSYCHPN ---
Subjective Subjective Date of Service: 02/19/24 Reason For Visit: Depression Interim History: Met with patient; discussed with team Patient remains depressed; she has a post ECT headache. Patient remains with significant psychomotor retardation. Wants to continue with treatment Mental Status Exam Mental Status Exam Narrative: Pt is alert and oriented; behavior is cooperative, calm; dressed in casual pajamas with adequate grooming; mood is described as depressed affect downcast; eye contact avoidant; Speech remains soft volume, slowed rate; normal prosody; psychomotor retardation present; thought process is goal oriented; Thought content is on symptoms, tx; otherwise pertinent to relevant topics and without any delusional content, paranoid ideations or grandiosity; no SI; no HI; No AH Patients insight and judgment improving Diagnostics Vital Signs (24Hr): Vital Signs - 24 hr 02/18/24 12:19 02/18/24 17:49 02/18/24 20:00 Temperature 97.5 F Pulse Rate 85 Respiratory Rate Blood Pressure 106/61 129/74 106/57 L Pulse Oximetry 98 Oxygen Delivery Method Room Air 02/19/24 00:00 Temperature Pulse Rate Respiratory Rate 14 Blood Pressure Pulse Oximetry Oxygen Delivery Method Medications Medications Current Medications Acetaminophen/Butalbital/Caffeine (Butalb/Acetamin/Caff 50/325/40 Tablet) 2 tab PO Q6H PRN PRN Reason: Migraine Headache Last Admin: 02/18/24 20:30 Dose: 2 tab Al Hydroxide/Mg Hydroxide (Magnesium Hydrox/Alum Hydrox 30 Ml Oral.Susp) 30 ml PO Q6H PRN PRN Reason: Heartburn/Nausea Albuterol Sulfate (Albuterol Sulfate 90 Mcg 8 Gm Inhaler) 2 puff INHALE RQ6H PRN PRN Reason: wheezing Apixaban (Apixaban 5 Mg Tablet) 5 mg PO BID [facility] Last Admin: 02/18/24 20:22 Dose: 5 mg Bisacodyl (Bisacodyl 5 Mg Tablet.Dr) 10 mg PO BEDTIME [facility] Last Admin: 02/18/24 20:25 Dose: 10 mg Cariprazine (Cariprazine Hcl 1.5 Mg Capsule) 1.5 mg PO DAILY [facility] Last Admin: 02/18/24 08:40 Dose: 1.5 mg Cariprazine (Cariprazine Hcl 3 Mg Capsule) 3 mg PO DAILY [facility] Last Admin: 02/18/24 08:40 Dose: 3 mg Cyanocobalamin (Cyanocobalamin (Vitamin B-12) 500 Mcg Tablet) 500 mcg PO DAILY [facility] Last Admin: 02/18/24 08:39 Dose: 500 mcg Diphenhydramine HCl (Diphenhydramine Hcl 25 Mg Capsule) 25 mg PO TID PRN PRN Reason: allergies Last Admin: 02/18/24 20:23 Dose: 25 mg Docusate Sodium (Docusate Sodium 100 Mg Capsule) 100 mg PO DAILY [facility] Last Admin: 02/18/24 08:41 Dose: 100 mg Ferrous Sulfate (Ferrous Sulfate 324 Mg Tablet.Dr) 324 mg PO DAILY [facility] Last Admin: 02/18/24 08:41 Dose: 324 mg Gabapentin (Gabapentin 400 Mg Capsule) 800 mg PO TID [facility] Last Admin: 02/18/24 15:26 Dose: 800 mg Hydrocortisone (Hydrocortisone 2.5 % Rectal Cr 30 Gm Tube) 1 appl GA BID [facility] Last Admin: 02/18/24 20:27 Dose: Not Given Hydroxyzine HCl (Hydroxyzine Hcl 25 Mg Tablet) 25 mg PO Q6H PRN PRN Reason: Anxiety Last Admin: 02/14/24 23:00 Dose: 25 mg Lorazepam (Lorazepam 1 Mg Tablet) 1 mg PO BID PRN PRN Reason: Anxiety Last Admin: 02/13/24 21:24 Dose: 1 mg Magnesium Hydroxide (Milk Of Magnesia 30 Ml Oral.Susp) 30 ml PO DAILY PRN PRN Reason: Constipation Meclizine HCl (Meclizine Hcl 25 Mg Tablet) 25 mg PO TID PRN PRN Reason: dizziness Last Admin: 02/16/24 13:13 Dose: 25 mg Melatonin (Melatonin 3 Mg Tablet) 9 mg PO BEDTIME PRN PRN Reason: Insomnia Last Admin: 02/18/24 20:22 Dose: 9 mg Midodrine (Midodrine Hcl 10 Mg Tablet) 10 mg PO TID@0900,1300,1800 [facility] Last Admin: 02/18/24 17:49 Dose: 10 mg Mirtazapine (Mirtazapine 15 Mg Tablet) 15 mg PO BEDTIME [facility] Last Admin: 02/18/24 20:23 Dose: 15 mg Naloxone HCl (Naloxone Hcl 0.4 Mg/Ml Vial) 0.04 mg IVPUSH Q5M PRN PRN Reason: Excessive sedation or RR < 8 Nicotine Polacrilex (Nicotine Polacrilex 2 Mg Gum) 4 mg BUCCAL Q2H PRN PRN Reason: Nicotine Cravings Pt Own (Rosuvastatin (5 Mg Tablet)) 5 mg PO DAILY [facility] Last Admin: 02/18/24 08:37 Dose: 5 mg Omeprazole (Omeprazole 20 Mg Capsule.Dr) 20 mg PO DAILY@0630 [facility] Last Admin: 02/18/24 06:45 Dose: 20 mg Risperidone (Risperidone 1 Mg Tablet) 1 mg PO BID PRN PRN Reason: AH Last Admin: 02/13/24 10:05 Dose: 1 mg Risperidone (Risperidone 2 Mg Tablet) 2 mg PO BID [facility] Last Admin: 02/18/24 20:24 Dose: 2 mg Topiramate (Topiramate 100 Mg Tablet) 100 mg PO DAILY [facility] Last Admin: 02/18/24 08:40 Dose: 100 mg Tramadol HCl (Tramadol Hcl 50 Mg Tablet) 100 mg PO Q8H PRN PRN Reason: severe pain Last Admin: 02/18/24 03:46 Dose: 100 mg Trazodone HCl (Trazodone Hcl 50 Mg Tablet) 50 mg PO BEDTIME MRX1 PRN PRN Reason: Insomnia Last Admin: 02/14/24 23:01 Dose: 50 mg Triamcinolone Acetonide (Triamcinolone Acet 0.1 % Cream 15 Gm Tube) 1 appl TOPICAL DAILY PRN PRN Reason: rash Vitamin D (Cholecalciferol (Vitamin D3) 25 Mcg Tablet) 25 mcg PO DAILY [facility] Last Admin: 02/18/24 08:38 Dose: 25 mcg Allergies Allergies Allergy/AdvReac Type Severity Reaction Status Date / Time acetaminophen AdvReac Unknown Unknown Verified 01/22/24 09:01 atorvastatin AdvReac Severe elevated Uncoded 01/22/24 09:01 liver enzymes Assessment & Plan Assessment & Plan (1) MDD (major depressive disorder), recurrent, severe, with psychosis: Status: Acute Code(s): F33.3 - Major depressive disorder, recurrent, severe with psychotic symptoms (2) Post traumatic stress disorder (PTSD): Status: Acute Code(s): F43.10 - Post-traumatic stress disorder, unspecified (3) Pulmonary embolism: Qualifiers: Pulmonary embolism type: multiple subsegmental (without acute cor pulmonale) Qualified Code(s): I26.94 - Multiple subsegmental thrombotic pulmonary emboli without acute cor pulmonale Status: Acute Code(s): I26.99 - Other pulmonary embolism without acute cor pulmonale (4) MIGUEL (obstructive sleep apnea): Status: Acute Code(s): G47.33 - Obstructive sleep apnea (adult) (pediatric) (5) Chronic kidney disease, stage III (moderate): Qualifiers: Chronic kidney disease stage 3 subtype: stage 3a (GFR 45-59) Qualified Code(s): N18.31 - Chronic kidney disease, stage 3a Status: Acute Code(s): N18.30 - Chronic kidney disease, stage 3 unspecified Plan HPI: Patient is a 53-year-old female with history of MDD with psychotic features (r/o schizoaffective disorder, depressed type) PTSD, borderline traits, kidney cancer (one kidney). She first presented for admission for worsening depression and AH. Patient was feeling overall good enough until about 4 months ago. Without any obvious trigger, and despite continued adherence to medication regimen, she reports that her mood started to decline and AH (which is present independent of mood) became worse. Patient said she started having bad thoughts.. At which she became tearful and would not disclose them. She said her mood got worse and worse and voices told her to hurt herself; she started seeing shadow figures and having horrific nightmares where sometimes she can tell if she was awake or asleep but saw a ball of fire and things burning. AH worsened this past week and so patient self presented. She denies any history of manic type behaviors; ongoing PTSD symptoms. Patient does not remember history of med trials On M5, patient was started on Vraylar and ECT. She only received 2 ECT trials when she developed a pulmonary embolism; patient started on anticoagulation however ECT held. A few days later patient reported left-sided weakness which was evident on exam; she was transferred to medical floor, with head/neck CT/angiogram and then MRI; patient was diagnosed with complex migraine that can mimic a stroke; patient was stabilized and returned to the unit. There were some incidental findings which included thyroid nodules that medical team thought could be followed up as an outpatient. Now stabilized, patient returns to for continued treatment for depression. Patient reports she remains very depressed and continues to have AH which are very bothersome. Patient adamantly requests to restart ECT which she was hopeful would be helpful. Formulaton/clinical reasoning: Electrician'S Helper discussed case with patient's outpatient psychiatric provider Dr. Kathleen who has known patient for years. She reports that Patient has long history of depression, frequently severe, intermixed with PTSD symptoms, emotional reactivity; although patient endorses continue AH, Dr. Kathleen does not think necessarily an organic psychotic illness and only symptom is AH (no history of delusional thinking, no disorganized speech or behavior). Pt has had numerous medication trials with only partial response. Discussed treatment approaches and provider agrees that ECT trial is warranted; no benefit from Latuda thus far and although was only at 20 mg, agree to start Vraylar instead which maybe a little more robust in dealing with AH. Patient amenable to changing medications. Hamer? only one kidney so hesitant. Also considerations are OCD/JAMIE regarding dx, although pt has AH (which IS independent of mood), she has no other psychotic symptoms HOSPITAL COURSE: 02/07 complaining of worsened command AH to kill self; tearful. Risperdal worked as PRN for few hours so she agreed to restart (failed in past). 1.continues on Vraylar 4.5mg daily: maybe helped with depression some, but AH remained 2.returned from Medical floor on Latuda (which was did not seem to help in past), but since so depressed and not sure if will get ECT, left it since monotherapy has not been effective (will leave for now, but likey dc) 3.Started on Risperdal 1mg TID since prn risperdal took away AH for a few hours 4. Currently on 3 antipsychotics but will likely dc some of them. -Regarding ECT, Discussed with [facility] [employer] Dr. Guthrie who reports pt does not need O2 and From a pulmonary standpoint, the patient is doing well, stable. She may proceed with anesthesia and ECT at this time as long as she can the anticoagulation without interruptions. -Discussed with Anesthesiologis Dr. Willett who agrees that pulm recs are sufficient to proceed with ECT and that pt can remain on anticoagulation dx, although pt has AH (which IS independent of mood), she has no other psychotic symptoms 02/09/24 Discussed with pt sx with interpetr hx chronic hills depression hx depression ptsd ? dissociative hills would taper latuda ect when available next few days if remains unchanged some aspects of sx are chronic with recent exacerbation pt has been able to mainsafety no sob noted 02/12 pt remains depressed but says Risperdal helps when she takes it; says this morning, AH command, upsetting but dissipated with scheduled and prn risperdal. Discussed ECT and pt wants to continue 02/13 Patient had ECT this morning and reports that she has a headache and asked for medication and was given another dose of Fioricet. She denies any AH today for which she is relieved. Discussed medication management and she agrees to increase Risperdal for now and wants to continue with ECT 02/14 Patient reports that her mood is so-so which is the best it has been since she got here. Also says no AH which makes 2 days now enroll. Patient discussed medications and ECT and wants to continue with both. Discussed how it is unclear if AH is resolving because of ECT or Risperdal but because she is doing better will continue with this medication for now -patient asked about pulmonary embolisms and junior technical writer provided education 02/16: Continue plan of care 02/17: Continue plan of care Urine culture pending. 02/18 patient remains with significant psychomotor retardation and depression. Thankfully AH has resolved. Patient requires continue inpatient admission for continued ECT treatments. PLAN: CV Q 15 minute checks ECT #5 pending 02/20 (including ECT prior to PE) NPO Taper off Latuda Increased to Risperdal 2mg BID for continued AH (up from 1mg TID) continue vryaler 4.5mg for depression currently on Vraylar, Latuda and recently started on Risperdal. This is temporary and will continue to fine tune. Numerous failed Med trials: Haldol: got tremor abilify: wt gain risperidone Geodon Cymbalta, Effexor, Lexapro, Pristiq mirtazapine lamictal Medical comorbidities: 1. L-sided weakness: Resolved, transient: complex migraine; Neuro consulted, likely complex migraine rather than CVA/TIA. Sumatriptan contraindicated; use Fioricet prn; continue topiramate 2. transaminasemia - has been a recurrent problem in past; US with Dopplers + GI cosult pending; LFTs improving; 3. recently diagnosed PE 01/31 [R main PA + segmental branches of RLL] - was started on therapeutic enoxaparin; transitioned to apixaban 4.orthostatic hypotension, chronic; - continue midodrine 5. Incidental finding on CTA: possible thinning of semicircular canals bilaterally with question of dehiscence noted on CTA, incidental (ED contacted ENT) likely transient, follow up as outpt, no further workup at this time 6. Incidental finding on CTA: thyroid nodule, incidentally noted on CTA, 1.9 cm left; outpt f/u with thyroid US 7. IBS-C; bowel regimen, outpt GI f/u 8. asthma not in acute exac; prn albuterol 9. MIGUEL; CPAP at night Patient educated on: diagnosis, medication risk/benefits, ECT and therapeutic strategies Informed Consent: understands Reason for continued inpatient stay Substantial Risk for: rapid decompensation Time Spent With Patient Time: Total time managing care of this patient today ____ minutes.
--- NOTE | 2024-02-19 12:31 | MHC.SHP ---
Pre-Procedural Eval Section A - 24 Hr Update-Section A only Date of Service: 02/19/24 The patient is an INPATIENT: Yes Changes since office visit: No Cold of Flu in the past 2 weeks, No New Medical Problems, No Changes in Medication and No Patient answered all questions The patient has been examined within 24 hours of the surgical procedure. The History & Physical has been completed within 30 days and I have reviewed it.: Yes Section B - Complete if H&P > 30 days Chief Complaint: Depression Allergies: Allergies Allergy/AdvReac Type Severity Reaction Status Date / Time acetaminophen AdvReac Unknown Unknown Verified 01/22/24 09:01 atorvastatin AdvReac Severe elevated Uncoded 01/22/24 09:01 liver enzymes Plan I have reviewed the history and physical and performed a pertinent physical examination on my patient. No changes have occurred unless specified. Time Spent With Patient Time: Total time managing care of this patient today ____ minutes.
--- NOTE | 2024-02-19 12:53 | HO.ECTPROC ---
ECT Procedure Note Diagnosis/Treatment Date of Service: 02/19/24 Previous ECT Date: 02/16/24 Current Treatment Number: 4 Treatment: Series Interval Clinical Notes: The patient reported improvement of her mood. Denies side effects with the previous ECT. ECT done with the same perimeters, seizure optimal, resolved by itself. Woke up well, no complications. Time: Total time managing care of this patient today __30__ minutes. ECT Settings Device: THYMATRON DGx Electrode Placement: Right Unilateral Program/Pulse Width: 0.25 Energy Percent: 80 Seizure Duration By EEG (in seconds): 54 By Motor Observation (in seconds): 42 Medications Administration General Anesthetic: Etomidate (10) Muscle Relaxant: Succinylcholine (80) Ancillary Medications Analgesics: Torodol - Pre ECT Anti-emetics: Zofran - Pre ECT Airway Management Airway Management: Bag Mask Ventilation Treatment Recommendations No Changes Recommended: No change Pt Tolerated Procedure w/o Issue: Yes
[2024-02-19] MEDS: Butalb/Acetamin/Caff 50/325/40 TABLET 2 TAB PO ×2 (13:49→20:35)
[2024-02-19] MEDS: Cariprazine HCl 3 MG CAPSULE PO (13:50)
[2024-02-19] MEDS: Topiramate 100 MG TABLET PO (13:50)
[2024-02-19] MEDS: Apixaban 5 MG TABLET PO ×2 (13:50→20:34)
[2024-02-19] MEDS: Cariprazine HCl 1.5 MG CAPSULE PO (13:50)
[2024-02-19] MEDS: Midodrine HCl 10 MG TABLET PO ×2 (13:50→17:56)
[2024-02-19] MEDS: Gabapentin 400 MG CAPSULE 800 MG PO ×2 (14:30→20:34)
[2024-02-19] MEDS: traMADoL HCL 50 MG TABLET 100 MG PO (17:57)
[2024-02-19] MEDS: risperiDONE 2 MG TABLET PO (20:34)
[2024-02-19] MEDS: traZODone HCL 50 MG TABLET PO (20:34)
[2024-02-19] MEDS: bisacodyL 5 MG TABLET.DR 10 MG PO (20:34)
[2024-02-19] MEDS: Mirtazapine 15 MG TABLET PO (20:34)
[2024-02-19] MEDS: Melatonin 3 MG TABLET 9 MG PO (20:39)
[2024-02-19] MEDS: diphenhydrAMINE HCL 25 MG CAPSULE PO (20:41)
[2024-02-20] MEDS: Butalb/Acetamin/Caff 50/325/40 TABLET 2 TAB PO ×4 (03:42→20:16)
[2024-02-20] MEDS: Omeprazole 20 MG CAPSULE.DR PO (06:25)
[2024-02-20] MEDS: LORazepam 1 MG TABLET PO (06:25)
[2024-02-20 08:00] VITALS: PULSE 56; RESP 16; TEMP 36.6; O2SAT 97
[2024-02-20] MEDS: ROSUVASTATIN 5 MG 5 EACH PO (08:43)
[2024-02-20] MEDS: Cyanocobalamin (Vitamin B-12) 500 MCG TABLET PO (08:43)
[2024-02-20 08:44] VITALS: BP 105/68
[2024-02-20] MEDS: Docusate Sodium 100 MG CAPSULE PO (08:44)
[2024-02-20] MEDS: Topiramate 100 MG TABLET PO (08:44)
[2024-02-20] MEDS: Apixaban 5 MG TABLET PO ×2 (08:44→20:17)
[2024-02-20] MEDS: Cariprazine HCl 1.5 MG CAPSULE PO (08:44)
[2024-02-20] MEDS: risperiDONE 2 MG TABLET PO ×2 (08:44→20:17)
[2024-02-20] MEDS: Gabapentin 400 MG CAPSULE 800 MG PO ×3 (08:44→20:15)
[2024-02-20] MEDS: Midodrine HCl 10 MG TABLET PO ×3 (08:44→17:31)
[2024-02-20] MEDS: Ferrous Sulfate 324 MG TABLET.DR PO (08:45)
[2024-02-20] MEDS: Cariprazine HCl 3 MG CAPSULE PO (08:45)
[2024-02-20] MEDS: Cholecalciferol (Vitamin D3) 25 MCG TABLET PO (08:45)
[2024-02-20] MEDS: cefuroxime axetiL 500 MG TABLET PO ×2 (11:13→20:17)
--- NOTE | 2024-02-20 11:45 | HO.PSYCHPN ---
Subjective Subjective Date of Service: 02/20/24 Reason For Visit: Depression Interim History: Met with patient; discussed with team patient seen with translator and interpreter Patient remains depressed; significant psychomotor retardation. Patient continues to have a headache though she says it is getting less Patient anxious about medical comorbidities. Discussed patient's lab work, UTI and antibiotics; discussed again nodule on thyroid and liver function UA positive for gram-negative rods; discussed with hospitalist and patient started on Ceftin 500 mg b.i.d. for 7 days Mental Status Exam Mental Status Exam Narrative: Pt is alert and oriented; behavior is cooperative, calm; dressed in casual pajamas with adequate grooming; mood is described as depressed affect downcast; eye contact avoidant; Speech remains soft volume, slowed rate; normal prosody; psychomotor retardation present; thought process is goal oriented; Thought content is on symptoms, tx; otherwise pertinent to relevant topics and without any delusional content, paranoid ideations or grandiosity; no SI; no HI; No AH Patients insight and judgment improving Diagnostics Vital Signs (24Hr): Vital Signs - 24 hr 02/19/24 12:56 02/19/24 13:01 02/19/24 13:06 Temperature 97.6 F Pulse Rate 72 69 68 Respiratory Rate 18 18 18 Blood Pressure 109/53 L 104/86 118/62 Pulse Oximetry 100 100 100 Oxygen Delivery Method Nasal Cannula Nasal Cannula Nasal Cannula Oxygen Flow Rate 2 2 2 02/19/24 13:11 02/19/24 13:26 02/19/24 13:42 Temperature 97.6 F 97 F Pulse Rate 68 71 81 Respiratory Rate 18 16 18 Blood Pressure 122/66 114/87 123/74 Pulse Oximetry 98 98 Oxygen Delivery Method Room Air Room Air Oxygen Flow Rate 02/19/24 17:56 02/19/24 23:13 02/20/24 08:44 Temperature Pulse Rate Respiratory Rate 18 Blood Pressure 121/73 105/68 Pulse Oximetry Oxygen Delivery Method Oxygen Flow Rate BMI result Body Mass Index 28.6 Medications Medications Current Medications Acetaminophen/Butalbital/Caffeine (Butalb/Acetamin/Caff 50/325/40 Tablet) 2 tab PO Q6H PRN PRN Reason: Migraine Headache Last Admin: 02/20/24 10:14 Dose: 2 tab Al Hydroxide/Mg Hydroxide (Magnesium Hydrox/Alum Hydrox 30 Ml Oral.Susp) 30 ml PO Q6H PRN PRN Reason: Heartburn/Nausea Albuterol Sulfate (Albuterol Sulfate 90 Mcg 8 Gm Inhaler) 2 puff INHALE RQ6H PRN PRN Reason: wheezing Apixaban (Apixaban 5 Mg Tablet) 5 mg PO BID [facility] Last Admin: 02/20/24 08:44 Dose: 5 mg Bisacodyl (Bisacodyl 5 Mg Tablet.) 10 mg PO BEDTIME [facility] Last Admin: 02/19/24 20:34 Dose: 10 mg Cariprazine (Cariprazine Hcl 1.5 Mg Capsule) 1.5 mg PO DAILY [facility] Last Admin: 02/20/24 08:44 Dose: 1.5 mg Cariprazine (Cariprazine Hcl 3 Mg Capsule) 3 mg PO DAILY [facility] Last Admin: 02/20/24 08:45 Dose: 3 mg Cefuroxime Axetil (Cefuroxime Axetil 500 Mg Tablet) 500 mg PO BID [facility] Stop: 02/26/24 21:01 Last Admin: 02/20/24 11:13 Dose: 500 mg Cyanocobalamin (Cyanocobalamin (Vitamin B-12) 500 Mcg Tablet) 500 mcg PO DAILY [facility] Last Admin: 02/20/24 08:43 Dose: 500 mcg Diphenhydramine HCl (Diphenhydramine Hcl 25 Mg Capsule) 25 mg PO TID PRN PRN Reason: allergies Last Admin: 02/19/24 20:41 Dose: 25 mg Docusate Sodium (Docusate Sodium 100 Mg Capsule) 100 mg PO DAILY [facility] Last Admin: 02/20/24 08:44 Dose: 100 mg Ferrous Sulfate (Ferrous Sulfate 324 Mg Tablet.) 324 mg PO DAILY [facility] Last Admin: 02/20/24 08:45 Dose: 324 mg Gabapentin (Gabapentin 400 Mg Capsule) 800 mg PO TID [facility] Last Admin: 02/20/24 08:44 Dose: 800 mg Hydrocortisone (Hydrocortisone 2.5 % Rectal Cr 30 Gm Tube) 1 appl CO BID [facility] Last Admin: 02/20/24 10:16 Dose: Not Given Hydroxyzine HCl (Hydroxyzine Hcl 25 Mg Tablet) 25 mg PO Q6H PRN PRN Reason: Anxiety Last Admin: 02/14/24 23:00 Dose: 25 mg Lorazepam (Lorazepam 1 Mg Tablet) 1 mg PO BID PRN PRN Reason: Anxiety Last Admin: 02/20/24 06:25 Dose: 1 mg Magnesium Hydroxide (Milk Of Magnesia 30 Ml Oral.Susp) 30 ml PO DAILY PRN PRN Reason: Constipation Meclizine HCl (Meclizine Hcl 25 Mg Tablet) 25 mg PO TID PRN PRN Reason: dizziness Last Admin: 02/16/24 13:13 Dose: 25 mg Melatonin (Melatonin 3 Mg Tablet) 9 mg PO BEDTIME PRN PRN Reason: Insomnia Last Admin: 02/19/24 20:39 Dose: 9 mg Midodrine (Midodrine Hcl 10 Mg Tablet) 10 mg PO TID@0900,1300,1800 [facility] Last Admin: 02/20/24 08:44 Dose: 10 mg Mirtazapine (Mirtazapine 15 Mg Tablet) 15 mg PO BEDTIME [facility] Last Admin: 02/19/24 20:34 Dose: 15 mg Naloxone HCl (Naloxone Hcl 0.4 Mg/Ml Vial) 0.04 mg IVPUSH Q5M PRN PRN Reason: Excessive sedation or RR < 8 Nicotine Polacrilex (Nicotine Polacrilex 2 Mg Gum) 4 mg BUCCAL Q2H PRN PRN Reason: Nicotine Cravings Pt Own (Rosuvastatin (5 Mg Tablet)) 5 mg PO DAILY [facility] Last Admin: 02/20/24 08:43 Dose: 5 mg Omeprazole (Omeprazole 20 Mg Capsule.Dr) 20 mg PO DAILY@0630 [facility] Last Admin: 02/20/24 06:25 Dose: 20 mg Risperidone (Risperidone 1 Mg Tablet) 1 mg PO BID PRN PRN Reason: AH Last Admin: 02/13/24 10:05 Dose: 1 mg Risperidone (Risperidone 2 Mg Tablet) 2 mg PO BID [facility] Last Admin: 02/20/24 08:44 Dose: 2 mg Topiramate (Topiramate 100 Mg Tablet) 100 mg PO DAILY [facility] Last Admin: 02/20/24 08:44 Dose: 100 mg Tramadol HCl (Tramadol Hcl 50 Mg Tablet) 100 mg PO Q8H PRN PRN Reason: severe pain Last Admin: 02/19/24 17:57 Dose: 100 mg Trazodone HCl (Trazodone Hcl 50 Mg Tablet) 50 mg PO BEDTIME MRX1 PRN PRN Reason: Insomnia Last Admin: 02/19/24 20:34 Dose: 50 mg Triamcinolone Acetonide (Triamcinolone Acet 0.1 % Cream 15 Gm Tube) 1 appl TOPICAL DAILY PRN PRN Reason: rash Vitamin D (Cholecalciferol (Vitamin D3) 25 Mcg Tablet) 25 mcg PO DAILY [facility] Last Admin: 02/20/24 08:45 Dose: 25 mcg Allergies Allergies Allergy/AdvReac Type Severity Reaction Status Date / Time acetaminophen AdvReac Unknown Unknown Verified 01/22/24 09:01 atorvastatin AdvReac Severe elevated Uncoded 01/22/24 09:01 liver enzymes Assessment & Plan Assessment & Plan (1) MDD (major depressive disorder), recurrent, severe, with psychosis: Status: Acute Code(s): F33.3 - Major depressive disorder, recurrent, severe with psychotic symptoms (2) Post traumatic stress disorder (PTSD): Status: Acute Code(s): F43.10 - Post-traumatic stress disorder, unspecified (3) Pulmonary embolism: Qualifiers: Pulmonary embolism type: multiple subsegmental (without acute cor pulmonale) Qualified Code(s): I26.94 - Multiple subsegmental thrombotic pulmonary emboli without acute cor pulmonale Status: Acute Code(s): I26.99 - Other pulmonary embolism without acute cor pulmonale (4) MIGUEL (obstructive sleep apnea): Status: Acute Code(s): G47.33 - Obstructive sleep apnea (adult) (pediatric) (5) Chronic kidney disease, stage III (moderate): Qualifiers: Chronic kidney disease stage 3 subtype: stage 3a (GFR 45-59) Qualified Code(s): N18.31 - Chronic kidney disease, stage 3a Status: Acute Code(s): N18.30 - Chronic kidney disease, stage 3 unspecified Plan HPI: Patient is a 53-year-old female with history of MDD with psychotic features (r/o schizoaffective disorder, depressed type) PTSD, borderline traits, kidney cancer (one kidney). She first presented for admission for worsening depression and AH. Patient was feeling overall good enough until about 4 months ago. Without any obvious trigger, and despite continued adherence to medication regimen, she reports that her mood started to decline and AH (which is present independent of mood) became worse. Patient said she started having bad thoughts.. At which she became tearful and would not disclose them. She said her mood got worse and worse and voices told her to hurt herself; she started seeing shadow figures and having horrific nightmares where sometimes she can tell if she was awake or asleep but saw a ball of fire and things burning. AH worsened this past week and so patient self presented. She denies any history of manic type behaviors; ongoing PTSD symptoms. Patient does not remember history of med trials On M5, patient was started on Vraylar and ECT. She only received 2 ECT trials when she developed a pulmonary embolism; patient started on anticoagulation however ECT held. A few days later patient reported left-sided weakness which was evident on exam; she was transferred to medical floor, with head/neck CT/angiogram and then MRI; patient was diagnosed with complex migraine that can mimic a stroke; patient was stabilized and returned to the unit. There were some incidental findings which included thyroid nodules that medical team thought could be followed up as an outpatient. Now stabilized, patient returns to for continued treatment for depression. Patient reports she remains very depressed and continues to have AH which are very bothersome. Patient adamantly requests to restart ECT which she was hopeful would be helpful. Formulaton/clinical reasoning: Anesthesia Resident discussed case with patient's outpatient psychiatric provider Dr. Kathleen who has known patient for years. She reports that Patient has long history of depression, frequently severe, intermixed with PTSD symptoms, emotional reactivity; although patient endorses continue AH, Dr. Kathleen does not think necessarily an organic psychotic illness and only symptom is AH (no history of delusional thinking, no disorganized speech or behavior). Pt has had numerous medication trials with only partial response. Discussed treatment approaches and provider agrees that ECT trial is warranted; no benefit from Latuda thus far and although was only at 20 mg, agree to start Vraylar instead which maybe a little more robust in dealing with AH. Patient amenable to changing medications. [place]? only one kidney so hesitant. Also considerations are OCD/JAMIE regarding dx, although pt has AH (which IS independent of mood), she has no other psychotic symptoms HOSPITAL COURSE: 02/07 complaining of worsened command AH to kill self; tearful. Risperdal worked as PRN for few hours so she agreed to restart (failed in past). 1.continues on Vraylar 4.5mg daily: maybe helped with depression some, but AH remained 2.returned from Medical floor on Latuda (which was did not seem to help in past), but since so depressed and not sure if will get ECT, left it since monotherapy has not been effective (will leave for now, but likey dc) 3.Started on Risperdal 1mg TID since prn risperdal took away AH for a few hours 4. Currently on 3 antipsychotics but will likely dc some of them. -Regarding ECT, Discussed with Sizing Machine Operator Dr. Guthrie who reports pt does not need O2 and From a pulmonary standpoint, the patient is doing well, stable. She may proceed with anesthesia and ECT at this time as long as she can the anticoagulation without interruptions. -Discussed with Anesthesiologis Dr. Willett who agrees that pulm recs are sufficient to proceed with ECT and that pt can remain on anticoagulation dx, although pt has AH (which IS independent of mood), she has no other psychotic symptoms 02/09/24 Discussed with pt sx with interpetr hx chronic hills depression hx depression ptsd ? dissociative hills would taper latuda ect when available next few days if remains unchanged some aspects of sx are chronic with recent exacerbation pt has been able to mainsafety no sob noted 02/12 pt remains depressed but says Risperdal helps when she takes it; says this morning, AH command, upsetting but dissipated with scheduled and prn risperdal. Discussed ECT and pt wants to continue 02/13 Patient had ECT this morning and reports that she has a headache and asked for medication and was given another dose of Fioricet. She denies any AH today for which she is relieved. Discussed medication management and she agrees to increase Risperdal for now and wants to continue with ECT 02/14 Patient reports that her mood is so-so which is the best it has been since she got here. Also says no AH which makes 2 days now enroll. Patient discussed medications and ECT and wants to continue with both. Discussed how it is unclear if AH is resolving because of ECT or Risperdal but because she is doing better will continue with this medication for now -patient asked about pulmonary embolisms and va underwriter provided education 02/16: Continue plan of care 02/17: Continue plan of care Urine culture pending. 02/18 patient remains with significant psychomotor retardation and depression. Thankfully AH has resolved. Patient requires continue inpatient admission for continued ECT treatments. 02/19 Patient remains depressed; significant psychomotor retardation. AH remains resolved; not clear if it is due to ECT or Risperdal but given this improvement, va underwriter hesitant to change medication regimen; patient agrees and wants to remain on current regimen. Patient continues to have a headache though she says it is getting less Patient anxious about medical comorbidities. Discussed patient's lab work, UTI and antibiotics; discussed again nodule on thyroid and liver function -will reorder LFTs to monitor -UA positive for gram-negative rods; discussed with hospitalist and patient started on Ceftin 500 mg b.i.d. for 7 days PLAN: CV Q 15 minute checks ECT #5 pending 02/20 (including ECT prior to PE) NPO Continue Risperdal 2mg BID for continued AH (up from 1mg TID) continue vryaler 4.5mg for depression currently on Vraylar for mood and Risperdal for AH. Numerous failed Med trials: Haldol: got tremor abilify: wt gain risperidone Geodon Cymbalta, Effexor, Lexapro, Pristiq mirtazapine lamictal Medical comorbidities: 1. L-sided weakness: Resolved, transient: complex migraine; Neuro consulted, likely complex migraine rather than CVA/TIA. Sumatriptan contraindicated; use Fioricet prn; continue topiramate 2. transaminasemia - has been a recurrent problem in past; US with Dopplers + GI cosult pending; LFTs improving; 3. recently diagnosed PE 01/31 [R main PA + segmental branches of RLL] - was started on therapeutic enoxaparin; transitioned to apixaban 4.orthostatic hypotension, chronic; - continue midodrine 5. Incidental finding on CTA: possible thinning of semicircular canals bilaterally with question of dehiscence noted on CTA, incidental (ED contacted ENT) likely transient, follow up as outpt, no further workup at this time 6. Incidental finding on CTA: thyroid nodule, incidentally noted on CTA, 1.9 cm left; outpt f/u with thyroid US 7. IBS-C; bowel regimen, outpt GI f/u 8. asthma not in acute exac; prn albuterol 9. MIGUEL; CPAP at night Patient educated on: diagnosis, medication risk/benefits and ECT Informed Consent: understands Reason for continued inpatient stay Substantial Risk for: rapid decompensation Time Spent With Patient Time: Total time managing care of this patient today ____ minutes.
[2024-02-20 12:39] VITALS: BP 101/60
[2024-02-20 17:25] VITALS: BP 111/69; PULSE 69; RESP 14; TEMP 36.4; O2SAT 98
[2024-02-20 17:26] LABS: Alanine Aminotransferase 61 U/L (0-31); Albumin Level 3.7 g/dL (3.5-5.0); Alkaline Phosphatase 120 U/L (39-117); Aspartate Amino Transferase 43 U/L (5-31); Bilirubin Direct < 0.2 mg/dL (0.0-0.5); Bilirubin Total 0.2 mg/dL (0.0-1.0); Total Protein 6.6 g/dL (6.5-8.0)
[2024-02-20 17:46] LABS: TSH reflex Free T4 1.03 uIU/mL (0.32-4.0)
[2024-02-20 20:00] VITALS: BP 111/69; PULSE 72; TEMP 36.4; O2SAT 98
[2024-02-20] MEDS: bisacodyL 5 MG TABLET.DR 10 MG PO (20:15)
[2024-02-20] MEDS: Mirtazapine 15 MG TABLET PO (20:16)
[2024-02-20] MEDS: traZODone HCL 50 MG TABLET PO (20:17)
[2024-02-20] MEDS: Melatonin 3 MG TABLET 9 MG PO (20:20)
[2024-02-20] MEDS: diphenhydrAMINE HCL 25 MG CAPSULE PO (20:20)
--- NOTE | 2024-02-20 21:57 | PC.NURSE ---
Patient requested and received PRN Trazadone, Melatonin, Benadryl and Fioricet at HS with good effect.
[2024-02-20 23:21] VITALS: PULSE 58; RESP 18; O2SAT 96
[2024-02-21] VITALS (9 sets, daily range): BP systolic 113–134; BP diastolic 61–73; PULSE 57–74; RESP 13–17; TEMP 36.2–36.6; O2SAT 98–100; BMI 28.5
--- NOTE | 2024-02-21 06:33 | P.CONAN_ITS ---
HPI - Anesthesia Eval Consult details Narrative: For ECT PMFSH Active Problems Active Problems: All Active Problems Pre-op chest exam (Acute) Pulmonary embolism (Acute) Abnormal LFTs (Acute) Left-sided weakness (Acute) Shortness of breath (Acute) Cough (Acute) Chest pain (Acute) PTSD (post-traumatic stress disorder) (Acute) Depression with suicidal ideation (Acute) Dizziness (Acute) Ventral hernia (Acute) Flank hernia (Acute) Sacroiliac joint dysfunction of both sides (Acute) Abdominal pannus (Acute) Depression (Acute) Hypotension (Acute) Lower urinary tract symptoms (Acute) Complicated urinary tract infection (Acute) Osteoporosis screening (Acute) Chronic kidney disease, stage III (moderate) (Acute) Paresthesia (Acute) Recurrent urinary tract infection (Acute) Solitary kidney, acquired (Acute) Orthostatic dizziness (Acute) Symptomatic abdominal panniculus (Acute) Panniculitis (Acute) Bilateral leg weakness (Acute) Obesity (Acute) Overweight (BMI 25.0-29.9) (Acute) Urinary tract infection (Acute) Dysuria (Acute) Skin laxity (Acute) Painful sexual intercourse (Acute) Dyspareunia, female (Acute) Nephrolithiasis (Acute) Constipation (Acute) Colon cancer screening (Acute) Overweight (Acute) Sacroiliac joint pain (Acute) Left lumbar radiculopathy (Acute) Memory impairment (Acute) Renal cyst (Acute) Transaminitis (Acute) Elevated LFTs (Acute) Abdominal wall mass (Acute) Annual physical exam (Acute) Bilateral elbow joint pain (Acute) Hip pain, bilateral (Acute) Knee pain, bilateral (Acute) Arthralgia (Acute) UTI (urinary tract infection) (Acute) Post traumatic stress disorder (PTSD) (Acute) MDD (major depressive disorder), recurrent, severe, with psychosis (Acute) Encounter to discuss test results (Acute) Urinary frequency (Acute) Urinary incontinence (Acute) Excess skin (Acute) Renal calculus, right (Acute) MIGUEL (obstructive sleep apnea) (Acute) Obesity (BMI 30-39.9) (Acute) Renal cyst (Acute) Diverticulosis (Acute) Tubular adenoma (Acute) Spondylosis of lumbar spine (Acute) Sacroiliitis (Acute) Dizziness of unknown etiology (Acute) Chronic constipation (Acute) History of gastric bypass (Acute ~2008) Dyspareunia (Acute) Pyelonephritis (Acute) Ingrown toenail (Acute) Iron deficiency anemia (Acute) Major depression, recurrent (Acute) Anxiety (Acute) Insomnia (Acute) Tremor (Acute) Orthostatic hypotension (Acute) Incisional hernia without obstruction or gangrene (Acute) Avascular necrosis of femoral head (Acute) Bilateral carpal tunnel syndrome (Acute) Peroneal neuropathy (Acute) Lumbar degenerative disc disease (Acute) Vitamin D deficiency (Acute) GERD (gastroesophageal reflux disease) (Acute) Migraine (Acute) Hyperlipidemia (Acute) Past Medical History Medical History (Updated 02/12/24 @ 00:01 by Background Daemon) Chronic kidney disease, stage III (moderate) Obesity (BMI 30-39.9) Renal cyst Diverticulosis Tubular adenoma Asthma Spondylosis of lumbar spine Sacroiliitis Dizziness of unknown etiology Chronic constipation Hx of schizophrenia Panic attacks PTSD (post-traumatic stress disorder) Dyspareunia Pyelonephritis Ingrown toenail Iron deficiency anemia Major depression, recurrent Anxiety Insomnia Tremor Orthostatic hypotension Incisional hernia without obstruction or gangrene Avascular necrosis of femoral head Bilateral carpal tunnel syndrome Peroneal neuropathy Lumbar degenerative disc disease Vitamin D deficiency GERD (gastroesophageal reflux disease) Migraine Hyperlipidemia Family History Family History Father Liver cancer Mother Breast cancer Sister Lung cancer Other Mental health problem Family history of problems with anesthesia: No Surgical History Surgical History (Updated 02/12/24 @ 00:01 by Background Daemon) History of left nephrectomy (~1999) History of colonoscopy History of surgery Hx of cystoscopy History of bilateral breast reduction surgery History of hysterectomy History of cholecystectomy History of endoscopy (~06/2016) History of bladder repair surgery (~03/2015) S/P cystoscopy (~07/30/12) S/P panniculectomy History of hernia repair (~03/29/10) History of bladder surgery (~10/2009) History of gastric bypass (~2008) History of incisional hernia repair (~1999) Hx of umbilical hernia repair (~1999) H/O left nephrectomy S/P laparoscopic sleeve gastrectomy History of Problems with Anesthesia: No Social History Social History Household Members: Spouse and Family Housing: House Do you presently have visiting nurse or other home services: No Alcohol intake: never Comment: 1:1 Patient Tobacco Use Status: Never used Tobacco e-Cigarette/Vaping Use: Never Used Second Hand Smoke Exposure: No Advance Directives Date on File: 07/12/21 service: No Current occupational status: disabled Sexual orientation: Straight/Heterosexual Cognitive needs: No Hearing needs: No Vision needs: Yes Meds Allergies Allergy/AdvReac Type Severity Reaction Status Date / Time acetaminophen AdvReac Unknown Unknown Verified 01/22/24 09:01 atorvastatin AdvReac Severe elevated Uncoded 01/22/24 09:01 liver enzymes Active Medications: Current Medications Acetaminophen/Butalbital/Caffeine (Butalb/Acetamin/Caff 50/325/40 Tablet) 2 tab PO Q6H PRN PRN Reason: Migraine Headache Last Admin: 02/20/24 20:16 Dose: 2 tab Al Hydroxide/Mg Hydroxide (Magnesium Hydrox/Alum Hydrox 30 Ml Oral.Susp) 30 ml PO Q6H PRN PRN Reason: Heartburn/Nausea Albuterol Sulfate (Albuterol Sulfate 90 Mcg 8 Gm Inhaler) 2 puff INHALE RQ6H PRN PRN Reason: wheezing Apixaban (Apixaban 5 Mg Tablet) 5 mg PO BID [facility] Last Admin: 02/20/24 20:17 Dose: 5 mg Bisacodyl (Bisacodyl 5 Mg Tablet.Dr) 10 mg PO BEDTIME [facility] Last Admin: 02/20/24 20:15 Dose: 10 mg Cariprazine (Cariprazine Hcl 1.5 Mg Capsule) 1.5 mg PO DAILY [facility] Last Admin: 02/20/24 08:44 Dose: 1.5 mg Cariprazine (Cariprazine Hcl 3 Mg Capsule) 3 mg PO DAILY [facility] Last Admin: 02/20/24 08:45 Dose: 3 mg Cefuroxime Axetil (Cefuroxime Axetil 500 Mg Tablet) 500 mg PO BID [facility] Stop: 02/26/24 21:01 Last Admin: 02/20/24 20:17 Dose: 500 mg Cyanocobalamin (Cyanocobalamin (Vitamin B-12) 500 Mcg Tablet) 500 mcg PO DAILY [facility] Last Admin: 02/20/24 08:43 Dose: 500 mcg Diphenhydramine HCl (Diphenhydramine Hcl 25 Mg Capsule) 25 mg PO TID PRN PRN Reason: allergies Last Admin: 02/20/24 20:20 Dose: 25 mg Docusate Sodium (Docusate Sodium 100 Mg Capsule) 100 mg PO DAILY [facility] Last Admin: 02/20/24 08:44 Dose: 100 mg Ferrous Sulfate (Ferrous Sulfate 324 Mg Tablet.) 324 mg PO DAILY [facility] Last Admin: 02/20/24 08:45 Dose: 324 mg Gabapentin (Gabapentin 400 Mg Capsule) 800 mg PO TID [facility] Last Admin: 02/20/24 20:15 Dose: 800 mg Hydrocortisone (Hydrocortisone 2.5 % Rectal Cr 30 Gm Tube) 1 appl IA BID [facility] Last Admin: 02/20/24 20:45 Dose: Not Given Hydroxyzine HCl (Hydroxyzine Hcl 25 Mg Tablet) 25 mg PO Q6H PRN PRN Reason: Anxiety Last Admin: 02/14/24 23:00 Dose: 25 mg Lorazepam (Lorazepam 1 Mg Tablet) 1 mg PO BID PRN PRN Reason: Anxiety Last Admin: 02/20/24 06:25 Dose: 1 mg Magnesium Hydroxide (Milk Of Magnesia 30 Ml Oral.Susp) 30 ml PO DAILY PRN PRN Reason: Constipation Meclizine HCl (Meclizine Hcl 25 Mg Tablet) 25 mg PO TID PRN PRN Reason: dizziness Last Admin: 02/16/24 13:13 Dose: 25 mg Melatonin (Melatonin 3 Mg Tablet) 9 mg PO BEDTIME PRN PRN Reason: Insomnia Last Admin: 02/20/24 20:20 Dose: 9 mg Midodrine (Midodrine Hcl 10 Mg Tablet) 10 mg PO TID@0900,1300,1800 [facility] Last Admin: 02/20/24 17:31 Dose: 10 mg Mirtazapine (Mirtazapine 15 Mg Tablet) 15 mg PO BEDTIME [facility] Last Admin: 02/20/24 20:16 Dose: 15 mg Naloxone HCl (Naloxone Hcl 0.4 Mg/Ml Vial) 0.04 mg IVPUSH Q5M PRN PRN Reason: Excessive sedation or RR < 8 Nicotine Polacrilex (Nicotine Polacrilex 2 Mg Gum) 4 mg BUCCAL Q2H PRN PRN Reason: Nicotine Cravings Pt Own (Rosuvastatin (5 Mg Tablet)) 5 mg PO DAILY [facility] Last Admin: 02/20/24 08:43 Dose: 5 mg Omeprazole (Omeprazole 20 Mg Capsule.) 20 mg PO DAILY@0630 [facility] Last Admin: 02/20/24 06:25 Dose: 20 mg Risperidone (Risperidone 1 Mg Tablet) 1 mg PO BID PRN PRN Reason: AH Last Admin: 02/13/24 10:05 Dose: 1 mg Risperidone (Risperidone 2 Mg Tablet) 2 mg PO BID [facility] Last Admin: 02/20/24 20:17 Dose: 2 mg Topiramate (Topiramate 100 Mg Tablet) 100 mg PO DAILY [facility] Last Admin: 02/20/24 08:44 Dose: 100 mg Tramadol HCl (Tramadol Hcl 50 Mg Tablet) 100 mg PO Q8H PRN PRN Reason: severe pain Last Admin: 02/19/24 17:57 Dose: 100 mg Trazodone HCl (Trazodone Hcl 50 Mg Tablet) 50 mg PO BEDTIME MRX1 PRN PRN Reason: Insomnia Last Admin: 02/20/24 20:17 Dose: 50 mg Triamcinolone Acetonide (Triamcinolone Acet 0.1 % Cream 15 Gm Tube) 1 appl TOPICAL DAILY PRN PRN Reason: rash Vitamin D (Cholecalciferol (Vitamin D3) 25 Mcg Tablet) 25 mcg PO DAILY [facility] Last Admin: 02/20/24 08:45 Dose: 25 mcg Home Medications ?Medication ?Instructions ?Recorded ?Confirmed ?Last Taken ?Type lorazepam 1 mg tablet 1 mg PO BID PRN Anxiety 11/02/22 02/06/24 Unknown History potassium citrate 5 mEq (540 mg) 5 meq PO DAILY 06/13/23 02/06/24 01/21/24 History tablet,extended release melatonin 5 mg tablet 5 mg PO BEDTIME PRN Insomnia 07/14/23 02/06/24 Unknown History mirtazapine 15 mg tablet 15 mg PO BEDTIME 12/05/23 02/06/24 01/21/24 History naproxen 500 mg tablet 500 mg PO DAILY 12/05/23 02/06/24 01/21/24 History topiramate 100 mg tablet 100 mg PO DAILY 12/05/23 02/06/24 Unknown History albuterol sulfate 90 mcg/actuation 2 puff inhalation Q6H PRN wheezing 01/23/24 02/06/24 Unknown History aerosol inhaler (Ventolin HFA) diphenhydramine HCl 25 mg capsule 25 mg PO TID PRN allergies 01/23/24 02/06/24 Unknown History (Banophen) lurasidone 40 mg tablet 40 mg PO DAILY 01/23/24 02/06/24 01/21/24 History pantoprazole 40 mg tablet,delayed 40 mg PO DAILY@0630 01/23/24 02/06/24 01/21/24 History release Exam Height,Weight and Vital Signs: Height 5 ft 3 in Weight 73.3 kg Last Vital Signs Temp 97.5 F 02/20/24 20:00 Pulse 72 02/20/24 20:00 Resp 18 02/20/24 23:21 BP 111/69 02/20/24 20:00 Pulse Ox 98 02/20/24 20:00 O2 Del Method Room Air 02/20/24 20:00 O2 Flow Rate 2 02/19/24 13:06 Pertinent Lab Results Pertinent Lab Results: Laboratory Tests 02/20/24 16:33 Total Bilirubin 0.2 Direct Bilirubin < 0.2 AST 43 H ALT 61 H Alkaline Phosphatase 120 H Total Protein 6.6 Albumin 3.7 TSH 1.03 Airway Mallampati Class: II TM Dist: <=3cm Neck ROM: Full Loose/Missing/Broken Teeth: No Heart: ok Lungs: ok Assessment and Plan Assessment Anesthesia Assessment: Anesthesia Plan Discussed and Chart Reviewed Final Anesthetic Review Family History of Problems with Anesthesia: No History of Problems with Anesthesia: No NPO: Yes ASA Class: III Final Preanesthetic Review: No Changes in Pt Med Stat, Meds/Allgs Chart Reviewed, Consent Obtained/Reviewed and Anes Risks/Benef Reviewed Patient Risk: Intermediate Procedure Risk: Intermediate Anesthetic Plan Anesthetic Plan: GA and Agree w/ Assess. and Plan Disposition: Standard PACU
--- NOTE | 2024-02-21 07:30 | MHC.SHP ---
Pre-Procedural Eval Section A - 24 Hr Update-Section A only Date of Service: 02/21/24 The patient is an INPATIENT: Yes Changes since office visit: Yes Patient answered all questions; No Cold of Flu in the past 2 weeks, No New Medical Problems and No Changes in Medication The patient has been examined within 24 hours of the surgical procedure. The History & Physical has been completed within 30 days and I have reviewed it.: Yes Section B - Complete if H&P > 30 days Chief Complaint: Depression Allergies: Allergies Allergy/AdvReac Type Severity Reaction Status Date / Time acetaminophen AdvReac Unknown Unknown Verified 01/22/24 09:01 atorvastatin AdvReac Severe elevated Uncoded 01/22/24 09:01 liver enzymes Plan I have reviewed the history and physical and performed a pertinent physical examination on my patient. No changes have occurred unless specified. Time Spent With Patient Time: Total time managing care of this patient today ____ minutes.
--- NOTE | 2024-02-21 08:22 | HO.ECTPROC ---
ECT Procedure Note Diagnosis/Treatment Date of Service: 02/21/24 Previous ECT Date: 02/19/24 Current Treatment Number: 5 Treatment: Series Interval Clinical Notes: The patient reported improvement of her mood. Denies side effects with the previous ECT. ECT done with the same perimeters, seizure optimal, resolved by itself. Woke up well, no complications. Able to give continued informed consent calm cooperative less distressed Time: Total time managing care of this patient today ____ minutes. ECT Settings Device: THYMATRON DGx Electrode Placement: Right Unilateral Program/Pulse Width: 0.50 Energy Percent: 80 Seizure Duration By EEG (in seconds): 32 Medications Administration General Anesthetic: Etomidate (10) Muscle Relaxant: Succinylcholine (80) Airway Management Airway Management: Bag Mask Ventilation Treatment Recommendations No Changes Recommended: No change Pt Tolerated Procedure w/o Issue: Yes
[2024-02-21] MEDS: Midodrine HCl 10 MG TABLET PO ×2 (08:53→12:35)
[2024-02-21] MEDS: Cyanocobalamin (Vitamin B-12) 500 MCG TABLET PO (08:53)
[2024-02-21] MEDS: cefuroxime axetiL 500 MG TABLET PO ×2 (08:53→20:53)
[2024-02-21] MEDS: Apixaban 5 MG TABLET PO ×2 (08:53→20:53)
[2024-02-21] MEDS: Cariprazine HCl 1.5 MG CAPSULE PO (08:53)
[2024-02-21] MEDS: risperiDONE 2 MG TABLET PO ×2 (08:53→20:53)
[2024-02-21] MEDS: Cariprazine HCl 3 MG CAPSULE PO (08:53)
[2024-02-21] MEDS: Topiramate 100 MG TABLET PO (08:54)
[2024-02-21] MEDS: Butalb/Acetamin/Caff 50/325/40 TABLET 2 TAB PO ×3 (08:54→20:55)
[2024-02-21] MEDS: Cholecalciferol (Vitamin D3) 25 MCG TABLET PO (08:55)
[2024-02-21] MEDS: Omeprazole 20 MG CAPSULE.DR PO (08:55)
[2024-02-21] MEDS: Ferrous Sulfate 324 MG TABLET.DR PO (08:55)
[2024-02-21] MEDS: Gabapentin 400 MG CAPSULE 800 MG PO ×3 (08:55→20:53)
[2024-02-21] MEDS: Docusate Sodium 100 MG CAPSULE PO (08:58)
[2024-02-21] MEDS: ROSUVASTATIN 5 MG 5 EACH PO (09:02)
--- NOTE | 2024-02-21 10:11 | HO.PSYCHPN ---
Subjective Subjective Date of Service: 03/06/24 Reason For Visit: Depression Interim History: met with patient and autopsy pathologist; discussed with team Patient noticing that anxiety is surfacing more -pt talked about excessive worries (daughter, living situation, not being , health issues) and discussed coping strategies -reviewed Labs and LFT's improving. -continued to discuss ECT and pt wants to continue; discussed possibility of ECT from home as well Mental Status Exam Mental Status Exam Narrative: Pt is alert and oriented; behavior is cooperative, calm; dressed in casual pajamas with adequate grooming; mood is described as depressed affect downcast; eye contact avoidant; Speech remains soft volume, slowed rate; normal prosody; psychomotor retardation present; thought process is goal oriented; Thought content is on symptoms, tx; otherwise pertinent to relevant topics and without any delusional content, paranoid ideations or grandiosity; no SI; no HI; No AH Patients insight and judgment improving Diagnostics Vital Signs (24Hr): Vital Signs - 24 hr 02/20/24 12:39 02/20/24 17:25 02/20/24 20:00 Temperature 97.5 F 97.5 F Pulse Rate 69 72 Respiratory Rate 14 Blood Pressure 101/60 111/69 111/69 Pulse Oximetry 98 98 Oxygen Delivery Method Room Air Room Air Oxygen Flow Rate 02/20/24 23:21 02/21/24 06:39 02/21/24 07:55 Temperature 97.3 F 97.6 F Pulse Rate 57 70 Respiratory Rate 18 16 13 Blood Pressure 116/67 132/67 Pulse Oximetry 99 98 Oxygen Delivery Method Room Air Nasal Cannula with ETCO2 Oxygen Flow Rate 3 02/21/24 08:00 02/21/24 08:05 02/21/24 08:10 Temperature Pulse Rate 74 72 72 Respiratory Rate 13 17 17 Blood Pressure 119/73 113/71 119/65 Pulse Oximetry 100 98 100 Oxygen Delivery Method Room Air Room Air Room Air Oxygen Flow Rate 02/21/24 08:24 02/21/24 08:34 Temperature 97.4 F 97.9 F Pulse Rate 70 67 Respiratory Rate 17 16 Blood Pressure 127/61 134/67 Pulse Oximetry 99 98 Oxygen Delivery Method Room Air Oxygen Flow Rate BMI result Body Mass Index 28.5 Labs Labs: Laboratory Results - last 48 hr 02/20/24 16:33 Total Bilirubin 0.2 Direct Bilirubin < 0.2 AST 43 H ALT 61 H Alkaline Phosphatase 120 H Total Protein 6.6 Albumin 3.7 TSH 1.03 Medications Medications Current Medications Acetaminophen/Butalbital/Caffeine (Butalb/Acetamin/Caff 50/325/40 Tablet) 2 tab PO Q6H PRN PRN Reason: Migraine Headache Last Admin: 02/21/24 08:54 Dose: 2 tab Al Hydroxide/Mg Hydroxide (Magnesium Hydrox/Alum Hydrox 30 Ml Oral.Susp) 30 ml PO Q6H PRN PRN Reason: Heartburn/Nausea Albuterol Sulfate (Albuterol Sulfate 90 Mcg 8 Gm Inhaler) 2 puff INHALE RQ6H PRN PRN Reason: wheezing Apixaban (Apixaban 5 Mg Tablet) 5 mg PO BID [facility] Last Admin: 02/21/24 08:53 Dose: 5 mg Bisacodyl (Bisacodyl 5 Mg Tablet.) 10 mg PO BEDTIME [facility] Last Admin: 02/20/24 20:15 Dose: 10 mg Cariprazine (Cariprazine Hcl 1.5 Mg Capsule) 1.5 mg PO DAILY [facility] Last Admin: 02/21/24 08:53 Dose: 1.5 mg Cariprazine (Cariprazine Hcl 3 Mg Capsule) 3 mg PO DAILY [facility] Last Admin: 02/21/24 08:53 Dose: 3 mg Cefuroxime Axetil (Cefuroxime Axetil 500 Mg Tablet) 500 mg PO BID [facility] Stop: 02/26/24 21:01 Last Admin: 02/21/24 08:53 Dose: 500 mg Cyanocobalamin (Cyanocobalamin (Vitamin B-12) 500 Mcg Tablet) 500 mcg PO DAILY [facility] Last Admin: 02/21/24 08:53 Dose: 500 mcg Diphenhydramine HCl (Diphenhydramine Hcl 25 Mg Capsule) 25 mg PO TID PRN PRN Reason: allergies Last Admin: 02/20/24 20:20 Dose: 25 mg Docusate Sodium (Docusate Sodium 100 Mg Capsule) 100 mg PO DAILY [facility] Last Admin: 02/21/24 08:58 Dose: 100 mg Ferrous Sulfate (Ferrous Sulfate 324 Mg Tablet.) 324 mg PO DAILY [facility] Last Admin: 02/21/24 08:55 Dose: 324 mg Gabapentin (Gabapentin 400 Mg Capsule) 800 mg PO TID [facility] Last Admin: 02/21/24 08:55 Dose: 800 mg Hydrocortisone (Hydrocortisone 2.5 % Rectal Cr 30 Gm Tube) 1 appl [place] BID [facility] Last Admin: 02/21/24 09:03 Dose: Not Given Hydroxyzine HCl (Hydroxyzine Hcl 25 Mg Tablet) 25 mg PO Q6H PRN PRN Reason: Anxiety Last Admin: 02/14/24 23:00 Dose: 25 mg Lorazepam (Lorazepam 1 Mg Tablet) 1 mg PO BID PRN PRN Reason: Anxiety Last Admin: 02/20/24 06:25 Dose: 1 mg Magnesium Hydroxide (Milk Of Magnesia 30 Ml Oral.Susp) 30 ml PO DAILY PRN PRN Reason: Constipation Meclizine HCl (Meclizine Hcl 25 Mg Tablet) 25 mg PO TID PRN PRN Reason: dizziness Last Admin: 02/16/24 13:13 Dose: 25 mg Melatonin (Melatonin 3 Mg Tablet) 9 mg PO BEDTIME PRN PRN Reason: Insomnia Last Admin: 02/20/24 20:20 Dose: 9 mg Midodrine (Midodrine Hcl 10 Mg Tablet) 10 mg PO TID@0900,1300,1800 [facility] Last Admin: 02/21/24 08:53 Dose: 10 mg Mirtazapine (Mirtazapine 15 Mg Tablet) 15 mg PO BEDTIME [facility] Last Admin: 02/20/24 20:16 Dose: 15 mg Naloxone HCl (Naloxone Hcl 0.4 Mg/Ml Vial) 0.04 mg IVPUSH Q5M PRN PRN Reason: Excessive sedation or RR < 8 Naloxone HCl (Naloxone Hcl 0.4 Mg/Ml Vial) 0.04 mg IVPUSH Q5M PRN PRN Reason: Excessive sedation or RR < 8 Nicotine Polacrilex (Nicotine Polacrilex 2 Mg Gum) 4 mg BUCCAL Q2H PRN PRN Reason: Nicotine Cravings Pt Own (Rosuvastatin (5 Mg Tablet)) 5 mg PO DAILY [facility] Last Admin: 02/21/24 09:02 Dose: 5 mg Omeprazole (Omeprazole 20 Mg Capsule.Dr) 20 mg PO DAILY@0630 [facility] Last Admin: 02/21/24 08:55 Dose: 20 mg Risperidone (Risperidone 1 Mg Tablet) 1 mg PO BID PRN PRN Reason: AH Last Admin: 02/13/24 10:05 Dose: 1 mg Risperidone (Risperidone 2 Mg Tablet) 2 mg PO BID [facility] Last Admin: 02/21/24 08:53 Dose: 2 mg Topiramate (Topiramate 100 Mg Tablet) 100 mg PO DAILY [facility] Last Admin: 02/21/24 08:54 Dose: 100 mg Tramadol HCl (Tramadol Hcl 50 Mg Tablet) 100 mg PO Q8H PRN PRN Reason: severe pain Last Admin: 02/19/24 17:57 Dose: 100 mg Trazodone HCl (Trazodone Hcl 50 Mg Tablet) 50 mg PO BEDTIME MRX1 PRN PRN Reason: Insomnia Last Admin: 02/20/24 20:17 Dose: 50 mg Triamcinolone Acetonide (Triamcinolone Acet 0.1 % Cream 15 Gm Tube) 1 appl TOPICAL DAILY PRN PRN Reason: rash Vitamin D (Cholecalciferol (Vitamin D3) 25 Mcg Tablet) 25 mcg PO DAILY [facility] Last Admin: 02/21/24 08:55 Dose: 25 mcg Allergies Allergies Allergy/AdvReac Type Severity Reaction Status Date / Time acetaminophen AdvReac Unknown Unknown Verified 01/22/24 09:01 atorvastatin AdvReac Severe elevated Uncoded 01/22/24 09:01 liver enzymes Assessment & Plan Assessment & Plan (1) MDD (major depressive disorder), recurrent, severe, with psychosis: Status: Acute Code(s): F33.3 - Major depressive disorder, recurrent, severe with psychotic symptoms (2) Post traumatic stress disorder (PTSD): Status: Acute Code(s): F43.10 - Post-traumatic stress disorder, unspecified (3) Pulmonary embolism: Qualifiers: Pulmonary embolism type: multiple subsegmental (without acute cor pulmonale) Qualified Code(s): I26.94 - Multiple subsegmental thrombotic pulmonary emboli without acute cor pulmonale Status: Acute Code(s): I26.99 - Other pulmonary embolism without acute cor pulmonale (4) MIGUEL (obstructive sleep apnea): Status: Acute Code(s): G47.33 - Obstructive sleep apnea (adult) (pediatric) (5) Chronic kidney disease, stage III (moderate): Qualifiers: Chronic kidney disease stage 3 subtype: stage 3a (GFR 45-59) Qualified Code(s): N18.31 - Chronic kidney disease, stage 3a Status: Acute Code(s): N18.30 - Chronic kidney disease, stage 3 unspecified Plan HPI: Patient is a 53-year-old female with history of MDD with psychotic features (r/o schizoaffective disorder, depressed type) PTSD, borderline traits, kidney cancer (one kidney). She first presented for admission for worsening depression and AH. Patient was feeling overall good enough until about 4 months ago. Without any obvious trigger, and despite continued adherence to medication regimen, she reports that her mood started to decline and AH (which is present independent of mood) became worse. Patient said she started having bad thoughts.. At which she became tearful and would not disclose them. She said her mood got worse and worse and voices told her to hurt herself; she started seeing shadow figures and having horrific nightmares where sometimes she can tell if she was awake or asleep but saw a ball of fire and things burning. AH worsened this past week and so patient self presented. She denies any history of manic type behaviors; ongoing PTSD symptoms. Patient does not remember history of med trials On , patient was started on Vraylar and ECT. She only received 2 ECT trials when she developed a pulmonary embolism; patient started on anticoagulation however ECT held. A few days later patient reported left-sided weakness which was evident on exam; she was transferred to medical floor, with head/neck CT/angiogram and then MRI; patient was diagnosed with complex migraine that can mimic a stroke; patient was stabilized and returned to the unit. There were some incidental findings which included thyroid nodules that medical team thought could be followed up as an outpatient. Now stabilized, patient returns to for continued treatment for depression. Patient reports she remains very depressed and continues to have AH which are very bothersome. Patient adamantly requests to restart ECT which she was hopeful would be helpful. Formulaton/clinical reasoning: Clothes Model discussed case with patient's outpatient psychiatric provider Dr. Kathleen who has known patient for years. She reports that Patient has long history of depression, frequently severe, intermixed with PTSD symptoms, emotional reactivity; although patient endorses continue AH, Dr. Kathleen does not think necessarily an organic psychotic illness and only symptom is AH (no history of delusional thinking, no disorganized speech or behavior). Pt has had numerous medication trials with only partial response. Discussed treatment approaches and provider agrees that ECT trial is warranted; no benefit from Latuda thus far and although was only at 20 mg, agree to start Vraylar instead which maybe a little more robust in dealing with AH. Patient amenable to changing medications. [place]? only one kidney so hesitant. Also considerations are OCD/JAMIE regarding dx, although pt has AH (which IS independent of mood), she has no other psychotic symptoms HOSPITAL COURSE: 02/07 complaining of worsened command AH to kill self; tearful. Risperdal worked as PRN for few hours so she agreed to restart (failed in past). 1.continues on Vraylar 4.5mg daily: maybe helped with depression some, but AH remained 2.returned from Medical floor on Latuda (which was did not seem to help in past), but since so depressed and not sure if will get ECT, left it since monotherapy has not been effective (will leave for now, but likey dc) 3.Started on Risperdal 1mg TID since prn risperdal took away AH for a few hours 4. Currently on 3 antipsychotics but will likely dc some of them. -Regarding ECT, Discussed with Office Assistant Dr. Guthrie who reports pt does not need O2 and From a pulmonary standpoint, the patient is doing well, stable. She may proceed with anesthesia and ECT at this time as long as she can the anticoagulation without interruptions. -Discussed with Anesthesiologis Dr. Willett who agrees that pulm recs are sufficient to proceed with ECT and that pt can remain on anticoagulation dx, although pt has AH (which IS independent of mood), she has no other psychotic symptoms 02/09/24 Discussed with pt sx with interpetr hx chronic hills depression hx depression ptsd ? dissociative hills would taper latuda ect when available next few days if remains unchanged some aspects of sx are chronic with recent exacerbation pt has been able to mainsafety no sob noted 02/12 pt remains depressed but says Risperdal helps when she takes it; says this morning, AH command, upsetting but dissipated with scheduled and prn risperdal. Discussed ECT and pt wants to continue 02/13 Patient had ECT this morning and reports that she has a headache and asked for medication and was given another dose of Fioricet. She denies any AH today for which she is relieved. Discussed medication management and she agrees to increase Risperdal for now and wants to continue with ECT 02/14 Patient reports that her mood is so-so which is the best it has been since she got here. Also says no AH which makes 2 days now enroll. Patient discussed medications and ECT and wants to continue with both. Discussed how it is unclear if AH is resolving because of ECT or Risperdal but because she is doing better will continue with this medication for now -patient asked about pulmonary embolisms and data analyst report writer provided education 02/16: Continue plan of care 02/17: Continue plan of care Urine culture pending. 02/18 patient remains with significant psychomotor retardation and depression. Thankfully AH has resolved. Patient requires continue inpatient admission for continued ECT treatments. 02/19 Patient remains depressed; significant psychomotor retardation. AH remains resolved; not clear if it is due to ECT or Risperdal but given this improvement, data analyst report writer hesitant to change medication regimen; patient agrees and wants to remain on current regimen. Patient continues to have a headache though she says it is getting less Patient anxious about medical comorbidities. Discussed patient's lab work, UTI and antibiotics; discussed again nodule on thyroid and liver function -will reorder LFTs to monitor -UA positive for gram-negative rods; discussed with hospitalist and patient started on Ceftin 500 mg b.i.d. for 7 days 02/20 consider possible JAMIE diagnosis; discussed ECT and patient will continue to next week; will reassess then PLAN: CV Q 15 minute checks ECT #6 pending 02/22 (including ECT prior to PE) NPO Continue Risperdal 2mg BID for continued AH (up from 1mg TID) continue vryaler 4.5mg for depression currently on Vraylar for mood and Risperdal for AH. Numerous failed Med trials: Haldol: got tremor abilify: wt gain risperidone Geodon Cymbalta, Effexor, Lexapro, Pristiq mirtazapine lamictal Medical comorbidities: 1. L-sided weakness: Resolved, transient: complex migraine; Neuro consulted, likely complex migraine rather than CVA/TIA. Sumatriptan contraindicated; use Fioricet prn; continue topiramate 2. transaminasemia - has been a recurrent problem in past; US with Dopplers + GI cosult pending; LFTs improving; 3. recently diagnosed PE 01/31 [R main PA + segmental branches of RLL] - was started on therapeutic enoxaparin; transitioned to apixaban 4.orthostatic hypotension, chronic; - continue midodrine 5. Incidental finding on CTA: possible thinning of semicircular canals bilaterally with question of dehiscence noted on CTA, incidental (ED contacted ENT) likely transient, follow up as outpt, no further workup at this time 6. Incidental finding on CTA: thyroid nodule, incidentally noted on CTA, 1.9 cm left; outpt f/u with thyroid US 7. IBS-C; bowel regimen, outpt GI f/u 8. asthma not in acute exac; prn albuterol 9. MIGUEL; CPAP at night Patient educated on: diagnosis, medication risk/benefits, ECT and therapeutic strategies Informed Consent: understands Reason for continued inpatient stay Substantial Risk for: stable for discharge, rapid decompensation and med/psych decompensation Time Spent With Patient Time: Total time managing care of this patient today ____ minutes.
[2024-02-21] MEDS: traMADoL HCL 50 MG TABLET 100 MG PO (13:33)
[2024-02-21] MEDS: traZODone HCL 50 MG TABLET PO (20:53)
[2024-02-21] MEDS: diphenhydrAMINE HCL 25 MG CAPSULE PO (20:53)
[2024-02-21] MEDS: Mirtazapine 15 MG TABLET PO (20:54)
[2024-02-21] MEDS: Melatonin 3 MG TABLET 9 MG PO (20:54)
[2024-02-21] MEDS: bisacodyL 5 MG TABLET.DR 10 MG PO (20:54)
[2024-02-22] MEDS: Omeprazole 20 MG CAPSULE.DR PO (06:34)
[2024-02-22] MEDS: Butalb/Acetamin/Caff 50/325/40 TABLET 2 TAB PO ×3 (06:34→20:42)
[2024-02-22 07:00] VITALS: BMI 29.2
[2024-02-22 08:00] VITALS: BP 105/57; PULSE 61; RESP 18; TEMP 36.7; O2SAT 97
[2024-02-22] MEDS: Docusate Sodium 100 MG CAPSULE PO (08:20)
[2024-02-22] MEDS: Topiramate 100 MG TABLET PO (08:20)
[2024-02-22] MEDS: Gabapentin 400 MG CAPSULE 800 MG PO ×2 (08:20→14:40)
[2024-02-22 08:21] VITALS: BP 105/57
[2024-02-22] MEDS: Apixaban 5 MG TABLET PO ×2 (08:21→19:53)
[2024-02-22] MEDS: Cariprazine HCl 3 MG CAPSULE PO (08:21)
[2024-02-22] MEDS: risperiDONE 2 MG TABLET PO ×2 (08:21→19:54)
[2024-02-22] MEDS: Cholecalciferol (Vitamin D3) 25 MCG TABLET PO (08:21)
[2024-02-22] MEDS: Cariprazine HCl 1.5 MG CAPSULE PO (08:21)
[2024-02-22] MEDS: cefuroxime axetiL 500 MG TABLET PO ×2 (08:21→19:55)
[2024-02-22] MEDS: Ferrous Sulfate 324 MG TABLET.DR PO (08:21)
[2024-02-22] MEDS: Midodrine HCl 10 MG TABLET PO ×2 (08:21→14:40)
[2024-02-22] MEDS: Cyanocobalamin (Vitamin B-12) 500 MCG TABLET PO (08:21)
[2024-02-22] MEDS: traMADoL HCL 50 MG TABLET 100 MG PO ×2 (08:29→19:54)
[2024-02-22] MEDS: ROSUVASTATIN 5 MG 5 EACH PO (08:29)
--- NOTE | 2024-02-22 08:51 | HO.POSTANES ---
Post Anesthesia Evaluation Post Anesthesia Evaluation Date of Service: 02/21/24 Vital Signs: Vital Signs Temp Pulse Resp BP Pulse Ox O2 Del Method 02/22/24 08:21 105/57 L 02/22/24 08:00 98.1 F 61 18 105/57 L 97 Room Air Anesthesia: General Mental Status: Awake Pain Control: Satisfactory Nausea/Vomiting: None Hydration: Adequate
--- NOTE | 2024-02-22 10:36 | P.PNPSI_ITS ---
Subjective Subjective Date of Service: 02/22/24 Reason For Visit: Depression Subjective Notes: Conditional Voluntary Interim History: pt more stable shows clear improvement Medication Compliance: Yes Mental Status Exam Mental Status Exam Narrative: pt calm cooperative improved mood no hills no si feels better with ect no cognitive complaints logical some pov of content focused on tx Diagnostics Vital Signs (24Hr): Vital Signs - 24 hr 02/21/24 12:35 02/21/24 20:00 02/22/24 08:00 Temperature 97.1 F 98.1 F Pulse Rate 63 61 Respiratory Rate 16 18 Blood Pressure 114/66 118/68 105/57 L Pulse Oximetry 99 97 Oxygen Delivery Method Room Air Room Air 02/22/24 08:21 Temperature Pulse Rate Respiratory Rate Blood Pressure 105/57 L Pulse Oximetry Oxygen Delivery Method BMI result Body Mass Index 28.5 Labs Labs: Laboratory Results - last 48 hr 02/20/24 16:33 Total Bilirubin 0.2 Direct Bilirubin < 0.2 AST 43 H ALT 61 H Alkaline Phosphatase 120 H Total Protein 6.6 Albumin 3.7 TSH 1.03 Medications Medications Current Medications Acetaminophen/Butalbital/Caffeine (Butalb/Acetamin/Caff 50/325/40 Tablet) 2 tab PO Q6H PRN PRN Reason: Migraine Headache Last Admin: 02/22/24 06:34 Dose: 2 tab Al Hydroxide/Mg Hydroxide (Magnesium Hydrox/Alum Hydrox 30 Ml Oral.Susp) 30 ml PO Q6H PRN PRN Reason: Heartburn/Nausea Albuterol Sulfate (Albuterol Sulfate 90 Mcg 8 Gm Inhaler) 2 puff INHALE RQ6H PRN PRN Reason: wheezing Apixaban (Apixaban 5 Mg Tablet) 5 mg PO BID [facility] Last Admin: 02/22/24 08:21 Dose: 5 mg Bisacodyl (Bisacodyl 5 Mg Tablet.Dr) 10 mg PO BEDTIME [facility] Last Admin: 02/21/24 20:54 Dose: 10 mg Cariprazine (Cariprazine Hcl 1.5 Mg Capsule) 1.5 mg PO DAILY [facility] Last Admin: 02/22/24 08:21 Dose: 1.5 mg Cariprazine (Cariprazine Hcl 3 Mg Capsule) 3 mg PO DAILY [facility] Last Admin: 02/22/24 08:21 Dose: 3 mg Cefuroxime Axetil (Cefuroxime Axetil 500 Mg Tablet) 500 mg PO BID [facility] Stop: 02/26/24 21:01 Last Admin: 02/22/24 08:21 Dose: 500 mg Cyanocobalamin (Cyanocobalamin (Vitamin B-12) 500 Mcg Tablet) 500 mcg PO DAILY [facility] Last Admin: 02/22/24 08:21 Dose: 500 mcg Diphenhydramine HCl (Diphenhydramine Hcl 25 Mg Capsule) 25 mg PO TID PRN PRN Reason: allergies Last Admin: 02/21/24 20:53 Dose: 25 mg Docusate Sodium (Docusate Sodium 100 Mg Capsule) 100 mg PO DAILY [facility] Last Admin: 02/22/24 08:20 Dose: 100 mg Ferrous Sulfate (Ferrous Sulfate 324 Mg Tablet.Dr) 324 mg PO DAILY [facility] Last Admin: 02/22/24 08:21 Dose: 324 mg Gabapentin (Gabapentin 400 Mg Capsule) 800 mg PO TID [facility] Last Admin: 02/22/24 08:20 Dose: 800 mg Hydrocortisone (Hydrocortisone 2.5 % Rectal Cr 30 Gm Tube) 1 appl MA BID [facility] Last Admin: 02/22/24 08:25 Dose: Not Given Hydroxyzine HCl (Hydroxyzine Hcl 25 Mg Tablet) 25 mg PO Q6H PRN PRN Reason: Anxiety Last Admin: 02/14/24 23:00 Dose: 25 mg Lorazepam (Lorazepam 1 Mg Tablet) 1 mg PO BID PRN PRN Reason: Anxiety Last Admin: 02/20/24 06:25 Dose: 1 mg Magnesium Hydroxide (Milk Of Magnesia 30 Ml Oral.Susp) 30 ml PO DAILY PRN PRN Reason: Constipation Meclizine HCl (Meclizine Hcl 25 Mg Tablet) 25 mg PO TID PRN PRN Reason: dizziness Last Admin: 02/16/24 13:13 Dose: 25 mg Melatonin (Melatonin 3 Mg Tablet) 9 mg PO BEDTIME PRN PRN Reason: Insomnia Last Admin: 02/21/24 20:54 Dose: 9 mg Midodrine (Midodrine Hcl 10 Mg Tablet) 10 mg PO TID@0900,1300,1800 [facility] Last Admin: 02/22/24 08:21 Dose: 10 mg Mirtazapine (Mirtazapine 15 Mg Tablet) 15 mg PO BEDTIME [facility] Last Admin: 02/21/24 20:54 Dose: 15 mg Naloxone HCl (Naloxone Hcl 0.4 Mg/Ml Vial) 0.04 mg IVPUSH Q5M PRN PRN Reason: Excessive sedation or RR < 8 Naloxone HCl (Naloxone Hcl 0.4 Mg/Ml Vial) 0.04 mg IVPUSH Q5M PRN PRN Reason: Excessive sedation or RR < 8 Nicotine Polacrilex (Nicotine Polacrilex 2 Mg Gum) 4 mg BUCCAL Q2H PRN PRN Reason: Nicotine Cravings Pt Own (Rosuvastatin (5 Mg Tablet)) 5 mg PO DAILY [facility] Last Admin: 02/22/24 08:29 Dose: 5 mg Omeprazole (Omeprazole 20 Mg Capsule.Dr) 20 mg PO DAILY@0630 [facility] Last Admin: 02/22/24 06:34 Dose: 20 mg Risperidone (Risperidone 1 Mg Tablet) 1 mg PO BID PRN PRN Reason: AH Last Admin: 02/13/24 10:05 Dose: 1 mg Risperidone (Risperidone 2 Mg Tablet) 2 mg PO BID [facility] Last Admin: 02/22/24 08:21 Dose: 2 mg Topiramate (Topiramate 100 Mg Tablet) 100 mg PO DAILY [facility] Last Admin: 02/22/24 08:20 Dose: 100 mg Tramadol HCl (Tramadol Hcl 50 Mg Tablet) 100 mg PO Q8H PRN PRN Reason: severe pain Last Admin: 02/22/24 08:29 Dose: 100 mg Trazodone HCl (Trazodone Hcl 50 Mg Tablet) 50 mg PO BEDTIME MRX1 PRN PRN Reason: Insomnia Last Admin: 02/21/24 20:53 Dose: 50 mg Triamcinolone Acetonide (Triamcinolone Acet 0.1 % Cream 15 Gm Tube) 1 appl TOPICAL DAILY PRN PRN Reason: rash Vitamin D (Cholecalciferol (Vitamin D3) 25 Mcg Tablet) 25 mcg PO DAILY [facility] Last Admin: 02/22/24 08:21 Dose: 25 mcg Allergies Allergies Allergy/AdvReac Type Severity Reaction Status Date / Time acetaminophen AdvReac Unknown Unknown Verified 01/22/24 09:01 atorvastatin AdvReac Severe elevated Uncoded 01/22/24 09:01 liver enzymes Assessment & Plan Assessment & Plan (1) MDD (major depressive disorder), recurrent, severe, with psychosis: Status: Acute Code(s): F33.3 - Major depressive disorder, recurrent, severe with psychotic symptoms (2) Post traumatic stress disorder (PTSD): Status: Acute Code(s): F43.10 - Post-traumatic stress disorder, unspecified (3) Pulmonary embolism: Qualifiers: Pulmonary embolism type: multiple subsegmental (without acute cor pulmonale) Qualified Code(s): I26.94 - Multiple subsegmental thrombotic pulmonary emboli without acute cor pulmonale Status: Acute Code(s): I26.99 - Other pulmonary embolism without acute cor pulmonale (4) MIGUEL (obstructive sleep apnea): Status: Acute Code(s): G47.33 - Obstructive sleep apnea (adult) (pediatric) (5) Chronic kidney disease, stage III (moderate): Qualifiers: Chronic kidney disease stage 3 subtype: stage 3a (GFR 45-59) Qualified Code(s): N18.31 - Chronic kidney disease, stage 3a Status: Acute Code(s): N18.30 - Chronic kidney disease, stage 3 unspecified Plan HPI: Patient is a 53-year-old female with history of MDD with psychotic features (r/o schizoaffective disorder, depressed type) PTSD, borderline traits, kidney cancer (one kidney). She first presented for admission for worsening depression and AH. Patient was feeling overall good enough until about 4 months ago. Without any obvious tr igger, and despite continued adherence to medication regimen, she reports that her mood started to decline and AH (which is present independent of mood) became worse. Patient said she started having bad thoughts.. At which she became tearful and would not disclose them. She said her mood got worse and worse and voices told her to hurt herself; she started seeing shadow figures and having horrific nightmares where sometimes she can tell if she was awake or asleep but saw a ball of fire and things burning. AH worsened this past week and so patient self presented. She denies any history of manic type behaviors; ongoing PTSD symptoms. Patient does not remember history of med trials On M5, patient was started on Vraylar and ECT. She only received 2 ECT trials when she developed a pulmonary embolism; patient started on anticoagulation however ECT held. A few days later patient reported left-sided weakness which was evident on exam; she was transferred to medical floor, with head/neck CT/angiogram and then MRI; patient was diagnosed with complex migraine that can mimic a stroke; patient was stabilized and returned to the unit. There were some incidental findings which included thyroid nodules that medical team thought could be followed up as an outpatient. Now stabilized, patient returns to for continued treatment for depression. Patient reports she remains very depressed and continues to have AH which are very bothersome. Patient adamantly requests to restart ECT which she was hopeful would be helpful. Formulaton/clinical reasoning: Cork Molder discussed case with patient's outpatient psychiatric provider Dr. Kathleen who has known patient for years. She reports that Patient has long history of depression, frequently severe, intermixed with PTSD symptoms, emotional reactivity; although patient endorses continue AH, Dr. Kathleen does not think necessarily an organic psychotic illness and only symptom is AH (no history of delusional thinking, no disorganized speech or behavior). Pt has had numerous medication trials with only partial response. Discussed treatment approaches and provider agrees that ECT trial is warranted; no benefit from Latuda thus far and although was only at 20 mg, agree to start Vraylar instead which maybe a little more robust in dealing with AH. Patient amenable to changing medications. [place]? only one kidney so hesitant. Also considerations are OCD/JAMIE regarding dx, although pt has AH (which IS independent of mood), she has no other psychotic symptoms HOSPITAL COURSE: 02/07 complaining of worsened command AH to kill self; tearful. Risperdal worked as PRN for few hours so she agreed to restart (failed in past). 1.continues on Vraylar 4.5mg daily: maybe helped with depression some, but AH remained 2.returned from Medical floor on Latuda (which was did not seem to help in past), but since so depressed and not sure if will get ECT, left it since monotherapy has not been effective (will leave for now, but likey dc) 3.Started on Risperdal 1mg TID since prn risperdal took away AH for a few hours 4. Currently on 3 antipsychotics but will likely dc some of them. -Regarding ECT, Discussed with Web [employer] Developer Dr. Guthrie who reports pt does not need O2 and From a pulmonary standpoint, the patient is doing well, stable. She may proceed with anesthesia and ECT at this time as long as she can the anticoagulation without interruptions. -Discussed with Anesthesiologis Dr. Willett who agrees that pulm recs are sufficient to proceed with ECT and that pt can remain on anticoagulation dx, although pt has AH (which IS independent of mood), she has no other psychotic symptoms 02/09/24 Discussed with pt sx with interpetr hx chronic hills depression hx depression ptsd ? dissociative hills would taper latuda ect when available next few days if remains unchanged some aspects of sx are chronic with recent exacerbation pt has been able to mainsafety no sob noted 02/12 pt remains depressed but says Risperdal helps when she takes it; says this morning, AH command, upsetting but dissipated with scheduled and prn risperdal. Discussed ECT and pt wants to continue 02/13 Patient had ECT this morning and reports that she has a headache and asked for medication and was given another dose of Fioricet. She denies any AH today for which she is relieved. Discussed medication management and she agrees to increase Risperdal for now and wants to continue with ECT 02/14 Patient reports that her mood is so-so which is the best it has been since she got here. Also says no AH which makes 2 days now enroll. Patient discussed medications and ECT and wants to continue with both. Discussed how it is unclear if AH is resolving because of ECT or Risperdal but because she is doing better will continue with this medication for now -patient asked about pulmonary embolisms and senior medical writer provided education 02/16: Continue plan of care 02/17: Continue plan of care Urine culture pending. 02/18 patient remains with significant psychomotor retardation and depression. Thankfully AH has resolved. Patient requires continue inpatient admission for continued ECT treatments. 02/19 Patient remains depressed; significant psychomotor retardation. AH remains resolved; not clear if it is due to ECT or Risperdal but given this improvement, senior medical writer hesitant to change medication regimen; patient agrees and wants to remain on current regimen. Patient continues to have a headache though she says it is getting less Patient anxious about medical comorbidities. Discussed patient's lab work, UTI and antibiotics; discussed again nodule on thyroid and liver function -will reorder LFTs to monitor -UA positive for gram-negative rods; discussed with hospitalist and patient started on Ceftin 500 mg b.i.d. for 7 days 02/20 consider possible JAMIE diagnosis; discussed ECT and patient will continue to next week; will reassess then 02/22/24 cont ect pt improved PLAN: CV Q 15 minute checks ECT #6 pending 02/22 (including ECT prior to PE) NPO Continue Risperdal 2mg BID for continued AH (up from 1mg TID) continue vryaler 4.5mg for depression currently on Vraylar for mood and Risperdal for AH. Numerous failed Med trials: Haldol: got tremor abilify: wt gain risperidone Geodon Cymbalta, Effexor, Lexapro, Pristiq mirtazapine lamictal Medical comorbidities: 1. L-sided weakness: Resolved, transient: complex migraine; Neuro consulted, likely complex migraine rather than CVA/TIA. Sumatriptan contraindicated; use Fioricet prn; continue topiramate 2. transaminasemia - has been a recurrent problem in past; US with Dopplers + GI cosult pending; LFTs improving; 3. recently diagnosed PE 01/31 [R main PA + segmental branches of RLL] - was started on therapeutic enoxaparin; transitioned to apixaban 4.orthostatic hypotension, chronic; - continue midodrine 5. Incidental finding on CTA: possible thinning of semicircular canals bilaterally with question of dehiscence noted on CTA, incidental (ED contacted ENT) likely transient, follow up as outpt, no further workup at this time 6. Incidental finding on CTA: thyroid nodule, incidentally noted on CTA, 1.9 cm left; outpt f/u with thyroid US 7. IBS-C; bowel regimen, outpt GI f/u 8. asthma not in acute exac; prn albuterol 9. MIGUEL; CPAP at night Reason for continued inpatient stay Substantial Risk for: harm to self and rapid decompensation Time Spent With Patient Time: Total time managing care of this patient today ____ minutes.
[2024-02-22 14:03] VITALS: BP 106/65; PULSE 77
[2024-02-22] MEDS: traZODone HCL 50 MG TABLET PO (19:53)
[2024-02-22] MEDS: LORazepam 1 MG TABLET PO (19:53)
[2024-02-22] MEDS: Melatonin 3 MG TABLET 9 MG PO (19:54)
[2024-02-22] MEDS: diphenhydrAMINE HCL 25 MG CAPSULE PO (19:54)
[2024-02-22] MEDS: bisacodyL 5 MG TABLET.DR 10 MG PO (19:54)
[2024-02-22] MEDS: Mirtazapine 15 MG TABLET PO (19:54)
[2024-02-22 20:00] VITALS: BP 109/66; PULSE 71; RESP 16; TEMP 36.3; O2SAT 98
[2024-02-23] VITALS (11 sets, daily range): BP systolic 107–152; BP diastolic 56–87; PULSE 50–80; RESP 12–18; TEMP 36.2–36.8; O2SAT 97–100
[2024-02-23] MEDS: Omeprazole 20 MG CAPSULE.DR PO (06:52)
--- NOTE | 2024-02-23 10:04 | P.PNPSI_ITS ---
Subjective Subjective Date of Service: 02/23/24 Reason For Visit: Depression Interim History: Met with patient; discussed with team Patient started to report mood is better. Patient has significant headache following ECT and agrees to medication management. She started to ask when she can go home and agrees to continuing ECT at next weekend to reassessing then Mental Status Exam Mental Status Exam Narrative: Pt is alert and oriented; behavior is cooperative, calm; dressed in casual pajamas with adequate grooming; mood is described as okay... Better affect still downcast but less so; eye contact improve; Speech remains soft volume, slowed rate; normal prosody; still psychomotor retardation present; thought process is goal oriented; Thought content is on symptoms, tx; otherwise pertinent to relevant topics and without any delusional content, paranoid ideations or grandiosity; no SI; no HI; No AH Patients insight and judgment improving Diagnostics Vital Signs (24Hr): Vital Signs - 24 hr 02/22/24 14:03 02/22/24 20:00 02/23/24 00:39 Temperature 97.4 F Pulse Rate 77 71 Respiratory Rate 16 18 Blood Pressure 106/65 109/66 Pulse Oximetry 98 Oxygen Delivery Method Room Air BMI result Body Mass Index 29.2 Medications Medications Current Medications Acetaminophen/Butalbital/Caffeine (Butalb/Acetamin/Caff 50/325/40 Tablet) 2 tab PO Q6H PRN PRN Reason: Migraine Headache Last Admin: 02/22/24 20:42 Dose: 2 tab Al Hydroxide/Mg Hydroxide (Magnesium Hydrox/Alum Hydrox 30 Ml Oral.Susp) 30 ml PO Q6H PRN PRN Reason: Heartburn/Nausea Albuterol Sulfate (Albuterol Sulfate 90 Mcg 8 Gm Inhaler) 2 puff INHALE RQ6H PRN PRN Reason: wheezing Apixaban (Apixaban 5 Mg Tablet) 5 mg PO BID [facility] Last Admin: 02/22/24 19:53 Dose: 5 mg Bisacodyl (Bisacodyl 5 Mg Tablet.Dr) 10 mg PO BEDTIME [facility] Last Admin: 02/22/24 19:54 Dose: 10 mg Cariprazine (Cariprazine Hcl 1.5 Mg Capsule) 1.5 mg PO DAILY [facility] Last Admin: 02/22/24 08:21 Dose: 1.5 mg Cariprazine (Cariprazine Hcl 3 Mg Capsule) 3 mg PO DAILY [facility] Last Admin: 02/22/24 08:21 Dose: 3 mg Cefuroxime Axetil (Cefuroxime Axetil 500 Mg Tablet) 500 mg PO BID [facility] Stop: 02/26/24 21:01 Last Admin: 02/22/24 19:55 Dose: 500 mg Cyanocobalamin (Cyanocobalamin (Vitamin B-12) 500 Mcg Tablet) 500 mcg PO DAILY [facility] Last Admin: 02/22/24 08:21 Dose: 500 mcg Diphenhydramine HCl (Diphenhydramine Hcl 25 Mg Capsule) 25 mg PO TID PRN PRN Reason: allergies Last Admin: 02/22/24 19:54 Dose: 25 mg Docusate Sodium (Docusate Sodium 100 Mg Capsule) 100 mg PO DAILY [facility] Last Admin: 02/22/24 08:20 Dose: 100 mg Ferrous Sulfate (Ferrous Sulfate 324 Mg Tablet.Dr) 324 mg PO DAILY [facility] Last Admin: 02/22/24 08:21 Dose: 324 mg Gabapentin (Gabapentin 400 Mg Capsule) 800 mg PO TID [facility] Last Admin: 02/22/24 19:43 Dose: Not Given Hydrocortisone (Hydrocortisone 2.5 % Rectal Cr 30 Gm Tube) 1 appl [place] BID [facility] Last Admin: 02/22/24 22:52 Dose: Not Given Hydroxyzine HCl (Hydroxyzine Hcl 25 Mg Tablet) 25 mg PO Q6H PRN PRN Reason: Anxiety Last Admin: 02/14/24 23:00 Dose: 25 mg Lorazepam (Lorazepam 1 Mg Tablet) 1 mg PO BID PRN PRN Reason: Anxiety Last Admin: 02/22/24 19:53 Dose: 1 mg Magnesium Hydroxide (Milk Of Magnesia 30 Ml Oral.Susp) 30 ml PO DAILY PRN PRN Reason: Constipation Meclizine HCl (Meclizine Hcl 25 Mg Tablet) 25 mg PO TID PRN PRN Reason: dizziness Last Admin: 02/16/24 13:13 Dose: 25 mg Melatonin (Melatonin 3 Mg Tablet) 9 mg PO BEDTIME PRN PRN Reason: Insomnia Last Admin: 02/22/24 19:54 Dose: 9 mg Midodrine (Midodrine Hcl 10 Mg Tablet) 10 mg PO TID@0900,1300,1800 [facility] Last Admin: 02/22/24 18:24 Dose: Not Given Mirtazapine (Mirtazapine 15 Mg Tablet) 15 mg PO BEDTIME [facility] Last Admin: 02/22/24 19:54 Dose: 15 mg Naloxone HCl (Naloxone Hcl 0.4 Mg/Ml Vial) 0.04 mg IVPUSH Q5M PRN PRN Reason: Excessive sedation or RR < 8 Naloxone HCl (Naloxone Hcl 0.4 Mg/Ml Vial) 0.04 mg IVPUSH Q5M PRN PRN Reason: Excessive sedation or RR < 8 Nicotine Polacrilex (Nicotine Polacrilex 2 Mg Gum) 4 mg BUCCAL Q2H PRN PRN Reason: Nicotine Cravings Pt Own (Rosuvastatin (5 Mg Tablet)) 5 mg PO DAILY [facility] Last Admin: 02/22/24 08:29 Dose: 5 mg Omeprazole (Omeprazole 20 Mg Capsule.Dr) 20 mg PO DAILY@0630 [facility] Last Admin: 02/23/24 06:52 Dose: 20 mg Risperidone (Risperidone 1 Mg Tablet) 1 mg PO BID PRN PRN Reason: AH Last Admin: 02/13/24 10:05 Dose: 1 mg Risperidone (Risperidone 2 Mg Tablet) 2 mg PO BID [facility] Last Admin: 02/22/24 19:54 Dose: 2 mg Topiramate (Topiramate 100 Mg Tablet) 100 mg PO DAILY [facility] Last Admin: 02/22/24 08:20 Dose: 100 mg Tramadol HCl (Tramadol Hcl 50 Mg Tablet) 100 mg PO Q8H PRN PRN Reason: severe pain Last Admin: 02/22/24 19:54 Dose: 100 mg Trazodone HCl (Trazodone Hcl 50 Mg Tablet) 50 mg PO BEDTIME MRX1 PRN PRN Reason: Insomnia Last Admin: 02/22/24 19:53 Dose: 50 mg Triamcinolone Acetonide (Triamcinolone Acet 0.1 % Cream 15 Gm Tube) 1 appl TOPICAL DAILY PRN PRN Reason: rash Vitamin D (Cholecalciferol (Vitamin D3) 25 Mcg Tablet) 25 mcg PO DAILY [facility] Last Admin: 02/22/24 08:21 Dose: 25 mcg Allergies Allergies Allergy/AdvReac Type Severity Reaction Status Date / Time acetaminophen AdvReac Unknown Unknown Verified 01/22/24 09:01 atorvastatin AdvReac Severe elevated Uncoded 01/22/24 09:01 liver enzymes Assessment & Plan Assessment & Plan (1) MDD (major depressive disorder), recurrent, severe, with psychosis: Status: Acute Code(s): F33.3 - Major depressive disorder, recurrent, severe with psychotic symptoms (2) Post traumatic stress disorder (PTSD): Status: Acute Code(s): F43.10 - Post-traumatic stress disorder, unspecified (3) Pulmonary embolism: Qualifiers: Pulmonary embolism type: multiple subsegmental (without acute cor pulmonale) Qualified Code(s): I26.94 - Multiple subsegmental thrombotic pulmonary emboli without acute cor pulmonale Status: Acute Code(s): I26.99 - Other pulmonary embolism without acute cor pulmonale (4) MIGUEL (obstructive sleep apnea): Status: Acute Code(s): G47.33 - Obstructive sleep apnea (adult) (pediatric) (5) Chronic kidney disease, stage III (moderate): Qualifiers: Chronic kidney disease stage 3 subtype: stage 3a (GFR 45-59) Qualified Code(s): N18.31 - Chronic kidney disease, stage 3a Status: Acute Code(s): N18.30 - Chronic kidney disease, stage 3 unspecified Plan HPI: Patient is a 53-year-old female with history of MDD with psychotic features (r/o schizoaffective disorder, depressed type) PTSD, borderline traits, kidney cancer (one kidney). She first presented for admission for worsening depression and AH. Patient was feeling overall good enough until about 4 months ago. Without any obvious trigger, and despite continued adherence to medication regimen, she reports that her mood started to decline and AH (which is present independent of mood) became worse. Patient said she started having bad thoughts.. At which she became tearful and would not disclose them. She said her mood got worse and worse and voices told her to hurt herself; she started seeing shadow figures and having horrific nightmares where sometimes she can tell if she was awake or asleep but saw a ball of fire and things burning. AH worsened this past week and so patient self presented. She denies any history of manic type behaviors; ongoing PTSD symptoms. Patient does not remember history of med trials On M5, patient was started on Vraylar and ECT. She only received 2 ECT trials when she developed a pulmonary embolism; patient started on anticoagulation however ECT held. A few days later patient reported left-sided weakness which was evident on exam; she was transferred to medical floor, with head/neck CT/angiogram and then MRI; patient was diagnosed with complex migraine that can mimic a stroke; patient was stabilized and returned to the unit. There were some incidental findings which included thyroid nodules that medical team thought could be followed up as an outpatient. Now stabilized, patient returns to for continued treatment for depression. Patient reports she remains very depressed and continues to have AH which are very bothersome. Patient adamantly requests to restart ECT which she was hopeful would be helpful. Formulaton/clinical reasoning: Airborne Sensor Specialist discussed case with patient's outpatient psychiatric provider Dr. Kathleen who has known patient for years. She reports that Patient has long history of depression, frequently severe, intermixed with PTSD symptoms, emotional reactivity; although patient endorses continue AH, Dr. Kathleen does not think necessarily an organic psychotic illness and only symptom is AH (no history of delusional thinking, no disorganized speech or behavior). Pt has had numerous medication trials with only partial response. Discussed treatment approaches and provider agrees that ECT trial is warranted; no benefit from Latuda thus far and although was only at 20 mg, agree to start Vraylar instead which maybe a little more robust in dealing with AH. Patient amenable to changing medications. [place]? only one kidney so hesitant. Also considerations are OCD/JAMIE regarding dx, although pt has AH (which IS independent of mood), she has no other psychotic symptoms HOSPITAL COURSE: 02/07 complaining of worsened command AH to kill self; tearful. Risperdal worked as PRN for few hours so she agreed to restart (failed in past). 1.continues on Vraylar 4.5mg daily: maybe helped with depression some, but AH remained 2.returned from Medical floor on Latuda (which was did not seem to help in past), but since so depressed and not sure if will get ECT, left it since monotherapy has not been effective (will leave for now, but likey dc) 3.Started on Risperdal 1mg TID since prn risperdal took away AH for a few hours 4. Currently on 3 antipsychotics but will likely dc some of them. -Regarding ECT, Discussed with Carburetor Rebuilder Dr. Guthrie who reports pt does not need O2 and From a pulmonary standpoint, the patient is doing well, stable. She may proceed with anesthesia and ECT at this time as long as she can the anticoagulation without interruptions. -Discussed with Anesthesiologis Dr. Willett who agrees that pulm recs are sufficient to proceed with ECT and that pt can remain on anticoagulation dx, although pt has AH (which IS independent of mood), she has no other psychotic symptoms 02/09/24 Discussed with pt sx with interpetr hx chronic hills depression hx depression ptsd ? dissociative hills would taper latuda ect when available next few days if remains unchanged some aspects of sx are chronic with recent exacerbation pt has been able to mainsafety no sob noted 02/12 pt remains depressed but says Risperdal helps when she takes it; says this morning, AH command, upsetting but dissipated with scheduled and prn risperdal. Discussed ECT and pt wants to continue 02/13 Patient had ECT this morning and reports that she has a headache and asked for medication and was given another dose of Fioricet. She denies any AH today for which she is relieved. Discussed medication management and she agrees to increase Risperdal for now and wants to continue with ECT 02/14 Patient reports that her mood is so-so which is the best it has been since she got here. Also says no AH which makes 2 days now enroll. Patient discussed medications and ECT and wants to continue with both. Discussed how it is unclear if AH is resolving because of ECT or Risperdal but because she is doing better will continue with this medication for now -patient asked about pulmonary embolisms and comic book writer provided education 02/16: Continue plan of care 02/17: Continue plan of care Urine culture pending. 02/18 patient remains with significant psychomotor retardation and depression. Thankfully AH has resolved. Patient requires continue inpatient admission for continued ECT treatments. 02/19 Patient remains depressed; significant psychomotor retardation. AH remains resolved; not clear if it is due to ECT or Risperdal but given this improvement, comic book writer hesitant to change medication regimen; patient agrees and wants to remain on current regimen. Patient continues to have a headache though she says it is getting less Patient anxious about medical comorbidities. Discussed patient's lab work, UTI and antibiotics; discussed again nodule on thyroid and liver function -will reorder LFTs to monitor -UA positive for gram-negative rods; discussed with hospitalist and patient started on Ceftin 500 mg b.i.d. for 7 days 02/20 consider possible JAMIE diagnosis; discussed ECT and patient will continue to next week; will reassess then 02/22/24 cont ect pt improved 02/22 continue treatment plan and ECT; patient does seem to be improving, mood is getting better and affect started to be brighter PLAN: CV Q 15 minute checks ECT #5 pending 02/25 (NOT including 1x ECT prior to PE) NPO Continue Risperdal 2mg BID for continued AH (up from 1mg TID) continue vryaler 4.5mg for depression currently on Vraylar for mood and Risperdal for AH. Numerous failed Med trials: Haldol: got tremor abilify: wt gain risperidone Geodon Cymbalta, Effexor, Lexapro, Pristiq mirtazapine lamictal Medical comorbidities: 1. L-sided weakness: Resolved, transient: complex migraine; Neuro consulted, likely complex migraine rather than CVA/TIA. Sumatriptan contraindicated; use Fioricet prn; continue topiramate 2. transaminasemia - has been a recurrent problem in past; US with Dopplers + GI cosult pending; LFTs improving; 3. recently diagnosed PE 01/31 [R main PA + segmental branches of RLL] - was started on therapeutic enoxaparin; transitioned to apixaban 4.orthostatic hypotension, chronic; - continue midodrine 5. Incidental finding on CTA: possible thinning of semicircular canals bilaterally with question of dehiscence noted on CTA, incidental (ED contacted ENT) likely transient, follow up as outpt, no further workup at this time 6. Incidental finding on CTA: thyroid nodule, incidentally noted on CTA, 1.9 cm left; outpt f/u with thyroid US 7. IBS-C; bowel regimen, outpt GI f/u 8. asthma not in acute exac; prn albuterol 9. MIGUEL; CPAP at night Patient educated on: diagnosis, medication risk/benefits, ECT and medical condition Informed Consent: understands Reason for continued inpatient stay Substantial Risk for: rapid decompensation Time Spent With Patient Time: Total time managing care of this patient today ____ minutes.
--- NOTE | 2024-02-23 13:24 | MHC.SHP ---
Pre-Procedural Eval Section A - 24 Hr Update-Section A only Date of Service: 02/23/24 The patient is an INPATIENT: Yes Changes since office visit: Yes Patient answered all questions; No Cold of Flu in the past 2 weeks, No New Medical Problems and No Changes in Medication The patient has been examined within 24 hours of the surgical procedure. The History & Physical has been completed within 30 days and I have reviewed it.: Yes Section B - Complete if H&P > 30 days Chief Complaint: Depression Allergies: Allergies Allergy/AdvReac Type Severity Reaction Status Date / Time acetaminophen AdvReac Unknown Unknown Verified 01/22/24 09:01 atorvastatin AdvReac Severe elevated Uncoded 01/22/24 09:01 liver enzymes Plan I have reviewed the history and physical and performed a pertinent physical examination on my patient. No changes have occurred unless specified. Time Spent With Patient Time: Total time managing care of this patient today ____ minutes.
--- NOTE | 2024-02-23 13:36 | HO.ECTPROC ---
ECT Procedure Note Diagnosis/Treatment Date of Service: 02/23/24 Previous ECT Date: 02/21/24 Current Treatment Number: 6 Treatment: Series Interval Clinical Notes: The patient reported improvement of her mood. Denies side effects with the previous ECT. ECT done with the same perimeters, seizure optimal, resolved by itself. Woke up well, no complications. Able to give continued informed consent calm cooperative less distressed Has been beneficial Time: Total time managing care of this patient today __30__ minutes. ECT Settings Device: THYMATRON DGx Electrode Placement: Right Unilateral Program/Pulse Width: 0.50 Energy Percent: 80 Seizure Duration By EEG (in seconds): 44 Medications Administration General Anesthetic: Etomidate (10) Muscle Relaxant: Succinylcholine (80) Airway Management Airway Management: Bag Mask Ventilation Treatment Recommendations No Changes Recommended: No change Pt Tolerated Procedure w/o Issue: Yes
[2024-02-23] MEDS: Midodrine HCl 10 MG TABLET PO (15:31)
[2024-02-23] MEDS: oxyCODONE HCl Immed Release 5 MG TABLET PO (15:31)
[2024-02-23] MEDS: Topiramate 100 MG TABLET PO (15:32)
[2024-02-23] MEDS: Gabapentin 400 MG CAPSULE 800 MG PO ×2 (15:32→20:26)
[2024-02-23] MEDS: cefuroxime axetiL 500 MG TABLET PO ×2 (15:33→20:26)
[2024-02-23] MEDS: Cholecalciferol (Vitamin D3) 25 MCG TABLET PO (15:33)
[2024-02-23] MEDS: Cariprazine HCl 3 MG CAPSULE PO (15:33)
[2024-02-23] MEDS: Docusate Sodium 100 MG CAPSULE PO (15:33)
[2024-02-23] MEDS: ROSUVASTATIN 5 MG 5 EACH PO (15:33)
[2024-02-23] MEDS: Cariprazine HCl 1.5 MG CAPSULE PO (15:33)
[2024-02-23] MEDS: Ferrous Sulfate 324 MG TABLET.DR PO (15:34)
[2024-02-23] MEDS: Cyanocobalamin (Vitamin B-12) 500 MCG TABLET PO (15:34)
[2024-02-23] MEDS: risperiDONE 2 MG TABLET PO ×2 (15:34→20:26)
[2024-02-23] MEDS: Apixaban 5 MG TABLET PO ×2 (15:34→20:28)
[2024-02-23] MEDS: Butalb/Acetamin/Caff 50/325/40 TABLET 2 TAB PO ×2 (17:34→20:26)
[2024-02-23] MEDS: bisacodyL 5 MG TABLET.DR 10 MG PO (20:26)
[2024-02-23] MEDS: Mirtazapine 15 MG TABLET PO (20:26)
[2024-02-23] MEDS: traZODone HCL 50 MG TABLET PO (20:26)
--- NOTE | 2024-02-24 03:25 | PC.NURSE ---
1800 Midodrine had not been administered. Held per order specifications stating Do not give last dose of day after 6 pm or within 4 hours of bedtime. JOANNA Pollard consulted, JOANNA Pollard concurred.
[2024-02-24 04:05] VITALS: RESP 16
[2024-02-24] MEDS: traMADoL HCL 50 MG TABLET 100 MG PO ×2 (06:28→15:26)
[2024-02-24] MEDS: Omeprazole 20 MG CAPSULE.DR PO (06:28)
[2024-02-24 08:00] VITALS: BP 118/64; PULSE 70; RESP 20; TEMP 37.1; O2SAT 98
[2024-02-24] MEDS: Gabapentin 400 MG CAPSULE 800 MG PO ×3 (09:19→20:54)
[2024-02-24] MEDS: Ferrous Sulfate 324 MG TABLET.DR PO (09:20)
[2024-02-24] MEDS: Midodrine HCl 10 MG TABLET PO ×3 (09:20→17:47)
[2024-02-24] MEDS: Cholecalciferol (Vitamin D3) 25 MCG TABLET PO (09:20)
[2024-02-24] MEDS: Apixaban 5 MG TABLET PO ×2 (09:20→20:55)
[2024-02-24] MEDS: Cariprazine HCl 1.5 MG CAPSULE PO (09:20)
[2024-02-24] MEDS: Topiramate 100 MG TABLET PO (09:21)
[2024-02-24] MEDS: Docusate Sodium 100 MG CAPSULE PO (09:21)
[2024-02-24] MEDS: Cyanocobalamin (Vitamin B-12) 500 MCG TABLET PO (09:21)
[2024-02-24] MEDS: risperiDONE 2 MG TABLET PO ×2 (09:21→20:55)
[2024-02-24] MEDS: Cariprazine HCl 3 MG CAPSULE PO (09:21)
[2024-02-24] MEDS: cefuroxime axetiL 500 MG TABLET PO ×2 (09:21→20:55)
[2024-02-24] MEDS: ROSUVASTATIN 5 MG 5 EACH PO (09:22)
--- NOTE | 2024-02-24 11:05 | HO.PSYCHPN ---
Subjective Subjective Date of Service: 02/24/24 Reason For Visit: Depression Interim History: Continues to show improvement with mood with ECT. Having some headaches. Today complaining of abdominal discomfort/pain. No N/V/fever. Right-middle abdomen. No SI. Review of Systems Review of Systems UTI sx Yes all other systems are reviewed and are negative Constitutional: Denies fever(s) Reports system reviewed and no additional complaints, except as documented Cardiovascular: Denies chest pain and Denies dyspnea Respiratory: Denies dyspnea and Denies wheezing Gastrointestinal: Reports no additional gastrointestinal complaints Musculoskeletal: Reports no additional musculoskeletal complaints Psychiatric: Reports as per HPI Hematologic/Lymphatic: Reports no additional hematologic/lymphatic complaints Allergic/Immunologic: Denies wheezing Mental Status Exam Mental Status Exam Narrative: pt calm cooperative improved mood no hills no si feels better with ect no cognitive complaints logical some pov of content focused on tx Patient Appearance: Fatigued Patient Orientation: Person, Place and Situation Level of Consciousness: Alert Patient Behavior: Appropriate Mood Description: Constricted Affect Description: Constricted Ability to Follow Directions: Good Speech Pattern: Spontaneous Speech Diagnostics Vital Signs (24Hr): Vital Signs - 24 hr 02/23/24 12:27 02/23/24 13:40 02/23/24 13:45 Temperature 97.3 F 97.6 F Pulse Rate 67 50 62 Respiratory Rate 18 12 16 Blood Pressure 113/65 152/84 H 148/86 H Pulse Oximetry 99 100 100 Oxygen Delivery Method Room Air Nasal Cannula with ETCO2 Nasal Cannula with ETCO2 Oxygen Flow Rate 2 2 02/23/24 13:50 02/23/24 13:55 02/23/24 14:10 Temperature 97.1 F Pulse Rate 75 78 76 Respiratory Rate 16 16 16 Blood Pressure 150/87 H 140/82 H 123/68 Pulse Oximetry 98 97 97 Oxygen Delivery Method Room Air Room Air Room Air Oxygen Flow Rate 02/23/24 14:25 02/23/24 15:29 02/23/24 20:00 Temperature 97.1 F 97.9 F 98.3 F Pulse Rate 72 80 71 Respiratory Rate 16 16 Blood Pressure 125/72 122/73 107/56 L Pulse Oximetry 97 98 97 Oxygen Delivery Method Room Air Room Air Oxygen Flow Rate 02/24/24 04:05 02/24/24 08:00 Temperature 98.7 F Pulse Rate 70 Respiratory Rate 16 20 Blood Pressure 118/64 Pulse Oximetry 98 Oxygen Delivery Method Room Air Oxygen Flow Rate BMI result Body Mass Index 29.2 Medications Medications Current Medications Acetaminophen/Butalbital/Caffeine (Butalb/Acetamin/Caff 50/325/40 Tablet) 2 tab PO Q6H PRN PRN Reason: Migraine Headache Last Admin: 02/23/24 17:34 Dose: 2 tab Al Hydroxide/Mg Hydroxide (Magnesium Hydrox/Alum Hydrox 30 Ml Oral.Susp) 30 ml PO Q6H PRN PRN Reason: Heartburn/Nausea Albuterol Sulfate (Albuterol Sulfate 90 Mcg 8 Gm Inhaler) 2 puff INHALE RQ6H PRN PRN Reason: wheezing Apixaban (Apixaban 5 Mg Tablet) 5 mg PO BID [facility] Last Admin: 02/24/24 09:20 Dose: 5 mg Bisacodyl (Bisacodyl 5 Mg Tablet.) 10 mg PO BEDTIME [facility] Last Admin: 02/23/24 20:26 Dose: 10 mg Cariprazine (Cariprazine Hcl 1.5 Mg Capsule) 1.5 mg PO DAILY [facility] Last Admin: 02/24/24 09:20 Dose: 1.5 mg Cariprazine (Cariprazine Hcl 3 Mg Capsule) 3 mg PO DAILY [facility] Last Admin: 02/24/24 09:21 Dose: 3 mg Cefuroxime Axetil (Cefuroxime Axetil 500 Mg Tablet) 500 mg PO BID [facility] Stop: 02/26/24 21:01 Last Admin: 02/24/24 09:21 Dose: 500 mg Cyanocobalamin (Cyanocobalamin (Vitamin B-12) 500 Mcg Tablet) 500 mcg PO DAILY [facility] Last Admin: 02/24/24 09:21 Dose: 500 mcg Diphenhydramine HCl (Diphenhydramine Hcl 25 Mg Capsule) 25 mg PO TID PRN PRN Reason: allergies Last Admin: 02/22/24 19:54 Dose: 25 mg Docusate Sodium (Docusate Sodium 100 Mg Capsule) 100 mg PO DAILY [facility] Last Admin: 02/24/24 09:21 Dose: 100 mg Ferrous Sulfate (Ferrous Sulfate 324 Mg Tablet.) 324 mg PO DAILY [facility] Last Admin: 02/24/24 09:20 Dose: 324 mg Gabapentin (Gabapentin 400 Mg Capsule) 800 mg PO TID [facility] Last Admin: 02/24/24 09:19 Dose: 800 mg Hydrocortisone (Hydrocortisone 2.5 % Rectal Cr 30 Gm Tube) 1 appl TN BID [facility] Last Admin: 02/24/24 09:23 Dose: Not Given Hydroxyzine HCl (Hydroxyzine Hcl 25 Mg Tablet) 25 mg PO Q6H PRN PRN Reason: Anxiety Last Admin: 02/14/24 23:00 Dose: 25 mg Lorazepam (Lorazepam 1 Mg Tablet) 1 mg PO BID PRN PRN Reason: Anxiety Last Admin: 02/22/24 19:53 Dose: 1 mg Magnesium Hydroxide (Milk Of Magnesia 30 Ml Oral.Susp) 30 ml PO DAILY PRN PRN Reason: Constipation Meclizine HCl (Meclizine Hcl 25 Mg Tablet) 25 mg PO TID PRN PRN Reason: dizziness Last Admin: 02/16/24 13:13 Dose: 25 mg Melatonin (Melatonin 3 Mg Tablet) 9 mg PO BEDTIME PRN PRN Reason: Insomnia Last Admin: 02/22/24 19:54 Dose: 9 mg Midodrine (Midodrine Hcl 10 Mg Tablet) 10 mg PO TID@0900,1300,1800 [facility] Last Admin: 02/24/24 09:20 Dose: 10 mg Mirtazapine (Mirtazapine 15 Mg Tablet) 15 mg PO BEDTIME [facility] Last Admin: 02/23/24 20:26 Dose: 15 mg Naloxone HCl (Naloxone Hcl 0.4 Mg/Ml Vial) 0.04 mg IVPUSH Q5M PRN PRN Reason: Excessive sedation or RR < 8 Naloxone HCl (Naloxone Hcl 0.4 Mg/Ml Vial) 0.04 mg IVPUSH Q5M PRN PRN Reason: Excessive sedation or RR < 8 Nicotine Polacrilex (Nicotine Polacrilex 2 Mg Gum) 4 mg BUCCAL Q2H PRN PRN Reason: Nicotine Cravings Pt Own (Rosuvastatin (5 Mg Tablet)) 5 mg PO DAILY [facility] Last Admin: 02/24/24 09:22 Dose: 5 mg Omeprazole (Omeprazole 20 Mg Capsule.) 20 mg PO DAILY@0630 [facility] Last Admin: 02/24/24 06:28 Dose: 20 mg Risperidone (Risperidone 1 Mg Tablet) 1 mg PO BID PRN PRN Reason: AH Last Admin: 02/13/24 10:05 Dose: 1 mg Risperidone (Risperidone 2 Mg Tablet) 2 mg PO BID [facility] Last Admin: 02/24/24 09:21 Dose: 2 mg Topiramate (Topiramate 100 Mg Tablet) 100 mg PO DAILY [facility] Last Admin: 02/24/24 09:21 Dose: 100 mg Tramadol HCl (Tramadol Hcl 50 Mg Tablet) 100 mg PO Q8H PRN PRN Reason: severe pain Last Admin: 02/24/24 06:28 Dose: 100 mg Trazodone HCl (Trazodone Hcl 50 Mg Tablet) 50 mg PO BEDTIME MRX1 PRN PRN Reason: Insomnia Last Admin: 02/23/24 20:26 Dose: 50 mg Triamcinolone Acetonide (Triamcinolone Acet 0.1 % Cream 15 Gm Tube) 1 appl TOPICAL DAILY PRN PRN Reason: rash Vitamin D (Cholecalciferol (Vitamin D3) 25 Mcg Tablet) 25 mcg PO DAILY [facility] Last Admin: 02/24/24 09:20 Dose: 25 mcg Allergies Allergies Allergy/AdvReac Type Severity Reaction Status Date / Time acetaminophen AdvReac Unknown Unknown Verified 01/22/24 09:01 atorvastatin AdvReac Severe elevated Uncoded 01/22/24 09:01 liver enzymes Assessment & Plan Assessment & Plan (1) MDD (major depressive disorder), recurrent, severe, with psychosis: Status: Acute Code(s): F33.3 - Major depressive disorder, recurrent, severe with psychotic symptoms (2) Post traumatic stress disorder (PTSD): Status: Acute Code(s): F43.10 - Post-traumatic stress disorder, unspecified (3) Pulmonary embolism: Qualifiers: Pulmonary embolism type: multiple subsegmental (without acute cor pulmonale) Qualified Code(s): I26.94 - Multiple subsegmental thrombotic pulmonary emboli without acute cor pulmonale Status: Acute Code(s): I26.99 - Other pulmonary embolism without acute cor pulmonale (4) MIGUEL (obstructive sleep apnea): Status: Acute Code(s): G47.33 - Obstructive sleep apnea (adult) (pediatric) (5) Chronic kidney disease, stage III (moderate): Qualifiers: Chronic kidney disease stage 3 subtype: stage 3a (GFR 45-59) Qualified Code(s): N18.31 - Chronic kidney disease, stage 3a Status: Acute Code(s): N18.30 - Chronic kidney disease, stage 3 unspecified Plan HPI: Patient is a 53-year-old female with history of MDD with psychotic features (r/o schizoaffective disorder, depressed type) PTSD, borderline traits, kidney cancer (one kidney). She first presented for admission for worsening depression and AH. Patient was feeling overall good enough until about 4 months ago. Without any obvious trigger, and despite continued adherence to medication regimen, she reports that her mood started to decline and AH (which is present independent of mood) became worse. Patient said she started having bad thoughts.. At which she became tearful and would not disclose them. She said her mood got worse and worse and voices told her to hurt herself; she started seeing shadow figures and having horrific nightmares where sometimes she can tell if she was awake or asleep but saw a ball of fire and things burning. AH worsened this past week and so patient self presented. She denies any history of manic type behaviors; ongoing PTSD symptoms. Patient does not remember history of med trials On M5, patient was started on Vraylar and ECT. She only received 2 ECT trials when she developed a pulmonary embolism; patient started on anticoagulation however ECT held. A few days later patient reported left-sided weakness which was evident on exam; she was transferred to medical floor, with head/neck CT/angiogram and then MRI; patient was diagnosed with complex migraine that can mimic a stroke; patient was stabilized and returned to the unit. There were some incidental findings which included thyroid nodules that medical team thought could be followed up as an outpatient. Now stabilized, patient returns to for continued treatment for depression. Patient reports she remains very depressed and continues to have AH which are very bothersome. Patient adamantly requests to restart ECT which she was hopeful would be helpful. Formulaton/clinical reasoning: Security Solutions Engineer discussed case with patient's outpatient psychiatric provider Dr. Kathleen who has known patient for years. She reports that Patient has long history of depression, frequently severe, intermixed with PTSD symptoms, emotional reactivity; although patient endorses continue AH, Dr. Kathleen does not think necessarily an organic psychotic illness and only symptom is AH (no history of delusional thinking, no disorganized speech or behavior). Pt has had numerous medication trials with only partial response. Discussed treatment approaches and provider agrees that ECT trial is warranted; no benefit from Latuda thus far and although was only at 20 mg, agree to start Vraylar instead which maybe a little more robust in dealing with AH. Patient amenable to changing medications. [place]? only one kidney so hesitant. Also considerations are OCD/JAMIE regarding dx, although pt has AH (which IS independent of mood), she has no other psychotic symptoms HOSPITAL COURSE: 02/07 complaining of worsened command AH to kill self; tearful. Risperdal worked as PRN for few hours so she agreed to restart (failed in past). 1.continues on Vraylar 4.5mg daily: maybe helped with depression some, but AH remained 2.returned from Medical floor on Latuda (which was did not seem to help in past), but since so depressed and not sure if will get ECT, left it since monotherapy has not been effective (will leave for now, but likey dc) 3.Started on Risperdal 1mg TID since prn risperdal took away AH for a few hours 4. Currently on 3 antipsychotics but will likely dc some of them. -Regarding ECT, Discussed with Dishwashing Machine Repairer Dr. Guthrie who reports pt does not need O2 and From a pulmonary standpoint, the patient is doing well, stable. She may proceed with anesthesia and ECT at this time as long as she can the anticoagulation without interruptions. -Discussed with Anesthesiologis Dr. Willett who agrees that pulm recs are sufficient to proceed with ECT and that pt can remain on anticoagulation dx, although pt has AH (which IS independent of mood), she has no other psychotic symptoms 02/09/24 Discussed with pt sx with interpetr hx chronic hills depression hx depression ptsd ? dissociative hills would taper latuda ect when available next few days if remains unchanged some aspects of sx are chronic with recent exacerbation pt has been able to mainsafety no sob noted 02/12 pt remains depressed but says Risperdal helps when she takes it; says this morning, AH command, upsetting but dissipated with scheduled and prn risperdal. Discussed ECT and pt wants to continue 02/13 Patient had ECT this morning and reports that she has a headache and asked for medication and was given another dose of Fioricet. She denies any AH today for which she is relieved. Discussed medication management and she agrees to increase Risperdal for now and wants to continue with ECT 02/14 Patient reports that her mood is so-so which is the best it has been since she got here. Also says no AH which makes 2 days now enroll. Patient discussed medications and ECT and wants to continue with both. Discussed how it is unclear if AH is resolving because of ECT or Risperdal but because she is doing better will continue with this medication for now -patient asked about pulmonary embolisms and display card writer provided education 02/16: Continue plan of care 02/17: Continue plan of care Urine culture pending. 02/18 patient remains with significant psychomotor retardation and depression. Thankfully AH has resolved. Patient requires continue inpatient admission for continued ECT treatments. 02/19 Patient remains depressed; significant psychomotor retardation. AH remains resolved; not clear if it is due to ECT or Risperdal but given this improvement, display card writer hesitant to change medication regimen; patient agrees and wants to remain on current regimen. Patient continues to have a headache though she says it is getting less Patient anxious about medical comorbidities. Discussed patient's lab work, UTI and antibiotics; discussed again nodule on thyroid and liver function -will reorder LFTs to monitor -UA positive for gram-negative rods; discussed with hospitalist and patient started on Ceftin 500 mg b.i.d. for 7 days 02/20 consider possible JAMIE diagnosis; discussed ECT and patient will continue to next week; will reassess then 02/22/24 cont ect pt improved 02/23: Continue current management and treatment plan. Maalox. If no improvement, consider medical consult. PLAN: CV Q 15 minute checks ECT #5 pending 02/25 (NOT including 1x ECT prior to PE) NPO Continue Risperdal 2mg BID for continued AH (up from 1mg TID) continue vryaler 4.5mg for depression currently on Vraylar for mood and Risperdal for AH. Numerous failed Med trials: Haldol: got tremor abilify: wt gain risperidone Geodon Cymbalta, Effexor, Lexapro, Pristiq mirtazapine lamictal Medical comorbidities: 1. L-sided weakness: Resolved, transient: complex migraine; Neuro consulted, likely complex migraine rather than CVA/TIA. Sumatriptan contraindicated; use Fioricet prn; continue topiramate 2. transaminasemia - has been a recurrent problem in past; US with Dopplers + GI cosult pending; LFTs improving; 3. recently diagnosed PE 01/31 [R main PA + segmental branches of RLL] - was started on therapeutic enoxaparin; transitioned to apixaban 4.orthostatic hypotension, chronic; - continue midodrine 5. Incidental finding on CTA: possible thinning of semicircular canals bilaterally with question of dehiscence noted on CTA, incidental (ED contacted ENT) likely transient, follow up as outpt, no further workup at this time 6. Incidental finding on CTA: thyroid nodule, incidentally noted on CTA, 1.9 cm left; outpt f/u with thyroid US 7. IBS-C; bowel regimen, outpt GI f/u 8. asthma not in acute exac; prn albuterol 9. MIGUEL; CPAP at night Reason for continued inpatient stay Substantial Risk for: inability to function and rapid decompensation Time Spent With Patient Time: Total time managing care of this patient today ____ minutes.
[2024-02-24] MEDS: Butalb/Acetamin/Caff 50/325/40 TABLET 2 TAB PO ×2 (12:10→20:56)
[2024-02-24] MEDS: LORazepam 1 MG TABLET PO (14:18)
[2024-02-24] MEDS: hydrOXYzine HCL 25 MG TABLET PO (14:18)
[2024-02-24] MEDS: Magnesium Hydrox/Alum Hydrox 30 ML ORAL.SUSP PO (15:24)
[2024-02-24 17:45] VITALS: BP 105/65; PULSE 76
[2024-02-24 20:00] VITALS: BP 111/74; PULSE 74; TEMP 36.7; O2SAT 97
[2024-02-24] MEDS: bisacodyL 5 MG TABLET.DR 10 MG PO (20:55)
[2024-02-24] MEDS: Mirtazapine 15 MG TABLET PO (20:55)
[2024-02-24] MEDS: traZODone HCL 50 MG TABLET PO (20:55)
[2024-02-24] MEDS: Melatonin 3 MG TABLET 9 MG PO (20:59)
[2024-02-24 23:42] VITALS: RESP 20
[2024-02-25] MEDS: Omeprazole 20 MG CAPSULE.DR PO (07:01)
[2024-02-25] MEDS: Apixaban 5 MG TABLET PO ×2 (08:56→20:21)
[2024-02-25] MEDS: risperiDONE 2 MG TABLET PO ×2 (08:56→20:19)
[2024-02-25] MEDS: Docusate Sodium 100 MG CAPSULE PO (08:56)
[2024-02-25] MEDS: Cyanocobalamin (Vitamin B-12) 500 MCG TABLET PO (08:56)
[2024-02-25] MEDS: Cariprazine HCl 3 MG CAPSULE PO (08:56)
[2024-02-25] MEDS: Topiramate 100 MG TABLET PO (08:56)
[2024-02-25] MEDS: cefuroxime axetiL 500 MG TABLET PO ×2 (08:56→20:22)
[2024-02-25] MEDS: ROSUVASTATIN 5 MG 5 EACH PO (08:56)
[2024-02-25] MEDS: Ferrous Sulfate 324 MG TABLET.DR PO (08:57)
[2024-02-25] MEDS: Midodrine HCl 10 MG TABLET PO ×3 (08:57→17:48)
[2024-02-25] MEDS: Cariprazine HCl 1.5 MG CAPSULE PO (08:57)
[2024-02-25] MEDS: Gabapentin 400 MG CAPSULE 800 MG PO ×3 (08:57→20:21)
[2024-02-25 09:05] VITALS: BP 124/59; PULSE 64; RESP 18; TEMP 36.6; O2SAT 99
[2024-02-25] MEDS: Cholecalciferol (Vitamin D3) 25 MCG TABLET PO (10:29)
--- NOTE | 2024-02-25 11:39 | P.PNPSI_ITS ---
Subjective Subjective Date of Service: 02/25/24 Reason For Visit: Depression Interim History: Continues to show improvement with mood with ECT. No headaches today. Having some continued right sided abdominal pain. No N/V/diarrhea/fever. Aware of ECT tomorrow. Review of Systems Review of Systems UTI sx Yes all other systems are reviewed and are negative Constitutional: Denies fever(s) Reports system reviewed and no additional complaints, except as documented Cardiovascular: Denies chest pain and Denies dyspnea Respiratory: Denies dyspnea and Denies wheezing Gastrointestinal: Reports no additional gastrointestinal complaints Musculoskeletal: Reports no additional musculoskeletal complaints Psychiatric: Reports as per HPI Hematologic/Lymphatic: Reports no additional hematologic/lymphatic complaints Allergic/Immunologic: Denies wheezing Mental Status Exam Mental Status Exam Narrative: pt calm cooperative improved mood no hills no si feels better with ect no cognitive complaints logical some pov of content focused on tx Patient Appearance: Fatigued Patient Orientation: Person, Place and Situation Level of Consciousness: Alert Patient Behavior: Appropriate Mood Description: Constricted Affect Description: Constricted Ability to Follow Directions: Good Speech Pattern: Spontaneous Speech Diagnostics Vital Signs (24Hr): Vital Signs - 24 hr 02/24/24 17:45 02/24/24 20:00 02/24/24 23:42 Temperature 98.0 F Pulse Rate 76 74 Respiratory Rate 20 Blood Pressure 105/65 111/74 Pulse Oximetry 97 Oxygen Delivery Method Room Air Room Air 02/25/24 09:05 Temperature 97.8 F Pulse Rate 64 Respiratory Rate 18 Blood Pressure 124/59 L Pulse Oximetry 99 Oxygen Delivery Method Room Air BMI result Body Mass Index 29.2 Medications Medications Current Medications Acetaminophen/Butalbital/Caffeine (Butalb/Acetamin/Caff 50/325/40 Tablet) 2 tab PO Q6H PRN PRN Reason: Migraine Headache Last Admin: 02/24/24 20:56 Dose: 2 tab Al Hydroxide/Mg Hydroxide (Magnesium Hydrox/Alum Hydrox 30 Ml Oral.Susp) 30 ml PO Q6H PRN PRN Reason: Heartburn/Nausea Last Admin: 02/24/24 15:24 Dose: 30 ml Albuterol Sulfate (Albuterol Sulfate 90 Mcg 8 Gm Inhaler) 2 puff INHALE RQ6H PRN PRN Reason: wheezing Apixaban (Apixaban 5 Mg Tablet) 5 mg PO BID JYOTHI Last Admin: 02/25/24 08:56 Dose: 5 mg Bisacodyl (Bisacodyl 5 Mg Tablet.Dr) 10 mg PO BEDTIME [facility] Last Admin: 02/24/24 20:55 Dose: 10 mg Cariprazine (Cariprazine Hcl 1.5 Mg Capsule) 1.5 mg PO DAILY [facility] Last Admin: 02/25/24 08:57 Dose: 1.5 mg Cariprazine (Cariprazine Hcl 3 Mg Capsule) 3 mg PO DAILY [facility] Last Admin: 02/25/24 08:56 Dose: 3 mg Cefuroxime Axetil (Cefuroxime Axetil 500 Mg Tablet) 500 mg PO BID [facility] Stop: 02/26/24 21:01 Last Admin: 02/25/24 08:56 Dose: 500 mg Cyanocobalamin (Cyanocobalamin (Vitamin B-12) 500 Mcg Tablet) 500 mcg PO DAILY [facility] Last Admin: 02/25/24 08:56 Dose: 500 mcg Diphenhydramine HCl (Diphenhydramine Hcl 25 Mg Capsule) 25 mg PO TID PRN PRN Reason: allergies Last Admin: 02/22/24 19:54 Dose: 25 mg Docusate Sodium (Docusate Sodium 100 Mg Capsule) 100 mg PO DAILY [facility] Last Admin: 02/25/24 08:56 Dose: 100 mg Ferrous Sulfate (Ferrous Sulfate 324 Mg Tablet.Dr) 324 mg PO DAILY [facility] Last Admin: 02/25/24 08:57 Dose: 324 mg Gabapentin (Gabapentin 400 Mg Capsule) 800 mg PO TID [facility] Last Admin: 02/25/24 08:57 Dose: 800 mg Hydrocortisone (Hydrocortisone 2.5 % Rectal Cr 30 Gm Tube) 1 appl KS BID [facility] Last Admin: 02/25/24 09:01 Dose: Not Given Hydroxyzine HCl (Hydroxyzine Hcl 25 Mg Tablet) 25 mg PO Q6H PRN PRN Reason: Anxiety Last Admin: 02/24/24 14:18 Dose: 25 mg Lorazepam (Lorazepam 1 Mg Tablet) 1 mg PO BID PRN PRN Reason: Anxiety Last Admin: 02/24/24 14:18 Dose: 1 mg Magnesium Hydroxide (Milk Of Magnesia 30 Ml Oral.Susp) 30 ml PO DAILY PRN PRN Reason: Constipation Meclizine HCl (Meclizine Hcl 25 Mg Tablet) 25 mg PO TID PRN PRN Reason: dizziness Last Admin: 02/16/24 13:13 Dose: 25 mg Melatonin (Melatonin 3 Mg Tablet) 9 mg PO BEDTIME PRN PRN Reason: Insomnia Last Admin: 02/24/24 20:59 Dose: 9 mg Midodrine (Midodrine Hcl 10 Mg Tablet) 10 mg PO TID@0900,1300,1800 [facility] Last Admin: 02/25/24 08:57 Dose: 10 mg Mirtazapine (Mirtazapine 15 Mg Tablet) 15 mg PO BEDTIME [facility] Last Admin: 02/24/24 20:55 Dose: 15 mg Naloxone HCl (Naloxone Hcl 0.4 Mg/Ml Vial) 0.04 mg IVPUSH Q5M PRN PRN Reason: Excessive sedation or RR < 8 Naloxone HCl (Naloxone Hcl 0.4 Mg/Ml Vial) 0.04 mg IVPUSH Q5M PRN PRN Reason: Excessive sedation or RR < 8 Nicotine Polacrilex (Nicotine Polacrilex 2 Mg Gum) 4 mg BUCCAL Q2H PRN PRN Reason: Nicotine Cravings Pt Own (Rosuvastatin (5 Mg Tablet)) 5 mg PO DAILY [facility] Last Admin: 02/25/24 08:56 Dose: 5 mg Omeprazole (Omeprazole 20 Mg Capsule.Dr) 20 mg PO DAILY@0630 [facility] Last Admin: 02/25/24 07:01 Dose: 20 mg Risperidone (Risperidone 1 Mg Tablet) 1 mg PO BID PRN PRN Reason: AH Last Admin: 02/13/24 10:05 Dose: 1 mg Risperidone (Risperidone 2 Mg Tablet) 2 mg PO BID [facility] Last Admin: 02/25/24 08:56 Dose: 2 mg Topiramate (Topiramate 100 Mg Tablet) 100 mg PO DAILY [facility] Last Admin: 02/25/24 08:56 Dose: 100 mg Tramadol HCl (Tramadol Hcl 50 Mg Tablet) 100 mg PO Q8H PRN PRN Reason: severe pain Last Admin: 02/24/24 15:26 Dose: 100 mg Trazodone HCl (Trazodone Hcl 50 Mg Tablet) 50 mg PO BEDTIME MRX1 PRN PRN Reason: Insomnia Last Admin: 02/24/24 20:55 Dose: 50 mg Triamcinolone Acetonide (Triamcinolone Acet 0.1 % Cream 15 Gm Tube) 1 appl TOPICAL DAILY PRN PRN Reason: rash Vitamin D (Cholecalciferol (Vitamin D3) 25 Mcg Tablet) 25 mcg PO DAILY [facility] Last Admin: 02/25/24 10:29 Dose: 25 mcg Allergies Allergies Allergy/AdvReac Type Severity Reaction Status Date / Time acetaminophen AdvReac Unknown Unknown Verified 01/22/24 09:01 atorvastatin AdvReac Severe elevated Uncoded 01/22/24 09:01 liver enzymes Assessment & Plan Assessment & Plan (1) MDD (major depressive disorder), recurrent, severe, with psychosis: Status: Acute Code(s): F33.3 - Major depressive disorder, recurrent, severe with psychotic symptoms (2) Post traumatic stress disorder (PTSD): Status: Acute Code(s): F43.10 - Post-traumatic stress disorder, unspecified (3) Pulmonary embolism: Qualifiers: Pulmonary embolism type: multiple subsegmental (without acute cor pulmonale) Qualified Code(s): I26.94 - Multiple subsegmental thrombotic pulmona ry emboli without acute cor pulmonale Status: Acute Code(s): I26.99 - Other pulmonary embolism without acute cor pulmonale (4) MIGUEL (obstructive sleep apnea): Status: Acute Code(s): G47.33 - Obstructive sleep apnea (adult) (pediatric) (5) Chronic kidney disease, stage III (moderate): Qualifiers: Chronic kidney disease stage 3 subtype: stage 3a (GFR 45-59) Qualified Code(s): N18.31 - Chronic kidney disease, stage 3a Status: Acute Code(s): N18.30 - Chronic kidney disease, stage 3 unspecified Plan HPI: Patient is a 53-year-old female with history of MDD with psychotic features (r/o schizoaffective disorder, depressed type) PTSD, borderline traits, kidney cancer (one kidney). She first presented for admission for worsening depression and AH. Patient was feeling overall good enough until about 4 months ago. Without any obvious trigger, and despite continued adherence to medication regimen, she reports that her mood started to decline and AH (which is present independent of mood) became worse. Patient said she started having bad thoughts.. At which she became tearful and would not disclose them. She said her mood got worse and worse and voices told her to hurt herself; she started seeing shadow figures and having horrific nightmares where sometimes she can tell if she was awake or asleep but saw a ball of fire and things burning. AH worsened this past week and so patient self presented. She denies any history of manic type behaviors; ongoing PTSD symptoms. Patient does not remember history of med trials On M5, patient was started on Vraylar and ECT. She only received 2 ECT trials when she developed a pulmonary embolism; patient started on anticoagulation however ECT held. A few days later patient reported left-sided weakness which was evident on exam; she was transferred to medical floor, with head/neck CT/angiogram and then MRI; patient was diagnosed with complex migraine that can mimic a stroke; patient was stabilized and returned to the unit. There were some incidental findings which included thyroid nodules that medical team thought could be followed up as an outpatient. Now stabilized, patient returns to for continued treatment for depression. Patient reports she remains very depressed and continues to have AH which are very bothersome. Patient adamantly requests to restart ECT which she was hopeful would be helpful. Formulaton/clinical reasoning: Operations Engineer discussed case with patient's outpatient psychiatric provider Dr. Kathleen who has known patient for years. She reports that Patient has long history of depression, frequently severe, intermixed with PTSD symptoms, emotional reactivity; although patient endorses continue AH, Dr. Kathleen does not think necessarily an organic psychotic illness and only symptom is AH (no history of delusional thinking, no disorganized speech or behavior). Pt has had numerous medication trials with only partial response. Discussed treatment approaches and provider agrees that ECT trial is warranted; no benefit from Latuda thus far and although was only at 20 mg, agree to start Vraylar instead which maybe a little more robust in dealing with AH. Patient amenable to changing medications. [place]? only one kidney so hesitant. Also considerations are OCD/JAMIE regarding dx, although pt has AH (which IS independent of mood), she has no other psychotic symptoms HOSPITAL COURSE: 02/07 complaining of worsened command AH to kill self; tearful. Risperdal worked as PRN for few hours so she agreed to restart (failed in past). 1.continues on Vraylar 4.5mg daily: maybe helped with depression some, but AH remained 2.returned from Medical floor on Latuda (which was did not seem to help in past), but since so depressed and not sure if will get ECT, left it since monotherapy has not been effective (will leave for now, but likey dc) 3.Started on Risperdal 1mg TID since prn risperdal took away AH for a few hours 4. Currently on 3 antipsychotics but will likely dc some of them. -Regarding ECT, Discussed with [facility]esh Man Dr. Guthrie who reports pt does not need O2 and From a pulmonary standpoint, the patient is doing well, stable. She may proceed with anesthesia and ECT at this time as long as she can the anticoagulation without interruptions. -Discussed with Anesthesiologis Dr. Willett who agrees that pulm recs are sufficient to proceed with ECT and that pt can remain on anticoagulation dx, although pt has AH (which IS independent of mood), she has no other psychotic symptoms 02/09/24 Discussed with pt sx with interpetr hx chronic hills depression hx depression ptsd ? dissociative hills would taper latuda ect when available next few days if remains unchanged some aspects of sx are chronic with recent exacerbation pt has been able to mainsafety no sob noted 02/12 pt remains depressed but says Risperdal helps when she takes it; says this morning, AH command, upsetting but dissipated with scheduled and prn risperdal. Discussed ECT and pt wants to continue 02/13 Patient had ECT this morning and reports that she has a headache and asked for medication and was given another dose of Fioricet. She denies any AH today for which she is relieved. Discussed medication management and she agrees to increase Risperdal for now and wants to continue with ECT 02/14 Patient reports that her mood is so-so which is the best it has been since she got here. Also says no AH which makes 2 days now enroll. Patient discussed medications and ECT and wants to continue with both. Discussed how it is unclear if AH is resolving because of ECT or Risperdal but because she is doing better will continue with this medication for now -patient asked about pulmonary embolisms and racebook writer provided education 02/16: Continue plan of care 02/17: Continue plan of care Urine culture pending. 02/18 patient remains with significant psychomotor retardation and depression. Thankfully AH has resolved. Patient requires continue inpatient admission for continued ECT treatments. 02/19 Patient remains depressed; significant psychomotor retardation. AH remains resolved; not clear if it is due to ECT or Risperdal but given this improvement, racebook writer hesitant to change medication regimen; patient agrees and wants to remain on current regimen. Patient continues to have a headache though she says it is getting less Patient anxious about medical comorbidities. Discussed patient's lab work, UTI and antibiotics; discussed again nodule on thyroid and liver function -will reorder LFTs to monitor -UA positive for gram-negative rods; discussed with hospitalist and patient started on Ceftin 500 mg b.i.d. for 7 days 02/20 consider possible JAMIE diagnosis; discussed ECT and patient will continue to next week; will reassess then 02/22/24 cont ect pt improved 02/23: Continue current management and treatment plan. Maalox. If no improvement, consider medical consult. 02/24: Check LFT's, Abd US, repeat UA. Continue other management and treatment plan. PLAN: CV Q 15 minute checks ECT #5 pending 02/25 (NOT including 1x ECT prior to PE) NPO Continue Risperdal 2mg BID for continued AH (up from 1mg TID) continue vryaler 4.5mg for depression currently on Vraylar for mood and Risperdal for AH. Numerous failed Med trials: Haldol: got tremor abilify: wt gain risperidone Geodon Cymbalta, Effexor, Lexapro, Pristiq mirtazapine lamictal Medical comorbidities: 1. L-sided weakness: Resolved, transient: complex migraine; Neuro consulted, likely complex migraine rather than CVA/TIA. Sumatriptan contraindicated; use Fioricet prn; continue topiramate 2. transaminasemia - has been a recurrent problem in past; US with Dopplers + GI cosult pending; LFTs improving; 3. recently diagnosed PE 01/31 [R main PA + segmental branches of RLL] - was started on therapeutic enoxaparin; transitioned to apixaban 4.orthostatic hypotension, chronic; - continue midodrine 5. Incidental finding on CTA: possible thinning of semicircular canals bilaterally with question of dehiscence noted on CTA, incidental (ED contacted ENT) likely transient, follow up as outpt, no further workup at this time 6. Incidental finding on CTA: thyroid nodule, incidentally noted on CTA, 1.9 cm left; outpt f/u with thyroid US 7. IBS-C; bowel regimen, outpt GI f/u 8. asthma not in acute exac; prn albuterol 9. MIGUEL; CPAP at night Reason for continued inpatient stay Substantial Risk for: inability to function and rapid decompensation Time Spent With Patient Time: Total time managing care of this patient today ____ minutes.
[2024-02-25] MEDS: Butalb/Acetamin/Caff 50/325/40 TABLET 2 TAB PO ×2 (12:08→19:03)
[2024-02-25 13:18] VITALS: BP 119/58
[2024-02-25 16:21] LABS: Appearance Urine Clear; Color Urine Yellow; Glucose Urine UA Negative (Negative); Leukocyte Esterase Urine Negative (Negative); Nitrite Urine Negative (Negative); Specific Gravity - Urine 1.015 (1.005-1.025); UMIC TRIGGER UACC YES; Urine Blood Small (1+) (Negative); Urine Ketones Negative (Negative); Urine Protein Negative (Neg-Trace)
[2024-02-25 16:48] LABS: Alanine Aminotransferase 136 U/L (0-31); Albumin Level 3.8 g/dL (3.5-5.0); Alkaline Phosphatase 135 U/L (39-117); Aspartate Amino Transferase 83 U/L (5-31); Bilirubin Direct < 0.2 mg/dL (0.0-0.5); Bilirubin Total 0.2 mg/dL (0.0-1.0); Total Protein 6.7 g/dL (6.5-8.0)
[2024-02-25 17:02] LABS: Bacteria Urine Trace (None Seen); Hyaline Casts Urine 0-2 /LPF (0-2); RBC Urine >20 /HPF (0-2); Squamous Epithelial Cell Urine 0-2 /HPF (0-2); WBC Urine 0-5 /HPF (0-5)
[2024-02-25 17:48] VITALS: BP 107/60
[2024-02-25 20:00] VITALS: BP 120/68; PULSE 80; TEMP 36.5; O2SAT 99
[2024-02-25] MEDS: Melatonin 3 MG TABLET 9 MG PO (20:18)
[2024-02-25] MEDS: bisacodyL 5 MG TABLET.DR 10 MG PO (20:19)
[2024-02-25] MEDS: Mirtazapine 15 MG TABLET PO (20:19)
[2024-02-25] MEDS: traZODone HCL 50 MG TABLET PO (20:19)
[2024-02-25] MEDS: diphenhydrAMINE HCL 25 MG CAPSULE PO (20:21)
[2024-02-26] VITALS (13 sets, daily range): BP systolic 116–167; BP diastolic 41–99; PULSE 60–79; RESP 16–18; TEMP 36.6–36.8; O2SAT 97–99
[2024-02-26] MEDS: Omeprazole 20 MG CAPSULE.DR PO (09:15)
[2024-02-26] MEDS: cefuroxime axetiL 500 MG TABLET PO ×2 (09:17→20:57)
[2024-02-26] MEDS: Apixaban 5 MG TABLET PO ×2 (09:17→20:58)
[2024-02-26] MEDS: Midodrine HCl 10 MG TABLET PO ×2 (09:28→17:48)
--- NOTE | 2024-02-26 10:10 | P.PNPSI_ITS ---
Subjective Subjective Date of Service: 02/26/24 Reason For Visit: Depression Interim History: Met with patient; discussed with team; reviewed chart Patient reports mood is better and she is feeling better she has in quite a long time. Grateful for ECT; discussed potential discharge and maintenance ECT however patient agrees to have Dr. Broussard offer recommendations Mental Status Exam Mental Status Exam Narrative: Pt is alert and oriented; behavior is cooperative, calm; dressed in casual attire with adequate grooming; mood is described as Better affect still noticeably brighter; eye contact appropriate; Speech remains soft volume, but normal rate and prosody; no psychomotor retardation present; thought process is goal oriented; Thought content is on symptoms, tx; otherwise pertinent to relevant topics and without any delusional content, paranoid ideations or grandiosity; no SI; no HI; No AH Patients insight and judgment fair Diagnostics Vital Signs (24Hr): Vital Signs - 24 hr 02/25/24 13:18 02/25/24 17:48 02/25/24 20:00 Temperature 97.7 F Pulse Rate 80 Respiratory Rate Blood Pressure 119/58 L 107/60 120/68 Pulse Oximetry 99 Oxygen Delivery Method Room Air 02/26/24 00:09 02/26/24 09:28 Temperature Pulse Rate Respiratory Rate 18 Blood Pressure 123/78 Pulse Oximetry Oxygen Delivery Method BMI result Body Mass Index 29.2 Labs Labs: Laboratory Results - last 48 hr 02/25/24 02/25/24 16:02 16:29 Total Bilirubin 0.2 Direct Bilirubin < 0.2 AST 83 H ALT 136 H Alkaline Phosphatase 135 H Total Protein 6.7 Albumin 3.8 Urine Color Yellow Urine Appearance Clear Urine pH 6.0 Ur Specific Carney 1.015 Urine Protein Negative Urine Glucose (UA) Negative Urine Ketones Negative Urine Blood Small (1+) H Urine Nitrite Negative Ur Leukocyte Esterase Negative Urine RBC >20 H Urine WBC 0-5 Ur Squamous Epith Cells 0-2 Urine Bacteria Trace Hyaline Casts 0-2 Medications Medications Current Medications Acetaminophen/Butalbital/Caffeine (Butalb/Acetamin/Caff 50/325/40 Tablet) 2 tab PO Q6H PRN PRN Reason: Migraine Headache Last Admin: 02/25/24 19:03 Dose: 2 tab Al Hydroxide/Mg Hydroxide (Magnesium Hydrox/Alum Hydrox 30 Ml Oral.Susp) 30 ml PO Q6H PRN PRN Reason: Heartburn/Nausea Last Admin: 02/24/24 15:24 Dose: 30 ml Albuterol Sulfate (Albuterol Sulfate 90 Mcg 8 Gm Inhaler) 2 puff INHALE RQ6H PRN PRN Reason: wheezing Apixaban (Apixaban 5 Mg Tablet) 5 mg PO BID [facility] Last Admin: 02/26/24 09:17 Dose: 5 mg Bisacodyl (Bisacodyl 5 Mg Tablet.) 10 mg PO BEDTIME [facility] Last Admin: 02/25/24 20:19 Dose: 10 mg Cariprazine (Cariprazine Hcl 1.5 Mg Capsule) 1.5 mg PO DAILY [facility] Last Admin: 02/25/24 08:57 Dose: 1.5 mg Cariprazine (Cariprazine Hcl 3 Mg Capsule) 3 mg PO DAILY [facility] Last Admin: 02/25/24 08:56 Dose: 3 mg Cefuroxime Axetil (Cefuroxime Axetil 500 Mg Tablet) 500 mg PO BID [facility] Stop: 02/26/24 21:01 Last Admin: 02/26/24 09:17 Dose: 500 mg Cyanocobalamin (Cyanocobalamin (Vitamin B-12) 500 Mcg Tablet) 500 mcg PO DAILY [facility] Last Admin: 02/25/24 08:56 Dose: 500 mcg Diphenhydramine HCl (Diphenhydramine Hcl 25 Mg Capsule) 25 mg PO TID PRN PRN Reason: allergies Last Admin: 02/25/24 20:21 Dose: 25 mg Docusate Sodium (Docusate Sodium 100 Mg Capsule) 100 mg PO DAILY [facility] Last Admin: 02/25/24 08:56 Dose: 100 mg Ferrous Sulfate (Ferrous Sulfate 324 Mg Tablet.) 324 mg PO DAILY [facility] Last Admin: 02/25/24 08:57 Dose: 324 mg Gabapentin (Gabapentin 400 Mg Capsule) 800 mg PO TID [facility] Last Admin: 02/25/24 20:21 Dose: 800 mg Hydrocortisone (Hydrocortisone 2.5 % Rectal Cr 30 Gm Tube) 1 appl KS BID [facility] Last Admin: 02/25/24 20:55 Dose: Not Given Hydroxyzine HCl (Hydroxyzine Hcl 25 Mg Tablet) 25 mg PO Q6H PRN PRN Reason: Anxiety Last Admin: 02/24/24 14:18 Dose: 25 mg Lorazepam (Lorazepam 1 Mg Tablet) 1 mg PO BID PRN PRN Reason: Anxiety Last Admin: 02/24/24 14:18 Dose: 1 mg Magnesium Hydroxide (Milk Of Magnesia 30 Ml Oral.Susp) 30 ml PO DAILY PRN PRN Reason: Constipation Meclizine HCl (Meclizine Hcl 25 Mg Tablet) 25 mg PO TID PRN PRN Reason: dizziness Last Admin: 02/16/24 13:13 Dose: 25 mg Melatonin (Melatonin 3 Mg Tablet) 9 mg PO BEDTIME PRN PRN Reason: Insomnia Last Admin: 02/25/24 20:18 Dose: 9 mg Midodrine (Midodrine Hcl 10 Mg Tablet) 10 mg PO TID@0900,1300,1800 [facility] Last Admin: 02/26/24 09:28 Dose: 10 mg Mirtazapine (Mirtazapine 15 Mg Tablet) 15 mg PO BEDTIME [facility] Last Admin: 02/25/24 20:19 Dose: 15 mg Naloxone HCl (Naloxone Hcl 0.4 Mg/Ml Vial) 0.04 mg IVPUSH Q5M PRN PRN Reason: Excessive sedation or RR < 8 Naloxone HCl (Naloxone Hcl 0.4 Mg/Ml Vial) 0.04 mg IVPUSH Q5M PRN PRN Reason: Excessive sedation or RR < 8 Nicotine Polacrilex (Nicotine Polacrilex 2 Mg Gum) 4 mg BUCCAL Q2H PRN PRN Reason: Nicotine Cravings Pt Own (Rosuvastatin (5 Mg Tablet)) 5 mg PO DAILY [facility] Last Admin: 02/25/24 08:56 Dose: 5 mg Omeprazole (Omeprazole 20 Mg Capsule.Dr) 20 mg PO DAILY@0630 [facility] Last Admin: 02/26/24 09:15 Dose: 20 mg Risperidone (Risperidone 1 Mg Tablet) 1 mg PO BID PRN PRN Reason: AH Last Admin: 02/13/24 10:05 Dose: 1 mg Risperidone (Risperidone 2 Mg Tablet) 2 mg PO BID [facility] Last Admin: 02/25/24 20:19 Dose: 2 mg Topiramate (Topiramate 100 Mg Tablet) 100 mg PO DAILY [facility] Last Admin: 02/25/24 08:56 Dose: 100 mg Tramadol HCl (Tramadol Hcl 50 Mg Tablet) 100 mg PO Q8H PRN PRN Reason: severe pain Last Admin: 02/24/24 15:26 Dose: 100 mg Trazodone HCl (Trazodone Hcl 50 Mg Tablet) 50 mg PO BEDTIME MRX1 PRN PRN Reason: Insomnia Last Admin: 02/25/24 20:19 Dose: 50 mg Triamcinolone Acetonide (Triamcinolone Acet 0.1 % Cream 15 Gm Tube) 1 appl TOPICAL DAILY PRN PRN Reason: rash Vitamin D (Cholecalciferol (Vitamin D3) 25 Mcg Tablet) 25 mcg PO DAILY [facility] Last Admin: 02/25/24 10:29 Dose: 25 mcg Allergies Allergies Allergy/AdvReac Type Severity Reaction Status Date / Time acetaminophen AdvReac Unknown Unknown Verified 01/22/24 09:01 atorvastatin AdvReac Severe elevated Uncoded 01/22/24 09:01 liver enzymes Assessment & Plan Assessment & Plan (1) MDD (major depressive disorder), recurrent, severe, with psychosis: Status: Acute Code(s): F33.3 - Major depressive disorder, recurrent, severe with psychotic symptoms (2) Post traumatic stress disorder (PTSD): Status: Acute Code(s): F43.10 - Post-traumatic stress disorder, unspecified (3) Pulmonary embolism: Qualifiers: Pulmonary embolism type: multiple subsegmental (without acute cor pulmon [place]) Qualified Code(s): I26.94 - Multiple subsegmental thrombotic pulmonary emboli without acute cor pulmonale Status: Acute Code(s): I26.99 - Other pulmonary embolism without acute cor pulmonale (4) MIGUEL (obstructive sleep apnea): Status: Acute Code(s): G47.33 - Obstructive sleep apnea (adult) (pediatric) (5) Chronic kidney disease, stage III (moderate): Qualifiers: Chronic kidney disease stage 3 subtype: stage 3a (GFR 45-59) Qualified Code(s): N18.31 - Chronic kidney disease, stage 3a Status: Acute Code(s): N18.30 - Chronic kidney disease, stage 3 unspecified Plan HPI: Patient is a 53-year-old female with history of MDD with psychotic features (r/o schizoaffective disorder, depressed type) PTSD, borderline traits, kidney cancer (one kidney). She first presented for admission for worsening depression and AH. Patient was feeling overall good enough until about 4 months ago. Without any obvious trigger, and despite continued adherence to medication regimen, she reports that her mood started to decline and AH (which is present independent of mood) became worse. Patient said she started having bad thoughts.. At which she became tearful and would not disclose them. She said her mood got worse and worse and voices told her to hurt herself; she started seeing shadow figures and having horrific nightmares where sometimes she can tell if she was awake or asleep but saw a ball of fire and things burning. AH worsened this past week and so patient self presented. She denies any history of manic type behaviors; ongoing PTSD symptoms. Patient does not remember history of med trials On M5, patient was started on Vraylar and ECT. She only received 2 ECT trials when she developed a pulmonary embolism; patient started on anticoagulation however ECT held. A few days later patient reported left-sided weakness which was evident on exam; she was transferred to medical floor, with head/neck CT/angiogram and then MRI; patient was diagnosed with complex migraine that can mimic a stroke; patient was stabilized and returned to the unit. There were some incidental findings which included thyroid nodules that medical team thought could be followed up as an outpatient. Now stabilized, patient returns to for continued treatment for depression. Patient reports she remains very depressed and continues to have AH which are very bothersome. Patient adamantly requests to restart ECT which she was hopeful would be helpful. Formulaton/clinical reasoning: Business Objects Report Developer discussed case with patient's outpatient psychiatric provider Dr. Kathleen who has known patient for years. She reports that Patient has long history of depression, frequently severe, intermixed with PTSD symptoms, emotional reactivity; although patient endorses continue AH, Dr. Kathleen does not think necessarily an organic psychotic illness and only symptom is AH (no history of delusional thinking, no disorganized speech or behavior). Pt has had numerous medication trials with only partial response. Discussed treatment approaches and provider agrees that ECT trial is warranted; no benefit from Latuda thus far and although was only at 20 mg, agree to start Vraylar instead which maybe a little more robust in dealing with AH. Patient amenable to changing medications. [place]? only one kidney so hesitant. Also considerations are OCD/JAMIE regarding dx, although pt has AH (which IS independent of mood), she has no other psychotic symptoms HOSPITAL COURSE: 02/07 complaining of worsened command AH to kill self; tearful. Risperdal worked as PRN for few hours so she agreed to restart (failed in past). 1.continues on Vraylar 4.5mg daily: maybe helped with depression some, but AH remained 2.returned from Medical floor on Latuda (which was did not seem to help in past), but since so depressed and not sure if will get ECT, left it since monotherapy has not been effective (will leave for now, but likey dc) 3.Started on Risperdal 1mg TID since prn risperdal took away AH for a few hours 4. Currently on 3 antipsychotics but will likely dc some of them. -Regarding ECT, Discussed with Print Graphic Designer Dr. Guthrie who reports pt does not need O2 and From a pulmonary standpoint, the patient is doing well, stable. She may proceed with anesthesia and ECT at this time as long as she can the anticoagulation without interruptions. -Discussed with Anesthesiologis Dr. Willett who agrees that pulm recs are sufficient to proceed with ECT and that pt can remain on anticoagulation dx, although pt has AH (which IS independent of mood), she has no other psychotic symptoms 02/09/24 Discussed with pt sx with interpetr hx chronic hills depression hx depression ptsd ? dissociative hills would taper latuda ect when available next few days if remains unchanged some aspects of sx are chronic with recent exacerbation pt has been able to mainsafety no sob noted 02/12 pt remains depressed but says Risperdal helps when she takes it; says this morning, AH command, upsetting but dissipated with scheduled and prn risperdal. Discussed ECT and pt wants to continue 02/13 Patient had ECT this morning and reports that she has a headache and asked for medication and was given another dose of Fioricet. She denies any AH today for which she is relieved. Discussed medication management and she agrees to increase Risperdal for now and wants to continue with ECT 02/14 Patient reports that her mood is so-so which is the best it has been since she got here. Also says no AH which makes 2 days now enroll. Patient discussed medications and ECT and wants to continue with both. Discussed how it is unclear if AH is resolving because of ECT or Risperdal but because she is doing better will continue with this medication for now -patient asked about pulmonary embolisms and keno writer provided education 02/16: Continue plan of care 02/17: Continue plan of care Urine culture pending. 02/18 patient remains with significant psychomotor retardation and depression. Thankfully AH has resolved. Patient requires continue inpatient admission for continued ECT treatments. 02/19 Patient remains depressed; significant psychomotor retardation. AH remains resolved; not clear if it is due to ECT or Risperdal but given this improvement, keno writer hesitant to change medication regimen; patient agrees and wants to remain on current regimen. Patient continues to have a headache though she says it is getting less Patient anxious about medical comorbidities. Discussed patient's lab work, UTI and antibiotics; discussed again nodule on thyroid and liver function -will reorder LFTs to monitor -UA positive for gram-negative rods; discussed with hospitalist and patient started on Ceftin 500 mg b.i.d. for 7 days 02/20 consider possible JAMIE diagnosis; discussed ECT and patient will continue to next week; will reassess then 02/22/24 cont ect pt improved 02/22 continue treatment plan and ECT; patient does seem to be improving, mood is getting better and affect started to be brighter 02/23: Continue current management and treatment plan. Maalox. If no improvement, consider medical consult. 02/24: Check LFT's, repeat UA. Continue other management and treatment plan. 02/25 feeling better, mood improved and patient reports feeling better than she has in several years; AH remains resolved. Patient grateful for ECT. Discussed potential for discharge and maintenance ECT. PLAN: CV Q 15 minute checks ECT #5 pending 02/25 (NOT including 1x ECT prior to PE) NPO Continue Risperdal 2mg BID for continued AH (up from 1mg TID) continue vryaler 4.5mg for depression currently on Vraylar for mood and Risperdal for AH. Numerous failed Med trials: Haldol: got tremor abilify: wt gain risperidone Geodon Cymbalta, Effexor, Lexapro, Pristiq mirtazapine lamictal Medical comorbidities: 1. L-sided weakness: Resolved, transient: complex migraine; Neuro consulted, likely complex migraine rather than CVA/TIA. Sumatriptan contraindicated; use Fioricet prn; continue topiramate 2. transaminasemia - has been a recurrent problem in past; US with Dopplers + GI cosult pending; LFTs improving; 3. recently diagnosed PE 01/31 [R main PA + segmental branches of RLL] - was started on therapeutic enoxaparin; transitioned to apixaban 4.orthostatic hypotension, chronic; - continue midodrine 5. Incidental finding on CTA: possible thinning of semicircular canals bilaterally with question of dehiscence noted on CTA, incidental (ED contacted ENT) likely transient, follow up as outpt, no further workup at this time 6. Incidental finding on CTA: thyroid nodule, incidentally noted on CTA, 1.9 cm left; outpt f/u with thyroid US 7. IBS-C; bowel regimen, outpt GI f/u 8. asthma not in acute exac; prn albuterol 9. MIGUEL; CPAP at night Patient educated on: diagnosis, medication risk/benefits and ECT Informed Consent: understands Reason for continued inpatient stay Substantial Risk for: stable for discharge and rapid decompensation Time Spent With Patient Time: Total time managing care of this patient today ____ minutes.
--- NOTE | 2024-02-26 13:09 | HO.ANESPROP2 ---
[facility], [facility] Active Problems Active Problems: All Active Problems (Updated 02/12/24 @ 00:01 by Josefa Mata) Pre-op chest exam (Acute) Pulmonary embolism (Acute) Abnormal LFTs (Acute) Left-sided weakness (Acute) Shortness of breath (Acute) Cough (Acute) Chest pain (Acute) PTSD (post-traumatic stress disorder) (Acute) Depression with suicidal ideation (Acute) Dizziness (Acute) Ventral hernia (Acute) Flank hernia (Acute) Sacroiliac joint dysfunction of both sides (Acute) Abdominal pannus (Acute) Depression (Acute) Hypotension (Acute) Lower urinary tract symptoms (Acute) Complicated urinary tract infection (Acute) Osteoporosis screening (Acute) Chronic kidney disease, stage III (moderate) (Acute) Paresthesia (Acute) Recurrent urinary tract infection (Acute) Solitary kidney, acquired (Acute) Orthostatic dizziness (Acute) Symptomatic abdominal panniculus (Acute) Panniculitis (Acute) Bilateral leg weakness (Acute) Obesity (Acute) Overweight (BMI 25.0-29.9) (Acute) Urinary tract infection (Acute) Dysuria (Acute) Skin laxity (Acute) Painful sexual intercourse (Acute) Dyspareunia, female (Acute) Nephrolithiasis (Acute) Constipation (Acute) Colon cancer screening (Acute) Overweight (Acute) Sacroiliac joint pain (Acute) Left lumbar radiculopathy (Acute) Memory impairment (Acute) Renal cyst (Acute) Transaminitis (Acute) Elevated LFTs (Acute) Abdominal wall mass (Acute) Annual physical exam (Acute) Bilateral elbow joint pain (Acute) Hip pain, bilateral (Acute) Knee pain, bilateral (Acute) Arthralgia (Acute) UTI (urinary tract infection) (Acute) Post traumatic stress disorder (PTSD) (Acute) MDD (major depressive disorder), recurrent, severe, with psychosis (Acute) Encounter to discuss test results (Acute) Urinary frequency (Acute) Urinary incontinence (Acute) Excess skin (Acute) Renal calculus, right (Acute) MIGUEL (obstructive sleep apnea) (Acute) Obesity (BMI 30-39.9) (Acute) Renal cyst (Acute) Diverticulosis (Acute) Tubular adenoma (Acute) Spondylosis of lumbar spine (Acute) Sacroiliitis (Acute) Dizziness of unknown etiology (Acute) Chronic constipation (Acute) History of gastric bypass (Acute ~2008) Dyspareunia (Acute) Pyelonephritis (Acute) Ingrown toenail (Acute) Iron deficiency anemia (Acute) Major depression, recurrent (Acute) Anxiety (Acute) Insomnia (Acute) Tremor (Acute) Orthostatic hypotension (Acute) Incisional hernia without obstruction or gangrene (Acute) Avascular necrosis of femoral head (Acute) Bilateral carpal tunnel syndrome (Acute) Peroneal neuropathy (Acute) Lumbar degenerative disc disease (Acute) Vitamin D deficiency (Acute) GERD (gastroesophageal reflux disease) (Acute) Migraine (Acute) Hyperlipidemia (Acute) Past Medical History Medical History Chronic kidney disease, stage III (moderate) Obesity (BMI 30-39.9) Renal cyst Diverticulosis Tubular adenoma Asthma Spondylosis of lumbar spine Sacroiliitis Dizziness of unknown etiology Chronic constipation Hx of schizophrenia Panic attacks PTSD (post-traumatic stress disorder) Dyspareunia Pyelonephritis Ingrown toenail Iron deficiency anemia Major depression, recurrent Anxiety Insomnia Tremor Orthostatic hypotension Incisional hernia without obstruction or gangrene Avascular necrosis of femoral head Bilateral carpal tunnel syndrome Peroneal neuropathy Lumbar degenerative disc disease Vitamin D deficiency GERD (gastroesophageal reflux disease) Migraine Hyperlipidemia Family History Family History Father Liver cancer Mother Breast cancer Sister Lung cancer Other Mental health problem Family history of problems with anesthesia: No Surgical History Surgical History History of left nephrectomy (~1999) History of colonoscopy History of surgery Hx of cystoscopy History of bilateral breast reduction surgery History of hysterectomy History of cholecystectomy History of endoscopy (~06/2016) History of bladder repair surgery (~03/2015) S/P cystoscopy (~07/30/12) S/P panniculectomy History of hernia repair (~03/29/10) History of bladder surgery (~10/2009) History of gastric bypass (~2008) History of incisional hernia repair (~1999) Hx of umbilical hernia repair (~1999) H/O left nephrectomy S/P laparoscopic sleeve gastrectomy History of Problems with Anesthesia: No Social History Social History Household Members: Spouse and Family Housing: House Do you presently have visiting nurse or other home services: No Alcohol intake: never Patient Tobacco Use Status: Never used Tobacco e-Cigarette/Vaping Use: Never Used Second Hand Smoke Exposure: No Advance Directives Date on File: 07/12/21 service: No Current occupational status: disabled Sexual orientation: Straight/Heterosexual Cognitive needs: No Hearing needs: No Vision needs: Yes Meds Allergies Allergy/AdvReac Type Severity Reaction Status Date / Time acetaminophen AdvReac Unknown Unknown Verified 01/22/24 09:01 atorvastatin AdvReac Severe elevated Uncoded 01/22/24 09:01 liver enzymes Active Medications: Current Medications Acetaminophen/Butalbital/Caffeine (Butalb/Acetamin/Caff 50/325/40 Tablet) 2 tab PO Q6H PRN PRN Reason: Migraine Headache Last Admin: 02/25/24 19:03 Dose: 2 tab Al Hydroxide/Mg Hydroxide (Magnesium Hydrox/Alum Hydrox 30 Ml Oral.Susp) 30 ml PO Q6H PRN PRN Reason: Heartburn/Nausea Last Admin: 02/24/24 15:24 Dose: 30 ml Albuterol Sulfate (Albuterol Sulfate 90 Mcg 8 Gm Inhaler) 2 puff INHALE RQ6H PRN PRN Reason: wheezing Apixaban (Apixaban 5 Mg Tablet) 5 mg PO BID [facility] Last Admin: 02/26/24 09:17 Dose: 5 mg Bisacodyl (Bisacodyl 5 Mg Tablet.Dr) 10 mg PO BEDTIME [facility] Last Admin: 02/25/24 20:19 Dose: 10 mg Cariprazine (Cariprazine Hcl 1.5 Mg Capsule) 1.5 mg PO DAILY [facility] Last Admin: 02/26/24 10:28 Dose: Not Given Cariprazine (Cariprazine Hcl 3 Mg Capsule) 3 mg PO DAILY [facility] Last Admin: 02/26/24 10:28 Dose: Not Given Cefuroxime Axetil (Cefuroxime Axetil 500 Mg Tablet) 500 mg PO BID [facility] Stop: 02/26/24 21:01 Last Admin: 02/26/24 09:17 Dose: 500 mg Cyanocobalamin (Cyanocobalamin (Vitamin B-12) 500 Mcg Tablet) 500 mcg PO DAILY [facility] Last Admin: 02/26/24 10:29 Dose: Not Given Diphenhydramine HCl (Diphenhydramine Hcl 25 Mg Capsule) 25 mg PO TID PRN PRN Reason: allergies Last Admin: 02/25/24 20:21 Dose: 25 mg Docusate Sodium (Docusate Sodium 100 Mg Capsule) 100 mg PO DAILY [facility] Last Admin: 02/26/24 10:29 Dose: Not Given Ferrous Sulfate (Ferrous Sulfate 324 Mg Tablet.Dr) 324 mg PO DAILY [facility] Last Admin: 02/26/24 10:29 Dose: Not Given Gabapentin (Gabapentin 400 Mg Capsule) 800 mg PO TID [facility] Last Admin: 02/26/24 10:29 Dose: Not Given Hydrocortisone (Hydrocortisone 2.5 % Rectal Cr 30 Gm Tube) 1 appl AL BID [facility] Last Admin: 02/26/24 10:33 Dose: Not Given Hydroxyzine HCl (Hydroxyzine Hcl 25 Mg Tablet) 25 mg PO Q6H PRN PRN Reason: Anxiety Last Admin: 02/24/24 14:18 Dose: 25 mg Lorazepam (Lorazepam 1 Mg Tablet) 1 mg PO BID PRN PRN Reason: Anxiety Last Admin: 02/24/24 14:18 Dose: 1 mg Magnesium Hydroxide (Milk Of Magnesia 30 Ml Oral.Susp) 30 ml PO DAILY PRN PRN Reason: Constipation Meclizine HCl (Meclizine Hcl 25 Mg Tablet) 25 mg PO TID PRN PRN Reason: dizziness Last Admin: 02/16/24 13:13 Dose: 25 mg Melatonin (Melatonin 3 Mg Tablet) 9 mg PO BEDTIME PRN PRN Reason: Insomnia Last Admin: 02/25/24 20:18 Dose: 9 mg Midodrine (Midodrine Hcl 10 Mg Tablet) 10 mg PO TID@0900,1300,1800 [facility] Last Admin: 02/26/24 09:28 Dose: 10 mg Mirtazapine (Mirtazapine 15 Mg Tablet) 15 mg PO BEDTIME [facility] Last Admin: 02/25/24 20:19 Dose: 15 mg Naloxone HCl (Naloxone Hcl 0.4 Mg/Ml Vial) 0.04 mg IVPUSH Q5M PRN PRN Reason: Excessive sedation or RR < 8 Naloxone HCl (Naloxone Hcl 0.4 Mg/Ml Vial) 0.04 mg IVPUSH Q5M PRN PRN Reason: Excessive sedation or RR < 8 Nicotine Polacrilex (Nicotine Polacrilex 2 Mg Gum) 4 mg BUCCAL Q2H PRN PRN Reason: Nicotine Cravings Pt Own (Rosuvastatin (5 Mg Tablet)) 5 mg PO DAILY [facility] Last Admin: 02/26/24 10:33 Dose: Not Given Omeprazole (Omeprazole 20 Mg Capsule.Dr) 20 mg PO DAILY@0630 [facility] Last Admin: 02/26/24 09:15 Dose: 20 mg Risperidone (Risperidone 1 Mg Tablet) 1 mg PO BID PRN PRN Reason: AH Last Admin: 02/13/24 10:05 Dose: 1 mg Risperidone (Risperidone 2 Mg Tablet) 2 mg PO BID [facility] Last Admin: 02/26/24 10:33 Dose: Not Given Topiramate (Topiramate 100 Mg Tablet) 100 mg PO DAILY [facility] Last Admin: 02/26/24 10:32 Dose: Not Given Tramadol HCl (Tramadol Hcl 50 Mg Tablet) 100 mg PO Q8H PRN PRN Reason: severe pain Last Admin: 02/24/24 15:26 Dose: 100 mg Trazodone HCl (Trazodone Hcl 50 Mg Tablet) 50 mg PO BEDTIME MRX1 PRN PRN Reason: Insomnia Last Admin: 02/25/24 20:19 Dose: 50 mg Triamcinolone Acetonide (Triamcinolone Acet 0.1 % Cream 15 Gm Tube) 1 appl TOPICAL DAILY PRN PRN Reason: rash Vitamin D (Cholecalciferol (Vitamin D3) 25 Mcg Tablet) 25 mcg PO DAILY [facility] Last Admin: 02/26/24 10:29 Dose: Not Given Home Medications ?Medication ?Instructions ?Recorded ?Confirmed ?Last Taken ?Type lorazepam 1 mg tablet 1 mg PO BID PRN Anxiety 11/02/22 02/06/24 Unknown History potassium citrate 5 mEq (540 mg) 5 meq PO DAILY 06/13/23 02/06/24 01/21/24 History tablet,extended release melatonin 5 mg tablet 5 mg PO BEDTIME PRN Insomnia 07/14/23 02/06/24 Unknown History mirtazapine 15 mg tablet 15 mg PO BEDTIME 12/05/23 02/06/24 01/21/24 History naproxen 500 mg tablet 500 mg PO DAILY 12/05/23 02/06/24 01/21/24 History topiramate 100 mg tablet 100 mg PO DAILY 12/05/23 02/06/24 Unknown History albuterol sulfate 90 mcg/actuation 2 puff inhalation Q6H PRN wheezing 01/23/24 02/06/24 Unknown History aerosol inhaler (Ventolin HFA) diphenhydramine HCl 25 mg capsule 25 mg PO TID PRN allergies 01/23/24 02/06/24 Unknown History (Banophen) lurasidone 40 mg tablet 40 mg PO DAILY 01/23/24 02/06/24 01/21/24 History pantoprazole 40 mg tablet,delayed 40 mg PO DAILY@0630 01/23/24 02/06/24 01/21/24 History release Exam Height,Weight and Vital Signs: Height 5 ft 3 in Weight 74.8 kg Last Vital Signs Temp 98.1 F 02/26/24 08:00 Pulse 61 02/26/24 08:00 Resp 16 02/26/24 08:00 BP 123/78 02/26/24 09:28 Pulse Ox 98 02/26/24 08:00 O2 Del Method Room Air 02/26/24 08:00 O2 Flow Rate 2 02/23/24 13:45 Pertinent Lab Results Pertinent Lab Results: Laboratory Tests 02/20/24 02/25/24 02/25/24 16:33 16:02 16:29 Total Bilirubin 0.2 0.2 Direct Bilirubin < 0.2 < 0.2 AST 43 H 83 H ALT 61 H 136 H Alkaline Phosphatase 120 H 135 H Total Protein 6.6 6.7 Albumin 3.7 3.8 TSH 1.03 Urine Color Yellow Urine Appearance Clear Urine pH 6.0 Ur Specific Twining 1.015 Urine Protein Negative Urine Glucose (UA) Negative Urine Ketones Negative Urine Blood Small (1+) H Urine Nitrite Negative Ur Leukocyte Esterase Negative Urine RBC >20 H Urine WBC 0-5 Ur Squamous Epith Cells 0-2 Urine Bacteria Trace Hyaline Casts 0-2 Airway Mallampati Class: II TM Dist: >3cm Neck ROM: Full Loose/Missing/Broken Teeth: No Heart: RRR Lungs: CTA Assessment and Plan Assessment Anesthesia Assessment: Anesthesia Plan Discussed and Chart Reviewed Final Anesthetic Review Family History of Problems with Anesthesia: No History of Problems with Anesthesia: No NPO: Yes ASA Class: III Final Preanesthetic Review: Meds/Allgs Chart Reviewed, Consent Obtained/Reviewed and Anes Risks/Benef Reviewed Patient Risk: Intermediate Procedure Risk: Intermediate Anesthetic Plan Anesthetic Plan: GA Disposition: Standard PACU
--- NOTE | 2024-02-26 14:06 | MHC.SHP ---
Pre-Procedural Eval Section A - 24 Hr Update-Section A only Date of Service: 02/26/24 The patient is an INPATIENT: Yes Changes since office visit: Yes Patient answered all questions; No Cold of Flu in the past 2 weeks, No New Medical Problems and No Changes in Medication The patient has been examined within 24 hours of the surgical procedure. The History & Physical has been completed within 30 days and I have reviewed it.: Yes Section B - Complete if H&P > 30 days Chief Complaint: Depression Allergies: Allergies Allergy/AdvReac Type Severity Reaction Status Date / Time acetaminophen AdvReac Unknown Unknown Verified 01/22/24 09:01 atorvastatin AdvReac Severe elevated Uncoded 01/22/24 09:01 liver enzymes Plan I have reviewed the history and physical and performed a pertinent physical examination on my patient. No changes have occurred unless specified. Time Spent With Patient Time: Total time managing care of this patient today ____ minutes.
--- NOTE | 2024-02-26 14:18 | HO.ECTPROC ---
ECT Procedure Note Diagnosis/Treatment Date of Service: 02/26/24 Diagnosis: Major Depressive Disorder and Other (ptsd) Previous ECT Date: 02/23/24 Current Treatment Number: 6 Treatment: Series Interval Clinical Notes: pt generally improved no c/o side effects ect completed tolerated well Time: Total time managing care of this patient today ____ minutes. ECT Settings Device: THYMATRON DGx Electrode Placement: Right Unilateral Program/Pulse Width: 0.50 Energy Percent: 80 Seizure Duration By EEG (in seconds): 41 Medications Administration General Anesthetic: Etomidate (10) Muscle Relaxant: Succinylcholine (80) Airway Management Airway Management: Bag Mask Ventilation Treatment Recommendations Notes: continue tx per dr neff consider maintenance tx Pt Tolerated Procedure w/o Issue: Yes
[2024-02-26] MEDS: Gabapentin 400 MG CAPSULE 800 MG PO ×2 (15:57→20:58)
[2024-02-26] MEDS: oxyCODONE HCl Immed Release 5 MG TABLET PO (16:44)
[2024-02-26] MEDS: traMADoL HCL 50 MG TABLET 100 MG PO (16:55)
[2024-02-26] MEDS: Butalb/Acetamin/Caff 50/325/40 TABLET 2 TAB PO (20:58)
[2024-02-26] MEDS: Mirtazapine 15 MG TABLET PO (20:58)
[2024-02-26] MEDS: bisacodyL 5 MG TABLET.DR 10 MG PO (20:58)
[2024-02-26] MEDS: traZODone HCL 50 MG TABLET PO (20:58)
[2024-02-26] MEDS: diphenhydrAMINE HCL 25 MG CAPSULE PO (20:58)
[2024-02-26] MEDS: Melatonin 3 MG TABLET 9 MG PO (20:58)
[2024-02-26] MEDS: risperiDONE 2 MG TABLET PO (20:59)
[2024-02-27 08:00] VITALS: BP 122/76; PULSE 72; RESP 18; TEMP 37.3; O2SAT 97
[2024-02-27 08:38] VITALS: BP 122/76
[2024-02-27] MEDS: Gabapentin 400 MG CAPSULE 800 MG PO ×3 (08:38→20:34)
[2024-02-27] MEDS: Midodrine HCl 10 MG TABLET PO ×3 (08:38→17:21)
[2024-02-27] MEDS: Cyanocobalamin (Vitamin B-12) 500 MCG TABLET PO (08:38)
[2024-02-27] MEDS: Omeprazole 20 MG CAPSULE.DR PO (08:39)
[2024-02-27] MEDS: Ferrous Sulfate 324 MG TABLET.DR PO (08:39)
[2024-02-27] MEDS: Apixaban 5 MG TABLET PO ×2 (08:39→20:32)
[2024-02-27] MEDS: Topiramate 100 MG TABLET PO (08:39)
[2024-02-27] MEDS: Cholecalciferol (Vitamin D3) 25 MCG TABLET PO (08:39)
[2024-02-27] MEDS: Docusate Sodium 100 MG CAPSULE PO (08:40)
[2024-02-27] MEDS: Cariprazine HCl 3 MG CAPSULE PO (08:40)
[2024-02-27] MEDS: Cariprazine HCl 1.5 MG CAPSULE PO (08:40)
[2024-02-27] MEDS: ROSUVASTATIN 5 MG 5 EACH PO (08:41)
[2024-02-27] MEDS: risperiDONE 2 MG TABLET PO ×2 (08:41→20:33)
[2024-02-27] MEDS: traMADoL HCL 50 MG TABLET 100 MG PO (09:13)
--- NOTE | 2024-02-27 09:27 | P.PNPSI_ITS ---
Subjective Subjective Date of Service: 02/27/24 Reason For Visit: Depression Interim History: met with pt; discussed with team; discussed case with dr. Broussard reports good mood; best she's felt in years; Pt asking for discharge, saying she feels ready to go home; discussed ECT and pt agrees to conclude series and switch to maintenance ECT. Mental Status Exam Mental Status Exam Narrative: Pt is alert and oriented; behavior is cooperative, calm; dressed in casual attire with adequate grooming; mood is described as good affect still noticeably brighter; eye contact appropriate; Speech remains soft volume, but normal rate and prosody; no psychomotor retardation present; thought process is goal oriented; Thought content is on symptoms, tx; otherwise pertinent to re levant topics and without any delusional content, paranoid ideations or grandiosity; no SI; no HI; No AH Patients insight and judgment fair Diagnostics Vital Signs (24Hr): Vital Signs - 24 hr 02/26/24 09:28 02/26/24 14:20 02/26/24 14:25 Temperature 98.2 F Pulse Rate 74 71 Respiratory Rate 18 16 Blood Pressure 123/78 167/99 H 132/70 Pulse Oximetry 97 98 Oxygen Delivery Method Room Air 02/26/24 14:30 02/26/24 14:35 02/26/24 14:50 Temperature 97.9 F Pulse Rate 70 79 63 Respiratory Rate 16 16 16 Blood Pressure 129/41 L 126/79 119/72 Pulse Oximetry 98 97 99 Oxygen Delivery Method Room Air Room Air Room Air 02/26/24 15:15 02/26/24 16:27 02/26/24 17:48 Temperature 98.1 F Pulse Rate 60 Respiratory Rate 16 Blood Pressure 141/70 H 141/70 H 116/56 L Pulse Oximetry 99 Oxygen Delivery Method 02/26/24 19:53 02/26/24 23:21 02/27/24 08:00 Temperature 97.8 F 99.1 F Pulse Rate 65 72 Respiratory Rate 16 18 Blood Pressure 119/77 122/76 Pulse Oximetry 99 97 Oxygen Delivery Method Room Air Room Air 02/27/24 08:38 Temperature Pulse Rate Respiratory Rate Blood Pressure 122/76 Pulse Oximetry Oxygen Delivery Method BMI result Body Mass Index 29.2 Labs Labs: Laboratory Results - last 48 hr 02/25/24 02/25/24 16:02 16:29 Total Bilirubin 0.2 Direct Bilirubin < 0.2 AST 83 H ALT 136 H Alkaline Phosphatase 135 H Total Protein 6.7 Albumin 3.8 Urine Color Yellow Urine Appearance Clear Urine pH 6.0 Ur Specific Thayer 1.015 Urine Protein Negative Urine Glucose (UA) Negative Urine Ketones Negative Urine Blood Small (1+) H Urine Nitrite Negative Ur Leukocyte Esterase Negative Urine RBC >20 H Urine WBC 0-5 Ur Squamous Epith Cells 0-2 Urine Bacteria Trace Hyaline Casts 0-2 Medications Medications Current Medications Acetaminophen/Butalbital/Caffeine (Butalb/Acetamin/Caff 50/325/40 Tablet) 2 tab PO Q6H PRN PRN Reason: Migraine Headache Last Admin: 02/26/24 20:58 Dose: 2 tab Al Hydroxide/Mg Hydroxide (Magnesium Hydrox/Alum Hydrox 30 Ml Oral.Susp) 30 ml PO Q6H PRN PRN Reason: Heartburn/Nausea Last Admin: 02/24/24 15:24 Dose: 30 ml Albuterol Sulfate (Albuterol Sulfate 90 Mcg 8 Gm Inhaler) 2 puff INHALE RQ6H PRN PRN Reason: wheezing Apixaban (Apixaban 5 Mg Tablet) 5 mg PO BID COUNTS INCLUDE 234 BEDS AT THE [facility] Last Admin: 02/27/24 08:39 Dose: 5 mg Bisacodyl (Bisacodyl 5 Mg Tablet.Dr) 10 mg PO BEDTIME COUNTS INCLUDE 234 BEDS AT THE [facility] Last Admin: 02/26/24 20:58 Dose: 10 mg Cariprazine (Cariprazine Hcl 1.5 Mg Capsule) 1.5 mg PO DAILY COUNTS INCLUDE 234 BEDS AT THE [facility] Last Admin: 02/27/24 08:40 Dose: 1.5 mg Cariprazine (Cariprazine Hcl 3 Mg Capsule) 3 mg PO DAILY COUNTS INCLUDE 234 BEDS AT THE [facility] Last Admin: 02/27/24 08:40 Dose: 3 mg Cyanocobalamin (Cyanocobalamin (Vitamin B-12) 500 Mcg Tablet) 500 mcg PO DAILY COUNTS INCLUDE 234 BEDS AT THE [facility] Last Admin: 02/27/24 08:38 Dose: 500 mcg Diphenhydramine HCl (Diphenhydramine Hcl 25 Mg Capsule) 25 mg PO TID PRN PRN Reason: allergies Last Admin: 02/26/24 20:58 Dose: 25 mg Docusate Sodium (Docusate Sodium 100 Mg Capsule) 100 mg PO DAILY COUNTS INCLUDE 234 BEDS AT THE [facility] Last Admin: 02/27/24 08:40 Dose: 100 mg Ferrous Sulfate (Ferrous Sulfate 324 Mg Tablet.Dr) 324 mg PO DAILY COUNTS INCLUDE 234 BEDS AT THE [facility] Last Admin: 02/27/24 08:39 Dose: 324 mg Gabapentin (Gabapentin 400 Mg Capsule) 800 mg PO TID COUNTS INCLUDE 234 BEDS AT THE [facility] Last Admin: 02/27/24 08:38 Dose: 800 mg Hydrocortisone (Hydrocortisone 2.5 % Rectal Cr 30 Gm Tube) 1 appl MO BID COUNTS INCLUDE 234 BEDS AT THE [facility] Last Admin: 02/27/24 08:43 Dose: Not Given Hydroxyzine HCl (Hydroxyzine Hcl 25 Mg Tablet) 25 mg PO Q6H PRN PRN Reason: Anxiety Last Admin: 02/24/24 14:18 Dose: 25 mg Lorazepam (Lorazepam 1 Mg Tablet) 1 mg PO BID PRN PRN Reason: Anxiety Last Admin: 02/24/24 14:18 Dose: 1 mg Magnesium Hydroxide (Milk Of Magnesia 30 Ml Oral.Susp) 30 ml PO DAILY PRN PRN Reason: Constipation Meclizine HCl (Meclizine Hcl 25 Mg Tablet) 25 mg PO TID PRN PRN Reason: dizziness Last Admin: 02/16/24 13:13 Dose: 25 mg Melatonin (Melatonin 3 Mg Tablet) 9 mg PO BEDTIME PRN PRN Reason: Insomnia Last Admin: 02/26/24 20:58 Dose: 9 mg Midodrine (Midodrine Hcl 10 Mg Tablet) 10 mg PO TID@0900,1300,1800 COUNTS INCLUDE 234 BEDS AT THE [facility] Last Admin: 02/27/24 08:38 Dose: 10 mg Mirtazapine (Mirtazapine 15 Mg Tablet) 15 mg PO BEDTIME COUNTS INCLUDE 234 BEDS AT THE [facility] Last Admin: 02/26/24 20:58 Dose: 15 mg Naloxone HCl (Naloxone Hcl 0.4 Mg/Ml Vial) 0.04 mg IVPUSH Q5M PRN PRN Reason: Excessive sedation or RR < 8 Naloxone HCl (Naloxone Hcl 0.4 Mg/Ml Vial) 0.04 mg IVPUSH Q5M PRN PRN Reason: Excessive sedation or RR < 8 Nicotine Polacrilex (Nicotine Polacrilex 2 Mg Gum) 4 mg BUCCAL Q2H PRN PRN Reason: Nicotine Cravings Pt Own (Rosuvastatin (5 Mg Tablet)) 5 mg PO DAILY COUNTS INCLUDE 234 BEDS AT THE [facility] Last Admin: 02/27/24 08:41 Dose: 5 mg Omeprazole (Omeprazole 20 Mg Capsule.) 20 mg PO DAILY@0630 COUNTS INCLUDE 234 BEDS AT THE [facility] Last Admin: 02/27/24 08:39 Dose: 20 mg Risperidone (Risperidone 1 Mg Tablet) 1 mg PO BID PRN PRN Reason: AH Last Admin: 02/13/24 10:05 Dose: 1 mg Risperidone (Risperidone 2 Mg Tablet) 2 mg PO BID COUNTS INCLUDE 234 BEDS AT THE [facility] Last Admin: 02/27/24 08:41 Dose: 2 mg Topiramate (Topiramate 100 Mg Tablet) 100 mg PO DAILY COUNTS INCLUDE 234 BEDS AT THE [facility] Last Admin: 02/27/24 08:39 Dose: 100 mg Tramadol HCl (Tramadol Hcl 50 Mg Tablet) 100 mg PO Q8H PRN PRN Reason: severe pain Last Admin: 02/27/24 09:13 Dose: 100 mg Trazodone HCl (Trazodone Hcl 50 Mg Tablet) 50 mg PO BEDTIME MRX1 PRN PRN Reason: Insomnia Last Admin: 02/26/24 20:58 Dose: 50 mg Triamcinolone Acetonide (Triamcinolone Acet 0.1 % Cream 15 Gm Tube) 1 appl TOPICAL DAILY PRN PRN Reason: rash Vitamin D (Cholecalciferol (Vitamin D3) 25 Mcg Tablet) 25 mcg PO DAILY COUNTS INCLUDE 234 BEDS AT THE [facility] Last Admin: 02/27/24 08:39 Dose: 25 mcg Allergies Allergies Allergy/AdvReac Type Severity Reaction Status Date / Time acetaminophen AdvReac Unknown Unknown Verified 01/22/24 09:01 atorvastatin AdvReac Severe elevated Uncoded 01/22/24 09:01 liver enzymes Assessment & Plan Assessment & Plan (1) MDD (major depressive disorder), recurrent, severe, with psychosis: Status: Acute Code(s): F33.3 - Major depressive disorder, recurrent, severe with psychotic symptoms (2) Post traumatic stress disorder (PTSD): Status: Acute Code(s): F43.10 - Post-traumatic stress disorder, unspecified (3) Pulmonary embolism: Qualifiers: Pulmonary embolism type: multiple subsegmental (without acute cor pulmonale) Qualified Code(s): I26.94 - Multiple subsegmental thrombotic pulmonary emboli without acute cor pulmonale Status: Acute Code(s): I26.99 - Other pulmonary embolism without acute cor pulmonale (4) MIGUEL (obstructive sleep apnea): Status: Acute Code(s): G47.33 - Obstructive sleep apnea (adult) (pediatric) (5) Chronic kidney disease, stage III (moderate): Qualifiers: Chronic kidney disease stage 3 subtype: stage 3a (GFR 45-59) Qualified Code(s): N18.31 - Chronic kidney disease, stage 3a Status: Acute Code(s): N18.30 - Chronic kidney disease, stage 3 unspecified Plan HPI: Patient is a 53-year-old female with history of MDD with psychotic features (r/o schizoaffective disorder, depressed type) PTSD, borderline traits, kidney cancer (one kidney). She first presented for admission for worsening depression and AH. Patient was feeling overall good enough until about 4 months ago. Without any obvious trigger, and despite continued adherence to medication regimen, she reports that her mood started to decline and AH (which is present independent of mood) became worse. Patient said she started having bad thoughts.. At which she became tearful and would not disclose them. She said her mood got worse and worse and voices told her to hurt herself; she started seeing shadow figures and having horrific nightmares where sometimes she can tell if she was awake or asleep but saw a ball of fire and things burning. AH worsened this past week and so patient self presented. She denies any history of manic type behaviors; ongoing PTSD symptoms. Patient does not remember history of med trials On M5, patient was started on Vraylar and ECT. She only received 2 ECT trials when she developed a pulmonary embolism; patient started on anticoagulation however ECT held. A few days later patient reported left-sided weakness which was evident on exam; she was transferred to medical floor, with head/neck CT/angiogram and then MRI; patient was diagnosed with complex migraine that can mimic a stroke; patient was stabilized and returned to the unit. There were some incidental findings which included thyroid nodules that medical team thought could be followed up as an outpatient. Now stabilized, patient returns to for continued treatment for depression. Patient reports she remains very depressed and continues to have AH which are very bothersome. Patient adamantly requests to restart ECT which she was hopeful would be helpful. Formulaton/clinical reasoning: Printing Assistant discussed case with patient's outpatient psychiatric provider Dr. Kathleen who has known patient for years. She reports that Patient has long history of depression, frequently severe, intermixed with PTSD symptoms, emotional reactivity; although patient endorses continue AH, Dr. Kathleen does not think necessarily an organic psychotic illness and only symptom is AH (no history of delusional thinking, no disorganized speech or behavior). Pt has had numerous medication trials with only partial response. Discussed treatment approaches and provider agrees that ECT trial is warranted; no benefit from Latuda thus far and although was only at 20 mg, agree to start Vraylar instead which maybe a little more robust in dealing with AH. Patient amenable to changing medications. [place]? only one kidney so hesitant. Also considerations are OCD/JAMIE regarding dx, although pt has AH (which IS independent of mood), she has no other psychotic symptoms HOSPITAL COURSE: 02/07 complaining of worsened command AH to kill self; tearful. Risperdal worked as PRN for few hours so she agreed to restart (failed in past). 1.continues on Vraylar 4.5mg daily: maybe helped with depression some, but AH remained 2.returned from Medical floor on Latuda (which was did not seem to help in past), but since so depressed and not sure if will get ECT, left it since monotherapy has not been effective (will leave for now, but likey dc) 3.Started on Risperdal 1mg TID since prn risperdal took away AH for a few hours 4. Currently on 3 antipsychotics but will likely dc some of them. -Regarding ECT, Discussed with [facility] Dr. Guthrie who reports pt does not need O2 and From a pulmonary standpoint, the patient is doing well, stable. She may proceed with anesthesia and ECT at this time as long as she can the ant icoagulation without interruptions. -Discussed with Anesthesiologis Dr. Willett who agrees that pulm recs are sufficient to proceed with ECT and that pt can remain on anticoagulation dx, although pt has AH (which IS independent of mood), she has no other psychotic symptoms 02/09/24 Discussed with pt sx with interpetr hx chronic hills depression hx depression ptsd ? dissociative hills would taper latuda ect when available next few days if remains unchanged some aspects of sx are chronic with recent exacerbation pt has been able to mainsafety no sob noted 02/12 pt remains depressed but says Risperdal helps when she takes it; says this morning, AH command, upsetting but dissipated with scheduled and prn risperdal. Discussed ECT and pt wants to continue 02/13 Patient had ECT this morning and reports that she has a headache and asked for medication and was given another dose of Fioricet. She denies any AH today for which she is relieved. Discussed medication management and she agrees to increase Risperdal for now and wants to continue with ECT 02/14 Patient reports that her mood is so-so which is the best it has been since she got here. Also says no AH which makes 2 days now enroll. Patient discussed medications and ECT and wants to continue with both. Discussed how it is unclear if AH is resolving because of ECT or Risperdal but because she is doing better will continue with this medication for now -patient asked about pulmonary embolisms and underwriter provided education 02/16: Continue plan of care 02/17: Continue plan of care Urine culture pending. 02/18 patient remains with significant psychomotor retardation and depression. Thankfully AH has resolved. Patient requires continue inpatient admission for continued ECT treatments. 02/19 Patient remains depressed; significant psychomotor retardation. AH remains resolved; not clear if it is due to ECT or Risperdal but given this improvement, underwriter hesitant to change medication regimen; patient agrees and wants to remain on current regimen. Patient continues to have a headache though she says it is getting less Patient anxious about medical comorbidities. Discussed patient's lab work, UTI and antibiotics; discussed again nodule on thyroid and liver function -will reorder LFTs to monitor -UA positive for gram-negative rods; discussed with hospitalist and patient started on Ceftin 500 mg b.i.d. for 7 days 02/20 consider possible JAMIE diagnosis; discussed ECT and patient will continue to next week; will reassess then 02/22/24 cont ect pt improved 02/22 continue treatment plan and ECT; patient does seem to be improving, mood is getting better and affect started to be brighter 02/23: Continue current management and treatment plan. Maalox. If no improvement, consider medical consult. 02/24: Check LFT's, repeat UA. Continue other management and treatment plan. 02/25 feeling better, mood improved and patient reports feeling better than she has in several years; AH remains resolved. Patient grateful for ECT. Discussed potential for discharge and maintenance ECT. 02/26 pt requestion dc; feeling good and ready to go home; agrees to maintenance ECT PLAN: CV Q 15 minute checks ECT #5 on 02/25 (had 1x ECT prior to PE) Continue Risperdal 2mg BID for continued AH (up from 1mg TID) continue vryaler 4.5mg for depression currently on Vraylar for mood and Risperdal for AH. Numerous failed Med trials: Haldol: got tremor abilify: wt gain risperidone Geodon Cymbalta, Effexor, Lexapro, Pristiq mirtazapine lamictal Medical comorbidities: 1. L-sided weakness: Resolved, transient: complex migraine; Neuro consulted, likely complex migraine rather than CVA/TIA. Sumatriptan contraindicated; use Fioricet prn; continue topiramate 2. transaminasemia - has been a recurrent problem in past; US with Dopplers + GI cosult pending; LFTs improving; 3. recently diagnosed PE 01/31 [R main PA + segmental branches of RLL] - was started on therapeutic enoxaparin; transitioned to apixaban 4.orthostatic hypotension, chronic; - continue midodrine 5. Incidental finding on CTA: possible thinning of semicircular canals bilaterally with question of dehiscence noted on CTA, incidental (ED contacted ENT) likely transient, follow up as outpt, no further workup at this time 6. Incidental finding on CTA: thyroid nodule, incidentally noted on CTA, 1.9 cm left; outpt f/u with thyroid US 7. IBS-C; bowel regimen, outpt GI f/u 8. asthma not in acute exac; prn albuterol 9. MIGUEL; CPAP at night Patient educated on: diagnosis, medication risk/benefits and ECT Informed Consent: understands Reason for continued inpatient stay Substantial Risk for: stable for discharge Time Spent With Patient Time: Total time managing care of this patient today ____ minutes.
--- NOTE | 2024-02-27 09:32 | HO.POSTANES ---
Post Anesthesia Evaluation Post Anesthesia Evaluation Date of Service: 02/26/24 Vital Signs: Vital Signs Temp Pulse Resp BP Pulse Ox O2 Del Method 02/27/24 08:38 122/76 02/27/24 08:00 99.1 F 72 18 122/76 97 Room Air 02/26/24 23:21 16 Anesthesia: General Mental Status: Awake Pain Control: Satisfactory Nausea/Vomiting: None Hydration: Adequate Anesthesia-Related Issues: No Anes. Related Issues
[2024-02-27 12:42] VITALS: BP 119/64
[2024-02-27 17:21] VITALS: BP 114/70
[2024-02-27 19:58] VITALS: BP 111/72; PULSE 68; RESP 18; TEMP 36.8; O2SAT 99
[2024-02-27] MEDS: hydrOXYzine HCL 25 MG TABLET PO (20:32)
[2024-02-27] MEDS: Mirtazapine 15 MG TABLET PO (20:32)
[2024-02-27] MEDS: traZODone HCL 50 MG TABLET PO (20:32)
[2024-02-27] MEDS: diphenhydrAMINE HCL 25 MG CAPSULE PO (20:32)
[2024-02-27] MEDS: bisacodyL 5 MG TABLET.DR 10 MG PO (20:32)
[2024-02-27] MEDS: Butalb/Acetamin/Caff 50/325/40 TABLET 2 TAB PO (20:34)
[2024-02-27] MEDS: Melatonin 3 MG TABLET 9 MG PO (20:39)
[2024-02-27 23:12] VITALS: RESP 18
[2024-02-28] MEDS: Ferrous Sulfate 324 MG TABLET.DR PO (08:58)
[2024-02-28] MEDS: Apixaban 5 MG TABLET PO ×2 (08:58→20:06)
[2024-02-28] MEDS: ROSUVASTATIN 5 MG 5 EACH PO (08:58)
[2024-02-28] MEDS: Gabapentin 400 MG CAPSULE 800 MG PO ×3 (08:58→20:07)
[2024-02-28] MEDS: Docusate Sodium 100 MG CAPSULE PO (08:58)
[2024-02-28] MEDS: Cariprazine HCl 1.5 MG CAPSULE PO (08:58)
[2024-02-28] MEDS: Cyanocobalamin (Vitamin B-12) 500 MCG TABLET PO (08:58)
[2024-02-28] MEDS: risperiDONE 2 MG TABLET PO ×2 (08:58→20:05)
[2024-02-28] MEDS: Topiramate 100 MG TABLET PO (08:59)
[2024-02-28] MEDS: Omeprazole 20 MG CAPSULE.DR PO (08:59)
[2024-02-28] MEDS: Cholecalciferol (Vitamin D3) 25 MCG TABLET PO (08:59)
[2024-02-28] MEDS: Midodrine HCl 10 MG TABLET PO ×3 (08:59→19:29)
[2024-02-28] MEDS: Cariprazine HCl 3 MG CAPSULE PO (08:59)
[2024-02-28 09:32] VITALS: BP 122/63; PULSE 70; RESP 16; TEMP 36.5; O2SAT 98
[2024-02-28 12:24] VITALS: BP 97/60
[2024-02-28] MEDS: traMADoL HCL 50 MG TABLET 100 MG PO (12:24)
[2024-02-28 19:29] VITALS: BP 113/59
[2024-02-28] MEDS: Butalb/Acetamin/Caff 50/325/40 TABLET 2 TAB PO (19:48)
[2024-02-28 20:00] VITALS: BP 128/74; PULSE 69; RESP 18; TEMP 36.7; O2SAT 99
[2024-02-28] MEDS: LORazepam 1 MG TABLET PO (20:05)
[2024-02-28] MEDS: traZODone HCL 50 MG TABLET PO (20:05)
[2024-02-28] MEDS: Melatonin 3 MG TABLET 9 MG PO (20:06)
[2024-02-28] MEDS: bisacodyL 5 MG TABLET.DR 10 MG PO (20:06)
[2024-02-28] MEDS: Mirtazapine 15 MG TABLET PO (20:06)
[2024-02-28] MEDS: diphenhydrAMINE HCL 25 MG CAPSULE PO (20:06)
[2024-02-28] MEDS: hydrOXYzine HCL 25 MG TABLET PO (20:06)
--- NOTE | 2024-02-28 23:55 | P.PNPSI_ITS ---
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 She remains in good mood, feeling better than she has long time, no AH, no SI, hopeful. Mental Status Exam Mental Status Exam Narrative: Pt is alert and oriented; behavior is cooperative, calm; dressed in casual attire with adequate grooming; mood is described as good affect still noticeably brighter; eye contact appropriate; Speech remains soft volume, but normal rate and prosody; no psychomotor retardation present; thought process is goal oriented; Thought content is on symptoms, tx; otherwise pertinent to relevant topics and without any delusional content, paranoid ideations or grandiosity; no SI; no HI; No AH Patients insight and judgment fair Diagnostics Vital Signs (24Hr): Vital Signs - 24 hr 02/28/24 09:32 02/28/24 12:24 02/28/24 19:29 Temperature 97.7 F Pulse Rate 70 Respiratory Rate 16 Blood Pressure 122/63 97/60 113/59 L Pulse Oximetry 98 Oxygen Delivery Method Room Air 02/28/24 20:00 Temperature 98.1 F Pulse Rate 69 Respiratory Rate 18 Blood Pressure 128/74 Pulse Oximetry 99 Oxygen Delivery Method Room Air BMI result Body Mass Index 29.2 Imaging Radiology Impressions: ITS Impressions Abdomen Ultrasound 02/26/24 18:54 IMPRESSION: 1. There is coarsened hepatic echotexture, consistent with fatty infiltration or hepatocellular disease. Please correlate clinically. No focal hepatic mass or intrahepatic biliary dilatation is seen. 2. The gallbladder is surgically absent. 3. Technically limited ultrasound examination of the pancreas. Electronically signed by: Alfred Jenkins MD 02/27/2024 05:57 PM EDT RP Medications Medications Current Medications Acetaminophen/Butalbital/Caffeine (Butalb/Acetamin/Caff 50/325/40 Tablet) 2 tab PO Q6H PRN PRN Reason: Migraine Headache Last Admin: 02/28/24 19:48 Dose: 2 tab Al Hydroxide/Mg Hydroxide (Magnesium Hydrox/Alum Hydrox 30 Ml Oral.Susp) 30 ml PO Q6H PRN PRN Reason: Heartburn/Nausea Last Admin: 02/24/24 15:24 Dose: 30 ml Albuterol Sulfate (Albuterol Sulfate 90 Mcg 8 Gm Inhaler) 2 puff INHALE RQ6H PRN PRN Reason: wheezing Apixaban (Apixaban 5 Mg Tablet) 5 mg PO BID [facility] Last Admin: 02/28/24 20:06 Dose: 5 mg Bisacodyl (Bisacodyl 5 Mg Tablet.) 10 mg PO BEDTIME [facility] Last Admin: 02/28/24 20:06 Dose: 10 mg Cariprazine (Cariprazine Hcl 1.5 Mg Capsule) 1.5 mg PO DAILY [facility] Last Admin: 02/28/24 08:58 Dose: 1.5 mg Cariprazine (Cariprazine Hcl 3 Mg Capsule) 3 mg PO DAILY [facility] Last Admin: 02/28/24 08:59 Dose: 3 mg Cyanocobalamin (Cyanocobalamin (Vitamin B-12) 500 Mcg Tablet) 500 mcg PO DAILY [facility] Last Admin: 02/28/24 08:58 Dose: 500 mcg Diphenhydramine HCl (Diphenhydramine Hcl 25 Mg Capsule) 25 mg PO TID PRN PRN Reason: allergies Last Admin: 02/28/24 20:06 Dose: 25 mg Docusate Sodium (Docusate Sodium 100 Mg Capsule) 100 mg PO DAILY [facility] Last Admin: 02/28/24 08:58 Dose: 100 mg Ferrous Sulfate (Ferrous Sulfate 324 Mg Tablet.) 324 mg PO DAILY [facility] Last Admin: 02/28/24 08:58 Dose: 324 mg Gabapentin (Gabapentin 400 Mg Capsule) 800 mg PO TID [facility] Last Admin: 02/28/24 20:07 Dose: 800 mg Hydrocortisone (Hydrocortisone 2.5 % Rectal Cr 30 Gm Tube) 1 appl NM BID [facility] Last Admin: 02/28/24 20:43 Dose: Not Given Hydroxyzine HCl (Hydroxyzine Hcl 25 Mg Tablet) 25 mg PO Q6H PRN PRN Reason: Anxiety Last Admin: 02/28/24 20:06 Dose: 25 mg Lorazepam (Lorazepam 1 Mg Tablet) 1 mg PO BID PRN PRN Reason: Anxiety Last Admin: 02/28/24 20:05 Dose: 1 mg Magnesium Hydroxide (Milk Of Magnesia 30 Ml Oral.Susp) 30 ml PO DAILY PRN PRN Reason: Constipation Meclizine HCl (Meclizine Hcl 25 Mg Tablet) 25 mg PO TID PRN PRN Reason: dizziness Last Admin: 02/16/24 13:13 Dose: 25 mg Melatonin (Melatonin 3 Mg Tablet) 9 mg PO BEDTIME PRN PRN Reason: Insomnia Last Admin: 02/28/24 20:06 Dose: 9 mg Midodrine (Midodrine Hcl 10 Mg Tablet) 10 mg PO TID@0900,1300,1800 [facility] Last Admin: 02/28/24 19:29 Dose: 10 mg Mirtazapine (Mirtazapine 15 Mg Tablet) 15 mg PO BEDTIME JYOTHI Last Admin: 02/28/24 20:06 Dose: 15 mg Naloxone HCl (Naloxone Hcl 0.4 Mg/Ml Vial) 0.04 mg IVPUSH Q5M PRN PRN Reason: Excessive sedation or RR < 8 Naloxone HCl (Naloxone Hcl 0.4 Mg/Ml Vial) 0.04 mg IVPUSH Q5M PRN PRN Reason: Excessive sedation or RR < 8 Nicotine Polacrilex (Nicotine Polacrilex 2 Mg Gum) 4 mg BUCCAL Q2H PRN PRN Reason: Nicotine Cravings Pt Own (Rosuvastatin (5 Mg Tablet)) 5 mg PO DAILY [facility] Last Admin: 02/28/24 08:58 Dose: 5 mg Omeprazole (Omeprazole 20 Mg Capsule.Dr) 20 mg PO DAILY@0630 [facility] Last Admin: 02/28/24 08:59 Dose: 20 mg Risperidone (Risperidone 1 Mg Tablet) 1 mg PO BID PRN PRN Reason: AH Last Admin: 02/13/24 10:05 Dose: 1 mg Risperidone (Risperidone 2 Mg Tablet) 2 mg PO BID [facility] Last Admin: 02/28/24 20:05 Dose: 2 mg Topiramate (Topiramate 100 Mg Tablet) 100 mg PO DAILY [facility] Last Admin: 02/28/24 08:59 Dose: 100 mg Tramadol HCl (Tramadol Hcl 50 Mg Tablet) 100 mg PO Q8H PRN PRN Reason: severe pain Last Admin: 02/28/24 12:24 Dose: 100 mg Trazodone HCl (Trazodone Hcl 50 Mg Tablet) 50 mg PO BEDTIME MRX1 PRN PRN Reason: Insomnia Last Admin: 02/28/24 20:05 Dose: 50 mg Triamcinolone Acetonide (Triamcinolone Acet 0.1 % Cream 15 Gm Tube) 1 appl TOPICAL DAILY PRN PRN Reason: rash Vitamin D (Cholecalciferol (Vitamin D3) 25 Mcg Tablet) 25 mcg PO DAILY JYOTHI Last Admin: 02/28/24 08:59 Dose: 25 mcg Allergies Allergies Allergy/AdvReac Type Severity Reaction Status Date / Time acetaminophen AdvReac Unknown Unknown Verified 01/22/24 09:01 atorvastatin AdvReac Severe elevated Uncoded 01/22/24 09:01 liver enzymes Assessment & Plan Assessment & Plan (1) MDD (major depressive disorder), recurrent, severe, with psychosis: Status: Acute Code(s): F33.3 - Major depressive disorder, recurrent, severe with psychotic symptoms (2) Post traumatic stress disorder (PTSD): Status: Acute Code(s): F43.10 - Post-traumatic stress disorder, unspecified (3) Pulmonary embolism: Qualifiers: Pulmonary embolism type: multiple subsegmental (without acute cor pulmonale) Qualified Code(s): I26.94 - Multiple subsegmental thrombotic pulmonary emboli without acute cor pulmonale Status: Acute Code(s): I26.99 - Other pulmonary embolism without acute cor pulmonale (4) MIGUEL (obstructive sleep apnea): Status: Acute Code(s): G47.33 - Obstructive sleep apnea (adult) (pediatric) (5) Chronic kidney disease, stage III (moderate): Qualifiers: Chronic kidney disease stage 3 subtype: stage 3a (GFR 45-59) Qualified Code(s): N18.31 - Chronic kidney disease, stage 3a Status: Acute Code(s): N18.30 - Chronic kidney disease, stage 3 unspecified Plan HPI: Patient is a 53-year-old female with history of MDD with psychotic features (r/o schizoaffective disorder, depressed type) PTSD, borderline traits, kidney cancer (one kidney). She first presented for admission for worsening depression and AH. Patient was feeling overall good enough until about 4 months ago. Without any obvious trigger, and despite continued adherence to medication regimen, she reports that her mood started to decline and AH (which is present independent of mood) became worse. Patient said she started having bad thoughts.. At which she became tearful and would not disclose them. She said her mood got worse and worse and voices told her to hurt herself; she started seeing shadow figures and having horrific nightmares where sometimes she can tell if she was awake or asleep but saw a ball of fire and things burning. AH worsened this past week and so patient self presented. She denies any history of manic type behaviors; ongoing PTSD symptoms. Patient does not remember history of med trials On M5, patient was started on Vraylar and ECT. She only received 2 ECT trials when she developed a pulmonary embolism; patient started on anticoagulation however ECT held. A few days later patient reported left-sided weakness which was evident on exam; she was transferred to medical floor, with head/neck CT/angiogram and then MRI; patient was diagnosed with complex migraine that can mimic a stroke; patient was stabilized and returned to the unit. There were some incidental findings which included thyroid nodules that medical team thought could be followed up as an outpatient. Now stabilized, patient returns to for continued treatment for depression. Patient reports she remains very depressed and continues to have AH which are very bothersome. Patient adamantly requests to restart ECT which she was hopeful would be helpful. Formulaton/clinical reasoning: Business Analyst Project Manager discussed case with patient's outpatient psychiatric provider Dr. Kathleen who has known patient for years. She reports that Patient has long history of depression, frequently severe, intermixed with PTSD symptoms, emotional reactivity; although patient endorses continue AH, Dr. Kathleen does not think necessarily an organic psychotic illness and only symptom is AH (no history of delusional thinking, no disorganized speech or behavior). Pt has had numerous medication trials with only partial response. Discussed treatment approaches and provider agrees that ECT trial is warranted; no benefit from Latuda thus far and although was only at 20 mg, agree to start Vraylar instead which maybe a little more robust in dealing with AH. Patient amenable to changing medications. [place]? only one kidney so hesitant. Also considerations are OCD/JAMIE regarding dx, although pt has AH (which IS independent of mood), she has no other psychotic symptoms HOSPITAL COURSE: 02/07 complaining of worsened command AH to kill self; tearful. Risperdal worked as PRN for few hours so she agreed to restart (failed in past). 1.continues on Vraylar 4.5mg daily: maybe helped with depression some, but AH remained 2.returned from Medical floor on Latuda (which was did not seem to help in past), but since so depressed and not sure if will get ECT, left it since monotherapy has not been effective (will leave for now, but likey dc) 3.Started on Risperdal 1mg TID since prn risperdal took away AH for a few hours 4. Currently on 3 antipsychotics but will likely dc some of them. -Regarding ECT, Discussed with Business Operations Consultant Dr. Guthrie who reports pt does not need O2 and From a pulmonary standpoint, the patient is doing well, stable. She may proceed with anesthesia and ECT at this time as long as she can the anticoagulation without interruptions. -Discussed with Anesthesiologis Dr. Willett who agrees that pulm recs are sufficient to proceed with ECT and that pt can remain on anticoagulation dx, although pt has AH (which IS independent of mood), she has no other psychotic symptoms 02/09/24 Discussed with pt sx with interpetr hx chronic hills depression hx depression ptsd ? dissociative hills would taper latuda ect when available next few days if remains unchanged some aspects of sx are chronic with recent exacerbation pt has been able to mainsafety no sob noted 02/12 pt remains depressed but says Risperdal helps when she takes it; says this morning, AH command, upsetting but dissipated with scheduled and prn risperdal. Discussed ECT and pt wants to continue 02/13 Patient had ECT this morning and reports that she has a headache and asked for medication and was given another dose of Fioricet. She denies any AH today for which she is relieved. Discussed medication management and she agrees to increase Risperdal for now and wants to continue with ECT 02/14 Patient reports that her mood is so-so which is the best it has been since she got here. Also says no AH which makes 2 days now enroll. Patient discussed medications and ECT and wants to continue with both. Discussed how it is unclear if AH is resolving because of ECT or Risperdal but because she is doing better will continue with this medication for now -patient asked about pulmonary embolisms and singer songwriter provided education 02/16: Continue plan of care 02/17: Continue plan of care Urine culture pending. 02/18 patient remains with significant psychomotor retardation and depression. Thankfully AH has resolved. Patient requires continue inpatient admission for continued ECT treatments. 02/19 Patient remains depressed; significant psychomotor retardation. AH remains resolved; not clear if it is due to ECT or Risperdal but given this improvement, singer songwriter hesitant to change medication regimen; patient agrees and wants to remain on current regimen. Patient continues to have a headache though she says it is getting less Patient anxious about medical comorbidities. Discussed patient's lab work, UTI and antibiotics; discussed again nodule on thyroid and liver function -will reorder LFTs to monitor -UA positive for gram-negative rods; discussed with hospitalist and patient started on Ceftin 500 mg b.i.d. for 7 days 02/20 consider possible JAMIE diagnosis; discussed ECT and patient will continue to next week; will reassess then 02/22/24 cont ect pt improved 02/22 continue treatment plan and ECT; patient does seem to be improving, mood is getting better and affect started to be brighter 02/23: Continue current management and treatment plan. Maalox. If no improvement, consider medical consult. 02/24: Check LFT's, repeat UA. Continue other management and treatment plan. 02/25 feeling better, mood improved and patient reports feeling better than she has in several years; AH remains resolved. Patient grateful for ECT. Discussed potential for discharge and maintenance ECT. 02/27 pt remains stable; discussed Abdominal US, results and conversation singer songwriter had with GI provider Baylee Gaming regarding concerns and follow-up appointment; discussed other medical issues and plan for follow-up Discussed ECT and patient will continue. She remains in good mood, feeling better than she has long time, no AH, no SI, hopeful. Patient has significantly improved. She is in a good mood and has now consistently said this is the best she has felt in about 2 or 3 years. Patient is grateful for ECT and will continue with maintenance ECT as an outpatient. During family meeting with , he agrees that she is doing much better and ready to come home. Patient would like discharge and feels ready to leave the hospital and continue treatment from the community. She has robust support for both her psychiatric and medical comorbidities and is returning to a supportive environment. Patient is not in imminent risk for harm to self or others and is appropriate to return to the community for treatment. Request for discharge honored. PLAN: CV Q 15 minute checks ECT #5 pending 02/25 (NOT including 1x ECT prior to PE) NPO Continue Risperdal 2mg BID for continued AH (up from 1mg TID) continue vryaler 4.5mg for depression currently on Vraylar for mood and Risperdal for AH. Numerous failed Med trials: Haldol: got tremor abilify: wt gain risperidone Geodon Cymbalta, Effexor, Lexapro, Pristiq mirtazapine lamictal Medical comorbidities: 1. L-sided weakness: Resolved, transient: complex migraine; Neuro consulted, likely complex migraine rather than CVA/TIA. Sumatriptan contraindicated; use Fioricet prn; continue topiramate 2. transaminasemia - has been a recurrent problem in past; US with Dopplers + GI cosult pending; LFTs improving; 3. recently diagnosed PE 01/31 [R main PA + segmental branches of RLL] - was started on therapeutic enoxaparin; transitioned to apixaban 4.orthostatic hypotension, chronic; - continue midodrine 5. Incidental finding on CTA: possible thinning of semicircular canals bilaterally with question of dehiscence noted on CTA, incidental (ED contacted ENT) likely transient, follow up as outpt, no further workup at this time 6. Incidental finding on CTA: thyroid nodule, incidentally noted on CTA, 1.9 cm left; outpt f/u with thyroid US 7. IBS-C; bowel regimen, outpt GI f/u 8. asthma not in acute exac; prn albuterol 9. MIGUEL; CPAP at night Patient educated on: diagnosis, medication risk/benefits, ECT and medical condition Informed Consent: understands Reason for continued inpatient stay Substantial Risk for: stable for discharge Time Spent With Patient Time: Total time managing care of this patient today ____ minutes.
[2024-02-29] MEDS: Omeprazole 20 MG CAPSULE.DR PO (08:35)
[2024-02-29 08:45] VITALS: BP 130/64; PULSE 75; TEMP 36.4; O2SAT 98
[2024-02-29] MEDS: Cariprazine HCl 1.5 MG CAPSULE PO (09:05)
[2024-02-29] MEDS: Cariprazine HCl 3 MG CAPSULE PO (09:05)
[2024-02-29] MEDS: Midodrine HCl 10 MG TABLET PO (09:05)
[2024-02-29] MEDS: Gabapentin 400 MG CAPSULE 800 MG PO (09:06)
[2024-02-29] MEDS: Cyanocobalamin (Vitamin B-12) 500 MCG TABLET PO (09:06)
[2024-02-29] MEDS: Docusate Sodium 100 MG CAPSULE PO (09:06)
[2024-02-29] MEDS: Apixaban 5 MG TABLET PO (09:06)
[2024-02-29] MEDS: Cholecalciferol (Vitamin D3) 25 MCG TABLET PO (09:06)
[2024-02-29] MEDS: Ferrous Sulfate 324 MG TABLET.DR PO (09:06)
[2024-02-29] MEDS: risperiDONE 2 MG TABLET PO (09:06)
[2024-02-29] MEDS: Topiramate 100 MG TABLET PO (09:06)
[2024-02-29] MEDS: Butalb/Acetamin/Caff 50/325/40 TABLET 2 TAB PO (09:11)
[2024-02-29] MEDS: ROSUVASTATIN 5 MG 5 EACH PO (09:13)
--- NOTE | 2024-02-29 10:45 | PM.PSYDC ---
DS: Providers Provider Date of Service: 02/29/24 Date of admission: 02/06/24 14:15 Date of discharge: 02/29/24 Primary care physician: Hung Montelongo MD Attending physician on admission: Umang Lau Consults: 02/07/24 11:04 Consult to Pulmonology Routine Consulting Provider: [facility] [place] Pulmonology Services Reason for consultation: risk stattify for ECT; recent PE now on Eloquis 02/13/24 09:44 Consult to Hospitalist Routine Comment: Consulting Provider: Hospitalist Reason For Exam: ECT risk stratifcation (Pulm said ok for ECT) Attending physician on discharge: Umang Lau DS: Diagnosis Discharge Diagnosis (1) MDD (major depressive disorder), recurrent, severe, with psychosis: Status: Acute (2) Post traumatic stress disorder (PTSD): Status: Acute (3) Pulmonary embolism: Status: Acute (4) MIGUEL (obstructive sleep apnea): Status: Acute (5) Chronic kidney disease, stage III (moderate): Status: Acute DS: Medications Discharge Medications Home Medications: Home Medications ?Medication ?Instructions ?Recorded ?Confirmed lorazepam 1 mg tablet 1 mg PO BID PRN Anxiety 11/02/22 02/06/24 potassium citrate 5 mEq (540 mg) 5 meq PO DAILY 06/13/23 02/06/24 tablet,extended release melatonin 5 mg tablet 5 mg PO BEDTIME PRN Insomnia 07/14/23 02/06/24 mirtazapine 15 mg tablet 15 mg PO BEDTIME 12/05/23 02/06/24 naproxen 500 mg tablet 500 mg PO DAILY 12/05/23 02/06/24 topiramate 100 mg tablet 100 mg PO DAILY 12/05/23 02/06/24 albuterol sulfate 90 mcg/actuation 2 puff inhalation Q6H PRN wheezing 01/23/24 02/06/24 aerosol inhaler (Ventolin HFA) diphenhydramine HCl 25 mg capsule 25 mg PO TID PRN allergies 01/23/24 02/06/24 (Banophen) lurasidone 40 mg tablet 40 mg PO DAILY 01/23/24 02/06/24 pantoprazole 40 mg tablet,delayed 40 mg PO DAILY@0630 01/23/24 02/06/24 release Previous Rx's ?Medication ?Instructions ?Recorded CPAP device and all related #1 ea 06/03/22 supplies cyanocobalamin (vitamin B-12) 500 500 mcg PO DAILY #30 tabs 06/03/22 mcg tablet nystatin 100,000 unit/mL oral 1 ml PO TID 10 days #30 mL 06/21/23 suspension blood pressure monitor #1 ea 07/13/23 docusate sodium 100 mg capsule 100 mg PO DAILY #30 caps 07/26/23 bisacodyl 5 mg tablet,delayed 10 mg (2 x 5 mg) PO BEDTIME #180 08/30/23 release (Dulcolax (bisacodyl)) tabs cholecalciferol (vitamin D3) 25 25 mcg PO DAILY 90 days #90 caps 09/27/23 mcg (1,000 unit) capsule (Vitamin D3) tramadol 50 mg tablet 100 mg (2 x 50 mg) PO Q8H PRN 11/13/23 severe pain 30 days #180 tabs mometasone 0.1 % topical cream 1 appl topical DAILY PRN rash #45 11/30/23 grams ferrous sulfate 325 mg (65 mg 325 mg PO DAILY #90 tabs 12/31/23 iron) tablet gabapentin 400 mg capsule 800 mg (2 x 400 mg) PO TID 30 days 01/03/24 #180 caps meclizine 25 mg tablet 25 mg PO TID PRN dizziness 30 days 01/04/24 #90 tabs midodrine 10 mg tablet 10 mg PO TID #30 tabs 01/04/24 apixaban 5 mg tablet (Eliquis) 5 mg PO BID #1 tab 02/06/24 apixaban 5 mg tablet (Eliquis) 10 mg (2 x 5 mg) PO BID #1 tab 02/06/24 lphlltvbcd-rqhamrcftclei-pvjybkro 2 tab PO Q6H PRN Migraine Headache 02/06/24 50 mg-325 mg-40 mg tablet #1 tab cariprazine 1.5 mg capsule 4.5 mg (3 x 1.5 mg) PO DAILY #1 cap 02/06/24 (Vraylar) hydroxyzine HCl 25 mg tablet 25 mg PO Q6H PRN Anxiety #1 tab 02/06/24 nicotine (polacrilex) 2 mg gum 4 mg buccal Q2H PRN Nicotine 02/06/24 Cravings #1 ea nicotine 21 mg/24 hr daily 21 mg transdermal DAILY PRN 02/06/24 transdermal patch smoking cessation #1 ea rosuvastatin 5 mg tablet 5 mg PO DAILY #90 tabs 02/24/24 Mental Status Exam Mental Status Exam Narrative: Pt is alert and oriented; behavior is cooperative, calm; dressed in casual attire with adequate grooming; mood is described as good affect still noticeably brighter; eye contact appropriate; Speech remains soft volume, but normal rate and prosody; no psychomotor retardation present; thought process is goal oriented; Thought content is on symptoms, tx; otherwise pertinent to relevant topics and without any delusional content, paranoid ideations or grandiosity; no SI; no HI; No AH Patients insight and judgment fair Data Data Completed and Pending Completed studies during hospitalization [Text1]: 02/25/24 02/25/24 16:02 16:29 Total Bilirubin 0.2 Direct Bilirubin < 0.2 AST 83 H ALT 136 H Alkaline Phosphatase 135 H Total Protein 6.7 Albumin 3.8 Urine Color Yellow Urine Appearance Clear Urine pH 6.0 Ur Specific [place] 1.015 Urine Protein Negative Urine Glucose (UA) Negative Urine Ketones Negative Urine Blood Small (1+) H Urine Nitrite Negative Ur Leukocyte Esterase Negative Urine RBC >20 H Urine WBC 0-5 Ur Squamous Epith Cells 0-2 Urine Bacteria Trace Hyaline Casts 0-2 02/18/24 11:10 Urine clean catch - Clean Catch Midstream Urine Culture - Final Escherichia coli Imaging Diagnostic Imaging Impressions Abdomen Ultrasound 02/26/24 18:54 IMPRESSION: 1. There is coarsened hepatic echotexture, consistent with fatty infiltration or hepatocellular disease. Please correlate clinically. No focal hepatic mass or intrahepatic biliary dilatation is seen. 2. The gallbladder is surgically absent. 3. Technically limited ultrasound examination of the pancreas. Electronically signed by: Alfred Jenkins MD 02/27/2024 05:57 PM EDT DS: Summary Hospital Course Hospital Course: HPI: Patient is a 53-year-old female with history of MDD with psychotic features (r/o schizoaffective disorder, depressed type) PTSD, borderline traits, kidney cancer (one kidney), PE (while on M5) She first presented for admission for worsening depression and AH. Patient was feeling overall good enough until about 4 months ago. Without any obvious trigger, and despite continued adherence to medication regimen, she reports that her mood started to decline and AH (which is present independent of mood) became worse. Patient said she started having bad thoughts.. At which she became tearful and would not disclose them. She said her mood got worse and worse and voices told her to hurt herself; she started seeing shadow figures and having horrific nightmares where sometimes she can tell if she was awake or asleep but saw a ball of fire and things burning. AH worsened this past week and so patient self presented. She denies any history of manic type behaviors; ongoing PTSD symptoms. Patient does not remember history of med trials On M5, patient was started on Vraylar and ECT. She only received 2 ECT trials when she developed a Pulmonary Embolism; patient started on anticoagulation however ECT held. A few days later patient reported left-sided weakness which was evident on exam; she was transferred to medical floor, with head/neck CT/angiogram and then MRI; patient was diagnosed with complex migraine that can mimic a stroke; patient was stabilized and returned to the unit. There were some incidental findings which included thyroid nodules that medical team thought could be followed up as an outpatient. Now stabilized, patient returns to for continued treatment for depression. Patient reports she remains very depressed and continues to have AH which are very bothersome. Patient adamantly requests to restart ECT which she was hopeful would be helpful. Formulaton/clinical reasoning: Clinical Analyst discussed case with patient's outpatient psychiatric provider Dr. Kathleen who has known patient for years. She reports that Patient has long history of depression, frequently severe, intermixed with PTSD symptoms, emotional reactivity; although patient endorses continue AH, Dr. Kathleen does not think necessarily an organic psychotic illness and only symptom is AH (no history of delusional thinking, no disorganized speech or behavior). Pt has had numerous medication trials with only partial response. Discussed treatment approaches and provider agrees that ECT trial is warranted; no benefit from Latuda thus far and although was only at 20 mg, agree to start Vraylar instead which maybe a little more robust in dealing with AH. Patient amenable to changing medications. [place]? only one kidney so hesitant. Also considerations are OCD/JAMIE regarding dx, although pt has AH (which IS independent of mood), she has no other psychotic symptoms HOSPITAL COURSE: 02/07 complaining of worsened command AH to kill self; tearful. Risperdal worked as PRN for few hours so she agreed to restart (failed in past). 1.continues on Vraylar 4.5mg daily: maybe helped with depression some, but AH remained 2.returned from Medical floor on Latuda (which was did not seem to help in past), but since so depressed and not sure if will get ECT, left it since monotherapy has not been effective (will leave for now, but likey dc) 3.Started on Risperdal 1mg TID since prn risperdal took away AH for a few hours 4. Currently on 3 antipsychotics; will taper and DC Latuda -Regarding ECT, Discussed with Sociology Adjunct Instructor Dr. Guthrie who reports pt does not need O2 and From a pulmonary standpoint, the patient is doing well, stable. She may proceed with anesthesia and ECT at this time as long as she can the anticoagulation without interruptions. -Discussed with Anesthesiologis Dr. Willett who agrees that pulm recs are sufficient to proceed with ECT and that pt can remain on anticoagulation dx, although pt has AH (which IS INdependent of mood), she has no other psychotic symptoms 02/09/24 Discussed with pt sx with interpetr hx chronic hills depression hx depression ptsd ? dissociative hills would taper latuda ect when available next few days if remains unchanged some aspects of sx are chronic with recent exacerbation pt has been able to mainsafety no sob noted 02/12 pt remains depressed but says Risperdal helps when she takes it; says this morning, AH command, upsetting but dissipated with scheduled and prn risperdal. Discussed ECT and pt wants to continue 02/13 Patient had ECT this morning and reports that she has a headache and asked for medication and was given another dose of Fioricet. She denies any AH today for which she is relieved. Discussed medication management and she agrees to increase Risperdal for now and wants to continue with ECT 02/14 Patient reports that her mood is so-so which is the best it has been since she got here. Also says no AH which makes 2 days now enroll. Patient discussed medications and ECT and wants to continue with both. Discussed how it is unclear if AH is resolving because of ECT or Risperdal but because she is doing better will continue with this medication for now -patient asked about pulmonary embolisms and check writer provided education 02/18 patient remains with significant psychomotor retardation and depression. Thankfully AH has resolved. Patient requires continue inpatient admission for continued ECT treatments. 02/19 Patient remains depressed; significant psychomotor retardation. AH remains resolved; not clear if it is due to ECT or Risperdal but given this improvement, check writer hesitant to change medication regimen; patient agrees and wants to remain on current regimen. Patient continues to have a headache though she says it is getting less Patient anxious about medical comorbidities. Discussed patient's lab work, UTI and antibiotics; discussed again nodule on thyroid and liver function -will reorder LFTs to monitor -UA positive for gram-negative rods; discussed with hospitalist and patient started on Ceftin 500 mg b.i.d. for 7 days 02/22 continue treatment plan and ECT; patient does seem to be improving, mood is getting better and affect started to be brighter 02/25 feeling better, mood improved and patient reports feeling better than she has in several years; AH remains resolved. Patient grateful for ECT. Discussed potential for discharge and maintenance ECT. 02/27 pt remains stable; discussed Abdominal US, results and conversation check writer had with GI provider Baylee Gaming regarding concerns and follow-up appointment; discussed other medical issues and plan for follow-up Discussed ECT and patient will continue. She remains in good mood, feeling better than she has long time, no AH, no SI, hopeful. Patient will remain on both Vraylar and Risperdal for now as she is newly stabilized on current regimen. Clinical Analyst discussed case with outpatient provider Dr. Earl yoon who will work with patient possibly eliminate Risperdal (as AH mood congruent) verse Vraylar Patient has significantly improved. She is in a good mood and has now consistently said this is the best she has felt in about 2 or 3 years. Patient is grateful for ECT and will continue with maintenance ECT as an outpatient. During family meeting with , he agrees that she is doing much better and ready to come home. Patient would like discharge and feels ready to leave the hospital and continue treatment from the community. She has robust support for both her psychiatric and medical comorbidities and is returning to a supportive environment. Patient is not in imminent risk for harm to self or others and is appropriate to return to the community for treatment. Request for discharge honored. Medical comorbidities: 1. Resolved L-sided weakness: Due to complex migraine; fully resolved. Sumatriptan contraindicated; use Fioricet prn; continue topiramate 2. transaminasemia - has been a recurrent problem in past; US with Dopplers + GI cosult pending; LFTs improving; 3. recently diagnosed pulmonary embolism 01/31 [R main PA + segmental branches of RLL] - discharged on apixaban 4. orthostatic hypotension, chronic; - continue midodrine 5. Incidental finding on CTA: possible thinning of semicircular canals bilaterally with question of dehiscence noted on CTA, incidental (ED contacted ENT) likely transient, follow up as outpt, no further workup at this time 6. Incidental finding on CTA: thyroid nodule, incidentally noted on CTA, 1.9 cm left; outpt f/u with thyroid US 7. IBS-C; bowel regimen, outpt GI f/u 8. asthma not in acute exac; prn albuterol 9. MIGUEL; CPAP at night 10 Abdominal US: Discussed with GI provider Baylee Gaming will has been following and will follow-up with patient 02/25 IMPRESSION: 1. There is coarsened hepatic echotexture, consistent with fatty infiltration or hepatocellular disease. Please correlate clinically. No focal hepatic mass or intrahepatic biliary dilatation is seen. 2. The gallbladder is surgically absent. Numerous failed Med trials: Haldol: got tremor abilify: wt gain risperidone: helped w/ mood congruent AH Geodon Cymbalta, Effexor, Lexapro, Pristiq mirtazapine lamictal Time spent discussing smoking cessation with patient: 3 to 10 minutes Status at Discharge Functional status at discharge: independent ambulation Overall status at discharge: patient is back to baseline Time Spent with Patient Time attestation: Total time managing care of this patient today __50__ minutes. Time spent: Greater than 30 minutes Specific discharge activities: Met with patient; discussed with team, charting; sign-out to outpatient providers, prescriptions Discharge Plan Discharge Anticipated Discharge Date/Time: 02/29/24 11:40 Patient Disposition: Home, Self-Care Discharge Diagnosis: MDD, recurrent, severe with psychotic symptoms (AH), in full remission Referrals: [facility] Therapy with Regla Drake [Other] - 03/05/24 11:00 am Outpatient ECT at [facility] [Other] - 03/06/24 (The post anesthesia care unit will call you the afternoon before the appointment to confirm time and give instructions for procedure. ) Psychiatry with Dr. Maya Parks [Other] - 03/21/24 2:30 pm Hung Montelongo MD [Primary Care Provider] - 1 Week (Office will call PT with appointment.) Baylee Gaming, [employer] [Nurse Practitioner] - 03/18/24 11:30 am Discharge Medications: New risperidone 2 mg Tablet 2 mg PO BID 30 Days Qty: 60 0RF trazodone 50 mg Tablet 50 mg PO BEDTIME PRN (Reason: Insomnia) 30 Days Qty: 30 0RF tramadol 50 mg Tablet 100 mg PO Q8H PRN (Reason: severe pain) 30 Days Qty: 60 0RF Continued (DME) CPAP device and all related supplies See Rx Instructions .Route .MEDSUPPLY Qty: 1 0RF Rx Instructions: As directed cholecalciferol (vitamin D3) [Vitamin D3] 25 mcg (1,000 unit) capsule 25 mcg PO DAILY 90 Days Qty: 90 3RF meclizine 25 mg tablet 25 mg PO TID PRN (Reason: dizziness) 30 Days Qty: 90 1RF midodrine 10 mg tablet 10 mg PO TID 30 Days Qty: 90 1RF Rx Instructions: do not give last dose of day after 6PM or within 4 hrs of bedtime [id number]-wbsrefayvcrcg-kzcf 50-325-40 mg Tablet 2 tab PO Q6H PRN (Reason: Migraine Headache) 30 Days Qty: 8 0RF diphenhydramine HCl [Banophen] 25 mg capsule 25 mg PO TID PRN (Reason: allergies) 30 Days Qty: 90 0RF albuterol sulfate [Ventolin HFA] 90 mcg/actuation HFA aerosol inhaler 2 puff inhalation Q6H PRN (Reason: wheezing) 30 Days Qty: 6.7 0RF rosuvastatin 5 mg tablet 5 mg PO DAILY 30 Days Qty: 30 1RF Eliquis 5 mg Tablet 5 mg PO BID 30 Days Qty: 60 0RF gabapentin 800 mg tablet 800 mg PO TID 30 Days Qty: 90 0RF hydroxyzine HCl 25 mg Tablet 25 mg PO Q6H PRN (Reason: Anxiety) 30 Days Qty: 90 0RF mirtazapine 15 mg tablet 15 mg PO BEDTIME 30 Days Qty: 30 0RF lorazepam 1 mg tablet 1 mg PO BID PRN (Reason: Anxiety) 30 Days Qty: 60 0RF Vraylar 1.5 mg Capsule 4.5 mg PO DAILY 30 Days Qty: 90 0RF topiramate 100 mg tablet 100 mg PO DAILY 30 Days Qty: 30 0RF cyanocobalamin (vitamin B-12) 500 mcg Tablet 500 mcg PO DAILY 30 Days Qty: 30 0RF pantoprazole 40 mg tablet,delayed release (DR/EC) 40 mg PO DAILY@0630 30 Days Qty: 30 0RF mometasone 0.1 % cream 1 appl topical DAILY PRN (Reason: rash) Qty: 45 1RF docusate sodium 100 mg capsule 100 mg PO DAILY Qty: 30 3RF bisacodyl [Dulcolax (bisacodyl)] 5 mg tablet,delayed release (DR/EC) 10 mg PO BEDTIME Qty: 180 4RF Changed melatonin 5 mg tablet 10 mg PO BEDTIME PRN (Reason: Insomnia) 30 Days Qty: 60 0RF Held potassium citrate 5 mEq (540 mg) tablet extended release 5 meq PO DAILY Hold Instructions: Resume on 03/14/24. Discuss with PCP whether to continue Discontinued tramadol 50 mg tablet 100 mg PO Q8H PRN (Reason: severe pain) 30 Days Qty: 180 0RF ferrous sulfate 325 mg (65 mg iron) tablet 325 mg PO DAILY Qty: 90 0RF lurasidone 40 mg tablet 40 mg PO DAILY nicotine (polacrilex) 2 mg Gum 4 mg buccal Q2H PRN (Reason: Nicotine Cravings) Qty: 1 0RF nicotine 21 mg/24 hr Patch 24 Hour 21 mg transdermal DAILY PRN (Reason: smoking cessation) Qty: 1 0RF Eliquis 5 mg Tablet 10 mg PO BID Qty: 1 0RF Rx Instructions: ends 02/12/2024 after am dose nystatin 100,000 unit/mL suspension 1 ml PO TID 10 Days Qty: 30 0RF Rx Instructions: swish and swallow naproxen 500 mg tablet 500 mg PO DAILY No Action ferrous sulfate 325 mg (65 mg iron) tablet 325 mg PO DAILY 90 Days Qty: 90 0RF (DME) blood pressure monitor Kit See Rx Instructions .ROUTE .MEDSUPPLY Qty: 1 0RF Rx Instructions: As directed sumatriptan succinate 50 mg tablet PO naproxen 500 mg tablet PO lurasidone 40 mg tablet 40 mg PO DAILY Discharge Orders: Discharge Order (Routine); Ordered 02/19/24 Ordered By: Roby Flores Diet: Regular diet Activity on Discharge: As tolerated Stand Alone Forms: Patient Portal Discharge page, Community Support Print Language: Prydeinig Care Plan Goals: Maintain mood and safe behaviors Take medications as prescribed Practice coping skills Continue with outpatient providers and reach out to them as needed Health Concerns: Psychiatric: Mood stability and behaviors Medical: 1. Pulmonary embolism, on Eliquis 2. Hemiplegic/Complex migraine 3. Chronic transaminasemia; Concern for fatty liver disease with chronically elevated LFT 4. Incidental finding on CTA: thyroid nodule, incidentally noted on CTA, 1.9 cm left; outpt f/u with thyroid US 5 .Incidental finding on CTA: possible thinning of semicircular canals bilaterally with question of dehiscence noted on CTA, incidental finding, likely transient, follow up as outpt 6. Irritable bowel syndrome 7. asthma; prn albuterol 8. MIGUEL; CPAP at night 9. orthostatic hypotension, chronic; on midodrine 10. CKD Plan of Treatment: Follow up with your PCP, psychiatric provider and other outpatient providers regarding above concerns Take medications as prescribed NEXT ECT on 03/06/24 do not eat or drink anything after midnight, day of ECT Short day surgery will call you the day before to tell you the time to arrive Assessment: Risk assessment at time of discharge:? Patient was interviewed prior to discharge and found to be fully oriented and without any SI or HI. Patient has improved insight and judgment and wants to continue treatment. Patient is not in imminent risk of harm to self or others and has a safety plan that includes presenting to the closest ER or calling 911 if feeling unsafe.? Patient has been observed closely by nursing and unit staff throughout admission; patient has not engaged in any behaviors that suggest dangerousness to self or others and has demonstrated appropriate behaviors and impulse control Discharge Date/Time: 02/29/24 12:10
== END 2024-02-29 12:10 | disposition home or self-care (01) | DRG 751 ==
PROVIDERS: Psychiatry & Neurology Psychiatry; Admitting Provider Psychiatry & Neurology Psychiatry; PCP Internal Medicine; Visit Provider Psychiatry & Neurology Psychiatry
PROC: GZB4ZZZ Other Electroconvulsive Therapy (ICD-10-PCS; CPT 90870; principal; 2024-02-14 08:00)
DX: F33.3 Major depressive disorder, recurrent, severe with psychotic symptoms (principal); I26.99 Other pulmonary embolism without acute cor pulmonale; G43.409 Hemiplegic migraine, not intractable, without status migrainosus; K58.1 Irritable bowel syndrome with constipation; N18.31 Chronic kidney disease, stage 3a; F43.10 Post-traumatic stress disorder, unspecified; I95.1 Orthostatic hypotension; J45.909 Unspecified asthma, uncomplicated; G47.33 Obstructive sleep apnea (adult) (pediatric); Z79.01 Long term (current) use of anticoagulants; Z79.899 Other long term (current) drug therapy
CPT/HCPCS: 36415; 76705; 80076; 81001; 84443; 87086; 87186; 90870; 94660; J0330; J1596; J1805; J1885; J2405; J2704

== ENCOUNTER → 2024-02-06 14:15 | Outpatient (BNV) | payer OTHER, SELFPAY | PROVIDERS: Admitting Provider Psychiatry & Neurology Psychiatry; PCP Internal Medicine; Visit Provider Hospitalist | DX: I26.94 Multiple subsegmental thrombotic pulmonary emboli without acute cor pulmonale (principal); Z01.811 Encounter for preprocedural respiratory examination | CPT/HCPCS: 99223 ==

== ENCOUNTER → 2024-02-06 14:15 | Outpatient (BNV) | payer OTHER, SELFPAY | PROVIDERS: Admitting Provider Psychiatry & Neurology Psychiatry; PCP Internal Medicine; Visit Provider Psychiatry & Neurology Psychiatry | DX: F33.3 Major depressive disorder, recurrent, severe with psychotic symptoms (principal); F43.11 Post-traumatic stress disorder, acute; I26.94 Multiple subsegmental thrombotic pulmonary emboli without acute cor pulmonale; G47.33 Obstructive sleep apnea (adult) (pediatric); N18.31 Chronic kidney disease, stage 3a | CPT/HCPCS: 90792; 90870; 99231; 99232; 99239 ==

== ENCOUNTER → 2024-02-06 14:15 | Outpatient (BNV) | payer OTHER, SELFPAY | PROVIDERS: Admitting Provider Psychiatry & Neurology Psychiatry; PCP Internal Medicine; Visit Provider Psychiatry & Neurology Psychiatry | DX: F33.3 Major depressive disorder, recurrent, severe with psychotic symptoms (principal) | CPT/HCPCS: 90870; 99231; 99232 ==

== ENCOUNTER 2024-03-01 11:22 | Outpatient (REF) | payer OTHER, SELFPAY ==
[2024-03-01 12:36] LABS: Appearance Urine Clear; Color Urine Yellow; Glucose Urine UA Negative (Negative); Leukocyte Esterase Urine Small (1+) (Negative); Nitrite Urine Positive (Negative); PH 5.5 (5.0-9.0); UMIC TRIGGER UA YES; Urine Blood Trace (Negative); Urine Ketones Negative (Negative); Urine Protein Negative (Neg-Trace)
[2024-03-01 12:41] LABS: Bacteria Urine 4+ (None Seen); Hyaline Casts Urine 0-2 /LPF (0-2); RBC Urine 0-2 /HPF (0-2); Squamous Epithelial Cell Urine 0-2 /HPF (0-2)
[2024-03-01 13:10] LABS: Anion Gap 11 (12-20); Blood Urea Nitrogen 17 mg/dL (9-16); Calcium 8.8 mg/dL (8.4-10.2); Carbon Dioxide 24 mmol/L (22-29); Chloride 112 mmol/L (96-108); Estimated Glomerular Filt Rate 58; Potassium 4.5 mmol/L (3.3-5.1); Sodium 142 mmol/L (135-145)
[2024-03-01 13:27] LABS: Creatinine Urine 128.39 mg/dL; Microalbum/Creatinine Ratio Ur 10.9 ug/mg cr (<30); Protein/Creatinine Ratio, Ur 0.07 (<0.2); Total Protein Urine Random 9 mg/dL (<12)
== END 2024-03-01 11:23 | disposition home or self-care (01) ==
LOC: HO.LAB 11:22
PROVIDERS: PCP Internal Medicine; Visit Provider Internal Medicine Nephrology
DX: I10 Essential (primary) hypertension (principal); N18.2 Chronic kidney disease, stage 2 (mild)
CPT/HCPCS: 36415; 80051; 81001; 82043; 82310; 82565; 82570; 84156; 84520

== ENCOUNTER 2024-03-01 11:47 | Outpatient (REF) | payer OTHER, SELFPAY | END 2024-03-01 11:48 | disposition home or self-care (01) | LOC: HO.US 11:47 | PROVIDERS: PCP Internal Medicine; Visit Provider Nurse Practitioner Family | DX: N39.0 Urinary tract infection, site not specified (principal) | CPT/HCPCS: 76770 ==

== ENCOUNTER 2024-03-05 11:29 | Outpatient (AMB) | payer OTHER, SELFPAY ==
--- NOTE | 2024-03-05 11:31 | MHC.OFFVIS ---
Vital Signs 03/05/24 11:44 Height 5 ft 3 in Weight 165 lb 5.547 oz BMI 29.3 BP 120/66 Blood Pressure Location Lt brachial Position Sitting Intake Visit Reasons: Ct follow-up Intake Note: Patient is seen in office for CT scan results, following umbilical hernia. Pt c/o: here for results Administrative Hearing Officer Required: Yes Administrative Hearing Officer Services: Administrative Hearing Officer Present Administrative Hearing Officer Name: Geovanni Information Interpreted: non-clinical & clinical Accompanied by: Self / Same As Patient Allergies acetaminophen Adverse Reaction (Unknown, Verified 03/05/24 11:44) Unknown atorvastatin Adverse Reaction (Severe, Uncoded 03/05/24 11:44) elevated liver enzymes HPI Comments Details: Patient presents for follow-up. CT scan was done in December. We have the results of although it is not in the computer for reasons that are unclear. It demonstrates abdominal wall to be intact with no evidence of any recurrence of her hernia of the left flank. [facility] Medical History Chronic kidney disease, stage III (moderate) Obesity (BMI 30-39.9) Renal cyst Diverticulosis Tubular adenoma Asthma Spondylosis of lumbar spine Sacroiliitis Dizziness of unknown etiology Chronic constipation Hx of schizophrenia Panic attacks PTSD (post-traumatic stress disorder) Dyspareunia Pyelonephritis Ingrown toenail Iron deficiency anemia Major depression, recurrent Anxiety Insomnia Tremor Orthostatic hypotension Incisional hernia without obstruction or gangrene Avascular necrosis of femoral head Bilateral carpal tunnel syndrome Peroneal neuropathy Lumbar degenerative disc disease Vitamin D deficiency GERD (gastroesophageal reflux disease) Migraine Hyperlipidemia Surgical History History of left nephrectomy (~1999) History of colonoscopy History of surgery Hx of cystoscopy History of bilateral breast reduction surgery History of hysterectomy History of cholecystectomy History of endoscopy (~06/2016) History of bladder repair surgery (~03/2015) S/P cystoscopy (~07/30/12) S/P panniculectomy History of hernia repair (~03/29/10) History of bladder surgery (~10/2009) History of gastric bypass (~2008) History of incisional hernia repair (~1999) Hx of umbilical hernia repair (~1999) H/O left nephrectomy S/P laparoscopic sleeve gastrectomy Family History Father Liver cancer Mother Breast cancer Sister Lung cancer Other Mental health problem Social History Household Members: Spouse and Family Housing: House Do you presently have visiting nurse or other home services: No Alcohol intake: never Patient Tobacco Use Status: Never used Tobacco e-Cigarette/Vaping Use: Never Used Second Hand Smoke Exposure: No Advance Directives Date on File: 07/12/21 service: No Current occupational status: disabled Sexual orientation: Straight/Heterosexual Cognitive needs: No Hearing needs: No Vision needs: Yes Female Reproductive History Menstrual Age of Menarche: 13 Physical Exam Vital Signs: Last Vital Signs BP 120/66 03/05/24 11:44 BMI result Body Mass Index 29.3 GI Other: Abdomen is soft, benign. Status quo from previous exam. Assessment & Plan Assessment & Plan (1) Abdominal wall pain in left flank: Code(s): R10.9 - Unspecified abdominal pain Category: Surgical Plan At present, no acute surgical issues. Patient will be treated conservatively. All questions answered. She will otherwise follow-up p.r.n.. Coding Level of Care Code Est Pt Level 4 (65865) Diagnoses Abdominal wall pain in left flank R10.9
[2024-03-05 11:44] VITALS: BP 120/66; BMI 29.3
== END 2024-03-05 11:47 | disposition home or self-care (01) ==
PROVIDERS: PCP Internal Medicine; Visit Provider Surgery
DX: R10.9 Unspecified abdominal pain (principal)
CPT/HCPCS: 99214

== ENCOUNTER → 2024-03-05 11:29 | Outpatient (BNVA) | payer OTHER, SELFPAY | PROVIDERS: PCP Internal Medicine; Visit Provider Surgery | DX: R10.9 Unspecified abdominal pain (principal) | CPT/HCPCS: 99212 ==

== ENCOUNTER 2024-03-06 05:45 | Day surgery (SDC) | payer OTHER, SELFPAY ==
[2024-03-06] VITALS (7 sets, daily range): BP systolic 122–146; BP diastolic 71–85; PULSE 66–78; RESP 16–19; TEMP 36.1–36.6; O2SAT 95–99; BMI 30.8
[2024-03-06] MEDS: Lactated Ringers 1,000 ML 100 ML IVCONT (06:49)
--- NOTE | 2024-03-06 07:05 | HO.ANESPROP2 ---
[facility] Active Problems Active Problems: All Active Problems Abdominal wall pain in left flank (Acute) Pre-op chest exam (Acute) Pulmonary embolism (Acute) Abnormal LFTs (Acute) Left-sided weakness (Acute) Shortness of breath (Acute) Cough (Acute) Chest pain (Acute) PTSD (post-traumatic stress disorder) (Acute) Depression with suicidal ideation (Acute) Dizziness (Acute) Ventral hernia (Acute) Flank hernia (Acute) Sacroiliac joint dysfunction of both sides (Acute) Abdominal pannus (Acute) Depression (Acute) Hypotension (Acute) Lower urinary tract symptoms (Acute) Complicated urinary tract infection (Acute) Osteoporosis screening (Acute) Chronic kidney disease, stage III (moderate) (Acute) Paresthesia (Acute) Recurrent urinary tract infection (Acute) Solitary kidney, acquired (Acute) Orthostatic dizziness (Acute) Symptomatic abdominal panniculus (Acute) Panniculitis (Acute) Bilateral leg weakness (Acute) Obesity (Acute) Overweight (BMI 25.0-29.9) (Acute) Urinary tract infection (Acute) Dysuria (Acute) Skin laxity (Acute) Painful sexual intercourse (Acute) Dyspareunia, female (Acute) Nephrolithiasis (Acute) Constipation (Acute) Colon cancer screening (Acute) Overweight (Acute) Sacroiliac joint pain (Acute) Left lumbar radiculopathy (Acute) Memory impairment (Acute) Renal cyst (Acute) Transaminitis (Acute) Elevated LFTs (Acute) Abdominal wall mass (Acute) Annual physical exam (Acute) Bilateral elbow joint pain (Acute) Hip pain, bilateral (Acute) Knee pain, bilateral (Acute) Arthralgia (Acute) UTI (urinary tract infection) (Acute) Post traumatic stress disorder (PTSD) (Acute) MDD (major depressive disorder), recurrent, severe, with psychosis (Acute) Encounter to discuss test results (Acute) Urinary frequency (Acute) Urinary incontinence (Acute) Excess skin (Acute) Renal calculus, right (Acute) MIGUEL (obstructive sleep apnea) (Acute) Obesity (BMI 30-39.9) (Acute) Renal cyst (Acute) Diverticulosis (Acute) Tubular adenoma (Acute) Spondylosis of lumbar spine (Acute) Sacroiliitis (Acute) Dizziness of unknown etiology (Acute) Chronic constipation (Acute) History of gastric bypass (Acute ~2008) Dyspareunia (Acute) Pyelonephritis (Acute) Ingrown toenail (Acute) Iron deficiency anemia (Acute) Major depression, recurrent (Acute) Anxiety (Acute) Insomnia (Acute) Tremor (Acute) Orthostatic hypotension (Acute) Incisional hernia without obstruction or gangrene (Acute) Avascular necrosis of femoral head (Acute) Bilateral carpal tunnel syndrome (Acute) Peroneal neuropathy (Acute) Lumbar degenerative disc disease (Acute) Vitamin D deficiency (Acute) GERD (gastroesophageal reflux disease) (Acute) Migraine (Acute) Hyperlipidemia (Acute) Past Medical History Medical History Chronic kidney disease, stage III (moderate) Obesity (BMI 30-39.9) Renal cyst Diverticulosis Tubular adenoma Asthma Spondylosis of lumbar spine Sacroiliitis Dizziness of unknown etiology Chronic constipation Hx of schizophrenia Panic attacks PTSD (post-traumatic stress disorder) Dyspareunia Pyelonephritis Ingrown toenail Iron deficiency anemia Major depression, recurrent Anxiety Insomnia Tremor Orthostatic hypotension Incisional hernia without obstruction or gangrene Avascular necrosis of femoral head Bilateral carpal tunnel syndrome Peroneal neuropathy Lumbar degenerative disc disease Vitamin D deficiency GERD (gastroesophageal reflux disease) Migraine Hyperlipidemia Family History Family History Father Liver cancer Mother Breast cancer Sister Lung cancer Other Mental health problem Family history of problems with anesthesia: No Surgical History Surgical History History of left nephrectomy (~1999) History of colonoscopy History of surgery Hx of cystoscopy History of bilateral breast reduction surgery History of hysterectomy History of cholecystectomy History of endoscopy (~06/2016) History of bladder repair surgery (~03/2015) S/P cystoscopy (~07/30/12) S/P panniculectomy History of hernia repair (~03/29/10) History of bladder surgery (~10/2009) History of gastric bypass (~2008) History of incisional hernia repair (~1999) Hx of umbilical hernia repair (~1999) H/O left nephrectomy S/P laparoscopic sleeve gastrectomy History of Problems with Anesthesia: No Social History Social History Household Members: Spouse and Family Housing: House Do you presently have visiting nurse or other home services: No Alcohol intake: never Patient Tobacco Use Status: Never used Tobacco e-Cigarette/Vaping Use: Never Used Second Hand Smoke Exposure: No Advance Directives: No Advance Directives Information Provided: Yes Advance Directives Date on File: 07/12/21 service: No Current occupational status: disabled Sexual orientation: Straight/Heterosexual Cognitive needs: No Hearing needs: No Vision needs: Yes Meds Allergies Allergy/AdvReac Type Severity Reaction Status Date / Time acetaminophen AdvReac Unknown Unknown Verified 03/05/24 11:44 atorvastatin AdvReac Severe elevated Uncoded 03/05/24 11:44 liver enzymes Active Medications: Current Medications Lactated Ringer's (Lr) 1,000 mls @ 100 mls/hr IVCONT .Q10H JYOTHI Last Admin: 03/06/24 06:49 Dose: 100 mls/hr Home Medications ?Medication ?Instructions ?Recorded ?Confirmed ?Last Taken ?Type potassium citrate 5 mEq (540 mg) 5 meq PO DAILY 06/13/23 02/06/24 01/21/24 History tablet,extended release Exam Height,Weight and Vital Signs: Height 5 ft 3 in Weight 78.925 kg Last Vital Signs Temp 96.9 F 03/06/24 06:23 Pulse 67 03/06/24 06:23 Resp 19 03/06/24 06:23 BP 128/71 03/06/24 06:23 Pulse Ox 98 03/06/24 06:23 O2 Del Method Room Air 03/06/24 06:23 Airway Mallampati Class: II TM Dist: >3cm Neck ROM: Full Heart: RRR Lungs: CTA Assessment and Plan Assessment Anesthesia Assessment: Anesthesia Plan Discussed and Chart Reviewed Final Anesthetic Review Family History of Problems with Anesthesia: No History of Problems with Anesthesia: No ASA Class: III Patient Risk: Intermediate Procedure Risk: Intermediate Anesthetic Plan Anesthetic Plan: GA Disposition: Standard PACU
--- NOTE | 2024-03-06 07:12 | MHC.SHP ---
Pre-Procedural Eval Section A - 24 Hr Update-Section A only Date of Service: 03/06/24 The patient is an INPATIENT: No Changes since office visit: No Cold of Flu in the past 2 weeks, No New Medical Problems, No Changes in Medication and No Patient answered all questions The patient has been examined within 24 hours of the surgical procedure. The History & Physical has been completed within 30 days and I have reviewed it.: Yes Section B - Complete if H&P > 30 days Chief Complaint: depression Allergies: Allergies Allergy/AdvReac Type Severity Reaction Status Date / Time acetaminophen AdvReac Unknown Unknown Verified 03/05/24 11:44 atorvastatin AdvReac Severe elevated Uncoded 03/05/24 11:44 liver enzymes Plan I have reviewed the history and physical and performed a pertinent physical examination on my patient. No changes have occurred unless specified. Time Spent With Patient Time: Total time managing care of this patient today ____ minutes.
--- NOTE | 2024-03-06 07:25 | HO.ECTPROC ---
ECT Procedure Note Diagnosis/Treatment Date of Service: 03/06/24 Diagnosis: Major Depressive Disorder Previous ECT Date: 02/26/24 Current Treatment Number: 7 Treatment: Series Interval Clinical Notes: the patient reported improvement of mood, now at home. Mild headache with the last ECT, no other side effects. ECT done as usual, no complications, woke up well. Time: Total time managing care of this patient today __30__ minutes. ECT Settings Device: THYMATRON DGx Electrode Placement: Right Unilateral Program/Pulse Width: 0.50 Energy Percent: 80 Medications Administration General Anesthetic: Etomidate (10) Muscle Relaxant: Succinylcholine (80) Airway Management Airway Management: Bag Mask Ventilation Treatment Recommendations No Changes Recommended: No change Pt Tolerated Procedure w/o Issue: Yes
== END 2024-03-06 08:47 | disposition home or self-care (01) ==
PROVIDERS: PCP Internal Medicine; Visit Provider Psychiatry & Neurology Psychiatry
PROC: (CPT 90870; principal; 2024-03-06 07:00)
DX: F33.2 Major depressive disorder, recurrent severe without psychotic features (principal); F43.10 Post-traumatic stress disorder, unspecified; N18.30 Chronic kidney disease, stage 3 unspecified; Z90.5 Acquired absence of kidney; J45.909 Unspecified asthma, uncomplicated; M51.362 Other intervertebral disc degeneration, lumbar region with discogenic back pain and lower extremity pain; I95.1 Orthostatic hypotension; E78.00 Pure hypercholesterolemia, unspecified; E55.9 Vitamin D deficiency, unspecified; E04.2 Nontoxic multinodular goiter; D50.9 Iron deficiency anemia, unspecified; R79.89 Other specified abnormal findings of blood chemistry; F51.01 Primary insomnia; G43.909 Migraine, unspecified, not intractable, without status migrainosus; E66.9 Obesity, unspecified; Z68.29 Body mass index [BMI] 29.0-29.9, adult; G62.9 Polyneuropathy, unspecified; Z79.01 Long term (current) use of anticoagulants; Z79.899 Other long term (current) drug therapy; Z99.89 Dependence on other enabling machines and devices; Z88.8 Allergy status to other drugs, medicaments and biological substances; Z98.84 Bariatric surgery status; Z98.890 Other specified postprocedural states
CPT/HCPCS: 90870; 96127; 99212; J0330

== ENCOUNTER → 2024-03-06 05:45 | Outpatient (BNV) | payer OTHER, SELFPAY | PROVIDERS: PCP Internal Medicine; Visit Provider Psychiatry & Neurology Psychiatry | DX: F33.2 Major depressive disorder, recurrent severe without psychotic features (principal) | CPT/HCPCS: 90870 ==

== ENCOUNTER 2024-03-06 13:37 | Outpatient (AMB) | payer OTHER, SELFPAY ==
[2024-03-06 13:49] VITALS: BP 98/60; PULSE 94; O2SAT 98; BMI 29.6
--- NOTE | 2024-03-06 13:49 | A.OFFPC_ITS ---
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 Track Required: No Accompanied by: Self / Same As Patient Allergies acetaminophen Adverse Reaction (Unknown, Verified 03/06/24 14:18) Unknown atorvastatin Adverse Reaction (Severe, Uncoded 03/06/24 14:18) elevated liver enzymes Medication List - Last Reconciled 03/06/24 by Hung Montelongo MD albuterol sulfate 90 mcg/actuation (Ventolin HFA) 2 puffs inhalation Q6H PRN 30 days apixaban (Eliquis) 5 mg PO BID 30 days bisacodyl (Dulcolax (bisacodyl)) 10 mg (2 x 5 mg) PO BEDTIME blood pressure monitor As directed aqfovinpqo-jikpgrqtvtjdn-nlcz 50-325-40 mg 2 tabs PO Q6H PRN 30 days cariprazine (Vraylar) 4.5 mg (3 x 1.5 mg) PO DAILY 30 days cholecalciferol (vitamin D3) (Vitamin D3) 25 mcg PO DAILY 90 days [CPAP device and all related supplies As directed] cyanocobalamin (vitamin B-12) 500 mcg PO DAILY 30 days diphenhydramine HCl (Banophen) 25 mg PO TID PRN 30 days docusate sodium 100 mg PO DAILY ferrous sulfate 325 mg PO DAILY 90 days gabapentin 800 mg PO TID 30 days hydroxyzine HCl 25 mg PO Q6H PRN 30 days lorazepam 1 mg PO BID PRN 30 days meclizine 25 mg PO TID PRN 30 days melatonin 10 mg (2 x 5 mg) PO BEDTIME PRN 30 days midodrine 10 mg PO TID 30 days mirtazapine 15 mg PO BEDTIME 30 days mometasone 0.1% 1 appl topical DAILY PRN pantoprazole 40 mg PO DAILY@30 30 days potassium citrate ER 5 mEq PO DAILY risperidone 2 mg PO BID 30 days rosuvastatin 5 mg PO DAILY 30 days topiramate 100 mg PO DAILY 30 days tramadol 100 mg (2 x 50 mg) PO Q8H PRN 30 days trazodone 50 mg PO BEDTIME PRN 30 days Tobacco use date assessed: 03/06/24 Dental Screening Dental Screen Date: 03/06/24 Did you have a dental visit in the last 12 months?: Yes Did you have a dental problem in the last 6 months where you did not have access to dental care?: No Was dental information given to patient?: Patient has dentist HPI 3mth f/u HPI Details Patient comes in today for her follow up visit She is again complaining of increased pain over her lower back and is requesting to be started back on opioids for her chronic pain as she states none of the medications that she is currently on has helped Have reminded her AGAIN that she was discharged from pain management here at the practice back in 2013 for 2 negative UDS in a row at the time and that once a patient has been discharged for violating the pain management agreement, there is no reset on the consequences Have reminded her that is the reason why I have also referred her to pain management, to which she initially states that she has not been seen yet I then reminded her that she was last seen by Dr. Smith in October 2023 and at the time, it looks like he was planning to schedule her for a bilateral therapeutic sacroiliac joint injection under sedation but it does not appear to have been scheduled yet at this time States that she was also advised by her psychiatrist recently to ask for a referral to endocrinology from her PCP for some thyroid nodules that were seen incidentally when she had her neck CT/CTA done a few weeks ago She still has on and off headaches and occasionally experiences transient dizziness when she gets up or moves around too quickly She denies any chest pains, no increased SOB Still (+) on and off nausea but no vomiting, no abdominal pain and no change in bowel habits noted She had her follow up labs done a few days ago - to discuss her result [facility] Medical History Chronic kidney disease, stage III (moderate) Obesity (BMI 30-39.9) Renal cyst Diverticulosis Tubular adenoma Asthma Spondylosis of lumbar spine Sacroiliitis Dizziness of unknown etiology Chronic constipation Hx of schizophrenia Panic attacks PTSD (post-traumatic stress disorder) Dyspareunia Pyelonephritis Ingrown toenail Iron deficiency anemia Major depression, recurrent Anxiety Insomnia Tremor Orthostatic hypotension Incisional hernia without obstruction or gangrene Avascular necrosis of femoral head Bilateral carpal tunnel syndrome Peroneal neuropathy Lumbar degenerative disc disease Vitamin D deficiency GERD (gastroesophageal reflux disease) Migraine Hyperlipidemia Surgical History History of left nephrectomy (~1999) History of colonoscopy History of surgery Hx of cystoscopy History of bilateral breast reduction surgery History of hysterectomy History of cholecystectomy History of endoscopy (~06/2016) History of bladder repair surgery (~03/2015) S/P cystoscopy (~07/30/12) S/P panniculectomy History of hernia repair (~03/29/10) History of bladder surgery (~10/2009) History of gastric bypass (~2008) History of incisional hernia repair (~1999) Hx of umbilical hernia repair (~1999) H/O left nephrectomy S/P laparoscopic sleeve gastrectomy Family History Father Liver cancer Mother Breast cancer Sister Lung cancer Other Mental health problem Social History Household Members: Spouse and Family Housing: House Do you presently have visiting nurse or other home services: No Alcohol intake: never Patient Tobacco Use Status: Never used Tobacco e-Cigarette/Vaping Use: Never Used Second Hand Smoke Exposure: No Advance Directives Date on File: 07/12/21 service: No Current occupational status: disabled Sexual orientation: Straight/Heterosexual Cognitive needs: No Hearing needs: No Vision needs: Yes Female Reproductive History Menstrual Age of Menarche: 13 Questionnaire PHQ-9 Over the last 2 weeks, how often have you been bothered by any of the following problems? 1. Little interest or pleasure in doing things: not at all 2. Feeling down, depressed, or hopeless: not at all 3. Trouble falling or staying asleep, or sleeping too much: not at all 4. Feeling tired or having little energy: not at all 5. Poor appetite or overeating: not at all 6. Feeling bad about yourself - or that you are a failure or have let yourself or your family down: not at all 7. Trouble concentrating on things, such as reading the newspaper or watching television: not at all 8. Moving or speaking so slowly that other people could have noticed. Or the opposite - being so fidgety or restless that you have been moving around a lot more than usual: not at all 9. Thoughts that you would be better off or of hurting yourself in some way: not at all Total score: 0 Depression Screening Interpretation: Positive Depression Screening Follow-up: Existing condition and In treatment Depression Screening Done: Yes 74887 - PHQ-9 Billing: Yes Source: Developed by Drs. Vincenzo Mayo, Beverly Hernandez, Angel Vogel and colleagues, with an educational juan antonio from [employer]. Thrive Questionnaire Date Thrive assessed: 03/06/24 I am a: Patient What is your living situation today?: I have a steady place to live Within the past 12 months, did the food you bought not last and you didn't have the money to get more?: Never true Within the past 12 months, did you worry whether your food would run out before you got money to buy more?: Never true Do you have trouble paying for medicines?: No Do you have trouble getting transportation to medical appointments?: No Do you have trouble paying your heating and electricity bill?: No Do you have trouble taking care of your child, family member or friend?: No Do you have trouble with day-to-day activities such as bathing, preparing meals, shopping, managing finances, etc.?: No Are you currently unemployed and looking for a job?: No Are you interested in more education?: No Please select the resources that you would like help with: None Currently or been in a relationship where the following occur: No concerns reported THRIVE Score: 0 AUDIT C Alcohol Use Questionnaire (AUDIT-C) 1. How often do you have a drink containing alcohol?: Never 3. How often do you have six or more drinks on one occasion?: Never Total Score: 0 Score Reviewed/Action Taken: Yes JAMIE-7 AMB Questionnaire JAMIE-7 Date JMAIE - 7 assessed: 03/06/24 Feeling nervous, anxious, or on edge: 0 = Not at all Not being able to stop or control worryin = Not at all Worrying too much about different things: 0 = Not at all Trouble relaxin = Not at all Being so restless that it is hard to sit still: 0 = Not at all Becoming easily annoyed or irritable: 0 = Not at all Feeling afraid as if something awful might happen: 0 = Not at all Total JAMIE-7 score (0-4 normal; 5-9 mild; 10-14 moderate; 15-21 severe): 0 Source: Developed by Drs. Vincenzo Mayo, Beverly Hernandez, Angel Vogel and colleagues, with an educational juan antonio from [employer]. Review of Systems Const Denies chills, Reports fatigue, Denies fever(s) and Reports headache(s) (on and off) ENT Denies dysphagia, Reports dizziness (on and off, mostly when she moves or gets up too quickly), Denies otalgia, Reports headache(s) (on and off), Denies neck pain, Denies odynophagia and Denies sore throat Card Denies chest pain, Denies irregular heart rhythm, Denies palpitations and Denies dyspnea Resp Denies chest congestion, Denies cough and Denies dyspnea GI Denies abdominal pain, Denies constipation, Denies dysphagia, Denies heartburn, Denies diarrhea, Reports nausea (on and off), Denies odynophagia and Denies vomiting Denies hematuria, Denies urinary frequency, Denies dysuria and Denies urinary urgency Musc Reports back pain (over the lower back - chronic; increasing (per patient)), Denies arthralgias and Denies neck pain Skin/Breast Denies rash Neuro Reports dizziness (on and off, mostly when she moves or gets up too quickly), Reports headache(s) (on and off) and Denies paresthesias Psych Reports anxiety and Reports depression Endo Reports fatigue and Denies palpitations Catarino/Lymph Denies easy bruising Physical exam (Primary Care) Vital Signs: Last Vital Signs Pulse 94 03/06/24 13:49 BP 98/60 03/06/24 13:49 Pulse Ox 98 03/06/24 13:49 Oxygen Delivery Method Room Air 03/06/24 13:49 BMI result Body Mass Index 29.6 Tobacco/Smoking Status: Tobacco use Status Tobacco use date assessed 03/06/24 03/06/24 13:51 Patient Tobacco Use Status Never used Tobacco 03/06/24 13:51 e-Cigarette/Vaping Use Never Used 03/06/24 13:51 PHQ-9: PHQ-9 Score PHQ-9: Total score 0 03/06/24 14:28 Depression Screening Interpretation: Positive Depression Screening Follow-up: Existing condition and In treatment Thrive Assessment: Date of Thrive Assessment Date Thrive assessed 03/06/24 03/06/24 13:51 Currently or been in a relationship where the following occur: No concerns reported Const General: no acute distress and alert HENMT Ears: TM's normal bilaterally and EAC's normal Throat: Yes posterior oropharynx normal and Yes tonsils normal Neck Neck: Yes no lymphadenopathy and Yes supple Thyroid: Thyroid normal Resp Auscultation: clear to auscultation bilaterally, no rales and no wheezes Cardio Rate: regular rate Rhythm: regular rhythm Heart sounds: no murmurs GI Palpation (GI): Soft to palpation and nontender Auscultation: normal bowel sounds General: Yes no CVA tenderness Back/Spine/Pelvis Back: no CVA tenderness Thoracic/Lumbar Spine: paraspinal muscle tenderness (over the lumbar region) on the right greater than left and lumbar spinal tenderness Skin Rashes: no rashes Extrem General: Yes no clubbing, cyanosis or edema Office Procedures Flu Questionnaire Does the patient have a severe egg allergy?: No Immunizations Fluarix Triv 4525-2800 (PF) 45 mcg (15 mcg x 3)/0.5 mL IM syringe Performing Provider: Hung Montelongo MD [facility] [place] [facility] Documented (not given) by: ADONIS Walker on 03/06/24 14:28 Reason Not Given: Patient Refused Results Reviewed Results Reviewed: Laboratory Tests 02/20/24 02/25/24 03/01/24 16:33 16:29 11:40 Sodium Potassium Creatinine Estimated GFR Calcium AST 83 H ALT 136 H Alkaline Phosphatase 135 H TSH 1.03 Ur Specific [place] 1.020 Urine Protein Negative Urine Glucose (UA) Negative Urine Blood Trace H Urine Nitrite Positive H Ur Leukocyte Esterase Small (1+) H Microalb/Creat Ratio 10.9 03/01/24 11:41 Sodium 142 Potassium 4.5 Creatinine 0.99 Estimated GFR 58 Calcium 8.8 AST ALT Alkaline Phosphatase TSH Ur Specific [place] Urine Protein Urine Glucose (UA) Urine Blood Urine Nitrite Ur Leukocyte Esterase Microalb/Creat Ratio Coding Level of Care Code Est Pt Level 4 (04003) Complex EM visit Add On G2211 Diagnoses Pure hypercholesterolemia E78.00 Hyperlipidemia type: pure hypercholesterolemia Elevated LFTs R79.89 MIGUEL (obstructive sleep apnea) G47.33 Solitary kidney, acquired Z90.5 Multiple thyroid nodules E04.2 Chronic constipation K59.09 Orthostatic hypotension I95.1 Gastroesophageal reflux disease without esophagitis K21.9 Esophagitis presence: without esophagitis Degeneration of intervertebral disc of lumbar region with discogenic back pain and lower extremity pain M51.362 Disc-related pain type: discogenic back pain and lower extremity pain Pain in other joint M25.59 Joint pain location: other joint Migraine without status migrainosus, not intractable, unspecified migraine type G43.909 Migraine type: unspecified Status migrainosus presence: without status migrainosus Intractability: not intractable Vitamin D deficiency E55.9 Memory impairment R41.3 Primary insomnia F51.01 Insomnia type: primary Anxiety F41.9 Episode of recurrent major depressive disorder, unspecified depression episode severity F33.9 Active/Remission status: currently active Major depression episode severity: unspecified Overweight (BMI 25.0-29.9) E66.3 Additional Codes PHQ-9 - 12018 - PHQ-9 Billing: Yes ([id number]) Assessment & Plan Assessment & Plan (1) Hyperlipidemia: Code(s): E78.5 - Hyperlipidemia, unspecified Category: Medical Qualifiers: Hyperlipidemia type: pure hypercholesterolemia Qualified Code(s): E78.00 - Pure hypercholesterolemia, unspecified Plan: Results of her labs done a few days ago reviewed and discussed with patient Reinforced low cholesterol diet She has been tolerating Rosuvastatin 5 mg QD for while now BUT her LFTs appear to have increased significantly over the past few months and we now have to advise her to HOLD her Rosuvastatin at this time and recheck her LFTs as well as her fasting lipids in 1 month for follow up (her LFTs also went up significantly while she was on Atorvastatin in the past) and if her cholesterol levels increased significantly while she is off her statins, may need to consider starting her on one of the newer PCSK9 inhibitors for her high cholesterol Will recheck her fasting lipids and labs again in 3 months for follow up (2) Elevated LFTs: Code(s): R79.89 - Other specified abnormal findings of blood chemistry Category: Medical Plan: Have advised patient that her LFTs have increased significantly from previous on her recent labs She had an abdominal US done last week, which revealed (+) coarsened hepatic echotexture, consistent with fatty infiltration or hepatocellular disease. No focal hepatic mass or intrahepatic biliary dilatation is seen We will have her HOLD her Rosuvastatin starting today and have her recheck her LFTs in 1 month for follow up As she is already scheduled to be seen by GI in a couple of weeks, have advised patient to keep her appointment with GI and that I will tag the provider who is scheduled to see her about her recent results as well (3) MIGUEL (obstructive sleep apnea): Comment: mild degree of sleep apnea. The AHI was 5/hr and oxygen mitul was 81%. Code(s): G47.33 - Obstructive sleep apnea (adult) (pediatric) Category: Medical Plan: Continue using her CPAP device when sleeping at night daily Follow up with Sleep Medicine as scheduled (4) Solitary kidney, acquired: Comment: (+) Hx of left nephrectomy >20 years ago due to recurrent kidney stones Code(s): Z90.5 - Acquired absence of kidney Category: Medical Plan: Follow up with nephrology as scheduled (5) Multiple thyroid nodules: Code(s): E04.2 - Nontoxic multinodular goiter Category: Medical Plan: These were apparently seen incidentally on neck CTA done last month Her TFTs remain normal on her recent labs Patient states that she was advised by her psychiatrist recently to speak to her PCP about getting a referral to endocrinology to have her thyroid nodules checked out further - referral done (6) Chronic constipation: Code(s): K59.09 - Other constipation Category: Medical Plan: She is again encouraged on increased oral fluids and dietary fiber States that Lactulose and Docusate 100 mg BID have not helped much previously; she also tried taking OTC Miralax, which she states only helped minimally She was tried by GI on Linzess and Trulance also recently and she states that both Rx did not help She is currently on a combination regimen of Linzess 145 mcg QD, Docusate 100 mg BID and Miralax 17 gm QD Had EGD and colonoscopy done a couple of years ago - (+) tubular adenoma; colonoscopy was otherwise normal Follow up with GI as scheduled (7) Orthostatic hypotension: Code(s): I95.1 - Orthostatic hypotension Category: Medical Plan: 30 days cardiac event monitor done on 07/11/2023 showed sinus rhythm with heart rate ranging from 36 to 131/min, 2 brief paroxysmal SVT episodes, rare PACs and PVCs; two symptom events correlated with sinus tach. Echocardiogram done on the same day (07/11/2023) came out normal Tilt-table testing done on 10/17/2023 showed appropriate heart rate and blood pressure response to tilt Continue Midodrine 10 mg TID She is reminded to stay adequately hydrated as much as she can and to try increasing her oral salt intake as well Follow up with cardiology as scheduled (8) GERD (gastroesophageal reflux disease): Code(s): K21.9 - Gastro-esophageal reflux disease without esophagitis Category: Medical Qualifiers: Esophagitis presence: without esophagitis Qualified Code(s): K21.9 - Gastro-esophageal reflux disease without esophagitis Plan: Dietary restrictions reinforced Continue Omeprazole 20 mg QD (9) Lumbar degenerative disc disease: Code(s): M51.36 - Other intervertebral disc degeneration, lumbar region Category: Medical Qualifiers: Disc-related pain type: discogenic back pain and lower extremity pain Qualified Code(s): M51.362 - Other intervertebral disc degeneration, lumbar region with discogenic back pain and lower extremity pain Plan: Reinforced activity and weight lifting restrictions She went to physical therapy last year without any significant relief She was seen by [facility] [place] [facility] Pain Management previously and had a diagnostic SI joint injection under fluoroscopic guidance back in September 2021 and started seeing them again recently; has been scheduled for bilateral therapeutic sacroiliac joint injection under sedation but it looks like she stopped going to pain management afterwards She was referred back to [facility] [place] Pain management for interventional Tx to help with her chronic pain at her last visit and she was seen again by Dr. Smith in late October 2023 and he was reportedly planning to schedule her for a bilateral therapeutic sacroiliac joint injection under sedation but it does not appear to have been scheduled yet at this time She is advised to try reaching out to Dr. Smith's office to inquire as to when her procedure will be scheduled Continue Gabapentin 800 mg 3 times a day, Tramadol 50 mg 1-2 tablets every 8 hours as needed Have reminded patient that we are not going to be prescribing her any opioids for her chronic pain as she was discharged from pain management here at the [facility] back in 2013 for 2 negative UDS in a row at the time and that once a patient has been discharged for violating our pain management agreement, there is no reset on the consequences (10) Arthralgia: Code(s): M25.50 - Pain in unspecified joint Category: Medical Qualifiers: Joint pain location: other joint Qualified Code(s): M25.59 - Pain in other specified joint Plan: Involving multiple joints, especially over both hips, both elbows and both knees X-rays of the knees done back in August 2021 revealed (+) mild OA changes in both knees; hip and elbow x-rays came out normal Continue Gabapentin 800 mg TID and Tramadol 50 mg TID PRN for pain (11) Migraine: Code(s): G43.909 - Migraine, unspecified, not intractable, without status migrainosus Category: Medical Qualifiers: Migraine type: unspecified Status migrainosus presence: without status migrainosus Intractability: not intractable Qualified Code(s): G43.909 - Migraine, unspecified, not intractable, without status migrainosus Plan: Stable lately Continue Topiramate 50 mg QD for LANZA prophylaxis and Sumatriptan 50 mg PRN (12) Vitamin D deficiency: Code(s): E55.9 - Vitamin D deficiency, unspecified Category: Medical Plan: Continue Vitamin D3 1000 units QD (13) Memory impairment: Code(s): R41.3 - Other amnesia Category: Medical Plan: She was referred to and seen by neurology and was advised that her memory issues are multifactorial in etiology although she was diagnosed with frontotemporal lobe degeneration and dementia as well Follow up with neurology as scheduled (14) Insomnia: Code(s): G47.00 - Insomnia, unspecified Category: Medical Qualifiers: Insomnia type: primary Qualified Code(s): F51.01 - Primary insomnia Plan: Sleep hygiene reinforced She was taking Trazodone 50 mg daily at bedtime as needed and Prazosin 1 mg Q HS in the past but currently appears to be only taking Melatonin 5 mg Q HS She is also on Aripiprazole 5 mg Q HS (15) Anxiety: Code(s): F41.9 - Anxiety disorder, unspecified Category: Medical Plan: Continue Lorazepam 1 mg BID PRN and Diphenhydramine 50 mg Q HS (16) Major depression, recurrent: Code(s): F33.9 - Major depressive disorder, recurrent, unspecified Category: Medical Qualifiers: Active/Remission status: currently active Major depression episode severity: unspecified Qualified Code(s): F33.9 - Major depressive disorder, recurrent, unspecified Plan: Continue Lurasidone 20 mg QD, Mirtazapine 7.5 mg Q HS and Aripiprazole 5 mg Q HS She was admitted to [facility] [place] [facility] a few months ago for psychiatric decompensation and suicidal ideation Follow-up with Psychiatry as scheduled (17) Overweight (BMI 25.0-29.9): Code(s): E66.3 - Overweight Category: Medical Plan: Reinforced diet; exercise is unrealistic given patient's multiple medical and psychiatric morbidities Plan Follow up in 3 months Orders: Orders Comprehensive Happy. Panel Fast 1 Month E78.00 - Pure hypercholesterolemia, unspecified Comprehensive Happy. Panel Fast 3 Months E78.00 - Pure hypercholesterolemia, unspecified Lipid Panel 3 Months E78.00 - Pure hypercholesterolemia, unspecified TSH reflex Free T4 3 Months E78.00 - Pure hypercholesterolemia, unspecified UA CC w/rflx Micro + Cult 3 Months R30.0 - Dysuria Influenza 7428-8543 Immunization Today Z23 - Encounter for immunization Lipid Panel 1 Month E78.00 - Pure hypercholesterolemia, unspecified Complete Blood Count Auto Diff 3 Months D64.9 - Anemia, unspecified Referrals Endocrinology Referral E04.1 - Nontoxic single thyroid nodule Medications: On Hold rosuvastatin Hold Comment: Doctor's Order 5 mg PO DAILY 30 days 30 tabs 1RF
== END 2024-03-06 14:30 | disposition home or self-care (01) ==
LOC: HO.HMCH 13:38
PROVIDERS: PCP Internal Medicine; Visit Provider Internal Medicine
DX: E78.00 Pure hypercholesterolemia, unspecified (principal); F33.9 Major depressive disorder, recurrent, unspecified; R79.89 Other specified abnormal findings of blood chemistry; G47.33 Obstructive sleep apnea (adult) (pediatric); Z90.5 Acquired absence of kidney; E04.2 Nontoxic multinodular goiter; K59.09 Other constipation; I95.1 Orthostatic hypotension; K21.9 Gastro-esophageal reflux disease without esophagitis; M51.362 Other intervertebral disc degeneration, lumbar region with discogenic back pain and lower extremity pain; M25.59 Pain in other specified joint; G43.909 Migraine, unspecified, not intractable, without status migrainosus

== ENCOUNTER 2024-03-11 11:22 | Outpatient (AMB) | payer OTHER, SELFPAY ==
--- NOTE | 2024-03-11 11:32 | A.OFFVIS_ITS ---
Vital Signs 03/11/24 11:36 Height 5 ft 3 in Weight 165 lb 8 oz BMI 29.3 BP 143/74 H Blood Pressure Location Rt brachial Position Sitting Pulse 67 Pulse Source Pulse Oximeter Pulse Oximetry (%) 98 Oxygen Delivery Method Room Air Intake Visit Reasons: LOWER BACK PAIN Intake Note: Pain today 11/07 Condominium Association Manager Required: Yes Condominium Association Manager Language: Accessibility Lift Technician Name: Earlene Accompanied by: Self / Same As Patient Allergies acetaminophen Adverse Reaction (Unknown, Verified 03/11/24 11:36) Unknown atorvastatin Adverse Reaction (Severe, Uncoded 03/06/24 14:18) elevated liver enzymes HPI Comments Details: Xenia is back in my office again after few months of absence. She was scheduled in October 2023 to go for bilateral therapeutic sacroiliac joint injection. Unfortunately she was lost for the follow-up and Marbin came for the injection. She reports today that her memory is not very good and she does not recall why she was not able to go for the injection. We requested her to provide us the telephone number of her spouse. This way we will know more details about why she is not showing up for the injection. Meanwhile I will schedule her again for bilateral therapeutic sacroiliac joint injection as it was planned in October. Prior: She was under care of Joanna with sacroiliac joint problem and after that she was under my care, she received therapeutic sacroiliac joint injection on the right which gave her 50% pain improvement in 2021. After that she received diagnostic bilateral sacroiliac joint injection and unfortunately she was lost for the follow-up. Due to mental health crisis she was admitted to psychiatric facility and was not able to receive any injections. Now she is back requesting me to perform therapeutic sacroiliac joint injection. [facility] Medical History Chronic kidney disease, stage III (moderate) Obesity (BMI 30-39.9) Renal cyst Diverticulosis Tubular adenoma Asthma Spondylosis of lumbar spine Sacroiliitis Dizziness of unknown etiology Chronic constipation Hx of schizophrenia Panic attacks PTSD (post-traumatic stress disorder) Dyspareunia Pyelonephritis Ingrown toenail Iron deficiency anemia Major depression, recurrent Anxiety Insomnia Tremor Orthostatic hypotension Incisional hernia without obstruction or gangrene Avascular necrosis of femoral head Bilateral carpal tunnel syndrome Peroneal neuropathy Lumbar degenerative disc disease Vitamin D deficiency GERD (gastroesophageal reflux disease) Migraine Hyperlipidemia Surgical History History of left nephrectomy (~1999) History of colonoscopy History of surgery Hx of cystoscopy History of bilateral breast reduction surgery History of hysterectomy History of cholecystectomy History of endoscopy (~06/2016) History of bladder repair surgery (~03/2015) S/P cystoscopy (~07/30/12) S/P panniculectomy History of hernia repair (~03/29/10) History of bladder surgery (~10/2009) History of gastric bypass (~2008) History of incisional hernia repair (~1999) Hx of umbilical hernia repair (~1999) H/O left nephrectomy S/P laparoscopic sleeve gastrectomy Family History Father Liver cancer Mother Breast cancer Sister Lung cancer Other Mental health problem Social History Household Members: Spouse and Family Housing: House Do you presently have visiting nurse or other home services: No Alcohol intake: never Patient Tobacco Use Status: Never used Tobacco e-Cigarette/Vaping Use: Never Used Second Hand Smoke Exposure: No Advance Directives Date on File: 07/12/21 service: No Current occupational status: disabled Sexual orientation: Straight/Heterosexual Cognitive needs: No Hearing needs: No Vision needs: Yes Female Reproductive History Menstrual Age of Menarche: 13 Review of Systems Const All systems reviewed & are unremarkable except as noted in HPI and below Physical Exam Vital Signs: Last Vital Signs Pulse 67 03/11/24 11:36 BP 143/74 H 03/11/24 11:36 Pulse Ox 98 03/11/24 11:36 Oxygen Delivery Method Room Air 03/11/24 11:36 BMI result Body Mass Index 29.3 Const General: comfortable, no acute distress, well developed, alert and awake Eyes Pupils: Equal, round and reactive pupils present EOM: EOMs intact bilaterally Chest Chest palpation & inspection: normal inspection of the chest Resp Effort & Inspection: normal respiratory effort, able to speak in complete sentences, normal respiratory pattern, no audible wheezes and no cough Cardio Jugular venous distension: no JVD Back/Spine/Pelvis Other: ? SACROILIAC JOINT?tenderness to palpation right SIJ, + glenny, Delphine finger,Gaenslen's,Compression/distraction positive on right.? INSPECTION:?normal curvature of spine.? RANGE OF MOTION?decreased side bending on right.? PALPATION:?no vertebral spine tenderness,sacroiliac joint tenderness on right.? STRAIGHT LEG RAISING TEST:?positive at 45 degrees on right in L4/5 distribution.? MOTOR SYSTEM:?5/5 bilateral lower extremities.? SENSORY EXAM:?normal to light touch and pinprick in C5-T1 and L2-S1,no dysethesias, reported paresthesias right L4/5 distribution.? REFLEXES:?symmetrical 2+.? GAIT:?favoring affected side.? Neuro Cranial nerves: Yes Equal, round and reactive pupils present Assessment & Plan Assessment & Plan (1) Sacroiliitis: Code(s): M46.1 - Sacroiliitis, not elsewhere classified Category: Medical (2) Spondylosis of lumbar spine: Code(s): M47.816 - Spondylosis without myelopathy or radiculopathy, lumbar region Category: Medical (3) Sacroiliac joint dysfunction of both sides: Code(s): M53.3 - Sacrococcygeal disorders, not elsewhere classified Category: Medical Plan The plan of care as above. I will schedule again this patient for bilateral therapeutic sacroiliac joint injection under sedation. Next appointment is after the procedure for the follow-up. Patient Instructions: information lead Earlene Kebede who is certified sign language interpreter helped us to maintain this conversation is [place]. Coding Level of Care Code Est Pt Level 3 (55719) Diagnoses Sacroiliitis M46.1 Spondylosis of lumbar spine M47.816 Sacroiliac joint dysfunction of both sides M53.3
[2024-03-11 11:36] VITALS: BP 143/74; PULSE 67; O2SAT 98; BMI 29.3
== END 2024-03-11 11:40 | disposition home or self-care (01) ==
PROVIDERS: PCP Internal Medicine; Visit Provider Anesthesiology
DX: M46.1 Sacroiliitis, not elsewhere classified (principal); M47.816 Spondylosis without myelopathy or radiculopathy, lumbar region; M53.3 Sacrococcygeal disorders, not elsewhere classified
CPT/HCPCS: 99213

== ENCOUNTER → 2024-03-11 11:22 | Outpatient (BNVA) | payer OTHER, SELFPAY | PROVIDERS: PCP Internal Medicine; Visit Provider Anesthesiology | DX: M46.1 Sacroiliitis, not elsewhere classified (principal); M53.3 Sacrococcygeal disorders, not elsewhere classified; M47.816 Spondylosis without myelopathy or radiculopathy, lumbar region | CPT/HCPCS: 99212 ==

== ENCOUNTER 2024-03-18 11:32 | Outpatient (REF) | payer OTHER, SELFPAY ==
[2024-03-18 12:51] LABS: MANUAL DIFF FLAG NO
[2024-03-18 13:01] LABS: Basophils Percent Auto 0.8 % (0-2); Eosinophils Percent Auto 0.6 % (0-4); Hematocrit 40.8 % (37.0-47.0); Hemoglobin 13.2 g/dl (12.0-16.0); Imm Gran Abs Auto 0.01 X10*3/uL (0.00-0.03); Imm Gran Pct Auto 0.2 % (0.0-0.4); Lymphocytes Absolute Auto 1.4 X10*3/uL (1.2-4.9); Lymphocytes Percent Auto 27.6 % (20-40); Mean Corpuscular HGB Conc 32.4 g/dl (31.0-35.0); Mean Corpuscular Hemoglobin 33.7 pg (27.0-33.0); Mean Corpuscular Volume 104.1 fL (80.0-98.0); Mean Platelet Volume 9.1 fL (9.4-12.3); Monocytes Absolute Auto 0.4 X10*3/uL (0.1-1.2); Monocytes Percent Auto 8.6 % (2-11); Neutrophils Percent Auto 62.2 % (45-73); Platelet Count 248 X10*3/uL (160-400); Red Blood Count 3.92 X10*6/uL (4.20-5.50); Red Cell Distribution Width 12.3 % (11.0-16.0); White Blood Count 4.9 X10*3/uL (4.8-10.8)
[2024-03-18 13:06] LABS: INTERNATIONAL NORM RATIO 1.2 (0.9-1.1); Prothrombin Time 13.4 SEC (10.9-12.4)
[2024-03-18 13:23] LABS: Appearance Urine Cloudy; Color Urine Yellow; Glucose Urine UA Negative (Negative); Leukocyte Esterase Urine Moderate (2+) (Negative); Nitrite Urine Positive (Negative); PH 6.5 (5.0-9.0); UMIC TRIGGER UACC YES; Urine Blood Trace (Negative); Urine Ketones Negative (Negative); Urine Protein Negative (Neg-Trace)
[2024-03-18 13:33] LABS: Bacteria Urine 4+ (None Seen); Hyaline Casts Urine 0-2 /LPF (0-2); Squamous Epithelial Cell Urine 0-2 /HPF (0-2); UACC Culture Trigger YES
[2024-03-18 13:53] LABS: Gamma Glutamyl Transpeptidase 69 U/L (7-33)
[2024-03-18 14:00] LABS: Ferritin 322 ng/mL (10-250)
[2024-03-18 14:18] LABS: Alanine Aminotransferase 22 U/L (0-31); Albumin Level 3.8 g/dL (3.5-5.0); Alkaline Phosphatase 129 U/L (39-117); Anion Gap 9 (12-20); Aspartate Amino Transferase 20 U/L (5-31); Bilirubin Direct 0.1 mg/dL (0.0-0.5); Bilirubin Total 0.3 mg/dL (0.0-1.0); Blood Urea Nitrogen 12 mg/dL (9-16); Calcium 8.9 mg/dL (8.4-10.2); Carbon Dioxide 31 mmol/L (22-29); Chloride 108 mmol/L (96-108); Cholesterol 243 mg/dL (<200); Estimated Glomerular Filt Rate 56; Glucose Fasting 89 mg/dL (60-99); HDL Cholesterol 72 mg/dL (>40); LDL Cholesterol Calculated 155 mg/dL (<100); Potassium 3.8 mmol/L (3.3-5.1); Sodium 144 mmol/L (135-145); Total Protein 6.5 g/dL (6.5-8.0); Triglycerides 83 mg/dL (<150)
[2024-03-18 14:23] LABS: TSH reflex Free T4 0.95 uIU/mL (0.32-4.0); Vitamin D 25-OH Total 30.2 ng/mL (>30)
[2024-03-19 08:54] LABS: Ceruloplasmin 31 mg/dL (14-48)
[2024-03-19 12:54] LABS: Alpha Fetoprotein 3.2 ng/mL
[2024-03-21 12:23] LABS: Mitochondrial Antibodies NEGATIVE (NEGATIVE)
[2024-03-23 01:36] LABS: FIB-ALT 13 U/L (6-29); FIB-Alpha-2-Macroglobulin 206 mg/dL (106-279); FIB-Apolipoprotein A1 211 mg/dL (101-198); FIB-GGT 55 U/L (3-70); FIB-Haptoglobin 146 mg/dL (43-212); FIB-Total Bilirubin 0.3 mg/dL (0.2-1.2); Liver Fibrosis Score 0.09; Liver Fibrosis Stage F0; Nec Inflam Act Grade A0; Nec Inflam Act Score 0.03; Reference ID 5217078
[2024-03-24 14:13] LABS: Smooth Muscle Antibody <20 U (<20)
== END 2024-03-18 11:33 | disposition home or self-care (01) ==
LOC: HO.LAB 11:32
PROVIDERS: PCP Internal Medicine; Visit Provider Nurse Practitioner Family
DX: R79.89 Other specified abnormal findings of blood chemistry (principal); K58.9 Irritable bowel syndrome, unspecified; D64.9 Anemia, unspecified; E78.00 Pure hypercholesterolemia, unspecified; R74.8 Abnormal levels of other serum enzymes; K76.0 Fatty (change of) liver, not elsewhere classified; R74.01 Elevation of levels of liver transaminase levels; E55.9 Vitamin D deficiency, unspecified
CPT/HCPCS: 36415; 80053; 80061; 80076; 81001; 81596; 82105; 82248; 82306; 82390; 82728; 82977; 84443; 85025; 85610; 86015; 86140; 86381; 87086; 87088; 87186; 99212

== ENCOUNTER 2024-03-18 11:32 | Outpatient (AMB) | payer OTHER, SELFPAY ==
[2024-03-18 11:39] VITALS: BP 118/76; PULSE 76; O2SAT 98; BMI 29.7
--- NOTE | 2024-03-18 11:39 | MHC.OFFVIS ---
Vital Signs 03/18/24 11:39 Height 5 ft 3 in Weight 167 lb 8.821 oz BMI 29.7 BP 118/76 Blood Pressure Location Rt brachial Position Sitting Pulse 76 Pulse Source Pulse Oximeter Pulse Oximetry (%) 98 Oxygen Delivery Method Room Air Intake Visit Reasons: 3 month follow up Intake Note: Relevant Flags or Indicators ? Requires Powersaw Supervisor? Eduardo Michaels presents in office today for a scheduled FUV post admit to [facility] for UTI + Altered Mental Status; Dr. Bourgeois performed consultation. Pt had imaging and labs performed while admitted. Relevant GI Sx as reported per pt? None ? Hx of any recent surgeries? None Powersaw Supervisor Required: Yes Powersaw Supervisor Services: Powersaw Supervisor Present Powersaw Supervisor Name: [id number] Earlene Information Interpreted: non-clinical & clinical Accompanied by: Self / Same As Patient Allergies atorvastatin Adverse Reaction (Intermediate, Verified 03/19/24 08:23) other acetaminophen Adverse Reaction (Unknown, Verified 03/19/24 08:23) Unknown HPI HPI 3 month follow up: Details: LAST VISIT: Constipation Diverticulosis GERD (gastroesophageal reflux disease) Transaminitis Nausea Postprandial epigastric pain Umbilical hernia Plan Patient will stop taking omeprazole. Will start pantoprazole half an hour before breakfast. Avoid dietary triggers and late night snacking. Staying upright for minimum 3 hours after meals discussed with patient. Continue Linzess and Dulcolax. Increase fluid intake and activity to promote better bowel motility. Patient has small umbilical hernia referral to General surgery. Patient will call the office if she will have increase pain nausea or vomiting. Orders Referrals General Surgery Referral K42.9 Medications New pantoprazole take one tablet half an hour before breakfast 40 mg PO DAILY 90 tabs 2RF K21.9 Discontinued omeprazole Discontinued Reason: Doctor's Order 20 mg PO DAILY 90 caps 3RF K21.[address] BOURGEOIS DURING ADMISSION Assessment and Plan (1) Abnormal LFTs: Status: Acute Plan 1/ Waxing and waning LFt over the years, with macrocytosis with left sided weakness and non specific sx, could be SOD, vs other autoimmune, metabolic process. b12 was nml, TFT were low normal, imaging with nodular goiter. LFT could also be from DILI. PLAN: 1/ recheck serologies, CPK, TSH 2/ US liver, pending 3/ can try bentyl if no CI, can help with SOD and any abdominal component of her sx. 4/ if ongoing may need liver bx TODAY'S VISIT: Patient is here today for follow-up recent hospitalization. Patient had UTI and was admitted. Patient was also admitted to [facility] for psych evaluation due to delirium that was probably caused by UTI. Patient was found to have increase liver enzymes. Patient was consulted by Dr. Bourgeois. Patient had ultrasound that showed fatty liver, liver enzymes were elevated and trending down. Patient denies any abdominal pain or discomfort. Patient admits to be taking Tylenol not more than normal for just general discomfort. Patient is on multiple different medications that include psychiatric medications that day were reviewed and did not show that could cause liver toxicity. Patient was started on Vraylar and notice increase in her tremors though. Patient denies any GI concerning symptoms today. Our plan is to repeat liver enzymes, rule out autoimmune disorders, hemochromatosis, liver fibrosis panel. [facility] Medical History Chronic kidney disease, stage III (moderate) Obesity (BMI 30-39.9) Renal cyst Diverticulosis Tubular adenoma Asthma Spondylosis of lumbar spine Sacroiliitis Dizziness of unknown etiology Chronic constipation Hx of schizophrenia Panic attacks PTSD (post-traumatic stress disorder) Dyspareunia Pyelonephritis Ingrown toenail Iron deficiency anemia Major depression, recurrent Anxiety Insomnia Tremor Orthostatic hypotension Incisional hernia without obstruction or gangrene Avascular necrosis of femoral head Bilateral carpal tunnel syndrome Peroneal neuropathy Lumbar degenerative disc disease Vitamin D deficiency GERD (gastroesophageal reflux disease) Migraine Hyperlipidemia Surgical History History of left nephrectomy (~1999) History of colonoscopy History of surgery Hx of cystoscopy History of bilateral breast reduction surgery History of hysterectomy History of cholecystectomy History of endoscopy (~06/2016) History of bladder repair surgery (~03/2015) S/P cystoscopy (~07/30/12) S/P panniculectomy History of hernia repair (~03/29/10) History of bladder surgery (~10/2009) History of gastric bypass (~2008) History of incisional hernia repair (~1999) Hx of umbilical hernia repair (~1999) H/O left nephrectomy S/P laparoscopic sleeve gastrectomy Family History Father Liver cancer Mother Breast cancer Sister Lung cancer Other Mental health problem Social History Household Members: Spouse and Family Housing: House Do you presently have visiting nurse or other home services: No Alcohol intake: never Patient Tobacco Use Status: Never used Tobacco e-Cigarette/Vaping Use: Never Used Second Hand Smoke Exposure: No Advance Directives Date on File: 07/12/21 service: No Current occupational status: disabled Sexual orientation: Straight/Heterosexual Cognitive needs: No Hearing needs: No Vision needs: Yes Female Reproductive History Menstrual Age of Menarche: 13 Review of Systems Const Denies weight gain and Denies weight loss ENT Reports no additional complaints, Denies dysphagia and Denies odynophagia Card Reports no additional complaints Resp Reports no additional complaints GI Denies abdominal pain, Denies belching, Denies melena, Denies bloating, Denies change in bowel habits, Denies dysphagia, Denies excessive flatus, Denies dyspepsia, Denies heartburn, Denies diarrhea, Denies loose stools, Denies nausea, Denies odynophagia and Denies vomiting Musc Reports no additional complaints Neuro Reports no additional complaints Psych Reports no additional complaints Endo Reports no additional complaints Physical Exam Vital Signs: Last Vital Signs Pulse 76 03/18/24 11:39 BP 118/76 03/18/24 11:39 Pulse Ox 98 03/18/24 11:39 Oxygen Delivery Method Room Air 03/18/24 11:39 BMI result Body Mass Index 29.7 Const General: healthy appearing, no acute distress and well developed Nutritional Appearance: well nourished Orientation/consciousness: patient oriented x3 Resp Effort & Inspection: normal respiratory effort, able to speak in complete sentences, no tracheal deviation and symmetric chest movement Auscultation: clear to auscultation bilaterally Cardio Rate: regular rate (58 apical, checked with stethoscope) GI Inspection: Yes normal to inspection and No distended Palpation (GI): Soft to palpation, not firm, Tenderness to palpation present (GI) (Periumbilical area) and Hernia present umbilical Auscultation: normal bowel sounds General: Yes no CVA tenderness Back/Spine/Pelvis Back: no CVA tenderness Skin General skin exam: elasticity normal, turgor normal and dry skin Neuro General: patient oriented x3 Psych Appearance: grossly normal Mental Status: mental status grossly normal Results Reviewed Results Reviewed: ABDOMINAL ULTRASOUND 02/26/2024 IMPRESSION: 1. There is coarsened hepatic echotexture, consistent with fatty infiltration or hepatocellular disease. Please correlate clinically. No focal hepatic mass or intrahepatic biliary dilatation is seen. 2. The gallbladder is surgically absent. 3. Technically limited ultrasound examination of the pancreas. Laboratory Tests 02/04/24 02/05/24 02/06/24 16:25 05:35 05:33 AST 181 H 142 H 79 H ALT 525 H 467 H 324 H 02/20/24 02/25/24 16:33 16:29 AST 43 H 83 H ALT 61 H 136 H Assessment & Plan Assessment & Plan (1) Abnormal LFTs: Code(s): R79.89 - Other specified abnormal findings of blood chemistry Category: Medical (2) Constipation: Code(s): K59.00 - Constipation, unspecified Category: Medical Qualifiers: Constipation type: drug induced constipation Qualified Code(s): K59.03 - Drug induced constipation (3) Diverticulosis: Code(s): K57.90 - Diverticulosis of intestine, part unspecified, without perforation or abscess without bleeding Category: Medical (4) GERD (gastroesophageal reflux disease): Code(s): K21.9 - Gastro-esophageal reflux disease without esophagitis Category: Medical Qualifiers: Esophagitis presence: without esophagitis Qualified Code(s): K21.9 - Gastro-esophageal reflux disease without esophagitis (5) Nonalcoholic fatty liver: Code(s): K76.0 - Fatty (change of) liver, not elsewhere classified Plan Rule out autoimmune disorders, cancer, hemochromatosis, will order liver ultrasound with elastography as well as liver fibrosis panel. Patient will continue her PPI dose right now. Denies any GI concerning symptoms except for constipation will continue her regimen and will call us if she will have no results. Increase fiber and fluid intake as well as activity to promote better bowel motility. Patient will follow-up in our office in 3 months. If she continues to have elevated enzymes we might send her for liver biopsy. Discussed with patient low-fat, low-salt, low carb and high-protein diet. Patient is agreeable to current plan of care and verbalizes understanding of instructions. She was given the opportunity to ask questions and all questions answered. Thank you for allowing me to participate in her Orders: Orders Alpha Fetoprotein 03/18/24 R7.89 - Other specified abnormal findings of blood chemistry Ceruloplasmin 03/18/24 R7. - Other specified abnormal findings of blood chemistry Liver Fibrosis Pnl 03/18/24 K76.0 - Fatty (change of) liver, not elsewhere classified Mitochondrial Antibody 03/18/24 R7.89 - Other specified abnormal findings of blood chemistry Gamma Glutamyl Transpeptidase 03/18/24 R74.8 - Abnormal levels of other serum enzymes Prothrombin Time INR 03/18/24 R74.8 - Abnormal levels of other serum enzymes C Reactive Protein 03/18/24 K58.9 - Irritable bowel syndrome, unspecified Smooth Muscle Antibody 03/18/24 R79.89 - Other specified abnormal findings of blood chemistry Liver Panel 03/18/24 R74.01 - Elevation of levels of liver transaminase levels Ferritin 03/18/24 R74.8 - Abnormal levels of other serum enzymes US abdomen parham w elastography 03/18/24 K76.0 - Fatty (change of) liver, not elsewhere classified Coding Level of Care Code Est Pt Level 4 (06739) Diagnoses Abnormal LFTs R7. Drug-induced constipation K59.03 Constipation type: drug induced constipation Diverticulosis K57.90 Gastroesophageal reflux disease without esophagitis K21.9 Esophagitis presence: without esophagitis Nonalcoholic fatty liver K76.0 Time Spent (min) 45 Comment 30 minutes spent with patient and additional 15 minutes spent reviewing her records
== END 2024-03-18 12:44 | disposition home or self-care (01) ==
PROVIDERS: PCP Internal Medicine; Visit Provider Nurse Practitioner Family
DX: R79.89 Other specified abnormal findings of blood chemistry (principal); K59.03 Drug induced constipation; K57.90 Diverticulosis of intestine, part unspecified, without perforation or abscess without bleeding; K21.9 Gastro-esophageal reflux disease without esophagitis; K76.0 Fatty (change of) liver, not elsewhere classified
CPT/HCPCS: 99214

== ENCOUNTER 2024-03-19 07:46 | Outpatient (AMB) | payer OTHER, SELFPAY ==
--- NOTE | 2024-03-19 07:48 | A.OFFVIS_ITS ---
Intake Visit Reasons: US follow up(set) Intake Note: Patient presents today for follow up on: Recurrent [facility] Medications: none Antibiotic Allergy: None Blood Thinner: None PVR: 0ml's Mds Manager Required: Yes Accompanied by: Self / Same As Patient Allergies atorvastatin Adverse Reaction (Intermediate, Verified 03/19/24 08:23) other acetaminophen Adverse Reaction (Unknown, Verified 03/19/24 08:23) Unknown Medication List - Last Reconciled 03/19/24 by KAYODE Hughes albuterol sulfate 90 mcg/actuation (Ventolin HFA) 2 puffs inhalation Q6H PRN 30 days apixaban (Eliquis) 5 mg PO BID 30 days bisacodyl (Dulcolax (bisacodyl)) 10 mg (2 x 5 mg) PO BEDTIME blood pressure monitor As directed obcbslbmll-vlossypzvqxbg-svgz 50-325-40 mg 2 tabs PO Q6H PRN 30 days cariprazine (Vraylar) 4.5 mg (3 x 1.5 mg) PO DAILY 30 days cholecalciferol (vitamin D3) (Vitamin D3) 25 mcg PO DAILY 90 days [CPAP device and all related supplies As directed] cyanocobalamin (vitamin B-12) 500 mcg PO DAILY 30 days diphenhydramine HCl (Banophen) 25 mg PO TID PRN 30 days docusate sodium 100 mg PO DAILY ferrous sulfate 325 mg PO DAILY 90 days gabapentin 800 mg PO TID 30 days hydrocortisone 2.5% 1 appl MD BID-QID PRN hydroxyzine HCl 25 mg PO Q6H PRN 30 days lorazepam 1 mg PO BID PRN 30 days lurasidone 40 mg PO DAILY meclizine 25 mg PO TID PRN 30 days melatonin 10 mg (2 x 5 mg) PO BEDTIME PRN 30 days midodrine 10 mg PO TID 30 days mirtazapine 15 mg PO BEDTIME 30 days mometasone 0.1% 1 appl topical DAILY PRN naproxen mg PO pantoprazole 40 mg PO DAILY@0630 30 days potassium citrate ER 5 mEq PO DAILY risperidone 2 mg PO BID 30 days rosuvastatin 5 mg PO DAILY 30 days sumatriptan succinate mg PO topiramate 100 mg PO DAILY 30 days tramadol 100 mg (2 x 50 mg) PO Q8H PRN 30 days trazodone 50 mg PO BEDTIME PRN 30 days triamcinolone acetonide 0.1% 1 appl topical DAILY HPI Comments Details: Xenia is a very pleasant 53-year-old Lao-speaking female patient of Dr. Montelongo. She has a past medical history of obesity, renal cysts, divert iculosis, asthma, spondylosis of lumbar spine, dizziness of unknown etiology, chronic constipation, schizophrenia, stage 3 chronic kidney disease, panic attacks, PTSD, obstructive sleep apnea, major depression, anxiety, insomnia, tremors, vitamin-D deficiency, GERD, migraines, and hyperlipidemia. She presents to the office today for follow-up of her nephrolithiasis and recurrent urinary tract infections. In discussion with the patient today she reports having followed up with GI yesterday and a urine was obtained as patient reported dysuria, bladder pressure, and foul-smelling urine. Culture remains pending. We discuss treatment given patient with UTI like symptoms and recurrent urinary tract infections. In office urinalysis results reviewed with the patient today positive leukocytes. She has a longstanding history of recurrent urinary tract infections. 02/17, 04/19, 05/21, 10/20, 04/21, 05/23, 06/23, 08/21, 10/21, and 02/20, 01/22, 02/21:Positive for E coli 08/22: Positive for Klebsiella pneumoniae Microgen 01/22: E coli, Enterococcus faecalis, prevotella bivia, and gardnerella vaginalis. During last office visit approximately 2 months ago a retroperitoneal ultrasound was ordered for further assessment evaluation however these results remain pending. When asked she reports at times she does not utilize Estrace cream as prescribed however we discussed importance in doing so. We discussed methenamine and vitamin-C for suppression given recurrent urinary tract infections. However, she discusses her reluctancy taking medications as she feels she takes many medications. She reports a longstanding history of constipation with hemorrhoids and followed up with GI yesterday. She does report being on a bowel regimen however does continue with constipation. We discussed at length correlation of constipation and recurrent urinary tract infections as well as lower urinary tract symptoms. She otherwise denies incontinence, nocturia, hematuria, changes to urinary stream, flank pain, fever, and or chills. PVR 0 mL. Discussed in office cystoscopy for further assessment evaluation. She otherwise offers no other issues or concerns at this time. [facility] Medical History Chronic kidney disease, stage III (moderate) Obesity (BMI 30-39.9) Renal cyst Diverticulosis Tubular adenoma Asthma Spondylosis of lumbar spine Sacroiliitis Dizziness of unknown etiology Chronic constipation Hx of schizophrenia Panic attacks PTSD (post-traumatic stress disorder) Dyspareunia Pyelonephritis Ingrown toenail Iron deficiency anemia Major depression, recurrent Anxiety Insomnia Tremor Orthostatic hypotension Incisional hernia without obstruction or gangrene Avascular necrosis of femoral head Bilateral carpal tunnel syndrome Peroneal neuropathy Lumbar degenerative disc disease Vitamin D deficiency GERD (gastroesophageal reflux disease) Migraine Hyperlipidemia Surgical History History of left nephrectomy (~1999) History of colonoscopy History of surgery Hx of cystoscopy History of bilateral breast reduction surgery History of hysterectomy History of cholecystectomy History of endoscopy (~06/2016) History of bladder repair surgery (~03/2015) S/P cystoscopy (~07/30/12) S/P panniculectomy History of hernia repair (~03/29/10) History of bladder surgery (~10/2009) History of gastric bypass (~2008) History of incisional hernia repair (~1999) Hx of umbilical hernia repair (~1999) H/O left nephrectomy S/P laparoscopic sleeve gastrectomy Family History Father Liver cancer Mother Breast cancer Sister Lung cancer Other Mental health problem Social History Household Members: Spouse and Family Housing: House Do you presently have visiting nurse or other home services: No Alcohol intake: never Patient Tobacco Use Status: Never used Tobacco e-Cigarette/Vaping Use: Never Used Second Hand Smoke Exposure: No Advance Directives Date on File: 07/12/21 service: No Current occupational status: disabled Sexual orientation: Straight/Heterosexual Cognitive needs: No Hearing needs: No Vision needs: Yes Female Reproductive History Menstrual Age of Menarche: 13 Review of Systems Const Reports no additional complaints Eyes Reports no additional complaints ENT Reports no additional complaints Card Reports as per HPI Resp Reports as per HPI GI Reports as per HPI Reports as per HPI Musc Reports as per HPI Neuro Reports as per HPI Psych Reports as per HPI Physical Exam Const General: cooperative, healthy appearing, comfortable, no acute distress, well developed, alert and awake Orientation/consciousness: patient oriented x3 Limitations: no limitations HEENT Head: Yes normal to inspection, Yes normocephalic and Yes atraumatic Ears: hearing grossly normal bilaterally Eyes General: appearance normal, both eyes and all related structures Neck Neck: Yes normal visual inspection and Yes trachea midline Chest Chest palpation & inspection: normal inspection of the chest Resp Effort & Inspection: normal respiratory effort and able to speak in complete sentences Cardio Rate: regular rate GI Inspection: Yes normal to inspection General: Yes no CVA tenderness Back/Spine/Pelvis Back: no CVA tenderness Skin General skin exam: no rashes or lesions noted Neuro General: patient oriented x3 Extrem General: Yes normal to inspection Psych Appearance: grossly normal and well kempt Mental Status: mental status grossly normal Speech and movement: Normal speech and movement present and Clear speech present Affect: normal affect Attitude: cooperative Thought process: Normal thought process present Thought content: Normal thought content present Insight: Fair insight present (Psych) Judgement: Fair judgement present (Psych) Office Procedures Post Void Residual Post Residual Void Post Void Residual (PVR): 0 [id number]-[id number] Void Residual by ultrasound Results AMB Urinalysis, Automated UA Leukoctes 15 Asad/uL Last Edit by Jessica Juarez on 03/19/24 08:16 UA Nitrite Positive Last Edit by Jessica Juarez on 03/19/24 08:16 UA Urobilinogen 0.2 mg/dL Last Edit by Jessica Juarez on 03/19/24 08:16 UA Protein 0 mg/dL Last Edit by Jessica Juarez on 03/19/24 08:16 UA pH 6.5 Last Edit by Jessica Juarez on 03/19/24 08:16 UA Blood 80 [place]/uL Last Edit by Jessica Juarez on 03/19/24 08:16 UA Specific [place] 1.010 Last Edit by Jessica Johnsonleslie on 03/19/24 08:16 UA Ketone Negative Last Edit by Jessica Johnsonleslie on 03/19/24 08:16 UA Bilirubin 0 mg/dL Last Edit by Jessica Johnsonleslie on 03/19/24 08:16 UA Glucose 0 mg/dL Last Edit by Jessica Johnsonleslie on 03/19/24 08:16 Results Reviewed Results Reviewed: Laboratory Last Values Urine pH (Auto) 6.5 03/19/24 08:03 Specific [place] (Auto) 1.010 03/19/24 08:03 Urine Protein (Auto) 0 mg/dL 03/19/24 08:03 Glucose (UA)(Auto) 0 mg/dL 03/19/24 08:03 Urine Ketones (Auto) Negative 03/19/24 08:03 Urine Blood (Auto) 80 [place]/uL 03/19/24 08:03 Urine Nitrite (Auto) Positive 03/19/24 08:03 Urine Bilirubin (Auto) 0 mg/dL 03/19/24 08:03 Urine Urobilinogen (Auto) 0.2 mg/dL 03/19/24 08:03 Leukocyte Esterase (Auto) 15 Asad/uL 03/19/24 08:03 Assessment & Plan Assessment & Plan (1) Lower urinary tract symptoms: Code(s): R39.9 - Unspecified symptoms and signs involving the genitourinary system Category: Medical (2) Complicated urinary tract infection: Code(s): N39.0 - Urinary tract infection, site not specified Category: Medical (3) Recurrent urinary tract infection: Code(s): N39.0 - Urinary tract infection, site not specified Category: Medical (4) Renal cyst: Code(s): N28.1 - Cyst of kidney, acquired Category: Medical (5) Solitary kidney, acquired: Comment: (+) Hx of left nephrectomy >20 years ago due to recurrent kidney stones Code(s): Z90.5 - Acquired absence of kidney Category: Medical Plan In office urinalysis results reviewed with the patient today; as noted above; will send for urine cytology as well as urine culture pending from yesterday. Start Bactrim as discussed and prescribed. Discussed importance of taking medications as prescribed Restart Estrace cream as discussed and prescribed. We discussed further UTI prevention with methenamine and vitamin-C. Discussed UTI prevention with D mannose supplement, vitamin-C, increasing fluid intake, behavioral therapy with timed voiding, perineal hygiene and postcoital voiding, and management of constipation with stool softeners and increased fiber intake. Will schedule for in office cystoscopy for further assessment evaluation Follow-up per doctor's orders; or sooner with any issues, concerns, and or questions. Orders: Orders UA CC w/rflx Micro + Cult 04/05/24 N39.0 - Urinary tract infection, site not specified AMB Urinalysis Automated 03/19/24 Z13.9 - Encounter for screening, unspecified Urine Cytology 03/19/24 N39.0 - Urinary tract infection, site not specified, R30.0 - Dysuria AMB Post Void Residual by ultrasound 03/19/24 R39.9 - Unspecified symptoms and signs involving the genitourinary system Medications: New sulfamethoxazole-trimethoprim 800-160 mg (Bactrim DS) 1 tab PO BID 14 days 28 tabs 0RF N39.0 - Urinary tract infection, site not specified Changed From estradiol 0.01%(0.1mg/gram) vaginally 3 times a week; pea sized amount to urethra 3 times a week 30 days 42.5 grams 0RF To estradiol 0.01%(0.1mg/gram) vaginally 3 times a week; pea sized amount to urethra 3 times a week 90 days 42.5 grams 3RF Patient Instructions: The patient had an opportunity to ask questions regarding the treatment plan. All questions were answered. Physical exam, labs, and imaging were discussed and reviewed in detail. As well as risks, benefits, and discussion of treatment choices. No major barriers to understanding were identified. The patient expressed understanding and agreement with the above treatment plan. The patient was made aware they should contact our office by phone for worsening of their current condition, the appearance of new symptoms, or with any questions or concerns. Compliance is encouraged with any medications and follow up testing that is ordered. It is a privilege to be allowed the opportunity to participate in? your urological care.? Again, if you have any questions or concerns If you have any questions or concerns please do not hesitate to contact me. The office is [phone]. This note is constructed using voice recognition software. While every effort has been made to ensure accuracy expanding machine operator errors may have been included. Yours sincerely, GOOD Hughes- Coding Level of Care Code Est Pt Level 4 (83376) Complex EM visit Add On G2211 Diagnoses Lower urinary tract symptoms R39.9 Complicated urinary tract infection N39.0 Recurrent urinary tract infection N39.0 Renal cyst N28.1 Solitary kidney, acquired Z90.5 CPT Codes Post Residual Void - PVR CPT Code: 58604-Dcpz Void Residual by ultrasound ([id number])
== END 2024-03-19 08:29 | disposition home or self-care (01) ==
PROVIDERS: PCP Internal Medicine; Visit Provider Nurse Practitioner Family
DX: Z13.9 Encounter for screening, unspecified (principal)

== ENCOUNTER 2024-03-19 07:46 | Outpatient (REF) | payer OTHER, SELFPAY ==
[2024-03-19 17:49] LABS: Urine Cytology See Pathology rpt
== END 2024-03-19 07:47 | disposition home or self-care (01) ==
LOC: HO.LNP 07:46
PROVIDERS: PCP Internal Medicine; Visit Provider Nurse Practitioner Family
DX: R30.0 Dysuria (principal); N39.0 Urinary tract infection, site not specified; N39.9 Disorder of urinary system, unspecified; N28.1 Cyst of kidney, acquired; Z90.5 Acquired absence of kidney
CPT/HCPCS: 51798; 81003; 88112; 99212

== ENCOUNTER 2024-03-20 05:47 | Day surgery (SDC) | payer OTHER, SELFPAY ==
--- NOTE | 2024-03-20 06:39 | P.CONAN_ITS ---
COUNT INCLUDES THE [facility] Active Problems Active Problems: All Active Problems Multiple thyroid nodules (Acute) Thyroid nodule (Acute) Abdominal wall pain in left flank (Acute) Pulmonary embolism (Acute) Abnormal LFTs (Acute) Left-sided weakness (Acute) Shortness of breath (Acute) Cough (Acute) Chest pain (Acute) PTSD (post-traumatic stress disorder) (Acute) Depression with suicidal ideation (Acute) Dizziness (Acute) Ventral hernia (Acute) Flank hernia (Acute) Sacroiliac joint dysfunction of both sides (Acute) Abdominal pannus (Acute) Depression (Acute) Hypotension (Acute) Lower urinary tract symptoms (Acute) Complicated urinary tract infection (Acute) Osteoporosis screening (Acute) Chronic kidney disease, stage III (moderate) (Acute) Paresthesia (Acute) Recurrent urinary tract infection (Acute) Solitary kidney, acquired (Acute) Orthostatic dizziness (Acute) Symptomatic abdominal panniculus (Acute) Panniculitis (Acute) Bilateral leg weakness (Acute) Obesity (Acute) Overweight (BMI 25.0-29.9) (Acute) Urinary tract infection (Acute) Dysuria (Acute) Skin laxity (Acute) Painful sexual intercourse (Acute) Dyspareunia, female (Acute) Nephrolithiasis (Acute) Constipation (Acute) Colon cancer screening (Acute) Overweight (Acute) Sacroiliac joint pain (Acute) Left lumbar radiculopathy (Acute) Memory impairment (Acute) Renal cyst (Acute) Transaminitis (Acute) Elevated LFTs (Acute) Abdominal wall mass (Acute) Annual physical exam (Acute) Bilateral elbow joint pain (Acute) Hip pain, bilateral (Acute) Knee pain, bilateral (Acute) Arthralgia (Acute) UTI (urinary tract infection) (Acute) Post traumatic stress disorder (PTSD) (Acute) MDD (major depressive disorder), recurrent, severe, with psychosis (Acute) Encounter to discuss test results (Acute) Urinary frequency (Acute) Urinary incontinence (Acute) Excess skin (Acute) Renal calculus, right (Acute) MIGUEL (obstructive sleep apnea) (Acute) Obesity (BMI 30-39.9) (Acute) Renal cyst (Acute) Diverticulosis (Acute) Tubular adenoma (Acute) Spondylosis of lumbar spine (Acute) Sacroiliitis (Acute) Dizziness of unknown etiology (Acute) Chronic constipation (Acute) History of gastric bypass (Acute ~2008) Dyspareunia (Acute) Pyelonephritis (Acute) Ingrown toenail (Acute) Iron deficiency anemia (Acute) Major depression, recurrent (Acute) Anxiety (Acute) Insomnia (Acute) Tremor (Acute) Orthostatic hypotension (Acute) Incisional hernia without obstruction or gangrene (Acute) Avascular necrosis of femoral head (Acute) Bilateral carpal tunnel syndrome (Acute) Peroneal neuropathy (Acute) Lumbar degenerative disc disease (Acute) Vitamin D deficiency (Acute) GERD (gastroesophageal reflux disease) (Acute) Migraine (Acute) Hyperlipidemia (Acute) Past Medical History Medical History Chronic kidney disease, stage III (moderate) Obesity (BMI 30-39.9) Renal cyst Diverticulosis Tubular adenoma Asthma Spondylosis of lumbar spine Sacroiliitis Dizziness of unknown etiology Chronic constipation Hx of schizophrenia Panic attacks PTSD (post-traumatic stress disorder) Dyspareunia Pyelonephritis Ingrown toenail Iron deficiency anemia Major depression, recurrent Anxiety Insomnia Tremor Orthostatic hypotension Incisional hernia without obstruction or gangrene Avascular necrosis of femoral head Bilateral carpal tunnel syndrome Peroneal neuropathy Lumbar degenerative disc disease Vitamin D deficiency GERD (gastroesophageal reflux disease) Migraine Hyperlipidemia Family History Family History Father Liver cancer Mother Breast cancer Sister Lung cancer Other Mental health problem Family history of problems with anesthesia: No Surgical History Surgical History History of left nephrectomy (~1999) History of colonoscopy History of surgery Hx of cystoscopy History of bilateral breast reduction surgery History of hysterectomy History of cholecystectomy History of endoscopy (~06/2016) History of bladder repair surgery (~03/2015) S/P cystoscopy (~07/30/12) S/P panniculectomy History of hernia repair (~03/29/10) History of bladder surgery (~10/2009) History of gastric bypass (~2008) History of incisional hernia repair (~1999) Hx of umbilical hernia repair (~1999) H/O left nephrectomy S/P laparoscopic sleeve gastrectomy History of Problems with Anesthesia: No Social History Social History Household Members: Spouse and Family Housing: House Do you presently have visiting nurse or other home services: No Alcohol intake: never Patient Tobacco Use Status: Never used Tobacco e-Cigarette/Vaping Use: Never Used Second Hand Smoke Exposure: No Advance Directives: No Advance Directives Information Provided: Yes Advance Directives Date on File: 07/12/21 service: No Current occupational status: disabled Sexual orientation: Straight/Heterosexual Cognitive needs: No Hearing needs: No Vision needs: Yes Meds Allergies Allergy/AdvReac Type Severity Reaction Status Date / Time atorvastatin AdvReac Intermediate other Verified 03/19/24 08:23 acetaminophen AdvReac Unknown Unknown Verified 03/19/24 08:23 Home Medications ?Medication ?Instructions ?Recorded ?Confirmed ?Last Taken ?Type potassium citrate 5 mEq (540 mg) 5 meq PO DAILY 06/13/23 03/06/24 01/21/24 History tablet,extended release lurasidone 40 mg tablet 40 mg PO DAILY 03/11/24 Unknown History naproxen 500 mg tablet mg PO 03/11/24 Unknown History sumatriptan succinate 50 mg tablet mg PO 03/11/24 Unknown History hydrocortisone 2.5 % topical cream 1 appl DC BID-QID PRN 03/18/24 Unknown History with perineal applicator triamcinolone acetonide 0.1 % 1 appl topical DAILY 03/18/24 Unknown History topical cream Exam Airway Mallampati Class: II (missing one back molar) TM Dist: >3cm Neck ROM: Full Heart: rrr Lungs: cta Assessment and Plan Assessment Anesthesia Assessment: Anesthesia Plan Discussed and Chart Reviewed Final Anesthetic Review Family History of Problems with Anesthesia: No History of Problems with Anesthesia: No NPO: Yes ASA Class: III Final Preanesthetic Review: No Changes in Pt Med Stat, Meds/Allgs Chart Reviewed and Consent Obtained/Reviewed Patient Risk: Low Procedure Risk: Intermediate Anesthetic Plan Anesthetic Plan: GA Disposition: Standard PACU
[2024-03-20 06:42] VITALS: BMI 28.3
[2024-03-20] MEDS: Lactated Ringers 1,000 ML 50 ML IVCONT (06:44)
[2024-03-20 07:19] VITALS: BP 179/88; PULSE 65; RESP 16; TEMP 36.6; O2SAT 94
[2024-03-20 07:20] VITALS: BP 196/91; PULSE 65; RESP 16; O2SAT 98
--- NOTE | 2024-03-20 07:20 | MHC.SHP ---
Pre-Procedural Eval Section A - 24 Hr Update-Section A only Date of Service: 03/20/24 The patient is an INPATIENT: No Changes since office visit: No Cold of Flu in the past 2 weeks, No New Medical Problems, No Changes in Medication and No Patient answered all questions The patient has been examined within 24 hours of the surgical procedure. The History & Physical has been completed within 30 days and I have reviewed it.: Yes Section B - Complete if H&P > 30 days Chief Complaint: depression Details of Present Illness: depression is much better but she has developped somoe involuntary movements on the face, TD? Relevant Family History (Specify if Yes): No Relevant Social History: None Present Medications: None Medical History: No relevant PMH History of Previous Operations: No relevant previous surgery Allergies: Allergies Allergy/AdvReac Type Severity Reaction Status Date / Time atorvastatin AdvReac Intermediate other Verified 03/19/24 08:23 acetaminophen AdvReac Unknown Unknown Verified 03/19/24 08:23 Review of Systems Sugical H&P ROS: Negative: Constitution, Cardiovascular, Respiratory, Neurological, Psychiatric, Hem-Onc, Allergic/Immunologic, Gastrointestinal, Genitourinary, Musculoskeletal, Integumentary, Endocrine and Eyes/Ears/Nose/Throat Exam Surgical H&P Exam: Normal: HEENT, Normal: Heart, Normal: Lungs, Normal: Extremities, Normal: Abdomen, Normal: Skin and Normal: Neurological Plan Diagnosis/Plan: Unchanged I have reviewed the history and physical and performed a pertinent physical examination on my patient. No changes have occurred unless specified. Time Spent With Patient Time: Total time managing care of this patient today __15__ minutes.
--- NOTE | 2024-03-20 07:23 | HO.ECTPROC ---
ECT Procedure Note Diagnosis/Treatment Date of Service: 03/20/24 Diagnosis: Major Depressive Disorder Previous ECT Date: 03/06/24 Current Treatment Number: 8 Treatment: Maintenance Interval Clinical Notes: The patient reported improvement of her depression but recenlty, she had involuntary movements on her jaw, probably TD. No side effects with the previous ECT. ECT done as usual, she had a seizure that resolved by ifself, woke up well, no complications. Time: Total time managing care of this patient today __30__ minutes. ECT Settings Device: THYMATRON DGx Electrode Placement: Right Unilateral Program/Pulse Width: 0.50 Energy Percent: 80 Seizure Duration By EEG (in seconds): 23 (but EEG showed seizure activity until 48s) By Motor Observation (in seconds): 0 Medications Administration General Anesthetic: Etomidate (10) Muscle Relaxant: Succinylcholine (80) Airway Management Airway Management: Bag Mask Ventilation Treatment Recommendations No Changes Recommended: No change
[2024-03-20 07:25] VITALS: BP 105/74; PULSE 74; RESP 16; O2SAT 98
[2024-03-20 07:30] VITALS: BP 141/83; PULSE 81; RESP 16; O2SAT 99
[2024-03-20 07:45] VITALS: BP 133/77; PULSE 74; RESP 16; O2SAT 99
[2024-03-20 08:00] VITALS: BP 122/97; PULSE 66; RESP 16; O2SAT 99
== END 2024-03-20 08:28 | disposition home or self-care (01) ==
PROVIDERS: PCP Internal Medicine; Visit Provider Psychiatry & Neurology Psychiatry
PROC: (CPT 90870; principal; 2024-03-20 07:30)
DX: F33.2 Major depressive disorder, recurrent severe without psychotic features (principal); R25.9 Unspecified abnormal involuntary movements; F43.10 Post-traumatic stress disorder, unspecified; N18.30 Chronic kidney disease, stage 3 unspecified; Z90.5 Acquired absence of kidney; J45.909 Unspecified asthma, uncomplicated; M51.362 Other intervertebral disc degeneration, lumbar region with discogenic back pain and lower extremity pain; I95.1 Orthostatic hypotension; E78.00 Pure hypercholesterolemia, unspecified; E55.9 Vitamin D deficiency, unspecified; D50.9 Iron deficiency anemia, unspecified; R79.89 Other specified abnormal findings of blood chemistry; F51.01 Primary insomnia; E66.9 Obesity, unspecified; Z68.29 Body mass index [BMI] 29.0-29.9, adult; Z79.01 Long term (current) use of anticoagulants; Z79.899 Other long term (current) drug therapy; Z99.89 Dependence on other enabling machines and devices; Z98.84 Bariatric surgery status; Z98.890 Other specified postprocedural states
CPT/HCPCS: 90870; J0330

== ENCOUNTER → 2024-03-20 05:47 | Outpatient (BNV) | payer OTHER, SELFPAY | PROVIDERS: PCP Internal Medicine; Visit Provider Psychiatry & Neurology Psychiatry | DX: F33.3 Major depressive disorder, recurrent, severe with psychotic symptoms (principal) | CPT/HCPCS: 90870 ==

== ENCOUNTER 2024-04-01 12:18 | Outpatient (AMB) | payer OTHER, SELFPAY ==
--- NOTE | 2024-04-01 12:21 | A.OFFVIS_ITS ---
Vital Signs 04/01/24 12:23 Height 5 ft 3 in Weight 169 lb 8.568 oz BMI 30.0 BP 106/68 Blood Pressure Location Lt brachial Position Sitting Pulse 63 Pulse Source Pulse Oximeter Intake Visit Reasons: Nontoxic single thyroid nodule Intake Note: New patient present today for Nontoxic single thyroid nodule office visit. Director Of Investigations Required: Yes Director Of Investigations Language: Case Picker Services: Director Of Investigations Present Information Interpreted: non-clinical & clinical Accompanied by: Self / Same As Patient Allergies atorvastatin Adverse Reaction (Intermediate, Verified 04/01/24 12:25) other acetaminophen Adverse Reaction (Unknown, Verified 04/01/24 12:25) Unknown Medication List - Last Reconciled 04/01/24 by Luna Mejia MD albuterol sulfate 90 mcg/actuation (Ventolin HFA) 2 puffs inhalation Q6H PRN 30 days apixaban (Eliquis) 5 mg PO BID 30 days bisacodyl (Dulcolax (bisacodyl)) 10 mg (2 x 5 mg) PO BEDTIME blood pressure monitor As directed [id number]-[id number] 50-325-40 mg 2 tabs PO Q6H PRN 30 days cariprazine (Vraylar) 4.5 mg (3 x 1.5 mg) PO DAILY 30 days cholecalciferol (vitamin D3) (Vitamin D3) 25 mcg PO DAILY 90 days [CPAP device and all related supplies As directed] cyanocobalamin (vitamin B-12) 500 mcg PO DAILY 30 days diphenhydramine HCl (Banophen) 25 mg PO TID PRN 30 days docusate sodium 100 mg PO DAILY estradiol 0.01%(0.1mg/gram) vaginally 3 times a week; pea sized amount to urethra 3 times a week 90 days ferrous sulfate 325 mg PO DAILY 90 days gabapentin 800 mg PO TID 30 days hydrocortisone 2.5% 1 appl AR BID-QID PRN hydroxyzine HCl 25 mg PO Q6H PRN 30 days lorazepam 1 mg PO BID PRN 30 days lurasidone 40 mg PO DAILY meclizine 25 mg PO TID PRN 30 days melatonin 10 mg (2 x 5 mg) PO BEDTIME PRN 30 days midodrine 10 mg PO TID 30 days mirtazapine 15 mg PO BEDTIME 30 days mometasone 0.1% 1 appl topical DAILY PRN naproxen mg PO pantoprazole 40 mg PO DAILY@0630 30 days potassium citrate ER 5 mEq PO DAILY risperidone 2 mg PO BID 30 days rosuvastatin 5 mg PO DAILY 30 days sulfamethoxazole-trimethoprim 800-160 mg (Bactrim DS) 1 tab PO BID 14 days sumatriptan succinate mg PO topiramate 100 mg PO DAILY 30 days tramadol 100 mg (2 x 50 mg) PO Q8H PRN 30 days trazodone 50 mg PO BEDTIME PRN 30 days triamcinolone acetonide 0.1% 1 appl topical DAILY HPI Comments Details: 53-year-old female coming in today for initial evaluation of thyroid nodules.Otherwise medical history significant for CKD stage 3, , hyperlipidemia, hx nephrectomy, hx gastric bypass around 2018, migraines, GERD, MIGUEL on CPAP anxiety, depression, schizophrenia. Seen today with crematory attendant. Patient had a CT chest February 01, 2024 which pointed towards an enlarged left lobe of the thyroid. Patient had a head and neck CTA 02/04/2024 due to concerns for stroke, which incidentally showed multinodular thyroid gland. During hospitalisiztion diagnosed with PE , on elequis. No US thyroid done. No diarrhea, reports constipation. Weight stable. Reports intermittent palpitaions. Patient currently denies heat or cold intolerance, hair loss, , mood changes, low energy, changes in appearance of eyes or vision changes, tremors, increased diaphoresis or dry skin. ? Patient denies any difficulty swallowing, pain on swallowing or voice changes or difficulty breathing. Does complain of mild pressure sensation on neck when she lays down flat. Patient denies any history of childhood neck radiation. Denies having ever used lithium, amiodarone or biotin supplements. Patient denies any family history of thyroid cancer or thyroid disease. Physical exam General: sitting comfortably in no acute distress HEENT: normocephalic/atraumatic, moist oral mucosa Neck: supple, palpable B/l 1-2 cm nodules Cardiac: normal heart sounds Pulm: normal breath sounds B/L, no added breath sounds Abd: not distended, no tenderness Extremities: no edema, no signs of myxedema Laboratory Tests 02/20/24 03/18/24 16:33 12:[address] angio head neck stroke January 2024 CLINICAL INFORMATION: Left-sided weakness. COMPARISON: CT head 02/04/2024. CT angiogram head and neck 01/22/2024. TECHNIQUE: Supercharger Mechanic images were obtained. A CT angiogram of the head and neck was performed in the arterial phase after the intravenous administration of 70 mL Omnipaque 350. Pre and delayed postcontrast images of the head were also obtained. 3D images were processed on an independent workstation under concurrent supervision. Arterial stenoses are measured in accordance with NASCET criteria or similar method if applicable. This CT examination was performed using dose optimization techniques as appropriate, including one or more of the following: Automated exposure control, iterative reconstruction, and adjustment of technique factors (mA and/or kVp) according to patient size (this includes techniques or standardized protocols for targeted exams where dose is matched to indication/reason for exam). Fleischner Society criteria for the followup of incidental pulmonary nodules was implemented if appropriate. Total exam dose-length product 1408 mGy-cm FINDINGS: Head: There is a tiny developmental venous anomaly traversing the left frontal lobe. Postcontrast images reveal no abnormal intracranial mass or enhancement. There is no intracranial mass effect or midline shift. Lateral and third ventricles are normal. No hydrocephalus. Mckeon-white matter differentiation is preserved and there is no evidence of acute territorial infarct. The calvarium and skull base are intact. No mastoid or middle ear effusion. No active paranasal sinus disease. CT angiogram neck: There is an aberrant right subclavian artery. Origins of the major aortic branches are otherwise patent. Common carotid arteries are normal and the carotid bifurcations are normal. No stenosis of the extracranial internal carotid arteries. The cervical segments of the vertebral arteries are widely patent. CT angiogram head: The intracranial internal carotid arteries are normal. The intradural vertebral artery segments and basilar artery are normal. Anterior, middle, and posterior cerebral artery complexes are normal. No intracranial large vessel occlusion. No identifiable aneurysm or high flow vascular lesion. Other: There is a multinodular thyroid gland. Soft tissues of the neck are otherwise unremarkable. Grossly no pathologically enlarged cervical lymph nodes. Visualized lung apices are clear. No acute osseous finding. CT/CT angio head neck stroke IMPRESSION: Unremarkable examination in that there is no stenosis of the cervical carotid or vertebral arteries. No intracranial large vessel occlusion. No evidence of acute territorial infarct or hemorrhage. No abnormal intracranial mass or enhancement. This critical result was discussed with Dr. Obregon at 3:02 PM on 02/04/2024 and it was ascertained that the content and urgency of the report was understood at the time of direct communication. Electronically signed by: Vincenzo Brizuela MD 02/04/2024 03:[address] ANGIOGRAM OF THE CHEST WITH AND WITHOUT CONTRAST (CT PULMONARY ANGIOGRAM FOR PE) January 2024 CLINICAL INFORMATION: Chest pain. COMPARISON: CT chest performed earlier at 8:53 AM. TECHNIQUE: Prior to contrast administration, noncontrast localization images were obtained. Subsequently, multidetector volumetric imaging was performed of the chest following the administration of 65 mL Omnipaque 350 intravenous contrast. No contrast reaction reported Sagittal, coronal, and MIP oblique sagittal (through the chest only) reformatted images were obtained on the CT workstation, uploaded to PACS, and reviewed. Total exam dose-length product 327 mGy-cm This CT examination was performed using dose optimization techniques as appropriate, variously including the following: *Automated exposure control *Adjustment of mA and/or kV according to patient size (this includes techniques or standardized protocols for targeted exams where dose is matched to indication/reason for exam; i.e. extremities or head) *Use of iterative reconstruction technique FINDINGS: QUALITY OF STUDY/CONTRAST BOLUS: Suboptimal. PULMONARY ARTERIES: Limited evaluation secondary to motion. Pulmonary emboli are noted in the right main pulmonary artery and segmental branches of the right lower lobe. THORACIC AORTA: Aberrant right subclavian artery. Normal caliber of the thoracic aorta. LUNG: Limited evaluation due to respiratory motion. Low lung volumes. Increased mosaic attenuation of lung parenchyma compared to earlier today. No dense consolidation. Central airways are patent. Pulmonary nodules are better visualized on the CT chest from earlier today in view of the limitations of motion of the current study, please refer to the prior examination for management recommendations. PLEURA: No pleural effusion or pneumothorax. MEDIASTINUM: Normal heart size. No pericardial effusion. No evidence of septal bowing. No mediastinal or hilar lymphadenopathy. Asymmetric enlargement of the left lobe of the thyroid along with mild heterogeneity. CHEST WALL/AXILLA: Simple fluid attenuating 0.9 cm nodule in the right breast (6:235). No axillary lymphadenopathy. UPPER ABDOMEN: Mild reflux of contrast into the hepatic veins. Partially seen postsurgical changes from gastric bypass. Cholecystectomy. OSSEOUS STRUCTURES: No acute or suspicious osseous abnormality. CT/CT angio chest PE protocol IMPRESSION: 1. Pulmonary emboli in the right main pulmonary artery and segmental branches of the right lower lobe. 2. Mild reflux of contrast into the hepatic veins that could indicate elevated right-sided heart pressures. 3. Increased mosaic attenuation of the lung parenchyma compared to earlier today which could be related with air trapping in the setting of small airways disease. 4. Pulmonary nodules are better visualized on the CT chest from earlier today in view of the limitations of motion of the current study, please refer to the prior examination for management recommendations. 5. Simple fluid attenuating 0.9 cm nodule in the right breast, possibly a cyst. Recommend correlation with recent priors dedicated breast imaging and if the patient is due further evaluation with outpatient dedicated breast imaging. 6. Asymmetric enlargement of the left lobe of the thyroid with mild heterogeneity. Recommend further evaluation with outpatient thyroid ultrasound. VTE: positive. This critical result was discussed with Dr. Simms at 02/01/2024 7:27 PM CDT and it was ascertained that the content and urgency of the report was understood at the time of direct communication. Electronically signed by: Ivory Titus MD 02/01/2024 08:27 PM EDT [facility] Medical History Chronic kidney disease, stage III (moderate) Obesity (BMI 30-39.9) Renal cyst Diverticulosis Tubular adenoma Asthma Spondylosis of lumbar spine Sacroiliitis Dizziness of unknown etiology Chronic constipation Hx of schizophrenia Panic attacks PTSD (post-traumatic stress disorder) Dyspareunia Pyelonephritis Ingrown toenail Iron deficiency anemia Major depression, recurrent Anxiety Insomnia Tremor Orthostatic hypotension Incisional hernia without obstruction or gangrene Avascular necrosis of femoral head Bilateral carpal tunnel syndrome Peroneal neuropathy Lumbar degenerative disc disease Vitamin D deficiency GERD (gastroesophageal reflux disease) Migraine Hyperlipidemia Surgical History History of left nephrectomy (~1999) History of colonoscopy History of surgery Hx of cystoscopy History of bilateral breast reduction surgery History of hysterectomy History of cholecystectomy History of endoscopy (~06/2016) History of bladder repair surgery (~03/2015) S/P cystoscopy (~07/30/12) S/P panniculectomy History of hernia repair (~03/29/10) History of bladder surgery (~10/2009) History of gastric bypass (~2008) History of incisional hernia repair (~1999) Hx of umbilical hernia repair (~1999) H/O left nephrectomy S/P laparoscopic sleeve gastrectomy Family History Father Liver cancer Mother Breast cancer Sister Lung cancer Other Mental health problem Social History Household Members: Spouse and Family Housing: House Do you presently have visiting nurse or other home services: No Alcohol intake: never Patient Tobacco Use Status: Never used Tobacco e-Cigarette/Vaping Use: Never Used Second Hand Smoke Exposure: No Advance Directives Date on File: 07/12/21 service: No Current occupational status: disabled Sexual orientation: Straight/Heterosexual Cognitive needs: No Hearing needs: No Vision needs: Yes Female Reproductive History Menstrual Age of Menarche: 13 Physical Exam Vital Signs: Last Vital Signs Pulse 63 04/01/24 12:23 BP 106/68 04/01/24 12:23 BMI result Body Mass Index 30.0 Assessment & Plan Assessment & Plan (1) Multiple thyroid nodules: Code(s): E04.2 - Nontoxic multinodular goiter Category: Medical Plan: 53-year-old female with no past medical history of head or neck radiation with no family history of thyroid cancer, who is coming in today to establish care for multinodular goiter. During January 2024 she was hospitalized for PE, underwent CTA chest/neck which showed multinodular goiter. No ultrasound of the thyroid done yet. I explained that it is common to have thyroid nodules. About 95% of the time these nodules are benign. However if the nodule is > 1 cm in size or suspicious on ultrasound then a fine need aspiration biopsy is recommended. At this time 1st we will obtain a thyroid ultrasound. She does not have any compressive symptoms. TSH normal from March 2024. Plan: -ordered thyroid ultrasound -follow up in 4 weeks to discuss results Orders: Orders US thyroid Today E04.2 - Nontoxic multinodular goiter Patient Instructions: Do thyroid ultrasound, someone will call you to schedule this Follow up in 4 weeks to discuss results Hazte mateus ecograf?a de tiroides, alguien te llamar? para programarla Seguimiento en 4 semanas para discutir los resultados. Coding Level of Care Code New Pt Level 4 (54584) Diagnoses Multiple thyroid nodules E04.2 Time Spent (min) 45
[2024-04-01 12:23] VITALS: BP 106/68; PULSE 63
== END 2024-04-01 12:51 | disposition home or self-care (01) ==
PROVIDERS: PCP Internal Medicine; Visit Provider Student in an Organized Health Care Education/Training Program
DX: E04.2 Nontoxic multinodular goiter (principal)
CPT/HCPCS: 99204

== ENCOUNTER → 2024-04-01 12:18 | Outpatient (BNVA) | payer OTHER, SELFPAY | PROVIDERS: PCP Internal Medicine; Visit Provider Student in an Organized Health Care Education/Training Program | DX: E04.2 Nontoxic multinodular goiter (principal); E78.5 Hyperlipidemia, unspecified; N18.30 Chronic kidney disease, stage 3 unspecified; Z98.84 Bariatric surgery status; Z90.5 Acquired absence of kidney | CPT/HCPCS: 99202 ==

== ENCOUNTER 2024-04-03 12:07 | Day surgery (SDC) | payer OTHER, SELFPAY ==
--- NOTE | 2024-04-03 13:54 | P.CONAN_ITS ---
[facility] Active Problems Active Problems: All Active Problems Multiple thyroid nodules (Acute) Thyroid nodule (Acute) Abdominal wall pain in left flank (Acute) Pulmonary embolism (Acute) Abnormal LFTs (Acute) Left-sided weakness (Acute) Shortness of breath (Acute) Cough (Acute) Chest pain (Acute) PTSD (post-traumatic stress disorder) (Acute) Depression with suicidal ideation (Acute) Dizziness (Acute) Ventral hernia (Acute) Flank hernia (Acute) Sacroiliac joint dysfunction of both sides (Acute) Abdominal pannus (Acute) Depression (Acute) Hypotension (Acute) Lower urinary tract symptoms (Acute) Complicated urinary tract infection (Acute) Osteoporosis screening (Acute) Chronic kidney disease, stage III (moderate) (Acute) Paresthesia (Acute) Recurrent urinary tract infection (Acute) Solitary kidney, acquired (Acute) Orthostatic dizziness (Acute) Symptomatic abdominal panniculus (Acute) Panniculitis (Acute) Bilateral leg weakness (Acute) Obesity (Acute) Overweight (BMI 25.0-29.9) (Acute) Urinary tract infection (Acute) Dysuria (Acute) Skin laxity (Acute) Painful sexual intercourse (Acute) Dyspareunia, female (Acute) Nephrolithiasis (Acute) Constipation (Acute) Colon cancer screening (Acute) Overweight (Acute) Sacroiliac joint pain (Acute) Left lumbar radiculopathy (Acute) Memory impairment (Acute) Renal cyst (Acute) Transaminitis (Acute) Elevated LFTs (Acute) Abdominal wall mass (Acute) Annual physical exam (Acute) Bilateral elbow joint pain (Acute) Hip pain, bilateral (Acute) Knee pain, bilateral (Acute) Arthralgia (Acute) UTI (urinary tract infection) (Acute) Post traumatic stress disorder (PTSD) (Acute) MDD (major depressive disorder), recurrent, severe, with psychosis (Acute) Encounter to discuss test results (Acute) Urinary frequency (Acute) Urinary incontinence (Acute) Excess skin (Acute) Renal calculus, right (Acute) MIGUEL (obstructive sleep apnea) (Acute) Obesity (BMI 30-39.9) (Acute) Renal cyst (Acute) Diverticulosis (Acute) Tubular adenoma (Acute) Spondylosis of lumbar spine (Acute) Sacroiliitis (Acute) Dizziness of unknown etiology (Acute) Chronic constipation (Acute) History of gastric bypass (Acute ~2008) Dyspareunia (Acute) Pyelonephritis (Acute) Ingrown toenail (Acute) Iron deficiency anemia (Acute) Major depression, recurrent (Acute) Anxiety (Acute) Insomnia (Acute) Tremor (Acute) Orthostatic hypotension (Acute) Incisional hernia without obstruction or gangrene (Acute) Avascular necrosis of femoral head (Acute) Bilateral carpal tunnel syndrome (Acute) Peroneal neuropathy (Acute) Lumbar degenerative disc disease (Acute) Vitamin D deficiency (Acute) GERD (gastroesophageal reflux disease) (Acute) Migraine (Acute) Hyperlipidemia (Acute) Past Medical History Medical History Chronic kidney disease, stage III (moderate) Obesity (BMI 30-39.9) Renal cyst Diverticulosis Tubular adenoma Asthma Spondylosis of lumbar spine Sacroiliitis Dizziness of unknown etiology Chronic constipation Hx of schizophrenia Panic attacks PTSD (post-traumatic stress disorder) Dyspareunia Pyelonephritis Ingrown toenail Iron deficiency anemia Major depression, recurrent Anxiety Insomnia Tremor Orthostatic hypotension Incisional hernia without obstruction or gangrene Avascular necrosis of femoral head Bilateral carpal tunnel syndrome Peroneal neuropathy Lumbar degenerative disc disease Vitamin D deficiency GERD (gastroesophageal reflux disease) Migraine Hyperlipidemia Family History Family History Father Liver cancer Mother Breast cancer Sister Lung cancer Other Mental health problem Family history of problems with anesthesia: No Surgical History Surgical History History of left nephrectomy (~1999) History of colonoscopy History of surgery Hx of cystoscopy History of bilateral breast reduction surgery History of hysterectomy History of cholecystectomy History of endoscopy (~06/2016) History of bladder repair surgery (~03/2015) S/P cystoscopy (~07/30/12) S/P panniculectomy History of hernia repair (~03/29/10) History of bladder surgery (~10/2009) History of gastric bypass (~2008) History of incisional hernia repair (~1999) Hx of umbilical hernia repair (~1999) H/O left nephrectomy S/P laparoscopic sleeve gastrectomy History of Problems with Anesthesia: No Social History Social History Household Members: Spouse and Family Housing: House Do you presently have visiting nurse or other home services: No Alcohol intake: never Patient Tobacco Use Status: Never used Tobacco e-Cigarette/Vaping Use: Never Used Second Hand Smoke Exposure: No Advance Directives: No Advance Directives Information Provided: Yes Advance Directives Date on File: 07/12/21 service: No Current occupational status: disabled Sexual orientation: Straight/Heterosexual Cognitive needs: No Hearing needs: No Vision needs: Yes Meds Allergies Allergy/AdvReac Type Severity Reaction Status Date / Time atorvastatin AdvReac Intermediate other Verified 04/01/24 12:25 acetaminophen AdvReac Unknown Unknown Verified 04/01/24 12:25 Home Medications ?Medication ?Instructions ?Recorded ?Confirmed ?Last Taken ?Type potassium citrate 5 mEq (540 mg) 5 meq PO DAILY 06/13/23 04/01/24 01/21/24 History tablet,extended release lurasidone 40 mg tablet 40 mg PO DAILY 03/11/24 04/01/24 Unknown History naproxen 500 mg tablet mg PO 03/11/24 04/01/24 Unknown History sumatriptan succinate 50 mg tablet mg PO 03/11/24 04/01/24 Unknown History hydrocortisone 2.5 % topical cream 1 appl [place] BID-QID PRN 03/18/24 04/01/24 Unknown History with perineal applicator triamcinolone acetonide 0.1 % 1 appl topical DAILY 03/18/24 04/01/24 Unknown History topical cream Exam Airway Mallampati Class: II TM Dist: >3cm Neck ROM: Full Loose/Missing/Broken Teeth: No Heart: RRR Lungs: CTA Assessment and Plan Assessment Anesthesia Assessment: Anesthesia Plan Discussed and Chart Reviewed Final Anesthetic Review Family History of Problems with Anesthesia: No History of Problems with Anesthesia: No NPO: Yes ASA Class: III Final Preanesthetic Review: Meds/Allgs Chart Reviewed, Consent Obtained/Reviewed and Anes Risks/Benef Reviewed Patient Risk: Intermediate Procedure Risk: Intermediate Anesthetic Plan Anesthetic Plan: GA Disposition: Standard PACU
[2024-04-03 14:05] VITALS: BP 131/60; PULSE 49; RESP 17; TEMP 36.2; O2SAT 99; BMI 29.6
--- NOTE | 2024-04-03 14:40 | MHC.SHP ---
Pre-Procedural Eval Section A - 24 Hr Update-Section A only Date of Service: 04/03/24 The patient is an INPATIENT: No Changes since office visit: Yes Cold of Flu in the past 2 weeks, Yes New Medical Problems, Yes Changes in Medication and Yes Patient answered all questions The patient has been examined within 24 hours of the surgical procedure. The History & Physical has been completed within 30 days and I have reviewed it.: Yes Section B - Complete if H&P > 30 days Chief Complaint: Major depressive disorder, recurrent, severe with Allergies: Allergies Allergy/AdvReac Type Severity Reaction Status Date / Time atorvastatin AdvReac Intermediate other Verified 04/01/24 12:25 acetaminophen AdvReac Unknown Unknown Verified 04/01/24 12:25 Plan I have reviewed the history and physical and performed a pertinent physical examination on my patient. No changes have occurred unless specified. Time Spent With Patient Time: Total time managing care of this patient today ____ minutes.
[2024-04-03 14:55] VITALS: BP 144/97; PULSE 59; RESP 17; TEMP 36.6; O2SAT 98
--- NOTE | 2024-04-03 14:55 | HO.ECTPROC ---
ECT Procedure Note Diagnosis/Treatment Date of Service: 04/03/24 Diagnosis: Major Depressive Disorder Previous ECT Date: 03/20/24 Current Treatment Number: 8 Treatment: Series Interval Clinical Notes: The patient reported stable mood, no side effects with the last ECT. She had been complaining of involuntary movmentes on her limbs and jaw, compatiblie with TD. She is going to see her psychiatrist next Monday and I advised to review her Risperdal. So far, no psychotic symptoms ECT done as usual, no complicatinos, she had a long seizure but overall, no new problems, woke up well. Time: Total time managing care of this patient today __30__ minutes. ECT Settings Device: THYMATRON DGx Electrode Placement: Right Unilateral Program/Pulse Width: 0.50 Energy Percent: 100 Seizure Duration By EEG (in seconds): 87 By Motor Observation (in seconds): 45 Medications Administration General Anesthetic: Etomidate (10) Muscle Relaxant: Succinylcholine (80) Airway Management Airway Management: Bag Mask Ventilation Treatment Recommendations No Changes Recommended: No change Pt Tolerated Procedure w/o Issue: Yes
[2024-04-03 15:00] VITALS: BP 137/91; PULSE 82; RESP 16; O2SAT 98
[2024-04-03 15:05] VITALS: BP 130/97; PULSE 84; RESP 16; O2SAT 98
[2024-04-03 15:10] VITALS: BP 133/87; PULSE 91; RESP 16; O2SAT 96
[2024-04-03 15:25] VITALS: BP 111/82; PULSE 95; RESP 18; TEMP 36.6; O2SAT 95
[2024-04-03] MEDS: Ondansetron ODT 4 MG TAB.RAPDIS TRANSLINGU (16:08)
== END 2024-04-03 15:43 | disposition home or self-care (01) ==
PROVIDERS: PCP Internal Medicine; Visit Provider Psychiatry & Neurology Psychiatry
PROC: (CPT 90870; principal; 2024-04-03 14:00)
DX: F33.2 Major depressive disorder, recurrent severe without psychotic features (principal); F41.9 Anxiety disorder, unspecified; R25.9 Unspecified abnormal involuntary movements; F43.10 Post-traumatic stress disorder, unspecified; F51.01 Primary insomnia; N18.30 Chronic kidney disease, stage 3 unspecified; Z90.5 Acquired absence of kidney; J45.909 Unspecified asthma, uncomplicated; I95.1 Orthostatic hypotension; M47.816 Spondylosis without myelopathy or radiculopathy, lumbar region; E78.00 Pure hypercholesterolemia, unspecified; E04.2 Nontoxic multinodular goiter; E55.9 Vitamin D deficiency, unspecified; D50.9 Iron deficiency anemia, unspecified; R79.89 Other specified abnormal findings of blood chemistry; R41.3 Other amnesia; G47.33 Obstructive sleep apnea (adult) (pediatric); E66.9 Obesity, unspecified; Z68.29 Body mass index [BMI] 29.0-29.9, adult; Z79.01 Long term (current) use of anticoagulants; Z79.899 Other long term (current) drug therapy; Z99.89 Dependence on other enabling machines and devices; Z98.84 Bariatric surgery status; Z98.890 Other specified postprocedural states; Z88.8 Allergy status to other drugs, medicaments and biological substances
CPT/HCPCS: 90870; J0330

== ENCOUNTER → 2024-04-03 12:07 | Outpatient (BNV) | payer OTHER, SELFPAY | PROVIDERS: PCP Internal Medicine; Visit Provider Psychiatry & Neurology Psychiatry | DX: F33.2 Major depressive disorder, recurrent severe without psychotic features (principal) | CPT/HCPCS: 90870 ==

== ENCOUNTER 2024-04-05 08:28 | Outpatient (REF) | payer OTHER, SELFPAY ==
[2024-04-05 09:39] LABS: Appearance Urine Cloudy; Color Urine Yellow; Glucose Urine UA Negative (Negative); Leukocyte Esterase Urine Negative (Negative); Nitrite Urine Negative (Negative); UMIC TRIGGER UACC YES; Urine Blood Large (3+) (Negative); Urine Ketones Trace mg/dL (Negative); Urine Protein Negative (Neg-Trace)
[2024-04-05 09:43] LABS: Bacteria Urine None Seen (None Seen); Hyaline Casts Urine 0-2 /LPF (0-2); RBC Urine >20 /HPF (0-2); Squamous Epithelial Cell Urine 0-2 /HPF (0-2); WBC Urine 0-5 /HPF (0-5)
[2024-04-05 09:56] LABS: Alkaline Phosphatase 108 U/L (39-117); Anion Gap 12 (12-20); Aspartate Amino Transferase 32 U/L (5-31); Bilirubin Total 0.5 mg/dL (0.0-1.0); Blood Urea Nitrogen 16 mg/dL (9-16); Calcium 9.5 mg/dL (8.4-10.2); Carbon Dioxide 28 mmol/L (22-29); Chloride 107 mmol/L (96-108); Cholesterol 258 mg/dL (<200); Estimated Glomerular Filt Rate 53; Glucose Fasting 113 mg/dL (60-99); HDL Cholesterol 73 mg/dL (>40); LDL Cholesterol Calculated 170 mg/dL (<100); Potassium 4.3 mmol/L (3.3-5.1); Sodium 143 mmol/L (135-145); Total Protein 7.1 g/dL (6.5-8.0); Triglycerides 79 mg/dL (<150)
[2024-04-05 10:11] LABS: Alanine Aminotransferase 51 U/L (0-31)
== END 2024-04-05 08:29 | disposition home or self-care (01) ==
LOC: HO.LAB 08:28
PROVIDERS: Absent Provider Nurse Practitioner Family; PCP Internal Medicine; Visit Provider Internal Medicine
DX: E78.00 Pure hypercholesterolemia, unspecified (principal); R79.89 Other specified abnormal findings of blood chemistry
CPT/HCPCS: 36415; 80053; 80061; 81001; 81256

== ENCOUNTER → 2024-04-16 13:15 | Outpatient (BNV) | payer OTHER, SELFPAY | PROVIDERS: PCP Internal Medicine; Referring Provider Internal Medicine; Visit Provider Internal Medicine | DX: I26.99 Other pulmonary embolism without acute cor pulmonale (principal); Z79.01 Long term (current) use of anticoagulants | CPT/HCPCS: 99204; G2211 ==

== ENCOUNTER 2024-04-17 05:42 | Day surgery (SDC) | payer OTHER, SELFPAY ==
[2024-04-17 06:42] VITALS: BP 126/75; PULSE 69; RESP 16; TEMP 36; O2SAT 98
[2024-04-17 06:56] VITALS: BMI 30.2
--- NOTE | 2024-04-17 07:02 | P.CONAN_ITS ---
[facility] Active Problems Active Problems: All Active Problems Multiple thyroid nodules (Acute) Thyroid nodule (Acute) Abdominal wall pain in left flank (Acute) Pulmonary embolism (Acute) Abnormal LFTs (Acute) Left-sided weakness (Acute) Shortness of breath (Acute) Cough (Acute) Chest pain (Acute) PTSD (post-traumatic stress disorder) (Acute) Depression with suicidal ideation (Acute) Dizziness (Acute) Ventral hernia (Acute) Flank hernia (Acute) Sacroiliac joint dysfunction of both sides (Acute) Abdominal pannus (Acute) Depression (Acute) Hypotension (Acute) Lower urinary tract symptoms (Acute) Complicated urinary tract infection (Acute) Osteoporosis screening (Acute) Chronic kidney disease, stage III (moderate) (Acute) Paresthesia (Acute) Recurrent urinary tract infection (Acute) Solitary kidney, acquired (Acute) Orthostatic dizziness (Acute) Symptomatic abdominal panniculus (Acute) Panniculitis (Acute) Bilateral leg weakness (Acute) Obesity (Acute) Overweight (BMI 25.0-29.9) (Acute) Urinary tract infection (Acute) Dysuria (Acute) Skin laxity (Acute) Painful sexual intercourse (Acute) Dyspareunia, female (Acute) Nephrolithiasis (Acute) Constipation (Acute) Colon cancer screening (Acute) Overweight (Acute) Sacroiliac joint pain (Acute) Left lumbar radiculopathy (Acute) Memory impairment (Acute) Renal cyst (Acute) Transaminitis (Acute) Elevated LFTs (Acute) Abdominal wall mass (Acute) Annual physical exam (Acute) Bilateral elbow joint pain (Acute) Hip pain, bilateral (Acute) Knee pain, bilateral (Acute) Arthralgia (Acute) UTI (urinary tract infection) (Acute) Post traumatic stress disorder (PTSD) (Acute) MDD (major depressive disorder), recurrent, severe, with psychosis (Acute) Encounter to discuss test results (Acute) Urinary frequency (Acute) Urinary incontinence (Acute) Excess skin (Acute) Renal calculus, right (Acute) MIGUEL (obstructive sleep apnea) (Acute) Obesity (BMI 30-39.9) (Acute) Renal cyst (Acute) Diverticulosis (Acute) Tubular adenoma (Acute) Spondylosis of lumbar spine (Acute) Sacroiliitis (Acute) Dizziness of unknown etiology (Acute) Chronic constipation (Acute) History of gastric bypass (Acute ~2008) Dyspareunia (Acute) Pyelonephritis (Acute) Ingrown toenail (Acute) Iron deficiency anemia (Acute) Major depression, recurrent (Acute) Anxiety (Acute) Insomnia (Acute) Tremor (Acute) Orthostatic hypotension (Acute) Incisional hernia without obstruction or gangrene (Acute) Avascular necrosis of femoral head (Acute) Bilateral carpal tunnel syndrome (Acute) Peroneal neuropathy (Acute) Lumbar degenerative disc disease (Acute) Vitamin D deficiency (Acute) GERD (gastroesophageal reflux disease) (Acute) Migraine (Acute) Hyperlipidemia (Acute) Past Medical History Medical History Chronic kidney disease, stage III (moderate) Obesity (BMI 30-39.9) Renal cyst Diverticulosis Tubular adenoma Asthma Spondylosis of lumbar spine Sacroiliitis Dizziness of unknown etiology Chronic constipation Hx of schizophrenia Panic attacks PTSD (post-traumatic stress disorder) Dyspareunia Pyelonephritis Ingrown toenail Iron deficiency anemia Major depression, recurrent Anxiety Insomnia Tremor Orthostatic hypotension Incisional hernia without obstruction or gangrene Avascular necrosis of femoral head Bilateral carpal tunnel syndrome Peroneal neuropathy Lumbar degenerative disc disease Vitamin D deficiency GERD (gastroesophageal reflux disease) Migraine Hyperlipidemia Family History Family History Father Liver cancer Mother Breast cancer Sister Lung cancer Other Mental health problem Family history of problems with anesthesia: No Surgical History Surgical History History of left nephrectomy (~1999) History of colonoscopy History of surgery Hx of cystoscopy History of bilateral breast reduction surgery History of hysterectomy History of cholecystectomy History of endoscopy (~06/2016) History of bladder repair surgery (~03/2015) S/P cystoscopy (~07/30/12) S/P panniculectomy History of hernia repair (~03/29/10) History of bladder surgery (~10/2009) History of gastric bypass (~2008) History of incisional hernia repair (~1999) Hx of umbilical hernia repair (~1999) H/O left nephrectomy S/P laparoscopic sleeve gastrectomy History of Problems with Anesthesia: No Social History Social History (Updated 04/16/24 @ 13:41 by Pebbles Munguia) Household Members: Family Housing: House Do you presently have visiting nurse or other home services: No Alcohol intake: never Patient Tobacco Use Status: Never used Tobacco e-Cigarette/Vaping Use: Never Used Second Hand Smoke Exposure: No Advance Directives: No Advance Directives Information Provided: Yes Advance Directives Date on File: 07/12/21 service: No Current occupational status: disabled Sexual orientation: Straight/Heterosexual Gender identity: Female Cognitive needs: No Hearing needs: No Vision needs: Yes Meds Allergies Allergy/AdvReac Type Severity Reaction Status Date / Time atorvastatin AdvReac Intermediate other Verified 04/01/24 12:25 acetaminophen AdvReac Unknown Unknown Verified 04/01/24 12:25 Active Medications: Current Medications Lactated Ringer's (Lr) 1,000 mls @ 50 mls/hr IVCONT .Q20H JYOTHI Home Medications ?Medication ?Instructions ?Recorded ?Confirmed ?Last Taken ?Type potassium citrate 5 mEq (540 mg) 5 meq PO DAILY 06/13/23 04/16/24 01/21/24 History tablet,extended release lurasidone 40 mg tablet 40 mg PO DAILY 03/11/24 04/16/24 Unknown History naproxen 500 mg tablet 500 mg PO DAILY 03/11/24 04/16/24 Unknown History sumatriptan succinate 50 mg tablet 50 mg PO DAILY 03/11/24 04/16/24 Unknown History hydrocortisone 2.5 % topical cream 1 appl NV BID-QID PRN yes 03/18/24 04/16/24 Unknown History with perineal applicator triamcinolone acetonide 0.1 % 1 appl topical DAILY 03/18/24 04/16/24 Unknown History topical cream Exam Height,Weight and Vital Signs: Height 5 ft 2 in Weight 74.843 kg Last Vital Signs Temp 96.8 F 04/17/24 06:42 Pulse 69 04/17/24 06:42 Resp 16 04/17/24 06:42 BP 126/75 04/17/24 06:42 Pulse Ox 98 04/17/24 06:42 O2 Del Method Room Air 04/17/24 06:42 Airway Mallampati Class: II TM Dist: >3cm Neck ROM: Full Heart: rrr Lungs: cta Assessment and Plan Assessment Anesthesia Assessment: Anesthesia Plan Discussed and Chart Reviewed Final Anesthetic Review Family History of Problems with Anesthesia: No History of Problems with Anesthesia: No NPO: Yes ASA Class: III Final Preanesthetic Review: No Changes in Pt Med Stat, Meds/Allgs Chart Reviewed and Consent Obtained/Reviewed Patient Risk: Intermediate Procedure Risk: Intermediate Anesthetic Plan Anesthetic Plan: GA Disposition: Standard PACU
[2024-04-17] MEDS: Lactated Ringers 1,000 ML 50 ML IVCONT (07:05)
--- NOTE | 2024-04-17 07:54 | MHC.SHP ---
Pre-Procedural Eval Section A - 24 Hr Update-Section A only Date of Service: 04/17/24 The patient is an INPATIENT: No Changes since office visit: No Cold of Flu in the past 2 weeks, No New Medical Problems, No Changes in Medication and No Patient answered all questions The patient has been examined within 24 hours of the surgical procedure. The History & Physical has been completed within 30 days and I have reviewed it.: Yes Section B - Complete if H&P > 30 days Chief Complaint: Major depressive disorder, recurrent, severe with Details of Present Illness: depression is much better no si no fascial dyskinesia noted Relevant Family History (Specify if Yes): No Relevant Social History: None Present Medications: None Medical History: Significant History (hx of pulm embolism) Allergies: Allergies Allergy/AdvReac Type Severity Reaction Status Date / Time atorvastatin AdvReac Intermediate other Verified 04/01/24 12:25 acetaminophen AdvReac Unknown Unknown Verified 04/01/24 12:25 Review of Systems Sugical H&P ROS: Negative: Cardiovascular, Respiratory, Neurological and Hem-Onc and Yes, Specify: Constitution (fatigue) and Psychiatric (some dep sx anxiety) Exam Surgical H&P Exam: Normal: Heart, Normal: Lungs, Normal: Extremities and Normal: Neurological Exam Comment: alert no confusion noted interpeter used Plan Diagnosis/Plan: Unchanged I have reviewed the history and physical and performed a pertinent physical examination on my patient. No changes have occurred unless specified. Time Spent With Patient Time: Total time managing care of this patient today ____ minutes.
[2024-04-17 08:18] VITALS: BP 120/74; PULSE 86; RESP 15; TEMP 36.5; O2SAT 91
[2024-04-17 08:23] VITALS: BP 127/88; PULSE 86; RESP 14; O2SAT 95
--- NOTE | 2024-04-17 08:24 | HO.ECTPROC ---
ECT Procedure Note Diagnosis/Treatment Date of Service: 04/17/24 Diagnosis: Major Depressive Disorder and Other (ptsd) Current Treatment Number: 10 Treatment: Maintenance Interval Clinical Notes: pt has been fairly stable with ect last ect 2 weeks ago denies si no gross psychotic sx feels ect helpful tolerated tx well next ect approx 3 wks Time: Total time managing care of this patient today ____ minutes. ECT Settings Device: THYMATRON DGx Electrode Placement: Right Unilateral Program/Pulse Width: 0.25 Energy Percent: 100 Seizure Duration By EEG (in seconds): 48 Medications Administration General Anesthetic: Etomidate (10) Muscle Relaxant: Succinylcholine (80) Ancillary Medications Anti-emetics: Zofran - Pre ECT Airway Management Airway Management: Bag Mask Ventilation Treatment Recommendations Notes: can dec succ to 60 mg per anesthesia Pt Tolerated Procedure w/o Issue: Yes
[2024-04-17 08:28] VITALS: BP 119/77; PULSE 85; RESP 14; O2SAT 95
[2024-04-17 08:33] VITALS: BP 117/69; PULSE 95; RESP 16; O2SAT 95
[2024-04-17 08:47] VITALS: BP 124/72; PULSE 92; RESP 16; TEMP 36.5; O2SAT 95
== END 2024-04-17 09:10 | disposition home or self-care (01) ==
PROVIDERS: PCP Internal Medicine; Visit Provider Psychiatry & Neurology Psychiatry
PROC: (CPT 90870; principal; 2024-04-17 08:00)
DX: F33.2 Major depressive disorder, recurrent severe without psychotic features (principal); F43.10 Post-traumatic stress disorder, unspecified; F41.9 Anxiety disorder, unspecified; I95.1 Orthostatic hypotension; J45.909 Unspecified asthma, uncomplicated; G47.00 Insomnia, unspecified; N18.30 Chronic kidney disease, stage 3 unspecified; Z90.5 Acquired absence of kidney; E78.00 Pure hypercholesterolemia, unspecified; R25.9 Unspecified abnormal involuntary movements; D50.9 Iron deficiency anemia, unspecified; Z79.01 Long term (current) use of anticoagulants; Z79.899 Other long term (current) drug therapy; Z99.89 Dependence on other enabling machines and devices; Z98.84 Bariatric surgery status; Z98.890 Other specified postprocedural states; Z88.8 Allergy status to other drugs, medicaments and biological substances
CPT/HCPCS: 90870; J0330; J2405

== ENCOUNTER → 2024-04-17 05:42 | Outpatient (BNV) | payer OTHER, SELFPAY | PROVIDERS: PCP Internal Medicine; Visit Provider Psychiatry & Neurology Psychiatry | DX: F33.3 Major depressive disorder, recurrent, severe with psychotic symptoms (principal) | CPT/HCPCS: 90870 ==

== ENCOUNTER 2024-04-18 14:07 | Outpatient (AMB) | payer OTHER, SELFPAY ==
[2024-04-18 14:09] VITALS: BP 115/62; PULSE 92; O2SAT 97; BMI 28.2
--- NOTE | 2024-04-18 14:09 | A.OFFVIS_ITS ---
Vital Signs 04/18/24 14:09 Height 5 ft 3 in Weight 159 lb 4 oz BMI 28.2 BP 115/62 Blood Pressure Location Rt brachial Position Sitting Pulse 92 Pulse Source Pulse Oximeter Pulse Oximetry (%) 97 Oxygen Delivery Method Room Air Intake Visit Reasons: Back Pain/siddharth from 04/17 Allergies atorvastatin Adverse Reaction (Intermediate, Verified 04/18/24 14:14) other acetaminophen Adverse Reaction (Unknown, Verified 04/18/24 14:14) Unknown HPI Comments Details: Xenia is back in my office because insurance denied her bilateral therapeutic sacroiliac joint injection based on the fact that she did not have physical therapy. Her history is very complicated as described below. Nevertheless I will schedule her for physical therapy. I recommended her to continue home exercise program at least 3 times a day at least 15 minutes at a time. We will return to the issue of scheduling her for bilateral therapeutic sacroiliac joint injection as it was planned before once we establish good physical therapy exercise routine. Prior: She was scheduled in October 2023 to go for bilateral therapeutic sacroiliac joint injection. Unfortunately she was lost for the follow-up and Marbin came for the injection. She reports today that her memory is not very good and she does not recall why she was not able to go for the injection. We requested her to provide us the telephone number of her spouse. This way we will know more details about why she is not showing up for the injection. She was under care of Joanna with sacroiliac joint problem and after that she was under my care, she received therapeutic sacroiliac joint injection on the right which gave her 50% pain improvement in 2021. After that she received diagnostic bilateral sacroiliac joint injection and unfortunately she was lost for the follow-up. Due to mental health crisis she was admitted to psychiatric facility and was not able to receive any injections. Now she is back requesting me to perform therapeutic sacroiliac joint injection. [facility] Medical History Chronic kidney disease, stage III (moderate) Obesity (BMI 30-39.9) Renal cyst Diverticulosis Tubular adenoma Asthma Spondylosis of lumbar spine Sacroiliitis Dizziness of unknown etiology Chronic constipation Hx of schizophrenia Panic attacks PTSD (post-traumatic stress disorder) Dyspareunia Pyelonephritis Ingrown toenail Iron deficiency anemia Major depression, recurrent Anxiety Insomnia Tremor Orthostatic hypotension Incisional hernia without obstruction or gangrene Avascular necrosis of femoral head Bilateral carpal tunnel syndrome Peroneal neuropathy Lumbar degenerative disc disease Vitamin D deficiency GERD (gastroesophageal reflux disease) Migraine Hyperlipidemia Surgical History History of left nephrectomy (~1999) History of colonoscopy History of surgery Hx of cystoscopy History of bilateral breast reduction surgery History of hysterectomy History of cholecystectomy History of endoscopy (~06/2016) History of bladder repair surgery (~03/2015) S/P cystoscopy (~07/30/12) S/P panniculectomy History of hernia repair (~03/29/10) History of bladder surgery (~10/2009) History of gastric bypass (~2008) History of incisional hernia repair (~1999) Hx of umbilical hernia repair (~1999) H/O left nephrectomy S/P laparoscopic sleeve gastrectomy Family History Father Liver cancer Mother Breast cancer Sister Lung cancer Other Mental health problem Social History (Updated 04/16/24 @ 13:41 by Pebbles Munguia) Household Members: Family Housing: House Do you presently have visiting nurse or other home services: No Alcohol intake: never Patient Tobacco Use Status: Never used Tobacco e-Cigarette/Vaping Use: Never Used Second Hand Smoke Exposure: No Advance Directives Date on File: 07/12/21 service: No Current occupational status: disabled Sexual orientation: Straight/Heterosexual Gender identity: Female Cognitive needs: No Hearing needs: No Vision needs: Yes Female Reproductive History Menstrual Age of Menarche: 13 Review of Systems Const All systems reviewed & are unremarkable except as noted in HPI and below Physical Exam Vital Signs: Last Vital Signs Pulse 92 04/18/24 14:09 BP 115/62 04/18/24 14:09 Pulse Ox 97 04/18/24 14:09 Oxygen Delivery Method Room Air 04/18/24 14:09 BMI result Body Mass Index 28.2 Const General: comfortable, no acute distress, well developed, alert and awake Eyes Pupils: Equal, round and reactive pupils present EOM: EOMs intact bilaterally Chest Chest palpation & inspection: normal inspection of the chest Resp Effort & Inspection: normal respiratory effort, able to speak in complete sentences, normal respiratory pattern, no audible wheezes and no cough Cardio Jugular venous distension: no JVD Back/Spine/Pelvis Other: ? SACROILIAC JOINT?tenderness to palpation right SIJ, + glenny, Delphine finger, Gaenslen's,Compression/distraction positive on right.? INSPECTION:?normal curvature of spine.? RANGE OF MOTION?decreased side bending on right.? PALPATION:?no vertebral spine tenderness,sacroiliac joint tenderness on right.? STRAIGHT LEG RAISING TEST:?positive at 45 degrees on right in L4/5 distribution.? MOTOR SYSTEM:?5/5 bilateral lower extremities.? SENSORY EXAM:?normal to light touch and pinprick in C5-T1 and L2-S1,no dysethesias, reported paresthesias right L4/5 distribution.? REFLEXES:?symmetrical 2+.? GAIT:?favoring affected side.? Neuro Cranial nerves: Yes Equal, round and reactive pupils present Assessment & Plan Assessment & Plan (1) Sacroiliitis: Code(s): M46.1 - Sacroiliitis, not elsewhere classified Category: Medical (2) Spondylosis of lumbar spine: Code(s): M47.816 - Spondylosis without myelopathy or radiculopathy, lumbar region Category: Medical (3) Sacroiliac joint dysfunction of both sides: Code(s): M53.3 - Sacrococcygeal disorders, not elsewhere classified Category: Medical Plan The plan of care as above. I will schedule again this patient for bilateral therapeutic sacroiliac joint injection under sedation once we establish good relationship and good routine with physical therapy and home exercise program.. Orders: Orders PT Evaluation and Treatment Today M46.1 - Sacroiliitis, not elsewhere classified, M53.3 - Sacrococcygeal disorders, not elsewhere classified Patient Instructions: lead operator Earlene Kebede who is certified raker buffing wheel helped us to maintain this conversation in [place]. Coding Level of Care Code Est Pt Level 3 (66846) Diagnoses Sacroiliitis M46.1 Spondylosis of lumbar spine M47.816 Sacroiliac joint dysfunction of both sides M53.3
== END 2024-04-18 14:34 | disposition home or self-care (01) ==
LOC: HO.PMC 14:07
PROVIDERS: PCP Internal Medicine; Visit Provider Anesthesiology
DX: M46.1 Sacroiliitis, not elsewhere classified (principal); M47.816 Spondylosis without myelopathy or radiculopathy, lumbar region; M53.3 Sacrococcygeal disorders, not elsewhere classified
CPT/HCPCS: 99213

== ENCOUNTER → 2024-04-18 14:07 | Outpatient (BNVA) | payer OTHER, SELFPAY | PROVIDERS: PCP Internal Medicine; Visit Provider Anesthesiology | DX: M46.1 Sacroiliitis, not elsewhere classified (principal); M47.816 Spondylosis without myelopathy or radiculopathy, lumbar region; M53.3 Sacrococcygeal disorders, not elsewhere classified | CPT/HCPCS: 99212 ==

== ENCOUNTER 2024-04-23 09:52 | Outpatient (AMB) | payer OTHER, SELFPAY ==
--- NOTE | 2024-04-23 09:58 | MHC.OFFVIS ---
Vital Signs 04/23/24 10:06 Height 5 ft 3 in Weight 159 lb 4.015 oz BMI 28.2 Intake Visit Reasons: Discuss Abd CT Intake Note: This patient presents for a follow-up for abdominal pain. Pt c/o; reports abdominal pain. Bowling Ball Assembler Required: Yes Bowling Ball Assembler Services: Bowling Ball Assembler Present Bowling Ball Assembler Name: JuanitaSade Information Interpreted: non-clinical & clinical Accompanied by: Self / Same As Patient Allergies atorvastatin Adverse Reaction (Intermediate, Verified 04/23/24 10:07) other acetaminophen Adverse Reaction (Unknown, Verified 04/23/24 10:07) Unknown HPI Comments Details: Patient presents because of persistent symptoms that are umbilicus. She feels that she has a lump or mass there. She is otherwise tolerating a diet. She is having regular bowel habits. She is no longer having right flank symptoms although her CT scan demonstrated a right renal process. Patient states that she is 2 months status post pulmonary embolism. She is current on anticoagulation for at least total of 6 months if not longer. Patient also has had ECTs in the past. [facility] Medical History Chronic kidney disease, stage III (moderate) Obesity (BMI 30-39.9) Renal cyst Diverticulosis Tubular adenoma Asthma Spondylosis of lumbar spine Sacroiliitis Dizziness of unknown etiology Chronic constipation Hx of schizophrenia Panic attacks PTSD (post-traumatic stress disorder) Dyspareunia Pyelonephritis Ingrown toenail Iron deficiency anemia Major depression, recurrent Anxiety Insomnia Tremor Orthostatic hypotension Incisional hernia without obstruction or gangrene Avascular necrosis of femoral head Bilateral carpal tunnel syndrome Peroneal neuropathy Lumbar degenerative disc disease Vitamin D deficiency GERD (gastroesophageal reflux disease) Migraine Hyperlipidemia Surgical History History of left nephrectomy (~1999) History of colonoscopy History of surgery Hx of cystoscopy History of bilateral breast reduction surgery History of hysterectomy History of cholecystectomy History of endoscopy (~06/2016) History of bladder repair surgery (~03/2015) S/P cystoscopy (~07/30/12) S/P panniculectomy History of hernia repair (~03/29/10) History of bladder surgery (~10/2009) History of gastric bypass (~2008) History of incisional hernia repair (~1999) Hx of umbilical hernia repair (~1999) H/O left nephrectomy S/P laparoscopic sleeve gastrectomy Family History Father Liver cancer Mother Breast cancer Sister Lung cancer Other Mental health problem Social History Household Members: Family Housing: House Do you presently have visiting nurse or other home services: No Alcohol intake: never Patient Tobacco Use Status: Never used Tobacco e-Cigarette/Vaping Use: Never Used Second Hand Smoke Exposure: No Advance Directives Date on File: 07/12/21 service: No Current occupational status: disabled Sexual orientation: Straight/Heterosexual Gender identity: Female Cognitive needs: No Hearing needs: No Vision needs: Yes Female Reproductive History Menstrual Age of Menarche: 13 Physical Exam Vital Signs: BMI result Body Mass Index 28.2 GI Other: Patient was examined both supine and standing with Valsalva. A roughly 2 cm irreducible umbilical hernia was demonstrated. Abdomen is otherwise corpulent, soft, benign Assessment & Plan Assessment & Plan (1) Umbilical hernia: Code(s): K42.9 - Umbilical hernia without obstruction or gangrene Category: Surgical Plan Because the patient is currently on her 2nd month of a possible six-month duration of anticoagulation/Eliquis for a DVT/PE, the current plan is to see her in 4 months' time and address her hernia repair at that visit. During the interim, should this hernia become profoundly more symptomatic or large, she is been instructed to contact the office. All questions answered. Patient will see me as directed or p.r.n. as noted above. In the meantime, patient was recommended to contact her medical doctor regarding urologic consult for incidentally found right renal process Coding Level of Care Code Est Pt Level 4 (23804) Diagnoses Umbilical hernia K42.9
[2024-04-23 10:06] VITALS: BMI 28.2
== END 2024-04-23 10:07 | disposition home or self-care (01) ==
PROVIDERS: PCP Internal Medicine; Visit Provider Surgery
DX: K42.9 Umbilical hernia without obstruction or gangrene (principal)
CPT/HCPCS: 99214

== ENCOUNTER → 2024-04-23 09:52 | Outpatient (BNVA) | payer OTHER, SELFPAY | PROVIDERS: PCP Internal Medicine; Visit Provider Surgery | DX: K42.9 Umbilical hernia without obstruction or gangrene (principal) | CPT/HCPCS: 99212 ==

== ENCOUNTER 2024-04-29 08:20 | Outpatient (REF) | payer OTHER, SELFPAY ==
--- NOTE | ~2024-04-29 | US_ITS ---
EXAMINATION: US THYROID CLINICAL INFORMATION: Nontoxic multinodular goiter. COMPARISON: CTA neck 01/22/2024. TECHNIQUE: Linear transducer grayscale and color Doppler examination with attention to the region of the thyroid. FINDINGS: SIZE: Measurements of the thyroid lobes and nodules are given in sagittal, anteroposterior and transverse dimensions respectively. Right Thyroid Lobe: 4.5 x 1.4 x 1.7 cm, volume 5.6 mL. Parenchyma: The gland echotexture is heterogeneous. Thyroid vascularity is increased. Left Thyroid Lobe: 4.2 x 1.5 x 1.8 cm, volume 6.2 mL. Parenchyma: The gland echotexture is heterogeneous. Thyroid vascularity is increased. Isthmus: 0.2 cm in maximum AP dimension. Estimated total number of nodules greater than or equal to 1 cm: 5. [employer] nodules are described as follows: 1. Location: Right upper pole. Size: 1.5 x 0.8 x 1.2 cm, volume 0.73 mL. Nodule characteristics: Composition: Solid/almost completely solid (2). Echogenicity: Isoechoic (1). Shape: Not taller than wide (0). Margins: Smooth (0). Echogenic Foci: None (0). ACR TI-RADS total points: 3 ACR TI-RADS category: 3 2. Location: Right upper pole. Size: 1.3 x 0.6 x 1.2 cm, volume 0.48 mL. Nodule characteristics: Composition: Solid/almost completely solid (2). Echogenicity: Isoechoic (1). Shape: Not taller than wide (0). Margins: Smooth (0). Echogenic Foci: None (0). ACR TI-RADS total points: 3 ACR TI-RADS category: 3 3. Location: Right lower pole. Size: 0.9 x 0.4 x 0.9 cm, volume 0.20 mL. Nodule characteristics: Composition: Solid (2). Echogenicity: Isoechoic (1). Shape: Not taller than wide (0). Margins: Smooth (0). Echogenic Foci: Punctate echogenic foci (3). ACR TI-RADS total points: 6 ACR TI-RADS category: 4 4. Location: Left upper pole. Size: 2.2 x 1.0 x 1.6 cm, volume 1.9 mL. Nodule characteristics: Composition: Mixed cystic and solid (1). Echogenicity: Very hypoechoic (3). Shape: Not taller than wide (0). Margins: Smooth (0). Echogenic Foci: Macrocalcifications (1). ACR TI-RADS total points: 5 ACR TI-RADS category: 4 5. Location: Left lower pole. Size: 1.7 x 1.4 x 1.6 cm, volume 2.0 mL. Nodule characteristics: Composition: Solid (2). Echogenicity: Isoechoic (1). Shape: Not taller than wide (0). Margins: Smooth (0). Echogenic Foci: Punctate echogenic foci (3). ACR TI-RADS total points: 6 ACR TI-RADS category: 4 NODES: No lymphadenopathy is seen in the tissue surrounding the thyroid gland. US/US thyroid IMPRESSION: 2.2 cm LEFT upper TR 4 thyroid nodule and 1.7 cm LEFT lower TR 4 thyroid nodule meet criteria for biopsy. Fine-needle aspiration recommended. This study was presented to me on May 06, 2023 for interpretation. PSA staff will provide results to referring provider at this time. ACR TI-RADS RECOMMENDATION REFERENCE: Ultrasound-guided fine-needle aspiration, followup ultrasound, no further follow up. * TR1 (0 point) and TR2 (2 points): No FNA or follow up. * TR3 (3 points): FNA if more than or equal to 2.5 cm in maximum dimension, followup ultrasound in 1, 3 and 5 years if 1.5 to 2.4 cm in maximum dimension. * TR4 (4-6 points): FNA if more than or equal to 1.5 cm in maximum dimension, followup ultrasound in 1, 2, 3 and 5 years if 1 to 1.4 cm in maximum dimension. * TR5 (more than or equal to 7 points): FNA if more than or equal to 1 cm in maximum dimension, followup ultrasound every year for 5 years if 0.5 to 0.9 cm in maximum dimension. * TR3, TR4 or TR5 nodules that are below the size threshold for followup receive no follow up. Electronically signed by: Suad Marmolejo MD 05/06/2024 08:10 AM [facility] [place]
--- NOTE | ~2024-04-29 | US_ITS ---
EXAMINATION: US ABDOMEN LIMITED WITH LIVER ELASTOGRAPHY CLINICAL INFORMATION: Fatty liver COMPARISON: Ultrasound abdomen 02/26/2024 TECHNIQUE: Real-time imaging of the abdominal viscera. Noninvasive ultrasound liver fibrosis assessment is performed using [place] ElastPQ point quantification shear wave elastography (pSWE) with a 5 MHz transducer. Multiple elastography samples are obtained. FINDINGS: PANCREAS: The visualized pancreatic head and body are normal in appearance. The remainder of the pancreas is obscured from visualization by the overlying bowel gas. LIVER: The liver demonstrates normal size, contour and echogenicity. There is a hyperechoic area in the right hepatic lobe measuring 1.1 x 0.94 x 1.1 cm most suspicious for an hemangioma. The right lobe measures 12.4 cm in length. The left lobe measures 6.5 cm in length. Normal hepatopedal flow seen in the middle portal vein on Doppler exam Shear wave elastography provides a median stiffness of 1.27 m/s (reference: normal median stiffness is 0.81 - 1.22 m/s). The IQR/median stiffness to assess sampling precision is 0.13 (reference: optimal IQR/median stiffness is under 0.3). GALLBLADDER: The gallbladder has been surgically removed. COMMON BILE DUCT: Normal in caliber measuring 0.40 cm in diameter. RIGHT KIDNEY: No hydronephrosis. There is an anechoic cyst simple cyst upper pole measuring 4.8 x 4.7 x 4.6 cm. There is a complex cyst mid pole measuring 3.9 x 2.3 x 4.1 cm.. The kidney measures 15.2 cm in maximum dimension. FREE FLUID: None seen. US/US abdomen parham w elastography IMPRESSION: 1. Likely hemangioma unchanged to previous ultrasound 02/05/2024. It was not well-visualized on 02/26/2024 ultrasound. Simple cyst upper pole and a complex cyst mid pole right kidney. 2. Elastography: Median liver stiffness measures 1.27 m/s corresponding to high probability normal Electronically signed by: Barry Stephenson MD 05/07/2024 07:59 AM EST
== END 2024-04-29 08:21 | disposition home or self-care (01) ==
LOC: HO.US 08:20
PROVIDERS: PCP Internal Medicine; Referring Provider Student in an Organized Health Care Education/Training Program; Visit Provider Nurse Practitioner Family
DX: E04.2 Nontoxic multinodular goiter (principal); K76.0 Fatty (change of) liver, not elsewhere classified
CPT/HCPCS: 76536; 76705; 76981

== ENCOUNTER → 2024-04-29 08:21 | Outpatient (BNV) | payer OTHER, SELFPAY | PROVIDERS: PCP Internal Medicine; Referring Provider Student in an Organized Health Care Education/Training Program; Visit Provider Radiology Diagnostic Radiology | DX: N28.1 Cyst of kidney, acquired (principal); K76.0 Fatty (change of) liver, not elsewhere classified | CPT/HCPCS: 76705; 76981 ==

== ENCOUNTER 2024-04-30 12:37 | Outpatient (AMB) | payer OTHER, SELFPAY ==
--- NOTE | 2024-04-30 13:07 | A.OFFVIS_ITS ---
Vital Signs 04/30/24 13:08 Height 5 ft 3 in Weight 163 lb 2.273 oz BMI 28.9 BP 112/72 Blood Pressure Location Rt brachial Position Sitting Pulse 93 Pulse Source Pulse Oximeter Intake Visit Reasons: Nontoxic single thyroid nodule Intake Note: Patient present today for a follow-up on Nontoxic single thyroid nodule office visit. Hand Trucker Required: Yes Hand Trucker Language: Director Of Rehabilitation Services: Hand Trucker Present Hand Trucker Name: ADONIS Merrill/YONIS KUHN Information Interpreted: non-clinical & clinical Accompanied by: Self / Same As Patient Allergies atorvastatin Adverse Reaction (Intermediate, Verified 04/30/24 13:11) other acetaminophen Adverse Reaction (Unknown, Verified 04/30/24 13:11) Unknown Medication List - Last Reconciled 04/30/24 by Luna Mejia MD albuterol sulfate 90 mcg/actuation (Ventolin HFA) 2 puffs inhalation Q6H PRN 30 days apixaban (Eliquis) 5 mg PO BID apixaban (Eliquis) 5 mg PO BID 30 days bisacodyl (Dulcolax (bisacodyl)) 10 mg (2 x 5 mg) PO BEDTIME blood pressure monitor As directed czpeicpsak-hrriwxeeqgagx-[id number] 50-325-40 mg 2 tabs PO Q6H PRN 30 days cariprazine (Vraylar) 4.5 mg (3 x 1.5 mg) PO DAILY 30 days cholecalciferol (vitamin D3) (Vitamin D3) 25 mcg PO DAILY 90 days [CPAP device and all related supplies As directed] cyanocobalamin (vitamin B-12) 500 mcg PO DAILY 30 days diphenhydramine HCl (Banophen) 25 mg PO TID PRN 30 days docusate sodium 100 mg PO DAILY estradiol 0.01%(0.1mg/gram) vaginally 3 times a week; pea sized amount to urethra 3 times a week 90 days ferrous sulfate 325 mg PO DAILY 90 days gabapentin 800 mg PO TID 30 days hydrocortisone 2.5% 1 appl MD BID-QID PRN lorazepam 1 mg PO BID PRN 30 days lurasidone 40 mg PO DAILY meclizine 25 mg PO TID PRN 30 days melatonin 10 mg (2 x 5 mg) PO BEDTIME PRN 30 days midodrine 10 mg PO TID 30 days mometasone 0.1% 1 appl topical DAILY PRN naproxen 500 mg PO DAILY pantoprazole 40 mg PO DAILY@0630 30 days potassium citrate ER 5 mEq PO DAILY risperidone 2 mg PO BID 30 days rosuvastatin 5 mg PO DAILY 30 days sumatriptan succinate 50 mg PO DAILY topiramate 100 mg PO DAILY 30 days tramadol 100 mg (2 x 50 mg) PO Q8H PRN 30 days triamcinolone acetonide 0.1% 1 appl topical DAILY HPI Comments Details: 53-year-old female coming in today for follow up of thyroid nodules.Otherwise medical history significant for CKD stage 3, , hyperlipidemia, hx nephrectomy, hx gastric bypass around 2018, migraines, GERD, MIGUEL on CPAP anxiety, depression, schizophrenia. Seen today with parts interpreter. HPI Patient had a CT chest February 01, 2024 which pointed towards an enlarged left lobe of the thyroid. Patient had a head and neck CTA 02/04/2024 due to concerns for stroke, which incidentally showed multinodular thyroid gland. During hospitalisiztion diagnosed with PE , on elequis. Interval history 04/29/2024: Ultrasound of the thyroid, report not yet finalized but I reviewed the images myself which show a right superior 1.5 cm nodule, solid, hypoechoic, with a few cystic spaces, with some punctate echogenic foci, not taller than wide, this is a TR 5 nodule, per SYLVIA guidelines still high suspicion nodule with greater than 50% chance of malignancy. Another right superior 1.3 cm spongiform appearance nodule. Another right lower pole 0.9 cm solid, isoechoic nodule well-circumscribed with no punctate echogenic foci, this is a TR 4 nodule. Another right lower pole 0.6 cm thyroid nodule with spongiform appearance. On the left side is a left cystic lesion dominantly with a very minute solid component, 2.2 cm in size. A left lower pole 1.7 cm solid, hypoechoic nodule which is not taller than wide, well-circumscribed, has punctate echogenic foci, this is a TR 5 nodule. The right superior 1.5 cm TR 5 nodule and the left lower pole 1.7 cm TR 5 nodule both meet criteria for FNA. No diarrhea, reports constipation. Weight stable. Reports intermittent palpitaions. Patient currently denies heat or cold intolerance, hair loss, , mood changes, low energy, changes in appearance of eyes or vision changes, tremors, increased diaphoresis or dry skin. ? Patient denies any difficulty swallowing, pain on swallowing or voice changes or difficulty breathing. Does complain of mild pressure sensation on neck when she lays down flat. Patient denies any history of childhood neck radiation. Denies having ever used lithium, amiodarone or biotin supplements. Patient denies any family history of thyroid cancer or thyroid disease. Physical exam General: sitting comfortably in no acute distress HEENT: normocephalic/atraumatic, moist oral mucosa Neck: supple, palpable B/l 1-2 cm nodules Cardiac: normal heart sounds Pulm: normal breath sounds B/L, no added breath sounds Abd: not distended, no tenderness Extremities: no edema, no signs of myxedema Laboratory Tests 02/20/24 03/18/24 16:33 12:[address] angio head neck stroke January 2024 CLINICAL INFORMATION: Left-sided weakness. COMPARISON: CT head 02/04/2024. CT angiogram head and neck 01/22/2024. TECHNIQUE: Solder Cream Maker images were obtained. A CT angiogram of the head and neck was performed in the arterial phase after the intravenous administration of 70 mL Omnipaque 350. Pre and delayed postcontrast images of the head were also obtained. 3D images were processed on an independent workstation under concurrent supervision. Arterial stenoses are measured in accordance with NASCET criteria or similar method if applicable. This CT examination was performed using dose optimization techniques as appropriate, including one or more of the following: Automated exposure control, iterative reconstruction, and adjustment of technique factors (mA and/or kVp) according to patient size (this includes techniques or standardized protocols for targeted exams where dose is matched to indication/reason for exam). Fleischner Society criteria for the followup of incidental pulmonary nodules was implemented if appropriate. Total exam dose-length product 1408 mGy-cm FINDINGS: Head: There is a tiny developmental venous anomaly traversing the left frontal lobe. Postcontrast images reveal no abnormal intracranial mass or enhancement. There is no intracranial mass effect or midline shift. Lateral and third ventricles are normal. No hydrocephalus. Mckeon-white matter differentiation is preserved and there is no evidence of acute territorial infarct. The calvarium and skull base are intact. No mastoid or middle ear effusion. No active paranasal sinus disease. CT angiogram neck: There is an aberrant right subclavian artery. Origins of the major aortic branches are otherwise patent. Common carotid arteries are normal and the carotid bifurcations are normal. No stenosis of the extracranial internal carotid arteries. The cervical segments of the vertebral arteries are widely patent. CT angiogram head: The intracranial internal carotid arteries are normal. The intradural vertebral artery segments and basilar artery are normal. Anterior, middle, and posterior cerebral artery complexes are normal. No intracranial large vessel occlusion. No identifiable aneurysm or high flow vascular lesion. Other: There is a multinodular thyroid gland. Soft tissues of the neck are otherwise unremarkable. Grossly no pathologically enlarged cervical lymph nodes. Visualized lung apices are clear. No acute osseous finding. CT/CT angio head neck stroke IMPRESSION: Unremarkable examination in that there is no stenosis of the cervical carotid or vertebral arteries. No intracranial large vessel occlusion. No evidence of acute territorial infarct or hemorrhage. No abnormal intracranial mass or enhancement. This critical result was discussed with Dr. Obregon at 3:02 PM on 02/04/2024 and it was ascertained that the content and urgency of the report was understood at the time of direct communication. Electronically signed by: Vincenzo Brizuela MD 02/04/2024 03:[address] ANGIOGRAM OF THE CHEST WITH AND WITHOUT CONTRAST (CT PULMONARY ANGIOGRAM FOR PE) January 2024 CLINICAL INFORMATION: Chest pain. COMPARISON: CT chest performed earlier at 8:53 AM. TECHNIQUE: Prior to contrast administration, noncontrast localization images were obtained. Subsequently, multidetector volumetric imaging was performed of the chest following the administration of 65 mL Omnipaque 350 intravenous contrast. No contrast reaction reported Sagittal, coronal, and MIP oblique sagittal (through the chest only) reformatted images were obtained on the CT workstation, uploaded to PACS, and reviewed. Total exam dose-length product 327 mGy-cm This CT examination was performed using dose optimization techniques as appropriate, variously including the following: *Automated exposure control *Adjustment of mA and/or kV according to patient size (this includes techniques or standardized protocols for targeted exams where dose is matched to indication/reason for exam; i.e. extremities or head) *Use of iterative reconstruction technique FINDINGS: QUALITY OF STUDY/CONTRAST BOLUS: Suboptimal. PULMONARY ARTERIES: Limited evaluation secondary to motion. Pulmonary emboli are noted in the right main pulmonary artery and segmental branches of the right lower lobe. THORACIC AORTA: Aberrant right subclavian artery. Normal caliber of the thoracic aorta. LUNG: Limited evaluation due to respiratory motion. Low lung volumes. Increased mosaic attenuation of lung parenchyma compared to earlier today. No dense consolidation. Central airways are patent. Pulmonary nodules are better visualized on the CT chest from earlier today in view of the limitations of motion of the current study, please refer to the prior examination for management recommendations. PLEURA: No pleural effusion or pneumothorax. MEDIASTINUM: Normal heart size. No pericardial effusion. No evidence of septal bowing. No mediastinal or hilar lymphadenopathy. Asymmetric enlargement of the left lobe of the thyroid along with mild heterogeneity. CHEST WALL/AXILLA: Simple fluid attenuating 0.9 cm nodule in the right breast (6:235). No axillary lymphadenopathy. UPPER ABDOMEN: Mild reflux of contrast into the hepatic veins. Partially seen postsurgical changes from gastric bypass. Cholecystectomy. OSSEOUS STRUCTURES: No acute or suspicious osseous abnormality. CT/CT angio chest PE protocol IMPRESSION: 1. Pulmonary emboli in the right main pulmonary artery and segmental branches of the right lower lobe. 2. Mild reflux of contrast into the hepatic veins that could indicate elevated right-sided heart pressures. 3. Increased mosaic attenuation of the lung parenchyma compared to earlier today which could be related with air trapping in the setting of small airways disease. 4. Pulmonary nodules are better visualized on the CT chest from earlier today in view of the limitations of motion of the current study, please refer to the prior examination for management recommendations. 5. Simple fluid attenuating 0.9 cm nodule in the right breast, possibly a cyst. Recommend correlation with recent priors dedicated breast imaging and if the patient is due further evaluation with outpatient dedicated breast imaging. 6. Asymmetric enlargement of the left lobe of the thyroid with mild heterogeneity. Recommend further evaluation with outpatient thyroid ultrasound. VTE: positive. This critical result was discussed with Dr. Simms at 02/01/2024 7:27 PM CDT and it was ascertained that the content and urgency of the report was understood at the time of direct communication. Electronically signed by: Ivory Titus MD 02/01/2024 08:27 PM EDT [facility] Medical History Chronic kidney disease, stage III (moderate) Obesity (BMI 30-39.9) Renal cyst Diverticulosis Tubular adenoma Asthma Spondylosis of lumbar spine Sacroiliitis Dizziness of unknown etiology Chronic constipation Hx of schizophrenia Panic attacks PTSD (post-traumatic stress disorder) Dyspareunia Pyelonephritis Ingrown toenail Iron deficiency anemia Major depression, recurrent Anxiety Insomnia Tremor Orthostatic hypotension Incisional hernia without obstruction or gangrene Avascular necrosis of femoral head Bilateral carpal tunnel syndrome Peroneal neuropathy Lumbar degenerative disc disease Vitamin D deficiency GERD (gastroesophageal reflux disease) Migraine Hyperlipidemia Surgical History History of left nephrectomy (~1999) History of colonoscopy History of surgery Hx of cystoscopy History of bilateral breast reduction surgery History of hysterectomy History of cholecystectomy History of endoscopy (~06/2016) History of bladder repair surgery (~03/2015) S/P cystoscopy (~07/30/12) S/P panniculectomy History of hernia repair (~03/29/10) History of bladder surgery (~10/2009) History of gastric bypass (~2008) History of incisional hernia repair (~1999) Hx of umbilical hernia repair (~1999) H/O left nephrectomy S/P laparoscopic sleeve gastrectomy Family History Father Liver cancer Mother Breast cancer Sister Lung cancer Other Mental health problem Social History Household Members: Family Housing: House Do you presently have visiting nurse or other home services: No Alcohol intake: never Patient Tobacco Use Status: Never used Tobacco e-Cigarette/Vaping Use: Never Used Second Hand Smoke Exposure: No Advance Directives Date on File: 07/12/21 service: No Current occupational status: disabled Sexual orientation: Straight/Heterosexual Gender identity: Female Cognitive needs: No Hearing needs: No Vision needs: Yes Female Reproductive History Menstrual Age of Menarche: 13 Physical Exam Vital Signs: Last Vital Signs Pulse 93 04/30/24 13:08 BP 112/72 04/30/24 13:08 BMI result Body Mass Index 28.9 Assessment & Plan Assessment & Plan (1) Multiple thyroid nodules: Code(s): E04.2 - Nontoxic multinodular goiter Category: Medical Plan: 53-year-old female with no past medical history of head or neck radiation with no family history of thyroid cancer, who is coming in today for follow up for multinodular goiter. During January 2024 she was hospitalized for PE, underwent CTA chest/neck which showed multinodular goiter. 04/29/2024: Ultrasound of the thyroid, report not yet finalized but I reviewed the images myself which show a right superior 1.5 cm nodule, solid, hypoechoic, with a few cystic spaces, with some punctate echogenic foci, not taller than wide, this is a TR 5 nodule, per SYLVIA guidelines still high suspicion nodule with greater than 50% chance of malignancy. Another right superior 1.3 cm spongiform appearance nodule. Another right lower pole 0.9 cm solid, isoechoic nodule well-circumscribed with no punctate echogenic foci, this is a TR 4 nodule. Another right lower pole 0.6 cm thyroid nodule with spongiform appearance. On the left side is a left cystic lesion dominantly with a very minute solid component, 2.2 cm in size. A left lower pole 1.7 cm solid, hypoechoic nodule which is not taller than wide, well-circumscribed, has punctate echogenic foci, this is a TR 5 nodule. The right superior 1.5 cm TR 5 nodule in the left lower pole 1.7 cm TR 5 nodule both meet criteria for FNA. I explained that it is common to have thyroid nodules. About 95% of the time these nodules are benign. However if the nodule is > 1 cm in size or suspicious on ultrasound then a fine need aspiration biopsy is recommended. We discussed that a FNAB involves 4-5 passes with a small gauge needle and material obtained is sent off for cytology.If the cytopathology is benign then the nodule will be followed annually with repeat ultrasounds. However if it is suspicious or malignant, we will need to discuss further management. Indeterminate cytology can be further investigated with repeat FNA, genetic testing or empiric lobectomy. Malignant cytology is managed with either lobectomy or total thyroidectomy. We discussed briefly that thyroid cancer is, in most patients, an indolent disease that does not affect mortality. We will arrange for FNA at next available opening and patient will follow up with me in clinic thereafter for results and further decision making. Plan: -scheduled for FNA of the right superior 1.5 cm nodule in the left lower pole 1.7 cm nodule and a follow up 2 weeks after to discuss results Plan I spent 30 minutes in reviewing the record, seeing the patient and documenting in the medical record. Orders: Orders US biopsy thyroid Today E04.2 - Nontoxic multinodular goiter Patient Instructions: We will book you for biopsy of right and left thyroid nodules and a follow up 2 weeks after to discuss results. Coding Level of Care Code Est Pt Level 4 (93758) Diagnoses Multiple thyroid nodules E04.2 Time Spent (min) 30
[2024-04-30 13:08] VITALS: BP 112/72; PULSE 93; BMI 28.9
== END 2024-04-30 13:27 | disposition home or self-care (01) ==
PROVIDERS: PCP Internal Medicine; Visit Provider Student in an Organized Health Care Education/Training Program
DX: E04.2 Nontoxic multinodular goiter (principal)
CPT/HCPCS: 99214

== ENCOUNTER → 2024-04-30 12:37 | Outpatient (BNVA) | payer OTHER, SELFPAY | PROVIDERS: PCP Internal Medicine; Visit Provider Student in an Organized Health Care Education/Training Program | DX: E04.2 Nontoxic multinodular goiter (principal) | CPT/HCPCS: 99212 ==

== ENCOUNTER 2024-05-03 14:03 | Outpatient (REF) | payer OTHER, SELFPAY | END 2024-05-03 14:04 | disposition home or self-care (01) | LOC: HO.LAB 14:03 | PROVIDERS: PCP Internal Medicine; Visit Provider Urology | DX: N39.0 Urinary tract infection, site not specified (principal); R39.9 Unspecified symptoms and signs involving the genitourinary system; N28.1 Cyst of kidney, acquired; Z90.5 Acquired absence of kidney | CPT/HCPCS: 81003; 87086; 87088; 87186; 99212 ==

== ENCOUNTER 2024-05-03 14:03 | Outpatient (AMB) | payer OTHER, SELFPAY ==
--- NOTE | 2024-05-03 14:32 | A.OFFVIS_ITS ---
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 Farm Worker Name: Don Lam Information Interpreted: non-clinical & clinical Allergies atorvastatin Adverse Reaction (Intermediate, Verified 05/03/24 14:37) other acetaminophen Adverse Reaction (Unknown, Verified 05/03/24 14:37) Unknown Medication List - Last Reconciled 05/03/24 by Mary Rocha MD albuterol sulfate 90 mcg/actuation (Ventolin HFA) 2 puffs inhalation Q6H PRN 30 days apixaban (Eliquis) 5 mg PO BID apixaban (Eliquis) 5 mg PO BID 30 days bisacodyl (Dulcolax (bisacodyl)) 10 mg (2 x 5 mg) PO BEDTIME blood pressure monitor As directed [id number]-orexlubgglixb-[id number] 50-325-40 mg 2 tabs PO Q6H PRN 30 days cariprazine (Vraylar) 4.5 mg (3 x 1.5 mg) PO DAILY 30 days cholecalciferol (vitamin D3) (Vitamin D3) 25 mcg PO DAILY 90 days ciprofloxacin HCl 500 mg PO BID [CPAP device and all related supplies As directed] cyanocobalamin (vitamin B-12) 500 mcg PO DAILY 30 days diphenhydramine HCl (Banophen) 25 mg PO TID PRN 30 days docusate sodium 100 mg PO DAILY estradiol 0.01%(0.1mg/gram) vaginally 3 times a week; pea sized amount to urethra 3 times a week 90 days ferrous sulfate 325 mg PO DAILY 90 days gabapentin 800 mg PO TID 30 days hydrocortisone 2.5% 1 appl HI BID-QID PRN lorazepam 1 mg PO BID PRN 30 days lurasidone 40 mg PO DAILY meclizine 25 mg PO TID PRN 30 days melatonin 10 mg (2 x 5 mg) PO BEDTIME PRN 30 days midodrine 10 mg PO TID 30 days mometasone 0.1% 1 appl topical DAILY PRN naproxen 500 mg PO DAILY pantoprazole 40 mg PO DAILY@0630 30 days potassium citrate ER 5 mEq PO DAILY risperidone 2 mg PO BID 30 days rosuvastatin 5 mg PO DAILY 30 days sumatriptan succinate 50 mg PO DAILY topiramate 100 mg PO DAILY 30 days tramadol 100 mg (2 x 50 mg) PO Q8H PRN 30 days triamcinolone acetonide 0.1% 1 appl topical DAILY HPI Comments Details: 05/03/24--Xenia is a 3-year-old Bulgarian-speaking female with solitary right kidney. She was scheduled cystoscopy. Urine is nitrite positive so she will be empirically started on and urine sent culture. We will reschedule office cystoscopy. Reviewed urine culture from 03/19/24- for malignant cells Review of chart: 03/19/24--Xenia is a very pleasant 53-year-old Bulgarian-speaking female patient of Dr. Montelongo. She has a past medical history of obesity, renal cysts, diverticulosis, asthma, spondylosis of lumbar spine, dizziness of unknown etiology, chronic constipation, schizophrenia, stage 3 chronic kidney disease, panic attacks, PTSD, obstructive sleep apnea, major depression, anxiety, insomnia, tremors, vitamin-D deficiency, GERD, migraines, and hyperlipidemia. She presents to the office today for follow-up of her nephrolithiasis and recurrent urinary tract infections. In discussion with the patient today she reports having followed up with GI yesterday and a urine was obtained as patient reported dysuria, bladder pressure, and foul-smelling urine. Culture remains pending. We discuss treatment given patient with UTI like symptoms and recurrent urinary tract infections. In office urinalysis results reviewed with the patient today positive leukocytes. She has a longstanding history of recurrent urinary tract infections. 02/17, 04/19, 05/21, 10/20, 04/21, 05/23, 06/23, 08/21, 10/21, and 02/20, 01/22, 02/21:Positive for E coli 08/22: Positive for Klebsiella pneumoniae Microgen 01/22: E coli, Enterococcus faecalis, prevotella bivia, and gardnerella vaginalis. During last office visit approximately 2 months ago a retroperitoneal ultrasound was ordered for further assessment evaluation however these official results remain pending however, unofficial report reviewed with the patient today. Left kidney absent/removed. Right kidney with multiple cysts seen. Multiple right renal cysts. Right upper pole 5.6 cm, mid pole 3.2 cm, lower pole 3.9 cm with septations small 2-3 mm nonobstructing right renal calculus. When asked she reports at times she does not utilize Estrace cream as prescribed however we discussed importance in doing so. We discussed methenamine and vitamin-C for suppression given recurrent urinary tract infections. However, she discusses her reluctancy taking medications as she feels she takes many medications. She reports a longstanding history of constipation with hemorrhoids and followed up with GI yesterday. She does report being on a bowel regimen however does continue with constipation. We discussed at length correlation of constipation and recurrent urinary tract infections as well as lower urinary tract symptoms. She otherwise denies incontinence, nocturia, hematuria, changes to urinary stream, flank pain, fever, and or chills. PVR 0 mL. Discussed in office cystoscopy for further assessment evaluation. She otherwise offers no other issues or concerns at this time. [facility] Medical History Chronic kidney disease, stage III (moderate) Obesity (BMI 30-39.9) Renal cyst Diverticulosis Tubular adenoma Asthma Spondylosis of lumbar spine Sacroiliitis Dizziness of unknown etiology Chronic constipation Hx of schizophrenia Panic attacks PTSD (post-traumatic stress disorder) Dyspareunia Pyelonephritis Ingrown toenail Iron deficiency anemia Major depression, recurrent Anxiety Insomnia Tremor Orthostatic hypotension Incisional hernia without obstruction or gangrene Avascular necrosis of femoral head Bilateral carpal tunnel syndrome Peroneal neuropathy Lumbar degenerative disc disease Vitamin D deficiency GERD (gastroesophageal reflux disease) Migraine Hyperlipidemia Surgical History History of left nephrectomy (~1999) History of colonoscopy History of surgery Hx of cystoscopy History of bilateral breast reduction surgery History of hysterectomy History of cholecystectomy History of endoscopy (~06/2016) History of bladder repair surgery (~03/2015) S/P cystoscopy (~07/30/12) S/P panniculectomy History of hernia repair (~03/29/10) History of bladder surgery (~10/2009) History of gastric bypass (~2008) History of incisional hernia repair (~1999) Hx of umbilical hernia repair (~1999) H/O left nephrectomy S/P laparoscopic sleeve gastrectomy Family History Father Liver cancer Mother Breast cancer Sister Lung cancer Other Mental health problem Social History Household Members: Family Housing: House Do you presently have visiting nurse or other home services: No Alcohol intake: never Patient Tobacco Use Status: Never used Tobacco e-Cigarette/Vaping Use: Never Used Second Hand Smoke Exposure: No Advance Directives Date on File: 07/12/21 service: No Current occupational status: disabled Sexual orientation: Straight/Heterosexual Gender identity: Female Cognitive needs: No Hearing needs: No Vision needs: Yes Female Reproductive History Menstrual Age of Menarche: 13 Review of Systems Const All systems reviewed & are unremarkable except as noted in HPI and below Reports no additional complaints Eyes Reports no additional complaints ENT Reports no additional complaints Card Reports no additional complaints Resp Reports no additional complaints GI Reports no additional complaints Reports as per HPI Musc Reports no additional complaints Skin/Breast Reports system reviewed and no additional complaints, except as documented Neuro Reports no additional complaints Psych Reports no additional complaints Endo Reports no additional complaints Catarino/Lymph Reports no additional complaints Aller/Immun Reports no additional complaints Results AMB Urinalysis, Automated UA Leukoctes 500 Asad/uL Last Edit by TAVO Hopkins on 05/03/24 14:57 UA Nitrite Positive Last Edit by TAVO Hopkins on 05/03/24 14:57 UA Urobilinogen 0.2 mg/dL Last Edit by TAVO Hopkins on 05/03/24 14:5 7 UA Protein 15 mg/dL Last Edit by TAVO Hopkins on 05/03/24 14:57 UA pH 5.5 Last Edit by TAVO Hopkins on 05/03/24 14:57 UA Blood 200 [place]/uL Last Edit by TAVO Hopkins on 05/03/24 14:57 UA Specific [place] 1.020 Last Edit by TAVO Hopkins on 05/03/24 14: 57 UA Ketone Positive Last Edit by TAVO Hopkins on 05/03/24 14:57 UA Bilirubin 1 mg/dL Last Edit by TAVO Hopkins on 05/03/24 14:57 UA Glucose 100 mg/dL Last Edit by TAVO Hopkins on 05/03/24 14:57 Results Reviewed Results Reviewed: Laboratory Last Values Urine pH (Auto) 5.5 05/03/24 14:55 Specific [place] (Auto) 1.020 05/03/24 14:55 Urine Protein (Auto) 15 mg/dL 05/03/24 14:55 Glucose (UA)(Auto) 100 mg/dL 05/03/24 14:55 Urine Ketones (Auto) Positive 05/03/24 14:55 Urine Blood (Auto) 200 [place]/uL 05/03/24 14:55 Urine Nitrite (Auto) Positive 05/03/24 14:55 Urine Bilirubin (Auto) 1 mg/dL 05/03/24 14:55 Urine Urobilinogen (Auto) 0.2 mg/dL 05/03/24 14:55 Leukocyte Esterase (Auto) 500 Asad/uL 05/03/24 14:55 Date of Service: 06/09/23 EXAMINATION: XR ABDOMEN KUB FINDINGS: 3 mm calculus overlying the right renal lower pole shadow. No radiopaque patient overlying the left renal shadow or bilateral ureteral paths. Pelvic phleboliths are visualized. Bowel gas is nonobstructive. Left abdominal wall hernia mesh noted. Surgical clips in the bilateral upper abdomen and right lower abdomen. Suture material in the left upper abdomen. Degenerative changes of the thoracolumbar spine and bilateral acetabular joints. Soft tissues are unremarkable. IMPRESSION: 1. 3 mm calculus overlying the right renal lower pole shadow. 2. No radiopaque patient overlying the left renal shadow or bilateral ureteral paths. Assessment & Plan Assessment & Plan (1) Complicated urinary tract infection: Code(s): N39.0 - Urinary tract infection, site not specified Category: Medical (2) Recurrent urinary tract infection: Code(s): N39.0 - Urinary tract infection, site not specified Category: Medical (3) Renal cyst: Code(s): N28.1 - Cyst of kidney, acquired Category: Medical (4) Solitary kidney, acquired: Comment: (+) Hx of left nephrectomy >20 years ago due to recurrent kidney stones Code(s): Z90.5 - Acquired absence of kidney Category: Medical Plan Cipro 500 mg bid for 7 days pending urine culture. Suppressive course of the antibiotics when urine culture is reviewed. Follow-up for reschedule cystoscopy Orders: Orders AMB Urinalysis Automated Today Z13.9 - Encounter for screening, unspecified Medications: New ciprofloxacin HCl 500 mg PO BID 14 tabs 0RF Patient Instructions: The patient had an opportunity to ask questions regarding treatment plan. The patient expressed understanding and agreement with the above treatment plan. The patient is aware they should contact our office by phone for worsening of their current condition or the appearance of new symptoms. Compliance is encouraged with any medications and followup testing that is ordered. It is a privilege to be allowed the opportunity to participate in the urologic care of your patient. If you have any questions or concerns regarding treatment for the above conditions please do not hesitate to contact me. The office telephone contact is [phone]. This note is constructed in part using voice recognition software. While every effort has been made to ensure accuracy circulation supervisor errors may have been incl uded. Yours sincerely, Mary Rocha MD Coding Level of Care Code Est Pt Level 4 (12534) Diagnoses Complicated urinary tract infection N39.0 Recurrent urinary tract infection N39.0 Renal cyst N28.1 Solitary kidney, acquired Z90.5
== END 2024-05-03 15:32 | disposition home or self-care (01) ==
PROVIDERS: PCP Internal Medicine; Visit Provider Urology
DX: N39.0 Urinary tract infection, site not specified (principal); N28.1 Cyst of kidney, acquired; Z90.5 Acquired absence of kidney; Z13.9 Encounter for screening, unspecified
CPT/HCPCS: 99214

== ENCOUNTER 2024-05-06 05:39 | Day surgery (SDC) | payer OTHER, SELFPAY ==
[2024-05-06 06:39] VITALS: BP 129/77; PULSE 67; RESP 15; TEMP 36.2; O2SAT 97
[2024-05-06 06:53] VITALS: BMI 29.6
--- NOTE | 2024-05-06 07:02 | MHC.SHP ---
Pre-Procedural Eval Section A - 24 Hr Update-Section A only Date of Service: 05/06/24 The patient is an INPATIENT: No Changes since office visit: No Cold of Flu in the past 2 weeks, No New Medical Problems, No Changes in Medication and No Patient answered all questions The patient has been examined within 24 hours of the surgical procedure. The History & Physical has been completed within 30 days and I have reviewed it.: Yes Section B - Complete if H&P > 30 days Chief Complaint: depression Details of Present Illness: Stable mood, she complaints of involuntary movements of the mouth, most likely TD Relevant Family History (Specify if Yes): No Relevant Social History: None Present Medications: see Short Stay Collaborative assessment Medical History: No relevant PMH History of Previous Operations: No relevant previous surgery Allergies: Allergies Allergy/AdvReac Type Severity Reaction Status Date / Time atorvastatin AdvReac Intermediate other Verified 05/03/24 14:37 acetaminophen AdvReac Unknown Unknown Verified 05/03/24 14:37 Review of Systems Sugical H&P ROS: Negative: Constitution, Cardiovascular, Respiratory, Neurological, Psychiatric, Hem-Onc, Allergic/Immunologic, Gastrointestinal, Genitourinary, Musculoskeletal, Integumentary, Endocrine and Eyes/Ears/Nose/Throat Exam Surgical H&P Exam: Normal: HEENT, Normal: Heart, Normal: Lungs, Normal: Extremities, Normal: Abdomen, Normal: Skin and Normal: Neurological Plan Diagnosis/Plan: Unchanged I have reviewed the history and physical and performed a pertinent physical examination on my patient. No changes have occurred unless specified. Time Spent With Patient Time: Total time managing care of this patient today __20__ minutes.
--- NOTE | 2024-05-06 07:04 | HO.ANESPROP2 ---
[facility] Active Problems Active Problems: All Active Problems Umbilical hernia (Acute) Multiple thyroid nodules (Acute) Thyroid nodule (Acute) Abdominal wall pain in left flank (Acute) Pulmonary embolism (Acute) Abnormal LFTs (Acute) Left-sided weakness (Acute) Shortness of breath (Acute) Cough (Acute) Chest pain (Acute) PTSD (post-traumatic stress disorder) (Acute) Depression with suicidal ideation (Acute) Ventral hernia (Acute) Flank hernia (Acute) Sacroiliac joint dysfunction of both sides (Acute) Abdominal pannus (Acute) Depression (Acute) Hypotension (Acute) Lower urinary tract symptoms (Acute) Complicated urinary tract infection (Acute) Osteoporosis screening (Acute) Chronic kidney disease, stage III (moderate) (Acute) Paresthesia (Acute) Recurrent urinary tract infection (Acute) Solitary kidney, acquired (Acute) Orthostatic dizziness (Acute) Symptomatic abdominal panniculus (Acute) Panniculitis (Acute) Bilateral leg weakness (Acute) Obesity (Acute) Overweight (BMI 25.0-29.9) (Acute) Dysuria (Acute) Skin laxity (Acute) Painful sexual intercourse (Acute) Dyspareunia, female (Acute) Nephrolithiasis (Acute) Constipation (Acute) Colon cancer screening (Acute) Overweight (Acute) Sacroiliac joint pain (Acute) Left lumbar radiculopathy (Acute) Memory impairment (Acute) Renal cyst (Acute) Transaminitis (Acute) Elevated LFTs (Acute) Abdominal wall mass (Acute) Bilateral elbow joint pain (Acute) Hip pain, bilateral (Acute) Knee pain, bilateral (Acute) Arthralgia (Acute) Post traumatic stress disorder (PTSD) (Acute) MDD (major depressive disorder), recurrent, severe, with psychosis (Acute) Urinary frequency (Acute) Urinary incontinence (Acute) Excess skin (Acute) Renal calculus, right (Acute) MIGUEL (obstructive sleep apnea) (Acute) Obesity (BMI 30-39.9) (Acute) Renal cyst (Acute) Diverticulosis (Acute) Tubular adenoma (Acute) Spondylosis of lumbar spine (Acute) Sacroiliitis (Acute) Dizziness of unknown etiology (Acute) Chronic constipation (Acute) History of gastric bypass (Acute ~2008) Dyspareunia (Acute) Pyelonephritis (Acute) Ingrown toenail (Acute) Iron deficiency anemia (Acute) Major depression, recurrent (Acute) Anxiety (Acute) Insomnia (Acute) Tremor (Acute) Orthostatic hypotension (Acute) Incisional hernia without obstruction or gangrene (Acute) Avascular necrosis of femoral head (Acute) Bilateral carpal tunnel syndrome (Acute) Peroneal neuropathy (Acute) Lumbar degenerative disc disease (Acute) Vitamin D deficiency (Acute) GERD (gastroesophageal reflux disease) (Acute) Migraine (Acute) Hyperlipidemia (Acute) Past Medical History Medical History Chronic kidney disease, stage III (moderate) Obesity (BMI 30-39.9) Renal cyst Diverticulosis Tubular adenoma Asthma Spondylosis of lumbar spine Sacroiliitis Dizziness of unknown etiology Chronic constipation Hx of schizophrenia Panic attacks PTSD (post-traumatic stress disorder) Dyspareunia Pyelonephritis Ingrown toenail Iron deficiency anemia Major depression, recurrent Anxiety Insomnia Tremor Orthostatic hypotension Incisional hernia without obstruction or gangrene Avascular necrosis of femoral head Bilateral carpal tunnel syndrome Peroneal neuropathy Lumbar degenerative disc disease Vitamin D deficiency GERD (gastroesophageal reflux disease) Migraine Hyperlipidemia Family History Family History Father Liver cancer Mother Breast cancer Sister Lung cancer Other Mental health problem Family history of problems with anesthesia: No Surgical History Surgical History History of left nephrectomy (~1999) History of colonoscopy History of surgery Hx of cystoscopy History of bilateral breast reduction surgery History of hysterectomy History of cholecystectomy History of endoscopy (~06/2016) History of bladder repair surgery (~03/2015) S/P cystoscopy (~07/30/12) S/P panniculectomy History of hernia repair (~03/29/10) History of bladder surgery (~10/2009) History of gastric bypass (~2008) History of incisional hernia repair (~1999) Hx of umbilical hernia repair (~1999) H/O left nephrectomy S/P laparoscopic sleeve gastrectomy History of Problems with Anesthesia: No Social History Social History Household Members: Family Housing: House Do you presently have visiting nurse or other home services: No Alcohol intake: never Patient Tobacco Use Status: Never used Tobacco e-Cigarette/Vaping Use: Never Used Second Hand Smoke Exposure: No Advance Directives: No Advance Directives Information Provided: Yes Advance Directives Date on File: 07/12/21 service: No Current occupational status: disabled Sexual orientation: Straight/Heterosexual Gender identity: Female Cognitive needs: No Hearing needs: No Vision needs: Yes Meds Allergies Allergy/AdvReac Type Severity Reaction Status Date / Time atorvastatin AdvReac Intermediate other Verified 05/03/24 14:37 acetaminophen AdvReac Unknown Unknown Verified 05/03/24 14:37 Home Medications ?Medication ?Instructions ?Recorded ?Confirmed ?Last Taken ?Type potassium citrate 5 mEq (540 mg) 5 meq PO DAILY 06/13/23 05/03/24 01/21/24 History tablet,extended release lurasidone 40 mg tablet 40 mg PO DAILY 03/11/24 05/03/24 Unknown History naproxen 500 mg tablet 500 mg PO DAILY 03/11/24 05/03/24 Unknown History sumatriptan succinate 50 mg tablet 50 mg PO DAILY 03/11/24 05/03/24 Unknown History hydrocortisone 2.5 % topical cream 1 appl OR BID-QID PRN yes 03/18/24 05/03/24 Unknown History with perineal applicator triamcinolone acetonide 0.1 % 1 appl topical DAILY 03/18/24 05/03/24 Unknown History topical cream Exam Height,Weight and Vital Signs: Height 5 ft 3 in Weight 75.75 kg Last Vital Signs Temp 97.1 F 05/06/24 06:39 Pulse 67 05/06/24 06:39 Resp 15 05/06/24 06:39 BP 129/77 05/06/24 06:39 Pulse Ox 97 05/06/24 06:39 O2 Del Method Room Air 05/06/24 06:39 Airway Mallampati Class: II TM Dist: >3cm Neck ROM: Full Heart: rrr Lungs: cta Assessment and Plan Assessment Anesthesia Assessment: Anesthesia Plan Discussed and Chart Reviewed Final Anesthetic Review Family History of Problems with Anesthesia: No History of Problems with Anesthesia: No NPO: Yes ASA Class: III Final Preanesthetic Review: No Changes in Pt Med Stat, Meds/Allgs Chart Reviewed and Consent Obtained/Reviewed Patient Risk: Intermediate Procedure Risk: Intermediate Anesthetic Plan Anesthetic Plan: GA Disposition: Standard PACU
--- NOTE | 2024-05-06 07:17 | HO.ECTPROC ---
ECT Procedure Note Diagnosis/Treatment Date of Service: 05/06/24 Diagnosis: Major Depressive Disorder Previous ECT Date: 04/17/24 Current Treatment Number: 11 Treatment: Maintenance Interval Clinical Notes: The patient reported euthymia, her only complaint is involuntary oral movements probably due to TD, No major side effects with the previous ECT besides headache. ECT done as usual, no complications, woke up well. Time: Total time managing care of this patient today ____ minutes. ECT Settings Device: THYMATRON DGx Electrode Placement: Right Unilateral Program/Pulse Width: 0.25 Energy Percent: 100 Seizure Duration By EEG (in seconds): 59 By Motor Observation (in seconds): 28 Medications Administration General Anesthetic: Etomidate (10) Muscle Relaxant: Succinylcholine (80) Ancillary Medications Analgesics: Torodol - Pre ECT Anti-emetics: Zofran - Pre ECT Airway Management Airway Management: Bag Mask Ventilation Treatment Recommendations No Changes Recommended: No change Pt Tolerated Procedure w/o Issue: Yes
[2024-05-06 07:20] VITALS: BP 133/77; PULSE 88; RESP 16; TEMP 36.5; O2SAT 96
[2024-05-06 07:25] VITALS: BP 136/82; PULSE 87; RESP 18; O2SAT 96
[2024-05-06 07:30] VITALS: BP 128/81; PULSE 87; RESP 18; O2SAT 97
[2024-05-06 07:35] VITALS: BP 130/89; PULSE 89; RESP 18; O2SAT 97
[2024-05-06 07:50] VITALS: BP 126/76; PULSE 85; RESP 18; TEMP 36.3; O2SAT 97
== END 2024-05-06 08:23 | disposition home or self-care (01) ==
PROVIDERS: PCP Internal Medicine; Visit Provider Psychiatry & Neurology Psychiatry
PROC: (CPT 90870; principal; 2024-05-06 07:00)
DX: F33.2 Major depressive disorder, recurrent severe without psychotic features (principal); F41.9 Anxiety disorder, unspecified; F43.10 Post-traumatic stress disorder, unspecified; I95.1 Orthostatic hypotension; J45.909 Unspecified asthma, uncomplicated; F51.01 Primary insomnia; G47.33 Obstructive sleep apnea (adult) (pediatric); N18.30 Chronic kidney disease, stage 3 unspecified; Z90.5 Acquired absence of kidney; E78.00 Pure hypercholesterolemia, unspecified; E04.2 Nontoxic multinodular goiter; R25.9 Unspecified abnormal involuntary movements; D50.9 Iron deficiency anemia, unspecified; R79.89 Other specified abnormal findings of blood chemistry; R41.3 Other amnesia; Z86.711 Personal history of pulmonary embolism; M51.362 Other intervertebral disc degeneration, lumbar region with discogenic back pain and lower extremity pain; Z79.01 Long term (current) use of anticoagulants; Z79.84 Long term (current) use of oral hypoglycemic drugs; Z79.899 Other long term (current) drug therapy; Z99.89 Dependence on other enabling machines and devices; Z88.8 Allergy status to other drugs, medicaments and biological substances; Z98.84 Bariatric surgery status; Z98.890 Other specified postprocedural states
CPT/HCPCS: 90870; J0330; J1885; J2405

== ENCOUNTER → 2024-05-06 05:39 | Outpatient (BNV) | payer OTHER, SELFPAY | PROVIDERS: PCP Internal Medicine; Visit Provider Psychiatry & Neurology Psychiatry | DX: F33.3 Major depressive disorder, recurrent, severe with psychotic symptoms (principal) | CPT/HCPCS: 90870 ==

== ENCOUNTER 2024-05-15 08:05 | Outpatient (REF) | payer OTHER, SELFPAY ==
[2024-05-15 10:00] LABS: Anion Gap 13 (12-20); Blood Urea Nitrogen 14 mg/dL (9-16); Calcium 9.1 mg/dL (8.4-10.2); Carbon Dioxide 25 mmol/L (22-29); Chloride 107 mmol/L (96-108); Estimated Glomerular Filt Rate > 60; Glucose Random 95 mg/dL (60-115); Potassium 3.8 mmol/L (3.3-5.1); Sodium 141 mmol/L (135-145)
[2024-05-17 22:18] LABS: PTT (LAC) Screen 31 sec (<=40)
[2024-05-19 00:58] LABS: Anti-Thrombin III Activity 134 % normal (80-135); Protein C Activity 157 % normal (70-180); Protein S Activity rflx Tot&Fr 73 % normal (60-140)
[2024-05-20 11:19] LABS: Cyclic Citrullinated Peptide <16 UNITS
[2024-05-21 23:13] LABS: Factor VIII Activity 170 % normal (50-180)
[2024-05-22 16:09] LABS: Prothrombin 20210A NEGATIVE
[2024-05-22 18:12] LABS: Factor V Leiden NEGATIVE
== END 2024-05-15 08:06 | disposition home or self-care (01) ==
LOC: HO.LAB 08:05
PROVIDERS: PCP Internal Medicine; Visit Provider Hospitalist
DX: I26.94 Multiple subsegmental thrombotic pulmonary emboli without acute cor pulmonale (principal); R91.8 Other nonspecific abnormal finding of lung field; E04.1 Nontoxic single thyroid nodule; Z79.01 Long term (current) use of anticoagulants
CPT/HCPCS: 36415; 80048; 81240; 81241; 85240; 85300; 85302; 85303; 85306; 85597; 85598; 85613; 85730; 86200; 99212

== ENCOUNTER 2024-05-15 08:05 | Outpatient (AMB) | payer OTHER, SELFPAY ==
--- NOTE | 2024-05-15 08:18 | A.OFFVIS_ITS ---
Vital Signs 05/15/24 08:19 Height 5 ft 3 in Weight 164 lb 3.91 oz BMI 29.1 BP 132/88 Blood Pressure Location Lt brachial Position Sitting Pulse 63 Pulse Source Pulse Oximeter Pulse Oximetry (%) 99 Oxygen Delivery Method Room Air Intake Visit Reasons: Pulmonary Nodules Allergies atorvastatin Adverse Reaction (Intermediate, Verified 05/03/24 14:37) other acetaminophen Adverse Reaction (Unknown, Verified 05/03/24 14:37) Unknown HPI Comments Details: The patient is a 53 yo F with asthma, HLD, orthostatic hypotension, hx nephrectomy, hx gastric bypass, migraines, GERD, MIGUEL on CPAP anxiety, depression, schizophrenia admitted to on 01/24/24for depression with SI. On 02/04/24, she was transferred to the hospitalist service due to L-sided weakness that the patient had noted 3-4d ago in association with throbbing headache and chest pains. CT of the head and CTA of the head and neck was negative for acute stroke, bleed, or large vessel occlusion. As for a recently diagnosed PE on 02/01/24 involving the R main PA and segmental branches of the RLL, she had no dyspnea or hypoxic. Therapeutic enoxaparin was transitioned to apixaban and she should take 10 mg bid until 02/12/24, then change to 5 mg bid. She was transferred back to for resumption of inpatient psychiatric care. The patient is tolerating the anticoagulation. 05/15/2024 the patient is here for a pulmonary hospital follow-up visit. She was diagnosed with acute pulmonary embolism primarily affecting her right lung. She did have also evidence of pulmonary nodules and some degree of mosaic pattern pneumonitis on her CT scan. She was placed on Eliquis initially the loading dose and nose tolerating the maintenance dose without any minor major bleeding. She was subsequently discharged from [facility]. She was getting ECT but she has not been able to feel his ECT because the therapy. In addition to that she was found to have a thyroid nodule that was going to be biopsied sometime the end of the month. The patient is able to get the biopsy and stop the Eliquis but she needs bridge with Eliquis since she did have significant clot burden and was considered an unprovoked clot. We did talk about Lovenox and making sure that she gets her shot at the same time she would her Eliquis twice a day for the times instructed to do so prior to her biopsy. The patient will get a repeat CTA to make sure she has stable pulmonary nodules and to make sure the clot burden has subsided. Also, the seems to be a family history of blood clots. Wi ll request a hypercoagulable workup and also check her kidney function specially since she only has 1 functional kidney. She will follow-up in 3 months. If she has any issues she will call for an earlier assessment. [facility] Medical History (Updated 05/15/24 @ 08:38 by Jordan Le MD) Pulmonary nodules Chronic kidney disease, stage III (moderate) Obesity (BMI 30-39.9) Renal cyst Diverticulosis Tubular adenoma Asthma Spondylosis of lumbar spine Sacroiliitis Dizziness of unknown etiology Chronic constipation Hx of schizophrenia Panic attacks PTSD (post-traumatic stress disorder) Dyspareunia Pyelonephritis Ingrown toenail Iron deficiency anemia Major depression, recurrent Anxiety Insomnia Tremor Orthostatic hypotension Incisional hernia without obstruction or gangrene Avascular necrosis of femoral head Bilateral carpal tunnel syndrome Peroneal neuropathy Lumbar degenerative disc disease Vitamin D deficiency GERD (gastroesophageal reflux disease) Migraine Hyperlipidemia Surgical History History of left nephrectomy (~1999) History of colonoscopy History of surgery Hx of cystoscopy History of bilateral breast reduction surgery History of hysterectomy History of cholecystectomy History of endoscopy (~06/2016) History of bladder repair surgery (~03/2015) S/P cystoscopy (~07/30/12) S/P panniculectomy History of hernia repair (~03/29/10) History of bladder surgery (~10/2009) History of gastric bypass (~2008) History of incisional hernia repair (~1999) Hx of umbilical hernia repair (~1999) H/O left nephrectomy S/P laparoscopic sleeve gastrectomy Family History Father Liver cancer Mother Breast cancer Sister Lung cancer Other Mental health problem Social History Household Members: Family Housing: House Do you presently have visiting nurse or other home services: No Alcohol intake: never Patient Tobacco Use Status: Never used Tobacco e-Cigarette/Vaping Use: Never Used Second Hand Smoke Exposure: No Advance Directives Date on File: 07/12/21 service: No Current occupational status: disabled Sexual orientation: Straight/Heterosexual Gender identity: Female Cognitive needs: No Hearing needs: No Vision needs: Yes Female Reproductive History Menstrual Age of Menarche: 13 Review of Systems Const Denies weight gain and Denies weight loss ENT Reports no additional complaints Card Reports no additional complaints Resp Reports no additional complaints GI Reports no additional complaints Musc Reports no additional complaints Neuro Reports no additional complaints Psych Reports no additional complaints Endo Reports no additional complaints Physical Exam Vital Signs: Last Vital Signs Pulse 63 05/15/24 08:19 BP 132/88 05/15/24 08:19 Pulse Ox 99 05/15/24 08:19 Oxygen Delivery Method Room Air 05/15/24 08:19 BMI result Body Mass Index 29.1 Last Vital Signs Temp 98.3 F 02/08/24 08:00 Pulse 58 02/08/24 08:00 Resp 18 02/08/24 08:00 BP 91/53 L 02/08/24 08:00 Pulse Ox 96 02/08/24 08:00 O2 Del Method Room Air 02/08/24 08:00 Const General: comfortable HEENT Head: Yes normocephalic Neck Neck: Yes supple Chest Chest palpation & inspection: normal inspection of the chest Resp Effort & Inspection: normal respiratory effort and able to speak in complete sentences Cardio Heart sounds: S1 normal heart sound present and S2 normal heart sound present Skin General skin exam: no rashes or lesions noted Extrem General: No edema Results Reviewed Results Reviewed: personally reviewed CT chest with PEs and pulmonary nodules, mosiaic pattern Assessment & Plan Assessment & Plan (1) Pulmonary embolism: Code(s): I26.99 - Other pulmonary embolism without acute cor pulmonale Category: Medical Qualifiers: Pulmonary embolism type: multiple subsegmental (without acute cor pulmonale) Qualified Code(s): I26.94 - Multiple subsegmental thrombotic pulmonary emboli without acute cor pulmonale (2) Pulmonary nodules: Code(s): R91.8 - Other nonspecific abnormal finding of lung field Category: Medical (3) Thyroid nodule: Code(s): E04.1 - Nontoxic single thyroid nodule Category: Medical Plan continue Eliquis 5mg BID OK to stop the Eliquis 3 days prior to her thyroid biopsy, but will need to bridge with Lovenox Bloodwork/hypercoagulable w/u repeat CTA to reassess clots and also 7mm nodule F/U 3 months Orders: Orders Protein C Activity Reflex Ag Today I26.94 - Multiple subsegmental thrombotic pulmonary emboli without acute cor pulmonale Basic Metabolic Panel Today I26.94 - Multiple subsegmental thrombotic pulmonary emboli without acute cor pulmonale Factor V Leiden Today I26. - Multiple subsegmental thrombotic pulmonary emboli without acute cor pulmonale Factor VIII Activity Today I26. - Multiple subsegmental thrombotic pulmonary emboli without acute cor pulmonale Prothrombin [id number] Today I26. - Multiple subsegmental thrombotic pulmonary emboli without acute cor pulmonale Protein S Activity reflex Ag Today I26. - Multiple subsegmental thrombotic pulmonary emboli without acute cor pulmonale Anti-Thrombin III Activity Today I26. - Multiple subsegmental thrombotic pulmonary emboli without acute cor pulmonale Lupus Anticoagulant Panel Today I26. - Multiple subsegmental thrombotic pulmonary emboli without acute cor pulmonale Cyclic Citrullinated Peptide Today I26. - Multiple subsegmental thrombotic pulmonary emboli without acute cor pulmonale CT angio chest PE protocol Today I26. - Multiple subsegmental thrombotic pulmonary emboli without acute cor pulmonale, R91.8 - Other nonspecific abnormal finding of lung field Medications: New enoxaparin (Lovenox) for bridge to procedure 60 mg (0.6 mL) subcut Q12H 6 mL 0RF 3 days Refilled apixaban (Eliquis) 5 mg PO BID 60 tabs 11RF 30 days Coding Level of Care Code Est Pt Level 5 (06451) Diagnoses Multiple subsegmental pulmonary emboli without acute cor pulmonale I2. Pulmonary embolism type: multiple subsegmental (without acute cor pulmonale) Pulmonary nodules R91.8 Thyroid nodule E04.1 Time Spent (min) 45
[2024-05-15 08:19] VITALS: BP 132/88; PULSE 63; O2SAT 99; BMI 29.1
== END 2024-05-15 08:43 | disposition home or self-care (01) ==
PROVIDERS: PCP Internal Medicine; Visit Provider Hospitalist
DX: R91.8 Other nonspecific abnormal finding of lung field (principal); I26.94 Multiple subsegmental thrombotic pulmonary emboli without acute cor pulmonale; E04.1 Nontoxic single thyroid nodule
CPT/HCPCS: 99215

== ENCOUNTER 2024-05-16 13:00 | Outpatient (AMB) | payer OTHER, SELFPAY ==
[2024-05-16 13:24] VITALS: BP 90/62; PULSE 60; BMI 28.7
--- NOTE | 2024-05-16 13:24 | MHC.OFFVIS ---
Vital Signs 05/16/24 13:24 Height 5 ft 3 in Weight 162 lb 4.163 oz BMI 28.7 BP 90/62 Blood Pressure Location Lt brachial Position Sitting Pulse 60 Pulse Source Pulse Oximeter Intake Visit Reasons: 4 mth f/up Chemical Equipment Sales Engineer Required: Yes Chemical Equipment Sales Engineer Language: Probation And Patrol Agent Name: voice chin [id number] Allergies atorvastatin Adverse Reaction (Intermediate, Verified 05/16/24 13:27) other acetaminophen Adverse Reaction (Unknown, Verified 05/16/24 13:27) Unknown Medication List - Last Reconciled 05/16/24 by ALISE Bauman albuterol sulfate 90 mcg/actuation (Ventolin HFA) 2 puffs inhalation Q6H PRN 30 days apixaban (Eliquis) 5 mg PO BID 30 days bisacodyl (Dulcolax (bisacodyl)) 10 mg (2 x 5 mg) PO BEDTIME blood pressure monitor As directed [id number] 50-325-40 mg 2 tabs PO Q6H PRN 30 days cariprazine (Vraylar) 4.5 mg (3 x 1.5 mg) PO DAILY 30 days cholecalciferol (vitamin D3) (Vitamin D3) 25 mcg PO DAILY 90 days ciprofloxacin HCl 500 mg PO BID [CPAP device and all related supplies As directed] cyanocobalamin (vitamin B-12) 500 mcg PO DAILY 30 days diphenhydramine HCl (Banophen) 25 mg PO TID PRN 30 days docusate sodium 100 mg PO DAILY enoxaparin (Lovenox) 60 mg (0.6 mL) subcut Q12H 3 days estradiol 0.01%(0.1mg/gram) vaginally 3 times a week; pea sized amount to urethra 3 times a week 90 days ferrous sulfate 325 mg PO DAILY 90 days gabapentin 800 mg PO TID 30 days hydrocortisone 2.5% 1 appl ND BID-QID PRN linaclotide (Linzess) 145 mcg PO DAILY lorazepam 1 mg PO BID PRN 30 days meclizine 25 mg PO TID PRN 30 days melatonin 10 mg (2 x 5 mg) PO BEDTIME PRN 30 days midodrine 10 mg PO TID 30 days mometasone 0.1% 1 appl topical DAILY PRN naproxen 500 mg PO DAILY nitrofurantoin monohyd/m-cryst 100 mg (Macrobid) 100 mg PO DAILY 30 days potassium citrate ER 5 mEq PO DAILY sumatriptan succinate 50 mg PO DAILY topiramate 100 mg PO DAILY 30 days tramadol 100 mg (2 x 50 mg) PO Q8H PRN 30 days triamcinolone acetonide 0.1% 1 appl topical DAILY HPI HPI 4 mth f/up: Details: Xenia as a 53-year-old female with past medical history of obesity status post bariatric surgery, anxiety/depression, orthostatic hypotension, syncope who presents for follow-up. Today she reports that she continues to have lightheadedness at times when standing. She has not had any recurrent syncopal events. She again tells me that she does not drink much liquid. She has not increase the salt in her diet. She reports taking the midodrine 3 times daily as directed. She is not wearing compression stockings. She has no chest discomfort, shortness of breath, PND, orthopnea, edema. She reports only light activities in the home. Her helps her climb the stairs. Certified examining officer used. is present [facility] Medical History Pulmonary nodules Chronic kidney disease, stage III (moderate) Obesity (BMI 30-39.9) Renal cyst Diverticulosis Tubular adenoma Asthma Spondylosis of lumbar spine Sacroiliitis Dizziness of unknown etiology Chronic constipation Hx of schizophrenia Panic attacks PTSD (post-traumatic stress disorder) Dyspareunia Pyelonephritis Ingrown toenail Iron deficiency anemia Major depression, recurrent Anxiety Insomnia Tremor Orthostatic hypotension Incisional hernia without obstruction or gangrene Avascular necrosis of femoral head Bilateral carpal tunnel syndrome Peroneal neuropathy Lumbar degenerative disc disease Vitamin D deficiency GERD (gastroesophageal reflux disease) Migraine Hyperlipidemia Surgical History History of left nephrectomy (~1999) History of colonoscopy History of surgery Hx of cystoscopy History of bilateral breast reduction surgery History of hysterectomy History of cholecystectomy History of endoscopy (~06/2016) History of bladder repair surgery (~03/2015) S/P cystoscopy (~07/30/12) S/P panniculectomy History of hernia repair (~03/29/10) History of bladder surgery (~10/2009) History of gastric bypass (~2008) History of incisional hernia repair (~1999) Hx of umbilical hernia repair (~1999) H/O left nephrectomy S/P laparoscopic sleeve gastrectomy Family History Father Liver cancer Mother Breast cancer Sister Lung cancer Other Mental health problem Social History Household Members: Family Housing: House Do you presently have visiting nurse or other home services: No Alcohol intake: never Patient Tobacco Use Status: Never used Tobacco e-Cigarette/Vaping Use: Never Used Second Hand Smoke Exposure: No Advance Directives Date on File: 07/12/21 service: No Current occupational status: disabled Sexual orientation: Straight/Heterosexual Gender identity: Female Cognitive needs: No Hearing needs: No Vision needs: Yes Female Reproductive History Menstrual Age of Menarche: 13 Review of Systems Const All systems reviewed & are unremarkable except as noted in HPI and below ENT Reports dizziness Card Denies chest pain, Denies chest pain at rest, Denies chest pain with activity, Denies rapid heart rate, Denies pedal edema, Denies edema, Denies leg edema, Denies lightheadedness, Denies palpitations, Denies dyspnea, Denies dyspnea on exertion and Denies orthopnea Resp Denies cough, Denies dyspnea and Denies dyspnea on exertion GI Denies hematochezia and Denies change in stool character Musc Denies abnormal gait, Denies limited range of motion, Denies muscle cramps, Denies muscle weakness, Denies numbness, Denies radiating pain into limb, Denies stiffness and Denies tingling Neuro Denies abnormal gait, Reports dizziness, Denies numbness and Denies tingling Endo Denies palpitations Physical Exam Vital Signs: Last Vital Signs Pulse 60 05/16/24 13:24 BP 90/62 05/16/24 13:24 BMI result Body Mass Index 28.7 Const General: cooperative, healthy appearing, comfortable and no acute distress Orientation/consciousness: patient oriented x3 Neck Neck: Yes normal visual inspection and Yes no JVD Resp Effort & Inspection: normal respiratory effort Auscultation: clear to auscultation bilaterally, no crackles, no rales, no rhonchi and no wheezes Cardio Jugular venous distension: no JVD Rate: regular rate Rhythm: regular rhythm Heart sounds: S1 normal heart sound present, S2 normal heart sound present, no murmurs and no rubs Neuro General: patient oriented x3 Extrem General: Yes normal to inspection and No no pedal edema Psych Appearance: grossly normal Mental Status: mental status grossly normal Speech and movement: Normal speech and movement present Assessment & Plan Assessment & Plan (1) Orthostatic dizziness: Code(s): R42 - Dizziness and giddiness Category: Medical Plan: Reports of orthostatic lightheadedness. She does run a low blood pressure and midodrine previously added then dose increased due to ongoing hypotension. She is currently on 10 mg t.i.d. and reports compliance. She has had syncope in the past however none since June 2023. A cardiac event monitor was done on 07/11/2023 for 30 days showing sinus rhythm with heart rate range 36 to 131, 2 brief paroxysmal SVT episodes, rare PACs and PVCs. Two symptom events correlated with sinus tach. An echocardiogram was done 07/11/2023 which was normal study. An tilt-table test done on 10/17/2023 showed appropriate heart rate and blood pressure response to tilt. She has not been compliant with increasing her fluid, salt and wearing compression stockings. Today she is still reporting episodes of lightheadedness in a standing position. Her blood pressure today is 90/62. She is not significantly orthostatic on exam when checked by me. Again she tells me she is not drinking much liquid at all. She also has not tried to increase the salt in her diet. She does not wear compression stockings. With the use of the optical goods drilling machine operator and her she was instructed on drinking 64 oz of fluid daily including some Gatorade, broth, water, juice. She was instructed to add salt to her diet by eating foods such as chicken soup, tomato juice, potato chips. She was previously given a pair of compression stockings from our office stock. I again instructed her on their use. The reason for each of these activities was discussed. Informed her that the fluid, salt and socks will help keep her blood pressure up and limit her symptom of dizziness. Reviewed physical activity as tolerated and using caution when going sitting to standing. Sit or lay down if she becomes symptomatic. She will continue midodrine 3 times daily. Will plan follow-up in 6 months, sooner if needed. (2) Hypotension: Code(s): I95.9 - Hypotension, unspecified Category: Medical Plan: As above Plan Time spent on chart review, documentation, interview and assessment Coding Level of Care Code Est Pt Level 3 (95278) Complex EM visit Add On G2211 Diagnoses Orthostatic dizziness R42 Hypotension I95.9 Time Spent (min) 25
== END 2024-05-16 14:06 | disposition home or self-care (01) ==
PROVIDERS: PCP Internal Medicine; Visit Provider Nurse Practitioner Family
DX: R42 Dizziness and giddiness (principal); I95.9 Hypotension, unspecified
CPT/HCPCS: 99213; G2211

== ENCOUNTER → 2024-05-16 13:00 | Outpatient (BNVA) | payer OTHER, SELFPAY | PROVIDERS: PCP Internal Medicine; Visit Provider Nurse Practitioner Family | DX: I95.9 Hypotension, unspecified (principal); R42 Dizziness and giddiness | CPT/HCPCS: 99212 ==

== ENCOUNTER 2024-05-21 13:07 | Outpatient (AMB) | payer OTHER, SELFPAY ==
--- NOTE | 2024-05-21 13:30 | MHC.OFFVIS ---
Vital Signs 05/21/24 13:32 Height 5 ft 3 in Weight 166 lb 8 oz BMI 29.5 BP 122/70 Blood Pressure Location Lt brachial Position Sitting Pulse 45 L Pulse Source Pulse Oximeter Pulse Oximetry (%) 98 Oxygen Delivery Method Room Air Intake Visit Reasons: Follow up Intake Note: Patient presents for a 7 mo fu for MIGUEL. 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 Services: Actuarial Consultant Present Actuarial Consultant Name: Ranjana [id number] Accompanied by: Self / Same As Patient Allergies atorvastatin Adverse Reaction (Intermediate, Verified 05/21/24 13:32) other acetaminophen Adverse Reaction (Unknown, Verified 05/21/24 13:32) Unknown Medication List - Last Reconciled 05/21/24 by Melvin Najera PA-C albuterol sulfate 90 mcg/actuation (Ventolin HFA) 2 puffs inhalation Q6H PRN 30 days apixaban (Eliquis) 5 mg PO BID 30 days bisacodyl (Dulcolax (bisacodyl)) 10 mg (2 x 5 mg) PO BEDTIME blood pressure monitor As directed ifnyxiwprs-vthknzzbkxxys-ptfk 50-325-40 mg 2 tabs PO Q6H PRN 30 days cariprazine (Vraylar) 4.5 mg (3 x 1.5 mg) PO DAILY 30 days cholecalciferol (vitamin D3) (Vitamin D3) 25 mcg PO DAILY 90 days ciprofloxacin HCl 500 mg PO BID [CPAP device and all related supplies As directed] cyanocobalamin (vitamin B-12) 500 mcg PO DAILY 30 days diphenhydramine HCl (Banophen) 25 mg PO TID PRN 30 days docusate sodium 100 mg PO DAILY enoxaparin (Lovenox) 60 mg (0.6 mL) subcut Q12H 3 days estradiol 0.01%(0.1mg/gram) vaginally 3 times a week; pea sized amount to urethra 3 times a week 90 days ferrous sulfate 325 mg PO DAILY 90 days gabapentin 800 mg PO TID 30 days hydrocortisone 2.5% 1 appl FL BID-QID PRN linaclotide (Linzess) 145 mcg PO DAILY lorazepam 1 mg PO BID PRN 30 days meclizine 25 mg PO TID PRN 30 days melatonin 10 mg (2 x 5 mg) PO BEDTIME PRN 30 days midodrine 10 mg PO TID 30 days mometasone 0.1% 1 appl topical DAILY PRN naproxen 500 mg PO DAILY nitrofurantoin monohyd/m-cryst 100 mg (Macrobid) 100 mg PO DAILY 30 days potassium citrate ER 5 mEq PO DAILY sumatriptan succinate 50 mg PO DAILY topiramate 100 mg PO DAILY 30 days tramadol 100 mg (2 x 50 mg) PO Q8H PRN 30 days triamcinolone acetonide 0.1% 1 appl topical DAILY HPI Comments Details: 52-yr-old female presents for f/u visit for mild obstructive sleep apnea, on CPAP. Actuarial Consultant on IPAD Pt has a biopsy of the Thyroid Nodule on May 29, 2024. MIGUEL Compliance Report 02/16/2024- 05/15/2024 Avg use >4 hours days 26% Avg use total days 1 hour and 55 min APAP- Press [id number] AHI 9.5 Pt states she has not been able to use her APAP machine, as it makes her cough and her asthmatic symptoms worsen, she is using her inhaler PRN. She changes out her mask, filters and cleans the tubing as needed. She did speak w/ [facility], who made some adjustments to her machine however the air is still blowing hot air. She would like to use her PAP machine as she states she sleeps better with use. Her memory is still poor, Orthostatic hypotension, still causes some dizziness. She is still having leg cramps, drooling, neck tightness- prone to right laterocollis, falls d/t tripping or losing her balance. She goes to bed at 8:30pm and wakes up at 7am, 4-5x for the bathroom, she has CKD Stage III. She monitors her BP 3x daily. She takes her antibiotics prior to going to sleep. She was not able to use the CPAP due to her asthma attacks. She has panic attacks, anxiety and depression. She sees her therapist 2x a month. Will f/u in 3 months as she was not able to use the machine due to asthma. RLS: Moves her legs all throughout the night, shaking and tremors, she is taking Gabapentin 800mg TID. The eerie sensation in her legs are not improved, just makes her tired. [facility] Medical History Pulmonary nodules Chronic kidney disease, stage III (moderate) Obesity (BMI 30-39.9) Renal cyst Diverticulosis Tubular adenoma Asthma Spondylosis of lumbar spine Sacroiliitis Dizziness of unknown etiology Chronic constipation Hx of schizophrenia Panic attacks PTSD (post-traumatic stress disorder) Dyspareunia Pyelonephritis Ingrown toenail Iron deficiency anemia Major depression, recurrent Anxiety Insomnia Tremor Orthostatic hypotension Incisional hernia without obstruction or gangrene Avascular necrosis of femoral head Bilateral carpal tunnel syndrome Peroneal neuropathy Lumbar degenerative disc disease Vitamin D deficiency GERD (gastroesophageal reflux disease) Migraine Hyperlipidemia Surgical History History of left nephrectomy (~1999) History of colonoscopy History of surgery Hx of cystoscopy History of bilateral breast reduction surgery History of hysterectomy History of cholecystectomy History of endoscopy (~06/2016) History of bladder repair surgery (~03/2015) S/P cystoscopy (~07/30/12) S/P panniculectomy History of hernia repair (~03/29/10) History of bladder surgery (~10/2009) History of gastric bypass (~2008) History of incisional hernia repair (~1999) Hx of umbilical hernia repair (~1999) H/O left nephrectomy S/P laparoscopic sleeve gastrectomy Family History Father Liver cancer Mother Breast cancer Sister Lung cancer Other Mental health problem Social History Household Members: Family Housing: House Do you presently have visiting nurse or other home services: No Alcohol intake: never Patient Tobacco Use Status: Never used Tobacco e-Cigarette/Vaping Use: Never Used Second Hand Smoke Exposure: No Advance Directives Date on File: 07/12/21 service: No Current occupational status: disabled Sexual orientation: Straight/Heterosexual Gender identity: Female Cognitive needs: No Hearing needs: No Vision needs: Yes Female Reproductive History Menstrual Age of Menarche: 13 Review of Systems Const All systems reviewed & are unremarkable except as noted in HPI and below Physical Exam Vital Signs: Last Vital Signs Pulse 45 L 05/21/24 13:32 BP 122/70 05/21/24 13:32 Pulse Ox 98 05/21/24 13:32 Oxygen Delivery Method Room Air 05/21/24 13:32 BMI result Body Mass Index 29.5 Const General: cooperative, comfortable and no acute distress Nutritional Appearance: average body habitus and other (BMI is 29) Orientation/consciousness: patient oriented x3 Eyes Pupils: Equal, round and reactive pupils present Neck Neck: Yes full ROM Resp Effort & Inspection: normal respiratory effort and able to speak in complete sentences Neuro General: patient oriented x3 and moves all extremities Cranial nerves: Yes CN's II-XII intact bilaterally, Yes Facial sensation intact/muscles of mastication intact, Yes Equal, round and reactive pupils present, Yes Normal accommodation reflex present, Yes Bilaterally intact EOM present, Yes Nystagmus not present, Yes Normal facial strength present, Yes Midline tongue present, Yes Ability to bilaterally rotate head present and Yes Ability to bilaterally elevate shoulders present Cognition (Neuro): normal cognition Gait exam (Neuro): Normal gait present Motor exam (neuro): 5/5 motor strength present throughout, Normal motor muscle tone present throughout, Tremors during motor activity present (R. Hand ) and Motor abnormalites present Deep tendon reflexes (DTR's): Right triceps reflex intensity grade: 2+, Left triceps reflex intensity grade: 2+, Rt Biceps (C5, C6): 2+, Left biceps reflex intensity grade: 2+, Right brachioradialis reflex intensity grade: 2+, Left brachioradialis reflex intensity grade: 2+, Right patellar reflex intensity grade: 2+ and Left patellar reflex intensity grade: 2+ Psych Appearance: grossly normal Speech and movement: Normal speech and movement present and Other speech and movement exam findings present (Psych) (hypophonia) Affect: Sad affect present Attitude: cooperative Thought process: Normal thought process present Thought content: Normal thought content present Results Reviewed Results Reviewed: Labs CPAP Compliance Report 01/2024- 2024 Reviewed data with her. MIGUEL Compliance Report 02/16/2024- 05/15/2024 Avg use >4 hours days 26% Avg use total days 1 hour and 55 min APAP- Press [id number] AHI 9.5 Assessment & Plan Assessment & Plan (1) Obesity: Code(s): E66.9 - Obesity, unspecified Category: Medical Qualifiers: Body mass index: BMI 30.0-30.9 Obesity classification: adult class 1 (BMI 30 - 34.9) Obesity type: due to excess calories Serious obesity comorbidity presence: with serious comorbidity Qualified Code(s): E66.811 - Obesity, class 1; E66.09 - Other obesity due to excess calories; Z68.30 - Body mass index [BMI] 30.0-30.9, adult (2) Overweight (BMI 25.0-29.9): Code(s): E66.3 - Overweight Category: Medical (3) MIGUEL (obstructive sleep apnea): Comment: mild degree of sleep apnea. The AHI was 5/hr and oxygen mitul was 81%. Code(s): G47.33 - Obstructive sleep apnea (adult) (pediatric) Category: Medical (4) Major depression, recurrent: Code(s): F33.9 - Major depressive disorder, recurrent, unspecified Category: Medical Qualifiers: Active/Remission status: currently active Major depression episode severity: unspecified Qualified Code(s): F33.9 - Major depressive disorder, recurrent, unspecified (5) Insomnia: Code(s): G47.00 - Insomnia, unspecified Category: Medical Qualifiers: Insomnia type: primary Qualified Code(s): F51.01 - Primary insomnia Plan MIGUEL Mild : Continue CPAP daily, as tolerated, will referr to Pulmonology for PFTs, as her asthma interferes with use. Thyroid Biopsy May 29, 2023. Stressed compliance of CPAP nightly, as patient has HTN, and CKD stage 3, and the #1 modifiable RF for CV events is hypertension. Discussed weight management and meal prepping along with lifestyle modification. Sleep Hygiene: Sleep in a cool and dark environment, no devices in bed. Red light therapy may be relaxing, limit fluids 2 hours prior to bed to avoid nocturia. Coding Level of Care Code Est Pt Level 3 (35347) Diagnoses Class 1 obesity due to excess calories with serious comorbidity and body mass index (BMI) of 30.0 to 30.9 in adult E66.811; E66.09; Z68.30 Body mass index: BMI 30.0-30.9 Obesity classification: adult class 1 (BMI 30 - 34.9) Obesity type: due to excess calories Serious obesity comorbidity presence: with serious comorbidity Overweight (BMI 25.0-29.9) E66.3 MIGUEL (obstructive sleep apnea) G47.33 Episode of recurrent major depressive disorder, unspecified depression episode severity F33.9 Active/Remission status: currently active Major depression episode severity: unspecified Primary insomnia F51.01 Insomnia type: primary Time Spent (min) 30 Comment Worsening
[2024-05-21 13:32] VITALS: BP 122/70; PULSE 45; O2SAT 98; BMI 29.5
--- OUTSIDE RECORDS SUMMARY | 2024-05-21 14:53 | XMS_ITS | Clinical Summary ---
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 Name Role Phone Hung Montelongo MD Primary Care Provider [phone] Allergies Active Allergy Reactions Criticality Noted Date Comments Bupropion 05/17/2013 Citalopram 05/17/2013 Escitalopram 05/17/2013 Mirtazapine 05/17/2013 Prednisone 05/17/2013 Tramadol 05/17/2013 Acetaminophen 09/05/2022 Medications atorvastatin (LIPITOR) 10 MG tablet Take 10 mg by mouth 1 (one) time each day Active ferrous sulfate 325 (65 Fe) MG EC tablet Take 325 mg by mouth 1 (one) time each day Active gabapentin (NEURONTIN) 800 MG tablet Take 800 mg by mouth 3 (three) times a day Active meclizine (ANTIVERT) 25 MG tablet Take 25 mg by mouth 3 (three) times a day if needed 1 Active D3-1000 25 MCG (1000 UT) capsule Take 1,000 Units by mouth 1 (one) time each day 1 Active traMADol (ULTRAM) 50 MG tablet Take 50 mg by mouth every 6 (six) hours if needed for moderate pain Active midodrine (PROAMATINE) 10 MG tablet Take 1 tablet (10 mg total) by mouth 4 (four) times a day 360 tablet 2 1 Active Additional Information Patient taking differently: 5 mgOral 4 times daily, Reported on 08/31/2021 senna (SENOKOT) 8.6 MG tablet Take 1 tablet by mouth 1 (one) time each day Active LORazepam (ATIVAN) 1 MG tablet TOME WU TABLETA DOS VECES AL D A CUANDO SEA NECESARIO 3 Active ARIPiprazole (ABILIFY) 5 MG tablet Take 5 mg by mouth 1 (one) time each day Active Active Problems Problem Noted Date Diagnosed Date Chronic kidney disease, stage 2 (mild) Chronic kidney disease stage 3 11/23/2020 Essential hypertension 11/23/2020 Renal stone 11/23/2020 Resolved Problems Problem Noted Date Diagnosed Date Resolved Date Pain in toe 10/05/2017 11/23/2020 Paronychia 10/05/2017 11/23/2020 Encounters Date Type Department Care Team Description 03/01/2024 Orders Only [facility] [address] [address] Alejandro Benz MD from Last 3 Months Social History Tobacco Use Types Packs/Day Years Used Date Smoking Tobacco: Never Smokeless Tobacco: Never Alcohol Use Standard Drinks/Week Comments No 0 (1 standard drink = 0.6 oz pur e alcohol) Comments Unknown Sex and Gender Information Value Date Recorded Sex Assigned at Not on file Legal Sex Female 4:59 PM EST Gender Identity Not on file Sexual Orientation Not on file Last Filed Vital Signs Vital Sign Reading Time Taken Comments Blood Pressure 114/62 09/07/2023 1:27 PM EDT Pulse 64 09/07/2023 1:27 PM EDT Temperature - - Respiratory Rate - - Oxygen Saturation 96% 09/07/2023 1:27 PM EDT Inhaled Oxygen Concentration - - Weight 68.6 kg (151 lb 3.2 oz) 09/07/2023 1:27 P M EDT Height 160 cm (5' 3 ) 05/25/2020 12:00 PM EST Body Mass Index 26.78 05/25/2020 12:00 PM EST Plan of Treatment Upcoming Encounters Date Type Department Care Team (Late st Contact Info) Description 09/09/2024 1:00 PM EDT Office Visit [facility] [address] [place] [address] Alejandro Benz MD [address] [address] Health Maintenance Due Date Last Done Comments Breast Cancer Screening 1970 Pneumococcal Vaccine: Pediat rics (0 to 5 Years) and At-Risk Patients (6 to 64 Years) (1 of 2 - PCV) 11/18/1975 Hepatitis B Vaccine (1 of 3 - 19+ 3-dose series) 11/17 Colorectal Cancer Screening: Annual FOBT 2018 Colorectal Cancer Screening: Colonoscopy 2018 Colorectal Cancer Screening: Sigmoidoscopy 2018 Influenza Vaccine (#1) 2023 Procedures Procedure Name Priority Date/Time Associated Diagnosis Comments PROTEIN / CREATININE RATIO, URINE Routine 03/01/2024 12:25 PM EDT ALBUMIN, URINE, RANDOM Routine 03/01/2024 12:25 PM EDT URINALYSIS WITH MICROSCOPIC Routine 03/01/2024 12:25 PM EDT CALCIUM Routine 03/01/2024 11:41 AM EDT CREATININE, BLOOD Routine 03/01/2024 11: 41 AM EDT BUN Routine 03/01/2024 11:41 AM EDT ELECTROLYTE PANEL Routine 03/01/2024 11: 41 AM EDT from Last 3 Months Results * Protein, Total, Random Urine w/Creatinine (Protein/Creat Ratio) (03/01/2024 12:25 PM EDT) Protein Urine Random 9 <12 mg/dL See order comments Protein/Creatin ine Ratio, Urine 0.07 <0.2 See order comments Comment: The spot urine protein:creatinine ratio may increase to 0.3 during normal . 03/01/2024 12:2 5 PM EDT 03/01/2024 12:25 PM EDT us Alejandro Benz MD LAB URINE ORDERABLES Final Re sult [facility] See order comments [place] [address] * Albumin, urine, random (03/01/2024 12:25 PM EDT) Creatinine, Urine 128.39 mg/dL Se e order comments Urine Microalbumin 14.0 mg/L See order comments Microalbumin/Crea tinine Ratio 10.9 <30 ug/mg cr See order comments Comment: ?Albumin/Creatinine Ratio Reference Ranges: ?Normal: < 30 ug/mg creatinine ?Microalbuminuria: ??30 - 300 ug/mg creatinine Clinical Albuminuria: ??> 300 ug/mg creatinine 03/01/2024 12:2 5 PM EDT 03/01/2024 12:25 PM EDT Alejandro Benz MD LAB URINE ORDERABLES Final Re sult [id number] See order comments [place] [address] * (ABNORMAL) Urinalysis with microscopic (03/01/2024 12:25 PM EDT) Color Urine Yellow See orde r comments Appearance Urine Clear See order comments pH Urine 5.5 5.0 - 9.0 See order comments Glucose Urine Negative Negative mg/dL See order comments Blood, Urine Trace(A) Negative See ord er comments Specific [place] Urine 1.020 1.005 - 1.025 See order comments Protein Urine Negative Neg-Trace mg/dL See order comments Ketones, Urine Negative Negative mg/dL See order comments Nitrite, Urine Positive(A) Negative See order comments Leukocyte Esterase Urine Small (1+)(A) Negative See order comments RBC, Urine 0-2 0 - 2 /HPF See orde r comments WBC 11-20(A) 0 - 5 /HPF See order comments Squamous Epithelial, Urine 0-2 0 - 2 /HPF See order comments Bacteria, Urine 4+ None Seen See order comments Hyaline Casts, Urine 0-2 0 - 2 /LPF See order comments 03/01/2024 12:2 5 PM EDT 03/01/2024 12:25 PM EDT us Alejandro Benz MD LAB URINE ORDERABLES Edited R esult - Final Performing Organization Address [facility] de Phone Number [place] See order comments [place] [address] * Creatinine (03/01/2024 11:41 AM EDT) Creatinine Serum 0.99 0.5 - 1.4 mg/dL See order comments eGFR 58 See order comments Comment: NOTE: ??For -Dominican individuals, multiply the result ? by 1.210. Chronic Kidney Disease: ??Estimated GFR < 60 mL/min/1.73m2 Severe Kidney Disease: ??Estimated GFR < 15 mL/min/1.73m2 03/01/2024 11:4 1 AM EDT 03/01/2024 11:41 AM EDT us Alejandro Benz MD LAB BLOOD ORDERABLES Final Re sult Performing Organization Address [facility] de Phone Number [place] See order comments [place] [address] * (ABNORMAL) BUN (03/01/2024 11:41 AM EDT) BUN 17(H) 9 - 16 mg/dL See order comments 03/01/2024 11:4 1 AM EDT 03/01/2024 11:41 AM EDT us Alejandro Benz MD LAB BLOOD ORDERABLES Final Re sult Performing Organization Address [facility] de [facility] See order comments [place] [address] * Calcium (03/01/2024 11:41 AM EDT) Calcium 8.8 8.4 - 10.2 mg/dL See order comments 03/01/2024 11:4 1 AM EDT 03/01/2024 11:41 AM EDT us Alejandro Benz MD LAB BLOOD ORDERABLES Final Re sult Performing Organization Address [facility] de Phone [facility] See order comments [place] [address] * (ABNORMAL) Electrolyte panel (03/01/2024 11:41 AM EDT) Sodium 142 135 - 145 mmol/L See order comments Potassium 4.5 3.3 - 5.1 mmol/L See order comments Chloride 112(H) 96 - 108 mmol/L See order comments Bicarbonate (CO2) 24 22 - 29 mmol/L See order comments Anion Gap 11(L) 12 - 20 See order comments 03/01/2024 11:4 1 AM EDT 03/01/2024 11:41 AM EDT us Alejandro Benz MD LAB BLOOD ORDERABLES Final Re sult [id number] See order comments [place] [address] from Last 3 Months Insurance [facility] MEDICAID [employer] MED[employer]ID Care Teams [employer] Relationship Specialty Start Date End Date Hung Montelongo MD [address] [place] [address] PCP - General 05/11/20
== END 2024-05-21 14:17 | disposition home or self-care (01) ==
PROVIDERS: PCP Internal Medicine; Visit Provider Physician Assistant Medical
DX: E66.811 Obesity, class 1 (principal); E66.09 Other obesity due to excess calories; Z68.30 Body mass index [BMI] 30.0-30.9, adult; E66.3 Overweight; G47.33 Obstructive sleep apnea (adult) (pediatric); F33.9 Major depressive disorder, recurrent, unspecified; F51.01 Primary insomnia
CPT/HCPCS: 99213

== ENCOUNTER → 2024-05-21 13:07 | Outpatient (BNVA) | payer OTHER, SELFPAY | PROVIDERS: PCP Internal Medicine; Visit Provider Nurse Practitioner Family | DX: E66.09 Other obesity due to excess calories (principal); E66.811 Obesity, class 1; F33.9 Major depressive disorder, recurrent, unspecified; F51.01 Primary insomnia; Z68.30 Body mass index [BMI] 30.0-30.9, adult; Z99.89 Dependence on other enabling machines and devices | CPT/HCPCS: 99212 ==

== ENCOUNTER 2024-05-23 10:22 | Outpatient (AMB) | payer OTHER, SELFPAY ==
--- NOTE | 2024-05-23 10:26 | A.OFFVIS_ITS ---
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 She is doing well with no skin care instructor concerns. She reports dizziness now, history of vertigo. The exam was paused and a nurse was called to the room to assess for medical wellness with the additional blood pressure check and water for hydrat ion provided. She denies any chest pain shortness of breath, currently taking antibiotics on her last dose today for UTI admits to having coffee this morning with something to eat. She is accompanied by her who is in the waiting room. Hysterectomy due to heavy menstrual bleeding. Last mammogram; 2023. Colonoscopy is UTD. Denies any family history of ovarian or colon cancer. Family history of breast cancer. [facility] Medical History Left breast mass Pulmonary nodules Chronic kidney disease, stage III (moderate) Obesity (BMI 30-39.9) Renal cyst Diverticulosis Tubular adenoma Asthma Spondylosis of lumbar spine Sacroiliitis Dizziness of unknown etiology Chronic constipation Hx of schizophrenia Panic attacks PTSD (post-traumatic stress disorder) Dyspareunia Pyelonephritis Ingrown toenail Iron deficiency anemia Major depression, recurrent Anxiety Insomnia Tremor Orthostatic hypotension Incisional hernia without obstruction or gangrene Avascular necrosis of femoral head Bilateral carpal tunnel syndrome Peroneal neuropathy Lumbar degenerative disc disease Vitamin D deficiency GERD (gastroesophageal reflux disease) Migraine Hyperlipidemia Surgical History History of left nephrectomy (~1999) History of colonoscopy History of surgery Hx of cystoscopy History of bilateral breast reduction surgery History of hysterectomy History of cholecystectomy History of endoscopy (~06/2016) History of bladder repair surgery (~03/2015) S/P cystoscopy (~07/30/12) S/P panniculectomy History of hernia repair (~03/29/10) History of bladder surgery (~10/2009) History of gastric bypass (~2008) History of incisional hernia repair (~1999) Hx of umbilical hernia repair (~1999) H/O left nephrectomy S/P laparoscopic sleeve gastrectomy Family History Father Liver cancer Mother Breast cancer Sister Lung cancer Other Mental health problem Social History Household Members: Family Housing: House Do you presently have visiting nurse or other home services: No Alcohol intake: never Patient Tobacco Use Status: Never used Tobacco e-Cigarette/Vaping Use: Never Used Second Hand Smoke Exposure: No Advance Directives Date on File: 07/12/21 service: No Current occupational status: disabled Sexual orientation: Straight/Heterosexual Gender identity: Female Cognitive needs: No Hearing needs: No Vision needs: Yes Female Reproductive History Menstrual Age of Menarche: 13 Menopause type: surgical Total pregnancies: 4 Full term: 4 Number of Living Children: 4 Date of Mammogram: 11/30/23 (Birad 1) Date of last Bone Density Screenin11/30/23 Review of Systems Const All systems reviewed & are unremarkable except as noted in HPI and below Reports as per HPI Eyes Reports no additional complaints ENT Reports no additional complaints Card Reports no additional complaints Resp Reports no additional complaints GI Reports as per HPI and Reports no additional complaints Reports as per HPI Musc Reports no additional complaints Skin/Breast Reports as per HPI Neuro Reports no additional complaints Psych Reports no additional complaints Endo Reports no additional complaints Catarino/Lymph Reports no additional complaints Aller/Immun Reports no additional complaints Physical Exam Vital Signs: Last Vital Signs BP 102/64 05/23/24 10:27 BMI result Body Mass Index 29.4 Const General: cooperative, healthy appearing, no acute distress, well developed and alert Orientation/consciousness: patient oriented x3 HEENT Head: Yes normal to inspection Eyes General: appearance normal, both eyes and all related structures Neck Neck: Yes normal visual inspection Thyroid: Thyroid normal Chest Other: Breast reduction scarring, mass at 07:00 o'clock left breast Chest palpation & inspection: normal inspection of the chest and other (no puckering, dimpling, peau de orange, retraction, discharge, masses) Breast/axilla inspection: normal inspection of the breasts Breast/axilla palpation: normal palpation of the breasts Resp Effort & Inspection: normal respiratory effort GI Inspection: Yes normal to inspection and Yes scar Palpation (GI): Soft to palpation Rectal Exam - Female: deferred General: Yes bladder normal to palpation External Female Exam: normal external appearance and normal appearance of the urethra Speculum Exam - Vagina: normal appearance of the vagina, normal palpation, normal vaginal discharge and vagina atrophic Speculum Exam - Cervix: Cervix absent (Vaginal cuff lesions or nodules) Bimanual exam- vagina & uterus: normal bimanual exam, normal palpation, bladder normal to palpation and uterus absent Bimanual Exam- Adnexa, other: no masses Skin General skin exam: no rashes or lesions noted Rashes: no rashes Neuro General: patient oriented x3 Cognition (Neuro): normal cognition Extrem General: Yes normal to inspection Psych Affect: Blunted affect present Attitude: cooperative Thought process: Normal thought process present Assessment & Plan Assessment & Plan (1) Encounter for well woman exam with routine gynecological exam: Code(s): Z01.419 - Encounter for gynecological examination (general) (routine) without abnormal findings Category: Medical (2) Left breast mass: Code(s): N63.20 - Unspecified lump in the left breast, unspecified quadrant Category: Medical Qualifiers: Breast mass location: unspecified quadrant Qualified Code(s): N63.20 - Unspecified lump in the left breast, unspecified quadrant Plan: Plan workup with diagnostic mammogram and left breast ultrasound. Follow up pending results for plan of care may include surgical referral if indicated. The patient expressed understanding and agreement with the plan of care. All of her questions and concerns were addressed to the best of my ability. Additional time spent 10 minutes with the orders, discussion of plan of care and findings with the use of spanish interpreter/translator. (3) Vertigo: Code(s): R42 - Dizziness and giddiness Plan: Fluids provided, advised to see your primary care for a follow up. Additional time spent assessing 10 minutes providing assistance for wheelchair use coordinating with nursing staff for for further evaluation. Plan Discussed: Current recommendations for pap smears per ASCCP guidelines. Breast awareness, periodic self breast exams and yearly mammogram. Maintain a healthy lifestyle, well balanced diet including Calcium 1,200 mg and Vitamin D 600 IU daily, and routine exercise. Contact the office with any postmenopausal bleeding. Patient verbalizes understanding and agrees to the plan of care. She was given opportunity to ask questions and all questions were answered to the best of my ability. RTO in 1 year for annual skin care instructor exam. This note is constructed using voice recognition software. While every effort has been made to ensure accuracy, part maker errors may have been included. Orders: Orders MM tomosynthesis diagnostic BI Today N63.20 - Unspecified lump in the left breast, unspecified quadrant US breast LT complete Today N63.20 - Unspecified lump in the left breast, unspecified quadrant Coding Level of Care Code Est Pt Level 2 (79928) Est Pt Prev Care 40-64y(82811) Diagnoses Encounter for well woman exam with routine gynecological exam Z01.419 Mass of left breast, unspecified quadrant N63.20 Breast mass location: unspecified quadrant Vertigo R42
[2024-05-23 10:27] VITALS: BP 102/64; BMI 29.4
== END 2024-05-23 11:20 | disposition home or self-care (01) ==
LOC: HO.HWS 10:22
PROVIDERS: PCP Internal Medicine; Visit Provider Advanced Practice Midwife
DX: Z01.419 Encounter for gynecological examination (general) (routine) without abnormal findings (principal); N63.20 Unspecified lump in the left breast, unspecified quadrant; R42 Dizziness and giddiness
CPT/HCPCS: 99213; 99396; 99459

== ENCOUNTER → 2024-05-23 10:22 | Outpatient (BNVA) | payer OTHER, SELFPAY | PROVIDERS: PCP Internal Medicine; Visit Provider Advanced Practice Midwife | DX: Z01.419 Encounter for gynecological examination (general) (routine) without abnormal findings (principal); N63.20 Unspecified lump in the left breast, unspecified quadrant; R42 Dizziness and giddiness | CPT/HCPCS: 99212; 99396; 99459 ==

== ENCOUNTER 2024-05-29 10:41 | Outpatient (REF) | payer OTHER, SELFPAY ==
--- NOTE | 2024-05-29 11:44 | PM.PROC ---
Brief Operative Note Date of procedure: 05/29/24 Pre-op diagnosis: left inferior 1.7 cm and right superior 1.5 cm thyroid nodule FNA biopsies Post-op diagnosis: same Procedure: THYROID FINE NEEDLE ASPIRATION PROCEDURE NOTE ? PROCEDURE PERFORMED: Ultrasound-guided FNA of thyroid nodule ? OPERATORS: Dr. Luna Mejia ? INDICATION: left inferior 1.7 cm and right superior 1.5 cm thyroid nodules; FNA performed to assess for malignancy ? DESCRIPTION OF PROCEDURE: The indications for FNA (to assess for malignancy) were reviewed with the patient in detail. Potential complications (e.g., bleeding, infection, damage to local structures, absence of clear diagnosis after FNA) were reviewed. Alternatives to FNA including conservative observation or surgery were described. The patient understood and agreed to proceed. This was documented by the signing of the written informed consent form. A time-out was performed to confirm the patient's identity and the site of planned FNA. The nodules of interest were identified using ultrasound (14 MHz linear array probe). The sites of FNA was then draped in the usual fashion and carefully cleaned and prepared using alcohol swabs. The skin at the previously-identified sites of needle insertion was iced and sprayed with numbing spray. For the left inferior 1.7 cm nodule first Under ultrasound guidance, 4__ passes were performed using a 1.5-inch, 25-gauge needle, and sample was obtained via capillary action. The needle tip was clearly visualized to be within the nodule at the time of sampling for _4_ of _4_ passes Then for the right superior 1.5 cm nodule Under ultrasound guidance, 5__ passes were performed using a 1.5-inch, 25-gauge needle, and sample was obtained via capillary action. The needle tip was clearly visualized to be within the nodule at the time of sampling for _3_ of _5_ passes. The patient tolerated the procedure well. There were no immediate complications. A small adhesive bandage was applied, and the patient was advised to take acetaminophen (rather than NSAIDs) for any discomfort and to report any signs of inflammation/infection or marked swelling. IMPRESSION: Technically successful ultrasound-guided fine needle aspiration of left inferior 1.7 cm and right superior 1.5 cm thyroid nodules . PLAN: The patient was advised that I will provide follow-up regarding the cytology result and any subsequent plans. Luna Mejia MD Endocrinology Attending Condition: stable Disposition: same day
--- OUTSIDE RECORDS SUMMARY | 2024-05-29 12:47 | XMS_ITS | Clinical Summary ---
Author Organization [facility] Facility Address [address] [place] [id number] Care Team Providers Care Tree Puller Name Role Phone Hung Montelongo MD Primary Care Provider [phone] Allergies Active Allergy Reactions Criticality Noted Date [...] Orders Only [facility] [address] [address] Alejandro Benz MD from Last [...] Office Visit [facility] [address] [place] [address] Alejandro Benz MD [address] [address] Health Maintenance Due Date Last [...] MD LAB URINE ORDERABLES Final Re sult [place] See order comments [place] [address] * Albumin, urine, random (03/01/2024 12:25 PM [...] order comments [place] [address] * (ABNORMAL) Urinalysis with microscopic (03/01/2024 12:25 PM EDT) Color Urine Yellow See orde r comments Appearance Urine Clear See order comments pH Urine 5.5 5.0 - 9.0 See order comments Glucose Urine Negative Negative mg/dL See order comments Blood, Urine Trace(A) Negative See ord er comments Specific [place] Urine 1.020 1.005 - 1.025 See order [...] R esult - Final Performing Organization Address [facility] de Phone Number [id number] See order comments [place] [address] * Creatinine (03/01/2024 11:41 AM EDT) Creatinine Serum 0.99 0.5 - 1.4 mg/dL See order comments eGFR 58 See order comments Comment: NOTE: ??For -[place] individuals, multiply the result ? by 1.210. Chronic Kidney Disease: ??Estimated GFR < 60 mL/min/1.73m2 Severe Kidney Disease: ??Estimated GFR < 15 mL/min/1.73m2 03/01/2024 11:4 1 AM EDT 03/01/2024 11:41 AM EDT us Alejandro Benz MD LAB BLOOD ORDERABLES Final Re sult Performing Organization Address [facility] de Phone Number [id number] See order comments [place] [address] * (ABNORMAL) BUN (03/01/2024 11:41 AM EDT) BUN 17(H) 9 - 16 mg/dL See order comments 03/01/2024 11:4 1 AM EDT 03/01/2024 11:41 AM EDT us Alejandro Benz MD LAB BLOOD ORDERABLES Final Re sult Performing Organization Address [facility] de Phone Number [facility] See order comments [place] [address] * Calcium (03/01/2024 11:41 AM EDT) Calcium 8.8 8.4 - 10.2 mg/dL See order comments 03/01/2024 11:4 1 AM EDT 03/01/2024 11:41 AM EDT us Alejandro Benz MD LAB BLOOD ORDERABLES Final Re sult Performing Organization Address [facility] de Phone Number [facility] See order comments [place] [address] * (ABNORMAL) Electrolyte panel (03/01/2024 11:41 AM [...] order comments [place] [address] from Last 3 Months Insurance [facility] MEDICAID [facility] MEDICAID Care Teams Tree Puller Relationship Specialty Start Date End Date Hung Montelongo MD [address] [place] [address] PCP - General 05/11/20
== END 2024-05-29 10:42 | disposition home or self-care (01) ==
LOC: HO.US 10:41
PROVIDERS: PCP Internal Medicine; Visit Provider Student in an Organized Health Care Education/Training Program
DX: E04.2 Nontoxic multinodular goiter (principal)
CPT/HCPCS: 10005; 10006; 88173; 88305

== ENCOUNTER → 2024-05-29 10:41 | Outpatient (BNV) | payer OTHER, SELFPAY | PROVIDERS: PCP Internal Medicine; Visit Provider Student in an Organized Health Care Education/Training Program | DX: E04.2 Nontoxic multinodular goiter (principal) | CPT/HCPCS: 10005; 10006 ==

== ENCOUNTER 2024-06-04 07:43 | Outpatient (REF) | payer OTHER, SELFPAY ==
--- OUTSIDE RECORDS SUMMARY | 2024-06-04 07:47 | XMS_ITS | Encounter Summary ---
Author Organization [employer] Address [address] [place] [address] [address] [place] [address] Care Team Providers Care Debone Supervisor Name Role Phone Unavailable Primary Care Provider Unavailabl e Reason for Visit * Reason Comments Routine Cleaning Dental Exam Encounter Details Date Type Department Care Team ([facility] st Contact Info) Description 05/22/2024 1:00 PM EST Office Visit [facility] ADULT DENTAL [address] [place] [address] Leatha Centeno Dental calculus (Primary Dx); Dental plaque Social History Tobacco Use Types Packs/Day Years Used Date Smoking Tobacco: Never Passive Smoke Exposure: Never Smokeless Tobacco: Never Comments Unknown Sex and Gender Information Value Date Recorded Sex Assigned at Female 02/28/2022 10:17 AM EDT Legal Sex Female 10:17 AM EDT Gender Identity Female 02/28/2022 10:17 AM EDT Sexual Orientation Straight 02/28/2022 10 :17 AM EDT documented as of this encounter Last Filed Vital Signs Vital Sign Reading Time Taken Comments Blood Pressure 142/88 05/22/2024 1:20 PM EST Pulse - - Temperature - - Respiratory Rate - - Oxygen Saturation - - Inhaled Oxygen Concentration - - Weight - - Height - - Body Mass Index - - documented in this encounter Progress Notes * Ghada Soriano DDS - 05/22/2024 1:00 PM EST * Leatha Centeno - 05/22/2024 1:00 PM EST Patient ID: Xenia Siu is a 53 y.o. female. Time Out: Timeout Date: 05/22/24, Timeout Time: 1300 (Dental Prophy Adult) Location: [facility] Tooth: Maxilla and Mandible Procedure: Exam, X-rays, and Prophylaxis Verified the above with patient, pier master assistant, and provider. Confirmed via patient's chart, intraorally and by radiographs. Cold Rolling Coordinator: not applicable Medical Hx: Vitals: Blood pressure (!) 142/88. Medications, Med Hx reviewed with patient and updated in chart. Treatment Provided Dental procedures in this visit D1110 - PROPHYLAXIS - ADULT (Completed) Service provider: Leatha Centeno Billjr provider: Brennon Quevedo DDS D0210 - DIAGNOSTIC - DIAGNOSTIC IMAGING - INTRAORAL - COMPREHENSIVE SERIES OF RADIOGRAPHIC IMAGES (Completed) Service provider: Leatha Palma provider: Brennon Quevedo DDS D1330 - ORAL HYGIENE INSTRUCTIONS (Completed) Service provider: Leatha Palma provider: Brennon Quevedo DDS [id number] - ADJUNCTIVE GENERAL SERVICES - PROFESSIONAL VISITS - CASE PRESENTATION, SUBSEQUENT TO DETAILED AND EXTENSIVE TREATMENT PLANNING (Completed) Service provider: Leatha Centeno Billjr provider: Brennon Quevedo DDS Instruments Used: Ultrasonic Scalers, Hand Scalers, Prophy angle, and floss Fluoride: N/A Oral Cancer Screening: No lesions Head/Neck Exam: No Lesions Calculus: Moderate and Generalized Plaque: Light and Generalized Stain: Light and Generalized Bleeding: Light and Generalized Gingiva: Perio Charting Completed and Inflamed OH: Fair Perio Chart: Completed Oral hygiene instructions provided to patient including brushing technique and flossing. Recommendations: [place] two times daily, modified thorpe technique, Floss daily, Electric toothbrush, Soft bristle toothbrush, [place] Tongue, Anti-sensitivity toothpaste Recall Frequency: 6 mo NV: 6mrc Hygienist: Leatha Centeno RDH * Brennon Quevedo DDS - 05/22/2024 1:00 PM EST Dental procedures in this visit D1110 - PROPHYLAXIS - ADULT (Completed) Service provider: Leatha Palma provider: Brennon Quevedo DDS D0210 - DIAGNOSTIC - DIAGNOSTIC IMAGING - INTRAORAL - COMPREHENSIVE SERIES OF RADIOGRAPHIC IMAGES (Completed) Service provider: Leatha Centeno Billing provider: Brennon Quevedo DDS D1330 - ORAL HYGIENE INSTRUCTIONS (Completed) Service provider: Leatha Centeno Billing provider: Brennon Quevedo DDS D9450 - ADJUNCTIVE GENERAL SERVICES - PROFESSIONAL VISITS - CASE PRESENTATION, SUBSEQUENT TO DETAILED AND EXTENSIVE TREATMENT PLANNING (Completed) Service provider: Leatha Centeno Billing provider: Brennon Quevedo DDS D0120 - PERIODIC ORAL EVALUATION - ESTABLISHED PATIENT (Completed) Service provider: Brennon Quevedo DDS Billing provider: Brennon Quevedo DDS Patient ID: Xenia Siu is a 53 y.o. female. Time Out: Timeout Date: 05/22/24, Timeout Time: 1300 (Dental Prophy Adult) Location: [facility] Tooth: Maxilla and Mandible Procedure: Exam, X-rays, and Prophylaxis Verified the above with patient, pier master assistant, and provider. Confirmed via patient's chart, intraorally and by radiographs. Cold Rolling Coordinator: not applicable Chief Complaint Patient presents with Routine Cleaning Dental Exam Medical Hx: Vitals: Blood pressure (!) 142/88. Past Medical History: Diagnosis Date Anemia Anxiety Asthma GERD (gastroesophageal reflux disease) History of kidney removal Left side Hypertension Kidney damage Right side stage 3 Pulmonary embolism, blood-clot, obstetric Medications: Outpatient Encounter Medications as of 05/22/2024 Medication Sig Dispense Refill benztropine (Cogentin) 1 MG tablet Take 1 mg by mouth if needed in the morning and at bedtime. cholecalciferol (Vitamin D-3) 25 MCG (1000 UT) capsule Take 1,000 Units by mouth. clonazePAM (KlonoPIN) 0.5 MG tablet Take 0.5 mg by mouth if needed in the morning, at noon, and at bedtime. ferrous sulfate 325 (65 Fe) MG tablet TOME WU TABLETA TODOS LOS D furosemide (Lasix) 40 MG tablet Take 80 mg by mouth in the morning. gabapentin (Neurontin) 400 MG capsule haloperidol (Haldol) 5 MG tablet Take 10 mg by mouth. LORazepam (Ativan) 1 MG tablet TOME WU TABLETA DOS VECES AL D A CUANDO SEA NECESARIO midodrine (Proamatine) 10 MG tablet Take 10 mg by mouth 4 times daily. naproxen (Naprosyn) 500 MG tablet Take 500 mg by mouth. omeprazole (PriLOSEC) [address] capsule Take 20 mg by mouth. oxybutynin XL (Ditropan-XL) 5 MG 24 hr tablet TOME WU TABLETA TODOS LOS D potassium citrate CR (Urocit-K-5) 5 mEq ER tablet PLEASE SEE ATTACHED FOR DETAILED DIRECTIONS risperiDONE (RisperDAL) 0.5 MG tablet Take 0.5 mg by mouth. sennosides (Senokot) 8.6 MG tablet Take 1 tablet by mouth. SUMAtriptan (Imitrex) 50 MG tablet Take 50 mg by mouth if needed in the morning and at bedtime. topiramate (Topamax) 25 MG tablet TAKE 1 TABLET BY MOUTH AT BEDTIME JENNA 1 A [place] traMADol (Ultram) 50 MG tablet Take 50 mg by mouth every 6 (six) hours if needed. traZODone (Desyrel) 100 MG tablet Take 50 mg by mouth if needed at bedtime. Ventolin HFA 108 (90 Base) MCG/ACT inhaler TAKE 2 PUFFS INHALED EVERY 6 HOURS NEEDED FOR SHORTNESS OF BREATH OR WHEEZING FOR 30 DAYS apixaban (Eliquis) 5 MG tablet Take 5 mg by mouth 2 times daily. Banophen 25 MG capsule TOME WU C PSULA RACHAEL VECES AL D A CUANDO SEA NECESARIO (Patient not taking:Reported on 05/22/2024) chlorhexidine (Peridex) 0.12 % solution Use 15 mL in the mouth or throat if needed (for mouthwash 15 ml for 30 seconds, swish and spit) for up to 14 days. 473 mL 0 lamoTRIgine (LaMICtal) 25 MG tablet Take 25 mg by mouth. (Patient not taking: Reported on 05/22/2024) meclizine (Antivert) 25 MG tablet Take 25 mg by mouth if needed in the morning, at noon, and at bedtime for dizziness. Melatonin 10 MG capsule Take by mouth. pravastatin (Pravachol) 10 MG tablet TOME WU TABLETA TODOS LOS D AL ACOSTARSE (Patient not taking: Reported on 05/22/2024) prazosin (Minipress) 1 MG capsule Take 1 mg by mouth if needed at bedtime. (Patient not taking: Reported on 05/22/2024) No facility-administered encounter medications on file as of 05/22/2024. Objective HPI Asymptomatic Head and Neck Exam: Lymph Nodes, Lips, Palate, Buccal Mucosa, Floor of Mouth, Tongue, Tonsils, Alveolar Ridges, Oropharynx, Salivary Ducts, and Vestibules normal appearance Details: Skin WNL OCS: negative Dental Exam As Charted Reference tooth chart for additional findings. Oral Cancer Risk: Low Risk Oral Hygiene Instructions: [place] two times daily, modified thorpe technique, Floss daily, Electric toothbrush, Soft bristle toothbrush, [place] Tongue Caries Risk Assessment: Low- no risk factor no new carious lesion noticed Assessment/Plan MARY X Ray Prophy Recall Patient tolerated procedure well, all questions answered and expressed understanding. Dismissed in good condition. NV: 6 mos recall Plater Production: Leatha Centeno Dentist: Brennon Quevedo DDS documented in this encounter Plan of Treatment Upcoming Encounters Date Type Department Care Team (Late st Contact Info) Description 11/20/2024 1:00 PM EDT Office Visit [facility] ADULT DENTAL [address] [place] [address] Leatha Centeno documented as of this encounter Procedures Procedure Name Priority Date/Time Associated Diagnosis Comments PROPHYLAXIS - ADULT Routine 05/22/2024 1 :00 PM EST Dental calculus Dental plaque PERIODIC ORAL EVALUATION - ESTABLISHED PATIENT Routine 05/22/2024 1:00 PM EST ORAL HYGIENE INSTRUCTIONS Routine 2024 1:00 PM EST Dental calculus Dental plaque DIAGNOSTIC - DIAGNOSTIC IMAGING - INTRAORAL - COMPREHENSIVE SERIES OF RADIOGRAPHIC IMAGES Routine 05/22/2024 1:00 PM EST ADJUNCTIVE GENERAL SERVICES - PROFESSIONAL VISITS - CASE PRESENTATION, SUBSEQUENT TO DETAILED AND EXTENSIVE TREATMENT PLANNING Routine 05/22/2024 1:00 PM EST documented in this encounter Visit Diagnoses Diagnosis Dental calculus- Primary Accretions on teeth Dental plaque Accretions on teeth documented in this encounter
--- OUTSIDE RECORDS SUMMARY | 2024-06-04 07:47 | XMS_ITS | Encounter Summary ---
Author Organization [employer] [facility] Address [address] [facility] [address] [place] [address] Care Team Providers Care Motorcycle Subassembler Name Role Phone Unavailable Primary Care Provider Unavailabl e Encounter Details Date Type Department Care Team (Latest Contact Info) Description 11/30/2020 Abstract [facility] CONVERSIONS Dental, Provider, DDS Social History Tobacco Use Types Packs/Day Years Used Date Smoking Tobacco: Never Assessed Comments Unknown Sex and Gender Information Value Date Recorded Sex Assigned at Female 02/28/2022 10:17 AM EDT Legal Sex Female 10:17 AM EDT Gender Identity Female 02/28/2022 10:17 AM EDT Sexual Orientation Straight 02/28/2022 10 :17 AM EDT documented as of this encounter Plan of Treatment Upcoming Encounters Date Type Department Care Team (Late st Contact Info) Description 11/20/2024 1:00 PM EDT Office Visit [facility] ADULT DENTAL [address] [place] [address] Leatha Centeno documented as of this encounter Visit Diagnoses Not on filedocumented in this encounter
--- OUTSIDE RECORDS SUMMARY | 2024-06-04 07:47 | XMS_ITS | Encounter Summary ---
Author Organization [employer] [facility] Address [address] [facility] [address] [address] [place] [address] Care Team Providers Care Pc Maintenance Technician Name Role Phone Unavailable Primary Care Provider Unavailabl e Encounter Details Date Type Department Care Team (Latest Contact Info) Description 01/20/[address] [facility] CONVERSIONS Dental, Provider, DDS Social History Tobacco [...] Description 11/20/2024 1:00 PM EDT Office Visit [facility] ADULT DENTAL [address] [place] [address] Leatha Centeno documented as of this encounter Visit Diagnoses Not on filedocumented in this encounter
--- OUTSIDE RECORDS SUMMARY | 2024-06-04 07:47 | XMS_ITS | Clinical Summary ---
Author Organization [facility] Address [address] [place] [id number] Care Team Providers Care Cesspool Cleaner Name Role Phone Hung Montelongo MD Primary Care Provider [phone] Allergies Active Allergy Reactions Criticality Noted Date [...] Date Chronic kidney disease, stage 2 (mild) 2 Chronic kidney disease stage 3 11/23/2020 Essential hypertension 11/23/2020 Renal stone 11/23/2020 Resolved Problems Problem Noted Date Diagnosed Date Resolved Date Pain in toe 10/05/2017 11/23/2020 Paronychia 10/05/2017 11/23/2020 Social History Tobacco Use Types Packs/Day Years [...] Office Visit [facility] [address] [place] [id number] Alejandro Benz MD [address] [facility] [address] [place] [address] Health Maintenance Due Date Last Done [...] Screening: Sigmoidoscopy 2018 Influenza Vaccine (#1) 2023 Insurance [facility] MEDICAID [facility] MEDICAID Care Teams Cesspool Cleaner Relationship Specialty Start Date End Date Hung Montelongo MD [address] [place] [address] PCP - General 05/11/20
--- OUTSIDE RECORDS SUMMARY | 2024-06-04 07:47 | XMS_ITS | Clinical Summary ---
Author Organization [employer] Address [address] [facility] [address] [place] [address] Care Team Providers Care Laboratory Sample Carrier Name Role Phone Unavailable Primary Care Provider Unavailabl e Allergies Active Allergy Reactions Criticality Noted Date Comments Acetaminophen 09/05/2022 Bupropion 05/17/2013 Citalopram 05/17/2013 Escitalopram 05/17/2013 Mirtazapine 05/17/2013 Prednisone 05/17/2013 Tramadol 05/17/2013 Medications Ventolin HFA 108 (90 Base) MCG/ACT inhaler TAKE 2 PUFFS INHALED EVERY 6 HOURS NEEDED FOR SHORTNESS OF BREATH OR WHEEZING FOR 30 DAYS 3 Active benztropine (Cogentin) 1 MG tablet Take 1 mg by mouth if needed in the morning and at bedtime. Active cholecalciferol (Vitamin D-3) 25 MCG (1000 UT) capsule Take 1,000 Units by mouth. 1 Active clonazePAM (KlonoPIN) 0.5 MG tablet Take 0.5 mg by mouth if needed in the morning, at noon, and at bedtime. Active Banophen 25 MG capsule TOME WU C PSULA RACHAEL VECES AL D A CUANDO SEA NECESARIO 3 Active ferrous sulfate 325 (65 Fe) MG tablet TOME WU TABLETA TODOS LOS D 3 Active furosemide (Lasix) 40 MG tablet Take 80 mg by mouth in the morning. Active gabapentin (Neurontin) 400 MG capsule 3 Active haloperidol (Haldol) 5 MG tablet Take 10 mg by mouth. Active lamoTRIgine (LaMICtal) 25 MG tablet Take 25 mg by mouth. Active LORazepam (Ativan) 1 MG tablet TOME WU TABLETA DOS VECES AL D A CUANDO SEA NECESARIO 3 Active midodrine (Proamatine) 10 MG tablet Take 10 mg by mouth 4 times daily. 1 Active naproxen (Naprosyn) 500 MG tablet Take 500 mg by mouth. Active omeprazole (PriLOSEC) [address] capsule Take 20 mg by mouth. Active oxybutynin XL (Ditropan-XL) 5 MG 24 hr tablet TOME WU TABLETA TODOS LOS D 3 Active potassium citrate CR (Urocit-K-5) 5 mEq ER tablet PLEASE SEE ATTACHED FOR DETAILED DIRECTIONS 3 Active pravastatin (Pravachol) 10 MG tablet TOME WU TABLETA TODOS LOS D AL ACOSTARSE 3 Active prazosin (Minipress) 1 MG capsule Take 1 mg by mouth if needed at bedtime. 1 Active risperiDONE (RisperDAL) 0.5 MG tablet Take 0.5 mg by mouth. Active sennosides (Senokot) 8.6 MG tablet Take 1 tablet by mouth. Active SUMAtriptan (Imitrex) 50 MG tablet Take 50 mg by mouth if needed in the morning and at bedtime. 1 Active traZODone (Desyrel) 100 MG tablet Take 50 mg by mouth if needed at bedtime. Active traMADol (Ultram) 50 MG tablet Take 50 mg by mouth every 6 (six) hours if needed. Active topiramate (Topamax) 25 MG tablet TAKE 1 TABLET BY MOUTH AT BEDTIME JENNA 1 A LA HORA DE ACOSTARTE 3 Active apixaban (Eliquis) 5 MG tablet Take 5 mg by mouth 2 times daily. Active meclizine (Antivert) 25 MG tablet Take 25 mg by mouth if needed in the morning, at noon, and at bedtime for dizziness. Active Melatonin 10 MG capsule Take by mouth. Activ e chlorhexidine (Peridex) 0.12 % solution Use 15 mL in the mouth or throat if needed (for mouthwash 15 ml for 30 seconds, swish and spit) for up to 14 days. 473 mL 5 02/05/20 25 Active Active Problems Problem Noted Date Diagnosed Date Laceration of right cheek 05/16/2023 Xerostomia 04/26/2023 Dental plaque 10/10/2022 Localized gingival recession, minimal 10/10/2022 Encounters Date Type Department Care Team Description 05/22/2024 1:00 PM EST Office Visit [facility] ADULT DENTAL [address] [place] [address] Leatha Centeno Dental calculus (Primary Dx); Dental plaque from Last 3 Months Social History Tobacco Use Types Packs/Day Years Used Date Smoking Tobacco: Never Passive Smoke Exposure: Never Smokeless Tobacco: Never Tobacco Cessation:Counseling Given: Not Answered Comments Unknown Sex and Gender Information Value Date Recorded Sex Assigned at Female 02/28/2022 10:17 AM EDT Legal Sex Female 10:17 AM EDT Gender Identity Female 02/28/2022 10:17 AM EDT Sexual Orientation Straight 02/28/2022 10 :17 AM EDT Last Filed Vital Signs Vital Sign Reading Time Taken Comments Blood Pressure 142/88 05/22/2024 1:20 PM EST Pulse 72 04/26/2023 1:02 PM EST Temperature - - Respiratory Rate - - Oxygen Saturation - - Inhaled Oxygen Concentration - - Weight - - Height - - Body Mass Index - - Plan of Treatment Upcoming Encounters Date Type Department Care Team (Late st Contact Info) Description 11/20/2024 1:00 PM EDT Office Visit [facility] ADULT DENTAL [address] [place] [address] Leatha Centeno Health Maintenance Due Date Last Done Comments CT Colonography 1969 Colonoscopy 1969 Colorectal Cancer Screening 1969 Depression Screening 1969 FIT DNA/Cologuard 1969 FIT 1969 FOBT 1969 HIV Screening 1969 Lipid Panel 1969 SDOH Screening 1969 Sigmoidoscopy 1969 Alcohol/Substance Use Screening 1981 Hepatitis C Screening 11/18/1987 Hepatitis B Vaccines (1 of 3 - 19+ 3-dose series) 1988 Pap Smear 1990 Cervical Cancer Screening 11/18/1999 HPV/Cotest 11/18/1999 Pneumococcal Vaccine: 50+ Years (2 of 2 - PCV) 11/08/2008 11/09/2007 Pneumococcal Vaccine: Pediatrics (0 to 5 Years) and At-Risk Patients (6 to 49) Years) (2 of 2 - PCV) 11/08/2008 11/09/2007 Mammogram 2009 COVID-19 Vaccine ( season) 2023 04/12/2023, 01/11/2022, 03/01/2021, Additional history exists Dental Oral Exam 11/20/2024 05/22/2024, , 10/10/2022, Additional history exists Dental Prophylaxis 11/20/2024 05/22/2024, 1 06/27/2022, 10/10/2022, Additional history exists Tobacco Screening 05/22/2025 05/22/2024 Dental X-Ray: Bitewings 05/23/2025 05/22/19, 05/16/2023, 04/26/2023, Additional history exists Dental X-Ray: Full Mouth 05/23/2027 025, 11/30/2020, 05/17/2013, Additional history exists DTaP/Tdap/Td Vaccines (3 - Td or Tdap) 04/09/2029 04/09/2019, 04/04/2009 RSV Patients and Patients Aged 60 years or older (1 - 1-dose 75+ series) 2044 Zoster Vaccines Completed 04/03/2022, 02/01/2022 Influenza Vaccine Completed 01/24/2024, , 04/11/2022, Additional history exists HIB Vaccines Aged Out No longer eligi ble based on patient's age to complete this topic HPV Vaccines Aged Out No longer eligi ble based on patient's age to complete this topic Hepatitis A Vaccines Aged Out No long er eligible based on patient's age to complete this topic IPV Vaccines Aged Out No longer eligi ble based on patient's age to complete this topic Meningococcal Vaccine Aged Out No kae estebna eligible based on patient's age to complete this topic RSV under 20 months Aged Out No longe r eligible based on patient's age to complete this topic Rotavirus Vaccines Aged Out No longer eligible based on patient's age to complete this topic Procedures Procedure Name Priority Date/Time Associated Diagnosis Comments PERIODIC ORAL EVALUATION - ESTABLISHED PATIENT Routine 05/22/2024 1:00 PM EST ORAL HYGIENE INSTRUCTIONS Routine 2024 1:00 PM EST Dental calculus Dental plaque DIAGNOSTIC - DIAGNOSTIC IMAGING - INTRAORAL - COMPREHENSIVE SERIES OF RADIOGRAPHIC IMAGES Routine 05/22/2024 1:00 PM EST PROPHYLAXIS - ADULT Routine 05/22/2024 1 :00 PM EST Dental calculus Dental plaque ADJUNCTIVE GENERAL SERVICES - PROFESSIONAL VISITS - CASE PRESENTATION, SUBSEQUENT TO DETAILED AND EXTENSIVE TREATMENT PLANNING Routine 05/22/2024 1:00 PM EST from Last 3 Months Insurance [facility] MEDICA[facility] STAND ADULT
[2024-06-04 07:59] LABS: MANUAL DIFF FLAG NO
[2024-06-04 08:01] LABS: Basophils Absolute Auto 0.1 X10*3/uL (0.0-0.2); Basophils Percent Auto 0.8 % (0-2); Eosinophils Absolute Auto 0.1 X10*3/uL (0.0-0.4); Eosinophils Percent Auto 1.2 % (0-4); Imm Gran Abs Auto 0.01 X10*3/uL (0.00-0.03); Imm Gran Pct Auto 0.2 % (0.0-0.4); Lymphocytes Absolute Auto 0.8 X10*3/uL (1.2-4.9); Lymphocytes Percent Auto 12.9 % (20-40); Mean Corpuscular HGB Conc 34.1 g/dl (31.0-35.0); Mean Corpuscular Hemoglobin 33.4 pg (27.0-33.0); Mean Corpuscular Volume 97.9 fL (80.0-98.0); Mean Platelet Volume 9.2 fL (9.4-12.3); Monocytes Absolute Auto 0.3 X10*3/uL (0.1-1.2); Monocytes Percent Auto 4.9 % (2-11); Neutrophils Absolute Auto 4.7 x10*3/uL (2.0-8.3); Platelet Count 245 X10*3/uL (160-400); Red Blood Count 4.19 X10*6/uL (4.20-5.50); Red Cell Distribution Width 11.9 % (11.0-16.0); White Blood Count 5.9 X10*3/uL (4.8-10.8)
[2024-06-04 08:37] LABS: Alanine Aminotransferase 50 U/L (0-31); Albumin Level 3.9 g/dL (3.5-5.0); Alkaline Phosphatase 92 U/L (39-117); Anion Gap 18 (12-20); Aspartate Amino Transferase 31 U/L (5-31); Bilirubin Total 1.1 mg/dL (0.0-1.0); Blood Urea Nitrogen 12 mg/dL (9-16); Calcium 9.3 mg/dL (8.4-10.2); Carbon Dioxide 24 mmol/L (22-29); Chloride 105 mmol/L (96-108); Cholesterol 245 mg/dL (<200); Estimated Glomerular Filt Rate 53; Glucose Fasting 90 mg/dL (60-99); HDL Cholesterol 59 mg/dL (>40); LDL Cholesterol Calculated 169 mg/dL (<100); Potassium 4.4 mmol/L (3.3-5.1); Sodium 143 mmol/L (135-145); Total Protein 7.4 g/dL (6.5-8.0); Triglycerides 88 mg/dL (<150)
[2024-06-04 08:41] LABS: Appearance Urine Clear; Color Urine Yellow; Glucose Urine UA Negative (Negative); Leukocyte Esterase Urine Negative (Negative); Nitrite Urine Negative (Negative); Specific Gravity - Urine 1.015 (1.005-1.025); UMIC TRIGGER UACC YES; Urine Blood Large (3+) (Negative); Urine Ketones Negative (Negative); Urine Protein Negative (Neg-Trace)
[2024-06-04 08:46] LABS: Bacteria Urine None Seen (None Seen); Hyaline Casts Urine 0-2 /LPF (0-2); RBC Urine >20 /HPF (0-2); Squamous Epithelial Cell Urine 0-2 /HPF (0-2); WBC Urine 0-5 /HPF (0-5)
[2024-06-04 08:53] LABS: TSH reflex Free T4 1.59 uIU/mL (0.32-4.0)
== END 2024-06-04 07:44 | disposition home or self-care (01) ==
LOC: HO.LAB 07:43
PROVIDERS: PCP Internal Medicine; Visit Provider Internal Medicine
DX: D64.9 Anemia, unspecified (principal); E78.00 Pure hypercholesterolemia, unspecified
CPT/HCPCS: 36415; 80053; 80061; 81001; 84443; 85025

== ENCOUNTER 2024-06-07 14:16 | Outpatient (AMB) | payer OTHER, SELFPAY ==
[2024-06-07 14:21] VITALS: BP 110/70; PULSE 65; O2SAT 97; BMI 28.5
--- NOTE | 2024-06-07 14:21 | A.OFFPC_ITS ---
Vital Signs 06/07/24 14:21 Height 5 ft 3 in Weight 161 lb BMI 28.5 BP 110/70 Blood Pressure Location Lt brachial Position Sitting Pulse 65 Pulse Source Pulse Oximeter Pulse Oximetry (%) 97 Oxygen Delivery Method Room Air Intake Visit Reasons: 3mth f/u Electrocardiogram Technician Required: No Accompanied by: Self / Same As Patient Allergies atorvastatin Adverse Reaction (Intermediate, Verified 06/07/24 15:48) elevated LFTs rosuvastatin Adverse Reaction (Intermediate, Verified 06/09/24 04:56) Elevated LFTs acetaminophen Adverse Reaction (Unknown, Verified 06/07/24 15:48) Unknown Medication List - Last Reconciled 06/07/24 by Hung Montelongo MD albuterol sulfate 90 mcg/actuation (Ventolin HFA) 2 puffs inhalation Q6H PRN 30 days apixaban (Eliquis) 5 mg PO BID 30 days bisacodyl (Dulcolax (bisacodyl)) 10 mg (2 x 5 mg) PO BEDTIME blood pressure monitor As directed [id number]-eoobnznvryxey-suwl 50-325-40 mg 2 tabs PO Q6H PRN 30 days cariprazine (Vraylar) 4.5 mg (3 x 1.5 mg) PO DAILY 30 days cholecalciferol (vitamin D3) (Vitamin D3) 25 mcg PO DAILY 90 days [CPAP device and all related supplies As directed] cyanocobalamin (vitamin B-12) 500 mcg PO DAILY 30 days diphenhydramine HCl (Banophen) 25 mg PO TID PRN 30 days docusate sodium 100 mg PO DAILY enoxaparin (Lovenox) 60 mg (0.6 mL) subcut Q12H 3 days estradiol 0.01%(0.1mg/gram) vaginally 3 times a week; pea sized amount to urethra 3 times a week 90 days ferrous sulfate 325 mg PO DAILY 90 days gabapentin 800 mg PO TID 30 days hydrocortisone 2.5% 1 appl NM BID-QID PRN linaclotide (Linzess) 145 mcg PO DAILY lorazepam 1 mg PO BID PRN 30 days meclizine 25 mg PO TID PRN 30 days melatonin 10 mg (2 x 5 mg) PO BEDTIME PRN 30 days midodrine 10 mg PO TID 30 days mometasone 0.1% 1 appl topical DAILY PRN naproxen 500 mg PO DAILY nitrofurantoin monohyd/m-cryst 100 mg (Macrobid) 100 mg PO DAILY 30 days potassium citrate ER 5 mEq PO DAILY sumatriptan succinate 50 mg PO DAILY topiramate 100 mg PO DAILY 30 days tramadol 100 mg (2 x 50 mg) PO Q8H PRN 30 days triamcinolone acetonide 0.1% 1 appl topical DAILY Tobacco use date assessed: 06/07/24 Dental Screening Dental Screen Date: 06/07/24 Did you have a dental visit in the last 12 months?: Yes Did you have a dental problem in the last 6 months where you did not have access to dental care?: No Was dental information given to patient?: Patient has dentist HPI 3mth f/u HPI Details Patient comes in today for her follow-up visit States that she has been experiencing increased itching all over and she suspects that these are due to her Midodrine and would like to know if she can stop taking this medication States that she feels okay otherwise She denies any increased headaches or dizziness lately Denies any chest pains, no increased shortness of breath No nausea/vomiting, no abdominal pain No change in bowel habits noted She continues to complain of increased pain over her lower back She is now following up again with pain management and was sent for physical therapy, after which she will be reassessed for back injections She just started physical therapy last week and will continue to see physical therapy regularly for now Patient also had fine-needle aspiration biopsy of her thyroid last week, which reportedly came back benign She had her follow-up labs done a few days ago - to discuss her results [facility] Medical History (Updated 06/09/24 @ 04:59 by Hung Montelongo MD) Pure hypercholesterolemia Left breast mass Pulmonary nodules Chronic kidney disease, stage III (moderate) Obesity (BMI 30-39.9) Renal cyst Diverticulosis Tubular adenoma Asthma Spondylosis of lumbar spine Sacroiliitis Dizziness of unknown etiology Chronic constipation Hx of schizophrenia Panic attacks PTSD (post-traumatic stress disorder) Dyspareunia Pyelonephritis Ingrown toenail Iron deficiency anemia Major depression, recurrent Anxiety Insomnia Tremor Orthostatic hypotension Incisional hernia without obstruction or gangrene Avascular necrosis of femoral head Bilateral carpal tunnel syndrome Peroneal neuropathy Lumbar degenerative disc disease Vitamin D deficiency GERD (gastroesophageal reflux disease) Migraine Hyperlipidemia Surgical History History of left nephrectomy (~1999) History of colonoscopy History of surgery Hx of cystoscopy History of bilateral breast reduction surgery History of hysterectomy History of cholecystectomy History of endoscopy (~06/2016) History of bladder repair surgery (~03/2015) S/P cystoscopy (~07/30/12) S/P panniculectomy History of hernia repair (~03/29/10) History of bladder surgery (~10/2009) History of gastric bypass (~2008) History of incisional hernia repair (~1999) Hx of umbilical hernia repair (~1999) H/O left nephrectomy S/P laparoscopic sleeve gastrectomy Family History Father Liver cancer Mother Breast cancer Sister Lung cancer Other Mental health problem Social History Household Members: Family Housing: House Do you presently have visiting nurse or other home services: No Alcohol intake: never Patient Tobacco Use Status: Never used Tobacco e-Cigarette/Vaping Use: Never Used Second Hand Smoke Exposure: No Advance Directives Date on File: 07/12/21 service: No Current occupational status: disabled Sexual orientation: Straight/Heterosexual Gender identity: Female Cognitive needs: No Hearing needs: No Vision needs: Yes Female Reproductive History Menstrual Age of Menarche: 13 Questionnaire PHQ-9 Over the last 2 weeks, how often have you been bothered by any of the following problems? 1. Little interest or pleasure in doing things: not at all 2. Feeling down, depressed, or hopeless: not at all 3. Trouble falling or staying asleep, or sleeping too much: not at all 4. Feeling tired or having little energy: not at all 5. Poor appetite or overeating: not at all 6. Feeling bad about yourself - or that you are a failure or have let yourself or your family down: not at all 7. Trouble concentrating on things, such as reading the newspaper or watching television: not at all 8. Moving or speaking so slowly that other people could have noticed. Or the op posite - being so fidgety or restless that you have been moving around a lot more than usual: not at all 9. Thoughts that you would be better off or of hurting yourself in some way: not at all Total score: 0 Depression Screening Interpretation: Positive Depression Screening Follow-up: Existing condition and In treatment Depression Screening Done: Yes 07109 - PHQ-9 Billing: Yes Source: Developed by Drs. Vincenzo Mayo, Beverly Hernandez, Angel Vogel and colleagues, with an educational juan antonio from [employer]. Thrive Questionnaire Date Thrive assessed: 06/07/24 I am a: Patient What is your living situation today?: I have a steady place to live Within the past 12 months, did the food you bought not last and you didn't have the money to get more?: Never true Within the past 12 months, did you worry whether your food would run out before you got money to buy more?: Never true Do you have trouble paying for medicines?: No Do you have trouble getting transportation to medical appointments?: No Do you have trouble paying your heating and electricity bill?: No Do you have trouble taking care of your child, family member or friend?: No Do you have trouble with day-to-day activities such as bathing, preparing meals, shopping, managing finances, etc.?: No Are you currently unemployed and looking for a job?: No Are you interested in more education?: No Please select the resources that you would like help with: None Currently or been in a relationship where the following occur: No concerns reported THRIVE Score: 0 AUDIT C Alcohol Use Questionnaire (AUDIT-C) 1. How often do you have a drink containing alcohol?: Never 3. How often do you have six or more drinks on one occasion?: Never Total Score: 0 Score Reviewed/Action Taken: Yes JAMIE-7 AMB Questionnaire JAMIE-7 Date JAMIE - 7 assessed: 06/07/24 Feeling nervous, anxious, or on edge: 0 = Not at all Not being able to stop or control worryin = Not at all Worrying too much about different things: 0 = Not at all Trouble relaxin = Not at all Being so restless that it is hard to sit still: 0 = Not at all Becoming easily annoyed or irritable: 0 = Not at all Feeling afraid as if something awful might happen: 0 = Not at all Total JAMIE-7 score (0-4 normal; 5-9 mild; 10-14 moderate; 15-21 severe): 0 Source: Developed by Drs. Vincenzo Mayo, Beverly Hernandez, Angel Vogel and colleagues, with an educational juan antonio from [employer]. Review of Systems Const Denies chills, Reports fatigue, Denies fever(s) and Reports headache(s) (on and off) ENT Denies dysphagia, Reports dizziness (on and off, mostly when she moves or gets up too quickly), Denies otalgia, Reports headache(s) (on and off), Denies neck pain, Denies odynophagia and Denies sore throat Card Denies chest pain, Denies irregular heart rhythm, Denies palpitations and Denies dyspnea Resp Denies chest congestion, Denies cough and Denies dyspnea GI Denies abdominal pain, Denies constipation, Denies dysphagia, Denies heartburn, Denies diarrhea, Reports nausea (on and off), Denies odynophagia and Denies vomiting Denies hematuria, Denies urinary frequency, Denies dysuria and Denies urinary urgency Musc Reports back pain (over the lower back - chronic), Denies arthralgias and Denies neck pain Skin/Breast Denies rash Neuro Reports dizziness (on and off, mostly when she moves or gets up too quickly), Reports headache(s) (on and off) and Denies paresthesias Psych Reports anxiety and Reports depression Endo Reports fatigue and Denies palpitations Catarino/Lymph Denies easy bruising Physical exam (Primary Care) Vital Signs: Last Vital Signs Pulse 65 06/07/24 14:21 BP 110/70 06/07/24 14:21 Pulse Ox 97 06/07/24 14:21 Oxygen Delivery Method Room Air 06/07/24 14:21 BMI result Body Mass Index 28.5 Tobacco/Smoking Status: Tobacco use Status Tobacco use date assessed 06/07/24 06/07/24 15:30 Patient Tobacco Use Status Never used Tobacco 06/07/24 14:22 e-Cigarette/Vaping Use Never Used 06/07/24 14:22 PHQ-9: PHQ-9 Score PHQ-9: Total score 0 06/07/24 15:49 Depression Screening Interpretation: Positive Depression Screening Follow-up: Existing condition and In treatment Thrive Assessment: Date of Thrive Assessment Date Thrive assessed 06/07/24 06/07/24 15:30 Currently or been in a relationship where the following occur: No concerns reported Const General: no acute distress and alert HENMT Ears: TM's normal bilaterally and EAC's normal Throat: Yes posterior oropharynx normal and Yes tonsils normal Neck Neck: Yes no lymphadenopathy and Yes supple Thyroid: Thyroid normal Resp Auscultation: clear to auscultation bilaterally, no rales and no wheezes Cardio Rate: regular rate Rhythm: regular rhythm Heart sounds: no murmurs GI Palpation (GI): Soft to palpation and nontender Auscultation: normal bowel sounds General: Yes no CVA tenderness Back/Spine/Pelvis Back: no CVA tenderness Thoracic/Lumbar Spine: paraspinal muscle tenderness (over the lumbar region) on the right greater than left and lumbar spinal tenderness Skin Rashes: no rashes Extrem General: Yes no clubbing, cyanosis or edema Results Reviewed Results Reviewed: Laboratory Tests 06/04/24 06/04/24 07:51 07:57 WBC 5.9 Hgb 14.0 Hct 41.0 Plt Count 245 Sodium 143 Potassium 4.4 Creatinine 1.07 Estimated GFR 53 Fasting Glucose 90 Calcium 9.3 AST 31 ALT 50 H Triglycerides 88 Cholesterol 245 H LDL Cholesterol, Calc 169 H HDL Cholesterol 59 TSH 1.59 Ur Specific [place] 1.015 Urine Protein Negative Urine Glucose (UA) Negative Urine Blood Large (3+) H Urine Nitrite Negative Ur Leukocyte Esterase Negative Coding Level of Care Code Est Pt Level 4 (57784) Diagnoses Pure hypercholesterolemia E78.00 Hyperlipidemia type: pure hypercholesterolemia Elevated LFTs R79.89 MIGUEL (obstructive sleep apnea) G47.33 Solitary kidney, acquired Z90.5 Multiple thyroid nodules E04.2 Chronic constipation K59.09 Orthostatic hypotension I95.1 Pruritus L29.9 Gastroesophageal reflux disease without esophagitis K21.9 Esophagitis presence: without esophagitis Degeneration of intervertebral disc of lumbar region with discogenic back pain and lower extremity pain M51.362 Disc-related pain type: discogenic back pain and lower extremity pain Pain in other joint M25.59 Joint pain location: other joint Migraine without status migrainosus, not intractable, unspecified migraine type G43.909 Migraine type: unspecified Status migrainosus presence: without status migrainosus Intractability: not intractable Vitamin D deficiency E55.9 Memory impairment R41.3 Primary insomnia F51.01 Insomnia type: primary Anxiety F41.9 Episode of recurrent major depressive disorder, unspecified depression episode severity F33.9 Active/Remission status: currently active Major depression episode severity: unspecified Overweight (BMI 25.0-29.9) E66.3 Additional Codes PHQ-9 - 08584 - PHQ-9 Billing: Yes ([id number]) Assessment & Plan Assessment & Plan (1) Hyperlipidemia: Code(s): E78.5 - Hyperlipidemia, unspecified Category: Medical Qualifiers: Hyperlipidemia type: pure hypercholesterolemia Qualified Code(s): E78.00 - Pure hypercholesterolemia, unspecified Plan: Results of her labs done a few days ago reviewed and discussed with patient - her cholesterol levels have increased significantly from previous since her Rosuvastatin was held at her last visit due to her elevated LFTs Reinforced low cholesterol diet Her LFTs have improved since she was taken off her statin Rx but her serum ALT level has gone up slightly again recently, most likely in relation to her weight as patient denies any alcohol intake - states that she does not drink alcohol at all Will go ahead and try starting her on Repatha 140 mg SQ every 2 weeks as her LDL cholesterol level is now at 169 mg/dl on her recent labs Will recheck her fasting lipids and labs again in 3 months for follow up (2) Elevated LFTs: Code(s): R79.89 - Other specified abnormal findings of blood chemistry Category: Medical Plan: Patient's LFTs have improved since she was taken off Rosuvastatin a few months ago but her serum ALT has again increased since Abdominal US done a few months ago revealed (+) coarsened hepatic echotexture, consistent with fatty infiltration or hepatocellular disease. No focal hepatic mass or intrahepatic biliary dilatation is seen We will continue to monitor her LFTs regularly (3) MIGUEL (obstructive sleep apnea): Comment: mild degree of sleep apnea. The AHI was 5/hr and oxygen mitul was 81%. Code(s): G47.33 - Obstructive sleep apnea (adult) (pediatric) Category: Medical Plan: Continue using her CPAP device when sleeping at night daily Follow up with Sleep Medicine as scheduled (4) Solitary kidney, acquired: Comment: (+) Hx of left nephrectomy >20 years ago due to recurrent kidney stones Code(s): Z90.5 - Acquired absence of kidney Category: Medical Plan: Follow up with nephrology as scheduled (5) Multiple thyroid nodules: Code(s): E04.2 - Nontoxic multinodular goiter Category: Medical Plan: These were apparently seen incidentally on neck CTA done a few months ago Her TFTs remain normal on her recent labs We will go ahead and refer to Endocrinology for further evaluation and consideration for thyroid biopsy (6) Chronic constipation: Code(s): K59.09 - Other constipation Category: Medical Plan: She is again encouraged on increased oral fluids and dietary fiber States that Lactulose and Docusate 100 mg BID have not helped much previously; she also tried taking OTC Miralax, which she states only helped minimally She was tried by GI on Linzess and Trulance also recently and she states that both Rx did not help She is currently on a combination regimen of Linzess 145 mcg QD, Docusate 100 mg BID and Miralax 17 gm QD Had EGD and colonoscopy done a couple of years ago - (+) tubular adenoma; colonoscopy was otherwise normal Follow up with GI as scheduled (7) Orthostatic hypotension: Code(s): I95.1 - Orthostatic hypotension Category: Medical Plan: 30 days cardiac event monitor done on 07/11/2023 showed sinus rhythm with heart rate ranging from 36 to 131/min, 2 brief paroxysmal SVT episodes, rare PACs and PVCs; two symptom events correlated with sinus tach. Echocardiogram done on the same day (07/11/2023) came out normal Tilt-table testing done on 10/17/2023 showed appropriate heart rate and blood pressure response to tilt Continue Midodrine 10 mg TID She is reminded to stay adequately hydrated as much as she can and to try increasing her oral salt intake as well Follow up with cardiology as scheduled (8) Pruritus: Code(s): L29.9 - Pruritus, unspecified Category: Medical Plan: Patient relates experiencing increased itching all over frequently and she feels that these are likely due to her Midodrine Rx and is inquiring if she can stop taking this medication Have advised patient that she was started on Midodrine by cardiology to help with her orthostasis and stopping this abruptly may not be the best option to take, even if Midodrine is in the responsible for her complaints of recurrent pruritus recently Have advised patient to continue on her current medication for now and to speak to cardiology first whether they are agreeable to her stopping her Midodrine or not Have advised patient that she can try taking some OTC Benadryl PRN for now for symptomatic relief (9) GERD (gastroesophageal reflux disease): Code(s): K21.9 - Gastro-esophageal reflux disease without esophagitis Category: Medical Qualifiers: Esophagitis presence: without esophagitis Qualified Code(s): K21.9 - Gastro-esophageal reflux disease without esophagitis Plan: Dietary restrictions reinforced Continue Omeprazole 20 mg QD (10) Lumbar degenerative disc disease: Code(s): M51.36 - Other intervertebral disc degeneration, lumbar region Category: Medical Qualifiers: Disc-related pain type: discogenic back pain and lower extremity pain Qualified Code(s): M51.362 - Other intervertebral disc degeneration, lumbar region with discogenic back pain and lower extremity pain Plan: Reinforced activity and weight lifting restrictions She went to physical therapy last year without any significant relief She was seen by [facility] previously and had a diagnostic SI joint injection under fluoroscopic guidance back in September 2021 and started seeing them again recently; has been scheduled for bilateral therapeutic sacroiliac joint injection under sedation but it looks like she stopped going to pain management afterwards She was referred back to [facility] Pain management for interventional Tx to help with her chronic pain at her last visit and she was seen again by Dr. Smith in late October 2023 and he was reportedly planning to schedule her for a bilateral therapeutic sacroiliac joint injection under sedation but it appears that patient did not follow-up again for her injections although she claims that she was never scheduled It appears that patient completely forgot about her follow-up and has been experiencing some memory issues in addition to her recent psychiatric hospitalizations for decompensation She was seen again by Dr. Smith a couple of months ago and was sent for physical therapy, after which she will be scheduled again for back injections Patient started back with physical therapy last week and she is reminded to continue following up with them and with pain management as scheduled Continue Gabapentin 800 mg 3 times a day, Tramadol 50 mg 1-2 tablets every 8 hours as needed Have reminded patient that we are not going to be prescribing her any opioids for her chronic pain as she was discharged from pain management here at the [facility] back in 2013 for 2 negative UDS in a row at the time and that once a patient has been discharged for violating our pain management agreement, there is no redo on the consequences (11) Arthralgia: Code(s): M25.50 - Pain in unspecified joint Category: Medical Qualifiers: Joint pain location: other joint Qualified Code(s): M25.59 - Pain in other specified joint Plan: Involving multiple joints, especially over both hips, both elbows and both knees X-rays of the knees done back in August 2021 revealed (+) mild OA changes in both knees; hip and elbow x-rays came out normal Continue Gabapentin 800 mg TID and Tramadol 50 mg TID PRN for pain (12) Migraine: Code(s): G43.909 - Migraine, unspecified, not intractable, without status migrainosus Category: Medical Qualifiers: Migraine type: unspecified Status migrainosus presence: without status migrainosus Intractability: not intractable Qualified Code(s): G43.909 - Migraine, unspecified, not intractable, without status migrainosus Plan: Stable lately Continue Topiramate 50 mg QD for LANZA prophylaxis and Sumatriptan 50 mg PRN Follow-up with neurology as scheduled (13) Vitamin D deficiency: Code(s): E55.9 - Vitamin D deficiency, unspecified Category: Medical Plan: Continue Vitamin D3 1000 units QD (14) Memory impairment: Code(s): R41.3 - Other amnesia Category: Medical Plan: She was referred to and seen by neurology and was advised that her memory issues are multifactorial in etiology although she was diagnosed with frontotemporal lobe degeneration and dementia as well Follow up with neurology as scheduled (15) Insomnia: Code(s): G47.00 - Insomnia, unspecified Category: Medical Qualifiers: Insomnia type: primary Qualified Code(s): F51.01 - Primary insomnia Plan: Sleep hygiene reinforced She was taking Trazodone 50 mg daily at bedtime as needed and Prazosin 1 mg Q HS in the past but currently appears to be only taking Melatonin 5 mg Q HS She is also on Aripiprazole 5 mg Q HS (16) Anxiety: Code(s): F41.9 - Anxiety disorder, unspecified Category: Medical Plan: Continue Lorazepam 1 mg BID PRN and Diphenhydramine 50 mg Q HS (17) Major depression, recurrent: Code(s): F33.9 - Major depressive disorder, recurrent, unspecified Category: Medical Qualifiers: Active/Remission status: currently active Major depression episode severity: unspecified Qualified Code(s): F33.9 - Major depressive disorder, recurrent, unspecified Plan: Continue Lurasidone 20 mg QD, Mirtazapine 7.5 mg Q HS and Aripiprazole 5 mg Q HS She was admitted to [facility] a few months ago for psychiatric decompensation and suicidal ideation and has had multiple psychiatric admissions as well in the past for similar reasons Follow-up with Psychiatry as scheduled (18) Overweight (BMI 25.0-29.9): Code(s): E66.3 - Overweight Category: Medical Plan: Reinforced diet; exercise is unrealistic given patient's multiple medical and psychiatric morbidities Plan Follow-up in 3 months Orders: Orders Lipid Panel 3 Months E78.00 - Pure hypercholesterolemia, unspecified Comprehensive [place]. Panel Fast 3 Months E78.00 - Pure hypercholesterolemia, unspecified TSH reflex Free T4 3 Months E78.00 - Pure hypercholesterolemia, unspecified UA CC w/rflx Micro + Cult 3 Months R30.0 - Dysuria Complete Blood Count Auto Diff 3 Months D64.9 - Anemia, unspecified Vitamin D 25-OH Total 3 Months E55.9 - Vitamin D deficiency, unspecified Vitamin B12 and Folate 3 Months E53.8 - Deficiency of other specified B group vitamins Medications: New evolocumab (Repatha SureClick) 140 mg subcut Q2W 4 weeks 2 mL 2RF E78.00 - Pure hypercholesterolemia, unspecified Repatha SureClick (evolocumab) 140 mg subcut Q2W 4 weeks 2 mL 2RF NS E78.00 - Pure hypercholesterolemia, unspecified
--- OUTSIDE RECORDS SUMMARY | 2024-06-07 14:34 | XMS_ITS | Clinical Summary ---
Author Organization [employer] Address [address] [facility] 7t [place] [address] Care Team Providers Care Skip Operator Name Role Phone Unavailable Primary Care Provider [...] days. 473 mL 5 02/05/20 25 Active Problems Problem Noted Date Diagnosed Date Laceration of right cheek 05/16/2023 Xerostomia 04/26/2023 Dental plaque 10/10/2022 Localized gingival recession, minimal 10/10/2022 Encounters Date Type Department Care Team Description 05/22/2024 1:00 PM EST Office Visit [facility]ULT [facility] [address] [place] [address] Leatha Centeno Dental calculus (Primary Dx); Dental [...] Description 11/20/2024 1:00 PM EDT Office Visit [facility] [address] [place] [address] Leatha Centeno Health Maintenance Due Date Last [...] topic Meningococcal Vaccine Aged Out No kae esteban eligible based on patient's age to complete [...]
--- OUTSIDE RECORDS SUMMARY | 2024-06-07 14:34 | XMS_ITS | Encounter Summary ---
Author Organization [employer] [facility] Address [address] [facility] 7t [place] [address] Care Team Providers Care Mottle Lay Up Operator Name Role Phone Unavailable Primary Care Provider Unavailabl e Encounter Details Date Type Department Care Team (Latest Contact Info) Description 11/30/2020 Abstract [facility] CONVERSIONS Dental, Provider, DDS Social History [...] Description 11/20/2024 1:00 PM EDT Office Visit [facility] ADULT DENTAL [address] [place] [address] Leatha Centeno documented as of this encounter Visit Diagnoses Not on filedocumented in this encounter
--- OUTSIDE RECORDS SUMMARY | 2024-06-07 14:34 | XMS_ITS | Encounter Summary ---
Author Organization [employer] Address [address] [place] [address] 7t [place] [address] Care Team Providers Care Folder Taper Operator Name Role Phone Unavailable Primary Care Provider Unavailabl e Reason for Visit * Reason Comments Routine Cleaning Dental Exam Encounter Details Date Type Department Care Team ([facility] st Contact Info) Description 05/22/2024 1:00 PM EST Office Visit [facility] ADULT DENTAL [address] [place] [address] Leatha Centeno Dental calculus (Primary Dx); Dental [...] Timeout Time: 1300 (Dental Prophy Adult) Location: [facility] Tooth: Maxilla and Mandible Procedure: Exam, X-rays, and Prophylaxis Verified the above with patient, assistant track coach, and provider. Confirmed via patient's chart, intraorally and by radiographs. Continuous Pickling Line Pickler Helper: not applicable Medical Hx: Vitals: Blood pressure [...] patient including brushing technique and flossing. Recommendations: Crooks two times daily, modified thorpe technique, Floss daily, Electric toothbrush, Soft bristle toothbrush, [place] Tongue, Anti-sensitivity toothpaste Recall Frequency: 6 mo [...] Timeout Time: 1300 (Dental Prophy Adult) Location: [facility] Tooth: Maxilla and Mandible Procedure: Exam, X-rays, and Prophylaxis Verified the above with patient, assistant track coach, and provider. Confirmed via patient's chart, intraorally and by radiographs. Continuous Pickling Line Pickler Helper: not applicable Chief Complaint Patient presents with [...] Cancer Risk: Low Risk Oral Hygiene Instructions: Crooks two times daily, modified thorpe technique, Floss daily, Electric toothbrush, Soft bristle toothbrush, Crooks Tongue Caries Risk Assessment: Low- no risk factor no new carious lesion noticed Assessment/Plan MARY X Ray Prophy Recall Patient tolerated procedure well, all questions answered and expressed understanding. Dismissed in good condition. NV: 6 mos recall [employer] Paralegal: Leatha Centeno Dentist: Brennon Quevedo DDS documented in this encounter Plan of Treatment Upcoming Encounters Date Type Department Care Team (Late st Contact Info) Description 11/20/2024 1:00 PM EDT Office Visit [facility] ADULT D[facility] [address] [place] [address] Leatha Centeno documented as of this encounter [...]
--- OUTSIDE RECORDS SUMMARY | 2024-06-07 14:34 | XMS_ITS | Encounter Summary ---
Author Organization [employer] [facility] Address [address] [facility] 7t [place] [address] Care Team Providers Care Detective Name Role Phone Unavailable Primary Care Provider Unavailabl e Encounter Details Date Type Department Care Team (Latest Contact Info) Description 01/20/2022 Abstract [facility] CONVERSIONS Dental, Provider, DDS Social History [...] Upcoming Encounters Date Type Department Care Team ( st Contact Info) Description 11/20/2024 1:00 PM EDT Office Visit [facility] ADULT DENTAL [address] [place] [address] Leatha Centeno documented as of this encounter Visit Diagnoses Not on filedocumented in this encounter
--- OUTSIDE RECORDS SUMMARY | 2024-06-07 14:34 | XMS_ITS | Clinical Summary ---
Author Organization [facility] Address [address] [place] [address] Care Team Providers Care Homeowner Association Manager Name Role Phone Hung Montelongo MD Primary Care Provider +1- [phone] Allergies Active Allergy Reactions Criticality Noted Date [...] Visit [facility] [address] [place] [id number] Alejandro Benz MD [address] [facility] [facility] [address] [place] [address] Health Maintenance Due Date Last [...] Sigmoidoscopy 2018 Influenza Vaccine (#1) 2023 Insurance [facility] MEDICAID [facility] MEDICAID Care Teams Homeowner Association Manager Relationship Specialty Start Date End Date Hung Montelongo MD [address] [place] [address] PCP - General 05/11/20
== END 2024-06-07 16:03 | disposition home or self-care (01) ==
PROVIDERS: PCP Internal Medicine; Visit Provider Internal Medicine
DX: E78.00 Pure hypercholesterolemia, unspecified (principal); R79.89 Other specified abnormal findings of blood chemistry; G47.33 Obstructive sleep apnea (adult) (pediatric); F33.9 Major depressive disorder, recurrent, unspecified; Z90.5 Acquired absence of kidney; E04.2 Nontoxic multinodular goiter; K59.09 Other constipation; I95.1 Orthostatic hypotension; L29.9 Pruritus, unspecified; K21.9 Gastro-esophageal reflux disease without esophagitis; M51.362 Other intervertebral disc degeneration, lumbar region with discogenic back pain and lower extremity pain; M25.59 Pain in other specified joint

== ENCOUNTER → 2024-06-07 14:16 | Outpatient (BNVA) | payer OTHER, SELFPAY | PROVIDERS: PCP Internal Medicine; Visit Provider Internal Medicine | DX: E78.00 Pure hypercholesterolemia, unspecified (principal); R79.89 Other specified abnormal findings of blood chemistry; G47.33 Obstructive sleep apnea (adult) (pediatric); E04.2 Nontoxic multinodular goiter; K59.09 Other constipation; I95.1 Orthostatic hypotension; L29.9 Pruritus, unspecified; K21.9 Gastro-esophageal reflux disease without esophagitis; M61.362 Calcification and ossification of muscles associated with burns, left lower leg; Z90.5 Acquired absence of kidney; G43.909 Migraine, unspecified, not intractable, without status migrainosus; E55.9 Vitamin D deficiency, unspecified; R41.3 Other amnesia; F51.01 Primary insomnia; F41.9 Anxiety disorder, unspecified; F33.9 Major depressive disorder, recurrent, unspecified; E66.3 Overweight | CPT/HCPCS: 96127; 99212 ==

== ENCOUNTER 2024-06-11 11:27 | Outpatient (AMB) | payer OTHER, SELFPAY ==
--- NOTE | 2024-06-11 11:52 | A.OFFVIS_ITS ---
VS Expanded 06/11/24 11:59 BP 123/72 Blood Pressure Location Rt brachial Blood Pressure Position Sitting Pulse 81 Pulse Source Pulse Oximeter Temp 97.7 F Temperature Source Temporal Artery Scan Pulse Oximetry 98 Oxygen Delivery Method Room Air Height 5 ft 2.5 in Weight 153 lb 12.8 oz BMI 27.7 Body Fat % 40.3 Body Fat Mass 62.0 Fat Free Mass 91.8 Visceral Fat Rating 9.0 Body Water % 42.3 Body Water Mass 65.0 Muscle Mass/Score 87.0 Basal Metabolic Rate/Score 1,279 Intake Visit Reasons: (OV) PO LRYGB 06/16/16 Computer Numeric Control Setter Required: Yes Computer Numeric Control Setter Name: Jonah [id number] Allergies atorvastatin Adverse Reaction (Intermediate, Verified 06/11/24 11:56) elevated LFTs rosuvastatin Adverse Reaction (Intermediate, Verified 06/11/24 11:56) Elevated LFTs acetaminophen Adverse Reaction (Unknown, Verified 06/11/24 11:56) Unknown Medication List - Last Reconciled 06/11/24 by CJ Cheng albuterol sulfate 90 mcg/actuation (Ventolin HFA) 2 puffs inhalation Q6H PRN 30 days apixaban (Eliquis) 5 mg PO BID 30 days bisacodyl (Dulcolax (bisacodyl)) 10 mg (2 x 5 mg) PO BEDTIME blood pressure monitor As directed uaztufiyhw-caulfhkfflzjh-xgtl 50-325-40 mg 2 tabs PO Q6H PRN 30 days cariprazine (Vraylar) 4.5 mg (3 x 1.5 mg) PO DAILY 30 days cholecalciferol (vitamin D3) (Vitamin D3) 25 mcg PO DAILY 90 days [CPAP device and all related supplies As directed] cyanocobalamin (vitamin B-12) 500 mcg PO DAILY 30 days diphenhydramine HCl (Banophen) 25 mg PO TID PRN 30 days docusate sodium 100 mg PO DAILY enoxaparin (Lovenox) 60 mg (0.6 mL) subcut Q12H 3 days estradiol 0.01%(0.1mg/gram) vaginally 3 times a week; pea sized amount to urethra 3 times a week 90 days ferrous sulfate 325 mg PO DAILY 90 days gabapentin 800 mg PO TID 30 days hydrocortisone 2.5% 1 appl TN BID-QID PRN linaclotide (Linzess) 145 mcg PO DAILY lorazepam 1 mg PO BID PRN 30 days meclizine 25 mg PO TID PRN 30 days melatonin 10 mg (2 x 5 mg) PO BEDTIME PRN 30 days midodrine 10 mg PO TID 30 days mometasone 0.1% 1 appl topical DAILY PRN naproxen 500 mg PO DAILY nitrofurantoin monohyd/m-cryst 100 mg (Macrobid) 100 mg PO DAILY 30 days potassium citrate ER 5 mEq PO DAILY Repatha SureClick (evolocumab) 140 mg subcut Q2W 4 weeks NS sumatriptan succinate 50 mg PO DAILY topiramate 100 mg PO DAILY 30 days tramadol 100 mg (2 x 50 mg) PO Q8H PRN 30 days triamcinolone acetonide 0.1% 1 appl topical DAILY HPI Comments Details: This?is a?53?yo F who is s/p RYGB 06/16/2016. Presents for 8 year post op visit. Weight gain of 6.4lbs since last OV 11 months ago. Since last visit pt had a PE, now on Eliquis. Present meal plan includes: 1 scoop Pure Protein in 8oz 1% milk- 33g Pure Protein bar- 20g- OR has been having fish for lunch, perhaps 3oz, with salad Dinner of 3oz protein (21g)- has been having salad and salmon or chicken or beef will drink water and zero calorie flavor enhancer Goal of 70g/day. -Pt reports she wants to restart shakes, only taking solid foods recently Exercise routine includes: recommended Sit and Be Fit or MM videos, trying to do 3x/week has been doing some Kushal classes leg weakness has improved, has been walking on treadmill has chronic pain, follows with pain management [facility] Medical History (Updated 06/09/24 @ 04:59 by Hung Montelongo MD) Pure hypercholesterolemia Left breast mass Pulmonary nodules Chronic kidney disease, stage III (moderate) Obesity (BMI 30-39.9) Renal cyst Diverticulosis Tubular adenoma Asthma Spondylosis of lumbar spine Sacroiliitis Dizziness of unknown etiology Chronic constipation Hx of schizophrenia Panic attacks PTSD (post-traumatic stress disorder) Dyspareunia Pyelonephritis Ingrown toenail Iron deficiency anemia Major depression, recurrent Anxiety Insomnia Tremor Orthostatic hypotension Incisional hernia without obstruction or gangrene Avascular necrosis of femoral head Bilateral carpal tunnel syndrome Peroneal neuropathy Lumbar degenerative disc disease Vitamin D deficiency GERD (gastroesophageal reflux disease) Migraine Hyperlipidemia Surgical History History of left nephrectomy (~1999) History of colonoscopy History of surgery Hx of cystoscopy History of bilateral breast reduction surgery History of hysterectomy History of cholecystectomy History of endoscopy (~06/2016) History of bladder repair surgery (~03/2015) S/P cystoscopy (~07/30/12) S/P panniculectomy History of hernia repair (~03/29/10) History of bladder surgery (~10/2009) History of gastric bypass (~2008) History of incisional hernia repair (~1999) Hx of umbilical hernia repair (~1999) H/O left nephrectomy S/P laparoscopic sleeve gastrectomy Family History Father Liver cancer Mother Breast cancer Sister Lung cancer Other Mental health problem Social History Household Members: Family Housing: House Do you presently have visiting nurse or other home services: No Alcohol intake: never Patient Tobacco Use Status: Never used Tobacco e-Cigarette/Vaping Use: Never Used Second Hand Smoke Exposure: No Advance Directives Date on File: 07/12/21 service: No Current occupational status: disabled Sexual orientation: Straight/Heterosexual Gender identity: Female Cognitive needs: No Hearing needs: No Vision needs: Yes Female Reproductive History Menstrual Age of Menarche: 13 Physical Exam Vital Signs: Last Vital Signs Temp 97.7 F 06/11/24 11:59 Pulse 81 06/11/24 11:59 BP 123/72 06/11/24 11:59 Pulse Ox 98 06/11/24 11:59 Oxygen Delivery Method Room Air 06/11/24 11:59 BMI result Body Mass Index 27.7 Assessment & Plan Assessment & Plan (1) Overweight (BMI 25.0-29.9): Code(s): E66.3 - Overweight Category: Medical (2) History of gastric bypass: Onset Date: ~2008 Comment: revision of GBP Jun 2016 Code(s): Z98.84 - Bariatric surgery status Category: Surgical Plan Recommended restarting above plan of bar, shake, and meal to help with weight loss; pt is agreeable. She is limited in exercise but can use the treadmill. She believes she has a hernia of left abdominal wall. I do not see any imaging to support that although she does have an umbilical hernia. I also cannot palpate a certain defect of abdominal wall where she indicates. She asks about our office managing this lateral hernia. If there is one present I told her that general surgery could go over options with her. She was satisfied with this. Vitamin labs ordered. RTC 6mo. I spent a total of 30 minutes reviewing/updating records, examining the patient and counseling the patient on weight management as detailed above. Orders: Orders Vitamin A Today Z98.84 - Bariatric surgery status Zinc Today Z98.84 - Bariatric surgery status Vitamin D 25-OH Total Today Z98.84 - Bariatric surgery status Vitamin B12 and Folate Today Z98.84 - Bariatric surgery status Vitamin B1 Today Z98.84 - Bariatric surgery status
[2024-06-11 11:59] VITALS: BP 123/72; PULSE 81; TEMP 36.5; O2SAT 98; BMI 27.7
--- OUTSIDE RECORDS SUMMARY | 2024-06-11 13:05 | XMS_ITS | Clinical Summary ---
Author Organization [employer] Address [address] [facility] 7t [place] [address] Care Team Providers Care Drawer In Name Role Phone Unavailable Primary Care Provider [...] Description 05/22/2024 1:00 PM EST Office Visit [facility] ADULT DENTAL [address] [place] [address] Leatha Centeno Dental calculus (Primary Dx); Dental [...] Description 11/20/2024 1:00 PM EDT Office Visit [facility]ULT [facility] [address] [place] [address] Leatha Centeno Health Maintenance Due Date Last [...]
--- OUTSIDE RECORDS SUMMARY | 2024-06-11 13:05 | XMS_ITS | Encounter Summary ---
Author Organization [email or web address] Address [address] [place] [address] 7t [place] [address] Care Team Providers Care Molder Hand Name Role Phone Unavailable Primary Care Provider Unavailabl e Reason for Visit * Reason Comments Routine Cleaning Dental Exam Encounter Details Date Type Department Care Team ([facility] st Contact Info) Description 05/22/2024 1:00 PM EST Office Visit [facility] ADULT DENTAL [address] [place] [address] Leatha Centeno Dental calculus (Primary Dx); Dental [...] Timeout Time: 1300 (Dental Prophy Adult) Location: [facility] Tooth: Maxilla and Mandible Procedure: Exam, X-rays, and Prophylaxis Verified the above with patient, bindery library technical assistant, and provider. Confirmed via patient's chart, intraorally and by radiographs. Operation Agent: not applicable Medical Hx: Vitals: Blood pressure [...] patient including brushing technique and flossing. Recommendations: [place] two times daily, modified thorpe technique, Floss daily, Electric toothbrush, Soft bristle toothbrush, [place] Tongue, Anti-sensitivity toothpaste Recall Frequency: 6 mo NV: 6mrc Hygienist: Leatha Centeno RDH * Brennon Quevedo DDS - 05/22/2024 1:00 PM EST Dental procedures in this visit [id number] - PROPHYLAXIS - ADULT (Completed) Service provider: Leatha Pamla provider: Brennon Quevedo DDS [id number] - DIAGNOSTIC [...] Timeout Time: 1300 (Dental Prophy Adult) Location: [facility] Tooth: Maxilla and Mandible Procedure: Exam, X-rays, and Prophylaxis Verified the above with patient, bindery library technical assistant, and provider. Confirmed via patient's chart, intraorally and by radiographs. Operation Agent: not applicable Chief Complaint Patient presents with [...] Cancer Risk: Low Risk Oral Hygiene Instructions: [place] two times daily, modified thorpe technique, Floss daily, Electric toothbrush, Soft bristle toothbrush, [place] Tongue Caries Risk Assessment: Low- no risk factor no new carious lesion noticed Assessment/Plan MARY X Ray Prophy Recall Patient tolerated procedure well, all questions answered and expressed understanding. Dismissed in good condition. NV: 6 mos recall Loader Operator: Leatha Centeno Dentist: Brennon Quevedo DDS documented in this encounter Plan of Treatment Upcoming Encounters Date Type Department Care Team (Late st Contact Info) Description 11/20/2024 1:00 PM EDT Office Visit [facility] ADULT DENTAL [address] [place] [address] Leatha Centeno documented as of this encounter [...]
--- OUTSIDE RECORDS SUMMARY | 2024-06-11 13:05 | XMS_ITS | Clinical Summary ---
Author Organization [facility] Address [address] [place] [address] Care Team Providers Care Business Database Analyst Name Role Phone Hung Montelongo MD Primary Care Provider +1- [phone] Allergies Active Allergy Reactions Criticality Noted Date [...] Visit [facility] [address] [place] [phone] Alejandro Benz MD [address] [facility] [address] [place] [address] Health Maintenance Due Date Last [...] Sigmoidoscopy 2018 Influenza Vaccine (#1) 2023 Insurance [facility] MEDICAID [facility] MEDICAID Care Teams Business Database Analyst Relationship Specialty Start Date End Date Hung Montelongo MD [address] [place] [address] PCP - General 05/11/20
--- OUTSIDE RECORDS SUMMARY | 2024-06-11 13:05 | XMS_ITS | Encounter Summary ---
Author Organization [facility] Address [address] [facility] 7t [place] [address] Care Team Providers Care Cotton Stripper Name Role Phone Unavailable Primary Care Provider [...] [facility]ULT [facility] [address] [place] [address] Leatha Centeno documented as of this encounter Visit Diagnoses Not on filedocumented in this encounter
--- OUTSIDE RECORDS SUMMARY | 2024-06-11 13:05 | XMS_ITS | Encounter Summary ---
Author Organization [facility] Address [address] [facility] 7t [place] [address] Care Team Providers Care Calciner Operator Helper Name Role Phone Unavailable Primary Care Provider Unavailabl e Encounter Details Date Type Department Care Team (Latest Contact Info) Description 01/20/2022 Abstract [facility] CONVERSIONS Dental, Provider, DDS Social History [...] Description 11/20/2024 1:00 PM EDT Office Visit [facility] ADULT DENT[facility] [address] [place] [address] Leatha Centeno documented as of this encounter Visit Diagnoses Not on filedocumented in this encounter
== END 2024-06-11 12:37 | disposition home or self-care (01) ==
PROVIDERS: PCP Internal Medicine; Visit Provider Physician Assistant Surgical
DX: E66.3 Overweight (principal); Z68.27 Body mass index [BMI] 27.0-27.9, adult; Z98.84 Bariatric surgery status
CPT/HCPCS: 99214; G2211

== ENCOUNTER → 2024-06-11 11:27 | Outpatient (BNVA) | payer OTHER, SELFPAY | PROVIDERS: PCP Internal Medicine; Visit Provider Physician Assistant Surgical | DX: E66.3 Overweight (principal); Z98.84 Bariatric surgery status; Z68.27 Body mass index [BMI] 27.0-27.9, adult | CPT/HCPCS: 99212 ==

== ENCOUNTER 2024-06-12 13:44 | Outpatient (AMB) | payer OTHER, SELFPAY ==
[2024-06-12 13:45] VITALS: BP 112/70; PULSE 62; O2SAT 98; BMI 28.6
--- NOTE | 2024-06-12 13:45 | A.OFFVIS_ITS ---
Vital Signs 3 06/12/24 13:45 Height 5 ft 2.5 in Weight 158 lb 15.253 oz BMI 28.6 BP 112/70 Blood Pressure Location Lt brachial Position Sitting Pulse 62 Pulse Source Pulse Oximeter Pulse Oximetry (%) 98 Oxygen Delivery Method Room Air Intake Visit Reasons: Biopsy f/u Intake Note: Patient present today for biopsy results. Professor Of Nursing Required: Yes Professor Of Nursing Language: Animal Anatomist Services: Professor Of Nursing Offered & Declined Accompanied by: Son Allergies atorvastatin Adverse Reaction (Intermediate, Verified 06/12/24 13:49) elevated LFTs rosuvastatin Adverse Reaction (Intermediate, Verified 06/12/24 13:49) Elevated LFTs acetaminophen Adverse Reaction (Unknown, Verified 06/12/24 13:49) Unknown Medication List - Last Reconciled 06/12/24 by Luna Mejia MD albuterol sulfate 90 mcg/actuation (Ventolin HFA) 2 puffs inhalation Q6H PRN 30 days apixaban (Eliquis) 5 mg PO BID 30 days bisacodyl (Dulcolax (bisacodyl)) 10 mg (2 x 5 mg) PO BEDTIME blood pressure monitor As directed [id number] 50-325-40 mg 2 tabs PO Q6H PRN 30 days cariprazine (Vraylar) 4.5 mg (3 x 1.5 mg) PO DAILY 30 days cholecalciferol (vitamin D3) (Vitamin D3) 25 mcg PO DAILY 90 days [CPAP device and all related supplies As directed] cyanocobalamin (vitamin B-12) 500 mcg PO DAILY 30 days diphenhydramine HCl (Banophen) 25 mg PO TID PRN 30 days docusate sodium 100 mg PO DAILY enoxaparin (Lovenox) 60 mg (0.6 mL) subcut Q12H 3 days estradiol 0.01%(0.1mg/gram) vaginally 3 times a week; pea sized amount to urethra 3 times a week 90 days ferrous sulfate 325 mg PO DAILY 90 days gabapentin 800 mg PO TID 30 days hydrocortisone 2.5% 1 appl MT BID-QID PRN linaclotide (Linzess) 145 mcg PO DAILY lorazepam 1 mg PO BID PRN 30 days meclizine 25 mg PO TID PRN 30 days melatonin 10 mg (2 x 5 mg) PO BEDTIME PRN 30 days midodrine 10 mg PO TID 30 days mometasone 0.1% 1 appl topical DAILY PRN naproxen 500 mg PO DAILY nitrofurantoin monohyd/m-cryst 100 mg (Macrobid) 100 mg PO DAILY 30 days potassium citrate ER 5 mEq PO DAILY Repatha SureClick (evolocumab) 140 mg subcut Q2W 4 weeks NS sumatriptan succinate 50 mg PO DAILY topiramate 100 mg PO DAILY 30 days tramadol 100 mg (2 x 50 mg) PO Q8H PRN 30 days triamcinolone acetonide 0.1% 1 appl topical DAILY HPI Comments Details: 53-year-old female coming in today for follow up of thyroid nodules.Otherwise medical history significant for CKD stage 3, , hyperlipidemia, hx nephrectomy, hx gastric bypass around 2018, migraines, GERD, MIGUEL on CPAP anxiety, depression, schizophrenia. Seen today with son who is doing the interpretation . HPI Patient had a CT chest February 01, 2024 which pointed towards an enlarged left lobe of the thyroid. Patient had a head and neck CTA 02/04/2024 due to concerns for stroke, which incidentally showed multinodular thyroid gland. During hospitalisiztion diagnosed with PE , on elequis. 04/29/2024: Ultrasound of the thyroid, I reviewed the images myself which show a right superior 1.5 cm nodule, solid, hypoechoic, with a few cystic spaces, with some punctate echogenic foci, not taller than wide, this is a TR 5 nodule, per SYLVIA guidelines still high suspicion nodule with greater than 50% chance of malignancy. Another right superior 1.3 cm spongiform appearance nodule. Another right lower pole 0.9 cm solid, isoechoic nodule well-circumscribed with no punctate echogenic foci, this is a TR 4 nodule. Another right lower pole 0.6 cm thyroid nodule with spongiform appearance. On the left side is a left cystic lesion dominantly with a very minute solid component, 2.2 cm in size. A left lower pole 1.7 cm solid, hypoechoic nodule which is not taller than wide, well- circumscribed, has punctate echogenic foci, this is a TR 5 nodule. The right superior 1.5 cm TR 5 nodule and the left lower pole 1.7 cm TR 5 nodule both meet criteria for FNA. No diarrhea, reports constipation. Weight stable. Reports intermittent palpitaions. Patient currently denies heat or cold intolerance, hair loss, , mood changes, low energy, changes in appearance of eyes or vision changes, tremors, increased diaphoresis or dry skin. ? Patient denies any difficulty swallowing, pain on swallowing or voice changes or difficulty breathing. Does complain of mild pressure sensation on neck when she lays down flat. Patient denies any history of childhood neck radiation. Denies having ever used lithium, amiodarone or biotin supplements. Patient denies any family history of thyroid cancer or thyroid disease. Interval history 05/29/2024: Underwent FNA of the right superior 1.5 cm nodule and the left lower pole 1.7 cm nodule , both with nondiagnostic cytology unfortunately [place] category 1. Physical exam General: sitting comfortably in no acute distress HEENT: normocephalic/atraumatic, moist oral mucosa Neck: supple, palpable B/l 1-2 cm nodules Cardiac: normal heart sounds Pulm: normal breath sounds B/L, no added breath sounds Abd: not distended, no tenderness Extremities: no edema, no signs of myxedema Laboratory Tests 02/20/24 03/18/24 16:33 12:49 TSH 1.03 0.95 US THYROID 04/29/24 CLINICAL INFORMATION: Nontoxic multinodular goiter. COMPARISON: CTA neck 01/22/2024. TECHNIQUE: Linear transducer grayscale and color Doppler examination with attention to the region of the thyroid. FINDINGS: SIZE: Measurements of the thyroid lobes and nodules are given in sagittal, anteroposterior and transverse dimensions respectively. Right Thyroid Lobe: 4.5 x 1.4 x 1.7 cm, volume 5.6 mL. Parenchyma: The gland echotexture is heterogeneous. Thyroid vascularity is increased. Left Thyroid Lobe: 4.2 x 1.5 x 1.8 cm, volume 6.2 mL. Parenchyma: The gland echotexture is heterogeneous. Thyroid vascularity is increased. Isthmus: 0.2 cm in maximum AP dimension. Estimated total number of nodules greater than or equal to 1 cm: 5. Supervisor [employer] nodules are described as follows: 1. Location: Right upper pole. Size: 1.5 x 0.8 x 1.2 cm, volume 0.73 mL. Nodule characteristics: Composition: Solid/almost completely solid (2). Echogenicity: Isoechoic (1). Shape: Not taller than wide (0). Margins: Smooth (0). Echogenic Foci: None (0). ACR TI-RADS total points: 3 ACR TI-RADS category: 3 2. Location: Right upper pole. Size: 1.3 x 0.6 x 1.2 cm, volume 0.48 mL. Nodule characteristics: Composition: Solid/almost completely solid (2). Echogenicity: Isoechoic (1). Shape: Not taller than wide (0). Margins: Smooth (0). Echogenic Foci: None (0). ACR TI-RADS total points: 3 ACR TI-RADS category: 3 3. Location: Right lower pole. Size: 0.9 x 0.4 x 0.9 cm, volume 0.20 mL. Nodule characteristics: Composition: Solid (2). Echogenicity: Isoechoic (1). Shape: Not taller than wide (0). Margins: Smooth (0). Echogenic Foci: Punctate echogenic foci (3). ACR TI-RADS total points: 6 ACR TI-RADS category: 4 4. Location: Left upper pole. Size: 2.2 x 1.0 x 1.6 cm, volume 1.9 mL. Nodule characteristics: Composition: Mixed cystic and solid (1). Echogenicity: Very hypoechoic (3). Shape: Not taller than wide (0). Margins: Smooth (0). Echogenic Foci: Macrocalcifications (1). ACR TI-RADS total points: 5 ACR TI-RADS category: 4 5. Location: Left lower pole. Size: 1.7 x 1.4 x 1.6 cm, volume 2.0 mL. Nodule characteristics: Composition: Solid (2). Echogenicity: Isoechoic (1). Shape: Not taller than wide (0). Margins: Smooth (0). Echogenic Foci: Punctate echogenic foci (3). ACR TI-RADS total points: 6 ACR TI-RADS category: 4 NODES: No lymphadenopathy is seen in the tissue surrounding the thyroid gland. US/US thyroid IMPRESSION: 2.2 cm LEFT upper TR 4 thyroid nodule and 1.7 cm LEFT lower TR 4 thyroid nodule meet criteria for biopsy. Fine-needle aspiration recommended. This study was presented to me on May 06, 2023 for interpretation. PSA staff will provide results to referring provider at this time. ACR TI-RADS RECOMMENDATION REFERENCE: Ultrasound-guided fine-needle aspiration, followup ultrasound, no further follow up. * TR1 (0 point) and TR2 (2 points): No FNA or follow up. * TR3 (3 points): FNA if more than or equal to 2.5 cm in maximum dimension, followup ultrasound in 1, 3 and 5 years if 1.5 to 2.4 cm in maximum dimension. * TR4 (4-6 points): FNA if more than or equal to 1.5 cm in maximum dimension, followup ultrasound in 1, 2, 3 and 5 years if 1 to 1.4 cm in maximum dimension. * TR5 (more than or equal to 7 points): FNA if more than or equal to 1 cm in maximum dimension, followup ultrasound every year for 5 years if 0.5 to 0.9 cm in maximum dimension. * TR3, TR4 or TR5 nodules that are below the size threshold for followup receive no follow up. Electronically signed by: Suad Marmolejo MD 05/06/2024 08:10 AM [facility] CT angio head neck stroke January 2024 CLINICAL INFORMATION: Left-sided weakness. COMPARISON: CT head 02/04/2024. CT angiogram head and neck 01/22/2024. TECHNIQUE: Warehouse Team Leader images were obtained. A CT angiogram of the head and neck was performed in the arterial phase after the intravenous administration of 70 mL Omnipaque 350. Pre and delayed postcontrast images of the head were also obtained. 3D images were processed on an independent workstation under concurrent supervision. Arterial stenoses are measured in accordance with NASCET criteria or similar method if applicable. This CT examination was performed using dose optimization techniques as appropriate, including one or more of the following: Automated exposure control, iterative reconstruction, and adjustment of technique factors (mA and/or kVp) according to patient size (this includes techniques or standardized protocols for targeted exams where dose is matched to indication/reason for exam). Fleischner Society criteria for the followup of incidental pulmonary nodules was implemented if appropriate. Total exam dose-length product 1408 mGy-cm FINDINGS: Head: There is a tiny developmental venous anomaly traversing the left frontal lobe. Postcontrast images reveal no abnormal intracranial mass or enhancement. There is no intracranial mass effect or midline shift. Lateral and third ventricles are normal. No hydrocephalus. Mckeon-white matter differentiation is preserved and there is no evidence of acute territorial infarct. The calvarium and skull base are intact. No mastoid or middle ear effusion. No active paranasal sinus disease. CT angiogram neck: There is an aberrant right subclavian artery. Origins of the major aortic branches are otherwise patent. Common carotid arteries are normal and the carotid bifurcations are normal. No stenosis of the extracranial internal carotid arteries. The cervical segments of the vertebral arteries are widely patent. CT angiogram head: The intracranial internal carotid arteries are normal. The intradural vertebral artery segments and basilar artery are normal. Anterior, middle, and posterior cerebral artery complexes are normal. No intracranial large vessel occlusion. No identifiable aneurysm or high flow vascular lesion. Other: There is a multinodular thyroid gland. Soft tissues of the neck are otherwise unremarkable. Grossly no pathologically enlarged cervical lymph nodes. Visualized lung apices are clear. No acute osseous finding. CT/CT angio head neck stroke IMPRESSION: Unremarkable examination in that there is no stenosis of the cervical carotid or vertebral arteries. No intracranial large vessel occlusion. No evidence of acute territorial infarct or hemorrhage. No abnormal intracranial mass or enhancement. This critical result was discussed with Dr. Obregon at 3:02 PM on 02/04/2024 and it was ascertained that the content and urgency of the report was understood at the time of direct communication. Electronically signed by: Vincenzo Brizuela MD 02/04/2024 03:[address] ANGIOGRAM OF THE CHEST WITH AND WITHOUT CONTRAST (CT PULMONARY ANGIOGRAM FOR PE) January 2024 CLINICAL INFORMATION: Chest pain. COMPARISON: CT chest performed earlier at 8:53 AM. TECHNIQUE: Prior to contrast administration, noncontrast localization images were obtained. Subsequently, multidetector volumetric imaging was performed of the chest following the administration of 65 mL Omnipaque 350 intravenous contrast. No contrast reaction reported Sagittal, coronal, and MIP oblique sagittal (through the chest only) reformatted images were obtained on the CT workstation, uploaded to PACS, and reviewed. Total exam dose-length product 327 mGy-cm This CT examination was performed using dose optimization techniques as appropriate, variously including the following: *Automated exposure control *Adjustment of mA and/or kV according to patient size (this includes techniques or standardized protocols for targeted exams where dose is matched to indication/reason for exam; i.e. extremities or head) *Use of iterative reconstruction technique FINDINGS: QUALITY OF STUDY/CONTRAST BOLUS: Suboptimal. PULMONARY ARTERIES: Limited evaluation secondary to motion. Pulmonary emboli are noted in the right main pulmonary artery and segmental branches of the right lower lobe. THORACIC AORTA: Aberrant right subclavian artery. Normal caliber of the thoracic aorta. LUNG: Limited evaluation due to respiratory motion. Low lung volumes. Increased mosaic attenuation of lung parenchyma compared to earlier today. No dense consolidation. Central airways are patent. Pulmonary nodules are better visualized on the CT chest from earlier today in view of the limitations of motion of the current study, please refer to the prior examination for management recommendations. PLEURA: No pleural effusion or pneumothorax. MEDIASTINUM: Normal heart size. No pericardial effusion. No evidence of septal bowing. No mediastinal or hilar lymphadenopathy. Asymmetric enlargement of the left lobe of the thyroid along with mild heterogeneity. CHEST WALL/AXILLA: Simple fluid attenuating 0.9 cm nodule in the right breast (6:235). No axillary lymphadenopathy. UPPER ABDOMEN: Mild reflux of contrast into the hepatic veins. Partially seen postsurgical changes from gastric bypass. Cholecystectomy. OSSEOUS STRUCTURES: No acute or suspicious osseous abnormality. CT/CT angio chest PE protocol IMPRESSION: 1. Pulmonary emboli in the right main pulmonary artery and segmental branches of the right lower lobe. 2. Mild reflux of contrast into the hepatic veins that could indicate elevated right-sided heart pressures. 3. Increased mosaic attenuation of the lung parenchyma compared to earlier today which could be related with air trapping in the setting of small airways disease. 4. Pulmonary nodules are better visualized on the CT chest from earlier today in view of the limitations of motion of the current study, please refer to the prior examination for management recommendations. 5. Simple fluid attenuating 0.9 cm nodule in the right breast, possibly a cyst. Recommend correlation with recent priors dedicated breast imaging and if the patient is due further evaluation with outpatient dedicated breast imaging. 6. Asymmetric enlargement of the left lobe of the thyroid with mild heterogeneity. Recommend further evaluation with outpatient thyroid ultrasound. VTE: positive. This critical result was discussed with Dr. Simms at 02/01/2024 7:27 PM CDT and it was ascertained that the content and urgency of the report was understood at the time of direct communication. Electronically signed by: Ivory Titus MD 02/01/2024 08:27 PM EDT [facility] Medical History (Updated 06/09/24 @ 04:59 by Hung Montelongo MD) Pure hypercholesterolemia Left breast mass Pulmonary nodules Chronic kidney disease, stage III (moderate) Obesity (BMI 30-39.9) Renal cyst Diverticulosis Tubular adenoma Asthma Spondylosis of lumbar spine Sacroiliitis Dizziness of unknown etiology Chronic constipation Hx of schizophrenia Panic attacks PTSD (post-traumatic stress disorder) Dyspareunia Pyelonephritis Ingrown toenail Iron deficiency anemia Major depression, recurrent Anxiety Insomnia Tremor Orthostatic hypotension Incisional hernia without obstruction or gangrene Avascular necrosis of femoral head Bilateral carpal tunnel syndrome Peroneal neuropathy Lumbar degenerative disc disease Vitamin D deficiency GERD (gastroesophageal reflux disease) Migraine Hyperlipidemia Surgical History History of left nephrectomy (~1999) History of colonoscopy History of surgery Hx of cystoscopy History of bilateral breast reduction surgery History of hysterectomy History of cholecystectomy History of endoscopy (~06/2016) History of bladder repair surgery (~03/2015) S/P cystoscopy (~07/30/12) S/P panniculectomy History of hernia repair (~03/29/10) History of bladder surgery (~10/2009) History of gastric bypass (~2008) History of incisional hernia repair (~1999) Hx of umbilical hernia repair (~1999) H/O left nephrectomy S/P laparoscopic sleeve gastrectomy Family History Father Liver cancer Mother Breast cancer Sister Lung cancer Other Mental health problem Social History Household Members: Family Housing: House Do you presently have visiting nurse or other home services: No Alcohol intake: never Patient Tobacco Use Status: Never used Tobacco e-Cigarette/Vaping Use: Never Used Second Hand Smoke Exposure: No Advance Directives Date on File: 07/12/21 service: No Current occupational status: disabled Sexual orientation: Straight/Heterosexual Gender identity: Female Cognitive needs: No Hearing needs: No Vision needs: Yes Female Reproductive History Menstrual Age of Menarche: 13 Physical Exam Vital Signs: Last Vital Signs Pulse 62 06/12/24 13:45 BP 112/70 06/12/24 13:45 Pulse Ox 98 06/12/24 13:45 Oxygen Delivery Method Room Air 06/12/24 13:45 BMI result Body Mass Index 28.6 Assessment & Plan Assessment & Plan (1) Multiple thyroid nodules: Code(s): E04.2 - Nontoxic multinodular goiter Category: Medical Plan: 53-year-old female with no past medical history of head or neck radiation with no family history of thyroid cancer, who is coming in today for follow up for multinodular goiter. During January 2024 she was hospitalized for PE, underwent CTA chest/neck which showed multinodular goiter. 04/29/2024: Ultrasound of the thyroid, I reviewed the images myself which show a right superior 1.5 cm nodule, solid, isoechoic, with a few cystic spaces, with some punctate echogenic foci, not taller than wide, this is a TR 5 nodule, per SYLVIA guidelines still high suspicion nodule with greater than 50% chance of malignancy. Another right superior 1.3 cm spongiform appearance nodule. Another right lower pole 0.9 cm solid, isoechoic nodule well-circumscribed with no punctate echogenic foci, this is a TR 4 nodule. Another right lower pole 0.6 cm thyroid nodule with spongiform appearance. On the left side is a left cystic lesion dominantly with a very minute solid component, 2.2 cm in size. A left lower pole 1.7 cm solid, hypoechoic nodule which is not taller than wide, well- circumscribed, has punctate echogenic foci, this is a TR 5 nodule. 05/29/2024: Underwent FNA of the right superior 1.5 cm nodule and the left lower pole 1.7 cm nodule , both with nondiagnostic cytology unfortunately [place] category 1. When I reviewed the ultrasound images from my biopsy, the right superior 1.5 cm nodule that does not appear to have punctate echogenic foci, hence I would also agree with the ultrasound report that this is a TR 3 nodule. We can hold off on repeating the biopsy of this for now and we will keep an eye on this. I would like to repeat biopsy of the left inferior pole 1.7 cm nodule. We will also like to biopsy the left superior 2.2 cm nodule which was classified as TR 5 nodule on the final ultrasound report. We will arrange for FNA of the left superior 2.2 cm and repeat FNA of the left inferior 1.7 cm thyroid nodule at next available opening and patient will follow up with me in clinic thereafter for results and further decision making. Plan: -scheduled for FNA of the left superior 2.2 cm and repeat FNA of the left inferior 1.7 cm thyroid nodule and a follow up 2 weeks after to discuss results Plan See above Orders: Orders 2 US biopsy thyroid Today E04.2 - Nontoxic multinodular goiter Coding Level of Care Code Est Pt Level 3 (82508) Diagnoses Multiple thyroid nodules E04.2
--- OUTSIDE RECORDS SUMMARY | 2024-06-12 15:07 | XMS_ITS | Encounter Summary ---
Author Organization [facility] Address [address] [place] [address] Care Team Providers Care Rippler Name Role Phone Unavailable Primary Care Provider Unavailabl e Encounter Details Date Type Department Care Team (Latest Contact Info) Description 11/30/2020 Abstract [facility] Dental, Provider, DDS Social History Tobacco [...] Description 11/20/2024 1:00 PM EDT Office Visit [facility] [address] [place] [address] Leatha Centeno documented as of this encounter Visit Diagnoses Not on filedocumented in this encounter
--- OUTSIDE RECORDS SUMMARY | 2024-06-12 15:08 | XMS_ITS | Encounter Summary ---
Author Organization [facility] Address [address] [place] [address] [address] [place] [address] Care Team Providers Care Instructional Design Consultant Name Role Phone Unavailable Primary Care Provider Unavailabl e Reason for Visit * Reason Comments Routine Cleaning Dental Exam Encounter Details Date Type Department Care Team ([facility] st Contact Info) Description 05/22/2024 1:00 PM EST Office Visit [facility] [address] [place] [address] Leatha Centeno Dental calculus (Primary Dx); Dental [...] Timeout Time: 1300 (Dental Prophy Adult) Location: [facility] Tooth: Maxilla and Mandible Procedure: Exam, X-rays, and Prophylaxis Verified the above with patient, commercial lending assistant, and provider. Confirmed via patient's chart, intraorally and by radiographs. Ase Certified Technician: not applicable Medical Hx: Vitals: Blood pressure [...] patient including brushing technique and flossing. Recommendations: [place] two times daily, modified thorpe technique, Floss daily, Electric toothbrush, Soft bristle toothbrush, [place] Tongue, Anti-sensitivity toothpaste Recall Frequency: 6 mo [...] Timeout Time: 1300 (Dental Prophy Adult) Location: [facility] Tooth: Maxilla and Mandible Procedure: Exam, X-rays, and Prophylaxis Verified the above with patient, commercial lending assistant, and provider. Confirmed via patient's chart, intraorally and by radiographs. Ase Certified Technician: not applicable Chief Complaint Patient presents with [...] Cancer Risk: Low Risk Oral Hygiene Instructions: [place] two times daily, modified thorpe technique, Floss daily, Electric toothbrush, Soft bristle toothbrush, [place] Tongue Caries Risk Assessment: Low- no risk factor no new carious lesion noticed Assessment/Plan MARY X Ray Prophy Recall Patient tolerated procedure well, all questions answered and expressed understanding. Dismissed in good condition. NV: 6 mos recall Capsule Machine Operator: Leatha Centeno Dentist: Brennon Quevedo DDS documented in this encounter Plan of Treatment Upcoming Encounters Date Type Department Care Team (Late st Contact Info) Description 11/20/2024 1:00 PM EDT Office Visit [facility] [address] [place] [address] Leatha Centeno documented as of this encounter [...]
--- OUTSIDE RECORDS SUMMARY | 2024-06-12 15:08 | XMS_ITS | Encounter Summary ---
Author Organization [facility] Address [address] [place] [address] Care Team Providers Care Firefighting Equipment Specialist Name Role Phone Unavailable Primary Care Provider Unavailabl e Encounter Details Date Type Department Care Team (Latest Contact Info) Description 01/20/2022 Abstract [facility] CONVERSION[facility] Dental, Provider, DDS Social History [...] Description 11/20/2024 1:00 PM EDT Office Visit [facility] [address] [place] [address] Leatha Centeno documented as of this encounter Visit Diagnoses Not on filedocumented in this encounter
--- OUTSIDE RECORDS SUMMARY | 2024-06-12 15:08 | XMS_ITS | Clinical Summary ---
Author Organization [facility] Facility Address [address] [place] [address] Care Team Providers Care Scada Technician Name Role Phone Hung Montelongo MD Primary Care Provider +1- [phone] Allergies Active Allergy Reactions Criticality Noted Date [...] Visit [facility] [address] [place] [address] Alejandro Benz MD [address] [facility] [address] [place] [address] Health Maintenance Due Date Last [...] Sigmoidoscopy 2018 Influenza Vaccine (#1) 2023 Insurance [facility] MEDICAID [facility] MEDICAID Care Teams Scada Technician Relationship Specialty Start Date End Date Hung Montelongo MD [address] [place] [address] PCP - General 05/11/20
--- OUTSIDE RECORDS SUMMARY | 2024-06-12 15:08 | XMS_ITS | Clinical Summary ---
Author Organization [employer] Address [address] [facility] 7t [place] [address] Care Team Providers Care Energy Project Engineer Name Role Phone Unavailable Primary Care Provider [...] Description 05/22/2024 1:00 PM EST Office Visit [facility] [address] [place] [address] Leatha Centeno Dental calculus (Primary Dx); Dental [...] Description 11/20/2024 1:00 PM EDT Office Visit [facility] [address] [place] [address] Leatha Centeno Health Maintenance Due Date Last [...]
== END 2024-06-12 14:12 | disposition home or self-care (01) ==
PROVIDERS: PCP Internal Medicine; Visit Provider Student in an Organized Health Care Education/Training Program
DX: E04.2 Nontoxic multinodular goiter (principal)
CPT/HCPCS: 99213

== ENCOUNTER → 2024-06-12 13:44 | Outpatient (BNVA) | payer OTHER, SELFPAY | PROVIDERS: PCP Internal Medicine; Visit Provider Student in an Organized Health Care Education/Training Program | DX: E04.2 Nontoxic multinodular goiter (principal) | CPT/HCPCS: 99212 ==

== ENCOUNTER 2024-06-17 08:56 | Outpatient (REF) | payer OTHER, SELFPAY ==
--- OUTSIDE RECORDS SUMMARY | 2024-06-17 09:00 | XMS_ITS | Clinical Summary ---
Author Organization [facility] Facility Address [address] [place] [address] Care Team Providers Care Loan Documents Closer Name Role Phone Hung Montelongo MD Primary Care Provider +1- [phone] Allergies Active Allergy Reactions Criticality Noted Date [...] Visit [facility] [address] [place] [address] Alejandro Benz MD 1434 [facility] [address] [place] [address] Health Maintenance Due Date Last [...] Sigmoidoscopy 2018 Influenza Vaccine (#1) 2023 Insurance [facility] MEDICAID [facility] MEDICAID Care Teams Loan Documents Closer Relationship Specialty Start Date End Date Hung Montelongo MD [address] [place] [address] PCP - General 05/11/20
--- OUTSIDE RECORDS SUMMARY | 2024-06-17 09:00 | XMS_ITS | Encounter Summary ---
Author Organization [employer] Address [address] [place] [address] 7t [place] [address] Care Team Providers Care Business Administration Teacher Name Role Phone Unavailable Primary Care Provider Unavailabl e Reason for Visit * Reason Comments Routine Cleaning Dental Exam Encounter Details Date Type Department Care Team ([facility] st Contact Info) Description 05/22/2024 1:00 PM EST Office Visit [facility] [address] [place] [address] Leatha Centeno Dental calculus (Primary Dx); Dental [...] Timeout Time: 1300 (Dental Prophy Adult) Location: [facility] Tooth: Maxilla and Mandible Procedure: Exam, X-rays, and Prophylaxis Verified the above with patient, assistant golf professional, and provider. Confirmed via patient's chart, intraorally and by radiographs. Parimutuel Ticket Seller: not applicable Medical Hx: Vitals: Blood pressure [...] patient including brushing technique and flossing. Recommendations: [place] two times daily, modified thorpe technique, Floss daily, Electric toothbrush, Soft bristle toothbrush, [place] Tongue, Anti-sensitivity toothpaste Recall Frequency: 6 mo [...] Timeout Time: 1300 (Dental Prophy Adult) Location: [facility] Tooth: Maxilla and Mandible Procedure: Exam, X-rays, and Prophylaxis Verified the above with patient, assistant golf professional, and provider. Confirmed via patient's chart, intraorally and by radiographs. Parimutuel Ticket Seller: not applicable Chief Complaint Patient presents with [...] Cancer Risk: Low Risk Oral Hygiene Instructions: [place] two times daily, modified thorpe technique, Floss daily, Electric toothbrush, Soft bristle toothbrush, [place] Tongue Caries Risk Assessment: Low- no risk factor no new carious lesion noticed Assessment/Plan MARY X Ray Prophy Recall Patient tolerated procedure well, all questions answered and expressed understanding. Dismissed in good condition. NV: 6 mos recall Environmental Services Technician: Leatha Centeno Dentist: Brennon Quevedo DDS documented in this encounter Plan of Treatment Upcoming Encounters Date Type Department Care Team (Late st Contact Info) Description 11/20/2024 1:00 PM EDT Office Visit [facility] [address] [place] [address] Leatha Centeno documented as of this encounter Procedures Procedure Name Priority Date/Time Associated Diagnosis Comments PROPHYLAXIS - ADULT Routine 05/22/2024 1 :00 PM EST Dental calculus Dental plaque PERIODIC ORAL EVALUATION - ESTABLISHED PATIENT Routine 05/22/2024 1:00 PM EST ORAL HYGIENE INSTRUCTIONS Routine 05/22/2024 1:00 PM EST Dental calculus Dental plaque INTRAORAL - COMPLETE SERIES OF RADIOGRAPHIC IMAGES Routine 05/22/2024 1:00 PM EST CASE PRESENTATION, DETAILED AND EXTENSIVE TREATMENT PLANNING Routine 05/22/2024 1:00 PM EST documented in this encounter Visit Diagnoses Diagnosis Dental calculus- Primary Accretions on teeth Dental plaque Accretions on teeth documented in this encounter
--- OUTSIDE RECORDS SUMMARY | 2024-06-17 09:00 | XMS_ITS | Encounter Summary ---
Author Organization [employer] [facility] Address [address] [facility] 7t [place] [address] Care Team Providers Care Electrocardiograph Technician Name Role Phone Unavailable Primary Care Provider Unavailabl e Encounter Details Date Type Department Care Team (Latest Contact Info) Description 01/20/2022 Abstract [facility] Dental, Provider, DDS Social History Tobacco [...] Description 11/20/2024 1:00 PM EDT Office Visit [facility] [address] [place] [address] Leatha Centeno documented as of this encounter Visit Diagnoses Not on filedocumented in this encounter
--- OUTSIDE RECORDS SUMMARY | 2024-06-17 09:00 | XMS_ITS | Clinical Summary ---
Author Organization [employer] Address [address] [facility] 7t [place] [address] Care Team Providers Care Green Pipefitter Name Role Phone Unavailable Primary Care Provider [...] Description 05/22/2024 1:00 PM EST Office Visit [facility] [address] [place] [address] Leatha Centeno Dental calculus (Primary Dx); Dental [...] Description 11/20/2024 1:00 PM EDT Office Visit [facility] [address] [place] [address] Leatha Centeno Health Maintenance Due Date Last [...] :00 PM EST Dental calculus Dental plaque CASE PRESENTATION, DETAILED AND EXTENSIVE TREATMENT PLANNING Routine 05/22/2024 1:00 PM EST from Last 3 Months Insurance [facility] MEDICAID STAND ADULT
--- OUTSIDE RECORDS SUMMARY | 2024-06-17 09:00 | XMS_ITS | Encounter Summary ---
Author Organization [facility] Address 75 [facility] 7t [place] [address] Care Team Providers Care Journeyman Carpenter Name Role Phone Unavailable Primary Care Provider Unavailabl e Encounter Details Date Type Department Care Team (Latest Contact Info) Description 11/30/[address] [facility] Dental, Provider, DDS Social History [...] 11/20/2024 1:00 PM EDT Office Visit [facility] [address] [place] [address] Leatha Centeno documented as of this encounter Visit Diagnoses Not on filedocumented in this encounter
[2024-06-17 10:28] LABS: Vitamin D 25-OH Total 46.7 ng/mL (>30)
[2024-06-17 10:38] LABS: Folate 10.4 ng/mL (> or = 4.0); Vitamin B12 547 pg/mL (200-900)
[2024-06-19 18:27] LABS: Zinc 73 mcg/dL (60-130)
[2024-06-19 18:34] LABS: Vitamin A 64 mcg/dL (38-98)
[2024-06-21 13:23] LABS: Vitamin B1 19 nmol/L (8-30)
== END 2024-06-17 08:57 | disposition home or self-care (01) ==
LOC: HO.LAB 08:56
PROVIDERS: Physician Assistant Surgical; PCP Internal Medicine; Visit Provider Internal Medicine
DX: Z98.84 Bariatric surgery status (principal)
CPT/HCPCS: 36415; 82306; 82607; 82746; 84425; 84590; 84630

== ENCOUNTER 2024-06-18 10:30 | Outpatient (AMB) | payer OTHER, SELFPAY ==
--- NOTE | 2024-06-18 10:53 | MHC.OFFVIS ---
Vital Signs 06/18/24 11:03 Height 5 ft 2.5 in Weight 158 lb 11.725 oz BMI 28.6 BP 110/73 Blood Pressure Location Lt brachial Position Sitting Pulse 79 Intake Visit Reasons: 3 months f/u Intake Note: Xenia presents in the office as a 3 month follow up. CC: She states that she is having pains in her epigastric region when she eats. She does have constipation. Termite Exterminator Helper Required: No Termite Exterminator Helper Name: [id number] Allergies atorvastatin Adverse Reaction (Intermediate, Verified 06/20/24 11:31) elevated LFTs rosuvastatin Adverse Reaction (Intermediate, Verified 06/20/24 11:31) Elevated LFTs acetaminophen Adverse Reaction (Unknown, Verified 06/20/24 11:31) Unknown HPI HPI 3 months f/u: Details: LAST VISIT: Abnormal LFTs Constipation Diverticulosis GERD (gastroesophageal reflux disease) Nonalcoholic fatty liver Plan Rule out autoimmune disorders, cancer, hemochromatosis, will order liver ultrasound with elastography as well as liver fibrosis panel. Patient will continue her PPI dose right now. Denies any GI concerning symptoms except for constipation will continue her regimen and will call us if she will have no results. Increase fiber and fluid intake as well as activity to promote better bowel motility. Patient will follow-up in our office in 3 months. If she continues to have elevated enzymes we might send her for liver biopsy. Discussed with patient low-fat, low-salt, low carb and high-protein diet. Patient is agreeable to current plan of care and verbalizes understanding of instructions. She was given the opportunity to ask questions and all questions answered. ? Thank you for allowing me to participate in her Orders Orders Alpha Fetoprotein 03/18/24 R79.89 Ceruloplasmin 03/18/24 R79.89 Liver Fibrosis Pnl 03/18/24 K76.0 Mitochondrial Antibody 03/18/24 R79.89 Gamma Glutamyl Transpeptidase 03/18/24 R74.8 Prothrombin Time INR 03/18/24 R74.8 C Reactive Protein 03/18/24 K58.9 Smooth Muscle Antibody 03/18/24 R79.89 Liver Panel 03/18/24 R74.01 Ferritin 03/18/24 R74.8 US abdomen parham w elastography 03/18/24 K76.0 TODAY'S VISIT: Patient is here today for follow-up and to discuss lab results and ultrasound results. All her lab work were given to patient back in March as well as ultrasound results. We will discuss this again today. Patient had normal blood work, liver enzymes back in March were normal, mild elevation in AST and ALT June 04. Patient is following diet as much as she can. Patient reports epigastric pain postprandially, however her pain and acid reflux is worse at night time. Patient denies eating late at night. Continues to be constipated. Currently is taking Dulcolax. Previously patient took Linzess and reports that she was doing well with that. Patient denies melena, hematochezia. Denies dyspepsia, dysphagia or odynophagia. Liver fibrosis F0, ultrasound with elastography shows normal thickness of the liver. Possible hemangioma seen with no change when compared to previous ultrasound. [facility] Medical History Pure hypercholesterolemia Left breast mass Pulmonary nodules Chronic kidney disease, stage III (moderate) Obesity (BMI 30-39.9) Renal cyst Diverticulosis Tubular adenoma Asthma Spondylosis of lumbar spine Sacroiliitis Dizziness of unknown etiology Chronic constipation Hx of schizophrenia Panic attacks PTSD (post-traumatic stress disorder) Dyspareunia Pyelonephritis Ingrown toenail Iron deficiency anemia Major depression, recurrent Anxiety Insomnia Tremor Orthostatic hypotension Incisional hernia without obstruction or gangrene Avascular necrosis of femoral head Bilateral carpal tunnel syndrome Peroneal neuropathy Lumbar degenerative disc disease Vitamin D deficiency GERD (gastroesophageal reflux disease) Migraine Hyperlipidemia Surgical History History of left nephrectomy (~1999) History of colonoscopy History of surgery Hx of cystoscopy History of bilateral breast reduction surgery History of hysterectomy History of cholecystectomy History of endoscopy (~06/2016) History of bladder repair surgery (~03/2015) S/P cystoscopy (~07/30/12) S/P panniculectomy History of hernia repair (~03/29/10) History of bladder surgery (~10/2009) History of gastric bypass (~2008) History of incisional hernia repair (~1999) Hx of umbilical hernia repair (~1999) H/O left nephrectomy S/P laparoscopic sleeve gastrectomy Family History Father Liver cancer Mother Breast cancer Sister Lung cancer Other Mental health problem Social History Household Members: Family Housing: House Do you presently have visiting nurse or other home services: No Alcohol intake: never Patient Tobacco Use Status: Never used Tobacco e-Cigarette/Vaping Use: Never Used Second Hand Smoke Exposure: No Advance Directives Date on File: 07/12/21 service: No Current occupational status: disabled Sexual orientation: Straight/Heterosexual Gender identity: Female Cognitive needs: No Hearing needs: No Vision needs: Yes Female Reproductive History Menstrual Age of Menarche: 13 Review of Systems Const Denies weight gain and Denies weight loss ENT Reports no additional complaints, Denies dysphagia and Denies odynophagia Card Reports no additional complaints Resp Reports no additional complaints GI Denies abdominal pain, Denies belching, Denies melena, Denies bloating, Denies change in bowel habits, Denies dysphagia, Denies excessive flatus, Denies dyspepsia, Denies heartburn, Denies diarrhea, Denies loose stools, Denies nausea, Denies odynophagia and Denies vomiting Reports no additional complaints Musc Reports no additional complaints Neuro Reports no additional complaints Psych Reports no additional complaints Endo Reports no additional complaints Physical Exam Vital Signs: Last Vital Signs Pulse 79 06/18/24 11:03 BP 110/73 06/18/24 11:03 BMI result Body Mass Index 28.6 Const General: healthy appearing, no acute distress and well developed Nutritional Appearance: well nourished Orientation/consciousness: patient oriented x3 Resp Effort & Inspection: normal respiratory effort, able to speak in complete sentences, no tracheal deviation and symmetric chest movement Auscultation: clear to auscultation bilaterally Cardio Rate: regular rate (58 apical, checked with stethoscope) GI Inspection: Yes normal to inspection and No distended Palpation (GI): Soft to palpation, not firm, Tenderness to palpation present (GI) (Periumbilical area) and Hernia present umbilical Auscultation: normal bowel sounds General: Yes no CVA tenderness Back/Spine/Pelvis Back: no CVA tenderness Skin General skin exam: elasticity normal, turgor normal and dry skin Neuro General: patient oriented x3 Psych Appearance: grossly normal Mental Status: mental status grossly normal Results Reviewed Results Reviewed: Laboratory Tests 03/18/24 04/05/24 06/04/24 12:49 08:44 07:57 Total Bilirubin 0.3 Direct Bilirubin 0.1 GGT 69 H AST 20 32 H 31 ALT 22 51 H 50 H Liver GGT 55 Liver Fibrosis Stage F0 C-Reactive Protein 0.10 Ceruloplasmin 31 Alpha Fetoprotein 3.2 25-OH Vitamin D Total 30.2 Anti-Mitochondrial Ab NEGATIVE Anti-Smooth Muscle Ab <20 ABDOMINAL US: FINDINGS: PANCREAS: The visualized pancreatic head and body are normal in appearance. The remainder of the pancreas is obscured from visualization by the overlying bowel gas. LIVER: The liver demonstrates normal size, contour and echogenicity. There is a hyperechoic area in the right hepatic lobe measuring 1.1 x 0.94 x 1.1 cm most suspicious for an hemangioma. The right lobe measures 12.4 cm in length. The left lobe measures 6.5 cm in length. Normal hepatopedal flow seen in the middle portal vein on Doppler exam Shear wave elastography provides a median stiffness of 1.27 m/s (reference: normal median stiffness is 0.81 - 1.22 m/s). The IQR/median stiffness to assess sampling precision is 0.13 (reference: optimal IQR/median stiffness is under 0.3). GALLBLADDER: The gallbladder has been surgically removed. COMMON BILE DUCT: Normal in caliber measuring 0.40 cm in diameter. RIGHT KIDNEY: No hydronephrosis. There is an anechoic cyst simple cyst upper pole measuring 4.8 x 4.7 x 4.6 cm. There is a complex cyst mid pole measuring 3.9 x 2.3 x 4.1 cm.. The kidney measures 15.2 cm in maximum dimension. FREE FLUID: None seen. US/US abdomen parham w elastography IMPRESSION: 1. Likely hemangioma unchanged to previous ultrasound 02/05/2024. It was not well-visualized on 02/26/2024 ultrasound. Simple cyst upper pole and a complex cyst mid pole right kidney. 2. Elastography: Median liver stiffness measures 1.27 m/s corresponding to high probability normal Assessment & Plan Assessment & Plan (1) Abnormal LFTs: Code(s): R79.89 - Other specified abnormal findings of blood chemistry Category: Medical (2) Constipation: Code(s): K59.00 - Constipation, unspecified Category: Medical Qualifiers: Constipation type: drug induced constipation Qualified Code(s): K59.03 - Drug induced constipation (3) GERD (gastroesophageal reflux disease): Code(s): K21.9 - Gastro-esophageal reflux disease without esophagitis Category: Medical Qualifiers: Esophagitis presence: without esophagitis Qualified Code(s): K21.9 - Gastro-esophageal reflux disease without esophagitis (4) Postprandial abdominal bloating: Code(s): R14.0 - Abdominal distension (gaseous) Plan Discussed with patient blood work and ultrasound. Patient will continue taking pantoprazole daily and famotidine at bedtime. Avoid dietary triggers in late night snacking. Patient continues to be constipated. She was like taking Linzess daily. Patient will call our office if she will have no results after starting Linzess. Increase fluid intake and activity to promote better bowel motility. Patient will follow-up in the office in 3 months, sooner on as needed basis. She is agreeable to this plan and verbalizes understanding of instructions. She was given the opportunity to ask questions and all questions answered. Thank you for allowing me to participate in her care Medications: New linaclotide (Linzess) 145 mcg PO DAILY 30 caps 3RF famotidine (Pepcid) 20 mg PO BEDTIME 30 tabs 3RF K21.9 - Gastro-esophageal reflux disease without esophagitis Coding Level of Care Code Est Pt Level 4 (21155) Complex EM visit Add On G2211 Diagnoses Abnormal LFTs R79.89 Drug-induced constipation K59.03 Constipation type: drug induced constipation Gastroesophageal reflux disease without esophagitis K21.9 Esophagitis presence: without esophagitis Postprandial abdominal bloating R14.0 Time Spent (min) 35 Comment 20 minutes spent with patient and additional 15 minute spent reviewing her records
[2024-06-18 11:03] VITALS: BP 110/73; PULSE 79; BMI 28.6
--- OUTSIDE RECORDS SUMMARY | 2024-06-18 11:29 | XMS_ITS | Clinical Summary ---
Author Organization [facility] Facility Address [address] [place] [address] Care Team Providers Care Head Of Digital Name Role Phone Hung Montelongo MD Primary Care Provider +1- [phone] Allergies Active Allergy Reactions Criticality Noted Date [...] [facility] [address] [place] [address] Alejandro Benz MD [address] [facility] [address] [place] [address] Health Maintenance Due Date Last [...] Sigmoidoscopy 2018 Influenza Vaccine (#1) 2023 Insurance [facility] MEDICAID [facility] MEDICAID Care Teams Head Of Digital Relationship Specialty Start Date End Date Hung Montelongo MD [address] [place] [address] PCP - General 05/11/20
== END 2024-06-18 11:41 | disposition home or self-care (01) ==
PROVIDERS: PCP Internal Medicine; Visit Provider Nurse Practitioner Family
DX: R79.89 Other specified abnormal findings of blood chemistry (principal); K59.03 Drug induced constipation; K21.9 Gastro-esophageal reflux disease without esophagitis; R14.0 Abdominal distension (gaseous)
CPT/HCPCS: 99214; G2211

== ENCOUNTER → 2024-06-18 10:30 | Outpatient (BNVA) | payer OTHER, SELFPAY | PROVIDERS: PCP Internal Medicine; Visit Provider Nurse Practitioner Family | DX: K59.03 Drug induced constipation (principal); K21.9 Gastro-esophageal reflux disease without esophagitis; K57.90 Diverticulosis of intestine, part unspecified, without perforation or abscess without bleeding; R79.89 Other specified abnormal findings of blood chemistry; R14.0 Abdominal distension (gaseous) | CPT/HCPCS: 99212 ==

== ENCOUNTER 2024-06-20 09:03 | Outpatient (AMB) | payer OTHER, SELFPAY ==
--- OUTSIDE RECORDS SUMMARY | 2024-06-20 09:41 | XMS_ITS | Clinical Summary ---
Author Organization [employer] Address [address] [facility] 7t [place] [address] Care Team Providers Care Lubricating Engineer Name Role Phone Unavailable Primary Care [...] Description 05/22/2024 1:00 PM EST Office Visit [facility]ULT D[facility] [address] [place] [address] Leatha Centeno Dental calculus (Primary Dx); Dental [...] Description 11/20/2024 1:00 PM EDT Office Visit [facility]ULT [facility] [address] [place] [address] Leatha Centeno Health Maintenance Due Date Last [...] PM EST from Last 3 Months Insurance [facility] MEDICAID STAND ADULT
--- OUTSIDE RECORDS SUMMARY | 2024-06-20 09:41 | XMS_ITS | Encounter Summary ---
Author Organization [facility] Address [address] [facility] 7t [place] [address] Care Team Providers Care Chief Transfer And Pumphouse Operator Name Role Phone Unavailable Primary Care Provider Unavailabl e Encounter Details Date Type Department Care Team (Latest Contact Info) Description 11/30/2020 Abstract [facility] Dental, Provider, DDS Social History [...] Description 11/20/2024 1:00 PM EDT Office Visit [facility] [address] [place] [address] Leatha Centeno documented as of this encounter Visit Diagnoses Not on filedocumented in this encounter
--- OUTSIDE RECORDS SUMMARY | 2024-06-20 09:41 | XMS_ITS | Encounter Summary ---
Author Organization [employer] Address [address] [place] [address] 7t [place] [address] Care Team Providers Care Security Public Safety Officer Name Role Phone Unavailable Primary Care Provider Unavailabl e Reason for Visit * Reason Comments Routine Cleaning Dental Exam Encounter Details Date Type Department Care Team ([facility] st Contact Info) Description 05/22/2024 1:00 PM EST Office Visit [facility] ADULT DENT[facility] [address] [place] [address] Leatha Centeno Dental calculus (Primary Dx); Dental [...] Timeout Time: 1300 (Dental Prophy Adult) Location: [facility] Tooth: Maxilla and Mandible Procedure: Exam, X-rays, and Prophylaxis Verified the above with patient, physician assistant primary care, and provider. Confirmed via patient's chart, intraorally and by radiographs. Inspector Fabric: not applicable Medical Hx: Vitals: Blood pressure [...] patient including brushing technique and flossing. Recommendations: [place] two times daily, modified thorpe technique, Floss daily, Electric toothbrush, Soft bristle toothbrush, [place] Tongue, Anti-sensitivity toothpaste Recall Frequency: 6 mo [...] Timeout Time: 1300 (Dental Prophy Adult) Location: [facility] Tooth: Maxilla and Mandible Procedure: Exam, X-rays, and Prophylaxis Verified the above with patient, physician assistant primary care, and provider. Confirmed via patient's chart, intraorally and by radiographs. Inspector Fabric: not applicable Chief Complaint Patient presents with [...] Cancer Risk: Low Risk Oral Hygiene Instructions: [place] two times daily, modified thorpe technique, Floss daily, Electric toothbrush, Soft bristle toothbrush, [place] Tongue Caries Risk Assessment: Low- no risk factor no new carious lesion noticed Assessment/Plan MARY X Ray Prophy Recall Patient tolerated procedure well, all questions answered and expressed understanding. Dismissed in good condition. NV: 6 mos recall Solar Electric Practitioner: Leatha Centeno Dentist: Brennon Quevedo DDS documented in this encounter Plan of Treatment Upcoming Encounters Date Type Department Care Team (Late st Contact Info) Description 11/20/2024 1:00 PM EDT Office Visit [facility] [address] [place] [address] Leatha Centeno documented as of this encounter [...]
--- OUTSIDE RECORDS SUMMARY | 2024-06-20 09:41 | XMS_ITS | Clinical Summary ---
Author Organization [facility] Facility Address [address] [place] [id number] Care Team Providers Care Senior Estimator Name Role Phone Hung Montelongo MD Primary Care Provider +1- [phone] Allergies Active Allergy Reactions Criticality Noted Date [...] [facility] [address] [place] [address] Alejandro Benz MD [address] [facility] [address] [place] [address] Health Maintenance Due Date Last [...] Sigmoidoscopy 2018 Influenza Vaccine (#1) 2023 Insurance [facility] MEDICAID [facility] MEDICAID Care Teams Senior Estimator Relationship Specialty Start Date End Date Hung Montelongo MD [address] [place] [address] PCP - General 05/11/20
--- OUTSIDE RECORDS SUMMARY | 2024-06-20 09:41 | XMS_ITS | Encounter Summary ---
Author Organization [facility] Address [address] [facility] 7t [place] [address] Care Team Providers Care Engrosser Name Role Phone Unavailable Primary Care Provider Unavailabl e Encounter Details Date Type Department Care Team (Latest Contact Info) Description 01/20/2022 Abstract [facility] CONVERSIONS Dental, Provider, DDS Social History [...] Description 11/20/2024 1:00 PM EDT Office Visit [facility] ADULT DENTAL [address] [place] [address] Leatha Centeno documented as of this encounter Visit Diagnoses Not on filedocumented in this encounter
--- NOTE | 2024-06-20 10:50 | MHC.OFFVIS ---
Intake Visit Reasons: cysto Intake Note: Patient is Present for Cystoscopy Urology Med: None Antibiotic Allergy: None Blood Thinner: Eliquis URO- G Disposable Cystoscope lot: [id number] exp:08/09/2026 Sample Puller Required: Yes Sample Puller Language: Nail Feeder Name: [id number] Accompanied by: Self / Same As Patient Allergies atorvastatin Adverse Reaction (Intermediate, Verified 06/20/24 11:31) elevated LFTs rosuvastatin Adverse Reaction (Intermediate, Verified 06/20/24 11:31) Elevated LFTs acetaminophen Adverse Reaction (Unknown, Verified 06/20/24 11:31) Unknown Medication List - Last Reconciled 06/20/24 by Mary Rocha MD albuterol sulfate 90 mcg/actuation (Ventolin HFA) 2 puffs inhalation Q6H PRN 30 days alirocumab (Praluent Pen) 75 mg subcut Q2W 4 weeks apixaban (Eliquis) 5 mg PO BID 30 days bisacodyl (Dulcolax (bisacodyl)) 10 mg (2 x 5 mg) PO BEDTIME blood pressure monitor As directed [id number]-[id number]-rhsi 50-325-40 mg 2 tabs PO Q6H PRN 30 days cholecalciferol (vitamin D3) (Vitamin D3) 25 mcg PO DAILY 90 days [CPAP device and all related supplies As directed] docusate sodium 100 mg PO DAILY famotidine (Pepcid) 20 mg PO BEDTIME gabapentin 800 mg PO TID 30 days linaclotide (Linzess) 145 mcg PO DAILY lorazepam 1 mg PO BID PRN 30 days meclizine 25 mg PO TID PRN 30 days melatonin 10 mg (2 x 5 mg) PO BEDTIME PRN 30 days midodrine 10 mg PO TID 30 days nitrofurantoin macrocrystal 50 mg orally may use 30 minutes before of after sexual activity as directed by MD; must administer with a meal/food pantoprazole mg PO DAILY phenazopyridine (Pyridium) 200 mg PO BID topiramate mg PO DAILY tramadol 100 mg (2 x 50 mg) PO Q8H PRN 30 days HPI Comments Details: 06/20/24--Here for cystoscopy--Cystoscopy findings: no suspicious bladder lesions visualized. The patient had discomfort with cystoscope insertion. Pyridium 200 mg b.i.d. for 2 days prescribed. Use of low-dose nitrofurantoin pre or post coital. Follow-up with Nurse practitioner to reevaluate UTI symptoms. 05/03/24--Xenia is a 3-year-old Czech-speaking female with solitary right kidney. She was scheduled cystoscopy. Urine is nitrite positive so she will be empirically started on and urine sent culture. We will reschedule office cystoscopy. Reviewed urine cytology from 03/19/24- negative for malignant cells 03/19/24--Xenia is a very pleasant 53-year-old Czech-speaking female patient of Dr. Montelongo. She has a past medical history of obesity, renal cysts, diverticulosis, asthma, spondylosis of lumbar spine, dizziness of unknown etiology, chronic constipation, schizophrenia, stage 3 chronic kidney disease, panic attacks, PTSD, obstructive sleep apnea, major depression, anxiety, insomnia, tremors, vitamin-D deficiency, GERD, migraines, and hyperlipidemia. She presents to the office today for follow-up of her nephrolithiasis and recurrent urinary tract infections. In discussion with the patient today she reports having followed up with GI yesterday and a urine was obtained as patient reported dysuria, bladder pressure, and foul-smelling urine. Culture remains pending. We discuss treatment given patient with UTI like symptoms and recurrent urinary tract infections. In office urinalysis results reviewed with the patient today positive leukocytes. She has a longstanding history of recurrent urinary tract infections. 02/17, 04/19, 05/21, 10/20, 04/21, 05/23, 06/23, 08/21, 10/21, and 02/20, 01/22, 02/21:Positive for E coli 08/22: Positive for Klebsiella pneumoniae Microgen 01/22: E coli, Enterococcus faecalis, prevotella bivia, and gardnerella vaginalis. During last office visit approximately 2 months ago a retroperitoneal ultrasound was ordered for further assessment evaluation however these official results remain pending however, unofficial report reviewed with the patient today. Left kidney absent/removed. Right kidney with multiple cysts seen. Multiple right renal cysts. Right upper pole 5.6 cm, mid pole 3.2 cm, lower pole 3.9 cm with septations small 2-3 mm nonobstructing right renal calculus. When asked she reports at times she does not utilize Estrace cream as prescribed however we discussed importance in doing so. We discussed methenamine and vitamin-C for suppression given recurrent urinary tract infections. However, she discusses her reluctancy taking medications as she feels she takes many medications. She reports a longstanding history of constipation with hemorrhoids and followed up with GI yesterday. She does report being on a bowel regimen however does continue with constipation. We discussed at length correlation of constipation and recurrent urinary tract infections as well as lower urinary tract symptoms. She otherwise denies incontinence, nocturia, hematuria, changes to urinary stream, flank pain, fever, and or chills. PVR 0 mL. Discussed in office cystoscopy for further assessment evaluation. She otherwise offers no other issues or concerns at this time. [facility] Medical History Pure hypercholesterolemia Left breast mass Pulmonary nodules Chronic kidney disease, stage III (moderate) Obesity (BMI 30-39.9) Renal cyst Diverticulosis Tubular adenoma Asthma Spondylosis of lumbar spine Sacroiliitis Dizziness of unknown etiology Chronic constipation Hx of schizophrenia Panic attacks PTSD (post-traumatic stress disorder) Dyspareunia Pyelonephritis Ingrown toenail Iron deficiency anemia Major depression, recurrent Anxiety Insomnia Tremor Orthostatic hypotension Incisional hernia without obstruction or gangrene Avascular necrosis of femoral head Bilateral carpal tunnel syndrome Peroneal neuropathy Lumbar degenerative disc disease Vitamin D deficiency GERD (gastroesophageal reflux disease) Migraine Hyperlipidemia Surgical History History of left nephrectomy (~1999) History of colonoscopy History of surgery Hx of cystoscopy History of bilateral breast reduction surgery History of hysterectomy History of cholecystectomy History of endoscopy (~06/2016) History of bladder repair surgery (~03/2015) S/P cystoscopy (~07/30/12) S/P panniculectomy History of hernia repair (~03/29/10) History of bladder surgery (~10/2009) History of gastric bypass (~2008) History of incisional hernia repair (~1999) Hx of umbilical hernia repair (~1999) H/O left nephrectomy S/P laparoscopic sleeve gastrectomy Family History Father Liver cancer Mother Breast cancer Sister Lung cancer Other Mental health problem Social History Household Members: Family Housing: House Do you presently have visiting nurse or other home services: No Alcohol intake: never Patient Tobacco Use Status: Never used Tobacco e-Cigarette/Vaping Use: Never Used Second Hand Smoke Exposure: No Advance Directives Date on File: 07/12/21 service: No Current occupational status: disabled Sexual orientation: Straight/Heterosexual Gender identity: Female Cognitive needs: No Hearing needs: No Vision needs: Yes Female Reproductive History Menstrual Age of Menarche: 13 Review of Systems Const All systems reviewed & are unremarkable except as noted in HPI and below Reports no additional complaints Eyes Reports no additional complaints ENT Reports no additional complaints Card Reports no additional complaints Resp Reports no additional complaints GI Reports no additional complaints Reports as per HPI Musc Reports no additional complaints Skin/Breast Reports system reviewed and no additional complaints, except as documented Neuro Reports no additional complaints Psych Reports no additional complaints Endo Reports no additional complaints Catarino/Lymph Reports no additional complaints Aller/Immun Reports no additional complaints Office Procedures Cystoscopy Consent Discussed risk and benefit or proposed procedure with the patient. Information consent for procedure given to the patient. Discussed technical aspects, risks, benefits and alternatives in full. Addressed all of the patient's questions and concerns regarding the procedure. The patient demonstrated knowledge and understanding. They wish to proceed with this procedure. Preparation The patient was prepped in the usual manner. A heat sealing machine operator was present and in the room. Genitalia was prepped with betadine solution in a sterile manner. Lidocaine Jelly 2% was placed into the urethra and 16Fr flexible Olympus cystoscope was inserted into the meatus after adequate lubrication. Time out per protocol performed. Bladder Inspection Bladder Inspection: The bladder was inspected in its entirety with utilization retroflexion displaying: Tumor(s): no suspicious bladder lesions visualized Trabeculation: NA Mucosal Erthema: mild Orifices: normal shape and position Urethra: normal Cystoscopy findings: no suspicious bladder lesions visualized [id number] DISPOSABLE SCOPE URO-G FLEXIBLE SCOPE Procedure code (CPT) selection complete Office Meds lidocaine HCl 2 % mucosal jelly in applicator Performing Provider: Mary Rocha MD [facility] Administered by: Андрей Sanchez LPN on 06/20/24 11:46 Dose Route Admin Location Dispensed Lot Number Expiration Date NDC Community Engagement Coordinator 10 mL intra-urethral 10 mL ciprofloxacin HCl 500 mg tablet Performing Provider: Mary Rocha MD [facility] Administered by: Андрей Sanchez LPN on 06/20/24 11:46 Dose Route Admin Location Dispensed Lot Number Expiration Date NDC Community Engagement Coordinator 500 mg PO 1 tab Results AMB Urinalysis, Automated UA Leukoctes 0 Asad/uL Last Edit by Sandy Zarate A on 06/20/24 11:50 UA Nitrite Negative Last Edit by Sandy Zarate A on 06/20/24 11:50 UA Urobilinogen 0.2 mg/dL Last Edit by Sandy Zarate, A on 06/20/24 11:50 UA Protein 0 mg/dL Last Edit by Sandy Zarate A on 06/20/24 11:50 UA pH 6.0 Last Edit by Sandy Zarate A on 06/20/24 11:50 UA Blood 80 [place]rell/uL Last Edit by Sandy Zarate, A on 06/20/24 11:50 UA Specific [place] 1.015 Last Edit by Sandy Zarate A on 06/20/24 11:50 UA Ketone Negative Last Edit by Sandy Zarate A on 06/20/24 11:50 UA Bilirubin 0 mg/dL Last Edit by Sandy Zarate, A on 06/20/24 11:50 UA Glucose 0 mg/dL Last Edit by Sandy Zarate A on 06/20/24 11:50 Results Reviewed Results Reviewed: Laboratory Last Values Urine pH (Auto) 6.0 06/20/24 11:45 Specific [place] (Auto) 1.015 06/20/24 11:45 Urine Protein (Auto) 0 mg/dL 06/20/24 11:45 Glucose (UA)(Auto) 0 mg/dL 06/20/24 11:45 Urine Ketones (Auto) Negative 06/20/24 11:45 Urine Blood (Auto) 80 [place]/uL 06/20/24 11:45 Urine Nitrite (Auto) Negative 06/20/24 11:45 Urine Bilirubin (Auto) 0 mg/dL 06/20/24 11:45 Urine Urobilinogen (Auto) 0.2 mg/dL 06/20/24 11:45 Leukocyte Esterase (Auto) 0 Asad/uL 06/20/24 11:45 Assessment & Plan Assessment & Plan (1) Complicated urinary tract infection: Code(s): N39.0 - Urinary tract infection, site not specified Category: Medical (2) Renal cyst: Code(s): N28.1 - Cyst of kidney, acquired Category: Medical (3) Solitary kidney, acquired: Comment: (+) Hx of left nephrectomy >20 years ago due to recurrent kidney stones Code(s): Z90.5 - Acquired absence of kidney Category: Medical Plan Pyridium 200 mg b.i.d. for 2 days prescribed. Use of low-dose nitrofurantoin pre or post coital. Follow-up with Nurse practitioner to reevaluate UTI symptoms. Orders: Orders AMB Urinalysis Automated Today Z13.9 - Encounter for screening, unspecified AMB Cystoscopy Today N39.0 - Urinary tract infection, site not specified Medications: New phenazopyridine (Pyridium) 200 mg PO BID 6 tabs 0RF urinary burning nitrofurantoin macrocrystal 50 mg orally may use 30 minutes before of after sexual activity as directed by MD; must administer with a meal/food 30 caps 1RF Patient Instructions: The patient had an opportunity to ask questions regarding treatment plan. The patient expressed understanding and agreement with the above treatment plan. The patient is aware they should contact our office by phone for worsening of their current condition or the appearance of new symptoms. Compliance is encouraged with any medications and followup testing that is ordered. It is a privilege to be allowed the opportunity to participate in the urologic care of your patient. If you have any questions or concerns regarding treatment for the above conditions please do not hesitate to contact me. The office telephone contact is [phone]. This note is constructed in part using voice recognition software. While every effort has been made to ensure accuracy senior sales director errors may have been included. Yours sincerely, Mary Rocha MD Coding Level of Care Code Est Pt Level 4 (19802) Diagnoses Complicated urinary tract infection N39.0 Renal cyst N28.1 Solitary kidney, acquired Z90.5 CPT Codes Cystoscopy - CPT: [id number] ([id number])
== END 2024-06-20 12:21 | disposition home or self-care (01) ==
PROVIDERS: PCP Internal Medicine; Visit Provider Urology
DX: N39.0 Urinary tract infection, site not specified (principal); N28.1 Cyst of kidney, acquired; Z90.5 Acquired absence of kidney; Z13.9 Encounter for screening, unspecified
CPT/HCPCS: 52000

== ENCOUNTER → 2024-06-20 09:03 | Outpatient (BNVA) | payer OTHER, SELFPAY | PROVIDERS: PCP Internal Medicine; Visit Provider Urology | DX: N39.0 Urinary tract infection, site not specified (principal); N28.1 Cyst of kidney, acquired; Z90.5 Acquired absence of kidney | CPT/HCPCS: 52000; 81003 ==

== ENCOUNTER 2024-06-25 13:44 | Outpatient (RCR) | payer OTHER, SELFPAY ==
--- NOTE | 2024-05-28 14:01 | MHC.PT.EP ---
[facility] [place] Office [place] Office [place] Office [address] Dimitrios Chandler [address] [phone] F: [phone] F: [phone] F: [phone] F: [phone] Physical Therapy Plan of Care Date of Evaluation: 05/28/24 Date of Surgery: Diagnosis: sacrococcygeal disorders, sacroilitis (MD Dx) lumbar radiculopathy and weakness in core musculature with hx of multiple abdominal surgeries (RS) Assessment: Xenia is a 53 y.o. Dominican speaking female who is referred to PT by Dr. Brando Smith MD, with Dx of sacrococcygeal disorders, sacroilitis. She also presents with lumbar radiculopathy and weakness in core musculature with hx of multiple abdominal surgeries and notes current need for umbilical hernia repair. Patient impairments include pain, poor posture, limited ROM, weakness in core, hips, knees, ankles. Patient current functional limitations are prolonged sitting, standing or walking, dressing, bathing. Patient will benefit from skilled PT to address aforementioned impairments and functional limitations to meet established goals. Prognosis is fair due to chronicity of symptoms. Frequency and Duration: The patient will be seen 1-2x/week for 4 weeks Short Term Goals: 2 weeks Patient demonstrates consistency and independence with HEP to self manage symptoms. 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 Pt presents with increased glut med strength 4/5 to improve gait pattern to perform prolonged ambulation in grocery store. Treatment Plan: Modalities to reduce pain, spasms and effusion. Manual therapy to restore motion and function. Therapeutic exercise to improve strength and flexibility. Neuromuscular re-education for posture and balance. Therapeutic activities to return to functional activities of daily living. Electronically signed by: Chelsie Hall, PT, DPT Please sign and return to therapist. Thank you for your referral.
--- NOTE | 2024-06-25 16:15 | MHC.PT.DC ---
[facility] [place] Office [place] [facility] [place] Office [address] Dimitrios Chandler [address] [phone] F: [phone] F: [phone] F: [phone] F: [phone] Physical Therapy Discharge Report Diagnosis: sacrococcygeal disorders, sacroilitis ( Dx) lumbar radiculopathy and weakness in core musculature with hx of multiple abdominal surgeries (RS) Date of Surgery: Date of Evaluation: 05/28/24 Date of Discharge: 06/25/24 Treatments to Date: 4 Cancellations to Date: 1 No Shows to Date: 0 Discharge Status: Independent with HEP Patient Elected to Stop Recommend MD Follow-up Discharge Summary: Xenia reports no change in her symptoms since starting PT. She shows small improvements in mobility, ROM and strength but pain remains unchanged. She continues with pain in her low back, upper back and neck, also points to pain L lower quadrant. She has been talking to MD about umbilical hernia repair. Pt is discharged today to FUP with MD to discuss imaging and other treatment options. Electronically signed by: Chelsie Hall, PT, DPT Please sign and return to therapist. Thank you for your referral.
== END 2024-06-25 16:18 | disposition home or self-care (01) ==
LOC: HO.PT 13:44
PROVIDERS: PCP Internal Medicine; Visit Provider Anesthesiology
DX: M53.3 Sacrococcygeal disorders, not elsewhere classified (principal); M46.1 Sacroiliitis, not elsewhere classified
CPT/HCPCS: 97110; 97162; 97530; 97535

== ENCOUNTER 2024-07-11 13:37 | Outpatient (REF) | payer OTHER, SELFPAY ==
--- NOTE | ~2024-07-11 | MM_ITS ---
EXAMINATION: MM DIAGNOSTIC DIGITAL BREAST TOMOSYNTHESIS, LEFT Limited left breast ultrasound. CLINICAL INFORMATION: Physician felt palpable lump in the left breast at 7:00. COMPARISON: Mammography: Comparison is made with available priors]. TECHNIQUE: Digital breast tomosynthesis is performed in both the craniocaudal and mediolateral oblique views along with computer-aided detection (CAD). Synthesized 2D images are generated from the tomosynthesis. FINDINGS: There are scattered areas of fibroglandular density (ACR BI-RADS breast composition Category b). Status post reduction mammoplasty. There are no significant masses, abnormal calcifications, or other abnormalities. Targeted color Doppler ultrasound scanning in the area of the physician felt palpable lump in the left lower inner quadrant demonstrates normal fibroglandular breast tissue. There is no sonographic abnormality. MM/MM tomosynthesis diagnostic LT IMPRESSION: No mammographic or sonographic abnormality to account for the physician felt palpable lump. Recommend clinical evaluation follow-up. ASSESSMENT: BI-RADS BI-RADS 2 - Benign Findings RECOMMENDATION: 1 year F/U Results were provided to the patient at time of visit by the technologist. This patient's information was entered into a reminder system with a target due date for their next mammogram. Electronically signed by: Emily Brennan DO 07/11/2024 03:03 PM EDT
--- OUTSIDE RECORDS SUMMARY | 2024-07-11 17:11 | XMS_ITS | Encounter Summary ---
Author Organization [facility] Address [address] [facility] 7t [place] [address] Care Team Providers Care Dressing Room Attendant Name Role Phone Unavailable Primary Care Provider Unavailabl e Encounter Details Date Type Department Care Team (Latest Contact Info) Description 01/20/2022 Abstract [facility] CONVERSIONS Dental, Provider, DDS Social History [...] Description 11/20/2024 1:00 PM EDT Office Visit [facility] ADULT DENTAL [address] [place] [address] Leatha Centeno documented as of this encounter Visit Diagnoses Not on filedocumented in this encounter
--- OUTSIDE RECORDS SUMMARY | 2024-07-11 17:11 | XMS_ITS | Clinical Summary ---
Author Organization [facility] Facility Address [address] [place] [address] Care Team Providers Care Surfacer Name Role Phone Hung Montelongo MD Primary Care Provider +1- [phone] Allergies Active Allergy Reactions Criticality Noted Date [...] Visit [facility] [address] [place] [address] Alejandro Benz MD [address] [facility] [address] [place] [address] Health Maintenance Due Date Last [...] Sigmoidoscopy 2018 Influenza Vaccine (#1) 2023 Insurance [facility] MEDICAID [facility] MEDICAID Care Teams Surfacer Relationship Specialty Start Date End Date Hung Montelongo MD [address] [place] [address] PCP - General 05/11/20
--- OUTSIDE RECORDS SUMMARY | 2024-07-11 17:11 | XMS_ITS | Clinical Summary ---
Author Organization [employer] Address [address] [facility] [facility] [address] [place] [address] Care Team Providers Care Pile Driving Supervisor Name Role Phone Unavailable Primary Care [...] MG capsule Take by mouth. Activ e Active Problems Problem Noted Date Diagnosed Date Laceration of right cheek 05/16/2023 Xerostomia 04/26/2023 Dental plaque 10/10/2022 Localized gingival recession, minimal 10/10/2022 Encounters Date Type Department Care Team Description 05/22/2024 1:00 PM EST Office Visit [facility] ADULT DENT[facility] [address] [place] [address] Leatha Centeno Dental calculus (Primary Dx); Dental [...] 1:00 PM EDT Office Visit [facility] ADULT [facility] [address] [place] [address] Leatha Centeno Health Maintenance Due Date Last [...] from Last 3 Months Insurance [facility] MEDICAID STAND ADULT
--- OUTSIDE RECORDS SUMMARY | 2024-07-11 17:11 | XMS_ITS | Encounter Summary ---
Author Organization [facility] Address [address] [place] [address] Care Team Providers Care Manufacturing Machine Operator Name Role Phone Unavailable Primary Care Provider Unavailabl e Encounter Details Date Type Department Care Team (Latest Contact Info) Description 11/30/2020 Abstract [facility] CONVERSIONS Dental, Provider, DDS Social [...] 1:00 PM EDT Office Visit [facility] ADULT DENTAL [address] [place] [address] Leatha Centeno documented as of this encounter Visit Diagnoses Not on filedocumented in this encounter
== END 2024-07-11 13:38 | disposition home or self-care (01) ==
LOC: HO.MAMMO 13:37
PROVIDERS: PCP Internal Medicine; Visit Provider Advanced Practice Midwife
DX: N63.24 Unspecified lump in the left breast, lower inner quadrant (principal)
CPT/HCPCS: 76642; 77061; 77065

== ENCOUNTER → 2024-07-11 14:30 | Outpatient (BNV) | payer OTHER, SELFPAY | PROVIDERS: PCP Internal Medicine; Visit Provider Internal Medicine | DX: N63.23 Unspecified lump in the left breast, lower outer quadrant (principal) | CPT/HCPCS: 76642; 77061; 77065 ==

== ENCOUNTER 2024-07-15 13:27 | Outpatient (AMB) | payer OTHER, SELFPAY ==
[2024-07-15 13:36] VITALS: BP 100/67; PULSE 77; O2SAT 98; BMI 29.9
--- NOTE | 2024-07-15 13:36 | A.OFFVIS_ITS ---
Vital Signs 07/15/24 13:36 Height 5 ft 2.5 in Weight 166 lb 4 oz BMI 29.9 BP 100/67 Blood Pressure Location Lt brachial Position Sitting Pulse 77 Pulse Source Pulse Oximeter Pulse Oximetry (%) 98 Oxygen Delivery Method Room Air Intake Visit Reasons: FU after PT Intake Note: Pain today 09/07 Media Specialist Required: No Accompanied by: Self / Same As Patient Allergies atorvastatin Adverse Reaction (Intermediate, Verified 07/15/24 13:37) elevated LFTs rosuvastatin Adverse Reaction (Intermediate, Verified 07/15/24 13:37) Elevated LFTs acetaminophen Adverse Reaction (Unknown, Verified 07/15/24 13:37) Unknown HPI Comments Details: Xenia is back in my office after she completed physical therapy. She completed 8 sessions of physical therapy she performed home exercise program as I instructed her to do. She continues home exercise program. Her pain not at all affected by physical therapy. He requests me to perform sacroiliac joint injections as we were planning before. Her insurance denied her bilateral therapeutic sacroiliac joint injection based on the fact that she did not have physical therapy. Prior: She was scheduled in October 2023 to go for bilateral therapeutic sacroiliac joint injection. Unfortunately she was lost for the follow-up and never came for the injection. She reports today that her memory is not very good and she does not recall why she was not able to go for the injection. We requested her to provide us the telephone number of her spouse. This way we will know more details about why she is not showing up for the injection. She was under care of Joanna with sacroiliac joint problem and after that she was under my care, she received therapeutic sacroiliac joint injection on the right which gave her 50% pain improvement in 2021. After that she received diagnostic bilateral sacroiliac joint injection and unfortunately she was lost for the follow-up. Due to mental health crisis she was admitted to psychiatric facility and was not able to receive any injections. Now she is back requesting me to perform therapeutic sacroiliac joint injection. [facility] Medical History Pure hypercholesterolemia Left breast mass Pulmonary nodules Chronic kidney disease, stage III (moderate) Obesity (BMI 30-39.9) Renal cyst Diverticulosis Tubular adenoma Asthma Spondylosis of lumbar spine Sacroiliitis Dizziness of unknown etiology Chronic constipation Hx of schizophrenia Panic attacks PTSD (post-traumatic stress disorder) Dyspareunia Pyelonephritis Ingrown toenail Iron deficiency anemia Major depression, recurrent Anxiety Insomnia Tremor Orthostatic hypotension Incisional hernia without obstruction or gangrene Avascular necrosis of femoral head Bilateral carpal tunnel syndrome Peroneal neuropathy Lumbar degenerative disc disease Vitamin D deficiency GERD (gastroesophageal reflux disease) Migraine Hyperlipidemia Surgical History History of left nephrectomy (~1999) History of colonoscopy History of surgery Hx of cystoscopy History of bilateral breast reduction surgery History of hysterectomy History of cholecystectomy History of endoscopy (~06/2016) History of bladder repair surgery (~03/2015) S/P cystoscopy (~07/30/12) S/P panniculectomy History of hernia repair (~03/29/10) History of bladder surgery (~10/2009) History of gastric bypass (~2008) History of incisional hernia repair (~1999) Hx of umbilical hernia repair (~1999) H/O left nephrectomy S/P laparoscopic sleeve gastrectomy Family History Father Liver cancer Mother Breast cancer Sister Lung cancer Other Mental health problem Social History Household Members: Family Housing: House Do you presently have visiting nurse or other home services: No Alcohol intake: never Patient Tobacco Use Status: Never used Tobacco e-Cigarette/Vaping Use: Never Used Second Hand Smoke Exposure: No Advance Directives Date on File: 07/12/21 service: No Current occupational status: disabled Sexual orientation: Straight/Heterosexual Gender identity: Female Cognitive needs: No Hearing needs: No Vision needs: Yes Female Reproductive History Menstrual Age of Menarche: 13 Review of Systems Const All systems reviewed & are unremarkable except as noted in HPI and below Physical Exam Vital Signs: Last Vital Signs Pulse 77 07/15/24 13:36 BP 100/67 07/15/24 13:36 Pulse Ox 98 07/15/24 13:36 Oxygen Delivery Method Room Air 07/15/24 13:36 BMI result Body Mass Index 29.9 Const General: comfortable, no acute distress, well developed, alert and awake Eyes Pupils: Equal, round and reactive pupils present EOM: EOMs intact bilaterally Chest Chest palpation & inspection: normal inspection of the chest Resp Effort & Inspection: normal respiratory effort, able to speak in complete sentences, normal respiratory pattern, no audible wheezes and no cough Cardio Jugular venous distension: no JVD Back/Spine/Pelvis Other: ? SACROILIAC JOINT?tenderness to palpation right SIJ, + glenny, Delphine finger,Gaenslen's,Compression/distraction positive on right.? INSPECTION:?normal curvature of spine.? RANGE OF MOTION?decreased side bending on right.? PALPATION:?no vertebral spine tenderness,sacroiliac joint tenderness on right.? STRAIGHT LEG RAISING TEST:?positive at 45 degrees on right in L4/5 distribution.? MOTOR SYSTEM:?5/5 bilateral lower extremities.? SENSORY EXAM:?normal to light touch and pinprick in C5-T1 and L2-S1,no dysethesias, reported paresthesias right L4/5 distribution.? REFLEXES:?symmetrical 2+.? GAIT:?favoring affected side.? Neuro Cranial nerves: Yes Equal, round and reactive pupils present Assessment & Plan Assessment & Plan (1) Sacroiliitis: Code(s): M46.1 - Sacroiliitis, not elsewhere classified Category: Medical (2) Spondylosis of lumbar spine: Code(s): M47.816 - Spondylosis without myelopathy or radiculopathy, lumbar region Category: Medical (3) Sacroiliac joint dysfunction of both sides: Code(s): M53.3 - Sacrococcygeal disorders, not elsewhere classified Category: Medical Plan The plan of care as above. She completed physical therapy and continues home exercise program. I will schedule again this patient for bilateral therapeutic sacroiliac joint injection under sedation . Coding Level of Care Code Est Pt Level 3 (42323) Diagnoses Sacroiliitis M46.1 Spondylosis of lumbar spine M47.816 Sacroiliac joint dysfunction of both sides M53.3
--- OUTSIDE RECORDS SUMMARY | 2024-07-15 15:38 | XMS_ITS | Clinical Summary ---
Author Organization [facility] Facility Address [address] [place] [address] Care Team Providers Care Professor Of Criminal Justice Name Role Phone Hung Montelongo MD Primary Care Provider [phone] Allergies Active Allergy Reactions Criticality Noted Date [...] Visit [facility] [address] [place] [id number] Alejandro Benz MD [address] [facility] [address] [place] [address] Health Maintenance Due Date Last [...] Sigmoidoscopy 2018 Influenza Vaccine (#1) 2023 Insurance [facility] MEDICAID [facility] MEDICAID Care Teams Professor Of Criminal Justice Relationship Specialty Start Date End Date Hung Montelongo MD [address] [place] [address] PCP - General 05/11/20
--- OUTSIDE RECORDS SUMMARY | 2024-07-15 15:38 | XMS_ITS | Encounter Summary ---
Author Organization [facility] Address [address] [place] [address] Care Team Providers Care Medical Transcription Supervisor Name Role Phone Unavailable Primary Care Provider Unavailabl e Encounter Details Date Type Department Care Team (Latest Contact Info) Description 01/20/2022 Abstract [facility] CONVERSIONS Dental, Provider, DDS Social [...] 1:00 PM EDT Office Visit [facility] ADULT DENTAL [address] [place] [address] Leatha Centeno documented as of this encounter Visit Diagnoses Not on filedocumented in this encounter
--- OUTSIDE RECORDS SUMMARY | 2024-07-15 15:38 | XMS_ITS | Encounter Summary ---
Author Organization [facility] Address [address] [place] [address] Care Team Providers Care Warehouse Team Leader Name Role Phone Unavailable Primary Care Provider Unavailabl e Encounter Details Date Type Department Care Team (Latest Contact Info) Description 11/30/2020 Abstract [facility] CONVERSIONS Dental, Provider, DDS Social [...] Description 11/20/2024 1:00 PM EDT Office Visit [facility] ADULT DENTAL [address] [place] [address] Leatha Centeno documented as of this encounter Visit Diagnoses Not on filedocumented in this encounter
--- OUTSIDE RECORDS SUMMARY | 2024-07-15 15:38 | XMS_ITS | Clinical Summary ---
Author Organization [facility] Address [address] [facility] [address] [place] [address] Care Team Providers Care Executive Associate Name Role Phone Unavailable Primary Care Provider [...] Description 05/22/2024 1:00 PM EST Office Visit [facility] ADULT DENTAL [address] [place] [address] Leatha Centeno Dental calculus (Primary Dx); Dental [...] Description 11/20/2024 1:00 PM EDT Office Visit [facility] ADULT DENTAL [address] [place] [address] Leatha Centeno Health Maintenance Due Date Last [...] PM EST from Last 3 Months Insurance D[facility]AL-[facility] MEDICAID STAND ADULT
== END 2024-07-15 13:44 | disposition home or self-care (01) ==
LOC: HO.PMC 13:28
PROVIDERS: PCP Internal Medicine; Visit Provider Anesthesiology
DX: M46.1 Sacroiliitis, not elsewhere classified (principal); M47.816 Spondylosis without myelopathy or radiculopathy, lumbar region; M53.3 Sacrococcygeal disorders, not elsewhere classified
CPT/HCPCS: 99213

== ENCOUNTER → 2024-07-15 13:27 | Outpatient (BNVA) | payer OTHER, SELFPAY | PROVIDERS: PCP Internal Medicine; Visit Provider Anesthesiology | DX: M46.1 Sacroiliitis, not elsewhere classified (principal); M47.816 Spondylosis without myelopathy or radiculopathy, lumbar region; M53.3 Sacrococcygeal disorders, not elsewhere classified | CPT/HCPCS: 99212 ==

== ENCOUNTER 2024-07-24 08:37 | Outpatient (REF) | payer OTHER, SELFPAY ==
--- NOTE | 2024-07-24 09:29 | PM.PROC ---
Brief Operative Note Date of procedure: 07/24/24 Pre-op diagnosis: left lower 1.7 cm and left superior 2.2 cm thyroid nodule FNA biopsy Post-op diagnosis: same Procedure: THYROID FINE NEEDLE ASPIRATION PROCEDURE NOTE ? PROCEDURE PERFORMED: Ultrasound-guided FNA of thyroid nodule ? OPERATORS: Dr. Luna Mejia ? INDICATION: left lower 1.7 cm and left superior 2.2 cm thyroid nodule ; FNA performed to assess for malignancy ? DESCRIPTION OF PROCEDURE: The indications for FNA (to assess for malignancy) were reviewed with the patient in detail. Potential complications (e.g., bleeding, infection, damage to local structures, absence of clear diagnosis after FNA) were reviewed. Alternatives to FNA including conservative observation or surgery were described. The patient understood and agreed to proceed. This was documented by the signing of the written informed consent form. A time-out was performed to confirm the patient's identity and the site of planned FNA. The nodules of interest were identified using ultrasound (14 MHz linear array probe). The sites of FNA was then draped in the usual fashion and carefully cleaned and prepared using alcohol swabs. The skin at the previously-identified site of needle insertion was iced and sprayed with numbing spray. first for the left inferior 1.7 cm nodule , Under ultrasound guidance, 5__ passes were performed using a 1.5-inch, 25-gauge needle, and sample was obtained via capillary action. The needle tip was clearly visualized to be within the nodule at the time of sampling for _5_ of _5_ passes. then for the left superior 2.2 cm nodule , Under ultrasound guidance, 4__ passes were performed using a 1.5-inch, 25-gauge needle, and sample was obtained via capillary action. The needle tip was clearly visualized to be within the nodule at the time of sampling for _4 of _4 passes. The patient tolerated the procedure well. There were no immediate complications. A small adhesive bandage was applied, and the patient was advised to take acetaminophen (rather than NSAIDs) for any discomfort and to report any signs of inflammation/infection or marked swelling. IMPRESSION: Technically successful ultrasound-guided fine needle aspiration of left lower 1.7 cm and left superior 2.2 cm thyroid nodules. PLAN: The patient was advised that I will provide follow-up regarding the cytology result and any subsequent plans. Luna Mejia MD Endocrinology Attending Condition: stable Disposition: same day
== END 2024-07-24 08:38 | disposition home or self-care (01) ==
LOC: HO.US 08:37
PROVIDERS: PCP Internal Medicine; Visit Provider Student in an Organized Health Care Education/Training Program
DX: E04.2 Nontoxic multinodular goiter (principal)
CPT/HCPCS: 10005; 10006; 88112; 88173; 88305

== ENCOUNTER → 2024-07-24 08:37 | Outpatient (BNV) | payer OTHER, SELFPAY | PROVIDERS: PCP Internal Medicine; Visit Provider Student in an Organized Health Care Education/Training Program | DX: E04.2 Nontoxic multinodular goiter (principal) | CPT/HCPCS: 10005; 10006 ==

== ENCOUNTER 2024-08-05 13:37 | Outpatient (AMB) | payer OTHER, SELFPAY ==
[2024-08-05 13:51] VITALS: BP 114/70; PULSE 68; O2SAT 98; BMI 30.7
--- NOTE | 2024-08-05 13:51 | MHC.OFFVIS ---
Vital Signs 08/05/24 13:51 Height 5 ft 2.5 in Weight 170 lb 13.732 oz BMI 30.7 BP 114/70 Blood Pressure Location Rt brachial Position Sitting Pulse 68 Pulse Source Pulse Oximeter Pulse Oximetry (%) 98 Oxygen Delivery Method Room Air Intake Visit Reasons: Pulmonary Nodules Allergies atorvastatin Adverse Reaction (Intermediate, Verified 07/15/24 13:37) elevated LFTs rosuvastatin Adverse Reaction (Intermediate, Verified 07/15/24 13:37) Elevated LFTs acetaminophen Adverse Reaction (Unknown, Verified 07/15/24 13:37) Unknown HPI Comments Details: The patient is a 53 yo F with asthma, HLD, orthostatic hypotension, hx nephrectomy, hx gastric bypass, migraines, GERD, MIGUEL on CPAP anxiety, depression, schizophrenia admitted to on 01/24/24for depression with SI. On 02/04/24, she was transferred to the hospitalist service due to L-sided weakness that the patient had noted 3-4d ago in association with throbbing headache and chest pains. CT of the head and CTA of the head and neck was negative for acute stroke, bleed, or large vessel occlusion. As for a recently diagnosed PE on 02/01/24 involving the R main PA and segmental branches of the RLL, she had no dyspnea or hypoxic. Therapeutic enoxaparin was transitioned to apixaban and she should take 10 mg bid until 02/12/24, then change to 5 mg bid. She was transferred back to for resumption of inpatient psychiatric care. The patient is tolerating the anticoagulation. 05/15/2024 the patient is here for a pulmonary hospital follow-up visit. She was diagnosed with acute pulmonary embolism primarily affecting her right lung. She did have also evidence of pulmonary nodules and some degree of mosaic pattern pneumonitis on her CT scan. She was placed on Eliquis initially the loading dose and nose tolerating the maintenance dose without any minor major bleeding. She was subsequently discharged from [facility]. She was getting ECT but she has not been able to feel his ECT because the therapy. In addition to that she was found to have a thyroid nodule that was going to be biopsied sometime the end of the month. The patient is able to get the biopsy and stop the Eliquis but she needs bridge with Eliquis since she did have significant clot burden and was considered an unprovoked clot. We did talk about Lovenox and making sure that she gets her shot at the same time she would her Eliquis twice a day for the times instructed to do so prior to her biopsy. The patient will get a repeat CTA to make sure she has stable pulmonary nodules and to make sure the clot burden has subsided. Also, the seems to be a family history of blood clots. Will request a hypercoagulable workup and also check her kidney function specially since she only has 1 functional kidney. She will follow-up in 3 months. If she has any issues she will call for an earlier assessment. 08/05/2024 the patient is here for a pulmonary follow-up visit. Overall the patient has been doing fair. Her breathing overall has been better. She does tolerate the Eliquis as prescribed twice a day. She is very adherent to the medicine. Denies any pleuritic discomfort. Denies any minor major bleeding. The patient was supposed to have a CTA to reassess her blood clots and also her pulmonary nodules 1 measuring up to 7 mm in size. Unfortunately for an unclear reason her insurance denied it. Her last CAT scan was in January of 2024 now we are delaying her care with the CAT scan that was denied. Will go ahead and reorder the CAT scan again, to follow-up the 7 mm pulmonary nodule in to make sure that her emboli have subsided. She also had evidence of mosaic pattern pneumonitis on the CT scan and we can follow-up to see if those are better as well. Her blood work was reviewed. No evidence of any hypercoagulable state that we can explain. Therefore, this is considered unprovoked event. For now she should stay on the medicine anticoagulation. She can stay on the medicine and take the prophylactic dose after year. The other option is after a year consider stopping the Eliquis and monitoring closely her D-dimer. Will have that discussion further to the day. She has also seen Hematology in the past. The patient is also using her CPAP. CPAP therapy has been affecting beneficial. Although she is having hard time with the mask. Is causing her to have a rash in her face. I did give her an N30 I air touch mask that she can try to see if this tolerate her skin better and will assess. The patient will return in 6 months I which point will talk about her anticoagulation. In the meantime she should undergo the CTA to reassess her pulmonary emboli and hopefully we do not see any evidence of chronic thromboembolic disease. And also follow-up with a 7 mm pulmonary nodule in view of her unprovoked event cancers in differential. She did have a biopsy already of the thyroid nodule. She will follow-up with Endocrine regarding those results. [facility] Medical History Pure hypercholesterolemia Left breast mass Pulmonary nodules Chronic kidney disease, stage III (moderate) Obesity (BMI 30-39.9) Renal cyst Diverticulosis Tubular adenoma Asthma Spondylosis of lumbar spine Sacroiliitis Dizziness of unknown etiology Chronic constipation Hx of schizophrenia Panic attacks PTSD (post-traumatic stress disorder) Dyspareunia Pyelonephritis Ingrown toenail Iron deficiency anemia Major depression, recurrent Anxiety Insomnia Tremor Orthostatic hypotension Incisional hernia without obstruction or gangrene Avascular necrosis of femoral head Bilateral carpal tunnel syndrome Peroneal neuropathy Lumbar degenerative disc disease Vitamin D deficiency GERD (gastroesophageal reflux disease) Migraine Hyperlipidemia Surgical History History of left nephrectomy (~1999) History of colonoscopy History of surgery Hx of cystoscopy History of bilateral breast reduction surgery History of hysterectomy History of cholecystectomy History of endoscopy (~06/2016) History of bladder repair surgery (~03/2015) S/P cystoscopy (~07/30/12) S/P panniculectomy History of hernia repair (~03/29/10) History of bladder surgery (~10/2009) History of gastric bypass (~2008) History of incisional hernia repair (~1999) Hx of umbilical hernia repair (~1999) H/O left nephrectomy S/P laparoscopic sleeve gastrectomy Family History Father Liver cancer Mother Breast cancer Sister Lung cancer Other Mental health problem Social History Household Members: Family Housing: House Do you presently have visiting nurse or other home services: No Alcohol intake: never Patient Tobacco Use Status: Never used Tobacco e-Cigarette/Vaping Use: Never Used Second Hand Smoke Exposure: No Advance Directives Date on File: 07/12/21 service: No Current occupational status: disabled Sexual orientation: Straight/Heterosexual Gender identity: Female Cognitive needs: No Hearing needs: No Vision needs: Yes Female Reproductive History Menstrual Age of Menarche: 13 Review of Systems Const Denies weight gain and Denies weight loss ENT Reports no additional complaints Card Denies chest pain Resp Reports no additional complaints GI Reports no additional complaints Musc Reports no additional complaints Skin/Breast Denies rash Neuro Reports no additional complaints Psych Reports no additional complaints Endo Reports no additional complaints Physical Exam Vital Signs: Last Vital Signs Pulse 68 08/05/24 13:51 BP 114/70 08/05/24 13:51 Pulse Ox 98 08/05/24 13:51 Oxygen Delivery Method Room Air 08/05/24 13:51 BMI result Body Mass Index 30.7 Last Vital Signs Temp 98.3 F 02/08/24 08:00 Pulse 58 02/08/24 08:00 Resp 18 02/08/24 08:00 BP 91/53 L 02/08/24 08:00 Pulse Ox 96 02/08/24 08:00 O2 Del Method Room Air 02/08/24 08:00 Const General: comfortable HEENT Head: Yes normocephalic Neck Neck: Yes supple Chest Chest palpation & inspection: normal inspection of the chest Resp Effort & Inspection: normal respiratory effort and able to speak in complete sentences Cardio Heart sounds: S1 normal heart sound present and S2 normal heart sound present Skin General skin exam: no rashes or lesions noted Extrem General: No edema Results Reviewed Results Reviewed: [address] [address] [address] Scan Report Signed Patient: Xenia Graves MR#: [id number] : 1970 Acct:[id number] Age/Sex: 53 / F ADM Date: 01/23/24 Loc: HO.PM5 517-[address]: Umang Lau MD Ordering Physician: Roby Flores MD Date of Service: 02/01/24 Procedure(s): CT chest wo IV con Accession Number(s): [id number] cc: Roby Flores MD; Hung Montelongo MD~ EXAMINATION: CT CHEST WITHOUT CONTRAST CLINICAL INFORMATION: Chest pain COMPARISON: Chest radiograph 10/25/2022 TECHNIQUE: Multidetector volumetric CT imaging of the chest was done. Axial MIP volume rendering provided. Sagittal and coronal reformatted images were obtained. This CT examination was performed using dose optimization techniques as appropriate, variously including the following: *Automated exposure control *Adjustment of mA and/or kV according to patient size (this includes techniques or standardized protocols for targeted exams where dose is matched to indication/reason for exam; i.e. extremities or head) *Use of iterative reconstruction technique DLP: 152 mGy-cm FINDINGS: LUNGS: There is mild emphysema and bronchial thickening. There is a groundglass nodular density in the right middle lobe abutting the fissure measuring 3.2 x 1.3 x 1.1 cm (5:279 and 7:78). There is a right lower lobe perifissural nodular density measuring 7.1 x 2.4 x 3.6 mm (5:319 and 7:84). This has increased in size when compared to the 01/25/2024 study (prior 4:34). A few tiny punctate granulomas are present (see saved lyons images). The lungs are otherwise clear. MEDIASTINUM: The mediastinum is normal. CORONARY ARTERY CALCIFICATION: None visualized on this study. PLEURA: There is no pleural effusion. No pleural mass or thickening. AXILLA: No lymphadenopathy. UPPER ABDOMEN: There is been surgery at the GE junction with gastric bypass. A tiny hiatal hernia is present . Status post cholecystectomy. Left kidney absent. A benign right upper pole 5.2 cm Bosniak class I renal cyst is noted which requires no additional imaging or follow up. There is subcortical splenic granulomas. There is evidence of a left lateral abdominal wall hernia repair OSSEOUS STRUCTURES: Unremarkable. CT/CT chest wo IV con IMPRESSION: 1. There is a 3.2 cm groundglass nodular density in the right middle lobe. 2. There is a 7.1 mm right lower lobe perifissural nodule which has increased in size when compared to the 01/25/2024 study. 3. Other incidental findings as described above. 6. A 6 months follow-up chest CT scan recommended to document the stability of the pulmonary nodules. This is what would be recommended if the patient was in a lung screening program. Fleischner guidelines were followed. Electronically signed by: Diego Oconnell MD 02/01/2024 11:30 AM EDT Dictated By: Diego Oconnell MD Signed By: <Electronically signed by Diego Oconnell MD in OV> 02/01/24 1130 DD/ TD/TT: 02/01/24 09 Manager Care Management: SS [address] [address] [address] Scan Report Signed Patient: Xenia Graves MR#: [id number] : 1970 Acct:[id number] Age/Sex: 53 / F ADM Date: 01/23/24 [facility]: Umang Lau MD Ordering Physician: Maya Villanueva PA-C Date of Service: 02/01/24 Procedure(s): CT angio chest PE protocol Accession Number(s): [id number] cc: Hung Montelongo MD; Maya Villanueva PA-C~ EXAMINATION: CT ANGIOGRAM OF THE CHEST WITH AND WITHOUT CONTRAST (CT PULMONARY ANGIOGRAM FOR PE) CLINICAL INFORMATION: Chest pain. COMPARISON: CT chest performed earlier at 8:53 AM. TECHNIQUE: Prior to contrast administration, noncontrast localization images were obtained. Subsequently, multidetector volumetric imaging was performed of the chest following the administration of 65 mL Omnipaque 350 intravenous contrast. No contrast reaction reported Sagittal, coronal, and MIP oblique sagittal (through the chest only) reformatted images were obtained on the CT workstation, uploaded to PACS, and reviewed. Total exam dose-length product 327 mGy-cm This CT examination was performed using dose optimization techniques as appropriate, variously including the following: *Automated exposure control *Adjustment of mA and/or kV according to patient size (this includes techniques or standardized protocols for targeted exams where dose is matched to indication/reason for exam; i.e. extremities or head) *Use of iterative reconstruction technique FINDINGS: QUALITY OF STUDY/CONTRAST BOLUS: Suboptimal. PULMONARY ARTERIES: Limited evaluation secondary to motion. Pulmonary emboli are noted in the right main pulmonary artery and segmental branches of the right lower lobe. THORACIC AORTA: Aberrant right subclavian artery. Normal caliber of the thoracic aorta. LUNG: Limited evaluation due to respiratory motion. Low lung volumes. Increased mosaic attenuation of lung parenchyma compared to earlier today. No dense consolidation. Central airways are patent. Pulmonary nodules are better visualized on the CT chest from earlier today in view of the limitations of motion of the current study, please refer to the prior examination for management recommendations. PLEURA: No pleural effusion or pneumothorax. MEDIASTINUM: Normal heart size. No pericardial effusion. No evidence of septal bowing. No mediastinal or hilar lymphadenopathy. Asymmetric enlargement of the left lobe of the thyroid along with mild heterogeneity. CHEST WALL/AXILLA: Simple fluid attenuating 0.9 cm nodule in the right breast (6:235). No axillary lymphadenopathy. UPPER ABDOMEN: Mild reflux of contrast into the hepatic veins. Partially seen postsurgical changes from gastric bypass. Cholecystectomy. OSSEOUS STRUCTURES: No acute or suspicious osseous abnormality. CT/CT angio chest PE protocol IMPRESSION: 1. Pulmonary emboli in the right main pulmonary artery and segmental branches of the right lower lobe. 2. Mild reflux of contrast into the hepatic veins that could indicate elevated right-sided heart pressures. 3. Increased mosaic attenuation of the lung parenchyma compared to earlier today which could be related with air trapping in the setting of small airways disease. 4. Pulmonary nodules are better visualized on the CT chest from earlier today in view of the limitations of motion of the current study, please refer to the prior examination for management recommendations. 5. Simple fluid attenuating 0.9 cm nodule in the right breast, possibly a cyst. Recommend correlation with recent priors dedicated breast imaging and if the patient is due further evaluation with outpatient dedicated breast imaging. 6. Asymmetric enlargement of the left lobe of the thyroid with mild heterogeneity. Recommend further evaluation with outpatient thyroid ultrasound. VTE: positive. This critical result was discussed with Dr. Simms at 02/01/2024 7:27 PM CDT and it was ascertained that the content and urgency of the report was understood at the time of direct communication. Electronically signed by: Ivory Titus MD 02/01/2024 08:27 PM EDT Dictated By: Ivory Titus Signed By: <Electronically signed by Ivory Titus in OV> 02/01/242026 DD/ 1834 TD/TT: 02/01/24 1852 Manager Care Management: Assessment & Plan Assessment & Plan (1) Pulmonary embolism: Code(s): I26.99 - Other pulmonary embolism without acute cor pulmonale Category: Medical Qualifiers: Pulmonary embolism type: multiple subsegmental (without acute cor pulmonale) Qualified Code(s): I26.94 - Multiple subsegmental thrombotic pulmonary emboli without acute cor pulmonale (2) Pulmonary nodules: Comment: 7mm nodule Code(s): R91.8 - Other nonspecific abnormal finding of lung field Category: Medical (3) Thyroid nodule: Code(s): E04.1 - Nontoxic single thyroid nodule Category: Medical (4) MIGUEL (obstructive sleep apnea): Comment: mild degree of sleep apnea. The AHI was 5/hr and oxygen mitul was 81%. Code(s): G47.33 - Obstructive sleep apnea (adult) (pediatric) Category: Medical Plan continue Eliquis 5mg BID repeat CTA to ass for chronic thromboembolic disease and also 7mm nodule on CT chest 01/2024. Ordered again since her insurance is delaying care continue APAP, trial N30i airtouch medium F/U 6 months Orders: Orders CT angio chest PE protocol Today I26.94 - Multiple subsegmental thrombotic pulmonary emboli without acute cor pulmonale, R91.8 - Other nonspecific abnormal finding of lung field Basic Metabolic Panel Today I26.94 - Multiple subsegmental thrombotic pulmonary emboli without acute cor pulmonale Coding Level of Care Code Tele New Pt Level 4 (50404) Complex EM visit Add On G2211 Diagnoses Multiple subsegmental pulmonary emboli without acute cor pulmonale I26.94 Pulmonary embolism type: multiple subsegmental (without acute cor pulmonale) Pulmonary nodules R91.8 Thyroid nodule E04.1 MIGUEL (obstructive sleep apnea) G47.33 Time Spent (min) 17
--- OUTSIDE RECORDS SUMMARY | 2024-08-05 16:11 | XMS_ITS | Clinical Summary ---
Author Organization [employer] Address [address] [facility] [address] [place] [address] Care Team Providers Care Acquisition Consultant Name Role Phone Unavailable Primary Care [...] Description 05/22/2024 1:00 PM EST Office Visit [facility] [address] [place] [address] Leatha Centeno Dental calculus (Primary Dx); Dental [...] Description 11/20/2024 1:00 PM EDT Office Visit [facility] [address] [place] [address] Leatha Centeno Health Maintenance Due Date Last [...] PM EST from Last 3 Months Insurance [facility] MEDICAID STAND ADULT
--- OUTSIDE RECORDS SUMMARY | 2024-08-05 16:11 | XMS_ITS | Encounter Summary ---
Author Organization [facility] Address [address] [facility] [address] [place] [address] Care Team Providers Care Die Mechanic Name Role Phone Unavailable Primary Care Provider Unavailabl e Encounter Details Date Type Department Care Team (Latest Contact Info) Description 01/20/2022 Abstract [facility] CONVERSION[facility] Dental, Provider, DDS Social History [...] Description 11/20/2024 1:00 PM EDT Office Visit [facility] [address] [place] [address] Leatha Centeno documented as of this encounter Visit Diagnoses Not on filedocumented in this encounter
--- OUTSIDE RECORDS SUMMARY | 2024-08-05 16:11 | XMS_ITS | Encounter Summary ---
Author Organization [facility] Address [address] [facility] [address] [place] [address] Care Team Providers Care Cardiology Consultants Name Role Phone Unavailable Primary Care Provider Unavailabl e Encounter Details Date Type Department Care Team (Latest Contact Info) Description 11/30/2020 Abstract [facility] CONVERSIONS Dental, Provider, DDS Social [...] Description 11/20/2024 1:00 PM EDT Office Visit [facility] [address] [place] [address] Leatha Centeno documented as of this encounter Visit Diagnoses Not on filedocumented in this encounter
--- OUTSIDE RECORDS SUMMARY | 2024-08-05 16:11 | XMS_ITS | Clinical Summary ---
Author Organization [facility] Address [address] [place] [address] Care Team Providers Care Laborer Mine Name Role Phone Hung Montelongo MD Primary Care Provider [phone]- [phone] Allergies Active Allergy Reactions Criticality Noted Date [...] Visit [facility] [address] [place] [id number] Alejandro Benz MD [address] [facility] [address] [place] [address] Health Maintenance Due Date Last Done Comments Breast Cancer Screening 1970 Pneumococcal Vaccine: Pediat rics (0 to 5 Years) and At-Risk Patients (6 to 64 Years) (1 of 2 - PCV) 11/18/1975 Hepatitis B Vaccine (1 of 3 - 19+ 3-dose series) 11/17 Colorectal Cancer Screening: Annual FOBT 2018 Colorectal Cancer Screening: Colonoscopy 2018 Colorectal Cancer Screening: Sigmoidoscopy 2018 Influenza Vaccine (Season Ended) 2024 Insurance [facility] MEDICAID [facility] MEDICA[facility] Care Teams Laborer Mine Relationship Specialty Start Date End Date Hung Montelongo MD [address] [place] [address] PCP - General 05/11/20
== END 2024-08-05 14:22 | disposition home or self-care (01) ==
LOC: HO.HPS 13:37
PROVIDERS: PCP Internal Medicine; Visit Provider Hospitalist
DX: I26.94 Multiple subsegmental thrombotic pulmonary emboli without acute cor pulmonale (principal); R91.8 Other nonspecific abnormal finding of lung field; E04.1 Nontoxic single thyroid nodule; G47.33 Obstructive sleep apnea (adult) (pediatric)
CPT/HCPCS: 99214; G2211

== ENCOUNTER → 2024-08-05 13:37 | Outpatient (BNVA) | payer OTHER, SELFPAY | PROVIDERS: PCP Internal Medicine; Visit Provider Hospitalist | DX: I26.94 Multiple subsegmental thrombotic pulmonary emboli without acute cor pulmonale (principal); R91.8 Other nonspecific abnormal finding of lung field; G47.33 Obstructive sleep apnea (adult) (pediatric); F32.A Depression, unspecified; E04.1 Nontoxic single thyroid nodule; Z99.89 Dependence on other enabling machines and devices | CPT/HCPCS: 99212 ==

== ENCOUNTER 2024-08-07 12:47 | Outpatient (AMB) | payer OTHER, SELFPAY ==
--- NOTE | 2024-08-07 13:05 | A.OFFVIS_ITS ---
Vital Signs 08/07/24 13:06 Height 5 ft 2.5 in Weight 170 lb BMI 30.6 BP 102/72 Blood Pressure Location Rt brachial Position Sitting Respiration 16 Pulse 63 Pulse Source Pulse Oximeter Pulse Oximetry (%) 97 Oxygen Delivery Method Room Air Intake Visit Reasons: Back Pain Documentation Supervisor Required: Yes Documentation Supervisor Services: Documentation Supervisor Present Documentation Supervisor Name: Earlene Allergies atorvastatin Adverse Reaction (Intermediate, Verified 08/07/24 13:08) elevated LFTs rosuvastatin Adverse Reaction (Intermediate, Verified 08/07/24 13:08) Elevated LFTs acetaminophen Adverse Reaction (Unknown, Verified 08/07/24 13:08) Unknown Medication List - Last Reconciled 08/07/24 by Halina Mac LPN albuterol sulfate 90 mcg/actuation (Ventolin HFA) 2 puffs inhalation Q6H PRN 30 days alirocumab (Praluent Pen) 75 mg subcut Q2W 4 weeks apixaban (Eliquis) 5 mg PO BID 30 days bisacodyl (Dulcolax (bisacodyl)) 10 mg (2 x 5 mg) PO BEDTIME blood pressure monitor As directed hbzlitkkkh-wkkvsbtssmsdf-totc 50-325-40 mg 2 tabs PO Q6H PRN 30 days cholecalciferol (vitamin D3) (Vitamin D3) 25 mcg PO DAILY 90 days [CPAP device and all related supplies As directed] docusate sodium 100 mg PO DAILY famotidine (Pepcid) 20 mg PO BEDTIME gabapentin 800 mg PO TID 30 days linaclotide (Linzess) 145 mcg PO DAILY lorazepam 1 mg PO BID PRN 30 days meclizine 25 mg PO TID PRN 30 days melatonin 10 mg (2 x 5 mg) PO BEDTIME PRN 30 days midodrine 10 mg PO TID 30 days nitrofurantoin macrocrystal 50 mg orally may use 30 minutes before of after sexual activity as directed by MD; must administer with a meal/food pantoprazole mg PO DAILY phenazopyridine (Pyridium) 200 mg PO BID topiramate mg PO DAILY tramadol 100 mg (2 x 50 mg) PO Q8H PRN 30 days verapamil mg PO HPI Comments Details: Xenia is back in my office with complaints on lower back pain.. She completed 8 sessions of physical therapy she performed home exercise program as I instructed her to do. She continues home exercise program. Her pain not at all affected by physical therapy. In the past she received diagnostic sacroiliac joint injection, the pain relief was significant. The patient states that we would like to receive this injection.Her insurance denied her bilateral therapeutic sacroiliac joint injection based on the fact that she did not have physical therapy. We will try to appeal this decision. The patient requests me to prescribe her short script opioids until the end of the opioid. I explained to the patient that do not prescribe short script opioids. Prior: She was scheduled in October 2023 to go for bilateral therapeutic sacroiliac joint injection. Unfortunately she was lost for the follow-up and never came for the injection. She reports today that her memory is not very good and she does not recall why she was not able to go for the injection. We requested her to provide us the telephone number of her spouse. This way we will know more details about why she is not showing up for the injection. She was under care of Joanna with sacroiliac joint problem and after that she was under my care, she received therapeutic sacroiliac joint injection on the right which gave her 50% pain improvement in 2021. After that she received diagnostic bilateral sacroiliac joint injection and unfortunately she was lost for the follow-up. Due to mental health crisis she was admitted to psychiatric facility and was not able to receive any injections. Now she is back requesting me to perform therapeutic sacroiliac joint injection. [facility] Medical History Pure hypercholesterolemia Left breast mass Pulmonary nodules Chronic kidney disease, stage III (moderate) Obesity (BMI 30-39.9) Renal cyst Diverticulosis Tubular adenoma Asthma Spondylosis of lumbar spine Sacroiliitis Dizziness of unknown etiology Chronic constipation Hx of schizophrenia Panic attacks PTSD (post-traumatic stress disorder) Dyspareunia Pyelonephritis Ingrown toenail Iron deficiency anemia Major depression, recurrent Anxiety Insomnia Tremor Orthostatic hypotension Incisional hernia without obstruction or gangrene Avascular necrosis of femoral head Bilateral carpal tunnel syndrome Peroneal neuropathy Lumbar degenerative disc disease Vitamin D deficiency GERD (gastroesophageal reflux disease) Migraine Hyperlipidemia Surgical History History of left nephrectomy (~1999) History of colonoscopy History of surgery Hx of cystoscopy History of bilateral breast reduction surgery History of hysterectomy History of cholecystectomy History of endoscopy (~06/2016) History of bladder repair surgery (~03/2015) S/P cystoscopy (~07/30/12) S/P panniculectomy History of hernia repair (~03/29/10) History of bladder surgery (~10/2009) History of gastric bypass (~2008) History of incisional hernia repair (~1999) Hx of umbilical hernia repair (~1999) H/O left nephrectomy S/P laparoscopic sleeve gastrectomy Family History Father Liver cancer Mother Breast cancer Sister Lung cancer Other Mental health problem Social History Household Members: Family Housing: House Do you presently have visiting nurse or other home services: No Alcohol intake: never Patient Tobacco Use Status: Never used Tobacco e-Cigarette/Vaping Use: Never Used Second Hand Smoke Exposure: No Advance Directives Date on File: 07/12/21 service: No Current occupational status: disabled Sexual orientation: Straight/Heterosexual Gender identity: Female Cognitive needs: No Hearing needs: No Vision needs: Yes Female Reproductive History Menstrual Age of Menarche: 13 Review of Systems Const All systems reviewed & are unremarkable except as noted in HPI and below Physical Exam Vital Signs: Last Vital Signs Pulse 63 08/07/24 13:06 Resp 16 08/07/24 13:06 BP 102/72 08/07/24 13:06 Pulse Ox 97 08/07/24 13:06 Oxygen Delivery Method Room Air 08/07/24 13:06 BMI result Body Mass Index 30.6 Const General: comfortable, no acute distress, well developed, alert and awake Eyes Pupils: Equal, round and reactive pupils present EOM: EOMs intact bilaterally Chest Chest palpation & inspection: normal inspection of the chest Resp Effort & Inspection: normal respiratory effort, able to speak in complete sentences, normal respiratory pattern, no audible wheezes and no cough Cardio Jugular venous distension: no JVD Back/Spine/Pelvis Other: ? SACROILIAC JOINT?tenderness to palpation right SIJ, + glenny, Delphine finger,Gaenslen's,Compression/distraction positive on right.? INSPECTION:?normal curvature of spine.? RANGE OF MOTION?decreased side bending on right.? PALPATION:?no vertebral spine tenderness,sacroiliac joint tenderness on right.? STRAIGHT LEG RAISING TEST:?positive at 45 degrees on right in L4/5 distribution.? MOTOR SYSTEM:?5/5 bilateral lower extremities.? SENSORY EXAM:?normal to light touch and pinprick in C5-T1 and L2-S1,no d ysethesias, reported paresthesias right L4/5 distribution.? REFLEXES:?symmetrical 2+.? GAIT:?favoring affected side.? Neuro Cranial nerves: Yes Equal, round and reactive pupils present Assessment & Plan Assessment & Plan (1) Sacroiliitis: Code(s): M46.1 - Sacroiliitis, not elsewhere classified Category: Medical (2) Spondylosis of lumbar spine: Code(s): M47.816 - Spondylosis without myelopathy or radiculopathy, lumbar region Category: Medical (3) Sacroiliac joint dysfunction of both sides: Code(s): M53.3 - Sacrococcygeal disorders, not elsewhere classified Category: Medical Plan We will appeal the decision of the insurance company to restrict the access of the patient to the necessary injection. We were planning to perform repeated bilateral sacroiliac joint therapeutic injection. She completed physical therapy and continues home exercise program. Patient Instructions: lead security officer Earlene Kebede was helping us to maintain this conversation in Marshallese. Coding Level of Care Code Est Pt Level 3 (07437) Diagnoses Sacroiliitis M46.1 Spondylosis of lumbar spine M47.816 Sacroiliac joint dysfunction of both sides M53.3
[2024-08-07 13:06] VITALS: BP 102/72; PULSE 63; RESP 16; O2SAT 97; BMI 30.6
--- OUTSIDE RECORDS SUMMARY | 2024-08-07 14:47 | XMS_ITS | Clinical Summary ---
Author Organization [employer] Address [address] [facility] 7t [place] [address] Care Team Providers Care Commanding Officer Garage Name Role Phone Unavailable Primary Care Provider [...] Description 05/22/2024 1:00 PM EST Office Visit [facility] [address] [place] [address] Leatha Centeno Dental calculus (Primary Dx); Dental [...] Description 11/20/2024 1:00 PM EDT Office Visit [facility] [address] [place] [address] Leatha Centeno Health Maintenance Due Date Last [...] PM EST from Last 3 Months Insurance [facility] MEDICAID STAND ADULT
--- OUTSIDE RECORDS SUMMARY | 2024-08-07 14:47 | XMS_ITS | Encounter Summary ---
Author Organization [employer] [facility] Address [address] [facility] 7t [place] [address] Care Team Providers Care Filler Shredder Helper Name Role Phone Unavailable Primary Care Provider Unavailabl e Encounter Details Date Type Department Care Team (Latest Contact Info) Description 01/20/2022 Abstract [facility] CONVERSION[facility] Dental, Provider, DDS Social History [...] Description 11/20/2024 1:00 PM EDT Office Visit [facility] [address] [place] [address] Leatha Centeno documented as of this encounter Visit Diagnoses Not on filedocumented in this encounter
--- OUTSIDE RECORDS SUMMARY | 2024-08-07 14:47 | XMS_ITS | Encounter Summary ---
Author Organization [employer] [facility] Address [address] [facility] [address] [place] [address] Care Team Providers Care Broach Grinder Name Role Phone Unavailable Primary Care Provider Unavailabl e Encounter Details Date Type Department Care Team (Latest Contact Info) Description 11/30/2020 Abstract [facility] CON[facility] Dental, Provider, DDS Social History [...] 11/20/2024 1:00 PM EDT Office Visit [facility] [address] [place] [address] Leatha Centeno documented as of this encounter Visit Diagnoses Not on filedocumented in this encounter
--- OUTSIDE RECORDS SUMMARY | 2024-08-07 14:47 | XMS_ITS | Clinical Summary ---
Author Organization [facility] Address [address] [place] [address] Care Team Providers Care Souvenir Assembler Name Role Phone Hung Montelongo MD Primary Care Provider +1- [phone] Allergies Active Allergy Reactions Criticality Noted Date [...] Visit [facility] [address] [place] [phone] Alejandro Benz MD [address] [facility] [address] [place] [address] Health Maintenance Due Date Last [...] 2018 Influenza Vaccine (Season Ended) 2024 Insurance [facility] MEDICA[facility] MED[facility] Care Teams Souvenir Assembler Relationship Specialty Start Date End Date Hung Montelongo MD [address] [place] [address] PCP - General 05/11/20
== END 2024-08-07 13:21 | disposition home or self-care (01) ==
LOC: HO.PMC 12:48
PROVIDERS: PCP Internal Medicine; Visit Provider Anesthesiology
DX: M46.1 Sacroiliitis, not elsewhere classified (principal); M47.816 Spondylosis without myelopathy or radiculopathy, lumbar region; M53.3 Sacrococcygeal disorders, not elsewhere classified
CPT/HCPCS: 99213

== ENCOUNTER → 2024-08-07 12:47 | Outpatient (BNVA) | payer OTHER, SELFPAY | PROVIDERS: PCP Internal Medicine; Visit Provider Anesthesiology | DX: M46.1 Sacroiliitis, not elsewhere classified (principal); M47.816 Spondylosis without myelopathy or radiculopathy, lumbar region; M53.3 Sacrococcygeal disorders, not elsewhere classified | CPT/HCPCS: 99212 ==

== ENCOUNTER 2024-08-20 12:42 | Outpatient (AMB) | payer OTHER, SELFPAY ==
[2024-08-20 13:00] VITALS: BP 120/60; PULSE 60; BMI 30.5
--- NOTE | 2024-08-20 13:00 | MHC.OFFVIS ---
Vital Signs 08/20/24 13:00 08/20/24 13:08 Height 5 ft 3 in 5 ft 3 in Weight 172 lb 172 lb BMI 30.5 30.5 BP 120/60 120/60 Blood Pressure Location Rt brachial Rt brachial Position Sitting Sitting Pulse 60 60 Intake Visit Reasons: Discuss Abd CT Intake Note: Patient here to discuss hernia surgery. Patient c/o: bulge on Lt abdomen. Pain when pressed on. Reports hx of kidney and bariatric surgery. Patient previously advised if surgery needed to hold Eliquis 3 days before and resume 3d after. Costume Rental Clerk Required: Yes Costume Rental Clerk Name: Anusha LAMB Accompanied by: Self / Same As Patient Allergies atorvastatin Adverse Reaction (Intermediate, Verified 08/20/24 13:05) elevated LFTs rosuvastatin Adverse Reaction (Intermediate, Verified 08/20/24 13:05) Elevated LFTs acetaminophen Adverse Reaction (Unknown, Verified 08/20/24 13:05) Unknown HPI Comments Details: Patient presents because of continue symptomatic umbilical hernia. It has been at least 6 months since her pulmonary embolism diagnosis. She has completed anticoagulation throughout this time. She is currently on Eliquis. Patient was states that her provider told her she could hold the anticoagulation 3 days prior to hernia repair and then resume it 2 days postprocedure. The meantime, the hernia continues to bother her. She otherwise tolerating a diet. She has regular bowel habits. [facility] Medical History Pure hypercholesterolemia Left breast mass Pulmonary nodules Chronic kidney disease, stage III (moderate) Obesity (BMI 30-39.9) Renal cyst Diverticulosis Tubular adenoma Asthma Spondylosis of lumbar spine Sacroiliitis Dizziness of unknown etiology Chronic constipation Hx of schizophrenia Panic attacks PTSD (post-traumatic stress disorder) Dyspareunia Pyelonephritis Ingrown toenail Iron deficiency anemia Major depression, recurrent Anxiety Insomnia Tremor Orthostatic hypotension Incisional hernia without obstruction or gangrene Avascular necrosis of femoral head Bilateral carpal tunnel syndrome Peroneal neuropathy Lumbar degenerative disc disease Vitamin D deficiency GERD (gastroesophageal reflux disease) Migraine Hyperlipidemia Surgical History History of left nephrectomy (~1999) History of colonoscopy History of surgery Hx of cystoscopy History of bilateral breast reduction surgery History of hysterectomy History of cholecystectomy History of endoscopy (~06/2016) History of bladder repair surgery (~03/2015) S/P cystoscopy (~07/30/12) S/P panniculectomy History of hernia repair (~03/29/10) History of bladder surgery (~10/2009) History of gastric bypass (~2008) History of incisional hernia repair (~1999) Hx of umbilical hernia repair (~1999) H/O left nephrectomy S/P laparoscopic sleeve gastrectomy Family History Father Liver cancer Mother Breast cancer Sister Lung cancer Other Mental health problem Social History Household Members: Family Housing: House Do you presently have visiting nurse or other home services: No Alcohol intake: never Patient Tobacco Use Status: Never used Tobacco e-Cigarette/Vaping Use: Never Used Second Hand Smoke Exposure: No Advance Directives Date on File: 07/12/21 service: No Current occupational status: disabled Sexual orientation: Straight/Heterosexual Gender identity: Female Cognitive needs: No Hearing needs: No Vision needs: Yes Female Reproductive History Menstrual Age of Menarche: 13 Physical Exam Vital Signs: Last Vital Signs Pulse 60 08/20/24 13:00 BP 120/60 08/20/24 13:00 BMI result Body Mass Index 30.5 Chest Other: Chest breath sounds bilaterally, HS 1 in 2 GI Other: Abdomen corpulent, soft. Roughly 3 cm irreducible umbilical hernia. Patient was a left flank incision from prior renal surgery in the past. Patient also has port sites from prior gastric bypass Assessment & Plan Assessment & Plan (1) Incarcerated umbilical hernia: Code(s): K42.0 - Umbilical hernia with obstruction, without gangrene Category: Surgical Plan Risks, benefits, alternatives of open umbilical hernia repair with mesh were reviewed with the patient and included but not limited to bleeding, infection, recurrence, numbness, pain, scarring, bowel injury and the patient wishes to proceed. All questions answered. Anticoagulation management as noted above. Arrangements were made for the procedure on a day which is convenient for the patient. Coding Level of Care Code Est Pt Level 5 (65533) Diagnoses Incarcerated umbilical hernia K42.0
[2024-08-20 13:08] VITALS: BP 120/60; PULSE 60; BMI 30.5
--- OUTSIDE RECORDS SUMMARY | 2024-08-20 15:05 | XMS_ITS | Encounter Summary ---
Author Organization [employer] [facility] Address [address] [facility] 7t [place] [address] Care Team Providers Care Position Classifier Name Role Phone Unavailable Primary Care Provider Unavailabl e Encounter Details Date Type Department Care Team (Latest Contact Info) Description 11/30/2020 Abstract [facility] CON[facility] Dental, Provider, DDS Social [...] Description 11/20/2024 1:00 PM EDT Office Visit [facility] [address] [place] [address] Leatha Centeno documented as of this encounter Visit Diagnoses Not on filedocumented in this encounter
--- OUTSIDE RECORDS SUMMARY | 2024-08-20 15:06 | XMS_ITS | Clinical Summary ---
Author Organization [facility] Facility Address [address] [place] [address] Care Team Providers Care Clinical Team Manager Name Role Phone Hung Montelongo MD Primary Care Provider +1- [phone] Allergies Active Allergy Reactions Criticality Noted Date [...] Visit [facility] [address] [place] [phone] Alejandro Benz MD [address] [facility] [address] [place] [address] Health Maintenance Due Date Last Done Comments Breast Cancer Screening 1969 Hepatitis B Vaccine (1 of 3 - 19+ 3-dose series) 11/17 Pneumococcal Vaccine: 50+ Years (1 of 2 - PCV) 989 Colorectal Cancer Screening: Annual FOBT 2018 Colorectal Cancer Screening: Colonoscopy 2018 Colorectal Cancer Screening: Sigmoidoscopy 2018 Influenza Vaccine (Season Ended) 2024 Insurance [facility] [place] [phone] Care Teams Clinical Team Manager Relationship Specialty Start Date End Date Hung Montelongo MD [address] [place] [phone] PCP - General 05/11/20
--- OUTSIDE RECORDS SUMMARY | 2024-08-20 15:06 | XMS_ITS | Encounter Summary ---
Author Organization [employer] [facility] Address [address] [facility] 7t [place] [address] Care Team Providers Care Cooker Cleaner Name Role Phone Unavailable Primary Care Provider Unavailabl e Encounter Details Date Type Department Care Team (Latest Contact Info) Description 01/20/2022 Abstract [facility] CONVERSIONS Dental, Provider, DDS Social History [...] Description 11/20/2024 1:00 PM EDT Office Visit [facility] [address] [place] [address] Leatha Centeno documented as of this encounter Visit Diagnoses Not on filedocumented in this encounter
--- OUTSIDE RECORDS SUMMARY | 2024-08-20 15:06 | XMS_ITS | Clinical Summary ---
Author Organization [employer] Address [address] [facility] 7t [place] [address] Care Team Providers Care Driver Supervisor Name Role Phone Unavailable Primary Care [...] 1:00 PM EST Office Visit [facility] [address] [place] [address] Leatha Centeno Dental calculus (Primary Dx); Dental [...] 1:00 PM EDT Office Visit [facility] [address] [place] [address] Leatha Centeno Health Maintenance Due Date Last [...] PM EST from Last 3 Months Insurance [facility] MEDICAID STAND ADULT
== END 2024-08-20 13:36 | disposition home or self-care (01) ==
LOC: HO.HGS 12:43
PROVIDERS: PCP Internal Medicine; Visit Provider Surgery
DX: K42.0 Umbilical hernia with obstruction, without gangrene (principal)
CPT/HCPCS: 99214

== ENCOUNTER → 2024-08-20 12:42 | Outpatient (BNVA) | payer OTHER, SELFPAY | PROVIDERS: PCP Internal Medicine; Visit Provider Surgery | DX: K42.0 Umbilical hernia with obstruction, without gangrene (principal); I26.99 Other pulmonary embolism without acute cor pulmonale; Z79.01 Long term (current) use of anticoagulants | CPT/HCPCS: 99212 ==

== ENCOUNTER 2024-08-21 10:13 | Outpatient (REF) | payer OTHER, SELFPAY ==
[2024-08-21 10:41] LABS: MANUAL DIFF FLAG NO
[2024-08-21 11:14] LABS: Basophils Absolute Auto 0.1 X10*3/uL (0.0-0.2); Eosinophils Percent Auto 0.5 % (0-4); Hematocrit 40.4 % (37.0-47.0); Hemoglobin 13.4 g/dl (12.0-16.0); Imm Gran Abs Auto 0.01 X10*3/uL (0.00-0.03); Imm Gran Pct Auto 0.2 % (0.0-0.4); Lymphocytes Percent Auto 32.5 % (20-40); Mean Corpuscular HGB Conc 33.2 g/dl (31.0-35.0); Mean Corpuscular Hemoglobin 33.6 pg (27.0-33.0); Mean Corpuscular Volume 101.3 fL (80.0-98.0); Mean Platelet Volume 9.3 fL (9.4-12.3); Monocytes Absolute Auto 0.5 X10*3/uL (0.1-1.2); Monocytes Percent Auto 7.9 % (2-11); Neutrophils Absolute Auto 3.5 x10*3/uL (2.0-8.3); Neutrophils Percent Auto 57.9 % (45-73); Platelet Count 275 X10*3/uL (160-400); Red Blood Count 3.99 X10*6/uL (4.20-5.50); Red Cell Distribution Width 12.4 % (11.0-16.0); White Blood Count 6.1 X10*3/uL (4.8-10.8)
[2024-08-21 11:23] LABS: Appearance Urine Clear; Color Urine Yellow; Glucose Urine UA Negative (Negative); Leukocyte Esterase Urine Trace (Negative); Nitrite Urine Negative (Negative); Specific Gravity - Urine <= 1.005 (1.005-1.025); UMIC TRIGGER UACC YES; Urine Blood Small (1+) (Negative); Urine Ketones Negative (Negative); Urine Protein Negative (Neg-Trace)
[2024-08-21 11:50] LABS: Bacteria Urine None Seen (None Seen); Hyaline Casts Urine 0-2 /LPF (0-2); Squamous Epithelial Cell Urine 0-2 /HPF (0-2); WBC Urine 0-5 /HPF (0-5)
--- OUTSIDE RECORDS SUMMARY | 2024-08-21 11:53 | XMS_ITS | Encounter Summary ---
Author Organization [employer] [facility] Address [address] [facility] 7t [place] [address] Care Team Providers Care Technical Illustrations Map Inker Name Role Phone Unavailable Primary Care Provider Unavailabl e Encounter Details Date Type Department Care Team (Latest Contact Info) Description 11/30/2020 Abstract [facility] CONVERSION[facility] Dental, Provider, DDS Social History [...] Description 11/20/2024 1:00 PM EDT Office Visit [facility] [address] [place] [address] Leatha Centeno documented as of this encounter Visit Diagnoses Not on filedocumented in this encounter
--- OUTSIDE RECORDS SUMMARY | 2024-08-21 11:53 | XMS_ITS | Encounter Summary ---
Author Organization [employer] [facility] Address [address] [facility] 7t [place] [address] Care Team Providers Care Tractor Engine Assembler Name Role Phone Unavailable Primary Care Provider Unavailabl e Encounter Details Date Type Department Care Team (Latest Contact Info) Description 01/20/2022 Abstract [facility] CONVERSION[facility] Dental, Provider, DDS Social History [...] Description 11/20/2024 1:00 PM EDT Office Visit [facility] [address] [place] [address] Leatha Centeno documented as of this encounter Visit Diagnoses Not on filedocumented in this encounter
--- OUTSIDE RECORDS SUMMARY | 2024-08-21 11:54 | XMS_ITS | Clinical Summary ---
Author Organization [employer] Address [address] [facility] 7t [place] [address] Care Team Providers Care Parts Interpreter Name Role Phone Unavailable Primary Care Provider [...] plaque 10/10/2022 Localized gingival recession, minimal 10/10/2022 Social History Tobacco Use Types Packs/Day Years [...] Description 11/20/2024 1:00 PM EDT Office Visit [facility] [address] [place] [address] Leatha Centeno Health Maintenance Due Date Last [...] PCV) 11/08/2008 11/09/2007 Mammogram 2009 COVID-19 Vaccine (2023- season) 2023 04/12/2023, 01/11/2022, 03/01/2021, Additional history exists Dental Oral Exam 11/20/2024 05/22/2024, , 10/10/2022, Additional history exists Dental Prophylaxis 11/20/2024 05/22/2024, 1 06/27/2022, 10/10/2022, Additional history exists Tobacco Screening 05/22/2025 05/22/2024 Dental X-Ray: Bitewings 05/23/2025 05/22/19 25, 05/16/2023, 04/26/2023, Additional history exists Dental X-Ray: [...] :00 PM EST Dental calculus Dental plaque INTRAORAL - COMPLETE SERIES OF RADIOGRAPHIC IMAGES Routine 05/22/2024 1:00 PM EST PERIODIC ORAL EVALUATION - ESTABLISHED PATIENT Routine 05/22/2024 1:00 PM EST from Last 3 Months or Most Recently Relevant to Health [place] [id number] [facility] MEDICAID STAND ADULT
--- OUTSIDE RECORDS SUMMARY | 2024-08-21 11:54 | XMS_ITS | Clinical Summary ---
Author Organization [facility] Facility Address [address] [place] [address] Care Team Providers Care Doping Supervisor Name Role Phone Hung Montelongo MD Primary Care Provider +1- [phone] Allergies Active Allergy Reactions Criticality Noted Date [...] Visit [facility] [address] [place] [phone] Alejandro Benz MD [address] [facility] [address] [place] [address] Health Maintenance Due Date Last Done Comments Breast Cancer Screening 1969 Hepatitis B Vaccine (1 of 3 - 19+ 3-dose series) 11/17 Pneumococcal Vaccine: 50+ Years (1 of 2 - PCV) 989 Colorectal Cancer Screening: Annual FOBT 2018 Colorectal Cancer Screening: Colonoscopy 2018 Colorectal Cancer Screening: Sigmoidoscopy 2018 Influenza Vaccine (Season Ended) 2024 Insurance [facility] Medicaid Care Teams Doping Supervisor Relationship Specialty Start Date End Date Hung Montelongo MD [address] [place] [id number] PCP - General 05/11/20
[2024-08-21 11:56] LABS: Alanine Aminotransferase 27 U/L (0-31); Albumin Level 3.9 g/dL (3.5-5.0); Alkaline Phosphatase 115 U/L (39-117); Anion Gap 8 (12-20); Aspartate Amino Transferase 28 U/L (5-31); Bilirubin Direct 0.1 mg/dL (0.0-0.5); Bilirubin Total 0.4 mg/dL (0.0-1.0); Blood Urea Nitrogen 15 mg/dL (9-16); Calcium 9.2 mg/dL (8.4-10.2); Carbon Dioxide 29 mmol/L (22-29); Chloride 106 mmol/L (96-108); Cholesterol 238 mg/dL (<200); Estimated Glomerular Filt Rate 54; Glucose Fasting 80 mg/dL (60-99); Glucose Random 79 mg/dL (60-115); HDL Cholesterol 73 mg/dL (>40); LDL Cholesterol Calculated 150 mg/dL (<100); Potassium 4.4 mmol/L (3.3-5.1); Sodium 139 mmol/L (135-145); TSH reflex Free T4 1.58 uIU/mL (0.32-4.0); Total Protein 6.9 g/dL (6.5-8.0); Triglycerides 75 mg/dL (<150); Vitamin D 25-OH Total 40.2 ng/mL (>30)
[2024-08-21 12:06] LABS: Folate 15.8 ng/mL (> or = 4.0); Vitamin B12 445 pg/mL (200-900)
== END 2024-08-21 10:14 | disposition home or self-care (01) ==
LOC: HO.LAB 10:13
PROVIDERS: PCP Internal Medicine; Visit Provider Hospitalist
DX: Z00.00 Encounter for general adult medical examination without abnormal findings (principal); E78.00 Pure hypercholesterolemia, unspecified; R79.89 Other specified abnormal findings of blood chemistry; G47.33 Obstructive sleep apnea (adult) (pediatric); E04.2 Nontoxic multinodular goiter; K59.09 Other constipation; I95.1 Orthostatic hypotension; L29.9 Pruritus, unspecified; K21.9 Gastro-esophageal reflux disease without esophagitis; R60.9 Edema, unspecified; M51.362 Other intervertebral disc degeneration, lumbar region with discogenic back pain and lower extremity pain; M25.59 Pain in other specified joint; G43.909 Migraine, unspecified, not intractable, without status migrainosus; E55.9 Vitamin D deficiency, unspecified; K42.0 Umbilical hernia with obstruction, without gangrene; R41.3 Other amnesia; F51.01 Primary insomnia; F41.9 Anxiety disorder, unspecified; F33.9 Major depressive disorder, recurrent, unspecified; E66.9 Obesity, unspecified; D64.9 Anemia, unspecified; R30.0 Dysuria; E53.8 Deficiency of other specified B group vitamins; Z79.899 Other long term (current) drug therapy; Z90.5 Acquired absence of kidney; Z99.89 Dependence on other enabling machines and devices
CPT/HCPCS: 36415; 80048; 80053; 80061; 80076; 81001; 82248; 82306; 82607; 82746; 84443; 85025; 87086; 96127; 99396

== ENCOUNTER 2024-08-21 14:46 | Outpatient (AMB) | payer OTHER, SELFPAY ==
[2024-08-21 14:51] VITALS: BP 100/66; PULSE 66; O2SAT 98; BMI 30.4
--- NOTE | 2024-08-21 14:51 | A.OFFPC_ITS ---
Vital Signs 08/21/24 14:51 Height 5 ft 3 in Weight 171 lb 8 oz BMI 30.4 BP 100/66 Blood Pressure Location Lt brachial Position Sitting Pulse 66 Pulse Source Pulse Oximeter Pulse Oximetry (%) 98 Oxygen Delivery Method Room Air Intake Visit Reasons: PE annual Solids Control Technician Required: No Accompanied by: Self / Same As Patient Allergies atorvastatin Adverse Reaction (Intermediate, Verified 08/22/24 05:14) elevated LFTs rosuvastatin Adverse Reaction (Intermediate, Verified 08/22/24 05:14) Elevated LFTs acetaminophen Adverse Reaction (Unknown, Verified 08/22/24 05:14) Unknown Medication List - Last Reconciled 08/22/24 by Hung Montelongo MD albuterol sulfate 90 mcg/actuation (Ventolin HFA) 2 puffs inhalation Q6H PRN 30 days alirocumab (Praluent Pen) 75 mg subcut Q2W 4 weeks apixaban (Eliquis) 5 mg PO BID 30 days bisacodyl (Dulcolax (bisacodyl)) 10 mg (2 x 5 mg) PO BEDTIME blood pressure monitor As directed [id number] 50-325-40 mg 2 tabs PO Q6H PRN 30 days cholecalciferol (vitamin D3) (Vitamin D3) 25 mcg PO DAILY 90 days [CPAP device and all related supplies As directed] docusate sodium 100 mg PO DAILY famotidine (Pepcid) 20 mg PO BEDTIME furosemide 20 mg PO QAM PRN gabapentin 800 mg PO TID 30 days linaclotide (Linzess) 145 mcg PO DAILY lorazepam 1 mg PO BID PRN 30 days meclizine 25 mg PO TID PRN 30 days melatonin 10 mg (2 x 5 mg) PO BEDTIME PRN 30 days midodrine 10 mg PO TID 30 days nitrofurantoin macrocrystal 50 mg orally may use 30 minutes before of after sexual activity as directed by MD; must administer with a meal/food pantoprazole mg PO DAILY phenazopyridine (Pyridium) 200 mg PO BID topiramate mg PO DAILY tramadol 100 mg (2 x 50 mg) PO Q8H PRN 30 days verapamil mg PO Tobacco use date assessed: 08/21/24 Dental Screening Dental Screen Date: 08/21/24 HPI PE annual HPI Details Patient comes in today for her annual physical examination States that she has been experiencing on and off swelling of her legs and feet lately and would like to see if she can be started on some Lasix to help relieve her swelling States that she feels okay otherwise She denies any headaches or dizziness lately Denies any chest pains, no increased shortness of breath No nausea/vomiting, no abdominal pain No change in bowel habits noted She denies any acute urinary symptoms She had her follow up labs done earlier today - to discuss her results Patient also had thyroid Bx done last month - pathology came out as atypia of undetermined significance ([place] category III) Patient had her annual mammogram done last month (June 2024) She had her yearly gynecology exam done back in May 2024 She is now due for repeat colonoscopy (last done in 2021) and has an appointment scheduled with GI next month to get this scheduled BMD was last done last year on 11/30/2023 [facility] Medical History Pure hypercholesterolemia Left breast mass Pulmonary nodules Chronic kidney disease, stage III (moderate) Obesity (BMI 30-39.9) Renal cyst Diverticulosis Tubular adenoma Asthma Spondylosis of lumbar spine Sacroiliitis Dizziness of unknown etiology Chronic constipation Hx of schizophrenia Panic attacks PTSD (post-traumatic stress disorder) Dyspareunia Pyelonephritis Ingrown toenail Iron deficiency anemia Major depression, recurrent Anxiety Insomnia Tremor Orthostatic hypotension Incisional hernia without obstruction or gangrene Avascular necrosis of femoral head Bilateral carpal tunnel syndrome Peroneal neuropathy Lumbar degenerative disc disease Vitamin D deficiency GERD (gastroesophageal reflux disease) Migraine Hyperlipidemia Surgical History History of left nephrectomy (~1999) History of colonoscopy History of surgery Hx of cystoscopy History of bilateral breast reduction surgery History of hysterectomy History of cholecystectomy History of endoscopy (~06/2016) History of bladder repair surgery (~03/2015) S/P cystoscopy (~07/30/12) S/P panniculectomy History of hernia repair (~03/29/10) History of bladder surgery (~10/2009) History of gastric bypass (~2008) History of incisional hernia repair (~1999) Hx of umbilical hernia repair (~1999) H/O left nephrectomy S/P laparoscopic sleeve gastrectomy Family History Father Liver cancer Mother Breast cancer Sister Lung cancer Other Mental health problem Social History Household Members: Family Housing: House Do you presently have visiting nurse or other home services: No Alcohol intake: never Patient Tobacco Use Status: Never used Tobacco e-Cigarette/Vaping Use: Never Used Second Hand Smoke Exposure: No Advance Directives Date on File: 07/12/21 service: No Current occupational status: disabled Sexual orientation: Straight/Heterosexual Gender identity: Female Cognitive needs: No Hearing needs: No Vision needs: Yes Female Reproductive History Menstrual Age of Menarche: 13 Questionnaire PHQ-9 Over the last 2 weeks, how often have you been bothered by any of the following problems? 1. Little interest or pleasure in doing things: not at all 2. Feeling down, depressed, or hopeless: not at all 3. Trouble falling or staying asleep, or sleeping too much: several days 4. Feeling tired or having little energy: more than half the days 5. Poor appetite or overeating: several days 6. Feeling bad about yourself - or that you are a failure or have let yourself or your family down: several days 7. Trouble concentrating on things, such as reading the newspaper or watching television: more than half the days 8. Moving or speaking so slowly that other people could have noticed. Or the opposite - being so fidgety or restless that you have been moving around a lot more than usual: several days 9. Thoughts that you would be better off or of hurting yourself in some way: several days Total score: 9 Depression Screening Interpretation: Positive Depression Screening Follow-up: Existing condition and In treatment Depression Screening Done: Yes 61322 - PHQ-9 Billing: Yes Source: Developed by Drs. Vincenzo Mayo, Beverly Hernandez, Angel Vogel and colleagues, with an educational juan antonio from [employer]. Thrive Questionnaire Date Thrive assessed: 08/21/24 I am a: Patient What is your living situation today?: I have a steady place to live Within the past 12 months, did the food you bought not last and you didn't have the money to get more?: Sometimes True Within the past 12 months, did you worry whether your food would run out before you got money to buy more?: Sometimes True Do you have trouble paying for medicines?: No Do you have trouble getting transportation to medical appointments?: No Do you have trouble paying your heating and electricity bill?: No Do you have trouble taking care of your child, family member or friend?: I choose not to answer this question Do you have trouble with day-to-day activities such as bathing, preparing meals, shopping, managing finances, etc.?: Yes Are you currently unemployed and looking for a job?: I choose not to answer this question Are you interested in more education?: I choose not to answer this question Please select the resources that you would like help with: None Currently or been in a relationship where the following occur: No concerns reported THRIVE Score: 2 AUDIT C Alcohol Use Questionnaire (AUDIT-C) 1. How often do you have a drink containing alcohol?: Never 3. How often do you have six or more drinks on one occasion?: Never Total Score: 0 Score Reviewed/Action Taken: Yes JAMIE-7 AMB Questionnaire JAMIE-7 Date JAMIE - 7 assessed: 08/21/24 Feeling nervous, anxious, or on edge: 0 = Not at all Not being able to stop or control worryin = Not at all Worrying too much about different things: 0 = Not at all Trouble relaxin = Not at all Being so restless that it is hard to sit still: 0 = Not at all Becoming easily annoyed or irritable: 0 = Not at all Feeling afraid as if something awful might happen: 0 = Not at all Total JAMIE-7 score (0-4 normal; 5-9 mild; 10-14 moderate; 15-21 severe): 0 Source: Developed by Drs. Vincenzo Mayo, Beverly Hernandez, Angel Vogel and colleagues, with an educational juan antonio from [employer]. Review of Systems Const Denies chills, Reports fatigue, Denies fever(s) and Denies headache(s) Eyes Denies blurry vision, Denies change in vision, Denies irritation and Denies itchy eyes ENT Denies dysphagia, Denies dizziness, Denies otalgia, Denies headache(s), Denies neck pain, Denies odynophagia and Denies sore throat Card Denies chest pain, Denies irregular heart rhythm, Denies palpitations and Denies dyspnea Resp Denies chest congestion, Denies cough, Denies dyspnea and Denies wheezing GI Denies abdominal pain, Denies constipation, Denies dysphagia, Denies heartburn, Denies diarrhea, Reports nausea (on and off), Denies odynophagia and Denies vomiting Denies hematuria, Denies urinary frequency, Denies dysuria and Denies urinary urgency Musc Reports back pain (over the lower back - chronic), Denies arthralgias and Denies neck pain Skin/Breast Denies rash Neuro Denies dizziness, Denies headache(s) and Denies paresthesias Psych Reports anxiety and Reports depression Endo Reports fatigue and Denies palpitations Catarino/Lymph Details: on and off swelling of both lower legs and feet Denies easy bruising Aller/Immun Denies itchy eyes and Denies wheezing Physical exam (Primary Care) Vital Signs: Last Vital Signs Pulse 66 08/21/24 14:51 BP 100/66 08/21/24 14:51 Pulse Ox 98 08/21/24 14:51 Oxygen Delivery Method Room Air 08/21/24 14:51 BMI result Body Mass Index 30.4 Tobacco/Smoking Status: Tobacco use Status Tobacco use date assessed 08/21/24 08/21/24 14:55 Patient Tobacco Use Status Never used Tobacco 08/21/24 14:55 e-Cigarette/Vaping Use Never Used 08/21/24 14:55 PHQ-9: PHQ-9 Score PHQ-9: Total score 9 08/21/24 15:26 Depression Screening Interpretation: Positive Depression Screening Follow-up: Existing condition and In treatment Thrive Assessment: Date of Thrive Assessment Date Thrive assessed 08/21/24 08/21/24 14:55 Currently or been in a relationship where the following occur: No concerns reported Const General: no acute distress and alert Orientation/consciousness: patient oriented x3 HENMT Head: Yes normocephalic and Yes atraumatic Ears: TM's normal bilaterally and EAC's normal General nose exam: No nasal discharge present Face and sinus: Yes normal facial exam and Yes sinuses nontender Teeth and gingiva: dentition normal Throat: Yes posterior oropharynx normal and Yes tonsils normal Eyes Eyelids: Yes eyelids normal Conjunctivae: conjunctivae normal Pupils: Equal, round and reactive pupils present EOM: EOMs intact bilaterally Neck Neck: Yes no lymphadenopathy and Yes supple Thyroid: Thyroid normal Resp Auscultation: clear to auscultation bilaterally, no rales and no wheezes Cardio Rate: regular rate Rhythm: regular rhythm Heart sounds: no murmurs GI Palpation (GI): Soft to palpation, nontender and Hernia present umbilical Auscultation: normal bowel sounds General: Yes no CVA tenderness Back/Spine/Pelvis Back: no CVA tenderness Thoracic/Lumbar Spine: paraspinal muscle tenderness (over the lumbar region) on the right greater than left and lumbar spinal tenderness Skin Lesions: no lesions Rashes: no rashes Neuro General: patient oriented x3, moves all extremities, no focal motor deficits and CN's II-XI intact bilaterally Cranial nerves: Yes Equal, round and reactive pupils present Cognition (Neuro): normal cognition Gait exam (Neuro): Normal gait present Extrem General: No clubbing, No cyanosis and Yes edema (1+ bipedal edema) Results Reviewed Results Reviewed: Laboratory Tests 08/21/24 08/21/24 10:26 10:39 WBC 6.1 Hgb 13.4 Hct 40.4 Plt Count 275 Sodium 139 Potassium 4.4 Creatinine 1.06 Estimated GFR 54 Fasting Glucose 80 Calcium 9.2 AST 28 ALT 27 Triglycerides 75 Cholesterol 238 H LDL Cholesterol, Calc 150 H HDL Cholesterol 73 Vitamin B12 445 25-OH Vitamin D Total 40.2 TSH 1.58 Ur Specific Clune <= 1.005 Urine Protein Negative Urine Glucose (UA) Negative Urine Blood Small (1+) H Urine Nitrite Negative Ur Leukocyte Esterase Trace H Coding Level of Care Code Est Pt Level 4 (40473) Complex EM visit Add On G2211 Diagnoses Annual physical exam Z00.00 Pure hypercholesterolemia E78.00 Hyperlipidemia type: pure hypercholesterolemia Elevated LFTs R79.89 MIGUEL (obstructive sleep apnea) G47.33 Solitary kidney, acquired Z90.5 Multiple thyroid nodules E04.2 Chronic constipation K59.09 Orthostatic hypotension I95.1 Pruritus L29.9 Gastroesophageal reflux disease without esophagitis K21.9 Esophagitis presence: without esophagitis Edema, unspecified type R60.9 Edema type: unspecified Degeneration of intervertebral disc of lumbar region with discogenic back pain and lower extremity pain M51.362 Disc-related pain type: discogenic back pain and lower extremity pain Pain in other joint M25.59 Joint pain location: other joint Migraine without status migrainosus, not intractable, unspecified migraine type G43.909 Intractability: not intractable Migraine type: unspecified Status migrainosus presence: without status migrainosus Vitamin D deficiency E55.9 Incarcerated umbilical hernia K42.0 Memory impairment R41.3 Primary insomnia F51.01 Insomnia type: primary Anxiety F41.9 Episode of recurrent major depressive disorder, unspecified depression episode severity F33.9 Active/Remission status: currently active Major depression episode severity: unspecified Obesity (BMI 30-39.9) E66.9 Additional Codes PHQ-9 - 00743 - PHQ-9 Billing: Yes ([id number]) Assessment & Plan Assessment & Plan (1) Annual physical exam: Code(s): Z00.00 - Encounter for general adult medical examination without abnormal findings Category: Medical Plan: Results of her labs done earlier today reviewed and discussed with patient Patient had her annual mammogram done last month (June 2024) She had her yearly gynecology exam done back in May 2024 She is now due for repeat colonoscopy (last done in 2021) and has an appointment scheduled with GI next month to get this scheduled BMD was last done last year on 11/30/2023 (2) Hyperlipidemia: Code(s): E78.5 - Hyperlipidemia, unspecified Category: Medical Qualifiers: Hyperlipidemia type: pure hypercholesterolemia Qualified Code(s): E78.00 - Pure hypercholesterolemia, unspecified Plan: Patient is advised that her cholesterol levels have increased significantly from previous She states that her insurance is reportedly declining to cover her Praluent injection Rx so she was not able to continue on it for a few weeks now Reinforced low cholesterol diet Will send in Rx again for Praluent Pen 75 mg SQ every 2 weeks - patient is a dvised to let us know if she still cannot get her Rx filled at her pharmacy Her LFTs have remained normal on her recent labs Will recheck her fasting lipids and labs in 3 months for follow up (3) Elevated LFTs: Code(s): R79.89 - Other specified abnormal findings of blood chemistry Category: Medical Plan: Patient's LFTs have improved since she was taken off Rosuvastatin a few months ago and her LFTs have remained normal on her recent labs Abdominal US done a few months ago revealed (+) coarsened hepatic echotexture, consistent with fatty infiltration or hepatocellular disease. No focal hepatic mass or intrahepatic biliary dilatation is seen We will continue to monitor her LFTs regularly (4) MIGUEL (obstructive sleep apnea): Comment: mild degree of sleep apnea. The AHI was 5/hr and oxygen mitul was 81%. Code(s): G47.33 - Obstructive sleep apnea (adult) (pediatric) Category: Medical Plan: Continue using her CPAP device when sleeping at night daily Follow up with Sleep Medicine as scheduled (5) Solitary kidney, acquired: Comment: (+) Hx of left nephrectomy >20 years ago due to recurrent kidney stones Code(s): Z90.5 - Acquired absence of kidney Category: Medical Plan: Follow up with nephrology as scheduled (6) Multiple thyroid nodules: Code(s): E04.2 - Nontoxic multinodular goiter Category: Medical Plan: These were apparently seen incidentally on neck CTA done a few months ago Her TFTs remain normal on her recent labs She is now seeing endocrinology for this and had thyroid Bx done last month - pathology came out as atypia of undetermined significance ([place] category III) Follow up with endocrinology as scheduled (7) Chronic constipation: Code(s): K59.09 - Other constipation Category: Medical Plan: She is again encouraged on increased oral fluids and dietary fiber States that Lactulose and Docusate 100 mg BID have not helped much previously; she also tried taking OTC Miralax, which she states only helped minimally She was tried by GI on Linzess and Trulance also recently and she states that both Rx did not help She is currently on a combination regimen of Linzess 145 mcg QD, Docusate 100 mg BID and Miralax 17 gm QD Had EGD and colonoscopy done about 3 years ago - (+) tubular adenoma; colonoscopy was otherwise normal She is now scheduled for repeat colonoscopy and has a follow up appointment adalberto eduled with GI next month (8) Orthostatic hypotension: Code(s): I95.1 - Orthostatic hypotension Category: Medical Plan: 30 days cardiac event monitor done on 07/11/2023 showed sinus rhythm with heart rate ranging from 36 to 131/min, 2 brief paroxysmal SVT episodes, rare PACs and PVCs; two symptom events correlated with sinus tach. Echocardiogram done on the same day (07/11/2023) came out normal Tilt-table testing done on 10/17/2023 showed appropriate heart rate and blood pressure response to tilt Continue Midodrine 10 mg TID She is reminded to stay adequately hydrated as much as she can and to try increasing her oral salt intake as well Follow up with cardiology as scheduled (9) Pruritus: Code(s): L29.9 - Pruritus, unspecified Category: Medical Plan: Patient relates experiencing increased itching all over frequently and she feels that these are likely due to her Midodrine Rx and is inquiring if she can stop taking this medication Have advised patient that she was started on Midodrine by cardiology to help with her orthostasis and stopping this abruptly may not be the best option to take, even if Midodrine is in the responsible for her complaints of recurrent pruritus recently Have advised patient to continue on her current medication for now and to speak to cardiology first whether they are agreeable to her stopping her Midodrine or not Have advised patient that she can take some OTC Benadryl PRN for symptomatic relief (10) GERD (gastroesophageal reflux disease): Code(s): K21.9 - Gastro-esophageal reflux disease without esophagitis Category: Medical Qualifiers: Esophagitis presence: without esophagitis Qualified Code(s): K21.9 - Gastro-esophageal reflux disease without esophagitis Plan: Dietary restrictions reinforced Continue Omeprazole 20 mg QD (11) Edema: Code(s): R60.9 - Edema, unspecified Category: Medical Qualifiers: Edema type: unspecified Qualified Code(s): R60.9 - Edema, unspecified Plan: Will start patient on Furosemide 20 mg Q AM PRN She is advised to take this only as needed for severe edema as her blood pressure is often on the lower end of normal and taking this daily may drive her BP down further and cause her to experience increased dizziness and orthostasis (12) Lumbar degenerative disc disease: Code(s): M51.36 - Other intervertebral disc degeneration, lumbar region Category: Medical Qualifiers: Disc-related pain type: discogenic back pain and lower extremity pain Qualified Code(s): M51.362 - Other intervertebral disc degeneration, lumbar region with discogenic back pain and lower extremity pain Plan: Reinforced activity and weight lifting restrictions She went to physical therapy last year without any significant relief She was seen by [facility] previously and had a diagnostic SI joint injection under fluoroscopic guidance back in September 2021 and started seeing them again recently; has been scheduled for bilateral therapeutic sacroiliac joint injection under sedation but it looks like she stopped going to pain management afterwards She was referred back to [facility] for interventional Tx to help with her chronic pain at her last visit and she was seen again by Dr. Smith in late October 2023 and he was reportedly planning to schedule her for a bilateral therapeutic sacroiliac joint injection under sedation but it appears that patient did not follow-up again for her injections although she claims that she was never scheduled It appears that patient completely forgot about her follow-up and has been expe riencing some memory issues in addition to her recent psychiatric hospitalizations for decompensation She was seen again by Dr. Smith a couple of months ago and was sent for physical therapy, after which she will be scheduled again for back injections Patient started back with physical therapy last week and she is reminded to continue following up with them and with pain management as scheduled Continue Gabapentin 800 mg 3 times a day, Tramadol 50 mg 1-2 tablets every 8 hours as needed (13) Arthralgia: Code(s): M25.50 - Pain in unspecified joint Category: Medical Qualifiers: Joint pain location: other joint Qualified Code(s): M25.59 - Pain in other specified joint Plan: Involving multiple joints, especially over both hips, both elbows and both knees X-rays of the knees done back in August 2021 revealed (+) mild OA changes in both knees; hip and elbow x-rays came out normal Continue Gabapentin 800 mg TID and Tramadol 50 mg TID PRN for pain (14) Migraine: Code(s): G43.909 - Migraine, unspecified, not intractable, without status migrainosus Category: Medical Qualifiers: Intractability: not intractable Migraine type: unspecified Status migrainosus presence: without status migrainosus Qualified Code(s): G43.909 - Migraine, unspecified, not intractable, without status migrainosus Plan: Controlled Continue Topiramate 50 mg QD for LANZA prophylaxis and Sumatriptan 50 mg PRN Follow-up with neurology as scheduled (15) Vitamin D deficiency: Code(s): E55.9 - Vitamin D deficiency, unspecified Category: Medical Plan: Continue Vitamin D3 1000 units QD (16) Incarcerated umbilical hernia: Code(s): K42.0 - Umbilical hernia with obstruction, without gangrene Category: Surgical Plan: Follow up with surgery as scheduled - surgery has recommended surgical repair of her hernia and she has been advised to call and get this scheduled when she is ready to have the surgery done (17) Memory impairment: Code(s): R41.3 - Other amnesia Category: Medical Plan: She was referred to and seen by neurology and was advised that her memory issues are multifactorial in etiology although she was diagnosed with frontotemporal lobe degeneration and dementia as well Follow up with neurology as scheduled (18) Insomnia: Code(s): G47.00 - Insomnia, unspecified Category: Medical Qualifiers: Insomnia type: primary Qualified Code(s): F51.01 - Primary insomnia Plan: Sleep hygiene reinforced She was taking Trazodone 50 mg daily at bedtime as needed and Prazosin 1 mg Q HS in the past but currently appears to be only taking Melatonin 5 mg Q HS She is also on Aripiprazole 5 mg Q HS (19) Anxiety: Code(s): F41.9 - Anxiety disorder, unspecified Category: Medical Plan: Continue Lorazepam 1 mg BID PRN and Diphenhydramine 50 mg Q HS (20) Major depression, recurrent: Code(s): F33.9 - Major depressive disorder, recurrent, unspecified Category: Medical Qualifiers: Active/Remission status: currently active Major depression episode severity: unspecified Qualified Code(s): F33.9 - Major depressive disorder, recurrent, unspecified Plan: Continue Lurasidone 20 mg QD, Mirtazapine 7.5 mg Q HS and Aripiprazole 5 mg Q HS She was admitted to [facility] a few months ago for psychiatric decompensation and suicidal ideation and has had multiple psychiatric admissions as well in the past for similar reasons Follow-up with Psychiatry as scheduled (21) Obesity (BMI 30-39.9): Code(s): E66.9 - Obesity, unspecified Category: Medical Plan: Reinforced diet; exercise is unrealistic given patient's multiple medical and psychiatric morbidities Plan Follow-up in 3 months Orders: Orders Complete Blood Count Auto Diff 3 Months D64.9 - Anemia, unspecified Lipid Panel 3 Months E78.00 - Pure hypercholesterolemia, unspecified Comprehensive [place]. Panel Fast 3 Months E78.00 - Pure hypercholesterolemia, unspecified B Type Natriuretic Peptide 3 Months R60.9 - Edema, unspecified UA CC w/rflx Micro + Cult 3 Months R30.0 - Dysuria Vitamin B12 and Folate 3 Months E53.8 - Deficiency of other specified B group vitamins Free T4 (Free Thyroxine) 3 Months E03.9 - Hypothyroidism, unspecified Thyroid Stimulating Hormone 3 Months E03.9 - Hypothyroidism, unspecified Hemoglobin A1c 3 Months R73.9 - Hyperglycemia, unspecified Vitamin D 25-OH Total 3 Months E55.9 - Vitamin D deficiency, unspecified Medications: New furosemide 20 mg PO QAM PRN 30 tabs 0RF severe edema Refilled alirocumab (Praluent Pen) 75 mg subcut Q2W 4 weeks 2 mL 5RF
--- OUTSIDE RECORDS SUMMARY | 2024-08-21 17:34 | XMS_ITS | Encounter Summary ---
Author Organization [employer] [facility] Address [address] [facility] 7t [place] [address] Care Team Providers Care Qc Tech Name Role Phone Unavailable Primary Care Provider Unavailabl e Encounter Details Date Type Department Care Team (Latest Contact Info) Description 11/30/2020 Abstract [facility] CONVERSIONS Dental, Provider, DDS Social [...] Visit [facility] ADULT DENTAL [address] [place] [address] Leatha Centeno documented as of this encounter Visit Diagnoses Not on filedocumented in this encounter
--- OUTSIDE RECORDS SUMMARY | 2024-08-21 17:34 | XMS_ITS | Encounter Summary ---
Author Organization [facility] [facility] Address [address] [facility] 7t [place] [address] Care Team Providers Care Fur Operator Name Role Phone Unavailable Primary Care Provider Unavailabl e Encounter Details Date Type Department Care Team (Latest Contact Info) Description 01/20/2022 Abstract [facility] CONVERSIONS Dental, Provider, DDS Social History [...] 1:00 PM EDT Office Visit [facility] ADULT DENTAL [address] [place] [address] Leatha Centeno documented as of this encounter Visit Diagnoses Not on filedocumented in this encounter
--- OUTSIDE RECORDS SUMMARY | 2024-08-21 17:34 | XMS_ITS | Clinical Summary ---
Author Organization [employer] Address [address] [facility] 7t [place] [address] Care Team Providers Care Icing Maker Name Role Phone Unavailable Primary Care Provider [...] [facility] AD[facility] [address] [place] [address] Leatha Centeno Health Maintenance Due Date Last [...] Recently Relevant to Health [place] [id number] [place]
--- OUTSIDE RECORDS SUMMARY | 2024-08-21 17:34 | XMS_ITS | Clinical Summary ---
Author Organization [facility] Facility Address [address] [place] [address] Care Team Providers Care Warehouse Technician Name Role Phone Hung Montelongo MD Primary Care Provider +1- [phone] Allergies Active Allergy Reactions Criticality Noted Date [...] [facility] [address] [place] [phone] Alejandro Benz MD [address] [facility] [address] [place] [address] Health Maintenance Due Date Last Done Comments Breast Cancer Screening 1969 Hepatitis B Vaccine (1 of 3 - 19+ 3-dose series) 11/17 Pneumococcal Vaccine: 50+ Years (1 of 2 - PCV) 989 Colorectal Cancer Screening: Annual FOBT 2018 Colorectal Cancer Screening: Colonoscopy 2018 Colorectal Cancer Screening: Sigmoidoscopy 2018 Influenza Vaccine (Season Ended) 2024 Insurance [facility] Medicaid Care Teams Warehouse Technician Relationship Specialty Start Date End Date Hung Montelongo MD [address] [place] [id number] PCP - General 05/11/20
== END 2024-08-21 15:32 | disposition home or self-care (01) ==
LOC: HO.HMCH 14:47
PROVIDERS: PCP Internal Medicine; Visit Provider Internal Medicine
DX: Z00.00 Encounter for general adult medical examination without abnormal findings (principal); E78.00 Pure hypercholesterolemia, unspecified; F33.9 Major depressive disorder, recurrent, unspecified; R79.89 Other specified abnormal findings of blood chemistry; G47.33 Obstructive sleep apnea (adult) (pediatric); Z90.5 Acquired absence of kidney; E04.2 Nontoxic multinodular goiter; K59.09 Other constipation; I95.1 Orthostatic hypotension; L29.9 Pruritus, unspecified; K21.9 Gastro-esophageal reflux disease without esophagitis; R60.9 Edema, unspecified

== ENCOUNTER 2024-08-26 13:16 | Outpatient (AMB) | payer OTHER, SELFPAY ==
[2024-08-26 13:32] VITALS: BP 118/78; PULSE 71; O2SAT 98; BMI 30.3
--- NOTE | 2024-08-26 13:32 | A.OFFVIS_ITS ---
Vital Signs 08/26/24 13:32 Height 5 ft 3 in Weight 171 lb BMI 30.3 BP 118/78 Blood Pressure Location Rt brachial Position Sitting Pulse 71 Pulse Source Pulse Oximeter Pulse Oximetry (%) 98 Oxygen Delivery Method Room Air Intake Visit Reasons: Follow Up 3mo Intake Note: Patient presents follow up MIGUEL. Compliance in chart Allergies atorvastatin Adverse Reaction (Intermediate, Verified 08/27/24 09:58) elevated LFTs rosuvastatin Adverse Reaction (Intermediate, Verified 08/27/24 09:58) Elevated LFTs acetaminophen Adverse Reaction (Unknown, Verified 08/27/24 09:58) Unknown HPI Comments Details: 53 year old female with bilateral sciatica presents for a f/u visit for mild MIGUEL. Certified Chemical Packager Anusha Centeno helps with translation and history today. PMH: Pt. had a biopsy July 2024 of 1.7cm l.thyroid inferior nodule,and l. 2.2cm superior nodule which is of Alexandria Cat III, she is being followed by Endocrine. Pt. is compliant with her cpap, she has difficulties with her mask, as it is too large for her face. She uses her machine daily, however it makes her cough and her asthmatic symptoms worsen, she is using her inhalers prn. She says the water in her reservoir dries up at night and she must set an alarm so she can refill the reservoir nightly. She feels well with the use of her CPAP machine. She has FTD and memory tends to be poor at baseline. She c/o drooling, neck tightness- prone to right laterocollis, falls d/t tripping or losing her balance. She goes to bed at 8:30pm and wakes up at 7am, 4-5x for the bathroom, she has CKD Stage III on diuretics for bilateral LE edema. She has panic attacks, anxiety and depression, and sees her therapist 2x a month, with psychiatry for medicaiton management. RLS: She has the need to move her legs all night long, shaking them out helps, as it gets numb, cramps, and she has an uncomforatble sensation, she takes gabapentin 800mg PO TID and that helps her fall asleep. She washes her mask, changes filters, hoses as needed and orders supplies from [employer] as needed. [facility] Medical History Pure hypercholesterolemia Left breast mass Pulmonary nodules Chronic kidney disease, stage III (moderate) Obesity (BMI 30-39.9) Renal cyst Diverticulosis Tubular adenoma Asthma Spondylosis of lumbar spine Sacroiliitis Dizziness of unknown etiology Chronic constipation Hx of schizophrenia Panic attacks PTSD (post-traumatic stress disorder) Dyspareunia Pyelonephritis Ingrown toenail Iron deficiency anemia Major depression, recurrent Anxiety Insomnia Tremor Orthostatic hypotension Incisional hernia without obstruction or gangrene Avascular necrosis of femoral head Bilateral carpal tunnel syndrome Peroneal neuropathy Lumbar degenerative disc disease Vitamin D deficiency GERD (gastroesophageal reflux disease) Migraine Hyperlipidemia Surgical History History of left nephrectomy (~1999) History of colonoscopy History of surgery Hx of cystoscopy History of bilateral breast reduction surgery History of hysterectomy History of cholecystectomy History of endoscopy (~06/2016) History of bladder repair surgery (~03/2015) S/P cystoscopy (~07/30/12) S/P panniculectomy History of hernia repair (~03/29/10) History of bladder surgery (~10/2009) History of gastric bypass (~2008) History of incisional hernia repair (~1999) Hx of umbilical hernia repair (~1999) H/O left nephrectomy S/P laparoscopic sleeve gastrectomy Family History Father Liver cancer Mother Breast cancer Sister Lung cancer Other Mental health problem Social History Household Members: Family Housing: House Do you presently have visiting nurse or other home services: No Alcohol intake: never Patient Tobacco Use Status: Never used Tobacco e-Cigarette/Vaping Use: Never Used Second Hand Smoke Exposure: No Advance Directives Date on File: 07/12/21 service: No Current occupational status: disabled Sexual orientation: Straight/Heterosexual Gender identity: Female Cognitive needs: No Hearing needs: No Vision needs: Yes Female Reproductive History Menstrual Age of Menarche: 13 Physical Exam Vital Signs: Last Vital Signs Pulse 71 08/26/24 13:32 BP 118/78 08/26/24 13:32 Pulse Ox 98 08/26/24 13:32 Oxygen Delivery Method Room Air 08/26/24 13:32 BMI result Body Mass Index 30.3 Const General: cooperative, comfortable and no acute distress Nutritional Appearance: average body habitus and other (BMI is 29) Orientation/consciousness: patient oriented x3 Eyes Pupils: Equal, round and reactive pupils present Neck Neck: Yes other (pain elicited on extension and flexion with limited rom) Resp Effort & Inspection: normal respiratory effort and able to speak in complete sentences Neuro Other: L. upper ext tremor / overshoot and undershoots finger to nose, dysmetria. General: patient oriented x3 and moves all extremities Cranial nerves: Yes CN's II-XII intact bilaterally, Yes Facial sensation intact/muscles of mastication intact, Yes Equal, round and reactive pupils present, Yes Normal accommodation reflex present, Yes Bilaterally intact EOM present, Yes Nystagmus not present, Yes Normal facial strength present, Yes Midline tongue present, Yes Ability to bilaterally rotate head present and Yes Ability to bilaterally elevate shoulders present Cognition (Neuro): normal cognition Gait exam (Neuro): Normal gait present Motor exam (neuro): 5/5 motor strength present throughout, Normal motor muscle tone present throughout, Tremors during motor activity present (R. Hand ) and Motor abnormalites present Deep tendon reflexes (DTR's): Right triceps reflex intensity grade: 2+, Left triceps reflex intensity grade: 2+, Rt Biceps (C5, C6): 2+, Left biceps reflex intensity grade: 2+, Right brachioradialis reflex intensity grade: 2+, Left brachioradialis reflex intensity grade: 2+, Right patellar reflex intensity grade: 2+ and Left patellar reflex intensity grade: 2+ Coordination: [id number] test normal (abnormal) Psych Appearance: grossly normal Speech and movement: Other speech and movement exam findings present (Psych) (hypophonia) Attitude: cooperative Thought process: Normal thought process present Thought content: Normal thought content present Results Reviewed Results Reviewed: MIGUEL Compliance Report 05/19/2024 - 08/16/2024 Total usage is 89/90 days and >4 hours 98.9% Avg use total days 10 hours and 33 min APAP- Press [id number] and leaks avg 3.2cmH20 AHI 4.1 Assessment & Plan Assessment & Plan (1) MIGUEL (obstructive sleep apnea): Comment: mild degree of sleep apnea. The AHI was 5/hr and oxygen mitul was 81%. Code(s): G47.33 - Obstructive sleep apnea (adult) (pediatric) Category: Medical (2) Periodic limb movements of sleep: Code(s): G47.61 - Periodic limb movement disorder Category: Medical (3) Obesity: Code(s): E66.9 - Obesity, unspecified Category: Medical Qualifiers: Body mass index: BMI 30.0-30.9 Obesity classification: adult class 1 (BMI 30 - 34.9) Obesity type: due to excess calories Serious obesity comorbidity presence: with serious comorbidity Qualified Code(s): E66.811 - Obesity, class 1; E66.09 - Other obesity due to excess calories; Z68.30 - Body mass index [BMI] 30.0-30.9, adult Plan MIGUEL Mild Continue CPAP daily, as tolerated, is being followed by Pulmonology for sob due to PE, for sleep continue taking melatonin 10mg PO daily 2-3 hours prior to bedtime. Reviewed compliance of CPAP nightly, as patient has HTN, and CKD stage 3, and the #1 modifiable RF for CV events is hypertension. RLS continue Gabapentin 800mg TID. Fatigue reviewed labs today. Mood depression f/u with therapist and psychiatry as needed. Medications: New melatonin-pyridoxal phos (B6) 2.5 mg- 338 mcg Take 1- 4 tablet daily 2 hours prior to bedtime to induce sleep. 1 tab sublingual BEDTIME 30 tabs 2RF rest less leg syndrome MDD 10mg G47.33 - Obstructive sleep apnea (adult) (pediatric), G47.9 - Sleep disorder, unspecified, R53.83 - Other fatigue Patient Instructions: Patient Education: Use CPAP therapy as directed accordingly for a minimum of 4-6 hours per night. Each sleep cycle is 90 min. N1, N2, N3 and REM, thus cycling through these 4 phases and reaching REM allows the Hypothalamus signaling to the Pituitary gland to release GNRH, GHRH, TSH, CRH etc. for growth tissue repair, mood and immunity. If you experience any difficulties with your machine reach out to your cpap provider, and or C for replacements, adjustments of masks, or pressure settings. Download the [employer] manny to monitor your own sleep cycle nightly. Write down your questions and lets discuss them. Wash the mask daily,replace hoses, change filters, fill your reservoir with distilled water as needed. PLMD vs. RLS she continues to move her legs at night and notices more bruising. F/U with Endocrine re: thyroid nodule 08/23/2024 F/U with Pulmonogist re: CT/ Scan for SOB is scheduled next week, due to h/o PE. Coding Level of Care Code Est Pt Level 4 (95360) Diagnoses MIGUEL (obstructive sleep apnea) G47.33 Periodic limb movements of sleep G47.61 Class 1 obesity due to excess calories with serious comorbidity and body mass index (BMI) of 30.0 to 30.9 in adult E66.811; E66.09; Z68.30 Body mass index: BMI 30.0-30.9 Obesity classification: adult class 1 (BMI 30 - 34.9) Obesity type: due to excess calories Serious obesity comorbidity presence: with serious comorbidity Time Spent (min) 30
--- OUTSIDE RECORDS SUMMARY | 2024-08-26 15:47 | XMS_ITS | Clinical Summary ---
Author Organization [employer] Address [address] [facility] 7t [place] [address] Care Team Providers Care Layer Out Plate Glass Name Role Phone Unavailable Primary Care Provider [...] Description 11/20/2024 1:00 PM EDT Office Visit [facility] ADULT D[facility]AL [address] [place] [address] Leatha Centeno Health Maintenance Due Date Last [...] Recently Relevant to Health [place] [address] [place]
--- OUTSIDE RECORDS SUMMARY | 2024-08-26 15:47 | XMS_ITS | Encounter Summary ---
Author Organization [facility] [facility] Address [address] [facility] 7t [place] [address] Care Team Providers Care Mill Tender Second Operator Name Role Phone Unavailable Primary Care Provider Unavailabl e Encounter Details Date Type Department Care Team (Latest Contact Info) Description 01/20/[address] [facility] CONVERSIONS Dental, Provider, DDS Social History [...] 11/20/2024 1:00 PM EDT Office Visit [facility] ADULT DENTAL [address] [place] [address] Leatha Centeno documented as of this encounter Visit Diagnoses Not on filedocumented in this encounter
--- OUTSIDE RECORDS SUMMARY | 2024-08-26 15:47 | XMS_ITS | Clinical Summary ---
Author Organization [facility] Address [address] [place] [address] Care Team Providers Care Sorter Lumber Straightener Name Role Phone Hung Montelongo MD Primary Care Provider +1- [phone] Allergies Active Allergy Reactions Criticality Noted Date [...] [facility] [address] [place] [phone] Alejandro Benz MD [address] [facility] [address] [place] [address] Health Maintenance Due Date Last Done Comments Breast Cancer Screening 1970 Hepatitis B Vaccine (1 of 3 - 19+ 3-dose series) 11/17 Pneumococcal Vaccine: 50+ Years (1 of 2 - PCV) 989 Colorectal Cancer Screening: Annual FOBT 2018 Colorectal Cancer Screening: Colonoscopy 2018 Colorectal Cancer Screening: Sigmoidoscopy 2018 Influenza Vaccine (Season Ended) 2024 Insurance [facility] Medicaid Care Teams Sorter Lumber Straightener Relationship Specialty Start Date End Date Hung Montelongo MD [address] [place] [phone] PCP - General 05/11/20
--- OUTSIDE RECORDS SUMMARY | 2024-08-26 15:47 | XMS_ITS | Encounter Summary ---
Author Organization [employer] [facility] Address [address] [facility] 7t [place] [address] Care Team Providers Care Pit Crew Support Worker Name Role Phone Unavailable Primary Care Provider Unavailabl e Encounter Details Date Type Department Care Team (Latest Contact Info) Description 11/30/2020 Abstract [facility] CONVERSIONS Dental, Provider, DDS Social History [...] Description 11/20/2024 1:00 PM EDT Office Visit [facility] ADULT DENTAL [address] [place] [address] Leatha Centeno documented as of this encounter Visit Diagnoses Not on filedocumented in this encounter
== END 2024-08-26 14:25 | disposition home or self-care (01) ==
LOC: HO.HSMS 13:17
PROVIDERS: PCP Internal Medicine; Visit Provider Physician Assistant Medical
DX: G47.33 Obstructive sleep apnea (adult) (pediatric) (principal); G47.61 Periodic limb movement disorder; E66.811 Obesity, class 1; E66.09 Other obesity due to excess calories; Z68.30 Body mass index [BMI] 30.0-30.9, adult
CPT/HCPCS: 99214

== ENCOUNTER → 2024-08-26 13:16 | Outpatient (BNVA) | payer OTHER, SELFPAY | PROVIDERS: PCP Internal Medicine; Visit Provider Physician Assistant Medical | DX: G47.33 Obstructive sleep apnea (adult) (pediatric) (principal); G47.61 Periodic limb movement disorder; E66.811 Obesity, class 1; E66.09 Other obesity due to excess calories; Z68.30 Body mass index [BMI] 30.0-30.9, adult | CPT/HCPCS: 99212 ==

== ENCOUNTER 2024-08-27 09:53 | Outpatient (AMB) | payer OTHER, SELFPAY ==
--- NOTE | 2024-08-27 09:54 | A.OFFVIS_ITS ---
Vital Signs 08/27/24 09:58 Height 5 ft 3 in Weight 171 lb BMI 30.3 BP 130/85 Blood Pressure Location Rt brachial Position Sitting Pulse 66 Intake Visit Reasons: umbilical hernia Intake Note: Patient here today to discuss Umbilical hernia repair. Please refer to office visit note from 08-20-2024. Patient c/o: painful umbilical bulge. Reports sugarcane research technician advised on Eliquis dosage for surgery. Skip Locator Required: No Accompanied by: Self / Same As Patient Allergies atorvastatin Adverse Reaction (Intermediate, Verified 08/27/24 09:58) elevated LFTs rosuvastatin Adverse Reaction (Intermediate, Verified 08/27/24 09:58) Elevated LFTs acetaminophen Adverse Reaction (Unknown, Verified 08/27/24 09:58) Unknown HPI HPI umbilical hernia: Details: [age] year old female here for follow-up for an umbilical hernia. She actually he had been seen by Dr. Mcgill in the past and was scheduled for repair of this umbilical hernia She says that she has felt this lump on her umbilicus for a few months now. She describes having pain on this particular area. She says the lump occasionally seems bigger at times. She denies signs of bowel obstruction She also has this large protuberance on the left flank from her previous nephrectomy likely due to weakness of the abdominal wall on this side from her left flank incision. She is on Eliquis for a history of PE last January,. [facility] Medical History Pure hypercholesterolemia Left breast mass Pulmonary nodules Chronic kidney disease, stage III (moderate) Obesity (BMI 30-39.9) Renal cyst Diverticulosis Tubular adenoma Asthma Spondylosis of lumbar spine Sacroiliitis Dizziness of unknown etiology Chronic constipation Hx of schizophrenia Panic attacks PTSD (post-traumatic stress disorder) Dyspareunia Pyelonephritis Ingrown toenail Iron deficiency anemia Major depression, recurrent Anxiety Insomnia Tremor Orthostatic hypotension Incisional hernia without obstruction or gangrene Avascular necrosis of femoral head Bilateral carpal tunnel syndrome Peroneal neuropathy Lumbar degenerative disc disease Vitamin D deficiency GERD (gastroesophageal reflux disease) Migraine Hyperlipidemia Surgical History History of left nephrectomy (~1999) History of colonoscopy History of surgery Hx of cystoscopy History of bilateral breast reduction surgery History of hysterectomy History of cholecystectomy History of endoscopy (~06/2016) History of bladder repair surgery (~03/2015) S/P cystoscopy (~07/30/12) S/P panniculectomy History of hernia repair (~03/29/10) History of bladder surgery (~10/2009) History of gastric bypass (~2008) History of incisional hernia repair (~1999) Hx of umbilical hernia repair (~1999) H/O left nephrectomy S/P laparoscopic sleeve gastrectomy Family History Father Liver cancer Mother Breast cancer Sister Lung cancer Other Mental health problem Social History Household Members: Family Housing: House Do you presently have visiting nurse or other home services: No Alcohol intake: never Patient Tobacco Use Status: Never used Tobacco e-Cigarette/Vaping Use: Never Used Second Hand Smoke Exposure: No Advance Directives Date on File: 07/12/21 service: No Current occupational status: disabled Sexual orientation: Straight/Heterosexual Gender identity: Female Cognitive needs: No Hearing needs: No Vision needs: Yes Female Reproductive History Menstrual Age of Menarche: 13 Review of Systems Const Denies chills and Denies fever(s) Card Denies chest pain, Denies dyspnea and Denies dyspnea on exertion Resp Denies cough, Denies dyspnea and Denies dyspnea on exertion GI Denies hematochezia and Denies change in bowel habits Denies hematuria Musc Denies back pain and Denies limited range of motion Neuro Denies focal weakness and Denies convulsions Psych Denies depression and Denies mood swings Physical Exam Vital Signs: Last Vital Signs Pulse 66 08/27/24 09:58 BP 130/85 08/27/24 09:58 BMI result Body Mass Index 30.3 Const General: comfortable and no acute distress Orientation/consciousness: patient oriented x3 Neck Neck: Yes no lymphadenopathy Resp Auscultation: clear to auscultation bilaterally Cardio Rhythm: regular rhythm GI Other: Supraumbilical hernia, palpable with Valsalva, about 2.5 cm, defect is difficult to palpate, also with tenderness Palpation (GI): Soft to palpation, nontender and no guarding Neuro General: patient oriented x3 Assessment & Plan Assessment & Plan (1) Umbilical hernia: Code(s): K42.9 - Umbilical hernia without obstruction or gangrene Category: Surgical Plan: She has been having this pain and discomfort in the supraumbilical area for about almost 6 months. She describes having a mass that seems to be more protuberant at times Examination does suggest a supraumbilical hernia as described above. I explained to her the technique of repair of the umbilical hernia with mesh. I reviewed the risks including but not limited to bleeding, infections, injury to other organs including bowel, recurrence, postop pain, as well as the benefits and alternatives. I explained to her what to expect postoperatively She understands and wants to proceed She understands that she will need to stop her Eliquis for about 2-3 days preoperatively. Coding Level of Care Code New Pt Level 3 (76461) Diagnoses Umbilical hernia K42.9
[2024-08-27 09:58] VITALS: BP 130/85; PULSE 66; BMI 30.3
--- OUTSIDE RECORDS SUMMARY | 2024-08-27 11:09 | XMS_ITS | Clinical Summary ---
Author Organization [employer] Address [address] [facility] 7t [place] [address] Care Team Providers Care Oracle R12 Developer Name Role Phone Unavailable Primary Care Provider [...] Visit [facility] ADULT [facility] [address] [place] [address] Leatha Centeno Health Maintenance Due Date Last [...] Recently Relevant to [place] [address] [place]
--- OUTSIDE RECORDS SUMMARY | 2024-08-27 11:09 | XMS_ITS | Clinical Summary ---
Author Organization [facility] Facility Address [address] [place] [address] Care Team Providers Care Word Processor Name Role Phone Hung Montelongo MD Primary Care Provider +1- [phone] Allergies Active Allergy Reactions Criticality Noted Date [...] Visit [facility] [address] [place] [phone] Alejandro Benz MD [address] [facility] [address] [place] [address] Health Maintenance Due Date Last Done Comments Breast Cancer Screening 1970 Hepatitis B Vaccine (1 of 3 - 19+ 3-dose series) 11/17 Pneumococcal Vaccine: 50+ Years (1 of 2 - PCV) 989 Colorectal Cancer Screening: Annual FOBT 2018 Colorectal Cancer Screening: Colonoscopy 2018 Colorectal Cancer Screening: Sigmoidoscopy 2018 Influenza Vaccine (Season Ended) 2024 Insurance [facility] Medicaid Care Teams Word Processor Relationship Specialty Start Date End Date Hung Montelongo MD [address] [place] [id number] PCP - General 05/11/20
--- OUTSIDE RECORDS SUMMARY | 2024-08-27 11:09 | XMS_ITS | Encounter Summary ---
Author Organization [facility] Address [address] [facility] 7[address] [place] [address] Care Team Providers Care Nurse Tech Name Role Phone Unavailable Primary Care Provider Unavailabl e Encounter Details Date Type Department Care Team (Latest Contact Info) Description 01/20/2022 Abstract [facility] CONVERSIONS Dental, Provider, DDS Social History [...] 11/20/2024 1:00 PM EDT Office Visit [facility] ADULT DENTAL [address] [place] [address] Leatha Centeno documented as of this encounter Visit Diagnoses Not on filedocumented in this encounter
--- OUTSIDE RECORDS SUMMARY | 2024-08-27 11:09 | XMS_ITS | Encounter Summary ---
Author Organization [employer] [facility] Address [address] [facility] 7[address] [place] [address] Care Team Providers Care Lighting Designer Name Role Phone Unavailable Primary Care Provider Unavailabl e Encounter Details Date Type Department Care Team (Latest Contact Info) Description 11/30/2020 Abstract [facility] CONVERSIONS Dental, Provider, DDS Social History Tobacco [...] 11/20/2024 1:00 PM EDT Office Visit [facility] [address] [place] [address] Leatha Centeno documented as of this encounter Visit Diagnoses Not on filedocumented in this encounter
== END 2024-08-27 10:11 | disposition home or self-care (01) ==
LOC: HO.HGS 09:54
PROVIDERS: PCP Internal Medicine; Visit Provider Surgery
DX: K42.9 Umbilical hernia without obstruction or gangrene (principal)
CPT/HCPCS: 99203

== ENCOUNTER → 2024-08-27 09:53 | Outpatient (BNVA) | payer OTHER, SELFPAY | PROVIDERS: PCP Internal Medicine; Visit Provider Surgery | DX: K42.9 Umbilical hernia without obstruction or gangrene (principal) | CPT/HCPCS: 99202 ==

== ENCOUNTER 2024-09-03 15:06 | Outpatient (REF) | payer OTHER, SELFPAY ==
[2024-09-03 16:29] LABS: Appearance Urine Clear; Color Urine Yellow; Glucose Urine UA Negative (Negative); Leukocyte Esterase Urine Moderate (2+) (Negative); Nitrite Urine Negative (Negative); UMIC TRIGGER UACC YES; Urine Blood Negative (Negative); Urine Ketones Negative (Negative); Urine Protein Negative (Neg-Trace)
[2024-09-03 16:32] LABS: Bacteria Urine Trace (None Seen); Hyaline Casts Urine 0-2 /LPF (0-2); RBC Urine 0-2 /HPF (0-2); Squamous Epithelial Cell Urine 0-2 /HPF (0-2); UACC Culture Trigger YES; WBC Urine 21-50 /HPF (0-5)
--- OUTSIDE RECORDS SUMMARY | 2024-09-03 16:52 | XMS_ITS | Encounter Summary ---
Author Organization [employer] Address [address] [facility] 7t [place] [address] Care Team Providers Care Casket Inspector Name Role Phone Unavailable Primary Care Provider Unavailabl e Encounter Details Date Type Department Care Team (Latest Contact Info) Description 01/20/2022 Abstract [facility] CONVERSIONS Dental, Provider, DDS Social History [...] Description 11/20/2024 1:00 PM EDT Office Visit [facility] [address] [place] [address] Leatha Centeno documented as of this encounter Visit Diagnoses Not on filedocumented in this encounter
--- OUTSIDE RECORDS SUMMARY | 2024-09-03 16:52 | XMS_ITS | Clinical Summary ---
Author Organization [employer] Address [address] [facility] 7t [place] [address] Care Team Providers Care Nurse Aide Name Role Phone Unavailable Primary Care Provider [...] Description 11/20/2024 1:00 PM EDT Office Visit [facility] [address] [place] [address] Leatha Centeno Health Maintenance Due Date Last [...] Most Recently [place]vant [id number] [facility] MEDICAID STAND ADULT
--- OUTSIDE RECORDS SUMMARY | 2024-09-03 16:52 | XMS_ITS | Encounter Summary ---
Author Organization [employer] Address [address] [facility] 7[address] [place] [address] Care Team Providers Care Electro Optics Engineer Name Role Phone Unavailable Primary Care Provider Unavailabl e Encounter Details Date Type Department Care Team (Latest Contact Info) Description 11/30/2020 Abstract [facility] CONVERSION[facility] Dental, Provider, DDS Social [...] 11/20/2024 1:00 PM EDT Office Visit [facility] [address] [place] [address] Leatha Centeno documented as of this encounter Visit Diagnoses Not on filedocumented in this encounter
--- OUTSIDE RECORDS SUMMARY | 2024-09-03 16:52 | XMS_ITS | Encounter Summary ---
Author Organization [facility] Address [address] [address] Phone Care Team Providers Care Welfare Case Worker Name Role Phone Hung Montelongo MD Primary Care Provider +1- [phone] Reason for Visit * Reason Comments Essential hypertension Encounter Details Date Type Department Care Team (Late st Contact Info) Description 08/29/2024 3:45 PM EDT Office Visit [facility] [address] [place] [phone] Alejandro Benz MD [address] [address] Renal stone (Primary Dx); Chronic [...] encounter Patient Instructions * Patient Instructions* Alejandro Benz MD - 08/29/2024 3:45 PM EDT No [...] Visit [facility] [address] [place] [phone] Alejandro Benz MD [address] [facility] [address] [place] [address] Scheduled Orders Name Type Priority [...] (mild) documented in this encounter Care Teams Welfare Case Worker Relationship Specialty Start Date End Date Hung Montelongo MD [address] [place] [address] PCP - General 05/11/20 documented as of this encounter
--- OUTSIDE RECORDS SUMMARY | 2024-09-03 16:52 | XMS_ITS | Clinical Summary ---
Author Organization [facility] Address [address] [place] [id number] Care Team Providers Care Roll Edge Machine Operator Name Role Phone Hung Montelongo MD Primary Care Provider +1- [phone] Allergies Active Allergy Reactions Criticality Noted Date [...] [facility] [address] [place], [place] [address] Alejandro Benz [...] [facility] [address] [place] [phone] Alejandro Benz MD [address] [facility] [address] [place] [phone] Health Maintenance Due Date Last Done Comments [...] ahmadi Result from Last 3 Months Insurance [facility] Medicaid Care Teams Roll Edge Machine Operator Relationship Specialty Start Date End Date Hung Montelongo MD [address] [place] [address] PCP - General 05/11/20
== END 2024-09-03 15:07 | disposition home or self-care (01) ==
LOC: HO.LAB 15:06
PROVIDERS: Absent Provider Internal Medicine; PCP Internal Medicine; Visit Provider Advanced Practice Midwife
DX: R35.0 Frequency of micturition (principal); Z71.2 Person consulting for explanation of examination or test findings
CPT/HCPCS: 81001; 81003; 87086; 87088; 87186; 99212

== ENCOUNTER 2024-09-03 15:06 | Outpatient (AMB) | payer OTHER, SELFPAY ==
--- NOTE | 2024-09-03 15:07 | A.OFFVIS_ITS ---
Intake Visit Reasons: Breast US Follow up Internal Grinding Machine Operator Required: Yes Internal Grinding Machine Operator Language: Aquatic Performer Services: Internal Grinding Machine Operator Present Internal Grinding Machine Operator Name: Amber Heel Nailing Machine Operator: Heel Nailing Machine Operator Present (Amber) Allergies atorvastatin Adverse Reaction (Intermediate, Verified 09/03/24 15:08) elevated LFTs rosuvastatin Adverse Reaction (Intermediate, Verified 09/03/24 15:08) Elevated LFTs acetaminophen Adverse Reaction (Unknown, Verified 09/03/24 15:08) Unknown HPI Comments Details: Patient is here today for a follow up ultrasound results, history of left breast lump palpated with the last exam. History of breast reduction surgery. She also reports she has been incontinent of urine for about a week when she stands up she just feels the urine coming out. She denies any other symptoms. [facility] Medical History Pure hypercholesterolemia Left breast mass Pulmonary nodules Chronic kidney disease, stage III (moderate) Obesity (BMI 30-39.9) Renal cyst Diverticulosis Tubular adenoma Asthma Spondylosis of lumbar spine Sacroiliitis Dizziness of unknown etiology Chronic constipation Hx of schizophrenia Panic attacks PTSD (post-traumatic stress disorder) Dyspareunia Pyelonephritis Ingrown toenail Iron deficiency anemia Major depression, recurrent Anxiety Insomnia Tremor Orthostatic hypotension Incisional hernia without obstruction or gangrene Avascular necrosis of femoral head Bilateral carpal tunnel syndrome Peroneal neuropathy Lumbar degenerative disc disease Vitamin D deficiency GERD (gastroesophageal reflux disease) Migraine Hyperlipidemia Surgical History History of left nephrectomy (~1999) History of colonoscopy History of surgery Hx of cystoscopy History of bilateral breast reduction surgery History of hysterectomy History of cholecystectomy History of endoscopy (~06/2016) History of bladder repair surgery (~03/2015) S/P cystoscopy (~07/30/12) S/P panniculectomy History of hernia repair (~03/29/10) History of bladder surgery (~10/2009) History of gastric bypass (~2008) History of incisional hernia repair (~1999) Hx of umbilical hernia repair (~1999) H/O left nephrectomy S/P laparoscopic sleeve gastrectomy Family History Father Liver cancer Mother Breast cancer Sister Lung cancer Other Mental health problem Social History Household Members: Family Housing: House Do you presently have visiting nurse or other home services: No Alcohol intake: never Patient Tobacco Use Status: Never used Tobacco e-Cigarette/Vaping Use: Never Used Second Hand Smoke Exposure: No Advance Directives Date on File: 07/12/21 service: No Current occupational status: disabled Sexual orientation: Straight/Heterosexual Gender identity: Female Cognitive needs: No Hearing needs: No Vision needs: Yes Female Reproductive History Menstrual Age of Menarche: 13 Review of Systems Const All systems reviewed & are unremarkable except as noted in HPI and below Reports no additional complaints Skin/Breast Reports system reviewed and no additional complaints, except as documented and Reports as per HPI Physical Exam Const General: cooperative, healthy appearing and no acute distress Chest Other: Bilateral reconstruction scarring and contouring. Breast/axilla inspection: normal inspection of the breasts and normal inspection of the axillae Breast/axilla palpation: normal palpation of the breasts Skin General skin exam: no rashes or lesions noted Results AMB Urinalysis, Automated UA Leukoctes 1 Asad/uL Last Edit by ADONIS Coley on 09/03/24 15:26 UA Nitrite Negative Last Edit by ADONIS Coley on 09/03/24 15:26 UA Urobilinogen 0 mg/dL Last Edit by ADONIS Coley on 09/03/24 15:2 6 UA Protein 0 mg/dL Last Edit by ADONIS Coley on 09/03/24 15:26 UA pH 6.0 Last Edit by ADONIS Coley on 09/03/24 15:26 UA Blood 0 Montrell/uL Last Edit by ADONIS Coley on 09/03/24 15:26 UA Specific Hudson 1.015 Last Edit by ADONIS Coley on 09/03/24 15:26 UA Ketone Negative Last Edit by ADONIS Coley on 09/03/24 15:26 UA Bilirubin 0 mg/dL Last Edit by ADONIS Coley on 09/03/24 15:26 UA Glucose 0 mg/dL Last Edit by ADONIS Coley on 09/03/24 15:26 Results Reviewed Results Reviewed: [facility] [address] [place] [address] Ultrasound Report Signed Patient: Xenia Graves MR#: [id number] : 1970 Acct:[id number] Age/Sex: 53 / F ADM Date: 07/11/24 Loc: HO.MAMMO Attending Dr: Kandice Coronel CNM Ordering Physician: Kandice Coronel CNM Date of Service: 07/11/24 Procedure(s): US breast LT limited mamm only Accession Number(s): [id number] cc: Hung Montelongo MD; Kandice Coronel CNM~ EXAMINATION: MM DIAGNOSTIC DIGITAL BREAST TOMOSYNTHESIS, LEFT Limited left breast ultrasound. CLINICAL INFORMATION: Physician felt palpable lump in the left breast at 7:00. COMPARISON: Mammography: Comparison is made with available priors]. TECHNIQUE: Digital breast tomosynthesis is performed in both the craniocaudal and mediolateral oblique views along with computer-aided detection (CAD). Synthesized 2D images are generated from the tomosynthesis. FINDINGS: There are scattered areas of fibroglandular density (ACR BI-RADS breast composition Category b). Status post reduction mammoplasty. There are no significant masses, abnormal calcifications, or other abnormalities. Targeted color Doppler ultrasound scanning in the area of the physician felt palpable lump in the left lower inner quadrant demonstrates normal fibroglandular breast tissue. There is no sonographic abnormality. US/US breast LT limited mamm only IMPRESSION: No mammographic or sonographic abnormality to account for the physician felt palpable lump. Recommend clinical evaluation follow-up. ASSESSMENT: BI-RADS BI-RADS 2 - Benign Findings RECOMMENDATION: 1 year F/U Results were provided to the patient at time of visit by the technologist. This patient's information was entered into a reminder system with a target due date for their next mammogram. Electronically signed by: Emily Brennan DO 07/11/2024 03:03 PM EDT Dictated By: Emily Brennan DO Signed By: <Electronically signed by Emily Brennan DO in OV> 07/11/24 1503 DD/ 1410 TD/TT: 07/11/24 1425 Pnp: Assessment & Plan Assessment & Plan (1) Urinary frequency: Code(s): R35.0 - Frequency of micturition Category: Medical Plan: Urine dip negative. Advised to speak to her primary care tomorrow regarding her symptoms, she was recently seen Dr. Dunaway in urology she will need to make a follow up appointment there. (2) Encounter to discuss test results: Code(s): Z71.2 - Person consulting for explanation of examination or test findings Plan Reviewed ultrasound and mammogram findings which were negative and recommended routine follow up care. Breast exam was normal today. Patient has no other concerns. Annual exam scheduled for May 2025. The patient expressed understanding and agreement with the plan of care. All of her questions and concerns were addressed to the best of my ability. This note is constructed using voice recognition software. While every effort has been made to ensure accuracy, patient financial advocate errors may have been included. Orders: Orders AMB Urinalysis Automated Today R35.0 - Frequency of micturition Coding Level of Care Code Est Pt Level 3 (39942) Diagnoses Urinary frequency R35.0 Encounter to discuss test results Z71.2
--- OUTSIDE RECORDS SUMMARY | 2024-09-03 16:18 | XMS_ITS | Clinical Summary ---
Author Organization [facility] Address [address] [place] [address] Care Team Providers Care Assembler Musical Equipment Name Role Phone Hung Montelongo MD Primary Care Provider [phone]- [phone] Allergies Active Allergy Reactions Criticality Noted Date [...] mgOral 4 times daily, Reported on 08/31/2021 LORazepam (ATIVAN) 1 MG tablet TOME WU TABLETA DOS VECES AL D A CUANDO SEA NECESARIO 3 Active ARIPiprazole (ABILIFY) 5 MG tablet Take 5 mg by mouth 1 (one) time each day Active Vraylar 3 MG capsule TOME 1 C PSULA POR V A ORAL TODOS LOS D 5 Active furosemide (LASIX) 20 MG tablet TAKE 1 TABLET BY MOUTH EVERY MORNING NEEDED FOR SEVERE EDEMA 5 Active verapamil (CALAN) 40 MG tablet TOME 1 TABLETA POR V A ORAL DOS VECES AL D A 5 Active Banophen 25 MG capsule TOME 1 C PSULA POR V A ORAL RACHAEL VECES AL D A CUANDO SEA NECESARIO PARA LA ANSIEDAD /DORMIR 5 Active rosuvastatin (CRESTOR) 5 MG tablet TOME WU TABLETA POR V A ORAL TODOS LOS D Active apixaban (ELIQUIS) 5 MG tablet Take 5 mg by mouth in the morning and 5 mg in the evening. Active Linzess 145 MCG capsule TOME 1 C PSULA POR V A ORAL TODOS LOS D 5 Active famotidine (PEPCID) 20 MG tablet Take 20 mg by mouth every night 5 Active Melatonin 10 MG capsule Take by mouth Activ e nitrofurantoin (MACRODANTIN) 50 MG capsule TAKE 1 CAPSULE BY MOUTH ONCE W/ FOOD USE 30 MINS BEFORE OF AFTER SEXUAL ACTIVITY DIRECTED BY 5 Active pantoprazole (PROTONIX) 40 MG EC tablet TAKE ONE TABLET HALF AN HOUR BEFORE BREAKFAST 5 Active ferrous sulfate 325 (65 Fe) MG EC tablet Take 325 mg by mouth 1 (one) time each day 08/30/19 25 Discontin ued(Stopp ed at Discharge ) senna (SENOKOT) 8.6 MG tablet Take 1 tablet by mouth 1 (one) time each day 08/30/19 25 Discontin ued(Stopp ed at Discharge ) Active Problems Problem Noted Date Diagnosed Date Chronic kidney disease, stage 2 (mild) 2 Chronic kidney disease stage 3 11/23/2020 Essential hypertension 11/23/2020 Renal stone 11/23/2020 Resolved Problems Problem Noted Date Diagnosed Date Resolved Date Pain in toe 10/05/2017 11/23/2020 Paronychia 10/05/2017 11/23/2020 Encounters Date Type Department Care Team Description 08/29/2024 3:45 PM EDT Office Visit [facility] [address] [place], [place] [address] Alejandro Benz MD Renal stone (Primary Dx); Chronic kidney disease, stage 2 (mild) from Last 3 Months Social History Tobacco [...] Sign Reading Time Taken Comments Blood Pressure 120/80 08/29/2024 3:27 PM EDT Pulse 72 08/29/2024 3:27 PM EDT Temperature - - Respiratory Rate - - Oxygen Saturation 96% 09/07/2023 1:27 PM EDT Inhaled Oxygen Concentration - - Weight 77.2 kg (170 lb 3.2 oz) 08/29/2024 3:27 P M EDT Height 160 cm (5' 3 ) 05/25/2020 12:00 PM EST Body Mass Index 30.15 05/25/2020 12:00 PM EST Plan of Treatment Upcoming Encounters Date Type Department Care Team (Late st Contact Info) Description 06/02/2025 1:30 PM EST Office Visit [facility] [address] [place] [address] Alejandro Benz MD [address] [facility] [address] [place] [phone] Health Maintenance Due Date Last Done Comments Breast Cancer Screening 1970 Hepatitis B Vaccine (1 of 3 - 19+ 3-dose series) 11/17 Pneumococcal Vaccine: 50+ Years (1 of 2 - PCV) 989 Colorectal Cancer Screening: Annual FOBT 2018 Colorectal Cancer Screening: Colonoscopy 2018 Colorectal Cancer Screening: Sigmoidoscopy 2018 Influenza Vaccine (Season Ended) 2024 Procedures Procedure Name Priority Date/Time Associated Diagnosis Comments ALT EXT LABS Routine 08/21/2024 from Last 3 Months Results * ALT EXT LABS (08/21/2024) WBC 6.1 3.3 - 10.0 10*3/ML Red Blood Cell Count 3.99 Hemoglobin 13.4 12.0 - 16.0 Hematocrit 40.4 36.0 - 46.0 Platelets 275 150 - 399 10*3/UL BUN 15 4 - 21 mg/dL Creatinine 1.06 0.50 - 1.10 mg/dL Albumin 3.9 3.5 - 5.0 g/dL Sodium 139 137 - 147 Potassium 4.4 3.4 - 5.5 Chloride 106.0 99.0 - 108.0 08/21/2024 us Historical Provider LAB BLOOD ORDERABLES Josette ahmadi Result from Last 3 Months Insurance [facility] Medicaid Care Teams Assembler Musical Equipment Relationship Specialty Start Date End Date Hung Montelongo MD [address] [place] [address] PCP - General 05/11/20
--- OUTSIDE RECORDS SUMMARY | 2024-09-03 16:18 | XMS_ITS | Encounter Summary ---
Author Organization [facility] Address [address] [address] Phone Care Team Providers Care Oyster Grower Name Role Phone Hung Montelongo MD Primary Care Provider [phone]- [phone] Reason for Visit * Reason Comments Essential hypertension Encounter Details Date Type Department Care Team (Late st Contact Info) Description 08/29/2024 3:45 PM EDT [facility] Visit [facility] [address] [place] [phone] Alejandro Benz MD [address] [address] Renal stone (Primary Dx); Chronic kidney disease, stage 2 (mild) Social History Tobacco Use Types Packs/Day Years Used Date Smoking Tobacco: Never Smokeless Tobacco: Never Alcohol Use Standard Drinks/Week Comments No 0 (1 standard drink = 0.6 oz pur e alcohol) Comments Unknown Sex and Gender Information Value Date Recorded Sex Assigned at Not on file Legal Sex Female 4:59 PM EST Gender Identity Not on file Sexual Orientation Not on file documented as of this encounter Last Filed Vital Signs Vital Sign Reading Time Taken Comments Blood Pressure 120/80 08/29/2024 3:27 PM EDT Pulse 72 08/29/2024 3:27 PM EDT Temperature - - Respiratory Rate - - Oxygen Saturation - - Inhaled Oxygen Concentration - - Weight 77.2 kg (170 lb 3.2 oz) 08/29/2024 3:27 P M EDT Height - - Body Mass Index 30.15 05/25/2020 12:00 PM EST documented in this encounter Patient Instructions * Patient Instructions* Alejandro eBnz MD - 08/29/2024 3:45 PM EDT No NSAIDS - Do not take non-steroidal anti-inflammatory medications (NSAIDS) such as Ibuprofen (Advil, Motrin, etc), Naproxen (Aleve, etc), Celecoxib (Celebrex) or Ketoprofen. These common arthritis medications can cause permanent kidney damage or worsen your kidney damage. For mild occasional pain, Acetaminophen (Tylenol, etc) is safe for your kidneys. Blood pressure monitoring education: Monitor home blood pressure values after sitting for 5 minutes with back and arm support. Keep a log. Bring your log and blood pressure cuff to your next visit. documented in this encounter Progress Notes * Alejandro Benz MD - 08/29/2024 3:45 PM EDT Images from the original note were not included. Patient Name: Xenia Sandoval, Female Date of : 1970, 53 y.o. Date: 08/29/24 [] New Patient [x] Established Patient [] New Hospital Follow Up [] Established Hospital Follow Up [] Telemed Visit [] H&P Referring MD: Hung Montelongo MD PCP: Hung Montelongo MD Reason For Visit Low BPs, Kidney Stoens Xenia Sandoval is a 53 y.o. female seen today in f/u re: h/o kidney stones and low BPs. Since last seen she had severeal asymptomatic stones which she passed spontaneously and painless GH--> she has upcoming F/U with Urol Cont f/u with Urol ( Nicho) and still ques if she is actively passing small stones. Cont to c/o back pain LHeaded epsiode have resolved now that she is on midrdine. Denies chest pain or shortness of breath. No blood in the urine or difficulties urinating. Complains of mild arthritic complaints but avoids use of NSAIDs. Denies chest pain or shortness of breath. No blood in the urine or difficulties urinating. Complains of mild arthritic complaints but avoids use of NSAIDs. The following portions of the patient's chart were reviewed in this encounter and updated as appropriate: Allergies Meds Problems Med Hx Surg Hx Fam Hx Constitutional: Negative for chills and fever. Respiratory: Negative for cough and shortness of breath. Cardiovascular: Negative for chest pain, palpitations and leg swelling. Gastrointestinal: Negative for abdominal pain, nausea and vomiting. Genitourinary: Negative for dysuria, frequency, hematuria and urgency. Musculoskeletal: Positive for back pain. Full 13 point review of systems unremarkable except as noted above. Past Medical History: Diagnosis Date Anxiety disorder Asthma Depressive disorder Essential hypertension Nephrolithiasis Osteoarthritis Pain in toe 10/05/2017 Paronychia 10/05/2017 Sleep apnea Stage 3 chronic kidney disease Past Surgical History: Procedure Laterality Date HERNIA REPAIR NEPHRECTOMY total left OTHER SURGICAL HISTORY bladder surgery Social History Tobacco Use Smoking status: Never Smokeless tobacco: Never Substance Use Topics Alcohol use: No History reviewed. No pertinent family history. Current Outpatient Medications Medication Sig Dispense Refill Banophen 25 MG capsule TOME 1 C PSULA POR V A ORAL RACHAEL VECES AL D A CUANDO SEA NECESARIO PARA LA ANSIEDAD /DORMIR D3-1000 25 MCG (1000 UT) capsule Take 1,000 Units by mouth 1 (one) time each day famotidine (PEPCID) 20 MG tablet Take 20 mg by mouth every night furosemide (LASIX) 20 MG tablet TAKE 1 TABLET BY MOUTH EVERY MORNING NEEDED FOR SEVERE EDEMA Linzess 145 MCG capsule TOME 1 C PSULA POR V A ORAL TODOS LOS D LORazepam (ATIVAN) 1 MG tablet TOME WU TABLETA DOS VECES AL D A CUANDO SEA NECESARIO meclizine (ANTIVERT) 25 MG tablet Take 25 mg by mouth 3 (three) times a day if needed nitrofurantoin (MACRODANTIN) 50 MG capsule TAKE 1 CAPSULE BY MOUTH ONCE W/ FOOD USE 30 MINS BEFORE OF AFTER SEXUAL ACTIVITY DIRECTED BY pantoprazole (PROTONIX) 40 MG EC tablet TAKE ONE TABLET HALF AN HOUR BEFORE BREAKFAST traMADol (ULTRAM) 50 MG tablet Take 50 mg by mouth every 6 (six) hours if needed for moderate pain verapamil (CALAN) 40 MG tablet TOME 1 TABLETA POR V A ORAL DOS VECES AL D A Vraylar 3 MG capsule TOME 1 C PSULA POR V A ORAL TODOS LOS D apixaban (ELIQUIS) 5 MG tablet Take 5 mg by mouth in the morning and 5 mg in the evening. ARIPiprazole (ABILIFY) 5 MG tablet Take 5 mg by mouth 1 (one) time each day atorvastatin (LIPITOR) 10 MG tablet Take 10 mg by mouth 1 (one) time each day gabapentin (NEURONTIN) 800 MG tablet Take 800 mg by mouth 3 (three) times a day Melatonin 10 MG capsule Take by mouth midodrine (PROAMATINE) 10 MG tablet Take 1 tablet (10 mg total) by mouth 4 (four) times a day (Patient taking differently: Take 5 mg by mouth in the morning and 5 mg at noon and 5 mg in the evening and 5 mg before bedtime.) 360 tablet 2 rosuvastatin (CRESTOR) 5 MG tablet TOME WU TABLETA POR V A ORAL TODOS LOS D No current facility-administered medications for this visit. Allergies Allergen Reactions Bupropion Citalopram Escitalopram Mirtazapine Prednisone Tramadol Tylenol [Acetaminophen] Objective: 122/70 no orhto changes by me Vitals: 08/29/24 1527 BP: 120/80 BP Location: Right upper arm Patient Position: Sitting BP Cuff Size: Adult Pulse: 72 Weight: 170 lb 3.2 oz (77.2 kg) Vitals reviewed. Constitutional: She appears well-developed. No distress. Cardiovascular: Normal rate, regular rhythm and normal heart sounds. She exhibits no edema. Pulmonary/Chest: Effort normal and breath sounds normal. No respiratory distress. Abdominal: Soft. There is no abdominal tenderness. No hernia. Skin: Skin is warm and dry. Psychiatric: She has a normal mood and affect. Her behavior is normal. No results found for: EGFRAFR eGFR Non- Date Value Ref Range Status 05/25/2020 >60 >60 ml/min Chemistry Lab Units 08/21/24 0000 03/01/24 1141 09/05/23 0000 CREATININE mg/dL 1.06 0.99 0.93 BUN mg/dL 15 17* 13 POTASSIUM 4.4 4.5 4.1 SODIUM 139 142 144 CO2 mmol/L -- 24 -- CHLORIDE 106.0 112* 113.0* ALBUMIN g/dL 3.9 -- -- Bone Mineral Lab Units 03/01/24 1141 09/05/23 0000 CALCIUM mg/dL 8.8 9.2 CBC Lab Units 08/21/24 0000 09/05/23 0000 WBC AUTO 10*3/ML 6.1 5.2 MCV -- 102.2 HEMATOCRIT 40.4 42.2 HEMOGLOBIN 13.4 13.9 PLATELETS AUTO 10*3/UL 275 253 Urine Lab Units 03/01/24 1225 PROT/CREAT RATIO UR 0.07 ALB MG/G CREAT UR ug/mg cr 10.9 Urine Lab Units 03/01/24 1225 PH U 5.5 COLOR U Yellow GLUCOSE U MG/DL mg/dL Negative WBC UR HPF /HPF 11-20* RBC UR HPF /HPF 0-2 PLAN: Assessment & Plan 51 Y/O hF STAGE 2 CKD SOLITARY KIDNEY AND MULTIPLE RENAL CYSTS H/O HYPOCITRAURIA AND BODERLINE HYPEROXALURIA AND HYPERCALCURIA H/O KIDNEY STONES AND PERSISITENT R FLANK PAIN DESPITE U/S NEG FOR OBS STONES IN PAST 1. CKD 2: stable based on last SCr 2. Mult R Renal Cysts: still remains unclear if this represent acquired cystic kidney disease vs unilateral cystic kidney or truly PCKD....if there was a positive FHx or if the L kidney that was removed had evidence supportive of PCKD this would help 3. OH: resolved on midrdine; suspect psych meds may be playing a role; 4. H/O Kidney stones w cont hypocitruria, hypercalcuria 5. R back pain: suspect this is MSK and not from kidney stones...ques LPHS 6. HyperK: resolved 7. Complex renal cyst: needs contf/u urol PLAN: cont midrdine 5 mg qid; cont Kcitrate 10 meq bid; cont f/u with urol; as may need repeat CT to r/o active stone dis; avoid NSAIDs; 1. Renal stone 2. Chronic kidney disease, stage 2 (mild) Orders Placed This Encounter Renal Function Panel Urinalysis with microscopic Urine Albumin / Creatinine Ratio Protein, Total, Random Urine w/Creatinine (Protein/Creat Ratio) Return in about 9 months (around 06/01/2025). Alejandro Benz MD documented in this encounter Plan of Treatment Upcoming Encounters Date Type Department Care Team (Late st Contact Info) Description 06/02/2025 1:30 PM EST Office Visit [facility] [address] [place] [phone] Alejandro Benz MD [address] [facility] [address] [place] [address] Scheduled Orders Name Type Priority Associated Diagnoses Orde r Schedule Renal Function Panel Lab Routine Renal stone Chronic kidney disease, stage 2 (mild) Expected: 08/29/2024, Expires: 09/29/2025 Urinalysis with microscopic Lab Routine Renal stone Chronic kidney disease, stage 2 (mild) Expected: 08/29/2024, Expires: 09/29/2025 Urine Albumin / Creatinine Ratio Lab Routine Renal stone Chronic kidney disease, stage 2 (mild) Expected: 08/29/2024, Expires: 09/29/2025 Protein, Total, Random Urine w/Creatinine (Protein/Creat Ratio) Lab Routine Renal stone Chronic kidney disease, stage 2 (mild) Expected: 08/29/2024, Expires: 09/29/2025 documented as of this encounter Procedures Procedure Name Priority Date/Time Associated Diagnosis Comments ALT EXT LABS Routine 08/21/2024 documented in this encounter Results * ALT EXT LABS (08/21/2024) WBC [...] us Historical Provider LAB BLOOD ORDERABLES Josette l Result documented in this encounter Visit Diagnoses Diagnosis Renal stone- Primary Chronic kidney disease, stage 2 (mild) documented in this encounter Care Teams Oyster Grower Relationship Specialty Start Date End Date Hung Montelongo MD [address] [place] [address] PCP - General 05/11/20 documented as of this encounter
== END 2024-09-03 16:20 | disposition home or self-care (01) ==
LOC: HO.HWS 15:06
PROVIDERS: PCP Internal Medicine; Visit Provider Advanced Practice Midwife
DX: R35.0 Frequency of micturition (principal); Z71.2 Person consulting for explanation of examination or test findings
CPT/HCPCS: 99213

== ENCOUNTER 2024-09-04 13:44 | Outpatient (AMB) | payer OTHER, SELFPAY ==
--- NOTE | 2024-09-04 13:56 | A.OFFVIS_ITS ---
Vital Signs 3 09/04/24 13:57 Height 5 ft 3 in Weight 169 lb 12.095 oz BMI 30.1 BP 112/68 Blood Pressure Location Rt brachial Position Sitting Pulse 65 Pulse Source Pulse Oximeter Pulse Oximetry (%) 100 Oxygen Delivery Method Room Air Intake Visit Reasons: Biopsy f/u Intake Note: Patient present today for biopsy results. L Executive Director Of Marketing Required: Yes Executive Director Of Marketing Language: Orthotic/Prosthetic Clinician Services: Executive Director Of Marketing Offered & Declined Electric Organ Assembler And Checker: Electric Organ Assembler And Checker Present (Amber) Accompanied by: Daughter Allergies atorvastatin Adverse Reaction (Intermediate, Verified 09/03/24 15:08) elevated LFTs rosuvastatin Adverse Reaction (Intermediate, Verified 09/03/24 15:08) Elevated LFTs acetaminophen Adverse Reaction (Unknown, Verified 09/03/24 15:08) Unknown HPI Comments Details: 53-year-old female coming in today for follow up of thyroid nodules.Otherwise medical history significant for CKD stage 3, , hyperlipidemia, hx nephrectomy, hx gastric bypass around 2018, migraines, GERD, MIGUEL on CPAP anxiety, depression, schizophrenia. Seen today with son who is doing the interpretation . HPI Patient had a CT chest February 01, 2024 which pointed towards an enlarged left lobe of the thyroid. Patient had a head and neck CTA 02/04/2024 due to concerns for stroke, which incidentally showed multinodular thyroid gland. During hospitalisiztion diagnosed with PE , on elequis. 04/29/2024: Ultrasound of the thyroid, I reviewed the images myself which show a right superior 1.5 cm nodule, solid, hypoechoic, with a few cystic spaces, with some punctate echogenic foci, not taller than wide, this is a TR 5 nodule, per SYLVIA guidelines still high suspicion nodule with greater than 50% chance of malignancy. Another right superior 1.3 cm spongiform appearance nodule. Another right lower pole 0.9 cm solid, isoechoic nodule well-circumscribed with no punctate echogenic foci, this is a TR 4 nodule. Another right lower pole 0.6 cm thyroid nodule with spongiform appearance. On the left side is a left cystic lesion dominantly with a very minute solid component, 2.2 cm in size. A left lower pole 1.7 cm solid, hypoechoic nodule which is not taller than wide, well- circumscribed, has punctate echogenic foci, this is a TR 5 nodule. The right superior 1.5 cm TR 5 nodule and the left lower pole 1.7 cm TR 5 nodule both meet criteria for FNA. No diarrhea, reports constipation. Weight stable. Reports intermittent palpitaions. Patient currently denies heat or cold intolerance, hair loss, , mood changes, low energy, changes in appearance of eyes or vision changes, tremors, increased diaphoresis or dry skin. ? Patient denies any difficulty swallowing, pain on swallowing or voice changes or difficulty breathing. Does complain of mild pressure sensation on neck when she lays down flat. Patient denies any history of childhood neck radiation. Denies having ever used lithium, amiodarone or biotin supplements. Patient denies any family history of thyroid cancer or thyroid disease. 05/29/2024: Underwent FNA of the right superior 1.5 cm nodule and the left lower pole 1.7 cm nodule , both with nondiagnostic cytology unfortunately [place] category 1. Interval history When I reviewed the ultrasound images from my biopsy, the right superior 1.5 cm nodule that does not appear to have punctate echogenic foci, hence I would also agree with the ultrasound report that this is a TR 3 nodule. We decided to hold off on repeating the biopsy of this for now and we will keep an eye on this. 07/24/2024: Underwent repeat biopsy of the left inferior pole 1.7 cm nodule: This came back as AUS, [place] category 3, with cells arranged in a microfollicular pattern with oncocytic change, Afirma came back benign (4% risk of malignancy) Also underwent biopsy the left superior 2.2 cm nodule which came back as cyst fluid only consistent with the appearance of a cyst on the ultrasound. Physical exam General: sitting comfortably in no acute distress HEENT: normocephalic/atraumatic, moist oral mucosa Neck: supple, palpable B/l 1-2 cm nodules Cardiac: normal heart sounds Pulm: normal breath sounds B/L, no added breath sounds Abd: not distended, no tenderness Extremities: no edema, no signs of myxedema Laboratory Tests 02/20/24 03/18/24 16:33 12:49 TSH 1.03 0.95 US THYROID 04/29/24 CLINICAL INFORMATION: Nontoxic multinodular goiter. COMPARISON: CTA neck 01/22/2024. TECHNIQUE: Linear transducer grayscale and color Doppler examination with attention to the region of the thyroid. FINDINGS: SIZE: Measurements of the thyroid lobes and nodules are given in sagittal, anteroposterior and transverse dimensions respectively. Right Thyroid Lobe: 4.5 x 1.4 x 1.7 cm, volume 5.6 mL. Parenchyma: The gland echotexture is heterogeneous. Thyroid vascularity is increased. Left Thyroid Lobe: 4.2 x 1.5 x 1.8 cm, volume 6.2 mL. Parenchyma: The gland echotexture is heterogeneous. Thyroid vascularity is increased. Isthmus: 0.2 cm in maximum AP dimension. Estimated total number of nodules greater than or equal to 1 cm: 5. Mortgage Professional nodules are described as follows: 1. Location: Right upper pole. Size: 1.5 x 0.8 x 1.2 cm, volume 0.73 mL. Nodule characteristics: Composition: Solid/almost completely solid (2). Echogenicity: Isoechoic (1). Shape: Not taller than wide (0). Margins: Smooth (0). Echogenic Foci: None (0). ACR TI-RADS total points: 3 ACR TI-RADS category: 3 2. Location: Right upper pole. Size: 1.3 x 0.6 x 1.2 cm, volume 0.48 mL. Nodule characteristics: Composition: Solid/almost completely solid (2). Echogenicity: Isoechoic (1). Shape: Not taller than wide (0). Margins: Smooth (0). Echogenic Foci: None (0). ACR TI-RADS total points: 3 ACR TI-RADS category: 3 3. Location: Right lower pole. Size: 0.9 x 0.4 x 0.9 cm, volume 0.20 mL. Nodule characteristics: Composition: Solid (2). Echogenicity: Isoechoic (1). Shape: Not taller than wide (0). Margins: Smooth (0). Echogenic Foci: Punctate echogenic foci (3). ACR TI-RADS total points: 6 ACR TI-RADS category: 4 4. Location: Left upper pole. Size: 2.2 x 1.0 x 1.6 cm, volume 1.9 mL. Nodule characteristics: Composition: Mixed cystic and solid (1). Echogenicity: Very hypoechoic (3). Shape: Not taller than wide (0). Margins: Smooth (0). Echogenic Foci: Macrocalcifications (1). ACR TI-RADS total points: 5 ACR TI-RADS category: 4 5. Location: Left lower pole. Size: 1.7 x 1.4 x 1.6 cm, volume 2.0 mL. Nodule characteristics: Composition: Solid (2). Echogenicity: Isoechoic (1). Shape: Not taller than wide (0). Margins: Smooth (0). Echogenic Foci: Punctate echogenic foci (3). ACR TI-RADS total points: 6 ACR TI-RADS category: 4 NODES: No lymphadenopathy is seen in the tissue surrounding the thyroid gland. US/US thyroid IMPRESSION: 2.2 cm LEFT upper TR 4 thyroid nodule and 1.7 cm LEFT lower TR 4 thyroid nodule meet criteria for biopsy. Fine-needle aspiration recommended. This study was presented to me on May 06, 2023 for interpretation. PSA staff will provide results to referring provider at this time. ACR TI-RADS RECOMMENDATION REFERENCE: Ultrasound-guided fine-needle aspiration, followup ultrasound, no further follow up. * TR1 (0 point) and TR2 (2 points): No FNA or follow up. * TR3 (3 points): FNA if more than or equal to 2.5 cm in maximum dimension, followup ultrasound in 1, 3 and 5 years if 1.5 to 2.4 cm in maximum dimension. * TR4 (4-6 points): FNA if more than or equal to 1.5 cm in maximum dimension, followup ultrasound in 1, 2, 3 and 5 years if 1 to 1.4 cm in maximum dimension. * TR5 (more than or equal to 7 points): FNA if more than or equal to 1 cm in maximum dimension, followup ultrasound every year for 5 years if 0.5 to 0.9 cm in maximum dimension. * TR3, TR4 or TR5 nodules that are below the size threshold for followup receive no follow up. Electronically signed by: Suad Marmolejo MD 05/06/2024 08:10 AM [facility] [place] [place] CT angio head neck stroke January 2024 CLINICAL INFORMATION: Left-sided weakness. COMPARISON: CT head 02/04/2024. CT angiogram head and neck 01/22/2024. TECHNIQUE: Weapons Designer images were obtained. A CT angiogram of the head and neck was performed in the arterial phase after the intravenous administration of 70 mL Omnipaque 350. Pre and delayed postcontrast images of the head were also obtained. 3D images were processed on an independent workstation under concurrent supervision. Arterial stenoses are measured in accordance with NASCET criteria or similar method if applicable. This CT examination was performed using dose optimization techniques as appropriate, including one or more of the following: Automated exposure control, iterative reconstruction, and adjustment of technique factors (mA and/or kVp) according to patient size (this includes techniques or standardized protocols for targeted exams where dose is matched to indication/reason for exam). Fleischner Society criteria for the followup of incidental pulmonary nodules was implemented if appropriate. Total exam dose-length product 1408 mGy-cm FINDINGS: Head: There is a tiny developmental venous anomaly traversing the left frontal lobe. Postcontrast images reveal no abnormal intracranial mass or enhancement. There is no intracranial mass effect or midline shift. Lateral and third ventricles are normal. No hydrocephalus. Mckeon-white matter differentiation is preserved and there is no evidence of acute territorial infarct. The calvarium and skull base are intact. No mastoid or middle ear effusion. No active paranasal sinus disease. CT angiogram neck: There is an aberrant right subclavian artery. Origins of the major aortic branches are otherwise patent. Common carotid arteries are normal and the carotid bifurcations are normal. No stenosis of the extracranial internal carotid arteries. The cervical segments of the vertebral arteries are widely patent. CT angiogram head: The intracranial internal carotid arteries are normal. The intradural vertebral artery segments and basilar artery are normal. Anterior, middle, and posterior cerebral artery complexes are normal. No intracranial large vessel occlusion. No identifiable aneurysm or high flow vascular lesion. Other: There is a multinodular thyroid gland. Soft tissues of the neck are otherwise unremarkable. Grossly no pathologically enlarged cervical lymph nodes. Visualized lung apices are clear. No acute osseous finding. CT/CT angio head neck stroke IMPRESSION: Unremarkable examination in that there is no stenosis of the cervical carotid or vertebral arteries. No intracranial large vessel occlusion. No evidence of acute territorial infarct or hemorrhage. No abnormal intracranial mass or enhancement. This critical result was discussed with Dr. Obregon at 3:02 PM on 02/04/2024 and it was ascertained that the content and urgency of the report was understood at the time of direct communication. Electronically signed by: Vincenzo Brizuela MD 02/04/2024 03:[address] ANGIOGRAM OF THE CHEST WITH AND WITHOUT CONTRAST (CT PULMONARY ANGIOGRAM FOR PE) January 2024 CLINICAL INFORMATION: Chest pain. COMPARISON: CT chest performed earlier at 8:53 AM. TECHNIQUE: Prior to contrast administration, noncontrast localization images were obtained. Subsequently, multidetector volumetric imaging was performed of the chest following the administration of 65 mL Omnipaque 350 intravenous contrast. No contrast reaction reported Sagittal, coronal, and MIP oblique sagittal (through the chest only) reformatted images were obtained on the CT workstation, uploaded to PACS, and reviewed. Total exam dose-length product 327 mGy-cm This CT examination was performed using dose optimization techniques as appropriate, variously including the following: *Automated exposure control *Adjustment of mA and/or kV according to patient size (this includes techniques or standardized protocols for targeted exams where dose is matched to indication/reason for exam; i.e. extremities or head) *Use of iterative reconstruction technique FINDINGS: QUALITY OF STUDY/CONTRAST BOLUS: Suboptimal. PULMONARY ARTERIES: Limited evaluation secondary to motion. Pulmonary emboli are noted in the right main pulmonary artery and segmental branches of the right lower lobe. THORACIC AORTA: Aberrant right subclavian artery. Normal caliber of the thoracic aorta. LUNG: Limited evaluation due to respiratory motion. Low lung volumes. Increased mosaic attenuation of lung parenchyma compared to earlier today. No dense consolidation. Central airways are patent. Pulmonary nodules are better visualized on the CT chest from earlier today in view of the limitations of motion of the current study, please refer to the prior examination for management recommendations. PLEURA: No pleural effusion or pneumothorax. MEDIASTINUM: Normal heart size. No pericardial effusion. No evidence of septal bowing. No mediastinal or hilar lymphadenopathy. Asymmetric enlargement of the left lobe of the thyroid along with mild heterogeneity. CHEST WALL/AXILLA: Simple fluid attenuating 0.9 cm nodule in the right breast (6:235). No axillary lymphadenopathy. UPPER ABDOMEN: Mild reflux of contrast into the hepatic veins. Partially seen postsurgical changes from gastric bypass. Cholecystectomy. OSSEOUS STRUCTURES: No acute or suspicious osseous abnormality. CT/CT angio chest PE protocol IMPRESSION: 1. Pulmonary emboli in the right main pulmonary artery and segmental branches of the right lower lobe. 2. Mild reflux of contrast into the hepatic veins that could indicate elevated right-sided heart pressures. 3. Increased mosaic attenuation of the lung parenchyma compared to earlier today which could be related with air trapping in the setting of small airways disease. 4. Pulmonary nodules are better visualized on the CT chest from earlier today in view of the limitations of motion of the current study, please refer to the prior examination for management recommendations. 5. Simple fluid attenuating 0.9 cm nodule in the right breast, possibly a cyst. Recommend correlation with recent priors dedicated breast imaging and if the patient is due further evaluation with outpatient dedicated breast imaging. 6. Asymmetric enlargement of the left lobe of the thyroid with mild heterogeneity. Recommend further evaluation with outpatient thyroid ultrasound. VTE: positive. This critical result was discussed with Dr. Simms at 02/01/2024 7:27 PM CDT and it was ascertained that the content and urgency of the report was understood at the time of direct communication. Electronically signed by: Ivory Titus MD 02/01/2024 08:27 PM EDT [facility] Medical History Pure hypercholesterolemia Left breast mass Pulmonary nodules Chronic kidney disease, stage III (moderate) Obesity (BMI 30-39.9) Renal cyst Diverticulosis Tubular adenoma Asthma Spondylosis of lumbar spine Sacroiliitis Dizziness of unknown etiology Chronic constipation Hx of schizophrenia Panic attacks PTSD (post-traumatic stress disorder) Dyspareunia Pyelonephritis Ingrown toenail Iron deficiency anemia Major depression, recurrent Anxiety Insomnia Tremor Orthostatic hypotension Incisional hernia without obstruction or gangrene Avascular necrosis of femoral head Bilateral carpal tunnel syndrome Peroneal neuropathy Lumbar degenerative disc disease Vitamin D deficiency GERD (gastroesophageal reflux disease) Migraine Hyperlipidemia Surgical History History of left nephrectomy (~1999) History of colonoscopy History of surgery Hx of cystoscopy History of bilateral breast reduction surgery History of hysterectomy History of cholecystectomy History of endoscopy (~06/2016) History of bladder repair surgery (~03/2015) S/P cystoscopy (~07/30/12) S/P panniculectomy History of hernia repair (~03/29/10) History of bladder surgery (~10/2009) History of gastric bypass (~2008) History of incisional hernia repair (~1999) Hx of umbilical hernia repair (~1999) H/O left nephrectomy S/P laparoscopic sleeve gastrectomy Family History Father Liver cancer Mother Breast cancer Sister Lung cancer Other Mental health problem Social History Household Members: Family Housing: House Do you presently have visiting nurse or other home services: No Alcohol intake: never Patient Tobacco Use Status: Never used Tobacco e-Cigarette/Vaping Use: Never Used Second Hand Smoke Exposure: No Advance Directives Date on File: 07/12/21 service: No Current occupational status: disabled Sexual orientation: Straight/Heterosexual Gender identity: Female Cognitive needs: No Hearing needs: No Vision needs: Yes Female Reproductive History Menstrual Age of Menarche: 13 Physical Exam Vital Signs: BMI result Body Mass Index 30.1 Assessment & Plan Assessment & Plan (1) Multiple thyroid nodules: Code(s): E04.2 - Nontoxic multinodular goiter Category: Medical Plan: 53-year-old female with no past medical history of head or neck radiation with no family history of thyroid cancer, who is coming in today for follow up for multinodular goiter. During January 2024 she was hospitalized for PE, underwent CTA chest/neck which showed multinodular goiter. 04/29/2024: Ultrasound of the thyroid, I reviewed the images myself which show a right superior 1.5 cm nodule, solid, isoechoic, with a few cystic spaces, with some punctate echogenic foci, not taller than wide, this is a TR 5 nodule, per SYLVIA guidelines still high suspicion nodule with greater than 50% chance of malignancy. Another right superior 1.3 cm spongiform appearance nodule. Another right lower pole 0.9 cm solid, isoechoic nodule well-circumscribed with no punctate echogenic foci, this is a TR 4 nodule. Another right lower pole 0.6 cm thyroid nodule with spongiform appearance. On the left side is a left cystic lesion dominantly with a very minute solid component, 2.2 cm in size. A left lower pole 1.7 cm solid, hypoechoic nodule which is not taller than wide, well- circumscribed, has punctate echogenic foci, this is a TR 5 nodule. 05/29/2024: Underwent FNA of the right superior 1.5 cm nodule and the left lower pole 1.7 cm nodule , both with nondiagnostic cytology unfortunately [place] category 1. When I reviewed the ultrasound images from my biopsy, the right superior 1.5 cm nodule that does not appear to have punctate echogenic foci, hence I would also agree with the ultrasound report that this is a TR 3 nodule. We decided to hold off on repeating the biopsy of this for now and we will keep an eye on this. 07/24/2024: Underwent repeat biopsy of the left inferior pole 1.7 cm nodule: This came back as AUS, [place] category 3, with cells arranged in a microfollicular pattern with oncocytic change, Afirma came back benign (4% risk of malignancy) Also underwent biopsy the left superior 2.2 cm nodule which came back as cyst fluid only consistent with the appearance of a cyst on the ultrasound. At this point we will plan to repeat an ultrasound of the thyroid in 1 year and follow up after. Plan: -scheduled for ultrasound of the thyroid in July 2025 with follow up in August 2025 -TSH with reflex free T4 ordered to be done prior to follow up in 1 year Plan See above Orders: Orders 2 US thyroid 08/18/25 E04.2 - Nontoxic multinodular goiter Thyroid Stimulating Hormone 1 Year E04.2 - Nontoxic multinodular goiter Free T4 (Free Thyroxine) 1 Year E04.2 - Nontoxic multinodular goiter Patient Instructions: Do ultrasound of the thyroid in July 2025, someone will call you to schedule this Do blood work a week before you next appt in 1 year Follow up in 1 year Coding Level of Care Code Est Pt Level 3 (07280) Diagnoses Multiple thyroid nodules E04.2
[2024-09-04 13:57] VITALS: BP 112/68; PULSE 65; O2SAT 100; BMI 30.1
--- OUTSIDE RECORDS SUMMARY | 2024-09-04 15:02 | XMS_ITS | Encounter Summary ---
Author Organization [employer] Address [address] [place] [address] Care Team Providers Care Program Proposals Coordinator Name Role Phone Unavailable Primary Care Provider Unavailabl e Encounter Details Date Type Department Care Team (Latest Contact Info) Description 11/30/2020 Abstract [facility] CONVERSIONS Dental, Provider, DDS Social History [...] 1:00 PM EDT Office Visit [facility] ADULT DENTAL [address] [place] [address] Leatha Centeno documented as of this encounter Visit Diagnoses Not on filedocumented in this encounter
--- OUTSIDE RECORDS SUMMARY | 2024-09-04 15:02 | XMS_ITS | Encounter Summary ---
Author Organization [employer] Address [address] [place] [address] Care Team Providers Care Source Water Protection Specialist Name Role Phone Unavailable Primary Care Provider Unavailabl e Encounter Details Date Type Department Care Team (Latest Contact Info) Description 01/20/2022 Abstract [facility] CONVERSIONS Dental, Provider, DDS Social [...] 11/20/2024 1:00 PM EDT Office Visit [facility] ADULT DENTAL [address] [place] [address] Leatha Centeno documented as of this encounter Visit Diagnoses Not on filedocumented in this encounter
--- OUTSIDE RECORDS SUMMARY | 2024-09-04 15:02 | XMS_ITS | Clinical Summary ---
Author Organization [facility] Address [address] [place] [address] Care Team Providers Care Speed Belt Sander Tender Name Role Phone Hung Montelongo MD Primary Care Provider +1- [phone] Allergies Active Allergy Reactions Criticality Noted Date [...] Visit [facility] [address] [place], [place] [address] Alejandro Benz [...] Visit [facility] [address] [place] [address] Alejandro Benz MD [address] [facility] [address] [place] [phone] Health Maintenance Due Date Last Done Comments [...] ahmadi Result from Last 3 Months Insurance [facility] Medicaid Care Teams Speed Belt Sander Tender Relationship Specialty Start Date End Date Hung Montelongo MD [address] [place] [id number] PCP - General 05/11/20
--- OUTSIDE RECORDS SUMMARY | 2024-09-04 15:02 | XMS_ITS | Clinical Summary ---
Author Organization [employer] Address [address] [facility] 7t [place] [address] Care Team Providers Care Wearing Apparel Assembler Name Role Phone Unavailable Primary Care [...] Description 11/20/2024 1:00 PM EDT Office Visit [facility] ADULT DENTAL [address] [place] [address] Leatha Centeno Health Maintenance Due Date Last [...] Most Recently [place] [id number] [facility]AL-[facility] MEDICAID STAND ADULT
== END 2024-09-04 14:13 | disposition home or self-care (01) ==
LOC: HO.ENCR 13:45
PROVIDERS: PCP Internal Medicine; Visit Provider Student in an Organized Health Care Education/Training Program
DX: E04.2 Nontoxic multinodular goiter (principal)
CPT/HCPCS: 99213

== ENCOUNTER → 2024-09-04 13:44 | Outpatient (BNVA) | payer OTHER, SELFPAY | PROVIDERS: PCP Internal Medicine; Visit Provider Student in an Organized Health Care Education/Training Program | DX: E04.2 Nontoxic multinodular goiter (principal); E78.5 Hyperlipidemia, unspecified; N18.30 Chronic kidney disease, stage 3 unspecified | CPT/HCPCS: 99212 ==

== ENCOUNTER 2024-09-13 09:07 | Outpatient (AMB) | payer OTHER, SELFPAY ==
--- OUTSIDE RECORDS SUMMARY | 2024-09-13 09:20 | XMS_ITS | Clinical Summary ---
Author Organization [facility] Address [address] [address] Phone Care Team Providers Care Adjunct Physical Education Instructor Name Role Phone Hung Montelongo MD Primary Care Provider +1- [phone] Allergies Active Allergy Reactions Criticality Noted Date [...] Visit [facility] [address] [place], [place] [phone] Alejandro Benz MD Renal stone (Primary Dx); [...] Visit [facility] [address] [facility] [place] [address] Alejandro Benz MD [address] [facility] [address] [place] [address] Health Maintenance Due Date Last [...] l Result from Last 3 Months Insurance [facility] Medicaid Care Teams Adjunct Physical Education Instructor Relationship Specialty Start Date End Date Hung Montelongo MD [address] [place] [id number] PCP - General 05/11/20
--- NOTE | 2024-09-13 09:27 | MHC.OFFWIV ---
Intake Vital Signs 09/13/24 09:29 Weight 171 lb BP 120/82 Blood Pressure Location Rt brachial Position Sitting Pulse 60 Pulse Source Pulse Oximeter Pulse Oximetry (%) 98 Oxygen Delivery Method Room Air Intake Visit Reasons: EP Red & swollen RT eye Intake Note: Patient here for right eye redness and swelling that has been present for about 3 days. Patient Tobacco Use Status: Never used Tobacco Chief Nurse Anesthetist Required: Yes Information Interpreted: non-clinical & clinical Allergies atorvastatin Adverse Reaction (Intermediate, Verified 09/13/24 10:41) elevated LFTs rosuvastatin Adverse Reaction (Intermediate, Verified 09/13/24 10:41) Elevated LFTs acetaminophen Adverse Reaction (Unknown, Verified 09/13/24 10:41) Unknown Medication List - Last Reconciled 09/13/24 by Dayday Turner MD albuterol sulfate 90 mcg/actuation (Ventolin HFA) 2 puffs inhalation Q6H PRN 30 days apixaban (Eliquis) 5 mg PO BID 30 days bisacodyl (Dulcolax (bisacodyl)) 10 mg (2 x 5 mg) PO BEDTIME blood pressure monitor As directed cholecalciferol (vitamin D3) (Vitamin D3) 25 mcg PO DAILY 90 days [CPAP device and all related supplies As directed] docusate sodium 100 mg PO DAILY famotidine (Pepcid) 20 mg PO BEDTIME furosemide 20 mg PO QAM PRN gabapentin 800 mg PO TID 30 days linaclotide (Linzess) 145 mcg PO DAILY lorazepam 1 mg PO BID PRN 30 days meclizine 25 mg PO TID PRN 30 days melatonin 10 mg (2 x 5 mg) PO BEDTIME PRN 30 days midodrine 10 mg PO TID 30 days pantoprazole 40 mg PO QAM topiramate mg PO DAILY tramadol 100 mg (2 x 50 mg) PO Q8H PRN 30 days verapamil mg PO Do you need a note to return to daycare/school/sports/work: No HPI EP Red & swollen RT eye HPI Details Patient is a 53-year-old female came in today to be evaluated for swelling and pain right eye Which started 3 days ago Patient says that it started suddenly 1 day when she was visiting her friend There is no itching but there is a discharge from the eye There is no headache no fever no chills no sore throat On examination her right eye is swollen all the way down to her cheek Upon opening patient is feeling pain there is a discharge as well Since we are not able to examine the eye properly Patient was instructed to go to emergency room for immediate evaluation and care Two which she agreed [facility] Medical History Pure hypercholesterolemia Left breast mass Pulmonary nodules Chronic kidney disease, stage III (moderate) Obesity (BMI 30-39.9) Renal cyst Diverticulosis Tubular adenoma Asthma Spondylosis of lumbar spine Sacroiliitis Dizziness of unknown etiology Chronic constipation Hx of schizophrenia Panic attacks PTSD (post-traumatic stress disorder) Dyspareunia Pyelonephritis Ingrown toenail Iron deficiency anemia Major depression, recurrent Anxiety Insomnia Tremor Orthostatic hypotension Incisional hernia without obstruction or gangrene Avascular necrosis of femoral head Bilateral carpal tunnel syndrome Peroneal neuropathy Lumbar degenerative disc disease Vitamin D deficiency GERD (gastroesophageal reflux disease) Migraine Hyperlipidemia Surgical History History of left nephrectomy (~1999) History of colonoscopy History of surgery Hx of cystoscopy History of bilateral breast reduction surgery History of hysterectomy History of cholecystectomy History of endoscopy (~06/2016) History of bladder repair surgery (~03/2015) S/P cystoscopy (~07/30/12) S/P panniculectomy History of hernia repair (~03/29/10) History of bladder surgery (~10/2009) History of gastric bypass (~2008) History of incisional hernia repair (~1999) Hx of umbilical hernia repair (~1999) H/O left nephrectomy S/P laparoscopic sleeve gastrectomy Family History Father Liver cancer Mother Breast cancer Sister Lung cancer Other Mental health problem Social History Household Members: Family Housing: House Do you presently have visiting nurse or other home services: No Alcohol intake: never Patient Tobacco Use Status: Never used Tobacco e-Cigarette/Vaping Use: Never Used Second Hand Smoke Exposure: No Advance Directives Date on File: 07/12/21 Do you have a plan to hurt others: No Plan service: No Current occupational status: disabled Sexual orientation: Straight/Heterosexual Gender identity: Female Cognitive needs: No Hearing needs: No Vision needs: Yes Female Reproductive History Menstrual Age of Menarche: 13 Review of Systems Const All systems reviewed & are unremarkable except as noted in HPI and below Physical Exam Vital Signs: Last Vital Signs Pulse 60 09/13/24 09:29 BP 120/82 09/13/24 09:29 Pulse Ox 98 09/13/24 09:29 Oxygen Delivery Method Room Air 09/13/24 09:29 Const General: no acute distress Orientation/consciousness: patient oriented x3 Eyes Eyes/upper lids images: 1. Swollen and shut, trying to open the eye causes pain and there is a discharge Resp Effort & Inspection: normal respiratory effort and able to speak in complete sentences Neuro General: patient oriented x3 Psych Mental Status: mental status grossly normal Assessment & Plan Assessment & Plan (1) Periorbital cellulitis of right eye: Code(s): L03.213 - Periorbital cellulitis Plan Patient is a 53-year-old female came in today to be evaluated for swelling and pain right eye Which started 3 days ago Patient says that it started suddenly 1 day when she was visiting her friend There is no itching but there is a discharge from the eye There is no headache no fever no chills no sore throat On examination her right eye is swollen all the way down to her cheek Upon opening patient is feeling pain there is a discharge as well Since we are not able to examine the eye properly Patient was instructed to go to emergency room for immediate evaluation and care Two which she agreed Coding Level of Care Code Est Pt Level 4 (73898) Diagnoses Periorbital cellulitis of right eye L03.213
[2024-09-13 09:29] VITALS: BP 120/82; PULSE 60; O2SAT 98
== END 2024-09-13 09:56 | disposition home or self-care (01) ==
PROVIDERS: PCP Internal Medicine; Visit Provider Internal Medicine
DX: L03.213 Periorbital cellulitis (principal)

== ENCOUNTER → 2024-09-13 09:07 | Outpatient (BNVA) | payer OTHER, SELFPAY | PROVIDERS: PCP Internal Medicine; Visit Provider Internal Medicine | DX: L03.213 Periorbital cellulitis (principal) | CPT/HCPCS: 99212 ==

== ENCOUNTER 2024-09-13 10:00 | Emergency (ER) | payer OTHER, SELFPAY ==
[2024-09-13 10:41] VITALS: BP 122/59; PULSE 58; RESP 18; TEMP 37; O2SAT 98; BMI 30.5
--- OUTSIDE RECORDS SUMMARY | 2024-09-13 12:49 | XMS_ITS | Encounter Summary ---
Author Organization [employer] Address [address] [facility] 7t [place] [address] Care Team Providers Care Telephone Betting Clerk Name Role Phone Unavailable Primary Care Provider Unavailabl e Encounter Details Date Type Department Care Team (Latest Contact Info) Description 01/20/2022 Abstract [facility] CONVERSIONS Dental, Provider, DDS Social History [...] Description 11/20/2024 1:00 PM EDT Office Visit [facility] ADULT DENTAL [address] [place] [address] Leatha Centeno documented as of this encounter Visit Diagnoses Not on filedocumented in this encounter
--- OUTSIDE RECORDS SUMMARY | 2024-09-13 12:49 | XMS_ITS | Clinical Summary ---
Author Organization [facility] Address [address] [address] Phone Care Team Providers Care Power Hammer Operator Name Role Phone Hung Montelongo MD Primary Care Provider +1- [phone] Allergies Active Allergy Reactions Criticality Noted Date [...] Visit [facility] [address] [place], [place] [phone] Alejandro Benz MD Renal stone (Primary Dx); [...] Visit [facility] [address] [facility] [place] [address] Alejandro Benz MD [address] [facility] [address] [place] [address] Health Maintenance Due Date Last [...] [facility] Medicaid Care Teams Power Hammer Operator Relationship Specialty Start Date End Date Hung Montelongo MD [address] [place] [id number] PCP - General 05/11/20
--- OUTSIDE RECORDS SUMMARY | 2024-09-13 12:49 | XMS_ITS | Encounter Summary ---
Author Organization [employer] Address [address] [facility] 7t [place] [address] Care Team Providers Care Contact Center Representative Name Role Phone Unavailable Primary Care Provider Unavailabl e Encounter Details Date Type Department Care Team (Latest Contact Info) Description 11/30/2020 Abstract [facility] CONVERSIONS Dental, Provider, DDS Social History [...] 11/20/2024 1:00 PM EDT Office Visit [facility] ADULT DENTAL [address] [place] [address] Leatha Centeno documented as of this encounter Visit Diagnoses Not on filedocumented in this encounter
--- OUTSIDE RECORDS SUMMARY | 2024-09-13 12:49 | XMS_ITS | Clinical Summary ---
Author Organization [employer] Address [address] [facility] 7t [place] [address] Care Team Providers Care Technical Artist Name Role Phone Unavailable Primary Care Provider [...] 1:00 PM EDT Office Visit [facility] ADULT D[facility] [address] [place] [address] Leatha Centeno Health Maintenance Due Date Last [...] patient's age to complete this topic Meningococcal B Vaccine Aged Out No l onger eligible based on patient's age to complete [...] Most Recently Relevant to Health Maintenance Insurance [facility] MEDICAID STAND ADULT
--- NOTE | 2024-09-13 12:53 | ED_ITS ---
HPI - Eye Problem General Chief complaint: Eye Problems Stated complaint: R Eye Swelling Time Seen by Provider: 09/13/24 12:37 Source: patient, RN notes reviewed, old records reviewed and tape recorder mechanic Mode of arrival: ambulatory Limitations: no limitations History of Present Illness ED Provider: Aston HPI Narrative: Patient is a 53-year-old [place]uran speaking female presenting with complaint of right eye redness and swelling for 3 days with some yellow drainage. Denies changes in vision, denies fevers. Denies pain with eye movements. Denies recent URI symptoms. Does not wear contact lenses. chief complaint: eye redness Onset (ago): day(s) Onset description: gradual Eye Symptoms: redness and discharge Related Data Home Medications ?Medication ?Instructions ?Recorded ?Confirmed topiramate 25 mg tablet mg PO DAILY 06/18/24 09/13/24 verapamil 40 mg tablet mg PO 07/15/24 09/13/24 Previous Rx's ?Medication ?Instructions ?Recorded CPAP device and all related #1 ea 06/03/22 supplies bisacodyl 5 mg tablet,delayed 10 mg (2 x 5 mg) PO BEDTIME #180 08/30/23 release (Dulcolax (bisacodyl)) tabs cholecalciferol (vitamin D3) 25 25 mcg PO DAILY 90 days #90 caps 09/27/23 mcg (1,000 unit) capsule (Vitamin D3) albuterol sulfate 90 mcg/actuation 2 puff inhalation Q6H PRN wheezing 02/29/24 aerosol inhaler (Ventolin HFA) 30 days #6.7 grams lorazepam 1 mg tablet 1 mg PO BID PRN Anxiety 30 days 02/29/24 #60 tabs melatonin 5 mg tablet 10 mg (2 x 5 mg) PO BEDTIME PRN 02/29/24 Insomnia 30 days #60 tabs blood pressure monitor #1 ea 03/15/24 docusate sodium 100 mg capsule 100 mg PO DAILY #90 caps 04/15/24 apixaban 5 mg tablet (Eliquis) 5 mg PO BID 30 days #60 tabs 05/15/24 famotidine 20 mg tablet (Pepcid) 20 mg PO BEDTIME #30 tabs 06/18/24 linaclotide 145 mcg capsule 145 mcg PO DAILY #30 caps 06/18/24 (Linzess) meclizine 25 mg tablet 25 mg PO TID PRN dizziness 30 days 08/03/24 #90 tabs gabapentin 800 mg tablet 800 mg PO TID 30 days #90 tabs 08/19/24 midodrine 10 mg tablet 10 mg PO TID 30 days #90 tabs 08/19/24 tramadol 50 mg tablet 100 mg (2 x 50 mg) PO Q8H PRN 08/20/24 severe pain 30 days #60 tabs furosemide 20 mg tablet 20 mg PO QAM PRN severe edema #30 08/21/24 tabs pantoprazole 40 mg tablet,delayed 40 mg PO QAM #90 tabs 08/28/24 release amoxicillin 875 mg-potassium 1 tab PO BID #14 tabs 09/13/24 clavulanate 125 mg tablet erythromycin 5 mg/gram (0.5 %) eye 0.5 inch ophthalmic (eye) BID 5 09/13/24 ointment days #3.5 grams sulfamethoxazole 800 1 tab PO BID #14 tabs 09/13/24 mg-trimethoprim 160 mg tablet (Bactrim DS) Allergies Allergy/AdvReac Type Severity Reaction Status Date / Time atorvastatin AdvReac Intermediate elevated Verified 09/13/24 10:41 LFTs rosuvastatin AdvReac Intermediate Elevated Verified 09/13/24 10:41 LFTs acetaminophen AdvReac Unknown Unknown Verified 09/13/24 10:41 Review of Systems Review of Systems: As per HPI Yes all other systems are reviewed and are negative Constitutional: Constitutional: Reports as per HPI PMFSH Past Medical History Medical History Pure hypercholesterolemia Left breast mass Pulmonary nodules Chronic kidney disease, stage III (moderate) Obesity (BMI 30-39.9) Renal cyst Diverticulosis Tubular adenoma Asthma Spondylosis of lumbar spine Sacroiliitis Dizziness of unknown etiology Chronic constipation Hx of schizophrenia Panic attacks PTSD (post-traumatic stress disorder) Dyspareunia Pyelonephritis Ingrown toenail Iron deficiency anemia Major depression, recurrent Anxiety Insomnia Tremor Orthostatic hypotension Incisional hernia without obstruction or gangrene Avascular necrosis of femoral head Bilateral carpal tunnel syndrome Peroneal neuropathy Lumbar degenerative disc disease Vitamin D deficiency GERD (gastroesophageal reflux disease) Migraine Hyperlipidemia Surgical History History of left nephrectomy (~1999) History of colonoscopy History of surgery Hx of cystoscopy History of bilateral breast reduction surgery History of hysterectomy History of cholecystectomy History of endoscopy (~06/2016) History of bladder repair surgery (~03/2015) S/P cystoscopy (~07/30/12) S/P panniculectomy History of hernia repair (~03/29/10) History of bladder surgery (~10/2009) History of gastric bypass (~2008) History of incisional hernia repair (~1999) Hx of umbilical hernia repair (~1999) H/O left nephrectomy S/P laparoscopic sleeve gastrectomy Family History Family History Father Liver cancer Mother Breast cancer Sister Lung cancer Other Mental health problem Social History Social History Household Members: Family Housing: House Do you presently have visiting nurse or other home services: No Alcohol intake: never Patient Tobacco Use Status: Never used Tobacco Smoked in Last 30 Days: No e-Cigarette/Vaping Use: Never Used Second Hand Smoke Exposure: No Use of substances other than those prescribed or required for medical reasons: No Advance Directives: Yes Advance Directives on File: Yes Advance Directives Date on File: 07/12/21 Do you have a plan to hurt others: No Plan Patient : No service: No Current occupational status: disabled Sexual orientation: Straight/Heterosexual Gender identity: Female Cognitive needs: No Hearing needs: No Vision needs: Yes Physical Exam Vital Signs: Vital Signs: Last Vital Signs Temp 98.6 F 09/13/24 10:41 Pulse 58 09/13/24 10:41 Resp 18 09/13/24 10:41 BP 122/59 L 09/13/24 10:41 Pulse Ox 98 09/13/24 10:41 O2 Del Method Room Air 09/13/24 10:41 BMI result Body Mass Index 30.5 Vital signs have been reviewed and appear to be correct. Blood pressure normal. Heart rate normal. Respiratory rate normal. Temperature normal. Oxygen saturation normal. Const: General: cooperative, healthy appearing and no acute distress Orientation/consciousness: oriented to person, oriented to place, oriented to time and patient oriented x3 Limitations: no limitations HEENT: Head: Yes normocephalic and Yes atraumatic Ears: external ears normal General nose exam: Normal external nose present Face and sinus: Yes face symmetric Mouth: oropharynx normal and moist mucous membranes Throat: Yes uvula midline Eyes: Visual Baker: normal visual baker by confrontation Alignment and P osition: alignment normal and position normal Periorbital: periorbital findings abnormal right periorbital swelling and periorbital erythema Eyeli ds: Yes eyelid abnormality (hordeolum right upper eyelid, externa) Conjunctivae: conjunctival abnormal right conjunctival injection diffuse Sclerae: sclerae normal Corneas: corneas normal and fluorescein used Pupils: Equal, round and reactive pupils present EOM: EOMs intact bilaterally (without pain) Neck: Neck: Yes normal visual inspection and Yes supple Resp: Effort & Inspection: normal respiratory effort and able to speak in complete sentences Auscultation: clear to auscultation bilaterally Cardio: Rate: regular rate Rhythm: regular rhythm Heart sounds: S1 normal heart sound present and S2 normal heart sound present Skin: General skin exam: elasticity normal and turgor normal Neuro: General: oriented to person, oriented to place, oriented to time, patient oriented x3, moves all extremities, no focal motor deficits and CN's II- XI intact bilaterally Cranial nerves: Yes Equal, round and reactive pupils present Cognition (Neuro): normal cognition Extrem: General: Yes full ROM, Yes no pedal edema and Yes no calf tenderness Psych: Mental Status: mental status grossly normal Affect: normal affect Thought process: Normal thought process present Medical Decision Making Medical Decision Making [facility] Narrative: Patient is a 53-year-old [place] speaking female presenting with complaint of right eye redness and swelling for 3 days with some yellow drainage. On exam patient is awake, A+Ox3, VS WNL, afebrile, normal neurological exam without focal deficits, physical exam findings as above. Given reported symptoms and physical exam findings, initial differential includes but is not limited to hordeoloum, preseptal cellulitis, conjunctivitis. Do not suspect orbital cellulitis. Will treat with bactrim and augmentin. Advised patient to apply warm compresses, discussed using good hand hygeine. Recommended close follow up with ophthalmology. Strict return precautions discussed. Patient verbalized understanding of and agreement with plan. In-person assembly line inspector was utilized for all interactions, assessments, and discussions. Differential Diagnosis Differential Diagnoses: The differential diagnosis associated with the presentation includes As per [facility] Admission/Observation Consideration of admission/observation: Escalation of care including admission/observation considered Patient would have been admitted to the hospital had their work up had any findings where hospital admission was appropriate and their clinical presentation warranted hospital admission. External Record Review External record reviewed: Inpatient record, Office record and Outpatient record Prescription Management I considered prescription management with: Antibiotic Discharge Plan Discharge Clinical Impression: Preseptal cellulitis of right eye, Hordeolum externum of right upper eyelid Patient Disposition: Home, Self-Care Instructions: Stye (ED), Periorbital Cellulitis (ED) Additional Instructions: You are being treated for an infection of the skin around your eye with two different antibiotics. Complete the full course of both medications even if your symptoms improve. You can apply warm compresses several times per day. You should wash your hands with soap and warm water before and after touching your eye. Follow up with the broadcaster. Return to the ED if you develop worsening swelling, increasing pain, pain with eye movements, fever, vision changes, or any other new or concerning symptoms. Take your antibiotic as prescribed until it is complete. Even if your symptoms start to resolve, you must complete the antibiotic course. Hoxie el antibi?andres seg?n lo prescrito hasta completarlo. Aunque los s?ntomas empiecen a mejorar, debe completar el tratamiento antibi?andres. Prescriptions: New sulfamethoxazole-trimethoprim [Bactrim DS] 800-160 mg tablet 1 tab PO BID Qty: 14 0RF amoxicillin-pot clavulanate 875-125 mg tablet 1 tab PO BID Qty: 14 0RF erythromycin 5 mg/gram (0.5 %) ointment 0.5 inch ophthalmic (eye) BID 5 Days Qty: 3.5 0RF Rx Instructions: right eye No Action (DME) CPAP device and all related supplies See Rx Instructions .Route .MEDSUPPLY Qty: 1 0RF Rx Instructions: As directed cholecalciferol (vitamin D3) [Vitamin D3] 25 mcg (1,000 unit) capsule 25 mcg PO DAILY 90 Days Qty: 90 3RF (DME) blood pressure monitor Kit See Rx Instructions .ROUTE .MEDSUPPLY Qty: 1 0RF Rx Instructions: As directed docusate sodium 100 mg capsule 100 mg PO DAILY Qty: 90 1RF meclizine 25 mg tablet 25 mg PO TID PRN (Reason: dizziness) 30 Days Qty: 90 1RF gabapentin 800 mg tablet 800 mg PO TID 30 Days Qty: 90 0RF midodrine 10 mg tablet 10 mg PO TID 30 Days Qty: 90 1RF Rx Instructions: do not give last dose of day after 6PM or within 4 hrs of bedtime tramadol 50 mg tablet 100 mg PO Q8H PRN (Reason: severe pain) 30 Days Qty: 60 0RF pantoprazole 40 mg tablet,delayed release (DR/EC) 40 mg PO QAM Qty: 90 2RF albuterol sulfate [Ventolin HFA] 90 mcg/actuation HFA aerosol inhaler 2 puff inhalation Q6H PRN (Reason: wheezing) 30 Days Qty: 6.7 0RF lorazepam 1 mg tablet 1 mg PO BID PRN (Reason: Anxiety) 30 Days Qty: 60 0RF melatonin 5 mg tablet 10 mg PO BEDTIME PRN (Reason: Insomnia) 30 Days Qty: 60 0RF bisacodyl [Dulcolax (bisacodyl)] 5 mg tablet,delayed release (DR/EC) 10 mg PO BEDTIME Qty: 180 4RF furosemide 20 mg tablet 20 mg PO QAM PRN (Reason: severe edema) Qty: 30 0RF topiramate 25 mg tablet PO DAILY Linzess 145 mcg capsule 145 mcg PO DAILY Qty: 30 3RF famotidine [Pepcid] 20 mg tablet 20 mg PO BEDTIME Qty: 30 3RF Eliquis 5 mg tablet 5 mg PO BID 30 Days Qty: 60 11RF verapamil 40 mg tablet PO Referrals: Mark Craig [Physician] - () Print Language: Honduran
[2024-09-13 13:10] VITALS: BP 126/57; PULSE 51; RESP 16; TEMP 36.9; O2SAT 99
[2024-09-13 13:31] VITALS: BP 126/57; PULSE 51; RESP 16; TEMP 36.9; O2SAT 99
== END 2024-09-13 13:32 | disposition home or self-care (01) ==
PROVIDERS: Emergency Provider Emergency Medicine Emergency Medical Services; PCP Internal Medicine
DX: L03.213 Periorbital cellulitis (principal); H00.011 Hordeolum externum right upper eyelid; H57.11 Ocular pain, right eye
CPT/HCPCS: 99283; 99284

== ENCOUNTER 2024-09-16 11:50 | Outpatient (AMB) | payer OTHER, SELFPAY ==
--- NOTE | 2024-09-16 11:55 | MHC.OFFVIS ---
Vital Signs 09/16/24 11:58 Height 5 ft 3 in Weight 171 lb BMI 30.3 BP 109/67 Blood Pressure Location Lt brachial Position Sitting Pulse 69 Pulse Oximetry (%) 98 Oxygen Delivery Method Room Air Intake Visit Reasons: 3 mo f/u Intake Note: Patient 3 month follow up for GERD and CIC. Patient cc: chronic constipation without BM x 4 days and the medication is not hepling her, abdominal pain with bloating, denies any other GI issues for today. Data Report Analyst Required: Yes Data Report Analyst Name: [facility] – [place] Interpeter Accompanied by: Self / Same As Patient Allergies atorvastatin Adverse Reaction (Intermediate, Verified 09/16/24 11:57) elevated LFTs rosuvastatin Adverse Reaction (Intermediate, Verified 09/16/24 11:57) Elevated LFTs acetaminophen Adverse Reaction (Unknown, Verified 09/16/24 11:57) Unknown HPI HPI 3 mo f/u: Details: LAST VISIT Abnormal LFTs Constipation GERD (gastroesophageal reflux disease) Postprandial abdominal bloating Plan Discussed with patient blood work and ultrasound. Patient will continue taking pantoprazole daily and famotidine at bedtime. Avoid dietary triggers in late night snacking. Patient continues to be constipated. She was like taking Linzess daily. Patient will call our office if she will have no results after starting Linzess. Increase fluid intake and activity to promote better bowel motility. Patient will follow-up in the office in 3 months, sooner on as needed basis. She is agreeable to this plan and verbalizes understanding of instructions. She was given the opportunity to ask questions and all questions answered. ? Thank you for allowing me to participate in her care Medications New linaclotide (Linzess) 145 mcg PO DAILY 30 caps 3RF famotidine (Pepcid) 20 mg PO BEDTIME 30 tabs 3RF K21.9 TODAY'S VISIT Patient is here today for follow-up. Patient reports that since last visit she has been doing well. Acid reflux well controlled with pantoprazole during the day. Patient is taking famotidine at bedtime. Denies dyspepsia, dysphagia or odynophagia. Patient reports that she is still having trouble moving her bowels. Currently patient is taking Linzess 145 mcg. No BM for 4 days. Patient reports that she is drinking fluids. However patient is on Lasix daily. Denies melena, hematochezia, unintentional weight loss or ribbon like stools. Patient denies any other GI concerning symptoms PFSH Medical History Pure hypercholesterolemia Left breast mass Pulmonary nodules Chronic kidney disease, stage III (moderate) Obesity (BMI 30-39.9) Renal cyst Diverticulosis Tubular adenoma Asthma Spondylosis of lumbar spine Sacroiliitis Dizziness of unknown etiology Chronic constipation Hx of schizophrenia Panic attacks PTSD (post-traumatic stress disorder) Dyspareunia Pyelonephritis Ingrown toenail Iron deficiency anemia Major depression, recurrent Anxiety Insomnia Tremor Orthostatic hypotension Incisional hernia without obstruction or gangrene Avascular necrosis of femoral head Bilateral carpal tunnel syndrome Peroneal neuropathy Lumbar degenerative disc disease Vitamin D deficiency GERD (gastroesophageal reflux disease) Migraine Hyperlipidemia Surgical History History of left nephrectomy (~1999) History of colonoscopy History of surgery Hx of cystoscopy History of bilateral breast reduction surgery History of hysterectomy History of cholecystectomy History of endoscopy (~06/2016) History of bladder repair surgery (~03/2015) S/P cystoscopy (~07/30/12) S/P panniculectomy History of hernia repair (~03/29/10) History of bladder surgery (~10/2009) History of gastric bypass (~2008) History of incisional hernia repair (~1999) Hx of umbilical hernia repair (~1999) H/O left nephrectomy S/P laparoscopic sleeve gastrectomy Family History Father Liver cancer Mother Breast cancer Sister Lung cancer Other Mental health problem Social History Household Members: Family Housing: House Do you presently have visiting nurse or other home services: No Alcohol intake: never Patient Tobacco Use Status: Never used Tobacco e-Cigarette/Vaping Use: Never Used Second Hand Smoke Exposure: No Advance Directives Date on File: 07/12/21 service: No Current occupational status: disabled Sexual orientation: Straight/Heterosexual Gender identity: Female Cognitive needs: No Hearing needs: No Vision needs: Yes Female Reproductive History Menstrual Age of Menarche: 13 Review of Systems Const Denies weight gain and Denies weight loss ENT Reports no additional complaints, Denies dysphagia and Denies odynophagia Card Reports no additional complaints Resp Reports no additional complaints GI Reports abdominal pain (cramping), Denies belching, Denies melena, Reports bloating, Denies change in bowel habits, Reports constipation, Denies dysphagia, Denies excessive flatus, Denies dyspepsia, Denies heartburn, Denies diarrhea, Denies loose stools, Denies nausea, Denies odynophagia and Denies vomiting Reports no additional complaints Musc Reports no additional complaints Neuro Reports no additional complaints Psych Reports no additional complaints Endo Reports no additional complaints Physical Exam Vital Signs: Last Vital Signs Pulse 69 09/16/24 11:58 BP 109/67 09/16/24 11:58 Pulse Ox 98 09/16/24 11:58 Oxygen Delivery Method Room Air 09/16/24 11:58 BMI result Body Mass Index 30.3 Const General: healthy appearing, no acute distress and well developed Nutritional Appearance: well nourished and obese Orientation/consciousness: patient oriented x3 Resp Effort & Inspection: normal respiratory effort, able to speak in complete sentences, no tracheal deviation and symmetric chest movement Auscultation: clear to auscultation bilaterally Cardio Rate: regular rate (58 apical, checked with stethoscope) GI Inspection: Yes normal to inspection, No distended and Yes obesity Palpation (GI): Soft to palpation, not firm, Tenderness to palpation present (GI) (Periumbilical area) and Hernia present umbilical Auscultation: normal bowel sounds General: Yes no CVA tenderness Back/Spine/Pelvis Back: no CVA tenderness Skin General skin exam: elasticity normal, turgor normal and dry skin Neuro General: patient oriented x3 Psych Appearance: grossly normal Mental Status: mental status grossly normal Assessment & Plan Assessment & Plan (1) Abnormal LFTs: Code(s): R79.89 - Other specified abnormal findings of blood chemistry Category: Medical (2) Constipation: Code(s): K59.00 - Constipation, unspecified Category: Medical Qualifiers: Constipation type: drug induced constipation Qualified Code(s): K59.03 - Drug induced constipation (3) GERD (gastroesophageal reflux disease): Code(s): K21.9 - Gastro-esophageal reflux disease without esophagitis Category: Medical Qualifiers: Esophagitis presence: without esophagitis Qualified Code(s): K21.9 - Gastro-esophageal reflux disease without esophagitis (4) Postprandial abdominal bloating: Code(s): R14.0 - Abdominal distension (gaseous) Plan Continue pantoprazole and famotidine. Avoid dietary triggers and late night snacking. Staying upright for minimum 3 hours after meals discussed with patient. To see patient will increase fluid intake. Will increase Linzess to 290 mcg daily. Patient can take Mag citrate when she gets home. She will call our office if she will continue to have constipation. May add Dulcolax at bedtime as needed. Follow-up in 3-4 months, sooner on as needed basis. She is agreeable to this plan and verbalizes understanding of instructions. She was given the opportunity to ask questions and all questions answered Medications: New linaclotide (Linzess) 290 mcg PO QAM 30 caps 4RF K59.00 - Constipation, unspecified magnesium citrate 150 mL PO DAILY PRN 296 mL 4RF constipation K59.00 - Constipation, unspecified hydrocortisone 2.5% (Proctosol HC) 1 appl LA BID-QID PRN 30 grams 2RF hemorrhoids K64.9 - Unspecified hemorrhoids Discontinued linaclotide Discontinued Reason: Doctor's Order 145 mcg PO DAILY 30 caps 3RF Coding Level of Care Code Est Pt Level 3 (62800) Diagnoses Abnormal LFTs R79.89 Drug-induced constipation K59.03 Constipation type: drug induced constipation Gastroesophageal reflux disease without esophagitis K21.9 Esophagitis presence: without esophagitis Postprandial abdominal bloating R14.0 Time Spent (min) 30 Comment 20 minutes spent with patient and additional 10 minutes spent reviewing her records
[2024-09-16 11:58] VITALS: BP 109/67; PULSE 69; O2SAT 98; BMI 30.3
--- OUTSIDE RECORDS SUMMARY | 2024-09-16 12:31 | XMS_ITS | Encounter Summary ---
Author Organization [employer] Address [address] [facility] [address] [place] [address] Care Team Providers Care Fish And Game Warden Name Role Phone Unavailable Primary Care Provider Unavailabl e Encounter Details Date Type Department Care Team (Latest Contact Info) Description 01/20/2022 Abstract [facility] CONVERSIONS Dental, Provider, DDS Social [...] Office Visit [facility]ULT [facility] [address] [place] [address] Leatha Centeno documented as of this encounter Visit Diagnoses Not on filedocumented in this encounter
--- OUTSIDE RECORDS SUMMARY | 2024-09-16 12:31 | XMS_ITS | Encounter Summary ---
Author Organization [employer] Address [address] [facility] [address] [place] [address] Care Team Providers Care Home Theatre Technician Name Role Phone Unavailable Primary Care Provider Unavailabl e Encounter Details Date Type Department Care Team (Latest Contact Info) Description 11/30/2020 Abstract [facility] CONVERSIONS Dental, Provider, DDS Social History [...] 11/20/2024 1:00 PM EDT Office Visit [facility] [address] [place] [address] Leatha Centeno documented as of this encounter Visit Diagnoses Not on filedocumented in this encounter
--- OUTSIDE RECORDS SUMMARY | 2024-09-16 12:31 | XMS_ITS | Clinical Summary ---
Author Organization [employer] Address [address] [facility] [address] [place] [address] Care Team Providers Care Environmental Services Supervisor Name Role Phone Unavailable Primary Care [...] 1:00 PM EDT Office Visit [facility]ULT [facility] [address] [place] [address] Leatha Centeno Health Maintenance Due Date Last [...] Most Recently Relevant to Health Maintenance Insurance DENTAL-[facility] MEDICAID STAND ADULT
--- OUTSIDE RECORDS SUMMARY | 2024-09-16 12:31 | XMS_ITS | Clinical Summary ---
Author Organization [facility] Address [address] [address] Phone Care Team Providers Care Clinical Radiologist Name Role Phone Hung Montelongo MD Primary Care Provider [phone] Allergies Active Allergy Reactions Criticality Noted Date [...] Visit [facility] [address] [place], [place] [id number] Alejandro Benz MD Renal stone (Primary Dx); [...] Visit [facility] [address] [place] [facility] [place] [address] Alejandro Benz MD [address] [facility] [address] [place] [address] Health Maintenance Due Date Last [...] l Result from Last 3 Months Insurance [facility] Medicaid Care Teams Clinical Radiologist Relationship Specialty Start Date End Date Hung Montelongo MD [address] [place] [id number] PCP - General 05/11/20
== END 2024-09-16 12:22 | disposition home or self-care (01) ==
LOC: HO.HGI 11:51
PROVIDERS: PCP Internal Medicine; Visit Provider Nurse Practitioner Family
DX: R79.89 Other specified abnormal findings of blood chemistry (principal); K59.03 Drug induced constipation; K21.9 Gastro-esophageal reflux disease without esophagitis; R14.0 Abdominal distension (gaseous)
CPT/HCPCS: 99213

== ENCOUNTER → 2024-09-16 11:50 | Outpatient (BNVA) | payer OTHER, SELFPAY | PROVIDERS: PCP Internal Medicine; Visit Provider Nurse Practitioner Family | DX: K59.03 Drug induced constipation (principal); K21.9 Gastro-esophageal reflux disease without esophagitis; R79.89 Other specified abnormal findings of blood chemistry; R14.0 Abdominal distension (gaseous) | CPT/HCPCS: 99212 ==

== ENCOUNTER → 2024-10-02 08:52 | Day surgery (SDC) | payer OTHER, SELFPAY ==
--- OUTSIDE RECORDS SUMMARY | 2024-09-09 06:48 | XMS_ITS | Clinical Summary ---
Author Organization [facility] Address [address] [address] Phone Care Team Providers Care Experimental Physicist Name Role Phone Hung Montelongo MD Primary Care Provider +1- [phone] Allergies Active Allergy Reactions Criticality Noted Date [...] Visit [facility] [address] [place], [place] [phone] Alejandro Benz MD Renal stone (Primary Dx); [...] Visit [facility] [address] [place] [facility] [address] Alejandro Benz MD [address] [facility] [address] [place] [address] Health Maintenance Due Date Last [...] Provider LAB BLOOD ORDERABLES Josette l Result from Last 3 Months Insurance [facility] Medicaid Care Teams Experimental Physicist Relationship Specialty Start Date End Date Hung Montelongo MD [address] [place] [id number] PCP - General 05/11/20
--- OUTSIDE RECORDS SUMMARY | 2024-09-09 06:48 | XMS_ITS | Encounter Summary ---
Author Organization [employer] Address [address] [facility] 7t [place] [address] Care Team Providers Care Plant Inspector Name Role Phone Unavailable Primary Care Provider Unavailabl e Encounter Details Date Type Department Care Team (Latest Contact Info) Description 01/20/2022 Abstract [facility] CONVERSIONS Dental, Provider, DDS Social History [...] Description 11/20/2024 1:00 PM EDT Office Visit [facility] ADULT DENTAL [address] [place] [address] Leatha Centeno documented as of this encounter Visit Diagnoses Not on filedocumented in this encounter
--- OUTSIDE RECORDS SUMMARY | 2024-09-09 06:48 | XMS_ITS | Clinical Summary ---
Author Organization [employer] Address [address] [facility] 7t [place] [address] Care Team Providers Care Consulting Manager Name Role Phone Unavailable Primary Care Provider [...] [facility] ADULT DENTAL [address] [place] [address] Leatha Centeno Health Maintenance Due Date Last [...] Most Recently Rele[place] [phone] [facility]AL-[facility] MEDICAID STAND ADULT
[2024-09-30 13:47] VITALS: BMI 30.3
--- NOTE | 2024-10-01 08:47 | HO.ANESPROP2 ---
Documented by User: Yanet Brunner NP 10/01/24 12:09 HPI - Anesthesia Eval Consult details Narrative: 53yo F for Repar Hernia Supraumbilical Reducible with possible mesh Eliquis for PE (01/2024) - will bridge with lovenox per pulmo [facility] Active Problems Active Problems: All Active Problems Periorbital cellulitis of right eye (Acute) Periodic limb movements of sleep (Acute) Fatigue due to sleep pattern disturbance (Acute) Edema (Acute) Incarcerated umbilical hernia (Acute) Pruritus (Acute) Encounter for well woman exam with routine gynecological exam (Acute) Umbilical hernia (Acute) Multiple thyroid nodules (Acute) Thyroid nodule (Acute) Abdominal wall pain in left flank (Acute) Pulmonary embolism (Chronic) Abnormal LFTs (Acute) Left-sided weakness (Acute) Shortness of breath (Acute) Cough (Acute) Chest pain (Acute) Depression with suicidal ideation (Acute) Ventral hernia (Acute) Flank hernia (Acute) Sacroiliac joint dysfunction of both sides (Acute) Abdominal pannus (Acute) Depression (Acute) Hypotension (Acute) Lower urinary tract symptoms (Acute) Complicated urinary tract infection (Acute) Osteoporosis screening (Acute) Paresthesia (Acute) Recurrent urinary tract infection (Acute) Solitary kidney, acquired (Acute) Orthostatic dizziness (Acute) Symptomatic abdominal panniculus (Acute) Panniculitis (Acute) Bilateral leg weakness (Acute) Obesity (Acute) Renal calculus, right (Acute) Excess skin (Acute) Urinary incontinence (Acute) Urinary frequency (Acute) MDD (major depressive disorder), recurrent, severe, with psychosis (Acute) Post traumatic stress disorder (PTSD) (Acute) Arthralgia (Acute) Knee pain, bilateral (Acute) Hip pain, bilateral (Acute) Bilateral elbow joint pain (Acute) Abdominal wall mass (Acute) Elevated LFTs (Acute) Transaminitis (Acute) Renal cyst (Acute) Memory impairment (Acute) Left lumbar radiculopathy (Acute) Sacroiliac joint pain (Acute) Overweight (Acute) Colon cancer screening (Acute) Constipation (Acute) MIGUEL (obstructive sleep apnea) (Acute) Nephrolithiasis (Acute) Dyspareunia, female (Acute) Painful sexual intercourse (Acute) Skin laxity (Acute) Dysuria (Acute) Overweight (BMI 25.0-29.9) (Acute) Pure hypercholesterolemia (Acute) Left breast mass (Acute) Asthma (Acute) Pulmonary nodules (Acute) PTSD (post-traumatic stress disorder) (Acute) Chronic kidney disease, stage III (moderate) (Acute) Obesity (BMI 30-39.9) (Acute) Renal cyst (Acute) Diverticulosis (Acute) Tubular adenoma (Acute) Spondylosis of lumbar spine (Acute) Sacroiliitis (Acute) Dizziness of unknown etiology (Acute) Chronic constipation (Acute) History of gastric bypass (Acute ~2008) Dyspareunia (Acute) Pyelonephritis (Acute) Ingrown toenail (Acute) Iron deficiency anemia (Acute) Major depression, recurrent (Acute) Anxiety (Acute) Insomnia (Acute) Tremor (Acute) Orthostatic hypotension (Acute) Incisional hernia without obstruction or gangrene (Acute) Avascular necrosis of femoral head (Acute) Bilateral carpal tunnel syndrome (Acute) Peroneal neuropathy (Acute) Lumbar degenerative disc disease (Acute) Vitamin D deficiency (Acute) GERD (gastroesophageal reflux disease) (Acute) Migraine (Acute) Hyperlipidemia (Acute) Past Medical History Medical History Pure hypercholesterolemia Left breast mass Pulmonary nodules Chronic kidney disease, stage III (moderate) Obesity (BMI 30-39.9) Renal cyst Diverticulosis Tubular adenoma Asthma Spondylosis of lumbar spine Sacroiliitis Dizziness of unknown etiology Chronic constipation Hx of schizophrenia Panic attacks PTSD (post-traumatic stress disorder) Dyspareunia Pyelonephritis Ingrown toenail Iron deficiency anemia Major depression, recurrent Anxiety Insomnia Tremor Orthostatic hypotension Incisional hernia without obstruction or gangrene Avascular necrosis of femoral head Bilateral carpal tunnel syndrome Peroneal neuropathy Lumbar degenerative disc disease Vitamin D deficiency GERD (gastroesophageal reflux disease) Migraine Hyperlipidemia Family History Family History Father Liver cancer Mother Breast cancer Sister Lung cancer Other Mental health problem Family history of problems with anesthesia: No Surgical History Surgical History Hx of lithotripsy History of left nephrectomy (~1999) History of colonoscopy History of surgery Hx of cystoscopy History of bilateral breast reduction surgery History of hysterectomy History of cholecystectomy History of endoscopy (~06/2016) History of bladder repair surgery (~03/2015) S/P cystoscopy (~07/30/12) S/P panniculectomy History of hernia repair (~03/29/10) History of bladder surgery (~10/2009) History of gastric bypass (~2008) History of incisional hernia repair (~1999) Hx of umbilical hernia repair (~1999) S/P laparoscopic sleeve gastrectomy History of Problems with Anesthesia: No Social History Social History Household Members: Family Housing: House Are you a primary congregational care pastor to a significant other at home: No Do you presently have visiting nurse or other home services: No Alcohol intake: never Patient Tobacco Use Status: Never used Tobacco e-Cigarette/Vaping Use: Never Used Second Hand Smoke Exposure: No Use of substances other than those prescribed or required for medical reasons: No Have you been hit, kicked, punched, or otherwise hurt by someone within the past year? If so, by whom?: No Are you DNR?: No Advance Directives: Yes Advance Directives Information Provided: Yes Advance Directives on File: Yes Advance Directives Date on File: 06/17/16 Patient : No : No Poor oral hygiene: No service: No Current occupational status: disabled Sexual orientation: Straight/Heterosexual Gender identity: Female Cognitive needs: No Hearing needs: No Vision needs: Yes Meds Allergies Allergy/AdvReac Type Severity Reaction Status Date / Time acetaminophen AdvReac Intermediate Liver Verified 10/02/24 10:15 problems atorvastatin AdvReac Intermediate elevated Verified 10/02/24 10:15 LFTs rosuvastatin AdvReac Intermediate elevated Verified 10/02/24 10:15 LFTs Home Medications ?Medication ?Instructions ?Recorded ?Confirmed ?Last Taken ?Type topiramate 25 mg tablet 25 mg PO DAILY 06/18/24 10/02/24 Unknown History Exam Height,Weight and Vital Signs: Height 5 ft 3 in Weight 77.564 kg Pertinent Lab Results Pertinent Lab Results: Laboratory Tests 08/21/24 10:39 WBC 6.1 Hgb 13.4 Hct 40.4 Plt Count 275 Sodium 139 Potassium 4.4 Chloride 106 Carbon Dioxide 29 BUN 15 Creatinine 1.06 Narrative Narrative: ECHO 2023 Conclusions: - Normal left ventricular cavity size. There is mildly increased left ventricular wall thickness. The left ventricular systolic function is hyperdynamic. The visually estimated ejection fraction is >70%. There is no evidence of regional wall motion abnormalities. Diastolic function is normal for age. - Mildly increased right ventricular cavity size. There is normal right ventricular systolic function. - Normal right atrial pressure. There is no evidence of pulmonary hypertension. Repeat ECHO without evidence of PFO EKG 2023 Vent. Rate : 050 BPM Atrial Rate : 050 BPM P-R Int : 142 ms QRS Dur : 078 ms QT Int : 478 ms P-R-T Axes : 044 056 061 degrees QTc Int : 435 ms Sinus bradycardia Otherwise normal ECG When compared with ECG of 22-JAN-2024 09:02, No significant change was found Assessment and Plan Assessment Anesthesia Assessment: Chart Reviewed Final Anesthetic Review Family History of Problems with Anesthesia: No History of Problems with Anesthesia: No Documented by User: Mathieu Roca MD 10/02/24 13:56 [facility] Past Medical History Medical History Pure hypercholesterolemia Left breast mass Pulmonary nodules Chronic kidney disease, stage III (moderate) Obesity (BMI 30-39.9) Renal cyst Diverticulosis Tubular adenoma Asthma Spondylosis of lumbar spine Sacroiliitis Dizziness of unknown etiology Chronic constipation Hx of schizophrenia Panic attacks PTSD (post-traumatic stress disorder) Dyspareunia Pyelonephritis Ingrown toenail Iron deficiency anemia Major depression, recurrent Anxiety Insomnia Tremor Orthostatic hypotension Incisional hernia without obstruction or gangrene Avascular necrosis of femoral head Bilateral carpal tunnel syndrome Peroneal neuropathy Lumbar degenerative disc disease Vitamin D deficiency GERD (gastroesophageal reflux disease) Migraine Hyperlipidemia Functional capacity: independent ambulation Patient : No Family History Family History Father Liver cancer Mother Breast cancer Sister Lung cancer Other Mental health problem Surgical History Surgical History Hx of lithotripsy History of left nephrectomy (~1999) History of colonoscopy History of surgery Hx of cystoscopy History of bilateral breast reduction surgery History of hysterectomy History of cholecystectomy History of endoscopy (~06/2016) History of bladder repair surgery (~03/2015) S/P cystoscopy (~07/30/12) S/P panniculectomy History of hernia repair (~03/29/10) History of bladder surgery (~10/2009) History of gastric bypass (~2008) History of incisional hernia repair (~1999) Hx of umbilical hernia repair (~1999) S/P laparoscopic sleeve gastrectomy Social History Social History Household Members: Family Housing: House Are you a primary congregational care pastor to a significant other at home: No Do you presently have visiting nurse or other home services: No Alcohol intake: never Patient Tobacco Use Status: Never used Tobacco e-Cigarette/Vaping Use: Never Used Second Hand Smoke Exposure: No Use of substances other than those prescribed or required for medical reasons: No Have you been hit, kicked, punched, or otherwise hurt by someone within the past year? If so, by whom?: No Are you DNR?: No Advance Directives: Yes Advance Directives Information Provided: Yes Advance Directives on File: Yes Advance Directives Date on File: 06/17/16 Patient : No : No Poor oral hygiene: No service: No Current occupational status: disabled Sexual orientation: Straight/Heterosexual Gender identity: Female Cognitive needs: No Hearing needs: No Vision needs: Yes Meds Allergies Allergy/AdvReac Type Severity Reaction Status Date / Time acetaminophen AdvReac Intermediate Liver Verified 10/02/24 10:15 problems atorvastatin AdvReac Intermediate elevated Verified 10/02/24 10:15 LFTs rosuvastatin AdvReac Intermediate elevated Verified 10/02/24 10:15 LFTs Home Medications ?Medication ?Instructions ?Recorded ?Confirmed ?Last Taken ?Type topiramate 25 mg tablet 25 mg PO DAILY 06/18/24 10/02/24 Unknown History Exam Exam Date and Time: 10/02/2024 Narrative Narrative: vECHO 2023 Conclusions: - Normal left ventricular cavity size. There is mildly increased left ventricular wall thickness. The left ventricular systolic function is hyperdynamic. The visually estimated ejection fraction is >70%. There is no evidence of regional wall motion abnormalities. Diastolic function is normal for age. - Mildly increased right ventricular cavity size. There is normal right ventricular systolic function. - Normal right atrial pressure. There is no evidence of pulmonary hypertension. Repeat ECHO without evidence of PFO EKG 2023 Vent. Rate : 050 BPM Atrial Rate : 050 BPM P-R Int : 142 ms QRS Dur : 078 ms QT Int : 478 ms P-R-T Axes : 044 056 061 degrees QTc Int : 435 ms Sinus bradycardia Otherwise normal ECG When compared with ECG of 22-JAN-2024 09:02, No significant change was found Airway Mallampati Class: II TM Dist: >3cm Neck ROM: Full Loose/Missing/Broken Teeth: No Heart: rrr Lungs: cta Assessment and Plan Assessment Anesthesia Assessment: Anesthesia Plan Discussed Final Anesthetic Review NPO: Yes ASA Class: II Final Preanesthetic Review: No Changes in Pt Med Stat, Meds/Allgs Chart Reviewed, Consent Obtained/Reviewed and Anes Risks/Benef Reviewed Patient Risk: Low Procedure Risk: Low Anesthetic Plan Anesthetic Plan: MAC: Disposition: Standard PACU
[2024-10-02 10:16] VITALS: BP 124/72; PULSE 63; RESP 16; TEMP 36.8; O2SAT 99; BMI 30.5
[2024-10-02] MEDS: Lactated Ringers 1,000 ML 100 ML IVCONT (15:15)
--- NOTE | 2024-10-02 16:00 | PC.NURSE ---
Patient in preop. Case cancelled per Dr. Marroquin due to another emergent case. Wale, Senior Net Developer Architect, called to bedside to discuss this with patient. Patients family called by MD. All belongings back with patient. IV removed, tolerated well. Dr. Marroquin to reschedule patient in the account strategist, CHRISTIE. Patient shown to elevators by this nurse to leave hospital with family.
== END ==
LOC: HO.SSS 08:53
PROVIDERS: PCP Internal Medicine; Visit Provider Surgery
DX: K42.9 Umbilical hernia without obstruction or gangrene (principal); Z53.8 Procedure and treatment not carried out for other reasons; I95.1 Orthostatic hypotension; R91.8 Other nonspecific abnormal finding of lung field; Z79.01 Long term (current) use of anticoagulants; Z79.899 Other long term (current) drug therapy; Z88.8 Allergy status to other drugs, medicaments and biological substances
CPT/HCPCS: J0690; J2003; J2795

== ENCOUNTER 2024-10-17 05:47 | Day surgery (SDC) | payer OTHER, SELFPAY ==
--- OUTSIDE RECORDS SUMMARY | 2024-10-03 06:49 | XMS_ITS | Encounter Summary ---
Author Organization [employer] Address [address] [place] [address] Care Team Providers Care Mineral Mixer Name Role Phone Unavailable Primary Care Provider Unavailabl e Encounter Details Date Type Department Care Team (Latest Contact Info) Description 11/30/2020 Abstract [facility] Dental, Provider, DDS Social History Tobacco [...] Visit [facility] [address] [place] [address] Leatha Centeno documented as of this encounter Visit Diagnoses Not on filedocumented in this encounter
[2024-10-15 11:38] VITALS: BMI 30.6
--- NOTE | 2024-10-16 09:36 | P.CONAN_ITS ---
Documented by User: Yanet Brunner NP 10/16/24 09:42 HPI - Anesthesia Eval Consult details Narrative: 53yo F for Repar Hernia Supraumbilical Reducible with possible mesh Eliquis for PE (01/2024) - will bridge with lovenox per pulmo Eval with [facility] Heme 09/2024 with plan to d/c anticoag after hernia surgery Previously cancelled DOS d/t emergent case in OR [facility] Active Problems Active Problems: All Active Problems Periorbital cellulitis of right eye (Acute) Periodic limb movements of sleep (Acute) Fatigue due to sleep pattern disturbance (Acute) Edema (Acute) Incarcerated umbilical hernia (Acute) Pruritus (Acute) Encounter for well woman exam with routine gynecological exam (Acute) Umbilical hernia (Acute) Multiple thyroid nodules (Acute) Thyroid nodule (Acute) Abdominal wall pain in left flank (Acute) Pulmonary embolism (Chronic) Abnormal LFTs (Acute) Left-sided weakness (Acute) Shortness of breath (Acute) Cough (Acute) Chest pain (Acute) Depression with suicidal ideation (Acute) Ventral hernia (Acute) Flank hernia (Acute) Sacroiliac joint dysfunction of both sides (Acute) Abdominal pannus (Acute) Depression (Acute) Hypotension (Acute) Lower urinary tract symptoms (Acute) Complicated urinary tract infection (Acute) Osteoporosis screening (Acute) Paresthesia (Acute) Recurrent urinary tract infection (Acute) Solitary kidney, acquired (Acute) Orthostatic dizziness (Acute) Symptomatic abdominal panniculus (Acute) Panniculitis (Acute) Bilateral leg weakness (Acute) Obesity (Acute) Renal calculus, right (Acute) Excess skin (Acute) Urinary incontinence (Acute) Urinary frequency (Acute) MDD (major depressive disorder), recurrent, severe, with psychosis (Acute) Post traumatic stress disorder (PTSD) (Acute) Arthralgia (Acute) Knee pain, bilateral (Acute) Hip pain, bilateral (Acute) Bilateral elbow joint pain (Acute) Abdominal wall mass (Acute) Elevated LFTs (Acute) Transaminitis (Acute) Renal cyst (Acute) Memory impairment (Acute) Left lumbar radiculopathy (Acute) Sacroiliac joint pain (Acute) Overweight (Acute) Colon cancer screening (Acute) Constipation (Acute) MIGUEL (obstructive sleep apnea) (Acute) Nephrolithiasis (Acute) Dyspareunia, female (Acute) Painful sexual intercourse (Acute) Skin laxity (Acute) Dysuria (Acute) Overweight (BMI 25.0-29.9) (Acute) Pure hypercholesterolemia (Acute) Left breast mass (Acute) Asthma (Acute) Pulmonary nodules (Acute) PTSD (post-traumatic stress disorder) (Acute) Chronic kidney disease, stage III (moderate) (Acute) Obesity (BMI 30-39.9) (Acute) Renal cyst (Acute) Diverticulosis (Acute) Tubular adenoma (Acute) Spondylosis of lumbar spine (Acute) Sacroiliitis (Acute) Dizziness of unknown etiology (Acute) Chronic constipation (Acute) History of gastric bypass (Acute ~2008) Dyspareunia (Acute) Pyelonephritis (Acute) Ingrown toenail (Acute) Iron deficiency anemia (Acute) Major depression, recurrent (Acute) Anxiety (Acute) Insomnia (Acute) Tremor (Acute) Orthostatic hypotension (Acute) Incisional hernia without obstruction or gangrene (Acute) Avascular necrosis of femoral head (Acute) Bilateral carpal tunnel syndrome (Acute) Peroneal neuropathy (Acute) Lumbar degenerative disc disease (Acute) Vitamin D deficiency (Acute) GERD (gastroesophageal reflux disease) (Acute) Migraine (Acute) Hyperlipidemia (Acute) Past Medical History Medical History Pure hypercholesterolemia Left breast mass Pulmonary nodules Chronic kidney disease, stage III (moderate) Obesity (BMI 30-39.9) Renal cyst Diverticulosis Tubular adenoma Asthma Spondylosis of lumbar spine Sacroiliitis Dizziness of unknown etiology Chronic constipation Hx of schizophrenia Panic attacks PTSD (post-traumatic stress disorder) Dyspareunia Pyelonephritis Ingrown toenail Iron deficiency anemia Major depression, recurrent Anxiety Insomnia Tremor Orthostatic hypotension Incisional hernia without obstruction or gangrene Avascular necrosis of femoral head Bilateral carpal tunnel syndrome Peroneal neuropathy Lumbar degenerative disc disease Vitamin D deficiency GERD (gastroesophageal reflux disease) Migraine Hyperlipidemia Family History Family History Father Liver cancer Mother Breast cancer Sister Lung cancer Other Mental health problem Family history of problems with anesthesia: No Surgical History Surgical History Hx of lithotripsy History of left nephrectomy (~1999) History of colonoscopy History of surgery Hx of cystoscopy History of bilateral breast reduction surgery History of hysterectomy History of cholecystectomy History of endoscopy (~06/2016) History of bladder repair surgery (~03/2015) S/P cystoscopy (~07/30/12) S/P panniculectomy History of hernia repair (~03/29/10) History of bladder surgery (~10/2009) History of gastric bypass (~2008) History of incisional hernia repair (~1999) Hx of umbilical hernia repair (~1999) S/P laparoscopic sleeve gastrectomy History of Problems with Anesthesia: No Social History Social History Household Members: Family Housing: House Are you a primary ambulatory care to a significant other at home: No Do you presently have visiting nurse or other home services: No Alcohol intake: never Patient Tobacco Use Status: Never used Tobacco e-Cigarette/Vaping Use: Never Used Second Hand Smoke Exposure: No Use of substances other than those prescribed or required for medical reasons: No Are you DNR?: No Advance Directives: No Advance Directives Information Provided: Yes Advance Directives Date on File: 06/17/16 Patient : No : No Poor oral hygiene: No service: No Current occupational status: disabled Sexual orientation: Straight/Heterosexual Gender identity: Female Cognitive needs: No Hearing needs: No Vision needs: Yes Meds Allergies Allergy/AdvReac Type Severity Reaction Status Date / Time acetaminophen AdvReac Intermediate Liver Verified 10/02/24 10:15 problems atorvastatin AdvReac Intermediate elevated Verified 10/02/24 10:15 LFTs rosuvastatin AdvReac Intermediate elevated Verified 10/02/24 10:15 LFTs Home Medications ?Medication ?Instructions ?Recorded ?Confirmed ?Last Taken ?Type topiramate 25 mg tablet 25 mg PO DAILY 06/18/2408/23 Unknown History nitrofurantoin 50 mg capsule mg PO 10/09/24 10/09/24 U nknown History Exam Exam Date and Time: 10/02/2024 Height,Weight and Vital Signs: Height 5 ft 2.5 in Weight 77.111 kg Pertinent Lab Results Pertinent Lab Results: Laboratory Tests 08/21/24 10:39 WBC 6.1 Hgb 13.4 Hct 40.4 Plt Count 275 Sodium 139 Potassium 4.4 Chloride 106 Carbon Dioxide 29 BUN 15 Creatinine 1.06 Narrative Narrative: ECHO 2023 Conclusions: - Normal left ventricular cavity size. There is mildly increased left ventricular wall thickness. The left ventricular systolic function is hyperdynamic. The visually estimated ejection fraction is >70%. There is no evidence of regional wall motion abnormalities. Diastolic function is normal for age. - Mildly increased right ventricular cavity size. There is normal right ventricular systolic function. - Normal right atrial pressure. There is no evidence of pulmonary hypertension. Repeat ECHO without evidence of PFO EKG 2023 Vent. Rate : 050 BPM Atrial Rate : 050 BPM P-R Int : 142 ms QRS Dur : 078 ms QT Int : 478 ms P-R-T Axes : 044 056 061 degrees QTc Int : 435 ms Sinus bradycardia Otherwise normal ECG When compared with ECG of 22-JAN-2024 09:02, No significant change was found Assessment and Plan Assessment Anesthesia Assessment: Chart Reviewed Final Anesthetic Review Family History of Problems with Anesthesia: No History of Problems with Anesthesia: No Documented by User: Mathieu Roca MD 10/17/24 07:21 [facility] Past Medical History Medical History Pure hypercholesterolemia Left breast mass Pulmonary nodules Chronic kidney disease, stage III (moderate) Obesity (BMI 30-39.9) Renal cyst Diverticulosis Tubular adenoma Asthma Spondylosis of lumbar spine Sacroiliitis Dizziness of unknown etiology Chronic constipation Hx of schizophrenia Panic attacks PTSD (post-traumatic stress disorder) Dyspareunia Pyelonephritis Ingrown toenail Iron deficiency anemia Major depression, recurrent Anxiety Insomnia Tremor Orthostatic hypotension Incisional hernia without obstruction or gangrene Avascular necrosis of femoral head Bilateral carpal tunnel syndrome Peroneal neuropathy Lumbar degenerative disc disease Vitamin D deficiency GERD (gastroesophageal reflux disease) Migraine Hyperlipidemia Functional capacity: independent ambulation Family History Family History Father Liver cancer Mother Breast cancer Sister Lung cancer Other Mental health problem Surgical History Surgical History Hx of lithotripsy History of left nephrectomy (~1999) History of colonoscopy History of surgery Hx of cystoscopy History of bilateral breast reduction surgery History of hysterectomy History of cholecystectomy History of endoscopy (~06/2016) History of bladder repair surgery (~03/2015) S/P cystoscopy (~07/30/12) S/P panniculectomy History of hernia repair (~03/29/10) History of bladder surgery (~10/2009) History of gastric bypass (~2008) History of incisional hernia repair (~1999) Hx of umbilical hernia repair (~1999) S/P laparoscopic sleeve gastrectomy Social History Social History Household Members: Family Housing: House Are you a primary ambulatory care to a significant other at home: No Do you presently have visiting nurse or other home services: No Alcohol intake: never Patient Tobacco Use Status: Never used Tobacco e-Cigarette/Vaping Use: Never Used Second Hand Smoke Exposure: No Use of substances other than those prescribed or required for medical reasons: No Are you DNR?: No Advance Directives: No Advance Directives Information Provided: Yes Advance Directives Date on File: 06/17/16 Patient : No : No Poor oral hygiene: No service: No Current occupational status: disabled Sexual orientation: Straight/Heterosexual Gender identity: Female Cognitive needs: No Hearing needs: No Vision needs: Yes Meds Allergies Allergy/AdvReac Type Severity Reaction Status Date / Time acetaminophen AdvReac Intermediate Liver Verified 10/02/24 10:15 problems atorvastatin AdvReac Intermediate elevated Verified 10/02/24 10:15 LFTs rosuvastatin AdvReac Intermediate elevated Verified 10/02/24 10:15 LFTs Home Medications ?Medication ?Instructions ?Recorded ?Confirmed ?Last Taken ?Type topiramate 25 mg tablet 25 mg PO DAILY 06/18/2408/23 Unknown History nitrofurantoin 50 mg capsule mg PO 10/09/24 10/09/24 U nknown History Exam Exam Date and Time: 10/17/2024 Airway Mallampati Class: II TM Dist: >3cm Neck ROM: Full Loose/Missing/Broken Teeth: No Heart: rrr Lungs: cta Assessment and Plan Assessment Anesthesia Assessment: Anesthesia Plan Discussed Final Anesthetic Review NPO: Yes ASA Class: II Final Preanesthetic Review: No Changes in Pt Med Stat, Meds/Allgs Chart Reviewed, Consent Obtained/Reviewed and Anes Risks/Benef Reviewed Patient Risk: Low Procedure Risk: Low Anesthetic Plan Anesthetic Plan: GA and Agree w/ Assess. and Plan Disposition: Standard PACU
[2024-10-17] VITALS (12 sets, daily range): BP systolic 106–129; BP diastolic 55–80; PULSE 59–77; RESP 12–18; TEMP 36.1–36.9; O2SAT 95–100; BMI 30.4
[2024-10-17] MEDS: Lactated Ringers 1,000 ML 100 ML IVCONT (06:42)
--- NOTE | 2024-10-17 07:12 | MHC.SHP ---
Pre-Procedural Eval Section A - 24 Hr Update-Section A only Date of Service: 10/17/24 Section B - Complete if H&P > 30 days Chief Complaint: Umbilical hernia without obstruction or gangrene Relevant Family History (Specify if Yes): No Relevant Social History: None Present Medications: see Short Stay Collaborative assessment History of Previous Operations: No relevant previous surgery Allergies: Allergies Allergy/AdvReac Type Severity Reaction Status Date / Time acetaminophen AdvReac Intermediate Liver Verified 10/02/24 10:15 problems atorvastatin AdvReac Intermediate elevated Verified 10/02/24 10:15 LFTs rosuvastatin AdvReac Intermediate elevated Verified 10/02/24 10:15 LFTs Review of Systems Sugical H&P ROS: Negative: Constitution, Cardiovascular, Respiratory and Gastrointestinal Exam Surgical H&P Exam: Normal: Heart and Normal: Lungs and Significant Findings: Abdomen (Reducible mass supraumbilical area) Plan Diagnosis/Plan: Unchanged I have reviewed the history and physical and performed a pertinent physical examination on my patient. No changes have occurred unless specified. Time Spent With Patient Time: Total time managing care of this patient today ____ minutes.
[2024-10-17] MEDS: ceFAZolin Sodium/Dextrose,Iso 2 GM/50 ML PIGGYBACK IV (07:45)
--- NOTE | 2024-10-17 08:24 | W.PM.OPN ---
Operative Note Operative Note Date of Service: 10/17/24 Narrative: Preop diagnosis: Supraumbilical hernia, reducible Postop diagnosis:: No supraumbilical hernia or umbilical hernia noted; indurated fat holding the supraumbilical area seen likely related to her previous abdominoplasty Procedure: Exploration of umbilicus Surgeon: Gerardo Marroquin MD assistant corporation counsel: CJ Gupta The patient is a 53 year old female initially seen by Dr. Mcgill for repair of an umbilical hernia. She was eventually scheduled for repair by myself in view ask Dr. Mcgill had been unavailable She understood the technique of the planned procedure as was the risks, benefits, and alternatives. She was brought to the operating room. She was placed supine under general anesthesia via laryngeal mask airway. The abdomen was prepped and draped in usual sterile fashion. A surgical time-out was done. The patient received cefazolin 2 g IV preoperatively The area of question of the hernia was on the supraumbilical areas so I infiltrated this with lidocaine 1%. I made a short midline supraumbilical incision with a blade 15. And this carried down through the full-thickness of the skin subcutaneous fat with electrocautery. Then proceeded to dissect the umbilicus as a flap to lift this off of the rest of the subcutaneous layer as and the fascia. The patient did have a thick amount of subcutaneous fat so we had to do a lot of careful dissection. I proceeded to expose the entire fascia underneath the umbilicus and on the area surrounding this. There was note of large amounts of indurated fat. However, there was no fascial defect seen. I continued to thoroughly explored the area and inspect but there was no defect at all in the fascia throughout the entire area of the umbilicus and above this The palpable fat was therefore did not appeared to be a hernia but actually was large amounts of indurated fat likely related to her previous panniculectomy I therefore irrigated. I reapposed the thick subcutaneous layer Polysorb 3-0 simple interrupted sutures. Skin closure was achieved with Polysorb 4-0 subcuticular running sutures. The area was then infiltrated with Marcaine 0.5% for postop analgesia. Dressings were applied. The procedure was completed The patient tolerated procedure well. There were no immediate complications. Initial and final counts of sponges and instruments were correct. Estimated blood loss was less than 25 cc The patient was extubated without difficulty and transferred to the recovery room with stable vital signs.
[2024-10-17] MEDS: oxyCODONE HCl Immed Release 5 MG TABLET PO (10:14)
[2024-10-17] MEDS: Acetaminophen 325 MG TABLET 650 MG PO (10:15)
== END 2024-10-17 11:12 | disposition home or self-care (01) ==
PROVIDERS: PCP Internal Medicine; Visit Provider Surgery
PROC: (CPT 49000; principal; 2024-10-17 07:30)
DX: R19.05 Periumbilic swelling, mass or lump (principal); E78.00 Pure hypercholesterolemia, unspecified; N18.30 Chronic kidney disease, stage 3 unspecified; Z90.5 Acquired absence of kidney; J45.909 Unspecified asthma, uncomplicated; D50.9 Iron deficiency anemia, unspecified; K21.9 Gastro-esophageal reflux disease without esophagitis; R91.8 Other nonspecific abnormal finding of lung field; G57.30 Lesion of lateral popliteal nerve, unspecified lower limb; F33.9 Major depressive disorder, recurrent, unspecified; E55.9 Vitamin D deficiency, unspecified; Z98.84 Bariatric surgery status; Z79.01 Long term (current) use of anticoagulants; Z79.899 Other long term (current) drug therapy; Z88.8 Allergy status to other drugs, medicaments and biological substances; Z90.49 Acquired absence of other specified parts of digestive tract; Z98.890 Other specified postprocedural states
CPT/HCPCS: 49000; J0690; J1100; J2003; J2250; J2405; J2704; J2795; J3010

== ENCOUNTER → 2024-10-17 05:47 | Outpatient (BNV) | payer OTHER, SELFPAY | PROVIDERS: PCP Internal Medicine; Visit Provider Surgery | DX: R19.05 Periumbilic swelling, mass or lump (principal) | CPT/HCPCS: 49000 ==

== ENCOUNTER 2024-10-30 10:58 | Outpatient (AMB) | payer OTHER, SELFPAY ==
--- NOTE | 2024-10-30 11:03 | MHC.OFFVIS ---
Vital Signs 10/30/24 11:15 Height 5 ft 3 in Weight 172 lb BMI 30.5 BP 120/70 Blood Pressure Location Lt brachial Position Sitting Pulse 63 Intake Visit Reasons: S/P Supraumbilical hernia Intake Note: Patient is seen in office for post op assessment post supraumbilical hernia repair. Pt c/o: admits to minor pain and bruising Test Fixture Assembler Required: Yes Test Fixture Assembler Language: Metalizing Supervisor Services: Test Fixture Assembler Present Test Fixture Assembler Name: Deya LAMB Information Interpreted: non-clinical & clinical Senior Health Consultant: Senior Health Consultant Present Accompanied by: Self / Same As Patient Allergies acetaminophen Adverse Reaction (Intermediate, Verified 10/30/24 11:14) Liver problems atorvastatin Adverse Reaction (Intermediate, Verified 10/30/24 11:14) elevated LFTs rosuvastatin Adverse Reaction (Intermediate, Verified 10/30/24 11:14) elevated LFTs HPI HPI S/P Supraumbilical hernia: Details: inhouse disability rater used for this evaluation. patient doing well, complains of mild pain at the incision stie, bruising. Tolerating diet and having good BM. denies fever, chills. PFSH Medical History Pure hypercholesterolemia Left breast mass Pulmonary nodules Chronic kidney disease, stage III (moderate) Obesity (BMI 30-39.9) Renal cyst Diverticulosis Tubular adenoma Asthma Spondylosis of lumbar spine Sacroiliitis Dizziness of unknown etiology Chronic constipation Hx of schizophrenia Panic attacks PTSD (post-traumatic stress disorder) Dyspareunia Pyelonephritis Ingrown toenail Iron deficiency anemia Major depression, recurrent Anxiety Insomnia Tremor Orthostatic hypotension Incisional hernia without obstruction or gangrene Avascular necrosis of femoral head Bilateral carpal tunnel syndrome Peroneal neuropathy Lumbar degenerative disc disease Vitamin D deficiency GERD (gastroesophageal reflux disease) Migraine Hyperlipidemia Surgical History Hx of lithotripsy History of left nephrectomy (~1999) History of colonoscopy History of surgery Hx of cystoscopy History of bilateral breast reduction surgery History of hysterectomy History of cholecystectomy History of endoscopy (~06/2016) History of bladder repair surgery (~03/2015) S/P cystoscopy (~07/30/12) S/P panniculectomy History of hernia repair (~03/29/10) History of bladder surgery (~10/2009) History of gastric bypass (~2008) History of incisional hernia repair (~1999) Hx of umbilical hernia repair (~1999) S/P laparoscopic sleeve gastrectomy Family History Father Liver cancer Mother Breast cancer Sister Lung cancer Other Mental health problem Social History Household Members: Family Housing: House Are you a primary senior care provider to a significant other at home: No Do you presently have visiting nurse or other home services: No Alcohol intake: never Patient Tobacco Use Status: Never used Tobacco e-Cigarette/Vaping Use: Never Used Second Hand Smoke Exposure: No Advance Directives Date on File: 06/17/16 service: No Current occupational status: disabled Sexual orientation: Straight/Heterosexual Gender identity: Female Cognitive needs: No Hearing needs: No Vision needs: Yes Female Reproductive History Menstrual Age of Menarche: 13 Review of Systems Const All systems reviewed & are unremarkable except as noted in HPI and below Physical Exam Vital Signs: Last Vital Signs Pulse 63 10/30/24 11:15 BP 120/70 10/30/24 11:15 BMI result Body Mass Index 30.5 Const General: healthy appearing, comfortable and no acute distress Orientation/consciousness: patient oriented x3 Resp Effort & Inspection: normal respiratory effort and able to speak in complete sentences GI Other: incision site clean dry and intact, so surrounding eythema, no fluid collection. mildly tender. surrounding ecchymosis Inspection: No distended Palpation (GI): Soft to palpation, not firm, Tenderness to palpation present (GI) (mild at incision site), no guarding and not rigid Neuro General: patient oriented x3 Assessment & Plan Assessment & Plan (1) Umbilical mass: Comment: s/p removal Code(s): R19.09 - Other intra-abdominal and pelvic swelling, mass and lump Category: Medical Plan 53 year old female presenting to the office s/p removal of periumbilical mass. patient was thought to have had a supraumbilical hernia repair. During the procedure, there was no hernia that was able to be found, it was likely that the patients symptoms were secondary to indurated fat after her panniculectomy. Discussed these findings with the patient. She is overall doing well. Complains of mild pain at the incision site. bowel function and appetite are at baseline. on exam her abdomen is soft and benign, mildly tender at the incision site. The incision appears to be healing well, no concern for infection at this time. Will continue with activity restrictions until next appt in 2 weeks. patient will f/u in 2 weeks for wound check, can follow up as needed sooner with any concerns Coding Level of Care Code Est Pt Level 2 (28386) Diagnoses Umbilical mass R19.09
[2024-10-30 11:15] VITALS: BP 120/70; PULSE 63; BMI 30.5
--- OUTSIDE RECORDS SUMMARY | 2024-10-30 11:43 | XMS_ITS | Encounter Summary ---
Author Organization [employer] Address [address] [facility] [address] [place] [address] Care Team Providers Care Edge Grinder Name Role Phone Unavailable Primary Care Provider Unavailabl e Encounter Details Date Type Department Care Team (Latest Contact Info) Description 11/30/2020 Abstract [facility] CONVERSIONS Dental, Provider, DDS Social [...] as of this encounter Plan of Treatment Not on file documented as of this encounter Visit Diagnoses Not on filedocumented in this encounter
--- OUTSIDE RECORDS SUMMARY | 2024-10-30 11:43 | XMS_ITS | Clinical Summary ---
Author Organization [facility] Address [address] [address] Phone Care Team Providers Care Geospatial Information Scientist Name Role Phone Hung Montelongo MD Primary Care Provider [phone]- [phone] Allergies Active Allergy Reactions Criticality Noted Date [...] Melatonin 10 MG capsule Take by mouth Active nitrofurantoin (MACRODANTIN) 50 MG capsule TAKE 1 CAPSULE BY MOUTH ONCE W/ FOOD USE 30 MINS BEFORE OF AFTER SEXUAL ACTIVITY DIRECTED BY 5 Active pantoprazole (PROTONIX) 40 MG EC tablet TAKE ONE TABLET HALF AN HOUR BEFORE BREAKFAST 5 Active Active Problems Problem Noted Date Diagnosed Date Chronic kidney disease, stage 2 (mild) 2 Chronic kidney disease stage 3 11/23/2020 Essential hypertension 11/23/2020 Renal stone 11/23/2020 Resolved Problems Problem Noted Date Diagnosed Date Resolved Date Pain in toe 10/05/2017 11/23/2020 Paronychia 10/05/2017 11/23/2020 Encounters Date Type Department Care Team Description 08/29/2024 3:45 PM EDT Office Visit [facility] [address] [place] [address] Alejandro Benz [...] Visit [facility] [address] [place] [address] Alejandro Benz MD [address] [facility] [address] [place] [id number] Health Maintenance Due Date Last Done Comments [...] l Result from Last 3 Months Insurance [facility] Medicaid Care Teams Geospatial Information Scientist Relationship Specialty Start Date End Date Hung Montelongo MD [address] [place] [id number] PCP - General 05/11/20
== END 2024-10-30 11:20 | disposition home or self-care (01) ==
LOC: HO.HGS 10:59
PROVIDERS: PCP Internal Medicine
DX: R19.09 Other intra-abdominal and pelvic swelling, mass and lump (principal)
CPT/HCPCS: 99024

== ENCOUNTER → 2024-10-30 10:58 | Outpatient (BNVA) | payer OTHER, SELFPAY | PROVIDERS: PCP Internal Medicine | DX: Z48.815 Encounter for surgical aftercare following surgery on the digestive system (principal); R19.09 Other intra-abdominal and pelvic swelling, mass and lump | CPT/HCPCS: 99212 ==

== ENCOUNTER → 2024-10-31 08:42 | Outpatient (BNVA) | payer OTHER, SELFPAY | PROVIDERS: PCP Internal Medicine; Visit Provider Anesthesiology | DX: R35.0 Frequency of micturition (principal); N39.0 Urinary tract infection, site not specified; R32 Unspecified urinary incontinence; M46.1 Sacroiliitis, not elsewhere classified; M47.816 Spondylosis without myelopathy or radiculopathy, lumbar region; M53.3 Sacrococcygeal disorders, not elsewhere classified | CPT/HCPCS: 51798; 81003; 99212 ==

== ENCOUNTER 2024-10-31 09:03 | Outpatient (AMB) | payer OTHER, SELFPAY ==
--- NOTE | 2024-10-31 08:45 | MHC.OFFVIS ---
Vital Signs 10/31/24 08:46 Weight 172 lb 2 oz BP 126/74 Blood Pressure Location Lt brachial Position Sitting Respiration 18 Pulse 52 Pulse Oximetry (%) 100 Oxygen Delivery Method Room Air Intake Visit Reasons: S/p B/l SI Inj 09/27/24 Crochet Machine Operator Required: Yes Crochet Machine Operator Services: Crochet Machine Operator Present Crochet Machine Operator Name: [id number] Allergies acetaminophen Adverse Reaction (Intermediate, Verified 10/31/24 08:44) Liver problems atorvastatin Adverse Reaction (Intermediate, Verified 10/31/24 08:44) elevated LFTs rosuvastatin Adverse Reaction (Intermediate, Verified 10/31/24 08:44) elevated LFTs HPI Comments Details: Xenia is back in my office with complaints on lower back pain.. She completed 8 sessions of physical therapy she performed home exercise program as I instructed her to do. She continues home exercise program. Her pain not at all affected by physical therapy. In the past she received diagnostic sacroiliac joint injection, the pain relief was significant. She will scheduled for sacroiliac joint diagnostic injection this time however had to cancel because she went for surgery in 4 abdominal hernia. Now she is ready to go for the injection. I recommended her to stop Eliquis on night before the procedure. She will start Lovenox 80 mg on Monday, she will continue Lovenox every 12 hours for the next Monday and Monday as well as very early Monday morning before 07:00. On Monday she will received a procedure, she will hold Lovenox and Eliquis for next 24 hours and then Monday she will start her Eliquis again. This instructions were carefully explained to the patient. They also were dictated into the prescription of Lovenox I sent to her pharmacy. I explained to her not to fill up the script until we know the date of the procedure. She was under care of Joanna with sacroiliac joint problem and after that she was under my care, she received therapeutic sacroiliac joint injection on the right which gave her 50% pain improvement in 2021. After that she received diagnostic bilateral sacroiliac joint injection and unfortunately she was lost for the follow-up. Due to mental health crisis she was admitted to psychiatric facility and was not able to receive any injections. Now she is back requesting me to perform therapeutic sacroiliac joint injection. PFSH Medical History Pure hypercholesterolemia Left breast mass Pulmonary nodules Chronic kidney disease, stage III (moderate) Obesity (BMI 30-39.9) Renal cyst Diverticulosis Tubular adenoma Asthma Spondylosis of lumbar spine Sacroiliitis Dizziness of unknown etiology Chronic constipation Hx of schizophrenia Panic attacks PTSD (post-traumatic stress disorder) Dyspareunia Pyelonephritis Ingrown toenail Iron deficiency anemia Major depression, recurrent Anxiety Insomnia Tremor Orthostatic hypotension Incisional hernia without obstruction or gangrene Avascular necrosis of femoral head Bilateral carpal tunnel syndrome Peroneal neuropathy Lumbar degenerative disc disease Vitamin D deficiency GERD (gastroesophageal reflux disease) Migraine Hyperlipidemia Surgical History Hx of lithotripsy History of left nephrectomy (~1999) History of colonoscopy History of surgery Hx of cystoscopy History of bilateral breast reduction surgery History of hysterectomy History of cholecystectomy History of endoscopy (~06/2016) History of bladder repair surgery (~03/2015) S/P cystoscopy (~07/30/12) S/P panniculectomy History of hernia repair (~03/29/10) History of bladder surgery (~10/2009) History of gastric bypass (~2008) History of incisional hernia repair (~1999) Hx of umbilical hernia repair (~1999) S/P laparoscopic sleeve gastrectomy Family History Father Liver cancer Mother Breast cancer Sister Lung cancer Other Mental health problem Social History Household Members: Family Housing: House Are you a primary vision care associate to a significant other at home: No Do you presently have visiting nurse or other home services: No Alcohol intake: never Patient Tobacco Use Status: Never used Tobacco e-Cigarette/Vaping Use: Never Used Second Hand Smoke Exposure: No Advance Directives Date on File: 06/17/16 service: No Current occupational status: disabled Sexual orientation: Straight/Heterosexual Gender identity: Female Cognitive needs: No Hearing needs: No Vision needs: Yes Female Reproductive History Menstrual Age of Menarche: 13 Review of Systems Const All systems reviewed & are unremarkable except as noted in HPI and below Physical Exam Vital Signs: Last Vital Signs Pulse 52 10/31/24 08:46 Resp 18 10/31/24 08:46 BP 126/74 10/31/24 08:46 Pulse Ox 100 10/31/24 08:46 Oxygen Delivery Method Room Air 10/31/24 08:46 Const General: comfortable, no acute distress, well developed, alert and awake Eyes Pupils: Equal, round and reactive pupils present EOM: EOMs intact bilaterally Chest Chest palpation & inspection: normal inspection of the chest Resp Effort & Inspection: normal respiratory effort, able to speak in complete sentences, normal respiratory pattern, no audible wheezes and no cough Cardio Jugular venous distension: no JVD Back/Spine/Pelvis Other: ? SACROILIAC JOINT?tenderness to palpation right SIJ, + glenny, Delphine finger,Gaenslen's,Compression/distraction positive on right.? INSPECTION:?normal curvature of spine.? RANGE OF MOTION?decreased side bending on right.? PALPATION:?no vertebral spine tenderness,sacroiliac joint tenderness on right.? STRAIGHT LEG RAISING TEST:?positive at 45 degrees on right in L4/5 distribution.? MOTOR SYSTEM:?5/5 bilateral lower extremities.? SENSORY EXAM:?normal to light touch and pinprick in C5-T1 and L2-S1,no dysethesias, reported paresthesias right L4/5 distribution.? REFLEXES:?symmetrical 2+.? GAIT:?favoring affected side.? Neuro Cranial nerves: Yes Equal, round and reactive pupils present Assessment & Plan Assessment & Plan (1) Sacroiliitis: Code(s): M46.1 - Sacroiliitis, not elsewhere classified Category: Medical (2) Spondylosis of lumbar spine: Code(s): M47.816 - Spondylosis without myelopathy or radiculopathy, lumbar region Category: Medical (3) Sacroiliac joint dysfunction of both sides: Code(s): M53.3 - Sacrococcygeal disorders, not elsewhere classified Category: Medical Plan The patient canceled her sacroiliac joint injection bilateral diagnostic because she had surgery on abdominal hernia. Now we will reschedule it again. See discussion as above. See discussion about Lovenox and Eliquis as above. I will see this patient on injection and I will see her after the procedure. Patient Instructions: I here by testify that I spent 30 minutes in conversation with this patient as well as planning her care and organizing this note. Coding Level of Care Code Est Pt Level 4 (34736) Diagnoses Sacroiliitis M46.1 Spondylosis of lumbar spine M47.816 Sacroiliac joint dysfunction of both sides M53.3
[2024-10-31 08:46] VITALS: BP 126/74; PULSE 52; RESP 18; O2SAT 100
--- OUTSIDE RECORDS SUMMARY | 2024-10-31 08:49 | XMS_ITS | Encounter Summary ---
Author Organization [employer] Address [address] [facility] [address] [place] [address] Care Team Providers Care Photographic Engineer Name Role Phone Unavailable Primary Care Provider Unavailabl e Encounter Details Date Type Department Care Team (Latest Contact Info) Description 11/30/2020 Abstract [facility] CONVERSIONS Dental, Provider, DDS Social History [...]
--- OUTSIDE RECORDS SUMMARY | 2024-10-31 08:49 | XMS_ITS | Clinical Summary ---
Author Organization [facility] Address [address] [address] Phone Care Team Providers Care Junior Financial Analyst Name Role Phone Hung Montelongo MD Primary Care Provider +1- [phone] Allergies Active Allergy Reactions Criticality Noted Date [...] Visit [facility] [address] [place], [place] [address] Alejandro Benz [...] Visit [facility] [address] [place] [address] Alejandro Benz MD [address] [facility] [address] [place] [phone] Health Maintenance Due Date Last Done Comments [...] l Result from Last 3 Months Insurance [facility] Medicaid Care Teams Junior Financial Analyst Relationship Specialty Start Date End Date Hung Montelongo MD [address] [place] [id number] PCP - General 05/11/20
== END 2024-10-31 09:03 | disposition home or self-care (01) ==
PROVIDERS: PCP Internal Medicine; Visit Provider Anesthesiology
DX: M46.1 Sacroiliitis, not elsewhere classified (principal); M47.816 Spondylosis without myelopathy or radiculopathy, lumbar region; M53.3 Sacrococcygeal disorders, not elsewhere classified
CPT/HCPCS: 99214

== ENCOUNTER 2024-10-31 12:06 | Outpatient (AMB) | payer OTHER, SELFPAY ==
--- NOTE | 2024-10-31 13:10 | MHC.OFFVIS ---
Intake Visit Reasons: 4m/recurrent UTI Intake Note: Patient presents today for follow up on: Recurrent UTI Urology Medications: Estrace Cream Antibiotic Allergy: None Blood Thinner: None PVR: 0ml's Shopfitter Required: Yes Shopfitter Services: Shopfitter Present Shopfitter Name: Fely Roman Accompanied by: Self / Same As Patient Allergies acetaminophen Adverse Reaction (Intermediate, Verified 10/31/24 13:40) Liver problems atorvastatin Adverse Reaction (Intermediate, Verified 10/31/24 13:40) elevated LFTs rosuvastatin Adverse Reaction (Intermediate, Verified 10/31/24 13:40) elevated LFTs Medication List - Last Reconciled 10/31/24 by ANNA Hughes albuterol sulfate 90 mcg/actuation (Ventolin HFA) 2 puffs inhalation Q6H PRN 30 days apixaban (Eliquis) 5 mg PO BID 30 days bisacodyl (Dulcolax (bisacodyl)) 10 mg (2 x 5 mg) PO BEDTIME blood pressure monitor As directed cholecalciferol (vitamin D3) (Vitamin D3) 25 mcg PO DAILY 90 days [CPAP device and all related supplies As directed] docusate sodium 100 mg PO DAILY enoxaparin (Lovenox) 80 mg (0.8 mL) subcut Q12H 5 days erythromycin 0.5 inches ophthalmic (eye) BID 5 days famotidine 20 mg PO BEDTIME furosemide 20 mg PO QAM PRN gabapentin 800 mg PO TID 30 days hydrocortisone 2.5% (Proctosol HC) 1 appl OR BID-QID PRN ibuprofen 600 mg PO Q6H PRN linaclotide (Linzess) 290 mcg PO QAM lorazepam 1 mg PO BID PRN 30 days magnesium citrate 150 mL PO DAILY PRN meclizine 25 mg PO TID PRN 30 days melatonin 10 mg (2 x 5 mg) PO BEDTIME PRN 30 days midodrine 10 mg PO TID 30 days nitrofurantoin mg PO oxycodone 5 mg PO Q4H PRN pantoprazole 40 mg PO QAM topiramate 25 mg PO DAILY tramadol 100 mg (2 x 50 mg) PO Q8H PRN 30 days verapamil 40 mg PO BID HPI Comments Details: Xenia is a very pleasant 53-year-old Cook Islander-speaking female patient of Dr. Montelongo. She has a past medical history of obesity, renal cysts, diverticulosis, asthma, spondylosis of lumbar spine, dizziness of unknown etiology, chronic constipation, schizophrenia, stage 3 chronic kidney disease, panic attacks, PTSD, obstructive sleep apnea, major depression, anxiety, insomnia, tremors, vitamin-D deficiency, GERD, migraines, and hyperlipidemia. She presents to the office today for follow-up of her nephrolithiasis and recurrent urinary tract infections. In discussion with the patient today she reports to be doing and feeling well. She denies having had any urinary tract infections and or UTI like symptoms since her last office visit here. Of note, patient underwent an office cystoscopy 06/[address] Boo Mayer cystoscopy findings no suspicious bladder lesions were visualized. She reports compliance with Estrace cream as prescribed. Previous urine cultures are as follows: 02/17, 04/19, 05/21, 10/20, 04/21, 05/23, 06/23, 08/21, 10/21, and 02/20, 01/22, 02/21, 03/24, 05/25:Positive for E coli 08/22: Positive for Klebsiella pneumoniae 09/22: Enterococcus faecalis & Lactobacillus species Microgen 01/22: E coli, Enterococcus faecalis, prevotella bivia, and gardnerella vaginalis. Retroperitoneal ultrasound 03/24 Left kidney absent/removed. Right kidney with multiple cysts seen. Multiple right renal cysts. Right upper pole 5.6 cm, mid pole 3.2 cm, lower pole 3.9 cm with septations small 2-3 mm nonobstructing right renal calculus. She does continue to report episodes of mixed urinary incontinence. She reports utilizing 3-4 Daphney pads per day. She does have a previous history of 4 vaginal deliveries. We did discussed potential causes of recurrent urinary tract infections as well as mixed urinary incontinence. We discussed further treatment options and risks and benefits of these treatment options. She discusses her reluctant see and taking medications as she feels she already takes a lot of medications. We did discussed pelvic floor therapy however she does not wish to proceed with pelvic floor therapy. Information provided regarding in office urodynamics. PVR 0 mL. She denies hematuria, changes to urinary stream, flank pain, fever, and or chills. She otherwise offers no other issues or concerns at this time. [facility] Medical History Pure hypercholesterolemia Left breast mass Pulmonary nodules Chronic kidney disease, stage III (moderate) Obesity (BMI 30-39.9) Renal cyst Diverticulosis Tubular adenoma Asthma Spondylosis of lumbar spine Sacroiliitis Dizziness of unknown etiology Chronic constipation Hx of schizophrenia Panic attacks PTSD (post-traumatic stress disorder) Dyspareunia Pyelonephritis Ingrown toenail Iron deficiency anemia Major depression, recurrent Anxiety Insomnia Tremor Orthostatic hypotension Incisional hernia without obstruction or gangrene Avascular necrosis of femoral head Bilateral carpal tunnel syndrome Peroneal neuropathy Lumbar degenerative disc disease Vitamin D deficiency GERD (gastroesophageal reflux disease) Migraine Hyperlipidemia Surgical History Hx of lithotripsy History of left nephrectomy (~1999) History of colonoscopy History of surgery Hx of cystoscopy History of bilateral breast reduction surgery History of hysterectomy History of cholecystectomy History of endoscopy (~06/2016) History of bladder repair surgery (~03/2015) S/P cystoscopy (~07/30/12) S/P panniculectomy History of hernia repair (~03/29/10) History of bladder surgery (~10/2009) History of gastric bypass (~2008) History of incisional hernia repair (~1999) Hx of umbilical hernia repair (~1999) S/P laparoscopic sleeve gastrectomy Family History Father Liver cancer Mother Breast cancer Sister Lung cancer Other Mental health problem Social History Household Members: Family Housing: House Are you a primary care attendant to a significant other at home: No Do you presently have visiting nurse or other home services: No Alcohol intake: never Patient Tobacco Use Status: Never used Tobacco e-Cigarette/Vaping Use: Never Used Second Hand Smoke Exposure: No Advance Directives Date on File: 06/17/16 service: No Current occupational status: disabled Sexual orientation: Straight/Heterosexual Gender identity: Female Cognitive needs: No Hearing needs: No Vision needs: Yes Female Reproductive History Menstrual Age of Menarche: 13 Review of Systems Const Reports no additional complaints Eyes Reports no additional complaints ENT Reports no additional complaints Card Reports as per HPI Resp Reports as per HPI GI Reports as per HPI Reports as per [facility] Musc Reports as per [facility] Neuro Reports as per [facility] Psych Reports as per HPI Physical Exam Const General: cooperative, healthy appearing, comfortable, no acute distress, well developed, alert and awake Orientation/consciousness: patient oriented x3 Limitations: language barrier HEENT Head: Yes normal to inspection, Yes normocephalic and Yes atraumatic Ears: hearing grossly normal bilaterally Eyes General: appearance normal, both eyes and all related structures Neck Neck: Yes normal visual inspection and Yes trachea midline Chest Chest palpation & inspection: normal inspection of the chest Resp Effort & Inspection: normal respiratory effort and able to speak in complete sentences Cardio Rate: regular rate GI Inspection: Yes normal to inspection General: Yes no CVA tenderness Back/Spine/Pelvis Back: no CVA tenderness Skin General skin exam: no rashes or lesions noted Neuro General: patient oriented x3 Extrem General: Yes normal to inspection Psych Appearance: grossly normal and well kempt Mental Status: mental status grossly normal Speech and movement: Normal speech and movement present and Clear speech present Affect: normal affect Attitude: cooperative Thought process: Normal thought process present Thought content: Normal thought content present Insight: Fair insight present (Psych) Judgement: Fair judgement present (Psych) Office Procedures Post Void Residual Post Residual Void Post Void Residual (PVR): 0 [id number] Void Residual by ultrasound Results AMB Urinalysis, Automated UA Leukoctes 0 Asad/uL Last Edit by Jessica Juarez [facility] on 10/31/24 13:26 UA Nitrite Last Edit by Jessica Juarez [facility] on 10/31/24 13:26 UA Urobilinogen 0.2 mg/dL Last Edit by Jessica Juarez [facility] on 10/31/24 13:26 UA Protein 15 mg/dL Last Edit by Jessica Juarez [facility] on 10/31/24 13:26 UA pH 6.0 Last Edit by Jessica Juarez [facility] on 10/31/24 13:26 UA Blood 0 Montrell/uL Last Edit by Jessica Juarez [facility] on 10/31/24 13:26 UA Specific [place] 1.015 Last Edit by Jessica Juarez [facility] on 10/31/24 13:26 UA Ketone Last Edit by Jessica Juarez [facility] on 10/31/24 13:26 UA Bilirubin 1 mg/dL Last Edit by TAVO Diaz on 10/31/24 13:26 UA Glucose 0 mg/dL Last Edit by TAVO Diaz on 10/31/24 13:26 Results Reviewed Results Reviewed: Laboratory Last Values Urine pH (Auto) 6.0 10/31/24 13:24 Specific [place] (Auto) 1.015 10/31/24 13:24 Urine Protein (Auto) 15 mg/dL 10/31/24 13:24 Glucose (UA)(Auto) 0 mg/dL 10/31/24 13:24 Urine Blood (Auto) 0 Montrell/uL 10/31/24 13:24 Urine Bilirubin (Auto) 1 mg/dL 10/31/24 13:24 Urine Urobilinogen (Auto) 0.2 mg/dL 10/31/24 13:24 Leukocyte Esterase (Auto) 0 Asad/uL 10/31/24 13:24 Assessment & Plan Assessment & Plan (1) Urinary frequency: Code(s): R35.0 - Frequency of micturition Category: Medical (2) Recurrent urinary tract infection: Code(s): N39.0 - Urinary tract infection, site not specified Category: Medical (3) Urinary incontinence: Code(s): R32 - Unspecified urinary incontinence Category: Medical Plan In office urinalysis results reviewed with the patient today; as noted above. PVR 0 mL. She currently denies any UTI like symptoms. We discussed potential causes of recurrent urinary tract infections as well as mixed urinary incontinence; we discussed further treatment options and risks and benefits of these treatment options. Continue Estrace cream as discussed and prescribed. Will schedule for in office urodynamics. Follow-up per doctor's orders; or sooner with any issues, concerns, and or questions. Orders: Orders AMB Urinalysis Automated Today Z13.9 - Encounter for screening, unspecified AMB Post Void Residual by ultrasound Today R39.9 - Unspecified symptoms and signs involving the genitourinary system Patient Instructions: The patient had an opportunity to ask questions regarding the treatment plan. All questions were answered. Physical exam, labs, and imaging were discussed and reviewed in detail. As well as risks, benefits, and discussion of treatment choices. No major barriers to understanding were identified. The patient expressed understanding and agreement with the above treatment plan. The patient was made aware they should contact our office by phone for worsening of their current condition, the appearance of new symptoms, or with any questions or concerns. Compliance is encouraged with any medications and follow up testing that is ordered. It is a privilege to be allowed the opportunity to participate in? your urological care.? Again, if you have any questions or concerns If you have any questions or concerns please do not hesitate to contact me. The office is [phone]. This note is constructed using voice recognition software. While every effort has been made to ensure accuracy life sciences teacher errors may have been included. Yours sincerely, ANNA Hughes Coding Level of Care Code Est Pt Level 3 (74773) Complex EM visit Add On G2211 Diagnoses Urinary frequency R35.0 Recurrent urinary tract infection N39.0 Urinary incontinence R32 CPT Codes Post Residual Void - PVR CPT Code: 78154-Epxp Void Residual by ultrasound ([id number])
== END 2024-10-31 13:57 | disposition home or self-care (01) ==
LOC: HO.HUSH 12:07
PROVIDERS: PCP Internal Medicine; Visit Provider Nurse Practitioner Family
DX: R35.0 Frequency of micturition (principal); N39.0 Urinary tract infection, site not specified; R32 Unspecified urinary incontinence; Z13.9 Encounter for screening, unspecified
CPT/HCPCS: 99213; G2211

== ENCOUNTER 2024-11-13 10:15 | Outpatient (AMB) | payer OTHER, SELFPAY ==
--- NOTE | 2024-11-13 10:17 | MHC.OFFVIS ---
Vital Signs 11/13/24 10:22 Height 5 ft 3 in Weight 175 lb BMI 31.0 BP 138/66 Blood Pressure Location Lt brachial Position Sitting Pulse 62 Intake Visit Reasons: S/P Supraumbilical hernia Intake Note: Patient here for 2 wk follow up s/p removal of periumbilical mass. Patient c/o: admits to continued pain in the incision above the abdomen Electric Motor Repair Supervisor Required: Yes Electric Motor Repair Supervisor Language: President & Ceo Name: Deya LAMB Information Interpreted: non-clinical & clinical Society Editor: Society Editor Present Accompanied by: Self / Same As Patient Allergies acetaminophen Adverse Reaction (Intermediate, Verified 10/31/24 13:40) Liver problems atorvastatin Adverse Reaction (Intermediate, Verified 10/31/24 13:40) elevated LFTs rosuvastatin Adverse Reaction (Intermediate, Verified 10/31/24 13:40) elevated LFTs HPI HPI S/P Supraumbilical hernia: Details: She reports continued abdominal pain, 7/10 around the incision site. She has been using tremor although which is prescribed by primary care however this does not help her pain very much. She can not correlate this to ambulation or food. She denies fevers. Her bowel habits have been regular, at baseline, using Colace daily. She does report intermittent dizziness, for which she is following up with her primary care on the . [facility] Medical History Pure hypercholesterolemia Left breast mass Pulmonary nodules Chronic kidney disease, stage III (moderate) Obesity (BMI 30-39.9) Renal cyst Diverticulosis Tubular adenoma Asthma Spondylosis of lumbar spine Sacroiliitis Dizziness of unknown etiology Chronic constipation Hx of schizophrenia Panic attacks PTSD (post-traumatic stress disorder) Dyspareunia Pyelonephritis Ingrown toenail Iron deficiency anemia Major depression, recurrent Anxiety Insomnia Tremor Orthostatic hypotension Incisional hernia without obstruction or gangrene Avascular necrosis of femoral head Bilateral carpal tunnel syndrome Peroneal neuropathy Lumbar degenerative disc disease Vitamin D deficiency GERD (gastroesophageal reflux disease) Migraine Hyperlipidemia Surgical History Hx of lithotripsy History of left nephrectomy (~1999) History of colonoscopy History of surgery Hx of cystoscopy History of bilateral breast reduction surgery History of hysterectomy History of cholecystectomy History of endoscopy (~06/2016) History of bladder repair surgery (~03/2015) S/P cystoscopy (~07/30/12) S/P panniculectomy History of hernia repair (~03/29/10) History of bladder surgery (~10/2009) History of gastric bypass (~2008) History of incisional hernia repair (~1999) Hx of umbilical hernia repair (~1999) S/P laparoscopic sleeve gastrectomy Family History Father Liver cancer Mother Breast cancer Sister Lung cancer Other Mental health problem Social History Household Members: Family Housing: House Are you a primary lawn care professional to a significant other at home: No Do you presently have visiting nurse or other home services: No Alcohol intake: never Patient Tobacco Use Status: Never used Tobacco e-Cigarette/Vaping Use: Never Used Second Hand Smoke Exposure: No Advance Directives Date on File: 06/17/16 service: No Current occupational status: disabled Sexual orientation: Straight/Heterosexual Gender identity: Female Cognitive needs: No Hearing needs: No Vision needs: Yes Female Reproductive History Menstrual Age of Menarche: 13 Review of Systems Const All systems reviewed & are unremarkable except as noted in HPI and below Physical Exam Vital Signs: Last Vital Signs Pulse 62 11/13/24 10:22 BP 138/66 11/13/24 10:22 BMI result Body Mass Index 31.0 Const General: comfortable and no acute distress Orientation/consciousness: patient oriented x3 Resp Effort & Inspection: normal respiratory effort and able to speak in complete sentences GI Other: No hernia appreciated with Valsalva in the umbilical area. Incision site appears to be well healed no surrounding erythema. Mild ecchymosis on the left lateral side of the incision site Inspection: No distended Palpation (GI): Soft to palpation and Tenderness to palpation present (GI) (Tender around umbilicus, epigastric area) Neuro General: patient oriented x3 Assessment & Plan Assessment & Plan (1) Umbilical mass: Comment: s/p removal Code(s): R19.09 - Other intra-abdominal and pelvic swelling, mass and lump Category: Medical (2) Abdominal pain: Code(s): R10.9 - Unspecified abdominal pain Category: Medical Qualifiers: Abdominal location: periumbilical Qualified Code(s): R10.33 - Periumbilical pain Plan 53-year-old female status post abdominal mass excision reporting to the office for one-month follow-up. Patient has been having continued 7/10 pain that is present every day. Is minimally improved with oral tramadol and OTC Tylenol. She has not had episodes of nausea or vomiting. Her her bowel function is at baseline using daily Colace. Her pain is not associated with eating, bowel movements or ambulation. On exam she is mildly tender around the umbilicus, and in the epigastric area. The incision site continues to appear well healed. It is tender there is mild induration consistent with postsurgical changes. I do not have any concern for infection currently. I am unsure of etiology at this point, it may be related to her abdominoplasty. I recommended that the patient follow up with primary care regarding her dizziness, I would like to see her in 1 month for follow-up if patient is continuing to have pain we will likely get a CAT scan of the abdomen and pelvis to further evaluate the etiology of this continued pain. Coding Level of Care Code Est Pt Level 3 (88206) Diagnoses Umbilical mass R19.09 Periumbilical abdominal pain R10.33 Abdominal location: periumbilical
[2024-11-13 10:22] VITALS: BP 138/66; PULSE 62; BMI 31.0
--- OUTSIDE RECORDS SUMMARY | 2024-11-13 10:47 | XMS_ITS | Encounter Summary ---
Author Organization [employer] Address [address] [facility] [facility] [address] [place] [address] Care Team Providers Care Hydroelectric Plant Technician Name Role Phone Unavailable Primary Care Provider Unavailabl e Encounter Details Date Type Department Care Team (Latest Contact Info) Description 11/30/2020 Abstract [facility] CONVERSIONS Dental, Provider, DDS Social History Tobacco [...]
--- OUTSIDE RECORDS SUMMARY | 2024-11-13 10:48 | XMS_ITS | Clinical Summary ---
Author Organization [facility] Address [address] [address] Phone Care Team Providers Care Photographic Processor Name Role Phone Hung Montelongo MD Primary Care Provider +1- [phone] Allergies Active Allergy Reactions Criticality Noted Date [...] Visit [facility] [address] [place], [place] [address] Alejandro Benz [...] Visit [facility] [address] [place] [address] Alejandro Benz MD [id number] [facility] [address] [place] [phone] Health Maintenance Due Date Last Done Comments Breast Cancer Screening 1970 Hepatitis B Vaccine (1 of 3 - 19+ 3-dose series) 11/17 Pneumococcal Vaccine: 50+ Years (1 of 2 - PCV) 989 Colorectal Cancer Screening: Annual FOBT 2018 Colorectal Cancer Screening: Colonoscopy 2018 Colorectal Cancer Screening: Sigmoidoscopy 2018 Influenza Vaccine (#1) 2024 Procedures Procedure Name Priority Date/Time Associated [...] l Result from Last 3 Months Insurance [facility] Medicaid Care Teams Photographic Processor Relationship Specialty Start Date End Date uHng Montelongo MD [address] [place] [id number] PCP - General 05/11/20
== END 2024-11-13 10:41 | disposition home or self-care (01) ==
LOC: HO.HGS 10:15
PROVIDERS: PCP Internal Medicine
DX: R19.09 Other intra-abdominal and pelvic swelling, mass and lump (principal); R10.33 Periumbilical pain; Z09 Encounter for follow-up examination after completed treatment for conditions other than malignant neoplasm
CPT/HCPCS: 99024

== ENCOUNTER → 2024-11-13 10:15 | Outpatient (BNVA) | payer OTHER, SELFPAY | PROVIDERS: PCP Internal Medicine | DX: R10.33 Periumbilical pain (principal); Z98.890 Other specified postprocedural states | CPT/HCPCS: 99212 ==

== ENCOUNTER 2024-11-14 13:41 | Outpatient (REF) | payer OTHER, SELFPAY ==
--- NOTE | ~2024-11-14 | CT_ITS ---
EXAMINATION: CT CHEST WITH IV CONTRAST INDICATION: R91.8 - Other nonspecific abnormal finding of lung field COMPARISON: Comparison is made with the prior examination dated 02/01/2024. TECHNIQUE: Helical CT scan of the chest was performed following administration of intravenous contrast. Coronal and sagittal reformatted images were generated and reviewed. This CT exam was performed with one or more of the following dose reduction techniques: automated exposure control, adjustment of the mA and/or kV according to patient size, use of iterative reconstruction technique. DLP: 145 mGy-cm CHEST: THYROID: There is a 1.3 cm nodule in the left thyroid lobe, previously biopsied under ultrasound guidance 07/24/2024. LUNGS: There are punctate granulomas in the right upper lobe (series 4, image 39) and in the right lower lobe (series 4, image 93). The previously seen ground glass opacity in the right upper lobe is no longer identified. No new nodules are identified. MEDIASTINUM: There is no mediastinal lymphadenopathy. MARK: There is no hilar lymphadenopathy. CARDIOVASCULATURE: The heart is normal in size. There is no pericardial effusion. The thoracic aorta is normal in caliber. 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 DEGREE OF CORONARY CALCIFICATION: mild PLEURA: There is no pleural effusion. No pneumothorax. MAIN AIRWAYS: The mainstem bronchi and proximal branches are patent. AXILLA: There is no axillary lymphadenopathy. BONES AND SOFT TISSUES: Unremarkable UPPER ABDOMEN: The visualized portions of the liver, spleen, and adrenals are unremarkable. There are postsurgical changes involving the stomach. There is a 4.9 cm cyst at the upper pole of the right kidney. The patient is status post left nephrectomy. CT/CT chest w IV con IMPRESSION: Punctate granulomas in the right upper and lower lobes. No suspicious pulmonary nodules are identified. Electronically signed by: Vincenzo Betancourt MD 11/14/2024 03:10 PM EDT
--- OUTSIDE RECORDS SUMMARY | 2024-11-14 14:23 | XMS_ITS | Encounter Summary ---
Author Organization [employer] Address [address] [facility] [address] [place] [address] Care Team Providers Care Principal Bioinformatics Specialist Name Role Phone Unavailable Primary Care Provider Unavailabl e Encounter Details Date Type Department Care Team (Latest Contact Info) Description 11/30/2020 Abstract [facility] CONVERSIONS Dental, Provider, DDS Social History [...]
--- OUTSIDE RECORDS SUMMARY | 2024-11-14 14:23 | XMS_ITS | Clinical Summary ---
Author Organization [facility] Address [address] [address] Phone Care Team Providers Care Bricklayer Supervisor Name Role Phone Hung Montelongo MD Primary Care Provider +1- [phone] Allergies Active Allergy Reactions Criticality Noted Date [...] Visit [facility] [address] [place], [place] [address] Alejandro Benz [...] Visit [facility] [address] [place] [address] Alejandro Benz MD [id number] [facility] [address] [place] [phone] Health Maintenance Due Date Last Done Comments [...] l Result from Last 3 Months Insurance [facility] Medicaid Care Teams Bricklayer Supervisor Relationship Specialty Start Date End Date Hung Montelongo MD [address] [place] [id number] PCP - General 05/11/20
[2024-11-14] MEDS: iohexoL 350 MG/ML 100 ML INFUS..BTL IV (14:59)
[2024-11-14 15:46] LABS: Creatinine POC 1.2 mg/dL (0.5-1.4); GFR POC 52
== END 2024-11-14 13:42 | disposition home or self-care (01) ==
LOC: HO.CT 13:41
PROVIDERS: PCP Internal Medicine; Visit Provider Hospitalist
DX: R91.8 Other nonspecific abnormal finding of lung field (principal)
CPT/HCPCS: 71260; 82565; Q9967

== ENCOUNTER → 2024-11-14 13:43 | Outpatient (BNV) | payer OTHER, SELFPAY | PROVIDERS: PCP Internal Medicine; Visit Provider Radiology Diagnostic Radiology | DX: R91.8 Other nonspecific abnormal finding of lung field (principal) | CPT/HCPCS: 71260 ==

== ENCOUNTER 2024-11-20 | Outpatient (REF) | payer OTHER, SELFPAY ==
--- OUTSIDE RECORDS SUMMARY | 2024-11-21 07:53 | XMS_ITS | Encounter Summary ---
Author Organization [employer] Address [address] [facility] [address] [place] [address] Care Team Providers Care Certified Breastfeeding Educator Name Role Phone Unavailable Primary Care Provider Unavailabl e Encounter Details Date Type Department Care Team (Latest Contact Info) Description 11/30/2020 Abstract [facility] CONVERSIONS Dental, Provider, DDS Social History Tobacco [...] Description 11/21/2024 8:00 AM EDT Office Visit [facility] ADULT DENTAL [address] [place] [address] Chari Greenwood [address] [place] [address] Arrived documented as of this encounter Visit Diagnoses Not on filedocumented in this encounter
--- OUTSIDE RECORDS SUMMARY | 2024-11-21 07:53 | XMS_ITS | Clinical Summary ---
Author Organization [facility] Address [address] [address] Phone Care Team Providers Care Lime Mixer Tender Name Role Phone Hung Montelongo MD Primary Care Provider [phone]- [phone] Allergies Active Allergy Reactions Criticality Noted Date [...] Visit [facility] [address] [place], [place] [address] Alejandro Benz [...] Visit [facility] [address] [place] [address] Alejandro Benz MD [address] [facility] [address] [place] [address] Health Maintenance Due Date Last Done Comments Breast Cancer Screening 1970 Hepatitis B Vaccine (1 of 3 - 19+ 3-dose series) 11/17 Pneumococcal Vaccine: 50+ Years (1 of 2 - PCV) 989 Colorectal Cancer Screening: Annual FOBT 2018 Colorectal Cancer Screening: Colonoscopy 2018 Colorectal Cancer Screening: Sigmoidoscopy 2018 Influenza Vaccine (#1) [address] [place] [id number] [facility] Medicaid Care Teams Lime Mixer Tender Relationship Specialty Start Date End Date Hung Montelongo MD [address] [place] [address] PCP - General 05/11/20
--- OUTSIDE RECORDS SUMMARY | 2024-11-21 07:53 | XMS_ITS | Clinical Summary ---
Author Organization [facility] Address [address] [place] [phone] Phone Care Team Providers Care Irs Agent Name Role Phone Hung Montelongo MD Primary Care Provider [phone] [phone] Allergies No known active allergies Medications VENTOLIN HFA 90 mcg/actuation inhaler TAKE 2 PUFFS INHALED EVERY 6 HOURS NEEDED FOR SHORTNESS OF BREATH OR WHEEZING FOR 30 DAYS 3 Active VITAMIN D3 25 mcg (1,000 unit) capsule TOME WU C PSULA TODOS LOS D 4 Active ferrous sulfate 325 mg (65 mg [place] iron) tablet TOME WU TABLETA TODOS LOS [...] topic Medical Devices Not on file Insurance [facility] Care Teams Irs Agent Relationship Specialty Start Date End Date Hung Montelongo MD [address] [place] [address] [place] [address] PCP - General Internal Medicine 07/24/23 Additional Source Comments The information contained in this document represents components of the legal health record. It is not the complete legal health record.[facility]
[2024-11-21 08:15] LABS: Appearance Urine Clear; Glucose Urine UA Negative (Negative); PH 5.5 (5.0-9.0); Specific Gravity - Urine 1.015 (1.005-1.025); UMIC TRIGGER UACC YES
== END 2024-11-20 00:01 | disposition home or self-care (01) ==
LOC: HO.LNP
PROVIDERS: Visit Provider Internal Medicine
DX: R30.0 Dysuria (principal)
CPT/HCPCS: 81001

== ENCOUNTER 2024-11-20 11:20 | Outpatient (REF) | payer OTHER, SELFPAY ==
[2024-11-20 11:35] LABS: MANUAL DIFF FLAG NO
--- OUTSIDE RECORDS SUMMARY | 2024-11-20 12:21 | XMS_ITS | Clinical Summary ---
Author Organization [facility] Address [address] [place] [phone] Phone Care Team Providers Care Hospital Product Specialist Name Role Phone Hung Montelongo MD Primary Care Provider [phone] [phone] Allergies No known active allergies Medications VENTOLIN HFA 90 mcg/actuation inhaler TAKE 2 PUFFS INHALED EVERY 6 HOURS NEEDED FOR SHORTNESS OF BREATH OR WHEEZING FOR 30 DAYS 3 Active VITAMIN D3 25 mcg (1,000 unit) capsule TOME WU C PSULA TODOS LOS D 4 Active ferrous sulfate 325 mg (65 mg [place] iron) tablet TOME WU TABLETA TODOS LOS D Active gabapentin (NEURONTIN) 400 MG capsule TOME 2 C PSULAS POR V A ORAL RACHAEL VECES AL D A FOR 30 DAYS Active LORazepam (ATIVAN) 1 MG tablet TOME WU TABLETA DOS VECES AL D A CUANDO SEA NECESARIO 3 Active midodrine (PROAMATINE) 10 MG tablet TAKE 1 TABLET 3 TIMES A DAY DO NOT GIVE LAST DOSE OF DAY AFTER 6PM OR WITHIN 4 HRS OF BEDTIME 4 Active mirtazapine (REMERON) 15 MG tablet Take 15 mg by mouth nightly at bedtime. 4 Active meclizine (ANTIVERT) 25 mg tablet Take 25 mg by mouth 3 (three) times a day as needed. 4 Active omeprazole (PRILOSEC) 20 MG capsule Take 20 mg by mouth daily. Active oxyBUTYnin (DITROPAN-XL) 5 MG 24 hr tablet Take 5 mg by mouth daily. Active rosuvastatin (CRESTOR) 5 MG tablet Take 5 mg by mouth daily. 4 Active topiramate (TOPAMAX) 50 MG tablet Take 50 mg by mouth daily. Active traMADoL (ULTRAM) 50 mg tablet Take 50 mg by mouth every 6 (six) hours as needed. Active Active Problems Problem Noted Date Diagnosed Date Skin laxity 10/03/2023 Family History Relation Status Comments Father Mother Social History Tobacco Use Types Packs/Day Years Used Date Smoking Tobacco: Never Tobacco Cessation:Counseling Given: Not Answered Alcohol Use Standard Drinks/Week Comments Not Currently 0 (1 standard drink = 0.6 oz pur e alcohol) Education Answer Date Recorded Are you interested in more education? Not on alvino e 07/24/2023 Are you concerned about learning? Not on file 07/24/2023 No 07/24/2023 No 07/24/2023 Digital Access Answer Date Recorded No 07/24/2023 No 07/24/2023 Reliable internet access at home? Not on file 07/24/2023 Device with a working camera? Not on file Comments Unknown Sex and Gender Information Value Date Recorded Sex Assigned at Not on file Legal Sex Female 7:08 PM EST Gender Identity Not on file Sexual Orientation Not on file Last Filed Vital Signs Vital Sign Reading Time Taken Comments Blood Pressure 115/72 11/23/2023 1:34 PM EDT Pulse 53 11/23/2023 1:34 PM EDT Temperature - - Respiratory Rate - - Oxygen Saturation - - Inhaled Oxygen Concentration - - Weight 74.4 kg (164 lb) 11/23/2023 1:34 PM EDT Height 157.5 cm (5' 2 ) 11/23/2023 1:34 PM EDT Body Mass Index 30 11/23/2023 1:34 PM EDT Plan of Treatment Health Maintenance Due Date Last Done Comments LIPID PANEL 1969 DEPRESSION SCREENING 1981 HEPATITIS C SCREENING 11/18/1987 HIV ONE-TIME SCREENING (18-65 YEARS) 11/18/1987 PAP SMEAR 1990 SMOKING STATUS SCREENING (Once After 26 Yrs) 11/18/1995 SCREENING FOR DIABETES 2004 MAMMOGRAM 2009 COLOGUARD 2014 COLONOSCOPY 2014 COLORECTAL CANCER SCREENING 2014 FIT TEST 2014 FOBT 2014 SIGMOIDOSCOPY 2014 VIRTUAL COLONOSCOPY 2014 PNEUMOCOCCAL VACCINES (50+ years) (2 of 2 - PCV) 11/18/2019 11/09/2007 COVID-19 VACCINE ( - 2023- season) 2023 04/12/2023, 01/11/2022, 03/01/2021, Additional history exists Adult Td,Tdap Booster 04/09/2029 04/09/2019, 009 ZOSTER VACCINES Completed 04/03/2022, 02/01/2022 HEPATITIS A VACCINES Aged Out No long er eligible based on patient's age to complete this topic HIB VACCINES Aged Out No longer eligi ble based on patient's age to complete this topic MENINGOCOCCAL VACCINES (ACWY) Aged Out No longer eligible based on patient's age to complete this topic MENINGOCOCCAL VACCINES (B) Aged Out N o longer eligible based on patient's age to complete this topic Medical Devices Not on file Insurance [facility] Care Teams Hospital Product Specialist Relationship Specialty Start Date End Date Hung Montelongo MD [address] [place] [address] [place] [address] PCP - General Internal Medicine 07/24/23 Additional Source Comments The information contained in this document represents components of the legal health record. It is not the complete legal health record.[facility]
--- OUTSIDE RECORDS SUMMARY | 2024-11-20 12:21 | XMS_ITS | Clinical Summary ---
Author Organization [facility] Address [address] [address] Phone Care Team Providers Care Store Promoter Name Role Phone Hung Montelongo MD Primary Care Provider [phone]- [phone] Allergies Active Allergy Reactions Criticality Noted Date [...] Visit [facility] [address] [place], [place] [address] Alejandro Benz [...] Visit [facility] [address] [place] [address] Alejandro Benz MD [address] [facility] [address] [place] [phone] Health Maintenance Due Date Last Done Comments [...] l Result from Last 3 Months Insurance [facility] Medicaid Care Teams Store Promoter Relationship Specialty Start Date End Date Hung Montelongo MD [address] [place] [address] PCP - General 05/11/20
--- OUTSIDE RECORDS SUMMARY | 2024-11-20 12:21 | XMS_ITS | Encounter Summary ---
Author Organization [employer] Address [address] [facility] [address] [place] [address] Care Team Providers Care Lead Neurodiagnostic Technologist Name Role Phone Unavailable Primary Care Provider Unavailabl e Encounter Details Date Type Department Care Team (Latest Contact Info) Description 11/30/2020 Abstract [facility] CONVERSIONS Dental, Provider, DDS Social History Tobacco [...] Care Team (Late st Contact Info) Description 11/21/2024 8:00 AM EDT Office Visit [facility] ADULT DENTAL [address] [place] [address] Chari Greenwood [address] [place] [address] documented as of this encounter Visit Diagnoses Not on filedocumented in this encounter
[2024-11-20 12:24] LABS: Hematocrit 41.2 % (37.0-47.0); Hemoglobin 13.6 g/dl (12.0-16.0); Imm Gran Abs Auto 0.01 X10*3/uL (0.00-0.03); Imm Gran Pct Auto 0.2 % (0.0-0.4); Lymphocytes Absolute Auto 1.9 X10*3/uL (1.2-4.9); Mean Corpuscular HGB Conc 33.0 g/dl (31.0-35.0); Mean Corpuscular Hemoglobin 33.3 pg (27.0-33.0); Mean Corpuscular Volume 100.7 fL (80.0-98.0); NRBC Abs Auto 0.000 X10*3/uL (0.0-0.012); NRBC Pct Auto 0.0 /100WBC (0.0-0.2); Platelet Count 299 X10*3/uL (160-400); Red Blood Count 4.09 X10*6/uL (4.20-5.50); White Blood Count 6.2 X10*3/uL (4.8-10.8)
[2024-11-20 12:30] LABS: Hemoglobin A1C 121.4294 umol/L; Total Hemoglobin (HGBA1C) 3548.7248 umol/L
[2024-11-20 12:58] LABS: B Type Natriuretic Peptide 78 pg/mL (<100)
[2024-11-20 13:05] LABS: Alanine Aminotransferase 52 U/L (0-31); Albumin Level 3.9 g/dL (3.5-5.0); Alkaline Phosphatase 112 U/L (39-117); Anion Gap 10 (12-20); Aspartate Amino Transferase 44 U/L (5-31); Blood Urea Nitrogen 16 mg/dL (9-16); Calcium 9.1 mg/dL (8.4-10.2); Carbon Dioxide 28 mmol/L (22-29); Chloride 110 mmol/L (96-108); Cholesterol 238 mg/dL (<200); Estimated Glomerular Filt Rate 52; HDL Cholesterol 64 mg/dL (>40); Potassium 4.4 mmol/L (3.3-5.1); Sodium 144 mmol/L (135-145); Total Protein 6.8 g/dL (6.5-8.0); Triglycerides 122 mg/dL (<150)
[2024-11-20 13:23] LABS: Free T4 (Free Thyroxine) 0.86 ng/dL (0.71-1.85); Thyroid Stimulating Hormone 1.72 uIU/mL (0.32-4.0)
[2024-11-20 13:27] LABS: Folate 16.1 ng/mL (> or = 4.0); Vitamin B12 694 pg/mL (200-900)
== END 2024-11-20 11:21 | disposition home or self-care (01) ==
LOC: HO.LAB 11:20
PROVIDERS: Visit Provider Internal Medicine
DX: E53.8 Deficiency of other specified B group vitamins (principal); E78.00 Pure hypercholesterolemia, unspecified; D64.9 Anemia, unspecified; R60.9 Edema, unspecified; E03.9 Hypothyroidism, unspecified; R73.9 Hyperglycemia, unspecified; E55.9 Vitamin D deficiency, unspecified
CPT/HCPCS: 36415; 80053; 80061; 82306; 82607; 82746; 83036; 83880; 84439; 84443; 85025

== ENCOUNTER 2024-11-21 12:55 | Outpatient (AMB) | payer OTHER, SELFPAY ==
[2024-11-21 13:19] VITALS: BP 90/62; PULSE 64; BMI 31.3
--- NOTE | 2024-11-21 13:19 | MHC.OFFVIS ---
Vital Signs 11/21/24 13:19 Height 5 ft 3 in Weight 176 lb 12.972 oz BMI 31.3 BP 90/62 Blood Pressure Location Lt brachial Position Sitting Pulse 64 Pulse Source Pulse Oximeter Intake Visit Reasons: 6m follow up Power Superintendent Required: Yes Power Superintendent Language: Medical Clerk Name: voice [id number] jayce Allergies acetaminophen Adverse Reaction (Intermediate, Verified 11/21/24 13:22) Liver problems atorvastatin Adverse Reaction (Intermediate, Verified 11/21/24 13:22) elevated LFTs rosuvastatin Adverse Reaction (Intermediate, Verified 11/21/24 13:22) elevated LFTs Medication List - Last Reconciled 11/21/24 by ALISE Bauman albuterol sulfate 90 mcg/actuation (Ventolin HFA) 2 puffs inhalation Q6H PRN 30 days apixaban (Eliquis) 5 mg PO BID 30 days bisacodyl (Dulcolax (bisacodyl)) 10 mg (2 x 5 mg) PO BEDTIME blood pressure monitor As directed cholecalciferol (vitamin D3) (Vitamin D3) 25 mcg PO DAILY 90 days [CPAP device and all related supplies As directed] docusate sodium 100 mg PO DAILY enoxaparin (Lovenox) 80 mg (0.8 mL) subcut Q12H 5 days erythromycin 0.5 inches ophthalmic (eye) BID 5 days famotidine 20 mg PO BEDTIME furosemide 20 mg PO QAM PRN gabapentin 800 mg PO TID 30 days hydrocortisone 2.5% (Proctosol HC) 1 appl MS BID-QID PRN linaclotide (Linzess) 290 mcg PO QAM lorazepam 1 mg PO BID PRN 30 days magnesium citrate 150 mL PO DAILY PRN meclizine 25 mg PO TID PRN 30 days melatonin 10 mg (2 x 5 mg) PO BEDTIME PRN 30 days midodrine 10 mg PO TID 30 days nitrofurantoin mg PO oxycodone 5 mg PO Q4H PRN pantoprazole 40 mg PO QAM topiramate 25 mg PO DAILY tramadol 100 mg (2 x 50 mg) PO Q8H PRN 30 days verapamil 40 mg PO BID HPI HPI 6m follow up: Details: Xenia as a 54-year-old female with past medical history of obesity status post bariatric surgery, anxiety/depression, orthostatic hypotension, syncope, pulmonary embolism 01/2024, now on Laura who presents for follow-up. Today she reports that her blood pressure runs low at home. She says she has had issues with lightheadedness and near fainting at least 3 times since her last visit in May. She has been taking her midodrine in the morning only. She has been trying to increase her fluid and salt intake. Not wearing compression stockings.. She has no chest discomfort, shortness of breath, PND, orthopnea, edema. She reports only light activities in the home. Her helps her climb the stairs. Certified insurance application investigator used. FOR[facility]LY [facility], [facility] Medical History Pure hypercholesterolemia Left breast mass Pulmonary nodules Chronic kidney disease, stage III (moderate) Obesity (BMI 30-39.9) Renal cyst Diverticulosis Tubular adenoma Asthma Spondylosis of lumbar spine Sacroiliitis Dizziness of unknown etiology Chronic constipation Hx of schizophrenia Panic attacks PTSD (post-traumatic stress disorder) Dyspareunia Pyelonephritis Ingrown toenail Iron deficiency anemia Major depression, recurrent Anxiety Insomnia Tremor Orthostatic hypotension Incisional hernia without obstruction or gangrene Avascular necrosis of femoral head Bilateral carpal tunnel syndrome Peroneal neuropathy Lumbar degenerative disc disease Vitamin D deficiency GERD (gastroesophageal reflux disease) Migraine Hyperlipidemia Surgical History Hx of lithotripsy History of left nephrectomy (~1999) History of colonoscopy History of surgery Hx of cystoscopy History of bilateral breast reduction surgery History of hysterectomy History of cholecystectomy History of endoscopy (~06/2016) History of bladder repair surgery (~03/2015) S/P cystoscopy (~07/30/12) S/P panniculectomy History of hernia repair (~03/29/10) History of bladder surgery (~10/2009) History of gastric bypass (~2008) History of incisional hernia repair (~1999) Hx of umbilical hernia repair (~1999) S/P laparoscopic sleeve gastrectomy Family History Father Liver cancer Mother Breast cancer Sister Lung cancer Other Mental health problem Social History Household Members: Family Housing: House Are you a primary home care rn to a significant other at home: No Do you presently have visiting nurse or other home services: No Alcohol intake: never Patient Tobacco Use Status: Never used Tobacco e-Cigarette/Vaping Use: Never Used Second Hand Smoke Exposure: No Advance Directives Date on File: 06/17/16 service: No Current occupational status: disabled Sexual orientation: Straight/Heterosexual Gender identity: Female Cognitive needs: No Hearing needs: No Vision needs: Yes Female Reproductive History Menstrual Age of Menarche: 13 Review of Systems Const All systems reviewed & are unremarkable except as noted in HPI and below ENT Reports dizziness Card Denies chest pain, Denies chest pain at rest, Denies chest pain with activity, Denies rapid heart rate, Denies pedal edema, Denies edema, Denies leg edema, Denies lightheadedness, Denies palpitations, Denies dyspnea, Denies dyspnea on exertion and Denies orthopnea Resp Denies cough, Denies dyspnea and Denies dyspnea on exertion GI Denies hematochezia and Denies change in stool character Musc Denies abnormal gait, Denies limited range of motion, Denies muscle cramps, Denies muscle weakness, Denies numbness, Denies radiating pain into limb, Denies stiffness and Denies tingling Neuro Denies abnormal gait, Reports dizziness, Denies numbness and Denies tingling Endo Denies palpitations Physical Exam Vital Signs: Last Vital Signs Pulse 64 11/21/24 13:19 BP 90/62 11/21/24 13:19 BMI result Body Mass Index 31.3 Const General: cooperative, healthy appearing, comfortable and no acute distress Orientation/consciousness: patient oriented x3 Neck Neck: Yes normal visual inspection and Yes no JVD Resp Effort & Inspection: normal respiratory effort Auscultation: clear to auscultation bilaterally, no crackles, no rales, no rhonchi and no wheezes Cardio Jugular venous distension: no JVD Rate: regular rate Rhythm: regular rhythm Heart sounds: S1 normal heart sound present, S2 normal heart sound present, no murmurs and no rubs Neuro General: patient oriented x3 Extrem General: Yes normal to inspection and No no pedal edema Psych Appearance: grossly normal Mental Status: mental status grossly normal Speech and movement: Normal speech and movement present Assessment & Plan Assessment & Plan (1) Orthostatic dizziness: Code(s): R42 - Dizziness and giddiness Category: Medical Plan: History of orthostatic lightheadedness with prior syncope in the past. She runs low blood pressures and takes midodrine with some improvement. Prior cardiac testing included: Cardiac event monitor was done on 07/11/2023 for 30 days showing sinus rhythm with heart rate range 36 to 131, 2 brief paroxysmal SVT episodes, rare PACs and PVCs. Two symptom events correlated with sinus tach. An echocardiogram was done 07/11/2023 which was normal study. An tilt-table test done on 10/17/2023 showed appropriate heart rate and blood pressure response to tilt. This time instructed to take midodrine t.i.d., with meals. Continue to increase fluid intake greater than 64 oz daily and liberal salt use in her diet. Reviewed compression stocking use. Use caution when changing positions and sit/lay down if you become presyncopal. Cardiology follow-up in 6 months, sooner if needed. (2) Hypotension: Code(s): I95.9 - Hypotension, unspecified Category: Medical Plan: As above Plan Time spent on chart review, documentation, interview and assessment Coding Level of Care Code Est Pt Level 4 (50447) Complex EM visit Add On G2211 Diagnoses Orthostatic dizziness R42 Hypotension I95.9 Time Spent (min) 28
== END 2024-11-21 13:49 | disposition home or self-care (01) ==
PROVIDERS: PCP Internal Medicine; Visit Provider Nurse Practitioner Family
DX: R42 Dizziness and giddiness (principal); I95.9 Hypotension, unspecified
CPT/HCPCS: 99214; G2211

== ENCOUNTER → 2024-11-21 12:55 | Outpatient (BNVA) | payer OTHER, SELFPAY | PROVIDERS: PCP Internal Medicine; Visit Provider Nurse Practitioner Family | DX: R42 Dizziness and giddiness (principal); I95.9 Hypotension, unspecified; Z86.711 Personal history of pulmonary embolism; Z79.01 Long term (current) use of anticoagulants | CPT/HCPCS: 99212 ==

== ENCOUNTER 2024-11-25 14:48 | Outpatient (AMB) | payer OTHER, SELFPAY ==
[2024-11-25 14:53] VITALS: BP 108/70; PULSE 63; O2SAT 98; BMI 31.4
--- NOTE | 2024-11-25 14:53 | MHC.PC.OV ---
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 Accompanied by: Self / Same As Patient Allergies ibuprofen (From Motrin) Allergy (Verified 03/06/25 14:04) Unknown acetaminophen Adverse Reaction (Intermediate, Verified 03/06/25 14:04) Liver problems atorvastatin Adverse Reaction (Intermediate, Verified 03/06/25 14:04) elevated LFTs rosuvastatin Adverse Reaction (Intermediate, Verified 03/06/25 14:04) elevated LFTs Citalopram Analogues Adverse Reaction (Unknown, Verified 03/06/25 14:04) Unknown prednisone Adverse Reaction (Unknown, Verified 03/06/25 14:04) Unknown Medication List - Last Reconciled 11/25/24 by Hung Montelongo MD albuterol sulfate 90 mcg/actuation (Ventolin HFA) 2 puffs inhalation Q6H PRN 30 days apixaban (Eliquis) 5 mg PO BID 30 days bisacodyl (Dulcolax (bisacodyl)) 10 mg (2 x 5 mg) PO BEDTIME blood pressure monitor As directed cholecalciferol (vitamin D3) (Vitamin D3) 25 mcg PO DAILY 90 days [CPAP device and all related supplies As directed] docusate sodium 100 mg PO DAILY enoxaparin (Lovenox) 80 mg (0.8 mL) subcut Q12H 5 days erythromycin 0.5 inches ophthalmic (eye) BID 5 days famotidine 20 mg PO BEDTIME furosemide 20 mg PO QAM PRN gabapentin 800 mg PO TID 30 days hydrocortisone 2.5% (Proctosol HC) 1 appl [place] BID-QID PRN linaclotide (Linzess) 290 mcg PO QAM lorazepam 1 mg PO BID PRN 30 days magnesium citrate 150 mL PO DAILY PRN meclizine 25 mg PO TID PRN 30 days melatonin 10 mg (2 x 5 mg) PO BEDTIME PRN 30 days midodrine 10 mg PO TID 30 days nitrofurantoin mg PO oxycodone 5 mg PO Q4H PRN pantoprazole 40 mg PO QAM topiramate 25 mg PO DAILY tramadol 100 mg (2 x 50 mg) PO Q8H PRN 30 days verapamil 40 mg PO BID Tobacco use date assessed: 11/25/24 Dental Screening Dental Screen Date: 11/25/24 Did you have a dental visit in the last 12 months?: No Did you have a dental problem in the last 6 months where you did not have access to dental care?: No Was dental information given to patient?: Patient has dentist HPI 3mth f/u HPI Details The patient is a 54-year-old female presenting for follow up of her multiple chronic conditions, including hypercholesterolemia management and evaluation of dizziness and abdominal pain States that she is again experiencing recurrent dizziness that are especially triggered when she gets up too quickly or moves around too fast She does have a history of orthostasis is currently on midodrine 10 mg TID She has undergone tilt table testing in the past, which reportedly came out negative She also reports experiencing recurrent abdominal pain that are often precipitated when she is eating and she is following up with GI for management and work up of this issue She denies any headaches Denies any chest pains, no increased SOB (+) occasional nausea associated with her abdominal pain but she denies any vomiting No change in bowel habits noted She had her follow up labs done a few days ago - to discuss her results [facility] Medical History Solitary kidney, acquired Renal calculus, right Bacteremia Pure hypercholesterolemia Left breast mass Pulmonary nodules Chronic kidney disease, stage III (moderate) Obesity (BMI 30-39.9) Renal cyst Diverticulosis Tubular adenoma Asthma Spondylosis of lumbar spine Sacroiliitis Dizziness of unknown etiology Chronic constipation Hx of schizophrenia Panic attacks PTSD (post-traumatic stress disorder) Dyspareunia Pyelonephritis Ingrown toenail Iron deficiency anemia Major depression, recurrent Anxiety Insomnia Tremor Orthostatic hypotension Incisional hernia without obstruction or gangrene Avascular necrosis of femoral head Bilateral carpal tunnel syndrome Peroneal neuropathy Lumbar degenerative disc disease Vitamin D deficiency GERD (gastroesophageal reflux disease) Migraine Hyperlipidemia Surgical History Hx of lithotripsy History of left nephrectomy (~1999) History of colonoscopy History of surgery Hx of cystoscopy History of bilateral breast reduction surgery History of hysterectomy History of cholecystectomy History of endoscopy (~06/2016) History of bladder repair surgery (~03/2015) S/P cystoscopy (~07/30/12) S/P panniculectomy History of hernia repair (~03/29/10) History of bladder surgery (~10/2009) History of gastric bypass (~2008) History of incisional hernia repair (~1999) Hx of umbilical hernia repair (~1999) S/P laparoscopic sleeve gastrectomy Family History Father Liver cancer Mother Breast cancer Sister Lung cancer Other Mental health problem Social History Household Members: Spouse Housing: Apartment Are you a primary manager intensive care to a significant other at home: No Do you presently have visiting nurse or other home services: Yes Alcohol intake: never Patient Tobacco Use Status: Never used Tobacco e-Cigarette/Vaping Use: Never Used Second Hand Smoke Exposure: No Advance Directives Date on File: 07/12/21 service: No Current occupational status: disabled Sexual orientation: Straight/Heterosexual Gender identity: Female Cognitive needs: No Hearing needs: No Vision needs: Yes Female Reproductive History Menstrual Age of Menarche: 13 Questionnaire PHQ-9 Over the last 2 weeks, how often have you been bothered by any of the following problems? 1. Little interest or pleasure in doing things: not at all 2. Feeling down, depressed, or hopeless: not at all 3. Trouble falling or staying asleep, or sleeping too much: several days 4. Feeling tired or having little energy: more than half the days 5. Poor appetite or overeating: several days 6. Feeling bad about yourself - or that you are a failure or have let yourself or your family down: several days 7. Trouble concentrating on things, such as reading the newspaper or watching television: more than half the days 8. Moving or speaking so slowly that other people could have noticed. Or the opposite - being so fidgety or restless that you have been moving around a lot more than usual: several days 9. Thoughts that you would be better off or of hurting yourself in some way: several days Total score: 9 Depression Screening Interpretation: Positive Depression Screening Follow-up: Existing condition and In treatment Depression Screening Done: Yes 71213 - PHQ-9 Billing: Yes Source: Developed by Drs. Vincenzo Mayo, Beverly Hernandez, Angel Vogel and colleagues, with an educational juan antonio from [employer]. Thrive Questionnaire Date Thrive assessed: 11/25/24 I am a: Patient What is your living situation today?: I have a steady place to live Within the past 12 months, did the food you bought not last and you didn't have the money to get more?: Sometimes True Within the past 12 months, did you worry whether your food would run out before you got money to buy more?: Sometimes True Do you have trouble paying for medicines?: No Do you have trouble getting transportation to medical appointments?: No Do you have trouble paying your heating and electricity bill?: No Do you have trouble taking care of your child, family member or friend?: I choose not to answer this question Do you have trouble with day-to-day activities such as bathing, preparing meals, shopping, managing finances, etc.?: Yes Are you currently unemployed and looking for a job?: I choose not to answer this question Are you interested in more education?: I choose not to answer this question Please select the resources that you would like help with: None Currently or been in a relationship where the following occur: I choose not to answer THRIVE Score: 2 AUDIT C Alcohol Use Questionnaire (AUDIT-C) 1. How often do you have a drink containing alcohol?: Never 3. How often do you have six or more drinks on one occasion?: Never Total Score: 0 Score Reviewed/Action Taken: Yes JAMIE-7 AMB Questionnaire JAMIE-7 Date JAMIE - 7 assessed: 11/25/24 Feeling nervous, anxious, or on edge: 0 = Not at all Not being able to stop or control worryin = Not at all Worrying too much about different things: 0 = Not at all Trouble relaxin = Not at all Being so restless that it is hard to sit still: 0 = Not at all Becoming easily annoyed or irritable: 0 = Not at all Feeling afraid as if something awful might happen: 0 = Not at all Total JAMIE-7 score (0-4 normal; 5-9 mild; 10-14 moderate; 15-21 severe): 0 Source: Developed by Beverly Teixeira Kurt Kroenke and colleagues, with an educational juan antonio from [employer]. Review of Systems Const Denies chills, Reports fatigue, Denies fever(s) and Denies headache(s) Eyes Denies blurry vision, Denies change in vision, Denies irritation and Denies itchy eyes ENT Denies dysphagia, Reports dizziness (recurrent, often triggered by movement or change in position), Denies otalgia, Denies headache(s), Denies neck pain, Denies odynophagia and Denies sore throat Card Denies chest pain, Denies irregular heart rhythm, Denies palpitations and Denies dyspnea Resp Denies chest congestion, Denies cough, Denies dyspnea and Denies wheezing GI Reports abdominal pain (see HPI), Denies constipation, Denies dysphagia, Denies heartburn, Denies diarrhea, Reports nausea (on and off), Denies odynophagia and Denies vomiting Denies hematuria, Denies difficulty voiding, Denies dysuria and Denies urinary urgency Musc Reports back pain (over the lower back - chronic), Denies arthralgias and Denies neck pain Skin/Breast Denies rash Neuro Reports dizziness (recurrent, often triggered by movement or change in position), Denies headache(s) and Denies paresthesias Psych Reports anxiety and Reports depression Endo Reports fatigue and Denies palpitations Catarino/Lymph Details: on and off swelling of both lower legs and feet Denies easy bruising Aller/Immun Denies itchy eyes and Denies wheezing Physical exam (Primary Care) Vital Signs: Last Vital Signs Pulse 63 11/25/24 14:53 BP 108/70 11/25/24 14:53 Pulse Ox 98 11/25/24 14:53 Oxygen Delivery Method Room Air 11/25/24 14:53 BMI result Body Mass Index 31.4 Tobacco/Smoking Status: Tobacco use Status Tobacco use date assessed 11/25/24 11/25/24 15:08 Patient Tobacco Use Status Never used Tobacco 11/25/24 15:08 e-Cigarette/Vaping Use Never Used 11/25/24 15:08 PHQ-9: PHQ-9 Score PHQ-9: Total score 9 11/25/24 15:33 Depression Screening Interpretation: Positive Depression Screening Follow-up: Existing condition and In treatment Thrive Assessment: Date of Thrive Assessment Date Thrive assessed 11/25/24 11/25/24 15:08 Currently or been in a relationship where the following occur: I choose not to answer Const General: no acute distress and alert HENMT Ears: TM's normal bilaterally and EAC's normal Throat: Yes posterior oropharynx normal and Yes tonsils normal Neck Neck: Yes supple and No lymphadenopathy Thyroid: Thyroid normal Resp Auscultation: clear to auscultation bilaterally, no rales and no wheezes Cardio Rate: regular rate Rhythm: regular rhythm Heart sounds: no murmurs GI Palpation (GI): Soft to palpation, Tenderness to palpation present (GI), no guarding, not rigid, Hernia present umbilical and No Rebound tenderness present Auscultation: normal bowel sounds General: Yes no CVA tenderness Back/Spine/Pelvis Back: no CVA tenderness Thoracic/Lumbar Spine: paraspinal muscle tenderness (over the lumbar region) on the right greater than left and lumbar spinal tenderness Skin Rashes: no rashes Extrem General: No clubbing, No cyanosis and Yes edema (1+ bipedal edema) Results Reviewed Results Reviewed: Laboratory Tests 11/20/24 11/20/24 11:33 18:30 WBC 6.2 Hgb 13.6 Hct 41.2 Plt Count 299 Sodium 144 Potassium 4.4 Creatinine 1.09 Estimated GFR 52 Fasting Glucose 83 Hemoglobin A1c % 5.3 Calcium 9.1 AST 44 H ALT 52 H B-Natriuretic Peptide 78 Triglycerides 122 Cholesterol 238 H LDL Cholesterol, Calc 150 H HDL Cholesterol 64 Vitamin B12 694 25-OH Vitamin D Total 39.2 TSH 1.72 Free T4 0.86 Ur Specific [place] 1.015 Urine Protein Negative Urine Glucose (UA) Negative Urine Blood Large (3+) H Urine Nitrite Negative Ur Leukocyte Esterase Negative Coding Level of Care Code Est Pt Level 4 (40515) Diagnoses Orthostatic hypotension I95.1 Pure hypercholesterolemia E78.00 Hyperlipidemia type: pure hypercholesterolemia Elevated LFTs R79.89 MIGUEL (obstructive sleep apnea) G47.33 Solitary kidney, acquired Z90.5 Multiple thyroid nodules E04.2 Chronic constipation K59.09 Pruritus L29.9 Gastroesophageal reflux disease without esophagitis K21.9 Esophagitis presence: without esophagitis Edema, unspecified type R60.9 Edema type: unspecified Degeneration of intervertebral disc of lumbar region with discogenic back pain and lower extremity pain M51.362 Disc-related pain type: discogenic back pain and lower extremity pain Pain in other joint M25.59 Joint pain location: other joint Migraine without status migrainosus, not intractable, unspecified migraine type G43.909 Intractability: not intractable Migraine type: unspecified Status migrainosus presence: without status migrainosus Vitamin D deficiency E55.9 Incarcerated umbilical hernia K42.0 Memory impairment R41.3 Primary insomnia F51.01 Insomnia type: primary Anxiety F41.9 Episode of recurrent major depressive disorder, unspecified depression episode severity F33.9 Active/Remission status: currently active Major depression episode severity: unspecified Obesity (BMI 30-39.9) E66.9 Additional Codes PHQ-9 - 38921 - PHQ-9 Billing: Yes ([id number]) Assessment & Plan Assessment & Plan (1) Orthostatic hypotension: Code(s): I95.1 - Orthostatic hypotension Category: Medical Plan: 30 days cardiac event monitor done on 07/11/2023 showed sinus rhythm with heart rate ranging from 36 to 131/min, 2 brief paroxysmal SVT episodes, rare PACs and PVCs; two symptom events correlated with sinus tach. Echocardiogram done on the same day (07/11/2023) came out normal Tilt-table testing done on 10/17/2023 showed appropriate heart rate and blood pressure response to tilt Continue Midodrine 10 mg TID She is reminded to stay adequately hydrated as much as she can and to try increasing her oral salt intake as well Due to her recent increase in orthostasis again, will refer her back to cardiology for further recommendations (2) Hyperlipidemia: Code(s): E78.5 - Hyperlipidemia, unspecified Category: Medical Qualifiers: Hyperlipidemia type: pure hypercholesterolemia Qualified Code(s): E78.00 - Pure hypercholesterolemia, unspecified Plan: Results of her labs done a few days ago reviewed and discussed with patient - she is advised that her cholesterol levels have increased significantly from previous States that her insurance is reportedly declining to cover her Praluent injection Rx so she was not able to continue on it for a few months now Reinforced low cholesterol diet Will send in Rx again for Praluent Pen 75 mg SQ every 2 weeks - patient is advised to let us know if she still cannot get her Rx filled at her pharmacy Her LFTs have increased on her recent labs Will refer her back to cardiology to see if they have any other suggestions regarding this Will recheck her fasting lipids and labs in 3 months for follow up (3) Elevated LFTs: Code(s): R79.89 - Other specified abnormal findings of blood chemistry Category: Medical Plan: Patient's LFTs have improved since she was taken off Rosuvastatin a few months ago but they have gone up again on her recent labs Abdominal US done a few months ago revealed (+) coarsened hepatic echotexture, consistent with fatty infiltration or hepatocellular disease. No focal hepatic mass or intrahepatic biliary dilatation is seen Will continue to monitor her LFTs regularly (4) MIGUEL (obstructive sleep apnea): Comment: mild degree of sleep apnea. The AHI was 5/hr and oxygen mitul was 81%. Code(s): G47.33 - Obstructive sleep apnea (adult) (pediatric) Category: Medical Plan: Continue using her CPAP device when sleeping at night daily Follow up with Sleep Medicine as scheduled (5) Solitary kidney, acquired: Comment: (+) Hx of left nephrectomy >20 years ago due to recurrent kidney stones Code(s): Z90.5 - Acquired absence of kidney Category: Medical Plan: Follow up with nephrology as scheduled (6) Multiple thyroid nodules: Code(s): E04.2 - Nontoxic multinodular goiter Category: Medical Plan: These were apparently seen incidentally on neck CTA done a few months ago Her TFTs remain normal on her recent labs She is now seeing endocrinology for this and had thyroid Bx done last month - pathology came out as atypia of undetermined significance ([place] category III) Follow up with endocrinology as scheduled (7) Chronic constipation: Code(s): K59.09 - Other constipation Category: Medical Plan: She is again encouraged on increased oral fluids and dietary fiber intake States that Lactulose and Docusate 100 mg BID have not helped much previously; she also tried taking OTC Miralax, which she states only helped minimally She was tried by GI on Linzess and Trulance also recently and she states that both Rx did not help She is currently on a combination regimen of Linzess 145 mcg QD, Docusate 100 mg BID and Miralax 17 gm QD Had EGD and colonoscopy done about 3 years ago - (+) tubular adenoma; colonoscopy was otherwise normal Follow up with GI as scheduled (8) Pruritus: Code(s): L29.9 - Pruritus, unspecified Category: Medical Plan: Patient relates experiencing increased itching all over frequently and she feels that these are likely due to her Midodrine Rx and is inquiring if she can stop taking this medication Have advised patient that she was started on Midodrine by cardiology to help with her orthostasis and stopping this abruptly may not be the best option to take, even if Midodrine is in the responsible for her complaints of recurrent pruritus recently Have advised patient to continue on her current medication for now and to speak to cardiology first whether they are agreeable to her stopping her Midodrine or not Have advised patient that she can take some OTC Benadryl PRN for symptomatic relief (9) GERD (gastroesophageal reflux disease): Code(s): K21.9 - Gastro-esophageal reflux disease without esophagitis Category: Medical Qualifiers: Esophagitis presence: without esophagitis Qualified Code(s): K21.9 - Gastro-esophageal reflux disease without esophagitis Plan: Dietary restrictions reinforced Continue Omeprazole 20 mg QD (10) Edema: Code(s): R60.9 - Edema, unspecified Category: Medical Qualifiers: Edema type: unspecified Qualified Code(s): R60.9 - Edema, unspecified Plan: Continue Furosemide 20 mg Q AM PRN She is reminded to take this only as needed for severe edema as her blood pressure is often on the lower end of normal and taking this daily may drive her BP down further and cause her to experience increased dizziness and orthostasis (11) Lumbar degenerative disc disease: Code(s): M51.36 - Other intervertebral disc degeneration, lumbar region Category: Medical Qualifiers: Disc-related pain type: discogenic back pain and lower extremity pain Qualified Code(s): M51.362 - Other intervertebral disc degeneration, lumbar region with discogenic back pain and lower extremity pain Plan: Reinforced activity and weight lifting restrictions She went to physical therapy last year without any significant relief She was seen by [facility] previously and had a diagnostic SI joint injection under fluoroscopic guidance back in September 2021 and started seeing them again recently; has been scheduled for bilateral therapeutic sacroiliac joint injection under sedation but it looks like she stopped going to pain management afterwards She was referred back to [facility] for interventional Tx to help with her chronic pain at her last visit and she was seen again by Dr. Smith in late October 2023 and he was reportedly planning to schedule her for a bilateral therapeutic sacroiliac joint injection under sedation but it appears that patient did not follow-up again for her injections although she claims that she was never scheduled It appears that patient completely forgot about her follow-up and has been experiencing some memory issues in addition to her recent psychiatric hospitalizations for decompensation She was seen again by Dr. Smith a couple of months ago and was sent for physical therapy, after which she will be scheduled again for back injections Patient started back with physical therapy last week and she is reminded to continue following up with them and with pain management as scheduled Continue Gabapentin 800 mg 3 times a day, Tramadol 50 mg 1-2 tablets every 8 hours as needed (12) Arthralgia: Code(s): M25.50 - Pain in unspecified joint Category: Medical Qualifiers: Joint pain location: other joint Qualified Code(s): M25.59 - Pain in other specified joint Plan: Involving multiple joints, especially over both hips, both elbows and both knees X-rays of the knees done back in August 2021 revealed (+) mild OA changes in both knees; hip and elbow x-rays came out normal Continue Gabapentin 800 mg TID and Tramadol 50 mg TID PRN for pain (13) Migraine: Code(s): G43.909 - Migraine, unspecified, not intractable, without status migrainosus Category: Medical Qualifiers: Intractability: not intractable Migraine type: unspecified Status migrainosus presence: without status migrainosus Qualified Code(s): G43.909 - Migraine, unspecified, not intractable, without status migrainosus Plan: Controlled Continue Topiramate 50 mg QD for LANZA prophylaxis and Sumatriptan 50 mg PRN Follow-up with neurology as scheduled (14) Vitamin D deficiency: Code(s): E55.9 - Vitamin D deficiency, unspecified Category: Medical Plan: Continue Vitamin D3 1000 units QD (15) Incarcerated umbilical hernia: Code(s): K42.0 - Umbilical hernia with obstruction, without gangrene Category: Surgical Plan: Follow up with surgery as scheduled - surgery has recommended surgical repair of her hernia and she has been advised to call and get this scheduled when she is ready to have the surgery done (16) Memory impairment: Code(s): R41.3 - Other amnesia Category: Medical Plan: She was referred to and seen by neurology and was advised that her memory issues are multifactorial in etiology although she was diagnosed with frontotemporal lobe degeneration and dementia as well Follow up with neurology as scheduled (17) Insomnia: Code(s): G47.00 - Insomnia, unspecified Category: Medical Qualifiers: Insomnia type: primary Qualified Code(s): F51.01 - Primary insomnia Plan: Sleep hygiene reinforced She was taking Trazodone 50 mg daily at bedtime as needed and Prazosin 1 mg Q HS in the past but currently appears to be only taking Melatonin 5 mg Q HS She is also on Aripiprazole 5 mg Q HS (18) Anxiety: Code(s): F41.9 - Anxiety disorder, unspecified Category: Medical Plan: Continue Lorazepam 1 mg BID PRN and Diphenhydramine 50 mg Q HS (19) Major depression, recurrent: Code(s): F33.9 - Major depressive disorder, recurrent, unspecified Category: Medical Qualifiers: Active/Remission status: currently active Major depression episode severity: unspecified Qualified Code(s): F33.9 - Major depressive disorder, recurrent, unspecified Plan: Continue Lurasidone 20 mg QD, Mirtazapine 7.5 mg Q HS and Aripiprazole 5 mg Q HS She was admitted to [facility] a few months ago for psychiatric decompensation and suicidal ideation and has had multiple psychiatric admissions as well in the past for similar reasons Follow-up with Psychiatry as scheduled (20) Obesity (BMI 30-39.9): Code(s): E66.9 - Obesity, unspecified Category: Medical Plan: Reinforced diet; exercise is unrealistic given patient's multiple medical and psychiatric morbidities Plan Follow-up in 3 months Orders: Referrals Cardiology Referral E78.00 - Pure hypercholesterolemia, unspecified, I95.1 - Orthostatic hypotension
--- OUTSIDE RECORDS SUMMARY | 2024-11-25 15:21 | XMS_ITS | Clinical Summary ---
Author Organization [facility] Address [address] [place] [address] Phone Care Team Providers Care Nut Orchardist Name Role Phone Hung Montelongo MD Primary Care Provider +1 -[phone] Allergies No known active allergies Medications VENTOLIN HFA 90 mcg/actuation inhaler TAKE 2 PUFFS INHALED EVERY 6 HOURS NEEDED FOR SHORTNESS OF BREATH OR WHEEZING FOR 30 DAYS 3 Active VITAMIN D3 25 mcg (1,000 unit) capsule TOME WU C PSULA TODOS LOS D 4 Active ferrous sulfate 325 mg (65 mg venetie iron) tablet TOME WU TABLETA TODOS LOS [...] topic Medical Devices Not on file Insurance [facility] Care Teams Nut Orchardist Relationship Specialty Start Date End Date Hung Montelongo MD [address] [place] [address] [place] [address] PCP - General Internal Medicine 07/24/23 Additional Source Comments The information contained in this document represents components of the legal health record. It is not the complete legal health record.[facility]
--- OUTSIDE RECORDS SUMMARY | 2024-11-25 15:21 | XMS_ITS | Encounter Summary ---
Author Organization [employer] Address [address] [facility] 7t [place] [address] Care Team Providers Care Shank Turner Name Role Phone Unavailable Primary Care Provider [...] Care Team (Late st Contact Info) Description 06/05/2025 1:00 PM EST Office Visit [facility] [address] [place] [address] Chari Greenwood [address] [place] [address] documented as of this encounter Visit Diagnoses Not on filedocumented in this encounter
--- OUTSIDE RECORDS SUMMARY | 2024-11-25 15:21 | XMS_ITS | Clinical Summary ---
Author Organization [facility] Address [address] [address] Phone Care Team Providers Care Wildlife Refuge Specialist Name Role Phone Hung Montelongo MD Primary Care Provider +1- [phone] Allergies Active Allergy Reactions Criticality Noted Date [...] Visit [facility] [address] [place], [place] [address] Alejandro Benz [...] Visit [facility] [address] [place] [address] Alejandro Benz MD [address] [facility] [address] [place] [address] Health Maintenance Due Date Last Done Comments Breast Cancer Screening 1969 Hepatitis B Vaccine (1 of 3 - 19+ 3-dose series) 11/17 Pneumococcal Vaccine: 50+ Years (1 of 2 - PCV) 989 Colorectal Cancer Screening: Annual FOBT 2018 Colorectal Cancer Screening: Colonoscopy 2018 Colorectal Cancer Screening: Sigmoidoscopy 2018 Influenza Vaccine (#1) [address] [place] [id number] [facility] Medicaid Care Teams Wildlife Refuge Specialist Relationship Specialty Start Date End Date Hung Montelongo MD [address] [place] [address] PCP - General 05/11/20
== END 2024-11-25 15:41 | disposition home or self-care (01) ==
LOC: HO.HMCH 14:49
PROVIDERS: PCP Internal Medicine; Visit Provider Internal Medicine
DX: I95.1 Orthostatic hypotension (principal); E78.00 Pure hypercholesterolemia, unspecified; E66.9 Obesity, unspecified; Z68.31 Body mass index [BMI] 31.0-31.9, adult; R79.89 Other specified abnormal findings of blood chemistry; G47.33 Obstructive sleep apnea (adult) (pediatric); Z90.5 Acquired absence of kidney; E04.2 Nontoxic multinodular goiter; K59.09 Other constipation; L29.9 Pruritus, unspecified; K21.9 Gastro-esophageal reflux disease without esophagitis; R60.9 Edema, unspecified; M51.362 Other intervertebral disc degeneration, lumbar region with discogenic back pain and lower extremity pain; M25.59 Pain in other specified joint; G43.909 Migraine, unspecified, not intractable, without status migrainosus; E55.9 Vitamin D deficiency, unspecified; K42.0 Umbilical hernia with obstruction, without gangrene; R41.3 Other amnesia; F51.01 Primary insomnia; F33.9 Major depressive disorder, recurrent, unspecified

== ENCOUNTER → 2024-11-25 14:48 | Outpatient (BNVA) | payer OTHER, SELFPAY | PROVIDERS: PCP Internal Medicine; Visit Provider Internal Medicine | DX: I95.1 Orthostatic hypotension (principal); E78.00 Pure hypercholesterolemia, unspecified; R79.89 Other specified abnormal findings of blood chemistry; R42 Dizziness and giddiness; R10.9 Unspecified abdominal pain; G47.33 Obstructive sleep apnea (adult) (pediatric); E04.2 Nontoxic multinodular goiter; K59.09 Other constipation; L29.9 Pruritus, unspecified; K21.9 Gastro-esophageal reflux disease without esophagitis; R60.9 Edema, unspecified; M51.362 Other intervertebral disc degeneration, lumbar region with discogenic back pain and lower extremity pain; G43.909 Migraine, unspecified, not intractable, without status migrainosus; E55.9 Vitamin D deficiency, unspecified; K42.0 Umbilical hernia with obstruction, without gangrene; R41.3 Other amnesia; F51.01 Primary insomnia; F41.9 Anxiety disorder, unspecified; F33.9 Major depressive disorder, recurrent, unspecified; E66.9 Obesity, unspecified; Z68.31 Body mass index [BMI] 31.0-31.9, adult; Z90.5 Acquired absence of kidney | CPT/HCPCS: 96127; 99212 ==

== ENCOUNTER 2024-12-03 10:17 | Outpatient (AMB) | payer OTHER, SELFPAY ==
--- NOTE | 2024-12-03 10:22 | A.OFFVIS_ITS ---
VS Expanded 12/03/24 10:35 BP 113/71 Blood Pressure Location Rt brachial Blood Pressure Position Sitting Pulse 70 Pulse Source Pulse Oximeter Temp 97.7 F Temperature Source Temporal Artery Scan Pulse Oximetry 99 Oxygen Delivery Method Room Air Height 5 ft 3 in Weight 176 lb 12.8 oz BMI 31.3 Body Fat % 41.1 Body Fat Mass 72.6 Fat Free Mass 104.0 Visceral Fat Rating 10.0 Body Water % 41.8 Body Water Mass 73.8 Muscle Mass/Score 98.8 Basal Metabolic Rate/Score 1,440 Intake Visit Reasons: (OV) PO LRYGB 06/16/16 Humanities Professor Required: Yes Humanities Professor Name: Radha- [id number] Allergies acetaminophen Adverse Reaction (Intermediate, Verified 11/25/24 15:26) Liver problems atorvastatin Adverse Reaction (Intermediate, Verified 11/25/24 15:26) elevated LFTs rosuvastatin Adverse Reaction (Intermediate, Verified 11/25/24 15:26) elevated LFTs Medication List - Last Reconciled 12/03/24 by CJ Cheng albuterol sulfate 90 mcg/actuation (Ventolin HFA) 2 puffs inhalation Q6H PRN 30 days apixaban (Eliquis) 5 mg PO BID 30 days bisacodyl (Dulcolax (bisacodyl)) 10 mg (2 x 5 mg) PO BEDTIME blood pressure monitor As directed cholecalciferol (vitamin D3) (Vitamin D3) 25 mcg PO DAILY 90 days [CPAP device and all related supplies As directed] docusate sodium 100 mg PO DAILY enoxaparin (Lovenox) 80 mg (0.8 mL) subcut Q12H 5 days erythromycin 0.5 inches ophthalmic (eye) BID 5 days famotidine 20 mg PO BEDTIME furosemide 20 mg PO QAM PRN gabapentin 800 mg PO TID 30 days hydrocortisone 2.5% (Proctosol HC) 1 appl NE BID-QID PRN linaclotide (Linzess) 290 mcg PO QAM lorazepam 1 mg PO BID PRN 30 days magnesium citrate 150 mL PO DAILY PRN meclizine 25 mg PO TID PRN 30 days melatonin 10 mg (2 x 5 mg) PO BEDTIME PRN 30 days midodrine 10 mg PO TID 30 days nitrofurantoin mg PO oxycodone 5 mg PO Q4H PRN pantoprazole 40 mg PO QAM topiramate 25 mg PO DAILY tramadol 100 mg (2 x 50 mg) PO Q8H PRN 30 days verapamil 40 mg PO BID HPI Comments Details: This?is a?53?yo F who is s/p RYGB 06/16/2016. Presents for 8 year post op visit. Weight gain of 23lbs since last OV 6 months ago. I'm gaining weight and whenever I eat I feel a lot of pain No N/V. Denies tobacco, NSAIDs. Present meal plan includes: 1 scoop Pure Protein in 8oz 1% milk- 33g Pure Protein bar- 20g- OR has been having fish for lunch, perhaps 3oz, with salad Dinner of 3oz protein (21g)- has been having salad and salmon or chicken or beef will drink water and zero calorie flavor enhancer Goal of 70g/day. Exercise routine includes: recommended Sit and Be Fit or MM videos, trying to do 3x/week has been doing some Kushal classes leg weakness has improved, has been walking on treadmill has chronic pain, follows with pain management [facility] Medical History Pure hypercholesterolemia Left breast mass Pulmonary nodules Chronic kidney disease, stage III (moderate) Obesity (BMI 30-39.9) Renal cyst Diverticulosis Tubular adenoma Asthma Spondylosis of lumbar spine Sacroiliitis Dizziness of unknown etiology Chronic constipation Hx of schizophrenia Panic attacks PTSD (post-traumatic stress disorder) Dyspareunia Pyelonephritis Ingrown toenail Iron deficiency anemia Major depression, recurrent Anxiety Insomnia Tremor Orthostatic hypotension Incisional hernia without obstruction or gangrene Avascular necrosis of femoral head Bilateral carpal tunnel syndrome Peroneal neuropathy Lumbar degenerative disc disease Vitamin D deficiency GERD (gastroesophageal reflux disease) Migraine Hyperlipidemia Surgical History Hx of lithotripsy History of left nephrectomy (~1999) History of colonoscopy History of surgery Hx of cystoscopy History of bilateral breast reduction surgery History of hysterectomy History of cholecystectomy History of endoscopy (~06/2016) History of bladder repair surgery (~03/2015) S/P cystoscopy (~07/30/12) S/P panniculectomy History of hernia repair (~11/29/10) History of bladder surgery (~10/2009) History of gastric bypass (~2008) History of incisional hernia repair (~1999) Hx of umbilical hernia repair (~1999) S/P laparoscopic sleeve gastrectomy Family History Father Liver cancer Mother Breast cancer Sister Lung cancer Other Mental health problem Social History Household Members: Family Housing: House Are you a primary career and guidance counselor to a significant other at home: No Do you presently have visiting nurse or other home services: No Alcohol intake: never Patient Tobacco Use Status: Never used Tobacco e-Cigarette/Vaping Use: Never Used Second Hand Smoke Exposure: No Advance Directives Date on File: 06/17/16 service: No Current occupational status: disabled Sexual orientation: Straight/Heterosexual Gender identity: Female Cognitive needs: No Hearing needs: No Vision needs: Yes Female Reproductive History Menstrual Age of Menarche: 13 Physical Exam Vital Signs: Last Vital Signs Temp 97.7 F 12/03/24 10:35 Pulse 70 12/03/24 10:35 BP 113/71 12/03/24 10:35 Pulse Ox 99 12/03/24 10:35 Oxygen Delivery Method Room Air 12/03/24 10:35 BMI result Body Mass Index 31.3 Assessment & Plan Assessment & Plan (1) Obesity: Code(s): E66.9 - Obesity, unspecified Category: Medical Qualifiers: Obesity type: due to excess calories Obesity classification: adult clas s 1 (BMI 30 - 34.9) Serious obesity comorbidity presence: with serious comorbidity Body mass index: BMI 30.0-30.9 Qualified Code(s): E66.811 - Obesity, class 1; E66.09 - Other obesity due to excess calories; Z68.30 - Body mass index [BMI] 30.0-30.9, adult (2) History of gastric bypass: Onset Date: ~2008 Comment: revision of GBP Jun 2016 Code(s): Z98.84 - Bariatric surgery status Category: Surgical Plan Pt to ask GI at next appt in 2 weeks if endoscopy could be performed. Gave pt new meal plan of 3 protein shakes per day, each half scoop Pure in 8oz 1% milk. Plus one meal 4f/4f soft protein. Shakes to take 2 hours. Restarted PPI and carafate- pt reports she had been told to stop PPI. I reviewed recent bloodwork. No anemia. I think much of her pain may be due to inappropriate eating habits. She has continued to gain weight since last OV. Pt to ask GI at next appt in 2 weeks if endoscopy could be performed. She has previously had cholecystectomy. Will order UGI in the meantime. RTC 3mo. Orders: Orders [place] upper GI w air Today R10.33 - Periumbilical pain, Z98.84 - Bariatric surgery status Medications: New sucralfate (Carafate) 10 mL PO BID 414 mL 3RF Refilled pantoprazole 40 mg PO QAM 90 tabs 2RF
[2024-12-03 10:35] VITALS: BP 113/71; PULSE 70; TEMP 36.5; O2SAT 99; BMI 31.3
--- OUTSIDE RECORDS SUMMARY | 2024-12-03 10:51 | XMS_ITS | Clinical Summary ---
Author Organization [facility] Address [address] [address] Phone Care Team Providers Care Floriculture Teacher Name Role Phone Hung Montelongo MD Primary Care Provider +1- [phone] Allergies Active Allergy Reactions Criticality Noted Date [...] Visit [facility] [address] [place] [address] Alejandro Benz MD [address] [facility] [address] [place] [phone] Health Maintenance Due Date Last Done Comments Breast Cancer Screening 1970 Hepatitis B Vaccine (1 of 3 - 19+ 3-dose series) 11/17 Pneumococcal Vaccine: 50+ Years (1 of 2 - PCV) 989 Colorectal Cancer Screening: Annual FOBT 2018 Colorectal Cancer Screening: Colonoscopy 2018 Colorectal Cancer Screening: Sigmoidoscopy 2018 Influenza Vaccine (#1) 2024 [place] [address] [facility] [place] [address] Care Teams Floriculture Teacher Relationship Specialty Start Date End Date Hung Montelongo MD [address] [place] [address] PCP - General 05/11/20
--- OUTSIDE RECORDS SUMMARY | 2024-12-03 10:51 | XMS_ITS | Clinical Summary ---
Author Organization [facility] Address [address] [place] [address] Phone Care Team Providers Care Quarry Supervisor Dimension Stone Name Role Phone Hung Montleongo MD Primary Care Provider +1 [phone] Allergies No known active allergies Medications VENTOLIN HFA 90 mcg/actuation inhaler TAKE 2 PUFFS INHALED EVERY 6 HOURS NEEDED FOR SHORTNESS OF BREATH OR WHEEZING FOR 30 DAYS 3 Active VITAMIN D3 25 mcg (1,000 unit) capsule TOME WU C PSULA TODOS LOS D 4 Active ferrous sulfate 325 mg (65 mg [place] iron) tablet TOME WU TABLETA TODOS LOS [...] topic Medical Devices Not on file Insurance [facility] Care Teams Quarry Supervisor Dimension Stone Relationship Specialty Start Date End Date Hung Montelongo MD [address] [place] [address] [place] [address] PCP - General Internal Medicine 07/24/23 Additional Source Comments The information contained in this document represents components of the legal health record. It is not the complete legal health record.[facility]
== END 2024-12-03 11:13 | disposition home or self-care (01) ==
LOC: HO.HBS 10:17
PROVIDERS: PCP Internal Medicine; Visit Provider Physician Assistant Surgical
DX: E66.811 Obesity, class 1 (principal); Z68.30 Body mass index [BMI] 30.0-30.9, adult; Z98.84 Bariatric surgery status
CPT/HCPCS: 99214

== ENCOUNTER → 2024-12-03 10:17 | Outpatient (BNVA) | payer OTHER, SELFPAY | PROVIDERS: PCP Internal Medicine; Visit Provider Physician Assistant Surgical | DX: R10.33 Periumbilical pain (principal); Z98.84 Bariatric surgery status | CPT/HCPCS: 99212 ==

== ENCOUNTER 2024-12-05 10:50 | Outpatient (REF) | payer OTHER, SELFPAY ==
--- OUTSIDE RECORDS SUMMARY | 2024-12-05 11:33 | XMS_ITS | Clinical Summary ---
Author Organization [facility] Address [address] [address] Phone Care Team Providers Care Building Pressure Washer Name Role Phone Hung Montelongo MD Primary Care Provider +1- [phone] Allergies Active Allergy Reactions Criticality Noted Date [...] Visit [facility] [address] [place] [address] Alejandro Benz MD [address] [facility] [address] [place] [phone] Health Maintenance Due Date Last Done Comments Breast Cancer Screening 1970 Hepatitis B Vaccine (1 of 3 - 19+ 3-dose series) 11/17 Pneumococcal Vaccine: 50+ Years (1 of 2 - PCV) 989 Colorectal Cancer Screening: Annual FOBT 2018 Colorectal Cancer Screening: Colonoscopy 2018 Colorectal Cancer Screening: Sigmoidoscopy 2018 Influenza Vaccine (#1) 2024 [place] [id number] [facility] Medicaid Care Teams Building Pressure Washer Relationship Specialty Start Date End Date Hung Montelongo MD [address] [place] [address] PCP - General 05/11/20
--- OUTSIDE RECORDS SUMMARY | 2024-12-05 11:33 | XMS_ITS | Encounter Summary ---
Author Organization [employer] Address [address] [facility] 7t [place] [address] Care Team Providers Care Administrative Nursing Supervisor Name Role Phone Unavailable Primary Care Provider Unavailabl e Encounter Details Date Type Department Care Team (Latest Contact Info) Description 11/30/2020 Abstract [facility] CONVERSIONS Dental, Provider, DDS Social History Tobacco [...] Description 06/05/2025 1:00 PM EST Office Visit [facility] [address] [place] [address] Chari Greenwood [address] [place] [address] documented as of this encounter Visit Diagnoses Not on filedocumented in this encounter
--- OUTSIDE RECORDS SUMMARY | 2024-12-05 11:33 | XMS_ITS | Clinical Summary ---
Author Organization [facility] Address [address] [place] [address] Phone Care Team Providers Care Social Services Specialist Name Role Phone Hung Montelongo MD Primary Care Provider +1 -[phone] Allergies No known active allergies Medications VENTOLIN HFA 90 mcg/actuation inhaler TAKE 2 PUFFS INHALED EVERY 6 HOURS NEEDED FOR SHORTNESS OF BREATH OR WHEEZING FOR 30 DAYS 3 Active VITAMIN D3 25 mcg (1,000 unit) capsule TOME WU C PSULA TODOS LOS D 4 Active ferrous sulfate 325 mg (65 mg [place] iron) tablet TOME WU TABLETA TODOS LOS [...] topic Medical Devices Not on file Insurance [facility] Care Teams Social Services Specialist Relationship Specialty Start Date End Date Hung Montelongo MD [address] [place] [address] [place] [address] PCP - General Internal Medicine 07/24/23 Additional Source Comments The information contained in this document represents components of the legal health record. It is not the complete legal health record.[facility]
== END 2024-12-05 10:51 | disposition home or self-care (01) ==
LOC: HO.MAMMO 10:50
PROVIDERS: PCP Internal Medicine; Visit Provider Internal Medicine
DX: Z12.31 Encounter for screening mammogram for malignant neoplasm of breast (principal)
CPT/HCPCS: 77063; 77067

== ENCOUNTER → 2024-12-05 11:00 | Outpatient (BNV) | payer OTHER, SELFPAY | PROVIDERS: PCP Internal Medicine; Visit Provider Radiology Body Imaging | DX: Z12.31 Encounter for screening mammogram for malignant neoplasm of breast (principal) | CPT/HCPCS: 77063; 77067 ==

== ENCOUNTER 2024-12-11 15:13 | Inpatient (IN) | payer OTHER, SELFPAY ==
--- NOTE | ~2024-12-11 | US_ITS ---
CLINICAL HISTORY: Liver Gallbladder --- Additional Notes or Special Instructions: Elevated LFTs , right upper quadrant abdominal pain US ABDOMEN LIMITED Comparison: CT/SR - CT ABDOMEN PELVIS W IV CON - 12/11/24 18:49 EDT US/SR - US ABDOMEN LIMITED WITH LIVER ELASTOGRAPHY - 04/29/24 08:48 EST Findings: The right hepatic lobe measures 14.9 cm. A known small hepatic hemangioma is not well-visualized. There is no intrahepatic bile duct dilatation. Common bile duct measures 6.0 mm. Again, the gallbladder is not visualized consistent with surgical history. The main portal vein is antegrade. There are multiple cysts in the right kidney, the largest 5.5 cm in greatest diameter. No ascites. IMPRESSION: Cholecystectomy with no significant biliary ductal dilatation. This document has been electronically signed by: Jerri Nava DO on 12/13/2024 18:06:50
--- NOTE | ~2024-12-11 | CT_ITS ---
CLINICAL HISTORY: RUQ pain, RLQ pain CT abdomen and pelvis with contrast Comparison: US/SR - US ABDOMEN LIMITED WITH LIVER ELASTOGRAPHY - 04/29/24 08:[address]/[place]/SR - CT ABDOMEN PELVIS WO IV CON - 01/25/24 18:07 EDT Findings: Small hiatal hernia. No consolidation or effusion. Small hemangioma in the inferior right hepatic lobe. Cholecystectomy. Fatty atrophy of the head and uncinate process of the pancreas. Spleen and adrenal glands are within normal limits. Left nephrectomy. Mild right hydronephrosis without hydroureter or obstructing stone seen. Multiple right renal cysts. Nonobstructing calculus in the lower pole of the right kidney. Postsurgical changes in the stomach. No bowel obstruction, pneumatosis or pneumoperitoneum. Normal appendix. Hysterectomy. Urinary bladder is within normal limits. The bones are intact. IMPRESSION: Mild right hydronephrosis without hydronephrosis or obstructing stone seen. Normal appendix. This document has been electronically signed by: Richie Donahue MD on 12/11/2024 20:06:21
[2024-12-11 15:25] VITALS: BP 105/81; PULSE 58; RESP 18; TEMP 37.4; O2SAT 97; BMI 31.9
--- NOTE | 2024-12-11 16:14 | MHC.CARE ---
Evelyn @ [facility] called in an expect for Xenia Sandoval who should be arriving to ED shortly (54F) 11/17/1977. Pt having audio hallucinations command in nature to harm self. Suicidal. She seen for crisis assessment in community by [facility] and will be inpatient bed search. N to fax over assessment when completed.
--- OUTSIDE RECORDS SUMMARY | 2024-12-11 16:27 | XMS_ITS | Clinical Summary ---
Author Organization [facility] Address [address] [address] Phone Care Team Providers Care Public Transit Specialist Name Role Phone Hung Montelongo MD Primary Care Provider +1- [phone] Allergies Active Allergy Reactions Criticality Noted Date [...] Visit [facility] [address] [place] [address] Alejandro Benz MD [address] [facility] [address] [place] [phone] Health Maintenance Due Date Last Done Comments Breast Cancer Screening 1970 Hepatitis B Vaccine (1 of 3 - 19+ 3-dose series) 11/17 Pneumococcal Vaccine: 50+ Years (1 of 2 - PCV) 989 Colorectal Cancer Screening: Annual FOBT 2018 Colorectal Cancer Screening: Colonoscopy 2018 Colorectal Cancer Screening: Sigmoidoscopy 2018 Influenza Vaccine (#1) 2024 [place] [address] [facility] Medicaid Care Teams Public Transit Specialist Relationship Specialty Start Date End Date Hung Montelongo MD [address] [place] [address] PCP - General 05/11/20
--- OUTSIDE RECORDS SUMMARY | 2024-12-11 16:27 | XMS_ITS | Encounter Summary ---
Author Organization [employer] Address [address] [facility] 7t [place] [address] Care Team Providers Care Button Sewer Hand Name Role Phone Unavailable Primary Care Provider Unavailabl e Encounter Details Date Type Department Care Team (Latest Contact Info) Description 11/30/2020 Abstract [facility] CONVERSIONS Dental, Provider, DDS Social [...] Description 06/05/2025 1:00 PM EST Office Visit [facility] [address] [place] [address] Chari Greenwood [address] [place] [address] documented as of this encounter Visit Diagnoses Not on filedocumented in this encounter
[2024-12-11 17:17] LABS: Appearance Urine Clear; Glucose Urine UA Negative (Negative); PH 5.5 (5.0-9.0); Specific Gravity - Urine 1.020 (1.005-1.025); UMIC TRIGGER UA YES; UPreg QC Valid YES
[2024-12-11 17:26] LABS: Cannabinoid Screen Urine Not Detected (Not Detect)
[2024-12-11 17:27] LABS: MANUAL DIFF FLAG NO
[2024-12-11 17:29] LABS: Hematocrit 39.3 % (37.0-47.0); Hemoglobin 13.3 g/dl (12.0-16.0); Imm Gran Abs Auto 0.01 X10*3/uL (0.00-0.03); Imm Gran Pct Auto 0.1 % (0.0-0.4); Lymphocytes Absolute Auto 2.7 X10*3/uL (1.2-4.9); Mean Corpuscular HGB Conc 33.8 g/dl (31.0-35.0); Mean Corpuscular Hemoglobin 33.5 pg (27.0-33.0); Mean Corpuscular Volume 99.0 fL (80.0-98.0); NRBC Abs Auto 0.000 X10*3/uL (0.0-0.012); NRBC Pct Auto 0.0 /100WBC (0.0-0.2); Platelet Count 301 X10*3/uL (160-400); Red Blood Count 3.97 X10*6/uL (4.20-5.50); White Blood Count 7.7 X10*3/uL (4.8-10.8)
--- NOTE | 2024-12-11 17:38 | ED.PSYCH ---
HPI - Psych General Chief Complaint: Psychiatric Symptoms Stated Complaint: SI, Anxiety Time Seen by Provider: 12/11/24 15:27 Source: patient, EMS and RN notes reviewed Mode of arrival: EMS Limitations: no limitations History of Present Illness ED Provider: Michelle Em PA-C HPI Narrative: This is a 54-year-old female, with a past medical history of PE on Eliquis, depression, anxiety, hypotension, PTSD, MIGUEL, hypercholesterolemia, diverticulosis, CKD stage 3, degenerative disc disease, migraine, GERD, hyperlipidemia, who presents emergency department with concerns of increasing anxiety over the last 2 days. Patient denies any recent life stressors to contribute to her worsening mental health. Patient also reports that she has had some abdominal pain over the last 5 days. She denies any fevers, chills, severe chest pain, shortness for breath. She does endorse some nausea, and urinary frequency, urgency, dysuria. She also reports constipation, which is typical of her, last moved her bowels this morning. No bloody or black stool. She denies taking any medications at home to treat her current symptoms. She does admit to having some suicidal ideation, she does report a plan however does not elaborate on this with daughter in room. No homicidal ideation. She does report auditory and visual hallucinations with a known individuals telling her to harm herself. No alcohol or drug use. She is a nonsmoker. No other complaints or concerns at this time. MD complaint: suicidal ideation, feels depressed, homicidal ideation and anxiety Duration: constant History of same: Yes Relieving factors: none Exacerbating factors: none Associated psychiatric symptoms: depression, suicidal ideation, homicidal ideation, auditory hallucinations and visual hallucinations Associated symptoms: nausea Treatments prior to arrival: none If self harm: admits thoughts of self harm and has plan Related Data Home Medications ?Medication ?Instructions ?Recorded ?Confirmed topiramate 25 mg tablet 25 mg PO DAILY 06/18/24 12/11/24 verapamil 40 mg tablet 40 mg PO BID 10/30/24 12/11/24 lorazepam 1 mg tablet 1 mg PO TID PRN Anxiety 12/11/24 12/11/24 pantoprazole 40 mg tablet,delayed 40 mg PO QAM 12/11/24 12/11/24 release Previous Rx's ?Medication ?Instructions ?Recorded docusate sodium 100 mg capsule 100 mg PO DAILY #90 caps 04/15/24 apixaban 5 mg tablet (Eliquis) 5 mg PO BID 30 days #60 tabs 05/15/24 famotidine 20 mg tablet 20 mg PO BEDTIME #90 tabs 09/16/24 linaclotide 290 mcg capsule 290 mcg PO QAM #30 caps 09/16/24 (Linzess) cholecalciferol (vitamin D3) 25 25 mcg PO DAILY 90 days #90 caps 09/19/24 mcg (1,000 unit) capsule (Vitamin D3) meclizine 25 mg tablet 25 mg PO TID PRN dizziness 30 days 09/30/24 #90 tabs melatonin 5 mg tablet 10 mg (2 x 5 mg) PO BEDTIME PRN 09/30/24 Insomnia 30 days #60 tabs gabapentin 800 mg tablet 800 mg PO TID 30 days #90 tabs 10/15/24 pantoprazole 40 mg tablet,delayed 40 mg PO QAM #90 tabs 12/03/24 release sucralfate 100 mg/mL oral 10 ml PO BID #414 mL 12/03/24 suspension (Carafate) Allergies Allergy/AdvReac Type Severity Reaction Status Date / Time ibuprofen (From Motrin) Allergy Unknown Verified 12/11/24 15:45 acetaminophen AdvReac Intermediate Liver Verified 11/25/24 15:26 problems atorvastatin AdvReac Intermediate elevated Verified 11/25/24 15:26 LFTs rosuvastatin AdvReac Intermediate elevated Verified 11/25/24 15:26 LFTs Review of Systems Review of Systems: Yes all other systems are reviewed and are negative Constitutional: Constitutional: Reports as per [facility] Past Medical History Medical History Pure hypercholesterolemia Left breast mass Pulmonary nodules Chronic kidney disease, stage III (moderate) Obesity (BMI 30-39.9) Renal cyst Diverticulosis Tubular adenoma Asthma Spondylosis of lumbar spine Sacroiliitis Dizziness of unknown etiology Chronic constipation Hx of schizophrenia Panic attacks PTSD (post-traumatic stress disorder) Dyspareunia Pyelonephritis Ingrown toenail Iron deficiency anemia Major depression, recurrent Anxiety Insomnia Tremor Orthostatic hypotension Incisional hernia without obstruction or gangrene Avascular necrosis of femoral head Bilateral carpal tunnel syndrome Peroneal neuropathy Lumbar degenerative disc disease Vitamin D deficiency GERD (gastroesophageal reflux disease) Migraine Hyperlipidemia Surgical History Hx of lithotripsy History of left nephrectomy (~1999) History of colonoscopy History of surgery Hx of cystoscopy History of bilateral breast reduction surgery History of hysterectomy History of cholecystectomy History of endoscopy (~06/2016) History of bladder repair surgery (~03/2015) S/P cystoscopy (~07/30/12) S/P panniculectomy History of hernia repair (~03/29/10) History of bladder surgery (~10/2009) History of gastric bypass (~2008) History of incisional hernia repair (~1999) Hx of umbilical hernia repair (~1999) S/P laparoscopic sleeve gastrectomy Family History Family History Father Liver cancer Mother Breast cancer Sister Lung cancer Other Mental health problem Social History Social History Household Members: Family Housing: House Are you a primary careers counsellor to a significant other at home: No Do you presently have visiting nurse or other home services: No Alcohol intake: never Patient Tobacco Use Status: Never used Tobacco Smoked in Last 30 Days: No e-Cigarette/Vaping Use: Never Used Second Hand Smoke Exposure: No Use of substances other than those prescribed or required for medical reasons: No Advance Directives: Yes Advance Directives on File: Yes Advance Directives Date on File: 07/12/21 service: No Current occupational status: disabled Sexual orientation: Straight/Heterosexual Gender identity: Female Cognitive needs: No Hearing needs: No Vision needs: Yes Physical Exam Vital Signs: Vital Signs: Last Vital Signs Temp 97.9 F 12/12/24 07:32 Pulse 87 12/12/24 07:32 Resp 16 12/12/24 07:32 BP 98/63 12/12/24 07:32 Pulse Ox 99 12/12/24 07:32 O2 Del Method Room Air 12/12/24 07:32 BMI result Body Mass Index 31.9 Const: General: cooperative, comfortable and no acute distress Orientation/consciousness: patient oriented x3 Limitations: no limitations HEENT: Head: Yes normal to inspection, Yes normocephalic and Yes atraumatic Ears: hearing grossly normal bilaterally General nose exam: Normal external nose present Face and sinus: Yes normal facial exam Mouth: Normal oral and palatal mucosa present, oropharynx normal and moist mucous membranes Throat: Yes posterior oropharynx normal Eyes: General: appearance normal, both eyes and all related structures Eyelids: Yes eyelids normal Conjunctivae: conjunctivae normal Sclerae: sclerae normal Pupils: Equal, round and reactive pupils present EOM: EOMs intact bilaterally Neck: Neck: Yes normal visual inspection, Yes full ROM and Yes no lymphadenopathy Lymphatic: no lymphadenopathy noted Chest: Chest palpation & inspection: normal inspection of the chest Resp: Effort & Inspection: normal respiratory effort and able to speak in complete sentences Auscultation: clear to auscultation bilaterally, no crackles, no rales, no rhonchi and no wheezes Cardio: Rate: regular rate Rhythm: regular rhythm Heart sounds: S1 normal heart sound present and S2 normal heart sound present GI: Other: Abdomen is soft with diffuse tenderness noted, more specifically in the epigastrium and right upper quadrant and right lower quadrant. No rebound or guarding. Inspection: Yes normal to inspection Skin: General skin exam: no rashes or lesions noted Trauma: no lacerations or abrasions Wounds: no wounds Neuro: General: patient oriented x3 and moves all extremities Cranial nerves: Yes Equal, round and reactive pupils present Extrem: General: Yes normal to inspection Right upper extremity: normal to inspection Left upper extremity: normal to inspection Right lower extremity: normal to inspection Left lower extremity: normal to inspection Course Reevaluation(s) Reevaluation #1: 8:05 PM 12/11/2024 (Munira CORONA): Patient is signed out to this provider at shift change, in summary the patient is a 54-year-old female presenting to the ED for anxiety with hallucinations and suicidal ideation with a formulated plan which she did not avulsion to the original provider. The patient was evaluated by psychiatry and placed on an inpatient bed search, however patient then began complaining of abdominal pain. An abdominal CT and additional laboratory workup was obtained, at time of sign-out the patient's abdominal CT, EKG, troponin, and lipase were pending. At this time the patient's troponin and lipase have resulted and are within normal limits. Patient's EKG shows a sinus rhythm, no ischemia. The patient's CT abdomen is still pending at this time. Of note at this time the patient became highly anxious, pulled out her IV, and began attempting to walk out of the department. Patient was able to be redirected, IV site was bandaged, and patient was offered p.o. Ativan which she accepted. Pending unremarkable CT abdomen the patient will be fully medically cleared and appropriate for placement in Behavioral Health observation. 8:30 PM 12/11/2024 (Munira CORONA): Patient appears to have responded well to p.o. Ativan. The patient's CT has resulted and shows mild right hydronephrosis without hydroureter or an obstructing stone. Patient is medically cleared for inpatient bed search. Reevaluation #2: Time: 06:58 Date: 12/12/24 Provider: Ree Anderson, DO Patient in physician observation for psychiatric evaluation.? No acute events reported overnight. No current complaints. VS stable.? Patient is in bed search status Will continue to monitor. Reevaluation #3: Time: 10:58 Date: 12/12/24 Provider: Ree Anderson DO Physician observation ended at 1058am. Patient to be admitted as inpatient to psychiatry. Medications Administered Generic Name Dose Route Start Last Admin Trade Name Freq PRN Reason Stop Dose Admin Apixaban 5 mg 12/12/24 09:00 12/12/24 09:00 Apixaban 5 Mg Tablet PO 5 mg BID JYOTHI Administration Docusate Sodium 100 mg 12/12/24 09:00 12/12/24 09:00 Docusate Sodium 100 Mg Capsule PO 100 mg DAILY JYOTHI Administration Gabapentin 800 mg 12/12/24 09:00 12/12/24 09:00 Gabapentin 400 Mg Capsule PO 800 mg TID JYOTHI Administration Sucralfate 1 gm 12/12/24 09:00 12/12/24 09:00 Sucralfate Oral Suspension 1 Gm/10 Ml Oral.Susp PO 1 gm BID JYOTHI Administration Topiramate 25 mg 12/12/24 09:00 12/12/24 09:00 Topiramate 25 Mg Tablet PO 25 mg DAILY JYOTHI Administration Vitamin D 25 mcg 12/12/24 09:00 12/12/24 09:00 Cholecalciferol (Vitamin D3) 25 Mcg Tablet PO 25 mcg DAILY JYOTHI Administration Discontinued Medications Generic Name Dose Route Start Last Admin Trade Name Freq PRN Reason Stop Dose Admin Iohexol 100 ml 12/11/24 18:59 12/11/24 18:59 Iohexol 350 Mg/Ml 100 Ml Infus..Btl IV 12/11/24 19:00 85 ml ONCE ONE Administration Lorazepam 1 mg 12/11/24 17:54 12/11/24 18:08 Lorazepam 1 Mg Tablet PO 12/11/24 17:55 1 mg ONCE ONE Administration Lorazepam 2 mg 12/11/24 20:02 12/11/24 20:07 Lorazepam 1 Mg Tablet PO 12/11/24 20:03 2 mg ONCE ONE Administration Morphine Sulfate 4 mg 12/11/24 17:09 12/11/24 17:34 Morphine Sulfate 4 Mg/Ml Cartridge IVPUSH 12/11/24 17:10 4 mg ONCE ONE Administration Protocol Ondansetron HCl 4 mg 12/11/24 17:09 12/11/24 17:34 Ondansetron Hcl 4 Mg/2 Ml Vial IVPUSH 12/11/24 17:10 4 mg ONCE ONE Administration Trazodone HCl 50 mg 12/12/24 00:32 12/12/24 00:38 Trazodone Hcl 50 Mg Tablet PO 12/12/24 00:33 50 mg ONCE ONE Administration Medical Decision Making Medical Decision Making MDM Narrative: This is a 54-year-old female who presents emergency department with concerns of increasing anxiety, auditory and visual hallucinations, and suicidal ideation. Patient also with abdominal pain. On arrival, vital signs within normal limits. She is speaking full sentences under no acute distress. She does have tenderness palpation in the epigastrium, right upper quadrant or right lower quadrant. Differential diagnoses include anxiety, depression, cholecystitis, cholangitis, diverticulitis, diverticulosis, appendicitis. Plan: Labs, EKG, urinalysis, CT abdomen and pelvis, will medicate with IV morphine and Zofran. Patient also will be seen by the care team. 7:13 PM 12/11/2024 (Michelle Em PA-C): waiting for CT abdomen and pelvis to return, labs returned, she has no leukocytosis, stable H&H, chemistry revealing slight elevation in BUN, no evidence of EHSAN, slight elevation in AST ALT at 36 and 37, UA revealing large blood, and RBCs. Urine tox negative. Sign out given to my colleague, Mekhi Bhandari PA-C pending troponin, EKG, lipase, and CT abd/pelvis. If she is medically cleared, she will be made a inpatient bed search. She was already seen by the care team. Differential Diagnosis Differential Diagnoses: The differential diagnosis associated with the presentation includes See above Admission/Observation Consideration of admission/observation: Escalation of care including admission/observation considered Lab Data [facility] Lab Attestation statement: I reviewed the patient's lab results. See MDM and course 12/11/24 17:17 12/11/24 17:17 Labs: Lab Results 12/11/24 12/11/24 12/11/24 Range/Units 17:08 17:17 17:18 WBC 7.7 (4.8-10.8) X10*3/uL RBC 3.97 L (4.20-5.50) X10*6/uL Hgb 13.3 (12.0-16.0) g/dl Hct 39.3 (37.0-47.0) % MCV 99.0 H (80.0-98.0) fL MCH 33.5 H (27.0-33.0) pg MCHC 33.8 (31.0-35.0) g/dl RDW 12.5 (11.0-16.0) % Plt Count 301 (160-400) X10*3/uL MPV 9.2 L (9.4-12.3) fL Immature Gran % (Auto) 0.1 (0.0-0.4) % Neut % (Auto) 56.5 (45-73) % Lymph % (Auto) 35.5 (20-40) % [place] % (Auto) 6.4 (2-11) % Eos % (Auto) 0.8 (0-4) % Baso % (Auto) 0.7 (0-2) % Lymph # (Auto) 2.7 (1.2-4.9) X10*3/uL [place] # (Auto) 0.5 (0.1-1.2) X10*3/uL Eos # (Auto) 0.1 (0.0-0.4) X10*3/uL Baso # (Auto) 0.1 (0.0-0.2) X10*3/uL Abs Immat Gran (auto) 0.01 (0.00-0.03) X10*3/uL Absolute Neuts (auto) 4.3 (2.0-8.3) x10*3/uL Absolute Nucleated RBC 0.000 (0.0-0.012) X10*3/uL Nucleated RBC % (auto) 0.0 (0.0-0.2) /100WBC Sodium 143 (135-145) mmol/L Potassium 4.4 (3.3-5.1) mmol/L Chloride 108 (96-108) mmol/L Carbon Dioxide 24 (22-29) mmol/L Anion Gap 15 (12-20) BUN 20 H (9-16) mg/dL Creatinine 1.10 (0.5-1.4) mg/dL Estim Creat Clear Calc 58.4 Estimated GFR 52 Random Glucose 96 (60-115) mg/dL Calcium 8.9 (8.4-10.2) mg/dL Total Bilirubin 0.4 (0.0-1.0) mg/dL AST 36 H (5-31) U/L ALT 37 H (0-31) U/L Alkaline Phosphatase 114 (39-117) U/L Troponin I High Sens < 2.7 (<3.5-17.0) ng/L Total Protein 6.9 (6.5-8.0) g/dL Albumin 3.9 (3.5-5.0) g/dL Lipase 20 (8-78) U/L Urine Color Yellow Urine Appearance Clear Urine pH 5.5 (5.0-9.0) Ur Specific [place] 1.020 (1.005-1.025) Urine Protein Trace (Neg-Trace) mg/dL Urine Glucose (UA) Negative (Negative) mg/dL Urine Ketones Negative (Negative) mg/dL Urine Blood Large (3+) H (Negative) Urine Nitrite Negative (Negative) Ur Leukocyte Esterase Negative (Negative) Urine RBC >20 H (0-2) /HPF Urine WBC 0-5 (0-5) /HPF Ur Squamous Epith Cells 6-10 (0-2) /HPF Urine Bacteria None Seen (None Seen) Hyaline Casts 3-5 (0-2) /LPF Urine Test NEGATIVE (NEGATIVE) Salicylates < 5.0 L (15-30) mg/dL Urine Opiates Screen Not Detected (Not Detect) Ur Buprenorphine Scrn Not Detected (Not Detect) ng/mL Ur Oxycodone Screen Not Detected (Not Detect) ng/mL Urine Methadone Screen Not Detected (Not Detect) ng/mL Urine Fentanyl Screen Not Detected (Not Detect) Acetaminophen < 3 (<30) mcg/mL Ur Barbiturates Screen Not Detected (Not Detect) Ur Phencyclidine Scrn Not Detected (Not Detect) Ur Amphetamines Screen Not Detected (Not Detect) U Benzodiazepines Scrn Not Detected (Not Detect) Urine Cocaine Screen Not Detected (Not Detect) U Marijuana (THC) Screen Not Detected (Not Detect) Ethyl Alcohol < 10 mg/dL COVID-19 ([place]) Negative (Negative) COVID-19 Clin Com - Radiology Impression Radiologist Impression: CLINICAL HISTORY: RUQ pain, RLQ pain CT abdomen and pelvis with contrast Comparison: US/SR - US ABDOMEN LIMITED WITH LIVER ELASTOGRAPHY - 04/29/24 08:[address]/NH/SR - CT ABDOMEN PELVIS WO IV CON - 01/25/24 18:07 EDT Findings: Small hiatal hernia. No consolidation or effusion. Small hemangioma in the inferior right hepatic lobe. Cholecystectomy. Fatty atrophy of the head and uncinate process of the pancreas. Spleen and adrenal glands are within normal limits. Left nephrectomy. Mild right hydronephrosis without hydroureter or obstructing stone seen. Multiple right renal cysts. Nonobstructing calculus in the lower pole of the right kidney. Postsurgical changes in the stomach. No bowel obstruction, pneumatosis or pneumoperitoneum. Normal appendix. Hysterectomy. Urinary bladder is within normal limits. The bones are intact. IMPRESSION: Mild right hydronephrosis without hydronephrosis or obstructing stone seen. Normal appendix. This document has been electronically signed by: Richie Donahue MD on 12/11/2024 20:06:21 Discharge Plan Discharge Clinical Impression: Suicidal ideation Patient Disposition: Admitted As Inpatient Interventions: [place]-Suicide Risk Severity Scale Last Done: 12/11/24 15:48
--- NOTE | 2024-12-11 17:42 | ECG_ITS ---
Test Reason : ABDOMINAL PAIN Blood Pressure : */* mmHG Vent. Rate : 64 BPM Atrial Rate : 64 BPM P-R Int : 148 ms QRS Dur : 72 ms QT Int : 446 ms P-R-T Axes : 29 53 25 degrees QTcB Int : 460 ms Normal sinus rhythm Low voltage QRS Borderline ECG When compared with ECG of 01-Feb-2024 08:12, No significant change was found Referred By: Michelle mE Electronically Signed By: Renny Rothman
[2024-12-11 17:43] LABS: COVID-19 Test Negative (Negative); IDNOW Serial# 55D5AD1C
[2024-12-11 17:49] LABS: Acetaminophen LAB < 3 mcg/mL (<30); Salicylate < 5.0 mg/dL (15-30)
[2024-12-11 17:50] LABS: Alanine Aminotransferase 37 U/L (0-31); Albumin Level 3.9 g/dL (3.5-5.0); Alkaline Phosphatase 114 U/L (39-117); Anion Gap 15 (12-20); Aspartate Amino Transferase 36 U/L (5-31); Blood Urea Nitrogen 20 mg/dL (9-16); Calcium 8.9 mg/dL (8.4-10.2); Carbon Dioxide 24 mmol/L (22-29); Chloride 108 mmol/L (96-108); Creatinine Clr Calc Pharmacy 58.4; Estimated Glomerular Filt Rate 52; Potassium 4.4 mmol/L (3.3-5.1); Sodium 143 mmol/L (135-145); Total Protein 6.9 g/dL (6.5-8.0)
[2024-12-11] MEDS: iohexoL 350 MG/ML 100 ML INFUS..BTL IV (18:59)
[2024-12-11 19:47] LABS: Troponin-I High Sensitivity < 2.7 ng/L (<3.5-17.0)
[2024-12-11 19:51] LABS: Lipase 20 U/L (8-78)
--- NOTE | 2024-12-11 20:08 | PC.NURSE ---
pt medicated per MAR.
--- NOTE | 2024-12-11 20:35 | PC.NURSE ---
Pt cleared to go back to the POD per provider Mekhi. POD RN Adrien given verbal report.
[2024-12-12 07:32] VITALS: BP 98/63; PULSE 87; RESP 16; TEMP 36.6; O2SAT 99
--- NOTE | 2024-12-12 07:40 | PC.NURSE ---
Assumed care of patient at 0650, patient appears to be in no apparent distress this am, calm and cooperative, resting in bed, offering no complaints to this RN. Continue plan of care for IPLOC
[2024-12-12] MEDS: Sucralfate Oral Suspension 1 GM/10 ML ORAL.SUSP PO ×2 (09:00→21:08)
--- NOTE | 2024-12-12 11:15 | PC.NURSE ---
Escorted to with staff & security. Admitted to 510-1.
[2024-12-12 12:23] VITALS: BP 111/75; PULSE 68; RESP 18; TEMP 36.2; O2SAT 98
--- NOTE | 2024-12-12 13:12 | PC.ADMIT ---
Patient is a 54-year-old Maldivian speaking female who was admitted to [facility] from the ED Pod for depression, anxiety, and suicidal ideation. The patient skin check completed by two female staff on arrival to the unit, patient signed a CV which was accepted. Patient on 15 checks with 5 checks while using CPAP at night. She reports that things had not been going well in regards to depression, anxiety, and sleep disturbances, however, a week ago the patient began to have command auditory hallucinations which were telling her to hurt herself. She also reports seeing shadows and having intermittent SI with intent and a plan, she reports that she began to act on the plan but did change her mind. Currently she denies SI, denies AH/VH, and reports 8/10 anxiety and 8/10 depression. She feels that she is able to engage with staff if she begins to have thoughts of hurting herself. She denies any current physical complaints. game trapper was used for the admission process, patient oriented to the unit, menus completed.
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
[2024-12-12 15:24] VITALS: BMI 31.9
[2024-12-12 20:00] VITALS: BP 128/89; PULSE 71; RESP 18; TEMP 36.6; O2SAT 98
[2024-12-13 07:46] VITALS: BP 112/62; PULSE 56; RESP 18; TEMP 36.4; O2SAT 97
[2024-12-13] MEDS: Sucralfate Oral Suspension 1 GM/10 ML ORAL.SUSP PO ×2 (08:57→20:21)
[2024-12-13 09:10] LABS: Hemoglobin A1C 129.1273 umol/L; Total Hemoglobin (HGBA1C) 3637.9335 umol/L
[2024-12-13 09:28] LABS: Alanine Aminotransferase 630 U/L (0-31); Albumin Level 3.9 g/dL (3.5-5.0); Alkaline Phosphatase 194 U/L (39-117); Anion Gap 10 (12-20); Aspartate Amino Transferase 345 U/L (5-31); Blood Urea Nitrogen 18 mg/dL (9-16); Calcium 9.0 mg/dL (8.4-10.2); Carbon Dioxide 29 mmol/L (22-29); Chloride 106 mmol/L (96-108); Cholesterol 257 mg/dL (<200); Creatinine Clr Calc Pharmacy 62.5; Estimated Glomerular Filt Rate 56; HDL Cholesterol 78 mg/dL (>40); Potassium 4.2 mmol/L (3.3-5.1); Sodium 141 mmol/L (135-145); Total Protein 6.9 g/dL (6.5-8.0); Triglycerides 94 mg/dL (<150)
[2024-12-13 09:43] LABS: Thyroid Stimulating Hormone 1.02 uIU/mL (0.32-4.0)
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
--- NOTE | 2024-12-13 10:28 | HO.PM.IMCN ---
History of Present Illness Data of Consult Service Date: 12/13/24 Primary Care Provider: Hung Montelongo MD HPI Reason for consult: Elevated LFTs 54-year-old female, with a past medical history of PE on Eliquis, depression, anxiety, hypotension, PTSD, MIGUEL, hypercholesterolemia, diverticulosis, CKD stage 3, degenerative disc disease, migraine, GERD, hyperlipidemia, who presented to emergency department with increased anxiety, also reported some abdominal pain. Patient is being seen were elevated LFTs. She denies any fevers, chills, severe chest pain, shortness for breath. She has tenderness to palpation RUQ. Eating and drinking. Denies nausea or vomiting. Reports moving her bowels, denies any dysuria. Patient with a history of elevated LFTs in 2023 felt to be related to drug-induced liver injury. She had an extensive workup at that time. Review of Systems Review of Systems: Denies any shortness of breath, chest pain, dizziness, lightheadedness, abdominal pain or discomfort, nausea vomiting or diarrhea PMFSH Medical History Pure hypercholesterolemia Left breast mass Pulmonary nodules Chronic kidney disease, stage III (moderate) Obesity (BMI 30-39.9) Renal cyst Diverticulosis Tubular adenoma Asthma Spondylosis of lumbar spine Sacroiliitis Dizziness of unknown etiology Chronic constipation Hx of schizophrenia Panic attacks PTSD (post-traumatic stress disorder) Dyspareunia Pyelonephritis Ingrown toenail Iron deficiency anemia Major depression, recurrent Anxiety Insomnia Tremor Orthostatic hypotension Incisional hernia without obstruction or gangrene Avascular necrosis of femoral head Bilateral carpal tunnel syndrome Peroneal neuropathy Lumbar degenerative disc disease Vitamin D deficiency GERD (gastroesophageal reflux disease) Migraine Hyperlipidemia Family History Father Liver cancer Mother Breast cancer Sister Lung cancer Other Mental health problem Surgical History Hx of lithotripsy History of left nephrectomy (~1999) History of colonoscopy History of surgery Hx of cystoscopy History of bilateral breast reduction surgery History of hysterectomy History of cholecystectomy History of endoscopy (~06/2016) History of bladder repair surgery (~03/2015) S/P cystoscopy (~07/30/12) S/P panniculectomy History of hernia repair (~03/29/10) History of bladder surgery (~10/2009) History of gastric bypass (~2008) History of incisional hernia repair (~1999) Hx of umbilical hernia repair (~1999) S/P laparoscopic sleeve gastrectomy Social History Household Members: Spouse Housing: House Are you a primary health care marketing specialist to a significant other at home: No Do you presently have visiting nurse or other home services: No Alcohol intake: never Patient Tobacco Use Status: Never used Tobacco Smoked in Last 30 Days: No e-Cigarette/Vaping Use: Never Used Second Hand Smoke Exposure: No Use of substances other than those prescribed or required for medical reasons: No Currently Displaying Signs/Symptoms of Drug Intoxication Withdrawal: No Have you been hit, kicked, punched, or otherwise hurt by someone within the past year? If so, by whom?: No Do you feel safe in your current relationship?: Yes Is there a partner from a previous relationship who is making you feel unsafe now?: No Are you made to feel afraid or neglected: No Spiritual Healthcare Practices: None Uatsdin Healthcare Practices: None Cultural Healthcare Practices: None Advance Directives: Yes Advance Directives on File: Yes Advance Directives Date on File: 07/12/21 Do you have thoughts of harming others: None Do you have a plan to hurt others: No Plan Recently lost weight without trying: No Nutrition Risks: No Nutritional Risk Patient : No : No Poor oral hygiene: No service: No Current occupational status: disabled Sexual orientation: Straight/Heterosexual Gender identity: Female Cognitive needs: No Hearing needs: No Vision needs: Yes Meds Allergies Allergy/AdvReac Type Severity Reaction Status Date / Time ibuprofen (From Motrin) Allergy Unknown Verified 12/11/24 15:45 acetaminophen AdvReac Intermediate Liver Verified 11/25/24 15:26 problems atorvastatin AdvReac Intermediate elevated Verified 11/25/24 15:26 LFTs rosuvastatin AdvReac Intermediate elevated Verified 11/25/24 15:26 LFTs Active Medications: Current Medications Al Hydroxide/Mg Hydroxide (Magnesium Hydrox/Alum Hydrox 30 Ml Oral.Susp) 30 ml PO Q6H PRN PRN Reason: Heartburn/Nausea Apixaban (Apixaban 5 Mg Tablet) 5 mg PO BID [facility] Last Admin: 12/13/24 08:56 Dose: 5 mg Cariprazine (Cariprazine Hcl 1.5 Mg Capsule) 4.5 mg PO DAILY [facility] Last Admin: 12/13/24 08:55 Dose: 4.5 mg Docusate Sodium (Docusate Sodium 100 Mg Capsule) 100 mg PO DAILY [facility] Last Admin: 12/13/24 08:56 Dose: 100 mg Famotidine (Famotidine 20 Mg Tablet) 20 mg PO BEDTIME [facility] Last Admin: 12/12/24 21:07 Dose: 20 mg Gabapentin (Gabapentin 400 Mg Capsule) 800 mg PO TID [facility] Last Admin: 12/13/24 08:56 Dose: 800 mg Hydroxyzine HCl (Hydroxyzine Hcl 25 Mg Tablet) 25 mg PO Q6H PRN PRN Reason: mild anxiety Lorazepam (Lorazepam 1 Mg Tablet) 1 mg PO TID PRN PRN Reason: Anxiety Magnesium Hydroxide (Milk Of Magnesia 30 Ml Oral.Susp) 30 ml PO DAILY PRN PRN Reason: Constipation Meclizine HCl (Meclizine Hcl 25 Mg Tablet) 25 mg PO TID PRN PRN Reason: dizziness Melatonin (Melatonin 3 Mg Tablet) 9 mg PO BEDTIME PRN PRN Reason: Insomnia Nicotine Polacrilex (Nicotine Polacrilex 2 Mg Gum) 4 mg BUCCAL Q2H PRN PRN Reason: Nicotine Cravings Non-Formulary Medication (Linaclotide [Linzess]) 290 mcg PO QAM [facility] Omeprazole (Omeprazole 20 Mg Capsule.Dr) 20 mg PO DAILY@0630 [facility] Last Admin: 12/13/24 06:22 Dose: 20 mg Sucralfate (Sucralfate Oral Suspension 1 Gm/10 Ml Oral.Susp) 1 gm PO BID [facility] Last Admin: 12/13/24 08:57 Dose: 1 gm Topiramate (Topiramate 25 Mg Tablet) 25 mg PO DAILY [facility] Last Admin: 12/13/24 08:56 Dose: 25 mg Trazodone HCl (Trazodone Hcl 50 Mg Tablet) 50 mg PO BEDTIME MRX1 PRN PRN Reason: Insomnia Last Admin: 12/12/24 21:07 Dose: 50 mg Vitamin D (Cholecalciferol (Vitamin D3) 25 Mcg Tablet) 25 mcg PO DAILY [facility] Last Admin: 12/13/24 08:57 Dose: 25 mcg Home Medications ?Medication ?Instructions ?Recorded ?Confirmed ?Last Taken ?Type topiramate 25 mg tablet 25 mg PO DAILY 06/18/24 12/11/24 12/11/24 History verapamil 40 mg tablet 40 mg PO BID 10/30/24 12/11/24 12/11/24 History lorazepam 1 mg tablet 1 mg PO TID PRN Anxiety 12/11/24 12/11/24 12/10/24 History pantoprazole 40 mg tablet,delayed 40 mg PO QAM 12/11/24 12/11/24 12/11/24 History release Physical Exam Vital Signs and Narrative: Vital Signs: Last Vital Signs Temp 97.5 F 12/13/24 07:46 Pulse 56 12/13/24 07:46 Resp 18 12/13/24 07:46 BP 112/62 12/13/24 07:46 Pulse Ox 97 12/13/24 07:46 O2 Del Method Room Air 12/13/24 07:46 BMI result Body Mass Index 31.9 CONST: Alert and oriented, in NAD. Well nourished Estonian-speaking only HEENT: Normocephalic, atraumatic, MMM, Eyes clear, Neck supple RESP: Lungs clear, RRR even and regular HEART:,RRR, S1, S2. No murmur, no edema GI:Abdomen Soft, Tender to RUQ, ND. + BS times four :Deferred SKIN: Warm dry and intact, no visible lesions or rashes NEURO:CN II-XII Intact bilaterally, Sensation intact. Speech clear PSYCH: Normal affect Results Labs 12/13/24 08:20 12/13/24 08:20 Labs: Laboratory Results - last 24 hr 12/13/24 08:20 Anion Gap 10 L Estim Creat Clear Calc 62.5 Estimated GFR 56 Random Glucose 100 Estimat Average Glucose 108 Hemoglobin A1c % 5.4 Calcium 9.0 Total Bilirubin 0.6 AST 345 H ALT 630 H Alkaline Phosphatase 194 H Total Protein 6.9 Albumin 3.9 Triglycerides 94 Cholesterol 257 H LDL Cholesterol, Calc 161 H HDL Cholesterol 78 TSH 1.02 Assessment and Plan (1) Abnormal LFTs: Status: Acute Plan Abdominal pain and increased LFTs Patient with tenderness or right upper quadrant, he is afebrile, vitals are stable Limited abdominal Ultrasound pending. Hepatitis panel negative, Lipase and amylase WNL Consulted GI Patient was similar episode in 2023, felt to be due to drug-induced liver injury. Repeat labs in a.m. Await GI recommendations Thank you for allowing me to participate in the care of this patient. Signing off at this time. Please reconsult of any acute concerns or issues arise
[2024-12-13 10:48] LABS: INTERNATIONAL NORM RATIO 1.1 (0.9-1.1); Prothrombin Time 12.1 SEC (10.9-12.4)
[2024-12-13 10:49] LABS: Ammonia 28 umol/L (13-55)
[2024-12-13 10:54] LABS: Lipase 27 U/L (8-78)
[2024-12-13 10:58] LABS: Alanine Aminotransferase 598 U/L (0-31); Albumin Level 3.9 g/dL (3.5-5.0); Alkaline Phosphatase 178 U/L (39-117); Amylase 96 U/L (28-100); Aspartate Amino Transferase 308 U/L (5-31); Total Protein 6.7 g/dL (6.5-8.0)
[2024-12-13 11:18] LABS: HBS Num1 1.52 mIU/mL (0-7.99); HBc Num1 0.13 S/CO (0.00-0.79); HBsAGNum1 0.79 S/CO (0.00-0.99); Hepatitis A Antibody IgM 0.19 Index (0-0.79); Hepatitis B Surface Antigen Negative (Negative); ~HepC Num1 0.13 S/CO (0.00-0.79); ~Hepatitis A Antibody IgM Nonreactive (Nonreactive); ~Hepatitis B Surface Antibody NONREACTIVE (Nonreactive); ~Hepatitis C Antibody Nonreactive (Nonreactive)
--- NOTE | 2024-12-13 14:06 | P.CNGI_ITS ---
History of Present Illness Data of Consult Service Date: 12/13/24 Requesting physician: Bijal Valerio Primary Care Provider: Hung Montelongo MD [facility] Reason for consult: Elevated LFTs This is a 54-year-old female with past medical history of asthma, hyperlipidemia, history of nephrectomy, gastric bypass, schizophrenia, who was currently admitted for inpatient psychiatric care for auditory and visual hallucinations. Gastroenterology has been consulted for elevated LFTs. Patient seen and examined room on M5. Gives a very wick positive review of system including headache, blurry vision, ringing in ears, shortness of breath, left lower quadrant pain, hip pain, itching over her body, pins and needle in her feet. she also reports difficulty passing stools, and has only been passing amrita for the last couple of days. This in the absence of taking Linzess. Tells me that her partner has brought The medication to the hospital just today. Does not report any nausea or difficulty eating. Does not report epigastric or right-sided abdominal pain. No recent travel. Only new med is verapamil. Patient was seen for similar issue in 2023 as well, and at that time elevated LFTs were deemed to be secondary to drug-induced liver injury. At that time, she had workup done for autoimmune hepatitis, celiac disease, alcohol use, chronic hepatitis, AST at that time was 181, ALT 525, normal bilirubin, alk-phos 172. These trended down to near normal within a week. Iron overload, alpha-1 antitrypsin disease, Jean disease. Which were all normal. She has also had multiple FibroSure yours with F0 fibrosis and A0 inflammation. For imaging, she had CT abdomen and pelvis done 2 days ago. She is post cholecystectomy. Personal review of the images show nondilated CBD of 5 mm, without any radiopaque stone or sludge. Review of Systems 2 Review of Systems: As per HPI [facility] Past Medical History Medical History Pure hypercholesterolemia Left breast mass Pulmonary nodules Chronic kidney disease, stage III (moderate) Obesity (BMI 30-39.9) Renal cyst Diverticulosis Tubular adenoma Asthma Spondylosis of lumbar spine Sacroiliitis Dizziness of unknown etiology Chronic constipation Hx of schizophrenia Panic attacks PTSD (post-traumatic stress disorder) Dyspareunia Pyelonephritis Ingrown toenail Iron deficiency anemia Major depression, recurrent Anxiety Insomnia Tremor Orthostatic hypotension Incisional hernia without obstruction or gangrene Avascular necrosis of femoral head Bilateral carpal tunnel syndrome Peroneal neuropathy Lumbar degenerative disc disease Vitamin D deficiency GERD (gastroesophageal reflux disease) Migraine Hyperlipidemia Family History Family History Father Liver cancer Mother Breast cancer Sister Lung cancer Other Mental health problem Surgical History Surgical History Hx of lithotripsy History of left nephrectomy (~1999) History of colonoscopy History of surgery Hx of cystoscopy History of bilateral breast reduction surgery History of hysterectomy History of cholecystectomy History of endoscopy (~06/2016) History of bladder repair surgery (~03/2015) S/P cystoscopy (~07/30/12) S/P panniculectomy History of hernia repair (~03/29/10) History of bladder surgery (~10/2009) History of gastric bypass (~2008) History of incisional hernia repair (~1999) Hx of umbilical hernia repair (~1999) S/P laparoscopic sleeve gastrectomy Social History Social History Household Members: Spouse Housing: House Are you a primary child care team lead to a significant other at home: No Do you presently have visiting nurse or other home services: No Alcohol intake: never Patient Tobacco Use Status: Never used Tobacco Smoked in Last 30 Days: No e-Cigarette/Vaping Use: Never Used Second Hand Smoke Exposure: No Use of substances other than those prescribed or required for medical reasons: No Currently Displaying Signs/Symptoms of Drug Intoxication Withdrawal: No Have you been hit, kicked, punched, or otherwise hurt by someone within the past year? If so, by whom?: No Do you feel safe in your current relationship?: Yes Is there a partner from a previous relationship who is making you feel unsafe now?: No Are you made to feel afraid or neglected: No Spiritual Healthcare Practices: None Yazidism Healthcare Practices: None Cultural Healthcare Practices: None Advance Directives: Yes Advance Directives on File: Yes Advance Directives Date on File: 07/12/21 Do you have thoughts of harming others: None Do you have a plan to hurt others: No Plan Recently lost weight without trying: No Nutrition Risks: No Nutritional Risk Patient : No : No Poor oral hygiene: No service: No Current occupational status: disabled Sexual orientation: Straight/Heterosexual Gender identity: Female Cognitive needs: No Hearing needs: No Vision needs: Yes Meds Allergies Allergy/AdvReac Type Severity Reaction Status Date / Time ibuprofen (From Motrin) Allergy Unknown Verified 12/11/24 15:45 acetaminophen AdvReac Intermediate Liver Verified 11/25/24 15:26 problems atorvastatin AdvReac Intermediate elevated Verified 11/25/24 15:26 LFTs rosuvastatin AdvReac Intermediate elevated Verified 11/25/24 15:26 LFTs Active Medications: Current Medications Al Hydroxide/Mg Hydroxide (Magnesium Hydrox/Alum Hydrox 30 Ml Oral.Susp) 30 ml PO Q6H PRN PRN Reason: Heartburn/Nausea Apixaban (Apixaban 5 Mg Tablet) 5 mg PO BID [facility] Last Admin: 12/13/24 08:56 Dose: 5 mg Cariprazine (Cariprazine Hcl 1.5 Mg Capsule) 4.5 mg PO DAILY [facility] Docusate Sodium (Docusate Sodium 100 Mg Capsule) 100 mg PO DAILY [facility] Last Admin: 12/13/24 08:56 Dose: 100 mg Famotidine (Famotidine 20 Mg Tablet) 20 mg PO BEDTIME [facility] Last Admin: 12/12/24 21:07 Dose: 20 mg Gabapentin (Gabapentin 400 Mg Capsule) 800 mg PO TID [facility] Last Admin: 12/13/24 08:56 Dose: 800 mg Hydroxyzine HCl (Hydroxyzine Hcl 25 Mg Tablet) 25 mg PO Q6H PRN PRN Reason: mild anxiety Lorazepam (Lorazepam 1 Mg Tablet) 1 mg PO TID PRN PRN Reason: Anxiety Magnesium Hydroxide (Milk Of Magnesia 30 Ml Oral.Susp) 30 ml PO DAILY PRN PRN Reason: Constipation Meclizine HCl (Meclizine Hcl 25 Mg Tablet) 25 mg PO TID PRN PRN Reason: dizziness Melatonin (Melatonin 3 Mg Tablet) 9 mg PO BEDTIME PRN PRN Reason: Insomnia Nicotine Polacrilex (Nicotine Polacrilex 2 Mg Gum) 4 mg BUCCAL Q2H PRN PRN Reason: Nicotine Cravings Pt Own (Linaclotide [Linzess] 290 Mcg Capsule) 290 mcg PO DAILY [facility] Omeprazole (Omeprazole 20 Mg Capsule.Dr) 20 mg PO DAILY@0630 [facility] Last Admin: 12/13/24 06:22 Dose: 20 mg Sucralfate (Sucralfate Oral Suspension 1 Gm/10 Ml Oral.Susp) 1 gm PO BID [facility] Last Admin: 12/13/24 08:57 Dose: 1 gm Topiramate (Topiramate 25 Mg Tablet) 25 mg PO DAILY [facility] Last Admin: 12/13/24 08:56 Dose: 25 mg Trazodone HCl (Trazodone Hcl 50 Mg Tablet) 50 mg PO BEDTIME MRX1 PRN PRN Reason: Insomnia Last Admin: 12/12/24 21:07 Dose: 50 mg Vitamin D (Cholecalciferol (Vitamin D3) 25 Mcg Tablet) 25 mcg PO DAILY [facility] Last Admin: 12/13/24 08:57 Dose: 25 mcg Home Medications ?Medication ?Instructions ?Recorded ?Confirmed ?Last Taken ?Type topiramate 25 mg tablet 25 mg PO DAILY 06/18/2411/2912/11/24 History verapamil 40 mg tablet 40 mg PO BID 10/30/2412/11/24 History lorazepam 1 mg tablet 1 mg PO TID PRN Anxiety 11/2912/11/24 12/10/24 History pantoprazole 40 mg tablet,delayed 40 mg PO QAM 5 12/11/24 12/11/24 History release Physical Exam 2 Exam: Exam: middle-aged female No acute distress Nonicteric Abdomen soft, nondistended, mild tenderness in left lower quadrant, no guarding No lower extremity edema Vital Signs: Vital Signs: Last Vital Signs Temp 97.5 F 12/13/24 07:46 Pulse 56 12/13/24 07:46 Resp 18 12/13/24 07:46 BP 112/62 12/13/24 07:46 Pulse Ox 97 12/13/24 07:46 O2 Del Method Room Air 12/13/24 07:46 BMI result Body Mass Index 31.9 Results Labs 12/13/24 08:20 12/13/24 08:20 Labs: BMP 12/13/24 08:20 Sodium 141 Potassium 4.2 Chloride 106 Carbon Dioxide 29 BUN 18 H Creatinine 1.03 Calcium 9.0 Cardiac Enzymes 12/13/24 Range/Units 10:27 Total Creatine Kinase 54 (26-140) U/L Liver Function 08/15/25 08/15/25 Range/Units 08:20 10:27 Total Bilirubin 0.6 0.5 (0.0-1.0) mg/dL Direct Bilirubin 0.2 (0.0-0.5) mg/dL AST 345 H 308 H (5-31) U/L ALT 630 H 598 H (0-31) U/L Alkaline Phosphatase 194 H 178 H (39-117) U/L Albumin 3.9 3.9 (3.5-5.0) g/dL Assessment and Plan (1) Elevated LFTs: Status: Acute (2) Chronic constipation: Status: Acute (3) IBS (irritable bowel syndrome): Status: Acute Plan DDx for LFTs include CBD stone vs SOD vs DILI. Prev w/up neg for other causes such as wilsons, A1AT, iron overload, AIH, chronic infectious hep. Plan: - Check US Abd - Monitor LFTs - If do not spontaneously trend down over 48-72 hours like last time, may need MRI liver protocol Pt also with known IBS and currently reports worsening of constipation. This is likely in the setting of missing Linzess. Plan: - resume Linzess - add MiraLax 1 to 2 times a day x 2 days to aid in constipation - fiber capsules Thank you for allowing me to participate in her care. Please do not hesitate to reach out for any questions or concerns. Procedures Date of Service Date of Service: 12/14/24
[2024-12-13 14:55] LABS: MANUAL DIFF FLAG NO
[2024-12-13 14:59] LABS: Hematocrit 41.5 % (37.0-47.0); Hemoglobin 13.8 g/dl (12.0-16.0); Imm Gran Abs Auto 0.01 X10*3/uL (0.00-0.03); Imm Gran Pct Auto 0.1 % (0.0-0.4); Lymphocytes Absolute Auto 2.1 X10*3/uL (1.2-4.9); Mean Corpuscular HGB Conc 33.3 g/dl (31.0-35.0); Mean Corpuscular Hemoglobin 33.4 pg (27.0-33.0); Mean Corpuscular Volume 100.5 fL (80.0-98.0); NRBC Abs Auto 0.000 X10*3/uL (0.0-0.012); NRBC Pct Auto 0.0 /100WBC (0.0-0.2); Platelet Count 294 X10*3/uL (160-400); Red Blood Count 4.13 X10*6/uL (4.20-5.50); White Blood Count 6.8 X10*3/uL (4.8-10.8)
[2024-12-13] MEDS: PT OWN (Linaclotide [Linzess] 290 mcg capsule) 290 EACH PO (15:09)
[2024-12-13 20:00] VITALS: BP 124/62; PULSE 80; TEMP 35.9; O2SAT 96
[2024-12-13] MEDS: Butalb/Acetamin/Caff 50/325/40 TABLET 1 TAB PO (20:15)
[2024-12-14 08:00] VITALS: BP 110/62; PULSE 64; RESP 18; TEMP 36.6; O2SAT 99
[2024-12-14] MEDS: PT OWN (Linaclotide [Linzess] 290 mcg capsule) 290 EACH PO (08:29)
[2024-12-14] MEDS: Sucralfate Oral Suspension 1 GM/10 ML ORAL.SUSP PO ×2 (08:31→20:30)
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
[2024-12-14 12:53] VITALS: BP 100/56
[2024-12-14 13:25] LABS: Ammonia 28 umol/L (13-55)
[2024-12-14 13:38] LABS: Alanine Aminotransferase 397 U/L (0-31); Albumin Level 4.0 g/dL (3.5-5.0); Alkaline Phosphatase 176 U/L (39-117); Anion Gap 15 (12-20); Aspartate Amino Transferase 124 U/L (5-31); Blood Urea Nitrogen 25 mg/dL (9-16); Calcium 9.3 mg/dL (8.4-10.2); Carbon Dioxide 23 mmol/L (22-29); Chloride 110 mmol/L (96-108); Creatinine Clr Calc Pharmacy 48.4; Estimated Glomerular Filt Rate 41; Potassium 4.9 mmol/L (3.3-5.1); Sodium 143 mmol/L (135-145); Total Protein 6.9 g/dL (6.5-8.0)
[2024-12-14 13:58] LABS: Appearance Urine Clear; Glucose Urine UA Negative (Negative); PH 5.5 (5.0-9.0); Specific Gravity - Urine 1.025 (1.005-1.025); UMIC TRIGGER UACC YES
[2024-12-14 16:11] VITALS: BP 122/69; PULSE 66
[2024-12-14] MEDS: Butalb/Acetamin/Caff 50/325/40 TABLET 1 TAB PO (16:20)
[2024-12-14 20:00] VITALS: BP 127/84; PULSE 64; RESP 16; TEMP 36.4; O2SAT 97
[2024-12-15 08:00] VITALS: BP 109/71; PULSE 63; RESP 16; TEMP 36.3; O2SAT 100
[2024-12-15] MEDS: Sucralfate Oral Suspension 1 GM/10 ML ORAL.SUSP PO ×2 (08:35→20:50)
[2024-12-15] MEDS: PT OWN (Linaclotide [Linzess] 290 mcg capsule) 290 EACH PO (08:35)
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
[2024-12-15 11:05] LABS: Alanine Aminotransferase 290 U/L (0-31); Albumin Level 3.9 g/dL (3.5-5.0); Alkaline Phosphatase 157 U/L (39-117); Aspartate Amino Transferase 75 U/L (5-31); Total Protein 6.9 g/dL (6.5-8.0)
[2024-12-15 12:33] VITALS: BP 112/67
[2024-12-15 15:59] VITALS: BP 107/65; PULSE 72
[2024-12-15 19:37] VITALS: BP 136/61; PULSE 63; TEMP 36.4; O2SAT 98
[2024-12-16] VITALS (7 sets, daily range): BP systolic 106–132; BP diastolic 56–68; PULSE 60–66; RESP 18; TEMP 36.4–36.9; O2SAT 99–100
[2024-12-16] MEDS: PT OWN (Linaclotide [Linzess] 290 mcg capsule) 290 EACH PO (08:22)
[2024-12-16] MEDS: Sucralfate Oral Suspension 1 GM/10 ML ORAL.SUSP PO (08:25)
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
[2024-12-17 07:56] VITALS: BP 107/57; PULSE 52; RESP 16; TEMP 36.4; O2SAT 98
[2024-12-17] MEDS: Sucralfate Oral Suspension 1 GM/10 ML ORAL.SUSP PO ×2 (08:16→20:30)
[2024-12-17] MEDS: PT OWN (Linaclotide [Linzess] 290 mcg capsule) 290 EACH PO (08:16)
[2024-12-17 08:37] LABS: Alanine Aminotransferase 157 U/L (0-31); Albumin Level 3.6 g/dL (3.5-5.0); Alkaline Phosphatase 138 U/L (39-117); Aspartate Amino Transferase 32 U/L (5-31); Total Protein 6.4 g/dL (6.5-8.0)
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
[2024-12-17 13:31] VITALS: BP 113/66
[2024-12-17 16:12] VITALS: BP 143/80; PULSE 65
[2024-12-17 16:13] VITALS: BP 143/80
[2024-12-17 20:03] VITALS: BP 124/70; PULSE 98; RESP 16; TEMP 36.4; O2SAT 100
[2024-12-18 08:13] VITALS: BP 121/71; PULSE 66; TEMP 36.7; O2SAT 98
[2024-12-18 08:51] LABS: Alanine Aminotransferase 119 U/L (0-31); Albumin Level 3.4 g/dL (3.5-5.0); Alkaline Phosphatase 125 U/L (39-117); Aspartate Amino Transferase 29 U/L (5-31); Total Protein 6.0 g/dL (6.5-8.0)
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
== END 2024-12-18 11:27 | disposition home or self-care (01) | DRG 751 ==
LOC: HO.ED 20:35 → HO.PM5 12-12 10:46
PROVIDERS: Nurse Practitioner Family; Physician Assistant Medical; Admitting Provider Nurse Practitioner Family; Emergency Provider Emergency Medicine; PCP Internal Medicine; Visit Provider Psychiatry & Neurology Psychiatry
DX: F33.3 Major depressive disorder, recurrent, severe with psychotic symptoms (principal); R45.851 Suicidal ideations; F41.9 Anxiety disorder, unspecified; G47.33 Obstructive sleep apnea (adult) (pediatric); F43.12 Post-traumatic stress disorder, chronic; Z20.822 Contact with and (suspected) exposure to COVID-19; K58.1 Irritable bowel syndrome with constipation; T50.996A Underdosing of other drugs, medicaments and biological substances, initial encounter; Z86.711 Personal history of pulmonary embolism; N18.30 Chronic kidney disease, stage 3 unspecified; Z98.84 Bariatric surgery status; Z90.5 Acquired absence of kidney; Z85.528 Personal history of other malignant neoplasm of kidney; Z79.01 Long term (current) use of anticoagulants; Z79.899 Other long term (current) drug therapy
CPT/HCPCS: 36415; 74177; 76705; 80053; 80061; 80076; 80143; 80179; 80307; 81001; 81025; 82140; 82150; 82550; 83036; 83690; 84443; 84484; 85025; 85610; 86704; 86706; 86709; 86803; 87340; 87635; 93005; 99285; J2270; J2405; Q9967

== ENCOUNTER → 2024-12-11 17:09 | Outpatient (BNV) | payer OTHER, SELFPAY | PROVIDERS: Emergency Provider Emergency Medicine; PCP Internal Medicine; Visit Provider Radiology Diagnostic Radiology | DX: R10.11 Right upper quadrant pain (principal); R10.31 Right lower quadrant pain | CPT/HCPCS: 74177 ==

== ENCOUNTER → 2024-12-11 17:42 | Outpatient (BNV) | payer OTHER, SELFPAY | PROVIDERS: Admitting Provider Nurse Practitioner Family; Emergency Provider Emergency Medicine; PCP Internal Medicine; Visit Provider Internal Medicine Cardiovascular Disease | DX: R10.9 Unspecified abdominal pain (principal) | CPT/HCPCS: 93010 ==

== ENCOUNTER 2024-12-12 10:30 | Outpatient (BNV) | payer OTHER, SELFPAY | END 2024-12-13 17:03 | PROVIDERS: Admitting Provider Nurse Practitioner Family; Emergency Provider Emergency Medicine; PCP Internal Medicine; Visit Provider Radiology Diagnostic Radiology | DX: N28.1 Cyst of kidney, acquired (principal) | CPT/HCPCS: 76705 ==

== ENCOUNTER → 2024-12-12 10:30 | Outpatient (BNV) | payer OTHER, SELFPAY | PROVIDERS: Admitting Provider Nurse Practitioner Family; Emergency Provider Emergency Medicine; PCP Internal Medicine; Visit Provider Nurse Practitioner Family | DX: F33.3 Major depressive disorder, recurrent, severe with psychotic symptoms (principal); F41.9 Anxiety disorder, unspecified; R45.851 Suicidal ideations | CPT/HCPCS: 90792; 99232; 99239 ==

== ENCOUNTER → 2024-12-12 10:30 | Outpatient (BNV) | payer OTHER, SELFPAY | PROVIDERS: Admitting Provider Nurse Practitioner Family; Emergency Provider Emergency Medicine; PCP Internal Medicine; Visit Provider Nurse Practitioner Family | DX: R79.89 Other specified abnormal findings of blood chemistry (principal) | CPT/HCPCS: 99221 ==

== ENCOUNTER → 2024-12-12 10:30 | Outpatient (BNV) | payer OTHER, SELFPAY | PROVIDERS: Admitting Provider Nurse Practitioner Family; Emergency Provider Emergency Medicine; PCP Internal Medicine; Visit Provider Internal Medicine | DX: R74.01 Elevation of levels of liver transaminase levels (principal); K58.1 Irritable bowel syndrome with constipation | CPT/HCPCS: 99232 ==

== ENCOUNTER 2024-12-20 08:19 | Outpatient (REF) | payer OTHER, SELFPAY ==
--- NOTE | ~2024-12-20 | FL_ITS ---
EXAMINATION: XR FLUOROSCOPY UPPER GI SERIES CLINICAL INFORMATION: Patient is status post gastric bypass, abdominal pain. COMPARISON: None TECHNIQUE: Fluoroscopic air contrast upper GI examination was performed utilizing standard techniques with thin and thick barium and effervescent granules. Numerous spot images were obtained. Several fluoroscopic image hold cine sequences were also obtained. FINDINGS: UPPER GI SERIES: Lateral cine images of the oropharynx and hypopharynx demonstrate normal swallow mechanism with normal epiglottic inversion and soft palate elevation. No laryngeal penetration, glottic or subglottic aspiration identified. No nasopharyngeal reflux present. Hypopharyngeal structures appear normal without evidence of mass or diverticulum. There was no significant cricopharyngeal achalasia. Dual and single contrast images of the esophagus demonstrate normal caliber, contour, and mucosal pattern. No evidence of stricture, mass, or ulcerations identified. Esophageal peristalsis was mild to moderately disordered. Small type I hiatus hernia present. There was gastroesophageal reflux noted throughout the examination to the level of the aortic arch. The gastric pouch has a normal appearance. The gastrojejunostomy has a normal appearance. There is no obstruction or delay to contrast passage into the more distal jejunum. The distal anastomosis is visualized and has a normal appearance. No contrast reflux into the gastric remnant or duodenum. FLUOROSCOPY TIME: 2 minutes 8 seconds Number of Spot Images:9 Number of cines obtained: 10 DOSE AREA PRODUCT: 3031 uGy-m2 (microgray-meter squared) FL/FL upper GI w air IMPRESSION: 1. Mild to moderately disordered esophageal peristalsis. 2. Small type I hiatus hernia present. 3. Status post gastric bypass. The gastric pouch has a normal appearance. The gastrojejunostomy has an unremarkable appearance. 4. Episodic gastroesophageal reflux to the level of the aortic arch. 5. The proximal jejunum is normal in appearance. Electronically signed by: Mekhi Santillan MD 12/20/2024 11:27 AM EDT
== END 2024-12-20 08:20 | disposition home or self-care (01) ==
LOC: HO.XRAY 08:19
PROVIDERS: PCP Internal Medicine; Visit Provider Physician Assistant Surgical
DX: R10.33 Periumbilical pain (principal); Z98.84 Bariatric surgery status
CPT/HCPCS: 74246

== ENCOUNTER → 2024-12-20 08:21 | Outpatient (BNV) | payer OTHER, SELFPAY | PROVIDERS: PCP Internal Medicine; Visit Provider Radiology Diagnostic Radiology | DX: K44.9 Diaphragmatic hernia without obstruction or gangrene (principal); K21.9 Gastro-esophageal reflux disease without esophagitis; K22.89 Other specified disease of esophagus; Z98.84 Bariatric surgery status | CPT/HCPCS: 74246 ==

== ENCOUNTER 2024-12-24 08:39 | Outpatient (AMB) | payer OTHER, SELFPAY ==
--- NOTE | 2024-12-24 08:44 | MHC.PC.OV ---
Vital Signs 12/24/24 08:45 Height 5 ft 3 in Weight 181 lb 6 oz BMI 32.1 BP 116/72 Blood Pressure Location Lt brachial Position Sitting Pulse 66 Pulse Source Pulse Oximeter Temp 97.1 F Temp Source Temporal Artery Scan Pulse Oximetry (%) 96 Oxygen Delivery Method Room Air Intake Visit Reasons: [facility] [place] 12/19 Leather Cutter Required: Yes Leather Cutter Language: Sinhala Allergies ibuprofen (From Motrin) Allergy (Verified 12/24/24 09:21) Unknown acetaminophen Adverse Reaction (Intermediate, Verified 12/24/24 09:21) Liver problems atorvastatin Adverse Reaction (Intermediate, Verified 12/24/24 09:21) elevated LFTs rosuvastatin Adverse Reaction (Intermediate, Verified 12/24/24 09:21) elevated LFTs Medication List - Last Reconciled 12/24/24 by Hung Montelongo MD apixaban (Eliquis) 5 mg PO BID 30 days cariprazine (Vraylar) 4.5 mg (3 x 1.5 mg) PO DAILY cholecalciferol (vitamin D3) (Vitamin D3) 25 mcg PO DAILY 90 days docusate sodium 100 mg PO DAILY famotidine 20 mg PO BEDTIME gabapentin 800 mg PO TID 30 days linaclotide (Linzess) 290 mcg PO QAM lorazepam 1 mg PO TID PRN 30 days meclizine 25 mg PO TID PRN 30 days melatonin 10 mg (2 x 5 mg) PO BEDTIME PRN 30 days midodrine 10 mg PO TID@0900,1300,1700 pantoprazole 40 mg PO QAM pantoprazole 40 mg PO QAM [Patient Own Medication 1 ea PO BID PRN] topiramate 25 mg PO DAILY trazodone 50 mg PO BEDTIME PRN 30 days verapamil 40 mg PO BID Tobacco use date assessed: 12/24/24 Dental Screening Dental Screen Date: 12/24/24 Did you have a dental visit in the last 12 months?: No Did you have a dental problem in the last 6 months where you did not have access to dental care?: No Was dental information given to patient?: Patient declined HPI [facility] [place] 12/19 HPI Details Patient comes in today for her HDF follow up visit She was admitted to the psychiatry unit at [facility] [place] for about a week recently for increasing anxiety and suicidal ideation Was just discharged from the hospital last week and that the only change in his medication during his recent hospitalization was his Vraylar, which was increased from 3 mg to 4.5 mg She was also noted to have significantly elevated liver enzymes, especially her serum ALT on her labs done while she was at the hospital She underwent abdominal US, which did not reveal any significant hepatic abnormality She currently continues to complain of increased pain over her lower back, especially over the right side with frequent radiation of the pain down her right leg She was supposed to have a diagnostic SI joint injection with Dr. Smith early last month but the procedure had to be cancelled due to her recent abdominal wall mass/hernia surgery; she was supposed to be rescheduled but patient states that the procedure is supposedly now awaiting insurance approval She also notes that she had an upper GI series done recently and was under the impression that there was something wrong with her stomach and with her small intestines as she continues to have trouble and sometimes pain when swallowing She denies any headaches or dizziness Denies any exertional chest pains, no increased SOB (+) occasional nausea but no vomiting lately No change in bowel habits noted States that she also needs her Tramadol Rx refilled PFSH Medical History Pure hypercholesterolemia Left breast mass Pulmonary nodules Chronic kidney disease, stage III (moderate) Obesity (BMI 30-39.9) Renal cyst Diverticulosis Tubular adenoma Asthma Spondylosis of lumbar spine Sacroiliitis Dizziness of unknown etiology Chronic constipation Hx of schizophrenia Panic attacks PTSD (post-traumatic stress disorder) Dyspareunia Pyelonephritis Ingrown toenail Iron deficiency anemia Major depression, recurrent Anxiety Insomnia Tremor Orthostatic hypotension Incisional hernia without obstruction or gangrene Avascular necrosis of femoral head Bilateral carpal tunnel syndrome Peroneal neuropathy Lumbar degenerative disc disease Vitamin D deficiency GERD (gastroesophageal reflux disease) Migraine Hyperlipidemia Surgical History Hx of lithotripsy History of left nephrectomy (~1999) History of colonoscopy History of surgery Hx of cystoscopy History of bilateral breast reduction surgery History of hysterectomy History of cholecystectomy History of endoscopy (~06/2016) History of bladder repair surgery (~03/2015) S/P cystoscopy (~07/30/12) S/P panniculectomy History of hernia repair (~03/29/10) History of bladder surgery (~10/2009) History of gastric bypass (~2008) History of incisional hernia repair (~1999) Hx of umbilical hernia repair (~1999) S/P laparoscopic sleeve gastrectomy Family History Father Liver cancer Mother Breast cancer Sister Lung cancer Other Mental health problem Social History Household Members: Spouse Housing: House Are you a primary career placement specialist to a significant other at home: No Do you presently have visiting nurse or other home services: No Alcohol intake: never Patient Tobacco Use Status: Never used Tobacco e-Cigarette/Vaping Use: Never Used Second Hand Smoke Exposure: No Advance Directives Date on File: 07/12/21 service: No Current occupational status: disabled Sexual orientation: Straight/Heterosexual Gender identity: Female Cognitive needs: No Hearing needs: No Vision needs: Yes Female Reproductive History Menstrual Age of Menarche: 13 Questionnaire PHQ-9 Over the last 2 weeks, how often have you been bothered by any of the following problems? 1. Little interest or pleasure in doing things: not at all 2. Feeling down, depressed, or hopeless: not at all 3. Trouble falling or staying asleep, or sleeping too much: several days 4. Feeling tired or having little energy: more than half the days 5. Poor appetite or overeating: several days 6. Feeling bad about yourself - or that you are a failure or have let yourself or your family down: several days 7. Trouble concentrating on things, such as reading the newspaper or watching television: more than half the days 8. Moving or speaking so slowly that other people could have noticed. Or the opposite - being so fidgety or restless that you have been moving around a lot more than usual: several days 9. Thoughts that you would be better off or of hurting yourself in some way: several days Total score: 9 Depression Screening Interpretation: Positive Depression Screening Follow-up: Existing condition and In treatment Depression Screening Done: Yes 98780 - PHQ-9 Billing: Yes Source: Developed by Drs. Vincenzo Mayo, Beverly Hernandez, Angel Vogel and colleagues, with an educational juan antonio from [employer]. Thrive Questionnaire Date Thrive assessed: 08/21/24 I am a: Patient What is your living situation today?: I have a steady place to live Within the past 12 months, did the food you bought not last and you didn't have the money to get more?: Sometimes True Within the past 12 months, did you worry whether your food would run out before you got money to buy more?: Sometimes True Do you have trouble paying for medicines?: No Do you have trouble getting transportation to medical appointments?: No Do you have trouble paying your heating and electricity bill?: No Do you have trouble taking care of your child, family member or friend?: I choose not to answer this question Do you have trouble with day-to-day activities such as bathing, preparing meals, shopping, managing finances, etc.?: Yes Are you currently unemployed and looking for a job?: I choose not to answer this question Are you interested in more education?: I choose not to answer this question Please select the resources that you would like help with: None Currently or been in a relationship where the following occur: I choose not to answer THRIVE Score: 2 AUDIT C Alcohol Use Questionnaire (AUDIT-C) 1. How often do you have a drink containing alcohol?: Never 3. How often do you have six or more drinks on one occasion?: Never Total Score: 0 Score Reviewed/Action Taken: Yes JAMIE-7 AMB Questionnaire JAMIE-7 Date JAMIE - 7 assessed: 11/25/24 Feeling nervous, anxious, or on edge: 0 = Not at all Not being able to stop or control worryin = Not at all Worrying too much about different things: 0 = Not at all Trouble relaxin = Not at all Being so restless that it is hard to sit still: 0 = Not at all Becoming easily annoyed or irritable: 0 = Not at all Feeling afraid as if something awful might happen: 0 = Not at all Total JAMIE-7 score (0-4 normal; 5-9 mild; 10-14 moderate; 15-21 severe): 0 Source: Developed by Drs. Vincenzo Mayo, Beverly Hernandez, Angel Vogel and colleagues, with an educational juan antonio from [employer]. Review of Systems Const Denies chills, Reports fatigue, Denies fever(s) and Denies headache(s) ENT Denies dysphagia, Denies dizziness, Denies otalgia, Denies headache(s), Denies neck pain, Denies odynophagia and Denies sore throat Card Denies chest pain, Denies irregular heart rhythm, Denies palpitations and Denies dyspnea Resp Denies chest congestion, Denies cough, Denies dyspnea and Denies wheezing GI Denies abdominal pain, Denies constipation, Denies dysphagia, Denies heartburn, Denies diarrhea, Reports nausea (on and off), Denies odynophagia and Denies vomiting Denies hematuria, Denies urinary frequency, Denies dysuria and Denies urinary urgency Musc Reports back pain (over the lower back - chronic), Denies arthralgias and Denies neck pain Skin/Breast Denies rash Neuro Denies dizziness, Denies headache(s) and Denies paresthesias Psych Reports anxiety and Reports depression Endo Reports fatigue and Denies palpitations Catarino/Lymph Details: on and off swelling of both lower legs and feet Denies easy bruising Aller/Immun Denies wheezing Physical exam (Primary Care) Vital Signs: Last Vital Signs Temp 97.1 F 12/24/24 08:45 Pulse 66 12/24/24 08:45 BP 116/72 12/24/24 08:45 Pulse Ox 96 12/24/24 08:45 Oxygen Delivery Method Room Air 12/24/24 08:45 BMI result Body Mass Index 32.1 Tobacco/Smoking Status: Tobacco use Status Tobacco use date assessed 12/24/24 12/24/24 08:50 Patient Tobacco Use Status Never used Tobacco 12/24/24 08:50 e-Cigarette/Vaping Use Never Used 12/24/24 08:50 PHQ-9: PHQ-9 Score PHQ-9: Total score 9 12/24/24 11:52 Depression Screening Interpretation: Positive Depression Screening Follow-up: Existing condition and In treatment Thrive Assessment: Date of Thrive Assessment Date Thrive assessed 08/21/24 12/24/24 08:50 Currently or been in a relationship where the following occur: I choose not to answer Const General: no acute distress and alert HENMT Ears: TM's normal bilaterally and EAC's normal Throat: Yes posterior oropharynx normal and Yes tonsils normal Neck Neck: Yes no lymphadenopathy and Yes supple Thyroid: Thyroid normal Resp Auscultation: clear to auscultation bilaterally, no rales and no wheezes Cardio Rate: regular rate Rhythm: regular rhythm Heart sounds: no murmurs GI Palpation (GI): Soft to palpation, nontender and no hernias Auscultation: normal bowel sounds General: Yes no CVA tenderness Back/Spine/Pelvis Back: no CVA tenderness Thoracic/Lumbar Spine: paraspinal muscle tenderness (over the lumbar region) on the right greater than left and lumbar spinal tenderness Skin Rashes: no rashes Extrem General: No clubbing, No cyanosis and Yes edema (1+ bipedal edema) Results Reviewed Results Reviewed: Laboratory Tests 12/13/24 12/13/24 12/13/24 08:20 10:27 10:36 WBC 6.8 Hgb 13.8 Hct 41.5 Plt Count 294 Sodium Potassium Creatinine Estimated GFR Random Glucose Hemoglobin A1c % 5.4 Calcium AST ALT Alkaline Phosphatase Triglycerides 94 Cholesterol 257 H LDL Cholesterol, Calc 161 H HDL Cholesterol 78 Amylase 96 Lipase 27 TSH 1.02 Ur Specific [place] Urine Protein Urine Glucose (UA) Urine Blood Urine Nitrite Ur Leukocyte Esterase 12/14/24 12/14/24 12/18/24 13:12 13:24 08:00 WBC Hgb Hct Plt Count Sodium 143 Potassium 4.9 Creatinine 1.33 Estimated GFR 41 Random Glucose 122 H Hemoglobin A1c % Calcium 9.3 AST 29 ALT 119 H Alkaline Phosphatase 125 H Triglycerides Cholesterol LDL Cholesterol, Calc HDL Cholesterol Amylase Lipase TSH Ur Specific [place] 1.025 Urine Protein Trace Urine Glucose (UA) Negative Urine Blood Large (3+) H Urine Nitrite Negative Ur Leukocyte Esterase Trace H Coding Level of Care Code Est Pt Level 4 (10259) Diagnoses Pure hypercholesterolemia E78.00 Hyperlipidemia type: pure hypercholesterolemia Elevated LFTs R79.89 MIGUEL (obstructive sleep apnea) G47.33 Solitary kidney, acquired Z90.5 Multiple thyroid nodules E04.2 Chronic constipation K59.09 Orthostatic hypotension I95.1 Pruritus L29.9 Gastroesophageal reflux disease without esophagitis K21.9 Esophagitis presence: without esophagitis Edema, unspecified type R60.9 Edema type: unspecified Degeneration of intervertebral disc of lumbar region with discogenic back pain and lower extremity pain M51.362 Disc-related pain type: discogenic back pain and lower extremity pain Pain in other joint M25.59 Joint pain location: other joint Migraine without status migrainosus, not intractable, unspecified migraine type G43.909 Intractability: not intractable Migraine type: unspecified Status migrainosus presence: without status migrainosus Vitamin D deficiency E55.9 Memory impairment R41.3 Primary insomnia F51.01 Insomnia type: primary Anxiety F41.9 Episode of recurrent major depressive disorder, unspecified depression episode severity F33.9 Active/Remission status: currently active Major depression episode severity: unspecified Obesity (BMI 30-39.9) E66.9 Additional Codes PHQ-9 - 86428 - PHQ-9 Billing: Yes ([id number]) Assessment & Plan Assessment & Plan (1) Hyperlipidemia: Code(s): E78.5 - Hyperlipidemia, unspecified Category: Medical Qualifiers: Hyperlipidemia type: pure hypercholesterolemia Qualified Code(s): E78.00 - Pure hypercholesterolemia, unspecified Plan: Patient has been previously advised that her cholesterol levels have increased significantly from previous She states that her insurance has declined to cover her Praluent injection Rx so she was not able to continue on it for over a month now Reinforced low cholesterol diet We sent in Rx again for Praluent Pen 75 mg SQ every 2 weeks at her last appointment and patient states that she was not able to get it filled at her pharmacy due to insurance restrictions Will try sending in Rx for Rapatha instead - 140 mg SQ Q 2 weeks Her LFTs have also gone up significantly over the past few weeks and now remained significantly elevated on her recent labs Will recheck her fasting lipids and labs as scheduled in a couple of months for follow up (2) Elevated LFTs: Code(s): R79.89 - Other specified abnormal findings of blood chemistry Category: Medical Plan: Patient's LFTs improved when she was taken off Rosuvastatin a few months ago but they have gone up significantly lately and are still elevated on her recent labs Abdominal US done a few months ago revealed (+) coarsened hepatic echotexture, consistent with fatty infiltration or hepatocellular disease. No focal hepatic mass or intrahepatic biliary dilatation is seen Repeat abdominal US done a couple of weeks ago showed no acute changes Will have patient recheck her LFTs in 1 month for follow up and will continue to monitor her LFTs regularly (3) MIGUEL (obstructive sleep apnea): Comment: mild degree of sleep apnea. The AHI was 5/hr and oxygen mitul was 81%. Code(s): G47.33 - Obstructive sleep apnea (adult) (pediatric) Category: Medical Plan: Continue using her CPAP device when sleeping at night daily Follow up with Sleep Medicine as scheduled (4) Solitary kidney, acquired: Comment: (+) Hx of left nephrectomy >20 years ago due to recurrent kidney stones Code(s): Z90.5 - Acquired absence of kidney Category: Medical Plan: Follow up with nephrology as scheduled (5) Multiple thyroid nodules: Code(s): E04.2 - Nontoxic multinodular goiter Category: Medical Plan: These were apparently seen incidentally on neck CTA done a few months ago Her TFTs remain normal on her recent labs She is now seeing endocrinology for this and had thyroid Bx done a couple of months ago - pathology came out as atypia of undetermined significance (Grahn category III) Follow up with endocrinology as scheduled (6) Chronic constipation: Code(s): K59.09 - Other constipation Category: Medical Plan: She is again encouraged on increased oral fluids and dietary fiber intake States that Lactulose and Docusate 100 mg BID have not helped much previously; she also tried taking OTC Miralax, which she states only helped minimally She was tried by GI on Linzess and Trulance also recently and she states that both Rx did not help She is currently on a combination regimen of Linzess 145 mcg QD, Docusate 100 mg BID and Miralax 17 gm QD Had EGD and colonoscopy done about 3 years ago - (+) tubular adenoma; colonoscopy was otherwise normal She has a follow up appointment scheduled with GI in a couple of months (7) Orthostatic hypotension: Code(s): I95.1 - Orthostatic hypotension Category: Medical Plan: 30 days cardiac event monitor done on 07/11/2023 showed sinus rhythm with heart rate ranging from 36 to 131/min, 2 brief paroxysmal SVT episodes, rare PACs and PVCs; two symptom events correlated with sinus tach. Echocardiogram done on the same day (07/11/2023) came out normal Tilt-table testing done on 10/17/2023 showed appropriate heart rate and blood pressure response to tilt Continue Midodrine 10 mg TID She is reminded to stay adequately hydrated as much as she can and to try increasing her oral salt intake as well Follow up with cardiology as scheduled (8) Pruritus: Code(s): L29.9 - Pruritus, unspecified Category: Medical Plan: Patient relates experiencing increased itching all over frequently and she feels that these are likely due to her Midodrine Rx and is inquiring if she can stop taking this medication Have advised patient that she was started on Midodrine by cardiology to help with her orthostasis and stopping this abruptly may not be the best option to take, even if Midodrine is in the responsible for her complaints of recurrent pruritus recently Have advised patient to continue on her current medication for now and to speak to cardiology first whether they are agreeable to her stopping her Midodrine or not Have advised patient that she can take some OTC Benadryl PRN for symptomatic relief (9) GERD (gastroesophageal reflux disease): Code(s): K21.9 - Gastro-esophageal reflux disease without esophagitis Category: Medical Qualifiers: Esophagitis presence: without esophagitis Qualified Code(s): K21.9 - Gastro-esophageal reflux disease without esophagitis Plan: Dietary restrictions reinforced Continue Omeprazole 20 mg QD (10) Edema: Code(s): R60.9 - Edema, unspecified Category: Medical Qualifiers: Edema type: unspecified Qualified Code(s): R60.9 - Edema, unspecified Plan: Continue Furosemide 20 mg Q AM PRN She is advised to take this only as needed for severe edema as her blood pressure is often on the lower end of normal and taking this daily may drive her BP down further and cause her to experience increased dizziness and orthostasis (11) Lumbar degenerative disc disease: Code(s): M51.36 - Other intervertebral disc degeneration, lumbar region Category: Medical Qualifiers: Disc-related pain type: discogenic back pain and lower extremity pain Qualified Code(s): M51.362 - Other intervertebral disc degeneration, lumbar region with discogenic back pain and lower extremity pain Plan: Reinforced activity and weight lifting restrictions She went to physical therapy last year without any significant relief She was seen by [facility] [place] Pain Management previously and had a diagnostic SI joint injection under fluoroscopic guidance back in September 2021 and started seeing them again recently; has been scheduled for bilateral therapeutic sacroiliac joint injection under sedation but it looks like she stopped going to pain management afterwards She was referred back to [facility] [place] Pain management for interventional Tx to help with her chronic pain at her last visit and she was seen again by Dr. Smith in late October 2023 and he was reportedly planning to schedule her for a bilateral therapeutic sacroiliac joint injection under sedation but it appears that patient did not follow-up again for her injections although she claims that she was never scheduled It appears that patient completely forgot about her follow-up and has been experiencing some memory issues in addition to her recent psychiatric hospitalizations for decompensation She was seen again by Dr. Smith a couple of months ago and was sent for physical therapy, after which she will be scheduled again for back injections Patient started back with physical therapy last week and she is reminded to continue following up with them and with pain management as scheduled Continue Gabapentin 800 mg 3 times a day, Tramadol 50 mg 1-2 tablets every 8 hours as needed (Rx refilled) (12) Arthralgia: Code(s): M25.50 - Pain in unspecified joint Category: Medical Qualifiers: Joint pain location: other joint Qualified Code(s): M25.59 - Pain in other specified joint Plan: Involving multiple joints, especially over both hips, both elbows and both knees X-rays of the knees done back in August 2021 revealed (+) mild OA changes in both knees; hip and elbow x-rays came out normal Continue Gabapentin 800 mg TID and Tramadol 50 mg TID PRN for pain (13) Migraine: Code(s): G43.909 - Migraine, unspecified, not intractable, without status migrainosus Category: Medical Qualifiers: Intractability: not intractable Migraine type: unspecified Status migrainosus presence: without status migrainosus Qualified Code(s): G43.909 - Migraine, unspecified, not intractable, without status migrainosus Plan: Controlled Continue Topiramate 50 mg QD for LANZA prophylaxis and Sumatriptan 50 mg PRN Follow-up with neurology as scheduled (14) Vitamin D deficiency: Code(s): E55.9 - Vitamin D deficiency, unspecified Category: Medical Plan: Continue Vitamin D3 1000 units QD (15) Memory impairment: Code(s): R41.3 - Other amnesia Category: Medical Plan: She was referred to and seen by neurology and was advised that her memory issues are multifactorial in etiology although she was diagnosed with frontotemporal lobe degeneration and dementia as well Follow up with neurology as scheduled (16) Insomnia: Code(s): G47.00 - Insomnia, unspecified Category: Medical Qualifiers: Insomnia type: primary Qualified Code(s): F51.01 - Primary insomnia Plan: Sleep hygiene reinforced She was taking Trazodone 50 mg daily at bedtime as needed and Prazosin 1 mg Q HS in the past but currently appears to be only taking Melatonin 5 mg Q HS She is also on Aripiprazole 5 mg Q HS (17) Anxiety: Code(s): F41.9 - Anxiety disorder, unspecified Category: Medical Plan: Continue Vraylar 4.5 mg QD and Lorazepam 1 mg TID PRN Followup with psychiatry as scheduled (18) Major depression, recurrent: Code(s): F33.9 - Major depressive disorder, recurrent, unspecified Category: Medical Qualifiers: Active/Remission status: currently active Major depression episode severity: unspecified Qualified Code(s): F33.9 - Major depressive disorder, recurrent, unspecified Plan: Continue Vraylar 4.5 mg QD She was admitted again to [facility] [place] 1 to 2 weeks ago for psychiatric decompensation and suicidal ideation and has had multiple psychiatric admissions as well in the past for similar reasons Follow-up with Psychiatry as scheduled (19) Obesity (BMI 30-39.9): Code(s): E66.9 - Obesity, unspecified Category: Medical Plan: Reinforced diet; exercise is unrealistic given patient's multiple medical and psychiatric morbidities Plan Follow-up as scheduled in March 2025 Orders: Orders Complete Blood Count Auto Diff 03/01/25 D64.9 - Anemia, unspecified Lipid Panel 03/01/25 E78.00 - Pure hypercholesterolemia, unspecified Vitamin D 25-OH Total 03/01/25 E55.9 - Vitamin D deficiency, unspecified Liver Fibrosis Pnl 03/01/25 R79.89 - Other specified abnormal findings of blood chemistry Liver Panel 1 Month R79.89 - Other specified abnormal findings of blood chemistry Comprehensive Apex. Panel Fast 03/01/25 E78.00 - Pure hypercholesterolemia, unspecified TSH reflex Free T4 03/01/25 E78.00 - Pure hypercholesterolemia, unspecified UA CC w/rflx Micro + Cult 03/01/25 R30.0 - Dysuria Vitamin B12 and Folate 03/01/25 E53.8 - Deficiency of other specified B group vitamins Medications: New evolocumab (Repatha Javi) 140 mg subcut Q2W 2 mL 3RF 4 weeks lidocaine 5% leave on most painful area for up to 12 hrs 1 patch topical DAILY 30 ea 0RF Refilled tramadol 100 mg (2 x 50 mg) PO Q8H PRN 60 tabs 0RF severe pain 30 days
[2024-12-24 08:45] VITALS: BP 116/72; PULSE 66; TEMP 36.2; O2SAT 96; BMI 32.1
--- OUTSIDE RECORDS SUMMARY | 2024-12-24 08:52 | XMS_ITS | Encounter Summary ---
Author Organization [employer] Address [address] [facility] 7t [place] [address] Care Team Providers Care Deputy Clerk Name Role Phone Unavailable Primary Care Provider Unavailabl e Encounter Details Date Type Department Care Team (Latest Contact Info) Description 01/20/2022 Abstract [facility] CONVERSIONS Dental, Provider, DDS Social [...] Description 06/05/2025 1:00 PM EST Office Visit [facility] ADULT DENTAL [address] [place] [address] Chari Greenwood [address] [place] [address] documented as of this encounter Visit Diagnoses Not on filedocumented in this encounter
--- OUTSIDE RECORDS SUMMARY | 2024-12-24 08:52 | XMS_ITS | Encounter Summary ---
Author Organization [employer] Address [address] [facility] 7t [place] [address] Care Team Providers Care Vehicle Glass Technician Name Role Phone Unavailable Primary Care Provider Unavailabl e Encounter Details Date Type Department Care Team (Latest Contact Info) Description 11/30/2020 Abstract [facility] CONVERSIONS Dental, Provider, DDS Social History [...] Description 06/05/2025 1:00 PM EST Office Visit [facility] ADULT DENTAL [address] [place] [address] Chari Greenwood [address] [place] [address] documented as of this encounter Visit Diagnoses Not on filedocumented in this encounter
--- OUTSIDE RECORDS SUMMARY | 2024-12-24 08:52 | XMS_ITS | Clinical Summary ---
Author Organization [facility] Address [address] [place] [address] Phone Care Team Providers Care Manager Image Name Role Phone Hung Montelongo MD Primary Care Provider +1 [phone] Allergies No known active allergies Medications VENTOLIN HFA 90 mcg/actuation inhaler TAKE 2 PUFFS INHALED EVERY 6 HOURS NEEDED FOR SHORTNESS OF BREATH OR WHEEZING FOR 30 DAYS 3 Active VITAMIN D3 25 mcg (1,000 unit) capsule TOME WU C PSULA TODOS LOS D 4 Active ferrous sulfate 325 mg (65 mg [place] iron) tablet TOME WU TABLETA TODOS LOS [...] topic Medical Devices Not on file Insurance [facility] ACO [facility]CO [facility]CO [facility]CO [facility] ACO [facility] ACO Care Teams Manager Image Relationship Specialty Start Date End Date Hung Montelongo MD [address] [place] [address] [place] [address] PCP - General Internal Medicine 07/24/23 Additional Source Comments The information contained in this document represents components of the legal health record. It is not the complete legal health record.[facility]
--- OUTSIDE RECORDS SUMMARY | 2024-12-24 08:53 | XMS_ITS | Clinical Summary ---
Author Organization [employer] Address [address] [facility] 7t [place] [address] Care Team Providers Care Leach Tank Tender Name Role Phone Unavailable Primary Care Provider [...] Active Problems Problem Noted Date Diagnosed Date Dental calculus 11/21/2024 Laceration of right cheek 05/16/2023 Xerostomia 04/26/2023 Dental plaque 10/10/2022 Localized gingival recession, minimal 10/10/2022 Encounters Date Type Department Care Team Description 11/21/2024 8:00 AM EDT Office Visit [facility] ADULT DENTAL [address] [place] [address] Chari Greenwood Dental calculus (Primary Dx); Localized gingival recession, minimal; Excessive attrition of teeth from Last 3 Months Social History Tobacco [...] Sign Reading Time Taken Comments Blood Pressure 124/72 11/21/2024 8:06 AM EDT Pulse 72 04/26/2023 1:02 PM EST Temperature - - Respiratory Rate - - Oxygen Saturation - - Inhaled Oxygen Concentration - - Weight - - Height - - Body Mass Index - - Plan of Treatment Upcoming Encounters Date Type Department Care Team (Late st Contact Info) Description 06/05/2025 1:00 PM EST Office Visit [facility] ADULT DENTAL [address] [place] [address] Chari Greenwood [address] [place] [address] Health Maintenance Due Date Last Done Comments CT Colonography 1969 Colonoscopy 1969 Colorectal Cancer Screening 1969 Depression Screening 1969 FIT DNA/Cologuard 1969 FIT 1969 FOBT 1969 HIV Screening 1969 Lipid Panel 1969 SDOH Screening 1969 Sigmoidoscopy 1969 Disability Screening 1969 Alcohol/Substance Use Screening 1981 Hepatitis C Screening 11/18/1987 Hepatitis B Vaccines (1 of 3 - 19+ 3-dose series) 1988 Pap Smear 1990 Cervical Cancer Screening 11/18/1999 HPV/Cotest 11/18/1999 Pneumococcal Vaccine: 50+ Years (2 of 2 - PCV) 11/08/2008 11/09/2007 Mammogram 2009 COVID-19 Vaccine ( season) 2023 04/12/2023, 01/11/2022, 03/01/2021, Additional history exists Influenza Vaccine (#1) 2024 , 04/11/2023, 04/11/2022, Additional history exists Dental X-Ray: Bitewings 05/23/2025 05/22/19, 05/16/2023, 04/26/2023, Additional history exists Dental Oral Exam 05/25/2025 11/21/2024, , 05/16/2023, Additional history exists Dental Prophylaxis 05/25/2025 11/21/2024, 0 05/22/2024, 04/26/2023, Additional history exists Tobacco Screening 11/21/2025 11/21/2024 Dental X-Ray: Full Mouth 05/23/2027 025, 11/30/2020, 05/17/2013, Additional history exists DTaP/Tdap/Td Vaccines (3 - Td or Tdap) 04/09/2029 04/09/2019, 04/04/2009 RSV Patients and Patients Aged 60 years or older (1 - 1-dose 75+ series) 2044 Zoster Vaccines Completed 04/03/2022, 02/01/2022 HIB Vaccines Aged Out No longer eligi [...] Procedure Name Priority Date/Time Associated Diagnosis Comments COMPREHENSIVE PERIODONTAL EVALUATION - NEW OR ESTABLISHED PATIENT Routine 11/21/2024 8:00 AM EDT PERIODIC ORAL EVALUATION - ESTABLISHED PATIENT Routine 11/21/2024 8:00 AM EDT CASE PRESENTATION, DETAILED AND EXTENSIVE TREATMENT PLANNING Routine 11/21/2024 8:00 AM EDT Dental calculus Localized gingival recession, minimal ORAL HYGIENE INSTRUCTIONS Routine 2024 8:00 AM EDT Dental calculus Localized gingival recession, minimal Full PROPHYLAXIS - ADULT Routine 025 8:00 AM EDT Dental calculus Localized gingival recession, minimal INTRAORAL - COMPLETE SERIES OF RADIOGRAPHIC IMAGES Routine 05/22/2024 1:00 PM EST from Last 3 Months or Most Recently Relevant to Health Maintenance Insurance [facility] [place] STAND ADULT
--- OUTSIDE RECORDS SUMMARY | 2024-12-24 08:53 | XMS_ITS | Clinical Summary ---
Author Organization [facility] Address [address] [address] Phone Care Team Providers Care Car Checker Name Role Phone Hung Montelongo MD Primary Care Provider +1- [phone] Allergies Active Allergy Reactions Criticality Noted Date [...] Visit [facility] [address] [place] [address] Alejandro Benz MD [address] [facility] [address] [place] [phone] Health Maintenance Due Date Last Done Comments Breast Cancer Screening 1969 Hepatitis B Vaccine (1 of 3 - 19+ 3-dose series) 11/17 Pneumococcal Vaccine: 50+ Years (1 of 2 - PCV) 989 Colorectal Cancer Screening: Annual FOBT 2018 Colorectal Cancer Screening: Colonoscopy 2018 Colorectal Cancer Screening: Sigmoidoscopy 2018 Influenza Vaccine (#1) 2024 [place] [address] [facility] Medicaid Care Teams Car Checker Relationship Specialty Start Date End Date Hung Montelongo MD [address] [place] [address] PCP - General 05/11/20
== END 2024-12-24 09:48 | disposition home or self-care (01) ==
LOC: HO.HMCH 08:40
PROVIDERS: PCP Internal Medicine; Visit Provider Internal Medicine
DX: E78.00 Pure hypercholesterolemia, unspecified (principal); R79.89 Other specified abnormal findings of blood chemistry; Z68.32 Body mass index [BMI] 32.0-32.9, adult; E66.9 Obesity, unspecified; Z90.5 Acquired absence of kidney; G47.33 Obstructive sleep apnea (adult) (pediatric); E04.2 Nontoxic multinodular goiter; K59.09 Other constipation; I95.1 Orthostatic hypotension; L29.9 Pruritus, unspecified; K21.9 Gastro-esophageal reflux disease without esophagitis; R60.9 Edema, unspecified

== ENCOUNTER → 2024-12-24 08:39 | Outpatient (BNVA) | payer OTHER, SELFPAY | PROVIDERS: PCP Internal Medicine; Visit Provider Internal Medicine | DX: G47.33 Obstructive sleep apnea (adult) (pediatric) (principal); E78.00 Pure hypercholesterolemia, unspecified; R79.89 Other specified abnormal findings of blood chemistry; E04.2 Nontoxic multinodular goiter; K59.09 Other constipation; I95.1 Orthostatic hypotension; L29.9 Pruritus, unspecified; K21.9 Gastro-esophageal reflux disease without esophagitis; R60.9 Edema, unspecified; M51.362 Other intervertebral disc degeneration, lumbar region with discogenic back pain and lower extremity pain; M25.59 Pain in other specified joint; E55.9 Vitamin D deficiency, unspecified; R41.3 Other amnesia; F51.01 Primary insomnia; F41.9 Anxiety disorder, unspecified; F33.9 Major depressive disorder, recurrent, unspecified; Z90.5 Acquired absence of kidney | CPT/HCPCS: 96127; 99212 ==

== ENCOUNTER 2024-12-27 10:05 | Outpatient (AMB) | payer OTHER, SELFPAY ==
--- OUTSIDE RECORDS SUMMARY | 2024-12-27 10:50 | XMS_ITS | Encounter Summary ---
Author Organization [employer] Address [address] [facility] 7t [place] [address] Care Team Providers Care Stations Superintendent Name Role Phone Unavailable Primary Care Provider Unavailabl e Encounter Details Date Type Department Care Team (Latest Contact Info) Description 11/30/2020 Abstract [facility] CONVERSIONS Dental, Provider, DDS Social [...] Description 06/05/2025 1:00 PM EST Office Visit [facility] ADULT DENTAL [address] [place] [address] Chari Greenwood [address] [place] [address] documented as of this encounter Visit Diagnoses Not on filedocumented in this encounter
--- OUTSIDE RECORDS SUMMARY | 2024-12-27 10:50 | XMS_ITS | Encounter Summary ---
Author Organization [employer] Address [address] [facility] 7t [place] [address] Care Team Providers Care Impregnator Name Role Phone Unavailable Primary Care Provider Unavailabl e Encounter Details Date Type Department Care Team (Latest Contact Info) Description 01/20/2022 Abstract [facility] CONVERSIONS Dental, Provider, DDS Social [...] Description 06/05/2025 1:00 PM EST Office Visit [facility] ADULT DENTAL [address] [place] [address] Chari Greenwood [address] [place] [address] documented as of this encounter Visit Diagnoses Not on filedocumented in this encounter
--- OUTSIDE RECORDS SUMMARY | 2024-12-27 10:50 | XMS_ITS | Clinical Summary ---
Author Organization [facility] Address [address] [place] [address] Phone Care Team Providers Care Normalizer Name Role Phone Hung Montelongo MD Primary Care Provider +1 -[phone] Allergies No known active allergies Medications VENTOLIN HFA 90 mcg/actuation inhaler TAKE 2 PUFFS INHALED EVERY 6 HOURS NEEDED FOR SHORTNESS OF BREATH OR WHEEZING FOR 30 DAYS 3 Active VITAMIN D3 25 mcg (1,000 unit) capsule TOME WU C PSULA TODOS LOS D 4 Active ferrous sulfate 325 mg (65 mg [place] iron) tablet TOME WU TABLETA TODOS LOS [...] 2023 04/12/2023, 01/11/2022, 03/01/2021, Additional history exists INFLUENZA VACCINE (#1) 2024 , 04/11/2022, 03/05/2021, Additional history exists Adult Td,Tdap Booster 04/09/2029 [...] topic Medical Devices Not on file Insurance [facility] ACO [facility] ACO [facility] ACO [facility] ACO Care Teams Normalizer Relationship Specialty Start Date End Date Hung Montelongo MD [address] [place] [address] [place] [address] PCP - General Internal Medicine 07/24/23 Additional Source Comments The information contained in this document represents components of the legal health record. It is not the complete legal health record.[facility]
--- OUTSIDE RECORDS SUMMARY | 2024-12-27 10:50 | XMS_ITS | Clinical Summary ---
Author Organization [employer] Address [address] [facility] 7t [place] [address] Care Team Providers Care Health Data Administrator Name Role Phone Unavailable Primary Care Provider [...] Description 11/21/2024 8:00 AM EDT Office Visit [facility] ADULT DENTAL [address] [place] [address] Chari Greenwood Dental calculus (Primary Dx); Localized [...] Description 06/05/2025 1:00 PM EST Office Visit [facility] ADULT DENTAL [address] [place] [address] Chari Greenwood [address] [place] [address] Health Maintenance Due Date Last Done Comments [...]
--- OUTSIDE RECORDS SUMMARY | 2024-12-27 10:50 | XMS_ITS | Clinical Summary ---
Author Organization [facility] Address [address] [address] Phone Care Team Providers Care Senior Enterprise Architect Name Role Phone Hung Montelongo MD Primary Care Provider +1- [phone] Allergies Active Allergy Reactions Criticality Noted Date [...] [facility] [address] [place] [address] Alejandro Benz MD [address] [facility] [address] [place] [phone] Health Maintenance Due Date Last Done Comments Breast Cancer Screening 1969 Hepatitis B Vaccine (1 of 3 - 19+ 3-dose series) 11/17 Pneumococcal Vaccine: 50+ Years (1 of 2 - PCV) 989 Colorectal Cancer Screening: Annual FOBT 2018 Colorectal Cancer Screening: Colonoscopy 2018 Colorectal Cancer Screening: Sigmoidoscopy 2018 Influenza Vaccine (#1) 2024 [place] [address] [facility] Medicaid Care Teams Senior Enterprise Architect Relationship Specialty Start Date End Date Hung Montelongo MD [address] [place] [address] PCP - General 05/11/20
--- NOTE | 2024-12-27 11:09 | AM.OFFVISNUR ---
Intake Visit Reasons: UroD Allergies ibuprofen (From Motrin) Allergy (Verified 12/24/24 09:21) Unknown acetaminophen Adverse Reaction (Intermediate, Verified 12/24/24 09:21) Liver problems atorvastatin Adverse Reaction (Intermediate, Verified 12/24/24 09:21) elevated LFTs rosuvastatin Adverse Reaction (Intermediate, Verified 12/24/24 09:21) elevated LFTs Office Procedures Urodynamic Studies Consent Discussed risk and benefit or proposed procedure with the patient. Information consent for procedure given to the patient. Discussed technical aspects, risks, benefits and alternatives in full. Addressed all of the patient's questions and concerns regarding the procedure. The patient demonstrated knowledge and understanding. They wish to proceed with this procedure. Preparation The patient was prepped in the usual manner. A motor vehicle representative was present and in the room. Genitalia was prepped with betadine solution in a sterile manner. Procedure Complex Uroflow Complex uroflow performed by: Mary Rocha Maximum urinary flow rate (mL/second): 3.1 Voiding time (seconds): 19 seconds Voided volume (mL): 31ml Residual urine (mL): 15ml Cystometrogram ? Vaginal/rectal catheter type: Vaginal First sensation at (mL): 16mL First desire at (mL): 77mL Strong desire to void occurred at (mL): 151 mL Strong desire detrusor pressure (cm H2O): 16 Maximum Capacity (mL): 175mL Voiding Summary Voided with max detrusor pressure of (cm H2O): 27 Maximum flow rate (mL/second): 8.8mL/s Voided volume (mL): ? 134ml Calculated PVR: 3 mL Stress Testing Unable to perform due to uncontrolled DO. DO Dry: 167ml DO Wet:170ml Test performed with explosive ordnance manager services via ipad. Interpretor ID # [id number] Prep: The patient was prepped in the usual manner. A motor vehicle representative was present and in the room. Genitalia was prepped with betadine solution in a sterile manner. 55052-Jpogdxvtiwyqdf w/ CARGO BRACER 69825-Awgbtfq-Mghqniyxezjq 44884-Xitv/Urinary Muscle Study 79953-Vvyrf-Dhacmbhbr Pressure Test Procedure code (CPT) selection complete Office Meds lidocaine HCl 2 % mucosal jelly in applicator Performing Provider: Mary Rocha MD Performing Location: [facility] Documented (not given) by: Deneen Butt RN on 12/27/24 11:09 Reason Not Given: Not Medically Necessary nitrofurantoin monohydrate/macrocrystals 100 mg capsule Performing Provider: Mary Rocha MD Performing Location: [facility] Administered by: Deneen Butt RN on 12/27/24 11:09 Dose Route Admin Location Dispensed Lot Number Expiration Date NDC Cement Worker 100 mg PO 1 cap Results AMB Urinalysis, Automated UA Leukoctes 0 Asad/uL Last Edit by Deneen Butt RN on 12/27/24 11:13 UA Nitrite Negative Last Edit by Deneen Butt RN on 12/27/24 11:13 UA Urobilinogen 3.5 mg/dL Last Edit by Deneen Butt RN on 12/27/24 11:13 UA Protein 0.1 mg/dL Last Edit by Deneen Butt RN on 12/27/24 11:13 UA pH 6.0 Last Edit by Deneen Butt RN on 12/27/24 11:13 UA Blood 200 [place]/uL Last Edit by Deneen Butt RN on 12/27/24 11:13 UA Specific [place] 1.0 Last Edit by Deneen Butt RN on 12/27/24 11:13 UA Ketone Negative Last Edit by Deneen Butt RN on 12/27/24 11:13 UA Bilirubin 17 mg/dL Last Edit by Deneen Butt RN on 12/27/24 11:13 UA Glucose 0 mg/dL Last Edit by Deneen Butt RN on 12/27/24 11:13 Assessment & Plan Assessment & Plan Orders: Orders AMB Urodynamics Studies Today N20.0 - Calculus of kidney AMB Urinalysis Automated Today Z13.9 - Encounter for screening, unspecified Coding CPT Codes Urodynamic Studies - CPT: 53245-Wpgbfnyyqufqvy w/ CARGO BRACER ([id number]) Urodynamic Studies - CPT: 30817-Dugolaa-Maxcvycxdurb ([id number]) Urodynamic Studies - CPT: 90006-Mwei/Urinary Muscle Study ([id number]) Urodynamic Studies - CPT: 39480-Iuseu-Vbhakbvby Pressure Test ([id number])
--- NOTE | 2024-12-27 13:44 | MHC.OFFVIS ---
Intake Visit Reasons: UroD Allergies ibuprofen (From Motrin) Allergy (Verified 12/24/24 09:21) Unknown acetaminophen Adverse Reaction (Intermediate, Verified 12/24/24 09:21) Liver problems atorvastatin Adverse Reaction (Intermediate, Verified 12/24/24 09:21) elevated LFTs rosuvastatin Adverse Reaction (Intermediate, Verified 12/24/24 09:21) elevated LFTs Medication List - Last Reconciled 12/27/24 by Mary Rocha MD apixaban (Eliquis) 5 mg PO BID 30 days cariprazine (Vraylar) 4.5 mg (3 x 1.5 mg) PO DAILY cholecalciferol (vitamin D3) (Vitamin D3) 25 mcg PO DAILY 90 days docusate sodium 100 mg PO DAILY evolocumab (Repatha SureClick) 140 mg subcut Q2W 4 weeks famotidine 20 mg PO BEDTIME gabapentin 800 mg PO TID 30 days lidocaine 5% 1 patch topical DAILY linaclotide (Linzess) 290 mcg PO QAM lorazepam 1 mg PO TID PRN 30 days meclizine 25 mg PO TID PRN 30 days melatonin 10 mg (2 x 5 mg) PO BEDTIME PRN 30 days midodrine 10 mg PO TID@0900,1300,1700 pantoprazole 40 mg PO QAM pantoprazole 40 mg PO QAM [Patient Own Medication 1 ea PO BID PRN] solifenacin (Vesicare) 10 mg PO DAILY topiramate 25 mg PO DAILY tramadol 100 mg (2 x 50 mg) PO Q8H PRN 30 days trazodone 50 mg PO BEDTIME PRN 30 days verapamil 40 mg PO BID HPI Comments Details: Xenia is here for urodynamics. The patient has complaints of urinary incontinence. Interpretation: During the filling phase there detrusor overactivity and leakage with uninhibited contractions. Stress was not able to be objectively tested. EMG- Appropriate changes in the waveforms were noted through out the study. Discussed OAB care pathway, including fluid management, dietary modifications, including caffeine intake. Bladder control strategies, including pelvic floor exercises. Discessed that urinary leakage can be related to pelvic floor muscles weakness and/or bladder spasms. Treatment options discussed for OAB included anticholinergics/antimuscarinics, neuromodulation, bladder botox injection. In discussion with the patient today she has a right solitary kidney secondary to left nephrectomy from kidney stone disease. I have reviewed recent CT scan noting a nonobstructing right kidney stone, multiple right renal cysts. The patient is followed by nephrology. Plan Vesicare 10 mg daily, monitor kidney stone follow-up renal ultrasound. . [facility] Medical History Pure hypercholesterolemia Left breast mass Pulmonary nodules Chronic kidney disease, stage III (moderate) Obesity (BMI 30-39.9) Renal cyst Diverticulosis Tubular adenoma Asthma Spondylosis of lumbar spine Sacroiliitis Dizziness of unknown etiology Chronic constipation Hx of schizophrenia Panic attacks PTSD (post-traumatic stress disorder) Dyspareunia Pyelonephritis Ingrown toenail Iron deficiency anemia Major depression, recurrent Anxiety Insomnia Tremor Orthostatic hypotension Incisional hernia without obstruction or gangrene Avascular necrosis of femoral head Bilateral carpal tunnel syndrome Peroneal neuropathy Lumbar degenerative disc disease Vitamin D deficiency GERD (gastroesophageal reflux disease) Migraine Hyperlipidemia Surgical History Hx of lithotripsy History of left nephrectomy (~1999) History of colonoscopy History of surgery Hx of cystoscopy History of bilateral breast reduction surgery History of hysterectomy History of cholecystectomy History of endoscopy (~06/2016) History of bladder repair surgery (~03/2015) S/P cystoscopy (~07/30/12) S/P panniculectomy History of hernia repair (~03/29/10) History of bladder surgery (~10/2009) History of gastric bypass (~2008) History of incisional hernia repair (~1999) Hx of umbilical hernia repair (~1999) S/P laparoscopic sleeve gastrectomy Family History Father Liver cancer Mother Breast cancer Sister Lung cancer Other Mental health problem Social History Household Members: Spouse Housing: House Are you a primary healthcare consultant to a significant other at home: No Do you presently have visiting nurse or other home services: No Alcohol intake: never Patient Tobacco Use Status: Never used Tobacco e-Cigarette/Vaping Use: Never Used Second Hand Smoke Exposure: No Advance Directives Date on File: 07/12/21 service: No Current occupational status: disabled Sexual orientation: Straight/Heterosexual Gender identity: Female Cognitive needs: No Hearing needs: No Vision needs: Yes Female Reproductive History Menstrual Age of Menarche: 13 Review of Systems Const All systems reviewed & are unremarkable except as noted in HPI and below Reports no additional complaints Eyes Reports no additional complaints ENT Reports no additional complaints Card Reports no additional complaints Resp Reports no additional complaints GI Reports no additional complaints Reports as per HPI Musc Reports no additional complaints Skin/Breast Reports system reviewed and no additional complaints, except as documented Neuro Reports no additional complaints Psych Reports no additional complaints Endo Reports no additional complaints Catarino/Lymph Reports no additional complaints Aller/Immun Reports no additional complaints Office Procedures Urodynamic Studies Consent Discussed risk and benefit or proposed procedure with the patient. Information consent for procedure given to the patient. Discussed technical aspects, risks, benefits and alternatives in full. Addressed all of the patient's questions and concerns regarding the procedure. The patient demonstrated knowledge and understanding. They wish to proceed with this procedure. Preparation The patient was prepped in the usual manner. A instrument technician helper was present and in the room. Genitalia was prepped with betadine solution in a sterile manner. Procedure Complex Uroflow Complex uroflow performed by: Mary Rocha Maximum urinary flow rate (mL/second): 3.1 Voiding time (seconds): 19 seconds Voided volume (mL): 31ml Residual urine (mL): 15ml Cystometrogram ? Vaginal/rectal catheter type: Vaginal First sensation at (mL): 16mL First desire at (mL): 77mL Strong desire to void occurred at (mL): 151 mL Strong desire detrusor pressure (cm H2O): 16 Maximum Capacity (mL): 175mL Voiding Summary Voided with max detrusor pressure of (cm H2O): 27 Maximum flow rate (mL/second): 8.8mL/s Voided volume (mL): ? 134ml Calculated PVR: 3 mL Stress Testing Unable to perform due to uncontrolled DO. DO Dry: 167ml DO Wet:170ml Test performed with high school coordinator services via ipad. Interpretor ID # [id number] Prep: The patient was prepped in the usual manner. A instrument technician helper was present and in the room. Genitalia was prepped with betadine solution in a sterile manner. 95041-Bpzudxfrvqjmkp w/ PLATE MILL HAND 28184-Ikwgpwe-Uptgpmljuxbl 84181-Ounh/Urinary Muscle Study 02119-Xzoeg-Epgxrabvp Pressure Test Procedure code (CPT) selection complete Office Meds lidocaine HCl 2 % mucosal jelly in applicator Performing Provider: Mary Rocha MD Performing Location[facility] [place] [facility] Documented (not given) by: Deneen Butt RN on 12/27/24 11:09 Reason Not Given: Not Medically Necessary nitrofurantoin monohydrate/macrocrystals 100 mg capsule Performing Provider: Mary Rocha MD Performing Location: [facility] [place] [facility] Administered by: Deneen Butt RN on 12/27/24 11:09 Dose Route Admin Location Dispensed Lot Number Expiration Date NDC Title I Coordinator 100 mg PO 1 cap Results AMB Urinalysis, Automated UA Leukoctes 0 Asad/uL Last Edit by Deneen Butt RN on 12/27/24 11:13 UA Nitrite Negative Last Edit by Deneen Butt RN on 12/27/24 11:13 UA Urobilinogen 3.5 mg/dL Last Edit by Deneen Butt RN on 12/27/24 11:13 UA Protein 0.1 mg/dL Last Edit by Deneen Butt RN on 12/27/24 11:13 UA pH 6.0 Last Edit by Deneen Butt RN on 12/27/24 11:13 UA Blood 200 Montrell/uL Last Edit by Deneen Butt RN on 12/27/24 11:13 UA Specific Clark 1.0 Last Edit by Deneen Butt RN on 12/27/24 11:13 UA Ketone Negative Last Edit by Deneen Butt RN on 12/27/24 11:13 UA Bilirubin 17 mg/dL Last Edit by Deneen Butt RN on 12/27/24 11:13 UA Glucose 0 mg/dL Last Edit by Deneen Butt RN on 12/27/24 11:13 Results Reviewed Results Reviewed: Laboratory Last Values Urine pH (Auto) 6.0 12/27/24 11:09 Specific Clark (Auto) 1.0 12/27/24 11:09 Urine Protein (Auto) 0.1 mg/dL 12/27/24 11:09 Glucose (UA)(Auto) 0 mg/dL 12/27/24 11:09 Urine Ketones (Auto) Negative 12/27/24 11:09 Urine Blood (Auto) 200 Montrell/uL 12/27/24 11:09 Urine Nitrite (Auto) Negative 12/27/24 11:09 Urine Bilirubin (Auto) 17 mg/dL 12/27/24 11:09 Urine Urobilinogen (Auto) 3.5 mg/dL 12/27/24 11:09 Leukocyte Esterase (Auto) 0 Asad/uL 12/27/24 11:09 Assessment & Plan Assessment & Plan (1) OAB (overactive bladder): Code(s): N32.81 - Overactive bladder Category: Medical (2) Solitary kidney, acquired: Comment: (+) Hx of left nephrectomy >20 years ago due to recurrent kidney stones Code(s): Z90.5 - Acquired absence of kidney Category: Medical (3) Renal cyst, acquired: Code(s): N28.1 - Cyst of kidney, acquired Category: Medical (4) Chronic kidney disease, stage III (moderate): Comment: only one kidney Code(s): N18.30 - Chronic kidney disease, stage 3 unspecified Category: Medical Qualifiers: Chronic kidney disease stage 3 subtype: stage 3a (GFR 45-59) Qualified Code(s): N18.31 - Chronic kidney disease, stage 3a (5) Renal calculus, right: Code(s): N20.0 - Calculus of kidney Category: Medical Plan Plan Vesicare 10 mg daily, monitor kidney stone follow-up renal ultrasound. Orders: Orders AMB Urodynamics Studies Today N20.0 - Calculus of kidney AMB Urinalysis Automated Today Z13.9 - Encounter for screening, unspecified US renal BI 2 Months N20.0 - Calculus of kidney Medications: New solifenacin (Vesicare) 10 mg PO DAILY 30 tabs 5RF Coding Level of Care Code Est Pt Level 4 (20449) Complex EM visit Add On G2211 Diagnoses OAB (overactive bladder) N32.81 Solitary kidney, acquired Z90.5 Renal cyst, acquired N28.1 Stage 3a chronic kidney disease N18.31 Chronic kidney disease stage 3 subtype: stage 3a (GFR 45-59) Renal calculus, right N20.0 CPT Codes Urodynamic Studies - CPT: 16118-Odnuyfmucpqakl w/ PLATE MILL HAND ([id number]) Urodynamic Studies - CPT: 03767-Aqferal-Kbrgbouovltt ([id number]) Urodynamic Studies - CPT: 60617-Zkup/Urinary Muscle Study ([id number]) Urodynamic Studies - CPT: 20683-Odbkz-Igkoyicya Pressure Test ([id number])
== END 2024-12-27 12:28 | disposition home or self-care (01) ==
LOC: HO.HUSH 10:06
PROVIDERS: PCP Internal Medicine; Visit Provider Urology
DX: N32.81 Overactive bladder (principal); Z90.5 Acquired absence of kidney; N28.1 Cyst of kidney, acquired; N18.31 Chronic kidney disease, stage 3a; N20.0 Calculus of kidney; Z13.9 Encounter for screening, unspecified
CPT/HCPCS: 51728; 51741; 51784; 51797; 99214

== ENCOUNTER → 2024-12-27 10:05 | Outpatient (BNVA) | payer OTHER, SELFPAY | PROVIDERS: PCP Internal Medicine; Visit Provider Urology | DX: N32.81 Overactive bladder (principal); N20.0 Calculus of kidney; N28.1 Cyst of kidney, acquired; N18.31 Chronic kidney disease, stage 3a; Z90.5 Acquired absence of kidney | CPT/HCPCS: 51728; 51741; 51784; 51797; 81003; 99212 ==

== ENCOUNTER 2024-12-31 12:31 | Outpatient (AMB) | payer OTHER, SELFPAY ==
--- NOTE | 2024-12-31 12:41 | A.OFFVIS_ITS ---
Vital Signs 12/31/24 12:49 Height 5 ft 3 in Weight 181 lb BMI 32.1 BP 100/60 Blood Pressure Location Rt brachial Position Sitting Pulse 56 Intake Visit Reasons: s/p supraumbilical hernia repair Intake Note: Patient here for 2mo follow up s/p removal of periumbilical mass. Patient c/o: constipation, abdominal pain. Denies nausea, vomiting. Here to discuss Abdomen pelvis CT 12-11-2024 and 12-13-2024. Book Jacket Cover Machine Operator Required: Yes Book Jacket Cover Machine Operator Name: Lana # [id number] Accompanied by: Self / Same As Patient Allergies ibuprofen (From Motrin) Allergy (Verified 12/31/24 12:49) Unknown acetaminophen Adverse Reaction (Intermediate, Verified 12/31/24 12:49) Liver problems atorvastatin Adverse Reaction (Intermediate, Verified 12/31/24 12:49) elevated LFTs rosuvastatin Adverse Reaction (Intermediate, Verified 12/31/24 12:49) elevated LFTs HPI HPI s/p supraumbilical hernia repair: Details: solution advisor used for this encounter. Continues to have pain above the belly button, can radiate towards the left side. Sometimes it hurts after she eats, and when she ambulates. She denies nausea or vomiting, constipation/diarrhea. Denies fevers or chills PFSH Medical History Pure hypercholesterolemia Left breast mass Pulmonary nodules Chronic kidney disease, stage III (moderate) Obesity (BMI 30-39.9) Renal cyst Diverticulosis Tubular adenoma Asthma Spondylosis of lumbar spine Sacroiliitis Dizziness of unknown etiology Chronic constipation Hx of schizophrenia Panic attacks PTSD (post-traumatic stress disorder) Dyspareunia Pyelonephritis Ingrown toenail Iron deficiency anemia Major depression, recurrent Anxiety Insomnia Tremor Orthostatic hypotension Incisional hernia without obstruction or gangrene Avascular necrosis of femoral head Bilateral carpal tunnel syndrome Peroneal neuropathy Lumbar degenerative disc disease Vitamin D deficiency GERD (gastroesophageal reflux disease) Migraine Hyperlipidemia Surgical History Hx of lithotripsy History of left nephrectomy (~1999) History of colonoscopy History of surgery Hx of cystoscopy History of bilateral breast reduction surgery History of hysterectomy History of cholecystectomy History of endoscopy (~06/2016) History of bladder repair surgery (~03/2015) S/P cystoscopy (~07/30/12) S/P panniculectomy History of hernia repair (~03/29/10) History of bladder surgery (~10/2009) History of gastric bypass (~2008) History of incisional hernia repair (~1999) Hx of umbilical hernia repair (~1999) S/P laparoscopic sleeve gastrectomy Family History Father Liver cancer Mother Breast cancer Sister Lung cancer Other Mental health problem Social History Household Members: Spouse Housing: House Are you a primary toddler caregiver to a significant other at home: No Do you presently have visiting nurse or other home services: No Alcohol intake: never Patient Tobacco Use Status: Never used Tobacco e-Cigarette/Vaping Use: Never Used Second Hand Smoke Exposure: No Advance Directives Date on File: 07/12/21 service: No Current occupational status: disabled Sexual orientation: Straight/Heterosexual Gender identity: Female Cognitive needs: No Hearing needs: No Vision needs: Yes Female Reproductive History Menstrual Age of Menarche: 13 Review of Systems Const All systems reviewed & are unremarkable except as noted in HPI and below Physical Exam Vital Signs: Last Vital Signs Pulse 56 12/31/24 12:49 BP 100/60 12/31/24 12:49 BMI result Body Mass Index 32.1 Const Other: Tearful during encounter General: no acute distress Orientation/consciousness: patient oriented x3 GI Other: Well healed umbilical incision from previous surgery Inspection: No distended Palpation (GI): Soft to palpation and Tenderness to palpation present (GI) (Throughout the abdomen) Neuro General: patient oriented x3 Assessment & Plan Assessment & Plan (1) Umbilical mass: Comment: s/p removal Code(s): R19.09 - Other intra-abdominal and pelvic swelling, mass and lump Category: Medical (2) Abdominal pain: Code(s): R10.9 - Unspecified abdominal pain Category: Medical Qualifiers: Abdominal location: periumbilical Qualified Code(s): R10.33 - Periumbilical pain Plan 53-year-old female status post abdominal mass excision reporting to the office for follow-up. Patient has been having continued abdominal pain at the umbilicus and left flank that is present every day. Pain occurs with eating, ambulation in his present throughout most of the day. She has not had episodes of nausea or vomiting. Her her bowel function is at baseline using daily Colace. On exam she is tender throughout the abdomen primarily around the umbilicus, and in the left side of the abdomen. The incision site continues to appear well healed. I do not have any concern for infection currently. Patient was recently admitted for psychiatric concerns, while admitted had abdominal CT that did not show a hernia or any other etiology for this pain. Additionally I reviewed these images and was unable to appreciate any cause for this continued pain. At this point I am unsure of etiology at this point, it may be related to her abdominoplasty. I did recommend that she see pain management, for which she states she already sees them and was trying to get approved for an injection but has not been able to do so. They have tried lidocaine patches but nothing has really helped her. I informed the patient that from a surgical standpoint there are no intervention site we can do to assist her with this pain. She did become tearful at this point and is likely frustrated that there was nothing that we can do for her at this time. I did recommend that she continue to follow up with pain management to look for other opportunities to manage his pain, also recommended that she see her PCP. At this point no longer requiring follow up with General surgery she can follow up as needed with any concerns in the future Coding Level of Care Code Est Pt Level 3 (02077) Diagnoses Umbilical mass R19.09 Periumbilical abdominal pain R10.33 Abdominal location: periumbilical Time Spent (min) 30
[2024-12-31 12:49] VITALS: BP 100/60; PULSE 56; BMI 32.1
--- OUTSIDE RECORDS SUMMARY | 2024-12-31 13:44 | XMS_ITS | Encounter Summary ---
Author Organization [employer] Address [address] [facility] [address] [place] [address] Care Team Providers Care Electric Locomotive Firer/Fireman Name Role Phone Unavailable Primary Care Provider Unavailabl e Encounter Details Date Type Department Care Team (Latest Contact Info) Description 01/20/2022 Abstract [facility] CONVERSIONS Dental, Provider, DDS Social [...] PM EST Office Visit [facility] ADULT DENTAL [address] [place] [address] Chari Greenwood [address] [place] [address] documented as of this encounter Visit Diagnoses Not on filedocumented in this encounter
--- OUTSIDE RECORDS SUMMARY | 2024-12-31 13:44 | XMS_ITS | Clinical Summary ---
Author Organization [employer] Address [address] [facility] [address] [place] [address] Care Team Providers Care Bindery Machine Feeder Offbearer Name Role Phone Unavailable Primary Care Provider [...] Description 11/21/2024 8:00 AM EDT Office Visit [facility] ADULT DENTAL [address] [place] [address] Chari Greenwood Dental calculus (Primary Dx); Localized [...] Description 06/05/2025 1:00 PM EST Office Visit [facility] ADULT DENTAL [address] [place] [address] Chari Greenwood [address] [place] [address] Health Maintenance Due Date Last Done Comments [...]
--- OUTSIDE RECORDS SUMMARY | 2024-12-31 13:44 | XMS_ITS | Encounter Summary ---
Author Organization [employer] Address [address] [facility] [address] [place] [address] Care Team Providers Care Body And Fender Mechanic Name Role Phone Unavailable Primary Care Provider Unavailabl e Encounter Details Date Type Department Care Team (Latest Contact Info) Description 11/30/2020 Abstract [facility] CONVERSIONS Dental, Provider, DDS Social [...] Description 06/05/2025 1:00 PM EST Office Visit [facility] ADULT DENTAL [address] [place] [address] Chari Greenwood [address] [place] [address] documented as of this encounter Visit Diagnoses Not on filedocumented in this encounter
--- OUTSIDE RECORDS SUMMARY | 2024-12-31 13:44 | XMS_ITS | Clinical Summary ---
Author Organization [facility] Address [address] [place] [address] Phone Care Team Providers Care Artificial Flowers Dyer Name Role Phone Hung Montelongo MD Primary Care Provider [phone] Allergies No known active allergies Medications VENTOLIN HFA 90 mcg/actuation inhaler TAKE 2 PUFFS INHALED EVERY 6 HOURS NEEDED FOR SHORTNESS OF BREATH OR WHEEZING FOR 30 DAYS 3 Active VITAMIN D3 25 mcg (1,000 unit) capsule TOME WU C PSULA TODOS LOS D 4 Active ferrous sulfate 325 mg (65 mg pilot point iron) tablet TOME WU TABLETA TODOS LOS [...] topic Medical Devices Not on file Insurance [facility] [employer] Care Teams Artificial Flowers Dyer Relationship Specialty Start Date End Date Hung Montelongo MD [address] [place] [address] [place] [address] PCP - General Internal Medicine 07/24/23 Additional Source Comments The information contained in this document represents components of the legal health record. It is not the complete legal health record.[facility]
--- OUTSIDE RECORDS SUMMARY | 2024-12-31 13:44 | XMS_ITS | Clinical Summary ---
Author Organization [facility] Address [address] [address] Phone Care Team Providers Care Critical Care Unit Nurse Name Role Phone Hung Montelongo MD Primary Care Provider [phone]- [phone] Allergies Active Allergy Reactions Criticality Noted Date [...] [facility] [address] [place] [address] Alejandro Benz MD [address] [facility] [address] [place] [id number] Health Maintenance Due Date Last Done Comments Breast Cancer Screening 1970 Hepatitis B Vaccine (1 of 3 - 19+ 3-dose series) 11/17 Pneumococcal Vaccine: 50+ Years (1 of 2 - PCV) 989 Colorectal Cancer Screening: Annual FOBT 2018 Colorectal Cancer Screening: Colonoscopy 2018 Colorectal Cancer Screening: Sigmoidoscopy 2018 Influenza Vaccine (#1) 2024 [place] [address] [facility] Medicaid Care Teams Critical Care Unit Nurse Relationship Specialty Start Date End Date Hung Montelongo MD [address] [place] [id number] PCP - General 05/11/20
== END 2024-12-31 13:47 | disposition home or self-care (01) ==
LOC: HO.HGS 12:32
PROVIDERS: PCP Internal Medicine
DX: R19.09 Other intra-abdominal and pelvic swelling, mass and lump (principal); R10.33 Periumbilical pain
CPT/HCPCS: 99024

== ENCOUNTER → 2024-12-31 12:31 | Outpatient (BNVA) | payer OTHER, SELFPAY | PROVIDERS: PCP Internal Medicine | DX: K21.9 Gastro-esophageal reflux disease without esophagitis (principal); K57.90 Diverticulosis of intestine, part unspecified, without perforation or abscess without bleeding; R74.01 Elevation of levels of liver transaminase levels; K58.2 Mixed irritable bowel syndrome; K42.9 Umbilical hernia without obstruction or gangrene; R10.9 Unspecified abdominal pain; R10.33 Periumbilical pain; R14.0 Abdominal distension (gaseous); R79.89 Other specified abnormal findings of blood chemistry | CPT/HCPCS: 99212 ==

== ENCOUNTER 2024-12-31 14:32 | Outpatient (AMB) | payer OTHER, SELFPAY ==
--- NOTE | 2024-12-31 14:42 | A.OFFVIS_ITS ---
Vital Signs 12/31/24 14:47 Height 5 ft 3 in Weight 181 lb BMI 32.1 BP 100/60 Blood Pressure Location Rt brachial Position Sitting Pulse 56 Pulse Source Pulse Oximeter Pulse Oximetry (%) 96 Oxygen Delivery Method Room Air Intake Visit Reasons: Pt requested earlier appt. GERD + CIC mgmt. Intake Note: Est pt for mgmt of GERD + CIC. CC; C.O. generalized abd pain intermittently. Pt denies any additional sx or concerns at this time and states that her Linzess and her Pantoprazole are working OK. Network Services Project Manager Required: Yes Network Services Project Manager Services: Network Services Project Manager Present Network Services Project Manager Name: Jordan [id number] + [facility] [place] Information Interpreted: clinical only Accompanied by: Self / Same As Patient Allergies ibuprofen (From Motrin) Allergy (Verified 12/31/24 14:44) Unknown acetaminophen Adverse Reaction (Intermediate, Verified 12/31/24 14:44) Liver problems atorvastatin Adverse Reaction (Intermediate, Verified 12/31/24 14:44) elevated LFTs rosuvastatin Adverse Reaction (Intermediate, Verified 12/31/24 14:44) elevated LFTs Citalopram Analogues Adverse Reaction (Unknown, Verified 12/31/24 14:44) Unknown prednisone Adverse Reaction (Unknown, Verified 12/31/24 14:44) Unknown tramadol Adverse Reaction (Unknown, Verified 12/31/24 14:44) Unknown HPI HPI Pt requested earlier appt. GERD + CIC mgmt.: Details: LAST VISIT Abnormal LFTs Constipation GERD (gastroesophageal reflux disease) Postprandial abdominal bloating Plan Continue pantoprazole and famotidine. Avoid dietary triggers and late night snacking. Staying upright for minimum 3 hours after meals discussed with patient. To see patient will increase fluid intake. Will increase Linzess to 290 mcg daily. Patient can take Mag citrate when she gets home. She will call our office if she will continue to have constipation. May add Dulcolax at bedtime as needed. Follow-up in 3-4 months, sooner on as needed basis. She is agreeable to this plan and verbalizes understanding of instructions. She was given the opportunity to ask questions and all questions answered New linaclotide (Linzess) 290 mcg PO QAM 30 caps 4RF K59.00 magnesium citrate 150 mL PO DAILY PRN 296 mL 4RF constipation K59.00 hydrocortisone 2.5% (Proctosol HC) 1 appl UT BID-QID PRN 30 grams 2RF hemorrhoids K64.9 Discontinued linaclotide Discontinued Reason: Doctor's Order 145 mcg PO DAILY 30 caps 3RF GI CONSULT 12/13/[address] DEEJAY CHIN Reason for consult: Elevated LFTs This is a 54-year-old female with past medical history of asthma, hyperlipidemia, history of nephrectomy, gastric bypass, schizophrenia, who was currently admitted for inpatient psychiatric care for auditory and visual hallucinations. Gastroenterology has been consulted for elevated LFTs. Patient seen and examined room on M5. Gives a very wick positive review of system including headache, blurry vision, ringing in ears, shortness of breath, left lower quadrant pain, hip pain, itching over her body, pins and needle in her feet. she also reports difficulty passing stools, and has only been passing amrita for the last couple of days. This in the absence of taking Linzess. Tells me that her partner has brought The medication to the hospital just today. Does not report any nausea or difficulty eating. Does not report epigastric or right-sided abdominal pain. No recent travel. Only new med is verapamil. Patient was seen for similar issue in 2023 as well, and at that time elevated LFTs were deemed to be secondary to drug-induced liver injury. At that time, she had workup done for autoimmune hepatitis, celiac disease, alcohol use, chronic hepatitis, AST at that time was 181, ALT 525, normal bilirubin, alk-phos 172. These trended down to near normal within a week. Iron overload, alpha-1 antitrypsin disease, Jean disease. Which were all normal. She has also had multiple FibroSure yours with F0 fibrosis and A0 inflammation. For imaging, she had CT abdomen and pelvis done 2 days ago. She is post cholecystectomy. Personal review of the images show nondilated CBD of 5 mm, without any radiopaque stone or sludge. Assessment and Plan (1) Elevated LFTs: Status: Acute (2) Chronic constipation: Status: Acute (3) IBS (irritable bowel syndrome): Status: Acute Plan DDx for LFTs include CBD stone vs SOD vs DILI. Prev w/up neg for other causes such as wilsons, A1AT, iron overload, AIH, chronic infectious hep. Plan: - Check US Abd - Monitor LFTs - If do not spontaneously trend down over 48-72 hours like last time, may need MRI liver protocol Pt also with known IBS and currently reports worsening of constipation. This is likely in the setting of missing Linzess. Plan: - resume Linzess - add MiraLax 1 to 2 times a day x 2 days to aid in constipation - fiber capsules TODAY'S VISIT Patient is here today for requested visit. Patient reports that she has been having epigastric pain and abdominal bloating with cramping to her left and right upper quadrant. Patient reports that she is moving her bowels. Takes Linzess and has bowel movements without any issues. Patient takes pantoprazole in the morning and famotidine at bedtime. Her symptoms of acid reflux are wick ppressed for the most part, however she still complains of occasional epigastric pain. Patient reports occasional dyspepsia without dysphagia or odynophagia. Denies melena, hematochezia, unintentional weight loss or ribbon like stools. Patient denies nausea or vomiting. Denies fever or chills. No change in her diet. Patient mostly eats Mongolian food. [facility] Medical History Pure hypercholesterolemia Left breast mass Pulmonary nodules Chronic kidney disease, stage III (moderate) Obesity (BMI 30-39.9) Renal cyst Diverticulosis Tubular adenoma Asthma Spondylosis of lumbar spine Sacroiliitis Dizziness of unknown etiology Chronic constipation Hx of schizophrenia Panic attacks PTSD (post-traumatic stress disorder) Dyspareunia Pyelonephritis Ingrown toenail Iron deficiency anemia Major depression, recurrent Anxiety Insomnia Tremor Orthostatic hypotension Incisional hernia without obstruction or gangrene Avascular necrosis of femoral head Bilateral carpal tunnel syndrome Peroneal neuropathy Lumbar degenerative disc disease Vitamin D deficiency GERD (gastroesophageal reflux disease) Migraine Hyperlipidemia Surgical History Hx of lithotripsy History of left nephrectomy (~1999) History of colonoscopy History of surgery Hx of cystoscopy History of bilateral breast reduction surgery History of hysterectomy History of cholecystectomy History of endoscopy (~06/2016) History of bladder repair surgery (~03/2015) S/P cystoscopy (~07/30/12) S/P panniculectomy History of hernia repair (~03/29/10) History of bladder surgery (~10/2009) History of gastric bypass (~2008) History of incisional hernia repair (~1999) Hx of umbilical hernia repair (~1999) S/P laparoscopic sleeve gastrectomy Family History Father Liver cancer Mother Breast cancer Sister Lung cancer Other Mental health problem Social History Household Members: Spouse Housing: House Are you a primary managed care analyst to a significant other at home: No Do you presently have visiting nurse or other home services: No Alcohol intake: never Patient Tobacco Use Status: Never used Tobacco e-Cigarette/Vaping Use: Never Used Second Hand Smoke Exposure: No Advance Directives Date on File: 07/12/21 service: No Current occupational status: disabled Sexual orientation: Straight/Heterosexual Gender identity: Female Cognitive needs: No Hearing needs: No Vision needs: Yes Female Reproductive History Menstrual Age of Menarche: 13 Review of Systems Const Denies weight gain and Denies weight loss ENT Reports no additional complaints, Denies dysphagia and Denies odynophagia Card Reports no additional complaints Resp Reports no additional complaints GI Reports abdominal pain, Denies belching, Denies melena, Reports bloating, Denies change in bowel habits, Reports constipation, Denies dysphagia, Denies excessive flatus, Denies dyspepsia, Reports heartburn, Denies diarrhea, Denies loose stools, Denies nausea, Denies odynophagia and Denies vomiting Reports no additional complaints Musc Reports no additional complaints Neuro Reports no additional complaints Psych Reports no additional complaints Endo Reports no additional complaints Physical Exam Vital Signs: Last Vital Signs Pulse 56 12/31/24 14:47 BP 100/60 12/31/24 14:47 Pulse Ox 96 12/31/24 14:47 Oxygen Delivery Method Room Air 12/31/24 14:47 BMI result Body Mass Index 32.1 Const General: healthy appearing, no acute distress and well developed Nutritional Appearance: well nourished and obese Orientation/consciousness: patient oriented x3 Resp Effort & Inspection: normal respiratory effort, able to speak in complete sentences, no tracheal deviation and symmetric chest movement Auscultation: clear to auscultation bilaterally Cardio Rate: regular rate (58 apical, checked with stethoscope) GI Inspection: Yes normal to inspection, No distended and Yes obesity Palpation (GI): Soft to palpation, not firm, Tenderness to palpation present (GI) (Periumbilical area) and Hernia present umbilical Auscultation: normal bowel sounds General: Yes no CVA tenderness Back/Spine/Pelvis Back: no CVA tenderness Skin General skin exam: elasticity normal, turgor normal and dry skin Neuro General: patient oriented x3 Psych Appearance: grossly normal Mental Status: mental status grossly normal Assessment & Plan Assessment & Plan (1) GERD (gastroesophageal reflux disease): Code(s): K21.9 - Gastro-esophageal reflux disease without esophagitis Category: Medical Qualifiers: Esophagitis presence: without esophagitis Qualified Code(s): K21.9 - Gastro-esophageal reflux disease without esophagitis (2) Diverticulosis: Code(s): K57.90 - Diverticulosis of intestine, part unspecified, without perforation or abscess without bleeding Category: Medical (3) Transaminitis: Code(s): R74.01 - Elevation of levels of liver transaminase levels Category: Medical (4) Chronic constipation: Code(s): K59.09 - Other constipation Category: Medical (5) IBS (irritable bowel syndrome): Code(s): K58.9 - Irritable bowel syndrome, unspecified Category: Medical Qualifiers: Irritable bowel syndrome type: with both diarrhea and constipation Qualified Code(s): K58.2 - Mixed irritable bowel syndrome (6) Constipation: Code(s): K59.00 - Constipation, unspecified Category: Medical Qualifiers: Constipation type: drug induced constipation Qualified Code(s): K59.03 - Drug induced constipation (7) Umbilical hernia: Code(s): K42.9 - Umbilical hernia without obstruction or gangrene Category: Surgical Qualifiers: Obstruction and gangrene presence: without obstruction or gangrene Qualified Code(s): K42.9 - Umbilical hernia without obstruction or gangrene (8) Abdominal pain: Code(s): R10.9 - Unspecified abdominal pain Category: Medical Qualifiers: Abdominal location: periumbilical Qualified Code(s): R10.33 - Periumbilical pain (9) Abnormal LFTs: Code(s): R79.89 - Other specified abnormal findings of blood chemistry Category: Medical (10) Postprandial abdominal bloating: Code(s): R14.0 - Abdominal distension (gaseous) Plan Continue current treatment with PPI and H2 jl. Avoid dietary triggers and late night snacking. Staying upright for minimum 3 hours after meals discussed patient. Continue Linzess. Increase fluid intake and activity to promote better bowel motility. Patient can use dicyclomine as needed for cramping. Low FODMAP diet addressed with patient again. List of food recommended as well as list of food to avoid given to patient again. Patient has appointment set up in January. Patient was encouraged to call our office if she will have any GI concerning symptoms. Patient is agreeable to current plan of care and verbalizes understanding of instructions. She was given the opportunity to ask questions and all questions answered. Thank you for allowing me to participate in her care Medications: New dicyclomine 10 mg PO BID PRN 20 caps 0RF abdominal discomfort K58.9 - Irritable bowel syndrome, unspecified Coding Level of Care Code Est Pt Level 4 (01558) Diagnoses Gastroesophageal reflux disease without esophagitis K21.9 Esophagitis presence: without esophagitis Diverticulosis K57.90 Transaminitis R74.01 Chronic constipation K59.09 Irritable bowel syndrome with both constipation and diarrhea K58.2 Irritable bowel syndrome type: with both diarrhea and constipation Drug-induced constipation K59.03 Constipation type: drug induced constipation Umbilical hernia without obstruction and without gangrene K42.9 Obstruction and gangrene presence: without obstruction or gangrene Periumbilical abdominal pain R10.33 Abdominal location: periumbilical Abnormal LFTs R79.89 Postprandial abdominal bloating R14.0 Time Spent (min) 40 Comment 25 minutes spent with patient and additional 15 minutes spent reviewing her records
[2024-12-31 14:47] VITALS: BP 100/60; PULSE 56; O2SAT 96; BMI 32.1
== END 2024-12-31 15:19 | disposition home or self-care (01) ==
LOC: HO.HGI 14:33
PROVIDERS: PCP Internal Medicine; Visit Provider Nurse Practitioner Family
DX: K21.9 Gastro-esophageal reflux disease without esophagitis (principal); K57.90 Diverticulosis of intestine, part unspecified, without perforation or abscess without bleeding; R74.01 Elevation of levels of liver transaminase levels; K59.09 Other constipation; K58.2 Mixed irritable bowel syndrome; K59.03 Drug induced constipation; K42.9 Umbilical hernia without obstruction or gangrene; R10.33 Periumbilical pain; R79.89 Other specified abnormal findings of blood chemistry; R14.0 Abdominal distension (gaseous)
CPT/HCPCS: 99214

== ENCOUNTER 2025-01-29 11:46 | Outpatient (AMB) | payer OTHER, SELFPAY ==
--- NOTE | 2025-01-29 12:05 | MHC.OFFVIS ---
Intake Visit Reasons: 6m Volunteer Services Coordinator Required: Yes Volunteer Services Coordinator Name: #[id number] Allergies ibuprofen (From Motrin) Allergy (Verified 01/29/25 12:08) Unknown acetaminophen Adverse Reaction (Intermediate, Verified 01/29/25 12:08) Liver problems atorvastatin Adverse Reaction (Intermediate, Verified 01/29/25 12:08) elevated LFTs rosuvastatin Adverse Reaction (Intermediate, Verified 01/29/25 12:08) elevated LFTs Citalopram Analogues Adverse Reaction (Unknown, Verified 01/29/25 12:08) Unknown prednisone Adverse Reaction (Unknown, Verified 01/29/25 12:08) Unknown tramadol Adverse Reaction (Unknown, Verified 01/29/25 12:08) Unknown Medication List - Last Reconciled 01/29/25 by Deloris Martínez, ADORE apixaban (Eliquis) 5 mg PO BID 30 days cariprazine (Vraylar) 4.5 mg (3 x 1.5 mg) PO DAILY cholecalciferol (vitamin D3) (Vitamin D3) 25 mcg PO DAILY 90 days dicyclomine 10 mg PO BID PRN docusate sodium 100 mg PO DAILY evolocumab (Repatha SureClick) 140 mg subcut Q2W 4 weeks famotidine 20 mg PO BEDTIME gabapentin 800 mg PO TID 30 days lidocaine 5% 1 patch topical DAILY linaclotide (Linzess) 290 mcg PO QAM lorazepam 1 mg PO TID PRN 30 days meclizine 25 mg PO TID PRN 30 days melatonin 10 mg (2 x 5 mg) PO BEDTIME PRN 30 days midodrine 10 mg PO TID@0900,1300,1700 pantoprazole 40 mg PO QAM [Patient Own Medication 1 ea PO BID PRN] rizatriptan take 1 tab at onset of headache; if no relief may repeat 1 tab after at least 2 hrs; max = 3 tabs/24 hr PO solifenacin (Vesicare) 10 mg PO DAILY tramadol 100 mg (2 x 50 mg) PO Q8H PRN 30 days trazodone 50 mg PO BEDTIME PRN 30 days HPI Comments Details: 54-year-old woman with h/o obesity, s/p gastrectomy, diagnoses of severe depression, PTSD, anxiety, and migraine. She was getting headache about 1-2x/month. Rizatriptan as needed helped, but she ran out of medication. Sleep was not so good. [facility] Medical History Pure hypercholesterolemia Left breast mass Pulmonary nodules Chronic kidney disease, stage III (moderate) Obesity (BMI 30-39.9) Renal cyst Diverticulosis Tubular adenoma Asthma Spondylosis of lumbar spine Sacroiliitis Dizziness of unknown etiology Chronic constipation Hx of schizophrenia Panic attacks PTSD (post-traumatic stress disorder) Dyspareunia Pyelonephritis Ingrown toenail Iron deficiency anemia Major depression, recurrent Anxiety Insomnia Tremor Orthostatic hypotension Incisional hernia without obstruction or gangrene Avascular necrosis of femoral head Bilateral carpal tunnel syndrome Peroneal neuropathy Lumbar degenerative disc disease Vitamin D deficiency GERD (gastroesophageal reflux disease) Migraine Hyperlipidemia Surgical History Hx of lithotripsy History of left nephrectomy (~1999) History of colonoscopy History of surgery Hx of cystoscopy History of bilateral breast reduction surgery History of hysterectomy History of cholecystectomy History of endoscopy (~06/2016) History of bladder repair surgery (~03/2015) S/P cystoscopy (~07/30/12) S/P panniculectomy History of hernia repair (~03/29/10) History of bladder surgery (~10/2009) History of gastric bypass (~2008) History of incisional hernia repair (~1999) Hx of umbilical hernia repair (~1999) S/P laparoscopic sleeve gastrectomy Family History Father Liver cancer Mother Breast cancer Sister Lung cancer Other Mental health problem Social History Household Members: Spouse Housing: House Are you a primary college and career counselor to a significant other at home: No Do you presently have visiting nurse or other home services: No Alcohol intake: never Patient Tobacco Use Status: Never used Tobacco e-Cigarette/Vaping Use: Never Used Second Hand Smoke Exposure: No Advance Directives Date on File: 07/12/21 service: No Current occupational status: disabled Sexual orientation: Straight/Heterosexual Gender identity: Female Cognitive needs: No Hearing needs: No Vision needs: Yes Female Reproductive History Menstrual Age of Menarche: 13 Review of Systems Const Denies chills, Denies daytime sleepiness, Reports difficulty sleeping, Denies fatigue, Denies fever(s), Denies frequent falls, Reports headache(s), Denies increased appetite, Denies poor appetite, Denies snoring, Denies weakness, Denies weight gain and Denies weight loss Eyes Denies loss of vision ENT Denies vertigo, Denies dizziness and Reports headache(s) Card Denies chest pain at rest, Denies chest pain with activity, Denies syncope, Denies leg edema and Denies palpitations Resp Denies snoring GI Denies constipation, Denies heartburn, Denies diarrhea and Denies nausea Denies urinary frequency, Denies urinary incontinence and Denies urinary urgency Musc Denies abnormal gait, Denies numbness and Denies tingling Skin/Breast Denies dry skin and Denies rash Neuro Denies abnormal gait, Denies vertigo, Denies dizziness, Denies syncope, Denies frequent falls, Reports headache(s), Denies lack of coordination, Denies loss of vision, Denies memory loss, Denies numbness, Denies restless legs, Denies seizure-like activity, Denies tingling, Denies paresthesias, Denies tremor(s) and Denies weakness Psych Reports anxiety, Denies depression, Denies auditory hallucinations, Denies memory loss, Denies visual hallucinations and Denies suicidal ideation Endo Denies fatigue and Denies palpitations Physical Exam Const Other: General Appearance:? normal, in no acute distress. Skin:? no rashes, no significant birthmarks. Heart:? S1, S2 normal, no murmurs. Lungs:? clear anteriorly and posteriorly. Extremities:? no edema. Psych:? alert, oriented, cognitive function intact, cooperative with exam. Neuro Other: Mental Status:?Alert and awake with normal sp speech, fluency, comprehension, and flat affect. Cranial Nerves:?Pupils are equal, round and reactive to light. External occular muscles are intact. Visual baker are full. Face is symmetrical. Facial sensations are normal. Tongue is midline. Palate elevates symmetrically. Shoulder shrugging is normal. Hearing to bedside conversation is normal. Coordination:?No ataxia,?no titubation.? Gait Exam: Within normal limits. Cerebellar Signs:?Sloqjd-ln-[id number] is okay. Extrapyramidal System:?No tremor, rigidity with normal facial expressions.? Pronator Drift:?Not present.? Involuntary Movements:?No tremors seen.? Speech:?Normal.? Results Reviewed Results Reviewed: CT brain WO at [facility] in 2018: mild bifrontal/temporal and cerebellar atrophy CT brain WO at [facility] in 2011: OK EMG/NCS at [facility] in Jul 2015: mod to severe lef and mild right peroneal neruopathy Assessment & Plan Assessment & Plan (1) Migraine: Code(s): G43.909 - Migraine, unspecified, not intractable, without status migrainosus Category: Medical Qualifiers: Migraine type: unspecified Status migrainosus presence: without status migrainosus Intractability: not intractable Qualified Code(s): G43.909 - Migraine, unspecified, not intractable, without status migrainosus Plan: Continue rizatriptan 10mg 1 tablet as needed for migraine. Medications: New rizatriptan take 1 tab at onset of headache; if no relief may repeat 1 tab after at least 4 hrs; max = 2 tabs/24 hr PO 10 tabs 5RF 30 days Coding Level of Care Code Est Pt Level 4 (74855) Diagnoses Migraine without status migrainosus, not intractable, unspecified migraine type G43.909 Migraine type: unspecified Status migrainosus presence: without status migrainosus Intractability: not intractable
--- OUTSIDE RECORDS SUMMARY | 2025-01-29 13:23 | XMS_ITS | Clinical Summary ---
Author Organization [employer] Address [address] [place] [address] Care Team Providers Care Principal Statistical Programmer Name Role Phone Unavailable Primary Care Provider [...] 8:00 AM EDT Office Visit [facility] [address] [place] [address] Chari Greenwood Dental calculus (Primary Dx); Localized [...] 1:00 PM EST Office Visit [facility] [address] [place] [address] Chari Greenwood [address] [place] [address] Health Maintenance Due Date Last Done Comments [...] 11/09/2007 Mammogram 2009 COVID-19 Vaccine ( season) 2024 04/12/2023, 01/11/2022, 03/01/2021, Additional history exists Influenza [...]
--- OUTSIDE RECORDS SUMMARY | 2025-01-29 13:23 | XMS_ITS | Encounter Summary ---
Author Organization [employer] Address [address] [place] [address] Care Team Providers Care Dials Inspector Name Role Phone Unavailable Primary Care Provider Unavailabl e Encounter Details Date Type Department Care Team (Latest Contact Info) Description 11/30/2020 Abstract [facility] Dental, Provider, DDS Social [...] Description 06/05/2025 1:00 PM EST Office Visit [facility] [address] [place] [address] Chari Greenwood [address] [place] [address] documented as of this encounter Visit Diagnoses Not on filedocumented in this encounter
--- OUTSIDE RECORDS SUMMARY | 2025-01-29 13:23 | XMS_ITS | Clinical Summary ---
Author Organization [facility] Address [address] [place] [phone] Phone Care Team Providers Care Production Truck Driver Name Role Phone Hung Montelongo MD Primary Care Provider [phone] Allergies No known active allergies Medications VENTOLIN HFA 90 mcg/actuation inhaler TAKE 2 PUFFS INHALED EVERY 6 HOURS NEEDED FOR SHORTNESS OF BREATH OR WHEEZING FOR 30 DAYS 3 Active VITAMIN D3 25 mcg (1,000 unit) capsule TOME WU C PSULA TODOS LOS D 4 Active ferrous sulfate 325 mg (65 mg [place] iron) tablet TOME WU TABLETA TODOS LOS [...] (2 of 2 - PCV) 11/18/2019 11/09/2007 INFLUENZA VACCINE (#1) 2024 , 04/11/2022, 03/05/2021, Additional history exists COVID-19 VACCINE ( season) 2024 04/12/2023, 01/11/2022, 03/01/2021, Additional history exists Adult [...] Not on file Insurance [facility] Care Teams Production Truck Driver Relationship Specialty Start Date End Date Hung Montelongo MD [address] [place] [address] [place] [address] PCP - General Internal Medicine 07/24/23 Additional Source Comments The information contained in this document represents components of the legal health record. It is not the complete legal health record.[facility]
--- OUTSIDE RECORDS SUMMARY | 2025-01-29 13:23 | XMS_ITS | Encounter Summary ---
Author Organization [employer] Address [address] [facility] 7[address] [place] [address] Care Team Providers Care Reservation Sales Agent Name Role Phone Unavailable Primary Care Provider Unavailabl e Encounter Details Date Type Department Care Team (Latest Contact Info) Description 01/20/[address] [facility] CONVERSIONS Dental, Provider, DDS Social [...] Description 06/05/2025 1:00 PM EST Office Visit [facility] ADULT DENTAL [address] [place] [address] Chari Greenwood [address] [place] [address] documented as of this encounter Visit Diagnoses Not on filedocumented in this encounter
--- OUTSIDE RECORDS SUMMARY | 2025-01-29 13:23 | XMS_ITS | Clinical Summary ---
Author Organization [facility] Address [address] [address] Phone Care Team Providers Care Loaders Name Role Phone Hung Montelongo MD Primary Care Provider +1- [phone] Allergies Active Allergy Reactions Criticality Noted Date [...] [facility] [address] [place] [address] Alejandro Benz MD [address] [facility] [address] [place] [phone] Health Maintenance Due Date Last Done Comments Breast Cancer Screening 1970 Hepatitis B Vaccine (1 of 3 - 19+ 3-dose series) 11/17 Pneumococcal Vaccine: 50+ Years (1 of 2 - PCV) 989 Colorectal Cancer Screening: Annual FOBT 2018 Colorectal Cancer Screening: Colonoscopy 2018 Colorectal Cancer Screening: Sigmoidoscopy 2018 Influenza Vaccine (#1) 2024 [place] [address] [facility] [place] [address] Care Teams Loaders Relationship Specialty Start Date End Date Hung Montelongo MD [address] [place] [address] PCP - General 05/11/20
== END 2025-01-29 12:19 | disposition home or self-care (01) ==
LOC: HO.HSM 11:46
PROVIDERS: PCP Internal Medicine; Referring Provider Internal Medicine; Visit Provider Registered Nurse
DX: G43.909 Migraine, unspecified, not intractable, without status migrainosus (principal)
CPT/HCPCS: 99214

== ENCOUNTER → 2025-01-29 11:46 | Outpatient (BNVA) | payer OTHER, SELFPAY | PROVIDERS: PCP Internal Medicine; Referring Provider Internal Medicine; Visit Provider Registered Nurse | DX: G43.909 Migraine, unspecified, not intractable, without status migrainosus (principal); Z79.899 Other long term (current) drug therapy | CPT/HCPCS: 99212 ==

== ENCOUNTER 2025-02-11 13:31 | Outpatient (AMB) | payer OTHER, SELFPAY ==
[2025-02-11 13:35] VITALS: BP 96/64; PULSE 55; O2SAT 100; BMI 32.4
--- NOTE | 2025-02-11 13:35 | MHC.OFFVIS ---
Vital Signs 02/11/25 13:35 Height 5 ft 3 in Weight 182 lb 15.739 oz BMI 32.4 BP 96/64 Blood Pressure Location Lt brachial Position Sitting Pulse 55 Pulse Source Pulse Oximeter Pulse Oximetry (%) 100 Oxygen Delivery Method Room Air Intake Visit Reasons: Pulmonary Nodules Accompanied by: Self / Same As Patient Allergies ibuprofen (From Motrin) Allergy (Verified 02/11/25 13:37) Unknown acetaminophen Adverse Reaction (Intermediate, Verified 02/11/25 13:37) Liver problems atorvastatin Adverse Reaction (Intermediate, Verified 02/11/25 13:37) elevated LFTs rosuvastatin Adverse Reaction (Intermediate, Verified 02/11/25 13:37) elevated LFTs Citalopram Analogues Adverse Reaction (Unknown, Verified 02/11/25 13:37) Unknown prednisone Adverse Reaction (Unknown, Verified 02/11/25 13:37) Unknown tramadol Adverse Reaction (Unknown, Verified 02/11/25 13:37) Unknown HPI Comments Details: The patient is a 54 yo F with asthma, HLD, orthostatic hypotension, hx nephrectomy, hx gastric bypass, migraines, GERD, MIGUEL on CPAP anxiety, depression, schizophrenia admitted to on 01/24/24for depression with SI. On 02/04/24, she was transferred to the hospitalist service due to L-sided weakness that the patient had noted 3-4d ago in association with throbbing headache and chest pains. CT of the head and CTA of the head and neck was negative for acute stroke, bleed, or large vessel occlusion. As for a recently diagnosed PE on 02/01/24 involving the R main PA and segmental branches of the RLL, she had no dyspnea or hypoxic. Therapeutic enoxaparin was transitioned to apixaban and she should take 10 mg bid until 02/12/24, then change to 5 mg bid. She was transferred back to for resumption of inpatient psychiatric care. The patient is tolerating the anticoagulation. 05/15/2024 the patient is here for a pulmonary hospital follow-up visit. She was diagnosed with acute pulmonary embolism primarily affecting her right lung. She did have also evidence of pulmonary nodules and some degree of mosaic pattern pneumonitis on her CT scan. She was placed on Eliquis initially the loading dose and nose tolerating the maintenance dose without any minor major bleeding. She was subsequently discharged from [facility]. She was getting ECT but she has not been able to feel his ECT because the therapy. In addition to that she was found to have a thyroid nodule that was going to be biopsied sometime the end of the month. The patient is able to get the biopsy and stop the Eliquis but she needs bridge with Eliquis since she did have significant clot burden and was considered an unprovoked clot. We did talk about Lovenox and making sure that she gets her shot at the same time she would her Eliquis twice a day for the times instructed to do so prior to her biopsy. The patient will get a repeat CTA to make sure she has stable pulmonary nodules and to make sure the clot burden has subsided. Also, the seems to be a family history of blood clots. Will request a hypercoagulable workup and also check her kidney function specially since she only has 1 functional kidney. She will follow-up in 3 months. If she has any issues she will call for an earlier assessment. 08/05/2024 the patient is here for a pulmonary follow-up visit. Overall the patient has been doing fair. Her breathing overall has been better. She does tolerate the Eliquis as prescribed twice a day. She is very adherent to the medicine. Denies any pleuritic discomfort. Denies any minor major bleeding. The patient was supposed to have a CTA to reassess her blood clots and also her pulmonary nodules 1 measuring up to 7 mm in size. Unfortunately for an unclear reason her insurance denied it. Her last CAT scan was in January of 2024 now we are delaying her care with the CAT scan that was denied. Will go ahead and reorder the CAT scan again, to follow-up the 7 mm pulmonary nodule in to make sure that her emboli have subsided. She also had evidence of mosaic pattern pneumonitis on the CT scan and we can follow-up to see if those are better as well. Her blood work was reviewed. No evidence of any hypercoagulable state that we can explain. Therefore, this is considered unprovoked event. For now she should stay on the medicine anticoagulation. She can stay on the medicine and take the prophylactic dose after year. The other option is after a year consider stopping the Eliquis and monitoring closely her D-dimer. Will have that discussion further to the day. She has also seen Hematology in the past. The patient is also using her CPAP. CPAP therapy has been affecting beneficial. Although she is having hard time with the mask. Is causing her to have a rash in her face. I did give her an N30 I air touch mask that she can try to see if this tolerate her skin better and will assess. The patient will return in 6 months I which point will talk about her anticoagulation. In the meantime she should undergo the CTA to reassess her pulmonary emboli and hopefully we do not see any evidence of chronic thromboembolic disease. And also follow-up with a 7 mm pulmonary nodule in view of her unprovoked event cancers in differential. She did have a biopsy already of the thyroid nodule. She will follow-up with Endocrine regarding those results. 02/11/2025 the patient is here for pulmonary follow-up visit. Overall the patient has been doing well. She did follow-up with Hematology is recommended that she stopped her Eliquis. She has been concerning she has not not stopped it as of yet. I did encourage her to do so. At this point she has been fully treated for the PE. At this point though we would check her D-dimer and several weeks and see if the D-dimer stays stable. If any evidence of any increasing the D-dimer we can also talk about considering prophylactic anticoagulation therapy. Respiratory martin the patient is doing well she denies any chest pains or shortness of breath. She has been using the CPAP. CPAP therapy has been affecting beneficial. She is tolerating the nasal N30 I mask well. She does not need a chinstrap. She will continue to use his therapy as prescribed. Will follow-up in 6 months. Again she is going to have blood work in a few weeks. [facility] Medical History Pure hypercholesterolemia Left breast mass Pulmonary nodules Chronic kidney disease, stage III (moderate) Obesity (BMI 30-39.9) Renal cyst Diverticulosis Tubular adenoma Asthma Spondylosis of lumbar spine Sacroiliitis Dizziness of unknown etiology Chronic constipation Hx of schizophrenia Panic attacks PTSD (post-traumatic stress disorder) Dyspareunia Pyelonephritis Ingrown toenail Iron deficiency anemia Major depression, recurrent Anxiety Insomnia Tremor Orthostatic hypotension Incisional hernia without obstruction or gangrene Avascular necrosis of femoral head Bilateral carpal tunnel syndrome Peroneal neuropathy Lumbar degenerative disc disease Vitamin D deficiency GERD (gastroesophageal reflux disease) Migraine Hyperlipidemia Surgical History Hx of lithotripsy History of left nephrectomy (~1999) History of colonoscopy History of surgery Hx of cystoscopy History of bilateral breast reduction surgery History of hysterectomy History of cholecystectomy History of endoscopy (~06/2016) History of bladder repair surgery (~03/2015) S/P cystoscopy (~07/30/12) S/P panniculectomy History of hernia repair (~03/29/10) History of bladder surgery (~10/2009) History of gastric bypass (~2008) History of incisional hernia repair (~1999) Hx of umbilical hernia repair (~1999) S/P laparoscopic sleeve gastrectomy Family History Father Liver cancer Mother Breast cancer Sister Lung cancer Other Mental health problem Social History Household Members: Spouse Housing: House Are you a primary personal care aide to a significant other at home: No Do you presently have visiting nurse or other home services: No Alcohol intake: never Patient Tobacco Use Status: Never used Tobacco e-Cigarette/Vaping Use: Never Used Second Hand Smoke Exposure: No Advance Directives Date on File: 07/12/21 service: No Current occupational status: disabled Sexual orientation: Straight/Heterosexual Gender identity: Female Cognitive needs: No Hearing needs: No Vision needs: Yes Female Reproductive History Menstrual Age of Menarche: 13 Review of Systems Const Denies weight loss ENT Reports no additional complaints Card Denies chest pain Resp Reports no additional complaints GI Reports no additional complaints Musc Reports no additional complaints Skin/Breast Denies rash Neuro Reports no additional complaints Psych Reports no additional complaints Endo Reports no additional complaints Physical Exam Vital Signs: Last Vital Signs Pulse 55 02/11/25 13:35 BP 96/64 02/11/25 13:35 Pulse Ox 100 02/11/25 13:35 Oxygen Delivery Method Room Air 02/11/25 13:35 BMI result Body Mass Index 32.4 Last Vital Signs Temp 98.3 F 02/08/24 08:00 Pulse 58 02/08/24 08:00 Resp 18 02/08/24 08:00 BP 91/53 L 02/08/24 08:00 Pulse Ox 96 02/08/24 08:00 O2 Del Method Room Air 02/08/24 08:00 Const General: comfortable HEENT Head: Yes normocephalic Neck Neck: Yes supple Chest Chest palpation & inspection: normal inspection of the chest Resp Effort & Inspection: normal respiratory effort and able to speak in complete sentences Auscultation: clear to auscultation bilaterally Cardio Heart sounds: S1 normal heart sound present and S2 normal heart sound present Skin General skin exam: no rashes or lesions noted Extrem General: No edema Assessment & Plan Assessment & Plan (1) Pulmonary embolism: Code(s): I26.99 - Other pulmonary embolism without acute cor pulmonale Category: Medical Qualifiers: Pulmonary embolism type: multiple subsegmental (without acute cor pulmonale) Qualified Code(s): I26.94 - Multiple subsegmental thrombotic pulmonary emboli without acute cor pulmonale (2) Pulmonary nodules: Comment: 7mm nodule Code(s): R91.8 - Other nonspecific abnormal finding of lung field Category: Medical (3) Thyroid nodule: Code(s): E04.1 - Nontoxic single thyroid nodule Category: Medical (4) MIGUEL (obstructive sleep apnea): Comment: mild degree of sleep apnea. The AHI was 5/hr and oxygen mitul was 81%. Code(s): G47.33 - Obstructive sleep apnea (adult) (pediatric) Category: Medical (5) Obesity: Code(s): E66.9 - Obesity, unspecified Category: Medical Qualifiers: Body mass index: BMI 30.0-30.9 Obesity classification: adult class 1 (BMI 30 - 34.9) Obesity type: due to excess calories Serious obesity comorbidity presence: with serious comorbidity Qualified Code(s): E66.811 - Obesity, class 1; E66.09 - Other obesity due to excess calories; Z68.30 - Body mass index [BMI] 30.0-30.9, adult Plan stop Eliquis, monitor Ddimer, if elevates then consider prophylactic dose continue APAP, trial N30i airtouch medium Weight management, need Graphic Coordinator assistance F/U 6 months Orders: Orders D Dimer High Sensitivity Today I26.94 - Multiple subsegmental thrombotic pulmonary emboli without acute cor pulmonale Erythrocyte Sedimentation Rate Today I26.94 - Multiple subsegmental thrombotic pulmonary emboli without acute cor pulmonale Referrals Nutrition/Dietitian Referral E66.09 - Other obesity due to excess calories, E66.811 - Obesity, class 1, Z68.30 - Body mass index [BMI] 30.0-30.9, adult Coding Level of Care Code Est Pt Level 4 (81416) Complex EM visit Add On G2211 Diagnoses Multiple subsegmental pulmonary emboli without acute cor pulmonale I26.94 Pulmonary embolism type: multiple subsegmental (without acute cor pulmonale) Pulmonary nodules R91.8 Thyroid nodule E04.1 MIGUEL (obstructive sleep apnea) G47.33 Class 1 obesity due to excess calories with serious comorbidity and body mass index (BMI) of 30.0 to 30.9 in adult E66.811; E66.09; Z68.30 Body mass index: BMI 30.0-30.9 Obesity classification: adult class 1 (BMI 30 - 34.9) Obesity type: due to excess calories Serious obesity comorbidity presence: with serious comorbidity Time Spent (min) 16
--- OUTSIDE RECORDS SUMMARY | 2025-02-11 16:25 | XMS_ITS | Clinical Summary ---
Author Organization [employer] Address [address] [facility] 7[address] [place] [address] Care Team Providers Care Yarrow Gatherer Name Role Phone Unavailable Primary Care Provider [...] Description 11/21/2024 8:00 AM EDT Office Visit [facility] ADULT DENTAL [address] [place] [address] Chari Greenwood Dental calculus (Primary Dx); Localized [...] Description 06/05/2025 1:00 PM EST Office Visit [facility] ADULT DENTAL [address] [place] [address] Chari Greenwood [address] [place] [address] Health Maintenance Due Date Last Done Comments [...]
--- OUTSIDE RECORDS SUMMARY | 2025-02-11 16:25 | XMS_ITS | Encounter Summary ---
Author Organization [employer] Address [address] [facility] [address] [place] [address] Care Team Providers Care Director Group Sales Name Role Phone Unavailable Primary Care Provider [...] Description 06/05/2025 1:00 PM EST Office Visit [facility] ADULT DENTAL [address] [place] [address] Chari Greenwood [address] [place] [address] documented as of this encounter Visit Diagnoses Not on filedocumented in this encounter
--- OUTSIDE RECORDS SUMMARY | 2025-02-11 16:25 | XMS_ITS | Encounter Summary ---
Author Organization [employer] Address [address] [facility] [address] [place] [address] Care Team Providers Care Typewriter Tester Name Role Phone Unavailable Primary Care Provider Unavailabl e Encounter Details Date Type Department Care Team (Latest Contact Info) Description 01/20/2022 Abstract [facility] CONVERSIONS Dental, Provider, DDS Social History Tobacco [...] Description 06/05/2025 1:00 PM EST Office Visit [facility] ADULT DENTAL [address] [place] [address] Chari Greenwood [address] [place] [address] documented as of this encounter Visit Diagnoses Not on filedocumented in this encounter
--- OUTSIDE RECORDS SUMMARY | 2025-02-11 16:25 | XMS_ITS | Clinical Summary ---
Author Organization [facility] Address [address] [place] [address] Phone Care Team Providers Care Molding Plasterer Name Role Phone Hung Montelongo MD Primary Care Provider +1 -[phone] Allergies No known active allergies Medications VENTOLIN HFA 90 mcg/actuation inhaler TAKE 2 PUFFS INHALED EVERY 6 HOURS NEEDED FOR SHORTNESS OF BREATH OR WHEEZING FOR 30 DAYS 3 Active VITAMIN D3 25 mcg (1,000 unit) capsule TOME WU C PSULA TODOS LOS D 4 Active ferrous sulfate 325 mg (65 mg [place] iron) tablet TOME WU TABLETA TODOS LOS [...] exists Adult Td,Tdap Booster 04/09/2029 04/09/2019, 009 RSV VACCINE (1 - 1-dose 75+ series) 2044 ZOSTER VACCINES Completed 04/03/2022, 02/01/2022 HEPATITIS A [...] topic Medical Devices Not on file Insurance [facility] [place] [address] [employer] [facility] [facility] Care Teams Molding Plasterer Relationship Specialty Start Date End Date Hung Montelongo MD NPI: [id number] [place] [address] [address] [place] [address] PCP - General Internal Medicine 07/24/23 Additional Source Comments The information contained in this document represents components of the legal health record. It is not the complete legal health record.[facility]
== END 2025-02-11 13:54 | disposition home or self-care (01) ==
LOC: HO.HPS 13:32
PROVIDERS: PCP Internal Medicine; Visit Provider Hospitalist
DX: I26.94 Multiple subsegmental thrombotic pulmonary emboli without acute cor pulmonale (principal); R91.8 Other nonspecific abnormal finding of lung field; E04.1 Nontoxic single thyroid nodule; G47.33 Obstructive sleep apnea (adult) (pediatric); E66.811 Obesity, class 1; E66.09 Other obesity due to excess calories; Z68.30 Body mass index [BMI] 30.0-30.9, adult
CPT/HCPCS: 99214

== ENCOUNTER → 2025-02-11 13:31 | Outpatient (BNVA) | payer OTHER, SELFPAY | PROVIDERS: PCP Internal Medicine; Visit Provider Hospitalist | DX: E04.1 Nontoxic single thyroid nodule (principal); E66.09 Other obesity due to excess calories; E66.811 Obesity, class 1; Z68.30 Body mass index [BMI] 30.0-30.9, adult; I26.99 Other pulmonary embolism without acute cor pulmonale; R91.8 Other nonspecific abnormal finding of lung field; G47.33 Obstructive sleep apnea (adult) (pediatric); Z99.89 Dependence on other enabling machines and devices | CPT/HCPCS: 99212 ==

== ENCOUNTER 2025-02-13 10:35 | Outpatient (AMB) | payer OTHER, SELFPAY ==
--- NOTE | 2025-02-13 10:50 | MHC.OFFVIS ---
Vital Signs 02/13/25 10:55 Height 5 ft 3 in Weight 182 lb BMI 32.2 BP 112/68 Blood Pressure Location Rt brachial Position Sitting Pulse 56 Pulse Source Pulse Oximeter Pulse Oximetry (%) 100 Oxygen Delivery Method Room Air Intake Visit Reasons: 30m; 3 mo f/u Gerd, CIC Intake Note: Est pt for mgmt of GERD + CIC. CC: Pt states that she is doing well with the linzess. She is looking to discuss colo/egd and is concerned about trying to take bisacodyl or colace as she states that this causes her to have abd pain. Cardiology Teacher Required: Yes Cardiology Teacher Services: Cardiology Teacher Present Cardiology Teacher Name: Eduin [id number] Information Interpreted: clinical only Accompanied by: Self / Same As Patient Allergies ibuprofen (From Motrin) Allergy (Verified 02/13/25 11:16) Unknown acetaminophen Adverse Reaction (Intermediate, Verified 02/13/25 11:16) Liver problems atorvastatin Adverse Reaction (Intermediate, Verified 02/13/25 11:16) elevated LFTs rosuvastatin Adverse Reaction (Intermediate, Verified 02/13/25 11:16) elevated LFTs Citalopram Analogues Adverse Reaction (Unknown, Verified 02/13/25 11:16) Unknown prednisone Adverse Reaction (Unknown, Verified 02/13/25 11:16) Unknown tramadol Adverse Reaction (Unknown, Verified 02/13/25 11:16) Unknown HPI HPI 30m; 3 mo f/u Gerd, CIC: Details: LAST VISIT: GERD (gastroesophageal reflux disease) Diverticulosis Transaminitis Chronic constipation IBS (irritable bowel syndrome) Constipation Umbilical hernia Abdominal pain Abnormal LFTs Postprandial abdominal bloating Plan Continue current treatment with PPI and H2 jl. Avoid dietary triggers and late night snacking. Staying upright for minimum 3 hours after meals discussed patient. Continue Linzess. Increase fluid intake and activity to promote better bowel motility. Patient can use dicyclomine as needed for cramping. Low FODMAP diet addressed with patient again. List of food recommended as well as list of food to avoid given to patient again. Patient has appointment set up in January. Patient was encouraged to call our office if she will have any GI concerning symptoms. Patient is agreeable to current plan of care and verbalizes understanding of instructions. She was given the opportunity to ask questions and all questions answered. ? Thank you for allowing me to participate in her care New dicyclomine 10 mg PO BID PRN 20 caps 0RF abdominal discomfort K58.9 TODAY'S VISIT: Patient is here today for follow-up and to discuss going for colonoscopy. Patient is scheduled for the end of this month. Patient is confused on what to do for prep. Reports that when she takes Dulcolax she has abdominal cramping. Patient reports abdominal cramping in the left upper quadrant. States that dicyclomine is not helpful. Patient usually takes it twice a day when she has the pain. She is taking Linzess every morning and she is able to move her bowels daily. Patient denies melena, hematochezia, unintentional weight loss or ribbon like stools. Patient denies dyspepsia, dysphagia or odynophagia. Patient reports that she is taking pantoprazole in the morning and her symptoms of acid reflux are suppressed for the most part. Patient denies any nausea or vomiting. Denies diarrhea, mucus in her stool. Denies any cardiac or respiratory symptoms at this time. No issues with anesthesia in the past. [facility] Medical History Pure hypercholesterolemia Left breast mass Pulmonary nodules Chronic kidney disease, stage III (moderate) Obesity (BMI 30-39.9) Renal cyst Diverticulosis Tubular adenoma Asthma Spondylosis of lumbar spine Sacroiliitis Dizziness of unknown etiology Chronic constipation Hx of schizophrenia Panic attacks PTSD (post-traumatic stress disorder) Dyspareunia Pyelonephritis Ingrown toenail Iron deficiency anemia Major depression, recurrent Anxiety Insomnia Tremor Orthostatic hypotension Incisional hernia without obstruction or gangrene Avascular necrosis of femoral head Bilateral carpal tunnel syndrome Peroneal neuropathy Lumbar degenerative disc disease Vitamin D deficiency GERD (gastroesophageal reflux disease) Migraine Hyperlipidemia Surgical History Hx of lithotripsy History of left nephrectomy (~1999) History of colonoscopy History of surgery Hx of cystoscopy History of bilateral breast reduction surgery History of hysterectomy History of cholecystectomy History of endoscopy (~06/2016) History of bladder repair surgery (~03/2015) S/P cystoscopy (~07/30/12) S/P panniculectomy History of hernia repair (~03/29/10) History of bladder surgery (~10/2009) History of gastric bypass (~2008) History of incisional hernia repair (~1999) Hx of umbilical hernia repair (~1999) S/P laparoscopic sleeve gastrectomy Family History Father Liver cancer Mother Breast cancer Sister Lung cancer Other Mental health problem Social History Household Members: Spouse Housing: House Are you a primary workforce investment act career manager to a significant other at home: No Do you presently have visiting nurse or other home services: No Alcohol intake: never Patient Tobacco Use Status: Never used Tobacco e-Cigarette/Vaping Use: Never Used Second Hand Smoke Exposure: No Advance Directives Date on File: 07/12/21 service: No Current occupational status: disabled Sexual orientation: Straight/Heterosexual Gender identity: Female Cognitive needs: No Hearing needs: No Vision needs: Yes Female Reproductive History Menstrual Age of Menarche: 13 Review of Systems Const Denies weight gain and Denies weight loss ENT Reports no additional complaints, Denies dysphagia and Denies odynophagia Card Reports no additional complaints Resp Reports no additional complaints GI Reports abdominal pain (cramping), Denies belching, Denies melena, Reports bloating, Denies change in bowel habits, Reports constipation, Denies dysphagia, Denies excessive flatus, Denies dyspepsia, Reports heartburn, Denies diarrhea, Denies loose stools, Denies nausea, Denies odynophagia and Denies vomiting Reports no additional complaints Musc Reports no additional complaints Neuro Reports no additional complaints Psych Reports no additional complaints Endo Reports no additional complaints Physical Exam Vital Signs: Last Vital Signs Pulse 56 02/13/25 10:55 BP 112/68 02/13/25 10:55 Pulse Ox 100 02/13/25 10:55 Oxygen Delivery Method Room Air 02/13/25 10:55 BMI result Body Mass Index 32.2 Const General: healthy appearing, no acute distress and well developed Nutritional Appearance: well nourished and obese Orientation/consciousness: patient oriented x3 Resp Effort & Inspection: normal respiratory effort, able to speak in complete sentences, no tracheal deviation and symmetric chest movement Auscultation: clear to auscultation bilaterally Cardio Rate: regular rate (58 apical, checked with stethoscope) GI Inspection: Yes normal to inspection, No distended and Yes obesity Palpation (GI): Soft to palpation, not firm, Tenderness to palpation present (GI) (Periumbilical area) and Hernia present umbilical Auscultation: normal bowel sounds General: Yes no CVA tenderness Back/Spine/Pelvis Back: no CVA tenderness Skin General skin exam: elasticity normal, turgor normal and dry skin Neuro General: patient oriented x3 Psych Appearance: grossly normal Mental Status: mental status grossly normal Assessment & Plan Assessment & Plan (1) GERD (gastroesophageal reflux disease): Code(s): K21.9 - Gastro-esophageal reflux disease without esophagitis Category: Medical Qualifiers: Esophagitis presence: without esophagitis Qualified Code(s): K21.9 - Gastro-esophageal reflux disease without esophagitis (2) Transaminitis: Code(s): R74.01 - Elevation of levels of liver transaminase levels Category: Medical (3) Diverticulosis: Code(s): K57.90 - Diverticulosis of intestine, part unspecified, without perforation or abscess without bleeding Category: Medical (4) Chronic constipation: Code(s): K59.09 - Other constipation Category: Medical (5) Colon cancer screening: Code(s): Z12.11 - Encounter for screening for malignant neoplasm of colon Category: Medical (6) IBS (irritable bowel syndrome): Code(s): K58.9 - Irritable bowel syndrome, unspecified Category: Medical Qualifiers: Irritable bowel syndrome type: with both diarrhea and constipation Qualified Code(s): K58.2 - Mixed irritable bowel syndrome (7) Constipation: Code(s): K59.00 - Constipation, unspecified Category: Medical Qualifiers: Constipation type: drug induced constipation Qualified Code(s): K59.03 - Drug induced constipation (8) Abdominal wall pain in left flank: Code(s): R10.9 - Unspecified abdominal pain Category: Surgical (9) Abdominal pain: Code(s): R10.9 - Unspecified abdominal pain Category: Medical Qualifiers: Abdominal location: periumbilical Qualified Code(s): R10.33 - Periumbilical pain Plan Patient will continue Linzess daily. Increase fluid intake and activity to promote better bowel motility. Patient can take hyoscyamine and stop dicyclomine. Patient will call us if hyoscyamine will not be effective. Discussed with patient what to expect before during and after the procedure. Stressed the importance of good bowel prep and clear liquid diet day before procedure. Continue PPI therapy. Discussed with patient avoiding dietary triggers. Patient has the list of low FODMAP food at home and she will try to follow it more carefully. I will see patient after the procedure, sooner on as needed basis. She is agreeable to this plan and verbalizes understanding of instructions. She was given the opportunity to ask questions and all questions answered. Thank you for allowing me to participate in her care Medications: New hyoscyamine sulfate 0.125 mg PO BID PRN 60 tabs 2RF abdominal discomfort bisacodyl (Dulcolax (bisacodyl)) take 4 tabs at noon the day before your colonoscopy 20 mg (4 x 5 mg) PO ONCE 4 tabs 0RF constipation 1 day Z12.11 - Encounter for screening for malignant neoplasm of colon polyethylene glycol 3350 (Miralax) As directed by gastroenterology department at [facility] 238 grams PO ONCE 238 grams 0RF Z12.11 - Encounter for screening for malignant neoplasm of colon Discontinued dicyclomine Discontinued Reason: Doctor's Order 10 mg PO BID PRN 20 caps 0RF abdominal discomfort K58.9 - Irritable bowel syndrome, unspecified Coding Level of Care Code Est Pt Level 4 (14579) Complex EM visit Add On G2211 Diagnoses Gastroesophageal reflux disease without esophagitis K21.9 Esophagitis presence: without esophagitis Transaminitis R74.01 Diverticulosis K57.90 Chronic constipation K59.09 Colon cancer screening Z12.11 Irritable bowel syndrome with both constipation and diarrhea K58.2 Irritable bowel syndrome type: with both diarrhea and constipation Drug-induced constipation K59.03 Constipation type: drug induced constipation Abdominal wall pain in left flank R10.9 Periumbilical abdominal pain R10.33 Abdominal location: periumbilical Time Spent (min) 40 Comment 25 minutes spent with patient and additional 15 minutes spent reviewing her records
[2025-02-13 10:55] VITALS: BP 112/68; PULSE 56; O2SAT 100; BMI 32.2
--- OUTSIDE RECORDS SUMMARY | 2025-02-13 13:09 | XMS_ITS | Encounter Summary ---
Author Organization [employer] Address [address] [facility] [address]t [place] [address] Care Team Providers Care Health Therapist Name Role Phone Unavailable Primary Care Provider Unavailabl e Encounter Details Date Type Department Care Team (Latest Contact Info) Description 01/20/2022 Abstract [facility] CONVERSIONS Dental, Provider, DDS Social [...] Description 06/05/2025 1:00 PM EST Office Visit [facility] ADULT DENTAL [address] [place] [address] Chari Greenwood [address] [place] [address] documented as of this encounter Visit Diagnoses Not on filedocumented in this encounter
--- OUTSIDE RECORDS SUMMARY | 2025-02-13 13:09 | XMS_ITS | Encounter Summary ---
Author Organization [employer] Address [address] [facility] [address] [place] [address] Care Team Providers Care Almond Roaster Name Role Phone Unavailable Primary Care Provider Unavailabl e Encounter Details Date Type Department Care Team (Latest Contact Info) Description 11/30/[address] [facility] CONVERSIONS Dental, Provider, DDS Social History [...] Description 06/05/2025 1:00 PM EST Office Visit [facility] ADULT DENTAL [address] [place] [address] Chari Greenwood [address] [place] [address] documented as of this encounter Visit Diagnoses Not on filedocumented in this encounter
--- OUTSIDE RECORDS SUMMARY | 2025-02-13 13:09 | XMS_ITS | Clinical Summary ---
Author Organization [facility] Address [address] [place] [address] Phone Care Team Providers Care Major Gifts Director Name Role Phone Hung Montelongo MD Primary Care Provider [phone] Allergies No known active allergies Medications VENTOLIN HFA 90 mcg/actuation inhaler TAKE 2 PUFFS INHALED EVERY 6 HOURS NEEDED FOR SHORTNESS OF BREATH OR WHEEZING FOR 30 DAYS 3 Active VITAMIN D3 25 mcg (1,000 unit) capsule TOME WU C PSULA TODOS LOS D 4 Active ferrous sulfate 325 mg (65 mg twenty-nine palms iron) tablet TOME WU TABLETA TODOS LOS [...] topic Medical Devices Not on file Insurance [facility] [employer] [facility] Care Teams Major Gifts Director Relationship Specialty Start Date End Date Hung Montelongo MD NPI: [id number] [place] [address] [address] [place] [id number] PCP - General Internal Medicine 07/24/23 Additional Source Comments The information contained in this document represents components of the legal health record. It is not the complete legal health record.[facility]
--- OUTSIDE RECORDS SUMMARY | 2025-02-13 13:10 | XMS_ITS | Clinical Summary ---
Author Organization [employer] Address [address] [facility] [address] [place] [address] Care Team Providers Care Relationship Consultant Name Role Phone Unavailable Primary Care [...] Description 11/21/2024 8:00 AM EDT Office Visit [facility] ADULT DENTAL [address] [place] [address] Chari Greenwood Dental calculus (Primary Dx); Localized [...] Description 06/05/2025 1:00 PM EST Office Visit [facility] ADULT DENTAL [address] [place] [address] Chari Greenwood [address] [place] [address] Health Maintenance Due Date Last Done Comments [...]
== END 2025-02-13 12:08 | disposition home or self-care (01) ==
LOC: HO.HGI 10:36
PROVIDERS: PCP Internal Medicine; Visit Provider Nurse Practitioner Family
DX: K21.9 Gastro-esophageal reflux disease without esophagitis (principal); R74.01 Elevation of levels of liver transaminase levels; K57.90 Diverticulosis of intestine, part unspecified, without perforation or abscess without bleeding; K58.2 Mixed irritable bowel syndrome; R10.9 Unspecified abdominal pain; R10.33 Periumbilical pain
CPT/HCPCS: 99214

== ENCOUNTER → 2025-02-13 10:35 | Outpatient (BNVA) | payer OTHER, SELFPAY | PROVIDERS: PCP Internal Medicine; Visit Provider Nurse Practitioner Family | DX: K21.9 Gastro-esophageal reflux disease without esophagitis (principal); K59.09 Other constipation; K59.03 Drug induced constipation; R74.01 Elevation of levels of liver transaminase levels; K57.90 Diverticulosis of intestine, part unspecified, without perforation or abscess without bleeding; K58.2 Mixed irritable bowel syndrome; R10.33 Periumbilical pain; Z12.11 Encounter for screening for malignant neoplasm of colon | CPT/HCPCS: 99212 ==

== ENCOUNTER 2025-02-20 21:15 | Inpatient (IN) | payer OTHER, SELFPAY ==
--- NOTE | ~2025-02-20 | CT_ITS ---
CLINICAL HISTORY: R flank pain; Tenderness CT abdomen and pelvis without contrast Comparison: US - US ABDOMEN LIMITED - 12/13/24 17:[address]/SR - CT ABDOMEN PELVIS W IV CON - 12/11/24 18:49 EDT Findings: No consolidation or effusion. The gallbladder is surgically absent. The solid organs are within normal limits. The left kidney is not visualized, presumed surgically absent. 7 mm obstructing calculus present at the right ureteropelvic junction with moderate right hydronephrosis. There is right perinephric fat stranding. No bowel obstruction, pneumoperitoneum, or pneumatosis. There are postsurgical changes compatible with gastric bypass. Postsurgical changes of the left abdominal wall present. The uterus is surgically absent. Minimal gas identified within the nondependent portion of the bladder lumen. No bladder wall thickening. Normal appendix. No acute fracture. Mild sclerosis present at the superior aspect of the right femoral head, suggesting sequela of avascular necrosis. IMPRESSION: 7 mm obstructing calculus present at the right ureteropelvic junction with moderate right hydronephrosis. Minimal gas identified within the nondependent portion of the bladder lumen. This may be iatrogenic in the setting of recent intervention/catheterization. Alternatively, infection may produce a similar appearance. Clinical correlation is advised. This document has been electronically signed by: Kingsley Cleveland MD on 02/20/2025 23:28:12
--- NOTE | ~2025-02-20 | FL_ITS ---
EXAMINATION: FL GUIDANCE ONLY HISTORY: CYSTO STENT PLACEMENT COMPARISON: Correlation is made with a CT of the abdomen and pelvis without contrast dated 02/20/2025. TECHNIQUE: Fluoroscopy time: 13.5 seconds. Cumulative Dose: 3.5250 mGy. DAP: 1.5333 Gycm2 Images: 6. FINDINGS: Fluoroscopic spot films of the right abdomen demonstrate injection of the right ureter, which is dilated. There is moderate hydronephrosis. The final images demonstrate placement of a nephroureteral stent. FL/FL guidance in OR IMPRESSION: Fluoroscopy during procedure. Please see procedure report for additional information. Electronically signed by: Vincenzo Betancourt MD 02/24/2025 08:27 AM EDT
--- NOTE | ~2025-02-20 | US_ITS ---
EXAMINATION: US ABDOMEN LIMITED HISTORY: abn LFTs TECHNIQUE: Real-time grayscale ultrasound imaging of the liver was performed and images were reviewed. COMPARISON: Comparison is made with the prior examination dated 12/13/2024. FINDINGS: The right lobe of the liver measures 14.2 cm in size. The left lobe of the liver measures 8.2 cm in size. The liver demonstrates mildly increased echotexture, consistent with steatosis. There is a 10 x 12 x 9 mm echogenic focus in the right lobe which may represent a hemangioma. No intrahepatic biliary ductal dilatation is identified. There is normal hepatopedal flow in the portal vein. Incidental note is made of right renal cysts as seen on the prior study. US/US abdomen limited IMPRESSION: Mild hepatic steatosis. Probable 12 mm hemangioma in the right lobe. Electronically signed by: Vincenzo Betancourt MD 02/25/2025 07:47 AM EDT
[2025-02-20 21:18] VITALS: BP 183/84; PULSE 66; RESP 20; TEMP 36.5; O2SAT 100; BMI 33.3
--- OUTSIDE RECORDS SUMMARY | 2025-02-20 21:55 | XMS_ITS | Encounter Summary ---
Author Organization [employer] Address [address] [facility] [address] [place] [address] Care Team Providers Care Bioinformatics Technician Name Role Phone Unavailable Primary Care Provider Unavailabl e Encounter Details Date Type Department Care Team (Latest Contact Info) Description 01/20/2022 Abstract [facility] CONVERSIONS Dental, Provider, DDS Social [...] Description 06/05/2025 1:00 PM EST Office Visit [facility] ADULT DENTAL [address] [place] [address] Chari Greenwood [address] [place] [address] documented as of this encounter Visit Diagnoses Not on filedocumented in this encounter
--- OUTSIDE RECORDS SUMMARY | 2025-02-20 21:55 | XMS_ITS | Clinical Summary ---
Author Organization [employer] Address [address] [facility] [address]t [place] [address] Care Team Providers Care Mortgage Accounting Clerk Name Role Phone Unavailable Primary Care [...] Description 11/21/2024 8:00 AM EDT Office Visit [facility] ADULT DENTAL [address] [place] [address] Chari Greenwood Dental calculus (Primary Dx); Localized [...] Description 06/05/2025 1:00 PM EST Office Visit [facility] ADULT DENTAL [address] [place] [address] Chari Greenwood [address] [place] [address] Health Maintenance Due Date Last Done Comments [...]
--- OUTSIDE RECORDS SUMMARY | 2025-02-20 21:55 | XMS_ITS | Encounter Summary ---
Author Organization [employer] Address [address] [facility] [address] [place] [address] Care Team Providers Care Records Manager Name Role Phone Unavailable Primary Care Provider Unavailabl e Encounter Details Date Type Department Care Team (Latest Contact Info) Description 11/30/2020 Abstract [facility] CONVERSIONS Dental, Provider, DDS Social History Tobacco [...] Description 06/05/2025 1:00 PM EST Office Visit [facility] ADULT DENTAL [address] [place] [address] Chari Greenwood [address] [place] [address] documented as of this encounter Visit Diagnoses Not on filedocumented in this encounter
--- OUTSIDE RECORDS SUMMARY | 2025-02-20 21:55 | XMS_ITS | Clinical Summary ---
Author Organization [facility] Address [address] [place] [address] Phone Care Team Providers Care Medical Associate Name Role Phone Hung Montelongo MD Primary Care Provider [phone] [phone] Allergies No known active allergies Medications VENTOLIN HFA 90 mcg/actuation inhaler TAKE 2 PUFFS INHALED EVERY 6 HOURS NEEDED FOR SHORTNESS OF BREATH OR WHEEZING FOR 30 DAYS 3 Active VITAMIN D3 25 mcg (1,000 unit) capsule TOME WU C PSULA TODOS LOS D 4 Active ferrous sulfate 325 mg (65 mg [place]og[place] iron) tablet TOME WU TABLETA TODOS LOS [...] topic Medical Devices Not on file Insurance [facility] [place] [id number] [employer] [facility] Care Teams Medical Associate Relationship Specialty Start Date End Date Hung Montelongo MD NPI: [id number] [place] [address] [address] [place] [address] PCP - General Internal Medicine 07/24/23 Additional Source Comments The information contained in this document represents components of the legal health record. It is not the complete legal health record.[facility]
--- OUTSIDE RECORDS SUMMARY | 2025-02-20 21:55 | XMS_ITS | Clinical Summary ---
Author Organization [facility] Address [address] [address] Phone Care Team Providers Care Neuro Urologist Name Role Phone Hung Montelongo MD Primary Care Provider +1- [phone] Allergies Active Allergy Reactions Criticality Noted Date [...] Visit [facility] [address] [place] [id number] Alejandro Benz MD [address] [facility] [address] [place] [phone] Health Maintenance Due Date Last Done Comments Breast Cancer Screening 1970 Hepatitis B Vaccine (1 of 3 - 19+ 3-dose series) 11/17 Pneumococcal Vaccine: 50+ Years (1 of 2 - PCV) 989 Colorectal Cancer Screening: Annual FOBT 2018 Colorectal Cancer Screening: Colonoscopy 2018 Colorectal Cancer Screening: Sigmoidoscopy 2018 Influenza Vaccine (#1) 2024 [place] [id number] [facility] Medicaid Care Teams Neuro Urologist Relationship Specialty Start Date End Date Hung Montelongo MD [address] [place] [id number] PCP - General 05/11/20
[2025-02-20 22:01] LABS: Mean Corpuscular Hemoglobin 32.7 pg (27.0-33.0); NRBC Abs Auto 0.000 X10*3/uL (0.0-0.012); NRBC Pct Auto 0.0 /100WBC (0.0-0.2); PLT CLUMP 1; SCAN SMEAR FLAG 1
[2025-02-20 22:03] LABS: Hematocrit 40.6 % (37.0-47.0); Hemoglobin 13.2 g/dl (12.0-16.0); Imm Gran Abs Auto 0.06 X10*3/uL (0.00-0.03); Imm Gran Pct Auto 0.5 % (0.0-0.4); Lymphocytes Absolute Auto 1.7 X10*3/uL (1.2-4.9); MANUAL DIFF FLAG SCAN; Mean Corpuscular HGB Conc 32.5 g/dl (31.0-35.0); Mean Corpuscular Volume 100.5 fL (80.0-98.0); Red Blood Count 4.04 X10*6/uL (4.20-5.50)
[2025-02-20 22:09] LABS: Alanine Aminotransferase 55 U/L (0-31); Albumin Level 3.7 g/dL (3.5-5.0); Alkaline Phosphatase 151 U/L (39-117); Anion Gap 12 (12-20); Aspartate Amino Transferase 29 U/L (5-31); Blood Urea Nitrogen 25 mg/dL (9-16); Calcium 8.5 mg/dL (8.4-10.2); Carbon Dioxide 20 mmol/L (22-29); Chloride 112 mmol/L (96-108); Creatinine Clr Calc Pharmacy 40.0; Estimated Glomerular Filt Rate 34; Lipase 14 U/L (8-78); Magnesium 1.9 mg/dL (1.6-2.6); Potassium 4.3 mmol/L (3.3-5.1); Sodium 140 mmol/L (135-145); Total Protein 6.5 g/dL (6.5-8.0)
[2025-02-20 22:28] LABS: White Blood Count 13.1 X10*3/uL (4.8-10.8)
[2025-02-20 22:29] LABS: Platelet Count 224 X10*3/uL (160-400)
[2025-02-20 22:49] VITALS: BP 139/70; PULSE 77; TEMP 37.2; O2SAT 96
--- NOTE | 2025-02-20 22:50 | ED_ITS ---
HPI - General Adult General Chief complaint: General Medical Stated complaint: kidney pain severely, only has 1 kidney Time Seen by Provider: 02/20/25 22:15 Source: patient Mode of arrival: ambulatory Limitations: no limitations History of Present Illness ED Provider: Mekhi CORONA HPI narrative: The patient is a 54-year-old female with a history of left nephrectomy at age 18, overactive bladder, IBS, umbilical hernia status post repair 3 months ago, PE, depression, recurrent UTIs, obesity, panniculitis, PTSD, arthralgias, lumbar radiculopathy, MIGUEL, kidney stones, hyperlipidemia, CKD stage 3, sacroiliitis, chronic constipation, gastric bypass in 2008, iron-deficiency anemia, anxiety, insomnia, orthostatic hypotension, GERD, and migraines, presenting to the ED for evaluation of right flank pain radiating to the right lower quadrant. The patient reports pain began today with the associated nausea, denies associated fever/chills, vomiting, chest pain, shortness of breath, dysuria, hematuria, constipation, diarrhea, hematochezia, melena, recent sick contacts, or recent trauma. Related Data Home Medications ?Medication ?Instructions ?Recorded ?Confirmed albuterol sulfate 90 mcg/actuation 2 puff inhalation Q 6H PRN 02/11/25 aerosol inhaler (Ventolin HFA) furosemide 20 mg tablet (Lasix) 20 mg PO DAILY 5 Previous Rx's ?Medication ?Instructions ?Recorded apixaban 5 mg tablet (Eliquis) 5 mg PO BID 30 days #60 tabs 05/15/24 famotidine 20 mg tablet 20 mg PO BEDTIME #90 tabs linaclotide 290 mcg capsule 290 mcg PO QAM #30 caps (Linzess) cholecalciferol (vitamin D3) 25 25 mcg PO DAILY 90 day s #90 caps 09/19/24 mcg (1,000 unit) capsule (Vitamin D3) melatonin 5 mg tablet 10 mg (2 x 5 mg) PO BEDTIME PRN 09/30/24 Insomnia 30 days #60 tabs Patient Own Medication 1 ea PO BID PRN ##0 12/18/24 cariprazine 1.5 mg capsule 4.5 mg (3 x 1.5 mg) PO NEW Y #0 12/18/24 (Vraylar) caps lorazepam 1 mg tablet 1 mg PO TID PRN severe Anxie ty 30 12/18/24 days #90 tabs midodrine 10 mg tablet 10 mg PO TID@0900,1300,1700 #0 tabs 12/18/24 pantoprazole 40 mg tablet,delayed 40 mg PO QAM #90 tab s 12/20/24 release evolocumab 140 mg/mL subcutaneous 140 mg subcut Q2W 4 weeks #2 mL 12/24/24 pen injector (Tracee Caldwell) tramadol 50 mg tablet 100 mg (2 x 50 mg) PO Q8H IL N 12/24/24 severe pain 30 days #60 tabs solifenacin 10 mg tablet (Vesicare) 10 mg PO DAILY #30 tabs 12/27/24 meclizine 25 mg tablet 25 mg PO TID PRN dizziness 3 0 days 12/29/24 #90 tabs trazodone 50 mg tablet 50 mg PO BEDTIME PRN insomni a 30 01/10/25 days #30 tabs rizatriptan 10 mg disintegrating See Rx Instructions P O .COMPLEX 30 01/29/25 tablet days #10 tabs bisacodyl 5 mg tablet,delayed 20 mg (4 x 5 mg) PO ONCE 02/13/25 release (Dulcolax (bisacodyl)) constipation 1 day #4 t abs hyoscyamine sulfate 0.125 mg 0.125 mg PO BID PRN abdom inal 02/13/25 disintegrating tablet discomfort #60 tabs polyethylene glycol 3350 17 238 g PO ONCE #238 grams 1 gram/dose oral powder (Miralax) gabapentin 800 mg tablet 800 mg PO TID 30 days #90 ta bs 02/19/25 lidocaine 5 % topical patch 1 patch topical DAILY #30 ea 02/19/25 verapamil 40 mg tablet 40 mg PO DAILY 30 days #30 t abs 02/19/25 Allergies Allergy/AdvReac Type Severity Reaction Status Date / Time ibuprofen (From Motrin) Allergy Unknown Verified 02/20/25 21:25 acetaminophen AdvReac Intermediate Liver Verified 02/20/25 21:25 problems atorvastatin AdvReac Intermediate elevated Verified 02/20/25 21:25 LFTs rosuvastatin AdvReac Intermediate elevated Verified 02/20/25 21:25 LFTs Citalopram Analogues AdvReac Unknown Unknown Verified 02/20/25 21:25 prednisone AdvReac Unknown Unknown Verified 02/20/25 21:25 tramadol AdvReac Unknown Unknown Verified 02/13/25 11:16 Review of Systems 2 Review of Systems: Yes all other systems are reviewed and are negative [facility] Past Medical History Medical History Pure hypercholesterolemia Left breast mass Pulmonary nodules Chronic kidney disease, stage III (moderate) Obesity (BMI 30-39.9) Renal cyst Diverticulosis Tubular adenoma Asthma Spondylosis of lumbar spine Sacroiliitis Dizziness of unknown etiology Chronic constipation Hx of schizophrenia Panic attacks PTSD (post-traumatic stress disorder) Dyspareunia Pyelonephritis Ingrown toenail Iron deficiency anemia Major depression, recurrent Anxiety Insomnia Tremor Orthostatic hypotension Incisional hernia without obstruction or gangrene Avascular necrosis of femoral head Bilateral carpal tunnel syndrome Peroneal neuropathy Lumbar degenerative disc disease Vitamin D deficiency GERD (gastroesophageal reflux disease) Migraine Hyperlipidemia Surgical History Hx of lithotripsy History of left nephrectomy (~1999) History of colonoscopy History of surgery Hx of cystoscopy History of bilateral breast reduction surgery History of hysterectomy History of cholecystectomy History of endoscopy (~06/2016) History of bladder repair surgery (~03/2015) S/P cystoscopy (~07/30/12) S/P panniculectomy History of hernia repair (~03/29/10) History of bladder surgery (~10/2009) History of gastric bypass (~2008) History of incisional hernia repair (~1999) Hx of umbilical hernia repair (~1999) S/P laparoscopic sleeve gastrectomy Family History Family History Father Liver cancer Mother Breast cancer Sister Lung cancer Other Mental health problem Social History Social History Household Members: Spouse Housing: House Are you a primary child care development specialist to a significant other at home: No Do you presently have visiting nurse or other home services: No Alcohol intake: never Patient Tobacco Use Status: Never used Tobacco e-Cigarette/Vaping Use: Never Used Second Hand Smoke Exposure: No Advance Directives: Yes Advance Directives on File: Yes Advance Directives Date on File: 07/12/21 Do you have a plan to hurt others: No Plan service: No Current occupational status: disabled Sexual orientation: Straight/Heterosexual Gender identity: Female Cognitive needs: No Hearing needs: No Vision needs: Yes Physical Exam ED Vital Signs: Vital Signs - 24 hr 02/20/25 21:18 02/20/25 22:49 Temperature 97.7 F 98.9 F Pulse Rate 66 77 Respiratory Rate 20 Blood Pressure 183/84 H 139/70 Pulse Oximetry 100 96 Oxygen Delivery Method Room Air Room Air BMI result Body Mass Index 33.3 CONSTITUTIONAL: The patient appears non-toxic, well nourished and in no acute distress. Vital signs as documented. HEAD: Atraumatic, normocephalic. EYES: EOMs grossly intact, pupils equal, conjunctiva clear, no exudate. ENT: Nares patent, no discharge. Airway patent, no audible stridor, visible mucosa is pink and moist without noted lesions. NECK: Trachea is midline, no obvious masses or gross abnormalities. CHEST: Symmetric movement, normal appearance. LUNGS: LS present and CTAB, no w/r/r. Non-labored work of breathing. CARDIAC: Regular Rhythm, S1/S2 appreciated, no murmurs, rubs or gallops. ABDOMEN: Abdomen soft x4 quadrants, positive tenderness to palpation of the right lower quadrant and right upper quadrant, greater than right lower quadrant, positive rebound, negative Rovsing's. no palpable masses or organomegaly. : Deferred. EXTREMITIES: Normal tone, moves all extremities spontaneously without reported pain. No obvious acute injury or deformity noted. NEURO: Alert and oriented x3, CN II-XII appear grossly intact. Cerebellar Functioning grossly intact. No obvious sensory or motor deficits. Speech clear and appropriate. PSYCH: normal affect, appropriate eye contact, fluid speech, with appropriate response to questioning. No reported suicidality or homicidality. SKIN: Warm, dry, color appropriate, normal turgor. No rashes noted. Medications Administered Discontinued Medications Generic Name Dose Route Start Last Admin Trade Name Freq PRN Reason Stop Dose Admin Sodium Chloride 1,000 mls @ 999 mls/hr 02/20/25 22:30 02/20/25 22:26 Ns IV 02/20/25 23:30 999 mls/hr .Q1H1M JYOTHI Administration Morphine Sulfate 4 mg 02/20/25 22:16 02/20/25 22:28 Morphine Sulfate 4 Mg/Ml Cartridge IVPUSH 02/20/25 22:17 4 mg ONCE ONE Administration Protocol Medical Decision Making Medical Decision Making MDM Narrative: 10:56 PM 02/20/2025 (Munira CORONA): The patient is a 54-year-old female with a history of left nephrectomy at age 18, overactive bladder, IBS, umbilical hernia status post repair 3 months ago, PE, depression, recurrent UTIs, obesity, panniculitis, PTSD, arthralgias, lumbar radiculopathy, MIGUEL, kidney stones, hyperlipidemia, CKD stage 3, sacroiliitis, chronic constipation, gastric bypass in 2008, iron-deficiency anemia, anxiety, insomnia, orthostatic hypotension, GERD, and migraines, presenting to the ED for evaluation of right flank pain radiating to the right lower quadrant. The patient reports pain began today with the associated nausea, denies associated fever/chills, vomiting, chest pain, shortness of breath, dysuria, hematuria, constipation, diarrhea, hematochezia, melena, recent sick contacts, or recent trauma. In the ED patient has tenderness to palpation of the right lower quadrant with positive rebound, negative guarding, negative Rovsing's, patient also reports right upper quadrant abdominal tenderness, negative Hebert's. There is positive right CVAT. The patient's laboratory evaluation demonstrates leukocytosis of 13.1 without anemia or electrolyte abnormality. Patient's BUN is elevated at 25, creatinine 1.58, mildly increased compared to previous. The patient's LFTs are mildly elevated with ALT 55 and alkaline phosphatase 151, both of which are improved compared to previous, T bili is normal, lipase is normal. Patient was treated with IV fluid hydration and morphine. Patient's presentation may be secondary to recurrent ureterolithiasis, or possibly acute appendicitis. We will send the patient for CT abdomen and pelvis (without contrast secondary to kidney function and solitary kidney) to evaluate for acute intra-abdominal pathology. 12:14 AM 02/21/2025 (Munira CORONA): The patient is CT has resulted and shows a 7 mm obstructing kidney stone in the right UPJ with moderate right hydronephrosis. Additionally there is minimal gas identified in the bladder which may be secondary to recent catheterization versus infection, patient denies any recent catheterization. Patient will be ordered for a Carlton catheter to assess for possible infected kidney stone, and we will begin empiric antibiotics secondary to CT finding of bladder gas, and leukocytosis of 13. The patient's case was also discussed with Dr. Mayer from urology who agrees with current care plan and recommends admission to the hospitalist service for EHSAN management, NPO after midnight, and she will schedule the patient for stenting tomorrow in the OR. Admission/Observation Consideration of admission/observation: Escalation of care including admission/observation considered Consult Healthcare Provider Management of the patient was discussed with: Hospitalist and Business Mail Entry Clerk Lab Data MDM Lab Attestation statement: I reviewed the patient's lab results. 02/20/25 21:49 02/20/25 21:49 Labs: Lab Results 02/20/25 Range/Units 21:49 WBC 13.1 H (4.8-10.8) X10*3/uL RBC 4.04 L (4.20-5.50) X10*6/uL Hgb 13.2 (12.0-16.0) g/dl Hct 40.6 (37.0-47.0) % MCV 100.5 H (80.0-98.0) fL MCH 32.7 (27.0-33.0) pg MCHC 32.5 (31.0-35.0) g/dl RDW 12.2 (11.0-16.0) % Plt Count 224 (160-400) X10*3/uL MPV 10.3 (9.4-12.3) fL Immature Gran % (Auto) 0.5 H (0.0-0.4) % Neut % (Auto) 79.7 H (45-73) % Lymph % (Auto) 13.3 L (20-40) % Sullivan % (Auto) 4.7 (2-11) % Eos % (Auto) 1.0 (0-4) % Baso % (Auto) 0.8 (0-2) % Lymph # (Auto) 1.7 (1.2-4.9) X10*3/uL Sullivan # (Auto) 0.6 (0.1-1.2) X10*3/uL Eos # (Auto) 0.1 (0.0-0.4) X10*3/uL Baso # (Auto) 0.1 (0.0-0.2) X10*3/uL Abs Immat Gran (auto) 0.06 H (0.00-0.03) X10*3/uL Absolute Neuts (auto) 10.4 H (2.0-8.3) x10*3/uL Absolute Nucleated RBC 0.000 (0.0-0.012) X10*3/uL Nucleated RBC % (auto) 0.0 (0.0-0.2) /100WBC Smear Tech's Comments VERIFIED Sodium 140 (135-145) mmol/L Potassium 4.3 (3.3-5.1) mmol/L Chloride 112 H (96-108) mmol/L Carbon Dioxide 20 L (22-29) mmol/L Anion Gap 12 (12-20) BUN 25 H (9-16) mg/dL Creatinine 1.58 H (0.5-1.4) mg/dL Estim Creat Clear Calc 40.0 Estimated GFR 34 Random Glucose 105 (60-115) mg/dL Calcium 8.5 D (8.4-10.2) mg/dL Magnesium 1.9 (1.6-2.6) mg/dL Total Bilirubin 0.3 (0.0-1.0) mg/dL Direct Bilirubin 0.1 (0.0-0.5) mg/dL AST 29 (5-31) U/L ALT 55 H (0-31) U/L Alkaline Phosphatase 151 H (39-117) U/L Total Protein 6.5 (6.5-8.0) g/dL Albumin 3.7 (3.5-5.0) g/dL Lipase 14 (8-78) U/L Beta HCG, Quant 3 mIU/mL Radiology Impression Discussion of test interpretation with radiology: I have reviewed the radiologist's reading. Radiologist Impression: CT abdomen and pelvis without contrast Comparison: US - US ABDOMEN LIMITED - 12/13/24 17:[address]/SR - CT ABDOMEN PELVIS W IV CON - 12/11/24 18:49 EDT Findings: No consolidation or effusion. The gallbladder is surgically absent. The solid organs are within normal limits. The left kidney is not visualized, presumed surgically absent. 7 mm obstructing calculus present at the right ureteropelvic junction with moderate right hydronephrosis. There is right perinephric fat stranding. No bowel obstruction, pneumoperitoneum, or pneumatosis. There are postsurgical changes compatible with gastric bypass. Postsurgical changes of the left abdominal wall present. The uterus is surgically absent. Minimal gas identified within the nondependent portion of the bladder lumen. No bladder wall thickening. Normal appendix. No acute fracture. Mild sclerosis present at the superior aspect of the right femoral head, suggesting sequela of avascular necrosis. IMPRESSION: 7 mm obstructing calculus present at the right ureteropelvic junction with moderate right hydronephrosis. Minimal gas identified within the nondependent portion of the bladder lumen. This may be iatrogenic in the setting of recent intervention/catheterization. Alternatively, infection may produce a similar appearance. Clinical correlation is advised. This document has been electronically signed by: Kingsley Cleveland MD on 02/20/2025 23:28:12 Prescription Management I considered prescription management with: Pain Medication and Antibiotic Chronic Conditions Patient?s care impacted by: Hypertension Discharge Plan Discharge Clinical Impression: Urinary tract obstruction by kidney stone, EHSAN (acute kidney injury) Patient Disposition: Admitted As Inpatient Print Language: Thai
[2025-02-21] VITALS (27 sets, daily range): BP systolic 78–144; BP diastolic 38–80; PULSE 64–101; RESP 7–18; TEMP 36.2–38.1; O2SAT 94–100; BMI 36.1
[2025-02-21 00:44] LABS: Appearance Urine Clear; Glucose Urine UA Negative (Negative); PH 5.5 (5.0-9.0); Specific Gravity - Urine 1.010 (1.005-1.025); UMIC TRIGGER UACC YES
[2025-02-21 01:21] LABS: UACC Culture Trigger YES
--- NOTE | 2025-02-21 02:53 | PM.IMHP ---
History of Present Illness Date of Service: 02/21/25 Chief Complaint: Flank pain 54-year-old female with a past medical history of hyperlipidemia, CKD, anxiety, depression, PTSD, avascular necrosis of the femoral head, GERD, history of left nephrectomy at the age of 18, overactive bladder, IBS, umbilical hernia status post repair, recurrent UTIs, arthralgia, MIGUEL, kidney stones, sacroiliitis, history of gastric bypass surgery, iron deficiency anemia, orthostatic hypotension, migraine headaches; presented to the hospital today with a chief complaint of right flank pain. Patient was started earlier in the morning she started having right flank pain which has been gradually worsening hence presented to the ER for further evaluation. Denies any dysuria or urgency. Denies any hematuria. Denies any chest pain or palpitations. Denies any fever chills cough or sputum production. Pain is similar to her prior episodes of kidney stones. Review of all other systems is negative except mentioned above ER course: Per ER team, patient noted to have right flank tenderness; CT scan showed 7 mm obstructing stone with the hydronephrosis. Urinalysis abnormal consistent with UTI. Urology was notified. [facility] Medical History Pure hypercholesterolemia Left breast mass Pulmonary nodules Chronic kidney disease, stage III (moderate) Obesity (BMI 30-39.9) Renal cyst Diverticulosis Tubular adenoma Asthma Spondylosis of lumbar spine Sacroiliitis Dizziness of unknown etiology Chronic constipation Hx of schizophrenia Panic attacks PTSD (post-traumatic stress disorder) Dyspareunia Pyelonephritis Ingrown toenail Iron deficiency anemia Major depression, recurrent Anxiety Insomnia Tremor Orthostatic hypotension Incisional hernia without obstruction or gangrene Avascular necrosis of femoral head Bilateral carpal tunnel syndrome Peroneal neuropathy Lumbar degenerative disc disease Vitamin D deficiency GERD (gastroesophageal reflux disease) Migraine Hyperlipidemia Family History Father Liver cancer Mother Breast cancer Sister Lung cancer Other Mental health problem Surgical History Hx of lithotripsy History of left nephrectomy (~1999) History of colonoscopy History of surgery Hx of cystoscopy History of bilateral breast reduction surgery History of hysterectomy History of cholecystectomy History of endoscopy (~06/2016) History of bladder repair surgery (~03/2015) S/P cystoscopy (~07/30/12) S/P panniculectomy History of hernia repair (~03/29/10) History of bladder surgery (~10/2009) History of gastric bypass (~2008) History of incisional hernia repair (~1999) Hx of umbilical hernia repair (~1999) S/P laparoscopic sleeve gastrectomy Social History Household Members: Spouse Housing: House Are you a primary children's zoo caretaker to a significant other at home: No Do you presently have visiting nurse or other home services: No Alcohol intake: never Patient Tobacco Use Status: Never used Tobacco Smoked in Last 30 Days: No e-Cigarette/Vaping Use: Never Used Second Hand Smoke Exposure: No Advance Directives: Yes Advance Directives on File: Yes Advance Directives Date on File: 07/12/21 Do you have a plan to hurt others: No Plan service: No Current occupational status: disabled Sexual orientation: Straight/Heterosexual Gender identity: Female Cognitive needs: No Hearing needs: No Vision needs: Yes Meds Allergies Allergy/AdvReac Type Severity Reaction Status Date / Time ibuprofen (From Motrin) Allergy Unknown Verified 02/20/25 21:25 acetaminophen AdvReac Intermediate Liver Verified 02/20/25 21:25 problems atorvastatin AdvReac Intermediate elevated Verified 02/20/25 21:25 LFTs rosuvastatin AdvReac Intermediate elevated Verified 02/20/25 21:25 LFTs Citalopram Analogues AdvReac Unknown Unknown Verified 02/20/25 21:25 prednisone AdvReac Unknown Unknown Verified 02/20/25 21:25 tramadol AdvReac Unknown Unknown Verified 02/13/25 11:16 Active Medications: Current Medications Acetaminophen (Acetaminophen 325 Mg Tablet) 650 mg PO Q6H PRN PRN Reason: Pain, Mild 1-3,fever,headache Calcium Carbonate (Calcium Carbonate 750 Mg Tab.Chew) 750 mg PO Q4H PRN PRN Reason: Heartburn Enoxaparin Sodium (Enoxaparin Sodium 40 Mg/0.4 Ml Syringe) 40 mg SUBCUT Q24H JYOTHI Last Admin: 02/21/25 01:38 Dose: 40 mg Hydromorphone HCl (Hydromorphone Hcl 0.5 Mg/0.5 Ml Syringe) 0.5 mg IVPUSH Q4H PRN; Protocol PRN Reason: Pain, Severe (Pain Scale 7-10) Last Admin: 02/21/25 01:49 Dose: 0.5 mg Dextrose/Sodium Chloride (D5ns) 1,000 mls @ 100 mls/hr IVCONT .Q10H JYOTHI Last Admin: 02/21/25 02:26 Dose: 100 mls/hr Magnesium Hydroxide (Milk Of Magnesia 30 Ml Oral.Susp) 30 ml PO DAILY PRN PRN Reason: Constipation Melatonin (Melatonin 3 Mg Tablet) 6 mg PO BEDTIME PRN PRN Reason: Insomnia Polyethylene Glycol (Polyethylene Glycol 3350 17 Gm Powd.Pack) 17 gm PO DAILY PRN PRN Reason: Constipation Sodium Chloride (0.9 % Sodium Chloride Flush 3 Ml Syringe) 3 ml IVFLUSH QSHIFT [facility] Home Medications ?Medication ?Instructions ?Recorded ?Confirmed ?Last Taken ?Type albuterol sulfate 90 mcg/actuation 2 puff inhalation Q6H PRN 02/11/25 Unknown History aerosol inhaler (Ventolin HFA) furosemide 20 mg tablet (Lasix) 20 mg PO DAILY 02/11/25 Unknown History Physical Exam Vital Signs and Narrative: Vital Signs: Last Vital Signs Temp 100.6 F H 02/21/25 00:29 Pulse 101 H 02/21/25 00:29 Resp 20 02/20/25 21:18 BP 107/62 02/21/25 00:29 Pulse Ox 94 02/21/25 00:29 O2 Del Method Room Air 02/21/25 00:29 BMI result Body Mass Index 33.3 Gen: Appears be in no acute distress HEENT: NCAT, Moist mucosa. Pulmonary: Vesicular breath sounds, fair air entry CVS: Normal S1-S2 Abdomen: BS+, Soft, tender in the left flank Extremities: Warm well perfused Neuro: Alert and awake. Results Labs 02/21/25 03:49 02/20/25 21:49 Labs: Laboratory Results - last 24 hr 02/20/25 02/21/25 02/21/25 21:49 00:16 02:01 MCV 100.5 H MCH 32.7 MCHC 32.5 RDW 12.2 Plt Count 224 MPV 10.3 Immature Gran % (Auto) 0.5 H Neut % (Auto) 79.7 H Lymph % (Auto) 13.3 L [place] % (Auto) 4.7 Eos % (Auto) 1.0 Baso % (Auto) 0.8 Lymph # (Auto) 1.7 [place] # (Auto) 0.6 Eos # (Auto) 0.1 Baso # (Auto) 0.1 Abs Immat Gran (auto) 0.06 H Absolute Neuts (auto) 10.4 H Absolute Nucleated RBC 0.000 Nucleated RBC % (auto) 0.0 Smear Tech's Comments VERIFIED Anion Gap 12 Estim Creat Clear Calc 40.0 Estimated GFR 34 Random Glucose 105 Lactic Acid 1.6 Calcium 8.5 D Magnesium 1.9 Total Bilirubin 0.3 Direct Bilirubin 0.1 AST 29 ALT 55 H Alkaline Phosphatase 151 H Total Protein 6.5 Albumin 3.7 Lipase 14 Beta HCG, Quant 3 Urine Color Yellow Urine Appearance Clear Urine pH 5.5 Ur Specific [place] 1.010 Urine Protein Negative Urine Glucose (UA) Negative Urine Ketones Negative Urine Blood Moderate (2+) H Urine Nitrite Negative Ur Leukocyte Esterase Moderate (2+) H Urine RBC 3-5 H Urine WBC 21-50 H Urine WBC Clumps Present Ur Squamous Epith Cells 0-2 Urine Bacteria 4+ Hyaline Casts 0-2 Urine Yeast Present Assessment and Plan (1) Abdominal pain: Qualifiers: Abdominal location: periumbilical Qualified Code(s): R10.33 - Periumbilical pain Status: Acute Plan 54-year-old female with a past medical history of hyperlipidemia, CKD, anxiety, depression, PTSD, avascular necrosis of the femoral head, GERD, history of left nephrectomy at the age of 18, overactive bladder, IBS, umbilical hernia status post repair, recurrent UTIs, arthralgia, MIGUEL, kidney stones, sacroiliitis, history of gastric bypass surgery, iron deficiency anemia, orthostatic hypotension, migraine headaches; presented to the hospital today with a chief complaint of right flank pain. Noted to have obstructing renal calculus. Right UVJ stone/moderate hydronephrosis: UTI: Urology was notified Continue ceftriaxone Pain control Follow-up cultures [place] catheter was placed in the ER. Mild EHSAN on CKD: HX left nephrectomy: Baseline creatinine around 1.3. Creatinine on presentation 1.58 Avoid nephrotoxins HX PE: Patient on Eliquis. For all other chronic conditions, home medications will be continued once med rec is completed in a.m.. DVT prophylaxis: Patient on Eliquis Code status: Full code Quality Stroke Does the patient have a stroke diagnosis?: No VTE Prior VTE?: No VTE Risk Level:: Medical - moderate - high VTE Device Contraindication: Treatment Not Indicated VTE Drug Contraindication: N/A - Med Ordered
[2025-02-21 04:15] LABS: MANUAL DIFF FLAG NO
[2025-02-21 04:22] LABS: Hematocrit 36.1 % (37.0-47.0); Hemoglobin 11.5 g/dl (12.0-16.0); Imm Gran Abs Auto 0.02 X10*3/uL (0.00-0.03); Imm Gran Pct Auto 0.3 % (0.0-0.4); Lymphocytes Absolute Auto 0.4 X10*3/uL (1.2-4.9); Mean Corpuscular HGB Conc 31.9 g/dl (31.0-35.0); Mean Corpuscular Hemoglobin 32.3 pg (27.0-33.0); Mean Corpuscular Volume 101.4 fL (80.0-98.0); NRBC Abs Auto 0.000 X10*3/uL (0.0-0.012); NRBC Pct Auto 0.0 /100WBC (0.0-0.2); Platelet Count 220 X10*3/uL (160-400); Red Blood Count 3.56 X10*6/uL (4.20-5.50); White Blood Count 6.7 X10*3/uL (4.8-10.8)
--- NOTE | 2025-02-21 09:12 | PC.NURSE ---
pt is very sleepy, took a few good shakes to wake the pt, pt started to answer some questions appropriately but other not so much, states she is in the [facility] [place] [facility], for the year stated that its 1970 which is her birthday, for the month reported July and the president is Anayeli, skin appropriate for ethnicity, respirations even and unlabored, is reporting right sided flank pain 9/10 with some nausea, bp is quite low 84/53, 93/58 which the pt has been running low all night-this rn tigered the Dr Yates about the BP awaiting a answer back, also reached to provider about the NPO order because there is not perimeters, PO medication is ordered but not sure if she can have it, also pt is reporting that she is scheduled with Alka Lazo for colonoscopy on Monday and is not supposed to be taking her eliquis
[2025-02-21 09:15] LABS: Glucose, Whole Blood 172 mg/dL (60-115)
--- NOTE | 2025-02-21 09:45 | PM.UROCN ---
History of Present Illness Consult details Consult date: 02/21/25 Narrative: 54-year-old female with a history of left nephrectomy at age 18, overactive bladder, IBS, umbilical hernia status post repair 3 months ago, PE, depression, recurrent UTIs, obesity, panniculitis, PTSD, arthralgias, lumbar radiculopathy, MIGUEL, kidney stones, hyperlipidemia, CKD stage 3, sacroiliitis, chronic constipation, gastric bypass in 2009, iron-deficiency anemia, anxiety, insomnia, orthostatic hypotension, GERD, and migraines, presenting to the ED for evaluation of right flank pain radiating to the right lower quadrant. Review of Systems Review of Systems: Yes all other systems are reviewed and are negative Constitutional: Constitutional: Reports no additional constitutional complaints Eyes: Eyes: Reports no additional eye complaints ENT: Reports system reviewed and no additional complaints, except as documented Cardiovascular: Cardiovascular: Reports no additional cardiovascular complaints Respiratory: Respiratory: Reports no additional respiratory complaints Gastrointestinal: Gastrointestinal: Reports no additional gastrointestinal complaints Genitourinary: Genitourinary: Reports as per HPI Musculoskeletal: Musculoskeletal: Reports no additional musculoskeletal complaints Integumentary/Breasts: Skin/Breast: Reports system reviewed and no additional complaints, except as docu Neurologic: Reports system reviewed and no additional complaints, except as documented Psychiatric: Psychiatric: Reports no additional psychiatric complaints Endocrine: Endocrine: Reports no additional endocrine complaints Hematologic/Lymphatic: Hematologic/Lymphatic: Reports no additional hematologic/lymphatic complaints Allergic/Immunologic: Allergic/Immunologic: Reports no additional allergic/immunologic complaints PMFSH Past Medical History Medical History Pure hypercholesterolemia Left breast mass Pulmonary nodules Chronic kidney disease, stage III (moderate) Obesity (BMI 30-39.9) Renal cyst Diverticulosis Tubular adenoma Asthma Spondylosis of lumbar spine Sacroiliitis Dizziness of unknown etiology Chronic constipation Hx of schizophrenia Panic attacks PTSD (post-traumatic stress disorder) Dyspareunia Pyelonephritis Ingrown toenail Iron deficiency anemia Major depression, recurrent Anxiety Insomnia Tremor Orthostatic hypotension Incisional hernia without obstruction or gangrene Avascular necrosis of femoral head Bilateral carpal tunnel syndrome Peroneal neuropathy Lumbar degenerative disc disease Vitamin D deficiency GERD (gastroesophageal reflux disease) Migraine Hyperlipidemia Family History Family History Father Liver cancer Mother Breast cancer Sister Lung cancer Other Mental health problem Surgical History Surgical History Hx of lithotripsy History of left nephrectomy (~1999) History of colonoscopy History of surgery Hx of cystoscopy History of bilateral breast reduction surgery History of hysterectomy History of cholecystectomy History of endoscopy (~06/2016) History of bladder repair surgery (~03/2015) S/P cystoscopy (~07/30/12) S/P panniculectomy History of hernia repair (~03/29/10) History of bladder surgery (~10/2009) History of gastric bypass (~2008) History of incisional hernia repair (~1999) Hx of umbilical hernia repair (~1999) S/P laparoscopic sleeve gastrectomy Social History Social History Household Members: Spouse Housing: Apartment Are you a primary wound care coordinator to a significant other at home: No Do you presently have visiting nurse or other home services: Yes Alcohol intake: never Patient Tobacco Use Status: Never used Tobacco Smoked in Last 30 Days: No e-Cigarette/Vaping Use: Never Used Second Hand Smoke Exposure: No Have you been hit, kicked, punched, or otherwise hurt by someone within the past year? If so, by whom?: No Do you feel safe in your current relationship?: Yes Is there a partner from a previous relationship who is making you feel unsafe now?: No Are you made to feel afraid or neglected: No Are you DNR?: No Advance Directives: Yes Advance Directives on File: Yes Advance Directives Date on File: 07/12/21 Do you have a plan to hurt others: No Plan Recently lost weight without trying: No Patient : No service: No Current occupational status: disabled Sexual orientation: Straight/Heterosexual Gender identity: Female Cognitive needs: No Hearing needs: No Vision needs: Yes Meds Allergies Allergy/AdvReac Type Severity Reaction Status Date / Time ibuprofen (From Motrin) Allergy Unknown Verified 02/20/25 21:25 acetaminophen AdvReac Intermediate Liver Verified 02/20/25 21:25 problems atorvastatin AdvReac Intermediate elevated Verified 02/20/25 21:25 LFTs rosuvastatin AdvReac Intermediate elevated Verified 02/20/25 21:25 LFTs Citalopram Analogues AdvReac Unknown Unknown Verified 02/20/25 21:25 prednisone AdvReac Unknown Unknown Verified 02/20/25 21:25 Active Medications: Current Medications Acetaminophen (Acetaminophen 325 Mg Tablet) 650 mg PO Q6H PRN PRN Reason: Pain, Mild 1-3,fever,headache Apixaban (Apixaban 5 Mg Tablet) 5 mg PO BID JYOTHI Calcium Carbonate (Calcium Carbonate 750 Mg Tab.Chew) 750 mg PO Q4H PRN PRN Reason: Heartburn Hydromorphone HCl (Hydromorphone Hcl 0.5 Mg/0.5 Ml Syringe) 0.5 mg IVPUSH Q4H PRN; Protocol PRN Reason: Pain, Severe (Pain Scale 7-10) Last Admin: 02/21/25 01:49 Dose: 0.5 mg Dextrose/Sodium Chloride (D5ns) 1,000 mls @ 100 mls/hr IVCONT .Q10H JYOTHI Last Admin: 02/21/25 02:26 Dose: 100 mls/hr Ceftriaxone Sodium 1 gm/ (Sodium Chloride) 50 mls @ 100 mls/hr IV Q24H JYOTHI Magnesium Hydroxide (Milk Of Magnesia 30 Ml Oral.Susp) 30 ml PO DAILY PRN PRN Reason: Constipation Melatonin (Melatonin 3 Mg Tablet) 6 mg PO BEDTIME PRN PRN Reason: Insomnia Polyethylene Glycol (Polyethylene Glycol 3350 17 Gm Powd.Pack) 17 gm PO DAILY PRN PRN Reason: Constipation Sodium Chloride (0.9 % Sodium Chloride Flush 3 Ml Syringe) 3 ml IVFLUSH QSHIFT [facility] Last Admin: 02/21/25 09:31 Dose: Not Given Home Medications ?Medication ?Instructions ?Recorded ?Confirmed ?Last Taken ?Type albuterol sulfate 90 mcg/actuation 2 puff inhalation Q6H PRN 02/11/25 02/21/25 Unknown History aerosol inhaler (Ventolin HFA) Shortness Of Breath Or Wheezing furosemide 20 mg tablet (Lasix) 20 mg PO DAILY PRN Edema 02/11/25 02/21/25 Unknown History cariprazine 4.5 mg capsule 4.5 mg PO DAILY 02/21/25 02/21/25 Unknown History (Vraylar) diphenhydramine HCl 25 mg capsule 50 mg PO BEDTIME 02/21/25 02/21/25 Unknown History lorazepam 1 mg tablet 1 mg PO TID severe Anxiety 02/21/25 02/21/25 Unknown History melatonin 5 mg tablet 10 mg PO BEDTIME Insomnia 02/21/25 02/21/25 Unknown History rizatriptan 10 mg disintegrating 10 mg PO ONCE PRN Migraine Headache 02/21/25 02/21/25 Unknown History tablet topiramate 25 mg tablet 25 mg PO DAILY 02/21/25 02/21/25 Unknown History verapamil 40 mg tablet 40 mg PO BID 02/21/25 02/21/25 Unknown History Physical Exam Vital Signs: Vital Signs: Last Vital Signs Temp 99.3 F 02/21/25 09:01 Pulse 77 02/21/25 09:01 Resp 18 02/21/25 09:01 BP 86/49 L 02/21/25 09:30 Pulse Ox 99 02/21/25 09:01 O2 Del Method Nasal Cannula 02/21/25 09:01 O2 Flow Rate 2 02/21/25 09:01 BMI result Body Mass Index 36.1 Const: General: cooperative, healthy appearing and no acute distress Orientation/consciousness: patient oriented x3 HEENT: Head: Yes normal to inspection, Yes normocephalic and Yes atraumatic Eyes: Conjunctivae: conjunctivae normal Neck: Neck: Yes normal visual inspection and Yes trachea midline Chest: Chest palpation & inspection: normal inspection of the chest Resp: Effort & Inspection: normal respiratory effort Cardio: Rate: regular rate GI: Inspection: Yes normal to inspection Neuro: General: patient oriented x3 Psych: Appearance: grossly normal Results Labs 02/21/25 03:49 02/20/25 21:49 Labs: Abnormal lab results 02/20/25 02/21/25 02/21/25 Range/Units 21:49 00:16 03:49 WBC 13.1 H (4.8-10.8) X10*3/uL RBC 4.04 L 3.56 L (4.20-5.50) X10*6/uL Hgb 11.5 L (12.0-16.0) g/dl Hct 36.1 L (37.0-47.0) % MCV 100.5 H 101.4 H (80.0-98.0) fL Immature Gran % (Auto) 0.5 H (0.0-0.4) % Neut % (Auto) 79.7 H 86.4 H (45-73) % Lymph % (Auto) 13.3 L 5.7 L (20-40) % Lymph # (Auto) 0.4 L (1.2-4.9) X10*3/uL Abs Immat Gran (auto) 0.06 H (0.00-0.03) X10*3/uL Absolute Neuts (auto) 10.4 H (2.0-8.3) x10*3/uL Chloride 112 H (96-108) mmol/L Carbon Dioxide 20 L (22-29) mmol/L BUN 25 H (9-16) mg/dL Creatinine 1.58 H (0.5-1.4) mg/dL POC Glucose (60-115) mg/dL ALT 55 H (0-31) U/L Alkaline Phosphatase 151 H (39-117) U/L Urine Blood Moderate (2+) H (Negative) Ur Leukocyte Esterase Moderate (2+) H (Negative) Urine RBC 3-5 H (0-2) /HPF Urine WBC 21-50 H (0-5) /HPF 02/21/25 Range/Units 09:09 WBC (4.8-10.8) X10*3/uL RBC (4.20-5.50) X10*6/uL Hgb (12.0-16.0) g/dl Hct (37.0-47.0) % MCV (80.0-98.0) fL Immature Gran % (Auto) (0.0-0.4) % Neut % (Auto) (45-73) % Lymph % (Auto) (20-40) % Lymph # (Auto) (1.2-4.9) X10*3/uL Abs Immat Gran (auto) (0.00-0.03) X10*3/uL Absolute Neuts (auto) (2.0-8.3) x10*3/uL Chloride (96-108) mmol/L Carbon Dioxide (22-29) mmol/L BUN (9-16) mg/dL Creatinine (0.5-1.4) mg/dL POC Glucose 172 H (60-115) mg/dL ALT (0-31) U/L Alkaline Phosphatase (39-117) U/L Urine Blood (Negative) Ur Leukocyte Esterase (Negative) Urine RBC (0-2) /HPF Urine WBC (0-5) /HPF Short CBC 02/20/25 02/21/25 Range/Units 21:49 03:49 WBC 13.1 H 6.7 (4.8-10.8) X10*3/uL Hgb 13.2 11.5 L (12.0-16.0) g/dl Hct 40.6 36.1 L (37.0-47.0) % Plt Count 224 220 (160-400) X10*3/uL BMP 02/20/25 21:49 Sodium 140 Potassium 4.3 Chloride 112 H Carbon Dioxide 20 L BUN 25 H Creatinine 1.58 H Calcium 8.5 D Liver Function 02/20/25 Range/Units 21:49 Total Bilirubin 0.3 (0.0-1.0) mg/dL Direct Bilirubin 0.1 (0.0-0.5) mg/dL AST 29 (5-31) U/L ALT 55 H (0-31) U/L Alkaline Phosphatase 151 H (39-117) U/L Albumin 3.7 (3.5-5.0) g/dL Urine 02/21/25 Range/Units 00:16 Urine Color Yellow Urine Appearance Clear Urine pH 5.5 (5.0-9.0) Ur Specific [place] 1.010 (1.005-1.025) Urine Protein Negative (Neg-Trace) mg/dL Urine Glucose (UA) Negative (Negative) mg/dL Imaging Abdomen CT scan report/results: report reviewed and image reviewed CT scan - pelvis: report reviewed and image reviewed Additional studies: Date of Service: 02/20/25 CLINICAL HISTORY: R flank pain; Tenderness CT abdomen and pelvis without contrast Comparison: US - US ABDOMEN LIMITED - 12/13/24 17:[address]/SR - CT ABDOMEN PELVIS W IV CON - 12/11/24 18:49 EDT Findings: No consolidation or effusion. The gallbladder is surgically absent. The solid organs are within normal limits. The left kidney is not visualized, presumed surgically absent. 7 mm obstructing calculus present at the right ureteropelvic junction with moderate right hydronephrosis. There is right perinephric fat stranding. No bowel obstruction, pneumoperitoneum, or pneumatosis. There are postsurgical changes compatible with gastric bypass. Postsurgical changes of the left abdominal wall present. The uterus is surgically absent. Minimal gas identified within the nondependent portion of the bladder lumen. No bladder wall thickening. Normal appendix. No acute fracture. Mild sclerosis present at the superior aspect of the right femoral head, suggesting sequela of avascular necrosis. IMPRESSION: 7 mm obstructing calculus present at the right ureteropelvic junction with moderate right hydronephrosis. Minimal gas identified within the nondependent portion of the bladder lumen. This may be iatrogenic in the setting of recent intervention/catheterization. Alternatively, infection may produce a similar appearance. Clinical correlation is advised. Assessment and Plan (1) Solitary kidney, acquired: Status: Acute (2) Hydronephrosis, right: Status: Acute (3) Chronic kidney disease, stage III (moderate): Qualifiers: Chronic kidney disease stage 3 subtype: stage 3a (GFR 45-59) Qualified Code(s): N18.31 - Chronic kidney disease, stage 3a Status: Acute (4) Ureteral stone: Status: Acute Plan keep NPO on add on sched for right ureteral stent Procedures Date of Service Date of Service: 02/21/25
[2025-02-21] MEDS: SODIUM CHLORIDE 2688 ML IV (09:54)
--- NOTE | 2025-02-21 10:34 | MHC.CM.PN ---
Addendum entered by Anaya Mcgrath 02/21/25 11:54: Patient should be active with [facility]. Referral will be made in [facility] so agency can follow for d/c needs. Original Note: Met with patient and daughter in regards to discharge planning. Patient's primary language is Finnish but is able to understand and speak some Lebanese. Patient declining tearoom host/hostess at this time. 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 Patient is not sure of VNA agency. PCP verified. Copy of HCP verified to be on file. Patient denies the need for any additional services at d/c. Patient's , Dane or family will transport patient home when medically stable. Continue to monitor for d/c needs.
--- NOTE | 2025-02-21 11:57 | MHC.CM.PN ---
Met with patient and daughter in regards to discharge planning. Patient's primary language is Welsh but is able to understand and speak some Lao. Patient declining manager community relations at this time. Patient lives with her , uses a walker for mobility, has BRASS BURNISHER hours, CPAP at home and [facility]. Her CM is Jazmin Kebede and can be reached via telephone at [phone]. Her RN is Makenna Caputo and can be reached via telephone at [phone]. PCP verified. Copy of HCP verified to be on file. Patient denies the need for any additional services at d/c. Patient's , Dane or family will transport patient home when medically stable. Continue to monitor for d/c needs.
--- NOTE | 2025-02-21 13:09 | PHA.MEDREC ---
Pharmacy Consult ? Medication Reconciliation Pharmacy has completed the medication reconciliation. Family brought in a medication list from home which we went over together. She is no longer taking eliquis, last taken 4 days ago, she is no longer taking pantoprazole, dicyclomine, or famotidine. She is not taking docusate or bisacodyl. Repatha was never started due to insurance. She is still taking vraylar. Furosemide is used as needed for edema. Lorazepam is scheduled TID. She only took medications for sleep yesterday.
--- NOTE | 2025-02-21 14:50 | P.PNIM_ITS ---
Subjective Subjective Date of Service: 02/21/25 Interval History: c/o R kidney pain BP chronically low from orthosatsis; on midodrine BCx positive for GNRs This history was taken in Sudanese from the patient. Review of Systems Review of Systems: Yes all other systems are reviewed and are negative Physical Exam 2 Vital Signs: Vital Signs: Last Vital Signs Temp 97.2 F 02/21/25 12:47 Pulse 67 02/21/25 12:47 Resp 18 02/21/25 13:04 BP 95/54 L 02/21/25 12:47 Pulse Ox 99 02/21/25 12:47 O2 Del Method Room Air 02/21/25 12:47 O2 Flow Rate 2 02/21/25 10:17 BMI result Body Mass Index 36.1 Gen: in no acute distress HEENT: sclera anicteric, moist mucus membranes Neck: supple Lungs: clear to auscultation bilaterally Heart: regular rate and rhythm, no murmurs Abd: soft, non-tender, non-distended : R CVA tenderness Ext: no edema Skin: warm/well-perfused Neuro: alert and oriented x3, no focal findings Psych: appropriate affect Objective Data Active Medications Apixaban (Apixaban 5 Mg Tablet) 5 mg PO BID [facility] Last Admin: 02/21/25 10:11 Dose: Not Given Documented By: AKSHAT Non-Admin Reason: pt states is not taking and going to surgery Calcium Carbonate (Calcium Carbonate 750 Mg Tab.Chew) 750 mg PO Q4H PRN PRN Reason: Heartburn Hydromorphone HCl (Hydromorphone Hcl 0.5 Mg/0.5 Ml Syringe) 0.5 mg IVPUSH Q4H PRN; Protocol PRN Reason: Pain, Severe (Pain Scale 7-10) Last Admin: 02/21/25 13:04 Dose: 0.5 mg Documented By: [place] Dextrose/Sodium Chloride (D5ns) 1,000 mls @ 100 mls/hr IVCONT .Q10H JYOTHI Last Admin: 02/21/25 12:23 Dose: 100 mls/hr Documented By: AKSHAT Ceftriaxone Sodium 2 gm/ (Sodium Chloride) 50 mls @ 100 mls/hr IV Q24H JYOTHI Magnesium Hydroxide (Milk Of Magnesia 30 Ml Oral.Susp) 30 ml PO DAILY PRN PRN Reason: Constipation Melatonin (Melatonin 3 Mg Tablet) 6 mg PO BEDTIME PRN PRN Reason: Insomnia Midodrine (Midodrine Hcl 10 Mg Tablet) 10 mg PO TIDWM [facility] Last Admin: 02/21/25 13:02 Dose: 10 mg Documented By: [place] Polyethylene Glycol (Polyethylene Glycol 3350 17 Gm Powd.Pack) 17 gm PO DAILY PRN PRN Reason: Constipation Sodium Chloride (0.9 % Sodium Chloride Flush 3 Ml Syringe) 3 ml IVFLUSH QSHIFT [facility] Last Admin: 02/21/25 09:31 Dose: Not Given Documented By: AKSHAT Non-Admin Reason: IV Running Labs 02/21/25 03:49 02/20/25 21:49 Labs: Laboratory Results - last 24 hr 02/20/25 02/21/25 02/21/25 21:49 00:16 02:01 MCV 100.5 H MCH 32.7 MCHC 32.5 RDW 12.2 Plt Count 224 MPV 10.3 Immature Gran % (Auto) 0.5 H Neut % (Auto) 79.7 H Lymph % (Auto) 13.3 L [place] % (Auto) 4.7 Eos % (Auto) 1.0 Baso % (Auto) 0.8 Lymph # (Auto) 1.7 [place] # (Auto) 0.6 Eos # (Auto) 0.1 Baso # (Auto) 0.1 Abs Immat Gran (auto) 0.06 H Absolute Neuts (auto) 10.4 H Absolute Nucleated RBC 0.000 Nucleated RBC % (auto) 0.0 Smear Tech's Comments VERIFIED Anion Gap 12 Estim Creat Clear Calc 40.0 Estimated GFR 34 POC Glucose Random Glucose 105 Lactic Acid 1.6 Calcium 8.5 D Magnesium 1.9 Total Bilirubin 0.3 Direct Bilirubin 0.1 AST 29 ALT 55 H Alkaline Phosphatase 151 H Total Protein 6.5 Albumin 3.7 Lipase 14 Beta HCG, Quant 3 Urine Color Yellow Urine Appearance Clear Urine pH 5.5 Ur Specific [place] 1.010 Urine Protein Negative Urine Glucose (UA) Negative Urine Ketones Negative Urine Blood Moderate (2+) H Urine Nitrite Negative Ur Leukocyte Esterase Moderate (2+) H Urine RBC 3-5 H Urine WBC 21-50 H Urine WBC Clumps Present Ur Squamous Epith Cells 0-2 Urine Bacteria 4+ Hyaline Casts 0-2 Urine Yeast Present 10/24/25 10/24/25 03:49 09:09 MCV 101.4 H MCH 32.3 MCHC 31.9 RDW 12.4 Plt Count 220 MPV 9.6 Immature Gran % (Auto) 0.3 Neut % (Auto) 86.4 H Lymph % (Auto) 5.7 L [place] % (Auto) 7.0 Eos % (Auto) 0.0 Baso % (Auto) 0.6 Lymph # (Auto) 0.4 L [place] # (Auto) 0.5 Eos # (Auto) 0.0 Baso # (Auto) 0.0 Abs Immat Gran (auto) 0.02 Absolute Neuts (auto) 5.8 Absolute Nucleated RBC 0.000 Nucleated RBC % (auto) 0.0 Smear Tech's Comments Anion Gap Estim Creat Clear Calc Estimated GFR POC Glucose 172 H Random Glucose Lactic Acid Calcium Magnesium Total Bilirubin Direct Bilirubin AST ALT Alkaline Phosphatase Total Protein Albumin Lipase Beta HCG, Quant Urine Color Urine Appearance Urine pH Ur Specific [place] Urine Protein Urine Glucose (UA) Urine Ketones Urine Blood Urine Nitrite Ur Leukocyte Esterase Urine RBC Urine WBC Urine WBC Clumps Ur Squamous Epith Cells Urine Bacteria Hyaline Casts Urine Yeast Microbiology Microbiology Results: Microbiology 02/21/25 01:27 Blood Culture - Preliminary Blood - Venous Prelim: GNR Gram Stain only 02/21/25 01:07 Blood Culture - Preliminary Blood - Venous Prelim: GNR Gram Stain only Assessment and Plan (1) Solitary kidney, acquired: Status: Acute Plan d1, 54yo F with solitary kidney, CKD3, mood disorder, AVN of femoral head, GERD, HLD, IBS, OAB, nephrolithiasis, gastric bypass surgery, orthostatic hypotension, migraines, and MILI; presenting with acute R flank pain and found to have obstructing renal calculus, complicated UTI, and bacteremia GNR bacteremia/complicated UTI - increase ceftriaxone to 2 g/d 02/21-, follow BCx/UCx obstructing R UV junction stone with hydronephrosis - NPO for stenting today with Urology EHSAN/CKD3 - hydration, stenting, recheck BMP in AM, pain control with IV hydromorphone orthostatic hypotension: midodrine migraines: verapamil, topiramate, triptan mood disorder: cariprazine, lorazepam OAB: solifenacin hx PE: apixaban VTE ppx: apixaban dispo: eventual home In my clinical judgment, the patient requires continued inpatient hospitalization for the following reasons: IV ABX, operative intervention Total time managing care of this patient today: 45 minutes. Quality Stroke Does the patient have a stroke diagnosis?: No VTE Prior VTE?: No VTE Risk Level:: Medical - moderate - high VTE Device Contraindication: Treatment Not Indicated VTE Drug Contraindication: N/A - Med Ordered
--- NOTE | 2025-02-21 14:51 | HO.ANESPROP2 ---
[facility] Active Problems Active Problems: All Active Problems (Updated 02/21/25 @ 09:46 by Mary Rocha MD) Ureteral stone (Acute) Hydronephrosis, right (Acute) EHSAN (acute kidney injury) (Acute) Urinary tract obstruction by kidney stone (Acute) Renal cyst, acquired (Acute) OAB (overactive bladder) (Acute) IBS (irritable bowel syndrome) (Acute) Abdominal pain (Acute) Umbilical mass (Acute) Periorbital cellulitis of right eye (Acute) Periodic limb movements of sleep (Acute) Fatigue due to sleep pattern disturbance (Acute) Edema (Acute) Incarcerated umbilical hernia (Acute) Pruritus (Acute) Encounter for well woman exam with routine gynecological exam (Acute) Umbilical hernia (Acute) Multiple thyroid nodules (Acute) Thyroid nodule (Acute) Abdominal wall pain in left flank (Acute) Pulmonary embolism (Chronic) Left-sided weakness (Acute) Shortness of breath (Acute) Cough (Acute) Chest pain (Acute) Depression with suicidal ideation (Acute) Ventral hernia (Acute) Flank hernia (Acute) Sacroiliac joint dysfunction of both sides (Acute) Abdominal pannus (Acute) Depression (Acute) Hypotension (Acute) Lower urinary tract symptoms (Acute) Complicated urinary tract infection (Acute) Osteoporosis screening (Acute) Paresthesia (Acute) Recurrent urinary tract infection (Acute) Solitary kidney, acquired (Acute) Orthostatic dizziness (Acute) Symptomatic abdominal panniculus (Acute) Panniculitis (Acute) Bilateral leg weakness (Acute) Obesity (Acute) Renal calculus, right (Acute) Excess skin (Acute) Urinary incontinence (Acute) Urinary frequency (Acute) MDD (major depressive disorder), recurrent, severe, with psychosis (Acute) Post traumatic stress disorder (PTSD) (Acute) Arthralgia (Acute) Knee pain, bilateral (Acute) Hip pain, bilateral (Acute) Bilateral elbow joint pain (Acute) Abdominal wall mass (Acute) Transaminitis (Acute) Renal cyst (Acute) Memory impairment (Acute) Left lumbar radiculopathy (Acute) Sacroiliac joint pain (Acute) Overweight (Acute) Colon cancer screening (Acute) Constipation (Acute) MIGUEL (obstructive sleep apnea) (Acute) Nephrolithiasis (Acute) Dyspareunia, female (Acute) Painful sexual intercourse (Acute) Skin laxity (Acute) Dysuria (Acute) Overweight (BMI 25.0-29.9) (Acute) Pure hypercholesterolemia (Acute) Left breast mass (Acute) Asthma (Acute) Pulmonary nodules (Acute) PTSD (post-traumatic stress disorder) (Acute) Chronic kidney disease, stage III (moderate) (Acute) Obesity (BMI 30-39.9) (Acute) Renal cyst (Acute) Diverticulosis (Acute) Tubular adenoma (Acute) Spondylosis of lumbar spine (Acute) Sacroiliitis (Acute) Dizziness of unknown etiology (Acute) Chronic constipation (Acute) History of gastric bypass (Acute ~2008) Dyspareunia (Acute) Pyelonephritis (Acute) Ingrown toenail (Acute) Iron deficiency anemia (Acute) Major depression, recurrent (Acute) Anxiety (Acute) Insomnia (Acute) Tremor (Acute) Orthostatic hypotension (Acute) Incisional hernia without obstruction or gangrene (Acute) Avascular necrosis of femoral head (Acute) Bilateral carpal tunnel syndrome (Acute) Peroneal neuropathy (Acute) Lumbar degenerative disc disease (Acute) Vitamin D deficiency (Acute) GERD (gastroesophageal reflux disease) (Acute) Migraine (Acute) Hyperlipidemia (Acute) Past Medical History Medical History Pure hypercholesterolemia Left breast mass Pulmonary nodules Chronic kidney disease, stage III (moderate) Obesity (BMI 30-39.9) Renal cyst Diverticulosis Tubular adenoma Asthma Spondylosis of lumbar spine Sacroiliitis Dizziness of unknown etiology Chronic constipation Hx of schizophrenia Panic attacks PTSD (post-traumatic stress disorder) Dyspareunia Pyelonephritis Ingrown toenail Iron deficiency anemia Major depression, recurrent Anxiety Insomnia Tremor Orthostatic hypotension Incisional hernia without obstruction or gangrene Avascular necrosis of femoral head Bilateral carpal tunnel syndrome Peroneal neuropathy Lumbar degenerative disc disease Vitamin D deficiency GERD (gastroesophageal reflux disease) Migraine Hyperlipidemia Family History Family History Father Liver cancer Mother Breast cancer Sister Lung cancer Other Mental health problem Family history of problems with anesthesia: No Surgical History Surgical History Hx of lithotripsy History of left nephrectomy (~1999) History of colonoscopy History of surgery Hx of cystoscopy History of bilateral breast reduction surgery History of hysterectomy History of cholecystectomy History of endoscopy (~06/2016) History of bladder repair surgery (~03/2015) S/P cystoscopy (~07/30/12) S/P panniculectomy History of hernia repair (~03/29/10) History of bladder surgery (~10/2009) History of gastric bypass (~2008) History of incisional hernia repair (~1999) Hx of umbilical hernia repair (~1999) S/P laparoscopic sleeve gastrectomy History of Problems with Anesthesia: No Social History Social History Household Members: Spouse Housing: Apartment Are you a primary wild animal caretaker to a significant other at home: No Do you presently have visiting nurse or other home services: Yes Alcohol intake: never Patient Tobacco Use Status: Never used Tobacco Smoked in Last 30 Days: No e-Cigarette/Vaping Use: Never Used Second Hand Smoke Exposure: No Have you been hit, kicked, punched, or otherwise hurt by someone within the past year? If so, by whom?: No Do you feel safe in your current relationship?: Yes Is there a partner from a previous relationship who is making you feel unsafe now?: No Are you made to feel afraid or neglected: No Advance Directives: Yes Advance Directives on File: Yes Advance Directives Date on File: 07/12/21 Do you have a plan to hurt others: No Plan Recently lost weight without trying: No Patient : No service: No Current occupational status: disabled Sexual orientation: Straight/Heterosexual Gender identity: Female Cognitive needs: No Hearing needs: No Vision needs: Yes Meds Allergies Allergy/AdvReac Type Severity Reaction Status Date / Time ibuprofen (From Motrin) Allergy Unknown Verified 02/20/25 21:25 acetaminophen AdvReac Intermediate Liver Verified 02/20/25 21:25 problems atorvastatin AdvReac Intermediate elevated Verified 02/20/25 21:25 LFTs rosuvastatin AdvReac Intermediate elevated Verified 02/20/25 21:25 LFTs Citalopram Analogues AdvReac Unknown Unknown Verified 02/20/25 21:25 prednisone AdvReac Unknown Unknown Verified 02/20/25 21:25 Active Medications: Current Medications Apixaban (Apixaban 5 Mg Tablet) 5 mg PO BID JYOTHI Last Admin: 02/21/25 10:11 Dose: Not Given Calcium Carbonate (Calcium Carbonate 750 Mg Tab.Chew) 750 mg PO Q4H PRN PRN Reason: Heartburn Hydromorphone HCl (Hydromorphone Hcl 0.5 Mg/0.5 Ml Syringe) 0.5 mg IVPUSH Q4H PRN; Protocol PRN Reason: Pain, Severe (Pain Scale 7-10) Last Admin: 02/21/25 13:04 Dose: 0.5 mg Dextrose/Sodium Chloride (D5ns) 1,000 mls @ 100 mls/hr IVCONT .Q10H JYOTHI Last Admin: 02/21/25 12:23 Dose: 100 mls/hr Ceftriaxone Sodium 2 gm/ (Sodium Chloride) 50 mls @ 100 mls/hr IV Q24H JYOTHI Magnesium Hydroxide (Milk Of Magnesia 30 Ml Oral.Susp) 30 ml PO DAILY PRN PRN Reason: Constipation Melatonin (Melatonin 3 Mg Tablet) 6 mg PO BEDTIME PRN PRN Reason: Insomnia Midodrine (Midodrine Hcl 10 Mg Tablet) 10 mg PO TIDWM [facility] Last Admin: 02/21/25 13:02 Dose: 10 mg Polyethylene Glycol (Polyethylene Glycol 3350 17 Gm Powd.Pack) 17 gm PO DAILY PRN PRN Reason: Constipation Sodium Chloride (0.9 % Sodium Chloride Flush 3 Ml Syringe) 3 ml IVFLUSH QSHIFT [facility] Last Admin: 02/21/25 09:31 Dose: Not Given Home Medications ?Medication ?Instructions ?Recorded ?Confirmed ?Last Taken ?Type albuterol sulfate 90 mcg/actuation 2 puff inhalation Q6H PRN 02/11/25 02/21/25 Unknown History aerosol inhaler (Ventolin HFA) Shortness Of Breath Or Wheezing furosemide 20 mg tablet (Lasix) 20 mg PO DAILY PRN Edema 02/11/25 02/21/25 Unknown History cariprazine 4.5 mg capsule 4.5 mg PO DAILY 02/21/25 02/21/25 Unknown History (Vraylar) diphenhydramine HCl 25 mg capsule 50 mg PO BEDTIME 02/21/25 02/21/25 Unknown History lorazepam 1 mg tablet 1 mg PO TID severe Anxiety 02/21/25 02/21/25 Unknown History melatonin 5 mg tablet 10 mg PO BEDTIME Insomnia 02/21/25 02/21/25 Unknown History rizatriptan 10 mg disintegrating 10 mg PO ONCE PRN Migraine Headache 02/21/25 02/21/25 Unknown History tablet topiramate 25 mg tablet 25 mg PO DAILY 02/21/25 02/21/25 Unknown History verapamil 40 mg tablet 40 mg PO BID 02/21/25 02/21/25 Unknown History Exam Height,Weight and Vital Signs: Height 5 ft 2 in Weight 89.6 kg Last Vital Signs Temp 97.2 F 02/21/25 12:47 Pulse 67 02/21/25 12:47 Resp 18 02/21/25 13:04 BP 95/54 L 02/21/25 12:47 Pulse Ox 99 02/21/25 12:47 O2 Del Method Room Air 02/21/25 12:47 O2 Flow Rate 2 02/21/25 10:17 Pertinent Lab Results Pertinent Lab Results: Laboratory Tests 02/20/25 02/21/25 02/21/25 21:49 00:16 02:01 WBC 13.1 H RBC 4.04 L Hgb 13.2 Hct 40.6 MCV 100.5 H MCH 32.7 MCHC 32.5 RDW 12.2 Plt Count 224 MPV 10.3 Immature Gran % (Auto) 0.5 H Neut % (Auto) 79.7 H Lymph % (Auto) 13.3 L [place] % (Auto) 4.7 Eos % (Auto) 1.0 Baso % (Auto) 0.8 Lymph # (Auto) 1.7 [place] # (Auto) 0.6 Eos # (Auto) 0.1 Baso # (Auto) 0.1 Abs Immat Gran (auto) 0.06 H Absolute Neuts (auto) 10.4 H Absolute Nucleated RBC 0.000 Nucleated RBC % (auto) 0.0 Smear Tech's Comments VERIFIED Sodium 140 Potassium 4.3 Chloride 112 H Carbon Dioxide 20 L Anion Gap 12 BUN 25 H Creatinine 1.58 H Estim Creat Clear Calc 40.0 Estimated GFR 34 POC Glucose Random Glucose 105 Lactic Acid 1.6 Calcium 8.5 D Magnesium 1.9 Total Bilirubin 0.3 Direct Bilirubin 0.1 AST 29 ALT 55 H Alkaline Phosphatase 151 H Total Protein 6.5 Albumin 3.7 Lipase 14 Beta HCG, Quant 3 Urine Color Yellow Urine Appearance Clear Urine pH 5.5 Ur Specific [place] 1.010 Urine Protein Negative Urine Glucose (UA) Negative Urine Ketones Negative Urine Blood Moderate (2+) H Urine Nitrite Negative Ur Leukocyte Esterase Moderate (2+) H Urine RBC 3-5 H Urine WBC 21-50 H Urine WBC Clumps Present Ur Squamous Epith Cells 0-2 Urine Bacteria 4+ Hyaline Casts 0-2 Urine Yeast Present 02/21/25 02/21/25 03:49 09:09 WBC 6.7 RBC 3.56 L Hgb 11.5 L Hct 36.1 L MCV 101.4 H MCH 32.3 MCHC 31.9 RDW 12.4 Plt Count 220 MPV 9.6 Immature Gran % (Auto) 0.3 Neut % (Auto) 86.4 H Lymph % (Auto) 5.7 L [place] % (Auto) 7.0 Eos % (Auto) 0.0 Baso % (Auto) 0.6 Lymph # (Auto) 0.4 L [place] # (Auto) 0.5 Eos # (Auto) 0.0 Baso # (Auto) 0.0 Abs Immat Gran (auto) 0.02 Absolute Neuts (auto) 5.8 Absolute Nucleated RBC 0.000 Nucleated RBC % (auto) 0.0 Smear Tech's Comments Sodium Potassium Chloride Carbon Dioxide Anion Gap BUN Creatinine Estim Creat Clear Calc Estimated GFR POC Glucose 172 H Random Glucose Lactic Acid Calcium Magnesium Total Bilirubin Direct Bilirubin AST ALT Alkaline Phosphatase Total Protein Albumin Lipase Beta HCG, Quant Urine Color Urine Appearance Urine pH Ur Specific [place] Urine Protein Urine Glucose (UA) Urine Ketones Urine Blood Urine Nitrite Ur Leukocyte Esterase Urine RBC Urine WBC Urine WBC Clumps Ur Squamous Epith Cells Urine Bacteria Hyaline Casts Urine Yeast Airway Mallampati Class: II TM Dist: >3cm Neck ROM: Full Loose/Missing/Broken Teeth: No Heart: RRR Lungs: CTA Assessment and Plan Assessment Anesthesia Assessment: Anesthesia Plan Discussed and Chart Reviewed Final Anesthetic Review Family History of Problems with Anesthesia: No History of Problems with Anesthesia: No NPO: No ASA Class: III Final Preanesthetic Review: Meds/Allgs Chart Reviewed, Consent Obtained/Reviewed and Anes Risks/Benef Reviewed Patient Risk: Intermediate Procedure Risk: Low Anesthetic Plan Anesthetic Plan: GA Disposition: Standard PACU
--- NOTE | 2025-02-21 17:07 | W.PM.OPN ---
Operative Note Operative Note Date of Service: 02/21/25 Narrative: PreOperative Diagnosis:?? Solitary right kidney, acquired, right hydronephrosis, obstructive uropathy secondary to UPJ stone Post Operative Diagnosis:?? ?Solitary right kidney, acquired, right hydronephrosis, obstructive uropathy secondary to UPJ stone Procedure: Cystoscopy, right retrograde right stent insertion, size 6f by 22-32 Surgeon:?Dr Mary Rocha Anesthesia:? General Procedure: After informed consent was verified the patient was brought to the operating placed on the OR table in supine position.? General Anesthesia was administered per protocol.? The patient was placed in lithotomy position, prepped and draped in the usual sterile fashion.? Safety pause time-out and side of surgery confirmed.? Antibiotics confirmed. A 22 [place] Island[place] cystoscope was inserted transurethrally. The bladder was visualized.? Both ureteric orifices were in normal position. The? right ureteric orifice was cannulated? a retrograde examination was performed, significant dilatation of the renal pelvis and calyces. A hydrophilic guidewire was placed up to the level of the renal pelvis under fluoroscopy. A 6 fr by 22-32 cm ureteral stent was passed over the guide wire under fluoroscopic guidance. The guide wire was removed. The bladder was emptied.? The rigid cystoscope was removed. ? The patient tolerated the procedure well and was brought to the recovery room in stable condition. Plan for outpatient right ESWL. Complications: None EBL: minimal (<5 mL) Drains: Ureteral stent as dictated above
[2025-02-21] MEDS: 0.9 % Sodium Chloride Flush 3 ML SYRINGE IVFLUSH (17:32)
[2025-02-22] VITALS (10 sets, daily range): BP systolic 114–158; BP diastolic 55–76; PULSE 64–88; RESP 16–18; TEMP 36.4–37.4; O2SAT 92–99
[2025-02-22 07:17] LABS: Hematocrit 34.2 % (37.0-47.0); Hemoglobin 11.1 g/dl (12.0-16.0); Mean Corpuscular HGB Conc 32.5 g/dl (31.0-35.0); Mean Corpuscular Hemoglobin 32.8 pg (27.0-33.0); Mean Corpuscular Volume 101.2 fL (80.0-98.0); NRBC Abs Auto 0.000 X10*3/uL (0.0-0.012); NRBC Pct Auto 0.0 /100WBC (0.0-0.2); Platelet Count 158 X10*3/uL (160-400); Red Blood Count 3.38 X10*6/uL (4.20-5.50); White Blood Count 11.9 X10*3/uL (4.8-10.8)
[2025-02-22 07:35] LABS: Anion Gap 12 (12-20); Blood Urea Nitrogen 22 mg/dL (9-16); Calcium 7.9 mg/dL (8.4-10.2); Carbon Dioxide 18 mmol/L (22-29); Chloride 116 mmol/L (96-108); Creatinine Clr Calc Pharmacy 32.2; Estimated Glomerular Filt Rate 25; Potassium 4.6 mmol/L (3.3-5.1); Sodium 141 mmol/L (135-145)
--- NOTE | 2025-02-22 09:13 | HO.POSTANES ---
Post Anesthesia Evaluation Post Anesthesia Evaluation Date of Service: 02/22/25 Vital Signs: Vital Signs Temp Pulse Resp BP Pulse Ox O2 Del Method 02/22/25 08:48 88 148/58 H 02/22/25 08:47 84 158/69 H 02/22/25 08:02 76 131/72 02/22/25 08:00 98.1 F 02/22/25 07:47 70 18 130/66 98 Room Air 02/22/25 03:15 99.3 F 78 18 143/66 H 99 Room Air 02/21/25 23:36 98.8 F 73 18 133/78 97 Room Air Anesthesia: General LMA Mental Status: Awake Pain Control: Satisfactory Nausea/Vomiting: None Hydration: Adequate Anesthesia-Related Issues: No Anes. Related Issues
[2025-02-22] MEDS: Lidocaine 4 % Patch ADH..PATCH 1 PATCH TRANSDERMA (09:44)
--- NOTE | 2025-02-22 11:02 | HO.PM.IMPN ---
Subjective Subjective Date of Service: 02/22/25 Interval History: This history was taken in [place] from the patient. Still c/o flank pain on R; also generalized itching SCr worse BCx positive for GNRs No fever Review of Systems Review of Systems: Yes all other systems are reviewed and are negative Physical Exam Vital Signs: Vital Signs: Last Vital Signs Temp 98.1 F 02/22/25 08:00 Pulse 88 02/22/25 08:48 Resp 18 02/22/25 07:47 BP 148/58 H 02/22/25 08:48 Pulse Ox 98 02/22/25 07:47 O2 Del Method Room Air 02/22/25 07:47 O2 Flow Rate 6 02/21/25 16:35 BMI result Body Mass Index 36.1 Gen: in no acute distress HEENT: sclera anicteric, moist mucus membranes Neck: supple Lungs: clear to auscultation bilaterally Heart: regular rate and rhythm, no murmurs Abd: soft, non-tender, non-distended : R CVA tenderness Ext: no edema Skin: warm/well-perfused Neuro: alert and oriented x3, no focal findings Psych: appropriate affect Objective Data Active Medications Albuterol Sulfate (Albuterol Sulfate 90 Mcg 8 Gm Inhaler) 2 puff INHALE Q6H PRN PRN Reason: Shortness Of Breath Or Wheezing Apixaban (Apixaban 5 Mg Tablet) 5 mg PO BID [facility] Last Admin: 02/22/25 09:34 Dose: Not Given Documented By: JESSICA Non-Admin Reason: Patient Refused Calcium Carbonate (Calcium Carbonate 750 Mg Tab.Chew) 750 mg PO Q4H PRN PRN Reason: Heartburn Cariprazine (Cariprazine Hcl 1.5 Mg Capsule) 4.5 mg PO DAILY [facility] Last Admin: 02/22/25 09:13 Dose: 4.5 mg Documented By: JESSICA Diphenhydramine HCl (Diphenhydramine Hcl 25 Mg Capsule) 50 mg PO BEDTIME [facility] Last Admin: 02/21/25 21:14 Dose: 50 mg Documented By: HAYES Diphenhydramine HCl (Diphenhydramine Hcl 50 Mg/Ml Vial) 25 mg IVPUSH Q4H PRN PRN Reason: Itching Gabapentin (Gabapentin 400 Mg Capsule) 800 mg PO TID [facility] Last Admin: 02/22/25 09:13 Dose: 800 mg Documented By: JESSICA Hydromorphone HCl (Hydromorphone Hcl 0.5 Mg/0.5 Ml Syringe) 0.5 mg IVPUSH Q4H PRN; Protocol PRN Reason: Pain, Severe (Pain Scale 7-10) Last Admin: 02/22/25 07:49 Dose: 0.5 mg Documented By: JESSICA Ceftriaxone Sodium 2 gm/ (Sodium Chloride) 50 mls @ 100 mls/hr IV Q24H [facility] Last Infusion: 02/22/25 00:03 Dose: Infused Documented By: HAYES Sodium Chloride (Ns) 1,000 mls @ 125 mls/hr IVCONT .Q8H [facility] Last Admin: 02/22/25 08:30 Dose: 125 mls/hr Documented By: JESSICA Lidocaine (Lidocaine 4 % Patch Adh..Patch) 1 patch TRANSDERMA DAILY [facility] Last Admin: 02/22/25 09:44 Dose: 1 patch Documented By: JESSICA Lorazepam (Lorazepam 1 Mg Tablet) 1 mg PO TID [facility] Last Admin: 02/22/25 09:13 Dose: 1 mg Documented By: JESSICA Magnesium Hydroxide (Milk Of Magnesia 30 Ml Oral.Susp) 30 ml PO DAILY PRN PRN Reason: Constipation Meclizine HCl (Meclizine Hcl 25 Mg Tablet) 25 mg PO TID PRN PRN Reason: dizziness Last Admin: 02/21/25 23:06 Dose: 25 mg Documented By: HAYES Melatonin (Melatonin 3 Mg Tablet) 6 mg PO BEDTIME PRN PRN Reason: Insomnia Midodrine (Midodrine Hcl 10 Mg Tablet) 10 mg PO TIDWM [facility] Last Admin: 02/22/25 07:55 Dose: Not Given Documented By: JESSICA Non-Admin Reason: BP 130/66, held per Naloxone HCl (Naloxone Hcl 0.4 Mg/Ml Vial) 0.04 mg IVPUSH Q5M PRN PRN Reason: Excessive sedation or RR < 8 Non-Formulary Medication (Hyoscyamine Sulfate) 0.125 mg PO BID PRN PRN Reason: abdominal discomfort Non-Formulary Medication (Rizatriptan) 10 mg PO ONCE PRN PRN Reason: Migraine Headache Non-Formulary Medication (Linaclotide [Linzess]) 290 mcg PO QAM [facility] Polyethylene Glycol (Polyethylene Glycol 3350 17 Gm Powd.Pack) 17 gm PO DAILY PRN PRN Reason: Constipation Sodium Chloride (0.9 % Sodium Chloride Flush 3 Ml Syringe) 3 ml IVFLUSH QSHIFT [facility] Last Admin: 02/22/25 07:14 Dose: Not Given Documented By: JESSICA Non-Admin Reason: IV Running Tolterodine Tartrate (Tolterodine Tartrate La 4 Mg Cap.Er.24h) 4 mg PO DAILY [facility] Last Admin: 02/22/25 09:13 Dose: 4 mg Documented By: JESSICA Topiramate (Topiramate 25 Mg Tablet) 25 mg PO DAILY [facility] Last Admin: 02/22/25 09:13 Dose: 25 mg Documented By: JESSICA Trazodone HCl (Trazodone Hcl 50 Mg Tablet) 50 mg PO BEDTIME PRN PRN Reason: Insomnia Verapamil HCl (Verapamil Hcl 40 Mg Tablet) 40 mg PO BID [facility]; Protocol Last Admin: 02/22/25 09:13 Dose: 40 mg Documented By: JESSICA Vitamin D (Cholecalciferol (Vitamin D3) 25 Mcg Tablet) 25 mcg PO DAILY [facility] Last Admin: 02/22/25 09:13 Dose: 25 mcg Documented By: JESSICA Labs 02/22/25 06:44 02/22/25 06:44 Labs: Laboratory Results - last 24 hr 02/22/25 06:44 MCV 101.2 H MCH 32.8 MCHC 32.5 RDW 12.9 Plt Count 158 L D MPV 10.1 Absolute Nucleated RBC 0.000 Nucleated RBC % (auto) 0.0 Anion Gap 12 Estim Creat Clear Calc 32.2 Estimated GFR 25 Random Glucose 100 Calcium 7.9 L D Microbiology Microbiology Results: Microbiology 02/21/25 01:27 Blood Culture - Preliminary Blood - Venous Gram negative koki 02/21/25 01:07 Blood Culture - Preliminary Blood - Venous Gram negative koki Assessment and Plan (1) Solitary kidney, acquired: Status: Acute Plan d2, 54yo F with solitary kidney, CKD3, mood disorder, AVN of femoral head, GERD, HLD, IBS, OAB, nephrolithiasis, gastric bypass surgery, orthostatic hypotension, migraines, and MILI; presenting with acute R flank pain and found to have obstructing renal calculus, complicated UTI, and bacteremia GNR bacteremia/complicated UTI - increased ceftriaxone to 2 g/d 02/21-, follow BCx/UCx obstructing R UV junction stone with hydronephrosis - s/p cystoscopy, right retrograde, right stent insertion by Dr Rocha 02/21; needs outpatient follow-up in 2-3 wk EHSAN/CKD3 likely postrenal obstruction but also could be some prerenal - continue IV hydration [increase NS to 125 mL/hr], will check urine lytes for FENa, check BMP again in AM and if not improved consult Nephrology orthostatic hypotension: midodrine migraines: verapamil, topiramate, rizatriptan mood disorder: cariprazine, lorazepam OAB: solifenacin hx PE: apixaban VTE ppx: apixaban dispo: eventual home In my clinical judgment, the patient requires continued inpatient hospitalization for the following reasons: IV ABX for bacteremia, EHSAN Total time managing care of this patient today: 45 minutes. Quality Stroke Does the patient have a stroke diagnosis?: No VTE Prior VTE?: No VTE Risk Level:: Medical - moderate - high VTE Device Contraindication: Treatment Not Indicated VTE Drug Contraindication: N/A - Med Ordered
[2025-02-23 03:39] VITALS: BP 136/79; PULSE 61; RESP 16; TEMP 36.4; O2SAT 95
[2025-02-23 06:20] LABS: Anion Gap 12 (12-20); Blood Urea Nitrogen 19 mg/dL (9-16); Calcium 8.3 mg/dL (8.4-10.2); Carbon Dioxide 19 mmol/L (22-29); Chloride 119 mmol/L (96-108); Creatinine Clr Calc Pharmacy 41.8; Estimated Glomerular Filt Rate 34; Potassium 3.9 mmol/L (3.3-5.1); Sodium 146 mmol/L (135-145)
[2025-02-23 06:54] LABS: Folate 10.2 ng/mL (> or = 4.0); Vitamin B12 985 pg/mL (200-900)
[2025-02-23 08:00] VITALS: BP 134/63; PULSE 79; RESP 16; TEMP 36.7; O2SAT 95
[2025-02-23] MEDS: Lidocaine 4 % Patch ADH..PATCH 1 PATCH TRANSDERMA (09:11)
[2025-02-23] MEDS: Albuterol Sulfate 90 MCG 8 GM INHALER 2 PUFF INHALE ×2 (11:42→22:03)
[2025-02-23 12:00] VITALS: BP 137/73; PULSE 63; RESP 18; TEMP 36.8; O2SAT 94
[2025-02-23] MEDS: oxyCODONE HCl Immed Release 5 MG TABLET 10 MG PO ×2 (14:02→22:02)
--- NOTE | 2025-02-23 14:16 | HO.PM.IMPN ---
Subjective Subjective Date of Service: 02/23/25 Interval History: No acute issues overnight. Utilize any Dilaudid as scheduled; states pain control initially good but wears off quickly Review of Systems Denies chest pain Denies shortness of breath Denies nausea vomiting diarrhea Denies fever chills Physical Exam Vital Signs: Vital Signs: Last Vital Signs Temp 98.3 F 02/23/25 12:00 Pulse 63 02/23/25 12:00 Resp 18 02/23/25 12:00 BP 137/73 02/23/25 12:00 Pulse Ox 94 02/23/25 12:00 O2 Del Method Room Air 02/23/25 12:00 O2 Flow Rate 6 02/21/25 16:35 BMI result Body Mass Index 36.1 Const: Other: Awake alert no acute distress Resp: Other: Clear to auscultation bilaterally no rales rhonchi or wheezes Cardio: Other: No S4; positive S1-S2; no S3 murmurs rubs or gallops GI: Other: Soft nontender nondistended normoactive bowel sounds Extrem: Other: No edema bilaterally Objective Data Active Medications Albuterol Sulfate (Albuterol Sulfate 90 Mcg 8 Gm Inhaler) 2 puff INHALE Q6H PRN PRN Reason: Shortness Of Breath Or Wheezing Last Admin: 02/23/25 11:42 Dose: 2 puff Documented By: JESSICA Apixaban (Apixaban 5 Mg Tablet) 5 mg PO BID [facility] Last Admin: 02/23/25 08:24 Dose: Not Given Documented By: JESSICA Non-Admin Reason: Patient Refused Calcium Carbonate (Calcium Carbonate 750 Mg Tab.Chew) 750 mg PO Q4H PRN PRN Reason: Heartburn Cariprazine (Cariprazine Hcl 1.5 Mg Capsule) 4.5 mg PO DAILY [facility] Last Admin: 02/23/25 09:11 Dose: 4.5 mg Documented By: JESSICA Diphenhydramine HCl (Diphenhydramine Hcl 25 Mg Capsule) 50 mg PO BEDTIME [facility] Last Admin: 02/22/25 20:27 Dose: 50 mg Documented By: HAYES Diphenhydramine HCl (Diphenhydramine Hcl 50 Mg/Ml Vial) 25 mg IVPUSH Q4H PRN PRN Reason: Itching Gabapentin (Gabapentin 400 Mg Capsule) 800 mg PO TID [facility] Last Admin: 02/23/25 09:11 Dose: 800 mg Documented By: JESSICA Hydromorphone HCl (Hydromorphone Hcl 0.5 Mg/0.5 Ml Syringe) 0.5 mg IVPUSH Q4H PRN; Protocol PRN Reason: Pain, Severe (Pain Scale 7-10) Last Admin: 02/22/25 20:58 Dose: 0.5 mg Documented By: HAYES Ceftriaxone Sodium 2 gm/ (Sodium Chloride) 50 mls @ 100 mls/hr IV Q24H [facility] Last Infusion: 02/22/25 23:28 Dose: Infused Documented By: HAYES Sodium Chloride (Ns) 1,000 mls @ 125 mls/hr IVCONT .Q8H [facility] Last Admin: 02/23/25 09:17 Dose: 125 mls/hr Documented By: JESSICA Lidocaine (Lidocaine 4 % Patch Adh..Patch) 1 patch TRANSDERMA DAILY [facility] Last Admin: 02/23/25 09:11 Dose: 1 patch Documented By: JESSICA Lorazepam (Lorazepam 1 Mg Tablet) 1 mg PO TID [facility] Last Admin: 02/23/25 09:11 Dose: 1 mg Documented By: JESSICA Magnesium Hydroxide (Milk Of Magnesia 30 Ml Oral.Susp) 30 ml PO DAILY PRN PRN Reason: Constipation Meclizine HCl (Meclizine Hcl 25 Mg Tablet) 25 mg PO TID PRN PRN Reason: dizziness Last Admin: 02/21/25 23:06 Dose: 25 mg Documented By: HAYES Melatonin (Melatonin 3 Mg Tablet) 6 mg PO BEDTIME PRN PRN Reason: Insomnia Midodrine (Midodrine Hcl 10 Mg Tablet) 10 mg PO TIDWM [facility] Last Admin: 02/23/25 12:32 Dose: Not Given Documented By: JESSICA Non-Admin Reason: BP 137/83 Naloxone HCl (Naloxone Hcl 0.4 Mg/Ml Vial) 0.04 mg IVPUSH Q5M PRN PRN Reason: Excessive sedation or RR < 8 Patient Own Medication ( Rizatriptan 10mg Tab ) 1 each PO DAILY PRN PRN Reason: Migraine Last Admin: 02/23/25 11:13 Dose: 1 each Documented By: JESISCA Comments: Administration approved by Dr Snow Oxycodone HCl (Oxycodone Hcl Immed Release 5 Mg Tablet) 10 mg PO Q4H PRN PRN Reason: Pain, Moderate(Pain Scale 4-6) Last Admin: 02/23/25 14:02 Dose: 10 mg Documented By: JESSICA Polyethylene Glycol (Polyethylene Glycol 3350 17 Gm Powd.Pack) 17 gm PO DAILY PRN PRN Reason: Constipation Sodium Chloride (0.9 % Sodium Chloride Flush 3 Ml Syringe) 3 ml IVFLUSH QSHIFT [facility] Last Admin: 02/23/25 07:46 Dose: Not Given Documented By: JESSICA Non-Admin Reason: IV Running Tolterodine Tartrate (Tolterodine Tartrate La 4 Mg Cap.Er.24h) 4 mg PO DAILY [facility] Last Admin: 02/23/25 09:11 Dose: 4 mg Documented By: JESSICA Topiramate (Topiramate 25 Mg Tablet) 25 mg PO DAILY [facility] Last Admin: 02/23/25 09:11 Dose: 25 mg Documented By: JESSICA Trazodone HCl (Trazodone Hcl 50 Mg Tablet) 50 mg PO BEDTIME PRN PRN Reason: Insomnia Verapamil HCl (Verapamil Hcl 40 Mg Tablet) 40 mg PO BID [facility]; Protocol Last Admin: 02/23/25 09:10 Dose: 40 mg Documented By: JESSICA Vitamin D (Cholecalciferol (Vitamin D3) 25 Mcg Tablet) 25 mcg PO DAILY [facility] Last Admin: 02/23/25 09:11 Dose: 25 mcg Documented By: JESSICA Labs 02/22/25 06:44 02/23/25 05:41 Labs: Laboratory Results - last 24 hr 02/23/25 05:41 Anion Gap 12 Estim Creat Clear Calc 41.8 Estimated GFR 34 Random Glucose 92 Calcium 8.3 L Vitamin B12 985 H Folate 10.2 Microbiology Microbiology Results: Microbiology 02/21/25 02:01 Urine Culture - Final Urine clean catch - Clean Catch Midstream Klebsiella pneumoniae 02/21/25 01:27 Blood Culture - Final Blood - Venous Klebsiella pneumoniae 02/21/25 01:07 Blood Culture - Final Blood - Venous Klebsiella pneumoniae Assessment and Plan (1) Bacteremia: Status: Acute (2) Chronic kidney disease, stage III (moderate): Status: Acute (3) Renal calculus, right: Status: Acute Plan d2, 54yo F with solitary kidney, CKD3, mood disorder, AVN of femoral head, GERD, HLD, IBS, OAB, nephrolithiasis, gastric bypass surgery, orthostatic hypotension, migraines, and MILI; presenting with acute R flank pain and found to have obstructing renal calculus, complicated UTI, and bacteremia 1.GNR bacteremia/complicated UTI -ceftriaxone to 2 g/d (3) -repeat blood cultures today -ID consult in a.m. 2.Obstructing R UV junction stone with hydronephrosis - s/p cystoscopy, right retrograde, right stent insertion by Dr Rocha 02/21 -outpatient follow up 4.EHSAN/CKD3 -returning to baseline -follow renals/divalent 5.Hx PE -01/2024 -continue Eliquis apixaban In my clinical judgment, the patient requires continued inpatient hospitalization for the following reasons: IV ABX for bacteremia, EHSAN... Specialty consultation Quality Stroke Does the patient have a stroke diagnosis?: No VTE Prior VTE?: No VTE Risk Level:: Medical - moderate - high VTE Device Contraindication: Treatment Not Indicated VTE Drug Contraindication: N/A - Med Ordered
[2025-02-23 16:00] VITALS: BP 160/76; PULSE 63; RESP 18; TEMP 36.7; O2SAT 96
[2025-02-23 20:00] VITALS: BP 142/73; PULSE 61; RESP 18; TEMP 36.1; O2SAT 99
[2025-02-23 22:04] VITALS: PULSE 88; RESP 16; O2SAT 94
[2025-02-24] VITALS (7 sets, daily range): BP systolic 114–151; BP diastolic 66–87; PULSE 66–78; RESP 14–18; TEMP 36–36.9; O2SAT 95–98
[2025-02-24] MEDS: oxyCODONE HCl Immed Release 5 MG TABLET 10 MG PO ×4 (03:48→20:39)
[2025-02-24 06:53] LABS: MANUAL DIFF FLAG NO
[2025-02-24 06:58] LABS: Hematocrit 33.8 % (37.0-47.0); Hemoglobin 10.9 g/dl (12.0-16.0); Imm Gran Abs Auto 0.02 X10*3/uL (0.00-0.03); Imm Gran Pct Auto 0.4 % (0.0-0.4); Lymphocytes Absolute Auto 1.3 X10*3/uL (1.2-4.9); Mean Corpuscular HGB Conc 32.2 g/dl (31.0-35.0); Mean Corpuscular Hemoglobin 32.7 pg (27.0-33.0); Mean Corpuscular Volume 101.5 fL (80.0-98.0); NRBC Abs Auto 0.000 X10*3/uL (0.0-0.012); NRBC Pct Auto 0.0 /100WBC (0.0-0.2); Platelet Count 213 X10*3/uL (160-400); Red Blood Count 3.33 X10*6/uL (4.20-5.50); White Blood Count 5.0 X10*3/uL (4.8-10.8)
[2025-02-24 07:21] LABS: Alanine Aminotransferase 731 U/L (0-31); Albumin Level 3.1 g/dL (3.5-5.0); Alkaline Phosphatase 211 U/L (39-117); Aspartate Amino Transferase 175 U/L (5-31); Blood Urea Nitrogen 13 mg/dL (9-16); Calcium 8.5 mg/dL (8.4-10.2); Creatinine Clr Calc Pharmacy 53.7; Estimated Glomerular Filt Rate 45; Total Protein 6.0 g/dL (6.5-8.0)
[2025-02-24 07:30] LABS: Anion Gap 12 (12-20); Carbon Dioxide 22 mmol/L (22-29); Chloride 114 mmol/L (96-108); Potassium 3.8 mmol/L (3.3-5.1); Sodium 144 mmol/L (135-145)
[2025-02-24] MEDS: Albuterol Sulfate 90 MCG 8 GM INHALER 2 PUFF INHALE (07:50)
[2025-02-24] MEDS: Lidocaine 4 % Patch ADH..PATCH 1 PATCH TRANSDERMA (07:54)
[2025-02-24] MEDS: 0.9 % Sodium Chloride Flush 3 ML SYRINGE IVFLUSH ×3 (08:00→20:39)
--- NOTE | 2025-02-24 14:13 | MHC.CM.PN ---
Patient not medically cleared for dc at this time. CM will continue to follow.
--- NOTE | 2025-02-24 15:42 | HO.PM.IMPN ---
Subjective Subjective Date of Service: 02/24/25 Interval History: Persistent right flank pain likely secondary to stent. Remains afebrile Review of Systems Denies chest pain Denies shortness of breath Denies nausea vomiting diarrhea Denies fever chills Physical Exam Vital Signs: Vital Signs: Last Vital Signs Temp 97.3 F 02/24/25 15:25 Pulse 77 02/24/25 15:25 Resp 18 02/24/25 15:25 BP 151/87 H 02/24/25 15:25 Pulse Ox 97 02/24/25 15:25 O2 Del Method Room Air 02/24/25 15:25 O2 Flow Rate 6 02/21/25 16:35 BMI result Body Mass Index 36.1 Const: Other: Awake alert no acute distress Resp: Other: Clear to auscultation bilaterally no rales rhonchi or wheezes Cardio: Other: No S4; positive S1-S2; no S3 murmurs rubs or gallops GI: Other: Soft nontender nondistended normoactive bowel sounds Extrem: Other: No edema bilaterally Objective Data Active Medications Albuterol Sulfate (Albuterol Sulfate 90 Mcg 8 Gm Inhaler) 2 puff INHALE Q6H PRN PRN Reason: Shortness Of Breath Or Wheezing Last Admin: 02/24/25 07:50 Dose: 2 puff Documented By: MAHOGANY Apixaban (Apixaban 5 Mg Tablet) 5 mg PO BID [facility] Last Admin: 02/24/25 07:52 Dose: Not Given Documented By: MAHOGANY Non-Admin Reason: Patient Refused Calcium Carbonate (Calcium Carbonate 750 Mg Tab.Chew) 750 mg PO Q4H PRN PRN Reason: Heartburn Cariprazine (Cariprazine Hcl 1.5 Mg Capsule) 4.5 mg PO DAILY [facility] Last Admin: 02/24/25 07:52 Dose: 4.5 mg Documented By: MAHOGANY Diphenhydramine HCl (Diphenhydramine Hcl 25 Mg Capsule) 50 mg PO BEDTIME [facility] Last Admin: 02/23/25 22:04 Dose: 50 mg Documented By: REAGAN Diphenhydramine HCl (Diphenhydramine Hcl 50 Mg/Ml Vial) 25 mg IVPUSH Q4H PRN PRN Reason: Itching Gabapentin (Gabapentin 400 Mg Capsule) 800 mg PO TID [facility] Last Admin: 02/24/25 14:25 Dose: 800 mg Documented By: MAHOGANY Hydromorphone HCl (Hydromorphone Hcl 0.5 Mg/0.5 Ml Syringe) 0.5 mg IVPUSH Q4H PRN; Protocol PRN Reason: Pain, Severe (Pain Scale 7-10) Last Admin: 02/22/25 20:58 Dose: 0.5 mg Documented By: HAYES Ceftriaxone Sodium 2 gm/ (Sodium Chloride) 50 mls @ 100 mls/hr IV Q24H [facility] Last Infusion: 02/23/25 22:41 Dose: Infused Documented By: REAGAN Lidocaine (Lidocaine 4 % Patch Adh..Patch) 1 patch TRANSDERMA DAILY [facility] Last Admin: 02/24/25 07:54 Dose: 1 patch Documented By: MAHOGANY Lorazepam (Lorazepam 1 Mg Tablet) 1 mg PO TID [facility] Last Admin: 02/24/25 14:25 Dose: 1 mg Documented By: MAHOGANY Magnesium Hydroxide (Milk Of Magnesia 30 Ml Oral.Susp) 30 ml PO DAILY PRN PRN Reason: Constipation Meclizine HCl (Meclizine Hcl 25 Mg Tablet) 25 mg PO TID PRN PRN Reason: dizziness Last Admin: 02/21/25 23:06 Dose: 25 mg Documented By: HAYES Melatonin (Melatonin 3 Mg Tablet) 6 mg PO BEDTIME PRN PRN Reason: Insomnia Naloxone HCl (Naloxone Hcl 0.4 Mg/Ml Vial) 0.04 mg IVPUSH Q5M PRN PRN Reason: Excessive sedation or RR < 8 Patient Own Medication ( Rizatriptan 10mg Tab ) 1 each PO DAILY PRN PRN Reason: Migraine Last Admin: 02/24/25 14:30 Dose: 1 each Documented By: MAHOGANY Oxycodone HCl (Oxycodone Hcl Immed Release 5 Mg Tablet) 10 mg PO Q4H PRN PRN Reason: Pain, Moderate(Pain Scale 4-6) Last Admin: 02/24/25 12:49 Dose: 10 mg Documented By: MAHOGANY Polyethylene Glycol (Polyethylene Glycol 3350 17 Gm Powd.Pack) 17 gm PO DAILY PRN PRN Reason: Constipation Sodium Chloride (0.9 % Sodium Chloride Flush 3 Ml Syringe) 3 ml IVFLUSH QSHIFT [facility] Last Admin: 02/24/25 14:35 Dose: 3 ml Documented By: MAHOGANY Tolterodine Tartrate (Tolterodine Tartrate La 4 Mg Cap.Er.24h) 4 mg PO DAILY [facility] Last Admin: 02/24/25 07:53 Dose: 4 mg Documented By: MAHOGANY Topiramate (Topiramate 25 Mg Tablet) 25 mg PO DAILY [facility] Last Admin: 02/24/25 07:50 Dose: 25 mg Documented By: MAHOGANY Trazodone HCl (Trazodone Hcl 50 Mg Tablet) 50 mg PO BEDTIME PRN PRN Reason: Insomnia Verapamil HCl (Verapamil Hcl 40 Mg Tablet) 40 mg PO BID [facility]; Protocol Last Admin: 02/24/25 07:53 Dose: 40 mg Documented By: MAHOGANY Vitamin D (Cholecalciferol (Vitamin D3) 25 Mcg Tablet) 25 mcg PO DAILY [facility] Last Admin: 02/24/25 07:53 Dose: 25 mcg Documented By: MAHOGANY Labs 02/24/25 05:56 02/24/25 05:56 Labs: Laboratory Results - last 24 hr 02/24/25 05:56 MCV 101.5 H MCH 32.7 MCHC 32.2 RDW 12.6 Plt Count 213 D MPV 10.4 Immature Gran % (Auto) 0.4 Neut % (Auto) 62.6 Lymph % (Auto) 25.3 Gulf % (Auto) 8.7 Eos % (Auto) 2.0 Baso % (Auto) 1.0 Lymph # (Auto) 1.3 [place] # (Auto) 0.4 Eos # (Auto) 0.1 Baso # (Auto) 0.1 Abs Immat Gran (auto) 0.02 Absolute Neuts (auto) 3.1 Absolute Nucleated RBC 0.000 Nucleated RBC % (auto) 0.0 Anion Gap 12 Estim Creat Clear Calc 53.7 Estimated GFR 45 Fasting Glucose 86 Calcium 8.5 Total Bilirubin 0.6 AST 175 H ALT 731 H Alkaline Phosphatase 211 H Total Protein 6.0 L Albumin 3.1 L Microbiology Microbiology Results: Microbiology 02/23/25 10:39 Blood Culture - Preliminary Blood - Venous No growth after 24 hours. 02/23/25 10:38 Blood Culture - Preliminary Blood - Venous No growth after 24 hours. Assessment and Plan (1) Complicated urinary tract infection: Status: Acute (2) EHSAN (acute kidney injury): Status: Acute Plan d2, 54yo F with solitary kidney, CKD3, mood disorder, AVN of femoral head, GERD, HLD, IBS, OAB, nephrolithiasis, gastric bypass surgery, orthostatic hypotension, migraines, and MILI; presenting with acute R flank pain and found to have obstructing renal calculus, complicated UTI, and bacteremia 1.GNR bacteremia/complicated UTI -ceftriaxone to 2 g/d (4) -repeat blood cultures negative times 24 hours -ID consult appreciated 2. Abnormal LFTs -likely related to ceftriaxone -check right upper quadrant ultrasound -we will switch to p.o. Ceftin and follow. If no improvement GI consult 2.Obstructing R UV junction stone with hydronephrosis - s/p cystoscopy, right retrograde, right stent insertion by Dr Rocha 02/21 -outpatient follow up 4.EHSAN/CKD3 -returning to baseline -follow renals/divalent 5.Hx PE -01/2024 -continue Eliquis apixaban In my clinical judgment, the patient requires continued inpatient hospitalization for the following reasons: IV ABX for bacteremia, EHSAN... Specialty consultation Quality Stroke Does the patient have a stroke diagnosis?: No VTE Prior VTE?: No VTE Risk Level:: Medical - moderate - high VTE Device Contraindication: Treatment Not Indicated VTE Drug Contraindication: N/A - Med Ordered
--- NOTE | 2025-02-24 16:39 | P.CNID_ITS ---
History of Present Illness Data of Consult Service Date: 02/24/25 Requesting physician: Mark Lea Primary Care Provider: Hung Montelongo MD HPI Reason for consult: Klebsiella bacteremia She was seen with clinical biochemist Sharmin. She presents with right flank pain and chills. She also has elevated LFTs She has Klebsiella pneumonia blood and urine. Review of Systems 2 Review of Systems: Yes all other systems are reviewed and are negative PMFSH Past Medical History Medical History Pure hypercholesterolemia Left breast mass Pulmonary nodules Chronic kidney disease, stage III (moderate) Obesity (BMI 30-39.9) Renal cyst Diverticulosis Tubular adenoma Asthma Spondylosis of lumbar spine Sacroiliitis Dizziness of unknown etiology Chronic constipation Hx of schizophrenia Panic attacks PTSD (post-traumatic stress disorder) Dyspareunia Pyelonephritis Ingrown toenail Iron deficiency anemia Major depression, recurrent Anxiety Insomnia Tremor Orthostatic hypotension Incisional hernia without obstruction or gangrene Avascular necrosis of femoral head Bilateral carpal tunnel syndrome Peroneal neuropathy Lumbar degenerative disc disease Vitamin D deficiency GERD (gastroesophageal reflux disease) Migraine Hyperlipidemia Family History Family History Father Liver cancer Mother Breast cancer Sister Lung cancer Other Mental health problem Family history: reviewed and not pertinent Surgical History Surgical History Hx of lithotripsy History of left nephrectomy (~1999) History of colonoscopy History of surgery Hx of cystoscopy History of bilateral breast reduction surgery History of hysterectomy History of cholecystectomy History of endoscopy (~06/2016) History of bladder repair surgery (~03/2015) S/P cystoscopy (~07/30/12) S/P panniculectomy History of hernia repair (~03/29/10) History of bladder surgery (~10/2009) History of gastric bypass (~2008) History of incisional hernia repair (~1999) Hx of umbilical hernia repair (~1999) S/P laparoscopic sleeve gastrectomy Social History Social History Household Members: Spouse Housing: Apartment Are you a primary care nurse rn to a significant other at home: No Do you presently have visiting nurse or other home services: Yes Alcohol intake: never Patient Tobacco Use Status: Never used Tobacco e-Cigarette/Vaping Use: Never Used Second Hand Smoke Exposure: No Advance Directives Date on File: 07/12/21 service: No Current occupational status: disabled Sexual orientation: Straight/Heterosexual Gender identity: Female Cognitive needs: No Hearing needs: No Vision needs: Yes Meds Allergies Allergy/AdvReac Type Severity Reaction Status Date / Time ibuprofen (From Motrin) Allergy Unknown Verified 02/20/25 21:25 acetaminophen AdvReac Intermediate Liver Verified 02/20/25 21:25 problems atorvastatin AdvReac Intermediate elevated Verified 02/20/25 21:25 LFTs rosuvastatin AdvReac Intermediate elevated Verified 02/20/25 21: LFTs Citalopram Analogues AdvReac Unknown Unknown Verified 02/20/25 21:25 prednisone AdvReac Unknown Unknown Verified 02/20/25 21:25 Active Medications: Current Medications Albuterol Sulfate (Albuterol Sulfate 90 Mcg 8 Gm Inhaler) 2 puff INHALE Q6H PRN PRN Reason: Shortness Of Breath Or Wheezing Last Admin: 02/24/25 07:50 Dose: 2 puff Apixaban (Apixaban 5 Mg Tablet) 5 mg PO BID [facility] Last Admin: 02/24/25 07:52 Dose: Not Given Calcium Carbonate (Calcium Carbonate 750 Mg Tab.Chew) 750 mg PO Q4H PRN PRN Reason: Heartburn Cariprazine (Cariprazine Hcl 1.5 Mg Capsule) 4.5 mg PO DAILY [facility] Last Admin: 02/24/25 07:52 Dose: 4.5 mg Diphenhydramine HCl (Diphenhydramine Hcl 25 Mg Capsule) 50 mg PO BEDTIME [facility] Last Admin: 02/23/25 22:04 Dose: 50 mg Diphenhydramine HCl (Diphenhydramine Hcl 50 Mg/Ml Vial) 25 mg IVPUSH Q4H PRN PRN Reason: Itching Gabapentin (Gabapentin 400 Mg Capsule) 800 mg PO TID [facility] Last Admin: 02/24/25 14:25 Dose: 800 mg Hydromorphone HCl (Hydromorphone Hcl 0.5 Mg/0.5 Ml Syringe) 0.5 mg IVPUSH Q4H PRN; Protocol PRN Reason: Pain, Severe (Pain Scale 7-10) Last Admin: 02/22/25 20:58 Dose: 0.5 mg Ceftriaxone Sodium 2 gm/ (Sodium Chloride) 50 mls @ 100 mls/hr IV Q24H [facility] Last Infusion: 02/23/25 22:41 Dose: Infused Lidocaine (Lidocaine 4 % Patch Adh..Patch) 1 patch TRANSDERMA DAILY [facility] Last Admin: 02/24/25 07:54 Dose: 1 patch Lorazepam (Lorazepam 1 Mg Tablet) 1 mg PO TID [facility] Last Admin: 02/24/25 14:25 Dose: 1 mg Magnesium Hydroxide (Milk Of Magnesia 30 Ml Oral.Susp) 30 ml PO DAILY PRN PRN Reason: Constipation Meclizine HCl (Meclizine Hcl 25 Mg Tablet) 25 mg PO TID PRN PRN Reason: dizziness Last Admin: 02/21/25 23:06 Dose: 25 mg Melatonin (Melatonin 3 Mg Tablet) 6 mg PO BEDTIME PRN PRN Reason: Insomnia Naloxone HCl (Naloxone Hcl 0.4 Mg/Ml Vial) 0.04 mg IVPUSH Q5M PRN PRN Reason: Excessive sedation or RR < 8 Patient Own Medication ( Rizatriptan 10mg Tab ) 1 each PO DAILY PRN PRN Reason: Migraine Last Admin: 02/24/25 14:30 Dose: 1 each Oxycodone HCl (Oxycodone Hcl Immed Release 5 Mg Tablet) 10 mg PO Q4H PRN PRN Reason: Pain, Moderate(Pain Scale 4-6) Last Admin: 02/24/25 12:49 Dose: 10 mg Polyethylene Glycol (Polyethylene Glycol 3350 17 Gm Powd.Pack) 17 gm PO DAILY PRN PRN Reason: Constipation Sodium Chloride (0.9 % Sodium Chloride Flush 3 Ml Syringe) 3 ml IVFLUSH QSHIFT [facility] Last Admin: 02/24/25 14:35 Dose: 3 ml Tolterodine Tartrate (Tolterodine Tartrate La 4 Mg Cap.Er.24h) 4 mg PO DAILY [facility] Last Admin: 02/24/25 07:53 Dose: 4 mg Topiramate (Topiramate 25 Mg Tablet) 25 mg PO DAILY [facility] Last Admin: 02/24/25 07:50 Dose: 25 mg Trazodone HCl (Trazodone Hcl 50 Mg Tablet) 50 mg PO BEDTIME PRN PRN Reason: Insomnia Verapamil HCl (Verapamil Hcl 40 Mg Tablet) 40 mg PO BID [facility]; Protocol Last Admin: 02/24/25 07:53 Dose: 40 mg Vitamin D (Cholecalciferol (Vitamin D3) 25 Mcg Tablet) 25 mcg PO DAILY [facility] Last Admin: 02/24/25 07:53 Dose: 25 mcg Home Medications ?Medication ?Instructions ?Recorded ?Confirmed ?Last Taken ?Type albuterol sulfate 90 mcg/actuation 2 puff inhalation Q 6H PRN 02/11/25 02/21/25 Unknown History aerosol inhaler (Ventolin HFA) Shortness Of Breath Or Wheezing furosemide 20 mg tablet (Lasix) 20 mg PO DAILY PRN Ej ma 02/11/25 02/21/25 Unknown History cariprazine 4.5 mg capsule 4.5 mg PO DAILY 02/21/25 Unknown History (Vraylar) diphenhydramine HCl 25 mg capsule 50 mg PO BEDTIME 02/21/25 Unknown History lorazepam 1 mg tablet 1 mg PO TID severe Anxiety 1 02/21/25 Unknown History melatonin 5 mg tablet 10 mg PO BEDTIME Insomnia 02/21/25 Unknown History rizatriptan 10 mg disintegrating 10 mg PO ONCE PRN Lorenzo enmanuel Headache 02/21/25 02/21/25 Unknown History tablet topiramate 25 mg tablet 25 mg PO DAILY 02/21/2501/30 Unknown History verapamil 40 mg tablet 40 mg PO BID 02/21/25 Unknown History Physical Exam 2 Vital Signs: Vital Signs: Last Vital Signs Temp 97.3 F 02/24/25 15:25 Pulse 77 02/24/25 15:25 Resp 18 02/24/25 15:25 BP 151/87 H 02/24/25 15:25 Pulse Ox 97 02/24/25 15:25 O2 Del Method Room Air 02/24/25 15:25 O2 Flow Rate 6 02/21/25 16:35 BMI result Body Mass Index 36.1 Const: General: cooperative HEENT: Head: Yes normal to inspection Face and sinus: Yes normal facial exam Mouth: Normal oral and palatal mucosa present Teeth and gingiva: d entition normal Eyes: General: appearance normal, both eyes and all related structures P upils: Equal, round and reactive pupils present Resp: Effort & Inspection: normal respiratory effort Cardio: Rate: regular rate Rhythm: regular rhythm GI: Palpation (GI): Soft to palpation and nontender : Other: right flank pain General: Yes no CVA tenderness Back/Spine/Pelvis: Back: no CVA tenderness Skin: General skin exam: no rashes or lesions noted Neuro: General: moves all extremities Cranial nerves: Yes Equal, round and reactive pupils present Extrem: General: Yes normal to inspection Psych: Appearance: grossly normal Results Labs 02/24/25 05:56 02/24/25 05:56 Labs: Short CBC 02/24/25 Range/Units 05:56 WBC 5.0 (4.8-10.8) X10*3/uL Hgb 10.9 L (12.0-16.0) g/dl Hct 33.8 L (37.0-47.0) % Plt Count 213 D (160-400) X10*3/uL BMP 02/24/25 05:56 Sodium 144 Potassium 3.8 Chloride 114 H Carbon Dioxide 22 BUN 13 Creatinine 1.23 Calcium 8.5 Liver Function 02/24/25 Range/Units 05:56 Total Bilirubin 0.6 (0.0-1.0) mg/dL AST 175 H (5-31) U/L ALT 731 H (0-31) U/L Alkaline Phosphatase 211 H (39-117) U/L Albumin 3.1 L (3.5-5.0) g/dL Microbiology Microbiology Results: Microbiology 02/23/25 10:39 Blood - Venous Blood Culture - Preliminary No growth after 24 hours. 02/23/25 10:38 Blood - Venous Blood Culture - Preliminary No growth after 24 hours. 02/21/25 02:01 Urine clean catch - Clean Catch Midstream Urine Culture - Final Klebsiella pneumoniae 02/21/25 01:27 Blood - Venous Blood Culture - Final Klebsiella pneumoniae 02/21/25 01:07 Blood - Venous Blood Culture - Final Klebsiella pneumoniae Assessment and Plan (1) EHSAN (acute kidney injury): Status: Acute Plan Cover urine and blood culture with cephalosporin, 14 days total antibiotic including oral cephalosporin.
[2025-02-25] VITALS (9 sets, daily range): BP systolic 109–133; BP diastolic 58–72; PULSE 64–97; RESP 12–20; TEMP 36.1–37.2; O2SAT 92–99
[2025-02-25] MEDS: oxyCODONE HCl Immed Release 5 MG TABLET 10 MG PO ×4 (01:05→20:12)
[2025-02-25 07:07] LABS: Hematocrit 33.3 % (37.0-47.0); Hemoglobin 10.7 g/dl (12.0-16.0); Imm Gran Abs Auto 0.01 X10*3/uL (0.00-0.03); Imm Gran Pct Auto 0.2 % (0.0-0.4); Lymphocytes Absolute Auto 1.8 X10*3/uL (1.2-4.9); MANUAL DIFF FLAG SCAN; Mean Corpuscular HGB Conc 32.1 g/dl (31.0-35.0); Mean Corpuscular Hemoglobin 32.3 pg (27.0-33.0); Mean Corpuscular Volume 100.6 fL (80.0-98.0); NRBC Abs Auto 0.000 X10*3/uL (0.0-0.012); NRBC Pct Auto 0.0 /100WBC (0.0-0.2); PLT CLUMP 1; Red Blood Count 3.31 X10*6/uL (4.20-5.50); SCAN SMEAR FLAG 1
[2025-02-25 07:21] LABS: Alanine Aminotransferase 512 U/L (0-31); Albumin Level 3.1 g/dL (3.5-5.0); Alkaline Phosphatase 201 U/L (39-117); Anion Gap 11 (12-20); Aspartate Amino Transferase 77 U/L (5-31); Blood Urea Nitrogen 14 mg/dL (9-16); Calcium 8.1 mg/dL (8.4-10.2); Carbon Dioxide 26 mmol/L (22-29); Chloride 113 mmol/L (96-108); Creatinine Clr Calc Pharmacy 56.0; Estimated Glomerular Filt Rate 48; Potassium 4.0 mmol/L (3.3-5.1); Sodium 146 mmol/L (135-145); Total Protein 6.0 g/dL (6.5-8.0)
[2025-02-25 07:38] LABS: Platelet Count 179 X10*3/uL (160-400); White Blood Count 5.2 X10*3/uL (4.8-10.8)
[2025-02-25] MEDS: 0.9 % Sodium Chloride Flush 3 ML SYRINGE IVFLUSH ×3 (07:48→20:19)
[2025-02-25] MEDS: Lidocaine 4 % Patch ADH..PATCH 1 PATCH TRANSDERMA (07:55)
--- NOTE | 2025-02-25 13:34 | PC.NURSE ---
Pt got up with daughter to take a shower, pt began to feel dizzy. With the assistance of this RN pt began to walk back to bed with walker, Pt had to stop and sit on the commode due to dizziness. Vitals were obtained: BP 125/[address] Lea came to the bedside. Pt returned to bed with safety measures in place, pt and family educated on importance of ringing before getting up. No new orders at this time.
--- NOTE | 2025-02-25 14:59 | P.PNIM_ITS ---
Subjective Subjective Date of Service: 02/25/25 Interval History: More comfortable today. LFTs trending down Review of Systems Denies chest pain Denies shortness of breath Denies nausea vomiting diarrhea Denies fever chills Physical Exam 2 Vital Signs: Vital Signs: Last Vital Signs Temp 97.0 F 02/25/25 11:09 Pulse 97 02/25/25 13:32 Resp 16 02/25/25 11:09 BP 125/58 L 02/25/25 13:32 Pulse Ox 99 02/25/25 13:32 O2 Del Method Room Air 02/25/25 13:32 O2 Flow Rate 2 02/25/25 03:10 BMI result Body Mass Index 36.1 Const: Other: Awake alert no acute distress Resp: Other: Clear to auscultation bilaterally no rales rhonchi or wheezes Cardio: Other: No S4; positive S1-S2; no S3 murmurs rubs or gallops GI: Other: Soft nontender nondistended normoactive bowel sounds Extrem: Other: No edema bilaterally Objective Data Active Medications Albuterol Sulfate (Albuterol Sulfate 90 Mcg 8 Gm Inhaler) 2 puff INHALE Q6H PRN PRN Reason: Shortness Of Breath Or Wheezing Last Admin: 02/24/25 07:50 Dose: 2 puff Documented By: MAHOGANY Apixaban (Apixaban 5 Mg Tablet) 5 mg PO BID [facility] Last Admin: 02/25/25 07:47 Dose: 5 mg Documented By: JOSE Calcium Carbonate (Calcium Carbonate 750 Mg Tab.Chew) 750 mg PO Q4H PRN PRN Reason: Heartburn Cariprazine (Cariprazine Hcl 1.5 Mg Capsule) 4.5 mg PO DAILY [facility] Last Admin: 02/25/25 07:48 Dose: 4.5 mg Documented By: JOSE Cefuroxime Axetil (Cefuroxime Axetil 500 Mg Tablet) 500 mg PO Q12H [facility] Last Admin: 02/25/25 09:43 Dose: 500 mg Documented By: JOSE Diphenhydramine HCl (Diphenhydramine Hcl 25 Mg Capsule) 50 mg PO BEDTIME [facility] Last Admin: 02/24/25 20:39 Dose: 50 mg Documented By: ADRIANA Diphenhydramine HCl (Diphenhydramine Hcl 50 Mg/Ml Vial) 25 mg IVPUSH Q4H PRN PRN Reason: Itching Gabapentin (Gabapentin 400 Mg Capsule) 800 mg PO TID [facility] Last Admin: 02/25/25 14:25 Dose: 800 mg Documented By: JOSE Hydromorphone HCl (Hydromorphone Hcl 0.5 Mg/0.5 Ml Syringe) 0.5 mg IVPUSH Q4H PRN; Protocol PRN Reason: Pain, Severe (Pain Scale 7-10) Last Admin: 02/22/25 20:58 Dose: 0.5 mg Documented By: HAYES Lidocaine (Lidocaine 4 % Patch Adh..Patch) 1 patch TRANSDERMA DAILY [facility] Last Admin: 02/25/25 07:55 Dose: 1 patch Documented By: JOSE Lorazepam (Lorazepam 1 Mg Tablet) 1 mg PO TID [facility] Last Admin: 02/25/25 14:25 Dose: 1 mg Documented By: JOSE Magnesium Hydroxide (Milk Of Magnesia 30 Ml Oral.Susp) 30 ml PO DAILY PRN PRN Reason: Constipation Meclizine HCl (Meclizine Hcl 25 Mg Tablet) 25 mg PO TID PRN PRN Reason: dizziness Last Admin: 02/21/25 23:06 Dose: 25 mg Documented By: HAYES Melatonin (Melatonin 3 Mg Tablet) 6 mg PO BEDTIME PRN PRN Reason: Insomnia Naloxone HCl (Naloxone Hcl 0.4 Mg/Ml Vial) 0.04 mg IVPUSH Q5M PRN PRN Reason: Excessive sedation or RR < 8 Patient Own Medication ( Rizatriptan 10mg Tab ) 1 each PO DAILY PRN PRN Reason: Migraine Last Admin: 02/24/25 14:30 Dose: 1 each Documented By: MAHOGANY Oxycodone HCl (Oxycodone Hcl Immed Release 5 Mg Tablet) 10 mg PO Q4H PRN PRN Reason: Pain, Moderate(Pain Scale 4-6) Last Admin: 02/25/25 13:06 Dose: 10 mg Documented By: JOSE Polyethylene Glycol (Polyethylene Glycol 3350 17 Gm Powd.Pack) 17 gm PO DAILY PRN PRN Reason: Constipation Sodium Chloride (0.9 % Sodium Chloride Flush 3 Ml Syringe) 3 ml IVFLUSH QSHIFT [facility] Last Admin: 02/25/25 14:28 Dose: 3 ml Documented By: JOSE Tolterodine Tartrate (Tolterodine Tartrate La 4 Mg Cap.Er.24h) 4 mg PO DAILY [facility] Last Admin: 02/25/25 07:48 Dose: 4 mg Documented By: JOSE Topiramate (Topiramate 25 Mg Tablet) 25 mg PO DAILY [facility] Last Admin: 02/25/25 07:47 Dose: 25 mg Documented By: JOSE Trazodone HCl (Trazodone Hcl 50 Mg Tablet) 50 mg PO BEDTIME PRN PRN Reason: Insomnia Verapamil HCl (Verapamil Hcl 40 Mg Tablet) 40 mg PO BID [facility]; Protocol Last Admin: 02/25/25 07:47 Dose: 40 mg Documented By: JOSE Vitamin D (Cholecalciferol (Vitamin D3) 25 Mcg Tablet) 25 mcg PO DAILY [facility] Last Admin: 02/25/25 07:48 Dose: 25 mcg Documented By: JOSE Labs 02/25/25 06:48 02/25/25 06:48 Labs: Laboratory Results - last 24 hr 02/25/25 06:48 MCV 100.6 H MCH 32.3 MCHC 32.1 RDW 12.6 Plt Count 179 MPV 10.7 Immature Gran % (Auto) 0.2 Neut % (Auto) 49.8 Lymph % (Auto) 34.5 [place] % (Auto) 11.2 H Eos % (Auto) 3.3 Baso % (Auto) 1.0 Lymph # (Auto) 1.8 [place] # (Auto) 0.6 Eos # (Auto) 0.2 Baso # (Auto) 0.1 Abs Immat Gran (auto) 0.01 Absolute Neuts (auto) 2.6 Absolute Nucleated RBC 0.000 Nucleated RBC % (auto) 0.0 Smear Tech's Comments VERIFIED Anion Gap 11 L Estim Creat Clear Calc 56.0 Estimated GFR 48 Fasting Glucose 89 Calcium 8.1 L Total Bilirubin 0.5 AST 77 H ALT 512 H Alkaline Phosphatase 201 H Total Protein 6.0 L Albumin 3.1 L Microbiology Microbiology Results: Microbiology 02/23/25 10:39 Blood Culture - Preliminary Blood - Venous No growth after 48 hours. 02/23/25 10:38 Blood Culture - Preliminary Blood - Venous No growth after 48 hours. Assessment and Plan (1) Bacteremia: Status: Acute Plan d2, 54yo F with solitary kidney, CKD3, mood disorder, AVN of femoral head, GERD, HLD, IBS, OAB, nephrolithiasis, gastric bypass surgery, orthostatic hypotension, migraines, and MILI; presenting with acute R flank pain and found to have obstructing renal calculus, complicated UTI, and bacteremia 1.GNR bacteremia/complicated UTI -ceftriaxone to 2 g/d (4)..ceftin 500BId -repeat blood cultures negative times 48 hours -ID consult appreciated 2. Abnormal LFTs -likely related to ceftriaxone -right upper quadrant ultrasound consistent with fatty liver 3.Obstructing R UV junction stone with hydronephrosis - s/p cystoscopy, right retrograde, right stent insertion by Dr Rocha 02/21 -outpatient follow up 4.EHSAN/CKD3 -returning to baseline -follow renals/divalent 5.Hx PE -01/2024 -continue Eliquis apixaban In my clinical judgment, the patient requires continued inpatient hospitalization for the following reasons: IV ABX for bacteremia, EHSAN... Specialty consultation Quality Stroke Does the patient have a stroke diagnosis?: No VTE Prior VTE?: No VTE Risk Level:: Medical - moderate - high VTE Device Contraindication: Treatment Not Indicated VTE Drug Contraindication: N/A - Med Ordered
[2025-02-26 03:37] VITALS: BP 123/70; PULSE 76; RESP 16; TEMP 36.5; O2SAT 94
[2025-02-26 07:04] LABS: Alanine Aminotransferase 369 U/L (0-31); Albumin Level 3.1 g/dL (3.5-5.0); Alkaline Phosphatase 186 U/L (39-117); Anion Gap 11 (12-20); Aspartate Amino Transferase 45 U/L (5-31); Blood Urea Nitrogen 19 mg/dL (9-16); Calcium 8.5 mg/dL (8.4-10.2); Carbon Dioxide 25 mmol/L (22-29); Chloride 113 mmol/L (96-108); Creatinine Clr Calc Pharmacy 57.5; Estimated Glomerular Filt Rate 49; Potassium 3.6 mmol/L (3.3-5.1); Sodium 145 mmol/L (135-145); Total Protein 5.9 g/dL (6.5-8.0)
[2025-02-26 07:06] LABS: Hematocrit 34.2 % (37.0-47.0); Hemoglobin 11.0 g/dl (12.0-16.0); Imm Gran Abs Auto 0.03 X10*3/uL (0.00-0.03); Imm Gran Pct Auto 0.4 % (0.0-0.4); Lymphocytes Absolute Auto 2.0 X10*3/uL (1.2-4.9); MANUAL DIFF FLAG SCAN; Mean Corpuscular HGB Conc 32.2 g/dl (31.0-35.0); Mean Corpuscular Hemoglobin 32.2 pg (27.0-33.0); Mean Corpuscular Volume 100.0 fL (80.0-98.0); NRBC Abs Auto 0.000 X10*3/uL (0.0-0.012); NRBC Pct Auto 0.0 /100WBC (0.0-0.2); Platelet Count 221 X10*3/uL (160-400); Red Blood Count 3.42 X10*6/uL (4.20-5.50); SCAN SMEAR FLAG 1; White Blood Count 6.7 X10*3/uL (4.8-10.8)
[2025-02-26 07:22] VITALS: BP 107/59; PULSE 65; RESP 16; TEMP 36.6; O2SAT 94
[2025-02-26] MEDS: Lidocaine 4 % Patch ADH..PATCH 1 PATCH TRANSDERMA (07:59)
[2025-02-26] MEDS: oxyCODONE HCl Immed Release 5 MG TABLET 10 MG PO (08:05)
[2025-02-26] MEDS: 0.9 % Sodium Chloride Flush 3 ML SYRINGE IVFLUSH (08:14)
--- NOTE | 2025-02-26 08:29 | P.CDIM_ITS ---
PROVIDER RESPONSE TEXT: To clarify, the appropriate diagnosis supported by the clinical indicators: Clinically unable to determine (explain): data ambiguos QUERY TEXT: PHYSICIAN'S DOCUMENTATION REQUEST Date of Query: 02/25/2025 09:56 AM EDT Patient Name: Xenia Graves Admit Date: 02/21/2025 Dear Mark Lea DO, A review of the medical record indicates additional documentation may be needed. Please review below and update the documentation accordingly. Clinical Indicators: WBC 13.1 temperature 100.6 pulse 101 UTI Ceftin ID: She has Klebsiella pneumonia blood and urine. Please clarify which, if any, of the following is the most likely etiology of the above symptoms and treatment rendered: Sepsis, present on admission Bacteremia (abnormal lab finding only, does not indicate systemic illness) Other (explain) Clinically unable to determine (explain) Thank you, Terri Martinez RN Use of terms such as suspected, likely, concern for, or probable (associated with a specific diagnosis that is being evaluated, monitored, or treated as if it exists) are acceptable and can be coded in the inpatient setting, when documented at the time of discharge. Please use your independent medical judgment in providing your response. THIS QUERY IS PART OF THE PERMANENT MEDICAL RECORD
[2025-02-26 12:00] VITALS: BP 121/65; PULSE 76; RESP 16; TEMP 37.6; O2SAT 93
--- NOTE | 2025-02-26 12:51 | P.DS_ITS ---
DS: Providers Provider Date of Service: 02/26/25 Date of admission: 02/21/25 00:33 Date of discharge: 02/26/25 Primary care physician: Hung Montelongo MD Consults: 02/21/25 00:33 Consult to Urology Routine Consulting Provider: [facility] U[facility] Reason for consultation: 7 mm obstructing calculus 02/23/25 09:55 Consult to Infectious Diseases Routine Consulting Provider: [facility] Disease [facility] Reason for consultation: Klebsiella bacteremia Has provider been notified: Yes DS: Diagnosis Discharge Diagnosis (1) Bacteremia: Status: Acute (2) Chronic kidney disease, stage III (moderate): Status: Acute DS: Summary Hospital Course Hospital Course: 54-year-old female with a past medical history of hyperlipidemia, CKD, anxiety, depression, PTSD, avascular necrosis of the femoral head, GERD, history of left nephrectomy at the age of 18, overactive bladder, IBS, umbilical hernia status post repair, recurrent UTIs, arthralgia, MIGUEL, kidney stones, sacroiliitis, history of gastric bypass surgery, iron deficiency anemia, orthostatic hypotension, migraine headaches; presented to the hospital today with a chief co mplaint of right flank pain. Patient was started earlier in the morning she started having right flank pain which has been gradually worsening hence presented to the ER for further evaluation. Per ER team, patient noted to have right flank tenderness; CT scan showed 7 mm obstructing stone with the hydronephrosis. Urinalysis abnormal consistent with UTI. Urology was notified. Patient admitted to general medical floor and started on ceftriaxone empirically. Seen in consultation by Urology; on 02/21/2025 patient underwent cystoscopy right retrograde with right stent insertion. She tolerated the procedure well. Ultimately blood cultures 2/2 and urine grew out Klebsiella sensitive to ceftriaxone. Of note patient's liver function tests elevated about day 3 of hospitalization. Ultrasound of the right upper quadrant demonstrate fatty liver only. Ceftriaxone was DC and switch to Ceftin; ID consulted and agree. Liver function trending downward secondary to DC of ceftriaxone. Patiari armstrong did have acute on chronic kidney disease that responded to volume. At this point in time she is medically acceptable to be discharge to home. She will complete a course of Ceftin 10 500 b.i.d. to complete hercourse. She will follow up with Urology in [id number] Time Attestation Discharge Coordination Time (in mins): 35 Quality: Safe Use of Opioids Does Pt have an Active Cancer Diagnosis on the Problem List?: No Quality: Stroke Does the patient have a stroke diagnosis?: No Physical Exam Vital Signs: Vital Signs: Last Vital Signs Temp 99.6 F 02/26/25 12:00 Pulse 76 02/26/25 12:00 Resp 16 02/26/25 12:00 BP 121/65 02/26/25 12:00 Pulse Ox 93 02/26/25 12:00 O2 Del Method Room Air 02/26/25 12:00 O2 Flow Rate 2 02/25/25 03:10 BMI result Body Mass Index 36.1 Const: Other: Awake alert no acute distress Resp: Other: Clear to auscultation bilaterally no rales rhonchi or wheezes Cardio: Other: No S4; positive S1-S2; no S3 murmurs rubs or gallops GI: Other: Soft nontender nondistended normoactive bowel sounds Extrem: Other: No edema bilaterally DS: Data Data Completed and Pending Completed studies during hospitalization [Text1]: Procedures Other Electroconvulsive Therapy (02/06/24) Labs on day of discharge: Laboratory Results - last 24 hr 02/26/25 06:26 WBC 6.7 RBC 3.42 L Hgb 11.0 L Hct 34.2 L MCV 100.0 H MCH 32.2 MCHC 32.2 RDW 12.4 Plt Count 221 MPV 10.1 Immature Gran % (Auto) 0.4 Neut % (Auto) 59.8 Lymph % (Auto) 30.0 Mercer % (Auto) 7.0 Eos % (Auto) 1.9 Baso % (Auto) 0.9 Lymph # (Auto) 2.0 Mercer # (Auto) 0.5 Eos # (Auto) 0.1 Baso # (Auto) 0.1 Abs Immat Gran (auto) 0.03 Absolute Neuts (auto) 4.0 Absolute Nucleated RBC 0.000 Nucleated RBC % (auto) 0.0 Smear Tech's Comments VERIFIED Sodium 145 Potassium 3.6 Chloride 113 H Carbon Dioxide 25 Anion Gap 11 L BUN 19 H Creatinine 1.15 Estim Creat Clear Calc 57.5 Estimated GFR 49 Fasting Glucose 87 Calcium 8.5 Total Bilirubin 0.5 AST 45 H ALT 369 H Alkaline Phosphatase 186 H Total Protein 5.9 L Albumin 3.1 L Preliminary micro results at discharge 02/23/25 10:39 Blood Culture - Preliminary Blood - Venous No growth after 48 hours. 02/23/25 10:38 Blood Culture - Preliminary Blood - Venous No growth after 48 hours. Discharge Plan Discharge Anticipated Discharge Date/Time: 02/26/25 12:34 Patient Disposition: Home Health Service Discharge Diagnosis: Obstructive uropathy Referrals: Leyla HUERTA [Outside] - 3-5 Days Referral Note: Leyla HUERTA will call you to schedule home nursing visits Hung Montelongo MD [Primary Care Provider, Internal Medicine] - 1 Week Discharge Medications: New cefuroxime axetil 500 mg Tablet 500 mg PO Q12H Qty: 14 0RF Eliquis 5 mg Tablet 5 mg PO BID Qty: 30 0RF oxycodone 10 mg tablet 10 mg PO Q6H PRN (Reason: pain) Qty: 20 0RF Rx Instructions: Partial Fill upon patient request. Continued cholecalciferol (vitamin D3) [Vitamin D3] 25 mcg (1,000 unit) capsule 25 mcg PO DAILY 90 Days Qty: 90 3RF meclizine 25 mg tablet 25 mg PO TID PRN (Reason: dizziness) 30 Days Qty: 90 1RF trazodone 50 mg tablet 50 mg PO BEDTIME PRN (Reason: insomnia) 30 Days Qty: 30 1RF gabapentin 800 mg tablet 800 mg PO TID 30 Days Qty: 90 2RF lidocaine 5 % adhesive patch,medicated 1 patch topical DAILY Qty: 30 0RF Rx Instructions: leave on most painful area for up to 12 hrs midodrine 10 mg Tablet 10 mg PO TID@0900,1300,1700 Qty: 0 0RF Vraylar 4.5 mg capsule 4.5 mg PO DAILY topiramate 25 mg tablet 25 mg PO DAILY diphenhydramine HCl 25 mg capsule 50 mg PO BEDTIME verapamil 40 mg tablet 40 mg PO BID rizatriptan 10 mg tablet,disintegrating 10 mg PO ONCE MDD 20 MG (MRX1 AFTER 4 HOURS) PRN (Reason: Migraine Headache) Rx Instructions: take 1 tab at onset of headache; if no relief may repeat 1 tab after at least 4 hrs; max = 2 tabs/24 hr PO lorazepam 1 mg tablet 1 mg PO TID melatonin 5 mg tablet 10 mg PO BEDTIME tramadol 50 mg tablet 100 mg PO Q8H PRN (Reason: severe pain) 30 Days Qty: 60 0RF hyoscyamine sulfate 0.125 mg tablet,disintegrating 0.125 mg PO BID PRN (Reason: abdominal discomfort) Qty: 60 2RF Linzess 290 mcg capsule 290 mcg PO QAM Qty: 30 4RF furosemide [Lasix] 20 mg tablet 20 mg PO DAILY PRN (Reason: Edema) albuterol sulfate [Ventolin HFA] 90 mcg/actuation HFA aerosol inhaler 2 puff inhalation Q6H PRN (Reason: Shortness Of Breath Or Wheezing) solifenacin [Vesicare] 10 mg tablet 10 mg PO DAILY Qty: 30 5RF Discharge Orders: Discharge Order (Routine); Ordered 02/26/25 Ordered By: Mark Lea Diet: Advance to usual diet Activity on Discharge: As tolerated Stand Alone Forms: Patient Portal Discharge page Print Language: Solomon Islander Care Plan Goals: Complete course of Ceftin twice daily for a your urine infection. Use oxycodone as needed for pain Health Concerns: Resume all meds as taken before hospital Plan of Treatment: Follow up with your PCP next available Assessment: See discharge summary
--- NOTE | 2025-02-26 13:11 | W.MHC.F2F ---
Service Date Service Date: 02/26/25 Encounter Date of encounter: 02/26/25 Encounter: Acute hospitalization Reasons for Services Signs and symptoms assessed: Assess response to therapies and pain management Reason for care home: medication management and medication treatment Homebound: Leaving the home is medically contraindicated at this time without the asist of a device and/or another person due th the listed conditions above and below. Reason homebound: weakness related to hospital stay and unable to drive Certification: Based on the above findings, I certify that this patient is confined to the home and needs intermittent care home care, physical therapy and/or speech therapy, or continues to need occupational therapy. The patient is under my care, and I have initiated the establishment of the plan of care. The patient will be followed by a physician who will periodically review the plan of care. Time Spent With Patient Time: Total time managing care of this patient today ____ minutes.
--- NOTE | 2025-02-26 13:32 | MHC.CM.PN ---
Patient cleared for dc home w/ new [facility] for SN. Private transport.
== END 2025-02-26 13:45 | disposition home health service (06) | DRG 463 ==
LOC: HO.ED 02-21 00:23 → HO.EDOVER 02-21 00:53 → HO.S3 02-21 11:33
PROVIDERS: Family Medicine; Physician Assistant; Urology; Admitting Provider Hospitalist; Emergency Provider Emergency Medicine; PCP Internal Medicine; Visit Provider Hospitalist
DX: N13.6 Pyonephrosis (principal); N17.9 Acute kidney failure, unspecified; R78.81 Bacteremia; N18.30 Chronic kidney disease, stage 3 unspecified; K76.0 Fatty (change of) liver, not elsewhere classified; I95.1 Orthostatic hypotension; Z90.5 Acquired absence of kidney; B96.1 Klebsiella pneumoniae [K. pneumoniae] as the cause of diseases classified elsewhere; Z98.84 Bariatric surgery status; Z87.440 Personal history of urinary (tract) infections; Z86.711 Personal history of pulmonary embolism; Z79.01 Long term (current) use of anticoagulants; Z79.899 Other long term (current) drug therapy
CPT/HCPCS: 36415; 74176; 76705; 80048; 80053; 81001; 82248; 82570; 82607; 82746; 82947; 83605; 83690; 83735; 84300; 84702; 85025; 85027; 87040; 87077; 87086; 87088; 87186; 87205; 94660; 99285; C1758; C1769; C2617; J0690; J0696; J1171; J1650; J2003; J2270; J2371; J2405; J2704; J3010; Q9967

== ENCOUNTER → 2025-02-20 22:17 | Outpatient (BNV) | payer OTHER, SELFPAY | PROVIDERS: Emergency Provider Emergency Medicine; PCP Internal Medicine; Visit Provider Radiology Diagnostic Radiology | DX: N13.2 Hydronephrosis with renal and ureteral calculous obstruction (principal) | CPT/HCPCS: 74176 ==

== ENCOUNTER 2025-02-21 00:33 | Outpatient (BNV) | payer OTHER, SELFPAY | END 2025-02-25 07:00 | PROVIDERS: Admitting Provider Hospitalist; Emergency Provider Emergency Medicine; PCP Internal Medicine; Visit Provider Radiology Diagnostic Radiology | DX: R94.5 Abnormal results of liver function studies (principal) | CPT/HCPCS: 76705 ==

== ENCOUNTER → 2025-02-21 00:33 | Outpatient (BNV) | payer OTHER, SELFPAY | PROVIDERS: Admitting Provider Hospitalist; Emergency Provider Emergency Medicine; PCP Internal Medicine; Visit Provider Family Medicine | DX: N39.0 Urinary tract infection, site not specified (principal); N17.9 Acute kidney failure, unspecified | CPT/HCPCS: 99232; 99233 ==

== ENCOUNTER → 2025-02-21 00:33 | Outpatient (BNV) | payer OTHER, SELFPAY | PROVIDERS: Admitting Provider Hospitalist; Emergency Provider Emergency Medicine; PCP Internal Medicine; Visit Provider Urology | DX: N13.0 Hydronephrosis with ureteropelvic junction obstruction (principal); N18.31 Chronic kidney disease, stage 3a | CPT/HCPCS: 52332; 74420; 99222 ==

== ENCOUNTER → 2025-02-21 00:33 | Outpatient (BNV) | payer OTHER, SELFPAY | PROVIDERS: Admitting Provider Hospitalist; Emergency Provider Emergency Medicine; PCP Internal Medicine; Visit Provider Internal Medicine | DX: N17.9 Acute kidney failure, unspecified (principal) | CPT/HCPCS: 99222 ==

== ENCOUNTER 2025-02-27 10:43 | Outpatient (REF) | payer OTHER, SELFPAY ==
[2025-02-27 11:12] LABS: Hematocrit 41.2 % (37.0-47.0); Hemoglobin 13.2 g/dl (12.0-16.0); Imm Gran Abs Auto 0.04 X10*3/uL (0.00-0.03); Imm Gran Pct Auto 0.4 % (0.0-0.4); Lymphocytes Absolute Auto 1.8 X10*3/uL (1.2-4.9); MANUAL DIFF FLAG SCAN; Mean Corpuscular HGB Conc 32.0 g/dl (31.0-35.0); Mean Corpuscular Hemoglobin 32.4 pg (27.0-33.0); Mean Corpuscular Volume 101.0 fL (80.0-98.0); NRBC Abs Auto 0.000 X10*3/uL (0.0-0.012); NRBC Pct Auto 0.0 /100WBC (0.0-0.2); Platelet Count 302 X10*3/uL (160-400); Red Blood Count 4.08 X10*6/uL (4.20-5.50); SCAN SMEAR FLAG 1; White Blood Count 8.9 X10*3/uL (4.8-10.8)
[2025-02-27 11:53] LABS: Alanine Aminotransferase 356 U/L (0-31); Albumin Level 3.9 g/dL (3.5-5.0); Alkaline Phosphatase 311 U/L (39-117); Anion Gap 11 (12-20); Aspartate Amino Transferase 82 U/L (5-31); Blood Urea Nitrogen 19 mg/dL (9-16); Calcium 9.1 mg/dL (8.4-10.2); Carbon Dioxide 27 mmol/L (22-29); Chloride 109 mmol/L (96-108); Cholesterol 215 mg/dL (<200); Estimated Glomerular Filt Rate 47; HDL Cholesterol 41 mg/dL (>40); Potassium 4.1 mmol/L (3.3-5.1); Sodium 143 mmol/L (135-145); Total Protein 7.3 g/dL (6.5-8.0); Triglycerides 114 mg/dL (<150)
[2025-02-27 12:18] LABS: Folate 12.2 ng/mL (> or = 4.0); Vitamin B12 842 pg/mL (200-900)
[2025-02-27 12:34] LABS: Appearance Urine Clear; Glucose Urine UA Negative (Negative); PH 6.5 (5.0-9.0); Specific Gravity - Urine 1.015 (1.005-1.025); UMIC TRIGGER UACC YES
[2025-02-27 12:43] LABS: UACC Culture Trigger YES
--- OUTSIDE RECORDS SUMMARY | 2025-02-27 13:12 | XMS_ITS | Clinical Summary ---
Author Organization [facility] Address [address] [address] Phone Care Team Providers Care Dining Server Name Role Phone Hung Montelongo MD Primary Care Provider +1- [phone] Allergies Active Allergy Reactions Criticality Noted Date [...] [facility] [address] [place] [address] Alejandro Benz MD [address] [facility] [address] [place] [phone] Health Maintenance Due Date Last Done Comments Breast Cancer Screening 1970 Hepatitis B Vaccine (1 of 3 - 19+ 3-dose series) 11/17 Pneumococcal Vaccine: 50+ Years (1 of 2 - PCV) 989 Colorectal Cancer Screening: Annual FOBT 2018 Colorectal Cancer Screening: Colonoscopy 2018 Colorectal Cancer Screening: Sigmoidoscopy 2018 Influenza Vaccine (#1) 2024 [place] [id number] [facility] Medicaid Care Teams Dining Server Relationship Specialty Start Date End Date Hung Montelongo MD [address] [place] [id number] PCP - General 05/11/20
--- OUTSIDE RECORDS SUMMARY | 2025-02-27 13:12 | XMS_ITS | Clinical Summary ---
Author Organization [employer] Address [address] [facility] 7[address] [place] [address] Care Team Providers Care Software Computer Specialist Name Role Phone Unavailable Primary Care [...] 06/05/2025 1:00 PM EST Office Visit [facility] [address] [place] [address] Timo, Chari [address] [place] [address] Health Maintenance Due Date Last Done Comments [...] Procedure Name Priority Date/Time Associated Diagnosis Comments Full PROPHYLAXIS - ADULT Routine 025 8:00 AM EDT Dental calculus Localized gingival recession, minimal PERIODIC ORAL EVALUATION - ESTABLISHED PATIENT Routine 11/21/2024 8:00 AM EDT INTRAORAL - COMPLETE SERIES OF RADIOGRAPHIC IMAGES Routine 05/22/2024 1:00 PM EST from Last 3 Months or Most Recently Relevant to Health Maintenance Insurance [facility] MEDICAID STAND ADULT
--- OUTSIDE RECORDS SUMMARY | 2025-02-27 13:12 | XMS_ITS | Encounter Summary ---
Author Organization [employer] Address [address] [facility] 7[address] [place] [address] Care Team Providers Care Concrete Pavement Installer Name Role Phone Unavailable Primary Care Provider Unavailabl e Encounter Details Date Type Department Care Team (Latest Contact Info) Description 01/20/2022 Abstract [facility] CONVERSIONS Dental, Provider, DDS Social [...] PM EST Office Visit [facility] [address] [place] [address] Chari Greenwood [address] [place] [address] documented as of this encounter Visit Diagnoses Not on filedocumented in this encounter
--- OUTSIDE RECORDS SUMMARY | 2025-02-27 13:12 | XMS_ITS | Encounter Summary ---
Author Organization [employer] Address [address] [facility] 7[address] [place] [address] Care Team Providers Care Remelt Sugar Boiler Name Role Phone Unavailable Primary Care Provider [...] Office Visit [facility] [address] [place] [address] Chari Greenwood [address] [place] [address] documented as of this encounter Visit Diagnoses Not on filedocumented in this encounter
[2025-03-07 16:53] LABS: FIB-ALT 219 U/L (6-29); FIB-Alpha-2-Macroglobulin 180 mg/dL (106-279); FIB-Apolipoprotein A1 134 mg/dL (101-198); FIB-GGT 267 U/L (3-70); FIB-Haptoglobin 205 mg/dL (43-212); FIB-Total Bilirubin 0.6 mg/dL (0.2-1.2); Liver Fibrosis Score 0.35; Liver Fibrosis Stage F1-F2; Nec Inflam Act Grade A3; Nec Inflam Act Score 0.84
== END 2025-02-27 10:44 | disposition home or self-care (01) ==
LOC: HO.LAB 10:43
PROVIDERS: Absent Provider Hospitalist; PCP Internal Medicine; Visit Provider Internal Medicine
DX: E53.8 Deficiency of other specified B group vitamins (principal); R79.89 Other specified abnormal findings of blood chemistry; D64.9 Anemia, unspecified; E78.00 Pure hypercholesterolemia, unspecified; E55.9 Vitamin D deficiency, unspecified; R30.0 Dysuria
CPT/HCPCS: 36415; 80053; 80061; 80076; 81001; 81596; 82248; 82306; 82607; 82746; 84443; 85025; 87086

== ENCOUNTER 2025-03-03 12:41 | Outpatient (REF) | payer OTHER, SELFPAY ==
--- NOTE | ~2025-03-03 | US_ITS ---
EXAMINATION: US KIDNEY BILATERAL HISTORY: N20.0 - Calculus of kidney TECHNIQUE: Real-time grayscale ultrasound imaging of the kidneys was performed and images were reviewed. COMPARISON: Correlation is made with a CT of the abdomen without contrast dated 02/20/2025. FINDINGS: Right kidney: The right kidney measures 14.2 x 5.8 x 5.9 cm. Renal parenchymal echotexture and thickness are normal. Multiple cysts are seen including a 5.7 x 4.5 x 5.0 cm upper pole cyst, 3.3 x 3.1 x 3.3 cm lower pole cyst, and a 3.8 x 2.9 x 4.0 cm cyst at the lower pole. The lower pole cyst demonstrates septations. There is a 6 x 5 x 7 mm nonobstructing calculus at the lower pole. There is no hydronephrosis. Left Kidney: The left kidney is surgically absent. US/US renal BI IMPRESSION: 7 mm nonobstructing calculus at the lower pole of the right kidney. No hydronephrosis. Multiple right renal cysts as described. Follow-up of the 3.8 x 2.9 x 4.0 cm septated cyst at the lower pole is recommended. Electronically signed by: Vincenzo Betancourt MD 03/03/2025 01:21 PM [facility]
--- OUTSIDE RECORDS SUMMARY | 2025-03-03 16:03 | XMS_ITS | Clinical Summary ---
Author Organization [facility] Address [address] [address] Phone Care Team Providers Care Heading And Priming Tool Setter Name Role Phone Hung Montelongo MD Primary Care Provider +1- [phone] Allergies Active Allergy Reactions Criticality Noted Date [...] Visit [facility] [address] [place] [address] Alejandro Benz MD [address] [facility] [address] [place] [phone] Health Maintenance Due Date Last Done Comments Breast Cancer Screening 1970 Hepatitis B Vaccine (1 of 3 - 19+ 3-dose series) 11/17 Pneumococcal Vaccine: 50+ Years (1 of 2 - PCV) 989 Colorectal Cancer Screening: Annual FOBT 2018 Colorectal Cancer Screening: Colonoscopy 2018 Colorectal Cancer Screening: Sigmoidoscopy 2018 Influenza Vaccine (#1) 2024 [place] [address] [facility] Medicaid Care Teams Heading And Priming Tool Setter Relationship Specialty Start Date End Date Hung Montelongo MD [address] [place] [id number] PCP - General 05/11/20
--- OUTSIDE RECORDS SUMMARY | 2025-03-03 16:03 | XMS_ITS | Clinical Summary ---
Author Organization [facility] Address [address] [place] [address] Phone Care Team Providers Care Retail Marketing Executive Name Role Phone Hung Montelongo MD Primary Care Provider +1 -[phone] Allergies No known active allergies Medications VENTOLIN HFA 90 mcg/actuation inhaler TAKE 2 PUFFS INHALED EVERY 6 HOURS NEEDED FOR SHORTNESS OF BREATH OR WHEEZING FOR 30 DAYS 3 Active VITAMIN D3 25 mcg (1,000 unit) capsule TOME WU C PSULA TODOS LOS D 4 Active ferrous sulfate 325 mg (65 mg [place] iron) tablet TOME WU TABLETA TODOS LOS [...] topic Medical Devices Not on file Insurance [facility] [employer] [employer] [facility] Care Teams Retail Marketing Executive Relationship Specialty Start Date End Date Hung Montelongo MD NPI: [id number] [place] [address] [address] [place] [address] PCP - General Internal Medicine 07/24/23 Additional Source Comments The information contained in this document represents components of the legal health record. It is not the complete legal health record.[facility]"
== END 2025-03-03 12:42 | disposition home or self-care (01) ==
LOC: HO.US 12:41
PROVIDERS: PCP Internal Medicine; Visit Provider Urology
DX: N20.0 Calculus of kidney (principal)
CPT/HCPCS: 76775

== ENCOUNTER → 2025-03-03 12:43 | Outpatient (BNV) | payer OTHER, SELFPAY | PROVIDERS: PCP Internal Medicine; Visit Provider Radiology Diagnostic Radiology | DX: N20.0 Calculus of kidney (principal); N28.1 Cyst of kidney, acquired | CPT/HCPCS: 76775 ==

== ENCOUNTER 2025-03-05 11:51 | Outpatient (AMB) | payer OTHER, SELFPAY ==
[2025-03-05 12:33] VITALS: BP 110/72; PULSE 82; O2SAT 97; BMI 32.7
--- NOTE | 2025-03-05 12:33 | MHC.PC.OV ---
Vital Signs 03/05/25 12:33 Height 5 ft 2 in Weight 179 lb BMI 32.7 BP 110/72 Blood Pressure Location Lt brachial Position Sitting Pulse 82 Pulse Source Pulse Oximeter Pulse Oximetry (%) 97 Oxygen Delivery Method Room Air Intake Visit Reasons: 3mth f/u Consulting Actuary Required: No Accompanied by: Self / Same As Patient Allergies ibuprofen (From Motrin) Allergy (Verified 03/05/25 13:18) Unknown acetaminophen Adverse Reaction (Intermediate, Verified 03/05/25 13:18) Liver problems atorvastatin Adverse Reaction (Intermediate, Verified 03/05/25 13:18) elevated LFTs rosuvastatin Adverse Reaction (Intermediate, Verified 03/05/25 13:18) elevated LFTs Citalopram Analogues Adverse Reaction (Unknown, Verified 03/05/25 13:18) Unknown prednisone Adverse Reaction (Unknown, Verified 03/05/25 13:18) Unknown Medication List - Last Reconciled 03/05/25 by Hung Montelongo MD albuterol sulfate 90 mcg/actuation (Ventolin HFA) 2 puffs inhalation Q6H PRN apixaban (Eliquis) 5 mg PO BID cariprazine (Vraylar) 4.5 mg PO DAILY cefuroxime axetil 500 mg PO Q12H cholecalciferol (vitamin D3) (Vitamin D3) 25 mcg PO DAILY 90 days diphenhydramine HCl 50 mg PO BEDTIME furosemide (Lasix) 20 mg PO DAILY PRN gabapentin 800 mg PO TID 30 days hyoscyamine sulfate 0.125 mg PO BID PRN lidocaine 5% 1 patch topical DAILY linaclotide (Linzess) 290 mcg PO QAM lorazepam 1 mg PO TID meclizine 25 mg PO TID PRN 30 days melatonin 10 mg PO BEDTIME midodrine 10 mg PO TID@0900,1300,1700 oxycodone 10 mg PO Q6H PRN rizatriptan 10 mg PO ONCE PRN MDD 20 MG (MRX1 AFTER 4 HOURS) solifenacin (Vesicare) 10 mg PO DAILY topiramate 25 mg PO DAILY tramadol 100 mg (2 x 50 mg) PO Q8H PRN 30 days trazodone 50 mg PO BEDTIME PRN 30 days verapamil 40 mg PO BID Tobacco use date assessed: 03/05/25 Dental Screening Dental Screen Date: 03/05/25 Did you have a dental visit in the last 12 months?: Yes Did you have a dental problem in the last 6 months where you did not have access to dental care?: No Was dental information given to patient?: Patient has dentist HPI 3mth f/u HPI Details Patient comes in today for her follow up visit She was admitted [place] [facility] [place] few days a couple of weeks ago for obstructive urinary calculus, hydronephrosis and bacteremia She presented to the ER on 02/21/2025 with increasing right flank pain and was found to have an obstructing urinary calculi with hydronephrosis She eventually underwent cystoscopy and right stent insertion with urology that relieved her symptoms Blood cultures came back positive for Klebsiella and she was started on IV Ceftriaxone, which was then switched to oral Ceftin at the time of her discharge She is currently still finishing up her Abx and will be seeing urology for follow up tomorrow, with possible stent removal as well Patient is presently still reporting that she is experiencing increased pain and supposedly accidentally threw out the few remaining Oxycodone 10 mg tablets that she was prescribed at the time of her discharge and is requesting for a refill on this She denies any fever, headaches or dizziness Denies any chest pains, no increased SOB No nausea/vomiting, relates (+) right-sided abdominal and flank pains mostly related to the stent that she presently still has on her right side No change in bowel habits noted She had her follow up labs done last week - to discuss her results [facility] Medical History Bacteremia Pure hypercholesterolemia Left breast mass Pulmonary nodules Chronic kidney disease, stage III (moderate) Obesity (BMI 30-39.9) Renal cyst Diverticulosis Tubular adenoma Asthma Spondylosis of lumbar spine Sacroiliitis Dizziness of unknown etiology Chronic constipation Hx of schizophrenia Panic attacks PTSD (post-traumatic stress disorder) Dyspareunia Pyelonephritis Ingrown toenail Iron deficiency anemia Major depression, recurrent Anxiety Insomnia Tremor Orthostatic hypotension Incisional hernia without obstruction or gangrene Avascular necrosis of femoral head Bilateral carpal tunnel syndrome Peroneal neuropathy Lumbar degenerative disc disease Vitamin D deficiency GERD (gastroesophageal reflux disease) Migraine Hyperlipidemia Surgical History Hx of lithotripsy History of left nephrectomy (~1999) History of colonoscopy History of surgery Hx of cystoscopy History of bilateral breast reduction surgery History of hysterectomy History of cholecystectomy History of endoscopy (~06/2016) History of bladder repair surgery (~03/2015) S/P cystoscopy (~07/30/12) S/P panniculectomy History of hernia repair (~03/29/10) History of bladder surgery (~10/2009) History of gastric bypass (~2008) History of incisional hernia repair (~1999) Hx of umbilical hernia repair (~1999) S/P laparoscopic sleeve gastrectomy Family History Father Liver cancer Mother Breast cancer Sister Lung cancer Other Mental health problem Social History Household Members: Spouse Housing: Apartment Are you a primary child care counselor to a significant other at home: No Do you presently have visiting nurse or other home services: Yes Alcohol intake: never Patient Tobacco Use Status: Never used Tobacco e-Cigarette/Vaping Use: Never Used Second Hand Smoke Exposure: No Advance Directives Date on File: 07/12/21 service: No Current occupational status: disabled Sexual orientation: Straight/Heterosexual Gender identity: Female Cognitive needs: No Hearing needs: No Vision needs: Yes Female Reproductive History Menstrual Age of Menarche: 13 Questionnaire PHQ-9 Over the last 2 weeks, how often have you been bothered by any of the following problems? 1. Little interest or pleasure in doing things: not at all 2. Feeling down, depressed, or hopeless: not at all 3. Trouble falling or staying asleep, or sleeping too much: several days 4. Feeling tired or having little energy: more than half the days 5. Poor appetite or overeating: several days 6. Feeling bad about yourself - or that you are a failure or have let yourself or your family down: several days 7. Trouble concentrating on things, such as reading the newspaper or watching television: more than half the days 8. Moving or speaking so slowly that other people could have noticed. Or the opposite - being so fidgety or restless that you have been moving around a lot more than usual: several days 9. Thoughts that you would be better off or of hurting yourself in some way: several days Total score: 9 Depression Screening Interpretation: Positive Depression Screening Follow-up: Existing condition and In treatment Depression Screening Done: Yes 75370 - PHQ-9 Billing: Yes Source: Developed by Drs. Vincenzo Mayo, Beverly Hernandez, Angel Vogel and colleagues, with an educational juan antonio from [employer]. Thrive Questionnaire Date Thrive assessed: 03/05/25 I am a: Patient What is your living situation today?: I have a steady place to live Within the past 12 months, did the food you bought not last and you didn't have the money to get more?: Sometimes True Within the past 12 months, did you worry whether your food would run out before you got money to buy more?: Sometimes True Do you have trouble paying for medicines?: No Do you have trouble getting transportation to medical appointments?: No Do you have trouble paying your heating and electricity bill?: No Do you have trouble taking care of your child, family member or friend?: I choose not to answer this question Do you have trouble with day-to-day activities such as bathing, preparing meals, shopping, managing finances, etc.?: Yes Are you currently unemployed and looking for a job?: I choose not to answer this question Are you interested in more education?: I choose not to answer this question Please select the resources that you would like help with: None Currently or been in a relationship where the following occur: I choose not to answer THRIVE Score: 2 AUDIT C Alcohol Use Questionnaire (AUDIT-C) 1. How often do you have a drink containing alcohol?: Never 3. How often do you have six or more drinks on one occasion?: Never Total Score: 0 Score Reviewed/Action Taken: Yes JAMIE-7 AMB Questionnaire JAMIE-7 Date JAMIE - 7 assessed: 03/05/25 Feeling nervous, anxious, or on edge: 0 = Not at all Not being able to stop or control worryin = Not at all Worrying too much about different things: 0 = Not at all Trouble relaxin = Not at all Being so restless that it is hard to sit still: 0 = Not at all Becoming easily annoyed or irritable: 0 = Not at all Feeling afraid as if something awful might happen: 0 = Not at all Total JAMIE-7 score (0-4 normal; 5-9 mild; 10-14 moderate; 15-21 severe): 0 Source: Developed by Drs. Vincenzo Mayo, Beverly Hernandez, Angel Vogel and colleagues, with an educational juan antonio from [employer]. Review of Systems Const Denies chills, Reports fatigue, Denies fever(s) and Denies headache(s) ENT Denies dysphagia, Denies dizziness, Denies otalgia, Denies headache(s), Denies neck pain, Denies odynophagia and Denies sore throat Card Denies chest pain, Denies irregular heart rhythm, Denies palpitations and Denies dyspnea Resp Denies chest congestion, Denies cough, Denies dyspnea and Denies wheezing GI Reports abdominal pain (on the right side - mostly related to the current urinary stent in place), Denies constipation, Denies dysphagia, Denies heartburn, Denies diarrhea, Reports nausea (on and off), Denies odynophagia and Denies vomiting Denies hematuria, Denies difficulty voiding, Denies dysuria and Denies urinary urgency Musc Reports back pain (over the lower back - chronic), Denies arthralgias and Denies neck pain Skin/Breast Denies rash Neuro Denies dizziness, Denies headache(s) and Denies paresthesias Psych Reports anxiety and Reports depression Endo Reports fatigue and Denies palpitations Catarino/Lymph Details: on and off swelling of both lower legs and feet Denies easy bruising Aller/Immun Denies wheezing Physical exam (Primary Care) Vital Signs: Last Vital Signs Pulse 82 03/05/25 12:33 BP 110/72 03/05/25 12:33 Pulse Ox 97 03/05/25 12:33 Oxygen Delivery Method Room Air 03/05/25 12:33 BMI result Body Mass Index 32.7 Tobacco/Smoking Status: Tobacco use Status Tobacco use date assessed 03/05/25 03/05/25 12:39 Patient Tobacco Use Status Never used Tobacco 03/05/25 12:39 e-Cigarette/Vaping Use Never Used 03/05/25 12:39 PHQ-9: PHQ-9 Score PHQ-9: Total score 9 03/05/25 13:44 Depression Screening Interpretation: Positive Depression Screening Follow-up: Existing condition and In treatment Thrive Assessment: Date of Thrive Assessment Date Thrive assessed 03/05/25 03/05/25 12:39 Currently or been in a relationship where the following occur: I choose not to answer Const General: no acute distress and alert HENMT Ears: TM's normal bilaterally and EAC's normal Throat: Yes posterior oropharynx normal and Yes tonsils normal Neck Neck: Yes supple and No lymphadenopathy Thyroid: Thyroid normal Resp Auscultation: clear to auscultation bilaterally, no rales and no wheezes Cardio Rate: regular rate Rhythm: regular rhythm Heart sounds: no murmurs GI Other: (+) right-sided renal stent in place Palpation (GI): Soft to palpation, nontender and no hernias Auscultation: normal bowel sounds General: Yes no CVA tenderness Back/Spine/Pelvis Back: no CVA tenderness Thoracic/Lumbar Spine: paraspinal muscle tenderness (over the lumbar region) on the right greater than left and lumbar spinal tenderness Skin Rashes: no rashes Extrem General: No clubbing, No cyanosis and Yes edema (1+ bipedal edema) Results Reviewed Results Reviewed: Laboratory Tests 02/27/25 02/27/25 10:58 11:03 WBC 8.9 Hgb 13.2 Hct 41.2 D Plt Count 302 D Sodium 143 Potassium 4.1 Creatinine 1.20 Estimated GFR 47 Fasting Glucose 101 H Calcium 9.1 D AST 82 H ALT 356 H Alkaline Phosphatase 311 H Triglycerides 114 Cholesterol 215 H LDL Cholesterol, Calc 152 H HDL Cholesterol 41 Vitamin B12 842 25-OH Vitamin D Total 37.1 TSH 0.76 Ur Specific [place] 1.015 Urine Protein 100 (2+) H Urine Glucose (UA) Negative Urine Blood Large (3+) H Urine Nitrite Negative Ur Leukocyte Esterase Moderate (2+) H Coding Level of Care Code Est Pt Level 4 (22571) Diagnoses Hydronephrosis with urinary obstruction due to ureteral calculus N13.2 Bacteremia R78.81 Solitary kidney, acquired Z90.5 Pure hypercholesterolemia E78.00 Hyperlipidemia type: pure hypercholesterolemia Elevated LFTs R79.89 MIGUEL (obstructive sleep apnea) G47.33 Multiple thyroid nodules E04.2 Chronic constipation K59.09 Orthostatic hypotension I95.1 Pruritus L29.9 Gastroesophageal reflux disease without esophagitis K21.9 Esophagitis presence: without esophagitis Edema, unspecified type R60.9 Edema type: unspecified Lumbar degenerative disc disease M51.36 Pain in other joint M25.59 Joint pain location: other joint Migraine without status migrainosus, not intractable, unspecified migraine type G43.909 Intractability: not intractable Migraine type: unspecified Status migrainosus presence: without status migrainosus Vitamin D deficiency E55.9 Memory impairment R41.3 Primary insomnia F51.01 Insomnia type: primary Anxiety F41.9 Episode of recurrent major depressive disorder, unspecified depression episode severity F33.9 Active/Remission status: currently active Major depression episode severity: unspecified Obesity (BMI 30-39.9) E66.9 Additional Codes PHQ-9 - 36940 - PHQ-9 Billing: Yes ([id number]) Assessment & Plan Assessment & Plan (1) Hydronephrosis with urinary obstruction due to ureteral calculus: Code(s): N13.2 - Hydronephrosis with renal and ureteral calculous obstruction Category: Medical Plan: Abdominal and pelvic CT done on 02/20/2025 revealed (+) 7 mm obstructing calculus present at the right ureteropelvic junction with moderate right hydronephrosis Patient was seen by urology and underwent cystoscopy with right stent insertion, with subsequent resolution/improvement of her symptoms A follow up renal US done a couple of days ago on 03/03/2025 revealed (+) 7 mm nonobstructing calculus at the lower pole of the right kidney, with no hydronephrosis seen. There are multiple right renal cysts noted as well as a 3.8 x 2.9 x 4.0 cm septated cyst at the lower pole - follow up of this is recommended She is currently requesting for a refill of her Oxycodone 10 mg that was prescribed from the hospital when she was discharged last week, as she reportedly accidentally threw out the few remaining tablets that she had a couple of days ago Have reminded patient that she was discharged from pain management from the practice a few years ago for inappropriate UDS and she will not be prescribed any opioids from the practice at all now and in the future (2) Bacteremia: Code(s): R78.81 - Bacteremia Category: Medical Plan: Blood cultures (/) and urine culture done a couple of weeks ago grew (+) Klebsiella She was initially started on IV Ceftriaxone and this was transitioned to oral Ceftin 500 mg Q 12 hours, which she is currently still finishing up (3) Solitary kidney, acquired: Comment: (+) Hx of left nephrectomy >20 years ago due to recurrent kidney stones Code(s): Z90.5 - Acquired absence of kidney Category: Medical Plan: Follow up with nephrology/urology as scheduled (4) Hyperlipidemia: Code(s): E78.5 - Hyperlipidemia, unspecified Category: Medical Qualifiers: Hyperlipidemia type: pure hypercholesterolemia Qualified Code(s): E78.00 - Pure hypercholesterolemia, unspecified Plan: Results of her labs done last week reviewed and discussed with patient - her cholesterol levels remain significantly elevated She is presently not a candidate for statin Rx due to her highly elevated LFTs, with her serum AST currently at 82 (normal at 5-31), ALT at 356 (normal from 0-31) alkaline phosphatase at 311 (normal from 39-117) Her insurance has stubbornly declined to cover her Praluent injection Rx so she was not able to continue on it for a few months now We sent in Rx again for Praluent Pen 75 mg SQ every 2 weeks at her last appointment and patient states that she was not able to get it filled at her pharmacy due to insurance restrictions We tried sending in Rx for Rapatha instead - 140 mg SQ Q 2 weeks - but this also appears to have been denied Reinforced low cholesterol diet She will be seeing cardiology in a couple of months anf they may hopefully be able to help patient get this resolved and her Rx approved Will recheck her fasting lipids and labs in 4 months for follow up (5) Elevated LFTs: Code(s): R79.89 - Other specified abnormal findings of blood chemistry Category: Medical Plan: Patient's LFTs improved when she was taken off Rosuvastatin a few months ago but they have gone up significantly since and are still elevated on her recent labs done last week Abdominal US done last year revealed (+) coarsened hepatic echotexture, consistent with fatty infiltration or hepatocellular disease. No focal hepatic mass or intrahepatic biliary dilatation is seen Repeat abdominal US done a few months ago showed no acute changes She also had another abdominal US done at [facility] last week that revealed mild hepatic steatosis. Probable 12 mm hemangioma in the right lobe Her additional work ups, including her liver fibrosis panel, are all still pending at this time Will continue to monitor her LFTs regularly Follow up with GI as scheduled (6) MIGUEL (obstructive sleep apnea): Comment: mild degree of sleep apnea. The AHI was 5/hr and oxygen mitul was 81%. Code(s): G47.33 - Obstructive sleep apnea (adult) (pediatric) Category: Medical Plan: Continue using her CPAP device when sleeping at night daily Follow up with Sleep Medicine as scheduled (7) Multiple thyroid nodules: Code(s): E04.2 - Nontoxic multinodular goiter Category: Medical Plan: These were apparently seen incidentally on neck CTA done a few months ago Her TFTs remain normal on her recent labs She is now seeing endocrinology for this and had thyroid Bx done a few months ago - pathology came out as atypia of undetermined significance (Matheny category III) Follow up with endocrinology as scheduled (8) Chronic constipation: Code(s): K59.09 - Other constipation Category: Medical Plan: She is again encouraged on increased oral fluids and dietary fiber intake States that Lactulose and Docusate 100 mg BID have not helped much previously; she also tried taking OTC Miralax, which she states only helped minimally She was tried by GI on Linzess and Trulance also recently and she states that both Rx did not help She is currently on a combination regimen of Linzess 145 mcg QD, Docusate 100 mg BID and Miralax 17 gm QD Had EGD and colonoscopy done about 3 years ago - (+) tubular adenoma; colonoscopy was otherwise normal Follow up with GI as scheduled (9) Orthostatic hypotension: Code(s): I95.1 - Orthostatic hypotension Category: Medical Plan: 30 days cardiac event monitor done on 07/11/2023 showed sinus rhythm with heart rate ranging from 36 to 131/min, 2 brief paroxysmal SVT episodes, rare PACs and PVCs; two symptom events correlated with sinus tach. Echocardiogram done on the same day (07/11/2023) came out normal Tilt-table testing done on 10/17/2023 showed appropriate heart rate and blood pressure response to tilt Continue Midodrine 10 mg TID She is reminded to stay adequately hydrated as much as she can and to try increasing her oral salt intake as well Follow up with cardiology as scheduled (10) Pruritus: Code(s): L29.9 - Pruritus, unspecified Category: Medical Plan: Patient relates experiencing increased itching all over frequently and she feels that these are likely due to her Midodrine Rx and is inquiring if she can stop taking this medication Have advised patient that she was started on Midodrine by cardiology to help with her orthostasis and stopping this abruptly may not be the best option to take, even if Midodrine is in the responsible for her complaints of recurrent pruritus recently Have advised patient to continue on her current medication for now and to speak to cardiology first whether they are agreeable to her stopping her Midodrine or not Have advised patient that she can take some OTC Benadryl PRN for symptomatic relief (11) GERD (gastroesophageal reflux disease): Code(s): K21.9 - Gastro-esophageal reflux disease without esophagitis Category: Medical Qualifiers: Esophagitis presence: without esophagitis Qualified Code(s): K21.9 - Gastro-esophageal reflux disease without esophagitis Plan: Dietary restrictions reinforced Continue Omeprazole 20 mg QD (12) Edema: Code(s): R60.9 - Edema, unspecified Category: Medical Qualifiers: Edema type: unspecified Qualified Code(s): R60.9 - Edema, unspecified Plan: Continue Furosemide 20 mg Q AM PRN She is advised to take this only as needed for severe edema as her blood pressure is often on the lower end of normal and taking this daily may drive her BP down further and cause her to experience increased dizziness and orthostasis (13) Lumbar degenerative disc disease: Code(s): M51.36 - Other intervertebral disc degeneration, lumbar region Category: Medical Plan: Reinforced activity and weight lifting restrictions She went to physical therapy last year without any significant relief She was seen by [facility] previously and had a diagnostic SI joint injection under fluoroscopic guidance back in September 2021 and started seeing them again recently; has been scheduled for bilateral therapeutic sacroiliac joint injection under sedation but it looks like she stopped going to pain management afterwards She was referred back to [facility] for interventional Tx to help with her chronic pain at her last visit and she was seen again by Dr. Smith in late October 2023 and he was reportedly planning to schedule her for a bilateral therapeutic sacroiliac joint injection under sedation but it appears that patient did not follow-up again for her injections although she claims that she was never scheduled It appears that patient completely forgot about her follow-up and has been experiencing some memory issues in addition to her recent psychiatric hospitalizations for decompensation She was seen again by Dr. Smith a few months ago and was sent for physical therapy, after which she will be scheduled again for back injections Patient started back with physical therapy last week and she is reminded to continue following up with them and with pain management as scheduled Continue Gabapentin 800 mg 3 times a day, Tramadol 50 mg 1-2 tablets every 8 hours as needed (14) Arthralgia: Code(s): M25.50 - Pain in unspecified joint Category: Medical Qualifiers: Joint pain location: other joint Qualified Code(s): M25.59 - Pain in other specified joint Plan: Involving multiple joints, especially over both hips, both elbows and both knees X-rays of the knees done back in August 2021 revealed (+) mild OA changes in both knees; hip and elbow x-rays came out normal Continue Gabapentin 800 mg TID and Tramadol 50 mg TID PRN for pain (15) Migraine: Code(s): G43.909 - Migraine, unspecified, not intractable, without status migrainosus Category: Medical Qualifiers: Intractability: not intractable Migraine type: unspecified Status migrainosus presence: without status migrainosus Qualified Code(s): G43.909 - Migraine, unspecified, not intractable, without status migrainosus Plan: Controlled Continue Topiramate 50 mg QD for LANZA prophylaxis and Sumatriptan 50 mg PRN Follow-up with neurology as scheduled (16) Vitamin D deficiency: Code(s): E55.9 - Vitamin D deficiency, unspecified Category: Medical Plan: Continue Vitamin D3 1000 units QD (17) Memory impairment: Code(s): R41.3 - Other amnesia Category: Medical Plan: She was referred to and seen by neurology and was advised that her memory issues are multifactorial in etiology although she was diagnosed with frontotemporal lobe degeneration and dementia as well Follow up with neurology as scheduled (18) Insomnia: Code(s): G47.00 - Insomnia, unspecified Category: Medical Qualifiers: Insomnia type: primary Qualified Code(s): F51.01 - Primary insomnia Plan: Sleep hygiene reinforced She was taking Trazodone 50 mg daily at bedtime as needed and Prazosin 1 mg Q HS in the past but currently appears to be only taking Melatonin 5 mg Q HS She is also on Aripiprazole 5 mg Q HS (19) Anxiety: Code(s): F41.9 - Anxiety disorder, unspecified Category: Medical Plan: Continue Vraylar 4.5 mg QD and Lorazepam 1 mg TID PRN Followup with psychiatry as scheduled (20) Major depression, recurrent: Code(s): F33.9 - Major depressive disorder, recurrent, unspecified Category: Medical Qualifiers: Active/Remission status: currently active Major depression episode severity: unspecified Qualified Code(s): F33.9 - Major depressive disorder, recurrent, unspecified Plan: Continue Vraylar 4.5 mg QD She was admitted again [place] [facility] [place] 2 weeks ago for psychiatric decompensation and suicidal ideation and has had multiple psychiatric admissions as well in the past for similar reasons Follow-up with Psychiatry as scheduled (21) Obesity (BMI 30-39.9): Code(s): E66.9 - Obesity, unspecified Category: Medical Plan: Reinforced diet; exercise is unrealistic given patient's multiple medical and psychiatric morbidities Plan Follow up in 4 months Orders: Orders UA CC w/rflx Micro + Cult 4 Months R30.0 - Dysuria Complete Blood Count Auto Diff 4 Months D64.9 - Anemia, unspecified Comprehensive Coleman. Panel Fast 4 Months E78.00 - Pure hypercholesterolemia, unspecified Lipid Panel 4 Months E78.00 - Pure hypercholesterolemia, unspecified TSH reflex Free T4 4 Months E78.00 - Pure hypercholesterolemia, unspecified Vitamin D 25-OH Total 4 Months E55.9 - Vitamin D deficiency, unspecified Vitamin B12 and Folate 4 Months E53.8 - Deficiency of other specified B group vitamins
--- OUTSIDE RECORDS SUMMARY | 2025-03-05 14:32 | XMS_ITS | Clinical Summary ---
Author Organization [facility] Address [address] [place] [address] Phone Care Team Providers Care Compliance Monitor Name Role Phone Hung Montelongo MD Primary Care Provider +1 [phone] Allergies No known active allergies Medications VENTOLIN HFA 90 mcg/actuation inhaler TAKE 2 PUFFS INHALED EVERY 6 HOURS NEEDED FOR SHORTNESS OF BREATH OR WHEEZING FOR 30 DAYS 3 Active VITAMIN D3 25 mcg (1,000 unit) capsule TOME WU C PSULA TODOS LOS D 4 Active ferrous sulfate 325 mg (65 mg [place] iron) tablet TOME WU TABLETA TODOS LOS [...] Medical Devices Not on file Insurance [facility] [employer] [facility] Care Teams Compliance Monitor Relationship Specialty Start Date End Date Hung Montelongo MD NPI: [id number] [place] [address] [address] [place] [address] PCP - General Internal Medicine 07/24/23 Additional Source Comments The information contained in this document represents components of the legal health record. It is not the complete legal health record.[facility]
--- OUTSIDE RECORDS SUMMARY | 2025-03-05 14:32 | XMS_ITS | Clinical Summary ---
Author Organization [employer] Address [address] [place] [address] Care Team Providers Care Top Executive Name Role Phone Unavailable Primary Care Provider [...] 06/05/2025 1:00 PM EST Office Visit [facility]ULT [facility] [address] [place] [address] Timo, Chari [address] [place] [address] Health Maintenance Due Date Last Done Comments [...] Most Recently Relevant to Health Maintenance Insurance [facility] MEDICAID STAND ADULT
--- OUTSIDE RECORDS SUMMARY | 2025-03-05 14:32 | XMS_ITS | Encounter Summary ---
Author Organization [employer] Address [address] [facility] 7t [place] [address] Care Team Providers Care Manager Clinical Name Role Phone Unavailable Primary Care Provider Unavailabl e Encounter Details Date Type Department Care Team (Latest Contact Info) Description 11/30/2020 Abstract [facility] CONVERSIONS Dental, Provider, [...] Description 06/05/2025 1:00 PM EST Office Visit [facility] ADULT DENTAL [address] [place] [address] Chari Greenwood [address] [place] [address] documented as of this encounter Visit Diagnoses Not on filedocumented in this encounter
--- OUTSIDE RECORDS SUMMARY | 2025-03-05 14:32 | XMS_ITS | Encounter Summary ---
Author Organization [employer] Address [address] [facility] 7t [place] [address] Care Team Providers Care Jacquard Fixer Name Role Phone Unavailable Primary Care Provider Unavailabl e Encounter Details Date Type Department Care Team (Latest Contact Info) Description 01/20/2022 Abstract [facility] CONVERSIONS Dental, Provider, DDS Social [...] Description 06/05/2025 1:00 PM EST Office Visit [facility] ADULT DENTAL [address] [place] [address] Chari Greenwood [address] [place] [address] documented as of this encounter Visit Diagnoses Not on filedocumented in this encounter
--- OUTSIDE RECORDS SUMMARY | 2025-03-05 14:33 | XMS_ITS | Clinical Summary ---
Author Organization [facility] Address [address] [address] Phone Care Team Providers Care Corporate Events Director Name Role Phone Hung Montelongo MD Primary Care Provider +1- [phone] Allergies Active Allergy Reactions Criticality Noted Date [...] Visit [facility] [address] [place] [address] Alejandro Benz MD [address] [facility] [address] [place] [phone] Health Maintenance Due Date Last Done Comments Breast Cancer Screening 1970 Hepatitis B Vaccine (1 of 3 - 19+ 3-dose series) 11/17 Pneumococcal Vaccine: 50+ Years (1 of 2 - PCV) 989 Colorectal Cancer Screening: Annual FOBT 2018 Colorectal Cancer Screening: Colonoscopy 2018 Colorectal Cancer Screening: Sigmoidoscopy 2018 Influenza Vaccine (#1) 2024 [place] [address] [facility] Medicaid Care Teams Corporate Events Director Relationship Specialty Start Date End Date Hung Montelongo MD [address] [place] [address] PCP - General 05/11/20
== END 2025-03-05 13:16 | disposition home or self-care (01) ==
LOC: HO.HMCH 11:52
PROVIDERS: PCP Internal Medicine; Visit Provider Internal Medicine
DX: E78.00 Pure hypercholesterolemia, unspecified (principal); R78.81 Bacteremia; N13.2 Hydronephrosis with renal and ureteral calculous obstruction; Z90.5 Acquired absence of kidney; R79.89 Other specified abnormal findings of blood chemistry; G47.33 Obstructive sleep apnea (adult) (pediatric); E04.2 Nontoxic multinodular goiter; K59.09 Other constipation; I95.1 Orthostatic hypotension; L29.9 Pruritus, unspecified; K21.9 Gastro-esophageal reflux disease without esophagitis; R60.9 Edema, unspecified; M51.369 Other intervertebral disc degeneration, lumbar region without mention of lumbar back pain or lower extremity pain

== ENCOUNTER → 2025-03-05 11:51 | Outpatient (BNVA) | payer OTHER, SELFPAY | PROVIDERS: PCP Internal Medicine; Visit Provider Internal Medicine | DX: N13.2 Hydronephrosis with renal and ureteral calculous obstruction (principal); R10.A1 Flank pain, right side; R78.81 Bacteremia; E78.00 Pure hypercholesterolemia, unspecified; R79.89 Other specified abnormal findings of blood chemistry; G47.33 Obstructive sleep apnea (adult) (pediatric); E04.2 Nontoxic multinodular goiter; K59.09 Other constipation; I95.1 Orthostatic hypotension; L29.9 Pruritus, unspecified; K21.9 Gastro-esophageal reflux disease without esophagitis; R60.9 Edema, unspecified; M25.59 Pain in other specified joint; G43.909 Migraine, unspecified, not intractable, without status migrainosus; E55.9 Vitamin D deficiency, unspecified; M51.369 Other intervertebral disc degeneration, lumbar region without mention of lumbar back pain or lower extremity pain; R41.3 Other amnesia; F51.01 Primary insomnia; F41.9 Anxiety disorder, unspecified; F33.9 Major depressive disorder, recurrent, unspecified; E66.9 Obesity, unspecified; Z90.5 Acquired absence of kidney; Z96.0 Presence of urogenital implants; Z68.32 Body mass index [BMI] 32.0-32.9, adult | CPT/HCPCS: 96127; 99212 ==

== ENCOUNTER 2025-03-06 13:18 | Outpatient (AMB) | payer OTHER, SELFPAY ==
--- NOTE | 2025-03-06 14:03 | MHC.OFFVIS ---
Intake Visit Reasons: 10w/US/med review Intake Note: Patient is present for 10w/US/Med revieww 02/25 Abdomen US 03/03 Renal US Urology Med: None Antibiotic Allergy: None Blood Thinner: Eliquis Sas Developer Analyst Required: Yes Sas Developer Analyst Language: Pick And Shovel Man Name: Gloria [facility]-certified Information Interpreted: non-clinical & clinical Accompanied by: Self / Same As Patient Allergies ibuprofen (From Motrin) Allergy (Verified 03/06/25 14:04) Unknown acetaminophen Adverse Reaction (Intermediate, Verified 03/06/25 14:04) Liver problems atorvastatin Adverse Reaction (Intermediate, Verified 03/06/25 14:04) elevated LFTs rosuvastatin Adverse Reaction (Intermediate, Verified 03/06/25 14:04) elevated LFTs Citalopram Analogues Adverse Reaction (Unknown, Verified 03/06/25 14:04) Unknown prednisone Adverse Reaction (Unknown, Verified 03/06/25 14:04) Unknown Medication List - Last Reconciled 03/06/25 by Mary Rocha MD albuterol sulfate 90 mcg/actuation (Ventolin HFA) 2 puffs inhalation Q6H PRN apixaban (Eliquis) 5 mg PO BID cariprazine (Vraylar) 4.5 mg PO DAILY cefuroxime axetil 500 mg PO Q12H cholecalciferol (vitamin D3) (Vitamin D3) 25 mcg PO DAILY 90 days diphenhydramine HCl 50 mg PO BEDTIME furosemide (Lasix) 20 mg PO DAILY PRN gabapentin 800 mg PO TID 30 days hyoscyamine sulfate 0.125 mg PO BID PRN lidocaine 5% 1 patch topical DAILY linaclotide (Linzess) 290 mcg PO QAM lorazepam 1 mg PO TID meclizine 25 mg PO TID PRN 30 days melatonin 10 mg PO BEDTIME midodrine 10 mg PO TID@0900,1300,1700 oxycodone 5 mg PO Q8-12H PRN rizatriptan 10 mg PO ONCE PRN MDD 20 MG (MRX1 AFTER 4 HOURS) solifenacin (Vesicare) 10 mg PO DAILY topiramate 25 mg PO DAILY tramadol 100 mg (2 x 50 mg) PO Q8H PRN 30 days trazodone 50 mg PO BEDTIME PRN 30 days verapamil 40 mg PO BID HPI Comments Details: 03/06/2025 Xenia is a 54-year-old female who has history of Kidney stones and is followed for overactive bladder symptoms. She was last seen in the office on 12/27/2024 and had UDS and started on VESIcare 10 mg daily findings detrusor overactivity. Renal ultrasound ordered to monitor kidney stone performed 03/03/2025. History of Present Illness The patient is a 54-year-old female presenting with nephrolithiasis and overactive bladder symptoms. 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 A renal ultrasound was performed on 03/03/25, revealing a 7 mm nonobstructing stone in the lower pole of the right kidney, with the left kidney surgically absent. The patient was initially evaluated as an inpatient due to right kidney obstructive uropathy secondary to a 7 mm UPGA stone, for which a ureteral stent was placed. The stone has since moved into the lower pole of the right kidney, and the plan includes extracorporeal shock wave lithotripsy (ESWL) to break up the stone. Results - Renal ultrasound on 03/03/25: 7 mm nonobstructing stone in the lower pole of the right kidney, left kidney surgically absent. - Urodynamic studies: Detrusor overactivity. Plan 1. Nephrolithiasis - Plan for extracorporeal shock wave lithotripsy (ESWL) to break up the stone. - Patient advised to increase water intake to facilitate stone passage. - Follow-up planned for stent removal in the office after stone passage. 2. Overactive Bladder - Continued management with Vesicare 10 mg daily. 12/27/24--Xenia is here for urodynamics. The patient has complaints of urinary incontinence. Interpretation: During the filling phase there detrusor overactivity and leakage with uninhibited contractions. Stress was not able to be objectively tested. EMG- Appropriate changes in the waveforms were noted through out the study. Discussed OAB care pathway, including fluid management, dietary modifications, including caffeine intake. Bladder control strategies, including pelvic floor exercises. Discessed that urinary leakage can be related to pelvic floor muscles weakness and/or bladder spasms. Treatment options discussed for OAB included anticholinergics/antimuscarinics, neuromodulation, bladder botox injection. In discussion with the patient today she has a right solitary kidney secondary to left nephrectomy from kidney stone disease. I have reviewed recent CT scan noting a nonobstructing right kidney stone, multiple right renal cysts. The patient is followed by nephrology. Plan Vesicare 10 mg daily, monitor kidney stone follow-up renal ultrasound. . [facility] Medical History Solitary kidney, acquired Renal calculus, right Bacteremia Pure hypercholesterolemia Left breast mass Pulmonary nodules Chronic kidney disease, stage III (moderate) Obesity (BMI 30-39.9) Renal cyst Diverticulosis Tubular adenoma Asthma Spondylosis of lumbar spine Sacroiliitis Dizziness of unknown etiology Chronic constipation Hx of schizophrenia Panic attacks PTSD (post-traumatic stress disorder) Dyspareunia Pyelonephritis Ingrown toenail Iron deficiency anemia Major depression, recurrent Anxiety Insomnia Tremor Orthostatic hypotension Incisional hernia without obstruction or gangrene Avascular necrosis of femoral head Bilateral carpal tunnel syndrome Peroneal neuropathy Lumbar degenerative disc disease Vitamin D deficiency GERD (gastroesophageal reflux disease) Migraine Hyperlipidemia Surgical History Hx of lithotripsy History of left nephrectomy (~1999) History of colonoscopy History of surgery Hx of cystoscopy History of bilateral breast reduction surgery History of hysterectomy History of cholecystectomy History of endoscopy (~06/2016) History of bladder repair surgery (~03/2015) S/P cystoscopy (~07/30/12) S/P panniculectomy History of hernia repair (~03/29/10) History of bladder surgery (~10/2009) History of gastric bypass (~2008) History of incisional hernia repair (~1999) Hx of umbilical hernia repair (~1999) S/P laparoscopic sleeve gastrectomy Family History Father Liver cancer Mother Breast cancer Sister Lung cancer Other Mental health problem Social History Household Members: Spouse Housing: Apartment Are you a primary customer care specialist to a significant other at home: No Do you presently have visiting nurse or other home services: Yes Alcohol intake: never Patient Tobacco Use Status: Never used Tobacco e-Cigarette/Vaping Use: Never Used Second Hand Smoke Exposure: No Advance Directives Date on File: 07/12/21 service: No Current occupational status: disabled Sexual orientation: Straight/Heterosexual Gender identity: Female Cognitive needs: No Hearing needs: No Vision needs: Yes Female Reproductive History Menstrual Age of Menarche: 13 Results AMB Urinalysis, Automated UA Leukoctes 0 Asad/uL Last Edit by Lisha Hensley on 03/06/25 16:17 UA Nitrite Negative Last Edit by Lisha Hensley on 03/06/25 16:17 UA Urobilinogen 0.2 mg/dL Last Edit by Lisha Hensley on 03/06/25 16:17 UA Protein 15 mg/dL Last Edit by Lisha Hensley on 03/06/25 16:17 UA pH 6.0 Last Edit by Lisha Hensley on 03/06/25 16:17 UA Blood 25 Montrell/uL Last Edit by Lisha Hensley on 03/06/25 16:17 UA Specific [place] 1.015 Last Edit by Lisha Hensley on 03/06/25 16:17 UA Ketone Negative Last Edit by Lisha Hensley on 03/06/25 16:17 UA Bilirubin 0 mg/dL Last Edit by Lisha Hensley on 03/06/25 16:17 UA Glucose 0 mg/dL Last Edit by Lisha Hensley on 03/06/25 16:17 Results Reviewed Results Reviewed: Date of Service: 03/03/25 Reason for Exam: N20.0 - Calculus of kidney EXAMINATION: US KIDNEY BILATERAL HISTORY: N20.0 - Calculus of kidney TECHNIQUE: Real-time grayscale ultrasound imaging of the kidneys was performed and images were reviewed. COMPARISON: Correlation is made with a CT of the abdomen without contrast dated 02/20/2025. FINDINGS: Right kidney: The right kidney measures 14.2 x 5.8 x 5.9 cm. Renal parenchymal echotexture and thickness are normal. Multiple cysts are seen including a 5.7 x 4.5 x 5.0 cm upper pole cyst, 3.3 x 3.1 x 3.3 cm lower pole cyst, and a 3.8 x 2.9 x 4.0 cm cyst at the lower pole. The lower pole cyst demonstrates septations. There is a 6 x 5 x 7 mm nonobstructing calculus at the lower pole. There is no hydronephrosis. Left Kidney: The left kidney is surgically absent. US/US renal BI IMPRESSION: 7 mm nonobstructing calculus at the lower pole of the right kidney. No hydronephrosis. Multiple right renal cysts as described. Follow-up of the 3.8 x 2.9 x 4.0 cm septated cyst at the lower pole is recommended. Assessment & Plan Assessment & Plan Orders: Orders AMB Urinalysis Automated Today Z13.9 - Encounter for screening, unspecified Medications: New oxycodone Partial Fill upon patient request. 5 mg PO Q8-12H PRN 6 tabs 0RF pain Coding
--- OUTSIDE RECORDS SUMMARY | 2025-03-06 16:10 | XMS_ITS | Encounter Summary ---
Author Organization [employer] Address [address] [facility] 7t [place] [address] Care Team Providers Care Desk Assistant Name Role Phone Unavailable Primary Care Provider Unavailabl e Encounter Details Date Type Department Care Team (Latest Contact Info) Description 11/30/2020 Abstract [facility] CONVERSIONS Dental, Provider, DDS Social History [...] Visit [facility] ADULT DENT[facility] [address] [place] [address] Chari Greenwood [address] [place] [address] documented as of this encounter Visit Diagnoses Not on filedocumented in this encounter
--- OUTSIDE RECORDS SUMMARY | 2025-03-06 16:10 | XMS_ITS | Clinical Summary ---
Author Organization [employer] Address [address] [facility] 7t [place] [address] Care Team Providers Care Training Personnel Supervisor Name Role Phone Unavailable Primary Care [...] Description 06/05/2025 1:00 PM EST Office Visit [facility]ULT [facility] [address] [place] [address] Timo, Chari [address] [place] [address] Health Maintenance Due Date Last Done Comments [...] Most Recently Relevant to Health Maintenance Insurance [facility] MEDICAID STAND ADULT
--- OUTSIDE RECORDS SUMMARY | 2025-03-06 16:10 | XMS_ITS | Clinical Summary ---
Author Organization [facility] Address [address] [address] Phone Care Team Providers Care Automatic Coin Machine Mechanic Name Role Phone Hung Montelongo MD Primary Care Provider +1- [phone] Allergies Active Allergy Reactions Criticality Noted Date [...] Visit [facility] [address] [place] [address] Alejandro Benz MD [address] [facility] [address] [place] [phone] Health Maintenance Due Date Last Done Comments Breast Cancer Screening 1970 Hepatitis B Vaccine (1 of 3 - 19+ 3-dose series) 11/17 Pneumococcal Vaccine: 50+ Years (1 of 2 - PCV) 989 Colorectal Cancer Screening: Annual FOBT 2018 Colorectal Cancer Screening: Colonoscopy 2018 Colorectal Cancer Screening: Sigmoidoscopy 2018 Influenza Vaccine (#1) 2024 [place] [address] [facility] [place] [address] Care Teams Automatic Coin Machine Mechanic Relationship Specialty Start Date End Date Hung Montelongo MD [address] [place] [id number] PCP - General 05/11/20
--- OUTSIDE RECORDS SUMMARY | 2025-03-06 16:10 | XMS_ITS | Clinical Summary ---
Author Organization [facility] Address [address] [place] [address] Phone Care Team Providers Care Lab Support Tech Name Role Phone Hung Montelongo MD Primary Care Provider +1 -[phone] Allergies No known active allergies Medications VENTOLIN HFA 90 mcg/actuation inhaler TAKE 2 PUFFS INHALED EVERY 6 HOURS NEEDED FOR SHORTNESS OF BREATH OR WHEEZING FOR 30 DAYS 3 Active VITAMIN D3 25 mcg (1,000 unit) capsule TOME WU C PSULA TODOS LOS D 4 Active ferrous sulfate 325 mg (65 mg [place] iron) tablet TOME WU TABLETA TODOS LOS [...] topic Medical Devices Not on file Insurance [place] [address] [employer] [facility] Care Teams Lab Support Tech Relationship Specialty Start Date End Date Hung Montelongo MD NPI: [id number] [place] [address] [address] [place] [address] PCP - General Internal Medicine 07/24/23 Additional Source Comments The information contained in this document represents components of the legal health record. It is not the complete legal health record.[facility]
--- OUTSIDE RECORDS SUMMARY | 2025-03-06 16:10 | XMS_ITS | Encounter Summary ---
Author Organization [employer] Address [address] [facility] 7t [place] [address] Care Team Providers Care Supervisor [place] Name Role Phone Unavailable Primary Care Provider Unavailabl e Encounter Details Date Type Department Care Team (Latest Contact Info) Description 01/20/2022 Abstract [facility] CONVERSIONS Dental, Provider, DDS Social [...] Description 06/05/2025 1:00 PM EST Office Visit [facility] ADULT DENTAL [address] [place] [address] Chari Greenwood [address] [place] [address] documented as of this encounter Visit Diagnoses Not on filedocumented in this encounter
== END 2025-03-06 14:46 | disposition home or self-care (01) ==
LOC: HO.HUSH 13:19
PROVIDERS: PCP Internal Medicine; Visit Provider Urology
DX: Z13.9 Encounter for screening, unspecified (principal)

== ENCOUNTER → 2025-03-06 13:18 | Outpatient (BNVA) | payer OTHER, SELFPAY | PROVIDERS: PCP Internal Medicine; Visit Provider Urology | DX: Z13.9 Encounter for screening, unspecified (principal) | CPT/HCPCS: 81003 ==

== ENCOUNTER 2025-03-19 10:05 | Outpatient (REF) | payer OTHER, SELFPAY ==
[2025-03-19 11:03] LABS: D Dimer High Sensitivity 299 NG/ML
[2025-03-19 11:04] LABS: Appearance Urine Clear; Glucose Urine UA Negative (Negative); PH 8.5 (5.0-9.0); Specific Gravity - Urine 1.015 (1.005-1.025); UMIC TRIGGER UACC YES
--- OUTSIDE RECORDS SUMMARY | 2025-03-19 19:03 | XMS_ITS | Encounter Summary ---
Author Organization [employer] Address [address] [facility] [address]t [place] [address] Care Team Providers Care Professional Skateboarder Name Role Phone Unavailable Primary Care Provider Unavailabl e Encounter Details Date Type Department Care Team (Latest Contact Info) Description 01/20/2022 Abstract [facility] CONVERSIONS Dental, Provider, DDS Social History [...] Team (Late st Contact Info) Description 06/05/2025 12:45 PM EST Office Visit [facility] ADULT DENTAL [address] [place] [address] Chari Greenwood [address] [place] [address] documented as of this encounter Visit Diagnoses Not on filedocumented in this encounter
--- OUTSIDE RECORDS SUMMARY | 2025-03-19 19:03 | XMS_ITS | Clinical Summary ---
Author Organization [employer] Address [address] [facility] 7t [place] [address] Care Team Providers Care Sales Driver Name Role Phone Unavailable Primary Care Provider [...] Description 06/05/2025 12:45 PM EST Office Visit [facility] ADULT DENTAL [address] [place] [address] Timo, Chari [address] [place] [address] Health Maintenance Due Date Last Done Comments [...] 2 - PCV) 11/08/2008 11/09/2007 Mammogram 2009 RSV Patients and Patients Aged 60 years or older (1 - Risk 50-74 years 1-dose series) 11/18/2019 COVID-19 Vaccine ( season) 2024 04/12/2023, 01/11/2022, [...] - Td or Tdap) 04/09/2029 04/09/2019, 04/04/2009 Zoster Vaccines Completed 04/03/2022, 02/01/2022 HIB Vaccines [...] Recently Relevant to Health Maintenance Insurance [facility] MEDICAID STAND ADULT
--- OUTSIDE RECORDS SUMMARY | 2025-03-19 19:03 | XMS_ITS | Clinical Summary ---
Author Organization [facility] Address [address] [address] Phone Care Team Providers Care Machinist Wood Name Role Phone Hung Montelongo MD Primary Care Provider +1- [phone] Allergies Active Allergy Reactions Criticality Noted Date [...] Visit [facility] [address] [place] [address] Alejandro Benz MD [address] [facility] [address] [place] [phone] Health Maintenance Due Date Last Done Comments Breast Cancer Screening 1969 Hepatitis B Vaccine (1 of 3 - 19+ 3-dose series) 11/17 Pneumococcal Vaccine: 50+ Years (1 of 2 - PCV) 989 Colorectal Cancer Screening: Annual FOBT 2018 Colorectal Cancer Screening: Colonoscopy 2018 Colorectal Cancer Screening: Sigmoidoscopy 2018 Influenza Vaccine (#1) 2024 [place] [address] [facility] Medicaid Care Teams Machinist Wood Relationship Specialty Start Date End Date Hung Montelongo MD [address] [place] [id number] PCP - General 05/11/20
--- OUTSIDE RECORDS SUMMARY | 2025-03-19 19:03 | XMS_ITS | Encounter Summary ---
Author Organization [employer] Address [address] [facility] 7t [place] [address] Care Team Providers Care Orchard Worker Name Role Phone Unavailable Primary Care Provider Unavailabl e Encounter Details Date Type Department Care Team (Latest Contact Info) Description 11/30/2020 Abstract [facility] CONVERSIONS Dental, Provider, DDS Social History [...] 12:45 PM EST Office Visit [facility] ADULT DENTAL [address] [place] [address] Chari Greenwood [address] [place] [address] documented as of this encounter Visit Diagnoses Not on filedocumented in this encounter
--- OUTSIDE RECORDS SUMMARY | 2025-03-19 19:03 | XMS_ITS | Clinical Summary ---
Author Organization [facility] Address [address] [place] [address] Phone Care Team Providers Care Autistic Teacher Name Role Phone Hung Montelongo MD Primary Care Provider +1 [phone] Allergies No known active allergies Medications VENTOLIN HFA 90 mcg/actuation inhaler TAKE 2 PUFFS INHALED EVERY 6 HOURS NEEDED FOR SHORTNESS OF BREATH OR WHEEZING FOR 30 DAYS 3 Active VITAMIN D3 25 mcg (1,000 unit) capsule TOME WU C PSULA TODOS LOS D 4 Active ferrous sulfate 325 mg (65 mg gambell iron) tablet TOME WU TABLETA TODOS LOS [...] patient's age to complete this topic IPV VACCINES Aged Out No longer eligi ble based on patient's age to complete this topic MENINGOCOCCAL VACCINES (ACWY) Aged Out No longer eligible based on patient's age to complete this topic MENINGOCOCCAL VACCINES (B) Aged Out N o longer eligible based on patient's age to complete this topic Medical Devices Not on file Insurance [place] [address] [facility] [address] [facility] Care Teams Autistic Teacher Relationship Specialty Start Date End Date Hung Montelongo MD [address] [place] [address] [place] [address] PCP - General Internal Medicine 07/24/23 Additional Source Comments The information contained in this document represents components of the legal health record. It is not the complete legal health record.[facility]
== END 2025-03-19 10:06 | disposition home or self-care (01) ==
LOC: HO.LAB 10:05
PROVIDERS: Hospitalist; PCP Internal Medicine; Visit Provider Internal Medicine
DX: I26.94 Multiple subsegmental thrombotic pulmonary emboli without acute cor pulmonale (principal)
CPT/HCPCS: 36415; 81001; 81003; 85379; 85652; 99212

== ENCOUNTER 2025-03-19 10:32 | Outpatient (AMB) | payer OTHER, SELFPAY ==
[2025-03-19 11:33] VITALS: BP 124/72; PULSE 58; TEMP 36.4; O2SAT 98; BMI 32.1
--- NOTE | 2025-03-19 11:33 | MHC.OFFVISWM ---
VS Expanded 03/19/25 11:33 BP 124/72 Blood Pressure Location Rt brachial Blood Pressure Position Sitting Pulse 58 Pulse Source Pulse Oximeter Temp 97.5 F Temperature Source Skin Pulse Oximetry 98 Oxygen Delivery Method Room Air Height 5 ft 2.5 in Weight 178 lb 3.2 oz BMI 32.1 Body Fat % 41.1 Body Fat Mass 73.2 Fat Free Mass 105.0 Visceral Fat Rating 10.0 Body Water % 41.8 Body Water Mass 74.6 Muscle Mass/Score 99.6 Basal Metabolic Rate/Score 1,452 Intake Visit Reasons: (OV) PO LRYGB 06/16/16 Telesales Team Leader Required: Yes Telesales Team Leader Name: Chirag Azevedo, [id number] Information Interpreted: clinical only Allergies ibuprofen (From Motrin) Allergy (Verified 03/06/25 14:04) Unknown acetaminophen Adverse Reaction (Intermediate, Verified 03/06/25 14:04) Liver problems atorvastatin Adverse Reaction (Intermediate, Verified 03/06/25 14:04) elevated LFTs rosuvastatin Adverse Reaction (Intermediate, Verified 03/06/25 14:04) elevated LFTs Citalopram Analogues Adverse Reaction (Unknown, Verified 03/06/25 14:04) Unknown prednisone Adverse Reaction (Unknown, Verified 03/06/25 14:04) Unknown Medication List - Last Reconciled 03/19/25 by CJ Cheng [Adult pull ups As directed] albuterol sulfate 90 mcg/actuation (Ventolin HFA) 2 puffs inhalation Q6H PRN apixaban (Eliquis) 5 mg PO BID cariprazine (Vraylar) 4.5 mg PO DAILY cefuroxime axetil 500 mg PO Q12H cholecalciferol (vitamin D3) (Vitamin D3) 25 mcg PO DAILY 90 days diphenhydramine HCl 50 mg PO BEDTIME furosemide (Lasix) 20 mg PO DAILY PRN gabapentin 800 mg PO TID 30 days hyoscyamine sulfate 0.125 mg PO BID PRN lidocaine 5% 1 patch topical DAILY linaclotide (Linzess) 290 mcg PO QAM lorazepam 1 mg PO TID meclizine 25 mg PO TID PRN 30 days melatonin 10 mg PO BEDTIME midodrine 10 mg PO TID@0900,1300,1700 oxycodone 5 mg PO Q8-12H PRN rizatriptan 10 mg PO ONCE PRN MDD 20 MG (MRX1 AFTER 4 HOURS) solifenacin (Vesicare) 10 mg PO DAILY topiramate 25 mg PO DAILY tramadol 100 mg (2 x 50 mg) PO Q8H PRN 30 days trazodone 50 mg PO BEDTIME PRN 30 days verapamil 40 mg PO BID HPI Comments Details: This is a 53 yo F who is s/p RYGB 06/16/2016. Presents for 8 year post op visit. Weight gain of 23lbs since last OV 6 months ago. I'm gaining weight and whenever I eat I feel a lot of pain No N/V. Denies tobacco, NSAIDs. She continues to take pantoprazole. She reports improvement in reflux with this. She is scheduled for colonoscopy and endoscopy with GI in May. Present meal plan includes: 1 scoop Pure Protein in 8oz 1% milk- 33g x 2, has been using almond milk instead sometimes will have a meal but sometimes not- does not feel hungry will drink water and zero calorie flavor enhancer Goal of 70g/day. Exercise routine includes: recommended Sit and Be Fit or MM videos, trying to do 3x/week has been doing some Kushal classes leg weakness has improved, has been walking on treadmill has chronic pain, follows with pain management [facility] Medical History Solitary kidney, acquired Renal calculus, right Bacteremia Pure hypercholesterolemia Left breast mass Pulmonary nodules Chronic kidney disease, stage III (moderate) Obesity (BMI 30-39.9) Renal cyst Diverticulosis Tubular adenoma Asthma Spondylosis of lumbar spine Sacroiliitis Dizziness of unknown etiology Chronic constipation Hx of schizophrenia Panic attacks PTSD (post-traumatic stress disorder) Dyspareunia Pyelonephritis Ingrown toenail Iron deficiency anemia Major depression, recurrent Anxiety Insomnia Tremor Orthostatic hypotension Incisional hernia without obstruction or gangrene Avascular necrosis of femoral head Bilateral carpal tunnel syndrome Peroneal neuropathy Lumbar degenerative disc disease Vitamin D deficiency GERD (gastroesophageal reflux disease) Migraine Hyperlipidemia Surgical History Hx of lithotripsy History of left nephrectomy (~1999) History of colonoscopy History of surgery Hx of cystoscopy History of bilateral breast reduction surgery History of hysterectomy History of cholecystectomy History of endoscopy (~06/2016) History of bladder repair surgery (~03/2015) S/P cystoscopy (~07/30/12) S/P panniculectomy History of hernia repair (~03/29/10) History of bladder surgery (~10/2009) History of gastric bypass (~2008) History of incisional hernia repair (~1999) Hx of umbilical hernia repair (~1999) S/P laparoscopic sleeve gastrectomy Family History Father Liver cancer Mother Breast cancer Sister Lung cancer Other Mental health problem Social History Household Members: Spouse Housing: Apartment Are you a primary medicare contact specialist to a significant other at home: No Do you presently have visiting nurse or other home services: Yes Alcohol intake: never Patient Tobacco Use Status: Never used Tobacco e-Cigarette/Vaping Use: Never Used Second Hand Smoke Exposure: No Advance Directives Date on File: 07/12/21 service: No Current occupational status: disabled Sexual orientation: Straight/Heterosexual Gender identity: Female Cognitive needs: No Hearing needs: No Vision needs: Yes Female Reproductive History Menstrual Age of Menarche: 13 Physical Exam Vital Signs: Last Vital Signs Temp 97.5 F 03/19/25 11:33 Pulse 58 03/19/25 11:33 BP 124/72 03/19/25 11:33 Pulse Ox 98 03/19/25 11:33 Oxygen Delivery Method Room Air 03/19/25 11:33 BMI result Body Mass Index 32.1 Assessment & Plan Assessment & Plan (1) Overweight (BMI 25.0-29.9): Code(s): E66.3 - Overweight Category: Medical (2) History of gastric bypass: Onset Date: ~2008 Comment: revision of GBP Jun 2016 Code(s): Z98.84 - Bariatric surgery status Category: Surgical Plan UGI results reviewed. Pt will go for endoscopy in May. Discussed that she was likely low in protein intake most days quinn if using UAM. Recommended making sure she eats 1 meal per day of 4f protein in addition to 2 shakes, to ensure adequate protein. We discussed that she was limited in exercise. She asked about [facility] meds. I told her I would potentially be willing to prescribe if her PCP was in agreement for GLP1 meds. She will ask him later this week. She asked again about her left flank excess skin. I told her that I had previously referred her to [facility]. She reports she can't remember what she was told by them. I gave her their contact info to reach out and ask about followup. RTC 6mo.
== END 2025-03-19 12:28 | disposition home or self-care (01) ==
LOC: HO.HBS 10:32
PROVIDERS: PCP Internal Medicine; Visit Provider Physician Assistant Surgical
DX: E66.9 Obesity, unspecified (principal); Z68.32 Body mass index [BMI] 32.0-32.9, adult; Z98.84 Bariatric surgery status
CPT/HCPCS: 99213

== ENCOUNTER 2025-04-02 06:48 | Day surgery (SDC) | payer OTHER, SELFPAY ==
[2025-03-31 15:53] VITALS: BMI 32.4
--- NOTE | ~2025-04-02 | XR_ITS ---
EXAMINATION: XR ABDOMEN 1 VIEW (KUB) HISTORY: pre right ESWL COMPARISON: Comparison is made with the prior examination dated 06/09/2023. Correlation is also made with a CT of the abdomen dated 02/20/2025. FINDINGS: Two supine views of the abdomen are submitted. The bowel gas pattern is unremarkable, without evidence of mechanical obstruction. A right nephroureteral stent is seen in place. There is a 6 mm calcification overlying the lower pole of the right renal shadow. There are multiple surgical clips in the upper abdomen. There are no abnormal soft tissue masses. The bones are intact. XR/XR KUB IMPRESSION: Right nephroureteral stent in place. 6 mm calcification overlying the lower pole of the right renal shadow. Electronically signed by: Vincenzo Betancourt MD 04/02/2025 07:19 AM [facility]
[2025-04-02 07:24] VITALS: BP 120/75; PULSE 56; RESP 16; TEMP 36.2; O2SAT 98
[2025-04-02] MEDS: Lactated Ringers 500 ML 999 ML IV (07:33)
[2025-04-02] MEDS: Lactated Ringers 1,000 ML 100 ML IVCONT (07:34)
--- NOTE | 2025-04-02 07:54 | HO.ANESPROP2 ---
Documented by User: Magali Mckay NP 03/31/25 10:02 HPI - Anesthesia Eval Consult details Narrative: 54 yr old female for right Lithotripsy ESW s/p cystoscopy 02/21/25 with GA LMA size 4 Orthostatic hypotension: prior cardiac testing included -Cardiac event monitor was done on 07/11/2023 for 30 days showing sinus rhythm with heart rate range 36 to 131, 2 brief paroxysmal SVT episodes, rare PACs and PVCs. Two symptom events correlated with sinus tach. -Echocardiogram was done 07/11/2023 which was normal study. -Tilt-table test done on 10/17/2023 showed appropriate heart rate and blood pressure response to tilt. This time instructed to take midodrine t.i.d., with meals. MIGUEL on CPAP H/O PE 01/2024: eliquis was stopped per Jan 2025 pulmo note PMFSH Active Problems Active Problems: All Active Problems Hydronephrosis with urinary obstruction due to ureteral calculus (Acute) Renal cyst, acquired (Acute) OAB (overactive bladder) (Acute) IBS (irritable bowel syndrome) (Acute) Umbilical mass (Acute) Periorbital cellulitis of right eye (Acute) Periodic limb movements of sleep (Acute) Fatigue due to sleep pattern disturbance (Acute) Edema (Acute) Incarcerated umbilical hernia (Acute) Pruritus (Acute) Encounter for well woman exam with routine gynecological exam (Acute) Umbilical hernia (Acute) Multiple thyroid nodules (Acute) Thyroid nodule (Acute) Abdominal wall pain in left flank (Acute) Pulmonary embolism (Chronic) Left-sided weakness (Acute) Shortness of breath (Acute) Cough (Acute) Chest pain (Acute) Depression with suicidal ideation (Acute) Ventral hernia (Acute) Flank hernia (Acute) Sacroiliac joint dysfunction of both sides (Acute) Abdominal pannus (Acute) Depression (Acute) Hypotension (Acute) Lower urinary tract symptoms (Acute) Osteoporosis screening (Acute) Paresthesia (Acute) Recurrent urinary tract infection (Acute) Orthostatic dizziness (Acute) Symptomatic abdominal panniculus (Acute) Panniculitis (Acute) Bilateral leg weakness (Acute) Obesity (Acute) Excess skin (Acute) Urinary incontinence (Acute) Urinary frequency (Acute) MDD (major depressive disorder), recurrent, severe, with psychosis (Acute) Post traumatic stress disorder (PTSD) (Acute) Arthralgia (Acute) Knee pain, bilateral (Acute) Hip pain, bilateral (Acute) Bilateral elbow joint pain (Acute) Abdominal wall mass (Acute) Transaminitis (Acute) Renal cyst (Acute) Memory impairment (Acute) Left lumbar radiculopathy (Acute) Sacroiliac joint pain (Acute) Overweight (Acute) Colon cancer screening (Acute) Constipation (Acute) MIGUEL (obstructive sleep apnea) (Acute) Nephrolithiasis (Acute) Dyspareunia, female (Acute) Painful sexual intercourse (Acute) Skin laxity (Acute) Dysuria (Acute) Overweight (BMI 25.0-29.9) (Acute) Pure hypercholesterolemia (Acute) Left breast mass (Acute) Asthma (Acute) Pulmonary nodules (Acute) PTSD (post-traumatic stress disorder) (Acute) Obesity (BMI 30-39.9) (Acute) Renal cyst (Acute) Diverticulosis (Acute) Tubular adenoma (Acute) Spondylosis of lumbar spine (Acute) Sacroiliitis (Acute) Dizziness of unknown etiology (Acute) Chronic constipation (Acute) History of gastric bypass (Acute ~2008) Dyspareunia (Acute) Pyelonephritis (Acute) Ingrown toenail (Acute) Iron deficiency anemia (Acute) Major depression, recurrent (Acute) Anxiety (Acute) Insomnia (Acute) Tremor (Acute) Orthostatic hypotension (Acute) Incisional hernia without obstruction or gangrene (Acute) Avascular necrosis of femoral head (Acute) Bilateral carpal tunnel syndrome (Acute) Peroneal neuropathy (Acute) Lumbar degenerative disc disease (Acute) Vitamin D deficiency (Acute) GERD (gastroesophageal reflux disease) (Acute) Migraine (Acute) Hyperlipidemia (Acute) Past Medical History Medical History History of electroconvulsive therapy (05/06/24) Solitary kidney, acquired Renal calculus, right Bacteremia Pure hypercholesterolemia Left breast mass Pulmonary nodules Chronic kidney disease, stage III (moderate) Obesity (BMI 30-39.9) Renal cyst Diverticulosis Tubular adenoma Asthma Spondylosis of lumbar spine Sacroiliitis Dizziness of unknown etiology Chronic constipation Hx of schizophrenia Panic attacks PTSD (post-traumatic stress disorder) Dyspareunia Pyelonephritis Ingrown toenail Iron deficiency anemia Major depression, recurrent Anxiety Insomnia Tremor Orthostatic hypotension Incisional hernia without obstruction or gangrene Avascular necrosis of femoral head Bilateral carpal tunnel syndrome Peroneal neuropathy Lumbar degenerative disc disease Vitamin D deficiency GERD (gastroesophageal reflux disease) Migraine Hyperlipidemia Family History Family History Father Liver cancer Mother Breast cancer Sister Lung cancer Other Mental health problem Family history of problems with anesthesia: No Surgical History Surgical History Hx of umbilical hernia repair (10/02/24) History of surgery (10/17/24) Hx of lithotripsy History of left nephrectomy (~1999) History of colonoscopy History of surgery Hx of cystoscopy History of bilateral breast reduction surgery History of hysterectomy History of cholecystectomy History of endoscopy (~06/2016) History of bladder repair surgery (~03/2015) S/P cystoscopy (~07/30/12) S/P panniculectomy History of hernia repair (~03/29/10) History of bladder surgery (~10/2009) History of gastric bypass (~2008) History of incisional hernia repair (~1999) Hx of umbilical hernia repair (~1999) S/P laparoscopic sleeve gastrectomy History of Problems with Anesthesia: No Social History Social History Household Members: Spouse Housing: Apartment Are you a primary manager intensive care to a significant other at home: No Do you presently have visiting nurse or other home services: Yes Alcohol intake: never Patient Tobacco Use Status: Never used Tobacco e-Cigarette/Vaping Use: Never Used Second Hand Smoke Exposure: No Use of substances other than those prescribed or required for medical reasons: No Have you been hit, kicked, punched, or otherwise hurt by someone within the past year? If so, by whom?: No Are you DNR?: No Advance Directives: No Advance Directives Information Provided: Yes Advance Directives on File: No Advance Directives Date on File: 07/12/21 service: No Current occupational status: disabled Sexual orientation: Straight/Heterosexual Gender identity: Female Cognitive needs: No Hearing needs: No Vision needs: Yes Meds Allergies Allergy/AdvReac Type Severity Reaction Status Date / Time ibuprofen (From Motrin) Allergy Unknown Verified 03/06/25 14:04 acetaminophen AdvReac Intermediate Liver Verified 03/06/25 14:04 problems atorvastatin AdvReac Intermediate elevated Verified 03/06/25 14:04 LFTs Citalopram Analogues AdvReac Intermediate Itching Verified 03/31/25 15:59 prednisone AdvReac Intermediate Bloating Verified 03/31/25 15:59 rosuvastatin AdvReac Intermediate elevated Verified 03/06/25 14:04 LFTs Home Medications ?Medication ?Instructions ?Recorded ?Confirmed ?Last Taken ?Type albuterol sulfate 90 mcg/actuation 2 puff inhalation Q6H PRN 02/11/25 03/31/25 04/02/25 History aerosol inhaler (Ventolin HFA) Shortness Of Breath Or Wheezing furosemide 20 mg tablet (Lasix) 20 mg PO DAILY PRN Edema 02/11/25 03/31/25 Unknown History cariprazine 4.5 mg capsule 4.5 mg PO DAILY 02/21/25 03/31/25 Unknown History (Vraylar) diphenhydramine HCl 25 mg capsule 50 mg PO BEDTIME 02/21/25 03/31/25 Unknown History lorazepam 1 mg tablet 1 mg PO TID severe Anxiety 02/21/25 03/31/25 04/02/25 History melatonin 5 mg tablet 10 mg PO BEDTIME Insomnia 02/21/25 03/31/25 Unknown History rizatriptan 10 mg disintegrating 10 mg PO ONCE PRN Migraine Headache 02/21/25 03/31/25 Unknown History tablet topiramate 25 mg tablet 25 mg PO DAILY 02/21/25 03/31/25 Unknown History verapamil 40 mg tablet 40 mg PO BID 02/21/25 03/31/25 04/02/25 History Exam Pertinent Lab Results Pertinent Lab Results: Laboratory Tests 02/27/25 11:03 WBC 8.9 RBC 4.08 L Hgb 13.2 Hct 41.2 D Plt Count 302 D Sodium 143 Potassium 4.1 Chloride 109 H Carbon Dioxide 27 BUN 19 H Creatinine 1.20 Assessment and Plan Final Anesthetic Review Family History of Problems with Anesthesia: No History of Problems with Anesthesia: No Documented by User: Gloria Willett DO 04/02/25 07:55 [facility] Past Medical History Medical History History of electroconvulsive therapy (05/06/24) Solitary kidney, acquired Renal calculus, right Bacteremia Pure hypercholesterolemia Left breast mass Pulmonary nodules Chronic kidney disease, stage III (moderate) Obesity (BMI 30-39.9) Renal cyst Diverticulosis Tubular adenoma Asthma Spondylosis of lumbar spine Sacroiliitis Dizziness of unknown etiology Chronic constipation Hx of schizophrenia Panic attacks PTSD (post-traumatic stress disorder) Dyspareunia Pyelonephritis Ingrown toenail Iron deficiency anemia Major depression, recurrent Anxiety Insomnia Tremor Orthostatic hypotension Incisional hernia without obstruction or gangrene Avascular necrosis of femoral head Bilateral carpal tunnel syndrome Peroneal neuropathy Lumbar degenerative disc disease Vitamin D deficiency GERD (gastroesophageal reflux disease) Migraine Hyperlipidemia Family History Family History Father Liver cancer Mother Breast cancer Sister Lung cancer Other Mental health problem Family history of problems with anesthesia: No Surgical History Surgical History Hx of umbilical hernia repair (10/02/24) History of surgery (10/17/24) Hx of lithotripsy History of left nephrectomy (~1999) History of colonoscopy History of surgery Hx of cystoscopy History of bilateral breast reduction surgery History of hysterectomy History of cholecystectomy History of endoscopy (~06/2016) History of bladder repair surgery (~03/2015) S/P cystoscopy (~07/30/12) S/P panniculectomy History of hernia repair (~03/29/10) History of bladder surgery (~10/2009) History of gastric bypass (~2008) History of incisional hernia repair (~1999) Hx of umbilical hernia repair (~1999) S/P laparoscopic sleeve gastrectomy History of Problems with Anesthesia: No Social History Social History Household Members: Spouse Housing: Apartment Are you a primary manager intensive care to a significant other at home: No Do you presently have visiting nurse or other home services: Yes Alcohol intake: never Patient Tobacco Use Status: Never used Tobacco e-Cigarette/Vaping Use: Never Used Second Hand Smoke Exposure: No Use of substances other than those prescribed or required for medical reasons: No Have you been hit, kicked, punched, or otherwise hurt by someone within the past year? If so, by whom?: No Are you DNR?: No Advance Directives: No Advance Directives Information Provided: Yes Advance Directives on File: No Advance Directives Date on File: 07/12/21 service: No Current occupational status: disabled Sexual orientation: Straight/Heterosexual Gender identity: Female Cognitive needs: No Hearing needs: No Vision needs: Yes Meds Allergies Allergy/AdvReac Type Severity Reaction Status Date / Time ibuprofen (From Motrin) Allergy Unknown Verified 03/06/25 14:04 acetaminophen AdvReac Intermediate Liver Verified 03/06/25 14:04 problems atorvastatin AdvReac Intermediate elevated Verified 03/06/25 14:04 LFTs Citalopram Analogues AdvReac Intermediate Itching Verified 03/31/25 15:59 prednisone AdvReac Intermediate Bloating Verified 03/31/25 15:59 rosuvastatin AdvReac Intermediate elevated Verified 03/06/25 14:04 LFTs Home Medications ?Medication ?Instructions ?Recorded ?Confirmed ?Last Taken ?Type albuterol sulfate 90 mcg/actuation 2 puff inhalation Q6H PRN 02/11/25 03/31/25 04/02/25 History aerosol inhaler (Ventolin HFA) Shortness Of Breath Or Wheezing furosemide 20 mg tablet (Lasix) 20 mg PO DAILY PRN Edema 02/11/25 03/31/25 Unknown History cariprazine 4.5 mg capsule 4.5 mg PO DAILY 02/21/25 03/31/25 Unknown History (Vraylar) diphenhydramine HCl 25 mg capsule 50 mg PO BEDTIME 02/21/25 03/31/25 Unknown History lorazepam 1 mg tablet 1 mg PO TID severe Anxiety 02/21/25 03/31/25 04/02/25 History melatonin 5 mg tablet 10 mg PO BEDTIME Insomnia 02/21/25 03/31/25 Unknown History rizatriptan 10 mg disintegrating 10 mg PO ONCE PRN Migraine Headache 02/21/25 03/31/25 Unknown History tablet topiramate 25 mg tablet 25 mg PO DAILY 02/21/25 03/31/25 Unknown History verapamil 40 mg tablet 40 mg PO BID 02/21/25 03/31/2525 History Exam Exam Date and Time: 04/02/25 0745 Height,Weight and Vital Signs: Height 5 ft 3 in Weight 83.007 kg Vital Signs Temperature 97.2 F 04/02/25 07:24 Pulse Rate 56 04/02/25 07:24 Respiratory Rate 16 04/02/25 07:24 Blood Pressure 120/75 04/02/25 07:24 Pulse Oximetry 98 04/02/25 07:24 Oxygen Delivery Method Room Air 04/02/25 07:24 Temperature 97.2 F 04/02/25 07:24 Pulse Rate 56 04/02/25 07:24 Respiratory Rate 16 04/02/25 07:24 Blood Pressure 120/75 04/02/25 07:24 Pulse Oximetry 98 04/02/25 07:24 Oxygen Delivery Method Room Air 04/02/25 07:24 Airway Mallampati Class: I TM Dist: <=3cm Neck ROM: Full Loose/Missing/Broken Teeth: Yes (2 missing molars) Heart: S1S2 Lungs: CTAB Assessment and Plan Assessment Anesthesia Assessment: Anesthesia Plan Discussed and Chart Reviewed Final Anesthetic Review Family History of Problems with Anesthesia: No History of Problems with Anesthesia: No NPO: Yes ASA Class: III Final Preanesthetic Review: No Changes in Pt Med Stat, Meds/Allgs Chart Reviewed, Consent Obtained/Reviewed (brownfield redevelopment specialist at bedside for translation) and Anes Risks/Benef Reviewed Patient Risk: Intermediate Procedure Risk: Low Anesthetic Plan Anesthetic Plan: MAC: and Agree w/ Assess. and Plan Disposition: Standard PACU
--- NOTE | 2025-04-02 09:03 | MHC.SHP ---
Pre-Procedural Eval Section A - 24 Hr Update-Section A only Date of Service: 04/02/25 The patient is an INPATIENT: No The patient has been examined within 24 hours of the surgical procedure. The History & Physical has been completed within 30 days and I have reviewed it.: Yes Section B - Complete if H&P > 30 days Chief Complaint: Calculus of kidney, right Allergies: Allergies Allergy/AdvReac Type Severity Reaction Status Date / Time ibuprofen (From Motrin) Allergy Unknown Verified 03/06/25 14:04 acetaminophen AdvReac Intermediate Liver Verified 03/06/25 14:04 problems atorvastatin AdvReac Intermediate elevated Verified 03/06/25 14:04 LFTs Citalopram Analogues AdvReac Intermediate Itching Verified 03/31/25 15:59 prednisone AdvReac Intermediate Bloating Verified 03/31/25 15:59 rosuvastatin AdvReac Intermediate elevated Verified 03/06/25 14:04 LFTs Plan Diagnosis/Plan: Unchanged I have reviewed the history and physical and performed a pertinent physical examination on my patient. No changes have occurred unless specified. Right ESWL. Discussed risks to include but not limited to, blood in the urine, bruising to the skin, kidney hematoma, possible need to repeat procedure if stone is not completely fragmented. Time Spent With Patient Time: Total time managing care of this patient today ____ minutes.
--- NOTE | 2025-04-02 09:04 | W.PM.OPN ---
Operative Note Operative Note Date of Service: 04/02/25 Narrative: PreOperative Diagnosis:? ? Solitary Right Renal stone, ureteral stent present Post Operative Diagnosis:?Solitary Right Renal stone, ureteral stent present Procedure:?Right? ESWL Surgeon:?Dr Mary Rocha Anesthesia:? MAC Indications for procedure: The patient understands there is a risk of bruising or hematoma to the kidney, infection, and stone migration following the procedure and subsequent intervention may be required.? - Imaging 7x6 mm stone Procedure: After informed consent was verified the patient was brought to the operating room and placed in a supine position.? Anesthesia was performed per protocol. Safety pause time-out was performed. Imaging was displayed in the room and laterality confirmed. ESWL was performed.?The stone was visualized on both fluoroscopy and ultrasound.? Shockwave lithotripsy was performed, with a maximum rate of 120 hertz. After the first 300 shocks a pause for 3 minutes was completed.? A total of 2500 shocks to a maximum of power of 20 with a maximum rate of 120 hertz.? Good fragmentation of the stone was appreciated. The patient tolerated the procedure well and was transferred to the recovery area upon completion. Complications: None
[2025-04-02 10:03] VITALS: BP 116/71; PULSE 60; RESP 16; TEMP 36.3; O2SAT 97
[2025-04-02 10:18] VITALS: BP 132/81; PULSE 57; RESP 16; O2SAT 100
[2025-04-02 10:33] VITALS: BP 136/75; PULSE 54; RESP 16; TEMP 36.3; O2SAT 99
[2025-04-02] MEDS: oxyCODONE HCl Immed Release 5 MG TABLET PO (10:54)
== END 2025-04-02 11:47 | disposition home or self-care (01) ==
PROVIDERS: PCP Internal Medicine; Visit Provider Urology
PROC: (CPT 50590; principal; 2025-04-02 08:30)
DX: N20.0 Calculus of kidney (principal); Z96.0 Presence of urogenital implants; Z87.442 Personal history of urinary calculi; N18.30 Chronic kidney disease, stage 3 unspecified; N32.81 Overactive bladder; Z90.5 Acquired absence of kidney; N28.1 Cyst of kidney, acquired; E78.00 Pure hypercholesterolemia, unspecified; K21.9 Gastro-esophageal reflux disease without esophagitis; R25.1 Tremor, unspecified; J45.909 Unspecified asthma, uncomplicated; F33.9 Major depressive disorder, recurrent, unspecified; F43.10 Post-traumatic stress disorder, unspecified; F41.9 Anxiety disorder, unspecified; M87.859 Other osteonecrosis, unspecified femur; G57.30 Lesion of lateral popliteal nerve, unspecified lower limb; Z79.01 Long term (current) use of anticoagulants; Z79.899 Other long term (current) drug therapy; Z88.6 Allergy status to analgesic agent; Z88.8 Allergy status to other drugs, medicaments and biological substances; D50.9 Iron deficiency anemia, unspecified; E55.9 Vitamin D deficiency, unspecified; Z90.49 Acquired absence of other specified parts of digestive tract; Z98.84 Bariatric surgery status; Z98.890 Other specified postprocedural states
CPT/HCPCS: 50590; 74018; J0690; J1100; J1938; J2003; J2250; J2405; J2704

== ENCOUNTER → 2025-04-02 06:48 | Outpatient (BNV) | payer OTHER, SELFPAY | PROVIDERS: PCP Internal Medicine; Visit Provider Urology | DX: N20.0 Calculus of kidney (principal) | CPT/HCPCS: 50590 ==

== ENCOUNTER → 2025-04-02 06:59 | Outpatient (BNV) | payer OTHER, SELFPAY | PROVIDERS: PCP Internal Medicine; Visit Provider Radiology Diagnostic Radiology | DX: N28.89 Other specified disorders of kidney and ureter (principal); Z96.0 Presence of urogenital implants | CPT/HCPCS: 74018 ==

== ENCOUNTER 2025-04-09 10:27 | Outpatient (AMB) | payer OTHER, SELFPAY ==
[2025-04-09 10:42] VITALS: BP 110/82; PULSE 76; O2SAT 95; BMI 32.9
--- NOTE | 2025-04-09 10:42 | A.OFFVIS_ITS ---
Vital Signs 04/09/25 10:42 Height 5 ft 3 in Weight 186 lb BMI 32.9 BP 110/82 Blood Pressure Location Lt brachial Position Sitting Pulse 76 Pulse Source Pulse Oximeter Pulse Oximetry (%) 95 Oxygen Delivery Method Room Air Intake Visit Reasons: Follow up Brush Finisher Required: No Accompanied by: Self / Same As Patient Allergies ibuprofen (From Motrin) Allergy (Verified 04/09/25 10:43) Unknown acetaminophen Adverse Reaction (Intermediate, Verified 04/09/25 10:43) Liver problems atorvastatin Adverse Reaction (Intermediate, Verified 04/09/25 10:43) elevated LFTs Citalopram Analogues Adverse Reaction (Intermediate, Verified 04/09/25 10:43) Itching prednisone Adverse Reaction (Intermediate, Verified 04/09/25 10:43) Bloating rosuvastatin Adverse Reaction (Intermediate, Verified 04/09/25 10:43) elevated LFTs HPI Comments Details: 54 year old female with bilateral hip pain presents for a f/u of MIGUEL on cpap therapy. 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 PMH: Pt. had a biopsy July 2024 of 1.7cm l.thyroid inferior nodule,and l. 2.2cm superior nodule which is of [place] Cat III, she is being followed by Endocrine. MIGEUL compliance report reviewed with pt. today 12/2024- 03/2025 Total avg use is 78/90 days and >4 hours is 78% avg use is 6hours and 12min Press 7.8cmH20 Leaks are 0.9/min AHI is 5.8/hr. She washes her mask, rinses hoses, changes filters and fills reservoir with water. She feels pressures are good, she removes the mask from her face due to feeling as if she is suffocating at night. She uses her machine daily, however it makes her cough and her symptoms of asthma worsen, she is using her inhalers prn. She says the water in her reservoir dries up at night and she must set an alarm so she can refill the reservoir nightly. She feels well with the use of her CPAP machine. Migraines have decreased since starting vraylar. She has FTD and her memory tends to be poor at baseline. She c/o drooling, neck tightness- prone to right laterocollis, falls d/t tripping or losing her balance. She goes to bed at 8:30pm and wakes up at 7am, 4-5x for the bathroom, she is on diuretics for bilateral lower ext. edema. She has panic attacks, anxiety and depression, and sees her therapist 2x a month, with psychiatry for medication management. RLS: She has the need to move her legs all night long, shaking them helps due to paresthesias, cramps, and she has an uncomfortable radiataing sensations, she takes gabapentin 800mg PO TID and this helps her fall asleep and stay asleep. [facility] Medical History Chronic kidney disease, stage 3 (11/23/20) History of electroconvulsive therapy (05/06/24) Solitary kidney, acquired Renal calculus, right Bacteremia Pure hypercholesterolemia Left breast mass Pulmonary nodules Chronic kidney disease, stage III (moderate) Obesity (BMI 30-39.9) Renal cyst Diverticulosis Tubular adenoma Asthma Spondylosis of lumbar spine Sacroiliitis Dizziness of unknown etiology Chronic constipation Hx of schizophrenia Panic attacks PTSD (post-traumatic stress disorder) Dyspareunia Pyelonephritis Ingrown toenail Iron deficiency anemia Major depression, recurrent Anxiety Insomnia Tremor Orthostatic hypotension Incisional hernia without obstruction or gangrene Avascular necrosis of femoral head Bilateral carpal tunnel syndrome Peroneal neuropathy Lumbar degenerative disc disease Vitamin D deficiency GERD (gastroesophageal reflux disease) Migraine Hyperlipidemia Surgical History Hx of umbilical hernia repair (10/02/24) History of surgery (10/17/24) Hx of lithotripsy History of left nephrectomy (~1999) History of colonoscopy History of surgery Hx of cystoscopy History of bilateral breast reduction surgery History of hysterectomy History of cholecystectomy History of endoscopy (~06/2016) History of bladder repair surgery (~03/2015) S/P cystoscopy (~07/30/12) S/P panniculectomy History of hernia repair (~03/29/10) History of bladder surgery (~10/2009) History of gastric bypass (~2008) History of incisional hernia repair (~1999) Hx of umbilical hernia repair (~1999) S/P laparoscopic sleeve gastrectomy Family History Father Liver cancer Mother Breast cancer Sister Lung cancer Other Mental health problem Social History Household Members: Spouse Housing: Apartment Are you a primary manager critical care unit to a significant other at home: No Do you presently have visiting nurse or other home services: Yes Alcohol intake: never Patient Tobacco Use Status: Never used Tobacco e-Cigarette/Vaping Use: Never Used Second Hand Smoke Exposure: No Advance Directives Date on File: 07/12/21 service: No Current occupational status: disabled Sexual orientation: Straight/Heterosexual Gender identity: Female Cognitive needs: No Hearing needs: No Vision needs: Yes Female Reproductive History Menstrual Age of Menarche: 13 Physical Exam Vital Signs: Last Vital Signs Pulse 76 04/09/25 10:42 BP 110/82 04/09/25 10:42 Pulse Ox 95 04/09/25 10:42 Oxygen Delivery Method Room Air 04/09/25 10:42 BMI result Body Mass Index 32.9 Const General: cooperative, comfortable and no acute distress Nutritional Appearance: average body habitus and other (BMI is 29) Orientation/consciousness: patient oriented x3 Eyes Pupils: Equal, round and reactive pupils present Neck Neck: Yes other (pain elicited on extension and flexion with limited rom) Resp Effort & Inspection: normal respiratory effort and able to speak in complete s entences Neuro Other: L. upper ext tremor / overshoot and undershoots finger to nose, dysmetria. General: patient oriented x3 and moves all extremities Cranial nerves: Yes CN's II-XII intact bilaterally, Yes Facial sensation intact/muscles of mastication intact, Yes Equal, round and reactive pupils present, Yes Normal accommodation reflex present, Yes Bilaterally intact EOM present, Yes Nystagmus not present, Yes Normal facial strength present, Yes Midline tongue present, Yes Ability to bilaterally rotate head present and Yes Ability to bilaterally elevate shoulders present Cognition (Neuro): normal cognition Gait exam (Neuro): Normal gait present Motor exam (neuro): 5/5 motor strength present throughout, Normal motor muscle tone present throughout, Tremors during motor activity present (R. Hand ) and Motor abnormalites present Coordination: [id number] test normal (abnormal) Psych Appearance: grossly normal Speech and movement: Other speech and movement exam findings present (Psych) (hypophonia) Attitude: cooperative Thought process: Normal thought process present Thought content: Normal thought content present Results Reviewed Results Reviewed: MIGUEL compliance report reviewed with pt. today 12/2024- 03/2025 Total avg use is 78/90 days and >4 hours is 78% avg use is 6hours and 12min Press 7.8cmH20 Leaks are 0.9/min AHI is 5.8/hr. She washes her mask, rinses hoses, changes filters and fills reservoir with water. Assessment & Plan Assessment & Plan (1) MIGUEL (obstructive sleep apnea): Comment: mild degree of sleep apnea. The AHI was 5/hr and oxygen mitul was 81%. Code(s): G47.33 - Obstructive sleep apnea (adult) (pediatric) Category: Medical (2) Chronic kidney disease, stage 2 (mild): Onset Date: 08/31/21 Code(s): N18.2 - Chronic kidney disease, stage 2 (mild) Category: Medical (3) Renal stone: Onset Date: 11/23/20 Code(s): N20.0 - Calculus of kidney Category: Medical (4) Periodic limb movements of sleep: Code(s): G47.61 - Periodic limb movement disorder Category: Medical (5) Obesity: Code(s): E66.9 - Obesity, unspecified Category: Medical Qualifiers: Obesity type: due to excess calories Obesity classification: adult class 1 (BMI 30 - 34.9) Serious obesity comorbidity presence: with serious comorbidity Body mass index: BMI 30.0-30.9 Qualified Code(s): E66.811 - Obesity, class 1; E66.09 - Other obesity due to excess calories; Z68.30 - Body mass index [BMI] 30.0-30.9, adult (6) RLS (restless legs syndrome): Code(s): G25.81 - Restless legs syndrome Category: Medical Plan MIGUEL Mild Continue CPAP daily, as tolerated, pressures are too forceful will send her for titration AHI is 5.8/hr. May continue taking melatonin 10mg PO daily 2-3 hours prior to bedtime. Magnesium 200-400mg po daily at bedtime. Reviewed compliance of CPAP nightly, as patient has HTN, and CKD stage 3, and the #1 modifiable RF for CV events is hypertension. PLMD and RLS she continues on Gabapentin 800mg TID, will Write her a rx for NIDRA tonic motor device and check for improvement. Mood depression f/u with therapist and psychiatry as needed. Fatigue reviewed labs with pt. F/U with pcp re: labs. F/U in 3months Orders: Orders RT PSG in-lab sleep titration 04/09/25 G47.33 - Obstructive sleep apnea (adult) (pediatric) Medications: New melatonin 10 mg (2 x 5 mg) PO BEDTIME 60 tabs 0RF Insomnia [nidra tonic motor device RLS] As directed 2 ea 0RF Rest less legs G25.81 - Restless legs syndrome, G47.61 - Periodic limb movement disorder Refilled cholecalciferol (vitamin D3) (Vitamin D3) 25 mcg PO DAILY 90 caps 3RF 90 days Patient Instructions: Sleep Hygiene provided: set a scheduled bedtime and wake time to help regulate the circadian rhythm and balance the release of pituitary hormones. Sleep in a dark room, temperatures below 68 degrees, and no devices n bed. Limit caffeinated products 6 hours prior to bed, and limit fluids 2-4 hours prior to bed. Gentle night yoga, diffusing essential oils, and playing soft music can be relaxing. NIDRA for RLS / Periodic Limb movement disorder of sleep. In lab titration ahi is elevated Continue Vit D and f/u with pcp for all labs. Coding Level of Care Code Est Pt Level 4 (87676) Diagnoses MIGUEL (obstructive sleep apnea) G47.33 Chronic kidney disease, stage 2 (mild) N18.2 Renal stone N20.0 Periodic limb movements of sleep G47.61 Class 1 obesity due to excess calories with serious comorbidity and body mass index (BMI) of 30.0 to 30.9 in adult E66.811; E66.09; Z68.30 Obesity type: due to excess calories Obesity classification: adult class 1 (BMI 30 - 34.9) Serious obesity comorbidity presence: with serious comorbidity Body mass index: BMI 30.0-30.9 RLS (restless legs syndrome) G25.81
== END 2025-04-09 11:59 | disposition home or self-care (01) ==
LOC: HO.HSMC 10:28
PROVIDERS: PCP Internal Medicine; Visit Provider Physician Assistant Medical
DX: G47.33 Obstructive sleep apnea (adult) (pediatric) (principal); N18.2 Chronic kidney disease, stage 2 (mild); N20.0 Calculus of kidney; G47.61 Periodic limb movement disorder; E66.811 Obesity, class 1; E66.09 Other obesity due to excess calories; Z68.30 Body mass index [BMI] 30.0-30.9, adult; G25.81 Restless legs syndrome
CPT/HCPCS: 99214

== ENCOUNTER → 2025-04-09 10:27 | Outpatient (BNVA) | payer OTHER, SELFPAY | PROVIDERS: PCP Internal Medicine; Visit Provider Physician Assistant Medical | DX: G47.33 Obstructive sleep apnea (adult) (pediatric) (principal); I12.9 Hypertensive chronic kidney disease with stage 1 through stage 4 chronic kidney disease, or unspecified chronic kidney disease; N18.2 Chronic kidney disease, stage 2 (mild); N20.0 Calculus of kidney; G47.61 Periodic limb movement disorder; G25.81 Restless legs syndrome; F32.A Depression, unspecified; R53.83 Other fatigue; E66.811 Obesity, class 1; Z68.32 Body mass index [BMI] 32.0-32.9, adult; Z99.89 Dependence on other enabling machines and devices; Z79.899 Other long term (current) drug therapy; Z71.89 Other specified counseling | CPT/HCPCS: 99212 ==

== ENCOUNTER 2025-04-10 13:07 | Outpatient (REF) | payer OTHER, SELFPAY ==
--- NOTE | ~2025-04-10 | XR_ITS ---
EXAMINATION: XR ABDOMEN 1 VIEW (KUB) HISTORY: N20.0 - Calculus of kidney COMPARISON: Comparison is made with the prior examination dated 04/02/2025. FINDINGS: Two supine views of the abdomen are submitted. The bowel gas pattern is unremarkable, without evidence of mechanical obstruction. A right nephroureteral stent is again seen in place. The previously seen calcification overlying the lower pole of the right renal shadow is no longer visualized. There is a phlebolith in the pelvis. Multiple surgical clips are noted at the GE junction and in the right upper quadrant and right midabdomen. Abdominal wall mesh is seen on the left. There are no abnormal soft tissue masses. The bones are intact. XR/XR KUB IMPRESSION: Right nephroureteral stent in place. The previously seen calcification overlying the lower pole of the right renal shadow is no longer visualized. Electronically signed by: Vincenzo Betancourt MD 04/10/2025 01:48 PM [facility]
[2025-04-10 13:25] LABS: MANUAL DIFF FLAG NO
[2025-04-10 14:54] LABS: Hematocrit 38.8 % (37.0-47.0); Hemoglobin 12.4 g/dl (12.0-16.0); Imm Gran Abs Auto 0.01 X10*3/uL (0.00-0.03); Imm Gran Pct Auto 0.2 % (0.0-0.4); Lymphocytes Absolute Auto 1.8 X10*3/uL (1.2-4.9); Mean Corpuscular HGB Conc 32.0 g/dl (31.0-35.0); Mean Corpuscular Hemoglobin 32.5 pg (27.0-33.0); Mean Corpuscular Volume 101.6 fL (80.0-98.0); NRBC Abs Auto 0.000 X10*3/uL (0.0-0.012); NRBC Pct Auto 0.0 /100WBC (0.0-0.2); Platelet Count 276 X10*3/uL (160-400); Red Blood Count 3.82 X10*6/uL (4.20-5.50); White Blood Count 5.1 X10*3/uL (4.8-10.8)
[2025-04-10 15:19] LABS: Appearance Urine Clear; Glucose Urine UA Negative (Negative); PH >= 9.0 (5.0-9.0); Specific Gravity - Urine 1.015 (1.005-1.025); UMIC TRIGGER UACC YES
[2025-04-10 15:57] LABS: Folate 6.6 ng/mL (> or = 4.0); Vitamin B12 450 pg/mL (200-900)
[2025-04-10 16:01] LABS: Alanine Aminotransferase 86 U/L (0-31); Albumin Level 3.5 g/dL (3.5-5.0); Alkaline Phosphatase 142 U/L (39-117); Anion Gap 10 (12-20); Aspartate Amino Transferase 38 U/L (5-31); Blood Urea Nitrogen 25 mg/dL (9-16); Calcium 8.4 mg/dL (8.4-10.2); Carbon Dioxide 27 mmol/L (22-29); Chloride 109 mmol/L (96-108); Cholesterol 228 mg/dL (<200); Estimated Glomerular Filt Rate 44; HDL Cholesterol 60 mg/dL (>40); Potassium 3.8 mmol/L (3.3-5.1); Sodium 142 mmol/L (135-145); Total Protein 6.2 g/dL (6.5-8.0); Triglycerides 96 mg/dL (<150)
--- OUTSIDE RECORDS SUMMARY | 2025-04-10 20:23 | XMS_ITS | Encounter Summary ---
Author Organization [employer] Address [address] [facility] [address] [place] [address] Care Team Providers Care Adventure Education Teacher Name Role Phone Unavailable Primary Care Provider Unavailabl e Encounter Details Date Type Department Care Team (Latest Contact Info) Description 01/20/2022 Abstract [facility] CONVERSIONS Dental, Provider, DDS Social History Tobacco [...] Description 06/05/2025 12:45 PM EST Office Visit [facility] ADULT DENTAL [address] [place] [address] Chari Greenwood [address] [place] [address] documented as of this encounter Visit Diagnoses Not on filedocumented in this encounter
--- OUTSIDE RECORDS SUMMARY | 2025-04-10 20:23 | XMS_ITS | Encounter Summary ---
Author Organization [employer] Address [address] [facility] [address] [place] [address] Care Team Providers Care Screen And Cyclone Repairer Name Role Phone Unavailable Primary Care Provider Unavailabl e Encounter Details Date Type Department Care Team (Latest Contact Info) Description 11/30/2020 Abstract [facility] CONVERSIONS Dental, [...] [facility] ADULT DENTAL [address] [place] [address] Chari Greenwood [address] [place] [address] documented as of this encounter Visit Diagnoses Not on filedocumented in this encounter
--- OUTSIDE RECORDS SUMMARY | 2025-04-10 20:23 | XMS_ITS | Clinical Summary ---
Author Organization [facility] Address [address] [place] [phone] Phone Care Team Providers Care Arbor End Mainspring Former Name Role Phone Hung Montelongo MD Primary Care Provider [phone] Allergies No known active allergies Medications VENTOLIN HFA 90 mcg/actuation inhaler TAKE 2 PUFFS INHALED EVERY 6 HOURS NEEDED FOR SHORTNESS OF BREATH OR WHEEZING FOR 30 DAYS 3 Active VITAMIN D3 25 mcg (1,000 unit) capsule TOME WU C PSULA TODOS LOS D 4 Active ferrous sulfate 325 mg (65 mg chalkyitsik iron) tablet TOME WU TABLETA TODOS LOS [...] topic Medical Devices Not on file Insurance [facility] [employer] [facility] [facility] Care Teams [employer]spring Former Relationship Specialty Start Date End Date Hung Montelongo MD [address] [place] [address] [place] [address] PCP - General Internal Medicine 07/24/23 Additional Source Comments The information contained in this document represents components of the legal health record. It is not the complete legal health record.[facility]
--- OUTSIDE RECORDS SUMMARY | 2025-04-10 20:23 | XMS_ITS | Clinical Summary ---
Author Organization [employer] Address [address] [facility] [address] [place] [address] Care Team Providers Care Signs Cleaner Name Role Phone Unavailable Primary Care [...] Description 06/05/2025 12:45 PM EST Office Visit [facility] [address] [place] [address] Timo, Chari [address] [place] [address] Health Maintenance Due Date Last Done Comments [...] Most Recently Relevant to Health Maintenance Insurance [facility] MEDICAID STAND ADULT
--- OUTSIDE RECORDS SUMMARY | 2025-04-10 20:24 | XMS_ITS | Clinical Summary ---
Author Organization [facility] Address [address] [address] Phone Care Team Providers Care Inspector Plumbing Name Role Phone Hung Montelongo MD Primary Care Provider [phone]- [phone] Allergies Active Allergy Reactions Criticality Noted Date [...] [facility] [address] [place] [address] Alejandro Benz MD [address] [facility] [address] [place] [id number] Health Maintenance Due Date Last Done Comments Breast Cancer Screening 1970 Hepatitis B Vaccine (1 of 3 - 19+ 3-dose series) 11/17 Pneumococcal Vaccine: 50+ Years (1 of 2 - PCV) 989 Colorectal Cancer Screening: Annual FOBT 2018 Colorectal Cancer Screening: Colonoscopy 2018 Colorectal Cancer Screening: Sigmoidoscopy 2018 Influenza Vaccine (#1) 2024 [place] [address] [place] Medicaid Care Teams Inspector Plumbing Relationship Specialty Start Date End Date Hung Montelongo MD [address] [place] [address] PCP - General 05/11/20
== END 2025-04-10 13:08 | disposition home or self-care (01) ==
LOC: HO.XRAY 13:07
PROVIDERS: Absent Provider Urology; PCP Internal Medicine; Visit Provider Internal Medicine
DX: N20.0 Calculus of kidney (principal); D64.9 Anemia, unspecified; E78.00 Pure hypercholesterolemia, unspecified; R79.89 Other specified abnormal findings of blood chemistry; E55.9 Vitamin D deficiency, unspecified; E53.8 Deficiency of other specified B group vitamins
CPT/HCPCS: 36415; 74018; 80053; 80061; 81001; 81003; 81596; 82306; 82607; 82746; 84443; 85025

== ENCOUNTER → 2025-04-10 13:31 | Outpatient (BNV) | payer OTHER, SELFPAY | PROVIDERS: Absent Provider Urology; PCP Internal Medicine; Visit Provider Radiology Diagnostic Radiology | DX: N20.0 Calculus of kidney (principal); Z96.0 Presence of urogenital implants | CPT/HCPCS: 74018 ==

== ENCOUNTER 2025-04-15 14:48 | Outpatient (AMB) | payer OTHER, SELFPAY ==
--- NOTE | 2025-04-15 15:19 | A.OFFPC_ITS ---
Vital Signs 04/15/25 15:21 Height 5 ft 3 in Weight 183 lb 6 oz BMI 32.5 BP 90/66 Blood Pressure Location Lt brachial Position Sitting Respiration 18 Pulse 68 Pulse Source Pulse Oximeter Temp Source Temporal Artery Scan Pulse Oximetry (%) 98 Oxygen Delivery Method Room Air Intake Visit Reasons: Med. 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: Not Required per policy Accompanied by: Self / Same As Patient Allergies ibuprofen (From Motrin) Allergy (Verified 04/20/25 19:32) Unknown acetaminophen Adverse Reaction (Intermediate, Verified 04/20/25 19:32) Liver problems atorvastatin Adverse Reaction (Intermediate, Verified 04/20/25 19:32) elevated LFTs Citalopram Analogues Adverse Reaction (Intermediate, Verified 04/20/25 19:32) Itching prednisone Adverse Reaction (Intermediate, Verified 04/20/25 19:32) Bloating rosuvastatin Adverse Reaction (Intermediate, Verified 04/20/25 19:32) elevated LFTs Medication List - Last Reconciled 04/15/25 by Hung Montelongo MD [Adult pull ups As directed] albuterol sulfate 90 mcg/actuation (Ventolin HFA) 2 puffs inhalation Q6H PRN apixaban (Eliquis) 2.5 mg PO BID 30 days cariprazine (Vraylar) 4.5 mg PO DAILY cholecalciferol (vitamin D3) (Vitamin D3) 25 mcg PO DAILY 90 days diphenhydramine HCl 50 mg PO BEDTIME furosemide (Lasix) 20 mg PO DAILY PRN gabapentin 800 mg PO TID 30 days hyoscyamine sulfate 0.125 mg PO BID PRN lidocaine 5% 1 patch topical DAILY linaclotide (Linzess) 290 mcg PO QAM lorazepam 1 mg PO TID meclizine 25 mg PO TID PRN 30 days melatonin 10 mg (2 x 5 mg) PO BEDTIME midodrine 10 mg PO TID@0900,1300,1700 [nidra tonic motor device RLS As directed] oxycodone 5 mg PO Q8-12H PRN oxycodone 5 mg PO Q8-12H PRN rizatriptan take 1 tab at onset of headache; if no relief may repeat 1 tab after at least 4 hrs; max = 2 tabs/24 hr PO 30 days solifenacin (Vesicare) 10 mg PO DAILY tirzepatide (weight loss) (Zepbound) 2.5 mg (0.5 mL) subcut QWEEK topiramate 25 mg PO DAILY tramadol 100 mg (2 x 50 mg) PO Q8H PRN 30 days trazodone 50 mg PO BEDTIME PRN 30 days verapamil 40 mg PO BID Tobacco use date assessed: 04/15/25 Dental Screening Dental Screen Date: 04/15/25 Did you have a dental visit in the last 12 months?: No Did you have a dental problem in the last 6 months where you did not have access to dental care?: No Was dental information given to patient?: No HPI Med. Review Zepbound HPI Details Patient comes in today for her follow up visit She was seen by the weight management clinic last month on March 19, 2025 where it was suggested that she could be prescribed a GLP-1 medication if her PCP was in agreement Patient has a history of high cholesterol, but she was taken off her cholesterol medication a few months ago due to elevated liver enzymes, which remain high on her recent labs She reports (+) new symptoms of strong, burning pain in her hip and knees, as well as cramping and a burning sensation in three of her toes. She does not recall ever having a nerve conduction test done for her symptoms recently She has an upcoming appointment with pain management on Monday for a back injection for her chronic low back pain She is also currently requesting for a refill for Oxycodone, which was recently prescribed by urology for kidney stones, as well as for her Trazodone and Lidocaine patches She denies any headaches or dizziness Denies any chest pains, no increased SOB No nausea/vomiting, no abdominal pains at present No change in bowel habits noted She had her follow up labs done last week - to discuss her results [facility] Medical History Pulmonary emboli Chronic kidney disease, stage 3 (11/23/20) History of electroconvulsive therapy (05/06/24) Solitary kidney, acquired Renal calculus, right Bacteremia Pure hypercholesterolemia Left breast mass Pulmonary nodules Chronic kidney disease, stage III (moderate) Obesity (BMI 30-39.9) Renal cyst Diverticulosis Tubular adenoma Asthma Spondylosis of lumbar spine Sacroiliitis Dizziness of unknown etiology Chronic constipation Hx of schizophrenia Panic attacks PTSD (post-traumatic stress disorder) Dyspareunia Pyelonephritis Ingrown toenail Iron deficiency anemia Major depression, recurrent Anxiety Insomnia Tremor Orthostatic hypotension Incisional hernia without obstruction or gangrene Avascular necrosis of femoral head Bilateral carpal tunnel syndrome Peroneal neuropathy Lumbar degenerative disc disease Vitamin D deficiency GERD (gastroesophageal reflux disease) Migraine Hyperlipidemia Surgical History Hx of umbilical hernia repair (10/02/24) History of surgery (10/17/24) Hx of lithotripsy History of left nephrectomy (~1999) History of colonoscopy History of surgery Hx of cystoscopy History of bilateral breast reduction surgery History of hysterectomy History of cholecystectomy History of endoscopy (~06/2016) History of bladder repair surgery (~03/2015) S/P cystoscopy (~07/30/12) S/P panniculectomy History of hernia repair (~03/29/10) History of bladder surgery (~10/2009) History of gastric bypass (~2008) History of incisional hernia repair (~1999) Hx of umbilical hernia repair (~1999) S/P laparoscopic sleeve gastrectomy Family History Father Liver cancer Mother Breast cancer Sister Lung cancer Other Mental health problem Social History Household Members: Spouse Housing: Apartment Are you a primary medicare sales representative to a significant other at home: No Do you presently have visiting nurse or other home services: Yes Alcohol intake: never Patient Tobacco Use Status: Never used Tobacco e-Cigarette/Vaping Use: Never Used Second Hand Smoke Exposure: No Advance Directives: Yes Advance Directives on File: Yes Advance Directives Date on File: 07/12/21 Do you have a plan to hurt others: No Plan service: No Current occupational status: disabled Sexual orientation: Straight/Heterosexual Gender identity: Female Cognitive needs: No Hearing needs: No Vision needs: Yes Female Reproductive History Menstrual Age of Menarche: 13 Questionnaire Thrive Questionnaire Date Thrive assessed: 04/15/25 I am a: Patient What is your living situation today?: I have a steady place to live Within the past 12 months, did the food you bought not last and you didn't have the money to get more?: Sometimes True Within the past 12 months, did you worry whether your food would run out before you got money to buy more?: Sometimes True Do you have trouble paying for medicines?: No Do you have trouble getting transportation to medical appointments?: No Do you have trouble paying your heating and electricity bill?: No Do you have trouble taking care of your child, family member or friend?: I choose not to answer this question Do you have trouble with day-to-day activities such as bathing, preparing meals, shopping, managing finances, etc.?: Yes Are you currently unemployed and looking for a job?: I choose not to answer this question Are you interested in more education?: I choose not to answer this question Please select the resources that you would like help with: None Currently or been in a relationship where the following occur: I choose not to answer THRIVE Score: 2 JAMIE-7 AMB Questionnaire JAMIE-7 Date JAMIE - 7 assessed: 03/05/25 Source: Developed by Drs. Vincenzo Mayo, Beverly Hernandez, Angel Vogel and colleagues, with an educational juan antonio from [employer]. Review of Systems Const Denies chills, Reports fatigue, Denies fever(s) and Denies headache(s) ENT Denies dysphagia, Denies dizziness, Denies otalgia, Denies headache(s), Denies neck pain, Denies odynophagia and Denies sore throat Card Denies chest pain, Denies irregular heart rhythm, Denies palpitations and Denies dyspnea Resp Denies chest congestion, Denies cough, Denies dyspnea and Denies wheezing GI Denies abdominal pain, Denies constipation, Denies dysphagia, Denies heartburn, Denies diarrhea, Reports nausea (on and off), Denies odynophagia and Denies vomiting Denies hematuria, Denies difficulty voiding, Denies dysuria and Denies urinary urgency Musc Reports back pain (over the lower back - chronic), Denies arthralgias and Denies neck pain Skin/Breast Denies rash Neuro Denies dizziness, Denies headache(s) and Denies paresthesias Psych Reports anxiety and Reports depression Endo Reports fatigue and Denies palpitations Catarino/Lymph Details: on and off swelling of both lower legs and feet Denies easy bruising Aller/Immun Denies wheezing Physical exam (Primary Care) Vital Signs: Last Vital Signs Pulse 68 04/15/25 15:21 Resp 18 04/15/25 15:21 BP 90/66 04/15/25 15:21 Pulse Ox 98 04/15/25 15:21 Oxygen Delivery Method Room Air 04/15/25 15:21 BMI result Body Mass Index 32.5 Tobacco/Smoking Status: Tobacco use Status Tobacco use date assessed 04/15/25 04/15/25 15:30 Patient Tobacco Use Status Never used Tobacco 04/15/25 15:30 e-Cigarette/Vaping Use Never Used 04/15/25 15:30 Thrive Assessment: Date of Thrive Assessment Date Thrive assessed 04/15/25 04/15/25 15:30 Currently or been in a relationship where the following occur: I choose not to answer Const General: no acute distress and alert HENMT Ears: TM's normal bilaterally and EAC's normal Throat: Yes posterior oropharynx normal and Yes tonsils normal Neck Neck: Yes supple and No lymphadenopathy Thyroid: Thyroid normal Resp Auscultation: clear to auscultation bilaterally, no rales and no wheezes Cardio Rate: regular rate Rhythm: regular rhythm Heart sounds: no murmurs GI Palpation (GI): Soft to palpation, nontender and no hernias Auscultation: normal bowel sounds General: Yes no CVA tenderness Back/Spine/Pelvis Back: no CVA tenderness Thoracic/Lumbar Spine: paraspinal muscle tenderness (over the lumbar region) on the right greater than left and lumbar spinal tenderness Skin Rashes: no rashes Extrem General: No clubbing, No cyanosis and Yes edema (1+ bipedal edema) Results Reviewed Results Reviewed: Laboratory Tests 03/19/25 04/10/25 04/10/25 10:28 13:18 13:23 WBC 5.1 Hgb 12.4 Hct 38.8 Plt Count 276 ESR 21 H Sodium 142 Potassium 3.8 Creatinine 1.27 Estimated GFR 44 Fasting Glucose 105 H Calcium 8.4 D AST 38 H ALT 86 H Triglycerides 96 Cholesterol 228 H LDL Cholesterol, Calc 149 H HDL Cholesterol 60 Vitamin B12 450 25-OH Vitamin D Total 33.9 TSH 0.64 Ur Specific Bradford 1.015 Urine Protein 30 (1+) H Urine Glucose (UA) Negative Urine Blood Large (3+) H Urine Nitrite Negative Ur Leukocyte Esterase Negative Coding Level of Care Code Est Pt Level 4 (88085) Diagnoses Radicular pain of both lower extremities M54.10 Hydronephrosis with urinary obstruction due to ureteral calculus N13.2 Solitary kidney, acquired Z90.5 Pure hypercholesterolemia E78.00 Hyperlipidemia type: pure hypercholesterolemia Elevated LFTs R79.89 MIGUEL (obstructive sleep apnea) G47.33 Multiple thyroid nodules E04.2 Chronic constipation K59.09 Orthostatic hypotension I95.1 Pruritus L29.9 Gastroesophageal reflux disease without esophagitis K21.9 Esophagitis presence: without esophagitis Edema, unspecified type R60.9 Edema type: unspecified Degeneration of intervertebral disc of lumbar region with discogenic back pain and lower extremity pain M51.362 Disc-related pain type: discogenic back pain and lower extremity pain Pain in other joint M25.59 Joint pain location: other joint Migraine without status migrainosus, not intractable, unspecified migraine type G43.909 Migraine type: unspecified Status migrainosus presence: without status migrainosus Intractability: not intractable Vitamin D deficiency E55.9 Memory impairment R41.3 Primary insomnia F51.01 Insomnia type: primary Anxiety F41.9 Episode of recurrent major depressive disorder, unspecified depression episode severity F33.9 Active/Remission status: currently active Major depression episode severity: unspecified Obesity (BMI 30-39.9) E66.9 Assessment & Plan Assessment & Plan (1) Radicular pain of both lower extremities: Code(s): M54.10 - Radiculopathy, site unspecified Category: Medical Plan: Will send patient for EMG and NCV of both lower extremities for further evaluation (2) Hydronephrosis with urinary obstruction due to ureteral calculus: Code(s): N13.2 - Hydronephrosis with renal and ureteral calculous obstruction Category: Medical Plan: Resolved with cystoscopy and right stent insertion Patient has a 7 mm nonobstructing calculus at the lower pole of the right kidney, with no hydronephrosis seen on her most recent imaging in early March 2025 There are multiple right renal cysts noted as well as a 3.8 x 2.9 x 4.0 cm septated cyst at the lower pole at the time and follow up of this is recommended She is currently requesting again for a refill of her Oxycodone 10 mg that was prescribed by urology and have reminded patient again that she was discharged from pain management from the practice here a few years ago for inappropriate UDS and she will not be prescribed any opioids from the practice again now and in the future Follow up with urology as scheduled for continuing surveillance and management (3) Solitary kidney, acquired: Comment: (+) Hx of left nephrectomy >20 years ago due to recurrent kidney stones Code(s): Z90.5 - Acquired absence of kidney Category: Medical Plan: Follow up with nephrology/urology as scheduled (4) Hyperlipidemia: Code(s): E78.5 - Hyperlipidemia, unspecified Category: Medical Qualifiers: Hyperlipidemia type: pure hypercholesterolemia Qualified Code(s): E78.00 - Pure hypercholesterolemia, unspecified Plan: Results of her labs done last week reviewed and discussed with patient - her cholesterol levels remain significantly elevated She is presently not a candidate for statin Rx due to her highly elevated LFTs, with her serum AST currently at 82 (normal at 5-31), ALT at 356 (normal from 0- 31) alkaline phosphatase at 311 (normal from 39-117) but her health insurance company has been stubbornly declining to cover her Praluent injection Rx so she has not been able to continue on it for months now We sent in Rx again for Praluent Pen 75 mg SQ every 2 weeks at her last appointment and patient states that she was not able to get it filled at her pharmacy due to insurance restrictions We tried sending in Rx for Rapatha instead - 140 mg SQ Q 2 weeks - but this also appears to have been denied Reinforced low cholesterol diet She will be seeing cardiology for her follow up with them next month and they may hopefully be able to help patient get this resolved and get her Rx approved and start her back on any of the PCSK9 inhibitors to help get her cholesterol levels controlled better Will recheck her fasting lipids and labs in 3 months for follow up (5) Elevated LFTs: Code(s): R79.89 - Other specified abnormal findings of blood chemistry Category: Medical Plan: Patient's LFTs improved when she was taken off Rosuvastatin a few months ago but they have gone up significantly again since and are still elevated on her recent labs done last week Abdominal US done last year revealed (+) coarsened hepatic echotexture, consistent with fatty infiltration or hepatocellular disease. No focal hepatic mass or intrahepatic biliary dilatation is seen Repeat abdominal US done a few months ago showed no acute changes She also had another abdominal US done at [facility] [place] a few weeks ago that revealed mild hepatic steatosis. Probable 12 mm hemangioma in the right lobe Her additional work ups, including her liver fibrosis panel, are all still pending at this time We will continue to monitor her LFTs regularly Follow up with GI as scheduled (6) MIGUEL (obstructive sleep apnea): Comment: mild degree of sleep apnea. The AHI was 5/hr and oxygen mitul was 81%. Code(s): G47.33 - Obstructive sleep apnea (adult) (pediatric) Category: Medical Plan: Continue using her CPAP device when sleeping at night daily Follow up with Sleep Medicine as scheduled (7) Multiple thyroid nodules: Code(s): E04.2 - Nontoxic multinodular goiter Category: Medical Plan: These were apparently seen incidentally on neck CTA done a few months ago Her TFTs remain normal on her recent labs She is now seeing endocrinology for this and had thyroid Bx done a few months ago - pathology came out as atypia of undetermined significance (Taylor category III) Follow up with endocrinology as scheduled (8) Chronic constipation: Code(s): K59.09 - Other constipation Category: Medical Plan: She is again encouraged on increased oral fluids and dietary fiber intake States that Lactulose and Docusate 100 mg BID have not helped much previously; she also tried taking OTC Miralax, which she states only helped minimally She was tried by GI on Linzess and Trulance also recently and she states that both Rx did not help She is currently on a combination regimen of Linzess 145 mcg QD, Docusate 100 mg BID and Miralax 17 gm QD Had EGD and colonoscopy done about 3 years ago - (+) tubular adenoma; colonoscopy was otherwise normal Follow up with GI as scheduled (9) Orthostatic hypotension: Code(s): I95.1 - Orthostatic hypotension Category: Medical Plan: 30 days cardiac event monitor done on 07/11/2023 showed sinus rhythm with heart rate ranging from 36 to 131/min, 2 brief paroxysmal SVT episodes, rare PACs and PVCs; two symptom events correlated with sinus tach. Echocardiogram done on the same day (07/11/2023) came out normal Tilt-table testing done on 10/17/2023 showed appropriate heart rate and blood pressure response to tilt Continue Midodrine 10 mg TID She is reminded to stay adequately hydrated as much as she can and to try increasing her oral salt intake as well Follow up with cardiology as scheduled (10) Pruritus: Code(s): L29.9 - Pruritus, unspecified Category: Medical Plan: Patient relates experiencing increased itching all over frequently and she feels that these are likely due to her Midodrine Rx and is inquiring if she can stop taking this medication Have advised patient that she was started on Midodrine by cardiology to help with her orthostasis and stopping this abruptly may not be the best option to take, even if Midodrine is in the responsible for her complaints of recurrent pruritus recently Have advised patient to continue on her current medication for now and to speak to cardiology first whether they are agreeable to her stopping her Midodrine or not Have advised patient that she can take some OTC Benadryl PRN for symptomatic relief (11) GERD (gastroesophageal reflux disease): Code(s): K21.9 - Gastro-esophageal reflux disease without esophagitis Category: Medical Qualifiers: Esophagitis presence: without esophagitis Qualified Code(s): K21.9 - Gastro-esophageal reflux disease without esophagitis Plan: Dietary restrictions reinforced Continue Omeprazole 20 mg QD (12) Edema: Code(s): R60.9 - Edema, unspecified Category: Medical Qualifiers: Edema type: unspecified Qualified Code(s): R60.9 - Edema, unspecified Plan: Continue Furosemide 20 mg Q AM PRN She is advised to take this only as needed for severe edema as her blood pressure is often on the lower end of normal and taking this daily may drive her BP down further and cause her to experience increased dizziness and orthostasis (13) Lumbar degenerative disc disease: Code(s): M51.36 - Other intervertebral disc degeneration, lumbar region Category: Medical Qualifiers: Disc-related pain type: discogenic back pain and lower extremity pain Qualified Code(s): M51.362 - Other intervertebral disc degeneration, lumbar region with discogenic back pain and lower extremity pain Plan: Reinforced activity and weight lifting restrictions She went to physical therapy last year without any significant relief She was seen by [facility] [place] [facility] Pain Management previously and had a diagnostic SI joint injection under fluoroscopic guidance back in September 2021 and started seeing them again recently; has been scheduled for bilateral therapeutic sacroiliac joint injection under sedation but it looks like she stopped going to pain management afterwards She was referred back to [facility] [place] Pain management for interventional Tx to help with her chronic pain at her last visit and she was seen again by Dr. Smith in late October 2023 and he was reportedly planning to schedule her for a bilateral therapeutic sacroiliac joint injection under sedation but it appears that patient did not follow-up again for her injections although she claims that she was never scheduled It appears that patient completely forgot about her follow-up and has been experiencing some memory issues in addition to her recent psychiatric hospitalizations for decompensation She was seen again by Dr. Smith a few months ago and was sent for physical therapy, after which she will be scheduled again for back injections Patient started back with physical therapy last week and she is reminded to continue following up with them and with pain management as scheduled Continue Gabapentin 800 mg 3 times a day, Tramadol 50 mg 1-2 tablets every 8 hours as needed (14) Arthralgia: Code(s): M25.50 - Pain in unspecified joint Category: Medical Qualifiers: Joint pain location: other joint Qualified Code(s): M25.59 - Pain in other specified joint Plan: Involving multiple joints, especially over both hips, both elbows and both knees X-rays of the knees done back in August 2021 revealed (+) mild OA changes in both knees; hip and elbow x-rays came out normal Continue Gabapentin 800 mg TID and Tramadol 50 mg TID PRN for pain (15) Migraine: Code(s): G43.909 - Migraine, unspecified, not intractable, without status migrainosus Category: Medical Qualifiers: Migraine type: unspecified Status migrainosus presence: without status migrainosus Intractability: not intractable Qualified Code(s): G43.909 - Migraine, unspecified, not intractable, without status migrainosus Plan: Controlled Continue Topiramate 50 mg QD for LANZA prophylaxis and Sumatriptan 50 mg PRN Follow-up with neurology as scheduled (16) Vitamin D deficiency: Code(s): E55.9 - Vitamin D deficiency, unspecified Category: Medical Plan: Continue Vitamin D3 1000 units QD (17) Memory impairment: Code(s): R41.3 - Other amnesia Category: Medical Plan: She was referred to and seen by neurology and was advised that her memory issues are multifactorial in etiology although she was diagnosed with frontotemporal lobe degeneration and dementia as well Follow up with neurology as scheduled (18) Insomnia: Code(s): G47.00 - Insomnia, unspecified Category: Medical Qualifiers: Insomnia type: primary Qualified Code(s): F51.01 - Primary insomnia Plan: Sleep hygiene reinforced She was taking Trazodone 50 mg daily at bedtime as needed and Prazosin 1 mg Q HS in the past but currently appears to be only taking Melatonin 5 mg Q HS She is also on Aripiprazole 5 mg Q HS (19) Anxiety: Code(s): F41.9 - Anxiety disorder, unspecified Category: Medical Plan: Continue Vraylar 4.5 mg QD and Lorazepam 1 mg TID PRN Followup with psychiatry as scheduled (20) Major depression, recurrent: Code(s): F33.9 - Major depressive disorder, recurrent, unspecified Category: Medical Qualifiers: Active/Remission status: currently active Major depression episode severity: unspecified Qualified Code(s): F33.9 - Major depressive disorder, recurrent, unspecified Plan: Continue Vraylar 4.5 mg QD She was admitted again to [facility] [place] 1 to 2 weeks ago for psychiatric decompensation and suicidal ideation and has had multiple psychiatric admissions as well in the past for similar reasons Follow-up with Psychiatry as scheduled (21) Obesity (BMI 30-39.9): Code(s): E66.9 - Obesity, unspecified Category: Medical Plan: Reinforced diet; exercise is unrealistic given patient's multiple medical and psychiatric morbidities Plan Follow-up in 3 months Orders: Orders NE nerve conduction velocity 04/15/25 M54.10 - Radiculopathy, site unspecified Comprehensive [place]. Panel Fast 3 Months E78.00 - Pure hypercholesterolemia, unspecified Complete Blood Count Auto Diff 3 Months D64.9 - Anemia, unspecified Lipid Panel 3 Months E78.00 - Pure hypercholesterolemia, unspecified UA CC w/rflx Micro + Cult 3 Months R30.0 - Dysuria NE electromyogram (EMG) 04/15/25 M54.10 - Radiculopathy, site unspecified TSH reflex Free T4 3 Months E78.00 - Pure hypercholesterolemia, unspecified Vitamin D 25-OH Total 3 Months E55.9 - Vitamin D deficiency, unspecified Medications: Refilled trazodone 50 mg PO BEDTIME PRN 30 tabs 1RF insomnia 30 days lidocaine 5% leave on most painful area for up to 12 hrs 1 patch topical DAILY 30 ea 0RF
[2025-04-15 15:21] VITALS: BP 90/66; PULSE 68; RESP 18; O2SAT 98; BMI 32.5
--- OUTSIDE RECORDS SUMMARY | 2025-04-15 19:08 | XMS_ITS | Clinical Summary ---
Author Organization [facility] Address [address] [place] [phone] Phone Care Team Providers Care Painter Spray Name Role Phone Hung Montelongo MD Primary Care Provider [phone] [phone] Allergies No known active allergies Medications VENTOLIN HFA 90 mcg/actuation inhaler TAKE 2 PUFFS INHALED EVERY 6 HOURS NEEDED FOR SHORTNESS OF BREATH OR WHEEZING FOR 30 DAYS 3 Active VITAMIN D3 25 mcg (1,000 unit) capsule TOME WU C PSULA TODOS LOS D 4 Active ferrous sulfate 325 mg (65 mg allakaket iron) tablet TOME WU TABLETA TODOS LOS [...] topic Medical Devices Not on file Insurance [facility] [employer] [facility] [facility] Care Teams Painter Spray Relationship Specialty Start Date End Date Hung Montelongo MD [address] [place] [address] [place] [address] PCP - General Internal Medicine 07/24/23 Additional Source Comments The information contained in this document represents components of the legal health record. It is not the complete legal health record.[facility]
--- OUTSIDE RECORDS SUMMARY | 2025-04-15 19:08 | XMS_ITS | Encounter Summary ---
Author Organization [employer] Address [address] [facility] [address] [place] [address] Care Team Providers Care Injection Machine Operator Name Role Phone Unavailable Primary Care Provider Unavailabl e Encounter Details Date Type Department Care Team (Latest Contact Info) Description 11/30/2020 Abstract [facility] CONVERSIONS Dental, Provider, DDS Social History [...] Description 06/05/2025 12:45 PM EST Office Visit [facility] ADULT DENTAL [address] [place] [address] Chari Greenwood [address] [place] [address] documented as of this encounter Visit Diagnoses Not on filedocumented in this encounter
--- OUTSIDE RECORDS SUMMARY | 2025-04-15 19:08 | XMS_ITS | Clinical Summary ---
Author Organization [email or web address] Address [address] [facility] 7t [place] [address] Care Team Providers Care Acoustic Warfare Analyst Name Role Phone Unavailable Primary Care Provider [...] Description 06/05/2025 12:45 PM EST Office Visit [facility] ADULT DENTAL [address] [place] [address] Timo, Chari [address] [place] [address] Health Maintenance Due Date Last Done Comments [...] Most Recently Relevant to Health Maintenance Insurance [facility] MEDICAID STAND ADULT
--- OUTSIDE RECORDS SUMMARY | 2025-04-15 19:08 | XMS_ITS | Encounter Summary ---
Author Organization [employer] Address [address] [facility] [address] [place] [address] Care Team Providers Care Product Assembler Name Role Phone Unavailable Primary Care Provider Unavailabl e Encounter Details Date Type Department Care Team (Latest Contact Info) Description 01/20/2022 Abstract [facility] CONVERSIONS Dental, Provider, DDS Social History [...] Description 06/05/2025 12:45 PM EST Office Visit [facility] ADULT DENTAL [address] [place] [address] Chari Greenwood [address] [place] [address] documented as of this encounter Visit Diagnoses Not on filedocumented in this encounter
== END 2025-04-15 16:01 | disposition home or self-care (01) ==
LOC: HO.HMCH 14:48
PROVIDERS: PCP Internal Medicine; Visit Provider Internal Medicine
DX: M54.10 Radiculopathy, site unspecified (principal); N13.2 Hydronephrosis with renal and ureteral calculous obstruction; Z90.5 Acquired absence of kidney; E78.00 Pure hypercholesterolemia, unspecified; R79.89 Other specified abnormal findings of blood chemistry; G47.33 Obstructive sleep apnea (adult) (pediatric); E04.2 Nontoxic multinodular goiter; K59.09 Other constipation; I95.1 Orthostatic hypotension; L29.9 Pruritus, unspecified; K21.9 Gastro-esophageal reflux disease without esophagitis; R60.9 Edema, unspecified; M51.362 Other intervertebral disc degeneration, lumbar region with discogenic back pain and lower extremity pain; M25.59 Pain in other specified joint; G43.909 Migraine, unspecified, not intractable, without status migrainosus; E55.9 Vitamin D deficiency, unspecified; R41.3 Other amnesia; F51.01 Primary insomnia; F41.9 Anxiety disorder, unspecified; F33.9 Major depressive disorder, recurrent, unspecified

== ENCOUNTER → 2025-04-15 14:48 | Outpatient (BNVA) | payer OTHER, SELFPAY | PROVIDERS: PCP Internal Medicine; Visit Provider Internal Medicine | DX: N13.2 Hydronephrosis with renal and ureteral calculous obstruction (principal); E78.00 Pure hypercholesterolemia, unspecified; M54.10 Radiculopathy, site unspecified; R79.89 Other specified abnormal findings of blood chemistry; G47.33 Obstructive sleep apnea (adult) (pediatric); E04.2 Nontoxic multinodular goiter; K59.09 Other constipation; I95.1 Orthostatic hypotension; L29.9 Pruritus, unspecified; K21.9 Gastro-esophageal reflux disease without esophagitis; R60.9 Edema, unspecified; M51.362 Other intervertebral disc degeneration, lumbar region with discogenic back pain and lower extremity pain; M25.59 Pain in other specified joint; G43.909 Migraine, unspecified, not intractable, without status migrainosus; E55.9 Vitamin D deficiency, unspecified; R41.3 Other amnesia; F51.01 Primary insomnia; F41.9 Anxiety disorder, unspecified; F33.9 Major depressive disorder, recurrent, unspecified; E66.9 Obesity, unspecified; Z68.32 Body mass index [BMI] 32.0-32.9, adult; Z90.5 Acquired absence of kidney | CPT/HCPCS: 99212 ==

== ENCOUNTER 2025-04-17 10:41 | Outpatient (REF) | payer OTHER, SELFPAY ==
[2025-04-17 11:31] LABS: Appearance Urine Cloudy; Glucose Urine UA Negative (Negative); PH 8.0 (5.0-9.0); Specific Gravity - Urine 1.015 (1.005-1.025); UMIC TRIGGER UACC YES
[2025-04-17 11:32] LABS: D Dimer High Sensitivity 262 NG/ML
[2025-04-17 11:45] LABS: UACC Culture Trigger YES
--- OUTSIDE RECORDS SUMMARY | 2025-04-17 13:38 | XMS_ITS | Clinical Summary ---
Author Organization [facility] Address [address] [place] [address] Phone Care Team Providers Care Payment Manager Name Role Phone Hung Montelongo MD Primary Care Provider [phone] [phone] Allergies No known active allergies Medications VENTOLIN HFA 90 mcg/actuation inhaler TAKE 2 PUFFS INHALED EVERY 6 HOURS NEEDED FOR SHORTNESS OF BREATH OR WHEEZING FOR 30 DAYS 3 Active VITAMIN D3 25 mcg (1,000 unit) capsule TOME WU C PSULA TODOS LOS D 4 Active ferrous sulfate 325 mg (65 mg quechan iron) tablet TOME WU TABLETA TODOS LOS [...] topic Medical Devices Not on file Insurance [facility] [place] [address] [employer] [facility] Care Teams Payment Manager Relationship Specialty Start Date End Date Hung Montelongo MD [address] [place] [address] [place] [address] PCP - General Internal Medicine 07/24/23 Additional Source Comments The information contained in this document represents components of the legal health record. It is not the complete legal health record.[facility]
--- OUTSIDE RECORDS SUMMARY | 2025-04-17 13:38 | XMS_ITS | Encounter Summary ---
Author Organization [employer] Address [address] [facility] 7t [place] [address] Care Team Providers Care Family Law Paralegal Name Role Phone Unavailable Primary Care Provider Unavailabl e Encounter Details Date Type Department Care Team (Latest Contact Info) Description 11/30/2020 Abstract [facility] CONVERSIONS Dental, Provider, DDS Social [...] Description 06/05/2025 12:45 PM EST Office Visit [facility] ADULT DENTAL [address] [place] [address] Chari Greenwood [address] [place] [address] documented as of this encounter Visit Diagnoses Not on filedocumented in this encounter
--- OUTSIDE RECORDS SUMMARY | 2025-04-17 13:38 | XMS_ITS | Encounter Summary ---
Author Organization [employer] Address [address] [facility] [address]t [place] [address] Care Team Providers Care Recruitment Coordinator Name Role Phone Unavailable Primary Care Provider Unavailabl e Encounter Details Date Type Department Care Team (Latest Contact Info) Description 01/20/2022 Abstract [facility] CONVERSIONS Dental, Provider, DDS Social History Tobacco [...] Description 06/05/2025 12:45 PM EST Office Visit [facility] ADULT DENTAL [address] [place] [address] Chari Greenwood [address] [place] [address] documented as of this encounter Visit Diagnoses Not on filedocumented in this encounter
--- OUTSIDE RECORDS SUMMARY | 2025-04-17 13:38 | XMS_ITS | Clinical Summary ---
Author Organization [employer] Address [address] [facility] [address]t [place] [address] Care Team Providers Care Penology Professor Name Role Phone Unavailable Primary Care Provider [...] Description 06/05/2025 12:45 PM EST Office Visit [facility] ADULT DENTAL [address] [place] [address] Timo, Chari [address] [place] [address] Health Maintenance Due Date Last Done Comments [...] topic Meningococcal Vaccine Aged Out No kae esetban eligible based on patient's age to complete [...] Most Recently Relevant to Health Maintenance Insurance [facility] MEDICAID STAND ADULT
--- OUTSIDE RECORDS SUMMARY | 2025-04-17 13:39 | XMS_ITS | Clinical Summary ---
Author Organization [facility] Address [address] [address] Phone Care Team Providers Care Basting Marker Name Role Phone Hung Montelongo MD Primary Care Provider +1- [phone] Allergies Active Allergy Reactions Criticality Noted Date [...] [facility] [address] [place] [address] Alejandro Benz MD [address] [facility] [address] [place] [id number] Health Maintenance Due Date Last Done Comments Breast Cancer Screening 1970 Hepatitis B Vaccine (1 of 3 - 19+ 3-dose series) 11/17 Pneumococcal Vaccine: 50+ Years (1 of 2 - PCV) 989 Colorectal Cancer Screening: Annual FOBT 2018 Colorectal Cancer Screening: Colonoscopy 2018 Colorectal Cancer Screening: Sigmoidoscopy 2018 Influenza Vaccine (#1) 2024 [place] [address] [facility] Medicaid Care Teams Basting Marker Relationship Specialty Start Date End Date Hung Montelongo MD [address] [place] [address] PCP - General 05/11/20
== END 2025-04-17 10:42 | disposition home or self-care (01) ==
LOC: HO.LAB 10:41
PROVIDERS: Hospitalist; Nurse Practitioner Family; PCP Internal Medicine; Visit Provider Physician Assistant Surgical
DX: I26.94 Multiple subsegmental thrombotic pulmonary emboli without acute cor pulmonale (principal); Z98.84 Bariatric surgery status
CPT/HCPCS: 36415; 81001; 83036; 85379; 87086

== ENCOUNTER 2025-04-18 08:41 | Day surgery (SDC) | payer OTHER, SELFPAY ==
--- OUTSIDE RECORDS SUMMARY | 2025-03-20 19:26 | XMS_ITS | Encounter Summary ---
Author Organization [employer] Address [address] [facility] 7t [place] [address] Care Team Providers Care Solution Design And Analysis Manager Name Role Phone Unavailable Primary Care Provider Unavailabl e Encounter Details Date Type Department Care Team (Latest Contact Info) Description 01/20/2022 Abstract [facility] CONVERSIONS Dental, Provider, DDS Social [...] Description 06/05/2025 12:45 PM EST Office Visit [facility] ADULT DENTAL [address] [place] [address] Chari Greenwood [address] [place] [address] documented as of this encounter Visit Diagnoses Not on filedocumented in this encounter
--- OUTSIDE RECORDS SUMMARY | 2025-03-20 19:26 | XMS_ITS | Encounter Summary ---
Author Organization [employer] Address [address] [facility] 7[address] [place] [address] Care Team Providers Care Furnace Process Supervisor Name Role Phone Unavailable Primary Care Provider Unavailabl e Encounter Details Date Type Department Care Team (Latest Contact Info) Description 11/30/2020 Abstract [facility] CONVERSIONS Dental, Provider, DDS Social [...] Description 06/05/2025 12:45 PM EST Office Visit [facility] ADULT DENTAL [address] [place] [address] Chari Greenwood [address] [place] [address] documented as of this encounter Visit Diagnoses Not on filedocumented in this encounter
--- OUTSIDE RECORDS SUMMARY | 2025-03-20 19:26 | XMS_ITS | Clinical Summary ---
Author Organization [employer] Address [address] [facility] 7t [place] [address] Care Team Providers Care Financial Reporting Specialist Name Role Phone Unavailable Primary Care [...] Description 06/05/2025 12:45 PM EST Office Visit [facility] ADULT DENTAL [address] [place] [address] Timo, Chari [address] [place] [address] Health Maintenance Due Date Last Done Comments [...] Most Recently Relevant to Health Maintenance Insurance [facility] MEDICAID STAND ADULT
--- OUTSIDE RECORDS SUMMARY | 2025-03-20 19:26 | XMS_ITS | Clinical Summary ---
Author Organization [facility] Address [address] [place] [address] Phone Care Team Providers Care Director Of Retail Marketing Name Role Phone Hung Montelongo MD Primary Care Provider +1 -[phone] Allergies No known active allergies Medications VENTOLIN HFA 90 mcg/actuation inhaler TAKE 2 PUFFS INHALED EVERY 6 HOURS NEEDED FOR SHORTNESS OF BREATH OR WHEEZING FOR 30 DAYS 3 Active VITAMIN D3 25 mcg (1,000 unit) capsule TOME WU C PSULA TODOS LOS D 4 Active ferrous sulfate 325 mg (65 mg guidiville iron) tablet TOME WU TABLETA TODOS LOS [...] Medical Devices Not on file [place] [address] [facility] Care Teams Director Of Retail Marketing Relationship Specialty Start Date End Date Hung Montelongo MD [address] [place] [address] [place] [address] PCP - General Internal Medicine 07/24/23 Additional Source Comments The information contained in this document represents components of the legal health record. It is not the complete legal health record.[facility]
--- OUTSIDE RECORDS SUMMARY | 2025-03-20 19:26 | XMS_ITS | Clinical Summary ---
Author Organization [facility] Address [address] [address] Phone Care Team Providers Care Inward Toll Operator Name Role Phone Hung Montelongo MD Primary Care Provider +1- [phone] Allergies Active Allergy Reactions Criticality Noted Date [...] Visit [facility] [address] [place] [address] Alejandro Benz MD [address] [facility] [address] [place] [phone] Health Maintenance Due Date Last Done Comments Breast Cancer Screening 1970 Hepatitis B Vaccine (1 of 3 - 19+ 3-dose series) 11/17 Pneumococcal Vaccine: 50+ Years (1 of 2 - PCV) 989 Colorectal Cancer Screening: Annual FOBT 2018 Colorectal Cancer Screening: Colonoscopy 2018 Colorectal Cancer Screening: Sigmoidoscopy 2018 Influenza Vaccine (#1) 2024 [place] [address] [facility] Medicaid Care Teams Inward Toll Operator Relationship Specialty Start Date End Date Hung Montelongo MD [address] [place] [address] PCP - General 05/11/20
--- NOTE | 2025-04-15 10:20 | HO.ANESPROP2 ---
Documented by User: Yanet Brunner NP 04/17/25 08:15 HPI - Anesthesia Eval Consult details Narrative: 54yo F for Bilateral Sacroiliac Joint Injection s/p right Lithotripsy ESW 04/02/24 with MAC s/p cystoscopy 02/21/25 with GA LMA size 4 Orthostatic hypotension: prior cardiac testing included -Cardiac event monitor was done on 07/11/2023 for 30 days showing sinus rhythm with heart rate range 36 to 131, 2 brief paroxysmal SVT episodes, rare PACs and PVCs. Two symptom events correlated with sinus tach. -Echocardiogram was done 07/11/2023 which was normal study. -Tilt-table test done on 10/17/2023 showed appropriate heart rate and blood pressure response to tilt. This time instructed to take midodrine t.i.d., with meals. MIGUEL on CPAP H/O PE 01/2024: eliquis was stopped per Jan 2025 pulmo note and 09/2024 Heme note. Question if patient has remained on eliquis by choice, question of lovenox bridge. Pain team notified. [facility] Active Problems Active Problems: All Active Problems RLS (restless legs syndrome) (Acute) Renal stone (Acute 11/23/20) Essential hypertension (Acute 11/23/20) Chronic kidney disease, stage 2 (mild) (Acute 08/31/21) Hydronephrosis with urinary obstruction due to ureteral calculus (Acute) Renal cyst, acquired (Acute) OAB (overactive bladder) (Acute) IBS (irritable bowel syndrome) (Acute) Umbilical mass (Acute) Periorbital cellulitis of right eye (Acute) Periodic limb movements of sleep (Acute) Fatigue due to sleep pattern disturbance (Acute) Edema (Acute) Incarcerated umbilical hernia (Acute) Pruritus (Acute) Encounter for well woman exam with routine gynecological exam (Acute) Umbilical hernia (Acute) Multiple thyroid nodules (Acute) Thyroid nodule (Acute) Abdominal wall pain in left flank (Acute) Pulmonary embolism (Chronic) Left-sided weakness (Acute) Shortness of breath (Acute) Cough (Acute) Chest pain (Acute) Depression with suicidal ideation (Acute) Ventral hernia (Acute) Flank hernia (Acute) Sacroiliac joint dysfunction of both sides (Acute) Abdominal pannus (Acute) Depression (Acute) Hypotension (Acute) Lower urinary tract symptoms (Acute) Osteoporosis screening (Acute) Paresthesia (Acute) Recurrent urinary tract infection (Acute) Orthostatic dizziness (Acute) Symptomatic abdominal panniculus (Acute) Panniculitis (Acute) Bilateral leg weakness (Acute) Obesity (Acute) Excess skin (Acute) Urinary incontinence (Acute) Urinary frequency (Acute) MDD (major depressive disorder), recurrent, severe, with psychosis (Acute) Post traumatic stress disorder (PTSD) (Acute) Arthralgia (Acute) Knee pain, bilateral (Acute) Hip pain, bilateral (Acute) Bilateral elbow joint pain (Acute) Abdominal wall mass (Acute) Transaminitis (Acute) Renal cyst (Acute) Memory impairment (Acute) Left lumbar radiculopathy (Acute) Sacroiliac joint pain (Acute) Overweight (Acute) Colon cancer screening (Acute) Constipation (Acute) MIGUEL (obstructive sleep apnea) (Acute) Nephrolithiasis (Acute) Dyspareunia, female (Acute) Painful sexual intercourse (Acute) Skin laxity (Acute) Dysuria (Acute) Overweight (BMI 25.0-29.9) (Acute) Pure hypercholesterolemia (Acute) Left breast mass (Acute) Asthma (Acute) Pulmonary nodules (Acute) PTSD (post-traumatic stress disorder) (Acute) Obesity (BMI 30-39.9) (Acute) Renal cyst (Acute) Diverticulosis (Acute) Tubular adenoma (Acute) Spondylosis of lumbar spine (Acute) Sacroiliitis (Acute) Dizziness of unknown etiology (Acute) Chronic constipation (Acute) History of gastric bypass (Acute ~2008) Dyspareunia (Acute) Pyelonephritis (Acute) Ingrown toenail (Acute) Iron deficiency anemia (Acute) Major depression, recurrent (Acute) Anxiety (Acute) Insomnia (Acute) Tremor (Acute) Orthostatic hypotension (Acute) Incisional hernia without obstruction or gangrene (Acute) Avascular necrosis of femoral head (Acute) Bilateral carpal tunnel syndrome (Acute) Peroneal neuropathy (Acute) Lumbar degenerative disc disease (Acute) Vitamin D deficiency (Acute) GERD (gastroesophageal reflux disease) (Acute) Migraine (Acute) Hyperlipidemia (Acute) Past Medical History Medical History Pulmonary emboli Chronic kidney disease, stage 3 (11/23/20) History of electroconvulsive therapy (05/06/24) Solitary kidney, acquired Renal calculus, right Bacteremia Pure hypercholesterolemia Left breast mass Pulmonary nodules Chronic kidney disease, stage III (moderate) Obesity (BMI 30-39.9) Renal cyst Diverticulosis Tubular adenoma Asthma Spondylosis of lumbar spine Sacroiliitis Dizziness of unknown etiology Chronic constipation Hx of schizophrenia Panic attacks PTSD (post-traumatic stress disorder) Dyspareunia Pyelonephritis Ingrown toenail Iron deficiency anemia Major depression, recurrent Anxiety Insomnia Tremor Orthostatic hypotension Incisional hernia without obstruction or gangrene Avascular necrosis of femoral head Bilateral carpal tunnel syndrome Peroneal neuropathy Lumbar degenerative disc disease Vitamin D deficiency GERD (gastroesophageal reflux disease) Migraine Hyperlipidemia Family History Family History Father Liver cancer Mother Breast cancer Sister Lung cancer Other Mental health problem Family history of problems with anesthesia: No Surgical History Surgical History Hx of umbilical hernia repair (10/02/24) History of surgery (10/17/24) Hx of lithotripsy History of left nephrectomy (~1999) History of colonoscopy History of surgery Hx of cystoscopy History of bilateral breast reduction surgery History of hysterectomy History of cholecystectomy History of endoscopy (~06/2016) History of bladder repair surgery (~03/2015) S/P cystoscopy (~07/30/12) S/P panniculectomy History of hernia repair (~03/29/10) History of bladder surgery (~10/2009) History of gastric bypass (~2008) History of incisional hernia repair (~1999) Hx of umbilical hernia repair (~1999) S/P laparoscopic sleeve gastrectomy History of Problems with Anesthesia: No Social History Social History Household Members: Spouse Housing: Apartment Are you a primary small animal caretaker to a significant other at home: No Do you presently have visiting nurse or other home services: Yes Alcohol intake: never Patient Tobacco Use Status: Never used Tobacco e-Cigarette/Vaping Use: Never Used Second Hand Smoke Exposure: No Have you been hit, kicked, punched, or otherwise hurt by someone within the past year? If so, by whom?: No Are you DNR?: No Advance Directives: No Advance Directives Information Provided: Yes Advance Directives Date on File: 07/12/21 service: No Current occupational status: disabled Sexual orientation: Straight/Heterosexual Gender identity: Female Cognitive needs: No Hearing needs: No Vision needs: Yes Meds Allergies Allergy/AdvReac Type Severity Reaction Status Date / Time ibuprofen (From Motrin) Allergy Unknown Verified 04/15/25 15:41 acetaminophen AdvReac Intermediate Liver Verified 04/15/25 15:41 problems atorvastatin AdvReac Intermediate elevated Verified 04/15/25 15:41 LFTs Citalopram Analogues AdvReac Intermediate Itching Verified 04/15/25 15:41 prednisone AdvReac Intermediate Bloating Verified 04/15/25 15:41 rosuvastatin AdvReac Intermediate elevated Verified 04/15/25 15:41 LFTs Home Medications ?Medication ?Instructions ?Recorded ?Confirmed ?Last Taken ?Type albuterol sulfate 90 mcg/actuation 2 puff inhalation Q6H PRN 02/11/25 04/16/25 04/18/25 History aerosol inhaler (Ventolin HFA) Shortness Of Breath Or Wheezing furosemide 20 mg tablet (Lasix) 20 mg PO DAILY PRN Edema 02/11/25 04/16/25 Unknown History cariprazine 4.5 mg capsule 4.5 mg PO DAILY 02/21/25 04/16/25 Unknown History (Vraylar) diphenhydramine HCl 25 mg capsule 50 mg PO BEDTIME 02/21/25 04/16/25 Unknown History lorazepam 1 mg tablet 1 mg PO TID severe Anxiety 02/21/25 04/16/25 04/02/25 History topiramate 25 mg tablet 25 mg PO DAILY 02/21/25 04/16/25 Unknown History verapamil 40 mg tablet 40 mg PO BID 02/21/25 04/16/25 04/02/25 History Exam Pertinent Lab Results Pertinent Lab Results: Laboratory Tests 02/27/25 11:03 WBC 8.9 RBC 4.08 L Hgb 13.2 Hct 41.2 D Plt Count 302 D Sodium 143 Potassium 4.1 Chloride 109 H Carbon Dioxide 27 BUN 19 H Creatinine 1.20 Narrative Narrative: EKG 11/2024 Vent. Rate : 64 BPM Atrial Rate : 64 BPM P-R Int : 148 ms QRS Dur : 72 ms QT Int : 446 ms P-R-T Axes : 29 53 25 degrees QTcB Int : 460 ms Normal sinus rhythm Low voltage QRS Borderline ECG When compared with ECG of 01-Feb-2024 08:12, No significant change was found Assessment and Plan Assessment Anesthesia Assessment: Chart Reviewed Final Anesthetic Review Family History of Problems with Anesthesia: No History of Problems with Anesthesia: No Documented by User: Isa Gill MD 04/18/25 11:23 PMFSH Past Medical History Medical History Pulmonary emboli Chronic kidney disease, stage 3 (11/23/20) History of electroconvulsive therapy (05/06/24) Solitary kidney, acquired Renal calculus, right Bacteremia Pure hypercholesterolemia Left breast mass Pulmonary nodules Chronic kidney disease, stage III (moderate) Obesity (BMI 30-39.9) Renal cyst Diverticulosis Tubular adenoma Asthma Spondylosis of lumbar spine Sacroiliitis Dizziness of unknown etiology Chronic constipation Hx of schizophrenia Panic attacks PTSD (post-traumatic stress disorder) Dyspareunia Pyelonephritis Ingrown toenail Iron deficiency anemia Major depression, recurrent Anxiety Insomnia Tremor Orthostatic hypotension Incisional hernia without obstruction or gangrene Avascular necrosis of femoral head Bilateral carpal tunnel syndrome Peroneal neuropathy Lumbar degenerative disc disease Vitamin D deficiency GERD (gastroesophageal reflux disease) Migraine Hyperlipidemia Family History Family History Father Liver cancer Mother Breast cancer Sister Lung cancer Other Mental health problem Surgical History Surgical History Hx of umbilical hernia repair (10/02/24) History of surgery (10/17/24) Hx of lithotripsy History of left nephrectomy (~1999) History of colonoscopy History of surgery Hx of cystoscopy History of bilateral breast reduction surgery History of hysterectomy History of cholecystectomy History of endoscopy (~06/2016) History of bladder repair surgery (~03/2015) S/P cystoscopy (~07/30/12) S/P panniculectomy History of hernia repair (~03/29/10) History of bladder surgery (~10/2009) History of gastric bypass (~2008) History of incisional hernia repair (~1999) Hx of umbilical hernia repair (~1999) S/P laparoscopic sleeve gastrectomy Social History Social History Household Members: Spouse Housing: Apartment Are you a primary small animal caretaker to a significant other at home: No Do you presently have visiting nurse or other home services: Yes Alcohol intake: never Patient Tobacco Use Status: Never used Tobacco e-Cigarette/Vaping Use: Never Used Second Hand Smoke Exposure: No Have you been hit, kicked, punched, or otherwise hurt by someone within the past year? If so, by whom?: No Are you DNR?: No Advance Directives: No Advance Directives Information Provided: Yes Advance Directives Date on File: 07/12/21 service: No Current occupational status: disabled Sexual orientation: Straight/Heterosexual Gender identity: Female Cognitive needs: No Hearing needs: No Vision needs: Yes Meds Allergies Allergy/AdvReac Type Severity Reaction Status Date / Time ibuprofen (From Motrin) Allergy Unknown Verified 04/15/25 15:41 acetaminophen AdvReac Intermediate Liver Verified 04/15/25 15:41 problems atorvastatin AdvReac Intermediate elevated Verified 04/15/25 15:41 LFTs Citalopram Analogues AdvReac Intermediate Itching Verified 04/15/25 15:41 prednisone AdvReac Intermediate Bloating Verified 04/15/25 15:41 rosuvastatin AdvReac Intermediate elevated Verified 04/15/25 15:41 LFTs Home Medications ?Medication ?Instructions ?Recorded ?Confirmed ?Last Taken ?Type albuterol sulfate 90 mcg/actuation 2 puff inhalation Q6H PRN 02/11/25 04/16/25 04/18/25 History aerosol inhaler (Ventolin HFA) Shortness Of Breath Or Wheezing furosemide 20 mg tablet (Lasix) 20 mg PO DAILY PRN Edema 02/11/25 04/16/25 Unknown History cariprazine 4.5 mg capsule 4.5 mg PO DAILY 02/21/25 04/16/25 Unknown History (Vraylar) diphenhydramine HCl 25 mg capsule 50 mg PO BEDTIME 02/21/25 04/16/25 Unknown History lorazepam 1 mg tablet 1 mg PO TID severe Anxiety 02/21/25 04/16/25 04/02/25 History topiramate 25 mg tablet 25 mg PO DAILY 02/21/25 04/16/25 Unknown History verapamil 40 mg tablet 40 mg PO BID 02/21/25 04/16/25 04/02/25 History Exam Airway Mallampati Class: II TM Dist: >3cm Neck ROM: Full Heart: rrr Lungs: cta Assessment and Plan Assessment Anesthesia Assessment: Anesthesia Plan Discussed Final Anesthetic Review NPO: Yes ASA Class: III Final Preanesthetic Review: No Changes in Pt Med Stat, Meds/Allgs Chart Reviewed, Consent Obtained/Reviewed and Anes Risks/Benef Reviewed Patient Risk: Intermediate Procedure Risk: Low Anesthetic Plan Anesthetic Plan: MAC: and Agree w/ Assess. and Plan Disposition: Standard PACU
[2025-04-16 14:05] VITALS: BMI 32.4
--- NOTE | ~2025-04-18 | FL_ITS ---
EXAMINATION: FL GUIDANCE ONLY HISTORY: si joint injection, bilateral COMPARISON: None available. TECHNIQUE: Fluoroscopy time: 19 seconds. Cumulative Dose: 3.80 mGy. DAP: 163.63 uGym2 Images: 4. FINDINGS: Fluoroscopic spot films of the pelvis demonstrate needles and contrast material in the regions of the bilateral sacroiliac joints. FL/FL guidance in OR IMPRESSION: Fluoroscopy during procedure. Please see procedure report for additional information. Electronically signed by: Vincenzo Betancourt MD 04/18/2025 01:31 PM [facility]
[2025-04-18 09:39] VITALS: BP 120/84; PULSE 55; RESP 20; TEMP 36.1; O2SAT 98; BMI 32.6
[2025-04-18] MEDS: Lactated Ringers 1,000 ML 100 ML IVCONT (10:08)
--- NOTE | 2025-04-18 12:50 | MHC.SHP ---
Pre-Procedural Eval Section A - 24 Hr Update-Section A only Date of Service: 04/18/25 The patient is an INPATIENT: No Changes since office visit: Yes Patient answered all questions The patient has been examined within 24 hours of the surgical procedure. The History & Physical has been completed within 30 days and I have reviewed it.: No Section B - Complete if H&P > 30 days Chief Complaint: Sacroiliitis, not elsewhere classified Details of Present Illness: As above Relevant Family History (Specify if Yes): No Relevant Social History: None Present Medications: None Medical History: No relevant PMH History of Previous Operations: No relevant previous surgery Allergies: Allergies Allergy/AdvReac Type Severity Reaction Status Date / Time ibuprofen (From Motrin) Allergy Unknown Verified 04/15/25 15:41 acetaminophen AdvReac Intermediate Liver Verified 04/15/25 15:41 problems atorvastatin AdvReac Intermediate elevated Verified 04/15/25 15:41 LFTs Citalopram Analogues AdvReac Intermediate Itching Verified 04/15/25 15:41 prednisone AdvReac Intermediate Bloating Verified 04/15/25 15:41 rosuvastatin AdvReac Intermediate elevated Verified 04/15/25 15:41 LFTs Review of Systems Sugical H&P ROS: Negative: Constitution, Cardiovascular, Respiratory, Neurological, Psychiatric, Hem-Onc, Allergic/Immunologic, Gastrointestinal, Genitourinary, Musculoskeletal, Integumentary, Endocrine and Eyes/Ears/Nose/Throat Exam Surgical H&P Exam: Normal: HEENT, Normal: Heart, Normal: Lungs, Normal: Extremities, Normal: Abdomen, Normal: Skin and Normal: Neurological Plan Diagnosis/Plan: Unchanged I have reviewed the history and physical and performed a pertinent physical examination on my patient. No changes have occurred unless specified. Time Spent With Patient Time: Total time managing care of this patient today ____ minutes.
--- NOTE | 2025-04-18 13:11 | P.BOP_ITS ---
Brief Operative Note Date of Service: 04/18/25 Pre-op diagnosis: Sacroiliitis bilateral SI joint dysfunction Post-op diagnosis: same Procedure: Therapeutic sacroiliac joint injection bilateral Surgeon: Brando Smith MD Anesthesia: MAC Was an Nut Processing Supervisor used for this Procedure?: No Estimated blood loss (mL): 0 Pathology: none sent Condition: stable Disposition: PACU
--- NOTE | 2025-04-18 13:12 | P.OP_ITS ---
Operative Note Operative Note Date of Service: 04/18/25 Narrative: Bilateral therapeutic sacroiliac joint injection. the risks, benefits and alternatives were discussed with the patient and informed consent was obtained, patient was placed in the prone position on the OR Table. ASA monitors were applied and patient was sedated. Time out was performed delineating correct site and side of the procedure , name and of the patient, patient participated in time out procedure. The lower back and upper buttocks of the patient were prepped with ChloraPrep and draped with sterile self adhesive utility towels. C-arm was brought over the operating field and picture of the right SI joint was demonstrated on the screen. Tilting C-arm contralateral to the left the posterior silhouette of the sacroiliac joint was superimposed on anterior silhouette of the sacroiliac adarsh int. The point slightly medial to the sacroiliac joint silhouette was inserted with 22 gauge 3-1/2 inch spinal needle was inserted through the skin and advanced toward the sacroiliac joint in tunnel vision fashion. When the needle entered the sacroiliac joint capsule injection of the contrast was performed delineating intra-articular and minimally periarticular spread of the contrast. After that injection of the treatment solution of ropivacaine 0.5% 5 cc mixed with kenalog 40 mg into the joint was performed. Upon completion of the injection needle was withdrawn and the procedure was performed on the left side in the mirroring fashion. Total dose of Kenalog was 80 mg. sterile Band-Aid was applied. The patient tolerated the procedure well.
[2025-04-18 13:16] VITALS: BP 108/65; PULSE 62; RESP 16; TEMP 36.2; O2SAT 94
[2025-04-18 13:29] VITALS: BP 112/64; PULSE 57; RESP 16; TEMP 36.3; O2SAT 100
== END 2025-04-18 13:53 | disposition home or self-care (01) ==
PROVIDERS: PCP Internal Medicine; Visit Provider Anesthesiology
PROC: 3E0U33Z Introduction of Anti-inflammatory into Joints, Percutaneous Approach (ICD-10-PCS; CPT 27096; principal; 2025-04-18 12:40)
DX: M46.1 Sacroiliitis, not elsewhere classified (principal); M47.816 Spondylosis without myelopathy or radiculopathy, lumbar region; M53.3 Sacrococcygeal disorders, not elsewhere classified; E78.00 Pure hypercholesterolemia, unspecified; N18.30 Chronic kidney disease, stage 3 unspecified; G57.30 Lesion of lateral popliteal nerve, unspecified lower limb; J45.909 Unspecified asthma, uncomplicated; R91.8 Other nonspecific abnormal finding of lung field; D50.9 Iron deficiency anemia, unspecified; E55.9 Vitamin D deficiency, unspecified; Z88.8 Allergy status to other drugs, medicaments and biological substances; Z87.442 Personal history of urinary calculi; Z98.84 Bariatric surgery status; Z90.49 Acquired absence of other specified parts of digestive tract; Z98.890 Other specified postprocedural states
CPT/HCPCS: 27096; J2003; J2250; J2795; J3010; J3301; Q9967

== ENCOUNTER → 2025-04-18 08:41 | Outpatient (BNV) | payer OTHER, SELFPAY | PROVIDERS: PCP Internal Medicine; Visit Provider Anesthesiology | DX: M46.1 Sacroiliitis, not elsewhere classified (principal) | CPT/HCPCS: 27096 ==

== ENCOUNTER 2025-04-18 15:27 | Emergency (ER) | payer OTHER, SELFPAY ==
--- NOTE | ~2025-04-18 | XR_ITS ---
EXAMINATION: XR CHEST CLINICAL INFORMATION: sob. lung pain COMPARISON: Chest 10/25/2022 TECHNIQUE: 2 views of the chest were obtained. FINDINGS: No significant abnormality is noted involving the heart, lungs, mediastinum, bony thorax or soft tissues. XR/XR chest 2V IMPRESSION: Unremarkable chest examination. Electronically signed by: Barry Stephenson MD 04/18/2025 04:33 PM [facility]
--- NOTE | ~2025-04-18 | CT_ITS ---
CLINICAL HISTORY: Right-sided pleuritic pain Exam: Contrast-enhanced chest CT pulmonary angiogram with multiplanar reformats. Comparison: CT/VT/SR - CT CHEST ANGIOGRAPHY WITH IV CONTRAST - 02/01/2024 06:34 PM EDT Findings: There is no pulmonary embolism or thoracic aortic dissection. An aberrant right subclavian artery is present, anatomic variant. No mediastinal or hilar masses or adenopathy. No pleural or pericardial effusions. A small hiatal hernia is present with equivocal mild wall thickening of the distal esophagus, raising the possibility of esophagitis. Images below the diaphragms reveal no acute abnormalities. A right renal cyst measuring up to 5.4 cm cross-sectional dimension (6; 4032, 1 Hounsfield unit density) is noted. Lungs are free of focal consolidation. No pulmonary nodules or parenchymal lesions. Airways are patent. No pneumothorax. No evidence of pulmonary edema. Slight pulmonary mosaic attenuation is nonspecific although may be seen in small airways disease. Osseous structures reveal no destructive osseous lesions. Impression: 1. No pulmonary embolism, aortic dissection or pulmonary consolidation. 2. Slight pulmonary mosaic attenuation is nonspecific although may be seen in small airways disease. 3. Small hiatal hernia and equivocal mild esophageal wall thickening could suggest esophagitis. This document has been electronically signed by: Tomas Youssef MD on 04/18/2025 21:00:06
[2025-04-18 15:39] VITALS: BP 149/68; PULSE 77; RESP 18; TEMP 36.6; O2SAT 97; BMI 32.9
--- NOTE | 2025-04-18 15:39 | ED.GENADULT ---
HPI - General Adult General Chief complaint: Dyspnea Stated complaint: Med reaction? Time Seen by Provider: 04/18/25 19:38 History of Present Illness ED Provider: Saeed Ludwig MD HPI narrative: This is a 54-year-old female who has a previous right main pulmonary artery PE diagnosed 2023 she has been on apixaban since that time she stopped the medication 5 days ago at the advice of her physician who is going to perform pain injection of the lumbar spine which was performed today uneventfully. She said since the procedure she has had some right upper pleuritic pain no cough no hemoptysis does not know does not notice any swelling of the leg. No fever or chills no anginal symptoms Related Data Home Medications ?Medication ?Instructions ?Recorded ?Confirmed albuterol sulfate 90 mcg/actuation 2 puff inhalation Q6H PRN 02/11/25 04/16/25 aerosol inhaler (Ventolin HFA) Shortness Of Breath Or Wheezing furosemide 20 mg tablet (Lasix) 20 mg PO DAILY PRN Edema 02/11/25 04/16/25 cariprazine 4.5 mg capsule 4.5 mg PO DAILY 02/21/25 04/16/25 (Vraylar) diphenhydramine HCl 25 mg capsule 50 mg PO BEDTIME 02/21/25 04/16/25 lorazepam 1 mg tablet 1 mg PO TID severe Anxiety 02/21/25 04/16/25 topiramate 25 mg tablet 25 mg PO DAILY 02/21/25 04/16/25 verapamil 40 mg tablet 40 mg PO BID 02/21/25 04/16/25 Previous Rx's ?Medication ?Instructions ?Recorded solifenacin 10 mg tablet (Vesicare) 10 mg PO DAILY #30 tabs 12/27/24 meclizine 25 mg tablet 25 mg PO TID PRN dizziness 30 days 12/29/24 #90 tabs hyoscyamine sulfate 0.125 mg 0.125 mg PO BID PRN abdominal 02/13/25 disintegrating tablet discomfort #60 tabs gabapentin 800 mg tablet 800 mg PO TID 30 days #90 tabs 02/19/25 Adult pull ups #240 ea 03/07/25 tramadol 50 mg tablet 100 mg (2 x 50 mg) PO Q8H PRN 03/13/25 severe pain 30 days #60 tabs linaclotide 290 mcg capsule 290 mcg PO QAM #30 caps 03/17/25 (Linzess) apixaban 2.5 mg tablet (Eliquis) 2.5 mg PO BID 30 days #60 tabs 03/19/25 oxycodone 5 mg tablet 5 mg PO Q8-12H PRN pain #6 tabs 03/24/25 midodrine 10 mg tablet 10 mg PO TID@0900,1300,1700 #90 03/30/25 tabs tirzepatide (weight loss) 2.5 2.5 mg (0.5 mL) subcut QWEEK #2 mL 03/31/25 mg/0.5 mL subcutaneous pen injector (Zepbound) oxycodone 5 mg tablet 5 mg PO Q8-12H PRN pain #12 tabs 04/02/25 rizatriptan 10 mg disintegrating See Rx Instructions PO .COMPLEX 30 04/07/25 tablet days #10 tabs cholecalciferol (vitamin D3) 25 25 mcg PO DAILY 90 days #90 caps 04/12/25 mcg (1,000 unit) capsule (Vitamin D3) melatonin 5 mg tablet 10 mg (2 x 5 mg) PO BEDTIME 04/12/25 Insomnia #60 tabs nidra tonic motor device RLS #2 ea 04/12/25 lidocaine 5 % topical patch 1 patch topical DAILY #30 ea 04/15/25 trazodone 50 mg tablet 50 mg PO BEDTIME PRN insomnia 30 04/15/25 days #30 tabs Allergies Allergy/AdvReac Type Severity Reaction Status Date / Time ibuprofen (From Motrin) Allergy Unknown Verified 04/20/25 19:32 acetaminophen AdvReac Intermediate Liver Verified 04/20/25 19:32 problems atorvastatin AdvReac Intermediate elevated Verified 04/20/25 19:32 LFTs Citalopram Analogues AdvReac Intermediate Itching Verified 04/20/25 19:32 prednisone AdvReac Intermediate Bloating Verified 04/20/25 19:32 rosuvastatin AdvReac Intermediate elevated Verified 04/20/25 19:32 LFTs [facility] Past Medical History Medical History Pulmonary emboli Chronic kidney disease, stage 3 (11/23/20) History of electroconvulsive therapy (05/06/24) Solitary kidney, acquired Renal calculus, right Bacteremia Pure hypercholesterolemia Left breast mass Pulmonary nodules Chronic kidney disease, stage III (moderate) Obesity (BMI 30-39.9) Renal cyst Diverticulosis Tubular adenoma Asthma Spondylosis of lumbar spine Sacroiliitis Dizziness of unknown etiology Chronic constipation Hx of schizophrenia Panic attacks PTSD (post-traumatic stress disorder) Dyspareunia Pyelonephritis Ingrown toenail Iron deficiency anemia Major depression, recurrent Anxiety Insomnia Tremor Orthostatic hypotension Incisional hernia without obstruction or gangrene Avascular necrosis of femoral head Bilateral carpal tunnel syndrome Peroneal neuropathy Lumbar degenerative disc disease Vitamin D deficiency GERD (gastroesophageal reflux disease) Migraine Hyperlipidemia Surgical History Hx of umbilical hernia repair (10/02/24) History of surgery (10/17/24) Hx of lithotripsy History of left nephrectomy (~1999) History of colonoscopy History of surgery Hx of cystoscopy History of bilateral breast reduction surgery History of hysterectomy History of cholecystectomy History of endoscopy (~06/2016) History of bladder repair surgery (~03/2015) S/P cystoscopy (~07/30/12) S/P panniculectomy History of hernia repair (~03/29/10) History of bladder surgery (~10/2009) History of gastric bypass (~2008) History of incisional hernia repair (~1999) Hx of umbilical hernia repair (~1999) S/P laparoscopic sleeve gastrectomy Family History Family History Father Liver cancer Mother Breast cancer Sister Lung cancer Other Mental health problem Social History Social History Household Members: Spouse Housing: Apartment Are you a primary career and transition teacher to a significant other at home: No Do you presently have visiting nurse or other home services: Yes Alcohol intake: never Patient Tobacco Use Status: Never used Tobacco e-Cigarette/Vaping Use: Never Used Second Hand Smoke Exposure: No Advance Directives: Yes Advance Directives on File: Yes Advance Directives Date on File: 07/12/21 Do you have a plan to hurt others: No Plan service: No Current occupational status: disabled Sexual orientation: Straight/Heterosexual Gender identity: Female Cognitive needs: No Hearing needs: No Vision needs: Yes Physical Exam ED Exam Exam: EXAM: Gen: Alert, awake, well appearing, well hydrated. Head: Atraumatic Eyes: Anicteric, Normal conjunctiva. ENT: Moist mucosa, no pallor. ? Neck: Supple. Skin: ?No observable rash or bruising on exposed or examined skin Respiratory: Breathing comfortably, No distress.Clear to auscultation bilaterally, symmetric chest expansion, No wheeze, rales, ronchi. Cardiovascular: Regular rate and rhythm. No murmurs or rub. Well perfused periphery, warm extremities. No edema. ? Right upper chest wall tender no bruising no crepitus. Abdominal: No focal tenderness. Soft, no objective distension. No palpable masses or obvious organomegaly. ?No guarding, no rebound tenderness or other peritoneal findings. : No flank tenderness. Neuro: Alert. Gross movement of all extremities intact. ? Psych: Calm. Cooperative. MSK: No grossly visible deformity. Vital signs: See flowsheet Vital Signs: Vital Signs - 24 hr 04/18/25 15:39 04/18/25 19:41 Temperature 97.9 F 98 F Pulse Rate 77 65 Respiratory Rate 18 16 Blood Pressure 149/68 H 127/78 Pulse Oximetry 97 95 Oxygen Delivery Method Room Air Room Air BMI result Body Mass Index 32.9 Course Course Course Narrative: This is a Rapid Medical Exam performed in triage by Magali Cortez PA-C. Full HPI, ROS and PE to be performed by primary ED provider. 54-year-old Tamazight-speaking female with a past medical history PE on Eliquis, CKD, bacteremia, asthma, presenting to the ED c/o SOB & lung pain x few days. Had bilateral therapeutic sacroiliac joint injection today w/pain management, had to stop her Eliquis x5 days prior to procedure. Called her email marketing assistant who instructed her to come to the ED PE: Ambulating with steady gait, in NAD/nontoxic appearing Plan: EKG, labs, CXR, SARs Medications Administered Discontinued Medications Generic Name Dose Route Start Last Admin Trade Name Freq PRN Reason Stop Dose Admin Iohexol 65 ml 04/18/25 20:14 04/18/25 20:18 Iohexol 350 Mg/Ml 100 Ml Infus..Btl IV 04/18/25 20:15 45 ml ONCE ONE Administration Medical Decision Making Medical Decision Making MDM Narrative: Medical Decision Making: [age] female history of PE with pleuritic chest pain. Hemodynamics stable. She is quite tender over the left right upper chest wall but we would have to considered PE given the cessation of anticoagulant history of right mainstem. Preliminary Favored Differential Diagnosis: P, musculoskeletal pain, costochondritis, chest wall bruise among additional considered etiologies Testing Interpreted Independently: ?See below for details Radiology or Lab testing Results Reviewed: ?See below for details Consults: ?See below for details Independent Historians/External Chart Reviews: ?See below for details Social Determinants of Health Impacting MDM/Planning: ?See below for details Lab Data 04/18/25 16:09 04/18/25 16:09 Labs: Lab Results 04/18/25 Range/Units 16:09 WBC 6.7 (4.8-10.8) X10*3/uL RBC 4.22 (4.20-5.50) X10*6/uL Hgb 13.9 (12.0-16.0) g/dl Hct 41.7 (37.0-47.0) % MCV 98.8 H (80.0-98.0) fL MCH 32.9 (27.0-33.0) pg MCHC 33.3 (31.0-35.0) g/dl RDW 12.8 (11.0-16.0) % Plt Count 295 (160-400) X10*3/uL MPV 9.2 L (9.4-12.3) fL Immature Gran % (Auto) 0.3 (0.0-0.4) % Neut % (Auto) 85.9 H (45-73) % Lymph % (Auto) 10.4 L (20-40) % [place] % (Auto) 2.4 (2-11) % Eos % (Auto) 0.3 (0-4) % Baso % (Auto) 0.7 (0-2) % Lymph # (Auto) 0.7 L (1.2-4.9) X10*3/uL [place] # (Auto) 0.2 (0.1-1.2) X10*3/uL Eos # (Auto) 0.0 (0.0-0.4) X10*3/uL Baso # (Auto) 0.1 (0.0-0.2) X10*3/uL Abs Immat Gran (auto) 0.02 (0.00-0.03) X10*3/uL Absolute Neuts (auto) 5.8 (2.0-8.3) x10*3/uL Absolute Nucleated RBC 0.000 (0.0-0.012) X10*3/uL Nucleated RBC % (auto) 0.0 (0.0-0.2) /100WBC PT 11.5 (11.2-13.5) SEC INR 0.9 (0.9-1.1) Sodium 143 (135-145) mmol/L Potassium 4.5 (3.3-5.1) mmol/L Chloride 113 H (96-108) mmol/L Carbon Dioxide 24 (22-29) mmol/L Anion Gap 11 L (12-20) BUN 18 H (9-16) mg/dL Creatinine 1.15 (0.5-1.4) mg/dL Estim Creat Clear Calc 56.8 Estimated GFR 49 Random Glucose 116 H (60-115) mg/dL Calcium 9.2 D (8.4-10.2) mg/dL Total Bilirubin 0.4 (0.0-1.0) mg/dL Direct Bilirubin 0.1 (0.0-0.5) mg/dL AST 25 (5-31) U/L ALT 27 (0-31) U/L Alkaline Phosphatase 140 H (39-117) U/L Troponin I High Sens < 2.7 (<3.5-17.0) ng/L Total Protein 6.9 (6.5-8.0) g/dL Albumin 3.9 (3.5-5.0) g/dL Influenza Type A (PCR) NEGATIVE (Negative) Influenza Type B (PCR) NEGATIVE (Negative) RSV RNA Qual (PCR) NEGATIVE (Negative) SARS-CoV-2 RNA (RT-PCR) NEGATIVE (Negative) Discharge Plan Discharge Clinical Impression: Chest pain, musculoskeletal Patient Disposition: Home, Self-Care Instructions: Chest Pain (DC) Additional Instructions: Today we tested you for blood clot in the lung this was negative. You might have esophagitis which is inflammation of your esophagus food pipe. Continue with your home meds. You can rub diclofenac gel (over the counter in the pharmacy). Prescriptions: No Action meclizine 25 mg tablet 25 mg PO TID PRN (Reason: dizziness) 30 Days Qty: 90 1RF gabapentin 800 mg tablet 800 mg PO TID 30 Days Qty: 90 2RF (DME) Adult pull ups 1XL See Rx Instructions .Route .MEDSUPPLY Qty: 240 11RF Rx Instructions: As directed tramadol 50 mg tablet 100 mg PO Q8H PRN (Reason: severe pain) 30 Days Qty: 60 0RF Linzess 290 mcg capsule 290 mcg PO QAM Qty: 30 4RF Eliquis 2.5 mg tablet 2.5 mg PO BID 30 Days Qty: 60 11RF oxycodone 5 mg tablet 5 mg PO Q8-12H PRN (Reason: pain) Qty: 6 0RF Rx Instructions: Partial Fill upon patient request. midodrine 10 mg tablet 10 mg PO TID@0900,1300,1700 Qty: 90 0RF Zepbound 2.5 mg/0.5 mL pen injector 2.5 mg subcut QWEEK Qty: 2 0RF Patient Comments: insurance hasnot approved per patient hasnot started on this med Rx Instructions: for 4 weeks rizatriptan 10 mg tablet,disintegrating See Rx Instructions PO .COMPLEX 30 Days Qty: 10 5RF Rx Instructions: take 1 tab at onset of headache; if no relief may repeat 1 tab after at least 4 hrs; max = 2 tabs/24 hr PO oxycodone 5 mg tablet 5 mg PO Q8-12H PRN (Reason: pain) Qty: 12 0RF Rx Instructions: Partial Fill upon patient request. Take one to tw0 tabs every 8-12 hours for pain Vraylar 4.5 mg capsule 4.5 mg PO DAILY topiramate 25 mg tablet 25 mg PO DAILY diphenhydramine HCl 25 mg capsule 50 mg PO BEDTIME verapamil 40 mg tablet 40 mg PO BID lorazepam 1 mg tablet 1 mg PO TID hyoscyamine sulfate 0.125 mg tablet,disintegrating 0.125 mg PO BID PRN (Reason: abdominal discomfort) Qty: 60 2RF trazodone 50 mg tablet 50 mg PO BEDTIME PRN (Reason: insomnia) 30 Days Qty: 30 1RF lidocaine 5 % adhesive patch,medicated 1 patch topical DAILY Qty: 30 0RF Rx Instructions: leave on most painful area for up to 12 hrs furosemide [Lasix] 20 mg tablet 20 mg PO DAILY PRN (Reason: Edema) albuterol sulfate [Ventolin HFA] 90 mcg/actuation HFA aerosol inhaler 2 puff inhalation Q6H PRN (Reason: Shortness Of Breath Or Wheezing) solifenacin [Vesicare] 10 mg tablet 10 mg PO DAILY Qty: 30 5RF cholecalciferol (vitamin D3) [Vitamin D3] 25 mcg (1,000 unit) capsule 25 mcg PO DAILY 90 Days Qty: 90 3RF melatonin 5 mg tablet 10 mg PO BEDTIME Qty: 60 0RF (DME) nidra tonic motor device RLS See Rx Instructions .Route .MEDSUPPLY Qty: 2 0RF Rx Instructions: As directed Interventions: ED Discharge Assessment Last Done: 04/18/25 21:23 Discharge Date/Time: 04/18/25 21:26 Print Language: Tamazight
--- NOTE | 2025-04-18 15:42 | ECG_ITS ---
Test Reason : sob Blood Pressure : */* mmHG Vent. Rate : 65 BPM Atrial Rate : 65 BPM P-R Int : 142 ms QRS Dur : 72 ms QT Int : 408 ms P-R-T Axes : 39 45 19 degrees QTcB Int : 424 ms Normal sinus rhythm Low voltage QRS Borderline ECG When compared with ECG of 11-Dec-2024 19:17, No significant change was found Referred By: Magali Cortez Electronically Signed By: Renny Rothman
[2025-04-18 16:16] LABS: Hematocrit 41.7 % (37.0-47.0); Hemoglobin 13.9 g/dl (12.0-16.0); Imm Gran Abs Auto 0.02 X10*3/uL (0.00-0.03); Imm Gran Pct Auto 0.3 % (0.0-0.4); Lymphocytes Absolute Auto 0.7 X10*3/uL (1.2-4.9); MANUAL DIFF FLAG NO; Mean Corpuscular HGB Conc 33.3 g/dl (31.0-35.0); Mean Corpuscular Hemoglobin 32.9 pg (27.0-33.0); Mean Corpuscular Volume 98.8 fL (80.0-98.0); NRBC Abs Auto 0.000 X10*3/uL (0.0-0.012); NRBC Pct Auto 0.0 /100WBC (0.0-0.2); Platelet Count 295 X10*3/uL (160-400); Red Blood Count 4.22 X10*6/uL (4.20-5.50); White Blood Count 6.7 X10*3/uL (4.8-10.8)
[2025-04-18 16:26] LABS: INTERNATIONAL NORM RATIO 0.9 (0.9-1.1); Prothrombin Time 11.5 SEC (11.2-13.5)
[2025-04-18 16:36] LABS: Alanine Aminotransferase 27 U/L (0-31); Albumin Level 3.9 g/dL (3.5-5.0); Alkaline Phosphatase 140 U/L (39-117); Anion Gap 11 (12-20); Aspartate Amino Transferase 25 U/L (5-31); Blood Urea Nitrogen 18 mg/dL (9-16); Calcium 9.2 mg/dL (8.4-10.2); Carbon Dioxide 24 mmol/L (22-29); Chloride 113 mmol/L (96-108); Creatinine Clr Calc Pharmacy 56.8; Estimated Glomerular Filt Rate 49; Potassium 4.5 mmol/L (3.3-5.1); Sodium 143 mmol/L (135-145); Total Protein 6.9 g/dL (6.5-8.0)
[2025-04-18 16:57] LABS: Troponin-I High Sensitivity < 2.7 ng/L (<3.5-17.0)
[2025-04-18 17:11] LABS: Resp Syncy Virus RNA Qual PCR NEGATIVE (Negative); SARS COV2 PCR INHOUSE NEGATIVE (Negative)
--- OUTSIDE RECORDS SUMMARY | 2025-04-18 19:34 | XMS_ITS | Clinical Summary ---
Author Organization [facility] Address [address] [address] Phone Care Team Providers Care Assistant Kitchen Manager Name Role Phone Hung Montelongo MD Primary Care Provider +1- [phone] Allergies Active Allergy Reactions Criticality Noted Date [...] Visit [facility] [address] [place] [id number] Alejandro Benz MD [address] [facility] [address] [place] [id number] Health Maintenance Due Date Last Done Comments Breast Cancer Screening 1970 Hepatitis B Vaccine (1 of 3 - 19+ 3-dose series) 11/17 Pneumococcal Vaccine: 50+ Years (1 of 2 - PCV) 989 Colorectal Cancer Screening: Annual FOBT 2018 Colorectal Cancer Screening: Colonoscopy 2018 Colorectal Cancer Screening: Sigmoidoscopy 2018 Influenza Vaccine (#1) 2024 [place] [address] [facility] Medicaid Care Teams Assistant Kitchen Manager Relationship Specialty Start Date End Date Hung Montelongo MD [address] [place] [id number] PCP - General 05/11/20
--- OUTSIDE RECORDS SUMMARY | 2025-04-18 19:34 | XMS_ITS | Clinical Summary ---
Author Organization [facility] Address [address] [place] [id number] Phone Care Team Providers Care Roadway Designer Name Role Phone Hung Montelongo MD Primary Care Provider +1 -[phone] Allergies No known active allergies Medications VENTOLIN HFA 90 mcg/actuation inhaler TAKE 2 PUFFS INHALED EVERY 6 HOURS NEEDED FOR SHORTNESS OF BREATH OR WHEEZING FOR 30 DAYS 3 Active VITAMIN D3 25 mcg (1,000 unit) capsule TOME WU C PSULA TODOS LOS D 4 Active ferrous sulfate 325 mg (65 mg [place] iron) tablet TOME WU TABLETA TODOS LOS [...] topic Medical Devices Not on file Insurance [facility] [place] [address] [employer] [facility] A[facility] Care Teams Roadway Designer Relationship Specialty Start Date End Date Hung Montelongo MD [address] [place] [address] [place] [address] PCP - General Internal Medicine 07/24/23 Additional Source Comments The information contained in this document represents components of the legal health record. It is not the complete legal health record.[facility]
--- OUTSIDE RECORDS SUMMARY | 2025-04-18 19:34 | XMS_ITS | Encounter Summary ---
Author Organization [employer] Address [address] [facility] [address] [place] [address] Care Team Providers Care Speech Writer Name Role Phone Unavailable Primary Care Provider Unavailabl e Encounter Details Date Type Department Care Team (Latest Contact Info) Description 11/30/2020 Abstract [facility] CONVERSIONS Dental, Provider, DDS Social [...] Description 06/05/2025 12:45 PM EST Office Visit [facility] ADULT DENTAL [address] [place] [address] Chari Greenwood [address] [place] [address] documented as of this encounter Visit Diagnoses Not on filedocumented in this encounter
--- OUTSIDE RECORDS SUMMARY | 2025-04-18 19:34 | XMS_ITS | Encounter Summary ---
Author Organization [employer] Address [address] [facility] [address] [place] [address] Care Team Providers Care Chemistry Account Manager Name Role Phone Unavailable Primary Care Provider Unavailabl e Encounter Details Date Type Department Care Team (Latest Contact Info) Description 01/20/2022 Abstract [facility] CONVERSIONS Dental, Provider, DDS Social History Tobacco [...] 06/05/2025 12:45 PM EST Office Visit [facility] ADULT DENTAL [address] [place] [address] Chari Greenwood [address] [place] [address] documented as of this encounter Visit Diagnoses Not on filedocumented in this encounter
--- OUTSIDE RECORDS SUMMARY | 2025-04-18 19:34 | XMS_ITS | Clinical Summary ---
Author Organization [employer] Address [address] [facility] [address] [place] [address] Care Team Providers Care Deputy Attorney General Name Role Phone Unavailable Primary Care Provider [...] Description 06/05/2025 12:45 PM EST Office Visit [facility] ADULT DENTAL [address] [place] [address] Timo, Chari [address] [place] [address] Health Maintenance Due Date Last Done Comments [...] Most Recently Relevant to Health Maintenance Insurance [facility] MEDICAID STAND ADULT
[2025-04-18 19:41] VITALS: BP 127/78; PULSE 65; RESP 16; TEMP 36.6; O2SAT 95
[2025-04-18] MEDS: iohexoL 350 MG/ML 100 ML INFUS..BTL 65 ML IV (20:18)
[2025-04-18 21:17] VITALS: BP 133/82; PULSE 62; RESP 16; TEMP 36.9; O2SAT 97
[2025-04-18 21:23] VITALS: BP 133/82; PULSE 62; RESP 16; TEMP 36.9; O2SAT 97
== END 2025-04-18 21:26 | disposition home or self-care (01) ==
PROVIDERS: Physician Assistant; Emergency Provider Emergency Medicine; PCP Internal Medicine
DX: R07.89 Other chest pain (principal); N18.30 Chronic kidney disease, stage 3 unspecified; Z86.711 Personal history of pulmonary embolism; Z79.01 Long term (current) use of anticoagulants; Z98.890 Other specified postprocedural states
CPT/HCPCS: 71046; 71275; 80048; 80076; 84484; 85025; 85610; 87637; 93005; 99285; Q9967

== ENCOUNTER → 2025-04-18 15:42 | Outpatient (BNV) | payer OTHER, SELFPAY | PROVIDERS: PCP Internal Medicine; Visit Provider Radiology Diagnostic Radiology | DX: R07.1 Chest pain on breathing (principal); R06.02 Shortness of breath | CPT/HCPCS: 71046; 71275 ==

== ENCOUNTER → 2025-04-18 15:42 | Outpatient (BNV) | payer OTHER, SELFPAY | PROVIDERS: Emergency Provider Emergency Medicine; PCP Internal Medicine; Visit Provider Internal Medicine Cardiovascular Disease | DX: R06.02 Shortness of breath (principal) | CPT/HCPCS: 93010 ==